=== PATIENT | female | born 1945 | race Caucasian/White ===

== ENCOUNTER → 2017-09-17 07:10 | Outpatient (CLI) | payer MEDICARE, OTHER, SELFPAY ==
[2017-09-17 09:12] LABS: AST(SGOT) 15 U/L (15-37); Alanine Aminotransfer ALT/SGPT 20 U/L (13-56); Albumin, Serum 3.1 g/dL (3.2-5.0); Alkaline Phosphatase 123 U/L (45-117); Anion Gap 6 (5-15); BUN 13 mg/dL (7-18); BUN/Creat Ratio 20.2 RATIO (10-20); Bilirubin, Direct 0.13 mg/dL (0.00-0.30); Calcium,Total 9.6 mg/dL (8.5-10.1); Chloride 105 mmol/L (98-107); Cholesterol 107 mg/dL (200); Creatinine, Serum 0.64 mg/dL (0.55-1.02); EST Glomerular Filtration Rate 96 mL/min (>60); Est Glom Filt Rate - Afr Amer 117 mL/min (>60); Globulin 3.8 g/dL (2.2-4.2); Glucose 91 mg/dL (74-106); High Density Lipoprotein 41 mg/dL; Potassium 3.9 mmol/L (3.5-5.1); Protein, Total 6.9 g/dL (6.4-8.2); Sodium Level 143 mmol/L (136-145); Triglycerides 143 mg/dL; Very Low Density Lipoprotein 29 mg/dL (5-40)
== END ==
PROVIDERS: Family Provider Family Medicine; PCP Family Medicine; Visit Provider Internal Medicine Cardiovascular Disease
DX: I25.10 Atherosclerotic heart disease of native coronary artery without angina pectoris (principal); E78.00 Pure hypercholesterolemia, unspecified
CPT/HCPCS: 36415; 80048; 80061; 80076

== ENCOUNTER → 2018-05-12 07:47 | Outpatient (CLI) | payer MEDICARE, OTHER, SELFPAY ==
[2017-09-03 10:37] VITALS: BMI 36.9
[2018-05-12 09:09] LABS: AST(SGOT) 19 U/L (15-37); Alanine Aminotransfer ALT/SGPT 21 U/L (13-56); Albumin, Serum 3.3 g/dL (3.2-5.0); Alkaline Phosphatase 128 U/L (45-117); Cholesterol 117 mg/dL (200); Globulin 3.6 g/dL (2.2-4.2); High Density Lipoprotein 40 mg/dL; Protein, Total 6.9 g/dL (6.4-8.2); Triglycerides 164 mg/dL; Very Low Density Lipoprotein 33 mg/dL (5-40)
== END ==
PROVIDERS: Family Provider Family Medicine; PCP Family Medicine; Referring Provider Nurse Practitioner Family; Visit Provider Nurse Practitioner Family
DX: E78.5 Hyperlipidemia, unspecified (principal)
CPT/HCPCS: 36415; 80061; 80076

== ENCOUNTER → 2019-08-01 07:49 | Outpatient (CLI) | payer MEDICARE, OTHER, SELFPAY ==
[2018-09-09 10:43] VITALS: BMI 36.9
[2019-08-01 09:11] LABS: AST(SGOT) 17 U/L (15-37); Alanine Aminotransfer ALT/SGPT 18 U/L (13-56); Alkaline Phosphatase 124 U/L (45-117); Bilirubin, Direct 0.21 mg/dL (0.00-0.30); Cholesterol 121 mg/dL (200); Globulin 3.7 g/dL (2.2-4.2); High Density Lipoprotein 40 mg/dL; Protein, Total 6.7 g/dL (6.4-8.2); Triglycerides 122 mg/dL; Very Low Density Lipoprotein 24 mg/dL (5-40)
== END ==
PROVIDERS: PCP Family Medicine; Referring Provider Internal Medicine Cardiovascular Disease; Visit Provider Internal Medicine Cardiovascular Disease
DX: E78.00 Pure hypercholesterolemia, unspecified (principal)
CPT/HCPCS: 36415; 80061; 80076

== ENCOUNTER → 2019-10-06 09:56 | Outpatient (CLI) | payer MEDICARE, OTHER, SELFPAY ==
[2019-09-15 10:29] VITALS: BMI 36.2
--- NOTE | 2019-10-06 09:58 | ECHOD_ITS ---
Reason For Study: HTN Procedure This was a 2D Doppler, Color Flow transthoracic echocardiogram. Exam performed in department. Left Ventricle Normal LV size. Mild concentric left ventricular hypertrophy. Left ventricular systolic function is normal. The estimated ejection fraction is 65 %. Stage 1 diastolic dysfunction. No regional wall motion abnormalities noted. Right Ventricle Normal RV size. Normal systolic function. Atria Normal left atrium. Normal right atrium. Mitral Valve Normal mitral valve. Tricuspid Valve Normal tricuspid valve. Mild tricuspid valve insufficiency. Aortic Valve Normal aortic valve. Trisinus/trileaflet aortic valve. Pulmonic Valve Normal pulmonic valve. Great Vessels Normal aortic root. The pulmonary artery is normal size. Normal inferior vena cava. Pericardium/Pleural No pericardial effusion. MMode/2D Measurements & Calculations LVIDd: 3.3 cm IVSd: 1.3 cm Ao root diam: 3.6 cm LVIDs: 2.3 cm LVPWd: 1.3 cm RVDd: 2.8 cm FS: 30.1 % LAV(MOD-bp): 45.9 ml LVAd ap4: 28.2 cm2 SV(MOD-sp4): 53.1 ml LAV(MOD-bp) Indexed: 24.3 ml/m2 EDV(MOD-sp4): 79.2 ml LAV(MOD-sp2): 40.7 ml EDV(sp4-el): 84.8 ml LAV(MOD-sp4): 43.6 ml LVAs ap4: 14.3 cm2 ESV(MOD-sp4): 26.1 ml ESV(sp4-el): 27.8 ml EF(MOD-sp4): 67.0 % EF(sp4-el): 67.3 % SV(sp4-el): 57.0 ml LA A4 area: 14.9 cm2 LA dimension(2D): 4.0 cm RA A4 area: 10.9 cm2 Time Measurements MV dec time: 0.34 sec Doppler Measurements & Calculations MV E max celestine: 55.1 cm/sec Lat Peak E' Celestine: 2.6 cm/sec Med Peak E' Celestine: 3.0 cm/sec MV A max celestine: 112.8 cm/sec E/E' lat: 20.8 E/E' med: 18.2 MV E/A: 0.49 MV V2 max: 132.2 cm/sec Ao V2 max: 130.2 cm/sec LV V1 max: 124.3 cm/sec MV max P.0 mmHg Ao max P.8 mmHg LV V1 max P.2 mmHg MV V2 mean: 58.0 cm/sec MV mean P.7 mmHg MV V2 VTI: 28.3 cm PA V2 max: 92.3 cm/sec TR max celestine: 213.7 cm/sec TR max P.5 mmHg Interpretation Summary Normal LV size. Mild concentric left ventricular hypertrophy. Left ventricular systolic function is normal. The estimated ejection fraction is 65 %. Mild tricuspid valve insufficiency. Stage 1 diastolic dysfunction. Ordering Physician: Elie Davis Referring Physician: TRACEE HOFFMANN Performed By: Eduin RDCS, SREE, Melanie and Student
== END ==
PROVIDERS: PCP Family Medicine; Referring Provider Internal Medicine Cardiovascular Disease; Visit Provider Internal Medicine Cardiovascular Disease
DX: I25.10 Atherosclerotic heart disease of native coronary artery without angina pectoris (principal); I10 Essential (primary) hypertension
CPT/HCPCS: 93306

== ENCOUNTER → 2020-01-30 16:36 | Outpatient (CLI) | payer MEDICARE, OTHER, SELFPAY ==
[2019-09-15 10:29] VITALS: BMI 36.2
--- NOTE | 2020-01-30 16:39 | RAD_ITS ---
HISTORY: PT GOT SCRATCHED ALL OVER HAND BY A CAT, REDNESS PAIN COMPARISON: None FINDINGS: # of images incl. paperwork: 3 XR Hand Min 3 Views: Right BONE AND JOINTS: No acute fracture or subluxation. Minimal lateral angulation of the DIP joint middle finger appears chronic. There is joint space narrowing and osteophyte formation SOFT TISSUES: Unremarkable. No radiopaque foreign body. RAD/Hand Min 3 Views IMPRESSION: No acute pathology If symptoms persist, repeat study in 10-14 days or sooner if clinically indicate at [id number] Reported and signed by: Fidelina Arias DO Electronically Signed: Fidelina Arias DO at 5:52 EST Tel , Service support ,
== END ==
PROVIDERS: PCP Family Medicine; Referring Provider Family Medicine; Visit Provider Family Medicine
DX: M25.541 Pain in joints of right hand (principal)
CPT/HCPCS: 73130

== ENCOUNTER → 2020-03-16 11:43 | Outpatient (CLI) | payer MEDICARE, OTHER, SELFPAY ==
[2019-09-15 10:29] VITALS: BMI 36.2
--- NOTE | 2020-03-16 11:49 | VDLE_ITS ---
Reason For Study: Pain RLE RIGHT GSV is normal. CFV is compressible, spontaneous, phasic, competent and demonstrates normal augmentation. FV is compressible, spontaneous, phasic, competent and demonstrates normal augmentation. POP V is compressible, spontaneous, phasic, competent and demonstrates normal augmentation. T/P Trunk is compressible. PTV is compressible. RT PerV is compressible. Procedure This is a venous duplex using B-mode, color flow and spectral Doppler. Exam performed in department. A preliminary report was called and/or faxed to Antoine. Interpretation Summary Deep veins of the right lower extremity are patent and compressible segmentally. There is no evidence of right lower extremity deep vein thrombosis. Valvular competence appears intact within the proximal deep venous system on the right . The right great saphenous vein appears patent and compressible segmentally. Ordering Physician: Jess Schultz Referring Physician: Lilly Fletcher M.D. Performed By: Yina Diaz RVT
== END ==
PROVIDERS: PCP Family Medicine; Referring Provider Registered Nurse; Visit Provider Registered Nurse
DX: M79.661 Pain in right lower leg (principal)
CPT/HCPCS: 93971

== ENCOUNTER → 2020-07-11 07:48 | Outpatient (CLI) | payer MEDICARE, SELFPAY ==
[2019-09-15 10:29] VITALS: BMI 36.2
[2020-07-11 09:02] LABS: AST(SGOT) 9 U/L (15-37); Alanine Aminotransfer ALT/SGPT 18 U/L (13-56); Alkaline Phosphatase 117 U/L (45-117); Bilirubin, Direct 0.15 mg/dL (0.00-0.30); Cholesterol 122 mg/dL (200); Globulin 3.7 g/dL (2.2-4.2); High Density Lipoprotein 49 mg/dL; Protein, Total 6.7 g/dL (6.4-8.2); Triglycerides 138 mg/dL; Very Low Density Lipoprotein 28 mg/dL (5-40)
== END ==
PROVIDERS: PCP Family Medicine; Referring Provider Internal Medicine Cardiovascular Disease; Visit Provider Internal Medicine Cardiovascular Disease
DX: E78.00 Pure hypercholesterolemia, unspecified (principal)
CPT/HCPCS: 36415; 80061; 80076

== ENCOUNTER 2020-08-03 13:06 | Emergency (ER) | payer MEDICARE, SELFPAY ==
[2019-09-15 10:29] VITALS: BMI 36.2
[2020-08-03 13:07] VITALS: BP 157/75; PULSE 72; RESP 18; TEMP 36.6; O2SAT 98; BMI 40.6
--- NOTE | 2020-08-03 13:29 | EKG12_ITS ---
Test Reason : CP Blood Pressure : / mmHG Vent. Rate : 064 BPM Atrial Rate : 064 BPM P-R Int : 142 ms QRS Dur : 110 ms QT Int : 396 ms P-R-T Axes : 056 -22 027 degrees QTc Int : 408 ms Normal sinus rhythm Possible Left atrial enlargement Incomplete right bundle branch block Left ventricular hypertrophy Cannot rule out Septal infarct , age undetermined Abnormal ECG Confirmed by CLAUDIA OHARA, FILIPE ([id number]), assignment desk editor MU CERVANTES ([id number]) on 08/07/2020 10:01:27 AM Referred By: ARSEN Confirmed By:FILIPE TAYLOR MD
--- NOTE | 2020-08-03 13:32 | ED.VIS.CHEST ---
HPI History of Present Illness Chief Complaint: Palpitations Informant: patient Onset/Context/Timing Onset: Today Timing: Intermittent Location: Substernal Current Severity: Mild Maximum Severity: Mild Narrative Narrative: 75-year-old female history of CAD, DC with prior angioplasty and history of hypertension. States that around 3:00 this morning she awoke and accelerated heart rate that is since resolved. She has had some intermittent chest tightness. She denies any shortness of breath. She denies any recent illness. She denies any nausea, vomiting, diarrhea or fever. Prior Similar Symptoms: Yes Recent Illness/Hospitalization: No PE Risk Factors: Negative for Recent Travel/Surgery, Recent Immobilization, Prior DVT or PE, Cancer and OCP + Smoking + >/=35 TAD Risk Factors: Negative for Marfan's Syndrome [facility] Medical History (Updated 08/03/20 @ 17:[address] Jay Hair MD) Acute coronary syndrome Atherosclerotic heart disease of [place] coronary artery without angina pectoris Chest pain Essential (primary) hypertension GERD (gastroesophageal reflux disease) Heart murmur, systolic Hyperlipidemia Morbid obesity with BMI of 40.0-44.9, adult Obesity Osteoarthritis Home Medications aspirin 81 mg PO QHS 10/25/15 [History Last Taken 10/24/15] nitroglycerin 0.4 mg SUBLINGUAL Q5M PRN #1 tab 10/26/15 [Rx Last Taken Unknown] potassium gluconate 595 mg (99 mg) tablet 595 mg PO DAILY PRN 09/09/18 [History Last Taken Unknown] atorvastatin 40 mg tablet 40 mg PO QHS #90 tab 09/09/19 [Rx Last Taken Unknown] carvedilol 12.5 mg tablet 12.5 mg PO BID #180 tab 09/09/19 [Rx Last Taken Unknown] hydrochlorothiazide 25 mg tablet 25 mg PO DAILY #90 tab 09/15/19 [Rx Last Taken Unknown] lisinopril 20 mg tablet 20 mg PO BID #180 tab 09/15/19 [Rx Last Taken Unknown] omeprazole 20 mg capsule,delayed release 20 mg PO DAILY #90 cap 09/15/19 [Rx Last Taken Unknown] Allergy/AdvReac Type Severity Reaction Status Date / Time No Known Allergies Allergy Verified 09/15/19 10:30 Family History Father CAD (coronary artery disease) Mother CHF (congestive heart failure) Sister Hypertension Surgical History History of coronary angioplasty (09/20/07) History of laparoscopic cholecystectomy History of left heart catheterization (06/04/08) History of total hysterectomy Social History Smoking Status: Never smoker alcohol intake: never substance use type: does not use ROS ROS ED ROS Narrative Patient denies any recent illness. Review of Systems ROS Unobtainable: Denies due to encephalopathy Constitutional Constitutional ED: Denies chills or fever(s) Eyes Eyes: Reports none ENT ENT ED: Denies ear pain or sore throat Cardiovascular Cardiovascular: Reports as per HPI, chest pain and palpitations Respiratory/Chest Respiratory/Chest: Denies cough or dyspnea Gastrointestinal Gastrointestinal: Denies abdominal pain, diarrhea, nausea or vomiting Genitourinary Genitourinary ED: Denies dysuria Musculoskeletal Musculoskeletal: Reports myalgias Integumentary Denies rash Neurologic Neurologic: Denies headache(s) Psychiatric Psychiatric: Denies depression Endocrine Endocrinology: Denies polyuria Hematologic/Lymphatic Hematologic/Lymphatic: Denies easy bruising Allergic/Immunologic Allergic/Immunologic ED: Denies urticaria EXAM Physical Exam Narrative Exam Narrative: Older female no acute distress vital signs stable afebrile. Exam unremarkable. Const Vital Signs: 08/03/20 13:07 08/03/20 13:39 08/03/20 13:40 Temperature 98 F Temperature Source Temporal Pulse Rate 72 Respiratory Rate 18 Respiratory Effort Normal Non-Labored Respiratory Pattern Normal Blood Pressure 157/75 H Blood Pressure Mean 102 Pulse Ox 98 Oxygen Delivery Method Room Air Room Air 08/03/20 16:22 Temperature Temperature Source Pulse Rate 62 Respiratory Rate 17 Respiratory Effort Respiratory Pattern Blood Pressure 154/75 H Blood Pressure Mean 101 Pulse Ox 97 Oxygen Delivery Method Room Air Positive well nourished and well developed General Appearance ED: well developed HEENT normocephalic and atraumatic; Negative for tenderness Eyes PERRL and EOMs intact bilaterally Neck no lymphadenopathy, supple and no JVD General: Negative for tenderness Chest Wall inspection of chest normal Resp normal respiratory effort and clear to auscultation bilaterally Cardio regular rate, regular rhythm, S1 normal heart sound, S2 normal heart sound and no murmurs Rate: Negative for bradycardia or tachycardic Rhythm: Negative for abnormal rhythm GI normal to inspection, nondistended, normoactive bowel sounds, soft to palpation, non-tender, non-distended and no masses Back/Spine no CVA tenderness Extremity normal to inspection General Extremety ED: Negative for edema or tenderness General Extremity: Negative for edema Neuro oriented x3 and CN's II-XII intact bilaterally Sensorium / Orientation: awake, alert, oriented to person, oriented to place and oriented to time Motor Exam: strength 5/5 throughout Psych mental status grossly normal Skin no rashes or lesions noted Heart Score History: Slightly/Non-Suspicious ECG: Normal Age: >/= 65 years Risk Factors: 1 or 2 Risk Factors Score: 3 MDM MDM MDM Narrative Medical decision making narrative: Older female no acute distress. Exam unremarkable. Undergo cardiac work-up. Her initial EKG is a sinus rhythm rate of 64. Incomplete right bundle branch block. Unchanged from prior EKG from October 2015. Repeat exam patient is doing well at 4:57 PM. Patient states she is feeling fine. Her exam is unchanged. She states that it feels like she may have had a chest cold. She comfortable with her being discharged home. Lab Data Lab results narrative: CBC unremarkable white count of 7 and hemoglobin of 12.9. Electrolytes unremarkable normal creatinine and gap. Troponin normal. Labs: Laboratory Results - last 24 hr 08/03/20 08/03/20 08/03/20 13:36 13:36 13:53 WBC Cancelled 7.0 Corrected WBC Cancelled RBC Cancelled 4.33 Hgb Cancelled 12.9 Hct Cancelled 40.1 MCV Cancelled 92.6 MCH Cancelled 29.8 MCHC Cancelled 32.2 RDW Std Deviation Cancelled 41.2 RDW Coeff of Cory Cancelled 12.2 Plt Count Cancelled 228 MPV Cancelled 9.6 Immature Gran % (Auto) Cancelled 0.400 Neut % (Auto) Cancelled 78.5 H Lymph % (Auto) Cancelled 11.7 L Evangeline % (Auto) Cancelled 8.1 Eos % (Auto) Cancelled 1.0 Baso % (Auto) Cancelled 0.3 Absolute Neuts (auto) Cancelled 5.5 Absolute Lymphs (auto) Cancelled 0.82 L Total Counted Cancelled Neutrophils % (Manual) Cancelled Band Neutrophils % Cancelled Lymphocytes % (Manual) Cancelled Monocytes % (Manual) Cancelled Eosinophils % (Manual) Cancelled Basophils % (Manual) Cancelled Metamyelocytes % Cancelled Myelocytes % Cancelled Promyelocytes % Cancelled Blast Cells % Cancelled Plasma Cell % (Manual) Cancelled Other Cells % Cancelled Nucleated RBC % Cancelled 0 Nucleated RBCs/100 WBC Cancelled Differential Comment Cancelled Diff Path Review Cancelled Hypersegmented Neuts Cancelled Atypical Lymphocytes Cancelled Reactive Lymphocytes Cancelled Smudge Cells Cancelled Toxic Granulation Cancelled Toxic Vacuolation Cancelled Dohle Bodies Cancelled [place] Rods Cancelled Platelet Estimate Cancelled Plt Morphology Comment Cancelled RBC Morphology Cancelled Polychromasia Cancelled Hypochromasia Cancelled Poikilocytosis Cancelled Basophilic Stippling Cancelled Anisocytosis Cancelled Microcytosis Cancelled Macrocytosis Cancelled Spherocytes Cancelled Sickle Cells Cancelled Target Cells Cancelled Tear Drop Cells Cancelled Ovalocytes Cancelled Stomatocytes Cancelled Reich-Derwood Bodies Cancelled Blanka Cells Cancelled Bite Cells Cancelled Crenated Cell Cancelled Acanthocytes (Spur) Cancelled Rouleaux Cancelled Schistocytes Cancelled Sodium 139 Potassium 4.6 Chloride 107 Carbon Dioxide 28.0 Anion Gap 4 L BUN 15 Creatinine 0.56 Estim Creat Clear Calc 34.38 Est GFR (MDRD) Af Amer 134 Est GFR (MDRD) Non-Af 111 BUN/Creatinine Ratio 26.6 H Glucose 107 H Calcium 10.0 Troponin I < 0.015 Radiography Chest X-Ray - ED: 1 View, Read by ED Physician, Read by Radiologist, Heart, Lungs, Mediastinum, Bony Structures, No Acute Disease and Chronic Changes Diagnostic Testing: Radiology Impression Chest X-Ray 08/03/20 14:02 IMPRESSION: Mild cardiomegaly. The lungs are clear. Electronically Signed: Andrew Paz MD at 14:17 EDT , Service support , EKG Initial EKG: Attestation: I personally reviewed and interpreted this EKG as follows: Interpretation: Sinus Rhythm and No Acute Injury Pattern Prior EKG tracings: available for review Prior: Unchanged Treatment and Re-Evaluation Comments:: Normal sinus rhythm rate of 64 with an incomplete right bundle branch block. Unchanged from prior EKGs. Discharge Plan Triage Chief Complaint: Palpitations ED Provider: Jay Hair Dx/Rx/DC Orders Clinical Impression: Chest pain, Heart palpitations Instructions: ED Chest Pain, Uncertain Cause, ED Palpitations Prescriptions: No Action potassium gluconate 595 mg (99 mg) tablet 595 mg PO DAILY PRNRF: 0 omeprazole 20 mg capsule,delayed release(DR/EC) 20 mg PO DAILY Qty: 90 RF: 3 lisinopril 20 mg tablet 20 mg PO BID Qty: 180 RF: 4 hydrochlorothiazide 25 mg tablet 25 mg PO DAILY Qty: 90 RF: 3 aspirin 81 MG tablet,chewable 81 mg PO QHS RF: 0 nitroglycerin 0.4 MG tablet 0.4 mg SUBLINGUAL Q5M PRN (Reason: Chest Pain) Qty: 1 RF: 0 atorvastatin 40 mg tablet 40 mg PO QHS Qty: 90 RF: 3 carvedilol 12.5 mg tablet 12.5 mg PO BID Qty: 180 RF: 3 Primary Care Provider: Lilly Fletcher Referrals: Lilly Fletcher MD [Primary Care Provider] - 3-5 Days if not improving Activity Restrictions/Additional Instructions: Return emergency room if you are feeling worse. Follow-up your primary care physician. All your test today are normal. Disposition Disposition: Home, self care
[2020-08-03] MEDS: Aspirin 81 MG TAB.CHEW 324 MG PO (13:55)
[2020-08-03 14:02] LABS: Anion Gap 4 (5-15); BUN 15 mg/dL (7-18); BUN/Creat Ratio 26.6 RATIO (10-20); Chloride 107 mmol/L (98-107); Creatinine, Serum 0.56 mg/dL (0.55-1.02); EST Glomerular Filtration Rate 111 mL/min (>60); Est Glom Filt Rate - Afr Amer 134 mL/min (>60); Estimated Creatinine Clearance 34.38 ml/min; Glucose 107 mg/dL (74-106); Potassium 4.6 mmol/L (3.5-5.1); Sodium Level 139 mmol/L (136-145)
--- NOTE | 2020-08-03 14:02 | RAD_ITS ---
STUDY: X-RAY CHEST REASON FOR EXAM: Female, 75 years old. Chest pain TECHNIQUE: Single AP portable view of the chest. COMPARISON: Comparison is made with prior study dated 10/25/2015. FINDINGS: EKG electrodes are seen. The lungs are clear and expanded. There is no demonstrated pleural abnormality. There is mild cardiac enlargement. Normal mediastinum and mindy. Normal visualized pulmonary arteries. There is atherosclerotic calcification of the aortic arch with tortuosity. There are diffuse degenerative changes of the visualized thoracic spine. Mild dextroscoliosis. There is degenerative osteoarthritis of the bilateral shoulders. There is no demonstrated abnormality of the visualized soft tissue structures of the upper abdomen. RAD/Chest 1 View (Portable) IMPRESSION: Mild cardiomegaly. The lungs are clear. Electronically Signed: Andrew Paz MD at 14:17 EDT , Service support ,
[2020-08-03 14:04] LABS: Absolute Lymphocyte Count 0.82 X10^3/uL (0.83-4.51); Absolute Neutrophil Count 5.5 X10^3/uL (2.0-7.7); Basophil# 0.02 X10^3/uL; Basophil% 0.3 % (0-1); Eosinophil# 0.07 X10^3/uL; Hematocrit 40.1 % (37-47); Hemoglobin 12.9 g/dL (12.0-15.0); Lymphocyte # 0.82 X10^3/ul (0.83-4.51); Lymphocyte % 11.7 % (19-41); Mean Corp Hgb Conc 32.2 g/dL (32-36); Mean Corpuscular Hgb 29.8 pg (27.0-32.0); Mean Corpuscular Volume 92.6 fL (81-99); Mean Platelet Vol. 9.6 fl (6.2-12.0); Monocyte# 0.57 X10^3/uL; Monocyte% 8.1 % (0-10); NRBC Flagged by Analyzer 0 % (0-5); Neutrophil # 5.49 X10^3/uL (2.7-7.7); Neutrophil % 78.5 % (47-70); Platelet Count 228 K/mm3 (150-450); RBC Distribution Width CV 12.2 % (11.6-14.6); RBC Distribution Width SD 41.2 fl (35.1-43.9); Red Blood Count 4.33 M/mm3 (4.2-5.4)
[2020-08-03 16:22] VITALS: BP 154/75; PULSE 62; RESP 17; O2SAT 97
[2020-08-03 17:04] VITALS: BP 168/76; PULSE 65; RESP 14; O2SAT 97
== END 2020-08-03 17:13 | disposition home or self-care (01) ==
PROVIDERS: Emergency Provider Emergency Medicine; PCP Family Medicine
DX: R07.9 Chest pain, unspecified (principal); R00.2 Palpitations; I25.10 Atherosclerotic heart disease of native coronary artery without angina pectoris; E66.01 Morbid (severe) obesity due to excess calories; Z68.41 Body mass index [BMI] 40.0-44.9, adult
CPT/HCPCS: 71045; 80048; 84484; 85025; 93005; 99285; A4216

== ENCOUNTER 2021-05-08 06:58 | Outpatient (CLI) | payer MEDICARE, SELFPAY ==
--- NOTE | 2021-05-08 17:26 | STRESSREP ---
Stress Test Report Pharmacologic myocardial perfusion stress test. 75-year-old lady with a history of coronary artery disease. Stress protocol: Resting KG demonstrates normal sinus rhythm with a rate of 65 bpm normal intervals are noted resting blood pressure is 128/94 mmHg. 0.4 mg of regadenoson was infused per usual protocol followed by rapid intravenous saline flush injection continuous EKG monitoring was performed. The maximum heart rate attained was 90 bpm which was 62% of max impact at heart rate the maximum workload was 1 metabolic equivalent. At rest there were no ST or T wave changes noted suggest abnormal flow reserve and at peak infusion no ST or T wave changes were noted to suggest abnormal flow reserve. No clinical angina was noted. Myocardial perfusion protocol. 14.3 mCi of technetium 99m sestamibi was injected at rest. 0.4 mg of regadenoson was infused per usual protocol. At peak infusion 44.6 mCi of technetium 99m sestamibi was injected stress images were obtained stress and rest images were reconstructed and compared in the short axis vertical long and horizontal long axis. Gated images were also obtained Perfusion SPECT analysis: Review of the stress images demonstrate normal uptake of tracer noted in all areas of the myocardium. The resting images demonstrate normal uptake of tracer noted in all areas of the myocardium. No areas of reversibility are noted to suggest ischemia and no previous infarct is noted. Gated SPECT analysis: The gated ejection fraction is noted to be 80%. Conclusion: Normal pharmacologic myocardial perfusion stress test. Preserved ejection fraction.
== END 2021-05-08 23:59 | disposition home or self-care (01) ==
LOC: CVS 06:59
PROVIDERS: PCP Family Medicine; Referring Provider Nurse Practitioner Gerontology; Visit Provider Nurse Practitioner Gerontology
DX: I25.10 Atherosclerotic heart disease of native coronary artery without angina pectoris (principal)
CPT/HCPCS: 78452; 93017; A9500; A4216; J2785

== ENCOUNTER 2021-05-30 08:41 | Outpatient (CLI) | payer MEDICARE, SELFPAY ==
[2021-05-30 10:03] LABS: AST(SGOT) 13 U/L (15-37); Alanine Aminotransfer ALT/SGPT 20 U/L (13-56); Albumin, Serum 3.1 g/dL (3.2-5.0); Alkaline Phosphatase 101 U/L (45-117); Bilirubin, Direct 0.19 mg/dL (0.00-0.30); Cholesterol 109 mg/dL (200); Globulin 3.2 g/dL (2.2-4.2); High Density Lipoprotein 41 mg/dL; Protein, Total 6.3 g/dL (6.4-8.2); Triglycerides 139 mg/dL; Very Low Density Lipoprotein 28 mg/dL (5-40)
== END 2021-05-30 23:59 | disposition home or self-care (01) ==
LOC: LAB 08:42
PROVIDERS: PCP Family Medicine; Referring Provider Nurse Practitioner Gerontology; Visit Provider Nurse Practitioner Gerontology
DX: E78.00 Pure hypercholesterolemia, unspecified (principal)
CPT/HCPCS: 36415; 80061; 80076

== ENCOUNTER 2021-10-12 13:21 | Emergency (ER) | payer MEDICARE, SELFPAY ==
[2021-10-12 13:21] VITALS: BP 153/101; PULSE 71; RESP 18; TEMP 36.7; O2SAT 93; BMI 45.7
--- NOTE | 2021-10-12 13:30 | RAD_ITS ---
STUDY: X-RAY CHEST REASON FOR EXAM: Female, 76 years old. Chest pain TECHNIQUE: Single AP portable view of the chest. COMPARISON: 08/03/2020. FINDINGS: The lungs are clear and expanded. There is no demonstrated pleural abnormality. To mild enlargement of the cardiac silhouette. Normal mediastinum and mindy. Normal visualized pulmonary arteries. There is atherosclerotic calcification of the aortic arch with tortuosity. Stable soft tissues and osseous structures. There is no demonstrated abnormality of the visualized soft tissue structures of the upper abdomen. RAD/Chest 1 View (Portable) IMPRESSION: No active pulmonary disease. Electronically Signed: Emir Temple MD at 14:38 EDT ,
--- NOTE | 2021-10-12 13:30 | EKG12_ITS ---
Test Reason : CP Blood Pressure : / mmHG Vent. Rate : 065 BPM Atrial Rate : 065 BPM P-R Int : 124 ms QRS Dur : 104 ms QT Int : 410 ms P-R-T Axes : 051 -24 023 degrees QTc Int : 426 ms Normal sinus rhythm Incomplete right bundle branch block Minimal voltage criteria for LVH, may be normal variant ( R in aVL ) Septal infarct , age undetermined Abnormal ECG Confirmed by CLAUDIA OHARA, FILIPE ([id number]), newspaper or periodical editor MU CERVANTES ([id number]) on 10/14/2021 10:03:49 AM Referred By: Enzo Confirmed By:FILIPE TAYLOR MD
--- NOTE | 2021-10-12 13:47 | ED.VIS.CHEST ---
HPI <PEDRITO Delacruz - Last Filed: 10/12/21 17:54> History of Present Illness Chief Complaint: Chest Pain Narrative Narrative: 76-year-old female with PMH of HTN, HLD, CAD, GERD presents with 4-day history of intermittent chest pain. She feels midsternal chest pressure that is sometimes worse after eating. Its not exertional or pleuritic. She does feel more winded after walking which takes 3 minutes or so to resolve but she does not feel short of breath when she gets the chest pain. No nausea, vomiting, or diaphoresis. Initially she thought it was her reflux and it was improving after taking Tums, but today the pain seemed worse and did not resolve with Tums which prompted her to come in. She is on a PPI. Denies smoking or alcohol use. She had a small heart attack 15 years ago that did not require stents or bypass. She reports a normal stress test and echo with Dr. Davis this year. She has no history of DVT/PE or risk factors. <Dr. Trino Giraldo DO - Last Filed: 10/13/21 09:27> Narrative Narrative: 76-year-old female with PMH of HTN, HLD, CAD, GERD presents with 4-day history of intermittent chest pain. She feels midsternal chest pressure that is sometimes worse after eating. She also describes burning across her chest. Its not exertional or pleuritic. She does feel more winded after walking which takes 3 minutes or so to resolve but she does not feel short of breath when she gets the chest pain. No nausea, vomiting, or diaphoresis. Initially she thought it was her reflux and it was improving after taking Tums, but today the pain seemed worse and did not resolve with Tums which prompted her to come in. She is on a PPI. Denies smoking or alcohol use. She had a small heart attack 15 years ago that did not require stents or bypass. She reports a normal stress test and echo with Dr. Davis this year. She has no history of DVT/PE or risk factors. PFSH <PEDRITO Delacruz - Last Filed: 10/12/21 17:54> [facility] Medical History (Updated 10/12/21 @ 16:43 by PEDRITO Delacruz) Atherosclerotic heart disease of [place] coronary artery without angina pectoris Essential (primary) hypertension GERD (gastroesophageal reflux disease) Hyperlipidemia Morbid obesity with BMI of 40.0-44.9, adult Obesity Osteoarthritis Home Medications aspirin 81 mg chewable tablet 81 mg PO QHS 10/25/15 [History Last Taken 10/24/15] potassium gluconate 595 mg (99 mg) tablet 595 mg PO DAILY PRN for low levels 09/09/18 [History Last Taken Unknown] atorvastatin 40 mg tablet 40 mg PO QHS #90 tabs 04/18/21 [Rx Last Taken Unknown] lisinopril 20 mg tablet 20 mg PO BID #180 tabs 04/18/21 [Rx Last Taken Unknown] nitroglycerin 0.4 mg sublingual tablet 0.4 mg sublingual Q5M PRN Chest Pain #25 tabs 04/18/21 [Rx Last Taken Unknown] omeprazole 20 mg capsule,delayed release 20 mg PO DAILY #90 caps 09/10/21 [Rx Last Taken Unknown] carvedilol 12.5 mg tablet 12.5 mg PO BID #180 tabs 09/27/21 [Rx Last Taken Unknown] sucralfate 1 gram tablet (Carafate) 1 g PO 4X/DAY 14 days #56 tabs 10/12/21 [Rx Last Taken Unknown] Allergy/AdvReac Type Severity Reaction Status Date / Time Hydrochlorothiazide AdvReac Intermediate Urine Uncoded 10/12/21 13:23 incontinence, constipation Family History Father CAD (coronary artery disease) Mother CHF (congestive heart failure) Sister Hypertension Surgical History (Updated 10/12/21 @ 14:46 by Vannessa Fiore) History of cholecystectomy History of coronary angioplasty (09/20/07) History of laparoscopic cholecystectomy History of left heart catheterization (06/04/08) History of total hysterectomy Social History Smoking Status: Never smoker alcohol intake: never substance use type: does not use ROS <PEDRITO Delacruz - Last Filed: 10/12/21 17:54> ROS ED ROS Narrative Constitutional: Negative for fever, chills, malaise. Eyes: Negative for visual change. ENT: Negative for sore throat, ear pain, rhinorrhea. CVS: Positive for chest pain. Negative for palpitations, syncope. Respiratory: Positive for shortness of breath on exertion. Negative for cough, orthopnea. GI: Negative for abdominal pain, nausea, vomiting, diarrhea, constipation, melena, hematochezia. : Negative for dysuria, hematuria or frequency. Neuro: Negative for headache, motor/sensory dysfunction. Skin: Negative for rash, abscess, or wound. Musc: Negative for joint pain, swelling, trauma. Heme: Negative for easy bruising, bleeding, lymphadenopathy. EXAM <PEDRITO Delacruz - Last Filed: 10/12/21 17:54> Physical Exam Narrative Exam Narrative: CONST: Patient sitting in no acute distress. EYES: Normal inspection. NECK: Normal inspection. RESP: No respiratory distress, CTAB. CVS: Regular rate and rhythm, no murmur, no gallop. ABD: Soft and nontender, no guarding or rebound, nondistended, no hepatosplenomegaly. SKIN: Color normal, no rash, warm, dry, intact. EXTREMITIES: Normal appearance, trace pitting edema both ankles?chronic. NEURO: Oriented x4. PSYCH: Normal affect. Const Vital Signs: 10/12/21 13:21 10/12/21 14:43 10/12/21 14:43 Temperature 98.1 F Temperature Source Oral Pulse Rate 71 60 Respiratory Rate 18 20 H Respiratory Effort Normal Non-Labored Blood Pressure 153/101 H 184/91 H Blood Pressure Mean 118 122 Pulse Ox 93 96 Oxygen Delivery Method Room Air Room Air 10/12/21 17:04 10/12/21 18:12 Temperature Temperature Source Pulse Rate 63 66 Respiratory Rate 17 17 Respiratory Effort Blood Pressure 168/95 H 169/98 H Blood Pressure Mean 119 Pulse Ox 98 97 Oxygen Delivery Method Room Air <Dr. Trino Giraldo DO - Last Filed: 10/13/21 09:27> Physical Exam Const Vital Signs: 10/12/21 13:21 10/12/21 14:43 10/12/21 14:43 Temperature 98.1 F Temperature Source Oral Pulse Rate 71 60 Respiratory Rate 18 20 H Respiratory Effort Normal Non-Labored Blood Pressure 153/101 H 184/91 H Blood Pressure Mean 118 122 Pulse Ox 93 96 Oxygen Delivery Method Room Air Room Air 10/12/21 17:04 10/12/21 18:12 Temperature Temperature Source Pulse Rate 63 66 Respiratory Rate 17 17 Respiratory Effort Blood Pressure 168/95 H 169/98 H Blood Pressure Mean 119 Pulse Ox 98 97 Oxygen Delivery Method Room Air <PEDRITO Delacruz - Last Filed: 10/12/21 17:54> Heart Score History: Slightly/Non-Suspicious ECG: Normal Age: >/= 65 years Risk Factors: >/= 3 Risk Factors or History of CAD Troponin: </= Normal Limit Score: 4 <Dr. Trino Giraldo DO - Last Filed: 10/13/21 09:27> Heart Score Score: 4 MDM <PEDRITO Delacruz - Last Filed: 10/12/21 17:54> MDM MDM Narrative Medical decision making narrative: Patient presents with chest pain. She appears well and nontoxic. BP 153/101, otherwise normal vital signs. Medical exam is unremarkable. EKG is sinus rhythm with no ischemia and troponins are normal at 10, delta 13. Basic labs unremarkable. CXR negative. She was treated with aspirin and Pepcid and is feeling improved. I suspect this is GERD. Records also show she had a normal stress test on 05/08/21 and with a heart score of 4 I have very low concern for cardiac etiology. She is already on a PPI so I prescribed Carafate. I recommended primary care follow-up or to return if symptoms worsen and she was discharged in stable condition. Lab Data Attestation: I reviewed the patient's lab results. Labs: Laboratory Results - last 24 hr 10/12/21 10/12/21 10/12/21 14:25 14:25 17:20 WBC 6.7 RBC 4.54 Hgb 13.5 Hct 42.1 MCV 92.7 MCH 29.7 MCHC 32.1 RDW Std Deviation 42.5 RDW Coeff of Cory 12.6 Plt Count 209 MPV 9.5 Immature Gran % (Auto) 0.400 Neut % (Auto) 77.9 H Lymph % (Auto) 12.5 L [place] % (Auto) 7.9 Eos % (Auto) 1.2 Baso % (Auto) 0.1 Absolute Neuts (auto) 5.2 Absolute Lymphs (auto) 0.84 Nucleated RBC % 0 Sodium 140 Potassium 4.5 Chloride 107 Carbon Dioxide 33.0 H Anion Gap 0 L BUN 15 Creatinine 0.56 Estim Creat Clear Calc 73.85 Est GFR (MDRD) Af Amer 134 Est GFR (MDRD) Non-Af 111 BUN/Creatinine Ratio 26.6 H Glucose 110 H Calcium 10.1 Troponin I High Sens 10 13 Radiography Chest X-Ray - ED: 1 View, Read by ED Physician, Read by Radiologist, Normal, Heart, Lungs, Mediastinum, Bony Structures and No Acute Disease Diagnostic Testing: Clinical Impression(s) from Imaging Studies Chest X-Ray 10/12/21 13:30 IMPRESSION: No active pulmonary disease. Electronically Signed: Emir Temple MD at 14:38 EDT , EKG Initial EKG: Attestation: I personally reviewed and interpreted this EKG as follows: Interpretation: Sinus Rhythm and No Acute Injury Pattern Comments: Normal sinus rhythm at 65 bpm, incomplete RBBB, no acute ischemia Prior EKG tracings: available for review Prior: Unchanged <Dr. Trino Giraldo, DO - Last Filed: 10/13/21 09:27> MDM MDM Narrative Medical decision making narrative: This patient was seen with a PA/MARKETING BUSINESS ANALYST Individually assessed they patient including history and physical. I have reviewed everything on the chart that is available and agree with the documentation provided by the PA/MARKETING BUSINESS ANALYST including discussion about the assessment, treatment plan, discussion, and return precautions. 76-year-old female presenting for atypical chest pain. She feels a pressure and burning across her chest and has symptoms consistent with dyspepsia. Heart score of 4. EKG on my interpretation shows normal sinus rhythm without sign of ischemic change or dysrhythmia. Chest x-ray my interpretation is no acute cardiopulmonary process and the radiologist agree cardiac work-up ultimately is normal. She had 2 negative troponins. She was treated with Pepcid and feels improved currently. She will be discharged home with Carafate. Patient presents with chest pain. She appears well and nontoxic. BP 153/101, otherwise normal vital signs. Medical exam is unremarkable. EKG is sinus rhythm with no ischemia and troponins are normal at 10, delta 13. Basic labs unremarkable. CXR negative. She was treated with aspirin and Pepcid and is feeling improved. I suspect this is GERD. Records also show she had a normal stress test on 05/08/21 and with a heart score of 4 I have very low concern for cardiac etiology. She is already on a PPI so I prescribed Carafate. I recommended primary care follow-up or to return if symptoms worsen and she was discharged in stable condition. Lab Data Labs: Laboratory Results - last 24 hr 10/12/21 10/12/21 10/12/21 14:25 14:25 17:20 WBC 6.7 RBC 4.54 Hgb 13.5 Hct 42.1 MCV 92.7 MCH 29.7 MCHC 32.1 RDW Std Deviation 42.5 RDW Coeff of Cory 12.6 Plt Count 209 MPV 9.5 Immature Gran % (Auto) 0.400 Neut % (Auto) 77.9 H Lymph % (Auto) 12.5 L [place] % (Auto) 7.9 Eos % (Auto) 1.2 Baso % (Auto) 0.1 Absolute Neuts (auto) 5.2 Absolute Lymphs (auto) 0.84 Nucleated RBC % 0 Sodium 140 Potassium 4.5 Chloride 107 Carbon Dioxide 33.0 H Anion Gap 0 L BUN 15 Creatinine 0.56 Estim Creat Clear Calc 73.85 Est GFR (MDRD) Af Amer 134 Est GFR (MDRD) Non-Af 111 BUN/Creatinine Ratio 26.6 H Glucose 110 H Calcium 10.1 Troponin I High Sens 10 13 Radiography Diagnostic Testing: Clinical Impression(s) from Imaging Studies Chest X-Ray 10/12/21 13:30 IMPRESSION: No active pulmonary disease. Electronically Signed: Emir Temple MD at 14:38 EDT , Discharge Plan Triage Chief Complaint: Chest Pain ED Midlevel Provider: Jennifer Meléndez ED Provider: Trino Giraldo Dx/Rx/DC Orders Clinical Impression: Atypical chest pain, Gastroesophageal reflux disease Instructions: ED Chest Pain, Noncardiac, ED GERD (Adult) Prescriptions: New sucralfate [Carafate] 1 gram tablet 1 g PO 4X/DAY 14 Days Qty: 56 0RF Rx Instructions: 1 g orally before each meal and at bedtime No Action potassium gluconate 595 mg (99 mg) tablet 595 mg PO DAILY PRN (Reason: for low levels) atorvastatin 40 mg tablet 40 mg PO QHS Qty: 90 3RF lisinopril 20 mg tablet 20 mg PO BID Qty: 180 4RF nitroglycerin 0.4 mg tablet, sublingual 0.4 mg SUBLINGUAL Q5M PRN (Reason: Chest Pain) Qty: 25 2RF Label Comments: chest pain aspirin 81 MG tablet,chewable 81 mg PO QHS Label Comments: [facility] omeprazole 20 mg capsule,delayed release(DR/EC) 20 mg PO DAILY Qty: 90 3RF carvedilol 12.5 mg tablet 12.5 mg PO BID Qty: 180 3RF Rx Instructions: must administer with a meal/food Primary Care Provider: Lilly Fletcher Referrals: Lilly Fletcher MD [Primary Care Provider] - Activity Restrictions/Additional Instructions: Your work up today showed no sign of heart attack. I think your chest pain is from GERD or acid reflux. Continue your home medication and I prescribed Carafate to take before each meal and at bedtime. Please follow-up with your primary care doctor. Disposition Disposition: Home, Self Care Discharge Date/Time: 10/12/21 18:14
[2021-10-12 14:37] LABS: Absolute Lymphocyte Count 0.84 X10^3/uL (0.83-4.51); Absolute Neutrophil Count 5.2 X10^3/uL (2.0-7.7); Basophil# 0.01 X10^3/uL; Basophil% 0.1 % (0-1); Eosinophil# 0.08 X10^3/uL; Eosinophils% 1.2 % (0-5); Hematocrit 42.1 % (37-47); Hemoglobin 13.5 g/dL (12.0-15.0); Lymphocyte # 0.84 X10^3/ul (0.83-4.51); Lymphocyte % 12.5 % (19-41); Mean Corp Hgb Conc 32.1 g/dL (32-36); Mean Corpuscular Hgb 29.7 pg (27.0-32.0); Mean Corpuscular Volume 92.7 fL (81-99); Mean Platelet Vol. 9.5 fl (6.2-12.0); Monocyte# 0.53 X10^3/uL; Monocyte% 7.9 % (0-10); NRBC Flagged by Analyzer 0 % (0-5); Neutrophil # 5.23 X10^3/uL (2.7-7.7); Neutrophil % 77.9 % (47-70); Platelet Count 209 K/mm3 (150-450); RBC Distribution Width CV 12.6 % (11.6-14.6); RBC Distribution Width SD 42.5 fl (35.1-43.9); Red Blood Count 4.54 M/mm3 (4.2-5.4); White Blood Count 6.7 K/mm3 (4.4-11.0)
[2021-10-12] MEDS: Famotidine 20 MG Tablet PO (14:42)
[2021-10-12] MEDS: Aspirin 325 MG Tablet PO (14:42)
[2021-10-12 14:43] VITALS: BP 184/91; PULSE 60; RESP 20; O2SAT 96
[2021-10-12 14:55] LABS: Anion Gap 0 (5-15); BUN 15 mg/dL (7-18); BUN/Creat Ratio 26.6 RATIO (10-20); Calcium,Total 10.1 mg/dL (8.5-10.1); Chloride 107 mmol/L (98-107); Creatinine, Serum 0.56 mg/dL (0.55-1.02); EST Glomerular Filtration Rate 111 mL/min (>60); Est Glom Filt Rate - Afr Amer 134 mL/min (>60); Estimated Creatinine Clearance 73.85 ml/min; Glucose 110 mg/dL (74-106); Potassium 4.5 mmol/L (3.5-5.1); Sodium Level 140 mmol/L (136-145); Troponin-I HS 10 pg/mL (3.0-54.0)
[2021-10-12 17:04] VITALS: BP 168/95; PULSE 63; RESP 17; O2SAT 98
[2021-10-12 17:45] LABS: Troponin-I HS (w/2H Reflex) 13 pg/mL (3.0-54.0)
[2021-10-12 18:12] VITALS: BP 169/98; PULSE 66; RESP 17; O2SAT 97
[2021-10-12 19:25] LABS: Reflex Troponin-HS? (from REC) Y
== END 2021-10-12 18:14 | disposition home or self-care (01) ==
PROVIDERS: Physician Assistant; Emergency Provider Student in an Organized Health Care Education/Training Program; PCP Family Medicine; Visit Provider Student in an Organized Health Care Education/Training Program
DX: R07.89 Other chest pain (principal); E66.01 Morbid (severe) obesity due to excess calories; Z68.42 Body mass index [BMI] 45.0-49.9, adult; K21.9 Gastro-esophageal reflux disease without esophagitis; I25.10 Atherosclerotic heart disease of native coronary artery without angina pectoris; I10 Essential (primary) hypertension; E78.5 Hyperlipidemia, unspecified; Z79.82 Long term (current) use of aspirin; Z79.899 Other long term (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
CPT/HCPCS: 36415; 71045; 80048; 84484; 85025; 93005; 99285; A4216

== ENCOUNTER → 2021-11-07 | Outpatient (CLI) | payer MEDICARE, SELFPAY | END | disposition home or self-care (01) | LOC: PSN 10:28 | PROVIDERS: PCP Family Medicine; Referring Provider Nurse Practitioner Gerontology; Visit Provider Nurse Practitioner Gerontology | DX: R00.2 Palpitations (principal) | CPT/HCPCS: 93225; 93226 ==

== ENCOUNTER → 2021-11-20 | Outpatient (CLI) | payer MEDICARE, SELFPAY ==
--- NOTE | 2021-11-20 12:37 | ECHOD_ITS ---
Reason For Study: ANTHONY Procedure This was a 2D Doppler, Color Flow transthoracic echocardiogram. Exam performed in department. Left Ventricle Normal LV size. Left ventricular systolic function is normal. The estimated ejection fraction is 60 %. Stage 1 diastolic dysfunction. No regional wall motion abnormalities noted. Right Ventricle Normal RV size. Normal systolic function. Atria Normal left atrium. Normal right atrium. Mitral Valve Normal mitral valve. Mild (1+) mitral valve insufficiency. Tricuspid Valve Normal tricuspid valve. Mild tricuspid valve insufficiency. Pulmonary artery systolic pressure is 33 mmHg. Aortic Valve Trisinus/trileaflet aortic valve. Mild focal aortic valve calcification. Pulmonic Valve Normal pulmonic valve. Great Vessels Normal aortic root. The pulmonary artery is normal size. Normal inferior vena cava. Pericardium/Pleural No pericardial effusion. MMode/2D Measurements & Calculations LVIDd: 5.0 cm IVSd: 0.79 cm Ao root diam: 3.2 cm LVIDs: 3.3 cm LVPWd: 0.92 cm RVDd: 3.4 cm FS: 34.4 % LAV(MOD-bp): 50.3 ml LVAd ap4: 29.9 cm2 SV(MOD-sp4): 59.8 ml LAV(MOD-bp) Indexed: 26.6 ml/m2 LVLd ap4: 7.7 cm LAV(MOD-sp2): 51.6 ml EDV(MOD-sp4): 92.9 ml LAV(MOD-sp4): 45.5 ml EDV(sp4-el): 98.9 ml LVAs ap4: 16.5 cm2 LVLs ap4: 7.0 cm ESV(MOD-sp4): 33.1 ml ESV(sp4-el): 33.1 ml EF(MOD-sp4): 64.3 % EF(sp4-el): 66.5 % SV(sp4-el): 65.7 ml LA A4 area: 17.3 cm2 LA dimension(2D): 4.2 cm RA A4 area: 15.5 cm2 Time Measurements MV dec time: 0.26 sec Doppler Measurements & Calculations MV E max [place]: 81.5 cm/sec Lat Peak E' [place]: 8.7 cm/sec Med Peak E' [place]: 6.2 cm/sec MV A max [place]: 113.5 cm/sec E/E' lat: 9.3 E/E' med: 13.2 MV E/A: 0.72 Ao V2 max: 131.0 cm/sec LV V1 max: 135.6 cm/sec MV dec slope: 318.7 cm/sec2 Ao max P.9 mmHg LV V1 max P.4 mmHg PA V2 max: 111.8 cm/sec TR max [place]: 280.1 cm/sec TR max P.4 mmHg ECHO/Echo Complete Interpretation Summary Normal LV size. Left ventricular systolic function is normal. The estimated ejection fraction is 60 %. Stage 1 diastolic dysfunction. Pulmonary artery systolic pressure is 33 mmHg. Structurally normal valves. Ordering Physician: Ginger Grace Referring Physician: TRACEE HOFFMANN Performed By: Melvi Seay RDCS
== END | disposition home or self-care (01) ==
LOC: CVS 12:37
PROVIDERS: PCP Family Medicine; Referring Provider Nurse Practitioner Gerontology; Visit Provider Nurse Practitioner Gerontology
DX: R06.09 Other forms of dyspnea (principal)
CPT/HCPCS: 93306

== ENCOUNTER → 2021-12-25 | Outpatient (CLI) | payer MEDICARE, SELFPAY ==
[2021-12-25 08:53] LABS: BNP,B-Type NATRIURETIC PEPTIDE 243.4 pg/mL (0-100)
[2021-12-25 08:56] LABS: AST(SGOT) 12 U/L (15-37); Alanine Aminotransfer ALT/SGPT 15 U/L (13-56); Alkaline Phosphatase 132 U/L (45-117); Anion Gap 2 (5-15); BUN 12 mg/dL (7-18); BUN/Creat Ratio 22.1 RATIO (10-20); Bilirubin, Direct 0.27 mg/dL (0.00-0.30); Chloride 107 mmol/L (98-107); Cholesterol 113 mg/dL (200); Creatinine, Serum 0.54 mg/dL (0.55-1.02); EST Glomerular Filtration Rate 115 mL/min (>60); Est Glom Filt Rate - Afr Amer 139 mL/min (>60); Globulin 3.6 g/dL (2.2-4.2); Glucose 109 mg/dL (74-106); High Density Lipoprotein 46 mg/dL; Protein, Total 6.6 g/dL (6.4-8.2); Sodium Level 139 mmol/L (136-145); Triglycerides 116 mg/dL; Very Low Density Lipoprotein 23 mg/dL (5-40)
== END | disposition home or self-care (01) ==
LOC: LABSPEC 08:09 → LAB 08:12
PROVIDERS: PCP Family Medicine; Visit Provider Nurse Practitioner Gerontology
DX: R06.09 Other forms of dyspnea (principal); R00.2 Palpitations; I25.10 Atherosclerotic heart disease of native coronary artery without angina pectoris; I10 Essential (primary) hypertension; E78.00 Pure hypercholesterolemia, unspecified; Z98.61 Coronary angioplasty status
CPT/HCPCS: 36415; 80048; 80061; 80076; 83880

== ENCOUNTER → 2022-01-07 | Outpatient (CLI) | payer MEDICARE, SELFPAY ==
[2022-01-07 09:24] LABS: Anion Gap 7 (5-15); BUN 16 mg/dL (7-18); BUN/Creat Ratio 27.5 RATIO (10-20); Calcium,Total 9.4 mg/dL (8.5-10.1); Chloride 106 mmol/L (98-107); Creatinine, Serum 0.58 mg/dL (0.55-1.02); EST Glomerular Filtration Rate 107 mL/min (>60); Est Glom Filt Rate - Afr Amer 129 mL/min (>60); Glucose 102 mg/dL (74-106); Sodium Level 141 mmol/L (136-145)
== END | disposition home or self-care (01) ==
LOC: LAB 08:12
PROVIDERS: PCP Family Medicine; Referring Provider Nurse Practitioner Gerontology; Visit Provider Nurse Practitioner Gerontology
DX: R06.09 Other forms of dyspnea (principal)
CPT/HCPCS: 36415; 80048

== ENCOUNTER → 2023-02-02 | Outpatient (CLI) | payer MEDICARE, SELFPAY ==
[2023-02-02 11:54] LABS: AST(SGOT) 14 U/L (15-37); Alanine Aminotransfer ALT/SGPT 18 U/L (13-56); Albumin, Serum 2.7 g/dL (3.2-5.0); Alkaline Phosphatase 105 U/L (45-117); Bilirubin, Direct 0.19 mg/dL (0.00-0.30); Cholesterol 96 mg/dL (200); Globulin 3.4 g/dL (2.2-4.2); High Density Lipoprotein 39 mg/dL; Protein, Total 6.1 g/dL (6.4-8.2); Triglycerides 127 mg/dL; Very Low Density Lipoprotein 25 mg/dL (5-40)
== END | disposition home or self-care (01) ==
LOC: LAB 10:40
PROVIDERS: PCP Family Medicine; Visit Provider Nurse Practitioner Gerontology
DX: E78.00 Pure hypercholesterolemia, unspecified (principal)
CPT/HCPCS: 36415; 80061; 80076

== ENCOUNTER → 2023-03-25 | Outpatient (CLI) | payer MEDICARE, SELFPAY | END | disposition home or self-care (01) | PROVIDERS: PCP Family Medicine; Visit Provider Physician Assistant Surgical | DX: R31.9 Hematuria, unspecified (principal) | CPT/HCPCS: 87086; 87088 ==

== ENCOUNTER 2023-07-15 21:22 | Emergency (ER) | payer MEDICARE, SELFPAY ==
[2023-07-15 21:24] VITALS: BP 147/86; PULSE 94; RESP 17; TEMP 36.8; O2SAT 95
--- NOTE | 2023-07-15 21:25 | EKG12_ITS ---
Test Reason : CP Blood Pressure : / mmHG Vent. Rate : 061 BPM Atrial Rate : 061 BPM P-R Int : 158 ms QRS Dur : 086 ms QT Int : 388 ms P-R-T Axes : 049 -26 001 degrees QTc Int : 390 ms Normal sinus rhythm Minimal voltage criteria for LVH, may be normal variant ( R in aVL ) Septal infarct , age undetermined Abnormal ECG Confirmed by Eduardo Butler ([id number]), editorial intern [facility] ([id number]) on 07/20/2023 9:59:46 AM Referred By: Confirmed By:Eduardo Butler
[2023-07-15 21:39] LABS: Absolute Lymphocyte Count 1.03 X10^3/uL (0.83-4.51); Absolute Neutrophil Count 3.6 X10^3/uL (2.0-7.7); Basophil# 0.02 X10^3/uL; Basophil% 0.4 % (0-1); Eosinophil# 0.12 X10^3/uL; Eosinophils% 2.2 % (0-5); Hematocrit 41.7 % (37-47); Hemoglobin 13.2 g/dL (12.0-15.0); Lymphocyte # 1.03 X10^3/ul (0.83-4.51); Lymphocyte % 19.2 % (19-41); Mean Corp Hgb Conc 31.7 g/dL (32-36); Mean Corpuscular Hgb 29.1 pg (27.0-32.0); Mean Corpuscular Volume 92.1 fL (81-99); Mean Platelet Vol. 9.7 fl (6.2-12.0); Monocyte# 0.57 X10^3/uL; Monocyte% 10.6 % (0-10); NRBC Flagged by Analyzer 0 % (0-5); Neutrophil % 67.2 % (47-70); Platelet Count 208 K/mm3 (150-450); RBC Distribution Width CV 12.7 % (11.6-14.6); RBC Distribution Width SD 42.5 fl (35.1-43.9); Red Blood Count 4.53 M/mm3 (4.2-5.4); White Blood Count 5.4 K/mm3 (4.4-11.0)
--- NOTE | 2023-07-15 22:10 | RAD_ITS ---
INDICATION: chest pain EXAMINATION/TECHNIQUE: X-RAY - XR Chest 1 View COMPARISON: None. Findings: Single frontal view of the chest. Low lung volumes. LUNG PARENCHYMA: No acute focal airspace disease or mass lesion. PLEURA: No pleural effusion. No pneumothorax. HEART/GREAT VESSELS: Cardiomediastinal silhouette is unremarkable. BONES: Osseous structures are unremarkable for age. RAD/Chest 1 View (Portable) IMPRESSION: Given low lung volumes, chest with no acute disease. Electronically Signed: Yovanny Joaquin MD at 22:40 EDT ,
--- NOTE | 2023-07-15 22:21 | EDS_ITS ---
HPI History of Present Illness Chief Complaint: Chest Pain Informant: patient Onset/Context/Timing Onset: Today Narrative Narrative: Patient presents with complaints of some intermittent chest pressure, dizziness, generalized weakness. She states she felt fatigued all day and lay down tonight to take a nap. When she got up this evening she had some slight chest pressure with dizziness and folic her arms were heavy. She thought she should just be checked out. She does report slight stuffiness that she thought might be related to allergies. She does report some mild shortness of breath with exertion but that does not appear to be new. She does have mild lower extremity edema. [facility] Medical History Obesity Essential (primary) hypertension Atherosclerotic heart disease of [place] coronary artery without angina pectoris Hyperlipidemia GERD (gastroesophageal reflux disease) Osteoarthritis Morbid obesity with BMI of 40.0-44.9, adult Home Medications ?Medication ?Instructions ?Recorded ?Last Taken ?Type aspirin 81 mg chewable tablet 81 mg PO QHS 10/25/15 10/24/15 History potassium gluconate 595 mg (99 mg) 595 mg PO DAILY PRN for low levels 09/09/18 Unknown History tablet nitroglycerin 0.4 mg sublingual 0.4 mg sublingual Q5M PRN Chest 04/18/21 Unknown Rx tablet Pain #25 tabs omeprazole 20 mg capsule,delayed 20 mg PO DAILY #90 caps 08/20/22 Unknown Rx release atorvastatin 40 mg tablet 40 mg PO QHS #90 tabs 11/10/22 Unknown Rx carvedilol 25 mg tablet 25 mg PO BID Dose has been 11/24/22 Unknown Rx increased #180 tabs furosemide 20 mg tablet (Lasix) 20 mg PO DAILY #90 tabs 01/15/23 Unknown Rx lisinopril 20 mg tablet 20 mg PO BID #180 tabs 02/02/23 Unknown Rx Allergy/AdvReac Type Severity Reaction Status Date / Time hydrochlorothiazide AdvReac Intermediate Constipatio Verified 03/25/23 16:33 n Family History Father CAD (coronary artery disease) Mother CHF (congestive heart failure) Sister Hypertension Surgical History History of cholecystectomy History of left heart catheterization (06/04/08) History of coronary angioplasty (09/20/07) History of laparoscopic cholecystectomy History of total hysterectomy Social History Smoking Status: Never smoker alcohol intake: never substance use type: does not use ROS ROS ED Constitutional Constitutional ED: Denies chills or fever(s) Eyes Eyes: Denies discharge from eye(s) ENT ENT ED: Denies discharge from eye(s), rhinorrhea or sore throat Cardiovascular Cardiovascular: Reports chest pain; Denies palpitations Respiratory/Chest Respiratory/Chest: Reports dyspnea; Denies cough Gastrointestinal Gastrointestinal: Denies abdominal pain, nausea or vomiting Genitourinary Genitourinary ED: Denies dysuria Musculoskeletal Musculoskeletal: Denies back pain or extremity pain Integumentary Denies Abrasions or rash Neurologic Neurologic: Reports headache(s) and weakness Psychiatric Psychiatric: Denies anxiety or depression Allergic/Immunologic Allergic/Immunologic ED: Denies lip swelling or urticaria EXAM Physical Exam Const Vital Signs: 07/15/23 21:24 07/15/23 21:25 07/15/23 22:23 Temperature 98.2 F Temperature Source Temporal Pulse Rate 94 80 Respiratory Rate 17 16 Blood Pressure 147/86 H 129/74 H Blood Pressure Mean 106 92 Pulse Ox 95 98 Oxygen Delivery Method Room Air Room Air Room Air 07/15/23 23:00 07/16/23 00:00 Temperature Temperature Source Pulse Rate 57 L 59 L Respiratory Rate 17 19 H Blood Pressure 149/74 H 124/70 H Blood Pressure Mean 99 88 Pulse Ox 94 95 Oxygen Delivery Method Room Air Room Air Positive well nourished and well developed General Appearance ED: well developed HEENT Reports moist mucous membranes Eyes EOMs intact bilaterally Chest Wall inspection of chest normal and palpation of chest normal Resp normal respiratory effort and clear to auscultation bilaterally Cardio regular rate and regular rhythm GI normal to inspection, nondistended, normoactive bowel sounds and soft to palpation Extremity Extremity Narrative: 3+ bilateral lower extremity edema, symmetric. Neuro oriented x3 and no sensory deficits noted Skin no rashes or lesions noted MDM MDM MDM Narrative Medical decision making narrative: Patient present quality assurance monitor final. IV line initiated. Labwork obtained to evaluate for leukocytosis, anemia, and electrolyte derangement. EKG obtained to evaluate for cardiac arrhythmia/ischemia. Chest x-ray obtained to evaluate for acute lung pathology, cardiac size, or mediastinal abnormality. History & Record Review Discussion w/independent historian: Patient Additional record(s) reviewed:: Prior labs Lab Data Attestation: I reviewed the patient's lab results. Labs: Laboratory Results - last 24 hr 07/15/23 07/15/23 21:30 23:48 WBC 5.4 RBC 4.53 Hgb 13.2 Hct 41.7 MCV 92.1 MCH 29.1 MCHC 31.7 L RDW Std Deviation 42.5 RDW Coeff of Cory 12.7 Plt Count 208 MPV 9.7 Immature Gran % (Auto) 0.400 Neut % (Auto) 67.2 Lymph % (Auto) 19.2 [place] % (Auto) 10.6 H Eos % (Auto) 2.2 Baso % (Auto) 0.4 Absolute Neuts (auto) 3.6 Absolute Lymphs (auto) 1.03 Nucleated RBC % 0 Sodium 139 Potassium 4.1 Chloride 110 H Carbon Dioxide 27.0 Anion Gap 2 L BUN 13 Creatinine 0.53 L Est GFR (MDRD) Af Amer 143 Est GFR (MDRD) Non-Af 118 BUN/Creatinine Ratio 24.5 H Glucose 120 H Calcium 9.6 Troponin I High Sens 10 9 B-Natriuretic Peptide 141.6 H Radiography Chest X-Ray - ED: 1 View, Read by ED Physician, Chronic Changes and No Infiltrates Diagnostic Testing: Clinical Impression(s) from Imaging Studies Chest X-Ray 07/15/23 22:10 IMPRESSION: Given low lung volumes, chest with no acute disease. Electronically Signed: Yovanny Joaquin MD at 22:40 EDT , EKG Initial EKG: Attestation: I personally reviewed and interpreted this EKG as follows: Interpretation: Sinus Rhythm (Sinus at 61 with no acute ischemia.) Treatment and Re-Evaluation :: CBC reveals normal white count 5.4 with normal differential. Chemistry studies unremarkable with normal renal function. Glucose is 120. BNP is 141. Initial troponin is 10 with a 2-hour repeat troponin of 9. EKG is sinus rhythm with no evidence of acute ischemia. Portable chest x-ray per my interpretation was chronic changes with no obvious infiltrate. Radiology interpretation reviewed and agrees. On repeat evaluation test results discussed with patient and family at bedside. She is reassured with this workup and is comfortable with discharge to home. Return instructions are given. Discharge Plan Triage Chief Complaint: Chest Pain ED Provider: Gayle Us Dx/Rx/DC Orders Clinical Impression: Fatigue, Chest pain Instructions: ED Chest Pain, Uncertain Cause, ED Weakness (Uncertain Cause) Prescriptions: No Action potassium gluconate 595 mg (99 mg) tablet 595 mg PO DAILY PRN (Reason: for low levels) nitroglycerin 0.4 mg tablet, sublingual 0.4 mg SUBLINGUAL Q5M PRN (Reason: Chest Pain) Qty: 25 2RF Patient Comments: chest pain lisinopril 20 mg tablet 20 mg PO BID Qty: 180 4RF aspirin 81 MG tablet,chewable 81 mg PO QHS Patient Comments: [facility] omeprazole 20 mg capsule,delayed release(DR/EC) 20 mg PO DAILY Qty: 90 3RF atorvastatin 40 mg tablet 40 mg PO QHS Qty: 90 3RF carvedilol 25 mg tablet 25 mg PO BID Qty: 180 3RF Rx Instructions: must administer with a meal/food furosemide [Lasix] 20 mg tablet 20 mg PO DAILY Qty: 90 3RF Primary Care Provider: Lilly Flethcer Referrals: Lilly Fletcher MD [Primary Care Provider] - 1 Week if not improving Print Language: Korean Disposition Disposition: Home, Self Care
[2023-07-15 22:23] VITALS: BP 129/74; PULSE 80; RESP 16; O2SAT 98
[2023-07-15 22:24] LABS: Anion Gap 2 (5-15); BUN 13 mg/dL (7-18); BUN/Creat Ratio 24.5 RATIO (10-20); Calcium,Total 9.6 mg/dL (8.5-10.1); Chloride 110 mmol/L (98-107); Creatinine, Serum 0.53 mg/dL (0.55-1.02); EST Glomerular Filtration Rate 118 mL/min (>60); Est Glom Filt Rate - Afr Amer 143 mL/min (>60); Glucose 120 mg/dL (74-106); Potassium 4.1 mmol/L (3.5-5.1); Sodium Level 139 mmol/L (136-145); Troponin-I HS (w/2H Reflex) 10 pg/mL (3.0-54.0)
[2023-07-15 23:00] VITALS: BP 149/74; PULSE 57; RESP 17; O2SAT 94
[2023-07-15 23:16] LABS: BNP,B-Type NATRIURETIC PEPTIDE 141.6 pg/mL (0-100)
[2023-07-15 23:37] LABS: Reflex Troponin-HS? (from REC) Y
[2023-07-16] VITALS: BP 124/70; PULSE 59; RESP 19; O2SAT 95
[2023-07-16 00:23] LABS: Troponin-I HS 9 pg/mL (3.0-54.0)
[2023-07-16 00:42] VITALS: BP 132/71; PULSE 56; RESP 22; TEMP 36.2; O2SAT 95
== END 2023-07-16 00:47 | disposition home or self-care (01) ==
PROVIDERS: Emergency Provider Emergency Medicine; PCP Family Medicine; Visit Provider Emergency Medicine
DX: R07.89 Other chest pain (principal); R53.83 Other fatigue; R06.02 Shortness of breath; I25.10 Atherosclerotic heart disease of native coronary artery without angina pectoris; I10 Essential (primary) hypertension; Z79.82 Long term (current) use of aspirin; Z79.899 Other long term (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
CPT/HCPCS: 71045; 80048; 83880; 84484; 85025; 93005; 99283

== ENCOUNTER → 2023-08-03 | Outpatient (CLI) | payer MEDICARE, SELFPAY ==
[2023-08-03 12:41] LABS: AST(SGOT) 20 U/L (15-37); Alanine Aminotransfer ALT/SGPT 16 U/L (13-56); Albumin, Serum 2.9 g/dL (3.2-5.0); Alkaline Phosphatase 114 U/L (45-117); Cholesterol 112 mg/dL (200); Globulin 3.5 g/dL (2.2-4.2); High Density Lipoprotein 42 mg/dL; Protein, Total 6.4 g/dL (6.4-8.2); Triglycerides 118 mg/dL; Very Low Density Lipoprotein 24 mg/dL (5-40)
== END | disposition home or self-care (01) ==
LOC: LAB 09:18
PROVIDERS: PCP Family Medicine; Visit Provider Nurse Practitioner Gerontology
DX: E78.00 Pure hypercholesterolemia, unspecified (principal)
CPT/HCPCS: 36415; 80061; 80076

== ENCOUNTER → 2023-08-10 | Outpatient (CLI) | payer MEDICARE, SELFPAY ==
[2023-08-10 12:33] LABS: Anion Gap 2 (5-15); BUN 13 mg/dL (7-18); BUN/Creat Ratio 23.6 RATIO (10-20); Calcium,Total 9.9 mg/dL (8.5-10.1); Chloride 109 mmol/L (98-107); Creatinine, Serum 0.55 mg/dL (0.55-1.02); EST Glomerular Filtration Rate 113 mL/min (>60); Est Glom Filt Rate - Afr Amer 137 mL/min (>60); Glucose 127 mg/dL (74-106); Potassium 4.1 mmol/L (3.5-5.1); Sodium Level 140 mmol/L (136-145)
== END | disposition home or self-care (01) ==
LOC: LAB 10:21
PROVIDERS: PCP Family Medicine; Referring Provider Nurse Practitioner Gerontology; Visit Provider Nurse Practitioner Gerontology
DX: R06.09 Other forms of dyspnea (principal)
CPT/HCPCS: 36415; 80048; 83880

== ENCOUNTER → 2023-09-04 | Outpatient (CLI) | payer MEDICARE, SELFPAY ==
[2023-09-04 10:16] LABS: Anion Gap 6 (5-15); BUN 15 mg/dL (7-18); BUN/Creat Ratio 24.2 RATIO (10-20); Calcium,Total 10.1 mg/dL (8.5-10.1); Chloride 108 mmol/L (98-107); Creatinine, Serum 0.62 mg/dL (0.55-1.02); EST Glomerular Filtration Rate 99 mL/min (>60); Est Glom Filt Rate - Afr Amer 119 mL/min (>60); Glucose 108 mg/dL (74-106); Potassium 3.8 mmol/L (3.5-5.1); Sodium Level 142 mmol/L (136-145)
== END | disposition home or self-care (01) ==
LOC: LAB 08:32
PROVIDERS: PCP Family Medicine; Referring Provider Nurse Practitioner Gerontology; Visit Provider Nurse Practitioner Gerontology
DX: R06.09 Other forms of dyspnea (principal)
CPT/HCPCS: 36415; 80048

== ENCOUNTER → 2023-10-06 | Outpatient (CLI) | payer MEDICARE, SELFPAY ==
--- NOTE | 2023-10-06 13:46 | ECHOCS_ITS ---
Reason For Study: ANTHONY/SOB Procedure This was a 2D Doppler, Color Flow transthoracic echocardiogram. The study was technically difficult. Contrast injection was performed. Exam performed in department. Left Ventricle Normal LV size. Left ventricular systolic function is normal. The left ventricular ejection fraction is 65 %. Stage 1 diastolic dysfunction. No regional wall motion abnormalities noted. Right Ventricle Normal RV size. Normal systolic function. Atria Normal left atrium. Normal right atrium. Hypermobile atrial septum. Bubble contrast study negative for right to left interatrial shunt. Mitral Valve Normal mitral valve. Tricuspid Valve Normal tricuspid valve. Mild tricuspid valve insufficiency. Pulmonary artery systolic pressure is 33 mmHg. Aortic Valve Trisinus/trileaflet aortic valve. Mild focal aortic valve calcification. Pericardium/Pleural No pericardial effusion. Medication 22 gauge I.V. with prn adaptor inserted into right arm. Diluted definity 2.5ml given slow IV push to enhance endocardial definition. Performed a rapid injection of agitated mix of 9 cc saline and 1cc air to assess for atrial septal defect. MMode/2D Measurements & Calculations LVIDd: 4.5 cm IVSd: 0.93 cm Ao root diam: 3.3 cm LVIDs: 3.1 cm LVPWd: 1.2 cm LA dimension: 4.4 cm RVDd: 4.2 cm FS: 31.2 % LAV(MOD-bp): 52.7 ml LVAd ap4: 28.9 cm2 SV(MOD-sp4): 56.3 ml LAV(MOD-bp) Indexed: 27.9 ml/m2 LVLd ap4: 8.1 cm LAV(MOD-sp2): 59.4 ml EDV(MOD-sp4): 83.0 ml LAV(MOD-sp4): 45.4 ml EDV(sp4-el): 87.3 ml LVAs ap4: 14.1 cm2 LVLs ap4: 6.2 cm ESV(MOD-sp4): 26.7 ml ESV(sp4-el): 27.2 ml EF(MOD-sp4): 67.9 % EF(sp4-el): 68.8 % SV(sp4-el): 60.1 ml LA A4 area: 16.7 cm2 RA A4 area: 15.3 cm2 TAPSE: 1.6 cm Time Measurements MV dec time: 0.27 sec Doppler Measurements & Calculations MV E max celestine: 79.9 cm/sec Lat Peak E' Celestine: 7.8 cm/sec Med Peak E' Celestine: 4.0 cm/sec MV A max celestine: 113.7 cm/sec E/E' lat: 10.3 E/E' med: 19.7 MV E/A: 0.70 MV V2 max: 134.3 cm/sec MV P1/2t max celestine: 84.9 cm/sec Ao V2 max: 169.9 cm/sec MV max P.2 mmHg MV P1/2t: 102.9 msec Ao max P.6 mmHg MV V2 mean: 62.0 cm/sec MV dec slope: 241.8 cm/sec2 Ao V2 mean: 112.0 cm/sec MV mean P.9 mmHg Ao mean P.8 mmHg MV V2 VTI: 41.8 cm MVA(P1/2t): 2.1 cm2 Ao V2 VTI: 41.1 cm AV (velocity ratio): 0.64 LV V1 max: 115.0 cm/sec PA V2 max: 117.3 cm/sec TR max celestine: 276.0 cm/sec LV V1 max P.3 mmHg TR max P.5 mmHg LV V1 mean P.8 mmHg LV V1 mean: 78.5 cm/sec LV V1 VTI: 26.1 cm ECHO/Echo Complete W/ Contrast Interpretation Summary Normal LV size. Left ventricular systolic function is normal. The left ventricular ejection fraction is 65 %. Stage 1 diastolic dysfunction. Hypermobile atrial septum. Bubble contrast study negative for right to left interatrial shunt. Ordering Physician: Ginger Grace Referring Physician: Lilly Fletcher M.D. Performed By: Ahmet Fish RCS
== END | disposition home or self-care (01) ==
PROVIDERS: PCP Family Medicine; Referring Provider Nurse Practitioner Gerontology; Visit Provider Nurse Practitioner Gerontology
DX: R06.09 Other forms of dyspnea (principal)
CPT/HCPCS: 93306; Q9957; A4216; C8929

== ENCOUNTER 2024-06-18 20:33 | Emergency (ER) | payer MEDICARE, SELFPAY ==
[2024-06-18 20:34] VITALS: BP 135/98; PULSE 77; RESP 20; TEMP 36.6; O2SAT 95; BMI 43.2
[2024-06-18 20:38] VITALS: O2SAT 95
--- NOTE | 2024-06-18 20:47 | ED.VIS.FALL ---
HPI <PEDRITO Delacruz - Last Filed: 06/18/24 21:58> HPI - Fall History of Present Illness Chief Complaint: Fall Narrative Narrative: 78-year-old female with PMH of HTN, HLD, CAD, GERD went to sit down this evening and missed her chair and fell backwards landing on her back. She hit her head on the ground but denies LOC. Family called EMS who recommended she be seen. Patient denies pain or injury. She is not on blood thinners. She is primarily concerned about 6+ months of ongoing lightheadedness in the morning she attributes to her blood pressure medication. She is prescribed lisinopril 20 mg BID and carvedilol 20 mg BID but instead of taking the pills together in the morning she spaces them out by 4 hours in the morning in the evening to treat her lightheadedness. She states her cardiology appointment has been delayed and is now in the seventh to discuss this issue. She has had no recent chest pain, shortness of breath, palpitations or syncope. PFS <PEDRITO Delacruz - Last Filed: 06/18/24 21:58> [facility] Medical History Obesity Essential (primary) hypertension Atherosclerotic heart disease of [place] coronary artery without angina pectoris Hyperlipidemia GERD (gastroesophageal reflux disease) Osteoarthritis Morbid obesity with BMI of 40.0-44.9, adult Home Medications ?Medication ?Instructions ?Recorded ?Last Taken ?Type aspirin 81 mg chewable tablet 81 mg PO QHS 10/25/15 10/24/15 History potassium gluconate 595 mg (99 mg) 595 mg PO DAILY PRN for low levels 09/09/18 Unknown History tablet atorvastatin 40 mg tablet 40 mg PO QHS #90 tabs 08/10/23 Unknown Rx carvedilol 25 mg tablet 25 mg PO BID Dose has been 08/10/23 Unknown Rx increased #180 tabs nitroglycerin 0.4 mg sublingual 0.4 mg sublingual Q5M PRN Chest 08/10/23 Unknown Rx tablet Pain #25 tabs omeprazole 20 mg capsule,delayed 20 mg PO DAILY #90 caps 08/12/23 Unknown Rx release furosemide 40 mg tablet 40 mg PO DAILY this is a dose 08/31/23 Unknown Rx increase #90 tabs lisinopril 20 mg tablet 20 mg PO BID #180 tabs 02/09/24 Unknown Rx Allergy/AdvReac Type Severity Reaction Status Date / Time hydrochlorothiazide AdvReac Intermediate Constipatio Verified 06/18/24 20:38 n Family History Father CAD (coronary artery disease) Mother CHF (congestive heart failure) Sister Hypertension Surgical History History of cholecystectomy History of left heart catheterization (06/04/08) History of coronary angioplasty (09/20/07) History of laparoscopic cholecystectomy History of total hysterectomy Social History Smoking Status: Never smoker alcohol intake: never substance use type: does not use ROS <PEDRITO Delacruz - Last Filed: 06/18/24 21:58> ROS ED ROS Narrative Constitutional: Negative for fever, chills, malaise. CVS: Negative for palpitations, chest pain, syncope. Respiratory: Negative for shortness of breath, cough. GI: Negative for abdominal pain, nausea, vomiting, diarrhea, melena, hematochezia. Neuro: Negative for headache. EXAM <PEDRITO Delacruz - Last Filed: 06/18/24 21:58> Physical Exam Narrative Exam Narrative: CONST: Patient sitting in no acute distress. EYES: Normal inspection. HEAD: Normocephalic atraumatic. NECK: Normal inspection. No midline spinal tenderness, no step off or crepitus. RESP: No respiratory distress, CTAB. CVS: Regular rate and rhythm, no murmur, no gallop. ABD: Soft and nontender, no guarding or rebound, nondistended. Back: Normal inspection, no midline tenderness. SKIN: Color normal, no rash, warm, dry, intact. EXTREMITIES: Normal appearance, no bony tenderness of upper or lower extremities, chronic bilateral ankle edema. 2+ radial and PT pulses. NEURO: Alert and answering questions appropriately. PSYCH: Normal affect. Const Vital Signs: 06/18/24 20:34 06/18/24 20:38 06/18/24 21:18 Temperature 97.8 F Temperature Source Oral Pulse Rate 77 Pulse Rate [Lying] 99 Pulse Rate [Sitting (for 1 minute prior to obtaining)] 96 Pulse Rate [Standing (for 1 minute prior to obtaining)] 91 Respiratory Rate 20 H Respiratory Effort Normal Respiratory Depth Normal Respiratory Pattern Normal Blood Pressure 135/98 H Blood Pressure [Lying] 119/83 H Blood Pressure [Sitting (for 1 minute prior to obtaining)] 123/70 H Blood Pressure [Standing (for 1 minute prior to obtaining)] 129/97 H Blood Pressure Mean 110 Blood Pressure Mean [Lying] 95 Blood Pressure Mean [Sitting (for 1 minute prior to obtaining)] 87 Blood Pressure Mean [Standing (for 1 minute prior to obtaining)] 107 Pulse Ox 95 95 Oxygen Delivery Method Room Air Room Air <Dr. Jay Hair MD - Last Filed: 06/18/24 21:59> Physical Exam Const Vital Signs: 06/18/24 20:34 06/18/24 20:38 06/18/24 21:18 Temperature 97.8 F Temperature Source Oral Pulse Rate 77 Pulse Rate [Lying] 99 Pulse Rate [Sitting (for 1 minute prior to obtaining)] 96 Pulse Rate [Standing (for 1 minute prior to obtaining)] 91 Respiratory Rate 20 H Respiratory Effort Normal Respiratory Depth Normal Respiratory Pattern Normal Blood Pressure 135/98 H Blood Pressure [Lying] 119/83 H Blood Pressure [Sitting (for 1 minute prior to obtaining)] 123/70 H Blood Pressure [Standing (for 1 minute prior to obtaining)] 129/97 H Blood Pressure Mean 110 Blood Pressure Mean [Lying] 95 Blood Pressure Mean [Sitting (for 1 minute prior to obtaining)] 87 Blood Pressure Mean [Standing (for 1 minute prior to obtaining)] 107 Pulse Ox 95 95 Oxygen Delivery Method Room Air Room Air [facility] <PEDRITO Delacruz - Last Filed: 06/18/24 21:58> [facility] Narrative Medical decision making narrative: 78-year-old female had a mechanical fall when she missed her chair landing on her back and buttocks. Mild head injury. No LOC. No blood thinners. Reports she is feeling off today. No specific symptoms. She appears well and nontoxic. Vital signs stable. She has a benign exam. She has no external injuries tenderness over the head spine or back. Moving all extremities and neurovascularly intact. Basic labs obtained. CBC within normal limits. BMP shows possible mild dehydration with BUN of 27, creatinine 0.70. No other abnormalities. I did give her IV fluids since she is on Lasix and does have chronic lower extremity edema. Orthostatic vital signs are negative. Patient was able to ambulate with her walker but felt a little sore so was treated with Tylenol. Patient and family are comfortable going home. Given return precautions. Discharged in stable condition. I have personally performed a face to face assessment of the patient and have reviewed the GREY Note. I performed a substantive portion of the visit including all aspects of the following. My buchanan findings include: History is [78-year-old female went to sit down the night missed the chair landed on her buttocks. No LOC. No blood thinners. Mild head injury. States she just felt off today. She thinks her blood pressure may be running low. Patient feels she might be on too much blood pressure medication. She denies any nausea, vomiting, diarrhea or fever. No chest pain or shortness of breath. No abdominal pain. No dysuria. States she just feels off.] Exam is [well-appearing 78-year-old female. Family members present in room. Vital signs are stable afebrile. Pulse ox 95% on room air no hypoxia. H EENT exam pupils round reactive light. Moist mucous membranes. Face scalp nontender no hematoma or laceration. C-spine and neck nontender. Lungs clear to auscultation bilaterally. Heart regular rhythm rate about 80 no murmur. Chest wall and ribs nontender. Abdomen soft nontender. Moving all 4 extremities. Nontender no deformity. Dorsi plantarflexion intact. Trace edema both lower extremities. Back nontender. Neurologically she is awake alert. Answer questions following commands. No focal motor deficits.] Medical Decision Making [78-year-old female fell at home when she went to sit down on a chair and missed it. Screening labs. CBC and chemistry are basically unremarkable other than mild dehydration. She is on Lasix and 2 blood pressure medications. Will ambulate her and also do orthostatic vital signs.] Other additions or changes: [None] Lab Data Labs: Laboratory Results - last 24 hr 06/18/24 20:53 WBC 7.3 RBC 4.64 Hgb 14.1 Hct 42.3 MCV 91.2 MCH 30.4 MCHC 33.3 RDW Std Deviation 41.5 RDW Coeff of Cory 12.6 Plt Count 222 MPV 9.3 Immature Gran % (Auto) 0.400 Neut % (Auto) 71.1 H Lymph % (Auto) 18.1 L Tift % (Auto) 9.1 Eos % (Auto) 1.0 Baso % (Auto) 0.3 Absolute Neuts (auto) 5.2 Absolute Lymphs (auto) 1.33 Nucleated RBC % 0 Sodium 139 Potassium 4.5 Chloride 102 Carbon Dioxide 27.6 Anion Gap 9 BUN 27 H Creatinine 0.70 Estim Creat Clear Calc 59.54 Est GFR (MDRD) Non-Af 88 BUN/Creatinine Ratio 38.3 H Glucose 114 H Calcium 10.4 <Dr. Jay Hair MD - Last Filed: 06/18/24 21:59> MDM MDM Narrative Medical decision making narrative: 78-year-old female had a mechanical fall when she missed her chair landing on her back and buttocks. Mild head injury. No LOC. No blood thinners. Reports she is feeling off today. No specific symptoms. She appears well and nontoxic. Vital signs stable. She has a benign exam. She has no external injuries tenderness over the head spine or back. Moving all extremities and neurovascularly intact. Basic labs obtained. CBC within normal limits. BMP shows possible mild dehydration with BUN of 27, creatinine 0.70. No other abnormalities. I did give her IV fluids since she is on Lasix and does have chronic lower extremity edema. Orthostatic vital signs are negative. Patient was able to ambulate with her walker but felt a little sore so was treated with Tylenol. Patient and family are comfortable going home. Given return precautions. Discharged in stable condition. I have personally performed a face to face assessment of the patient and have reviewed the GREY Note. I performed a substantive portion of the visit including all aspects of the following. My buchanan findings include: History is [78-year-old female went to sit down the night missed the chair landed on her buttocks. No LOC. No blood thinners. Mild head injury. States she just felt off today. She thinks her blood pressure may be running low. Patient feels she might be on too much blood pressure medication. She denies any nausea, vomiting, diarrhea or fever. No chest pain or shortness of breath. No abdominal pain. No dysuria. States she just feels off.] Exam is [well-appearing 78-year-old female. Family members present in room. Vital signs are stable afebrile. Pulse ox 95% on room air no hypoxia. H EENT exam pupils round reactive light. Moist mucous membranes. Face scalp nontender no hematoma or laceration. C-spine and neck nontender. Lungs clear to auscultation bilaterally. Heart regular rhythm rate about 80 no murmur. Chest wall and ribs nontender. Abdomen soft nontender. Moving all 4 extremities. Nontender no deformity. Dorsi plantarflexion intact. Trace edema both lower extremities. Back nontender. Neurologically she is awake alert. Answer questions following commands. No focal motor deficits.] Medical Decision Making [78-year-old female fell at home when she went to sit down on a chair and missed it. Screening labs. CBC and chemistry are basically unremarkable other than mild dehydration. She is on Lasix and 2 blood pressure medications. Will ambulate her and also do orthostatic vital signs.] Other additions or changes: [Exam patient doing well. Orthostatic vital signs were negative. She was able to ambulate in the hallway with her walker. She and family are comfortable with her being discharged home. Outpatient follow-up. She has mild dehydration but we did not feel that we should hydrate her with IV fluids. She can orally hydrate at home.] History & Record Review Discussion w/independent historian: Patient and Family Additional record(s) reviewed:: Prior inpatient record, Prior outpatient record, Prior ED visit and Prior labs Lab Data Attestation: I reviewed the patient's lab results. Lab results narrative: CBC shows a white count of 7. H&H 14 and 42. Platelets 222 electrolytes show a gap of 9. BUN is elevated 27 creatinine 0.7. Glucose 114.. Labs: Laboratory Results - last 24 hr 06/18/24 20:53 WBC 7.3 RBC 4.64 Hgb 14.1 Hct 42.3 MCV 91.2 MCH 30.4 MCHC 33.3 RDW Std Deviation 41.5 RDW Coeff of Cory 12.6 Plt Count 222 MPV 9.3 Immature Gran % (Auto) 0.400 Neut % (Auto) 71.1 H Lymph % (Auto) 18.1 L Tift % (Auto) 9.1 Eos % (Auto) 1.0 Baso % (Auto) 0.3 Absolute Neuts (auto) 5.2 Absolute Lymphs (auto) 1.33 Nucleated RBC % 0 Sodium 139 Potassium 4.5 Chloride 102 Carbon Dioxide 27.6 Anion Gap 9 BUN 27 H Creatinine 0.70 Estim Creat Clear Calc 59.54 Est GFR (MDRD) Non-Af 88 BUN/Creatinine Ratio 38.3 H Glucose 114 H Calcium 10.4 Discharge Plan Triage Chief Complaint: Fall ED Midlevel Provider: Jennifer Meléndez ED Provider: Jay Hair Dx/Rx/DC Orders Clinical Impression: Fall, No traumatic injury Instructions: Falls Prevent Use Cane Walker Prescriptions: No Action potassium gluconate 595 mg (99 mg) tablet 595 mg PO DAILY PRN (Reason: for low levels) atorvastatin 40 mg tablet 40 mg PO QHS Qty: 90 3RF carvedilol 25 mg tablet 25 mg PO BID Qty: 180 3RF Rx Instructions: must administer with a meal/food nitroglycerin 0.4 mg tablet, sublingual 0.4 mg SUBLINGUAL Q5M PRN (Reason: Chest Pain) Qty: 25 2RF Patient Comments: chest pain aspirin 81 MG tablet,chewable 81 mg PO QHS Patient Comments: [facility] omeprazole 20 mg capsule,delayed release(DR/EC) 20 mg PO DAILY Qty: 90 3RF furosemide 40 mg tablet 40 mg PO DAILY Qty: 90 3RF lisinopril 20 mg tablet 20 mg PO BID Qty: 180 4RF Primary Care Provider: Lilly Fletcher Referrals: Lilly Fletcher MD [Primary Care Provider] - Activity Restrictions/Additional Instructions: Follow-up with your surgical asst to address your low blood pressure. Keep a daily log. Ice and take Tylenol as needed. If symptoms worsen come back to the ER. Print Language: Tuvaluan Disposition Disposition: Home, Self Care
[2024-06-18 20:58] LABS: Absolute Lymphocyte Count 1.33 X10^3/uL (0.83-4.51); Absolute Neutrophil Count 5.2 X10^3/uL (2.0-7.7); Basophil# 0.02 X10^3/uL; Basophil% 0.3 % (0-1); Eosinophil# 0.07 X10^3/uL; Hematocrit 42.3 % (37-47); Hemoglobin 14.1 g/dL (12.0-15.0); Lymphocyte # 1.33 X10^3/ul (0.83-4.51); Lymphocyte % 18.1 % (19-41); Mean Corp Hgb Conc 33.3 g/dL (32-36); Mean Corpuscular Hgb 30.4 pg (27.0-32.0); Mean Corpuscular Volume 91.2 fL (81-99); Mean Platelet Vol. 9.3 fl (6.2-12.0); Monocyte# 0.67 X10^3/uL; Monocyte% 9.1 % (0-10); NRBC Flagged by Analyzer 0 % (0-5); Neutrophil # 5.22 X10^3/uL (2.7-7.7); Neutrophil % 71.1 % (47-70); Platelet Count 222 K/mm3 (150-450); RBC Distribution Width CV 12.6 % (11.6-14.6); RBC Distribution Width SD 41.5 fl (35.1-43.9); Red Blood Count 4.64 M/mm3 (4.2-5.4); White Blood Count 7.3 K/mm3 (4.4-11.0)
[2024-06-18 21:15] LABS: Anion Gap 9 (5-15); BUN 27 mg/dL (4-19); BUN/Creat Ratio 38.3 RATIO (10-20); Calcium,Total 10.4 mg/dL (7.6-11.0); Carbon Dioxide 27.6 mmol/L (21.0-32.0); Chloride 102 mmol/L (98-108); EST Glomerular Filtration Rate 88 (>60); Estimated Creatinine Clearance 59.54 ml/min (50-250); Glucose 114 mg/dL (70-99); Potassium 4.5 mmol/L (3.3-5.1); Sodium Level 139 mmol/L (133-145)
[2024-06-18 21:18] VITALS: BP 119/83; BP 123/70; BP 129/97; PULSE 91; PULSE 96; PULSE 99
[2024-06-18] MEDS: Acetaminophen 325 MG Tablet 650 MG PO (21:57)
[2024-06-18 21:58] VITALS: BP 116/60; PULSE 91; RESP 16; TEMP 36.7; O2SAT 97
== END 2024-06-18 21:59 | disposition home or self-care (01) ==
PROVIDERS: Physician Assistant; Emergency Provider Emergency Medicine; PCP Family Medicine; Referring Provider Emergency Medicine; Visit Provider Emergency Medicine
DX: Z04.3 Encounter for examination and observation following other accident (principal); R03.1 Nonspecific low blood-pressure reading; R60.0 Localized edema; I25.10 Atherosclerotic heart disease of native coronary artery without angina pectoris; I10 Essential (primary) hypertension; E78.5 Hyperlipidemia, unspecified; Z79.82 Long term (current) use of aspirin; Z79.899 Other long term (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
CPT/HCPCS: 80048; 85025; 99285

== ENCOUNTER 2024-08-02 03:41 | Emergency (ER) | payer MEDICARE, SELFPAY ==
[2024-08-02 03:44] VITALS: BP 131/111; PULSE 71; RESP 20; TEMP 36.6; O2SAT 95; BMI 42.5
[2024-08-02 03:48] VITALS: BP 134/111; PULSE 70; RESP 20; TEMP 36.6; O2SAT 95
--- NOTE | 2024-08-02 04:13 | EDS_ITS ---
HPI History of Present Illness Chief Complaint: Weakness [facility] Medical History (Updated 08/02/24 @ 06:[address] Jaylen Jack, DO) Myocardial infarction Obesity Essential (primary) hypertension Atherosclerotic heart disease of [place] coronary artery without angina pectoris Hyperlipidemia GERD (gastroesophageal reflux disease) Osteoarthritis Morbid obesity with BMI of 40.0-44.9, adult Home Medications ?Medication ?Instructions ?Recorded ?Last Taken ?Type aspirin 81 mg chewable tablet 81 mg PO QHS 10/25/15 History potassium gluconate 595 mg (99 mg) 595 mg PO DAILY PRN for low levels 09/09/18 Unknown History tablet carvedilol 25 mg tablet 25 mg PO BID Dose has been 0 08/10/23 Unknown Rx increased #180 tabs nitroglycerin 0.4 mg sublingual 0.4 mg sublingual Q5M PRN Chest 08/10/23 Unknown Rx tablet Pain #25 tabs furosemide 40 mg tablet 40 mg PO DAILY this is a dos e 08/31/23 Unknown Rx increase #90 tabs lisinopril 20 mg tablet 20 mg PO BID #180 tabs 02/08 Unknown Rx atorvastatin 40 mg tablet 40 mg PO QHS #90 tabs Unknown Rx omeprazole 20 mg capsule,delayed 20 mg PO DAILY #90 ca ps 08/01/24 Unknown Rx release Allergy/AdvReac Type Severity Reaction Status Date / Time hydrochlorothiazide AdvReac Intermediate Constipatio Verified 08/02/24 03:43 n Family History Father CAD (coronary artery disease) Mother CHF (congestive heart failure) Sister Hypertension Surgical History History of cholecystectomy History of left heart catheterization (06/04/08) History of coronary angioplasty (09/20/07) History of laparoscopic cholecystectomy History of total hysterectomy Social History Smoking Status: Never smoker alcohol intake: never substance use type: does not use EXAM Physical Exam Const Vital Signs: 08/02/24 03:44 08/02/24 03:44 08/02/24 03:48 Temperature 97.8 F 97.8 F Temperature Source Oral Oral Pulse Rate 71 70 Respiratory Rate 20 H 20 H Respiratory Effort Normal Respiratory Pattern Normal Blood Pressure 131/111 H 134/111 H Blood Pressure Mean 117 118 Pulse Ox 95 95 Oxygen Delivery Method Room Air Room Air 08/02/24 04:48 08/02/24 05:00 08/02/24 06:00 Temperature 97.8 F 97.8 F 97.8 F Temperature Source Oral Oral Oral Pulse Rate 69 63 72 Respiratory Rate 18 18 18 Respiratory Effort Respiratory Pattern Blood Pressure 131/71 H 141/77 H 137/112 H Blood Pressure Mean 91 98 120 Pulse Ox 94 97 98 Oxygen Delivery Method Room Air Room Air Room Air [facility] [place] [facility] Narrative Medical decision making narrative: HISTORY OF PRESENT ILLNESS: Chief complaint: Weakness, dizziness, lightheadedness Atrial female history of of CAD, NH status post stent, hypertension, hyperlipidemia presents with multiple symptoms with diffuse weakness mostly in the lower extremities. Denies chest pain, shortness of breath. Denies cough fever chills. Denies headache or recent falls. Denies syncope. Has abdominal pain. Denies urinary frequency urgency or dysuria. Denies diarrhea melena hematochezia. Denies focal weakness REVIEW OF SYSTEMS: Pertinent positives: Diffuse weakness, dizziness and lightheadedness Pertinent negatives: as per HPI PHYSICAL EXAM: Nursing triage notes reviewed, Vital signs reviewed Constitutional: please see [facility] HENT: MMM Eyes: Pupils equal round and reactive to light, Extraocular muscles intact Neck: No stridor, no JVD, full neck ROM Lungs: Clear to auscultation, No wheezing or rales. No increased work of breathing, no conversational dyspnea, no accessory muscle use, no nasal flaring. No respiratory distress noted Heart: Regular rate and rhythm, No murmurs, No rubs and No gallops, 2+ distal pulses (radial, femoral, posterior tibial) in all extremities Abdomen: Soft, there is no tenderness, rigidity, rebound or guarding, no obvious peritoneal signs, no palpable pulsatile abdominal masses, no auscultated abdominal bruit : No CVAT Extremities: No edema Neuro: No new focal neurological deficits, cranial nerves II through XII intact, 5/5 strength in all present extremities. Intact sensation to light touch in all present extremities, 2+ reflexes bilateral patella tendons. Skin: No rash or lesions noted MEDICAL DECISION MAKING: Chief Complaint: please see HPI External records reviewed: Reviewed prior echocardiogram from 2023 showed ejection fraction 65%, stage I diastolic dysfunction but no regional wall motion abnormalities Factors affecting care: As per HPI Social determinants of health: none History obtained from others: Family Consults: none MDM Narrative: Patient was initially hemodynamically stable, afebrile nontoxic-appearing saturating 95% room air. Exam without focal neurologic deficits. No cardiopulmonary abnormalities. No abdominal tenderness noted on initial exam I considered the following differential diagnosis: ICH, mass, arrhythmia, anemia, electro disturbance, sepsis, ACS, pneumonia, heart failure I obtained a broad lab and imaging workup to further elucidate etiology of the patient's complaints. Initial resuscitated patient 1 L normal saline ALL IMAGES (IF OBTAINED) HAVE BEEN PERSONALLY REVIEWED AND INTERPRETED BY MYSELF. EKG with normal sinus rhythm rate of 65, left axis deviation, no STEMI Lactate is wnl indicating no end-organ hypoperfusion and/or hypoxia. High-sensitivity troponin is negative, no evidence of myocardial ischemia CBC without leukocytosis to suggest inflammation, no anemia or thrombocytopenia BMP without evidence of significant electrolyte abnormalities, no anion gap, no acute kidney injury. LFTs show no evidence of hepatobiliary pathology. I have personally reviewed the patient's chest x-ray. Chest x-ray is unremarkable for pulmonary edema, pneumothorax, pneumonia or focal cardiopulmonary abnormality. CT scan of the brain shows no evidence of ICH Urinalysis without evidence of infection There is no clear life or limb threatening etiology can be ascertained by the patient's labs, history or physical exam. She was able to ambulate here in the emergency department. She does have help at home. She does not require hospitalization at this time as patient have a specific etiology to treat. She was encouraged to follow-up with primary care physician for further outpatient valuation to return if symptoms change or worsen. The patient and/or family, caregivers express understanding. The patient and/or family, caregivers agrees with the plan. Shared decision making: I will have a discussion with the patient and or visitors regarding risk/benefits of further testing or admission. They will be made aware of of the risk/benefits inherent in this decision they will be given the opportunity to voice understanding. Total critical care time today provided was at least 0 minutes. This excludes separately billable procedures. Critical care time (if documented) is secondary to the patient having high probability of clinically significant/life threatening deterioration in the patient's condition which required my urgent intervention. Impression: 1. Diffuse weakness 2. Dizziness 3. History of CAD Dispo: Discharge home This note was generated with [employer] dictation software. It may contain incorrect words, spelling, and punctuation that were not noted in review of the chart prior to signing. Lab Data Labs: Laboratory Results - last 24 hr 08/02/24 08/02/24 08/02/24 03:50 05:00 06:09 WBC 6.8 RBC 4.50 Hgb 13.8 Hct 42.2 MCV 93.8 MCH 30.7 MCHC 32.7 RDW Std Deviation 43.5 RDW Coeff of Cory 12.6 Plt Count 201 MPV 10.0 Immature Gran % (Auto) 0.600 Neut % (Auto) 72.1 H Lymph % (Auto) 16.3 L Barnes % (Auto) 9.1 Eos % (Auto) 1.5 Baso % (Auto) 0.4 Absolute Neuts (auto) 4.9 Absolute Lymphs (auto) 1.11 Nucleated RBC % 0 Sodium 142 Potassium 3.8 Chloride 105 Carbon Dioxide 26.4 Anion Gap 10 BUN 23 H Creatinine 0.60 L Estim Creat Clear Calc 58.03 Est GFR (MDRD) Non-Af 91 BUN/Creatinine Ratio 38.1 H Glucose 117 H Lactic Acid 1.2 Calcium 10.5 Total Bilirubin 0.61 AST 17 ALT 13 Alkaline Phosphatase 107 H Troponin T High Sens 18 H Total Protein 6.5 Albumin 3.6 Globulin 2.9 Albumin/Globulin Ratio 1.2 Urine Color Yellow Urine Clarity Sl. Cloudy Urine pH 6.0 Ur Specific [place] 1.020 Urine Protein 30 H Urine Glucose (UA) Normal Urine Ketones Negative Urine Occult Blood Negative Urine Nitrite Negative Urine Bilirubin Negative Urine Urobilinogen Normal Ur Leukocyte Esterase Negative Urine RBC 0 SEEN Urine WBC 0-5 SEEN Ur Squamous Epith Cells 0-5 SEEN Urine Bacteria RARE Urine Mucus 0 SEEN Radiography Diagnostic Testing: Clinical Impression(s) from Imaging Studies Brain CT 08/02/24 04:44 IMPRESSION: No CT evidence for acute brain abnormality. Reading Location: [place] [address] Chest X-Ray 08/02/24 04:55 IMPRESSION: Mild bilateral basilar atelectatic pulmonary changes. Reading Location: [place] [address] Discharge Plan Triage Chief Complaint: Weakness ED Provider: Jaylen Jack Dx/Rx/DC Orders Clinical Impression: Weakness Prescriptions: No Action potassium gluconate 595 mg (99 mg) tablet 595 mg PO DAILY PRN (Reason: for low levels) carvedilol 25 mg tablet 25 mg PO BID Qty: 180 3RF Rx Instructions: must administer with a meal/food nitroglycerin 0.4 mg tablet, sublingual 0.4 mg SUBLINGUAL Q5M PRN (Reason: Chest Pain) Qty: 25 2RF Patient Comments: chest pain aspirin 81 MG tablet,chewable 81 mg PO QHS Patient Comments: [facility] furosemide 40 mg tablet 40 mg PO DAILY Qty: 90 3RF lisinopril 20 mg tablet 20 mg PO BID Qty: 180 4RF atorvastatin 40 mg tablet 40 mg PO QHS Qty: 90 3RF omeprazole 20 mg capsule,delayed release(DR/EC) 20 mg PO DAILY Qty: 90 3RF Primary Care Provider: Lilly Fletcher Referrals: Lilly Fletcher MD [Primary Care Provider] - Activity Restrictions/Additional Instructions: Thank you for trusting us with your care today! Your labs and images today were reassuring. Specifically there is no signs of bleeding in your brain, signs of pneumonia or heart failure, signs of sepsis, signs of systemic inflammation or anemia, signs of significant electrolyte abnormalities or kidney dysfunction, signs of liver dysfunction or UTI. Please take Tylenol (2 pills, 650 mg), ibuprofen (2 pills, 400 mg) every 6 hours as needed for pain and fever control. Please try to take in plenty of oral fluids. Please return to the emergency department if your symptoms change or worsen. Please follow with your primary care physician for further outpatient evaluation and management. Please discuss with your primary care physician changing to medication specific medications affect your blood pressure including carvedilol, furosemide, lisinopril. Also inquire about repeating an ultrasound of the heart (echocardiogram). Print Language: Green[place]ic
--- NOTE | 2024-08-02 04:34 | EKG12_ITS ---
Test Reason : WEAKNESS Blood Pressure : */* mmHG Vent. Rate : 65 BPM Atrial Rate : 65 BPM P-R Int : 106 ms QRS Dur : 104 ms QT Int : 420 ms P-R-T Axes : 15 -21 17 degrees QTcB Int : 436 ms Sinus rhythm with short MS Septal infarct , age undetermined Abnormal ECG Confirmed by DARIEL OHARA, ANGÉLICA ([id number]), editorial director [employer] ([id number]) on 08/08/2024 7:03:53 AM Referred By: Confirmed By: ANGÉLICA VIEIRA MD
[2024-08-02] MEDS: 0.9% Normal Saline (500mL Bag) 500 ML 1000 ML IV (04:40)
--- NOTE | 2024-08-02 04:44 | CT_ITS ---
PROCEDURE: BRAIN/HEAD WITHOUT CONTRAST 08/02/2024 REASON FOR EXAM: DIFFUSE WEAKNESS, DIZZINESS TECHNIQUE: Head CT without intravenous contrast. Coronal and Sagittal reconstruction series were provided. One or more dose reduction techniques were used (e.g., Automated exposure control, adjustment of the mA and/or kV according to patient size, use of iterative reconstruction technique. RADIATION DOSE SUMMARY: CTDlvol: 44.9 mGy DLP: 779 mGycm COMPARISON: None. FINDINGS: Mild diffuse cortical atrophy, commensurate with the patient's age. Scattered hypodense foci in the periventricular and subcortical white matter suggestive of chronic ischemic white matter disease. Normal size of the ventricles and extra-axial spaces for the patient's age. Normal basal ganglia and thalami. Normal brainstem. Normal cerebellum. There is no demonstrated extra-axial, intraparenchymal, or intraventricular hemorrhage. There are no findings of an acute ischemic infarction. Normal calvarium. There is no demonstrated fracture. Normal soft tissue structures. Mild chronic mucosal inflammatory changes of the right maxillary sinus. Normal remaining visualized paranasal sinuses. CT/Brain/Head without Contrast IMPRESSION: No CT evidence for acute brain abnormality. Reading Location: [id number]
[2024-08-02 04:47] LABS: Absolute Lymphocyte Count 1.11 X10^3/uL (0.83-4.51); Absolute Neutrophil Count 4.9 X10^3/uL (2.0-7.7); Basophil# 0.03 X10^3/uL; Basophil% 0.4 % (0-1); Eosinophils% 1.5 % (0-5); Hematocrit 42.2 % (37-47); Hemoglobin 13.8 g/dL (12.0-15.0); Lymphocyte # 1.11 X10^3/ul (0.83-4.51); Lymphocyte % 16.3 % (19-41); Mean Corp Hgb Conc 32.7 g/dL (32-36); Mean Corpuscular Hgb 30.7 pg (27.0-32.0); Mean Corpuscular Volume 93.8 fL (81-99); Monocyte# 0.62 X10^3/uL; Monocyte% 9.1 % (0-10); NRBC Flagged by Analyzer 0 % (0-5); Neutrophil # 4.92 X10^3/uL (2.7-7.7); Neutrophil % 72.1 % (47-70); Platelet Count 201 K/mm3 (150-450); RBC Distribution Width CV 12.6 % (11.6-14.6); RBC Distribution Width SD 43.5 fl (35.1-43.9); White Blood Count 6.8 K/mm3 (4.4-11.0)
--- OUTSIDE RECORDS SUMMARY | 2024-08-02 04:47 | XMS RPT_ITS | CCD ---
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 Lilly Fletcher Primary Care Provider Dr. Lilly Fletcher Referring Provider Sanjay TORRES, FRETTED STRING INSTRUMENT REPAIRER-C Ginger Attending Provider Sanjay TORRES, FRETTED STRING INSTRUMENT REPAIRER-C Ginger Referring Provider Sanjay TORRES, FRETTED STRING INSTRUMENT REPAIRER-C Ginger Other Provider Dr. Elie Davis Attending Provider Dr. Lilly Fletcher Primary Care Provider Dr. Lilly Fletcher Referring Provider Sanjay TORRES NP-C Ginger Attending Provider Dr. Elie Davis Attending Provider Dr. Lilly Fletcher Primary Care Provider Dr. Lilly Fletcher Referring Provider Sanjay TORRES, MELISSA-C Ginger Attending Provider Dr. Elie Davis Attending Provider Dr. Lilly Fletcher Primary Care Provider Dr. Lilly Fletcher Referring Provider Sanjay TORRES, MONICA Miles Attending Provider PEDRITO Hay Attending Provider Justine OHARA, Dr. Lilly Barnes Primary Care Provider [phone] Reginaldo OHARA, Dr. Thompson Referring Provider Dr. Jay Hair MD Emergency Provider Jolliff, Lilly S Referring Unavailable Sanjay TORRES, Ginger Attending Unavailable Jolliff, Lilly S Primary Care Unavailable Jolliff, Lilly S Primary Care Unavailable Kale Ansari NP Attending Unavailable Jolliff, Lilly S Primary Care Unavailable Elie Davis Attending Unavailable Jolliff, Lilly S Primary Care Unavailable Sanjay TORRES, Ginger Attending Unavailable Jolliff, Lilly S Primary Care Unavailable Jay Hair Attending Unavailable Jay Hair Referring Unavailable Gayle Us Attending Unavailable Jolliff, Lilly S Primary Care Unavailable Sanjay TORRES, Ginger Referring Unavailable Sanjay TORRES, Ginger Attending Unavailable Jolliff, Lilly S Primary Care Unavailable Grace FRETTED STRING INSTRUMENT REPAIRER, Ginger Attending Unavailable Jolliff, Lilly S Primary Care Unavailable Sanjay TORRES, Ginger Attending Unavailable Sanjay TORRES, Ginger Referring Unavailable Jolliff, Lilly S Primary Care Unavailable Sanjay TORRES, Ginger Attending Unavailable Sanjay FRETTED STRING INSTRUMENT REPAIRER, Ginger Referring Unavailable Jolliff, Lilly S Primary Care Unavailable Allergies Allergy Classification Reported Allergen(s) Allergy Type Date of Onset Reaction(s) Facility (5 sources) hydroCHLOROthiazide Drug Allergy 12-18-19 Drug-induced constipation with proper administration [facility] Comment on above: and urinary incontin ence (1 source) hydroCHLOROthiazide Drug Allergy 06-19-19 [facility] Repository Medications Current Medications Medication Drug Class(es) Dates Sig (Normalized) Sig (Original) aspirin 81 mg chewable tablet (20 sources) Nonsteroidal Anti-inflammatory Drug Start: 10-25-2015 take 1 tablet by mouth at bedtime Aspirin 81 MG tablet,chewable Active 81 mg PO AT BEDTIME October 25, 2015 12:00am Start: 09-16-2010 take 1 tablet by diomedes th once daily ASPIRIN 81 MG TABS One tablet by mouth daily Enteric Coated ASPIRIN [id number] Polly Mustafa Start: 09-16-2010 take 1 tablet by diomedes th once daily ASPIRIN 81 MG TABS One tablet by mouth daily Enteric Coated ASPIRIN [id number] Polly Mustafa Start: 09-16-2010 take 1 tablet by diomedes th once daily ASPIRIN EC 81 MG TBEC One tablet by mouth daily ASPIRIN [id number] Nella Valerio atorvastatin 40 mg oral tablet (20 sources) HMG-CoA Reductase Inhibitor Start: 09-16-2010 End: 08-10-2023 take 1 tablet by mouth at bedtime Atorvastatin 40 mg tablet Active 40 mg PO AT BEDTIME 90 August 10, 2023 10:01am carvedilol 25 mg oral tablet (20 sources) alpha-Adrenergic Sarmad, beta-Adrenergic Sarmad Start: 11-25-2021 End: 08-10-2023 take 1 tablet by mouth twice daily at mealtime Carvedilol 25 mg tablet Active 25 mg PO TWICE A DAY 180 August 10, 2023 10:01am must administer with a meal/food Start: 10-31-2021 End: 11-25-2021 take 2 tablets by mouth twice daily at mealtime Carvedilol 12.5 mg tablet Discontinued 25 mg PO TWICE A DAY 180 October 31, 2021 11:15am November 25, 2021 5:43pm must administer with a meal/food Start: 10-31-2021 End: 11-25-2021 take 25 mg by mouth twice daily at mealtime Carvedilol Discontinued 25 MG PO TWICE A DAY 180 October 31, 2021 10:15am November 25, 2021 4:43pm must administer with a meal/food Start: 09-13-2018 End: 10-31-2021 take 1 tablet by mouth twice daily at mealtime Carvedilol 12.5 mg tablet Discontinued 12.5 mg PO TWICE A DAY 180 September 27, 2021 3:35pm October 31, 2021 11:17am must administer with a meal/food Start: 09-01-2017 End: 09-13-2018 take 1 tablet by mouth twice daily Carvedilol 6.25 mg tablet Discontinued 6.25 mg PO TWICE A DAY 180 December 07, 2017 12:59pm September 09, 2018 10:52am Start: 09-24-2016 take 1 tablet by diomedes th twice daily COREG 3.125 MG TABS One tablet by mouth twice daily CARVEDILOL [id number] Kale Kendall Coty FRETTED STRING INSTRUMENT REPAIRER Start: 09-24-2016 take 1 tablet by idomedes th twice daily COREG 6.25 MG TABS One tablet by mouth twice daily CARVEDILOL [id number] Kale Kendall Coty FRETTED STRING INSTRUMENT REPAIRER furosemide 40 mg oral tablet (14 sources) Loop Diuretic Start: 08-31-2023 take 1 tablet by mouth once daily Furosemide 40 mg tablet Active 40 mg PO DAILY August 31, 2023 12:00am Start: 08-10-2023 End: 08-31-2023 take 2 tablets by mouth once daily Furosemide (Lasix) 20 mg tablet Discontinued 40 mg PO DAILY August 10, 2023 3:30pm August 31, 2023 1:33pm Start: 02-07-2022 End: 08-10-2023 take 1 tablet by mouth once daily Furosemide (Lasix) 20 mg tablet Discontinued 20 mg PO DAILY August 10, 2023 10:01am August 10, 2023 3:30pm Start: 12-25-2021 End: 02-07-2022 take 2 tablets by mouth once daily, then take 1 tablet by mouth once daily Furosemide (Lasix) 20 mg tablet Discontinued 20 mg PO DAILY December 25, 2021 12:00am February 07, 2022 11:29am Please take 2 tablets (40mg) daily x 3 days, and then 1 tablet (20mg) daily. lisinopril 20 mg oral tablet (20 sources) Angiotensin Converting Enzyme Inhibitor Start: 09-15-2019 End: 02-09-2024 take 1 tablet by mouth twice daily Lisinopril 20 mg tablet Active 20 mg PO TWICE A DAY February 09, 2024 12:02pm Start: 09-03-2017 End: 09-15-2019 take 1 tablet by mouth once daily Lisinopril 20 mg tablet Discontinued 20 mg PO DAILY September 09, 2019 12:34pm September 15, 2019 11:30am Start: 09-01-2017 End: 09-03-2017 take 1 tablet by mouth once daily Lisinopril (Zestril) 10 mg tablet Discontinued 10 mg PO daily September 01, 2017 12:00am September 03, 2017 10:50am Start: 10-26-2015 End: 09-01-2017 take 1 tablet by mouth once daily Lisinopril 5 MG tablet Discontinued 5 mg PO DAILY October 26, 2015 12:00am September 01, 2017 11:14am Start: 09-16-2010 End: 06-04-2012 take 1 tablet by mouth once daily ZESTRIL 10 MG TABS One tablet by mouth daily LISINOPRIL [id number] Kale Enoch Coty TORRES nitroglycerin 0.4 mg sublingual tablet (20 sources) Nitrate Vasodilator Start: 10-26-2015 End: 08-10-2023 Nitroglycerin 0.4 mg tablet, sublingual Active 0.4 mg SL Q5M as needed for Chest Pain August 10, 2023 10:01am Start: 10-26-2015 End: 04-18-2021 Nitroglycerin Active 0.4 MG SL Q5M April 18, 2021 8:44am Start: 02-27-2012 NITROSTAT 0.4 MG SUBL 1 tablet under tongue every 5 min up to 3 X NITROGLYCERIN [id number] Elie Davis MD Start: 09-16-2010 NITROGLYCERIN 0.4 MG/HR PT24 1 tablet under tongue every 5 min up to 3 X NITROGLYCERIN [id number] Polly Mustafa omeprazole 20 mg delayed release oral capsule (20 sources) Proton Pump Inhibitor Start: 10-25-2015 End: 08-12-2023 take 1 capsule by mouth once daily Omeprazole 20 mg capsule,delayed release(DR/EC) Active 20 mg PO DAILY August 12, 2023 10:17am Start: 03-04-2011 take 1 capsule by royal short twice daily PRILOSEC 20 MG CPDR One capsule by mouth twice daily OMEPRAZOLE [id number] Elie Davis MD Start: 03-04-2011 take 1 capsule by royal short twice daily PRILOSEC 20 MG CPDR One capsule by mouth twice daily LEONORAPRAZOLE [id number] Elie Davis MD Start: 09-16-2010 take 2 tablets by royal short twice daily PRILOSEC 20 MG CPDR Two tablets by mouth twice daily OMEPRAZOLE [id number] Polly Mustafa Start: 09-16-2010 take 2 tablets by mo [facility] twice daily PRILOSEC 20 MG CPDR Two tablets by mouth twice daily OMEPRAZOLE [id number] Polly Mustafa potassium gluconate 2.5 meq oral tablet (18 sources) Start: 09-09-2018 End: 09-09-2018 take 1 tablet by mouth once daily as needed Potassium Gluconate 595 mg (99 mg) tablet Active 595 mg PO DAILY as needed for for low levels September 09, 2018 10:49am Completed/Discontinued Medications Medication Drug Class(es) Dates Sig (Normalized) Sig (Original) atenolol 50 mg oral tablet (20 sources) beta-Adrenergic Sarmad Start: 09-16-2010 End: 09-01-2017 take 1 tablet by mouth once daily Atenolol 50 MG tablet Discontinued 50 mg PO DAILY October 25, 2015 12:00am September 01, 2017 11:14am cephalexin 500 mg oral capsule (2 sources) Cephalosporin Antibacterial Start: 03-25-2023 End: 04-04-2023 take 1 capsule by mouth every twelve hours Cephalexin 500 mg capsule Discontinued 500 mg PO Q12H 20 March 25, 2023 1:00am April 03, 2023 1:00am April 04, 2023 1:39am CLOBETASOL PROPIONATE (20 sources) Corticosteroid Start: 11-23-2015 End: 09-08-2016 TEMOVATE 0.05 % CREA as directed CLOBETASOL PROPIONATE [id number] Nella Y Iman Start: 11-23-2015 End: 09-08-2016 TEMOVATE 0.05 % CREA as dire cted CLOBETASOL PROPIONATE [id number] Nella Y DeFinis Start: 11-23-2015 TEMOVATE 0.05 % CREA as directed CLOBETASOL PROPIONATE [id number] Mary Prieto RN Start: 10-26-2015 End: 09-01-2017 apply 15 g topically twice daily Clobetasol-Emollient 15 GM cream Discontinued 1 NMA TOPICAL TWICE A DAY October 26, 2015 12:00am September 01, 2017 11:15am hydroCHLOROthiazide 25 mg oral tablet (20 sources) Thiazide Diuretic Start: 09-15-2019 End: 08-15-2021 take 1 tablet by mouth once daily Hydrochlorothiazide 25 mg tablet Discontinued 25 mg PO DAILY April 18, 2021 9:44am August 15, 2021 3:06pm Start: 03-10-2014 End: 09-12-2014 take 1 tablet by mouth once daily HYDROCHLOROTHIAZIDE 12.5 MG TABS One tablet by mouth daily HYDROCHLOROTHIAZIDE [id number] Vivien Haynes PA-C ipratropium (20 sources) Anticholinergic Start: 11-23-2015 End: 11-27-2015 take 1 spray(s) nasal route three times daily as needed ATROVENT 0.06 % SOLN sprays each nostril Three times a day, as needed IPRATROPIUM BROMIDE Elie Davis MD Start: 11-23-2015 take 1 spray(s) nasa l route three times daily as needed ATROVENT 0.06 % SOLN sprays each nostril Three times a day, as needed IPRATROPIUM BROMIDE Mary Prieto RN Start: 10-26-2015 End: 09-01-2017 Ipratropium [place] 1 SPRAY spray,non-aerosol Discontinued 2 NMA NASAL THREE TIMES A DAY 2 October 26, 2015 11:11am September 01, 2017 11:15am Start: 10-26-2015 End: 09-01-2017 Ipratropium [place] Disconti nued 2 SPRAY NASAL THREE TIMES A DAY 2 October 26, 2015 10:11am September 01, 2017 10:15am isosorbide (20 sources) Start: 03-25-2011 End: 08-13-2011 take 1 tablet by mouth once daily IMDUR 30 MG [id number] One tablet by mouth daily ISOSORBIDE MONONITRATE [id number] Sofie Cornejo RN Start: 03-25-2011 take 1 tablet by diomedes th once daily IMDUR 30 MG [id number] One tablet by mouth daily ISOSORBIDE MONONITRATE [id number] Yolanda Larose RN MULTIPLE VITAMIN (14 sources) Start: 11-23-2015 take 1 tablet by mouth once daily MULTIVITAMINS TABS One tablet by mouth daily MULTIPLE VITAMIN Mary Willis Prieto RN Multivitamin With Folic Acid (8 sources) Start: 10-25-2015 End: 09-09-2018 take 1 tablet by mouth once daily Multivitamin With Folic Acid Discontinued 1 TABLET PO DAILY October 25, 2015 4:01pm September 09, 2018 10:48am Start: 10-25-2015 End: 09-09-2018 take 1 tablet by mouth once daily Multivitamin With Folic Acid Discontinued 1 TABLET PO DAILY October 24, 2015 11:00pm September 09, 2018 9:48am Start: 10-25-2015 End: 09-09-2018 take 1 tablet by mouth once daily Multivitamin With Folic Acid Discontinued 1 TABLET PO DAILY October 25, 2015 12:00am September 09, 2018 10:48am Multivitamin With Folic Acid 1 TABLET tablet (1 source) Start: 10-25-2015 End: 09-09-2018 take 1 tablet by mouth once daily Multivitamin With Folic Acid 1 TABLET tablet Discontinued 1 {tbl} PO DAILY October 25, 2015 12:00am September 09, 2018 10:48am niacin 500 mg oral tablet (20 sources) Nicotinic Acid Start: 09-16-2010 End: 09-12-2014 take 1 tablet by mouth once daily NIACIN 500 MG TABS One tablet by mouth daily NIACIN [id number] Ssuanne Jordan RN Start: 09-16-2010 End: 03-04-2012 take 1 tablet by mouth at bedtime NIASPAN 500 MG CR-TABS 1 tablet by mouth at bedtime with low fat snack NIACIN (ANTIHYPERLIPIDEMIC) [id number] Susanne Jordan RN sertraline 25 mg oral tablet (20 sources) Serotonin Reuptake Inhibitor Start: 10-26-2015 End: 09-01-2017 take 1 tablet by mouth once daily Sertraline 25 MG tablet Discontinued 25 mg PO DAILY October 26, 2015 12:00am September 01, 2017 11:15am sucralfate 1000 mg oral tablet (8 sources) Aluminum Complex Start: 10-12-2021 End: 07-02-2022 take 1 tablet by mouth four times daily at bedtime Sucralfate (Carafate) 1 gram tablet Discontinued 1 g PO 4 TIMES DAILY 56 October 12, 2021 12:00am July 02, 2022 11:36am 1 g orally before each meal and at bedtime Problems Active Problems Problem Classification Problem Date Documented Date Episodic/Chronic Cardiac dysrhythmias (20 sources) Palpitations; Translations: [Palpitations] Episodic Coronary atherosclerosis and other heart disease (20 sources) Coronary atherosclerosis; Translations: [Coronary arteriosclerosis] Onset: 09-16-2010 09-16-2010 Chronic Disorders of lipid metabolism (20 sources) Hyperlipidemia; Translations: [Hyperlipidemia, unspecified] Onset: 03-25-2011 03-25-2011 Chronic E Codes: Fall (1 source) Fall; Translations: [Unspecified fall, initial encounter] 06-18-2024 Episodic Esophageal disorders (20 sources) Gastroesophageal reflux disease; Translations: [Gastro-esophageal reflux disease without esophagitis] 10-31-2021 Chronic Essential hypertension (9 sources) Essential hypertension; Translations: [Essential (primary) hypertension] 09-08-2018 Chronic Heart valve disorders (20 sources) Systolic murmur; Translations: [Cardiac murmur, unspecified] Onset: 12-07-2012 12-07-2012 Episodic Hypertension with complications and secondary hypertension (20 sources) Essential (primary) hypertension; Translations: [Unspecified essential hypertension] Onset: 03-28-2015 03-28-2015 Chronic Malaise and fatigue (1 source) Fatigue; Translations: [Other fatigue] 07-24-2023 Episodic Other injuries and conditions due to external causes (1 source) Encounter for examination and observation following other accident; Translations: [Encounter for examination and observation following other accident] Onset: 06-22-2024 Episodic Other lower respiratory disease (7 sources) Dyspnea on exertion; Translations: [Other forms of dyspnea] 10-31-2021 Episodic Other nutritional; endocrine; and metabolic disorders (9 sources) Body mass index 40+ - severely obese; Translations: [Morbid (severe) obesity due to excess calories] 09-08-2018 Chronic Unclassified (4 sources) Long-term drug therapy; Translations: [Other skilled nursing (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] Onset: 09-16-2010 09-16-2010 Unclassified (1 source) No traumatic injury 06-18-2024 Urinary tract infections (3 sources) Cystitis; Translations: [Cystitis, unspecified without hematuria] 03-26-2023 Episodic Past or Other Problems Problem Classification Problem Date Documented Da te Episodic/Chronic Coronary atherosclerosis and other heart disease (20 sources) Coronary angioplasty status; Translations: [Past history of procedure] Onset: 09-20-2007 09-16-2010 Episodic Comment on above: POBA-OM2 Nonspecific chest pain (20 sources) Precordial pain; Translations: [Chest pain] Onset: 09-16-2010 09-16-2010 Episodic Other aftercare (10 sources) Other hydroelectric plant 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; Translations: [Other hydroelectric plant 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] Onset: 09-16-2010 09-16-2010 Episodic Other lower respiratory disease (5 sources) Other forms of dyspnea; Translations: [Other respiratory abnormalities] Onset: 11-09-2023 Episodic Residual codes; unclassified (20 sources) Family history of stroke; Translations: [Other specified health status] Onset: 07-20-2013 03-01-2014 Episodic Residual codes; unclassified (4 sources) Other specified health status; Translations: [Other specified health status] Onset: 07-20-2013 07-20-2013 Episodic Residual codes; unclassified (4 sources) FH: Raised blood lipids; Translations: [Family history of other endocrine, nutritional and metabolic diseases] 03-01-2014 Episodic Residual codes; unclassified (4 sources) FH: Hypertension; Translations: [Family history of ischemic heart disease and other diseases of the circulatory system] 03-01-2014 Episodic Results Test Name Value Interpretation Reference Range Facility Absolute neutrophil countOrd ered By: Jennifer Meléndez on 06-18-2024 Neutrophils (Bld) [#/Vol] 5.2 10*3/uL 2.0-7.7 [facility] Anion gap in Serum or Plasma Ordered By: Jennifer Meléndez on 06-18-2024 Anion gap [Moles/Vol] 9 mmol/L - [facility] BUN/creatinine ratioOrdered By: Jennifer Meléndez on 06-18-2024 Urea nitrogen/Creatinine [Mass ratio] 38.3 mg/mg High 12-19 [facility] Basic Metabolic Profile (BMP )on 06-18-2024 BUN/CRE 38.3 RATIO High 12-19 [facility] Comment on above: Performed By: #### L 500.2500, L100.0100 #### [facility] [address] [place], [address] Calcium [Mass/Vol] 10.4 mg/dL Normal 7.6-11.0 [facility] Comment on above: Performed By: #### L 500.2500, L100.0100 #### [facility] [address] [place], [address] Chloride [Moles/Vol] 102 mmol/L Normal 98-108 [facility] Comment on above: Performed By: #### L 500.2500, L100.0100 #### [facility] [address] [place], [address] CO2 [Moles/Vol] 27.6 mmol/L Normal 21.0-32.0 [facility] Comment on above: Performed By: #### L 500.2500, L100.0100 #### [facility] [address] [place], [address] Creatinine [Mass/Vol] 0.70 mg/dL Normal 0.70-1.20 [facility] Comment on above: Performed By: #### L 500.2500, L100.0100 #### [facility] [address] [place], [address] ECRCL 59.54 ml/min Normal 50-250 [facility] Comment on above: Performed By: #### L 500.2500, L100.0100 #### [facility] [address] [place], [address] GAP 9 Normal 5-15 [facility] Comment on above: Performed By: #### L 500.2500, L100.0100 #### [facility] [address] [place], [address] GFR/1.73 sq M.predicted among non-blacks MDRD (S/P/Bld) [Vol rate/Area] 88 mL/min/{1.73_m2} Normal >60 [facility] Comment on above: Result Comment: mL/m in/1.73m2 CKD-EPI Creatinine Equation (2020) Performed By: #### L 500.2500, L100.0100 #### [facility] [address] [place], [address] Glucose [Mass/Vol] 114 mg/dL High 70-99 [facility] Comment on above: Performed By: #### L 500.2500, L100.0100 #### [facility] [address] [place], [address] Potassium [Moles/Vol] 4.5 mmol/L Normal 3.3-5.1 [facility] Comment on above: Performed By: #### L 500.2500, L100.0100 #### [facility] [address] [place], [address] Sodium [Moles/Vol] 139 mmol/L Normal 133-145 [facility] Comment on above: Performed By: #### L 500.2500, L100.0100 #### [facility] [address] [place], [address] Urea nitrogen [Mass/Vol] 27 mg/dL High 4-19 [facility] Comment on above: Performed By: #### L 500.2500, L100.0100 #### [facility] [address] [place], [address] Basophil percentageOrdered B y: Jennifer Rika on 06-18-2024 Basophils/100 WBC (Bld) 0.3 % 0-1 [facility] CBC W/Diff, Automatedon 05-31 Absolute Lymph 1.33 X10 3/uL Normal 0.83-4.51 [facility] Comment on above: Performed By: #### L 500.2500, L100.0100 #### [facility] [address] [place], [address] Absolute Neut 5.2 X10 3/uL Normal 2.0-7.7 [facility] Comment on above: Performed By: #### L 500.2500, L100.0100 #### [facility] [address] [place], [address] Basophils/100 WBC (Bld) 0.3 % Normal 0-1 [facility] Comment on above: Performed By: #### L 500.2500, L100.0100 #### [facility] [address] [place], [address] Eosinophils/100 WBC (Bld) 1.0 % Normal 0-5 [facility] Comment on above: Performed By: #### L 500.2500, L100.0100 #### [facility] [address] [place], [address] Erythrocyte distribution width (RBC) [Ratio] 12.6 % Normal 11.6-14.6 [facility] Comment on above: Performed By: #### L 500.2500, L100.0100 #### [facility] [address] [place], [address] Hematocrit (Bld) [Volume fraction] 42.3 % Normal 37-47 [facility] Comment on above: Performed By: #### L 500.2500, L100.0100 #### [facility] [address] [place], [address] Hemoglobin (Bld) [Mass/Vol] 14.1 g/dL Normal 12.0-15.0 [facility] Comment on above: Performed By: #### L 500.2500, L100.0100 #### [facility] [address] [place], [address] IG% 0.400 Normal 0.0-0.9 [facility] Comment on above: Result Comment: IG% - Immature Granulocytes (promyelocytes, myelocytes and metamyelocytes) > 1% indicates that a LEFT SHIFT is Present. Performed By: #### L 500.2500, L100.0100 #### [facility] [address] [place], [address] Lymphocytes/100 WBC (Bld) 18.1 % Low 19-41 [facility] Comment on above: Performed By: #### L 500.2500, L100.0100 #### [facility] [address] [place], [address] MCH (RBC) [Entitic mass] 30.4 pg Normal 27.0-32.0 [facility] Comment on above: Performed By: #### L 500.2500, L100.0100 #### [facility] [address] [place], [address] MCHC (RBC) [Mass/Vol] 33.3 g/dL Normal 32-36 [facility] Comment on above: Performed By: #### L 500.2500, L100.0100 #### [facility] [address] [place], [address] MCV (RBC) [Entitic vol] 91.2 fL Normal 81-99 [facility] Comment on above: Performed By: #### L 500.2500, L100.0100 #### [facility] [address] [place], [address] Monocytes/100 WBC (Bld) 9.1 % Normal 0-10 [facility] Comment on above: Performed By: #### L 500.2500, L100.0100 #### [facility] [address] [place], [address] Neutrophils/100 WBC (Bld) 71.1 % High 47-70 [facility] Comment on above: Performed By: #### L 500.2500, L100.0100 #### [facility] [address] [place], [address] Nucleated RBC (Bld) [#/Vol] 0 10*3/uL Normal 0-5 [facility] Comment on above: Performed By: #### L 500.2500, L100.0100 #### [facility] [address] [place], [address] Platelet mean volume (Bld) [Entitic vol] 9.3 fL Normal 6.2-12.0 [facility] Comment on above: Performed By: #### L 500.2500, L100.0100 #### [facility] [address] [place], [address] Platelets (Bld) [#/Vol] 222 10*3/uL Normal 150-450 [facility] Comment on above: Performed By: #### L 500.2500, L100.0100 #### [facility] [address] [place], [address] RBC (Bld) [#/Vol] 4.64 10*6/uL Normal 4.2-5.4 [facility] Comment on above: Performed By: #### L 500.2500, L100.0100 #### [facility] [address] [place], [address] RDW SD 41.5 fl Normal 35.1-43.9 [facility] Comment on above: Performed By: #### L 500.2500, L100.0100 #### [facility] [address] [place], [address] WBC (Bld) [#/Vol] 7.3 10*3/uL Normal 4.4-11.0 [facility] Comment on above: Performed By: #### L 500.2500, L100.0100 #### [facility] [address] [place], [address] Carbon dioxide, total [Moles /volume] in Central venous bloodOrdered By: Jennifer Meléndez on 06-18-2024 CO2 [Moles/Vol] 27.6 mmol/L 21.0-32.0 [facility] Chloride assayOrdered By: Myriam Meléndez on 06-18-2024 Chloride [Moles/Vol] 102 mmol/L 98-108 [facility] Emergency Department Summary on 06-18-[address] [facility] Department [address] [place] [address] Emergency Department Summary 06/18/24 MR#: [id number] Acct: [id number] Name: AYAN CARRILLO Rep #: [id number] : 1945 78 From: Jennifer MAJOR PCP: Dr. Lilly Fletcher MD Status:REG ER Location: ED HPI HPI - Fall History of Present Illness Chief Complaint: Fall Narrative Narrative: 78-year-old female with PMH of HTN, HLD, CAD, GERD went to sit down this evening and missed her chair and fell backwards landing on her back. She hit her head on the ground but denies LOC. Family called EMS who recommended she be seen. Patient denies pain or injury. She is not on blood thinners. She is primarily concerned about 6+ months of ongoing lightheadedness in the morning she attributes to her blood pressure medication. She is prescribed lisinopril 20 mg BID and carvedilol 20 mg BID but instead of taking the pills together in the morning she spaces them out by 4 hours in the morning in the evening to treat her lightheadedness. She states her cardiology appointment has been delayed and is now in the seventh to discuss this issue. She has had no recent chest pain, shortness of breath, palpitations or syncope. [facility] Medical History Obesity Essential (primary) hypertension Atherosclerotic heart disease of [place] coronary artery without angina pectoris Hyperlipidemia GERD (gastroesophageal reflux disease) Osteoarthritis Morbid obesity with BMI of 40.0-44.9, adult Home Medications ???Medication ???Instructions ???Recorded ???Last Taken ???Type aspirin 81 mg chewable tablet 81 mg PO QHS 10/25/15 10/24/15 His tory potassium gluconate 595 mg (99 mg) 595 mg PO DAILY PRN for low leve ls 07/11/19 Unknown History tablet atorvastatin 40 mg tablet 40 mg PO QHS #90 tabs 08/10/23 Unk nown Rx carvedilol 25 mg tablet 25 mg PO BID Dose has been 4 Unknown Rx increased #180 tabs nitroglycerin 0.4 mg sublingual 0.4 mg sublingual Q5M PRN Chest Unknown Rx tablet Pain #25 tabs omeprazole 20 mg capsule,delayed 20 mg PO DAILY #90 caps 08/12/23 U nknown Rx release furosemide 40 mg tablet 40 mg PO DAILY this is a dose 03/25 Unknown Rx increase #90 tabs lisinopril 20 mg tablet 20 mg PO BID #180 tabs 02/09/24 Un known Rx Allergy/AdvReac Type Severity Reaction Status Date / Time hydrochlorothiazide AdvReac Intermediate Constipatio Verified 06/18/24 20:38 n Family History Father CAD (coronary artery disease) Mother CHF (congestive heart failure) Sister Hypertension Surgical History History of cholecystectomy History of left heart catheterization (06/04/08) History of coronary angioplasty (09/20/07) History of laparoscopic cholecystectomy History of total hysterectomy Social History Smoking Status: Never smoker alcohol intake: never substance use type: does not use ROS ROS ED ROS Narrative Constitutional: Negative for fever, chills, malaise. CVS: Negative for palpitations, chest pain, syncope. Respiratory: Negative for shortness of breath, cough. GI: Negative for abdominal pain, nausea, vomiting, diarrhea, melena, hematochezia. Neuro: Negative for headache. EXAM Physical Exam Narrative Exam Narrative: CONST: Patient sitting in no acute distress. EYES: Normal inspection. HEAD: Normocephalic atraumatic. NECK: Normal inspection. No midline spinal tenderness, no step off or crepitus. RESP: No respiratory distress, CTAB. CVS: Regular rate and rhythm, no murmur, no gallop. ABD: Soft and nontender, no guarding or rebound, nondistended. Back: Normal inspection, no midline tenderness. SKIN: Color normal, no rash, warm, dry, intact. EXTREMITIES: Normal appearance, no bony tenderness of upper or lower extremities, chronic bilateral ankle edema. 2+ radial and PT pulses. NEURO: Alert and answering questions appropriately. PSYCH: Normal affect. Const Vital Signs: 06/18/24 20:34 06/18/24 20:38 06/18/24 21:18 Temperature 97.8 F Temperature Source Oral Pulse Rate 77 Pulse Rate [Lying] 99 Pulse Rate [Sitting (for 1 minute prior to obtaining)] 96 Pulse Rate [Standing (for 1 minute prior to obtaining)] 91 Respiratory Rate 20 H Respiratory Effort Normal Respiratory Depth Normal Respiratory Pattern Normal Blood Pressure 135/98 H Blood Pressure [Lying] 119/83 H Blood Pressure [Sitting (for 1 minute prior to obtaining)] 123/70 H Blood Pressure [Standing (for 1 minute prior to obtaining)] 129/97 H Blood Pressure Mean 110 Blood Pressure Mean [Lying] 95 (more content not included)... Normal [facility] Eosinophil percentageOrdered By: Jennifer Meléndez on 06-18-2024 Eosinophils/100 WBC (Bld) 1.0 % 0-5 [facility] Erythrocyte distribution wid th (RBC) [Ratio]Ordered By: Jennifer Meléndez on 06-18-2024 Erythrocyte distribution width (RBC) [Entitic vol] 41.5 fL 35.1-43.9 [facility] Erythrocyte distribution wid th ratioOrdered By: Jennifer Meléndez on 06-18-2024 Erythrocyte distribution width (RBC) [Ratio] 12.6 % 11.6-14.6 [facility] Estimation of creatinine renea aranceOrdered By: Jennifer Meléndez on 06-18-2024 Estimated Creatinine Clearance Calc 59.54 ml/min 50-250 [facility] GFR/1.73 sq M.predicted bronson g non-blacks MDRD (S/P/Bld) [Vol rate/Area]Ordered By: Jennifer Meléndez on 06-18-2024 Estimated GFR (MDRD) Non-Af Amer 88 >60 [facility] Comment on above: mL/min/1.73m2 CKD-EP I Creatinine Equation (2020) Hematocrit Auto (Bld) [Volum e fraction]Ordered By: Jennifer Meléndez on 06-18-2024 Hematocrit (Bld) [Volume fraction] 42.3 % 37-47 [facility] Hemoglobin measurementOrdere d By: Jennifer Meléndez on 06-18-2024 Hemoglobin (Bld) [Mass/Vol] 14.1 g/dL 12.0-15.0 [facility] Immature granulocytes/100 WB C Auto (Bld)Ordered By: Jennifer Meléndez on 06-18-2024 Immature granulocytes/100 WBC (Bld) 0.400 % 0.0-0.9 [facility] Comment on above: IG% - Immature Granu locytes (promyelocytes, myelocytes and metamyelocytes) > 1% indicates that a LEFT SHIFT is Present. Lymphocytes Auto (Unsp spec) [#/Vol]Ordered By: Jennifer Meléndez on 06-18-2024 Lymphocytes (Bld) [#/Vol] 1.33 10*3/uL 0.83-4.51 [facility] Lymphocytes/100 WBC Auto (Un sp spec)Ordered By: Jennifer Meléndez on 06-18-2024 Lymphocytes/100 WBC (Bld) 18.1 % Low 19-41 [facility] MCV (mean corpuscular volume ) determinationOrdered By: Jennifer Meléndez on 06-18-2024 MCV (RBC) [Entitic vol] 91.2 fL 81-99 [facility] Mean corpuscular hemoglobin (MCH) determinationOrdered By: Jennifer Meléndez on 06-18-2024 MCH (RBC) [Entitic mass] 30.4 pg 27.0-32.0 [facility] Mean corpuscular hemoglobin concentration (MCHC) determinationOrdered By: Jennifer Meléndez on 06-18-2024 MCHC (RBC) [Mass/Vol] 33.3 g/dL 32-36 [facility] Mean platelet volume determi nationOrdered By: Jennifer Meléndez on 06-18-2024 Platelet mean volume (Bld) [Entitic vol] 9.3 fL 6.2-12.0 [facility] Monocyte percentageOrdered B y: Jennifer Meléndez on 06-18-2024 Monocytes/100 WBC (Bld) 9.1 % 0-10 [facility] Neutrophil percentageOrdered By: Jennifer Meléndez on 06-18-2024 Neutrophils/100 WBC (Bld) 71.1 % High 47-70 [facility] Nucleated red blood cell per centageOrdered By: Jennifer Meléndez on 06-18-2024 Nucleated RBC/100 WBC (Bld) [Ratio] 0 % 0-5 [facility] Platelet countOrdered By: Myriam Meléndez on 06-18-2024 Platelets (Bld) [#/Vol] 222 10*3/uL 150-450 [facility] Potassium (Unsp spec) [Mass/ Vol]Ordered By: Jennifer Meléndez on 06-18-2024 Potassium [Moles/Vol] 4.5 mmol/L 3.3-5.1 [facility] RBC Auto (Bld) [#/Vol]Ordere d By: Jennifer Meléndez on 06-18-2024 RBC (Bld) [#/Vol] 4.64 10*6/uL 4.2-5.4 [facility] Serum creatinine measurement (mass/volume)Ordered By: Jennifer Meléndez on 06-18-2024 Creatinine [Mass/Vol] 0.70 mg/dL 0.70-1.20 [facility] Serum glucose measurement (m ass/volume)Ordered By: Jennifer Meléndez on 06-18-2024 Glucose [Mass/Vol] 114 mg/dL High 70-99 [facility] Serum or plasma calcium aaron urement (mass/volume)Ordered By: Jennifer Meléndez on 06-18-2024 Calcium [Mass/Vol] 10.4 mg/dL 7.6-11.0 [facility] Serum or plasma urea nitroge n measurement (mass/volume)Ordered By: Jennifer Meléndez on 06-18-2024 Urea nitrogen [Mass/Vol] 27 mg/dL High 4-19 [facility] Sodium levelOrdered By: Jennifer Meléndez on 06-18-2024 Sodium [Moles/Vol] 139 mmol/L 133-145 [facility] White blood cell (WBC) count Ordered By: Jennifer Meléndez on 06-18-2024 WBC (Bld) [#/Vol] 7.3 10*3/uL 4.4-11.0 [facility] Echo Complete W/ Contraston 10-06-2023 Echo Complete W/ Contrast [facility] [address] [place] [address] Echo Complete W/ Contrast 10/06/23 1404 MR#: [id number] Acct: [id number] Name: AYAN CARRILLO Rep #: [id number] : 1945 78 From: Elie Davis MD Attending Dr: Ginger Grace NP-C Status: REG C Ordering Dr: Ginger Grace NP FRETTED STRING INSTRUMENT REPAIRER-C Date: 10/06/23 Location: CVS Sex: F C Admitted: Reason For Study: ANTHONY/SOB Procedure This was a 2D Doppler, Color Flow transthoracic echocardiogram. The study was technically difficult. Contrast injection was performed. Exam performed in department. Left Ventricle Normal LV size. Left ventricular systolic function is normal. The left ventricular ejection fraction is 65 %. Stage 1 diastolic dysfunction. No regional wall motion abnormalities noted. Right Ventricle Normal RV size. Normal systolic function. Atria Normal left atrium. Normal right atrium. Hypermobile atrial septum. Bubble contrast study negative for right to left interatrial shunt. Mitral Valve Normal mitral valve. Tricuspid Valve Normal tricuspid valve. Mild tricuspid valve insufficiency. Pulmonary artery systolic pressure is 33 mmHg. Aortic Valve Trisinus/trileaflet aortic valve. Mild focal aortic valve calcification. Pericardium/Pleural No pericardial effusion. Medication 22 gauge I.V. with prn adaptor inserted into right arm. Diluted definity 2.5ml given slow IV push to enhance endocardial definition. Performed a rapid injection of agitated mix of 9 cc saline and 1cc air to assess for atrial septal defect. MMode/2D Measurements Calculations LVIDd: 4.5 cm IVSd: 0.93 cm Ao root diam: 3.3 cm LVIDs: 3.1 cm LVPWd: 1.2 cm LA dimension: 4.4 cm RVDd: 4.2 cm FS: 31.2 % _ LAV(MOD-bp): 52.7 ml LVAd ap4: 28.9 cm2 SV(MOD-sp4): 56.3 ml LAV(MOD-bp) Indexed: 27.9 ml/m2 LVLd ap4: 8.1 cm LAV(MOD-sp2): 59.4 ml EDV(MOD-sp4): 83.0 ml LAV(MOD-sp4): 45.4 ml EDV(sp4-el): 87.3 ml LVAs ap4: 14.1 cm2 LVLs ap4: 6.2 cm ESV(MOD-sp4): 26.7 ml ESV(sp4-el): 27.2 ml EF(MOD-sp4): 67.9 % EF(sp4-el): 68.8 % _ SV(sp4-el): 60.1 ml LA A4 area: 16.7 cm2 RA A4 area: 15.3 cm2 _ TAPSE: 1.6 cm Time Measurements MV dec time: 0.27 sec Doppler Measurements Calculations MV E max celestine: 79.9 cm/sec Lat Peak E' Celestine: 7.8 cm/sec Med Peak E' Celestine: 4.0 cm/sec MV A max celestine: 113.7 cm/sec E/E' lat: 10.3 E/E' med: 19.7 MV E/A: 0.70 _ MV V2 max: 134.3 cm/sec MV P1/2t max celestine: 84.9 cm/sec Ao V2 max: 169.9 cm/sec MV max P.2 mmHg MV P1/2t: 102.9 msec Ao max P.6 mmHg MV V2 mean: 62.0 cm/sec MV dec slope: 241.8 cm/sec2 Ao V2 mean: 112.0 cm/sec MV mean P.9 mmHg Ao mean P.8 mmHg MV V2 VTI: 41.8 cm MVA(P1/2t): 2.1 cm2 Ao V2 VTI: 41.1 cm AV (velocity ratio): 0.64 _ LV V1 max: 115.0 cm/sec PA V2 max: 117.3 cm/sec TR max celestine: 276.0 cm/sec LV V1 max P.3 mmHg TR max P.5 mmHg LV V1 mean P.8 mmHg LV V1 mean: 78.5 cm/sec LV V1 VTI: 26.1 cm ECHO/Echo Complete W/ Contrast Interpretation Summary Normal LV size. Left ventricular systolic function is normal. The left ventricular ejection fraction is 65 %. Stage 1 diastolic dysfunction. Hypermobile atrial septum. Bubble contrast study negative for right to left interatrial shunt. Ordering Physician: Ginger Grace Referring Physician: Lilly Fletcher M.D. Performed By: Ahmet Fish MARY BETH 10/06/231627 Date Elie Davis MD CC: MONICA Grace; Dr. Lilly Fletcher MD Date Dictated: 10/06/231403 Date Transcribed: 10/06/231627 Managing Partner: Signed Normal [facility] Basic Metabolic Profile (BMP )on 09-04-2023 BUN/CRE 24.2 RATIO High 10-20 [facility] Comment on above: Order Comment: DIDNT WANT TO DO OTHER INTERNALS LABS DUE IN JANUARY Performed By: #### L 500.2500 ####[facility] [address] [place], [address] CA,Total 10.1 mg/dL Normal 8.5-10.1 [facility] Comment on above: Order Comment: DIDNT WANT TO DO OTHER INTERNALS LABS DUE IN JANUARY Performed By: #### L 500.2500 ####[facility] [address] [place], [address] Chloride [Moles/Vol] 108 mmol/L High 98-107 [facility] Comment on above: Order Comment: DIDNT WANT TO DO OTHER INTERNALS LABS DUE IN JANUARY Performed By: #### L 500.2500 ####[facility] [address] [place], [address] CO2 [Moles/Vol] 28.0 mmol/L Normal 21.0-32.0 [facility] Comment on above: Order Comment: DIDNT WANT TO DO OTHER INTERNALS LABS DUE IN JANUARY Performed By: #### L 500.2500 ####[facility] [address] [place], [address] Creatinine [Mass/Vol] 0.62 mg/dL Normal 0.55-1.02 [facility] Comment on above: Order Comment: DIDNT WANT TO DO OTHER INTERNALS LABS DUE IN JANUARY Result Comment: The validity of the calculated GFR GFRAA in patients over 70 years has not been determined. Clinical correlation is essential. Performed By: #### L 500.2500 ####[facility] [address] [place], [address] EST GFR - AA 119 mL/min Normal >60 [facility] Comment on above: Order Comment: DIDNT WANT TO DO OTHER INTERNALS LABS DUE IN JANUARY Result Comment: Afri can Prydeinig GFR Calc Performed By: #### L 500.2500 ####[facility] [address] [place], [address] GAP 6 Normal 5-15 [facility] Comment on above: Order Comment: DIDNT WANT TO DO OTHER INTERNALS LABS DUE IN JANUARY Performed By: #### L 500.2500 ####[facility] [address] [place], [address] GFR/1.73 sq M.predicted among non-blacks MDRD (S/P/Bld) [Vol rate/Area] 99 mL/min/{1.73_m2} Normal >60 [facility] Comment on above: Order Comment: DIDNT WANT TO DO OTHER INTERNALS LABS DUE IN JANUARY Result Comment: Non- GFR Calc Performed By: #### L 500.2500 ####[facility] [address] [place], [address] Glucose [Mass/Vol] 108 mg/dL High 74-106 [facility] Comment on above: Order Comment: DIDNT WANT TO DO OTHER INTERNALS LABS DUE IN JANUARY Result Comment: Fast ing Glucose result from 100 to 125 mg/dL suggests IMPAIRED HOMEOSTASIS per A.D.A. criteria. Performed By: #### L 500.2500 ####[facility] [address] [place], [address] Potassium [Moles/Vol] 3.8 mmol/L Normal 3.5-5.1 [facility] Comment on above: Order Comment: DIDNT WANT TO DO OTHER INTERNALS LABS DUE IN JANUARY Performed By: #### L 500.2500 ####[facility] [address] [place], [address] Sodium [Moles/Vol] 142 mmol/L Normal 136-145 [facility] Comment on above: Order Comment: DIDNT WANT TO DO OTHER INTERNALS LABS DUE IN JANUARY Performed By: #### L 500.2500 ####[facility] [address] [place], [address] Urea nitrogen [Mass/Vol] 15 mg/dL Normal 7-18 [facility] Comment on above: Order Comment: DIDNT WANT TO DO OTHER INTERNALS LABS DUE IN JANUARY Performed By: #### L 500.2500 ####[facility] [address] [place], [address] BNP,B-Type NATRIURETIC PEPTI Jun 08-10-2023 Natriuretic peptide B (Bld) [Mass/Vol] 143.0 pg/mL High 0-100 [facility] Comment on above: Performed By: #### L 500.2500, L503.6620 #### [facility] [address] [place], [address] Basic Metabolic Profile (BMP )on 08-10-2023 BUN/CRE 23.6 RATIO High 10-20 [facility] Comment on above: Performed By: #### L 500.2500, L503.6620 #### [facility] [address] [place], [address] CA,Total 9.9 mg/dL Normal 8.5-10.1 [facility] Comment on above: Performed By: #### L 500.2500, L503.6620 #### [facility] [address] [place], [address] Chloride [Moles/Vol] 109 mmol/L High 98-107 [facility] Comment on above: Performed By: #### L 500.2500, L503.6620 #### [facility] [address] [place], [address] CO2 [Moles/Vol] 29.0 mmol/L Normal 21.0-32.0 [facility] Comment on above: Performed By: #### L 500.2500, L503.6620 #### [facility] [address] [place], [address] Creatinine [Mass/Vol] 0.55 mg/dL Normal 0.55-1.02 [facility] Comment on above: Result Comment: The validity of the calculated GFR GFRAA in patients over 70 years has not been determined. Clinical correlation is essential. Performed By: #### L 500.2500, L503.6620 #### [facility] [address] [place], [address] EST GFR - AA 137 mL/min Normal >60 [facility] Comment on above: Result Comment: Afri can Prydeinig GFR Calc Performed By: #### L 500.2500, L503.6620 #### [facility] [address] [place], [address] GAP 2 Low 5-15 [facility] Comment on above: Performed By: #### L 500.2500, L503.6620 #### [facility] [address] [place], [address] GFR/1.73 sq M.predicted among non-blacks MDRD (S/P/Bld) [Vol rate/Area] 113 mL/min/{1.73_m2} Normal >60 [facility] Comment on above: Result Comment: Non- GFR Calc Performed By: #### L 500.2500, L503.6620 #### [facility] [address] [place], [address] Glucose [Mass/Vol] 127 mg/dL High 74-106 [facility] Comment on above: Result Comment: Fast ing Glucose result greater than or equal to 126 mg/dL suggests DIABETES MELLITUS per A.D.A. criteria. Performed By: #### L 500.2500, L503.6620 #### [facility] [address] [place], [address] Potassium [Moles/Vol] 4.1 mmol/L Normal 3.5-5.1 [facility] Comment on above: Result Comment: Mode rate Hemolysis, Result may be falsely increased. Performed By: #### L 500.2500, L503.6620 #### [facility] [address] [place], [address] Sodium [Moles/Vol] 140 mmol/L Normal 136-145 [facility] Comment on above: Performed By: #### L 500.2500, L503.6620 #### [facility] [address] [place], [address] Urea nitrogen [Mass/Vol] 13 mg/dL Normal 7-18 [facility] Comment on above: Performed By: #### L 500.2500, L503.6620 #### [facility] [address] [place], [address] Cardiology Visit Reporton Cardiology Visit Report [facility] [address] [place] [address] OFFICE VISIT Date of Service: 08/10/23 MR#: [id number] Acct: [id number] Name: AYAN CARRILLO Rep #: [id number] : 1945 Provider: MONICA bowden Age/Sex: 78/F Location: [facility] Status: Signed [facility] History of Present Illness Details: AYAN CARRILLO, is a 78 F who presents to the office today for a cardiovascular follow-up visit. She is a lady with a history of coronary artery disease, status post cardiac catheterization previous angioplasty to the circumflex artery, a history of hypertension and hyperlipidemia. Her last stress test was in April of 2021, was negative for ischemia and her last echocardiogram in 10/2021 demonstrated preserved ejection fraction of 60%, with stage I diastolic dysfunction. From a cardiac standpoint, the patient is doing well. She presents to the office in a wheel chair, she does use a cane to help with ambulation. She denies any palpitations, chest pain, pressure or heaviness. She does acknowledge SOB with exertion-She states this may be slightly worse. She denies Orthopnea, and PND. She does not have bleeding issues; no blood in urine, stool or nosebleeds. She denies any decrease in energy level, myalgias, or claudication. She does not have edema, or sudden weight gain. She denies dizziness, lightheadedness, syncopal or near syncopal episodes, and headaches. Intake Vital Signs 02/02/23 10:11 07/15/23 21:24 08/10/23 09:47 08/10/23 09:49 Height 4 ft 11 in 4 ft 11 in 4 ft 11 in 4 ft 11 in Weight: 212 lb BMI 42.8 BP 135/83 H Blood Pressure Location Lt brachial Position Sitting Respiration 18 Pulse 69 Pulse Source Monitor Pulse Oximetry (%) 94 Intake Visit Reasons: 6 M FU Hog Grader Required: No Is patient in pain?: No Allergies hydrochlorothiazide Adverse Reaction (Intermediate, Verified 08/10/23 09:57) Constipation Medications ???Medication ???Instructions ???Recorded ???Confirmed ???Type aspirin 81 mg chewable tablet 81 mg PO QHS 10/25/15 08/10/23 History potassium gluconate 595 mg (99 mg) 595 mg PO DAILY PRN for low levels 09/09/18 08/10/23 History tablet omeprazole 20 mg capsule,delayed 20 mg PO DAILY #90 caps 08/20/22 08/10/23 Rx release lisinopril 20 mg tablet 20 mg PO BID #180 tabs 02/02/23 08/10/23 Rx atorvastatin 40 mg tablet 40 mg PO QHS #90 tabs 08/10/23 08/10/23 Rx carvedilol 25 mg tablet 25 mg PO BID Dose has been 08/10/23 08/10/23 Rx increased #180 tabs furosemide 20 mg tablet (Lasix) 20 mg PO DAILY #90 tabs 08/10/23 08/10/23 Rx nitroglycerin 0.4 mg sublingual 0.4 mg sublingual Q5M PRN Chest 08/10/23 08/10/23 Rx tablet Pain #25 tabs PFSH Medical History (Reviewed 08/10/23 @ 09:57 by Ginger Grace FRETTED STRING INSTRUMENT REPAIRER, FRETTED STRING INSTRUMENT REPAIRER-C) Obesity Essential (primary) hypertension Atherosclerotic heart disease of [place] coronary artery without angina pectoris Hyperlipidemia GERD (gastroesophageal reflux disease) Osteoarthritis Morbid obesity with BMI of 40.0-44.9, adult Surgical History (Reviewed 08/10/23 @ 09:57 by Ginger Grace FRETTED STRING INSTRUMENT REPAIRER, FRETTED STRING INSTRUMENT REPAIRER-C) History of cholecystectomy History of left heart catheterization (06/04/08) History of coronary angioplasty (09/20/07) History of laparoscopic cholecystectomy History of total hysterectomy Family History (Reviewed 08/10/23 @ 09:57 by Ginger Grace FRETTED STRING INSTRUMENT REPAIRER, FRETTED STRING INSTRUMENT REPAIRER-C) Father CAD (coronary artery disease) Mother CHF (congestive heart failure) Sister Hypertension Social History Smoking Status: Never smoker alcohol intake: never substance use type: does not use ROS Const Const: Negative for fatigue, weakness, fever(s), headache(s), chills, frequent falls, weight gain or weight loss Eyes Eyes: Negative for blind spots, loss of peripheral vision, transient loss of vision, blurry vision, change in vision, double vision, floaters or tunnel vision ENT ENT: Negative for headache(s), dizziness, Nosebleed/epistaxis, balance problems or neck pain Cardio Chest Pain: No Palpitations: No Edema: None Muscle aches with walking: None Resp Respiratory: Positive for SOB with activity; Negative for SOB at rest or SOB orthopnea SOB lying down GI GI: Negative nausea, vomiting, heartburn, bloating, vomiting blood/hematemesis, bright, red blood in stools or black,tarry stools Musc Musc: Negative for muscle aches/ myalgia, muscle weakness, joint pain or balance problems Neuro Neuro: Negative for dizziness, lightheadedness, near syncope, syncope, orthostatic symptoms, frequent falls, headache(s), weakness, blurry vision or double vision Lamine Hematologic/Lymphati c: Negative for easy bleeding or easy bruising Endo Endo: Negative for fatigue Cardiology Exam Const (more content not included)... Normal [facility] Lipid Profileon 08-03-2023 Cholesterol [Mass/Vol] 112 mg/dL Normal 200 [facility] Comment on above: Result Comment: <200 mg/dL Desirable 200-240 mg/dL Borderline >240 mg/dL High Risk Performed By: #### L 500.3400, L500.4100 #### [facility] [address] [place], [address] Cholesterol in HDL [Mass/Vol] 42 mg/dL Normal [facility] Comment on above: Result Comment: The drugs N-Acetylcysteine and Metamizole may falsely depress this assay. Reference Range HDL <40 mg/dL Low HDL Cholesterol HDL >or= 60 mg/dL High HDL Cholesterol Performed By: #### L 500.3400, L500.4100 #### [facility] [address] [place], [address] Cholesterol in LDL [Mass/Vol] 46 mg/dL Normal 0-130 [facility] Comment on above: Performed By: #### L 500.3400, L500.4100 #### [facility] [address] [place], [address] Cholesterol in VLDL [Mass/Vol] 24 mg/dL Normal 5-40 [facility] Comment on above: Performed By: #### L 500.3400, L500.4100 #### [facility] [address] [place], [address] Triglyceride [Mass/Vol] 118 mg/dL Normal [facility] Comment on above: Result Comment: The drugs N-Acetylcysteine and Metamizole may falsely depress this assay. Serum Triglycerides Reference Interval Normal <150 mg/dL Borderline high 150 - 199 mg/dL High 200 - 499 mg/dL Very High > or = 500 mg/dL Performed By: #### L 500.3400, L500.4100 #### [facility] [address] [place], [address] Liver Profileon 08-03-2023 Albumin [Mass/Vol] 2.9 g/dL Low 3.2-5.0 [facility] Comment on above: Performed By: #### L 500.3400, L500.4100 #### [facility] [address] [place], [address] ALK P 114 U/L Normal 45-117 [facility] Comment on above: Performed By: #### L 500.3400, L500.4100 #### [facility] [address] [place], [address] ALT [Catalytic activity/Vol] 16 U/L Normal 13-56 [facility] Comment on above: Performed By: #### L 500.3400, L500.4100 #### [facility] [address] [place], [address] AST [Catalytic activity/Vol] 20 U/L Normal 15-37 [facility] Comment on above: Result Comment: Slig ht Hemolysis, Result may be falsely increased. Performed By: #### L 500.3400, L500.4100 #### [facility] [address] [place], [address] Bilirubin [Mass/Vol] 0.90 mg/dL Normal 0.20-1.00 [facility] Comment on above: Result Comment: For patients on eltrombopag therapy, use of Dimension [place] TBIL is not recommended. Performed By: #### L 500.3400, L500.4100 #### [facility] [address] [place], [address] Bilirubin.direct [Mass/Vol] 0.20 mg/dL Normal 0.00-0.30 [facility] Comment on above: Performed By: #### L 500.3400, L500.4100 #### [facility] [address] [place], [address] Globulin (S) [Mass/Vol] 3.5 g/dL Normal 2.2-4.2 [facility] Comment on above: Performed By: #### L 500.3400, L500.4100 #### [facility] [address] [place], [address] T PROT 6.4 g/dL Normal 6.4-8.2 [facility] Comment on above: Performed By: #### L 500.3400, L500.4100 #### [facility] [address] [place], [address] L501.4020on 07-16-2023 TROPONIN-I HS 9 pg/mL Normal 3.0-54.0 [facility] Comment on above: Result Comment: Plea se Note: New Test Units and Gender Specific Reference Ranges. For more information see Policy Stat Procedure [place] High Sensitivity Troponin (TNIH) and attachments. Performed By: #### L 501.4020 ####[facility] [address] [place], [address] 12 Lead EKGon 07-15-2023 12 Lead EKG [facility] Cardiovascular Services [address] [place] [address] 12 Lead EKG 07/15/23 2133 MR#: [id number] Acct: [id number] Name: AYAN CARRILLO Rep #: [id number] : 1945 78 From: Eduardo Butler MD Attending Dr: Status: DEP ER Ordering Dr: Gayle Us MD Date: 07/15/23 Location: ED Sex: F C Admitted: Test Reason : CP Blood Pressure : / mmHG Vent. Rate : 061 BPM Atrial Rate : 061 BPM P-R Int : 158 ms QRS Dur : 086 ms QT Int : 388 ms P-R-T Axes : 049 -26 001 degrees QTc Int : 390 ms Normal sinus rhythm Minimal voltage criteria for LVH, may be normal variant ( R in aVL ) Septal infarct , age undetermined Abnormal ECG Confirmed by Eduardo Butler ([id number]), newspaper editor managing [employer] ([id number]) on 07/20/2023 9:59:46 AM Referred By: Confirmed By:Eduardo Butler 07/20/23 0959 Date Eduardo Butler MD CC: Dr. Lilly Fletcher MD; Dr. Gayle Us MD Signed Normal [facility] BNP,B-Type NATRIURETIC PEPTI Jun 07-15-2023 Natriuretic peptide B (Bld) [Mass/Vol] 141.6 pg/mL High 0-100 [facility] Comment on above: Performed By: #### L 503.6620 ####[facility] [address] [place], [address] Basic Metabolic Profile (BMP )on 07-15-2023 BUN/CRE 24.5 RATIO High 10-20 [facility] Comment on above: Order Comment: 1 Y Performed By: #### L 500.2500, L100.0100, L501.5425 #### [facility] [address] [place], [address] CA,Total 9.6 mg/dL Normal 8.5-10.1 [facility] Comment on above: Order Comment: 1 Y Performed By: #### L 500.2500, L100.0100, L501.5425 #### [facility] [address] [place], [address] Chloride [Moles/Vol] 110 mmol/L High 98-107 [facility] Comment on above: Order Comment: 1 Y Performed By: #### L 500.2500, L100.0100, L501.5425 #### [facility] [address] [place], [address] CO2 [Moles/Vol] 27.0 mmol/L Normal 21.0-32.0 [facility] Comment on above: Order Comment: 1 Y Performed By: #### L 500.2500, L100.0100, L501.5425 #### [facility] [address] [place], [address] Creatinine [Mass/Vol] 0.53 mg/dL Low 0.55-1.02 [facility] Comment on above: Order Comment: 1 Y Result Comment: The validity of the calculated GFR GFRAA in patients over 70 years has not been determined. Clinical correlation is essential. Performed By: #### L 500.2500, L100.0100, L501.5425 #### [facility] [address] [place], [address] EST GFR - AA 143 mL/min Normal >60 [facility] Comment on above: Order Comment: 1 Y Result Comment: Afri can Prydeinig GFR Calc Performed By: #### L 500.2500, L100.0100, L501.5425 #### [facility] [address] [place], [address] GAP 2 Low 5-15 [facility] Comment on above: Order Comment: 1 Y Performed By: #### L 500.2500, L100.0100, L501.5425 #### [facility] [address] [place], [address] GFR/1.73 sq M.predicted among non-blacks MDRD (S/P/Bld) [Vol rate/Area] 118 mL/min/{1.73_m2} Normal >60 [facility] Comment on above: Order Comment: 1 Y Result Comment: Non- GFR Calc Performed By: #### L 500.2500, L100.0100, L501.5425 #### [facility] [address] [place], [address] Glucose [Mass/Vol] 120 mg/dL High 74-106 [facility] Comment on above: Order Comment: 1 Y Result Comment: Fast ing Glucose result from 100 to 125 mg/dL suggests IMPAIRED HOMEOSTASIS per A.D.A. criteria. Performed By: #### L 500.2500, L100.0100, L501.5425 #### [facility] [address] [place], [address] Potassium [Moles/Vol] 4.1 mmol/L Normal 3.5-5.1 [facility] Comment on above: Order Comment: 1 Y Performed By: #### L 500.2500, L100.0100, L501.5425 #### [facility] [address] [place], [address] Sodium [Moles/Vol] 139 mmol/L Normal 136-145 [facility] Comment on above: Order Comment: 1 Y Performed By: #### L 500.2500, L100.0100, L501.5425 #### [facility] [address] [place], [address] Urea nitrogen [Mass/Vol] 13 mg/dL Normal 7-18 [facility] Comment on above: Order Comment: 1 Y Performed By: #### L 500.2500, L100.0100, L501.5425 #### [facility] [address] [place], [address] CBC W/Diff, Automatedon 05-03 06-2023 Absolute Lymph 1.03 X10 3/uL Normal 0.83-4.51 [facility] Comment on above: Performed By: #### L 500.2500, L100.0100, L501.5425 #### [facility] [address] [place], [address] Absolute Neut 3.6 X10 3/uL Normal 2.0-7.7 [facility] Comment on above: Performed By: #### L 500.2500, L100.0100, L501.5425 #### [facility] [address] [place], [address] Basophils/100 WBC (Bld) 0.4 % Normal 0-1 [facility] Comment on above: Performed By: #### L 500.2500, L100.0100, L501.5425 #### [facility] [address] [place], [address] Eosinophils/100 WBC (Bld) 2.2 % Normal 0-5 [facility] Comment on above: Performed By: #### L 500.2500, L100.0100, L501.5425 #### [facility] [address] [place], [address] Erythrocyte distribution width (RBC) [Ratio] 12.7 % Normal 11.6-14.6 [facility] Comment on above: Performed By: #### L 500.2500, L100.0100, L501.5425 #### [facility] [address] [place], [address] Hematocrit (Bld) [Volume fraction] 41.7 % Normal 37-47 [facility] Comment on above: Performed By: #### L 500.2500, L100.0100, L501.5425 #### [facility] [address] [place], [address] Hemoglobin (Bld) [Mass/Vol] 13.2 g/dL Normal 12.0-15.0 [facility] Comment on above: Performed By: #### L 500.2500, L100.0100, L501.5425 #### [facility] [address] [place], [address] IG% 0.400 Normal 0.0-0.9 [facility] Comment on above: Result Comment: IG% - Immature Granulocytes (promyelocytes, myelocytes and metamyelocytes) > 1% indicates that a LEFT SHIFT is Present. Performed By: #### L 500.2500, L100.0100, L501.5425 #### [facility] [address] [place], [address] Lymphocytes/100 WBC (Bld) 19.2 % Normal 19-41 [facility] Comment on above: Performed By: #### L 500.2500, L100.0100, L501.5425 #### [facility] [address] [place], [address] MCH (RBC) [Entitic mass] 29.1 pg Normal 27.0-32.0 [facility] Comment on above: Performed By: #### L 500.2500, L100.0100, L501.5425 #### [facility] [address] [place], [address] MCHC (RBC) [Mass/Vol] 31.7 g/dL Low 32-36 [facility] Comment on above: Performed By: #### L 500.2500, L100.0100, L501.5425 #### [facility] [address] [place], [address] MCV (RBC) [Entitic vol] 92.1 fL Normal 81-99 [facility] Comment on above: Performed By: #### L 500.2500, L100.0100, L501.5425 #### [facility] [address] [place], [address] Monocytes/100 WBC (Bld) 10.6 % High 0-10 [facility] Comment on above: Performed By: #### L 500.2500, L100.0100, L501.5425 #### [facility] [address] [place], [address] Neutrophils/100 WBC (Bld) 67.2 % Normal 47-70 [facility] Comment on above: Performed By: #### L 500.2500, L100.0100, L501.5425 #### [facility] [address] [place], [address] Nucleated RBC (Bld) [#/Vol] 0 10*3/uL Normal 0-5 [facility] Comment on above: Performed By: #### L 500.2500, L100.0100, L501.5425 #### [facility] [address] [place], [address] Platelet mean volume (Bld) [Entitic vol] 9.7 fL Normal 6.2-12.0 [facility] Comment on above: Performed By: #### L 500.2500, L100.0100, L501.5425 #### [facility] [address] [place], [address] Platelets (Bld) [#/Vol] 208 10*3/uL Normal 150-450 [facility] Comment on above: Performed By: #### L 500.2500, L100.0100, L501.5425 #### [facility] [address] [place], [address] RBC (Bld) [#/Vol] 4.53 10*6/uL Normal 4.2-5.4 [facility] Comment on above: Performed By: #### L 500.2500, L100.0100, L501.5425 #### [facility] [address] [place], [address] RDW SD 42.5 fl Normal 35.1-43.9 [facility] Comment on above: Performed By: #### L 500.2500, L100.0100, L501.5425 #### [facility] [address] [place], [address] WBC (Bld) [#/Vol] 5.4 10*3/uL Normal 4.4-11.0 [facility] Comment on above: Performed By: #### L 500.2500, L100.0100, L501.5425 #### [facility] [address] [place], [address] Chest 1 View (Portable)on Chest 1 View (Portable) [facility] Imaging Services [address] [place] [address] Chest 1 View (Portable) MR#: [id number] Acct: [id number] Name: AYAN CARRILLO Rep #: [id number] : 1945 F 78 From: Yovanny Joaquin MD PCP: Dr. Lilly Fletcher MD Status: REG ER Study: Chest 1 View (Portable) Date of Exam: 07/15/23 Exam# [id number] Ordering Dr: Gayle Us MD [id number] INDICATION: chest pain EXAMINATION/TECHNIQU E: X-RAY - XR Chest 1 View COMPARISON: None. Findings: Single frontal view of the chest. Low lung volumes. LUNG PARENCHYMA: No acute focal airspace disease or mass lesion. PLEURA: No pleural effusion. No pneumothorax. HEART/GREAT VESSELS: Cardiomediastinal silhouette is unremarkable. BONES: Osseous structures are unremarkable for age. RAD/Chest 1 View (Portable) IMPRESSION: Given low lung volumes, chest with no acute disease. Electronically Signed: Yovanny Joaquin MD at 22:40 EDT , CC: Dr. Lilly Fletcher MD; Dr. Gayle Us MD Managing Partner: Signed Normal [facility] Emergency Department Summary on 07-15-[address] [facility] Records Department [address] [place] [id number] Emergency Department Summary 07/15/23 MR#: [id number] Acct: [id number] Name: AYAN CARRILLO Rep #: [id number] : 1945 78 From: Gayle Us MD PCP: Dr. Lilly Fletcher MD Status:[facility] ER Location: ED HPI History of Present Illness Chief Complaint: Chest Pain Informant: patient Onset/Context/Timing Onset: Today Narrative Narrative: Patient presents with complaints of some intermittent chest pressure, dizziness, generalized weakness. She states she felt fatigued all day and lay down tonight to take a nap. When she got up this evening she had some slight chest pressure with dizziness and folic her arms were heavy. She thought she should just be checked out. She does report slight stuffiness that she thought might be related to allergies. She does report some mild shortness of breath with exertion but that does not appear to be new. She does have mild lower extremity edema. [facility] Medical History Obesity Essential (primary) hypertension Atherosclerotic heart disease of [place] coronary artery without angina pectoris Hyperlipidemia GERD (gastroesophageal reflux disease) Osteoarthritis Morbid obesity with BMI of 40.0-44.9, adult Home Medications ???Medication ???Instructions ???Recorded ???Last Taken ???Type aspirin 81 mg chewable tablet 81 mg PO QHS 10/25/15 10/24/15 History potassium gluconate 595 mg (99 mg) 595 mg PO DAILY PRN for low levels 09/09/18 Unknown History tablet nitroglycerin 0.4 mg sublingual 0.4 mg sublingual Q5M PRN Chest 04/18/21 Unknown Rx tablet Pain #25 tabs omeprazole 20 mg capsule,delayed 20 mg PO DAILY #90 caps 08/20/22 Unknown Rx release atorvastatin 40 mg tablet 40 mg PO QHS #90 tabs 11/10/22 Unknown Rx carvedilol 25 mg tablet 25 mg PO BID Dose has been 11/24/22 Unknown Rx increased #180 tabs furosemide 20 mg tablet (Lasix) 20 mg PO DAILY #90 tabs 01/15/23 Unknown Rx lisinopril 20 mg tablet 20 mg PO BID #180 tabs 02/02/23 Unknown Rx Allergy/AdvReac Type Severity Reaction Status Date / Time hydrochlorothiazide AdvReac Intermediate Constipatio Verified 03/25/23 16:33 n Family History Father CAD (coronary artery disease) Mother CHF (congestive heart failure) Sister Hypertension Surgical History History of cholecystectomy History of left heart catheterization (06/04/08) History of coronary angioplasty (09/20/07) History of laparoscopic cholecystectomy History of total hysterectomy Social History Smoking Status: Never smoker alcohol intake: never substance use type: does not use ROS ROS ED Constitutional Constitutional ED: Denies chills or fever(s) Eyes Eyes: Denies discharge from eye(s) ENT ENT ED: Denies discharge from eye(s), rhinorrhea or sore throat Cardiovascular Cardiovascular: Reports chest pain; Denies palpitations Respiratory/Chest Respiratory/Chest: Reports dyspnea; Denies cough Gastrointestinal Gastrointestinal: Denies abdominal pain, nausea or vomiting Genitourinary Genitourinary ED: Denies dysuria Musculoskeletal Musculoskeletal: Denies back pain or extremity pain Integumentary Denies Abrasions or rash Neurologic Neurologic: Reports headache(s) and weakness Psychiatric Psychiatric: Denies anxiety or depression Allergic/Immunologic Allergic/Immunologic ED: Denies lip swelling or urticaria EXAM Physical Exam Const Vital Signs: 07/15/23 21:24 07/15/23 21:25 07/15/23 22:23 Temperature 98.2 F Temperature Source Temporal Pulse Rate 94 80 Respiratory Rate 17 16 Blood Pressure 147/86 H 129/74 H Blood Pressure Mean 106 92 Pulse Ox 95 98 Oxygen Delivery Method Room Air Room Air Room Air 07/15/23 23:00 07/16/23 00:00 Temperature Temperature Source Pulse Rate 57 L 59 L Respiratory Rate 17 19 H Blood Pressure 149/74 H 124/70 H Blood Pressure Mean 99 88 Pulse Ox 94 95 Oxygen Delivery Method Room Air Room Air Positive well nourished and well developed General Appearance ED: well developed HEENT Reports moist mucous membranes Eyes EOMs intact bilaterally Chest Wall inspection of chest normal and palpation of chest normal Resp normal respiratory effort and clear to auscultation bilaterally Cardio regular rate and regular rhythm GI normal to inspection, nondistended, normoactive bowel sounds and soft to palpation Extremity Extremity Narrative: 3+ bilateral lower extremity edema, symmetric. Neuro oriented x3 and no sensory deficits noted Skin (more content not included)... Normal [facility] L501.5425on 07-15-2023 TROPONIN-I HS 10 pg/mL Normal 3.0-54.0 [facility] Comment on above: Order Comment: 1Y Result Comment: Moisés lee Note: New Test Units and Gender Specific Reference Ranges. For more information see Policy Stat Procedure [place] High Sensitivity Troponin (TNIH) and attachments. Performed By: #### L 500.2500, L100.0100, L501.5425 ####[facility] [address] [place], [address] Culture, urineOrdered By: Russell Markham on 03-25-2023 Bacteria identified Cx Nom (U) Mixed Gram Pos & Gram Neg Org [facility] Basophil percentageOrdered B y: Ginger Grace on 02-02-2023 Bilirubin [Mass/Vol] 0.70 mg/dL 0.20-1.00 [facility] Comment on above: For patients on eltr ombopag therapy, use of Dimension [place] TBIL is not recommended. Cholesterol [Mass/Vol] 96 mg/dL <200 [facility] Comment on above: <200 mg/dL Desirable 200-240 mg/dL Borderline >240 mg/dL High Risk Protein [Mass/Vol] 6.1 g/dL 6.4-8.2 [facility] Triglyceride [Mass/Vol] 127 mg/dL <199 [facility] Comment on above: The drugs N-Acetylcy steine and Metamizole may falsely depress this assay.Serum Triglycerides Reference Interval Normal <150 mg/dL Borderline high 150 - 199 mg/dL High 200 - 499 mg/dL Very High > or = 500 mg/dL Direct bilirubinOrdered By: Ginger Grace on 02-02-2023 Bilirubin.direct [Mass/Vol] 0.19 mg/dL 0.00-0.30 [facility] - Chemistry and C hemistry - challengeOrdered By: Ginger Grace on 02-02-2023 ALP [Catalytic activity/Vol] 105 U/L 45-117 [facility] ALT [Catalytic activity/Vol] 18 U/L 13-56 [facility] Globulin (S) [Mass/Vol] 3.4 g/dL 2.2-4.2 [facility] Serum or plasma albumin aaron urement (mass/volume)Ordered By: Ginger Grace on 02-02-2023 Albumin [Mass/Vol] 2.7 g/dL 3.2-5.0 [facility] Serum or plasma cholesterol in HDL measurement (mass/volume)Ordered By: Ginger Grace on 02-02-2023 Cholesterol in HDL [Mass/Vol] 39 mg/dL >40 [facility] Comment on above: The drugs N-Acetylcy steine and Metamizole may falsely depress this assay. Reference Range HDL <40 mg/dL Low HDL Cholesterol HDL >or= 60 mg/dL High HDL Cholesterol Serum or plasma cholesterol in VLDL measurement (mass/volume)Ordered By: Ginger Grace on 02-02-2023 Cholesterol in VLDL [Mass/Vol] 25 mg/dL 5-40 [facility] Serum or plasma low density lipoprotein (LDL) cholesterol measurement (mass/volume)Ordered By: Ginger Grace on 02-02-2023 Cholesterol in LDL [Mass/Vol] 32 mg/dL 0-130 [facility] Thin prep Papanicolaou smear with manual screeningOrdered By: Ginger Grace on 02-02-2023 Thin prep Papanicolaou smear with manual screening 14 U/L 15-37 [facility] Basophil percentageon 2021 Chloride [Moles/Vol] 106 mmol/L 98-107 [facility] Work Phone: Glucose [Mass/Vol] 102 mg/dL 74-106 [facility] Work Phone: Comment on above: Fasting Glucose resu lt from 100 to 125 mg/dL suggests IMPAIRED HOMEOSTASIS per A.D.A. criteria. Potassium [Moles/Vol] 4.0 mmol/L 3.5-5.1 [facility] Work Phone: Sodium [Moles/Vol] 141 mmol/L 136-145 [facility] Work Phone: Laboratory - Chemistry and C hemistry - challengeon 01-07-2022 CO2 [Moles/Vol] 28.0 mmol/L 21.0-32.0 [facility] Work Phone: Urea nitrogen/Creatinine [Mass ratio] 27.5 mg/mg 10-20 [facility] Work Phone: No Panel Informationon 01-07 Estimated GFR (MDRD) Amer 129 mL/min >60 [facility] Work Phone: Comment on above: GFR Calc Estimated GFR (MDRD) Non-Af Amer 107 mL/min >60 [facility] Work Phone: Comment on above: Non- GFR Calc Serum or plasma calcium aaron urement (mass/volume)on 01-07-2022 Calcium [Mass/Vol] 9.4 mg/dL 8.5-10.1 [facility] Work Phone: Serum or plasma creatinine m easurement (mass/volume)on 01-07-2022 Creatinine [Mass/Vol] 0.58 mg/dL 0.55-1.02 [facility] Work Phone: Comment on above: The validity of the calculated GFR & GFRAA in patients over 70 years has not been determined. Clinical correlation is essential. Serum or plasma urea nitroge n measurement (mass/volume)on 01-07-2022 Urea nitrogen [Mass/Vol] 16 mg/dL 7-18 [facility] Work Phone: Thin prep Papanicolaou smear with manual screeningon 01-07-2022 Thin prep Papanicolaou smear with manual screening 7 5-15 [facility] Work Phone: Basophil percentageon 2021 Bilirubin [Mass/Vol] 0.90 mg/dL 0.20-1.00 [facility] Work Phone: Comment on above: For patients on eltr ombopag therapy, use of Dimension [place] TBIL is not recommended. Chloride [Moles/Vol] 107 mmol/L 98-107 [facility] Work Phone: Cholesterol [Mass/Vol] 113 mg/dL <200 [facility] Work Phone: Comment on above: <200 mg/dL Desirable 200-240 mg/dL Borderline >240 mg/dL High Risk Glucose [Mass/Vol] 109 mg/dL 74-106 [facility] Work Phone: Comment on above: Fasting Glucose resu lt from 100 to 125 mg/dL suggests IMPAIRED HOMEOSTASIS per A.D.A. criteria. Potassium [Moles/Vol] 4.0 mmol/L 3.5-5.1 [facility] Work Phone: Protein [Mass/Vol] 6.6 g/dL 6.4-8.2 [facility] Work Phone: [phone] Sodium [Moles/Vol] 139 mmol/L 136-145 [facility] Work Phone: [phone] Triglyceride [Mass/Vol] 116 mg/dL <199 [facility] Work Phone: [phone] Comment on above: The drugs N-Acetylcy steine and Metamizole may falsely depress this assay.Serum Triglycerides Reference Interval Normal <150 mg/dL Borderline high 150 - 199 mg/dL High 200 - 499 mg/dL Very High > or = 500 mg/dL Direct bilirubinon Bilirubin.direct [Mass/Vol] 0.27 mg/dL 0.00-0.30 [facility] Work Phone: [phone] Laboratory - Chemistry and C hemistry - challengeon 12-25-2021 ALP [Catalytic activity/Vol] 132 U/L 45-117 [facility] Work Phone: [phone] ALT [Catalytic activity/Vol] 15 U/L 13-56 [facility] Work Phone: [phone] CO2 [Moles/Vol] 30.0 mmol/L 21.0-32.0 [facility] Work Phone: [phone] Globulin (S) [Mass/Vol] 3.6 g/dL 2.2-4.2 [facility] Work Phone: [phone] Natriuretic peptide B (Bld) [Mass/Vol] 243.4 pg/mL 0-100 [facility] Work Phone: [phone] Urea nitrogen/Creatinine [Mass ratio] 22.1 mg/mg 10-20 [facility] Work Phone: [phone] No Panel Informationon 12-25 Estimated GFR (MDRD) Amer 139 mL/min >60 [facility] Work Phone: [phone] Comment on above: GFR Calc Estimated GFR (MDRD) Non-Af Amer 115 mL/min >60 [facility] Work Phone: [phone] Comment on above: Non- GFR Calc Serum or plasma albumin aaron urement (mass/volume)on 12-25-2021 Albumin [Mass/Vol] 3.0 g/dL 3.2-5.0 [facility] Work Phone: Serum or plasma calcium aaron urement (mass/volume)on 12-25-2021 Calcium [Mass/Vol] 10.0 mg/dL 8.5-10.1 [facility] Work Phone: Serum or plasma cholesterol in HDL measurement (mass/volume)on 12-25-2021 Cholesterol in HDL [Mass/Vol] 46 mg/dL >40 [facility] Work Phone: Comment on above: The drugs N-Acetylcy steine and Metamizole may falsely depress this assay. Reference Range HDL <40 mg/dL Low HDL Cholesterol HDL >or= 60 mg/dL High HDL Cholesterol Serum or plasma cholesterol in VLDL measurement (mass/volume)on 12-25-2021 Cholesterol in VLDL [Mass/Vol] 23 mg/dL 5-40 [facility] Work Phone: [phone] Serum or plasma creatinine m easurement (mass/volume)on 12-25-2021 Creatinine [Mass/Vol] 0.54 mg/dL 0.55-1.02 [facility] Work Phone: Comment on above: The validity of the calculated GFR & GFRAA in patients over 70 years has not been determined. Clinical correlation is essential. Serum or plasma low density lipoprotein (LDL) cholesterol measurement (mass/volume)on 12-25-2021 Cholesterol in LDL [Mass/Vol] 44 mg/dL 0-130 [facility] Work Phone: [phone] Serum or plasma urea nitroge n measurement (mass/volume)on 12-25-2021 Urea nitrogen [Mass/Vol] 12 mg/dL 7-18 [facility] Work Phone: [phone] Thin prep Papanicolaou smear with manual screeningon 12-25-2021 Thin prep Papanicolaou smear with manual screening 12 U/L 15-37 [facility] Work Phone: [phone] Thin prep Papanicolaou smear with manual screening 2 5-15 [facility] Work Phone: [phone] Absolute lymphocyte counton 10-12-2021 Lymphocytes Auto (Unsp spec) [#/Vol] 0.84 10*3/uL 0.83-4.51 [facility] Work Phone: Basophil percentageon 2021 Basophils/100 WBC (Bld) 0.1 % 0-1 [facility] Work Phone: Chloride [Moles/Vol] 107 mmol/L 98-107 [facility]: Eosinophils/100 WBC (Bld) 1.2 % 0-5 [facility] Work Phone: Glucose [Mass/Vol] 110 mg/dL 74-106 [facility] Work Phone: Comment on above: Fasting Glucose resu lt from 100 to 125 mg/dL suggests IMPAIRED HOMEOSTASIS per A.D.A. criteria. Neutrophils (Bld) [#/Vol] 5.2 10*3/uL 2.0-7.7 [facility] Work Phone: Neutrophils/100 WBC (Bld) 77.9 % 47-70 [facility] Work Phone: Potassium [Moles/Vol] 4.5 mmol/L 3.5-5.1 [facility] Work Phone: Comment on above: Slight Hemolysis, Re sult may be falsely increased. Sodium [Moles/Vol] 140 mmol/L 136-145 [facility] Work Phone: WBC (Bld) [#/Vol] 6.7 10*3/uL 4.4-11.0 [facility] Work Phone: Blood erythrocytes count (nu mber/volume)on 10-12-2021 RBC (Bld) [#/Vol] 4.54 10*6/uL 4.2-5.4 [facility] Work Phone: Blood hemoglobin measurement (mass/volume)on 10-12-2021 Hemoglobin (Bld) [Mass/Vol] 13.5 g/dL 12.0-15.0 [facility] Work Phone: Blood lymphocytes/100 leukoc yteson 10-12-2021 Lymphocytes/100 WBC (Bld) 12.5 % 19-41 [facility] Work Phone: [phone] Blood monocytes/100 leukocyt eson 10-12-2021 Monocytes/100 WBC (Bld) 7.9 % 0-10 [facility] Work Phone: [phone] Blood platelet mean volumeon 10-12-2021 Platelet mean volume (Bld) [Entitic vol] 9.5 fL 6.2-12.0 [facility] Work Phone: [phone] Determination of erythrocyte mean corpuscular volume (MCV)on 10-12-2021 MCV (RBC) [Entitic vol] 92.7 fL 81-99 [facility] Work Phone: [phone] Hematocrit Auto (Bld) [Volum e fraction]on 10-12-2021 Hematocrit (Bld) [Volume fraction] 42.1 % 37-47 [facility] Work Phone: [phone] Laboratory - Chemistry and C hemistry - challengeon 10-12-2021 CO2 [Moles/Vol] 33.0 mmol/L 21.0-32.0 [facility] Work Phone: [phone] Urea nitrogen/Creatinine [Mass ratio] 26.6 mg/mg 10-20 [facility] Work Phone: [phone] Laboratory - Hematology and Cell countson 10-12-2021 Erythrocyte distribution width (RBC) [Entitic vol] 42.5 fL 35.1-43.9 [facility] Work Phone: [phone] Erythrocyte distribution width (RBC) [Ratio] 12.6 % 11.6-14.6 [facility] Work Phone: [phone] Immature granulocytes/100 WBC (Bld) 0.400 % 0.0-0.9 [facility] Work Phone: [phone] Comment on above: IG% - Immature Granu locytes (promyelocytes, myelocytes and metamyelocytes) > 1% indicates that a LEFT SHIFT is Present. MCH (RBC) [Entitic mass] 29.7 pg 27.0-32.0 [facility] Work Phone: Nucleated RBC/100 WBC (Bld) [Ratio] 0 % 0-5 [facility] Work Phone: [phone] MCHC Auto (RBC) [Mass/Vol]on 10-12-2021 MCHC (RBC) [Mass/Vol] 32.1 g/dL 32-36 [facility] Work Phone: No Panel Informationon 10-12 Troponin I High Sensitivity 13 pg/mL 3.0-54.0 [facility] Work Phone: [phone] Comment on above: Please Note: New Vanessa t Units and Gender Specific Reference Ranges. For more information see Policy Stat Procedure [place] High Sensitivity Troponin (TNIH) and attachments. Estimated Creatinine Clearance Calc 73.85 ml/min [facility] Work Phone: [phone] Estimated GFR (MDRD) Amer 134 mL/min >60 [facility] Work Phone: [phone] Comment on above: GFR Calc Estimated GFR (MDRD) Non-Af Amer 111 mL/min >60 [facility] Work Phone: Comment on above: Non- GFR Calc Platelets bldon 10-12-2021 Platelets (Bld) [#/Vol] 209 10*3/uL 150-450 [facility] Work Phone: [phone] Serum or plasma calcium aaron urement (mass/volume)on 10-12-2021 Calcium [Mass/Vol] 10.1 mg/dL 8.5-10.1 [facility] Work Phone: [phone] Serum or plasma creatinine m easurement (mass/volume)on 10-12-2021 Creatinine [Mass/Vol] 0.56 mg/dL 0.55-1.02 [facility] Work Phone: [phone] Comment on above: The validity of the calculated GFR & GFRAA in patients over 70 years has not been determined. Clinical correlation is essential. Serum or plasma urea nitroge n measurement (mass/volume)on 10-12-2021 Urea nitrogen [Mass/Vol] 15 mg/dL 7-18 [facility] Work Phone: [phone] Thin prep Papanicolaou smear with manual screeningon 10-12-2021 Thin prep Papanicolaou smear with manual screening 0 5-15 [facility] Work Phone: Basophil percentageon 2021 Bilirubin [Mass/Vol] 0.60 mg/dL 0.20-1.00 [facility] Work Phone: [phone] Comment on above: For patients on eltr ombopag therapy, use of Dimension [place] TBIL is not recommended. Cholesterol [Mass/Vol] 109 mg/dL <200 [facility] Work Phone: [phone] Comment on above: <200 mg/dL Desirable 200-240 mg/dL Borderline >240 mg/dL High Risk Protein [Mass/Vol] 6.3 g/dL 6.4-8.2 [facility] Work Phone: [phone] Triglyceride [Mass/Vol] 139 mg/dL [facility] Work Phone: [phone] Comment on above: The drugs N-Acetylcy steine and Metamizole may falsely depress this assay.Serum Triglycerides Reference Interval Normal <150 mg/dL Borderline high 150 - 199 mg/dL High 200 - 499 mg/dL Very High > or = 500 mg/dL Direct bilirubinon 2 Bilirubin.direct [Mass/Vol] 0.19 mg/dL 0.00-0.30 [facility] Work Phone: [phone] Laboratory - Chemistry and C hemistry - challengeon 05-30-2021 ALP [Catalytic activity/Vol] 101 U/L 45-117 [facility] Work Phone: [phone] ALT [Catalytic activity/Vol] 20 U/L 13-56 [facility] Work Phone: [phone] Globulin (S) [Mass/Vol] 3.2 g/dL 2.2-4.2 [facility] Work Phone: [phone] Serum or plasma albumin aaron urement (mass/volume)on 05-30-2021 Albumin [Mass/Vol] 3.1 g/dL 3.2-5.0 [facility] Work Phone: Serum or plasma cholesterol in HDL measurement (mass/volume)on 05-30-2021 Cholesterol in HDL [Mass/Vol] 41 mg/dL [facility] Work Phone: Comment on above: The drugs N-Acetylcy steine and Metamizole may falsely depress this assay. Reference Range HDL <40 mg/dL Low HDL Cholesterol HDL >or= 60 mg/dL High HDL Cholesterol Serum or plasma cholesterol in VLDL measurement (mass/volume)on 05-30-2021 Cholesterol in VLDL [Mass/Vol] 28 mg/dL 5-40 [facility] Work Phone: Serum or plasma low density lipoprotein (LDL) cholesterol measurement (mass/volume)on 05-30-2021 Cholesterol in LDL [Mass/Vol] 40 mg/dL 0-130 [facility] Work Phone: Thin prep Papanicolaou smear with manual screeningon 05-30-2021 Thin prep Papanicolaou smear with manual screening 13 U/L 15-37 [facility] Work Phone: Lab Report: Basic Metabolic Profile (BMP)on 10-28-2016 Anion gap 4 mmol/L Low 5-15 [facility] Work Phone: [phone] Anion gap molar conc 4 mmol/L Low 5-15 [facility] Work Phone: [phone] BUN/Creatinine Ratio 17.8 RATIO Invalid Interpretation Code 10-20 [facility] Work Phone: [phone] Calcium 9.8 mg/dL Invalid Interpretation Code 8.5-10.1 [facility] Work Phone: [phone] Chloride 107 mmol/L Invalid Interpretation Code 98-107 [facility] Work Phone: [phone] CO2 31.0 mmol/L Invalid Interpretation Code 21.0-32.0 [facility] [email or web address] Work Phone: [phone] CO2 ppres (BldV) 31.0 mmol/L 21.0-32.0 [facility] Work Phone: [phone] Creatinine 0.62 mg/dL Invalid Interpretation Code 0.55-1.02 [facility] [email or web address] Work Phone: [phone] eGFR (non-black) 122 mL/min/{1.73_m2} Invalid Interpretation Code >60 [employer] Work Phone: [phone] eGFR (non-black) 101 mL/min/{1.73_m2} Invalid Interpretation Code >60 [employer] Work Phone: [phone] EST GFR - AA 122 mL/min >60 [employer] Work Phone: [phone] Glucose 98 mg/dL Invalid Interpretation Code 70-110 [employer] Work Phone: [phone] Glucose mass conc 98 mg/dL 70-110 [employer] Work Phone: [phone] Potassium 4.4 mmol/L Invalid Interpretation Code 3.5-5.1 [employer] Work Phone: [phone] Sodium 142 mmol/L Invalid Interpretation Code 136-145 [employer] Work Phone: [phone] Urea nitrogen 11 mg/dL Invalid Interpretation Code 7-18 [employer] Work Phone: [phone] Office Visit: [facility] 08-27-19 17 Fall risk assessment No Invalid Interpretation Code [employer] Work Phone: [phone] Office Visiton 11-27-2015 Documentation of current medications (procedure) Done Invalid Interpretation Code [employer] Work Phone: [phone] Protein mass conc Done [employer] Work Phone: [phone] Clinical Lists Update: Pre custom stock maker 11-23-2015 Left ventricular Ejection fraction 55 % Invalid Interpretation Code [employer] Work Phone: [phone] Clinical Lists Update: Pre custom stock maker 10-26-2015 Alanine aminotransferase (ALT) 17 U/L Invalid Interpretation Code [employer] Work Phone: [phone] Albumin 2.8 g/dL Low [employer] Work Phone: [phone] Alkaline phosphatase (ALP) 121 U/L Invalid Interpretation Code [employer] Work Phone: [phone] ALP enzyme act/vol (Bld) 121 U/L [employer] Work Phone: [phone] Anion gap 6 mmol/L Invalid Interpretation Code [employer] Work Phone: [phone] Anion gap molar conc 6 mmol/L [facility] Work Phone: [phone] Aspartate aminotransferase (AST) 13 U/L Low [facility] Work Phone: [phone] Bilirubin (total) 0.60 mg/dL Invalid Interpretation Code [facility] Work Phone: [phone] BUN/Creatinine Ratio 18.2 mg/mg Invalid Interpretation Code [facility] Work Phone: [phone] Calcium 9.1 mg/dL Invalid Interpretation Code [facility] Work Phone: [phone] Chloride 105 mmol/L Invalid Interpretation Code [facility] Work Phone: [phone] Cholesterol 91 mg/dL Invalid Interpretation Code [facility] Work Phone: [phone] CO2 27.0 mmol/L Invalid Interpretation Code [facility] Work Phone: [phone] CO2 ppres (BldV) 27.0 mmol/L [facility] Work Phone: [phone] Creatinine 0.55 mg/dL Invalid Interpretation Code [facility] Work Phone: [phone] Globulin 3.3 g/dL Invalid Interpretation Code [facility] Work Phone: [phone] Globulin mass conc (S) 3.3 g/dL [facility] Work Phone: [phone] Glucose 102 mg/dL Invalid Interpretation Code [facility] Work Phone: [phone] Glucose mass conc 102 mg/dL [facility] Work Phone: [phone] HDL Cholesterol 36 mg/dL Low [facility] Work Phone: [phone] LDL Cholesterol 32 mg/dL Invalid Interpretation Code [facility] Work Phone: [phone] Potassium 3.8 mmol/L Invalid Interpretation Code [facility] Work Phone: [phone] Protein 6.1 g/dL Low [facility] Work Phone: [phone] Sodium 138 mmol/L Invalid Interpretation Code [facility] Work Phone: [phone] Triglyceride 116 mg/dL Invalid Interpretation Code [facility] Work Phone: [phone] Urea nitrogen 10 mg/dL Invalid Interpretation Code [facility] Work Phone: [phone] very low density lipoproteins 23 mg/dL Invalid Interpretation Code [facility] Work Phone: [phone] Clinical Lists Update: Prelo custom stock maker 10-25-2015 Erythrocyte distribution width Ratio (RBC) 14.3 % [facility] Work Phone: [phone] Erythrocytes (RBC) 4.74 10*6/uL Invalid Interpretation Code [facility] Work Phone: [phone] Hematocrit (HCT) 40.1 % Invalid Interpretation Code [facility] Work Phone: [phone] Hematocrit Volume Fraction (Bld) 40.1 % [facility] Work Phone: [phone] Hemoglobin (HGB) 12.5 g/dL Invalid Interpretation Code [facility] Work Phone: [phone] MCH 26.4 pg Low [facility] Work Phone: [phone] MCH Entitic mass (RBC) 26.4 pg Low [facility] Work Phone: [phone] MCHC 31.2 g/dL Low [facility] Work Phone: [phone] MCHC mass conc (RBC) 31.2 g/dL Low [facility] Work Phone: [phone] MCV 84.6 fL Invalid Interpretation Code [facility] Work Phone: [phone] MCV Entitic volume (RBC) 84.6 fL [facility] Work Phone: [phone] Platelet mean volume Entitic volume (Bld) 9.3 fL [facility] Work Phone: [phone] Platelets 212 10*3/mm3 Invalid Interpretation Code [facility] Work Phone: [phone] Platelets #/vol (Bld) 212 10*3/mm3 [facility] Work Phone: [phone] PMV by Gabe 9.3 fL Invalid Interpretation Code [facility] Work Phone: [phone] RBC #/vol (Bld) 4.74 10*6/uL [facility] Work Phone: [phone] RDW-CA 14.3 % Invalid Interpretation Code [facility] Work Phone: [phone] WBC #/vol (Bld) 6.4 10*3/uL [facility] Work Phone: [phone] WBC (Leukocytes) 6.4 10*3/uL Invalid Interpretation Code [facility] [email or web address] Work Phone: [phone] Lab Report: Liver Profileon 06-25-2015 Bilirubin (direct) 0.12 mg/dL Invalid Interpretation Code 0.00-0.30 [facility] Work Phone: [phone] Globulin 3.9 g/dL High 2.3-3.5 [facility] Work Phone: [phone] Globulin mass conc (S) 3.9 g/dL High 2.3-3.5 [facility] [email or web address] Work Phone: [phone] Office Visit: [facility] 03-28-19 16 Tobacco smoking status CTIS Never smoker [facility] [email or web address] Work Phone: [phone] Tobacco use HS Never smoker Invalid Interpretation Code [facility] [email or web address] Work Phone: [phone] Office Visit: [facility] 03-01-20 14 cardiac risk group C Invalid Interpretation Code [facility] [email or web address] Work Phone: [phone] General cardiovascular disease 10Y risk [#] [place] N/A Invalid Interpretation Code [email or web address] Work Phone: [phone] Tobacco smoking status CTIS Never Invalid Interpretation Code [facility] [email or web address] Work Phone: [phone] Replaced Document: [place] Observationson 03-01-2014 EKG QRS axis -32 deg [facility] [email or web address] Work Phone: [phone] electrocardiogram interpretation Sinus Rhythm -RSR(V1) -nondiagnostic. PROBABLY NORMAL Invalid Interpretation Code [email or web address] Work Phone: [phone] GE use only - for [employer] import when terms are not otherwise specified 406 ms Invalid Interpretation Code [facility] [email or web address] Work Phone: [phone] Interpretation Sinus Rhythm -RSR(V1) -nondiagnostic. PROBABLY NORMAL [facility] [email or web address] Work Phone: [phone] P Bath 60 deg [facility] [email or web address] Work Phone: P wave axis, electrocardiogram 60 deg Invalid Interpretation Code [facility] [email or web address] Work Phone: [phone] SC Interval 132 ms [facility] [email or web address] Work Phone: [phone] SC interval, electrocardiogram 132 ms Invalid Interpretation Code [facility] Work Phone: [phone] Pulse (Heart Rate) 73 /min Invalid Interpretation Code [facility] Work Phone: [phone] QRS axis, electrocardiogram -32 deg Invalid Interpretation Code [facility] Work Phone: [phone] QRS Duration 102 ms [facility] Work Phone: [phone] QRS duration, electrocardiogram 102 ms Invalid Interpretation Code [facility] Work Phone: [phone] QT Interval new path ms [facility] Work Phone: [phone] QT interval, electrocardiogram new path ms Invalid Interpretation Code [facility] Work Phone: [phone] QTc Lee 406 ms [facility] Work Phone: [phone] T Bath 10 deg [facility] Work Phone: [phone] T wave axis, electrocardiogram 10 deg Invalid Interpretation Code [facility] Work Phone: [phone] Lab Report: TROPon 2 Troponin I ng/mL Normal <0.06 [facility] Work Phone: [phone] Vital Signs Date Time Vital Sign Value Performing Clinician Rosei han 06-18-2024 21:58-0400 Body temperature 98.1 [degF] Dr. Lilly Fletcher MD Work Phone: [facility] 06-18-2024 21:58-0400 Diastolic blood pressure 60 mm[Hg] Dr. Lilly Fletcher MD Work Phone: [facility] 06-18-2024 21:58-0400 Heart rate 91 /min Dr. Lilly Fletcher MD Work Phone: [facility] 06-18-2024 21:58-0400 Respiratory rate 16 /min Dr. Lilly Fletcher MD Work Phone: [facility] 06-18-2024 21:58-0400 SaO2% (BldA) [Mass fraction] 97 % Dr. Lilly Fletcher MD Work Phone: [facility] 06-18-2024 21:58-0400 Systolic blood pressure 116 mm[Hg] Dr. Lilly Fletcher MD Work Phone: [facility] 06-18-2024 20:34-0400 Body height 149.[address] Lilly Fletcher MD Work Phone: [phone] [place] [address] 06-18-2024 20:34-0400 Body mass index (BMI) [Ratio] 43.2 kg/m2 Dr. Lilly Fletcher MD Work Phone: [phone] [place] [address] 06-18-2024 20:34-0400 Body weight 97.[address] Lilly Fletcher MD Work Phone: [phone] [address] 03-25-2023 16:24-0500 Body height 149.[address] Lilly Fletcher Work Phone: [phone] [place] [address] 03-25-2023 16:24-0500 Body mass index (BMI) [Ratio] 43 kg/m2 Dr. Lilly Fletcher Work Phone: [phone] [place] [address] 03-25-2023 16:24-0500 Body temperature 97.8 [degF] Dr. Lilly Fletcher Work Phone: [phone] [place] [address] 03-25-2023 16:24-0500 Body weight 96.[address] Lilly Fletcher Work Phone: [phone] [place] [address] 03-25-2023 16:24-0500 Diastolic blood pressure 90 mm[Hg] Dr. Lilly Fletcher Work Phone: [phone] [address] 03-25-2023 16:24-0500 Heart rate 82 /min Dr. Lilly Fletcher Work Phone: [phone] [place] [address] 03-25-2023 16:24-0500 Respiratory rate 20 /min Dr. Lilly Fletcher Work Phone: [phone] [place] [address] 03-25-2023 16:24-0500 SaO2% (BldA) [Mass fraction] 95 % Dr. Lilly Fletcher Work Phone: [facility] 03-25-2023 16:24-0500 Systolic blood pressure 152 mm[Hg] Dr. Lilly Fletcher Work Phone: [facility] 02-02-2023 10:11-0500 Body height 149.[address] Lilly Fletcher Work Phone: [facility] 02-02-2023 10:11-0500 Body mass index (BMI) [Ratio] 43.8 kg/m2 Dr. Lilly Fletcher Work Phone: [facility] 02-02-2023 10:11-0500 Body weight 98.[address] Lilly Fletcher Work Phone: [facility] 02-02-2023 10:11-0500 Diastolic blood pressure 73 mm[Hg] Dr. Lilly Fletcher Work Phone: [facility] 02-02-2023 10:11-0500 Heart rate 87 /min Dr. Lilly Fletcher Work Phone: [facility] 02-02-2023 10:11-0500 Respiratory rate 18 /min Dr. Lilly Fletcher Work Phone: [facility] 02-02-2023 10:11-0500 SaO2% (BldA) [Mass fraction] 94 % Dr. Lilly Fletcher Work Phone: [facility] 02-02-2023 10:11-0500 Systolic blood pressure 137 mm[Hg] Dr. Lilly Fletcher Work Phone: [facility] 10-31-2021 10:51-0400 Body height 147.[address] Lilly Fletcher Work Phone: [facility] Work Phone: 10-31-2021 10:51-0400 Body mass index (BMI) [Ratio] 44.5 kg/m2 Dr. Lilly Fletcher Work Phone: [facility] Work Phone: 10-31-2021 10:51-0400 Body weight 96.[address] Lilly Fletcher Work Phone: [facility] Work Phone: 10-31-2021 10:51-0400 Diastolic blood pressure 90 mm[Hg] Dr. Lilly Fletcher Work Phone: [facility] Work Phone: 10-31-2021 10:51-0400 Heart rate 67 /min Dr. Lilly Fletcher Work Phone: [facility] Work Phone: 10-31-2021 10:51-0400 Respiratory rate 20 /min Dr. Lilly Fletcher Work Phone: [facility] Work Phone: 10-31-2021 10:51-0400 SaO2% (BldA) [Mass fraction] 94 % Dr. Lilly Fletcher Work Phone: [facility] Work Phone: 10-31-2021 10:51-0400 Systolic blood pressure 157 mm[Hg] Dr. Lilly Fletcher Work Phone: [facility] Work Phone: 10-12-2021 18:12-0400 Diastolic blood pressure 98 mm[Hg] [facility] Work Phone: 10-12-2021 18:12-0400 Heart rate 66 /min [facility] Work Phone: 10-12-2021 18:12-0400 Respiratory rate 17 /min [facility] Work Phone: 10-12-2021 18:12-0400 SaO2% (BldA) [Mass fraction] 97 % [facility] Work Phone: 10-12-2021 18:12-0400 Systolic blood pressure 169 mm[Hg] [facility] Work Phone: 10-12-2021 13:21-0400 Body height 147.32 cm [facility] Work Phone: 10-12-2021 13:21-0400 Body mass index (BMI) [Ratio] 45.7 kg/m2 [facility] Work Phone: 10-12-2021 13:21-0400 Body temperature 98.1 [degF] [facility] System Work Phone: 10-12-2021 13:21-0400 Body weight 99.3 kg [facility] Work Phone: 04-18-2021 07:35-0500 Body height 152.[address] Lilly Fletcher Work Phone: [facility] Work Phone: 04-18-2021 07:35-0500 Body mass index (BMI) [Ratio] 40.8 kg/m2 Dr. Lilly Fletcher Work Phone: [facility] Work Phone: 04-18-2021 07:35-0500 Body weight 95.[address] Lilly Fletcher Work Phone: [facility] Work Phone: 04-18-2021 07:35-0500 Diastolic blood pressure 84 mm[Hg] Dr. Lilly Fletcher Work Phone: [facility] Work Phone: 04-18-2021 07:35-0500 Heart rate 82 /min Dr. Lilly Fletcher Work Phone: [facility] Work Phone: 04-18-2021 07:35-0500 Respiratory rate 18 /min Dr. Lilly Fletcher Work Phone: [facility] Work Phone: 04-18-2021 07:35-0500 SaO2% (BldA) [Mass fraction] 95 % Dr. Lilly Fletcher Work Phone: [facility] Work Phone: 04-18-2021 07:35-0500 Systolic blood pressure 132 mm[Hg] Dr. Lilly Fletcher Work Phone: [facility] Work Phone: 10-28-2016 11:34-0400 BP Diastolic 108 mm[Hg] Harumi DeFinis [facility] Work Phone: 10-28-2016 11:34-0400 BP Systolic 150 mm[Hg] Harumi DeFinis [facility] Work Phone: 10-28-2016 11:34-0400 Pulse (Heart Rate) 76 /min Harumi DeFinis [facility] Work Phone: 10-28-2016 11:34-0400 Respiratory Rate 20 /min Harumi DeFinis [facility] Work Phone: 09-24-2016 11:42-0400 BP Diastolic 90 mm[Hg] Harumi DeFinis [facility] Work Phone: 09-24-2016 11:42-0400 BP Systolic 148 mm[Hg] Harumi DeFinis [facility] Work Phone: 09-24-2016 11:42-0400 Pulse (Heart Rate) 64 /min Harumi DeFinis [facility] Work Phone: 09-24-2016 11:42-0400 Respiratory Rate 20 /min Harumi DeFinis [facility] Work Phone: 09-08-2016 11:25-0400 BP Diastolic 90 mm[Hg] Harumi DeFinis [facility] Work Phone: 09-08-2016 11:25-0400 BP Systolic 160 mm[Hg] Harumi DeFinis [facility] Work Phone: 09-08-2016 11:25-0400 Pulse (Heart Rate) 72 /min Harumi DeFinis [facility] Work Phone: 09-08-2016 11:25-0400 Respiratory Rate 20 /min Harumi DeFinis [facility] Work Phone: 08-26-2016 11:40-0400 BMI (Body Mass Index) 42.65 kg/m2 MD [facility] Work Phone: 08-26-2016 11:40-0400 BP Diastolic 74 mm[Hg] MD [facility] Work Phone: 08-26-2016 11:40-0400 BP Systolic 160 mm[Hg] MD [facility] Work Phone: 08-26-2016 11:40-0400 Height 152.4 cm MD [facility] Work Phone: 08-26-2016 11:40-0400 Pulse (Heart Rate) 72 /min MD [facility] Work Phone: 08-26-2016 11:40-0400 Respiratory Rate 20 /min Elie Davis MD [facility] Work Phone: 08-26-2016 11:40-0400 Weight 99.07 kg Elie Davis MD [facility] Work Phone: 11-27-2015 15:03-0400 BSA (Body Surface Area) 1.95 m2 Elie Davis MD [facility] Work Phone: 03-01-2014 09:21-0500 Heart rate 73 /min Kobivinayak Harrykatie [facility] Work Phone: Encounters Encounter Date Encounter Type Care Provider Facility Start: 06-18-2024 End: 06-18-2024 Emergency department patient visit Dr. Lilly Fletcher MD Work Phone: -Emergency Department Work Phone: Start: 10-07-2023 ambulatory Lilly Fletcher Facility: [facility] Start: 10-06-2023 ambulatory Lilly Fletcher Facility: [facility] Start: 10-06-2023 End: 10-06-2023 ambulatory Ginger Grace FRETTED STRING INSTRUMENT REPAIRER Facility:[facility] Start: 09-04-2023 End: 09-04-2023 ambulatory Ginger Grace FRETTED STRING INSTRUMENT REPAIRER Facility:[facility] Start: 08-10-2023 End: 08-10-2023 ambulatory Lilly Fletcher Facility:[facility] Start: 08-10-2023 End: 08-10-2023 ambulatory Ginger Grace FRETTED STRING INSTRUMENT REPAIRER Facility:[facility] Start: 08-03-2023 End: 08-03-2023 ambulatory Ginger Grace FRETTED STRING INSTRUMENT REPAIRER Facility:[facility] Start: 07-15-2023 End: 07-16-2023 Emergency department patient visit Gayleroxana Us Facility:[facility] Start: 03-25-2023 End: 03-25-[address] Lilly Fletcher Work Phone: [facility] Work Phone: Start: 03-25-2023 End: 03-25-[address] Lilly Fletcher Work Phone: [facility] Work Phone: Start: 02-02-2023 End: 02-02-[address] Lilly Fletcher Work Phone: [facility] Work Phone: Start: 02-02-2023 End: 02-02-[address] Lilly Fletcher Work Phone: [facility] Work Phone: Start: 01-07-2022 End: 01-07-[address] Lilly Fletcher Work Phone: [facility] Work Phone: Start: 01-07-2022 End: 01-07-[address] Lilly Fletcher Work Phone: [facility] Start: 12-25-2021 End: 12-25-[address] Lilly Fletcher Work Phone: [facility] Work Phone: Start: 12-25-2021 End: 12-25-[address] Lilly Fletcher Work Phone: [facility] Start: 11-20-2021 Non-patient / Non-visit Dr. Bella Fletcher Work Phone: [facility] Start: 11-20-2021 End: 11-20-[address] Lilly Fletcher Work Phone: [facility] Work Phone: Start: 11-20-2021 End: 11-20-[address] Lilly Fletcher Work Phone: [facility]Cardi[facility] Start: 11-07-2021 End: 11-07-[address] Lilly Fletcher Work Phone: [facility] Work Phone: Start: 11-07-2021 End: 11-07-[address] Lilly Fletcher Work Phone: [facility] Services/Neurology Start: 10-31-2021 End: 10-31-[address] Lilly Fletcher Work Phone: [facility] Start: 10-12-2021 End: 10-12-2021 Emergency department patient visit [facility] Start: 05-30-2021 End: 05-30-[address] Lilly Fletcher Work Phone: [facility] Start: 05-08-2021 Non-patient / Non-visit Dr. Bella Fletcher Work Phone: [facility] Start: 05-08-2021 End: 05-08-[address] [facility] Start: 04-18-2021 End: 04-18-[address] Lilly Fletcher Work Phone: [facility] Procedures Date Procedure Procedure Detail Performing Clinician Start: 03-25-[address] Lilly santana Work Phone: Start: 10-12-2021 Plain chest X-ray Start: 05-08-2021 Cardiovascular stres s test using pharmacologic stress agent Dr. Lilly Fletcher Work Phone: Start: 10-28-2016 End: 10-28-2016 Follow Up BP Check Elie Davis MD Start: 09-24-2016 End: 10-28-2016 *BMP Kale Ansari FRETTED STRING INSTRUMENT REPAIRER Work Phone: Start: 09-24-2016 End: 09-24-2016 Follow Up BP Check Elie Davis MD Start: 08-26-2016 End: 09-08-2016 *BMP Kale H Coty FRETTED STRING INSTRUMENT REPAIRER Work Phone: Start: 08-26-2016 End: 08-27-2016 HAIR AND MAKEUP DESIGNER Kale Ansari FRETTED STRING INSTRUMENT REPAIRER Work Phone: Start: 08-26-2016 End: 08-27-2016 Follow Up Appt 6 months Kale Ansari FRETTED STRING INSTRUMENT REPAIRER Work Phone: Start: 08-26-2016 End: 09-08-2016 Follow Up BP Check Kale H Coty FRETTED STRING INSTRUMENT REPAIRER Work Phone: Start: 11-27-2015 End: 11-27-2015 Follow Up Appt 6 months Willis Lara Start: 11-27-2015 End: 11-27-2015 MMM Elie Davis MD Start: 11-22-2015 End: 11-29-2015 Lipid panel [AGGREGATE] Vivien lopez PA-C Work Phone: Start: 06-15-2015 End: 06-25-2015 *Hepatic Function Panel Vivien lopez PA-C Work Phone: Start: 06-15-2015 End: 06-25-2015 Lipid panel [AGGREGATE] Vivien lopez PA-C Work Phone: Start: 03-28-2015 End: 03-28-2015 HAIR AND MAKEUP DESIGNER Vivien Haynes PA-C Work Phone: Start: 03-28-2015 End: 04-06-2015 Echocardiography Vivien Haynes PA-C Work Phone: Start: 03-28-2015 End: 03-28-2015 Follow Up Appt 6 months Vivien lopez PA-C Work Phone: Start: 11-29-2014 End: 12-14-2014 *Hepatic Function Panel Willis Lara Start: 11-29-2014 End: 12-14-2014 Lipid panel [AGGREGATE] Willis Lara Start: 09-12-2014 End: 09-13-2014 Documentation of current medications Elie Davis MD Start: 09-12-2014 End: 09-12-2014 Echocardiography Elie Davis MD Start: 09-12-2014 End: 09-12-2014 MMM Elie Davis MD Start: 05-24-2014 End: 05-29-2014 *Hepatic Function Panel Willis Lara Start: 05-24-2014 End: 05-29-2014 Lipid panel [AGGREGATE] Willis Lara Start: 03-01-2014 End: 03-01-2014 HAIR AND MAKEUP DESIGNER Vivien Haynes PA-C Work Phone: Start: 03-01-2014 End: 03-01-2014 Electrocardiogram, complete Vivien Talley PA-C Work Phone: Start: 03-01-2014 End: 03-01-2014 Follow Up Appt 6 months Vivien lopez PA-C Work Phone: Start: 10-31-2013 End: 11-24-2013 *Hepatic Function Panel Willis Lara Start: 10-31-2013 End: 11-24-2013 Lipid panel [AGGREGATE] Willis Lara Start: 07-20-2013 End: 02-03-2014 Echocardiography Elie Davis MD Start: 07-20-2013 End: 07-20-2013 Follow Up Appt 6 months Willis Lara Start: 07-20-2013 End: 07-20-2013 MMWillis Davis MD Start: 04-02-2013 End: 05-12-2013 *Hepatic Function Panel Willis Lara Start: 04-02-2013 End: 05-12-2013 Lipid panel [AGGREGATE] Willis Lara Start: 12-07-2012 End: 12-07-2012 HAIR AND MAKEUP DESIGNER Vivien Haynes PA-C Work Phone: Start: 12-07-2012 End: 12-07-2012 Echocardiography Vivien Haynes PA-C Work Phone: Start: 12-07-2012 End: 12-07-2012 Follow Up Appt 6 months Vivien lopez PA-C Work Phone: Start: 08-30-2012 End: 09-27-2012 *Hepatic Function Panel Willis Lara Start: 08-30-2012 End: 09-27-2012 Lipid panel [AGGREGATE] Willis Lara Start: 06-04-2012 End: 06-04-2012 Follow Up Appt 6 months Willis Lara Start: 06-04-2012 End: 06-04-2012 MAE Davis MD Start: 03-03-2012 End: 03-24-2012 *Hepatic Function Panel Willis Lara Start: 03-03-2012 End: 03-24-2012 Lipid panel [AGGREGATE] Willis Lara Start: 09-23-2011 End: 10-03-2011 *Hepatic Function Panel Willis Lara Start: 09-23-2011 End: 10-03-2011 Lipid panel [AGGREGATE] Willis Lara Start: 08-13-2011 End: 08-13-2011 Follow Up Appt 6 months Willis Lara Plan of Treatment Date Care Activity Detail Author Start: 08-15-2024 ambulatory Ambulatory Facility:[facility] Start: 06-18-2024 End: 06-18-2024 [facility] Start: 10-12-2021 [facility] Work Phone: Start: 02-26-2017 End: 02-26-2017 Appointment Appointment [facility] Work Phone: Start: 11-11-2016 End: 11-11-2016 Appointment Appointment [facility] Work Phone: Start: 10-28-2016 End: 10-28-2016 Appointment Appointment [facility] Work Phone: Start: 10-28-2016 End: 10-28-2016 Follow Up BP Check Follow Up BP Check [facility] Work Phone: Start: 10-08-2016 End: 10-08-2016 Appointment Appointment [facility] Work Phone: Start: 09-24-2016 End: 09-24-2016 Appointment Appointment [facility] Work Phone: Start: 09-24-2016 End: 10-28-2016 *BMP *BMP [facility] Work Phone: Start: 09-24-2016 End: 09-24-2016 Follow Up BP Check Follow Up BP Check [facility] Work Phone: Start: 09-22-2016 End: 09-22-2016 Appointment Appointment [facility] Work Phone: Start: 09-08-2016 End: 09-08-2016 Appointment Appointment [facility] Work Phone: Start: 09-05-2016 End: 09-05-2016 Appointment Appointment [facility] Work Phone: Start: 08-27-2016 End: 08-27-2016 Appointment Appointment [facility] Work Phone: Start: 08-26-2016 End: 09-08-2016 *BMP *BMP [facility] Work Phone: Start: 08-26-2016 End: 08-27-2016 *Hepatic Function Panel *Hepatic Function Panel [facility] Work Phone: Start: 08-26-2016 End: 08-27-2016 HAIR AND MAKEUP DESIGNER HAIR AND MAKEUP DESIGNER [facility] Work Phone: Start: 08-26-2016 End: 08-27-2016 Follow Up Appt 6 months Follow Up Appt 6 months [facility] Work Phone: Start: 08-26-2016 End: 09-08-2016 Follow Up BP Check Follow Up BP Check [facility] Work Phone: Start: 08-26-2016 End: 08-27-2016 Lipid panel [AGGREGATE] *Lipid Profile CC PCP [facility] Work Phone: Start: 11-27-2015 End: 11-27-2015 Follow Up Appt 6 months Follow Up Appt 6 months [facility] Work Phone: Start: 11-27-2015 End: 11-27-2015 MMM MMM [facility] Work Phone: Start: 11-22-2015 End: 11-29-2015 Lipid panel [AGGREGATE] *Lipid Profile CC PCP [facility] Work Phone: Start: 06-15-2015 End: 06-25-2015 *Hepatic Function Panel *Hepatic Function Panel [facility] Work Phone: Start: 06-15-2015 End: 06-25-2015 Lipid panel [AGGREGATE] *Lipid Profile CC PCP [facility] Work Phone: Start: 03-28-2015 End: 03-28-2015 HAIR AND MAKEUP DESIGNER HAIR AND MAKEUP DESIGNER [facility] Work Phone: Start: 03-28-2015 End: 03-28-2015 Echocardiography Echocardiogram (complete) [facility] Work Phone: Start: 03-28-2015 End: 03-28-2015 Follow Up Appt 6 months Follow Up Appt 6 months [facility] Work Phone: Start: 11-29-2014 End: 12-14-2014 *Hepatic Function Panel *Hepatic Function Panel [facility] Work Phone: Start: 11-29-2014 End: 12-14-2014 Lipid panel [AGGREGATE] *Lipid Profile CC PCP [facility] Work Phone: Start: 09-12-2014 End: 09-12-2014 Follow Up Appt 6 months Follow Up Appt 6 months [facility] Work Phone: Start: 09-12-2014 End: 09-12-2014 MMM MMM [facility] Work Phone: Start: 05-24-2014 End: 05-29-2014 *Hepatic Function Panel *Hepatic Function Panel [facility] Work Phone: Start: 05-24-2014 End: 05-29-2014 Lipid panel [AGGREGATE] *Lipid Profile CC PCP [facility] Work Phone: Start: 03-01-2014 End: 03-01-2014 HAIR AND MAKEUP DESIGNER HAIR AND MAKEUP DESIGNER [facility] Work Phone: Start: 03-01-2014 End: 03-01-2014 Electrocardiogram, complete EKG (In office) [facility] Work Phone: Start: 03-01-2014 End: 03-01-2014 Follow Up Appt 6 months Follow Up Appt 6 months [facility] Work Phone: Start: 10-31-2013 End: 11-24-2013 *Hepatic Function Panel *Hepatic Function Panel [facility] Work Phone: Start: 10-31-2013 End: 11-24-2013 Lipid panel [AGGREGATE] *Lipid Profile CC PCP [facility] Work Phone: Start: 07-20-2013 End: 07-20-2013 Echocardiography Echocardiogram (complete) [facility] Work Phone: Start: 07-20-2013 End: 07-20-2013 Follow Up Appt 6 months Follow Up Appt 6 months [facility] Work Phone: Start: 07-20-2013 End: 07-20-2013 MMM MMM [facility] Work Phone: Start: 04-02-2013 End: 05-12-2013 *Hepatic Function Panel *Hepatic Function Panel [facility] Work Phone: Start: 04-02-2013 End: 05-12-2013 Lipid panel [AGGREGATE] *Lipid Profile CC PCP [facility] Work Phone: Start: 12-07-2012 End: 12-07-2012 HAIR AND MAKEUP DESIGNER HAIR AND MAKEUP DESIGNER [facility] Work Phone: Start: 12-07-2012 End: 12-07-2012 Follow Up Appt 6 months Follow Up Appt 6 months [facility] Work Phone: Start: 08-30-2012 End: 09-27-2012 *Hepatic Function Panel *Hepatic Function Panel [facility] Work Phone: Start: 08-30-2012 End: 09-27-2012 Lipid panel [AGGREGATE] *Lipid Profile [facility] Work Phone: Start: 06-04-2012 End: 06-04-2012 Follow Up Appt 6 months Follow Up Appt 6 months [facility] Work Phone: Start: 06-04-2012 End: 06-04-2012 MMM MMM [facility] Work Phone: Start: 03-03-2012 End: 03-24-2012 *Hepatic Function Panel *Hepatic Function Panel [facility] Work Phone: Start: 03-03-2012 End: 03-24-2012 Lipid panel [AGGREGATE] *Lipid Profile [facility] Work Phone: Start: 09-23-2011 End: 10-03-2011 *Hepatic Function Panel *Hepatic Function Panel [facility] Work Phone: Start: 09-23-2011 End: 10-03-2011 Lipid panel [AGGREGATE] *Lipid Profile [facility] Work Phone: Start: 08-13-2011 End: 08-13-2011 Follow Up Appt 6 months Follow Up Appt 6 months [facility] Work Phone: Patient Education [facility] Work Phone: Patient referral [facility] Work Phone: [facility] Work Phone: [facility] Payers Date Payer Category Payer Self-pay [id number] 2023 Medicare [id number] Medicare [id number] Private Health Insurance [id number] Unknown [id number] 2.16.8 [id number] Unknown [id number] 2.16.8 [id number] Unknown [id number] 2.16.8 [id number] Unknown [id number] 2.16.8 [id number] Unknown [id number] 2.16.8 [id number] Unknown [id number] 2.16.8 [id number] Unknown [id number] 2.16.8 [id number] Unknown [id number] 2.16.8 [id number] Unknown [id number] 2.16.8 [id number] Unknown [id number] 2.16.8 [id number] Social History Date Type Detail Facility Start: 04-18-2021 End: 03-25-2023 Tobacco smoking status NHIS Unknown if ever smoked [facility] Start: 07-11-2020 None [facility] Start: 10-25-2015 With Family [facility] Start: 07-11-2020 Non-smoker [facility] Start: 1945 Sex Assigned At Female W [facility] Start: 06-18-2024 Tobacco smoking stat us NHIS Never smoked tobacco (finding) [facility] Start: 06-18-2024 Sex Female (finding) [facility] Mental Status Date Assessment Result Facility 10-12-2021 Cognitive function Voice/Name [facility] Work Phone: Discharge summary 06-18-2024 Note Date & Type Note Facility 06-18-2024 Discharge summary [facility] Discharge summary 06-18-2024 Note Date & Type Note Facility 06-18-2024 Discharge summary Note Date/Time June 18, 2024 9:59pm [facility] Medical Records Department [address] [place] [address] Emergency Department Summary 06/18/24 MR#: [id number] Acct: [id number] Name: AYAN CARRILLO Rep #:[id number] : 1945 78 From: Jennifer MAJOR PCP: Dr. Lilly Fletcher MD Status:REG ER Location: ED HPI <PEDRITO Delacruz - Last Filed: 06/18/24 21:58> HPI - Fall History of Present Illness Chief Complaint: Fall Narrative Narrative: 78-year-old female with PMH of HTN, HLD, CAD, GERD went to sit down this eveningand missed her chair and fell backwards landing on her back. She hit her head on the ground but denies LOC. Family called EMS who recommended she be seen. Patient denies pain or injury. She is not on blood thinners. She is primarily concerned about 6+ months of ongoing lightheadedness in the morning she attributes to her blood pressure medication. She is prescribed lisinopril 20 mgBID and carvedilol 20 mg BID but instead of taking the pills together in the morning she spaces them out by 4 hours in the morning in the evening to treat her lightheadedness. She states her cardiology appointment has been delayed andis now in the seventh to discuss this issue. She has had no recent chest pain, shortness of breath, palpitations or syncope. PFSH <PEDRITO Delacruz - Last Filed: 06/18/24 21:58> [facility] Medical History Obesity Essential (primary) hypertension Atherosclerotic heart disease of [place] coronary artery without angina pectoris Hyperlipidemia GERD (gastroesophageal reflux disease) Osteoarthritis Morbid obesity with BMI of 40.0-44.9, adult Home Medications ?Medication ?Instructions ?Recorded ?Last Taken ?Type aspirin 81 mg chewable tablet 81 mg PO QHS 10/25/15 History potassium gluconate 595 mg (99 mg) 595 mg PO DAILY PRN for low levels 09/09/18 Unknown History tablet atorvastatin 40 mg tablet 40 mg PO QHS #90 tabs Unknown Rx carvedilol 25 mg tablet 25 mg PO BID Dose has been 0 08/10/23 Unknown Rx increased #180 tabs nitroglycerin 0.4 mg sublingual 0.4 mg sublingual Q5M PRN Chest 08/10/23 Unknown Rx tablet Pain #25 tabs omeprazole 20 mg capsule,delayed 20 mg PO DAILY #90 ca ps 08/12/23 Unknown Rx release furosemide 40 mg tablet 40 mg PO DAILY this is a dos e 08/31/23 Unknown Rx increase #90 tabs lisinopril 20 mg tablet 20 mg PO BID #180 tabs 02/08 Unknown Rx Allergy/AdvReac Type Severity Reaction Status Date / Time hydrochlorothiazide AdvReac Intermediate Constipatio Verified 06/18/24 20:38 n Family History Father CAD (coronary artery disease) Mother CHF (congestive heart failure) Sister Hypertension Surgical History (Reviewed 08/10/23 @ 09:57 by Ginger Grace FRETTED STRING INSTRUMENT REPAIRER, FRETTED STRING INSTRUMENT REPAIRER-C) History of cholecystectomy History of left heart catheterization (06/04/08) History of coronary angioplasty (09/20/07) History of laparoscopic cholecystectomy History of total hysterectomy Social History Smoking Status: Never smoker alcohol intake: never substance use type: does not use ROS <PEDRITO Delacruz - Last Filed: 06/18/24 21:58> ROS ED ROS Narrative Constitutional: Negative for fever, chills, malaise. CVS: Negative for palpitations, chest pain, syncope. Respiratory: Negative for shortness of breath, cough. GI: Negative for abdominal pain, nausea, vomiting, diarrhea, melena, hematochezia. Neuro: Negative for headache. EXAM <PEDRITO Delacruz - Last Filed: 06/18/24 21:58> Physical Exam Narrative Exam Narrative: CONST: Patient sitting in no acute distress. EYES: Normal inspection. HEAD: Normocephalic atraumatic. NECK: Normal inspection. No midline spinal tenderness, no step off or crepitus. RESP: No respiratory distress, CTAB. CVS: Regular rate and rhythm, no murmur, no gallop. ABD: Soft and nontender, no guarding or rebound, nondistended. Back: Normal inspection, no midline tenderness. SKIN: Color normal, no rash, warm, dry, intact. EXTREMITIES: Normal appearance, no bony tenderness of upper or lower extremities, chronic bilateral ankle edema. 2+ radial and PT pulses. NEURO: Alert and answering questions appropriately. PSYCH: Normal affect. Const Vital Signs: 06/18/24 20:34 06/18/24 20:38 06/18/24 21:18 Temperature 97.8 F Temperature Source Oral Pulse Rate 77 Pulse Rate [Lying] 99 Pulse Rate [Sitting (for 1 minute prior to obtaining)] 96 Pulse Rate [Standing (for 1 minute prior to obtaining)] 91 Respiratory Rate 20 H Respiratory Effort Normal Respiratory Depth Normal Respiratory Pattern Normal Blood Pressure 135/98 H Blood Pressure [Lying] 119/83 H Blood Pressure [Sitting (for 1 minute prior to obtaining)] 123/70 H Blood Pressure [Standing (for 1 minute prior to obtaining)] 129/97 H Blood Pressure Mean 110 Blood Pressure Mean [Lying] 95 Blood Pressure Mean [Sitting (for 1 minute prior to obtaining)] 87 Blood Pressure Mean [Standing (for 1 minute prior to obtaining)] 107 Pulse Ox 95 95 Oxygen Delivery Method Room Air Room Air <Dr. Jay Hair MD - Last Filed: 06/18/24 21:59> Physical Exam Const Vital Signs: 06/18/24 20:34 06/18/24 20:38 06/18/24 21:18 Temperature 97.8 F Temperature Source Oral Pulse Rate 77 Pulse Rate [Lying] 99 Pulse Rate [Sitting (for 1 minute prior to obtaining)] 96 Pulse Rate [Standing (for 1 minute prior to obtaining)] 91 Respiratory Rate 20 H Respiratory Effort Normal Respiratory Depth Normal Respiratory Pattern Normal Blood Pressure 135/98 H Blood Pressure [Lying] 119/83 H Blood Pressure [Sitting (for 1 minute prior to obtaining)] 123/70 H Blood Pressure [Standing (for 1 minute prior to obtaining)] 129/97 H Blood Pressure Mean 110 Blood Pressure Mean [Lying] 95 Blood Pressure Mean [Sitting (for 1 minute prior to obtaining)] 87 Blood Pressure Mean [Standing (for 1 minute prior to obtaining)] 107 Pulse Ox 95 95 Oxygen Delivery Method Room Air Room Air [facility] <PEDRITO Delacruz - Last Filed: 06/18/24 21:58> [facility] Narrative Medical decision making narrative: 78-year-old female had a mechanical fall when she missed her chair landing on her back and buttocks. Mild head injury. No LOC. No blood thinners. Reports she is feeling off today. No specific symptoms. She appears well and nontoxic. Vital signs stable. She has a benign exam. She has no external injuries tenderness over the head spine or back. Moving all extremities and neurovascularly intact. Basic labs obtained. CBC within normal limits. BMP shows possible mild dehydration with BUN of 27, creatinine 0.70. No other abnormalities. I did give her IV fluids since she is on Lasix and does have chronic lower extremity edema. Orthostatic vital signs are negative. Patient was able to ambulate with her walker but felt a little sore so was treated with Tylenol. Patient and family are comfortable going home. Given return precautions. Discharged in stable condition. I have personally performed a face to face assessment of the patient and have reviewed the GREY Note. I performed a substantive portion of the visit including all aspects of the following. My buchanan findings include: History is [78-year-old female went to sit down the night missed the chair landed on her buttocks. No LOC. No blood thinners. Mild head injury. States she just felt off today. She thinks her blood pressure may be running low. Patient feels she might be on too much blood pressure medication. She denies any nausea, vomiting, diarrhea or fever. No chest pain or shortness of breath. No abdominal pain. No dysuria. States she just feels off.] Exam is [well-appearing 78-year-old female. Family members present in room. Vital signs are stable afebrile. Pulse ox 95% on room air no hypoxia. H EENT exam pupils round reactive light. Moist mucous membranes. Face scalp nontender no hematoma or laceration. C-spine and neck nontender. Lungs clear to auscultation bilaterally. Heart regular rhythm rate about 80 no murmur. Chest wall and ribs nontender. Abdomen soft nontender. Moving all 4 extremities. Nontender no deformity. Dorsi plantarflexion intact. Trace edema both lower extremities. Back nontender. Neurologically she is awake alert. Answer questions following commands. No focal motor deficits.] Medical Decision Making [78-year-old female fell at home when she went to sit down on a chair and missed it. Screening labs. CBC and chemistry are basically unremarkable other than mild dehydration. She is on Lasix and 2 blood pressure medications. Will ambulate her and also do orthostatic vital signs.] Other additions or changes: [None] Lab Data Labs: Laboratory Results - last 24 hr 06/18/24 20:53 WBC 7.3 RBC 4.64 Hgb 14.1 Hct 42.3 MCV 91.2 MCH 30.4 MCHC 33.3 RDW Std Deviation 41.5 RDW Coeff of Cory 12.6 Plt Count 222 MPV 9.3 Immature Gran % (Auto) 0.400 Neut % (Auto) 71.1 H Lymph % (Auto) 18.1 L Titus % (Auto) 9.1 Eos % (Auto) 1.0 Baso % (Auto) 0.3 Absolute Neuts (auto) 5.2 Absolute Lymphs (auto) 1.33 Nucleated RBC % 0 Sodium 139 Potassium 4.5 Chloride 102 Carbon Dioxide 27.6 Anion Gap 9 BUN 27 H Creatinine 0.70 Estim Creat Clear Calc 59.54 Est GFR (MDRD) Non-Af 88 BUN/Creatinine Ratio 38.3 H Glucose 114 H Calcium 10.4 <Dr. Jay Hair MD - Last Filed: 06/18/24 21:59> MDM MDM Narrative Medical decision making narrative: 78-year-old female had a mechanical fall when she missed her chair landing on her back and buttocks. Mild head injury. No LOC. No blood thinners. Reports she is feeling off today. No specific symptoms. She appears well and nontoxic. Vital signs stable. She has a benign exam. She has no external injuries tenderness over the head spine or back. Moving all extremities and neurovascularly intact. Basic labs obtained. CBC within normal limits. BMP shows possible mild dehydration with BUN of 27, creatinine 0.70. No other abnormalities. I did give her IV fluids since she is on Lasix and does have chronic lower extremity edema. Orthostatic vital signs are negative. Patient was able to ambulate with her walker but felt a little sore so was treated with Tylenol. Patient and family are comfortable going home. Given return precautions. Discharged in stable condition. I have personally performed a face to face assessment of the patient and have reviewed the GREY Note. I performed a substantive portion of the visit including all aspects of the following. My buchanan findings include: History is [78-year-old female went to sit down the night missed the chair landed on her buttocks. No LOC. No blood thinners. Mild head injury. States she just felt off today. She thinks her blood pressure may be running low. Patient feels she might be on too much blood pressure medication. She denies any nausea, vomiting, diarrhea or fever. No chest pain or shortness of breath. No abdominal pain. No dysuria. States she just feels off.] Exam is [well-appearing 78-year-old female. Family members present in room. Vital signs are stable afebrile. Pulse ox 95% on room air no hypoxia. H EENT exam pupils round reactive light. Moist mucous membranes. Face scalp nontender no hematoma or laceration. C-spine and neck nontender. Lungs clear to auscultation bilaterally. Heart regular rhythm rate about 80 no murmur. Chest wall and ribs nontender. Abdomen soft nontender. Moving all 4 extremities. Nontender no deformity. Dorsi plantarflexion intact. Trace edema both lower extremities. Back nontender. Neurologically she is awake alert. Answer questions following commands. No focal motor deficits.] Medical Decision Making [78-year-old female fell at home when she went to sit down on a chair and missed it. Screening labs. CBC and chemistry are basically unremarkable other than mild dehydration. She is on Lasix and 2 blood pressure medications. Will ambulate her and also do orthostatic vital signs.] Other additions or changes: [Exam patient doing well. Orthostatic vital signs were negative. She was able to ambulate in the hallway with her walker. She and family are comfortable with her being discharged home. Outpatient follow-up. She has mild dehydration but we did not feel that we should hydrate her with IV fluids. She can orally hydrate at home.] History & Record Review Discussion w/independent historian: Patient and Family Additional record(s) reviewed:: Prior inpatient record, Prior outpatient record,Prior ED visit and Prior labs Lab Data Attestation: I reviewed the patient's lab results. Lab results narrative: CBC shows a white count of 7. H&H 14 and 42. Platelets 222 electrolytes show agap of 9. BUN is elevated 27 creatinine 0.7. Glucose 114.. Labs: Laboratory Results - last 24 hr 06/18/24 20:53 WBC 7.3 RBC 4.64 Hgb 14.1 Hct 42.3 MCV 91.2 MCH 30.4 MCHC 33.3 RDW Std Deviation 41.5 RDW Coeff of Cory 12.6 Plt Count 222 MPV 9.3 Immature Gran % (Auto) 0.400 Neut % (Auto) 71.1 H Lymph % (Auto) 18.1 L [place] % (Auto) 9.1 Eos % (Auto) 1.0 Baso % (Auto) 0.3 Absolute Neuts (auto) 5.2 Absolute Lymphs (auto) 1.33 Nucleated RBC % 0 Sodium 139 Potassium 4.5 Chloride 102 Carbon Dioxide 27.6 Anion Gap 9 BUN 27 H Creatinine 0.70 Estim Creat Clear Calc 59.54 Est GFR (MDRD) Non-Af 88 BUN/Creatinine Ratio 38.3 H Glucose 114 H Calcium 10.4 Discharge Plan Triage Chief Complaint: Fall ED Midlevel Provider: Jennifer Meléndez ED Provider: Jay Hair Dx/Rx/DC Orders Clinical Impression: Fall, No traumatic injury Instructions: Falls Prevent Use Cane Walker Prescriptions: No Action potassium gluconate 595 mg (99 mg) tablet 595 mg PO DAILY PRN (Reason: for low levels) atorvastatin 40 mg tablet 40 mg PO QHS Qty: 90 3RF carvedilol 25 mg tablet 25 mg PO BID Qty: 180 3RF Rx Instructions: must administer with a meal/food nitroglycerin 0.4 mg tablet, sublingual 0.4 mg SUBLINGUAL Q5M PRN (Reason: Chest Pain) Qty: 25 2RF Patient Comments: chest pain aspirin 81 MG tablet,chewable 81 mg PO QHS Patient Comments: [facility] omeprazole 20 mg capsule,delayed release(DR/EC) 20 mg PO DAILY Qty: 90 3RF furosemide 40 mg tablet 40 mg PO DAILY Qty: 90 3RF lisinopril 20 mg tablet 20 mg PO BID Qty: 180 4RF Primary Care Provider: Lilly Fletcher Referrals: Lilly Fletcher MD [Primary Care Provider] - Activity Restrictions/Additional Instructions: Follow-up with your comic book designer to address your low blood pressure. Keep a daily log. Ice and take Tylenol as needed. If symptoms worsen come back to theER. Print Language: Somali Disposition Disposition: Home, Self Care What to do if you have Problems For any increased pain, shortness of breath, bleeding, nausea or vomiting, chestpain, or any unexpected problems, contact your Primary Care Provider. Call [facility] ([phone]) or report to the closest Emergency Room. Call 911 if necessary. 06/18/[id number] <Electronically signed by Jennifer MAJOR> Cosigner Signature (if applicable): 06/[id number] <Electronically signed by Jay Hair MD> CC: Dr. Lilly Fletcher MD ~ Signed [facility] Work Phone: Evaluation note Note Date & Type Note Facility Evaluation note Diagnosis Onset Date Atherosclerotic heart diseas e of [place] coronary artery without angina pectoris chronic Essential (primary) hypertension chronic Hyperlipidemia chronic [facility] Work Phone: Evaluation note Note Date & Type Note Facility Evaluation note No assessment information availa ble [facility] Work Phone: Evaluation note Note Date & Type Note Facility Evaluation note Diagnosis Onset Date ANTHONY (dyspnea on exertion) ac wiyot Palpitations acute Atherosclerotic heart diseas e of [place] coronary artery without angina pectoris chronic Essential (primary) hypertension chronic Hyperlipidemia chronic [facility] Work Phone: Evaluation note Note Date & Type Note Facility Evaluation note Diagnosis Onset Date Atherosclerotic heart diseas e of [place] coronary artery without angina pectoris chronic Essential (primary) hypertension chronic Hyperlipidemia chronic Cystitis acute [facility] Work Phone: Hospital Discharge instructions Note Date & Type Note Facility Hospital Discharge instructions Additional Instructions Your work up today showed no sign of heart attack. I think your chest pain is from GERD or acid reflux. Continue your home medication and I prescribed Carafate to take before each meal and at bedtime. Please follow-up with your primary care doctor. [facility] Work Phone: Hospital Discharge instructions Note Date & Type Note Facility Hospital Discharge instructions Additional Instructions Follow-up with your comic book designer to address your low blood pressure. Keep a daily log. Ice and take Tylenol as needed. If symptoms worsen come back to the ER. [facility] Work Phone: Reason for referral (narrative) Note Date & Type Note Facility Reason for referral (narrative) No reason for referral information available [facility] Work Phone: Chief Complaint and Reason for Visit Chief Complaint 6 M FU CAD - ANGIOPLASTY 2016 CAD - ANGIOPLASTY 2016 INT LABS Reason for Visit Atherosclerotic hear t disease of [place] coronary artery without angina pectoris Essential (primary) hypertension Hyperlipidemia Chief Complaint chest pain Chief Complaint chest pain 6 M FU PALPITATIONS Reason for Visit ANTHONY (dyspnea on exer tion) Palpitations Atherosclerotic heart disease of [place] coronary artery without angina pectoris Essential (primary) hypertension Hyperlipidemia Chief Complaint chest pain 6 M FU PALPITATIONS ANTHONY Reason for Visit ANTHONY (dyspnea on exer tion) Palpitations Atherosclerotic heart disease of [place] coronary artery without angina pectoris Essential (primary) hypertension Hyperlipidemia Chief Complaint chest pain 6 M FU PALPITATIONS ANTHONY EORDERS Reason for Visit ANTHONY (dyspnea on exer tion) Palpitations Atherosclerotic heart disease of [place] coronary artery without angina pectoris Essential (primary) hypertension Hyperlipidemia Chief Complaint 6 M FU Reason for Visit Atherosclerotic hear t disease of [place] coronary artery without angina pectoris Essential (primary) hypertension Hyperlipidemia Chief Complaint 6 M FU CONCERN FOR UTI Reason for Visit Atherosclerotic hear t disease of [place] coronary artery without angina pectoris Essential (primary) hypertension Hyperlipidemia Cystitis Chief Complaint Admit Date fall June 18, 2024 8:3 3pm Family History No Family History Records Found Relationship Condition Age at Onset Recorded Date/T oli father Coronary artery disease Unknown mother Congestive heart failure Unknown sister Hypertension Unknown Advance Directives No Advanced Directives Records Found Advance Directive Response Recorded Date/ Time Advance Directives Yes October 25, 2015 5:48pm Living Will No August 03, 2020 1 :39pm Power of Negative Developer No August 03, 2020 1:39pm Advance Directive Response Recorded Date/ Time Advance Directives Yes October 25, 2015 5:48pm Living Will Yes October 12 2 2:43pm Power of Negative Developer Yes October 12 022 2:43pm Name of Medical Power of Negative Developer daughter October 12, 2021 2:43pm Advance Directive Response Recorded Date/ Time Name of Medical Power of Negative Developer daughter October 12, 2021 2:43pm Advance Directives Yes October 25, 2015 5:48pm Living Will Yes October 12 2 2:43pm Power of Negative Developer Yes October 12 022 2:43pm Advance Directive Response Recorded Date/ Time Name of Medical Power of Negative Developer daughter October 12, 2021 1:43pm Advance Directives Yes October 25, 2015 4:48pm Living Will Yes October 12 2 1:43pm Power of Negative Developer Yes October 12 022 1:43pm Advance Directive Response Recorded Date/ Time Advance Directives Yes October 25, 2015 4:48pm Living Will Yes October 12 2 1:43pm Power of Negative Developer Yes October 12, 022 1:43pm Advance Directive Response Recorded Date/ Time Living Will Yes June 18, 2024 8:38pm Do you have a Healthcare Power of Negative Developer? Yes June 18, 2024 8:38pm Name of Medical Power of Negative Developer Cassandra June 18, 2024 8:38pm Advance Directives Yes October 25, 2015 5:48pm Summary Purpose Additional Source Comments Goals (unrecognized section and content) Goals may be documented in a n alternate sectionGoals may be documented in an alternate sectionGoals may be documented in an alternate sectionGoals may be documented in an alternate sectionGoals may be documented in an alternate sectionGoals may be documented in an alternate sectionGoals may be documented in an alternate sectionGoals may be documented in an alternate sectionGoals may be documented in an alternate section Care Teams (unrecognized sec tion and content) Team Status: Active Member Role Status Dates Dr. Lilly Fletcher MD Family Provider Active Dr. Lilly Fletcher MD Primary Care Provider Active Team Status: Inactive Member Role Status Dates Dr. Lilly Fletcher MD Primary Care Provider, Referrin g Provider Active Ginger Grace FRETTED STRING INSTRUMENT REPAIRER, FRETTED STRING INSTRUMENT REPAIRER-C Attending Provider Active Team Status: Inactive Member Role Status Dates Dr. Lilly Fletcher MD Primary Care Provider Active Ginger Grace FRETTED STRING INSTRUMENT REPAIRER, FRETTED STRING INSTRUMENT REPAIRER-C Attending Provider Active Team Status: Inactive Member Role Status Dates Dr. Lilly Fletcher MD Primary Care Provider, Referrin g Provider Active PEDRITO Gonzalez Attending Provider Active Team Status: Inactive Member Role Status Dates Dr. Lilly Fletcher MD Primary Care Provider Active PEDRITO Gonzalez Attending Provider Active Team Status: Active Member Role Status Dates Dr. Lilly Fletcher MD Primary Care Provider Active Team Status: Inactive Member Role Status Dates Dr. Lilly Fletcher MD Primary Care Provider Active Start: June 18, 2024 End: June 18, 2024 Dr. Jay Hair MD Referring Provider Active S tart: June 18, 2024 End: June 18, 2024 Dr. Jay Hair MD Emergency Provider Active S tart: June 18, 2024 End: June 18, 2024 INFORMATION SOURCE (unrecogn ized section and content) DATE CREATED AUTHOR 07/09/2024 [facility] FOR RECORDS PERTAINING TO PATIENTS WHO ARE OR HAVE BEEN ENROLLED IN A CHEMICAL DEPENDENCY/SUBSTANCEABUSE PROGRAM, SOME INFORMATION MAY BE OMITTED. This clinical summary was aggregated from multiple sources. Caution should be exercised in using it in the provision of clinical care. This summary normalizes information from multiple sources, and as a consequence, information in this document may materially change the coding, format and clinical context of patient data. In addition, data may be omitted in some cases. CLINICAL DECISIONS SHOULD BE BASED ON THE PRIMARY CLINICAL RECORDS. [facility]. provides no warranty or guarantee of the accuracy or completeness of information in this document.
[2024-08-02 04:48] VITALS: BP 131/71; PULSE 69; RESP 18; TEMP 36.6; O2SAT 94
--- NOTE | 2024-08-02 04:55 | RAD_ITS ---
PROCEDURE: CHEST 1 VIEW (PORTABLE) 08/02/2024 REASON FOR EXAM: DIFFUSE WEAKNESS TECHNIQUE: Frontal view of the chest. COMPARISON: None. FINDINGS: Mild bilateral basilar atelectatic pulmonary changes. There is no demonstrated pleural abnormality. Enlarged cardiac silhouette. Normal mediastinum and mindy. Normal visualized pulmonary arteries. Atheromatous plaques of the visualized aortic arch and descending thoracic aorta. Diffuse spondylosis of the visualized thoracic spine. Normal visualized ribs, clavicles. Degenerative joint disease. There is no demonstrated abnormality of the visualized soft tissue structures of the upper abdomen. RAD/Chest 1 View (Portable) IMPRESSION: Mild bilateral basilar atelectatic pulmonary changes. [facility]
[2024-08-02 05:00] VITALS: BP 141/77; PULSE 63; RESP 18; TEMP 36.6; O2SAT 97
[2024-08-02 05:18] LABS: ALB/GLOB Ratio 1.2 RATIO (0.9-2.4); AST(SGOT) 17 U/L (<=31); Alanine Aminotransfer ALT/SGPT 13 U/L (<=34); Albumin, Serum 3.6 g/dL (3.4-4.8); Alkaline Phosphatase 107 U/L (35-104); Anion Gap 10 (5-15); BUN 23 mg/dL (4-19); BUN/Creat Ratio 38.1 RATIO (10-20); Calcium,Total 10.5 mg/dL (7.6-11.0); Carbon Dioxide 26.4 mmol/L (21.0-32.0); Chloride 105 mmol/L (98-108); EST Glomerular Filtration Rate 91 (>60); Estimated Creatinine Clearance 58.03 ml/min (50-250); Globulin 2.9 g/dL (2.2-4.2); Glucose 117 mg/dL (70-99); Potassium 3.8 mmol/L (3.3-5.1); Protein, Total 6.5 g/dL (5.9-8.4); Sodium Level 142 mmol/L (133-145); Total Bilirubin 0.61 mg/dL (0.00-1.30); Troponin T High Sensitivity 18 ng/L (<=14)
[2024-08-02 05:32] LABS: Lactic Acid 1.2 mmol/L (0.0-2.0)
[2024-08-02 06:00] VITALS: BP 137/112; PULSE 72; RESP 18; TEMP 36.6; O2SAT 98
[2024-08-02 06:14] LABS: Mucous, Urine 0 SEEN /hpf (<or=2+); Red Blood Cells-Urine 0 SEEN /hpf (0-5)
[2024-08-02 06:16] LABS: Color, Urine Yellow (Yellow); Glucose, Dipstick Normal (Normal); Ketone-Dipstick Negative (Negative); Leukocyte Esterase-Dipstick Negative /ul (Negative); Nitrite-Dipstick Negative (Negative); Occult Blood-Urine Negative /ul (Negative); Protein-Dipstick 30 mg/dl (Negative); Urine Bilirubin Dipstick Negative (Negative); Urine Clarity Sl. Cloudy (Clear); Urine Urobilinogen Normal (Normal)
[2024-08-02 06:23] LABS: Bacteria RARE /hpf (None Seen); Squamous Epithelial Cells - UA 0-5 SEEN /hpf (5-10); White Blood Cells 0-5 SEEN /hpf (0-5)
[2024-08-02 06:53] VITALS: BP 140/62; PULSE 67; RESP 18; TEMP 36.6; O2SAT 95
== END 2024-08-02 07:00 | disposition home or self-care (01) ==
PROVIDERS: Emergency Provider Emergency Medicine; PCP Family Medicine; Visit Provider Emergency Medicine
DX: R53.1 Weakness (principal); E66.01 Morbid (severe) obesity due to excess calories; Z68.41 Body mass index [BMI] 40.0-44.9, adult; R42 Dizziness and giddiness; I25.10 Atherosclerotic heart disease of native coronary artery without angina pectoris; I10 Essential (primary) hypertension; I25.2 Old myocardial infarction; E78.5 Hyperlipidemia, unspecified; Z95.5 Presence of coronary angioplasty implant and graft; Z79.82 Long term (current) use of aspirin; Z79.899 Other long term (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
CPT/HCPCS: 70450; 71045; 80053; 81001; 83605; 84484; 85025; 93005; 96360; 96361; 99285; A4216

== ENCOUNTER 2024-09-09 20:05 | Emergency (ER) | payer MEDICARE, SELFPAY ==
[2024-09-09] VITALS (7 sets, daily range): BP systolic 139–163; BP diastolic 70–82; PULSE 56–64; RESP 18–20; TEMP 36.6–36.8; O2SAT 94–98; BMI 43.7
--- NOTE | 2024-09-09 20:16 | EDS_ITS ---
HPI History of Present Illness Chief Complaint: Chest Pain Informant: patient Onset/Context/Timing Onset: Hours (6) Activity at onset: gradual Timing: Continuous Location: Substernal Worsened By: Exertion Relieved By: NTG Associated Symptoms: Positive for Dyspnea, Lightheadedness and Palpitations; Negative for Nausea, Vomiting, Diaphoresis, Cough, Fever or Acid Reflux Narrative Narrative: Patient presents with chest pain that began tonight. Patient states it began a pproximately 6 hours prior to arrival. Patient states it came on gradually. Patient states it has been constant. Patient states it became worse after she walked across the room and back. Patient states she took a Prilosec at home which did not help. Patient states she took sublingual nitroglycerin at home which helped. Patient called EMS. EMS gave the patient aspirin and nitroglycerin. Patient states her pain is better upon arrival to the emergency department. Patient admits to some slight shortness of breath and lightheadedness. Patient also admits to some palpitations. CVD Risk Factors: Positive for Hypertension; Negative for Diabetes, Hypercholesterolemia, Family History 1' </=55 or Smoking PE Risk Factors: Negative for Recent Travel/Surgery, Recent Immobilization, Prior DVT or PE, Cancer or OCP + Smoking + >/=35 [facility] Medical History Myocardial infarction Obesity Essential (primary) hypertension Atherosclerotic heart disease of [place] coronary artery without angina pectoris Hyperlipidemia GERD (gastroesophageal reflux disease) Osteoarthritis Morbid obesity with BMI of 40.0-44.9, adult Home Medications ?Medication ?Instructions ?Recorded ?Last Taken ?Type aspirin 81 mg chewable tablet 81 mg PO QHS 10/25/15 History nitroglycerin 0.4 mg sublingual 0.4 mg sublingual Q5M PRN Chest 08/10/23 Unknown Rx tablet Pain #25 tabs atorvastatin 40 mg tablet 40 mg PO QHS #90 tabs Unknown Rx omeprazole 20 mg capsule,delayed 20 mg PO DAILY #90 ca ps 08/01/24 Unknown Rx release carvedilol 25 mg tablet 25 mg PO BID Dose has been 0 08/15/24 Unknown Rx increased #180 tabs lisinopril 20 mg tablet 20 mg PO QHS #90 tabs Unknown Rx meloxicam 15 mg tablet 15 mg PO DAILY 09/09/24 Unkn own History Allergy/AdvReac Type Severity Reaction Status Date / Time hydrochlorothiazide AdvReac Intermediate Constipatio Verified 09/09/24 20:05 n Family History Father CAD (coronary artery disease) Mother CHF (congestive heart failure) Sister Hypertension Surgical History History of cholecystectomy History of left heart catheterization (06/04/08) History of coronary angioplasty (09/20/07) History of laparoscopic cholecystectomy History of total hysterectomy Social History Smoking Status: Never smoker alcohol intake: never substance use type: does not use ROS ROS ED Constitutional Constitutional ED: Denies chills or fever(s) Eyes Eyes: Denies blurry vision or change in vision ENT ENT ED: Denies rhinorrhea or sore throat Cardiovascular Cardiovascular: Denies chest pain or palpitations Respiratory/Chest Respiratory/Chest: Denies cough or dyspnea Gastrointestinal Gastrointestinal: Denies nausea or vomiting Genitourinary Genitourinary ED: Denies dysuria or hematuria Musculoskeletal Musculoskeletal: Denies back pain or neck pain Integumentary Denies abscess or rash Neurologic Neurologic: Denies headache(s) or weakness Allergic/Immunologic Allergic/Immunologic ED: Denies mouth swelling or urticaria EXAM Physical Exam Const Vital Signs: 09/09/24 20:06 09/09/24 20:09 09/09/24 20:26 Temperature 97.9 F Temperature Source Axillary Pulse Rate 64 Respiratory Rate 18 Respiratory Effort Normal Non-Labored Respiratory Pattern Normal Blood Pressure Blood Pressure Mean Pulse Ox 94 98 Oxygen Delivery Method Room Air Room Air 09/09/24 20:52 09/09/24 21:05 09/09/24 22:00 Temperature Temperature Source Pulse Rate 57 L 58 L 56 L Respiratory Rate 20 H 18 Respiratory Effort Respiratory Pattern Blood Pressure 139/82 H 159/70 H 162/72 H Blood Pressure Mean 99 102 Pulse Ox 94 95 Oxygen Delivery Method Room Air Room Air Positive well nourished and well developed General Appearance ED: well developed and NAD HEENT Reports moist mucous membranes Neck supple and no JVD Resp normal respiratory effort and clear to auscultation bilaterally Cardio regular rate and regular rhythm GI soft to palpation, non-tender and non-distended Neuro oriented x3, CN's II-XII intact bilaterally and no sensory deficits noted Sensorium / Orientation: awake and alert Motor Exam: strength 5/5 throughout Psych mental status grossly normal Heart Score History: Slightly/Non-Suspicious ECG: Normal Age: >/= 65 years Risk Factors: 1 or 2 Risk Factors Troponin: </= Normal Limit Score: 3 MDM MDM MDM Narrative Medical decision making narrative: Differential diagnosis includes cardiac dysrhythmia, cardiac ischemia, congestive heart failure, pneumonia, bronchitis, gastroesophageal reflux disease, anxiety, and electrolyte abnormality. EKG will be obtained to assess for cardiac dysrhythmia and cardiac ischemia. Chest x-ray will be obtained to assess for pneumonia and bronchitis. CBC will be obtained to assess for leukocytosis and anemia. Basic metabolic profile will be obtained to assess for electrolyte abnormality and renal function. High-sensitivity troponin will be obtained to assess for cardiac ischemia. 2-hour repeat high-sensitivity troponin will be obtained to assess for ongoing cardiac ischemia. BNP will be obtained to assess for congestive heart failure. Lab Data Attestation: I reviewed the patient's lab results. Lab results narrative: CBC was reviewed and was within normal limits. Basic metabolic profile was reviewed. Glucose was slightly elevated at 120. The remainder is within normal limits. Initial high-sensitivity troponin was reviewed and was normal at 14. BNP was reviewed and was normal at 468. Labs: Laboratory Results - last 24 hr 09/09/24 20:11 WBC 6.5 RBC 4.50 Hgb 13.7 Hct 41.4 MCV 92.0 MCH 30.4 MCHC 33.1 RDW Std Deviation 42.3 RDW Coeff of Cory 12.5 Plt Count 228 MPV 9.8 Immature Gran % (Auto) 0.600 Neut % (Auto) 70.3 H Lymph % (Auto) 17.2 L [place] % (Auto) 10.2 H Eos % (Auto) 1.2 Baso % (Auto) 0.5 Absolute Neuts (auto) 4.6 Absolute Lymphs (auto) 1.11 Nucleated RBC % 0 Sodium 139 Potassium 4.6 Chloride 103 Carbon Dioxide 27.5 Anion Gap 8 BUN 19 Creatinine 0.55 L Estim Creat Clear Calc 58.92 Est GFR (MDRD) Non-Af 92 BUN/Creatinine Ratio 34.2 H Glucose 120 H Calcium 10.4 Troponin T High Sens 14 D NT pro BNP II 468 Radiography Chest X-Ray - ED: 1 View, Read by ED Physician, Read by Radiologist and No Acute Disease Diagnostic Testing: Clinical Impression(s) from Imaging Studies Chest X-Ray 09/09/24 20:30 IMPRESSION: No acute cardiopulmonary abnormality. Reading Location: [facility] Portable 1 view chest x-ray was obtained. On my independent interpretation, lung kirk are clear. There is normal cardiac silhouette. Bony thorax is normal. There is no acute process noted. Radiologist also interpreted the x- ray and agrees. EKG Initial EKG: Attestation: I personally reviewed and interpreted this EKG as follows: Interpretation: Sinus Rhythm (64) and No Acute Injury Pattern Comments: EKG was obtained. On my independent interpretation, it showed a normal sinus rhythm with a rate of 64. [place] interval, QRS interval, and QTc intervals were all normal. There is borderline left axis deviation at -18. There are no acute ST or T wave changes. Prior EKG tracings: available for review Prior: Unchanged (08/02/2024) Treatment and Re-Evaluation :: The patient was given aspirin by EMS. Patient was given nitroglycerin paste. Patient was advised of her findings. Patient has a HEART score of 3. Patient was advised that this is low risk for acute cardiac event. Care of the patient will be turned over the oncoming physician pending 2-hour repeat troponin. If this has a delta less than 6, I feel the patient can be discharged home. Patient was instructed to follow-up with her primary care physician in 5 to 7 days. Patient was instructed to return if worse in any way. Patient understood and was agreeable with plan. All questions were answered. Discharge Plan Triage Chief Complaint: Chest Pain ED Provider: Donovan Pierson Dx/Rx/DC Orders Clinical Impression: Chest pain, Essential (primary) hypertension Instructions: ED Chest Pain, Uncertain Cause Prescriptions: No Action nitroglycerin 0.4 mg tablet, sublingual 0.4 mg SUBLINGUAL Q5M PRN (Reason: Chest Pain) Qty: 25 2RF Patient Comments: chest pain carvedilol 25 mg tablet 25 mg PO BID Qty: 180 3RF Rx Instructions: must administer with a meal/food lisinopril 20 mg tablet 20 mg PO QHS Qty: 90 4RF aspirin 81 MG tablet,chewable 81 mg PO QHS Patient Comments: [facility] meloxicam 15 mg tablet 15 mg PO DAILY atorvastatin 40 mg tablet 40 mg PO QHS Qty: 90 3RF omeprazole 20 mg capsule,delayed release(DR/EC) 20 mg PO DAILY Qty: 90 3RF Primary Care Provider: Lilly Fletcher Referrals: Lilly Fletcher MD [Primary Care Provider] - Print Language: [place]i
--- NOTE | 2024-09-09 20:30 | RAD_ITS ---
PROCEDURE: CHEST 1 VIEW (PORTABLE) 09/09/2024 REASON FOR EXAM: CHEST PAIN TECHNIQUE: Frontal view of the chest. COMPARISON: Chest radiograph on 08/02/2024 FINDINGS: Hardware: There is a medical doctor md overlying the mediastinum, new from prior. Heart: Cardiac and mediastinal contours are stable. Aortic atherosclerosis. Lungs: No focal consolidation or significant pleural effusion. Bones: Degenerative changes are identified within the thoracic spine. Surgical clips in the right upper quadrant of the abdomen. RAD/Chest 1 View (Portable) IMPRESSION: No acute cardiopulmonary abnormality. Reading Location: [id number]
[2024-09-09 20:45] LABS: Hematocrit 41.4 % (37-47); Hemoglobin 13.7 g/dL (12.0-15.0); Immature Granulocytes Count 0.040 X10^3/uL (0.0-0.0); Mean Corp Hgb Conc 33.1 g/dL (32-36); Mean Corpuscular Volume 92.0 fL (81-99); Mean Platelet Vol. 9.8 fl (6.2-12.0); NRBC Flagged by Analyzer 0 % (0-5); Platelet Count 228 K/mm3 (150-450); RBC Distribution Width CV 12.5 % (11.6-14.6); RBC Distribution Width SD 42.3 fl (35.1-43.9); Red Blood Count 4.50 M/mm3 (4.2-5.4); White Blood Count 6.5 K/mm3 (4.4-11.0)
--- OUTSIDE RECORDS SUMMARY | 2024-09-09 20:51 | XMS RPT_ITS | CCD ---
Author Organization [facility] Care Team Providers Care Core Extruder Name Role Phone iKmber KELSEY, Vivien Quintana Unavailable Kale Ansari NP Unavailable DeFinis, Harumi Y Unavailable Unavailable DeFinis, Harumi Y Unavailable Unavailable DeFinis, Harumi Y Unavailable Unavailable DeFinis, Harumi Y Unavailable Unavailable DeFinis, Harumi Y Unavailable Unavailable DeFinis, Harumi Y Unavailable Unavailable MD Davis Cyril S Unavailable DeFinis, Harumi Y Unavailable Unavailable DeFinis, Harumi Y Unavailable Unavailable DeFinis, Harumi Y Unavailable Unavailable Coty MISSILE TECHNICIAN, Kale Kendall Unavailable Dr. Lilly Fletcher Primary Care Provider Dr. Lilly Fletcher Referring Provider Sanjay TORRES, MISSILE TECHNICIAN-C Ginger Attending Provider Sanjay TORRES, MISSILE TECHNICIAN-C Ginger Referring Provider Sanjay TORRES, MISSILE TECHNICIAN-C Ginger Other Provider Dr. Elie Davis Attending [...] Provider Dr. Lilly Fletcher Referring Provider Sanjay MISSILE TECHNICIAN, MISSILE TECHNICIAN-C Ginger Attending Provider PEDRITO Hay Attending Provider Dr. Lilly Fletcher MD Primary Care Provider Reginaldo OHARA, Dr. Thompson Referring Provider [phone] Reginaldo OHARA, Dr. Thompson Emergency Provider Reginaldo OHARA, Dr. Thompson Attending Provider [phone] Dr. Jaylen Jack DO Emergency Provider Guero ZHOU, Dr. York Attending Provider Dr. Lilly Fletcher MD Referring Provider Coty MISSILE TECHNICIAN-C, Kale Kendall Attending Provider Jolliff, Lilly S Primary Care Unavailable Sanjay MISSILE TECHNICIAN, Ginger Attending Unavailable Sanjay TORRES, Ginger Referring Unavailable Jay Hair Attending Unavailable Jay Hair Referring Unavailable Jolliff, Lilly S Primary Care Unavailable Jolliff, Lilly S Primary Care Unavailable Jaylen Jack Attending Unavailable Roof MISSILE TECHNICIAN, Kale H Attending Unavailable Jolliff, Lilly S Primary Care Unavailable Roof MISSILE TECHNICIAN, Kale H Referring Unavailable Elie Davis Attending Unavailable Jolliff, Lilly S Primary Care Unavailable Sanjay MISSILE TECHNICIAN, Ginger Attending Unavailable Jolliff, Lilly S Primary Care Unavailable Jolliff, Lilly S Referring Unavailable Roof MISSILE TECHNICIAN, Kale H Attending Unavailable Jolliff, Lilly S Primary Care Unavailable Roof MISSILE TECHNICIAN, Kale H Attending Unavailable Jolliff, Lilly S Referring Unavailable Jolliff, Lilly S Primary Care Unavailable Allergies Allergy Classification Reported Allergen(s) Allergy Type Date of Onset Reaction(s) Facility (8 sources) hydroCHLOROthiazide Drug Allergy 12-18-19 22 Drug-induced constipation with proper administration [facility] Comment on above: and urinary incontin ence (1 source) hydroCHLOROthiazide Drug Allergy 09-06-19 [facility] Repository Medications Current Medications Medication Drug Class(es) [...] tablet by mouth daily Enteric Coated ASPIRIN [id number] Polly Mustafa Start: 09-16-2010 take 1 tablet by diomedes th once daily ASPIRIN 81 MG TABS One tablet by mouth daily Enteric Coated ASPIRIN [id number] Polly Mustafa Start: 09-16-2010 take 1 tablet by diomedes th once daily ASPIRIN EC 81 MG TBEC One tablet by mouth daily ASPIRIN [id number] Nella Valerio potassium gluconate 2.5 meq oral tablet (20 sources) Start: 09-09-2018 End: 09-09-2018 take 1 [...] 25, 2015 12:00am September 01, 2017 11:14am atorvastatin 40 mg oral tablet (20 sources) HMG-CoA Reductase Inhibitor Start: 09-16-2010 End: 08-01-2024 take 1 tablet by mouth at bedtime Atorvastatin 40 mg tablet Discontinued 40 mg PO AT BEDTIME 90 November 10, 2022 10:31am August 10, 2023 10:01am carvedilol 25 mg oral tablet (20 sources) alpha-Adrenergic Sarmad, beta-Adrenergic Sarmad Start: 11-25-2021 End: 08-15-2024 take 1 tablet by mouth twice daily at mealtime Carvedilol 25 mg tablet Discontinued 25 mg PO TWICE A DAY 180 November 24, 2022 2:47pm August 10, 2023 10:01am Dose has been increased must administer with a meal/food Start: 10-31-2021 [...] Start: 09-24-2016 take 1 tablet by diomedes twice daily COREG 3.125 MG TABS One tablet by mouth twice daily CARVEDILOL [id number] Kale Coty TORRES Start: 09-24-2016 take 1 tablet by diomedes twice daily COREG 6.25 MG TABS One tablet by mouth twice daily CARVEDILOL [id number] [facility] Coty MISSILE TECHNICIAN cephalexin 500 mg oral capsule (5 sources) Cephalosporin Antibacterial Start: 03-25-2023 End: 04-04-2023 take 1 capsule by mouth every twelve hours Cephalexin 500 mg capsule Discontinued 500 mg PO Q12H 20 10 0 March 25, 2023 1:00am April 03, 2023 1:00am April 04, 2023 1:39am CLOBETASOL PROPIONATE (20 sources) Corticosteroid Start: 11-23-2015 End: 09-08-2016 TEMOVATE 0.05 % CREA as directed CLOBETASOL PROPIONATE [id number] Nella Valerio Start: 11-23-2015 End: 09-08-2016 TEMOVATE 0.05 % CREA as dire cted CLOBETASOL PROPIONATE [id number] Nella Valerio Start: 11-23-2015 TEMOVATE 0.05 % CREA as directed CLOBETASOL PROPIONATE [id number] Mary Prieto RN Start: 10-26-2015 End: 09-01-2017 apply 15 g topically twice daily Clobetasol-Emollient 15 GM cream Discontinued 1 NMA TOPICAL TWICE A DAY 1 October 26, 2015 12:00am September 01, 2017 11:15am furosemide 40 mg oral tablet (20 sources) Loop Diuretic Start: 08-31-2023 End: 08-15-2024 take 1 tablet by mouth once daily as needed Furosemide 40 mg tablet Discontinued 40 mg PO DAILY as needed for swelling or shortness of breath 90 August 04, 2024 3:45pm August 15, 2024 3:34pm Start: 08-10-2023 End: 08-31-2023 take 2 tablets by mouth once daily Furosemide (Lasix) 20 mg tablet Discontinued 40 mg PO DAILY 90 August 10, 2023 3:30pm August 31, 2023 1:33pm Start: 02-07-2022 End: 08-10-2023 take 1 tablet by mouth once daily Furosemide (Lasix) 20 mg tablet Discontinued 20 mg PO DAILY 90 January 15, 2023 1:39pm August 10, 2023 10:01am Start: 12-25-2021 End: 02-07-2022 take 2 tablets by mouth once daily, then take 1 tablet by mouth once daily Furosemide (Lasix) 20 mg tablet Discontinued 20 mg PO DAILY 33 3 December 25, 2021 12:00am February 07, 2022 11:29am Please take 2 tablets (40mg) daily x 3 days, and then 1 tablet (20mg) daily. hydroCHLOROthiazide 25 mg oral tablet (20 sources) Thiazide Diuretic Start: 09-15-2019 End: 08-15-2021 take 1 tablet by mouth once daily Hydrochlorothiazide 25 mg tablet Discontinued 25 mg PO DAILY 90 April 18, 2021 9:44am August 15, 2021 3:06pm Start: 03-10-2014 End: 09-12-2014 take 1 tablet by mouth once daily HYDROCHLOROTHIAZIDE 12.5 MG TABS One tablet by mouth daily HYDROCHLOROTHIAZIDE [id number] Vivien Haynes PA-C ipratropium (20 sources) Anticholinergic [...] Prieto RN Start: 10-26-2015 End: 09-01-2017 Ipratropium [place] 1 SPRAY spray,non-aerosol Discontinued 2 NMA NASAL THREE TIMES A DAY 2 0 October 26, 2015 11:11am September 01, 2017 11:15am Start: 10-26-2015 End: 09-01-2017 Ipratropium [place] Disconti nued 2 SPRAY NASAL THREE TIMES A DAY 2 October 26, 2015 10:11am September 01, 2017 10:15am isosorbide (20 sources) Start: 03-25-2011 End: 08-13-2011 take 1 tablet by mouth once daily IMDUR 30 MG [id number] One tablet by mouth daily ISOSORBIDE MONONITRATE [id number] Sofie Cornejo RN Start: 03-25-2011 take 1 tablet by diomedes th once daily IMDUR 30 MG [id number] One tablet by mouth daily ISOSORBIDE MONONITRATE [id number] Yolanda Larose RN lisinopril 20 mg oral tablet (20 sources) Angiotensin Converting Enzyme Inhibitor Start: 09-15-2019 End: 08-15-2024 take 1 tablet by mouth twice daily Lisinopril 20 mg tablet Discontinued 20 mg PO TWICE A DAY 180 February 09, 2024 12:02pm August 15, 2024 4:15pm Start: 09-03-2017 End: 09-15-2019 take 1 tablet by mouth once daily Lisinopril 20 mg tablet Discontinued 20 mg PO DAILY 90 September 09, 2019 12:34pm September 15, 2019 11:30am Start: 09-01-2017 End: 09-03-2017 take 1 tablet by mouth once daily Lisinopril (Zestril) 10 mg tablet Discontinued 10 mg PO daily September 01, 2017 12:00am September 03, 2017 10:50am Start: 10-26-2015 End: 09-01-2017 take 1 tablet by mouth once daily Lisinopril 5 MG tablet Discontinued 5 mg PO DAILY 30 0 October 26, 2015 12:00am September 01, 2017 11:14am Start: 09-16-2010 End: 06-04-2012 take 1 tablet by mouth once daily ZESTRIL 10 MG TABS One tablet by mouth daily LISINOPRIL [id number] Kale Ansari NP MULTIPLE VITAMIN (14 sources) Start: 11-23-2015 take 1 tablet by mouth once daily MULTIVITAMINS TABS One tablet by mouth daily MULTIPLE VITAMIN Mary Prieto RN Multivitamin With Folic Acid (8 [...] Multivitamin With Folic Acid 1 TABLET tablet (4 sources) Start: 10-25-2015 End: 09-09-2018 take 1 tablet by mouth once daily Multivitamin With Folic Acid 1 TABLET tablet Discontinued 1 {tbl} PO DAILY October 25, 2015 12:00am September 09, 2018 10:48am niacin 500 mg oral tablet (20 sources) Nicotinic Acid Start: 09-16-2010 End: 09-12-2014 take 1 tablet by mouth once daily NIACIN 500 MG TABS One tablet by mouth daily NIACIN [id number] Susanne Jordan RN Start: 09-16-2010 End: 03-04-2012 take 1 tablet by mouth at bedtime NIASPAN 500 MG CR-TABS 1 tablet by mouth at bedtime with low fat snack NIACIN (ANTIHYPERLIPIDEMIC) [id number] Susanne Jordan RN nitroglycerin 0.4 mg sublingual tablet (20 sources) Nitrate Vasodilator Start: 10-26-2015 End: 08-10-2023 Nitroglycerin 0.4 mg tablet, sublingual Discontinued 0.4 mg SL Q5M as needed for Chest Pain 26 04April 18, 2021 9:44am August 10, 2023 10:01am Start: 10-26-2015 End: 04-18-2021 Nitroglycerin Active 0.4 MG SL Q5M April 18, 2021 8:44am Start: 02-27-2012 NITROSTAT 0.4 MG SUBL 1 tablet under tongue every 5 min up to 3 X NITROGLYCERIN [id number] Elie Davis MD Start: 09-16-2010 NITROGLYCERIN 0.4 MG/HR PT24 1 tablet under tongue every 5 min up to 3 X NITROGLYCERIN [id number] Polly Musatfa omeprazole 20 mg delayed release oral capsule (20 sources) Proton Pump Inhibitor Start: 10-25-2015 End: 08-01-2024 take 1 capsule by mouth once daily Omeprazole 20 mg capsule,delayed release(DR/EC) Discontinued 20 mg PO DAILY 90 August 12, 2023 10:17am August 01, 2024 5:29pm Start: 03-04-2011 take 1 capsule by [facility] twice daily PRILOSEC 20 MG CPDR One capsule by mouth twice daily OMEPRAZOLE [id number] Elie Davis MD Start: 03-04-2011 take 1 capsule by mo ut twice daily PRILOSEC 20 MG CPDR One capsule by mouth twice daily OMEPRAZOLE [id number] Elie Davis MD Start: 09-16-2010 take 2 tablets by [facility] twice daily PRILOSEC 20 MG CPDR Two tablets by mouth twice daily OMEPRAZOLE [id number] Polly Mustafa Start: 09-16-2010 take 2 tablets by [facility] twice daily PRILOSEC 20 MG CPDR Two tablets by mouth twice daily OMEPRAZOLE [id number] Polly Mustafa sertraline 25 mg oral tablet (20 sources) Serotonin Reuptake Inhibitor Start: 10-26-2015 End: 09-01-2017 take 1 tablet by mouth once daily Sertraline 25 MG tablet Discontinued 25 mg PO DAILY 30 0 October 26, 2015 12:00am September 01, 2017 11:15am sucralfate 1000 mg oral tablet (11 sources) Aluminum Complex Start: 10-12-2021 End: 07-02-2022 take 1 tablet by mouth four times daily at bedtime Sucralfate (Carafate) 1 gram tablet Discontinued 1 g PO 4 TIMES DAILY 56 14 0 October 12, 2021 12:00am July 02, 2022 11:36am 1 g orally before each meal and at bedtime Problems Active Problems Problem Classification Problem Date Documented Date Episodic/Chronic Cardiac dysrhythmias (20 sources) Palpitations; Translations: [Palpitations] Episodic Conditions associated with dizziness or vertigo (7 sources) Dizziness; Translations: [Dizziness and giddiness] Onset: 08-15-2024 08-15-2024 Episodic Coronary atherosclerosis and other heart disease (20 sources) Coronary atherosclerosis; Translations: [Coronary arteriosclerosis] Onset: 09-16-2010 09-16-2010 Chronic Disorders of lipid metabolism (20 sources) Hyperlipidemia; Translations: [Hyperlipidemia, unspecified] Onset: 03-25-2011 03-25-2011 Chronic E Codes: Fall (4 sources) Fall; Translations: [Unspecified fall, initial encounter] 06-18-2024 Episodic Esophageal disorders (20 sources) Gastroesophageal reflux disease; Translations: [Gastro-esophageal reflux disease without esophagitis] 10-31-2021 Chronic Essential hypertension (15 sources) Essential hypertension; Translations: [Essential (primary) hypertension] 09-08-2018 Chronic Heart valve disorders (20 sources) Systolic murmur; Translations: [Cardiac murmur, unspecified] Onset: 12-07-2012 12-07-2012 Episodic Hypertension with complications and secondary hypertension (20 sources) Essential (primary) hypertension; Translations: [Unspecified essential hypertension] Onset: 03-28-2015 03-28-2015 Chronic Malaise and fatigue (8 sources) Fatigue; Translations: [Other fatigue] Onset: 08-08-2024 07-24-2023 Episodic Nonspecific chest pain (20 sources) Precordial pain; Translations: [Chest pain] Onset: 09-16-2010 09-16-2010 Episodic Occlusion or stenosis of precerebral arteries (2 sources) Occlusion and stenosis of left carotid artery; Translations: [Occlusion and stenosis of left carotid artery] Onset: 08-15-2024 Chronic Other injuries and conditions due to external causes (1 source) Encounter for examination and observation following other accident; Translations: [Encounter for examination and observation following other accident] Onset: 06-22-2024 Episodic Other lower respiratory disease (13 sources) Dyspnea on exertion; Translations: [Other forms of dyspnea] 10-31-2021 Episodic Other nutritional; endocrine; and metabolic disorders (12 sources) Body mass index 40+ - severely obese; Translations: [Morbid (severe) obesity due to excess calories] 09-08-2018 Chronic Unclassified (4 sources) Long-term drug therapy; Translations: [Other terminal supervisor (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] Onset: 09-16-2010 09-16-2010 Urinary tract infections (6 sources) Cystitis; Translations: [Cystitis, unspecified without hematuria] 03-26-2023 Episodic Past or Other Problems Problem Classification Problem Date Documented Da te Episodic/Chronic Coronary atherosclerosis and other heart disease (20 sources) Coronary angioplasty status; Translations: [Past history of procedure] Onset: 09-20-2007 09-16-2010 Episodic Comment on above: POBA-OM2 Other aftercare (10 sources) Other terminal supervisor (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; Translations: [Other terminal supervisor (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] Onset: 09-16-2010 09-16-2010 Episodic [...] diseases of the circulatory system] 03-01-2014 Episodic Unclassified (4 sources) No traumatic injury 06-18-2024 Results Test Name Value Interpretation Reference Range Facility Cardiology Visit Reporton Cardiology Visit Report [facility] [address] [place] [address] OFFICE VISIT Date of Service: 09/05/24 MR#: [id number] Acct: [id number] Name: AYAN CARRILLO Rep #: [id number] : 1945 Provider: MONICA valerio Age/Sex: 79/F Location: [facility] Status: Signed HPI HPI History of Present Illness Details: AYAN CARRILLO, is a 79 F who presents to the office today [...] of 60%, with stage I diastolic dysfunction. She presents to the office in a wheel chair, she does use a cane to help with ambulation. She acknowledges chest discomfort that she attributes to acid reflux and wearing bra. She acknowledges occasional palpitations she describes as fast sensation. She acknowledges bilateral lower extreme edema. She acknowledges shortness of breath with activity. She denies shortness of breath at rest, cough, orthopnea, or PND. She acknowledges lightheadedness in the morning. She denies dizziness, near-syncope, or syncope. She acknowledges fatigue and weakness. Intake Vital Signs 08/15/24 15:31 09/05/24 16:01 Height 4 ft 11 in 4 ft 11 in Weight: 205 lb 208 lb BMI 41.3 42.0 BP 142/66 H 142/82 H Blood Pressure Location Lt brachial Rt brachial Position Sitting Sitting Respiration 20 H 18 Pulse 74 66 Pulse Source Monitor NIBP Intake Visit Reasons: 4-6 WK FU Alliance Director Required: No Accompanied by: Anughter Is patient in pain?: No Allergies hydrochlorothiazide Adverse Reaction (Intermediate, Verified 09/05/24 16:07) Constipation Medications ???Medication ???Instructions ???Recorded ???Confirmed ???Type aspirin 81 mg chewable tablet 81 mg PO QHS 10/25/15 09/05/24 His tory potassium gluconate 595 mg (99 mg) 595 mg PO DAILY PRN for low leve ls 09/09/18 09/05/24 History tablet nitroglycerin 0.4 mg sublingual 0.4 mg sublingual Q5M PRN Chest 09/05/24 Rx tablet Pain #25 tabs atorvastatin 40 mg tablet 40 mg PO QHS #90 tabs 08/01/2409/23 Rx omeprazole 20 mg capsule,delayed 20 mg PO DAILY #90 caps 08/01/24 0 09/05/24 Rx release carvedilol 25 mg tablet 25 mg PO BID Dose has been 5 09/05/24 Rx increased #180 tabs lisinopril 20 mg tablet 20 mg PO QHS #90 tabs 08/15/2409/23 Rx Ejection fraction %: 65 Have you fallen in the past year?: Yes PFSH Medical History Myocardial infarction Obesity Essential (primary) hypertension Atherosclerotic heart disease of [place] coronary artery without angina pectoris Hyperlipidemia GERD (gastroesophageal reflux disease) Osteoarthritis Morbid obesity with BMI of 40.0-44.9, adult Surgical History History of cholecystectomy History of left heart catheterization (06/04/08) History of coronary angioplasty (09/20/07) History of laparoscopic cholecystectomy History of total hysterectomy Family History Father CAD (coronary artery disease) Mother CHF (congestive heart failure) Sister Hypertension Social History Smoking Status: Never smoker alcohol intake: never substance use type: does not use ROS Const Const: Positive for fatigue and weakness Eyes Eyes: Negative for change in vision ENT ENT: Positive for balance problems; Negative for dizziness Cardio Chest Pain: Yes (Relates to heartburn and wearing a bra) Palpitations: Yes (Occasionally) feels like its: fast Edema: Bilateral Resp Respiratory: Positive for SOB with activity; Negative for SOB at rest or SOB orthopnea SOB lying down GI GI: Negative nausea or heartburn Musc Musc: Positive for balance problems Neuro Neuro: Positive for lightheadedness (1st thing in the morning) and weakness; Negative for dizziness, near syncope or syncope Endo Endo: Positive for fatigue Cardiology Exam Const Appearance: cooperative and no acute distress Nutritional Appearance: obese Orientation: alert and oriented x3 Head Head: normal to inspection Ears: hearing grossly normal bilaterally Nose: external nose normal Face and Sinus: face symmetric Mouth: moist mucous membranes Eyes General: appearance normal, both eyes and all related structures Eyelids: eyelids normal Conjunctivae: conjunctivae normal Pupils: PERRL EOM: EOM intact bilaterally Neck Neck: normal visual inspection (more content not included)... Normal [facility] Cardiology Visit Reporton Cardiology Visit Report [facility] [address] [place] [address] OFFICE VISIT Date of Service: 08/15/24 MR#: [id number] Acct: [id number] Name: AYAN CARRILLO Rep #: [id number] : 1945 Provider: MONICA valerio Age/Sex: 79/F Location: [facility] Status: Signed HPI HPI History of Present Illness Details: AYNA CARRILLO, is a 79 F who presents to the office today [...] of 60%, with stage I diastolic dysfunction. She presents to the office in a wheel chair, she does use a cane to help with ambulation. She denies chest, arm, jaw, or neck discomfort. She denies palpitations. She denies bilateral lower extremity edema. She denies claudication. She continues shortness of breath with activity. She denies shortness of breath at rest, orthopnea, or PND. She denies chronic cough. She denies significant, sudden weight gain. She denies lightheadedness, dizziness, and near-syncope. She denies or syncope. She denies blood in urine, blood in stool, or epistaxis. He denies fever with chills. She denies myalgia. She denies fatigue. Her exercise level has remained stable. Intake Vital Signs 08/10/23 09:49 06/18/24 20:34 08/02/24 03:44 08/15/24 15:31 Height 4 ft 11 in 4 ft 11 in 4 ft 11 in 4 ft 11 in Weight: 205 lb BMI 41.3 BP 142/66 H Blood Pressure Location Lt brachial Position Sitting Respiration 20 H Pulse 74 Pulse Source Monitor Intake Visit Reasons: 6 M FU Alliance Director Required: No Accompanied by: Granddaughter Is patient in pain?: No Allergies hydrochlorothiazide Adverse Reaction (Intermediate, Verified 08/15/24 15:31) Constipation Medications ???Medication ???Instructions ???Recorded ???Confirmed ???Type aspirin 81 mg chewable tablet 81 mg PO QHS 10/25/15 08/15/24 His tory potassium gluconate 595 mg (99 mg) 595 mg PO DAILY PRN for low leve ls 09/09/18 08/15/24 History tablet nitroglycerin 0.4 mg sublingual 0.4 mg sublingual Q5M PRN Chest 08/15/24 Rx tablet Pain #25 tabs atorvastatin 40 mg tablet 40 mg PO QHS #90 tabs 08/01/24 Rx omeprazole 20 mg capsule,delayed 20 mg PO DAILY #90 caps 08/01/24 0 08/15/24 Rx release carvedilol 25 mg tablet 25 mg PO BID Dose has been 5 08/15/24 Rx increased #180 tabs lisinopril 20 mg tablet 20 mg PO QHS #90 tabs 08/15/24 Rx Have you fallen in the past year?: Yes (x4. when meds was doubled, got dizzy, legs go out) PFSH Medical History Myocardial infarction Obesity Essential (primary) hypertension Atherosclerotic heart disease of [place] coronary artery without angina pectoris Hyperlipidemia GERD (gastroesophageal reflux disease) Osteoarthritis Morbid obesity with BMI of 40.0-44.9, adult Surgical History History of cholecystectomy History of left heart catheterization (06/04/08) History of coronary angioplasty (09/20/07) History of laparoscopic cholecystectomy History of total hysterectomy Family History Father CAD (coronary artery disease) Mother CHF (congestive heart failure) Sister Hypertension Social History Smoking Status: Never smoker alcohol intake: never substance use type: does not use ROS Const Const: Positive for weakness and daytime sleepiness; Negative for fatigue Eyes Eyes: Negative for change in vision ENT ENT: Positive for dizziness and balance problems Cardio Chest Pain: No Palpitations: No Edema: None Muscle aches with walking: None Resp Respiratory: Positive for SOB with activity; Negative for SOB at rest or SOB orthopnea SOB lying down GI GI: Negative nausea or heartburn : Negative for hematuria or frequent nighttime urination/ nocturia Musc Musc: Positive for balance problems Skin Skin: Negative non-healing lesions or rash Neuro Neuro: Positive for dizziness, lightheadedness, near syncope and weakness; Negative for syncope Endo Endo: Negative for fatigue Allergy Allergy/Immunology: Negative for rash Cardiology Exam Const Appearance: cooperative and no acute distress Nutritional Appearance: obese Orientation: alert and oriented x3 Head Head: normal to inspection Ears: hearing grossly normal bilaterally Nose: external (more content not included)... Normal [facility] 12 Lead EKGon 08-02-2024 12 Lead EKG [facility] [address] [place] [address] 12 Lead EKG 08/02/24 0504 MR#: [id number] Acct: [id number] Name: AYAN CARRILLO Rep #: [id number] : 1945 79 From: Lupe Rodriguez MD Attending Dr: Status: DEP ER Ordering Dr: Jaylen Jack DO Date: 08/02/24 Location: ED Sex: F C Admitted: Test Reason : WEAKNESS Blood Pressure : */* mmHG Vent. Rate : 65 BPM Atrial Rate : 65 BPM P-R Int : 106 ms QRS Dur : 104 ms QT Int : 420 ms P-R-T Axes : 15 -21 17 degrees QTcB Int : 436 ms Sinus rhythm with short NV Septal infarct , age undetermined Abnormal ECG Confirmed by DARIEL OHARA, ANGÉLICA ([id number]), copy editor MU CERVANTES ([id number]) on 08/08/2024 7:03:53 AM Referred By: Confirmed By: ANGÉLICA RODRIGUEZ MD 08/08/24 0703 Date Lupe Rodriguez MD CC: Dr. Lilly Fletcher MD; Dr. Jaylen Jack, DO Signed Normal [facility] Absolute lymphocyte countOrd ered By: Jaylen Jack on 08-02-2024 Lymphocytes Auto (Unsp spec) [#/Vol] 1.11 10*3/uL 0.83-4.51 [facility] Absolute neutrophil countOrd ered By: Jaylen Jack on 08-02-2024 Neutrophils (Bld) [#/Vol] 4.9 10*3/uL 2.0-7.7 [facility] Anion gap in Serum or Plasma Ordered By: Jaylen Jack on 08-02-2024 Anion gap [Moles/Vol] 10 mmol/L 5-15 [facility] Automated lymphocyte count a s percentage of total leukocytesOrdered By: Jaylen Jack on 08-02-2024 Lymphocytes/100 WBC Auto (Unsp spec) 16.3 % Low 19-41 [facility] BUN/creatinine ratioOrdered By: Jaylen Jack on 08-02-2024 Urea nitrogen/Creatinine [Mass ratio] 38.1 mg/mg High 10-20 [facility] Basophil percentageOrdered B y: aJylen Jack on 08-02-2024 Basophils/100 WBC (Bld) 0.4 % 0-1 [facility] Bilirubin Test strip Ql (U)O rdered By: Jaylen Jack on 08-02-2024 Bilirubin Ql (U) Negative Negative [facility] Bilirubin, totalOrdered By: Jaylen Jack on 08-02-2024 Bilirubin [Mass/Vol] 0.61 mg/dL 0.00-1.30 [facility] Brain/Head without Contrasto n 08-02-2024 Brain/Head without Contrast [facility] Imaging Services [address] [place] [address] Brain/Head without Contrast MR#: [id number] Acct: [id number] Name: AYAN CARRILLO Rep #: [id number] : 1945 F 79 From: Kervin correia MD PCP: Dr. Lilly Fletcher MD Status: REG ER Study: Brain/Head without Contrast Date of Exam: 05/24 Exam# [id number] Ordering Dr: Jaylen Jack DO PROCEDURE: BRAIN/HEAD WITHOUT CONTRAST 08/02/2024 REASON FOR EXAM: DIFFUSE WEAKNESS, DIZZINESS TECHNIQUE: Head CT without intravenous contrast. Coronal and Sagittal reconstruction series were provided. One or more dose reduction techniques were used (e.g., Automated exposure control, adjustment of the mA and/or kV according to patient size, use of iterative reconstruction technique. RADIATION DOSE SUMMARY: CTDlvol: 44.9 mGy DLP: 779 mGycm COMPARISON: None. FINDINGS: Mild diffuse cortical atrophy, commensurate with the patient's age. Scattered hypodense foci in the periventricular and subcortical white matter suggestive of chronic ischemic white matter disease. Normal size of the ventricles and extra-axial spaces for the patient's age. Normal basal ganglia and thalami. Normal brainstem. Normal cerebellum. There is no demonstrated extra-axial, intraparenchymal, or intraventricular hemorrhage. There are no findings of an acute ischemic infarction. Normal calvarium. There is no demonstrated fracture. Normal soft tissue structures. Mild chronic mucosal inflammatory changes of the right maxillary sinus. Normal remaining visualized paranasal sinuses. CT/Brain/Head without Contrast IMPRESSION: No CT evidence for acute brain abnormality. Reading Location: [place] [address] CC: Dr. Lilly Fletcher MD; Dr. Jaylen Jack DO Buffer Operator: Signed Normal [facility] CBC W/Diff, Automatedon 06-0 3-2024 Absolute Lymph 1.11 X10 3/uL Normal 0.83-4.51 [facility] Comment on above: Performed By: #### L 100.0100, L503.6005, L501.4021, L500.4050 #### [facility] [address] [place], [address] Absolute Neut 4.9 X10 3/uL Normal 2.0-7.7 [facility] Comment on above: Performed By: #### L 100.0100, L503.6005, L501.4021, L500.4050 #### [facility] [address] [place], [address] Basophils/100 WBC (Bld) 0.4 % Normal 0-1 [facility] Comment on above: Performed By: #### L 100.0100, L503.6005, L501.4021, L500.4050 #### [facility] [address] [place], [address] Eosinophils/100 WBC (Bld) 1.5 % Normal 0-5 [facility] Comment on above: Performed By: #### L 100.0100, L503.6005, L501.4021, L500.4050 #### [facility] [address] [place], [address] Erythrocyte distribution width (RBC) [Ratio] 12.6 % Normal 11.6-14.6 [facility] Comment on above: Performed By: #### L 100.0100, L503.6005, L501.4021, L500.4050 #### [facility] [address] [place], [address] Hematocrit (Bld) [Volume fraction] 42.2 % Normal 37-47 [facility] Comment on above: Performed By: #### L 100.0100, L503.6005, L501.4021, L500.4050 #### [facility] [address] [place], [address] Hemoglobin (Bld) [Mass/Vol] 13.8 g/dL Normal 12.0-15.0 [facility] Comment on above: Performed By: #### L 100.0100, L503.6005, L501.4021, L500.4050 #### [facility] [address] [place], [address] IG% 0.600 Normal 0.0-0.9 [facility] Comment on above: Result Comment: IG% - Immature Granulocytes (promyelocytes, myelocytes and metamyelocytes) > 1% indicates that a LEFT SHIFT is Present. Performed By: #### L 100.0100, L503.6005, L501.4021, L500.4050 #### [facility] [address] [place], [address] Lymphocytes/100 WBC (Bld) 16.3 % Low 19-41 [facility] Comment on above: Performed By: #### L 100.0100, L503.6005, L501.4021, L500.4050 #### [facility] [address] [place], [address] MCH (RBC) [Entitic mass] 30.7 pg Normal 27.0-32.0 [facility] Comment on above: Performed By: #### L 100.0100, L503.6005, L501.4021, L500.4050 #### [facility] [address] [place], [address] MCHC (RBC) [Mass/Vol] 32.7 g/dL Normal 32-36 [facility] Comment on above: Performed By: #### L 100.0100, L503.6005, L501.4021, L500.4050 #### [facility] [address] [place], [address] MCV (RBC) [Entitic vol] 93.8 fL Normal 81-99 [facility] Comment on above: Performed By: #### L 100.0100, L503.6005, L501.4021, L500.4050 #### [facility] [address] [place], [address] Monocytes/100 WBC (Bld) 9.1 % Normal 0-10 [facility] Comment on above: Performed By: #### L 100.0100, L503.6005, L501.4021, L500.4050 #### [facility] [address] [place], [address] Neutrophils/100 WBC (Bld) 72.1 % High 47-70 [facility] Comment on above: Performed By: #### L 100.0100, L503.6005, L501.4021, L500.4050 #### [facility] [address] [place], [address] Nucleated RBC (Bld) [#/Vol] 0 10*3/uL Normal 0-5 [facility] Comment on above: Performed By: #### L 100.0100, L503.6005, L501.4021, L500.4050 #### [facility] [address] [place], [address] Platelet mean volume (Bld) [Entitic vol] 10.0 fL Normal 6.2-12.0 [facility] Comment on above: Performed By: #### L 100.0100, L503.6005, L501.4021, L500.4050 #### [facility] [address] [place], [address] Platelets (Bld) [#/Vol] 201 10*3/uL Normal 150-450 [facility] Comment on above: Performed By: #### L 100.0100, L503.6005, L501.4021, L500.4050 #### [facility] [address] [place], [address] RBC (Bld) [#/Vol] 4.50 10*6/uL Normal 4.2-5.4 [facility] Comment on above: Performed By: #### L 100.0100, L503.6005, L501.4021, L500.4050 #### [facility] [address] [place], [address] RDW SD 43.5 fl Normal 35.1-43.9 [facility] Comment on above: Performed By: #### L 100.0100, L503.6005, L501.4021, L500.4050 #### [facility] [address] [place], [address] WBC (Bld) [#/Vol] 6.8 10*3/uL Normal 4.4-11.0 [facility] Comment on above: Performed By: #### L 100.0100, L503.6005, L501.4021, L500.4050 #### [facility] [address] [place], [address] Carbon dioxide, total [Moles /volume] in Central venous bloodOrdered By: Jaylen Jack on 08-02-2024 CO2 [Moles/Vol] 26.4 mmol/L 21.0-32.0 [facility] Chest 1 View (Portable)on Chest 1 View (Portable) [facility] Imaging Services [address] [place] [address] Chest 1 View (Portable) MR#: [id number] Acct: [id number] Name: AYAN CARRILLO Rep #: [id number] : 1945 F 79 From: Kervin correia MD PCP: Dr. Lilly Fletcher MD Status: [facility] ER Study: Chest 1 View (Portable) Date of Exam: 08/02/24 Exam# [id number] Ordering Dr: Jaylen Jack DO PROCEDURE: CHEST 1 VIEW (PORTABLE) 08/02/2024 REASON FOR EXAM: DIFFUSE WEAKNESS TECHNIQUE: Frontal view of the chest. COMPARISON: None. FINDINGS: Mild bilateral basilar atelectatic pulmonary changes. There is no demonstrated pleural abnormality. Enlarged cardiac silhouette. Normal mediastinum and mindy. Normal visualized pulmonary arteries. Atheromatous plaques of the visualized aortic arch and descending thoracic aorta. Diffuse spondylosis of the visualized thoracic spine. Normal visualized ribs, clavicles. Degenerative joint disease. There is no demonstrated abnormality of the visualized soft tissue structures of the upper abdomen. RAD/Chest 1 View (Portable) IMPRESSION: Mild bilateral basilar atelectatic pulmonary changes. Reading Location: [place] [address] CC: Dr. Lilly Fletcher MD; Dr. Jaylen Jack DO Buffer Operator: Signed Normal [facility] Chloride assayOrdered By: Lincoln Jack on 08-02-2024 Chloride [Moles/Vol] 105 mmol/L 98-108 [facility] Comprehensive Metabolic Prof ilon 08-02-2024 Albumin [Mass/Vol] 3.6 g/dL Normal 3.4-4.8 [facility] Comment on above: Performed By: #### L 100.0100, L503.6005, L501.4021, L500.4050 #### [facility] [address] [place], [address] Albumin/Globulin [Mass ratio] 1.2 {ratio} Normal 0.9-2.4 [facility] Comment on above: Performed By: #### L 100.0100, L503.6005, L501.4021, L500.4050 #### [facility] [address] [place], [address] ALK PHOS 107 U/L High 35-104 [facility] Comment on above: Performed By: #### L 100.0100, L503.6005, L501.4021, L500.4050 #### [facility] [address] [place], [address] ALT [Catalytic activity/Vol] 13 U/L Normal <=34 [facility] Comment on above: Performed By: #### L 100.0100, L503.6005, L501.4021, L500.4050 #### [facility] [address] [place], [address] AST [Catalytic activity/Vol] 17 U/L Normal <=31 [facility] Comment on above: Performed By: #### L 100.0100, L503.6005, L501.4021, L500.4050 #### [facility] [address] [place], [address] Bilirubin [Mass/Vol] 0.61 mg/dL Normal 0.00-1.30 [facility] Comment on above: Performed By: #### L 100.0100, L503.6005, L501.4021, L500.4050 #### [facility] [address] [place], [address] BUN/CRE 38.1 RATIO High 10-20 [facility] Comment on above: Performed By: #### L 100.0100, L503.6005, L501.4021, L500.4050 #### [facility] [address] [place], [address] Calcium [Mass/Vol] 10.5 mg/dL Normal 7.6-11.0 [facility] Comment on above: Performed By: #### L 100.0100, L503.6005, L501.4021, L500.4050 #### [facility] [address] [place], [address] Chloride [Moles/Vol] 105 mmol/L Normal 98-108 [facility] Comment on above: Performed By: #### L 100.0100, L503.6005, L501.4021, L500.4050 #### [facility] [address] [place], [address] CO2 [Moles/Vol] 26.4 mmol/L Normal 21.0-32.0 [facility] Comment on above: Performed By: #### L 100.0100, L503.6005, L501.4021, L500.4050 #### [facility] [address] [place], [address] Creatinine [Mass/Vol] 0.60 mg/dL Low 0.70-1.20 [facility] Comment on above: Performed By: #### L 100.0100, L503.6005, L501.4021, L500.4050 #### [facility] [address] [place], [address] ECRCL 58.03 ml/min Normal 50-250 [facility] Comment on above: Performed By: #### L 100.0100, L503.6005, L501.4021, L500.4050 #### [facility] [address] [place], [address] GAP 10 Normal 5-15 [facility] Comment on above: Performed By: #### L 100.0100, L503.6005, L501.4021, L500.4050 #### [facility] [address] [place], [address] GFR/1.73 sq M.predicted among non-blacks MDRD (S/P/Bld) [Vol rate/Area] 91 mL/min/{1.73_m2} Normal >60 [facility] Comment on above: Result Comment: mL/m in/1.73m2 CKD-EPI Creatinine Equation (2020) Performed By: #### L 100.0100, L503.6005, L501.4021, L500.4050 #### [facility] [address] [place], [address] Globulin (S) [Mass/Vol] 2.9 g/dL Normal 2.2-4.2 [facility] Comment on above: Performed By: #### L 100.0100, L503.6005, L501.4021, L500.4050 #### [facility] [address] [place], [address] Glucose [Mass/Vol] 117 mg/dL High 70-99 [facility] Comment on above: Performed By: #### L 100.0100, L503.6005, L501.4021, L500.4050 #### [facility] [address] [place], [address] Potassium [Moles/Vol] 3.8 mmol/L Normal 3.3-5.1 [facility] Comment on above: Performed By: #### L 100.0100, L503.6005, L501.4021, L500.4050 #### [facility] [address] [place], [address] Sodium [Moles/Vol] 142 mmol/L Normal 133-145 [facility] Comment on above: Performed By: #### L 100.0100, L503.6005, L501.4021, L500.4050 #### [facility] [address] [place], [address] T PROT 6.5 g/dL Normal 5.9-8.4 [facility] Comment on above: Performed By: #### L 100.0100, L503.6005, L501.4021, L500.4050 #### [facility] [address] [place], [address] Urea nitrogen [Mass/Vol] 23 mg/dL High 4-19 [facility] Comment on above: Performed By: #### L 100.0100, L503.6005, L501.4021, L500.4050 #### [facility] [address] [place], [address] Emergency Department Summary on 08-02-2024 Emergency Department Summary [facility] Medical Records Department [address] [place] [address] Emergency Department Summary 08/02/24 MR#: [id number] Acct: [id number] Name: AYAN CARRILLO Rep #: [id number] : 1945 79 From: Jaylen Jack DO PCP: Dr. Lilly Fletcher MD Status:REG ER Location: ED HPI History of Present Illness Chief Complaint: Weakness [facility] Medical History (Updated 08/02/24 @ 06:[address] Jaylen Jack DO) Myocardial infarction Obesity Essential (primary) hypertension Atherosclerotic heart disease of [place] coronary artery without angina pectoris Hyperlipidemia GERD (gastroesophageal reflux disease) Osteoarthritis Morbid obesity with BMI of 40.0-44.9, adult Home Medications ???Medication ???Instructions ???Recorded ???Last Taken ???Type aspirin 81 mg chewable tablet 81 mg PO QHS 10/25/15 10/24/15 His tory potassium gluconate 595 mg (99 mg) 595 mg PO DAILY PRN for low leve ls 09/09/18 Unknown History tablet carvedilol 25 mg tablet 25 mg PO BID Dose has been 4 Unknown Rx increased #180 tabs nitroglycerin 0.4 mg sublingual 0.4 mg sublingual Q5M PRN Chest Unknown Rx tablet Pain #25 tabs furosemide 40 mg tablet 40 mg PO DAILY this is a dose 03/25 Unknown Rx increase #90 tabs lisinopril 20 mg tablet 20 mg PO BID #180 tabs 02/09/24 Un known Rx atorvastatin 40 mg tablet 40 mg PO QHS #90 tabs 08/01/24 Unk nown Rx omeprazole 20 mg capsule,delayed 20 mg PO DAILY #90 caps 08/01/24 U nknown Rx release Allergy/AdvReac Type Severity Reaction Status Date / Time hydrochlorothiazide AdvReac Intermediate Constipatio Verified 08/02/24 03:43 n Family History Father CAD (coronary artery disease) Mother CHF (congestive heart failure) Sister Hypertension Surgical History History of cholecystectomy History of left heart catheterization (06/04/08) History of coronary angioplasty (09/20/07) History of laparoscopic cholecystectomy History of total hysterectomy Social History Smoking Status: Never smoker alcohol intake: never substance use type: does not use EXAM Physical Exam Const Vital Signs: 08/02/24 03:44 08/02/24 03:44 08/02/24 03:48 Temperature 97.8 F 97.8 F Temperature Source Oral Oral Pulse Rate 71 70 Respiratory Rate 20 H 20 H Respiratory Effort Normal Respiratory Pattern Normal Blood Pressure 131/111 H 134/111 H Blood Pressure Mean 117 118 Pulse Ox 95 95 Oxygen Delivery Method Room Air Room Air 08/02/24 04:48 08/02/24 05:00 08/02/24 06:00 Temperature 97.8 F 97.8 F 97.8 F Temperature Source Oral Oral Oral Pulse Rate 69 63 72 Respiratory Rate 18 18 18 Respiratory Effort Respiratory Pattern Blood Pressure 131/71 H 141/77 H 137/112 H Blood Pressure Mean 91 98 120 Pulse Ox 94 97 98 Oxygen Delivery Method Room Air Room Air Room Air MDM MDM MDM Narrative Medical decision making narrative: HISTORY OF PRESENT ILLNESS: Chief complaint: Weakness, dizziness, lightheadedness Atrial female history of of CAD, NC status post stent, hypertension, hyperlipidemia presents with multiple symptoms with diffuse weakness mostly in the lower extremities. Denies chest pain, shortness of breath. Denies cough fever chills. Denies headache or recent falls. Denies syncope. Has abdominal pain. Denies urinary frequency urgency or dysuria. Denies diarrhea melena hematochezia. Denies focal weakness REVIEW OF SYSTEMS: Pertinent positives: Diffuse weakness, dizziness and lightheadedness Pertinent negatives: as per HPI PHYSICAL EXAM: Nursing triage notes reviewed, Vital signs reviewed Constitutional: please see mdm HENT: MMM Eyes: Pupils equal round and reactive to light, Extraocular muscles intact Neck: No stridor, no JVD, full neck ROM Lungs: Clear to auscultation, No wheezing or rales. No increased work of breathing, no conversational dyspnea, no accessory muscle use, no nasal flaring. No respiratory distress noted Heart: Regular rate and rhythm, No murmurs, No rubs and No gallops, 2+ distal pulses (radial, femoral, posterior tibial) in all extremities Abdomen: Soft, there is no tenderness, rigidity, rebound or guarding, no obvious peritoneal signs, no palpable pulsatile abdominal masses, no auscultated abdominal bruit : No CVAT Extremities: No edema Neuro: No new focal neurological deficits, cranial nerves II through XII intact, 5/5 strength in all present extremities. Intact sensation to light touch in all present extremities, 2+ reflexes bilateral patella tendons. Skin: No rash or lesions noted MEDICAL DECISION MAKING: (more content not included)... Normal [facility] Eosinophil percentageOrdered By: Jaylen Jack on 08-02-2024 Eosinophils/100 WBC (Bld) 1.5 % 0-5 [facility] Erythrocyte distribution wid th ratioOrdered By: Jaylen Jack on 08-02-2024 Erythrocyte distribution width (RBC) [Ratio] 12.6 % 11.6-14.6 [facility] Erythrocyte distribution wid th standard deviationOrdered By: Jaylen Jack on 08-02-2024 Erythrocyte distribution width (RBC) [Ratio] 43.5 fl 35.1-43.9 [facility] Glomerular filtration rate ( GFR) estimation/1.73 sq m using serum, plasma, or whole bOrdered By: Jaylen Jack on 08-02-2024 GFR/1.73 sq M.predicted among non-blacks MDRD (S/P/Bld) [Vol rate/Area] 91 mL/min/{1.73_m2} >60 [facility] Comment on above: mL/min/1.73m2 CKD-EP I Creatinine Equation (2020) Hematocrit Auto (Bld) [Volum e fraction]Ordered By: Jaylen Jack on 08-02-2024 Hematocrit (Bld) [Volume fraction] 42.2 % 37-47 [facility] Hemoglobin measurementOrdere d By: Jaylen Jack on 08-02-2024 Hemoglobin (Bld) [Mass/Vol] 13.8 g/dL 12.0-15.0 [facility] Immature granulocytes/100 WB C Auto (Bld)Ordered By: Jaylen Jack on 08-02-2024 Immature granulocytes/100 WBC (Bld) 0.600 % 0.0-0.9 [facility] Comment on above: IG% - Immature Granu locytes (promyelocytes, myelocytes and metamyelocytes) > 1% indicates that a LEFT SHIFT is Present. Ketones Test strip Ql (U)Ord ered By: Jaylen Jack on 08-02-2024 Ketones Ql (U) Negative Negative [facility] L501.4021on 08-02-2024 Trop T High Sen 18 ng/L High <=14 [facility] Comment on above: Performed By: #### L 100.0100, L503.6005, L501.4021, L500.4050 ####[facility] [id number] [place], [place], [address] Laboratory - Chemistry and C hemistry - challengeOrdered By: Jaylen Jack on 08-02-2024 AST [Catalytic activity/Vol] 17 U/L <32 [facility] Lactic acid measurementOrder ed By: Jaylen Jack on 08-02-2024 Lactate [Moles/Vol] 1.2 mmol/L Normal 0.0-2.0 [facility] Comment on above: Order Comment: Y Performed By: #### L 100.0100, L503.6005, L501.4021, L500.4050 ####[facility] [id number] [place], [place], [id number] MCV (mean corpuscular volume ) determinationOrdered By: Jaylen Jack on 08-02-2024 MCV (RBC) [Entitic vol] 93.8 fL 81-99 [facility] Mean corpuscular hemoglobin (MCH) determinationOrdered By: Jaylen Jack on 08-02-2024 MCH (RBC) [Entitic mass] 30.7 pg 27.0-32.0 [facility] Mean corpuscular hemoglobin concentration (MCHC) determinationOrdered By: Jaylen Jack on 08-02-2024 MCHC (RBC) [Mass/Vol] 32.7 g/dL 32-36 [facility] Mean platelet volume determi nationOrdered By: Jaylen Jack on 08-02-2024 Platelet mean volume (Bld) [Entitic vol] 10.0 fL 6.2-12.0 [facility] Microscopic analysis of urin e for red blood cells (RBC)Ordered By: Jaylen Jack on 08-02-2024 Microscopic analysis of urine for red blood cells (RBC) 0 SEEN /hpf 0-5 [facility] Monocyte percentageOrdered B y: Jaylen Jack on 08-02-2024 Monocytes/100 WBC (Bld) 9.1 % 0-10 [facility] Mucus LM Ql (Urine sed)Order ed By: Jaylen Jack on 08-02-2024 Mucus Ql (Urine sed) 0 SEEN /hpf [facility] Neutrophil percentageOrdered By: Jaylen Jack on 08-02-2024 Neutrophils/100 WBC (Bld) 72.1 % High 47-70 [facility] Nitrite Test strip Ql (U)Ord ered By: Jaylen Jack on 08-02-2024 Nitrite Ql (U) Negative Negative [facility] Nucleated red blood cell per centageOrdered By: Jaylen Jack on 08-02-2024 Nucleated RBC/100 WBC (Bld) [Ratio] 0 % 0-5 [facility] Platelet countOrdered By: Lincoln Jack on 08-02-2024 Platelets (Bld) [#/Vol] 201 10*3/uL 150-450 [facility] Potassium measurement (mass/ volume)Ordered By: Jaylen Jack on 08-02-2024 Potassium (Unsp spec) [Mass/Vol] 3.8 mmol/L 3.3-5.1 [facility] Protein Test strip Ql (U)Ord ered By: Jaylen Jack on 08-02-2024 Protein Ql (U) 30 mg/dl High Negative [facility] RBC Auto (Bld) [#/Vol]Ordere d By: Jaylen Jack on 08-02-2024 RBC (Bld) [#/Vol] 4.50 10*6/uL 4.2-5.4 [facility] Serum creatinine measurement (mass/volume)Ordered By: Jaylen Jack on 08-02-2024 Creatinine [Mass/Vol] 0.60 mg/dL Low 0.70-1.20 [facility] Serum globulin measurementOr dered By: Jaylen Jack on 08-02-2024 Globulin (S) [Mass/Vol] 2.9 g/dL 2.2-4.2 [facility] Serum glucose measurement (m ass/volume)Ordered By: Jaylen Jack on 08-02-2024 Glucose [Mass/Vol] 117 mg/dL High 70-99 [facility] Serum or plasma alanine rajput otransferase (ALT) measurementOrdered By: Jaylen Jack on 08-02-2024 ALT [Catalytic activity/Vol] 13 U/L <35 [facility] Serum or plasma albumin aaron urement (mass/volume)Ordered By: Jaylen Jack on 08-02-2024 Albumin [Mass/Vol] 3.6 g/dL 3.4-4.8 [facility] Serum or plasma albumin/glob ulin mass ratioOrdered By: Jaylen Jack on 08-02-2024 Albumin/Globulin [Mass ratio] 1.2 {ratio} 0.9-2.4 [facility] Serum or plasma alkaline bernardo sphatase measurementOrdered By: Jaylen Jack on 08-02-2024 ALP [Catalytic activity/Vol] 107 U/L High 35-104 [facility] Serum or plasma calcium aaron urement (mass/volume)Ordered By: Jaylen Jack on 08-02-2024 Calcium [Mass/Vol] 10.5 mg/dL 7.6-11.0 [facility] Serum or plasma urea nitroge n measurement (mass/volume)Ordered By: Jaylen Jack on 08-02-2024 Urea nitrogen [Mass/Vol] 23 mg/dL High 4-19 [facility] Sodium levelOrdered By: Ramos Jack on 08-02-2024 Sodium [Moles/Vol] 142 mmol/L 133-145 [facility] Squamous epithelial cells de tection in urine sediment by light microscopyOrdered By: Jaylen Jack on 08-02-2024 Epithelial cells.squamous LM Ql (Urine sed) 0-5 SEEN /hpf 5-10 [facility] Total proteinOrdered By: Olesya Jack on 08-02-2024 Protein [Mass/Vol] 6.5 g/dL 5.9-8.4 [facility] Troponin T.cardiac [Mass/vol ume] in Serum or Plasma by High sensitivity methodOrdered By: Jaylen Jack on 08-02-2024 Troponin T.cardiac High sensitivity method [Mass/Vol] 18 ng/L High <14 [facility] Urinalysis, Completeon 08-02 BACTERIA RARE Normal None Seen [facility] Comment on above: Order Comment: MAYA CTOR TO SPECIFY Performed By: #### L 400.0001 ####[facility] [address] [place], [place], [phone] EPI,SQUAMOUS 0-5 SEEN Normal 5-10 [facility] Comment on above: Order Comment: MAYA CTOR TO SPECIFY Performed By: #### L 400.0001 ####[facility] [address] [place], [address] WBC 0-5 SEEN Normal 0-5 [facility] Comment on above: Order Comment: MAYA CTOR TO SPECIFY Performed By: #### L 400.0001 ####[facility] [address] [place], [address] Mucus Ql (Urine sed) 0 SEEN Normal [facility] Comment on above: Order Comment: MAYA CTOR TO SPECIFY Performed By: #### L 400.0001 ####[facility] [address] [place], [address] RBC 0 SEEN Normal 0-5 [facility] Comment on above: Order Comment: MAYA CTOR TO SPECIFY Performed By: #### L 400.0001 ####[facility] [address] [place], [address] Urine clarityOrdered By: Olesya Jack on 08-02-2024 Clarity (U) Sl. Cloudy Clear [facility] Urine color determinationOrd ered By: Jaylen Jack on 08-02-2024 Color (U) Yellow Yellow [facility] Urine glucose detectionOrder ed By: Jaylen Jack on 08-02-2024 Glucose Ql (U) Normal mg/dl Normal [facility] Urine leukocyte esterase det ection by dipstickOrdered By: Jaylen Jack on 08-02-2024 Leukocyte esterase Test strip Ql (U) Negative Negative [facility] Urine pHOrdered By: Jaylen carroll on 08-02-2024 pH (U) 6.0 [pH] 5.0 - 8.0 [facility] Urine sediment bacteria coun t by microscopy (number/high power field)Ordered By: Jaylen Jack on 08-02-2024 Bacteria LM.HPF (Urine sed) [#/Area] RARE /hpf None Seen [facility] Urine specific gravity measu rementOrdered By: Jaylen Jack on 08-02-2024 Specific gravity (U) [Rel density] 1.020 1.002-1.030 [facility] Urine urobilinogen measureme ntOrdered By: Jaylen Jack on 08-02-2024 Urobilinogen Ql (U) Normal mg/dl Normal [facility] White blood cell (WBC) count Ordered By: Jaylen Jack on 08-02-2024 WBC (Bld) [#/Vol] 6.8 10*3/uL 4.4-11.0 [facility] White blood cell countOrdere d By: Jaylen Jack on 08-02-2024 White blood cell count 0-5 SEEN /hpf 0-5 [facility] Absolute lymphocyte countOrd ered By: Jennifer Meléndez on 06-18-2024 Lymphocytes Auto (Unsp spec) [#/Vol] 1.33 10*3/uL 0.83-4.51 [facility] Absolute neutrophil countOrd ered By: Jennifer Meléndez on 06-18-2024 Neutrophils (Bld) [#/Vol] 5.2 10*3/uL 2.0-7.7 [facility] Anion gap in Serum or Plasma Ordered By: Jennifer Meléndez on 06-18-2024 Anion gap [Moles/Vol] 9 mmol/L 5-15 [facility] Automated lymphocyte count a s percentage of total leukocytesOrdered By: Jennifer Meléndez on 06-18-2024 Lymphocytes/100 WBC Auto (Unsp spec) 18.1 % Low 19-41 [facility] BUN/creatinine ratioOrdered By: Jennifer Meléndez on 06-18-2024 Urea nitrogen/Creatinine [Mass ratio] 38.3 mg/mg High 10-20 [facility] Basic Metabolic Profile (BMP )on 06-18-2024 BUN/CRE 38.3 RATIO High 10- [facility] Comment on above: Performed By: #### L 500.2500, L100.0100 #### [facility] [address] [place], [address] Calcium [Mass/Vol] 10.4 mg/dL Normal 7.6-11.0 [facility] Comment on above: Performed By: #### L 500.2500, L100.0100 #### [facility] [address] [place], [address] Chloride [Moles/Vol] 102 mmol/L Normal 98-108 [facility] Comment on above: Performed By: #### L 500.2500, L100.0100 #### [facility] [address] [place], [address] CO2 [Moles/Vol] 27.6 mmol/L Normal 21.0-32.0 [facility] Comment on above: Performed By: #### L 500.2500, L100.0100 #### [facility] [address] [place], [address] Creatinine [Mass/Vol] 0.70 mg/dL Normal 0.70-1.20 [facility] Comment on above: Performed By: #### L 500.2500, L100.0100 #### [facility] [address] [place], [address] ECRCL 59.54 ml/min Normal 50-250 [facility] Comment on above: Performed By: #### L 500.2500, L100.0100 #### [facility] [address] [place], [address] GAP 9 Normal 5-15 [facility] Comment on above: Performed By: #### L 500.2500, L100.0100 #### [facility] [address] [place], [address] GFR/1.73 sq M.predicted among non-blacks MDRD (S/P/Bld) [Vol rate/Area] 88 mL/min/{1.73_m2} Normal >60 [facility] Comment on above: Result Comment: mL/m in/1.73m2 CKD-EPI Creatinine Equation (2020) Performed By: #### L 500.2500, L100.0100 #### [facility] [address] [place], [address] Glucose [Mass/Vol] 114 mg/dL High 70-99 [facility] Comment on above: Performed By: #### L 500.2500, L100.0100 #### [facility] [address] [place], [address] Potassium [Moles/Vol] 4.5 mmol/L Normal 3.3-5.1 [facility] Comment on above: Performed By: #### L 500.2500, L100.0100 #### [facility] [address] [place], [address] Sodium [Moles/Vol] 139 mmol/L Normal 133-145 [facility] Comment on above: Performed By: #### L 500.2500, L100.0100 #### [facility] [address] [place], [address] Urea nitrogen [Mass/Vol] 27 mg/dL High 4-19 [facility] Comment on above: Performed By: #### L 500.2500, L100.0100 #### [facility] [address] [place], [address] Basophil percentageOrdered B y: Jennifer Meléndez on 06-18-2024 Basophils/100 WBC (Bld) 0.3 % 0-1 [facility] CBC W/Diff, Automatedon 05-31 Absolute Lymph 1.33 X10 3/uL Normal 0.83-4.51 [facility] Comment on above: Performed By: #### L 500.2500, L100.0100 #### [facility] [address] [place], [address] Absolute Neut 5.2 X10 3/uL Normal 2.0-7.7 [facility] Comment on above: Performed By: #### L 500.2500, L100.0100 #### [facility] [address] [place], [address] Basophils/100 WBC (Bld) 0.3 % Normal 0-1 [facility] Comment on above: Performed By: #### L 500.2500, L100.0100 #### [facility] [address] [place], [address] Eosinophils/100 WBC (Bld) 1.0 % Normal 0-5 [facility] Comment on above: Performed By: #### L 500.2500, L100.0100 #### [facility] [address] [place], [address] Erythrocyte distribution width (RBC) [Ratio] 12.6 % Normal 11.6-14.6 [facility] Comment on above: Performed By: #### L 500.2500, L100.0100 #### [facility] [address] [place], [address] Hematocrit (Bld) [Volume fraction] 42.3 % Normal 37-47 [facility] Comment on above: Performed By: #### L 500.2500, L100.0100 #### [facility] [address] [place], [address] Hemoglobin (Bld) [Mass/Vol] 14.1 g/dL Normal 12.0-15.0 [facility] Comment on above: Performed By: #### L 500.2500, L100.0100 #### [facility] [address] [place], [address] IG% 0.400 Normal 0.0-0.9 [facility] Comment on above: Result Comment: IG% - Immature Granulocytes (promyelocytes, myelocytes and metamyelocytes) > 1% indicates that a LEFT SHIFT is Present. Performed By: #### L 500.2500, L100.0100 #### [facility] [address] [place], [address] Lymphocytes/100 WBC (Bld) 18.1 % Low 19-41 [facility] Comment on above: Performed By: #### L 500.2500, L100.0100 #### [facility] [address] [place], [address] MCH (RBC) [Entitic mass] 30.4 pg Normal 27.0-32.0 [facility] Comment on above: Performed By: #### L 500.2500, L100.0100 #### [facility] [address] [place], [address] MCHC (RBC) [Mass/Vol] 33.3 g/dL Normal 32-36 [facility] Comment on above: Performed By: #### L 500.2500, L100.0100 #### [facility] [address] [place], [address] MCV (RBC) [Entitic vol] 91.2 fL Normal 81-99 [facility] Comment on above: Performed By: #### L 500.2500, L100.0100 #### [facility] [address] [place], [address] Monocytes/100 WBC (Bld) 9.1 % Normal 0-10 [facility] Comment on above: Performed By: #### L 500.2500, L100.0100 #### [facility] [address] [place], [address] Neutrophils/100 WBC (Bld) 71.1 % High 47-70 [facility] Comment on above: Performed By: #### L 500.2500, L100.0100 #### [facility] [address] [place], [address] Nucleated RBC (Bld) [#/Vol] 0 10*3/uL Normal 0-5 [facility] Comment on above: Performed By: #### L 500.2500, L100.0100 #### [facility] [address] [place], [address] Platelet mean volume (Bld) [Entitic vol] 9.3 fL Normal 6.2-12.0 [facility] Comment on above: Performed By: #### L 500.2500, L100.0100 #### [facility] [address] [place], [address] Platelets (Bld) [#/Vol] 222 10*3/uL Normal 150-450 [facility] Comment on above: Performed By: #### L 500.2500, L100.0100 #### [facility] [address] [place], [address] RBC (Bld) [#/Vol] 4.64 10*6/uL Normal 4.2-5.4 [facility] Comment on above: Performed By: #### L 500.2500, L100.0100 #### [facility] [address] [place], [address] RDW SD 41.5 fl Normal 35.1-43.9 [facility] Comment on above: Performed By: #### L 500.2500, L100.0100 #### [facility] [address] [place], [address] WBC (Bld) [#/Vol] 7.3 10*3/uL Normal 4.4-11.0 [facility] Comment on above: Performed By: #### L 500.2500, L100.0100 #### [facility] [address] [place], [address] Carbon dioxide, total [Moles /volume] in Central venous bloodOrdered By: Jennifer Meléndez on 06-18-2024 CO2 [Moles/Vol] 27.6 mmol/L 21.0-32.0 [facility] Chloride assayOrdered By: Myriam Meléndez on 06-18-2024 Chloride [Moles/Vol] 102 mmol/L 98-108 [facility] Emergency Department Summary on 06-18-2024 Emergency Department Summary [facility] Medical Records Department [address] [place] [address] Emergency Department Summary 06/18/24 MR#: [id number] Acct: [id number] Name: AYAN CARRILLO Rep #: [id number] : 1945 78 From: Jennifer MAJOR PCP: [...] pain, shortness of breath, palpitations or syncope. [facility] Medical History Obesity Essential (primary) hypertension Atherosclerotic heart disease of [place] coronary artery without angina pectoris Hyperlipidemia GERD (gastroesophageal reflux disease) Osteoarthritis Morbid obesity with BMI of 40.0-44.9, adult Home Medications ???Medication ???Instructions ???Recorded ???Last Taken ???Type aspirin 81 mg chewable tablet 81 mg PO QHS 10/25/15 10/24/15 His tory potassium gluconate 595 mg (99 mg) 595 mg PO DAILY PRN for low leve ls 09/09/18 Unknown History tablet atorvastatin 40 mg [...] (more content not included)... Normal [facility] Eosinophil percentageOrdered By: Jennifer Meléndez on 06-18-2024 Eosinophils/100 WBC (Bld) 1.0 % 0-5 [facility] Erythrocyte distribution wid th (RBC) [Ratio]Ordered By: Jennifer Meléndez on 06-18-2024 Erythrocyte distribution width (RBC) [Entitic vol] 41.5 fL 35.1-43.9 [facility] Erythrocyte distribution wid th ratioOrdered By: Jennifer Meléndez on 06-18-2024 Erythrocyte distribution width (RBC) [Ratio] 12.6 % 11.6-14.6 [facility] Erythrocyte distribution wid th standard deviationOrdered By: Jennifer Meléndez on 06-18-2024 Erythrocyte distribution width (RBC) [Ratio] 41.5 fl 35.1-43.9 [facility] Estimation of creatinine renea aranceOrdered By: Jennifer Meléndez on 06-18-2024 Estimated Creatinine Clearance Calc 59.54 ml/min 50-250 [facility] GFR/1.73 sq M.predicted bronson g non-blacks MDRD (S/P/Bld) [Vol rate/Area]Ordered By: Jennifer Meléndez on 06-18-2024 Estimated GFR (MDRD) Non-Af Amer 88 >60 [facility] Comment on above: mL/min/1.73m2 CKD-EP I Creatinine Equation (2020) Glomerular filtration rate ( GFR) estimation/1.73 sq m using serum, plasma, or whole bOrdered By: Jennifer Meléndez on 06-18-2024 GFR/1.73 sq M.predicted among non-blacks MDRD (S/P/Bld) [Vol rate/Area] 88 mL/min/{1.73_m2} >60 [facility] Comment on above: mL/min/1.73m2 CKD-EP I Creatinine Equation (2020) Hematocrit Auto (Bld) [Volum e fraction]Ordered By: Jennifer Meléndez on 06-18-2024 Hematocrit (Bld) [Volume fraction] 42.3 % 37-47 [facility] Hemoglobin measurementOrdere d By: Jennifer Meléndez on 06-18-2024 Hemoglobin (Bld) [Mass/Vol] 14.1 g/dL 12.0-15.0 [facility] Immature granulocytes/100 WB C Auto (Bld)Ordered By: Jennifer Meléndez on 06-18-2024 Immature granulocytes/100 WBC (Bld) 0.400 % 0.0-0.9 [facility] Comment on above: IG% - Immature Granu locytes (promyelocytes, myelocytes and metamyelocytes) > 1% indicates that a LEFT SHIFT is Present. Lymphocytes Auto (Unsp spec) [#/Vol]Ordered By: Jennifer Meléndez on 06-18-2024 Lymphocytes (Bld) [#/Vol] 1.33 10*3/uL 0.83-4.51 [facility] Lymphocytes/100 WBC Auto (Un sp spec)Ordered By: Jennifer Meléndez on 06-18-2024 Lymphocytes/100 WBC (Bld) 18.1 % Low 19-41 [facility] MCV (mean corpuscular volume ) determinationOrdered By: Jennifer Meléndez on 06-18-2024 MCV (RBC) [Entitic vol] 91.2 fL 81-99 [facility] Mean corpuscular hemoglobin (MCH) determinationOrdered By: Jennifer Meléndez on 06-18-2024 MCH (RBC) [Entitic mass] 30.4 pg 27.0-32.0 [facility] Mean corpuscular hemoglobin concentration (MCHC) determinationOrdered By: Jennifer Meléndez on 06-18-2024 MCHC (RBC) [Mass/Vol] 33.3 g/dL 32-36 [facility] Mean platelet volume determi nationOrdered By: Jennifer Meléndez on 06-18-2024 Platelet mean volume (Bld) [Entitic vol] 9.3 fL 6.2-12.0 [facility] Monocyte percentageOrdered B y: Jennifer Meléndez on 06-18-2024 Monocytes/100 WBC (Bld) 9.1 % 0-10 [facility] Neutrophil percentageOrdered By: Jennifer Meléndez on 06-18-2024 Neutrophils/100 WBC (Bld) 71.1 % High 47-70 [facility] Nucleated red blood cell per centageOrdered By: Jennifer Meléndez on 06-18-2024 Nucleated RBC/100 WBC (Bld) [Ratio] 0 % 0-5 [facility] Platelet countOrdered By: Myriam Meléndez on 06-18-2024 Platelets (Bld) [#/Vol] 222 10*3/uL 150-450 [facility] Potassium (Unsp spec) [Mass/ Vol]Ordered By: Jennifer Meléndez on 06-18-2024 Potassium [Moles/Vol] 4.5 mmol/L 3.3-5.1 [facility] Potassium measurement (mass/ volume)Ordered By: Jennifer Meléndez on 06-18-2024 Potassium (Unsp spec) [Mass/Vol] 4.5 mmol/L 3.3-5.1 [facility] RBC Auto (Bld) [#/Vol]Ordere d By: Jennifer Archibaldier on 06-18-2024 RBC (Bld) [#/Vol] 4.64 10*6/uL 4.2-5.4 [facility] Serum creatinine measurement (mass/volume)Ordered By: Jennifer Meléndez on 06-18-2024 Creatinine [Mass/Vol] 0.70 mg/dL 0.70-1.20 [facility] Serum glucose measurement (m ass/volume)Ordered By: Jennifer Meléndez on 06-18-2024 Glucose [Mass/Vol] 114 mg/dL High 70-99 [facility] Serum or plasma calcium aaron urement (mass/volume)Ordered By: Jennifer Meléndez on 06-18-2024 Calcium [Mass/Vol] 10.4 mg/dL 7.6-11.0 [facility] Serum or plasma urea nitroge n measurement (mass/volume)Ordered By: Jennifer Meléndez on 06-18-2024 Urea nitrogen [Mass/Vol] 27 mg/dL High 4-19 [facility] Sodium levelOrdered By: Jennifer Meléndez on 06-18-2024 Sodium [Moles/Vol] 139 mmol/L 133-145 [facility] White blood cell (WBC) count Ordered By: Jennifer Meléndez on 06-18-2024 WBC (Bld) [#/Vol] 7.3 10*3/uL 4.4-11.0 [facility] Echo Complete W/ Contraston 10-06-2023 Echo Complete W/ Contrast [facility] [address] [place] [address] Echo Complete W/ Contrast 10/06/23 1404 MR#: [id number] Acct: [id number] Name: AYAN CARRILLO Rep #: [id number] : 1945 78 From: Elie Davis MD Attending Dr: Ginger Grace MISSILE TECHNICIAN-C Status: BERNARD ALVAREZ Ordering Dr: Ginger Grace NP MISSILE TECHNICIAN-C Date: 10/06/23 Location: [facility] Sex: F C Admitted: Reason For Study: [...] Lilly Fletcher M.D. Performed By: Ahmet Fish RCS 10/06/238 Date Elie Davis MD CC: MONICA Grace; Dr. Lilly Fletcher MD Date Dictated: 10/06/23 1404 Date Transcribed: 10/06/231627 Buffer Operator: Signed Normal [facility] Culture, urineOrdered By: Russell Markham on 03-25-2023 Bacteria identified Cx Nom (U) Mixed Gram Pos & Gram Neg Org [facility] Basophil percentageOrdered B y: Ginger Grace on 02-02-2023 Bilirubin [Mass/Vol] 0.70 mg/dL 0.20-1.00 [facility] Comment on above: For patients on eltr ombopag therapy, use of Dimension [place] TBIL is not recommended. Cholesterol [Mass/Vol] 96 mg/dL <200 [facility] Comment on above: <200 mg/dL Desirable 200-240 mg/dL Borderline >240 mg/dL High Risk Protein [Mass/Vol] 6.1 g/dL 6.4-8.2 [facility] Triglyceride [Mass/Vol] 127 mg/dL <199 [facility] Comment on above: The drugs N-Acetylcy steine and Metamizole may falsely depress this assay.Serum Triglycerides Reference Interval Normal <150 mg/dL Borderline high 150 - 199 mg/dL High 200 - 499 mg/dL Very High > or = 500 mg/dL Direct bilirubinOrdered By: Ginger Grace on 02-02-2023 Bilirubin.direct [Mass/Vol] 0.19 mg/dL 0.00-0.30 [facility] - Chemistry and C hemistry - challengeOrdered By: Ginger Grace on 02-02-2023 ALP [Catalytic activity/Vol] 105 U/L 45-117 [facility] ALT [Catalytic activity/Vol] 18 U/L 13-56 [facility] Globulin (S) [Mass/Vol] 3.4 g/dL 2.2-4.2 [facility] Serum or plasma albumin aaron urement (mass/volume)Ordered By: Ginger Grace on 02-02-2023 Albumin [Mass/Vol] 2.7 g/dL 3.2-5.0 [facility] Serum or plasma cholesterol in HDL measurement (mass/volume)Ordered By: Ginger Grace on 02-02-2023 Cholesterol in HDL [Mass/Vol] 39 mg/dL >40 [facility] Comment on above: The drugs N-Acetylcy steine and Metamizole may falsely depress this assay. Reference Range HDL <40 mg/dL Low HDL Cholesterol HDL >or= 60 mg/dL High HDL Cholesterol Serum or plasma cholesterol in VLDL measurement (mass/volume)Ordered By: Ginger Grace on 02-02-2023 Cholesterol in VLDL [Mass/Vol] 25 mg/dL 5-40 [facility] Serum or plasma low density lipoprotein (LDL) cholesterol measurement (mass/volume)Ordered By: Ginger Grace on 02-02-2023 Cholesterol in LDL [Mass/Vol] 32 mg/dL 0-130 [facility] Thin prep Papanicolaou smear with manual screeningOrdered By: Ginger Grace on 02-02-2023 Thin prep Papanicolaou smear with manual screening 14 U/L 15-37 [facility] Basophil percentageon 2021 Chloride [Moles/Vol] 106 mmol/L 98-107 [facility] Work Phone: Glucose [Mass/Vol] 102 mg/dL 74-106 [facility] Work Phone: Comment on above: Fasting Glucose resu lt from 100 to 125 mg/dL suggests IMPAIRED HOMEOSTASIS per A.D.A. criteria. Potassium [Moles/Vol] 4.0 mmol/L 3.5-5.1 [facility] Work Phone: Sodium [Moles/Vol] 141 mmol/L 136-145 [facility] Work Phone: Laboratory - Chemistry and C hemistry - challengeon 01-07-2022 CO2 [Moles/Vol] 28.0 mmol/L 21.0-32.0 [facility] Work Phone: Urea nitrogen/Creatinine [Mass ratio] 27.5 mg/mg 10-20 [facility] Work Phone: No Panel Informationon 01-07 Estimated GFR (MDRD) Amer 129 mL/min >60 [facility] Work Phone: Comment on above: GFR Calc Estimated GFR (MDRD) Non-Af Amer 107 mL/min >60 [facility] Work Phone: Comment on above: Non- GFR Calc Serum or plasma calcium aaron urement (mass/volume)on 01-07-2022 Calcium [Mass/Vol] 9.4 mg/dL 8.5-10.1 [facility] Work Phone: [phone] Serum or plasma creatinine m easurement (mass/volume)on 01-07-2022 Creatinine [Mass/Vol] 0.58 mg/dL 0.55-1.02 [facility] Work Phone: [phone] Comment on above: The validity of the calculated GFR & GFRAA in patients over 70 years has not been determined. Clinical correlation is essential. Serum or plasma urea nitroge n measurement (mass/volume)on 01-07-2022 Urea nitrogen [Mass/Vol] 16 mg/dL 7-18 [facility] Work Phone: [phone] Thin prep Papanicolaou smear with manual screeningon 01-07-2022 Thin prep Papanicolaou smear with manual screening 7 5-15 [facility] Work Phone: [phone] Basophil percentageon 2021 Bilirubin [Mass/Vol] 0.90 mg/dL 0.20-1.00 [facility] Work Phone: [phone] Comment on above: For patients on eltr ombopag therapy, use of [place] TBIL is not recommended. Chloride [Moles/Vol] 107 mmol/L 98-107 [facility] Work Phone: [phone] Cholesterol [Mass/Vol] 113 mg/dL <200 [facility] Work Phone: [phone] Comment on above: <200 mg/dL Desirable 200-240 mg/dL Borderline >240 mg/dL High Risk Glucose [Mass/Vol] 109 mg/dL 74-106 [facility] Work Phone: Comment on above: Fasting Glucose resu lt from 100 to 125 mg/dL suggests IMPAIRED HOMEOSTASIS per A.D.A. criteria. Potassium [Moles/Vol] 4.0 mmol/L 3.5-5.1 [facility] Work Phone: [phone] Protein [Mass/Vol] 6.6 g/dL 6.4-8.2 [facility] Work Phone: [phone] Sodium [Moles/Vol] 139 mmol/L 136-145 [facility] Work Phone: [phone] Triglyceride [Mass/Vol] 116 mg/dL <199 [facility] Work Phone: [phone] Comment on above: The drugs N-Acetylcy steine and Metamizole may falsely depress this assay.Serum Triglycerides Reference Interval Normal <150 mg/dL Borderline high 150 - 199 mg/dL High 200 - 499 mg/dL Very High > or = 500 mg/dL Direct bilirubinon 2 Bilirubin.direct [Mass/Vol] 0.27 mg/dL 0.00-0.30 [facility] Work Phone: Laboratory - Chemistry and C hemistry - challengeon 12-25-2021 ALP [Catalytic activity/Vol] 132 U/L 45-117 [facility] Work Phone: [phone] ALT [Catalytic activity/Vol] 15 U/L 13-56 [facility] Work Phone: [phone] CO2 [Moles/Vol] 30.0 mmol/L 21.0-32.0 [facility] Work Phone: Globulin (S) [Mass/Vol] 3.6 g/dL 2.2-4.2 [facility] Work Phone: [phone] Natriuretic peptide B (Bld) [Mass/Vol] 243.4 pg/mL 0-100 [facility] Work Phone: Urea nitrogen/Creatinine [Mass ratio] 22.1 mg/mg 10-20 [facility] Work Phone: No Panel Informationon 12-25 Estimated GFR (MDRD) Amer 139 mL/min >60 [facility] Work Phone: Comment on above: GFR Calc Estimated GFR (MDRD) Non-Af Amer 115 mL/min >60 [facility] Work Phone: [phone] Comment on above: Non- GFR Calc Serum or plasma albumin aaron urement (mass/volume)on 12-25-2021 Albumin [Mass/Vol] 3.0 g/dL 3.2-5.0 [facility] Work Phone: [phone] Serum or plasma calcium aaron urement (mass/volume)on 12-25-2021 Calcium [Mass/Vol] 10.0 mg/dL 8.5-10.1 [facility] Work Phone: Serum or plasma cholesterol in HDL measurement (mass/volume)on 12-25-2021 Cholesterol in HDL [Mass/Vol] 46 mg/dL >40 [facility] Work Phone: [phone] Comment on above: The drugs N-Acetylcy steine and Metamizole may falsely depress this assay. Reference Range HDL <40 mg/dL Low HDL Cholesterol HDL >or= 60 mg/dL High HDL Cholesterol Serum or plasma cholesterol in VLDL measurement (mass/volume)on 12-25-2021 Cholesterol in VLDL [Mass/Vol] 23 mg/dL 5-40 [facility] Work Phone: Serum or plasma creatinine m easurement (mass/volume)on 12-25-2021 Creatinine [Mass/Vol] 0.54 mg/dL 0.55-1.02 [facility] Work Phone: Comment on above: The validity of the calculated GFR & GFRAA in patients over 70 years has not been determined. Clinical correlation is essential. Serum or plasma low density lipoprotein (LDL) cholesterol measurement (mass/volume)on 12-25-2021 Cholesterol in LDL [Mass/Vol] 44 mg/dL 0-130 [facility] Work Phone: [phone] Serum or plasma urea nitroge n measurement (mass/volume)on 12-25-2021 Urea nitrogen [Mass/Vol] 12 mg/dL 7-18 [facility] Work Phone: [phone] Thin prep Papanicolaou smear with manual screeningon 12-25-2021 Thin prep Papanicolaou smear with manual screening 12 U/L 15-37 [facility] Work Phone: [phone] Thin prep Papanicolaou smear with manual screening 2 5-15 [facility] Work Phone: [phone] Absolute lymphocyte counton 10-12-2021 Lymphocytes Auto (Unsp spec) [#/Vol] 0.84 10*3/uL 0.83-4.51 [facility] Work Phone: Basophil percentageon 2021 Basophils/100 WBC (Bld) 0.1 % 0-1 [facility] Work Phone: Chloride [Moles/Vol] 107 mmol/L 98-107 [facility] Work Phone: Eosinophils/100 WBC (Bld) 1.2 % 0-5 [facility] Work Phone: Glucose [Mass/Vol] 110 mg/dL 74-106 [facility] Work Phone: Comment on above: Fasting Glucose resu lt from 100 to 125 mg/dL suggests IMPAIRED HOMEOSTASIS per A.D.A. criteria. Neutrophils (Bld) [#/Vol] 5.2 10*3/uL 2.0-7.7 [facility] Work Phone: Neutrophils/100 WBC (Bld) 77.9 % 47-70 [facility] Work Phone: Potassium [Moles/Vol] 4.5 mmol/L 3.5-5.1 [facility] Work Phone: Comment on above: Slight Hemolysis, Re sult may be falsely increased. Sodium [Moles/Vol] 140 mmol/L 136-145 [facility] Work Phone: WBC (Bld) [#/Vol] 6.7 10*3/uL 4.4-11.0 [facility] Work Phone: Blood erythrocytes count (nu mber/volume)on 10-12-2021 RBC (Bld) [#/Vol] 4.54 10*6/uL 4.2-5.4 [facility] Work Phone: Blood hemoglobin measurement (mass/volume)on 10-12-2021 Hemoglobin (Bld) [Mass/Vol] 13.5 g/dL 12.0-15.0 [facility] Work Phone: Blood lymphocytes/100 leukoc yteson 10-12-2021 Lymphocytes/100 WBC (Bld) 12.5 % 19-41 [facility] Work Phone: Blood monocytes/100 leukocyt eson 10-12-2021 Monocytes/100 WBC (Bld) 7.9 % 0-10 [facility] Work Phone: [phone] Blood platelet mean volumeon 10-12-2021 Platelet mean volume (Bld) [Entitic vol] 9.5 fL 6.2-12.0 [facility] Work Phone: [phone] Determination of erythrocyte mean corpuscular volume (MCV)on 10-12-2021 MCV (RBC) [Entitic vol] 92.7 fL 81-99 [facility] Work Phone: [phone] Hematocrit Auto (Bld) [Volum e fraction]on 10-12-2021 Hematocrit (Bld) [Volume fraction] 42.1 % 37-47 [facility] Work Phone: [phone] Laboratory - Chemistry and C hemistry - challengeon 10-12-2021 CO2 [Moles/Vol] 33.0 mmol/L 21.0-32.0 [facility] Work Phone: [phone] Urea nitrogen/Creatinine [Mass ratio] 26.6 mg/mg 10-20 [facility] Work Phone: [phone] Laboratory - Hematology and Cell countson 10-12-2021 Erythrocyte distribution width (RBC) [Entitic vol] 42.5 fL 35.1-43.9 [facility] Work Phone: [phone] Erythrocyte distribution width (RBC) [Ratio] 12.6 % 11.6-14.6 [facility] Work Phone: [phone] Immature granulocytes/100 WBC (Bld) 0.400 % 0.0-0.9 [facility] Work Phone: [phone] Comment on above: IG% - Immature Granu locytes (promyelocytes, myelocytes and metamyelocytes) > 1% indicates that a LEFT SHIFT is Present. MCH (RBC) [Entitic mass] 29.7 pg 27.0-32.0 [facility] Work Phone: [phone] Nucleated RBC/100 WBC (Bld) [Ratio] 0 % 0-5 [facility] Work Phone: [phone] MCHC Auto (RBC) [Mass/Vol]on 10-12-2021 MCHC (RBC) [Mass/Vol] 32.1 g/dL 32-36 [facility] Work Phone: No Panel Informationon 10-12 Troponin I High Sensitivity 13 pg/mL 3.0-54.0 [facility] Work Phone: Comment on above: Please Note: New Vanessa t Units and Gender Specific Reference Ranges. For more information see Policy Stat Procedure [place] High Sensitivity Troponin (TNIH) and attachments. Estimated Creatinine Clearance Calc 73.85 ml/min [facility] Work Phone: Estimated GFR (MDRD) Amer 134 mL/min >60 [facility] Work Phone: Comment on above: GFR Calc Estimated GFR (MDRD) Non-Af Amer 111 mL/min >60 [facility] Work Phone: Comment on above: Non- GFR Calc Platelets bldon 10-12-2021 Platelets (Bld) [#/Vol] 209 10*3/uL 150-450 [facility] Work Phone: Serum or plasma calcium aaron urement (mass/volume)on 10-12-2021 Calcium [Mass/Vol] 10.1 mg/dL 8.5-10.1 [facility] Work Phone: Serum or plasma creatinine m easurement (mass/volume)on 10-12-2021 Creatinine [Mass/Vol] 0.56 mg/dL 0.55-1.02 [facility] Work Phone: Comment on above: The validity of the calculated GFR & GFRAA in patients over 70 years has not been determined. Clinical correlation is essential. Serum or plasma urea nitroge n measurement (mass/volume)on 10-12-2021 Urea nitrogen [Mass/Vol] 15 mg/dL 7-18 [facility] Work Phone: Thin prep Papanicolaou smear with manual screeningon 10-12-2021 Thin prep Papanicolaou smear with manual screening 0 5-15 [facility] Work Phone: Basophil percentageon 2021 Bilirubin [Mass/Vol] 0.60 mg/dL 0.20-1.00 [facility] Work Phone: [phone] Comment on above: For patients on eltr ombopag therapy, use of Dimension [place] TBIL is not recommended. Cholesterol [Mass/Vol] 109 mg/dL <200 [facility] Work Phone: [phone] Comment on above: <200 mg/dL Desirable 200-240 mg/dL Borderline >240 mg/dL High Risk Protein [Mass/Vol] 6.3 g/dL 6.4-8.2 [facility] Work Phone: [phone] Triglyceride [Mass/Vol] 139 mg/dL [facility] Work Phone: [phone] Comment on above: The drugs N-Acetylcy steine and Metamizole may falsely depress this assay.Serum Triglycerides Reference Interval Normal <150 mg/dL Borderline high 150 - 199 mg/dL High 200 - 499 mg/dL Very High > or = 500 mg/dL Direct bilirubinon 2 Bilirubin.direct [Mass/Vol] 0.19 mg/dL 0.00-0.30 [facility] Work Phone: [phone] Laboratory - Chemistry and C hemistry - challengeon 05-30-2021 ALP [Catalytic activity/Vol] 101 U/L 45-117 [facility] Work Phone: [phone] ALT [Catalytic activity/Vol] 20 U/L 13-56 [facility] Work Phone: [phone] Globulin (S) [Mass/Vol] 3.2 g/dL 2.2-4.2 [facility] Work Phone: [phone] Serum or plasma albumin aaron urement (mass/volume)on 05-30-2021 Albumin [Mass/Vol] 3.1 g/dL 3.2-5.0 [facility] Work Phone: [phone] Serum or plasma cholesterol in HDL measurement (mass/volume)on 05-30-2021 Cholesterol in HDL [Mass/Vol] 41 mg/dL [facility] Work Phone: [phone] Comment on above: The drugs N-Acetylcy steine and Metamizole may falsely depress this assay. Reference Range HDL <40 mg/dL Low HDL Cholesterol HDL >or= 60 mg/dL High HDL Cholesterol Serum or plasma cholesterol in VLDL measurement (mass/volume)on 05-30-2021 Cholesterol in VLDL [Mass/Vol] 28 mg/dL 5-40 [facility] Work Phone: Serum or plasma low density lipoprotein (LDL) cholesterol measurement (mass/volume)on 05-30-2021 Cholesterol in LDL [Mass/Vol] 40 mg/dL 0-130 [facility] Work Phone: Thin prep Papanicolaou smear with manual screeningon 05-30-2021 Thin prep Papanicolaou smear with manual screening 13 U/L 15-37 [facility] Work Phone: Lab Report: Basic Metabolic Profile (BMP)on 10-28-2016 Anion gap 4 mmol/L Low 5-15 [facility] [employer] Work Phone: [phone] Anion gap molar conc 4 mmol/L Low 5-15 [facility] Work Phone: [phone] BUN/Creatinine Ratio 17.8 RATIO Invalid Interpretation Code 10-20 [facility] Work Phone: [phone] Calcium 9.8 mg/dL Invalid Interpretation Code 8.5-10.1 [facility] [employer] Work Phone: [phone] Chloride 107 mmol/L Invalid Interpretation Code 98-107 [facility] Work Phone: [phone] CO2 31.0 mmol/L Invalid Interpretation Code 21.0-32.0 [facility] Work Phone: [phone] CO2 ppres (BldV) 31.0 mmol/L 21.0-32.0 [facility] Work Phone: [phone] Creatinine 0.62 mg/dL Invalid Interpretation Code 0.55-1.02 [facility] [employer] Work Phone: [phone] eGFR (non-black) 122 mL/min/{1.73_m2} Invalid Interpretation Code >60 [facility] Work Phone: [phone] eGFR (non-black) 101 mL/min/{1.73_m2} Invalid Interpretation Code >60 [facility] [employer] Work Phone: [phone] EST GFR - AA 122 mL/min >60 [facility] Work Phone: [phone] Glucose 98 mg/dL Invalid Interpretation Code 70-110 [facility] Work Phone: [phone] Glucose mass conc 98 mg/dL 70-110 [facility] Work Phone: [phone] Potassium 4.4 mmol/L Invalid Interpretation Code 3.5-5.1 [facility] Work Phone: [phone] Sodium 142 mmol/L Invalid Interpretation Code 136-145 [facility] Work Phone: [phone] Urea nitrogen 11 mg/dL Invalid Interpretation Code 7-18 [facility] Work Phone: [phone] Office Visit: [facility] 08-27-19 Fall risk assessment No Invalid Interpretation Code [facility] Work Phone: [phone] Office Visiton 11-27-2015 Documentation of current medications (procedure) Done Invalid Interpretation Code [facility] Work Phone: [phone] Protein mass conc Done [facility] Work Phone: [phone] Clinical Lists Update: Prelo rouge mixer 11-23-2015 Left ventricular Ejection fraction 55 % Invalid Interpretation Code [facility] Work Phone: [phone] Clinical Lists Update: Prelo rouge mixer 10-26-2015 Alanine aminotransferase (ALT) 17 U/L Invalid Interpretation Code [facility] [employer] Work Phone: [phone] Albumin 2.8 g/dL Low [facility] Work Phone: [phone] Alkaline phosphatase (ALP) 121 U/L Invalid Interpretation Code [facility] Work Phone: [phone] ALP enzyme act/vol (Bld) 121 U/L [facility] Work Phone: [phone] Anion gap 6 mmol/L Invalid Interpretation Code [facility] Work Phone: [phone] Anion gap molar conc 6 mmol/L [facility] Work Phone: [phone] Aspartate aminotransferase (AST) 13 U/L Low [facility] Work Phone: [phone] Bilirubin (total) 0.60 mg/dL Invalid Interpretation Code [facility] Work Phone: [phone] BUN/Creatinine Ratio 18.2 mg/mg Invalid Interpretation Code [facility] Work Phone: [phone] Calcium 9.1 mg/dL Invalid Interpretation Code [facility] Work Phone: [phone] Chloride 105 mmol/L Invalid Interpretation Code [facility] Work Phone: [phone] Cholesterol 91 mg/dL Invalid Interpretation Code [facility] Work Phone: [phone] CO2 27.0 mmol/L Invalid Interpretation Code [facility] Work Phone: [phone] CO2 ppres (BldV) 27.0 mmol/L [facility] Work Phone: [phone] Creatinine 0.55 mg/dL Invalid Interpretation Code [facility] Work Phone: [phone] Globulin 3.3 g/dL Invalid Interpretation Code [facility] Work Phone: [phone] Globulin mass conc (S) 3.3 g/dL [facility] Work Phone: [phone] Glucose 102 mg/dL Invalid Interpretation Code [facility] Work Phone: [phone] Glucose mass conc 102 mg/dL [facility] Work Phone: [phone] HDL Cholesterol 36 mg/dL Low [facility] Work Phone: [phone] LDL Cholesterol 32 mg/dL Invalid Interpretation Code [facility] Work Phone: [phone] Potassium 3.8 mmol/L Invalid Interpretation Code [facility] Work Phone: [phone] Protein 6.1 g/dL Low [facility] Work Phone: [phone] Sodium 138 mmol/L Invalid Interpretation Code [facility] Work Phone: [phone] Triglyceride 116 mg/dL Invalid Interpretation Code [facility] Work Phone: [phone] Urea nitrogen 10 mg/dL Invalid Interpretation Code [facility] Work Phone: [phone] very low density lipoproteins 23 mg/dL Invalid Interpretation Code [facility] Work Phone: [phone] Clinical Lists Update: Prelo rouge mixer 10-25-2015 Erythrocyte distribution width Ratio (RBC) 14.3 % [facility] Work Phone: [phone] Erythrocytes (RBC) 4.74 10*6/uL Invalid Interpretation Code [facility] Work Phone: [phone] Hematocrit (HCT) 40.1 % Invalid Interpretation Code [facility] Work Phone: [phone]) Hematocrit Volume Fraction (Bld) 40.1 % [facility] Work Phone: [phone]) Hemoglobin (HGB) 12.5 g/dL Invalid Interpretation Code [facility] Work Phone: [phone]) MCH 26.4 pg Low [facility] Work Phone: [phone]) MCH Entitic mass (RBC) 26.4 pg Low [facility] Work Phone: [phone]) MCHC 31.2 g/dL Low [facility] Work Phone: [phone]) MCHC mass conc (RBC) 31.2 g/dL Low [facility] Work Phone: [phone]) MCV 84.6 fL Invalid Interpretation Code [facility] Work Phone: [phone]) MCV Entitic volume (RBC) 84.6 fL [facility] Work Phone: [phone]) Platelet mean volume Entitic volume (Bld) 9.3 fL [facility] Work Phone: [phone]) Platelets 212 10*3/mm3 Invalid Interpretation Code [facility] Work Phone: 1) Platelets #/vol (Bld) 212 10*3/mm3 [facility] Work Phone: [phone]) PMV by Gabe 9.3 fL Invalid Interpretation Code [facility] Work Phone: 1) RBC #/vol (Bld) 4.74 10*6/uL [facility] Work Phone: 1) RDW-CA 14.3 % Invalid Interpretation Code [facility] Work Phone: 1) WBC #/vol (Bld) 6.4 10*3/uL [facility] Work Phone: 1) WBC (Leukocytes) 6.4 10*3/uL Invalid Interpretation Code [facility] Work Phone: [phone] Lab Report: Liver Profileon 06-25-2015 Bilirubin (direct) 0.12 mg/dL Invalid Interpretation Code 0.00-0.30 [facility] Work Phone: [phone] Globulin 3.9 g/dL High 2.3-3.5 [facility] Work Phone: [phone] Globulin mass conc (S) 3.9 g/dL High 2.3-3.5 [facility] Work Phone: [phone] Office Visit: [facility] 03-28-19 16 Tobacco smoking status MIIS Never smoker [facility] Work Phone: [phone] Tobacco use [facility] Never smoker Invalid Interpretation Code [facility] Work Phone: [phone] Office Visit: [facility] 03-01-20 14 cardiac risk group C Invalid Interpretation Code [facility] [employer] Work Phone: [phone] General cardiovascular disease 10Y risk [#] [place]ost[place] N/A Invalid Interpretation Code [facility] [employer] Work Phone: [phone] Tobacco smoking status [facility] Never Invalid Interpretation Code [facility] Work Phone: [phone] Replaced Document: [place] 03-01-2014 EKG QRS axis -32 deg [facility] [employer] Work Phone: [phone] electrocardiogram interpretation Sinus Rhythm -RSR(V1) -nondiagnostic. PROBABLY NORMAL Invalid Interpretation Code [facility] [employer] Work Phone: [phone] GE use only - for [employer] import when terms are not otherwise specified 406 ms Invalid Interpretation Code [facility] Work Phone: [phone] Interpretation Sinus Rhythm -RSR(V1) -nondiagnostic. PROBABLY NORMAL [facility] [employer] Work Phone: [phone] P [place] 60 deg [facility] Work Phone: [phone] P wave axis, electrocardiogram 60 deg Invalid Interpretation Code [facility] Work Phone: [phone] NV Interval 132 ms [facility] [employer] Work Phone: [phone] NV interval, electrocardiogram 132 ms Invalid Interpretation Code [facility] Work Phone: [phone] Pulse (Heart Rate) 73 /min Invalid Interpretation Code [facility] Work Phone: [phone] QRS axis, electrocardiogram -32 deg Invalid Interpretation Code [facility] Work Phone: [phone] QRS Duration 102 ms [facility] Work Phone: [phone] QRS duration, electrocardiogram 102 ms Invalid Interpretation Code [facility] Work Phone: [phone] QT Interval new path ms [facility] Work Phone: [phone] QT interval, electrocardiogram new path ms Invalid Interpretation Code [facility] Work Phone: [phone] QTc [place] 406 ms [facility] Work Phone: [phone] T [place] 10 deg [facility] Work Phone: [phone] T wave axis, electrocardiogram 10 deg Invalid Interpretation Code [facility] Work Phone: [phone] Lab Report: TROPon 2 Troponin I ng/mL Normal <0.06 [facility] Work Phone: [phone] Vital Signs Date Time Vital Sign Value Performing Clinician Faci lity 09-05-2024 16:01-0400 Body height 149.[address] Lilly Fletcher MD Work Phone: [facility] 09-05-2024 16:01-0400 Body mass index (BMI) [Ratio] 42 kg/m2 Dr. Lilly Fletcher MD Work Phone: [facility] 09-05-2024 16:01-0400 Body weight 94.[address] Lilly Fletcher MD Work Phone: [facility] 09-05-2024 16:01-0400 Diastolic blood pressure 82 mm[Hg] Dr. Lilly Fletcher MD Work Phone: [facility] 09-05-2024 16:01-0400 Heart rate 66 /min Dr. Lilly Fletcher MD Work Phone: [facility] 09-05-2024 16:01-0400 Respiratory rate 18 /min Dr. Lilly Fletcher MD Work Phone: [facility] 09-05-2024 16:01-0400 Systolic blood pressure 142 mm[Hg] Dr. Lilly Fletcher MD Work Phone: 6(526)160-009061 [place] [address] 08-15-2024 15:31-0400 Body height 149.[address] Lilly Fletcher MD Work Phone: [phone])359-418261 [place] [address] 08-15-2024 15:31-0400 Body mass index (BMI) [Ratio] 41.3 kg/m2 Dr. Lilly Fletcher MD Work Phone: 0(433)501-392657 [place] [address] 08-15-2024 15:31-0400 Body weight 92.[address] Lilly Fletcher MD Work Phone: [phone])411-245357 [place] [address] 08-15-2024 15:31-0400 Diastolic blood pressure 66 mm[Hg] Dr. Lilly Fletcher MD Work Phone: [phone])541-771357 [place] [address] 08-15-2024 15:31-0400 Heart rate 74 /min Dr. Lilly Fletcher MD Work Phone: 5(535)216-041461 [place] [address] 08-15-2024 15:31-0400 Respiratory rate 20 /min Dr. Lilly Fletcher MD Work Phone: 4([phone])071-734057 [place] [address] 08-15-2024 15:31-0400 Systolic blood pressure 142 mm[Hg] Dr. Lilly Fletcher MD Work Phone: [phone])935-264361 [place] [address] 08-02-2024 06:53-0400 Body temperature 97.8 [degF] Dr. Lilly Fletcher MD Work Phone: [phone])961-937061 [place] [address] 08-02-2024 06:53-0400 Diastolic blood pressure 62 mm[Hg] Dr. Lilly Fletcher MD Work Phone: 1(975)339-096161 [place] [address] 08-02-2024 06:53-0400 Heart rate 67 /min Dr. Lilly Fletcher MD Work Phone: 7(869)406-864561 [place] [address] 08-02-2024 06:53-0400 Respiratory rate 18 /min Dr. Lilly Fletcher MD Work Phone: [phone])710-931961 [place] [address] 08-02-2024 06:53-0400 SaO2% (BldA) [Mass fraction] 95 % Dr. Lilly Fletcher MD Work Phone: [facility] 08-02-2024 06:53-0400 Systolic blood pressure 140 mm[Hg] Dr. Lilly Fletcher MD Work Phone: 5(768)519-268661 [place] [address] 08-02-2024 03:44-0400 Body height 149.[address] Lilly Fletcher MD Work Phone: [phone])759-643261 [place] [address] 08-02-2024 03:44-0400 Body mass index (BMI) [Ratio] 42.5 kg/m2 Dr. Lilly Fletcher MD Work Phone: 4(902)080-540157 [place] [address] 08-02-2024 03:44-0400 Body weight 95.[address] Lilly Fletcher MD Work Phone: 5(242)903-171557 [place] [address] 06-18-2024 21:58-0400 Body temperature 98.1 [degF] Dr. Lilly Fletcher MD Work Phone: [phone])751-045457 [place] [address] 06-18-2024 21:58-0400 Diastolic blood pressure 60 mm[Hg] Dr. Lilly Fletcher MD Work Phone: 9(946)492-658957 [place] [address] 06-18-2024 21:58-0400 Heart rate 91 /min Dr. Lilly Fletcher MD Work Phone: 4(534)411-023257 [place] [address] 06-18-2024 21:58-0400 Respiratory rate 16 /min Dr. Lilly Fletcher MD Work Phone: [phone])062-971461 [place] [address] 06-18-2024 21:58-0400 SaO2% (BldA) [Mass fraction] 97 % Dr. Lilly Fletcher MD Work Phone: 9(498)074-329261 [place] [address] 06-18-2024 21:58-0400 Systolic blood pressure 116 mm[Hg] Dr. Lilly Fletcher MD Work Phone: 7(493)953-970914 [address] 06-18-2024 20:34-0400 Body height 149.[address] Lilly Fletcher MD Work Phone: 3(379)477-725361 [place] [address] 06-18-2024 20:34-0400 Body mass index (BMI) [Ratio] 43.2 kg/m2 Dr. Lilly Fletcher MD Work Phone: [facility] 06-18-2024 20:34-0400 Body weight 97.[address] Lilly Fletcher MD Work Phone: [facility] 03-25-2023 16:24-0500 Body height 149.[address] Lilly Fletcher Work Phone: 0(714)105-753961 [place] [address] 03-25-2023 16:24-0500 Body mass index (BMI) [Ratio] 43 kg/m2 Dr. Lilly Fletcher Work Phone: 4(992)490-415261 [place] [address] 03-25-2023 16:24-0500 Body temperature 97.8 [degF] Dr. Lilly Fletcher Work Phone: 8(206)759-846561 [place] [address] 03-25-2023 16:24-0500 Body weight 96.[address] Lilly Fletcher Work Phone: [facility] 03-25-2023 16:24-0500 Diastolic blood pressure 90 mm[Hg] Dr. Lilly Fletcher Work Phone: 9(606)110-705461 [place] [address] 03-25-2023 16:24-0500 Heart rate 82 /min Dr. Lilly Fletcher Work Phone: 9(858)784-648561 [place] [address] 03-25-2023 16:24-0500 Respiratory rate 20 /min Dr. Lilly Fletcher Work Phone: [facility] 03-25-2023 16:24-0500 SaO2% (BldA) [Mass fraction] 95 % Dr. Lilly Fletcher Work Phone: [facility] 03-25-2023 16:24-0500 Systolic blood pressure 152 mm[Hg] Dr. Lilly Fletcher Work Phone: [facility] 02-02-2023 10:11-0500 Body height 149.[address] Lilly Fletcher Work Phone: 7(017)890-272961 [place] [address] 02-02-2023 10:11-0500 Body mass index (BMI) [Ratio] 43.8 kg/m2 Dr. Lilly Fletcher Work Phone: [facility] 02-02-2023 10:11-0500 Body weight 98.[address] Lilly Fletcher Work Phone: [facility] 02-02-2023 10:11-0500 Diastolic blood pressure 73 mm[Hg] Dr. Lilly Fletcher Work Phone: [facility] 02-02-2023 10:11-0500 Heart rate 87 /min Dr. Lilly Fletcher Work Phone: [facility] 02-02-2023 10:11-0500 Respiratory rate 18 /min Dr. Lilly Fletcher Work Phone: [facility] 02-02-2023 10:11-0500 SaO2% (BldA) [Mass fraction] 94 % Dr. Lilly Fletcher Work Phone: [facility] 02-02-2023 10:11-0500 Systolic blood pressure 137 mm[Hg] Dr. Lilly Fletcher Work Phone: [facility] 10-31-2021 10:51-0400 Body height 147.[address] Lilly Fletcher Work Phone: [facility] Work Phone: 10-31-2021 10:51-0400 Body mass index (BMI) [Ratio] 44.5 kg/m2 Dr. Lilly Fletcher Work Phone: [facility] Work Phone: 10-31-2021 10:51-0400 Body weight 96.[address] Lilly Fletcher Work Phone: [facility] Work Phone: 10-31-2021 10:51-0400 Diastolic blood pressure 90 mm[Hg] Dr. Lilly Fletcher Work Phone: [facility] Work Phone: 10-31-2021 10:51-0400 Heart rate 67 /min Dr. Lilly Fletcher Work Phone: [facility] Work Phone: 10-31-2021 10:51-0400 Respiratory rate 20 /min Dr. Lilly Fletcher Work Phone: [facility] Work Phone: 10-31-2021 10:51-0400 SaO2% (BldA) [Mass fraction] 94 % Dr. Lilly Fletcher Work Phone: [facility] Work Phone: 10-31-2021 10:51-0400 Systolic blood pressure 157 mm[Hg] Dr. Lilly Fletcher Work Phone: [facility] Work Phone: 10-12-2021 18:12-0400 Diastolic blood pressure 98 mm[Hg] [facility] Work Phone: 10-12-2021 18:12-0400 Heart rate 66 /min [facility] Work Phone: 10-12-2021 18:12-0400 Respiratory rate 17 /min [facility] Work Phone: 10-12-2021 18:12-0400 SaO2% (BldA) [Mass fraction] 97 % [facility] Work Phone: 10-12-2021 18:12-0400 Systolic blood pressure 169 mm[Hg] [facility] Work Phone: 10-12-2021 13:21-0400 Body height 147.32 cm [facility] Work Phone: 10-12-2021 13:21-0400 Body mass index (BMI) [Ratio] 45.7 kg/m2 [facility] Work Phone: 10-12-2021 13:21-0400 Body temperature 98.1 [degF] [facility] Work Phone: 10-12-2021 13:21-0400 Body weight 99.3 kg [facility] Work Phone: 04-18-2021 07:35-0500 Body height 152.[address] Lilly Fletcher Work Phone: [facility] Work Phone: 04-18-2021 07:35-0500 Body mass index (BMI) [Ratio] 40.8 kg/m2 Dr. Lilly Fletcher Work Phone: [facility] Work Phone: 04-18-2021 07:35-0500 Body weight 95.[address] Lilly Fletcher Work Phone: [facility] Work Phone: 04-18-2021 07:35-0500 Diastolic blood pressure 84 mm[Hg] Dr. Lilly Fletcher Work Phone: [facility] Work Phone: 04-18-2021 07:35-0500 Heart rate 82 /min Dr. Lilly Fletcher Work Phone: [facility] Work Phone: 04-18-2021 07:35-0500 Respiratory rate 18 /min Dr. Lilly Fletcher Work Phone: [facility] Work Phone: 04-18-2021 07:35-0500 SaO2% (BldA) [Mass fraction] 95 % Dr. Lilly Fletcher Work Phone: [facility] Work Phone: 04-18-2021 07:35-0500 Systolic blood pressure 132 mm[Hg] Dr. Lilly Fletcher Work Phone: [facility] Work Phone: 10-28-2016 11:34-0400 BP Diastolic 108 mm[Hg] Nella Valerio [facility] Work Phone: 10-28-2016 11:34-0400 BP Systolic 150 mm[Hg] Harumi DeFinis [facility] Work Phone: 10-28-2016 11:34-0400 Pulse (Heart Rate) 76 /min Harumi DeFinis [facility] Work Phone: 10-28-2016 11:34-0400 Respiratory Rate 20 /min Harumi DeFinis [facility] Work Phone: 09-24-2016 11:42-0400 BP Diastolic 90 mm[Hg] Harumi DeFinis [facility] Work Phone: 09-24-2016 11:42-0400 BP Systolic 148 mm[Hg] Harumi DeFinis [facility] Work Phone: 09-24-2016 11:42-0400 Pulse (Heart Rate) 64 /min Harumi DeFinis [facility] Work Phone: 09-24-2016 11:42-0400 Respiratory Rate 20 /min Harumi DeFinis [facility] Work Phone: 09-08-2016 11:25-0400 BP Diastolic 90 mm[Hg] Harumi DeFinis [facility] Work Phone: 09-08-2016 11:25-0400 BP Systolic 160 mm[Hg] Harumi DeFinis [facility] Work Phone: 09-08-2016 11:25-0400 Pulse (Heart Rate) 72 /min Harumi DeFinis [facility] Work Phone: 09-08-2016 11:25-0400 Respiratory Rate 20 /min Harumi DeFinis [facility] Work Phone: 08-26-2016 11:40-0400 BMI (Body Mass Index) 42.65 kg/m2 Elie Davis MD [facility] Work Phone: 08-26-2016 11:40-0400 BP Diastolic 74 mm[Hg] Elie Davis MD [facility] Work Phone: 08-26-2016 11:40-0400 BP Systolic 160 mm[Hg] [facility] Work Phone: 08-26-2016 11:40-0400 Height 152.4 cm Elie Davis MD [facility] Work Phone: 08-26-2016 11:40-0400 Pulse (Heart Rate) 72 /min Elie Davis MD [facility] Work Phone: 08-26-2016 11:40-0400 Respiratory Rate 20 /min Elie Davis MD [facility] Work Phone: 08-26-2016 11:40-0400 Weight 99.07 kg Elie Davis MD [facility] Work Phone: 11-27-2015 15:03-0400 BSA (Body Surface Area) 1.95 m2 Elie Davis MD [facility] Work Phone: 03-01-2014 09:21-0500 Heart rate 73 /min Harumi Harrykatie [facility] Work Phone: Encounters Encounter Date Encounter Type Care Provider Facility Start: 09-05-2024 End: 09-05-2024 Patient encounter procedure Kale Ansari MISSILE TECHNICIAN-C -[facility] Work Phone: Start: 09-05-2024 End: 09-05-[address] Lilly Fletcher MD Work Phone: [facility] Start: 08-15-2024 End: 08-15-2024 Patient encounter procedure Kale Ansari MISSILE TECHNICIAN-C -[facility] Work Phone: Start: 08-15-2024 End: 08-15-[address] Lilly Fletcher MD Work Phone: [facility] Work Phone: Start: 08-02-2024 End: 08-02-2024 Emergency department patient visit Dr. Lilly Fletcher MD Work Phone: -Emergency Department Work Phone: Start: 06-18-2024 End: 06-18-2024 Emergency department patient visit Dr. Lilly Fletcher MD Work Phone: -Emergency Department Work Phone: Start: 10-07-2023 ambulatory Ginger Grace NP Facili ty:[facility] Start: 10-06-2023 ambulatory [place] Facility:[facility] Start: 10-06-2023 End: 10-06-2023 ambulatory Lilly Fletcher Facility:[facility] Start: 03-25-2023 End: 03-25-[address] Lilly Fletcher Work Phone: [facility] Work Phone: Start: 03-25-2023 End: 03-25-[address] Lilly Fletcher Work Phone: [facility] Work Phone: Start: 02-02-2023 End: 02-02-[address] Lilly Fletcher Work Phone: [facility] Work Phone: Start: 02-02-2023 End: 02-02-[address] Lilly Fletcher Work Phone: [facility] Work Phone: Start: 01-07-2022 End: 01-07-[address] Lilly Fletcher Work Phone: [facility] Work Phone: Start: 01-07-2022 End: 01-07-[address] Lilly Fletcher Work Phone: [facility] Start: 12-25-2021 End: 12-25-[address] Lilly Fletcher Work Phone: [facility] Work Phone: Start: 12-25-2021 End: 12-25-[address] Lilly Fletcher Work Phone: [facility] Start: 11-20-2021 Non-patient / Non-visit Dr. Bella Fletcher Work Phone: [facility] Start: 11-20-2021 End: 11-20-[address] Lilly Fletcher Work Phone: [facility] Work Phone: Start: 11-20-2021 End: 11-20-[address] [facility] Start: 11-07-2021 End: 11-07-[address] Lilly Fletcher Work Phone: [facility] Work Phone: Start: 11-07-2021 End: 11-07-[address] Lilly Fletcher Work Phone: [facility]Pulmonary Services/Neurology Start: 10-31-2021 End: 10-31-[address] Lilly Fletcher Work Phone: [facility] Start: 10-12-2021 End: 10-12-2021 Emergency department patient visit [facility]Emergency [facility] Start: 05-30-2021 End: 05-30-[address] Lilly Fletcher Work Phone: [facility] Start: 05-08-2021 Non-patient / Non-visit Dr. Bella Fletcher Work Phone: [facility] Start: 05-08-2021 End: 05-08-[address] [facility] Start: 04-18-2021 End: 04-18-[address] Lilly Fletcher Work Phone: [facility] Procedures Date Procedure Procedure Detail Performing Clinician Start: 08-02-2024 Urnls dip stick/tabl et reagent auto microscopy Dr. Lilly Fletcher MD Work Phone: Start: 08-02-2024 Plain chest X-ray Dr. Preston Fletcher MD Work Phone: Start: 08-02-2024 CT of head without contrast Dr. Lilly Fletcher MD Work Phone: Start: 08-02-[address] Lilly Fletcher MD Work Phone: Start: 06-18-[address] Lilly Fletcher MD Work Phone: Start: 03-25-[address] Lilly santana Work Phone: Start: 10-12-2021 Plain chest X-ray Start: 05-08-2021 Cardiovascular stres s test using pharmacologic stress agent Dr. Lilly Fletcher Work Phone: Start: 10-28-2016 End: 10-28-2016 Follow Up BP Check Elie Davis MD Start: 09-24-2016 End: 10-28-2016 *BMP Kale Ansari MISSILE TECHNICIAN Work Phone: Start: 09-24-2016 End: 09-24-2016 Follow Up BP Check Elie Davis MD Start: 08-26-2016 End: 09-08-2016 *BMP Kale Ansari MISSILE TECHNICIAN Work Phone: Start: 08-26-2016 End: 08-27-2016 ENGRAVER BLOCK Kale Ansari MISSILE TECHNICIAN Work Phone: Start: 08-26-2016 End: 08-27-2016 Follow Up Appt 6 months Kale Ansari MISSILE TECHNICIAN Work Phone: Start: 08-26-2016 End: 09-08-2016 Follow Up BP Check Kale Ansari MISSILE TECHNICIAN Work Phone: Start: 11-27-2015 End: 11-27-2015 Follow Up Appt 6 months Willis Lara Start: 11-27-2015 End: 11-27-2015 MMWillis Davis MD Start: 11-22-2015 End: 11-29-2015 Lipid panel [AGGREGATE] Vivien lopez PA-C Work Phone: Start: 06-15-2015 End: 06-25-2015 *Hepatic Function Panel Vivien lopez PA-C Work Phone: Start: 06-15-2015 End: 06-25-2015 Lipid panel [AGGREGATE] Vivien Willis Leobardo lopez PA-C Work Phone: Start: 03-28-2015 End: 03-28-2015 ENGRAVER BLOCK Vivien Haynes PA-C Work Phone: Start: 03-28-2015 [...] [AGGREGATE] Willis Lara Start: 03-01-2014 End: 03-01-2014 ENGRAVER BLOCK Vivien Haynes PA-C Work Phone: Start: 03-01-2014 End: 03-01-2014 Electrocardiogram, complete Vivien Talley PA-C Work Phone: Start: 03-01-2014 End: 03-01-2014 Follow Up Appt 6 months Vivien lopez PA-C Work Phone: Start: 10-31-2013 End: 11-24-2013 *Hepatic Function Panel Willis Laar Start: 10-31-2013 End: 11-24-2013 Lipid panel [AGGREGATE] Willis Lara Start: 07-20-2013 End: 02-03-2014 Echocardiography Elie Davis MD Start: 07-20-2013 End: 07-20-2013 Follow Up Appt 6 months Willis Lara Start: 07-20-2013 End: 07-20-2013 MM Elie Davis MD Start: 04-02-2013 End: 05-12-2013 *Hepatic Function Panel Willis Lara Start: 04-02-2013 End: 05-12-2013 Lipid panel [AGGREGATE] Willis Lara Start: 12-07-2012 End: 12-07-2012 ENGRAVER BLOCK Vivien Haynes PA-C Work Phone: Start: 12-07-2012 End: 12-07-2012 Echocardiography Vivien Haynes PA-C Work Phone: Start: 12-07-2012 End: 12-07-2012 Follow Up Appt 6 months Vivien lopez PA-C Work Phone: Start: 08-30-2012 End: 09-27-2012 *Hepatic Function Panel Willis Lara Start: 08-30-2012 End: 09-27-2012 Lipid panel [AGGREGATE] Willis Lara Start: 06-04-2012 End: 06-04-2012 Follow Up Appt 6 months Willis Lara Start: 06-04-2012 End: 06-04-2012 MMM Elie Davis MD Start: 03-03-2012 End: 03-24-2012 *Hepatic Function Panel Willis Lara Start: 03-03-2012 End: 03-24-2012 Lipid panel [AGGREGATE] Willis Lara Start: 09-23-2011 End: 10-03-2011 *Hepatic Function Panel Willis Lara Start: 09-23-2011 End: 10-03-2011 Lipid panel [AGGREGATE] Willis Lara Start: 08-13-2011 End: 08-13-2011 Follow Up Appt 6 months Willis Lara Plan of Treatment Date Care Activity Detail Author Start: 09-14-2024 ambulatory Ambulatory Facility:[facility] Start: 08-02-2024 [facility] Start: 08-02-2024 [facility] Start: 06-18-2024 End: 06-18-2024 [facility] Start: 10-12-2021 [facility] Work Phone: Start: 02-26-2017 End: 02-26-2017 Appointment Appointment [facility] Work Phone: Start: 11-11-2016 End: 11-11-2016 Appointment Appointment [facility] Work Phone: Start: 10-28-2016 End: 10-28-2016 Appointment Appointment [facility] Work Phone: Start: 10-28-2016 End: 10-28-2016 Follow Up BP Check Follow Up BP Check [facility] Work Phone: Start: 10-08-2016 End: 10-08-2016 Appointment Appointment [facility] Work Phone: Start: 09-24-2016 End: 09-24-2016 Appointment Appointment [facility] Work Phone: Start: 09-24-2016 End: 10-28-2016 *BMP *BMP [facility] Work Phone: Start: 09-24-2016 End: 09-24-2016 Follow Up BP Check Follow Up BP Check [facility] Work Phone: Start: 09-22-2016 End: 09-22-2016 Appointment Appointment [facility] Work Phone: Start: 09-08-2016 End: 09-08-2016 Appointment Appointment [facility] Work Phone: Start: 09-05-2016 End: 09-05-2016 Appointment Appointment [facility] Work Phone: Start: 08-27-2016 End: 08-27-2016 Appointment Appointment [facility] Work Phone: Start: 08-26-2016 End: 09-08-2016 *BMP *BMP [facility] Work Phone: Start: 08-26-2016 End: 08-27-2016 *Hepatic Function Panel *Hepatic Function Panel [facility] Work Phone: Start: 08-26-2016 End: 08-27-2016 ENGRAVER BLOCK ENGRAVER BLOCK [facility] Work Phone: Start: 08-26-2016 End: 08-27-2016 Follow Up Appt 6 months Follow Up Appt 6 months [facility] Work Phone: Start: 08-26-2016 End: 09-08-2016 Follow Up BP Check Follow Up BP Check [facility] Work Phone: Start: 08-26-2016 End: 08-27-2016 Lipid panel [AGGREGATE] *Lipid Profile CC PCP [facility] Work Phone: Start: 11-27-2015 End: 11-27-2015 Follow Up Appt 6 months Follow Up Appt 6 months [facility] Work Phone: Start: 11-27-2015 End: 11-27-2015 MMM MMM [facility] Work Phone: Start: 11-22-2015 End: 11-29-2015 Lipid panel [AGGREGATE] *Lipid Profile CC PCP [facility] Work Phone: Start: 06-15-2015 End: 06-25-2015 *Hepatic Function Panel *Hepatic Function Panel [facility] Work Phone: Start: 06-15-2015 End: 06-25-2015 Lipid panel [AGGREGATE] *Lipid Profile CC PCP [facility] Work Phone: Start: 03-28-2015 End: 03-28-2015 ENGRAVER BLOCK ENGRAVER BLOCK [facility] Work Phone: Start: 03-28-2015 End: 03-28-2015 Echocardiography Echocardiogram (complete) [facility] Work Phone: Start: 03-28-2015 End: 03-28-2015 Follow Up Appt 6 months Follow Up Appt 6 months [facility] Work Phone: Start: 11-29-2014 End: 12-14-2014 *Hepatic Function Panel *Hepatic Function Panel [facility] Work Phone: Start: 11-29-2014 End: 12-14-2014 Lipid panel [AGGREGATE] *Lipid Profile CC PCP [facility] Work Phone: Start: 09-12-2014 End: 09-12-2014 Follow Up Appt 6 months Follow Up Appt 6 months [facility] Work Phone: Start: 09-12-2014 End: 09-12-2014 MMM MMM [facility] Work Phone: Start: 05-24-2014 End: 05-29-2014 *Hepatic Function Panel *Hepatic Function Panel [facility] Work Phone: Start: 05-24-2014 End: 05-29-2014 Lipid panel [AGGREGATE] *Lipid Profile CC PCP [facility] Work Phone: Start: 03-01-2014 End: 03-01-2014 ENGRAVER BLOCK ENGRAVER BLOCK [facility] Work Phone: Start: 03-01-2014 End: 03-01-2014 Electrocardiogram, complete EKG (In office) [facility] Work Phone: Start: 03-01-2014 End: 03-01-2014 Follow Up Appt 6 months Follow Up Appt 6 months [facility] Work Phone: Start: 10-31-2013 End: 11-24-2013 *Hepatic Function Panel *Hepatic Function Panel [facility] Work Phone: Start: 10-31-2013 End: 11-24-2013 Lipid panel [AGGREGATE] *Lipid Profile CC PCP [facility] Work Phone: Start: 07-20-2013 End: 07-20-2013 Echocardiography Echocardiogram (complete) [facility] Work Phone: Start: 07-20-2013 End: 07-20-2013 Follow Up Appt 6 months Follow Up Appt 6 months [facility] Work Phone: Start: 07-20-2013 End: 07-20-2013 MMM MMM [facility] Work Phone: Start: 04-02-2013 End: 05-12-2013 *Hepatic Function Panel *Hepatic Function Panel [facility] Work Phone: Start: 04-02-2013 End: 05-12-2013 Lipid panel [AGGREGATE] *Lipid Profile CC PCP [facility] Work Phone: Start: 12-07-2012 End: 12-07-2012 ENGRAVER BLOCK ENGRAVER BLOCK [facility] Work Phone: Start: 12-07-2012 End: 12-07-2012 Follow Up Appt 6 months Follow Up Appt 6 months [facility] Work Phone: Start: 08-30-2012 End: 09-27-2012 *Hepatic Function Panel *Hepatic Function Panel [facility] Work Phone: Start: 08-30-2012 End: 09-27-2012 Lipid panel [AGGREGATE] *Lipid Profile [facility] Work Phone: Start: 06-04-2012 End: 06-04-2012 Follow Up Appt 6 months Follow Up Appt 6 months [facility] Work Phone: Start: 06-04-2012 End: 06-04-2012 MMM MMM [facility] Work Phone: Start: 03-03-2012 End: 03-24-2012 *Hepatic Function Panel *Hepatic Function Panel [facility] Work Phone: Start: 03-03-2012 End: 03-24-2012 Lipid panel [AGGREGATE] *Lipid Profile [facility] Work Phone: Start: 09-23-2011 End: 10-03-2011 *Hepatic Function Panel *Hepatic Function Panel [facility] Work Phone: Start: 09-23-2011 End: 10-03-2011 Lipid panel [AGGREGATE] *Lipid Profile [facility] Work Phone: Start: 08-13-2011 End: 08-13-2011 Follow Up Appt 6 months Follow Up Appt 6 months [facility] Work Phone: Cardiac event recording [facility] Patient Education [facility] Work Phone: Patient referral [facility] Work Phone: US Carotid arteries [facility] US Heart [facility] Work Phone: [facility] Payers Date Payer Category Payer Self-pay [id number] 2023 Medicare [id number] Medicare [id number] Private Health Insurance [id number] Unknown [id number] [id number] Unknown [id number] [id number] [id number] Unknown [id number] [id number] [id number] Unknown [id number] [id number] [id number] Unknown [id number] 2.16.8 [id number] Unknown [id number] 2.16.8 [id number] Unknown [id number] [id number] [id number] Unknown [id number] [id number] [id number] Social History Date Type Detail Facility Start: 04-18-2021 End: 03-25-2023 Tobacco smoking status NHIS Unknown if ever smoked [facility] Start: 07-11-2020 None [facility] Start: 10-25-2015 With Family [facility] Start: 07-11-2020 Non-smoker [facility] Start: 1945 Sex Assigned At Female [facility] Start: 06-18-2024 End: 08-02-2024 Tobacco smoking status NHIS Never smoked tobacco (finding) [facility] Start: 06-18-2024 Sex Female (finding) [facility] Mental Status Date Assessment Result Facility 08-02-2024 Cognitive function Level Of Cons ciousness Awake;Alert;Appropriate;Follow s Commands [facility] Work Phone: 10-12-2021 Cognitive function Voice/Name [facility] Work Phone: Clinical Notes 06-18-2024 to 08-15-2024 Note Date & Type Note Facility 08-15-2024 Evaluation note Diagnosis Onset Date Resolution Dizziness acute August 15 3:23pm ANTHONY (dyspnea on exertion) acute August 15, 2024 3:23pm Atherosclerotic heart disease of [place] coronary artery without angina pectoris chronic August 15, 2024 3:23pm Essential (primary) hypertension chronic August 15, 2024 3:23pm Hyperlipidemia chronic August 15, 2024 3:23pm Dizziness acute September 05, 2024 3:54pm ANTHONY (dyspnea on exertion) acute September 05, 2024 3:54pm Atherosclerotic heart disease of [place] coronary artery without angina pectoris chronic September 05, 2024 3:54pm Essential (primary) hypertension chronic September 05, 2024 3:54pm Hyperlipidemia chronic September 05, 2024 3:54pm [facility] Work Phone: 1(427) 776-809406-03-2025 Discharge summary [facility] Medical Records Department [address] [place] [address] Emergency Department Summary 08/02/24 MR#: [id number] Acct: [id number] Name: AYAN CARRILLO Rep #:[id number] : [id number] 79 From: Jaylen Solomon PCP: Dr. Lilly Fletcher MD Status:REG ER Location: ED HPI History of Present Illness Chief Complaint: Weakness [facility] Medical History (Updated 08/02/24 @ 06:[address] Jaylen Jack, DO) Myocardial infarction Obesity Essential (primary) hypertension Atherosclerotic heart disease of [place] coronary artery without angina pectoris Hyperlipidemia GERD (gastroesophageal reflux disease) Osteoarthritis Morbid obesity with BMI of 40.0-44.9, adult Home Medications ?Medication ?Instructions ?Recorded ?Last Taken ?Type aspirin 81 mg chewable tablet 81 mg PO QHS 10/25/15 History potassium gluconate 595 mg (99 mg) 595 mg PO DAILY PRN for low levels 09/09/18 Unknown History tablet carvedilol 25 mg tablet 25 mg PO BID Dose has been 0 08/10/23 Unknown Rx increased #180 tabs nitroglycerin 0.4 mg sublingual 0.4 mg sublingual Q5M PRN Chest 08/10/23 Unknown Rx tablet Pain #25 tabs furosemide 40 mg tablet 40 mg PO DAILY this is a dos e 08/31/23 Unknown Rx increase #90 tabs lisinopril 20 mg tablet 20 mg PO BID #180 tabs 02/08 Unknown Rx atorvastatin 40 mg tablet 40 mg PO QHS #90 tabs Unknown Rx omeprazole 20 mg capsule,delayed 20 mg PO DAILY #90 ca ps 08/01/24 Unknown Rx release Allergy/AdvReac Type Severity Reaction Status Date / Time hydrochlorothiazide AdvReac Intermediate Constipatio Verified 08/02/24 03:43 n Family History Father CAD (coronary artery disease) Mother CHF (congestive heart failure) Sister Hypertension Surgical History History of cholecystectomy History of left heart catheterization (06/04/08) History of coronary angioplasty (09/20/07) History of laparoscopic cholecystectomy History of total hysterectomy Social History Smoking Status: Never smoker alcohol intake: never substance use type: does not use EXAM Physical Exam Const Vital Signs: 08/02/24 03:44 08/02/24 03:44 08/02/24 03:48 Temperature 97.8 F 97.8 F Temperature Source Oral Oral Pulse Rate 71 70 Respiratory Rate 20 H 20 H Respiratory Effort Normal Respiratory Pattern Normal Blood Pressure 131/111 H 134/111 H Blood Pressure Mean 117 118 Pulse Ox 95 95 Oxygen Delivery Method Room Air Room Air 08/02/24 04:48 08/02/24 05:00 08/02/24 06:00 Temperature 97.8 F 97.8 F 97.8 F Temperature Source Oral Oral Oral Pulse Rate 69 63 72 Respiratory Rate 18 18 18 Respiratory Effort Respiratory Pattern Blood Pressure 131/71 H 141/77 H 137/112 H Blood Pressure Mean 91 98 120 Pulse Ox 94 97 98 Oxygen Delivery Method Room Air Room Air Room Air MDM MDM MDM Narrative Medical decision making narrative: HISTORY OF PRESENT ILLNESS: Chief complaint: Weakness, dizziness, lightheadedness Atrial female history of of CAD, NC status post stent, hypertension, hyperlipidemia presents with multiple symptoms with diffuse weakness mostly in the lower extremities. Denies chest pain, shortnessof breath. Denies cough fever chills. Denies headache or recent falls. Denies syncope. Has abdominal pain. Denies urinary frequency urgency or dysuria. Denies diarrhea melena hematochezia. Denies focal weakness REVIEW OF SYSTEMS: Pertinent positives: Diffuse weakness, dizziness and lightheadedness Pertinent negatives: as per HPI PHYSICAL EXAM: Nursing triage notes reviewed, Vital signs reviewed Constitutional: please see [facility] HENT: MMM Eyes: Pupils equal round and reactive to light, Extraocular muscles intact Neck: No stridor, no JVD, full neck ROM Lungs: Clear to auscultation, No wheezing or rales. No increased work of breathing, no conversational dyspnea, no accessory muscle use, no nasal flaring. No respiratory distress noted Heart: Regular rate and rhythm, No murmurs, No rubs and No gallops, 2+ distal pulses (radial, femoral, posterior tibial) in all extremities Abdomen: Soft, there is no tenderness, rigidity, rebound or guarding, no obviousperitoneal signs, no palpable pulsatile abdominal masses, no auscultated abdominal bruit : No CVAT Extremities: No edema Neuro: No new focal neurological deficits, cranial nerves II through XII intact,5/5 strength in allpresent extremities. Intact sensation to light touch in all present extremities, 2+ reflexes bilateral patella tendons. Skin: No rash or lesions noted MEDICAL DECISION MAKING: Chief Complaint: please see HPI External records reviewed: Reviewed prior echocardiogram from 2023 showed ejection fraction 65%, stage I diastolic dysfunction but no regional wall motionabnormalities Factors affecting care: As per HPI Social determinants of health: none History obtained from others: Family Consults: none [facility] Narrative: Patient was initially hemodynamically stable, afebrile nontoxic-appearing saturating 95% room air. Exam without focal neurologic deficits. No cardiopulmonary abnormalities. No abdominal tenderness noted on initial exam I considered the following differential diagnosis: ICH, mass, arrhythmia, anemia, electro disturbance, sepsis, ACS, pneumonia, heart failure I obtained a broad lab and imaging workup to further elucidate etiology of the patient's complaints. Initial resuscitated patient 1 L normal saline ALL IMAGES (IF OBTAINED) HAVE BEEN PERSONALLY REVIEWED AND INTERPRETED BY MYSELF. EKG with normal sinus rhythm rate of 65, left axis deviation, no STEMI Lactate is wnl indicating no end-organ hypoperfusion and/or hypoxia. High-sensitivity troponin is negative, no evidence of myocardial ischemia CBC without leukocytosis to suggest inflammation, no anemia or thrombocytopenia BMP without evidence of significant electrolyte abnormalities, no anion gap, no acute kidney injury. LFTs show no evidence of hepatobiliary pathology. I have personally reviewed the patient's chest x-ray. Chest x-ray is unremarkable for pulmonary edema, pneumothorax, pneumonia or focal cardiopulmonary abnormality. CT scan of the brain shows no evidence of ICH Urinalysis without evidence of infection There is no clear life or limb threatening etiology can be ascertained by the patient's labs, history or physical exam. She was able to ambulate here in the emergency department. She does have help at home. She does not require hospitalization at this time as patient have a specific etiology to treat. She was encouraged to follow-up with primary care physician for further outpatient valuation to return if symptoms change or worsen. The patient and/or family, caregivers express understanding. The patient and/orfamily, caregivers agrees with the plan. Shared decision making: I will have a discussion with the patient and or visitors regarding risk/benefits of further testing or admission. They will be made aware of of the risk/benefits inherent in this decision they will be given the opportunity to voice understanding. Total critical care time today provided was at least 0 minutes. This excludes separately billable procedures. Critical care time (if documented) is secondary to the patient having high probability ofclinically significant/life threatening deterioration in the patient's condition which required my urgent intervention. Impression: 1. Diffuse weakness 2. Dizziness 3. History of CAD Dispo: Discharge home This note was generated with TwentyFeet dictation software. It may contain incorrectwords, spelling, and punctuation that were not noted in review of the chart prior to signing. Lab Data Labs: Laboratory Results - last 24 hr 08/02/24 08/02/24 08/02/24 03:50 05:00 06:09 WBC 6.8 RBC 4.50 Hgb 13.8 Hct 42.2 MCV 93.8 MCH 30.7 MCHC 32.7 RDW Std Deviation 43.5 RDW Coeff of Cory 12.6 Plt Count 201 MPV 10.0 Immature Gran % (Auto) 0.600 Neut % (Auto) 72.1 H Lymph % (Auto) 16.3 L Elliott % (Auto) 9.1 Eos % (Auto) 1.5 Baso % (Auto) 0.4 Absolute Neuts (auto) 4.9 Absolute Lymphs (auto) 1.11 Nucleated RBC % 0 Sodium 142 Potassium 3.8 Chloride 105 Carbon Dioxide 26.4 Anion Gap 10 BUN 23 H Creatinine 0.60 L Estim Creat Clear Calc 58.03 Est GFR (MDRD) Non-Af 91 BUN/Creatinine Ratio 38.1 H Glucose 117 H Lactic Acid 1.2 Calcium 10.5 Total Bilirubin 0.61 AST 17 ALT 13 Alkaline Phosphatase 107 H Troponin T High Sens 18 H Total Protein 6.5 Albumin 3.6 Globulin 2.9 Albumin/Globulin Ratio 1.2 Urine Color Yellow Urine Clarity Sl. Cloudy Urine pH 6.0 Ur Specific [place] 1.020 Urine Protein 30 H Urine Glucose (UA) Normal Urine Ketones Negative Urine Occult Blood Negative Urine Nitrite Negative Urine Bilirubin Negative Urine Urobilinogen Normal Ur Leukocyte Esterase Negative Urine RBC 0 SEEN Urine WBC 0-5 SEEN Ur Squamous Epith Cells 0-5 SEEN Urine Bacteria RARE Urine Mucus 0 SEEN Radiography Diagnostic Testing: Clinical Impression(s) from Imaging Studies Brain CT 08/02/24 04:44 IMPRESSION: No CT evidence for acute brain abnormality. Reading Location: [place] [address] Chest X-Ray 08/02/24 04:55 IMPRESSION: Mild bilateral basilar atelectatic pulmonary changes. Reading Location: [place] [address] Discharge Plan Triage Chief Complaint: Weakness ED Provider: Jaylen Jack Dx/Rx/DC Orders Clinical Impression: Weakness Prescriptions: No Action potassium gluconate 595 mg (99 mg) tablet 595 mg PO DAILY PRN (Reason: for low levels) carvedilol 25 mg tablet 25 mg PO BID Qty: 180 3RF Rx Instructions: must administer with a meal/food nitroglycerin 0.4 mg tablet, sublingual 0.4 mg SUBLINGUAL Q5M PRN (Reason: Chest Pain) Qty: 25 2RF Patient Comments: chest pain aspirin 81 MG tablet,chewable 81 mg PO QHS Patient Comments: [facility] furosemide 40 mg tablet 40 mg PO DAILY Qty: 90 3RF lisinopril 20 mg tablet 20 mg PO BID Qty: 180 4RF atorvastatin 40 mg tablet 40 mg PO QHS Qty: 90 3RF omeprazole 20 mg capsule,delayed release(DR/EC) 20 mg PO DAILY Qty: 90 3RF Primary Care Provider: Lilly Fletcher Referrals: Lilyl Fletcher MD [Primary Care Provider] - Activity Restrictions/Additional Instructions: Thank you for trusting us with your care today! Your labs and images today were reassuring. Specifically there is no signs of bleeding in your brain, signs of pneumonia or heart failure, signs of sepsis, signs of systemic inflammation or anemia, signs of significant electrolyte abnormalities or kidney dysfunction, signs of liver dysfunction or UTI. Please take Tylenol (2 pills, 650 mg), ibuprofen (2 pills, 400 mg) every 6 hoursas needed for pain and fever control. Please try to take in plenty of oral fluids. Please return to the emergency department if your symptoms change or worsen. Please follow with your primary care physician for further outpatient evaluationand management. Please discuss with your primary care physician changing to medication specific medications affect yourblood pressure including carvedilol,furosemide, lisinopril. Also inquire about repeating an ultrasound of the heart(echocardiogram). Print Language: Angolan What to do if you have Problems For any increased pain, shortness of breath, bleeding, nausea or vomiting, chestpain, or any unexpected problems, contact your Primary Care Provider. Call [facility] ([phone]) or report tothe closest Emergency Room. Call 911 if necessary. 08/02/24 0645 Cosigner Signature (if applicable): CC: Dr. Lilly Fletcher MD ~ Signed [facility]06-03-2025 Radiology Diagnostic study note [facility] Imaging Services [address] [place] [address] Chest 1 View (Portable) MR#: [id number] Acct: [id number] Name: AYAN CARRILLO Rep #: [id number] : 1945 F 79 From: Barbara Miranda MD PCP: Dr. Lilly Fltecher MD Status: REG ER Study:Chest 1 View (Portable) Date of Exam: 08/02/24 Exam# [id number] Ordering Dr: Rod Jack DO PROCEDURE: CHEST 1 VIEW (PORTABLE) 08/02/2024 REASON FOR EXAM: DIFFUSE WEAKNESS TECHNIQUE: Frontal view of the chest. COMPARISON: None. FINDINGS: Mild bilateral basilar atelectatic pulmonary changes. There is no demonstrated pleural abnormality. Enlarged cardiac silhouette. Normal mediastinum and mindy. Normal visualized pulmonary arteries. Atheromatous plaques of the visualized aortic arch and descending thoracic aorta. Diffuse spondylosis of the visualized thoracic spine. Normal visualized ribs, clavicles. Degenerative joint disease. There is no demonstrated abnormality of the visualized soft tissue structures ofthe upper abdomen. RAD/Chest 1 View (Portable) IMPRESSION: Mild bilateral basilar atelectatic pulmonary changes. Reading Location: [place] [address] CC: Dr. Lilly Fletcher MD; Dr. Jaylen Jack DO ~ Buffer Operator: Signed [facility]06-03-2025 Radiology Diagnostic study note [facility] Imaging Services [address] [place] [id number] Brain/Head without Contrast MR#: [id number] Acct: [id number] Name: AYAN CARRILLO Rep #: [id number] : 1945 F 79 From: Barbara Miranda MD PCP: Dr. Lilly Fletcher MD Status: REG Study:Brain/Head without Contrast Date of Exa m: 08/02/24 Exam# [id number] Ordering Dr: Rod Jack DO PROCEDURE: BRAIN/HEAD WITHOUT CONTRAST 08/02/2024 REASON FOR EXAM: DIFFUSE WEAKNESS, DIZZINESS TECHNIQUE: Head CT without intravenous contrast. Coronal and Sagittal reconstruction serieswere provided. One or more dose reduction techniques were used (e.g., Automated exposure control, adjustment of the mA and/or kV according to patient size, use of iterative reconstruction technique. RADIATION DOSE SUMMARY: CTDlvol: 44.9 mGy DLP: 779 mGycm COMPARISON: None. FINDINGS: Mild diffuse cortical atrophy, commensurate with the patient's age. Scattered hypodense foci in the periventricular and subcortical white matter suggestive of chronic ischemic white matter disease. Normal size of the ventricles and extra-axial spaces for the patient's age. Normal basal ganglia and thalami. Normal brainstem. Normal cerebellum. There is no demonstrated extra-axial, intraparenchymal, or intraventricular hemorrhage. There are no findings of an acute ischemic infarction. Normal calvarium. There is no demonstrated fracture. Normal soft tissue structures. Mild chronic mucosal inflammatory changes of the right maxillary sinus. Normal remaining visualized paranasal sinuses. CT/Brain/Head without Contrast IMPRESSION: No CT evidence for acute brain abnormality. [facility] CC: Dr. Lilly Fletcher MD; Dr. Jaylen Jack, DO ~ Buffer Operator: Signed [facility]04-19-2025 Discharge summary [facility] Medical Records Department [address] [place] [address] Emergency Department Summary 06/18/24 MR#: [id number] Acct: [id number] Name: AYAN CARRILLO Rep #:[id number] : 1945 78 From: Jennifer MAJOR PCP: [...] injury. She is not on blood thinners. Sheis primarily concerned about 6+ months of ongoing [...] pain, shortness of breath, palpitations or syncope. [facility] Medical History Obesity Essential (primary) hypertension Atherosclerotic heart disease of [place] coronary artery without angina pectoris Hyperlipidemia GERD [...] tenderness of upper or lower extremities, chronic bilateralankle edema. 2+ radial and PT pulses. NEURO: [...] Oxygen Delivery Method Room Air Room Air Physical Exam Const Vital Signs: 06/18/24 20:34 [...] Oxygen Delivery Method Room Air Room Air MDM MDM MDM Narrative Medical decision making narrative: [...] are negative. Patient was able to ambulate withher walker but felt a little sore so [...] EENT exam pupils round reactive light. Moist mucousmembranes. Face scalp nontender no hematoma or laceration. C-spine and neck nontender. Lungs clear to auscultation bilaterally. Heart regular rhythm rate about 80 no murmur. Chest wall and ribs nontender. Abdomen soft nontender. Moving all 4 extremities. Nontender no deformity. Dorsi plantarflexionintact. Trace edema both lower extremities. Back nontender. [...] 71.1 H Lymph % (Auto) 18.1 L Elliott % (Auto) 9.1 Eos % (Auto) 1.0 Baso % (Auto) 0.3 Absolute Neuts (auto) 5.2 Absolute Lymphs (auto) 1.33 Nucleated RBC % 0 Sodium 139 Potassium 4.5 Chloride 102 Carbon Dioxide 27.6 Anion Gap 9 BUN 27 H Creatinine 0.70 Estim Creat Clear Calc 59.54 Est GFR (MDRD) Non-Af 88 BUN/Creatinine Ratio 38.3 H Glucose 114 H Calcium 10.4 MDM MDM Narrative Medical decision making narrative: [...] are negative. Patient was able to ambulate withher walker but felt a little sore so [...] EENT exam pupils round reactive light. Moist mucousmembranes. Face scalp nontender no hematoma or laceration. C-spine and neck nontender. Lungs clear to auscultation bilaterally. Heart regular rhythm rate about 80 no murmur. Chest wall and ribs nontender. Abdomen soft nontender. Moving all 4 extremities. Nontender no deformity. Dorsi plantarflexionintact. Trace edema both lower extremities. Back nontender. [...] 71.1 H Lymph % (Auto) 18.1 L Elliott % (Auto) 9.1 Eos % (Auto) 1.0 [...] - Activity Restrictions/Additional Instructions: Follow-up with your compensation specialist to address your low blood pressure. Keep a daily log. Ice and takeTylenol as needed. If symptoms worsen come back to theER. Print Language: Angolan Disposition Disposition: Home, Self Care What to do if you have Problems For any increased pain, shortness of breath, bleeding, nausea or vomiting, chestpain, or any unexpected problems, contact your Primary Care Provider. Call [facility] ([phone]) or report tothe closest Emergency Room. Call 911 if necessary. 06/18/242157 Cosigner Signature (if applicable): 06/18/242158 CC: Dr. Lilly Fletcher MD ~ Signed [facility]04-19-2025 Discharge summary Author Jennifer Meléndez [facility] Note Date/Time June 18, 2024 9:5 9pm [facility] Medical Records Department [address] [place] [address] Emergency Department Summary 06/18/24 MR#: [id number] Acct: [id number] Name: AYAN CARRILLO Rep #:[id number] : 1945 78 From: Jennifer MAJOR PCP: [...] <PEDRITO Delacruz - Last Filed: 06/18/24 21:58> [facility] Medical History Obesity Essential (primary) hypertension Atherosclerotic heart disease of [place] coronary artery without angina pectoris Hyperlipidemia GERD [...] Oxygen Delivery Method Room Air Room Air [facility] <PEDRITO Delacruz - Last Filed: 06/18/24 21:58> [facility] Narrative Medical decision making narrative: 78-year-old female [...] 71.1 H Lymph % (Auto) 18.1 L Elliott % (Auto) 9.1 Eos % (Auto) 1.0 [...] Hair MD - Last Filed: 06/18/24 21:59> [facility] Narrative Medical decision making narrative: 78-year-old female [...] 71.1 H Lymph % (Auto) 18.1 L Elliott % (Auto) 9.1 Eos % (Auto) 1.0 [...] - Activity Restrictions/Additional Instructions: Follow-up with your compensation specialist to address your low blood pressure. Keep a daily log. Ice and take Tylenol as needed. If symptoms worsen come back to theER. Print Language: Angolan Disposition Disposition: Home, Self Care What to do if you have Problems For any increased pain, shortness of breath, bleeding, nausea or vomiting, chestpain, or any unexpected problems, contact your Primary Care Provider. Call [facility] ([phone]) or report to the closest Emergency Room. Call 911 if necessary. 06/18/242157 <Electronically signed by Jennifer MAJOR> Cosigner Signature (if applicable): 06/18/242158 <Electronically signed by Jay Hair MD> CC: Dr. Lilly Fletcher MD ~ Signed [facility] Work Phone: Discharge summary Author Jaylen Jack [facility] Note Date/Time August 02, 2024 6:45a m [facility] Medical Records Department [address] [place] [address] Emergency Department Summary 08/02/24 MR#: [id number] Acct: [id number] Name: AYAN CARRILLO Rep #:[id number] : 1945 79 From: Jaylen Solomon PCP: Dr. Lilly Fletcher MD Status:REG ER Location: ED HPI History of Present Illness Chief Complaint: [facility]ness [facility] Medical History (Updated 08/02/24 @ 06:[address] Jaylen Jack DO) Myocardial infarction Obesity Essential (primary) hypertension Atherosclerotic heart disease of [place] coronary artery without angina pectoris Hyperlipidemia GERD (gastroesophageal reflux disease) Osteoarthritis Morbid obesity with BMI of 40.0-44.9, adult Home Medications ?Medication ?Instructions ?Recorded ?Last Taken ?Type aspirin 81 mg chewable tablet 81 mg PO QHS 10/25/15 History potassium gluconate 595 mg (99 mg) 595 mg PO DAILY PRN for low levels 09/09/18 Unknown History tablet carvedilol 25 mg tablet 25 mg PO BID Dose has been 0 08/10/23 Unknown Rx increased #180 tabs nitroglycerin 0.4 mg sublingual 0.4 mg sublingual Q5M PRN Chest 08/10/23 Unknown Rx tablet Pain #25 tabs furosemide 40 mg tablet 40 mg PO DAILY this is a dos e 08/31/23 Unknown Rx increase #90 tabs lisinopril 20 mg tablet 20 mg PO BID #180 tabs 02/08 Unknown Rx atorvastatin 40 mg tablet 40 mg PO QHS #90 tabs Unknown Rx omeprazole 20 mg capsule,delayed 20 mg PO DAILY #90 ca ps 08/01/24 Unknown Rx release Allergy/AdvReac Type Severity Reaction Status Date / Time hydrochlorothiazide AdvReac Intermediate Constipatio Verified 08/02/24 03:43 n Family History Father CAD (coronary artery disease) Mother CHF (congestive heart failure) Sister Hypertension Surgical History History of cholecystectomy History of left heart catheterization (06/04/08) History of coronary angioplasty (09/20/07) History of laparoscopic cholecystectomy History of total hysterectomy Social History Smoking Status: Never smoker alcohol intake: never substance use type: does not use EXAM Physical Exam Const Vital Signs: 08/02/24 03:44 08/02/24 03:44 08/02/24 03:48 Temperature 97.8 F 97.8 F Temperature Source Oral Oral Pulse Rate 71 70 Respiratory Rate 20 H 20 H Respiratory Effort Normal Respiratory Pattern Normal Blood Pressure 131/111 H 134/111 H Blood Pressure Mean 117 118 Pulse Ox 95 95 Oxygen Delivery Method Room Air Room Air 08/02/24 04:48 08/02/24 05:00 08/02/24 06:00 Temperature 97.8 F 97.8 F 97.8 F Temperature Source Oral Oral Oral Pulse Rate 69 63 72 Respiratory Rate 18 18 18 Respiratory Effort Respiratory Pattern Blood Pressure 131/71 H 141/77 H 137/112 H Blood Pressure Mean 91 98 120 Pulse Ox 94 97 98 Oxygen Delivery Method Room Air Room Air Room Air MDM MDM MDM Narrative Medical decision making narrative: HISTORY OF PRESENT ILLNESS: Chief complaint: Weakness, dizziness, lightheadedness Atrial female history of of CAD, NC status post stent, hypertension, hyperlipidemia presents with multiple symptoms with diffuse weakness mostly in the lower extremities. Denies chest pain, shortness of breath. Denies cough fever chills. Denies headache or recent falls. Denies syncope. Has abdominal pain. Denies urinary frequency urgency or dysuria. Denies diarrhea melena hematochezia. Denies focal weakness REVIEW OF SYSTEMS: Pertinent positives: Diffuse weakness, dizziness and lightheadedness Pertinent negatives: as per HPI PHYSICAL EXAM: Nursing triage notes reviewed, Vital signs reviewed Constitutional: please see [facility] HENT: MMM Eyes: Pupils equal round and reactive to light, Extraocular muscles intact Neck: No stridor, no JVD, full neck ROM Lungs: Clear to auscultation, No wheezing or rales. No increased work of breathing, no conversational dyspnea, no accessory muscle use, no nasal flaring. No respiratory distress noted Heart: Regular rate and rhythm, No murmurs, No rubs and No gallops, 2+ distal pulses (radial, femoral, posterior tibial) in all extremities Abdomen: Soft, there is no tenderness, rigidity, rebound or guarding, no obviousperitoneal signs, no palpable pulsatile abdominal masses, no auscultated abdominal bruit : No CVAT Extremities: No edema Neuro: No new focal neurological deficits, cranial nerves II through XII intact,5/5 strength in all present extremities. Intact sensation to light touch in all present extremities, 2+ reflexes bilateral patella tendons. Skin: No rash or lesions noted MEDICAL DECISION MAKING: Chief Complaint: please see HPI External records reviewed: Reviewed prior echocardiogram from 2023 showed ejection fraction 65%, stage I diastolic dysfunction but no regional wall motionabnormalities Factors affecting care: As per HPI Social determinants of health: none History obtained from others: Family Consults: none [facility] Narrative: Patient was initially hemodynamically stable, afebrile nontoxic-appearing saturating 95% room air. Exam without focal neurologic deficits. No cardiopulmonary abnormalities. No abdominal tenderness noted on initial exam I considered the following differential diagnosis: ICH, mass, arrhythmia, anemia, electro disturbance, sepsis, ACS, pneumonia, heart failure I obtained a broad lab and imaging workup to further elucidate etiology of the patient's complaints. Initial resuscitated patient 1 L normal saline ALL IMAGES (IF OBTAINED) HAVE BEEN PERSONALLY REVIEWED AND INTERPRETED BY MYSELF. EKG with normal sinus rhythm rate of 65, left axis deviation, no STEMI Lactate is wnl indicating no end-organ hypoperfusion and/or hypoxia. High-sensitivity troponin is negative, no evidence of myocardial ischemia CBC without leukocytosis to suggest inflammation, no anemia or thrombocytopenia BMP without evidence of significant electrolyte abnormalities, no anion gap, no acute kidney injury. LFTs show no evidence of hepatobiliary pathology. I have personally reviewed the patient's chest x-ray. Chest x-ray is unremarkable for pulmonary edema, pneumothorax, pneumonia or focal cardiopulmonary abnormality. CT scan of the brain shows no evidence of ICH Urinalysis without evidence of infection There is no clear life or limb threatening etiology can be ascertained by the patient's labs, history or physical exam. She was able to ambulate here in the emergency department. She does have help at home. She does not require hospitalization at this time as patient have a specific etiology to treat. She was encouraged to follow-up with primary care physician for further outpatient valuation to return if symptoms change or worsen. The patient and/or family, caregivers express understanding. The patient and/orfamily, caregivers agrees with the plan. Shared decision making: I will have a discussion with the patient and or visitors regarding risk/benefits of further testing or admission. They will be made aware of of the risk/benefits inherent in this decision they will be given the opportunity to voice understanding. Total critical care time today provided was at least 0 minutes. This excludes separately billable procedures. Critical care time (if documented) is secondary to the patient having high probability of clinically significant/life threatening deterioration in the patient's condition which required my urgent intervention. Impression: 1. Diffuse weakness 2. Dizziness 3. History of CAD Dispo: Discharge home This note was generated with TwentyFeet dictation software. It may contain incorrectwords, spelling, and punctuation that were not noted in review of the chart prior to signing. Lab Data Labs: Laboratory Results - last 24 hr 08/02/24 08/02/24 08/02/24 03:50 05:00 06:09 WBC 6.8 RBC 4.50 Hgb 13.8 Hct 42.2 MCV 93.8 MCH 30.7 MCHC 32.7 RDW Std Deviation 43.5 RDW Coeff of Cory 12.6 Plt Count 201 MPV 10.0 Immature Gran % (Auto) 0.600 Neut % (Auto) 72.1 H Lymph % (Auto) 16.3 L Elliott % (Auto) 9.1 Eos % (Auto) 1.5 Baso % (Auto) 0.4 Absolute Neuts (auto) 4.9 Absolute Lymphs (auto) 1.11 Nucleated RBC % 0 Sodium 142 Potassium 3.8 Chloride 105 Carbon Dioxide 26.4 Anion Gap 10 BUN 23 H Creatinine 0.60 L Estim Creat Clear Calc 58.03 Est GFR (MDRD) Non-Af 91 BUN/Creatinine Ratio 38.1 H Glucose 117 H Lactic Acid 1.2 Calcium 10.5 Total Bilirubin 0.61 AST 17 ALT 13 Alkaline Phosphatase 107 H Troponin T High Sens 18 H Total Protein 6.5 Albumin 3.6 Globulin 2.9 Albumin/Globulin Ratio 1.2 Urine Color Yellow Urine Clarity Sl. Cloudy Urine pH 6.0 Ur Specific [place] 1.020 Urine Protein 30 H Urine Glucose (UA) Normal Urine Ketones Negative Urine Occult Blood Negative Urine Nitrite Negative Urine Bilirubin Negative Urine Urobilinogen Normal Ur Leukocyte Esterase Negative Urine RBC 0 SEEN Urine WBC 0-5 SEEN Ur Squamous Epith Cells 0-5 SEEN Urine Bacteria RARE Urine Mucus 0 SEEN Radiography Diagnostic Testing: Clinical Impression(s) from Imaging Studies Brain CT 08/02/24 04:44 IMPRESSION: No CT evidence for acute brain abnormality. Reading Location: [place] [address] Chest X-Ray 08/02/24 04:55 IMPRESSION: Mild bilateral basilar atelectatic pulmonary changes. Reading Location: [place] [address] Discharge Plan Triage Chief Complaint: Weakness ED Provider: Jaylen Jack Dx/Rx/DC Orders Clinical Impression: Weakness Prescriptions: No Action potassium gluconate 595 mg (99 mg) tablet 595 mg PO DAILY PRN (Reason: for low levels) carvedilol 25 mg tablet 25 mg PO BID Qty: 180 3RF Rx Instructions: must administer with a meal/food nitroglycerin 0.4 mg tablet, sublingual 0.4 mg SUBLINGUAL Q5M PRN (Reason: Chest Pain) Qty: 25 2RF Patient Comments: chest pain aspirin 81 MG tablet,chewable 81 mg PO QHS Patient Comments: [facility] furosemide 40 mg tablet 40 mg PO DAILY Qty: 90 3RF lisinopril 20 mg tablet 20 mg PO BID Qty: 180 4RF atorvastatin 40 mg tablet 40 mg PO QHS Qty: 90 3RF omeprazole 20 mg capsule,delayed release(DR/EC) 20 mg PO DAILY Qty: 90 3RF Primary Care Provider: Lilly Fletcher Referrals: Lilly Fletcher MD [Primary Care Provider] - Activity Restrictions/Additional Instructions: Thank you for trusting us with your care today! Your labs and images today were reassuring. Specifically there is no signs of bleeding in your brain, signs of pneumonia or heart failure, signs of sepsis, signs of systemic inflammation or anemia, signs of significant electrolyte abnormalities or kidney dysfunction, signs of liver dysfunction or UTI. Please take Tylenol (2 pills, 650 mg), ibuprofen (2 pills, 400 mg) every 6 hoursas needed for pain and fever control. Please try to take in plenty of oral fluids. Please return to the emergency department if your symptoms change or worsen. Please follow with your primary care physician for further outpatient evaluationand management. Please discuss with your primary care physician changing to medication specific medications affect your blood pressure including carvedilol,furosemide, lisinopril. Also inquire about repeating an ultrasound of the heart(echocardiogram). Print Language: Angolan What to do if you have Problems For any increased pain, shortness of breath, bleeding, nausea or vomiting, chestpain, or any unexpected problems, contact your Primary Care Provider. Call [facility] ([phone]) or report to the closest Emergency Room. Call 911 if necessary. 08/02/24 0645 <Electronically signed by Jaylen Jack DO> Cosigner Signature (if applicable): CC: Dr. Lilly Fletcher MD ~ Signed [facility] Work Phone: Evaluation note* Diagnosis Onset Date Resolution Status Atherosclerotic heart diseas e of [place] coronary artery without angina pectoris chronic Essential (primary) hypertension chronic Hyperlipidemia chronic [facility] Work Phone: Evaluation noteNo assessment information available [facility] Work Phone: Evaluation note* Diagnosis Onset Date Resolution Status ANTHONY (dyspnea on exertion) ac [place] Palpitations acute Atherosclerotic heart diseas e of [place] coronary artery without angina pectoris chronic Essential (primary) hypertension chronic Hyperlipidemia chronic [facility] Work Phone: Evaluation note* Diagnosis Onset Date Resolution Status Atherosclerotic heart diseas e of [place] coronary artery without angina pectoris chronic Essential (primary) hypertension chronic Hyperlipidemia chronic Cystitis acute [facility] Work Phone: Evaluation note* Diagnosis Onset Date Resolution Status Admit Date Dizziness acute August 15 3:23pm ANTHONY (dyspnea on exertion) acute August 15, 2024 3:23pm Atherosclerotic heart diseas e of [place] coronary artery without angina pectoris chronic August 15, 2024 3:23pm Essential (primary) hypertension chr onic August 15, 2024 3:23pm Hyperlipidemia chronic August 15, 2024 3:23pm [facility] Work Phone: Hospital Discharge instructions Additional Instructions Your work up today showed no sign of heart attack. I think your chest pain is from GERD or acid reflux. Continue your home medication and I prescribed Carafate to take before each meal and at bedtime. Please follow-up with your primary care doctor.[facility] Work Phone: Hospital Discharge instructions Additional Instructions Follow-up with your compensation specialist to address your low blood pressure. Keep a daily log. Ice and take Tylenol as needed. If symptoms worsen come back to the ER.[facility] Work Phone: Hospital Discharge instructions Additional Instructions Thank you for trusting us with your care today! Your labs and images today were reassuring. Specifically there is no signs of bleeding in your brain, signs of pneumonia or heart failure, signs of sepsis, signs of systemic inflammation or anemia, signs of significant electrolyte abnormalities or kidney dysfunction, signs of liver dysfunction or UTI. Please take Tylenol (2 pills, 650 mg), ibuprofen (2 pills, 400 mg) every 6 hours as needed for pain and fever control. Please try to take in plenty of oral fluids. Please return to the emergency department if your symptoms change or worsen. Please follow with your primary care physician for further outpatient evaluation and management. Please discuss with your primary care physician changing to medication specific medications affect your blood pressure including carvedilol, furosemide, lisinopril. Also inquire about repeating an ultrasound of the heart (echocardiogram).[facility] Work Phone: Reason for referral (narrative)No reason for [facility] Work [facility]: Chief Complaint and Reason for Visit Chief Complaint 6 M FU CAD - ANGIOPLASTY 2016 CAD - ANGIOPLASTY 2016 INT LABS Reason for Visit Atherosclerotic hear t disease of [place] coronary artery without angina pectoris Essential (primary) hypertension Hyperlipidemia Chief Complaint chest pain Chief Complaint chest pain 6 M FU PALPITATIONS Reason for Visit ANTHONY (dyspnea on exer tion) Palpitations Atherosclerotic heart disease of [place] coronary artery without angina pectoris Essential (primary) hypertension Hyperlipidemia Chief Complaint chest pain 6 M FU PALPITATIONS ANTHONY Reason for Visit ANTHONY (dyspnea on exer tion) Palpitations Atherosclerotic heart disease of [place] coronary artery without angina pectoris Essential (primary) hypertension Hyperlipidemia Chief Complaint chest pain 6 M FU PALPITATIONS ANTHONY EORDERS Reason for Visit ANTHONY (dyspnea on exer tion) Palpitations Atherosclerotic heart disease of [place] coronary artery without angina pectoris Essential (primary) hypertension Hyperlipidemia Chief Complaint 6 M FU Reason for Visit Atherosclerotic hear t disease of [place] coronary artery without angina pectoris Essential (primary) hypertension Hyperlipidemia Chief Complaint 6 M FU CONCERN FOR UTI Reason for Visit Atherosclerotic hear t disease of [place] coronary artery without angina pectoris Essential (primary) hypertension Hyperlipidemia Cystitis Chief Complaint Admit Date fallJune 18, 2024 8:3 3pm Chief Complaint Admit Date fall June 18, 2024 8:3 3pm weakness August 02, 2024 3:41a m Chief Complaint Admit Date fall June 18, 2024 8:3 3pm weakness August 02, 2024 3:41a m 6 M FU August 15, 2024 3:23 pm Reason for Visit Admit Date Dizziness August 15, 2024 3:23 pm ANTHONY (dyspnea on exertion) August 15 3:23pm Atherosclerotic heart diseas e of [place] coronary artery without angina pectoris August 15, 2024 3:23pm Essential (primary) hypertension August 152024 3:23pm Hyperlipidemia August 15, 2024 3:23 pm Chief Complaint Admit Date fall June 18, 2024 8:3 3pm weakness August 02, 2024 3:41a m 6 M FU August 15, 2024 3:23 pm 4-6 WK FU September 05, 2024 3:54p m Reason for Visit Admit Date Dizziness August 15, 2024 3:23 pm ANTHONY (dyspnea on exertion) August 15 3:23pm Atherosclerotic heart diseas e of [place] coronary artery without angina pectoris August 15, 2024 3:23pm Essential (primary) hypertension August 152024 3:23pm Hyperlipidemia August 15, 2024 3:23 pm Dizziness September 05, 2024 3:54p m ANTHONY (dyspnea on exertion) September 05, 2024 3:54pm Atherosclerotic heart diseas e of [place] coronary artery without angina pectoris September 05, 2024 3:54pm Essential (primary) hypertension August 3:54pm Hyperlipidemia September 05, 2024 3:54p m Family History No Family History Records Found Relationship Condition Age at Onset Recorded Date/T oli father Coronary artery disease Unknown mother Congestive heart failure Unknown sister Hypertension Unknown Advance Directives No Advanced Directives Records Found Advance Directive Response Recorded Date/ Time Advance Directives Yes October 25, 2015 5:48pm Living Will No August 03, 2020 1 :39pm Power of Courtesy Car Driver No August 03, 2020 1:39pm Advance Directive Response Recorded Date/ Time Advance Directives Yes October 25, 2015 5:48pm Living Will Yes October 12 2:43pm Power of Courtesy Car Driver Yes October 12 022 2:43pm Name of Medical Power of Courtesy Car Driver daughter October 12, 2021 2:43pm Advance Directive Response Recorded Date/ Time Name of Medical Power of Courtesy Car Driver daughter October 12, 2021 2:43pm Advance Directives Yes October 25, 2015 5:48pm Living Will Yes October 12 2 2:43pm Power of Courtesy Car Driver Yes October 12 2 022 2:43pm Advance Directive Response Recorded Date/ Time Name of Medical Power of Courtesy Car Driver daughter October 12, 2021 1:43pm Advance Directives Yes October 25, 2015 4:48pm Living Will Yes October 12 2 1:43pm Power of Courtesy Car Driver Yes October 12, 2 022 1:43pm Advance Directive Response Recorded Date/ Time Advance Directives Yes October 25, 2015 4:48pm Living Will Yes October 12 2 1:43pm Power of Courtesy Car Driver Yes October 12, 2 022 1:43pm Advance Directive Response Recorded Date/ Time Living Will Yes June 18, 2024 8:38pm Do you have a Healthcare Power of Courtesy Car Driver? Yes June 18, 2024 8:38pm Name of Medical Power of Courtesy Car Driver Cassandra June 18, 2024 8:38pm Advance Directives Yes October 25, 2015 5:48pm Advance Directive Response Recorded Date/ Time Living Will Yes June 18, 2024 8:38pm Do you have a Healthcare Power of Courtesy Car Driver? Yes June 18, 2024 8:38pm Name of Medical Power of Courtesy Car Driver Cassandra June 18, 2024 8:38pm Do you have a Healthcare Power of Courtesy Car Driver? Yes August 02, 2024 3:44am Advance Directives Yes October 25, 2015 5:48pm Advance Directive Response Recorded Date/ Time Living Will No July 15, 2023 9 :56pm Do you have a Healthcare Power of Courtesy Car Driver? No July 15, 2023 9:56pm Living Will Yes June 18, 2024 8:38pm Do you have a Healthcare Power of Courtesy Car Driver? Yes June 18, 2024 8:38pm Name of Medical Power of Courtesy Car Driver Cassandra June 18, 2024 8:38pm Do you have a Healthcare Power of Courtesy Car Driver? Yes August 02, 2024 3:44am Advance Directives Yes October 25, 2015 5:48pm [...] Dr. Lilly Fletcher MD Primary Care Provider, [facility] Provider Active Ginger Grace MISSILE TECHNICIAN, MISSILE TECHNICIAN-C Attending Provider Active Team Status: Inactive Member Role Status Dates Dr. Lilly Fletcher MD Primary Care Provider Active Ginger Grace MISSILE TECHNICIAN, MISSILE TECHNICIAN-C Attending Provider Active Team Status: Inactive Member [...] June 18, 2024 End: June 18, 2024 Team Status: Inactive Member Role Status Dates Dr. Lilly Fletcher MD Primary Care Provider Active Start: June 18, 2024 End: June 18, 2024 Dr. Jay Hair MD Attending Provider Active S tart: June 18, 2024 End: June 18, 2024 Dr. Jay Hair MD Referring Provider Active S tart: June 18, 2024 End: June 18, 2024 Dr. Jay Hair MD Emergency Provider Active S tart: June 18, 2024 End: June 18, 2024 Team Status: Inactive Member Role Status Dates Dr. Lilly Fletcher MD Primary Care Provider Active Start: August 02, 2024 End: August 02, 2024 Dr. Jaylen Jack DO Emergency Provider Active Start: August 02, 2024 End: August 02, 2024 Team Status: Inactive Member Role Status Dates Dr. Lilly Fletcher MD Primary Care Provider Active Start: August 02, 2024 End: August 02, 2024 Dr. Jaylen Jack DO Attending Provider Active Start: August 02, 2024 End: August 02, 2024 Dr. Jaylen Jack DO Emergency Provider Active Start: August 02, 2024 End: August 02, 2024 Team Status: Inactive Member Role Status Dates Dr. Lilly Fletcher MD Primary Care Provider Active Start: August 15, 2024 End: August 15, 2024 Dr. Lilly Fletcher MD Referring Provider Active Start: August 15, 2024 End: August 15, 2024 Kale Ansari MISSILE TECHNICIAN, MISSILE TECHNICIAN-C Attending Provider Active S tart: August 15, 2024 End: August 15, 2024 Team Status: Active Member Role/Relationship Status Dates Dr. Lilly Fletcher MD Primary Care Provider Active Team Status: Inactive Member Role/Relationship Status Dates Dr. Lilly Fletcher MD Primary Care Provider Active Start: June 18, 2024 End: June 18, 2024 Dr. Jay Hair MD Attending Provider Active S tart: June 18, 2024 End: June 18, 2024 Dr. Jay Hair MD Referring Provider Active S tart: June 18, 2024 End: June 18, 2024 Dr. Jay Hair MD Emergency Provider Active S tart: June 18, 2024 End: June 18, 2024 Team Status: Inactive Member Role/Relationship Status Dates Dr. Lilly Fletcher MD Primary Care Provider Active Start: August 02, 2024 End: August 02, 2024 Dr. Jaylen Jack DO Attending Provider Active Start: August 02, 2024 End: August 02, 2024 Dr. Jaylen Jack DO Emergency Provider Active Start: August 02, 2024 End: August 02, 2024 Team Status: Inactive Member Role/Relationship Status Dates Dr. Lilly Fletcher MD Primary Care Provider Active Start: August 15, 2024 End: August 15, 2024 Dr. Lilly Fletcher MD Referring Provider Active Start: August 15, 2024 End: August 15, 2024 Kale Ansari MISSILE TECHNICIAN, MISSILE TECHNICIAN-C Attending Provider Active S tart: August 15, 2024 End: August 15, 2024 Team Status: Inactive Member Role/Relationship Status Dates Dr. Lilly Fletcher MD Primary Care Provider Active Start: September 05, 2024 End: September 05, 2024 Dr. Lilly Fletcher MD Referring Provider Active Start: September 05, 2024 End: September 05, 2024 Kale Ansari MISSILE TECHNICIAN, MISSILE TECHNICIAN-C Attending Provider Active S tart: September 05, 2024 End: September 05, 2024 INFORMATION SOURCE (unrecogn ized section and content) DATE CREATED AUTHOR 09/09/2024 [facility] FOR RECORDS PERTAINING TO PATIENTS WHO ARE [...] BE BASED ON THE PRIMARY CLINICAL RECORDS. [facility]. provides no warranty or guarantee of the accuracy or completeness of information in this document.
[2024-09-09] MEDS: Nitroglycerin Oint 1 INCH PACKET TD (20:52)
[2024-09-09 21:28] LABS: Anion Gap 8 (5-15); BUN 19 mg/dL (4-19); BUN/Creat Ratio 34.2 RATIO (10-20); Calcium,Total 10.4 mg/dL (7.6-11.0); Carbon Dioxide 27.5 mmol/L (21.0-32.0); Chloride 103 mmol/L (98-108); Estimated Creatinine Clearance 58.92 ml/min (50-250); Glucose 120 mg/dL (70-99); Potassium 4.6 mmol/L (3.3-5.1); Pro- Brain NATRIURETIC PEPTIDE 468 pg/mL (<=1800)
[2024-09-09 21:40] LABS: Troponin T High Sensitivity 14 ng/L (<=14)
[2024-09-09 22:56] LABS: Troponin T High Sens 2 HR 14 ng/L (<=14)
== END 2024-09-09 23:17 | disposition home or self-care (01) ==
PROVIDERS: Emergency Provider Emergency Medicine; PCP Family Medicine; Visit Provider Emergency Medicine
DX: R07.9 Chest pain, unspecified (principal); E66.01 Morbid (severe) obesity due to excess calories; Z68.41 Body mass index [BMI] 40.0-44.9, adult; R06.02 Shortness of breath; I25.10 Atherosclerotic heart disease of native coronary artery without angina pectoris; I25.2 Old myocardial infarction; I10 Essential (primary) hypertension; E78.5 Hyperlipidemia, unspecified; Z79.82 Long term (current) use of aspirin; Z79.899 Other long term (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
CPT/HCPCS: 71045; 80048; 83880; 84484; 85025; 93005; 99285; A4216

== ENCOUNTER → 2024-10-01 | Outpatient (CLI) | payer MEDICARE, SELFPAY ==
--- OUTSIDE RECORDS SUMMARY | 2024-10-01 10:02 | XMS RPT_ITS | CCD ---
Author Organization [facility] CliniSypr Care Team Providers Care Commutator Repairer Name Role Phone Kimber KELSEY, Vivien Quintana Unavailable Roof SMT OPERATOR, Kale Kendall Unavailable DeFinis, Harumi Y Unavailable Unavailable DeFinis, Harumi Y Unavailable Unavailable DeFinis, Harumi Y Unavailable Unavailable DeFinis, Harumi Y Unavailable Unavailable DeFinis, Harumi Y Unavailable Unavailable DeFinis, Harumi Y Unavailable Unavailable MD Susan, Elie Barnes Unavailable DeFinis, Harumi Y Unavailable Unavailable DeFinis, Harumi Y Unavailable Unavailable DeFinis, Harumi Y Unavailable Unavailable Roof SMT OPERATOR, Kale H Unavailable Dr. Lilly Fletcher Primary Care Provider Dr. Lilly Fletcher Referring Provider [phone] Sanjay TORRES, SMT OPERATOR-C Ginger Attending Provider Sanjay TORRES, SMT OPERATOR-C Ginger Referring Provider Sanjay TORRES, SMT OPERATOR-C Ginger Other Provider Dr. Elie Davis Attending Provider Dr. Lilly Fletcher Primary Care Provider Dr. Lilly Fletcher Referring Provider Sanjay TORRES, MELISSA-C Ginger Attending Provider Dr. Elie Davis Attending Provider Dr. Lilly Fletcher Primary Care Provider Dr. Lilly Fletcher Referring Provider Sanjay TORRES, MELISSA-C Ginger Attending Provider Dr. Elie Davis Attending Provider Dr. Lilly Fletcher Primary Care Provider [phone] Lilly Fletcher Referring Provider [phone] Sanjay SMT OPERATOR, SMT OPERATOR-C Ginger Attending Provider PEDRITO Hay Attending Provider Justine OHARA, Dr. Lilly Barnes Primary Care Provider [phone] Reginaldo OHARA, Dr. Thompson Referring Provider [phone] Reginaldo OHARA, Dr. Thompson Emergency Provider Reginaldo OHARA, Dr. Thompson Attending Provider Dr. Jaylen Jack DO Emergency Provider Dr. Jaylen Jack DO Attending Provider Dr. Lilly Fletcher MD Referring Provider Coty SMT OPERATOR-C, Kale Enoch Attending Provider Dr. Donovan Pierson DO Emergency Provider Jolliff, Lilly S Primary Care Unavailable Jolliff, Lilly S Referring Unavailable Roof SMT OPERATOR, Kale H Attending Unavailable Jolliff, Lilly S Primary Care Unavailable Jolliff, Lilly S Referring Unavailable Roof SMT OPERATOR, Kale H Attending Unavailable Jolliff, Lilly S Primary Care Unavailable Roof SMT OPERATOR, Kale H Attending Unavailable Roof SMT OPERATOR, Kale H Referring Unavailable Roof SMT OPERATOR, Kale H Attending Unavailable Jolliff, Lilly S Primary Care Unavailable Roof SMT OPERATOR, Kale H Referring Unavailable Jolliff, Lilly S Primary Care Unavailable Roof SMT OPERATOR, Kale H Attending Unavailable Roof SMT OPERATOR, Kale H Referring Unavailable Sanjay TORRES, Ginger Attending Unavailable Sanjay TORRES, Ginger Referring Unavailable Jolliff, Lilly S Primary Care Unavailable Jay Hair Attending Unavailable Jay Hair Referring Unavailable Jolliff, Lilly S Primary Care Unavailable Jaylen Jack Attending Unavailable Jolliff, Lilly S Primary Care Unavailable Donovan Pierson Attending Unavailable Jolliff, Lilly S Primary Care Unavailable Avi Davisril Attending Unavailable Jolliff, Lilly S Primary Care Unavailable Grace SMT OPERATOR, Ginger Attending Unavailable Jolliff, Lilly S Primary Care Unavailable Allergies Allergy Classification Reported Allergen(s) Allergy Type Date of Onset Reaction(s) Facility (9 sources) hydroCHLOROthiazide Drug Allergy 18-20 22 Drug-induced constipation with proper administration [facility] Comment on above: and urinary incontin ence (1 source) hydroCHLOROthiazide Drug Allergy 09-10-19 [facility] Repository Medications Current Medications Medication Drug Class(es) [...] tablet by mouth daily Enteric Coated ASPIRIN [id number] [facility] [place] Start: 09-16-2010 take 1 tablet by diomedes th once daily ASPIRIN 81 MG TABS One tablet by mouth daily Enteric Coated ASPIRIN [id number] [facility] [place] Start: 09-16-2010 take 1 tablet by diomedes th once daily ASPIRIN EC 81 MG TBEC One tablet by mouth daily ASPIRIN [id number] Nella Valerio meloxicam 15 mg oral tablet (1 source) Nonsteroidal Anti-inflammatory Drug Start: 09-09-2024 take 1 tablet by mouth once daily Meloxicam 15 mg tablet Active 15 mg PO DAILY September 09, 2024 12:00am Completed/Discontinued Medications Medication Drug Class(es) Dates Sig [...] 25 mg PO TWICE A DAY 180 3 November 24, 2022 2:47pm August 10, 2023 10:01am Dose has been increased must administer with a meal/food Start: 10-31-2021 End: 11-25-2021 take 2 tablets by mouth twice daily at mealtime Carvedilol 12.5 mg tablet Discontinued 25 mg PO TWICE A DAY 180 3 October 31, 2021 11:15am November 25, 2021 [...] 10:52am Start: 09-24-2016 take 1 tablet by [facility] twice daily COREG 3.125 MG TABS One tablet by mouth twice daily CARVEDILOL [id number] Kale Ansari NP Start: 09-24-2016 take 1 tablet by [facility] twice daily COREG 6.25 MG TABS One tablet by mouth twice daily CARVEDILOL [id number] Kale Ansari SMT OPERATOR cephalexin 500 mg oral capsule (6 sources) Cephalosporin Antibacterial Start: 03-25-2023 End: 04-04-2023 take 1 capsule by mouth every twelve hours Cephalexin 500 mg capsule Discontinued 500 mg PO Q12H 20 10 0 March 25, 2023 1:00am April 03, 2023 1:00am April 04, 2023 1:39am CLOBETASOL PROPIONATE (20 sources) Corticosteroid Start: 11-23-2015 End: 09-08-2016 TEMOVATE 0.05 % CREA as directed CLOBETASOL PROPIONATE [id number] Nella Mary Iman Start: 11-23-2015 End: 09-08-2016 TEMOVATE 0.05 % CREA as dire cted CLOBETASOL PROPIONATE [id number] Kobivinayak Mary Iman Start: 11-23-2015 TEMOVATE 0.05 % CREA as directed CLOBETASOL PROPIONATE [id number] Mary Prieto RN Start: 10-26-2015 End: 09-01-2017 [...] tablet Discontinued 20 mg PO DAILY 33 December 25, 2021 12:00am February 07, 2022 11:29am Please take 2 tablets (40mg) daily x 3 days, and then 1 tablet (20mg) daily. hydroCHLOROthiazide 25 mg oral tablet (20 sources) Thiazide Diuretic Start: 09-15-2019 End: 08-15-2021 take 1 tablet by mouth once daily Hydrochlorothiazide 25 mg tablet Discontinued 25 mg PO DAILY 90 3 April 18, 2021 9:44am August 15, 2021 3:06pm Start: 03-10-2014 End: 09-12-2014 take 1 tablet by mouth once daily HYDROCHLOROTHIAZIDE 12.5 MG TABS One tablet by mouth daily HYDROCHLOROTHIAZIDE [id number] Vivien Haynes PA-C ipratropium (20 sources) Anticholinergic [...] Prieto RN Start: 10-26-2015 End: 09-01-2017 Ipratropium Bayard 1 SPRAY spray,non-aerosol Discontinued 2 NMA NASAL THREE TIMES A DAY 2 0 October 26, 2015 11:11am September 01, 2017 11:15am Start: 10-26-2015 End: 09-01-2017 Ipratropium Bayard Disconti nued 2 SPRAY NASAL THREE TIMES A DAY 2 October 26, 2015 10:11am September 01, 2017 10:15am isosorbide (20 sources) Start: 03-25-2011 End: 08-13-2011 take 1 tablet by mouth once daily IMDUR 30 MG [id number] One tablet by mouth daily ISOSORBIDE MONONITRATE [id number] Sofie Cornejo RN Start: 03-25-2011 take 1 tablet by diomedes th once daily IMDUR 30 MG [id number] One tablet by mouth daily ISOSORBIDE MONONITRATE [id number] Yolanda Larose RN lisinopril 20 mg oral [...] tablet Discontinued 20 mg PO DAILY 90 4 September 09, 2019 12:34pm September 15, 2019 [...] TABS One tablet by mouth daily LISINOPRIL [id number] Kale Ansari NP MULTIPLE VITAMIN (14 sources) [...] Multivitamin With Folic Acid 1 TABLET tablet (5 sources) Start: 10-25-2015 End: 09-09-2018 take 1 tablet by mouth once daily Multivitamin With Folic Acid 1 TABLET tablet Discontinued 1 {tbl} PO DAILY October 25, 2015 12:00am September 09, 2018 10:48am niacin 500 mg oral tablet (20 sources) Nicotinic Acid Start: 09-16-2010 End: 09-12-2014 take 1 tablet by mouth once daily NIACIN 500 MG TABS One tablet by mouth daily NIACIN [id number] Susanne Jordan RN Start: 09-16-2010 End: 03-04-2012 take 1 tablet by mouth at bedtime NIASPAN 500 MG CR-TABS 1 tablet by mouth at bedtime with low fat snack NIACIN (ANTIHYPERLIPIDEMIC) [id number] Susanne Jordan RN nitroglycerin 0.4 mg sublingual [...] 5 min up to 3 X NITROGLYCERIN [id number] Elie Davis MD Start: 09-16-2010 NITROGLYCERIN 0.4 MG/HR PT24 1 tablet under tongue every 5 min up to 3 X NITROGLYCERIN [id number] Polly Mustafa omeprazole 20 mg delayed release oral capsule (20 sources) Proton Pump Inhibitor Start: 10-25-2015 End: 08-01-2024 take 1 capsule by mouth once daily Omeprazole 20 mg capsule,delayed release(DR/EC) Discontinued 20 mg PO DAILY 90 August 12, 2023 10:17am August 01, 2024 5:29pm Start: 03-04-2011 take 1 capsule by [facility] twice daily PRILOSEC 20 MG CPDR One capsule by mouth twice daily OMEPRAZOLE [id number] Elie Davis MD Start: 03-04-2011 take 1 capsule by [facility] twice daily PRILOSEC 20 MG CPDR One capsule by mouth twice daily OMEPRAZOLE [id number] Elie Davis MD Start: 09-16-2010 take 2 tablets by mo [facility] twice daily PRILOSEC 20 MG CPDR Two tablets by mouth twice daily OMEPRAZOLE [id number] Polly Mustafa Start: 09-16-2010 take 2 tablets by mo ut twice daily PRILOSEC 20 MG CPDR Two tablets by mouth twice daily OMEPRAZOLE [id number] Polly Mustafa potassium gluconate 2.5 meq oral tablet (20 sources) Start: 09-09-2018 End: 09-09-2024 take 1 tablet by mouth once daily as needed Potassium Gluconate 595 mg (99 mg) tablet Discontinued 595 mg PO DAILY as needed for for low levels September 09, 2018 10:49am September 09, 2024 8:55pm sertraline 25 mg oral tablet (20 sources) Serotonin Reuptake Inhibitor Start: 10-26-2015 End: 09-01-2017 take 1 tablet by mouth once daily Sertraline 25 MG tablet Discontinued 25 mg PO DAILY 30 0 October 26, 2015 12:00am September 01, 2017 11:15am sucralfate 1000 mg oral tablet (12 sources) Aluminum Complex Start: 10-12-2021 End: 07-02-2022 [...] Episodic Conditions associated with dizziness or vertigo (10 sources) Dizziness; Translations: [Dizziness and giddiness] Onset: 08-15-2024 08-15-2024 Episodic Coronary atherosclerosis and other heart disease (20 sources) Coronary atherosclerosis; Translations: [Coronary arteriosclerosis] Onset: 09-16-2010 09-16-2010 Chronic Coronary atherosclerosis and other heart disease (20 sources) Coronary angioplasty status; Translations: [Past history of procedure] Onset: 09-20-2007 09-16-2010 Episodic Comment on above: DEZ2 Disorders of lipid metabolism (20 sources) Hyperlipidemia; Translations: [Hyperlipidemia, unspecified] Onset: 03-25-2011 03-25-2011 Chronic E Codes: Fall (5 sources) Fall; Translations: [Unspecified fall, initial encounter] 06-18-2024 Episodic Esophageal disorders (20 sources) Gastroesophageal reflux disease; Translations: [Gastro-esophageal reflux disease without esophagitis] 10-31-2021 Chronic Essential hypertension (18 sources) Essential hypertension; Translations: [Essential (primary) hypertension] 09-08-2018 Chronic Heart valve disorders (20 sources) Systolic murmur; Translations: [Cardiac murmur, unspecified] Onset: 12-07-2012 12-07-2012 Episodic Hypertension with complications and secondary hypertension (20 sources) Essential (primary) hypertension; Translations: [Unspecified essential hypertension] Onset: 03-28-2015 03-28-2015 Chronic Malaise and fatigue (10 sources) Fatigue; Translations: [Other fatigue] Onset: 08-08-2024 07-24-2023 Episodic Nonspecific chest pain (20 sources) Precordial pain; Translations: [Chest pain] Onset: 09-16-2010 09-16-2010 Episodic Occlusion or stenosis of precerebral arteries (2 sources) Occlusion and stenosis of left carotid artery; Translations: [Occlusion and stenosis of left carotid artery] Onset: 08-15-2024 Chronic Other lower respiratory disease (16 sources) Dyspnea on exertion; Translations: [Other forms of dyspnea] 10-31-2021 Episodic Other lower respiratory disease (6 sources) Other forms of dyspnea; Translations: [Other respiratory abnormalities] Onset: 11-09-2023 Episodic Other nutritional; endocrine; and metabolic disorders (13 sources) Body mass index 40+ - severely obese; Translations: [Morbid (severe) obesity due to excess calories] 09-08-2018 Chronic Unclassified (4 sources) Long-term drug therapy; Translations: [Other shelter (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] Onset: 09-16-2010 09-16-2010 Urinary tract infections (7 sources) Cystitis; Translations: [Cystitis, unspecified without hematuria] 03-26-2023 Episodic Past or Other Problems Problem Classification Problem Date Documented Da te Episodic/Chronic Other aftercare (10 sources) Other oil heaterman (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; Translations: [Other oil heaterman (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] Onset: 09-16-2010 09-16-2010 Episodic Other injuries and conditions due to external causes (1 source) Encounter for examination and observation following other accident; Translations: [Encounter for examination and observation following other accident] Onset: 06-22-2024 Episodic Residual codes; unclassified (20 sources) Family [...] of the circulatory system] 03-01-2014 Episodic Unclassified (5 sources) No traumatic injury 06-18-2024 Results Test Name Value Interpretation Reference Range Facility L499.0043on 09-10-2024 Trop T High Sen Normal <=14 [facility] Comment on above: Result Comment: Canc elled via OM: Order cancelled - Patient discharged Performed By: #### L 499.0043 #### [facility] [place], [address] Absolute lymphocyte countOrd ered By: Donovan Pierson on 09-09-2024 Lymphocytes Auto (Unsp spec) [#/Vol] 1.11 10*3/uL 0.83-4.51 [facility] Absolute neutrophil countOrd ered By: Donovan Pierson on 09-09-2024 Neutrophils (Bld) [#/Vol] 4.6 10*3/uL 2.0-7.7 [facility] Anion gap in Serum or Plasma Ordered By: Donovan Pierson on 09-09-2024 Anion gap [Moles/Vol] 8 mmol/L 5-15 [facility] Automated lymphocyte count a s percentage of total leukocytesOrdered By: Donovan Pierson on 09-09-2024 Lymphocytes/100 WBC Auto (Unsp spec) 17.2 % Low 19-41 [facility] BUN/creatinine ratioOrdered By: Donovan Pierson on 09-09-2024 Urea nitrogen/Creatinine [Mass ratio] 34.2 mg/mg High 10-20 [facility] Basic Metabolic Profile (BMP )on 09-09-2024 BUN/CRE 34.2 RATIO High 10-20 [facility] Comment on above: Performed By: #### L 503.7505, L500.2500 #### [facility] [address] [place], [address] Calcium [Mass/Vol] 10.4 mg/dL Normal 7.6-11.0 [facility] Comment on above: Performed By: #### L 503.7505, L500.2500 #### [facility] [address] [place], [address] Chloride [Moles/Vol] 103 mmol/L Normal 98-108 [facility] Comment on above: Performed By: #### L 503.7505, L500.2500 #### [facility] [address] [place], [address] CO2 [Moles/Vol] 27.5 mmol/L Normal 21.0-32.0 [facility] Comment on above: Performed By: #### L 503.7505, L500.2500 #### [facility] [address] [place], [address] Creatinine [Mass/Vol] 0.55 mg/dL Low 0.70-1.20 [facility] Comment on above: Performed By: #### L 503.7505, L500.2500 #### [facility] [address] [place], [address] ECRCL 58.92 ml/min Normal 50-250 [facility] Comment on above: Performed By: #### L 503.7505, L500.2500 #### [facility] [address] [place], [address] GAP 8 Normal 5-15 [facility] Comment on above: Performed By: #### L 503.7505, L500.2500 #### [facility] [address] [place], [address] GFR/1.73 sq M.predicted among non-blacks MDRD (S/P/Bld) [Vol rate/Area] 92 mL/min/{1.73_m2} Normal >60 [facility] Comment on above: Result Comment: mL/m in/1.73m2 CKD-EPI Creatinine Equation (2020) Performed By: #### L 503.7505, L500.2500 #### [facility] [address] [place], [address] Glucose [Mass/Vol] 120 mg/dL High 70-99 [facility] Comment on above: Performed By: #### L 503.7505, L500.2500 #### [facility] [address] [place], [address] Potassium [Moles/Vol] 4.6 mmol/L Normal 3.3-5.1 [facility] Comment on above: Performed By: #### L 503.7505, L500.2500 #### [facility] [address] [place], [address] Sodium [Moles/Vol] 139 mmol/L Normal 133-145 [facility] Comment on above: Performed By: #### L 503.7505, L500.2500 #### [facility] [address] [place], [address] Urea nitrogen [Mass/Vol] 19 mg/dL Normal 4-19 [facility] Comment on above: Performed By: #### L 503.7505, L500.2500 #### [facility] [address] [place], [address] Basophil percentageOrdered B y: Donovan Pierson on 09-09-2024 Basophils/100 WBC (Bld) 0.5 % 0-1 [facility] CBC W/Diff, Automatedon 07-03 02-2024 Absolute Lymph 1.11 X10 3/uL Normal 0.83-4.51 [facility] Comment on above: Performed By: #### L 100.0100, L501.4021 #### [facility] [address] [place], [address] Absolute Neut 4.6 X10 3/uL Normal 2.0-7.7 [facility] Comment on above: Performed By: #### L 100.0100, L501.4021 #### [facility] [address] [place], [address] Basophils/100 WBC (Bld) 0.5 % Normal 0-1 [facility] Comment on above: Performed By: #### L 100.0100, L501.4021 #### [facility] [address] [place], [address] Eosinophils/100 WBC (Bld) 1.2 % Normal 0-5 [facility] Comment on above: Performed By: #### L 100.0100, L501.4021 #### [facility] [address] [place], [address] Erythrocyte distribution width (RBC) [Ratio] 12.5 % Normal 11.6-14.6 [facility] Comment on above: Performed By: #### L 100.0100, L501.4021 #### [facility] [address] [place], [address] Hematocrit (Bld) [Volume fraction] 41.4 % Normal 37-47 [facility] Comment on above: Performed By: #### L 100.0100, L501.4021 #### [facility] [address] [place], [address] Hemoglobin (Bld) [Mass/Vol] 13.7 g/dL Normal 12.0-15.0 [facility] Comment on above: Performed By: #### L 100.0100, L501.4021 #### [facility] [address] [place], [address] IG% 0.600 Normal 0.0-0.9 [facility] Comment on above: Result Comment: IG% - Immature Granulocytes (promyelocytes, myelocytes and metamyelocytes) > 1% indicates that a LEFT SHIFT is Present. Performed By: #### L 100.0100, L501.4021 #### [facility] [address] [place], [address] Lymphocytes/100 WBC (Bld) 17.2 % Low 19-41 [facility] Comment on above: Performed By: #### L 100.0100, L501.4021 #### [facility] [address] [place], [address] MCH (RBC) [Entitic mass] 30.4 pg Normal 27.0-32.0 [facility] Comment on above: Performed By: #### L 100.0100, L501.4021 #### [facility] [address] [place], [address] MCHC (RBC) [Mass/Vol] 33.1 g/dL Normal 32-36 [facility] Comment on above: Performed By: #### L 100.0100, L501.4021 #### [facility] [address] [place], [address] MCV (RBC) [Entitic vol] 92.0 fL Normal 81-99 [facility] Comment on above: Performed By: #### L 100.0100, L501.4021 #### [facility] [address] [place], [address] Monocytes/100 WBC (Bld) 10.2 % High 0-10 [facility] Comment on above: Performed By: #### L 100.0100, L501.4021 #### [facility] [address] [place], [address] Neutrophils/100 WBC (Bld) 70.3 % High 47-70 [facility] Comment on above: Performed By: #### L 100.0100, L501.4021 #### [facility] [address] [place], [address] Nucleated RBC (Bld) [#/Vol] 0 10*3/uL Normal 0-5 [facility] Comment on above: Performed By: #### L 100.0100, L501.4021 #### [facility] [address] [place], [address] Platelet mean volume (Bld) [Entitic vol] 9.8 fL Normal 6.2-12.0 [facility] Comment on above: Performed By: #### L 100.0100, L501.4021 #### [facility] [address] [place], [address] Platelets (Bld) [#/Vol] 228 10*3/uL Normal 150-450 [facility] Comment on above: Performed By: #### L 100.0100, L501.4021 #### [facility] [address] [place], [address] RBC (Bld) [#/Vol] 4.50 10*6/uL Normal 4.2-5.4 [facility] Comment on above: Performed By: #### L 100.0100, L501.4021 #### [facility] [address] [place], [address] RDW SD 42.3 fl Normal 35.1-43.9 [facility] Comment on above: Performed By: #### L 100.0100, L501.4021 #### [facility] [address] [place], [address] WBC (Bld) [#/Vol] 6.5 10*3/uL Normal 4.4-11.0 [facility] Comment on above: Performed By: #### L 100.0100, L501.4021 #### [facility] [address] [place], [place], [address] Carbon dioxide, total [Moles /volume] in Central venous bloodOrdered By: Donovan Pierson on 09-09-2024 CO2 [Moles/Vol] 27.5 mmol/L 21.0-32.0 [facility] Chest 1 View (Portable)on Chest 1 View (Portable) [facility] Imaging Services [address] [place], [place] [address] Chest 1 View (Portable) MR#: [id number] Acct: [id number] Name: AYAN CARRILLO Rep #: [id number] : 1945 F 79 From: Theron Grider MD PCP: Dr. Lilly Fletcher MD Status: [facility] ER Study: Chest 1 View (Portable) Date of Exam: 09/09/24 Exam# [id number] Ordering Dr: Donovan Pierson DO PROCEDURE: CHEST 1 VIEW (PORTABLE) 09/09/2024 REASON FOR EXAM: CHEST PAIN TECHNIQUE: Frontal view of the chest. COMPARISON: Chest radiograph on 08/02/2024 FINDINGS: Hardware: There is a medical writer overlying the mediastinum, new from prior. Heart: Cardiac and mediastinal contours are stable. Aortic atherosclerosis. Lungs: No focal consolidation or significant pleural effusion. Bones: Degenerative changes are identified within the thoracic spine. Surgical clips in the right upper quadrant of the abdomen. RAD/Chest 1 View (Portable) IMPRESSION: No acute cardiopulmonary abnormality. Reading Location: [id number] CC: Dr. Lilly Fletcher MD; Dr. Donovan Pierson DO Pet Care Technician: Signed Normal [facility] Chloride assayOrdered By: Joe Pierson on 09-09-2024 Chloride [Moles/Vol] 103 mmol/L 98-108 [facility] Emergency Department Summary on 09-09-2024 Emergency Department Summary [facility] Medical Records Department [address] [place] [address] Emergency Department Summary 09/09/24 MR#: [id number] Acct: [id number] Name: AYAN CARRILLO Rep #: [id number] : 1945 79 From: Donovan Pierson DO PCP: Dr. Lilly Fletcher MD Status:REG ER Location: ED HPI History of Present Illness Chief Complaint: Chest Pain Informant: patient Onset/Context/Timing Onset: Hours (6) Activity at onset: gradual Timing: Continuous Location: Substernal Worsened By: Exertion Relieved By: NTG Associated Symptoms: Positive for Dyspnea, Lightheadedness and Palpitations; Negative for Nausea, Vomiting, Diaphoresis, Cough, Fever or Acid Reflux Narrative Narrative: Patient presents with chest pain that began tonight. Patient states it began approximately 6 hours prior to arrival. Patient states it came on gradually. Patient states it has been constant. Patient states it became worse after she walked across the room and back. Patient states she took a Prilosec at home which did not help. Patient states she took sublingual nitroglycerin at home which helped. Patient called EMS. EMS gave the patient aspirin and nitroglycerin. Patient states her pain is better upon arrival to the emergency department. Patient admits to some slight shortness of breath and lightheadedness. Patient also admits to some palpitations. CVD Risk Factors: Positive for Hypertension; Negative for Diabetes, Hypercholesterolemia , Family History 1' PE Risk Factors: Negative for Recent Travel/Surgery, Recent Immobilization, Prior DVT or PE, Cancer or OCP + Smoking + >/=35 PFSH PFSH Medical History Myocardial infarction Obesity Essential (primary) hypertension Atherosclerotic heart disease of [place] coronary artery without angina pectoris Hyperlipidemia GERD (gastroesophageal reflux disease) Osteoarthritis Morbid obesity with BMI of 40.0-44.9, adult Home Medications ???Medication ???Instructions ???Recorded ???Last Taken ???Type aspirin 81 mg chewable tablet 81 mg PO QHS 10/24/10/24/15 His tory nitroglycerin 0.4 mg sublingual 0.4 mg sublingual Q5M PRN Chest Unknown Rx tablet Pain #25 tabs atorvastatin 40 mg tablet 40 mg PO QHS #90 tabs 08/01/24 Unk nown Rx omeprazole 20 mg capsule,delayed 20 mg PO DAILY #90 caps 08/01/24 U nknown Rx release carvedilol 25 mg tablet 25 mg PO BID Dose has been 5 Unknown Rx increased #180 tabs lisinopril 20 mg tablet 20 mg PO QHS #90 tabs 08/15/24 Unk nown Rx meloxicam 15 mg tablet 15 mg PO DAILY 09/09/24 Unknown Hi story Allergy/AdvReac Type Severity Reaction Status Date / Time hydrochlorothiazide AdvReac Intermediate Constipatio Verified 09/09/24 20:05 n Family History Father CAD (coronary artery [...] Denies chills or fever(s) Eyes Eyes: Denies blurry vision or change in vision ENT ENT ED: Denies rhinorrhea or sore throat Cardiovascular Cardiovascular: Denies chest pain or palpitations Respiratory/Chest Respiratory/Chest: Denies cough or dyspnea Gastrointestinal Gastrointestinal: Denies nausea or vomiting Genitourinary Genitourinary ED: Denies dysuria or hematuria Musculoskeletal Musculoskeletal: Denies back pain or neck pain Integumentary Denies abscess or rash Neurologic Neurologic: Denies headache(s) or weakness Allergic/Immunologic Allergic/Immunologic ED: Denies mouth swelling or urticaria EXAM Physical Exam Const Vital Signs: 09/09/24 20:06 09/09/24 20:09 09/09/24 20:26 Temperature 97.9 F Temperature Source Axillary Pulse Rate 64 Respiratory Rate 18 Respiratory Effort Normal Non-Labored Respiratory Pattern Normal Blood Pressure Blood Pressure Mean Pulse Ox 94 98 Oxygen Delivery Method Room Air Room Air 09/09/24 20:52 09/09/24 21:05 09/09/24 22:00 Temperature Temperature Source Pulse Rate 57 L 58 L 56 L Respiratory Rate 20 H 18 Respiratory Effort Respiratory Pattern Blood Pressure 139/82 H 159/70 H 162/72 H Blood Pressure Mean 99 102 Pulse Ox 94 95 Oxygen Delivery Method Room Air Room Air Positive well nourished and (more content not included)... Normal [facility] Eosinophil percentageOrdered By: Donovan Pierson on 09-09-2024 Eosinophils/100 WBC (Bld) 1.2 % 0-5 [facility] Erythrocyte distribution wid th ratioOrdered By: Donovanmaria del carmen Pierson on 09-09-2024 Erythrocyte distribution width (RBC) [Ratio] 12.5 % 11.6-14.6 [facility] Erythrocyte distribution wid th standard deviationOrdered By: Donovan Pierson on 09-09-2024 Erythrocyte distribution width (RBC) [Ratio] 42.3 fl 35.1-43.9 [facility] Glomerular filtration rate ( GFR) estimation/1.73 sq m using serum, plasma, or whole bOrdered By: Donovan Pierson on 09-09-2024 GFR/1.73 sq M.predicted among non-blacks MDRD (S/P/Bld) [Vol rate/Area] 92 mL/min/{1.73_m2} >60 [facility] Comment on above: mL/min/1.73m2 CKD-EP I Creatinine Equation (2020) Hematocrit Auto (Bld) [Volum e fraction]Ordered By: Donovan Pierson on 09-09-2024 Hematocrit (Bld) [Volume fraction] 41.4 % 37-47 [facility] Hemoglobin measurementOrdere d By: Donovan Pierson on 09-09-2024 Hemoglobin (Bld) [Mass/Vol] 13.7 g/dL 12.0-15.0 [facility] Immature granulocytes/100 WB C Auto (Bld)Ordered By: Donovan Pierson on 09-09-2024 Immature granulocytes/100 WBC (Bld) 0.600 % 0.0-0.9 [facility] Comment on above: IG% - Immature Granu locytes (promyelocytes, myelocytes and metamyelocytes) > 1% indicates that a LEFT SHIFT is Present. L499.0042on 09-09-2024 Trop T High Sen 14 ng/L Normal <=14 [facility] Comment on above: Performed By: #### L 499.0042 #### [facility] [address] [place], [address] L501.4021on 09-09-2024 Trop T High Sen 14 ng/L Normal <=14 [facility] Comment on above: Performed By: #### L 100.0100, L501.4021 #### [facility] [address] [place], [address] L503.7505on 09-09-2024 Natriuretic peptide B (Bld) [Mass/Vol] 468 pg/mL Normal <=1800 [facility] Comment on above: Result Comment: Hear t Failure Unlikely: < 300 pg/mL Heart Failure Likely < 50 Years: > 450 pg/mL 50-75 Years: > 900 pg/mL >75 Years: > 1800 pg/mL Performed By: #### L 503.7505, L500.2500 #### [facility] [address] [place], [address] MCV (mean corpuscular volume ) determinationOrdered By: Donovan Pierson on 09-09-2024 MCV (RBC) [Entitic vol] 92.0 fL 81-99 [facility] Mean corpuscular hemoglobin (MCH) determinationOrdered By: Donovan Pierson on 09-09-2024 MCH (RBC) [Entitic mass] 30.4 pg 27.0-32.0 [facility] Mean corpuscular hemoglobin concentration (MCHC) determinationOrdered By: Donovan Pierson on 09-09-2024 MCHC (RBC) [Mass/Vol] 33.1 g/dL 32-36 [facility] Mean platelet volume determi nationOrdered By: Donovan Pierson on 09-09-2024 Platelet mean volume (Bld) [Entitic vol] 9.8 fL 6.2-12.0 [facility] Monocyte percentageOrdered B y: Donovan Pierson on 09-09-2024 Monocytes/100 WBC (Bld) 10.2 % High 0-10 [facility] Natriuretic peptide.B prohor len N-Terminal [Mass/volume] in Serum or PlasmaOrdered By: Donovan Pierson on 09-09-2024 Natriuretic peptide.B prohormone N-Terminal [Mass/Vol] 468 pg/mL <1800 [facility] Comment on above: Heart Failure Unlike ly: < 300 pg/mLHeart Failure Likely< 50 Years: > 450 pg/mL50-75 Years: > 900 pg/mL>75 Years: > 1800 pg/mL Neutrophil percentageOrdered By: Donovan Pierson on 09-09-2024 Neutrophils/100 WBC (Bld) 70.3 % High 47-70 [facility] Nucleated red blood cell per centageOrdered By: Donovan Pierson on 09-09-2024 Nucleated RBC/100 WBC (Bld) [Ratio] 0 % 0-5 [facility] Platelet countOrdered By: Joe Pierson on 09-09-2024 Platelets (Bld) [#/Vol] 228 10*3/uL 150-450 [facility] Potassium measurement (mass/ volume)Ordered By: Donovan Pierson on 09-09-2024 Potassium (Unsp spec) [Mass/Vol] 4.6 mmol/L 3.3-5.1 [facility] RBC Auto (Bld) [#/Vol]Ordere d By: Donovan Pierson on 09-09-2024 RBC (Bld) [#/Vol] 4.50 10*6/uL 4.2-5.4 [facility] Serum creatinine measurement (mass/volume)Ordered By: Donovan Pierson on 09-09-2024 Creatinine [Mass/Vol] 0.55 mg/dL Low 0.70-1.20 [facility] Serum glucose measurement (m ass/volume)Ordered By: Donovan Pierson on 09-09-2024 Glucose [Mass/Vol] 120 mg/dL High 70-99 [facility] Serum or plasma calcium aaron urement (mass/volume)Ordered By: Donovan Pierson on 09-09-2024 Calcium [Mass/Vol] 10.4 mg/dL 7.6-11.0 [facility] Serum or plasma urea nitroge n measurement (mass/volume)Ordered By: Donovan Pierson on 09-09-2024 Urea nitrogen [Mass/Vol] 19 mg/dL 4-19 [facility] Sodium levelOrdered By: Donovan Pierson on 09-09-2024 Sodium [Moles/Vol] 139 mmol/L 133-145 [facility] Troponin T.cardiac [Mass/vol ume] in Serum or Plasma by High sensitivity methodOrdered By: Donovan Pierson on 09-09-2024 Troponin T.cardiac High sensitivity method [Mass/Vol] 14 ng/L <14 [facility] Troponin T.cardiac High sensitivity method [Mass/Vol] 14 ng/L <14 [facility] Comment on above: Delta: 18 on 5-0350 White blood cell (WBC) count Ordered By: Donovan Pierson on 09-09-2024 WBC (Bld) [#/Vol] 6.5 10*3/uL 4.4-11.0 [facility] Cardiology Visit Reporton Cardiology Visit Report [facility] [address] [place] [address] OFFICE VISIT Date of Service: 09/05/24 MR#: [id number] Acct: [id number] Name: AYAN CARRILLO Rep #: [id number] : 1945 Provider: MONICA valerio Age/Sex: 79/F Location: [facility] [place] Status: Signed HPI HPI History of Present [...] NIBP Intake Visit Reasons: 4-6 WK FU Vat House Supervisor Required: No Accompanied by: Granddaughter Is patient [...] Essential (primary) hypertension Atherosclerotic heart disease of [place] coronary artery without angina pectoris Hyperlipidemia GERD [...] visual inspection (more content not included)... Normal [facility] Cardiology Visit Reporton Cardiology Visit Report [facility] [facility] [facility] [address] [place] [address] OFFICE VISIT Date of Service: 08/15/24 MR#: [id number] Acct: [id number] Name: AYAN CARRILLO Rep #: [id number] : 1945 Provider: MONICA valerio Age/Sex: 79/F [place] [facility] [place]: Signed HPI HPI History of Present [...] Source Monitor Intake Visit Reasons: 6 M Vat House Supervisor Required: No Accompanied by: Granddaughter Is patient [...] Essential (primary) hypertension Atherosclerotic heart disease of [place] coronary artery without angina pectoris Hyperlipidemia GERD [...] Nose: external (more content not included)... Normal [facility] 12 Lead EKGon 08-02-2024 12 Lead EKG [facility] Cardiovascular Services [address] [place] [address] 12 Lead EKG 08/02/24 0504 MR#: [id number] Acct: [id number] Name: AYAN CARRILLO Rep #: [id number] : 1945 79 From: Lupe Rodriguez MD [...] : 436 ms Sinus rhythm with short W[place] Septal infarct , age undetermined Abnormal ECG Confirmed by DARIEL OHARA, ANGÉLICA ([id number]), field map editor MU CERVANTES ([id number]) on 08/08/2024 7:03:53 AM Referred By: Confirmed By: ANGÉLICA RODRIGUEZ MD 08/08/24 0703 Date Lupe Rodriguez MD CC: Dr. Lilly Fletcher MD; Dr. Jaylen Jack DO Signed Normal [facility] Absolute lymphocyte countOrd ered By: Jaylen Jack on 08-02-2024 Lymphocytes Auto (Unsp spec) [#/Vol] 1.11 10*3/uL 0.83-4.51 [facility] Absolute neutrophil countOrd ered By: Jaylen Jack on 08-02-2024 Neutrophils (Bld) [#/Vol] 4.9 10*3/uL 2.0-7.7 [facility] Anion gap in Serum or Plasma Ordered By: Jaylen Jack on 08-02-2024 Anion gap [Moles/Vol] 10 mmol/L 5-15 [facility] Automated lymphocyte count a s percentage of total leukocytesOrdered By: Jaylen Jack on 08-02-2024 Lymphocytes/100 WBC Auto (Unsp spec) 16.3 % Low 19-41 [facility] BUN/creatinine ratioOrdered By: Jaylen Jack on 08-02-2024 Urea nitrogen/Creatinine [Mass ratio] 38.1 mg/mg High 10-20 [facility] Basophil percentageOrdered B y: Jaylen Jack on 08-02-2024 Basophils/100 WBC (Bld) 0.4 % 0-1 [facility] Bilirubin Test strip Ql (U)O rdered By: Jaylen Jack on 08-02-2024 Bilirubin Ql (U) Negative Negative [facility] Bilirubin, totalOrdered By: Jaylen Jack on 08-02-2024 Bilirubin [Mass/Vol] 0.61 mg/dL 0.00-1.30 [facility] Brain/Head without Contrasto n 08-02-2024 Brain/Head without Contrast [facility] Imaging Services [address] [place], [place] [address] Brain/Head without Contrast MR#: [id number] Acct: [id number] Name: AYAN CARRILLO Rep #: [id number] : 1945 F 79 From: Kervin correia MD PCP: Dr. Lilly Fletcher MD Status: REG ER Study: Brain/Head without Contrast Date of Exam: 05/24 Exam# [id number] Ordering Dr: Jaylen Jack DO PROCEDURE: BRAIN/HEAD [...] evidence for acute brain abnormality. Reading Location: [place] [address] CC: Dr. Lilly Fletcher MD; Dr. Jaylen Jack DO Pet Care Technician: Signed Normal [facility] CBC W/Diff, Automatedon 06-0 -2024 Absolute Lymph 1.11 X10 3/uL Normal 0.83-4.51 [facility] Comment on above: Performed By: #### L 100.0100, L503.6005, L501.4021, L500.4050 #### [facility] [address] [place], [address] Absolute Neut 4.9 X10 3/uL Normal 2.0-7.7 [facility] Comment on above: Performed By: #### L 100.0100, L503.6005, L501.4021, L500.4050 #### [facility] [address] [place], [address] Basophils/100 WBC (Bld) 0.4 % Normal 0-1 [facility] Comment on above: Performed By: #### L 100.0100, L503.6005, L501.4021, L500.4050 #### [facility] [address] [place], [address] Eosinophils/100 WBC (Bld) 1.5 % Normal 0-5 [facility] Comment on above: Performed By: #### L 100.0100, L503.6005, L501.4021, L500.4050 #### [facility] [address] [place], [address] Erythrocyte distribution width (RBC) [Ratio] 12.6 % Normal 11.6-14.6 [facility] Comment on above: Performed By: #### L 100.0100, L503.6005, L501.4021, L500.4050 #### [facility] [address] [place], [address] Hematocrit (Bld) [Volume fraction] 42.2 % Normal 37-47 [facility] Comment on above: Performed By: #### L 100.0100, L503.6005, L501.4021, L500.4050 #### [facility] [address] [place], [address] Hemoglobin (Bld) [Mass/Vol] 13.8 g/dL Normal 12.0-15.0 [facility] Comment on above: Performed By: #### L 100.0100, L503.6005, L501.4021, L500.4050 #### [facility] [address] [place], [address] IG% 0.600 Normal 0.0-0.9 [facility] Comment on above: Result Comment: IG% - Immature Granulocytes (promyelocytes, myelocytes and metamyelocytes) > 1% indicates that a LEFT SHIFT is Present. Performed By: #### L 100.0100, L503.6005, L501.4021, L500.4050 #### [facility] [address] [place], [address] Lymphocytes/100 WBC (Bld) 16.3 % Low 19-41 [facility] Comment on above: Performed By: #### L 100.0100, L503.6005, L501.4021, L500.4050 #### [facility] [address] [place], [address] MCH (RBC) [Entitic mass] 30.7 pg Normal 27.0-32.0 [facility] Comment on above: Performed By: #### L 100.0100, L503.6005, L501.4021, L500.4050 #### [facility] [address] [place], [address] MCHC (RBC) [Mass/Vol] 32.7 g/dL Normal 32-36 [facility] Comment on above: Performed By: #### L 100.0100, L503.6005, L501.4021, L500.4050 #### [facility] [address] [place], [address] MCV (RBC) [Entitic vol] 93.8 fL Normal 81-99 [facility] Comment on above: Performed By: #### L 100.0100, L503.6005, L501.4021, L500.4050 #### [facility] [address] [place], [address] Monocytes/100 WBC (Bld) 9.1 % Normal 0-10 [facility] Comment on above: Performed By: #### L 100.0100, L503.6005, L501.4021, L500.4050 #### [facility] [address] [place], [address] Neutrophils/100 WBC (Bld) 72.1 % High 47-70 [facility] Comment on above: Performed By: #### L 100.0100, L503.6005, L501.4021, L500.4050 #### [facility] [address] [place], [address] Nucleated RBC (Bld) [#/Vol] 0 10*3/uL Normal 0-5 [facility] Comment on above: Performed By: #### L 100.0100, L503.6005, L501.4021, L500.4050 #### [facility] [address] [place], [address] Platelet mean volume (Bld) [Entitic vol] 10.0 fL Normal 6.2-12.0 [facility] Comment on above: Performed By: #### L 100.0100, L503.6005, L501.4021, L500.4050 #### [facility] [address] [place], [address] Platelets (Bld) [#/Vol] 201 10*3/uL Normal 150-450 [facility] Comment on above: Performed By: #### L 100.0100, L503.6005, L501.4021, L500.4050 #### [facility] [address] [place], [address] RBC (Bld) [#/Vol] 4.50 10*6/uL Normal 4.2-5.4 [facility] Comment on above: Performed By: #### L 100.0100, L503.6005, L501.4021, L500.4050 #### [facility] [address] [place], [address] RDW SD 43.5 fl Normal 35.1-43.9 [facility] Comment on above: Performed By: #### L 100.0100, L503.6005, L501.4021, L500.4050 #### [facility] [address] [place], [address] WBC (Bld) [#/Vol] 6.8 10*3/uL Normal 4.4-11.0 [facility] Comment on above: Performed By: #### L 100.0100, L503.6005, L501.4021, L500.4050 #### [facility] [address] [place], [address] Carbon dioxide, total [Moles /volume] in Central venous bloodOrdered By: Jaylen Jack on 08-02-2024 CO2 [Moles/Vol] 26.4 mmol/L 21.0-32.0 [facility] Chest 1 View (Portable)on Chest 1 View (Portable) [facility] Imaging Services [address] [place], [place] [address] Chest 1 View (Portable) MR#: [id number] Acct: [id number] Name: AYAN CARRILLO Rep #: [id number] : 1945 F 79 From: Kervin correia MD PCP: Dr. Lilly Fletcher MD Status: REG ER Study: Chest 1 View (Portable) Date of Exam: 08/02/24 Exam# [id number] Ordering Dr: Jaylen Jack DO PROCEDURE: CHEST [...] bilateral basilar atelectatic pulmonary changes. Reading Location: [place] [address] CC: Dr. Lilly Fletcher MD; Dr. Jaylen Jack DO Pet Care Technician: Signed Normal [facility] Chloride assayOrdered By: Lincoln Jack on 08-02-2024 Chloride [Moles/Vol] 105 mmol/L 98-108 [facility] Comprehensive Metabolic Prof ilon 08-02-2024 Albumin [Mass/Vol] 3.6 g/dL Normal 3.4-4.8 [facility] Comment on above: Performed By: #### L 100.0100, L503.6005, L501.4021, L500.4050 #### [facility] [address] [place], [address] Albumin/Globulin [Mass ratio] 1.2 {ratio} Normal 0.9-2.4 [facility] Comment on above: Performed By: #### L 100.0100, L503.6005, L501.4021, L500.4050 #### [facility] [address] [place], [address] ALK PHOS 107 U/L High 35-104 [facility] Comment on above: Performed By: #### L 100.0100, L503.6005, L501.4021, L500.4050 #### [facility] [address] [place], [address] ALT [Catalytic activity/Vol] 13 U/L Normal <=34 [facility] Comment on above: Performed By: #### L 100.0100, L503.6005, L501.4021, L500.4050 #### [facility] [address] [place], [address] AST [Catalytic activity/Vol] 17 U/L Normal <=31 [facility] Comment on above: Performed By: #### L 100.0100, L503.6005, L501.4021, L500.4050 #### [facility] [address] [place], [address] Bilirubin [Mass/Vol] 0.61 mg/dL Normal 0.00-1.30 [facility] Comment on above: Performed By: #### L 100.0100, L503.6005, L501.4021, L500.4050 #### [facility] [address] [place], [address] BUN/CRE 38.1 RATIO High 10-20 [facility] Comment on above: Performed By: #### L 100.0100, L503.6005, L501.4021, L500.4050 #### [facility] [address] [place], [address] Calcium [Mass/Vol] 10.5 mg/dL Normal 7.6-11.0 [facility] Comment on above: Performed By: #### L 100.0100, L503.6005, L501.4021, L500.4050 #### [facility] [address] [place], [address] Chloride [Moles/Vol] 105 mmol/L Normal 98-108 [facility] Comment on above: Performed By: #### L 100.0100, L503.6005, L501.4021, L500.4050 #### [facility] [address] [place], [address] CO2 [Moles/Vol] 26.4 mmol/L Normal 21.0-32.0 [facility] Comment on above: Performed By: #### L 100.0100, L503.6005, L501.4021, L500.4050 #### [facility] [address] [place], [address] Creatinine [Mass/Vol] 0.60 mg/dL Low 0.70-1.20 [facility] Comment on above: Performed By: #### L 100.0100, L503.6005, L501.4021, L500.4050 #### [facility] [address] [place], [address] ECRCL 58.03 ml/min Normal 50-250 [facility] Comment on above: Performed By: #### L 100.0100, L503.6005, L501.4021, L500.4050 #### [facility] [address] [place], [address] GAP 10 Normal 5-15 [facility] Comment on above: Performed By: #### L 100.0100, L503.6005, L501.4021, L500.4050 #### [facility] [address] [place], [address] GFR/1.73 sq M.predicted among non-blacks MDRD (S/P/Bld) [Vol rate/Area] 91 mL/min/{1.73_m2} Normal >60 [facility] Comment on above: Result Comment: mL/m in/1.73m2 CKD-EPI Creatinine Equation (2020) Performed By: #### L 100.0100, L503.6005, L501.4021, L500.4050 #### [facility] [address] [place], [address] Globulin (S) [Mass/Vol] 2.9 g/dL Normal 2.2-4.2 [facility] Comment on above: Performed By: #### L 100.0100, L503.6005, L501.4021, L500.4050 #### [facility] [address] [place], [address] Glucose [Mass/Vol] 117 mg/dL High 70-99 [facility] Comment on above: Performed By: #### L 100.0100, L503.6005, L501.4021, L500.4050 #### [facility] [address] [place], [address] Potassium [Moles/Vol] 3.8 mmol/L Normal 3.3-5.1 [facility] Comment on above: Performed By: #### L 100.0100, L503.6005, L501.4021, L500.4050 #### [facility] [address] [place], [address] Sodium [Moles/Vol] 142 mmol/L Normal 133-145 [facility] Comment on above: Performed By: #### L 100.0100, L503.6005, L501.4021, L500.4050 #### [facility] [address] [place], [address] T PROT 6.5 g/dL Normal 5.9-8.4 [facility] Comment on above: Performed By: #### L 100.0100, L503.6005, L501.4021, L500.4050 #### [facility] [address] [place], [address] Urea nitrogen [Mass/Vol] 23 mg/dL High - [facility] Comment on above: Performed By: #### L 100.0100, L503.6005, L501.4021, L500.4050 #### [facility] [address] [place], [address] Emergency Department Summary on 08-02-2024 Emergency Department Summary [facility] Medical Records Department [address] [place] [address] Emergency Department Summary 08/02/24 MR#: [id number] Acct: [id number] Name: AYAN CARRILLO Rep #: [id number] : 1945 79 From: Jaylen Jack DO PCP: Dr. Lilly Fletcher MD Status:REG ER Location: ED HPI History of Present Illness Chief Complaint: Weakness [facility] Medical History (Updated 08/02/24 @ 06:[address] Jaylen Jack DO) Myocardial infarction Obesity Essential (primary) hypertension Atherosclerotic heart disease of [place] coronary artery without angina pectoris Hyperlipidemia GERD [...] lightheadedness Atrial female history of of CAD, [place] status post stent, hypertension, hyperlipidemia presents with [...] DECISION MAKING: (more content not included)... Normal [facility] Eosinophil percentageOrdered By: Jaylen Jack on 08-02-2024 Eosinophils/100 WBC (Bld) 1.5 % 0-5 [facility] Erythrocyte distribution wid th ratioOrdered By: Jaylen Jack on 08-02-2024 Erythrocyte distribution width (RBC) [Ratio] 12.6 % 11.6-14.6 [facility] Erythrocyte distribution wid th standard deviationOrdered By: Jaylen Jack on 08-02-2024 Erythrocyte distribution width (RBC) [Ratio] 43.5 fl 35.1-43.9 [facility] Glomerular filtration rate ( GFR) estimation/1.73 sq m using serum, plasma, or whole bOrdered By: Jaylen Jack on 08-02-2024 GFR/1.73 sq M.predicted among non-blacks MDRD (S/P/Bld) [Vol rate/Area] 91 mL/min/{1.73_m2} >60 [facility] Comment on above: mL/min/1.73m2 CKD-EP I Creatinine Equation (2020) Hematocrit Auto (Bld) [Volum e fraction]Ordered By: Jaylen Jack on 08-02-2024 Hematocrit (Bld) [Volume fraction] 42.2 % 37-47 [facility] Hemoglobin measurementOrdere d By: Jaylen Jack on 08-02-2024 Hemoglobin (Bld) [Mass/Vol] 13.8 g/dL 12.0-15.0 [facility] Immature granulocytes/100 WB C Auto (Bld)Ordered By: Jaylen Jack on 08-02-2024 Immature granulocytes/100 WBC (Bld) 0.600 % 0.0-0.9 [facility] Comment on above: IG% - Immature Granu locytes (promyelocytes, myelocytes and metamyelocytes) > 1% indicates that a LEFT SHIFT is Present. Ketones Test strip Ql (U)Ord ered By: Jaylen Jack on 08-02-2024 Ketones Ql (U) Negative Negative [facility] L501.4021on 08-02-2024 Trop T High Sen 18 ng/L High <=14 [facility] Comment on above: Performed By: #### L 503.7505, L500.2500 #### [facility] [address] [place], [place], [address] Laboratory - Chemistry and C hemistry - challengeOrdered By: Jaylen Jack on 08-02-2024 AST [Catalytic activity/Vol] 17 U/L <32 [facility] Lactic acid measurementOrder ed By: Jaylen Jack on 08-02-2024 Lactate [Moles/Vol] 1.2 mmol/L Normal 0.0-2.0 [facility] Comment on above: Order Comment: Y Performed By: #### L 503.7505, L500.2500 #### [facility] [address] [place], [place], [id number] MCV (mean corpuscular volume ) determinationOrdered By: Jaylen Jack on 08-02-2024 MCV (RBC) [Entitic vol] 93.8 fL 81-99 [facility] Mean corpuscular hemoglobin (MCH) determinationOrdered By: Jaylen Jack on 08-02-2024 MCH (RBC) [Entitic mass] 30.7 pg 27.0-32.0 [facility] Mean corpuscular hemoglobin concentration (MCHC) determinationOrdered By: Jaylen Jack on 08-02-2024 MCHC (RBC) [Mass/Vol] 32.7 g/dL 32-36 [facility] Mean platelet volume determi nationOrdered By: Jaylen Jack on 08-02-2024 Platelet mean volume (Bld) [Entitic vol] 10.0 fL 6.2-12.0 [facility] Microscopic analysis of urin e for red blood cells (RBC)Ordered By: Jaylen Jack on 08-02-2024 Microscopic analysis of urine for red blood cells (RBC) 0 SEEN /hpf 0-5 [facility] Monocyte percentageOrdered B y: Jaylen Jack on 08-02-2024 Monocytes/100 WBC (Bld) 9.1 % 0-10 [facility] Mucus LM Ql (Urine sed)Order ed By: Jaylen Jack on 08-02-2024 Mucus Ql (Urine sed) 0 SEEN /hpf [facility] Neutrophil percentageOrdered By: Jaylen Jack on 08-02-2024 Neutrophils/100 WBC (Bld) 72.1 % High 47-70 [facility] Nitrite Test strip Ql (U)Ord ered By: Jaylen Jack on 08-02-2024 Nitrite Ql (U) Negative Negative [facility] Nucleated red blood cell per centageOrdered By: Jaylen Jack on 08-02-2024 Nucleated RBC/100 WBC (Bld) [Ratio] 0 % 0-5 [facility] Platelet countOrdered By: Lincoln Jack on 08-02-2024 Platelets (Bld) [#/Vol] 201 10*3/uL 150-450 [facility] Potassium measurement (mass/ volume)Ordered By: Jaylen Jack on 08-02-2024 Potassium (Unsp spec) [Mass/Vol] 3.8 mmol/L 3.3-5.1 [facility] Protein Test strip Ql (U)Ord ered By: Jaylen Jack on 08-02-2024 Protein Ql (U) 30 mg/dl High Negative [facility] RBC Auto (Bld) [#/Vol]Ordere d By: Jaylen Jack on 08-02-2024 RBC (Bld) [#/Vol] 4.50 10*6/uL 4.2-5.4 [facility] Serum creatinine measurement (mass/volume)Ordered By: Jaylen Jack on 08-02-2024 Creatinine [Mass/Vol] 0.60 mg/dL Low 0.70-1.20 [facility] Serum globulin measurementOr dered By: Jaylen Jack on 08-02-2024 Globulin (S) [Mass/Vol] 2.9 g/dL 2.2-4.2 [facility] Serum glucose measurement (m ass/volume)Ordered By: Jaylen Jack on 08-02-2024 Glucose [Mass/Vol] 117 mg/dL High 70-99 [facility] Serum or plasma alanine rajput otransferase (ALT) measurementOrdered By: Jaylen Jack on 08-02-2024 ALT [Catalytic activity/Vol] 13 U/L <35 [facility] Serum or plasma albumin aaron urement (mass/volume)Ordered By: Jaylen Jack on 08-02-2024 Albumin [Mass/Vol] 3.6 g/dL 3.4-4.8 [facility] Serum or plasma albumin/glob ulin mass ratioOrdered By: Jaylen Jack on 08-02-2024 Albumin/Globulin [Mass ratio] 1.2 {ratio} 0.9-2.4 [facility] Serum or plasma alkaline bernardo sphatase measurementOrdered By: Jaylen Jack on 08-02-2024 ALP [Catalytic activity/Vol] 107 U/L High 35-104 [facility] Serum or plasma calcium aaron urement (mass/volume)Ordered By: Jaylen Jack on 08-02-2024 Calcium [Mass/Vol] 10.5 mg/dL 7.6-11.0 [facility] Serum or plasma urea nitroge n measurement (mass/volume)Ordered By: Jaylen Jack on 08-02-2024 Urea nitrogen [Mass/Vol] 23 mg/dL High 4-19 [facility] Sodium levelOrdered By: Ramos Jack on 08-02-2024 Sodium [Moles/Vol] 142 mmol/L 133-145 [facility] Squamous epithelial cells de tection in urine sediment by light microscopyOrdered By: Jaylen Jack on 08-02-2024 Epithelial cells.squamous LM Ql (Urine sed) 0-5 SEEN /hpf - [facility] Total proteinOrdered By: Olesya Jack on 08-02-2024 Protein [Mass/Vol] 6.5 g/dL 5.9-8.4 [facility] Troponin T.cardiac [Mass/vol ume] in Serum or Plasma by High sensitivity methodOrdered By: Jaylen Jack on 08-02-2024 Troponin T.cardiac High sensitivity method [Mass/Vol] 18 ng/L High <14 [facility] Urinalysis, Completeon 08-02 BACTERIA RARE Normal None Seen [facility] Comment on above: Order Comment: MAYA CTOR TO SPECIFY Performed By: #### L 503.7505, L500.2500 #### [facility] [address] [place], [address] EPI,SQUAMOUS 0-5 SEEN Normal 5-10 [facility] Comment on above: Order Comment: MAYA CTOR TO SPECIFY Performed By: #### L 503.7505, L500.2500 #### [facility] [address] [place], [address] WBC 0-5 SEEN Normal 0-5 [facility] Comment on above: Order Comment: COLLE CTOR TO SPECIFY Performed By: #### L 503.7505, L500.2500 #### [facility] [address] [place], [address] Mucus Ql (Urine sed) 0 SEEN Normal [facility] Comment on above: Order Comment: COLLE CTOR TO SPECIFY Performed By: #### L 503.7505, L500.2500 #### [facility] [address] [place], [place], [address] RBC 0 SEEN Normal 0-5 [facility] Comment on above: Order Comment: COLLE CTOR TO SPECIFY Performed By: #### L 503.7505, L500.2500 #### [facility] [address] [place], [place], [id number] Urine clarityOrdered By: Olesya Jack on 08-02-2024 Clarity (U) Sl. Cloudy Clear [facility] Urine color determinationOrd ered By: Jaylen Jack on 08-02-2024 Color (U) Yellow Yellow [facility] Urine glucose detectionOrder ed By: Jaylen Jack on 08-02-2024 Glucose Ql (U) Normal mg/dl Normal [facility] Urine leukocyte esterase det ection by dipstickOrdered By: Jaylen Jack on 08-02-2024 Leukocyte esterase Test strip Ql (U) Negative Negative [facility] Urine pHOrdered By: Jaylen carroll on 08-02-2024 pH (U) 6.0 [pH] 5.0 - 8.0 [facility] Urine sediment bacteria coun t by microscopy (number/high power field)Ordered By: Jaylen Jack on 08-02-2024 Bacteria LM.HPF (Urine sed) [#/Area] RARE /hpf None Seen [facility] Urine specific gravity measu rementOrdered By: Jaylen Jack on 08-02-2024 Specific gravity (U) [Rel density] 1.020 1.002-1.030 [facility] Urine urobilinogen measureme ntOrdered By: Jaylen Jack on 08-02-2024 Urobilinogen Ql (U) Normal mg/dl Normal [facility] White blood cell (WBC) count Ordered By: Jaylen Jack on 08-02-2024 WBC (Bld) [#/Vol] 6.8 10*3/uL 4.4-11.0 [facility] White blood cell countOrdere d By: Jaylen Jack on 08-02-2024 White blood cell count 0-5 SEEN /hpf 0-5 [facility] Absolute lymphocyte countOrd ered By: Jennifer Meléndez on 06-18-2024 Lymphocytes Auto (Unsp spec) [#/Vol] 1.33 10*3/uL 0.83-4.51 [facility] Absolute neutrophil countOrd ered By: Jennifer Santosgloria on 06-18-2024 Neutrophils (Bld) [#/Vol] 5.2 10*3/uL 2.0-7.7 [facility] Anion gap in Serum or Plasma Ordered By: Jenniferpreston Meléndez on 06-18-2024 Anion gap [Moles/Vol] 9 mmol/L 5- [facility] Automated lymphocyte count a s percentage of total leukocytesOrdered By: Jennifer Rika on 06-18-2024 Lymphocytes/100 WBC Auto (Unsp spec) 18.1 % Low [facility] BUN/creatinine ratioOrdered By: Jennifer Meléndez on 06-18-2024 Urea nitrogen/Creatinine [Mass ratio] 38.3 mg/mg High - [facility] Basic Metabolic Profile (BMP )on 06-18-2024 BUN/CRE 38.3 RATIO High - [facility] Comment on above: Performed By: #### L 500.2500, L100.0100 #### [facility] [address] [place], [address] Calcium [Mass/Vol] 10.4 mg/dL Normal 7.6-11.0 [facility] Comment on above: Performed By: #### L 500.2500, L100.0100 #### [facility] [address] [place], [address] Chloride [Moles/Vol] 102 mmol/L Normal 98-108 [facility] Comment on above: Performed By: #### L 500.2500, L100.0100 #### [facility] [address] [place], [address] CO2 [Moles/Vol] 27.6 mmol/L Normal 21.0-32.0 [facility] Comment on above: Performed By: #### L 500.2500, L100.0100 #### [facility] [address] [place], [address] Creatinine [Mass/Vol] 0.70 mg/dL Normal 0.70-1.20 [facility] Comment on above: Performed By: #### L 500.2500, L100.0100 #### [facility] [address] [place], [address] ECRCL 59.54 ml/min Normal 50-250 [facility] Comment on above: Performed By: #### L 500.2500, L100.0100 #### [facility] [address] [place], [address] GAP 9 Normal 5-15 [facility] Comment on above: Performed By: #### L 500.2500, L100.0100 #### [facility] [address] [place], [address] GFR/1.73 sq M.predicted among non-blacks MDRD (S/P/Bld) [Vol rate/Area] 88 mL/min/{1.73_m2} Normal >60 [facility] Comment on above: Result Comment: mL/m in/1.73m2 CKD-EPI Creatinine Equation (2020) Performed By: #### L 500.2500, L100.0100 #### [facility] [address] [place], [address] Glucose [Mass/Vol] 114 mg/dL High 70-99 [facility] Comment on above: Performed By: #### L 500.2500, L100.0100 #### [facility] [address] [place], [address] Potassium [Moles/Vol] 4.5 mmol/L Normal 3.3-5.1 [facility] Comment on above: Performed By: #### L 500.2500, L100.0100 #### [facility] [address] [place], [address] Sodium [Moles/Vol] 139 mmol/L Normal 133-145 [facility] Comment on above: Performed By: #### L 500.2500, L100.0100 #### [facility] [address] [place], [address] Urea nitrogen [Mass/Vol] 27 mg/dL High - [facility] Comment on above: Performed By: #### L 500.2500, L100.0100 #### [facility] [address] [place], [address] Basophil percentageOrdered B y: Jennifer Rika on 06-18-2024 Basophils/100 WBC (Bld) 0.3 % 0-1 [facility] CBC W/Diff, Automatedon 05-31 Absolute Lymph 1.33 X10 3/uL Normal 0.83-4.51 [facility] Comment on above: Performed By: #### L 500.2500, L100.0100 #### [facility] [address] [place], [address] Absolute Neut 5.2 X10 3/uL Normal 2.0-7.7 [facility] Comment on above: Performed By: #### L 500.2500, L100.0100 #### [facility] [address] [place], [address] Basophils/100 WBC (Bld) 0.3 % Normal 0-1 [facility] Comment on above: Performed By: #### L 500.2500, L100.0100 #### [facility] [address] [place], [address] Eosinophils/100 WBC (Bld) 1.0 % Normal 0-5 [facility] Comment on above: Performed By: #### L 500.2500, L100.0100 #### [facility] [address] [place], [address] Erythrocyte distribution width (RBC) [Ratio] 12.6 % Normal 11.6-14.6 [facility] Comment on above: Performed By: #### L 500.2500, L100.0100 #### [facility] [address] [place], [address] Hematocrit (Bld) [Volume fraction] 42.3 % Normal 37-47 [facility] Comment on above: Performed By: #### L 500.2500, L100.0100 #### [facility] [address] [place], [address] Hemoglobin (Bld) [Mass/Vol] 14.1 g/dL Normal 12.0-15.0 [facility] Comment on above: Performed By: #### L 500.2500, L100.0100 #### [facility] [address] [place], [address] IG% 0.400 Normal 0.0-0.9 [facility] Comment on above: Result Comment: IG% - Immature Granulocytes (promyelocytes, myelocytes and metamyelocytes) > 1% indicates that a LEFT SHIFT is Present. Performed By: #### L 500.2500, L100.0100 #### [facility] [address] [place], [address] Lymphocytes/100 WBC (Bld) 18.1 % Low 19-41 [facility] Comment on above: Performed By: #### L 500.2500, L100.0100 #### [facility] [address] [place], [address] MCH (RBC) [Entitic mass] 30.4 pg Normal 27.0-32.0 [facility] Comment on above: Performed By: #### L 500.2500, L100.0100 #### [facility] [address] [place], [address] MCHC (RBC) [Mass/Vol] 33.3 g/dL Normal 32-36 [facility] Comment on above: Performed By: #### L 500.2500, L100.0100 #### [facility] [address] [place], [address] MCV (RBC) [Entitic vol] 91.2 fL Normal 81-99 [facility] Comment on above: Performed By: #### L 500.2500, L100.0100 #### [facility] [address] [place], [address] Monocytes/100 WBC (Bld) 9.1 % Normal 0-10 [facility] Comment on above: Performed By: #### L 500.2500, L100.0100 #### [facility] [address] [place], [address] Neutrophils/100 WBC (Bld) 71.1 % High 47-70 [facility] Comment on above: Performed By: #### L 500.2500, L100.0100 #### [facility] [address] [place], [address] Nucleated RBC (Bld) [#/Vol] 0 10*3/uL Normal 0-5 [facility] Comment on above: Performed By: #### L 500.2500, L100.0100 #### [facility] [address] [place], [address] Platelet mean volume (Bld) [Entitic vol] 9.3 fL Normal 6.2-12.0 [facility] Comment on above: Performed By: #### L 500.2500, L100.0100 #### [facility] [address] [place], [address] Platelets (Bld) [#/Vol] 222 10*3/uL Normal 150-450 [facility] Comment on above: Performed By: #### L 500.2500, L100.0100 #### [facility] [address] [place], [address] RBC (Bld) [#/Vol] 4.64 10*6/uL Normal 4.2-5.4 [facility] Comment on above: Performed By: #### L 500.2500, L100.0100 #### [facility] [address] [place], [address] RDW SD 41.5 fl Normal 35.1-43.9 [facility] Comment on above: Performed By: #### L 500.2500, L100.0100 #### [facility] [address] [place], [address] WBC (Bld) [#/Vol] 7.3 10*3/uL Normal 4.4-11.0 [facility] Comment on above: Performed By: #### L 500.2500, L100.0100 #### [facility] [address] [place], [address] Carbon dioxide, total [Moles /volume] in Central venous bloodOrdered By: Jennifer Meléndez on 06-18-2024 CO2 [Moles/Vol] 27.6 mmol/L 21.0-32.0 [facility] Chloride assayOrdered By: Myriam Meléndez on 06-18-2024 Chloride [Moles/Vol] 102 mmol/L 98-108 [facility] Emergency Department Summary on 06-18-2024 Emergency Department Summary [facility] Medical Records Department [address] [place] [address] Emergency Department Summary 06/18/24 MR#: [id number] Acct: [id number] Name: AYAN CARRILLO Rep #: [id number] : 1945 78 From: Jennifer MAJOR PCP: [...] pain, shortness of breath, palpitations or syncope. [facility] Medical History Obesity Essential (primary) hypertension Atherosclerotic heart disease of [place] coronary artery without angina pectoris Hyperlipidemia GERD [...] [Lying] 95 (more content not included)... Normal [facility] Eosinophil percentageOrdered By: Jennifer Meléndez on 06-18-2024 Eosinophils/100 WBC (Bld) 1.0 % 0-5 [facility] Erythrocyte distribution wid th (RBC) [Ratio]Ordered By: Jennifer Meléndez on 06-18-2024 Erythrocyte distribution width (RBC) [Entitic vol] 41.5 fL 35.1-43.9 [facility] Erythrocyte distribution wid th ratioOrdered By: Jennifer Meléndez on 06-18-2024 Erythrocyte distribution width (RBC) [Ratio] 12.6 % 11.6-14.6 [facility] Erythrocyte distribution wid th standard deviationOrdered By: Jennifer Meléndez on 06-18-2024 Erythrocyte distribution width (RBC) [Ratio] 41.5 fl 35.1-43.9 [facility] Estimation of creatinine renea aranceOrdered By: Jennifer Meléndez on 06-18-2024 Estimated Creatinine Clearance Calc 59.54 ml/min 50-250 [facility] GFR/1.73 sq M.predicted bronson g non-blacks MDRD (S/P/Bld) [Vol rate/Area]Ordered By: Jennifer Meléndez on 06-18-2024 Estimated GFR (MDRD) Non-Af Amer 88 >60 [facility] Comment on above: mL/min/1.73m2 CKD-EP I Creatinine Equation (2020) Glomerular filtration rate ( GFR) estimation/1.73 sq m using serum, plasma, or whole bOrdered By: Jennifer Meléndez on 06-18-2024 GFR/1.73 sq M.predicted among non-blacks MDRD (S/P/Bld) [Vol rate/Area] 88 mL/min/{1.73_m2} >60 [facility] Comment on above: mL/min/1.73m2 CKD-EP I Creatinine Equation (2020) Hematocrit Auto (Bld) [Volum e fraction]Ordered By: Jennifer Meléndez on 06-18-2024 Hematocrit (Bld) [Volume fraction] 42.3 % 37-47 [facility] Hemoglobin measurementOrdere d By: Jennifer Meléndez on 06-18-2024 Hemoglobin (Bld) [Mass/Vol] 14.1 g/dL 12.0-15.0 [facility] Immature granulocytes/100 WB C Auto (Bld)Ordered By: Jennifer Meléndez on 06-18-2024 Immature granulocytes/100 WBC (Bld) 0.400 % 0.0-0.9 [facility] Comment on above: IG% - Immature Granu locytes (promyelocytes, myelocytes and metamyelocytes) > 1% indicates that a LEFT SHIFT is Present. Lymphocytes Auto (Unsp spec) [#/Vol]Ordered By: Jennifer Meléndez on 06-18-2024 Lymphocytes (Bld) [#/Vol] 1.33 10*3/uL 0.83-4.51 [facility] Lymphocytes/100 WBC Auto (Un sp spec)Ordered By: Jennifer Meléndez on 06-18-2024 Lymphocytes/100 WBC (Bld) 18.1 % Low 19-41 [facility] MCV (mean corpuscular volume ) determinationOrdered By: Jennifer Meléndez on 06-18-2024 MCV (RBC) [Entitic vol] 91.2 fL 81-99 [facility] Mean corpuscular hemoglobin (MCH) determinationOrdered By: Jennifer Meléndez on 06-18-2024 MCH (RBC) [Entitic mass] 30.4 pg 27.0-32.0 [facility] Mean corpuscular hemoglobin concentration (MCHC) determinationOrdered By: Jennifer Meléndez on 06-18-2024 MCHC (RBC) [Mass/Vol] 33.3 g/dL 32-36 [facility] Mean platelet volume determi nationOrdered By: Jennifer Meléndez on 06-18-2024 Platelet mean volume (Bld) [Entitic vol] 9.3 fL 6.2-12.0 [facility] Monocyte percentageOrdered B y: Jennifer Meléndez on 06-18-2024 Monocytes/100 WBC (Bld) 9.1 % 0-10 [facility] Neutrophil percentageOrdered By: Jennifer Meléndez on 06-18-2024 Neutrophils/100 WBC (Bld) 71.1 % High 47-70 [facility] Nucleated red blood cell per centageOrdered By: Jennifer Meléndez on 06-18-2024 Nucleated RBC/100 WBC (Bld) [Ratio] 0 % 0-5 [facility] Platelet countOrdered By: Myriam Meléndez on 06-18-2024 Platelets (Bld) [#/Vol] 222 10*3/uL 150-450 [facility] Potassium (Unsp spec) [Mass/ Vol]Ordered By: Jennifer Meléndez on 06-18-2024 Potassium [Moles/Vol] 4.5 mmol/L 3.3-5.1 [facility] Potassium measurement (mass/ volume)Ordered By: Jennifer Meléndez on 06-18-2024 Potassium (Unsp spec) [Mass/Vol] 4.5 mmol/L 3.3-5.1 [facility] RBC Auto (Bld) [#/Vol]Ordere d By: Jennifer Meléndez on 06-18-2024 RBC (Bld) [#/Vol] 4.64 10*6/uL 4.2-5.4 [facility] Serum creatinine measurement (mass/volume)Ordered By: Jennifer Meléndez on 06-18-2024 Creatinine [Mass/Vol] 0.70 mg/dL 0.70-1.20 [facility] Serum glucose measurement (m ass/volume)Ordered By: Jennifer Meléndez on 06-18-2024 Glucose [Mass/Vol] 114 mg/dL High 70-99 [facility] Serum or plasma calcium aaron urement (mass/volume)Ordered By: Jennifer Meléndez on 06-18-2024 Calcium [Mass/Vol] 10.4 mg/dL 7.6-11.0 [facility] Serum or plasma urea nitroge n measurement (mass/volume)Ordered By: Jennifer Meléndez on 06-18-2024 Urea nitrogen [Mass/Vol] 27 mg/dL High 4-19 [facility] Sodium levelOrdered By: Jennifer Meléndez on 06-18-2024 Sodium [Moles/Vol] 139 mmol/L 133-145 [facility] White blood cell (WBC) count Ordered By: Jennifer Meléndez on 06-18-2024 WBC (Bld) [#/Vol] 7.3 10*3/uL 4.4-11.0 [facility] Echo Complete W/ Contraston 10-06-2023 Echo Complete W/ Contrast [facility] [address] [place] [address] Echo Complete W/ Contrast 10/06/23 1404 MR#: [id number] Acct: [id number] Name: AYAN CARRILLO Rep #: [id number] : 1945 78 From: Elie Davis MD Attending Dr: Ginger Grace SMT OPERATOR-C Status: REG David Ordering Dr: Ginger Grace SMT OPERATOR SMT OPERATOR-C Date: 10/06/23 Location: [facility] Sex: F C [...] sec Doppler Measurements Calculations MV E max lazara: 79.9 cm/sec Lat Peak E' Lazara: 7.8 cm/sec Med Peak E' Lazara: 4.0 cm/sec MV A max lazara: 113.7 cm/sec E/E' lat: 10.3 E/E' med: 19.7 MV E/A: 0.70 _ MV V2 max: 134.3 cm/sec MV P1/2t max lazara: 84.9 cm/sec Ao V2 max: 169.9 cm/sec [...] PA V2 max: 117.3 cm/sec TR max lazara: 276.0 cm/sec LV V1 max P.3 mmHg [...] Fletcher M.D. Performed By: Ahmet Fish RCS 10/06/23 8297 Date Elie Davis MD CC: MONICA Grace; Dr. Lilly Fletcher MD Date Dictated: 10/06/23 1404 Date Transcribed: 10/06/231627 Pet Care Technician: Signed Normal [facility] Culture, urineOrdered By: Russell Markham on 03-25-2023 Bacteria identified Cx Nom (U) Mixed Gram Pos & Gram Neg Org [facility] Basophil percentageOrdered B y: Ginger Grace on 02-02-2023 Bilirubin [Mass/Vol] 0.70 mg/dL 0.20-1.00 [facility] Comment on above: For patients on eltr ombopag therapy, use of Dimension [place] TBIL is not recommended. Cholesterol [Mass/Vol] 96 mg/dL <200 [facility] Comment on above: <200 mg/dL Desirable 200-240 mg/dL Borderline >240 mg/dL High Risk Protein [Mass/Vol] 6.1 g/dL 6.4-8.2 [facility] Triglyceride [Mass/Vol] 127 mg/dL <199 [facility] Comment on above: The drugs N-Acetylcy steine and Metamizole may falsely depress this assay.Serum Triglycerides Reference Interval Normal <150 mg/dL Borderline high 150 - 199 mg/dL High 200 - 499 mg/dL Very High > or = 500 mg/dL Direct bilirubinOrdered By: Ginger Grace on 02-02-2023 Bilirubin.direct [Mass/Vol] 0.19 mg/dL 0.00-0.30 [facility] Laboratory - Chemistry and C hemistry - challengeOrdered By: Ginger Grace on 02-02-2023 ALP [Catalytic activity/Vol] 105 U/L 45-117 [facility] ALT [Catalytic activity/Vol] 18 U/L 13-56 [facility] Globulin (S) [Mass/Vol] 3.4 g/dL 2.2-4.2 [facility] Serum or plasma albumin aaron urement (mass/volume)Ordered By: Ginger Grace on 02-02-2023 Albumin [Mass/Vol] 2.7 g/dL 3.2-5.0 [facility] Serum or plasma cholesterol in HDL measurement (mass/volume)Ordered By: Ginger Grace on 02-02-2023 Cholesterol in HDL [Mass/Vol] 39 mg/dL >40 [facility] Comment on above: The drugs N-Acetylcy steine and Metamizole may falsely depress this assay. Reference Range HDL <40 mg/dL Low HDL Cholesterol HDL >or= 60 mg/dL High HDL Cholesterol Serum or plasma cholesterol in VLDL measurement (mass/volume)Ordered By: Ginger Grace on 02-02-2023 Cholesterol in VLDL [Mass/Vol] 25 mg/dL 5-40 [facility] Serum or plasma low density lipoprotein (LDL) cholesterol measurement (mass/volume)Ordered By: Ginger Grace on 02-02-2023 Cholesterol in LDL [Mass/Vol] 32 mg/dL 0-130 [facility] Thin prep Papanicolaou smear with manual screeningOrdered By: Ginger Grace on 02-02-2023 Thin prep Papanicolaou smear with manual screening 14 U/L 15-37 [facility] Basophil percentageon 2021 Chloride [Moles/Vol] 106 mmol/L 98-107 [facility] Work Phone: Glucose [Mass/Vol] 102 mg/dL 74-106 [facility] Work Phone: Comment on above: Fasting Glucose resu lt from 100 to 125 mg/dL suggests IMPAIRED HOMEOSTASIS per A.D.A. criteria. Potassium [Moles/Vol] 4.0 mmol/L 3.5-5.1 [facility] Work Phone: Sodium [Moles/Vol] 141 mmol/L 136-145 [facility] Work Phone: Laboratory - Chemistry and C hemistry - challengeon 01-07-2022 CO2 [Moles/Vol] 28.0 mmol/L 21.0-32.0 [facility] Work Phone: Urea nitrogen/Creatinine [Mass ratio] 27.5 mg/mg 10-20 [facility] Work Phone: No Panel Informationon 01-07 Estimated GFR (MDRD) Amer 129 mL/min >60 [facility] Work Phone: Comment on above: GFR Calc Estimated GFR (MDRD) Non-Af Amer 107 mL/min >60 [facility] Work Phone: Comment on above: Non- GFR Calc Serum or plasma calcium aaron urement (mass/volume)on 01-07-2022 Calcium [Mass/Vol] 9.4 mg/dL 8.5-10.1 [facility] Work Phone: [phone] Serum or plasma creatinine m easurement (mass/volume)on 01-07-2022 Creatinine [Mass/Vol] 0.58 mg/dL 0.55-1.02 [facility] Work Phone: Comment on above: The validity of the calculated GFR & GFRAA in patients over 70 years has not been determined. Clinical correlation is essential. Serum or plasma urea nitroge n measurement (mass/volume)on 01-07-2022 Urea nitrogen [Mass/Vol] 16 mg/dL 7-18 [facility] Work Phone: Thin prep Papanicolaou smear with manual screeningon 01-07-2022 Thin prep Papanicolaou smear with manual screening 7 5-15 [facility] Work Phone: Basophil percentageon 2021 Bilirubin [Mass/Vol] 0.90 mg/dL 0.20-1.00 [facility] Work Phone: Comment on above: For patients on eltr ombopag therapy, use of Dimension [place] TBIL is not recommended. Chloride [Moles/Vol] 107 mmol/L 98-107 [facility] Work Phone: Cholesterol [Mass/Vol] 113 mg/dL <200 [facility] Work Phone: Comment on above: <200 mg/dL Desirable 200-240 mg/dL Borderline >240 mg/dL High Risk Glucose [Mass/Vol] 109 mg/dL 74-106 [facility] Work Phone: Comment on above: Fasting Glucose resu lt from 100 to 125 mg/dL suggests IMPAIRED HOMEOSTASIS per A.D.A. criteria. Potassium [Moles/Vol] 4.0 mmol/L 3.5-5.1 [facility] Work Phone: [phone] Protein [Mass/Vol] 6.6 g/dL 6.4-8.2 [facility] Work Phone: [phone] Sodium [Moles/Vol] 139 mmol/L 136-145 [facility] Work Phone: [phone] Triglyceride [Mass/Vol] 116 mg/dL <199 [facility] Work Phone: [phone] Comment on above: The drugs N-Acetylcy steine and Metamizole may falsely depress this assay.Serum Triglycerides Reference Interval Normal <150 mg/dL Borderline high 150 - 199 mg/dL High 200 - 499 mg/dL Very High > or = 500 mg/dL Direct bilirubinon 2 Bilirubin.direct [Mass/Vol] 0.27 mg/dL 0.00-0.30 [facility] Work Phone: [phone] Laboratory - Chemistry and C hemistry - challengeon 12-25-2021 ALP [Catalytic activity/Vol] 132 U/L 45-117 [facility] Work Phone: [phone] ALT [Catalytic activity/Vol] 15 U/L 13-56 [facility] Work Phone: [phone] CO2 [Moles/Vol] 30.0 mmol/L 21.0-32.0 [facility] Work Phone: [phone] Globulin (S) [Mass/Vol] 3.6 g/dL 2.2-4.2 [facility] Work Phone: [phone] Natriuretic peptide B (Bld) [Mass/Vol] 243.4 pg/mL 0-100 [facility] Work Phone: [phone] Urea nitrogen/Creatinine [Mass ratio] 22.1 mg/mg 10-20 [facility] Work Phone: [phone] No Panel Informationon 12-25 Estimated GFR (MDRD) Amer 139 mL/min >60 [facility] Work Phone: Comment on above: GFR Calc Estimated GFR (MDRD) Non-Af Amer 115 mL/min >60 [facility] Work Phone: Comment on above: Non- GFR Calc Serum or plasma albumin aaron urement (mass/volume)on 12-25-2021 Albumin [Mass/Vol] 3.0 g/dL 3.2-5.0 [facility] Work Phone: Serum or plasma calcium aaron urement (mass/volume)on 12-25-2021 Calcium [Mass/Vol] 10.0 mg/dL 8.5-10.1 [facility] Work Phone: Serum or plasma cholesterol in HDL measurement (mass/volume)on 12-25-2021 Cholesterol in HDL [Mass/Vol] 46 mg/dL >40 [facility] Work Phone: Comment on above: The drugs N-Acetylcy steine and Metamizole may falsely depress this assay. Reference Range HDL <40 mg/dL Low HDL Cholesterol HDL >or= 60 mg/dL High HDL Cholesterol Serum or plasma cholesterol in VLDL measurement (mass/volume)on 12-25-2021 Cholesterol in VLDL [Mass/Vol] 23 mg/dL 5-40 [facility] Work Phone: [phone] Serum or plasma creatinine m easurement (mass/volume)on 12-25-2021 Creatinine [Mass/Vol] 0.54 mg/dL 0.55-1.02 [facility] Work Phone: Comment on above: The validity of the calculated GFR & GFRAA in patients over 70 years has not been determined. Clinical correlation is essential. Serum or plasma low density lipoprotein (LDL) cholesterol measurement (mass/volume)on 12-25-2021 Cholesterol in LDL [Mass/Vol] 44 mg/dL 0-130 [facility] Work Phone: Serum or plasma urea nitroge n measurement (mass/volume)on 12-25-2021 Urea nitrogen [Mass/Vol] 12 mg/dL 7-18 [facility] Work Phone: [phone] Thin prep Papanicolaou smear with manual screeningon 12-25-2021 Thin prep Papanicolaou smear with manual screening 12 U/L 15-37 [facility] Work Phone: Thin prep Papanicolaou smear with manual screening 2 5-15 [facility] Work Phone: Absolute lymphocyte counton 10-12-2021 Lymphocytes Auto (Unsp spec) [#/Vol] 0.84 10*3/uL 0.83-4.51 [facility] Work Phone: Basophil percentageon 2021 Basophils/100 WBC (Bld) 0.1 % 0-1 [facility] Work Phone: Chloride [Moles/Vol] 107 mmol/L 98-107 [facility] Work Phone: Eosinophils/100 WBC (Bld) 1.2 % 0-5 [facility] Work Phone: Glucose [Mass/Vol] 110 mg/dL 74-106 [facility] Work Phone: Comment on above: Fasting Glucose resu lt from 100 to 125 mg/dL suggests IMPAIRED HOMEOSTASIS per A.D.A. criteria. Neutrophils (Bld) [#/Vol] 5.2 10*3/uL 2.0-7.7 [facility] Work Phone: Neutrophils/100 WBC (Bld) 77.9 % 47-70 [facility] Work Phone: Potassium [Moles/Vol] 4.5 mmol/L 3.5-5.1 [facility] Work Phone: Comment on above: Slight Hemolysis, Re sult may be falsely increased. Sodium [Moles/Vol] 140 mmol/L 136-145 [facility] Work Phone: WBC (Bld) [#/Vol] 6.7 10*3/uL 4.4-11.0 [facility] Work Phone: Blood erythrocytes count (nu mber/volume)on 10-12-2021 RBC (Bld) [#/Vol] 4.54 10*6/uL 4.2-5.4 [facility] Work Phone: Blood hemoglobin measurement (mass/volume)on 10-12-2021 Hemoglobin (Bld) [Mass/Vol] 13.5 g/dL 12.0-15.0 [facility] Work Phone: Blood lymphocytes/100 leukoc yteson 10-12-2021 Lymphocytes/100 WBC (Bld) 12.5 % 19-41 [facility] Work Phone: [phone] Blood monocytes/100 leukocyt eson 10-12-2021 Monocytes/100 WBC (Bld) 7.9 % 0-10 [facility] Work Phone: Blood platelet mean volumeon 10-12-2021 Platelet mean volume (Bld) [Entitic vol] 9.5 fL 6.2-12.0 [facility] Work Phone: Determination of erythrocyte mean corpuscular volume (MCV)on 10-12-2021 MCV (RBC) [Entitic vol] 92.7 fL 81-99 [facility] Work Phone: Hematocrit Auto (Bld) [Volum e fraction]on 10-12-2021 Hematocrit (Bld) [Volume fraction] 42.1 % 37-47 [facility] Work Phone: Laboratory - Chemistry and C hemistry - challengeon 10-12-2021 CO2 [Moles/Vol] 33.0 mmol/L 21.0-32.0 [facility] Work Phone: Urea nitrogen/Creatinine [Mass ratio] 26.6 mg/mg 10-20 [facility] Work Phone: Laboratory - Hematology and Cell countson 10-12-2021 Erythrocyte distribution width (RBC) [Entitic vol] 42.5 fL 35.1-43.9 [facility] Work Phone: Erythrocyte distribution width (RBC) [Ratio] 12.6 % 11.6-14.6 [facility] Work Phone: Immature granulocytes/100 WBC (Bld) 0.400 % 0.0-0.9 [facility] Work Phone: Comment on above: IG% - Immature Granu locytes (promyelocytes, myelocytes and metamyelocytes) > 1% indicates that a LEFT SHIFT is Present. MCH (RBC) [Entitic mass] 29.7 pg 27.0-32.0 [facility] Work Phone: Nucleated RBC/100 WBC (Bld) [Ratio] 0 % 0-5 [facility] Work Phone: [phone] MCHC Auto (RBC) [Mass/Vol]on 10-12-2021 MCHC (RBC) [Mass/Vol] 32.1 g/dL 32-36 [facility] Work Phone: No Panel Informationon 10-12 Troponin I High Sensitivity 13 pg/mL 3.0-54.0 [facility] Work Phone: Comment on above: Please Note: New Vanessa t Units and Gender Specific Reference Ranges. For more information see Policy Stat Procedure [place] High Sensitivity Troponin (TNIH) and attachments. Estimated Creatinine Clearance Calc 73.85 ml/min [facility] Work Phone: [phone] Estimated GFR (MDRD) Amer 134 mL/min >60 [facility] Work Phone: [phone] Comment on above: GFR Calc Estimated GFR (MDRD) Non-Af Amer 111 mL/min >60 [facility] Work Phone: Comment on above: Non- GFR Calc Platelets bldon 10-12-2021 Platelets (Bld) [#/Vol] 209 10*3/uL 150-450 [facility] Work Phone: [phone] Serum or plasma calcium aaron urement (mass/volume)on 10-12-2021 Calcium [Mass/Vol] 10.1 mg/dL 8.5-10.1 [facility] Work Phone: [phone] Serum or plasma creatinine m easurement (mass/volume)on 10-12-2021 Creatinine [Mass/Vol] 0.56 mg/dL 0.55-1.02 [facility] Work Phone: [phone] Comment on above: The validity of the calculated GFR & GFRAA in patients over 70 years has not been determined. Clinical correlation is essential. Serum or plasma urea nitroge n measurement (mass/volume)on 10-12-2021 Urea nitrogen [Mass/Vol] 15 mg/dL 7-18 [facility] Work Phone: [phone] Thin prep Papanicolaou smear with manual screeningon 10-12-2021 Thin prep Papanicolaou smear with manual screening 0 5-15 [facility] Work Phone: [phone] Basophil percentageon 2021 Bilirubin [Mass/Vol] 0.60 mg/dL 0.20-1.00 [facility] Work Phone: [phone] Comment on above: For patients on eltr ombopag therapy, use of Dimension [place] TBIL is not recommended. Cholesterol [Mass/Vol] 109 mg/dL <200 [facility] Work Phone: [phone] Comment on above: <200 mg/dL Desirable 200-240 mg/dL Borderline >240 mg/dL High Risk Protein [Mass/Vol] 6.3 g/dL 6.4-8.2 [facility] Work Phone: [phone] Triglyceride [Mass/Vol] 139 mg/dL [facility] Work Phone: [phone] Comment on above: The drugs N-Acetylcy steine and Metamizole may falsely depress this assay.Serum Triglycerides Reference Interval Normal <150 mg/dL Borderline high 150 - 199 mg/dL High 200 - 499 mg/dL Very High > or = 500 mg/dL Direct bilirubinon Bilirubin.direct [Mass/Vol] 0.19 mg/dL 0.00-0.30 [facility] Work Phone: [phone] Laboratory - Chemistry and C hemistry - challengeon 05-30-2021 ALP [Catalytic activity/Vol] 101 U/L 45-117 [facility] Work Phone: [phone] ALT [Catalytic activity/Vol] 20 U/L 13-56 [facility] Work Phone: [phone] Globulin (S) [Mass/Vol] 3.2 g/dL 2.2-4.2 [facility] Work Phone: Serum or plasma albumin aaron urement (mass/volume)on 05-30-2021 Albumin [Mass/Vol] 3.1 g/dL 3.2-5.0 [facility] Work Phone: Serum or plasma cholesterol in HDL measurement (mass/volume)on 05-30-2021 Cholesterol in HDL [Mass/Vol] 41 mg/dL [facility] Work Phone: Comment on above: The drugs N-Acetylcy steine and Metamizole may falsely depress this assay. Reference Range HDL <40 mg/dL Low HDL Cholesterol HDL >or= 60 mg/dL High HDL Cholesterol Serum or plasma cholesterol in VLDL measurement (mass/volume)on 05-30-2021 Cholesterol in VLDL [Mass/Vol] 28 mg/dL 5-40 [facility] Work Phone: Serum or plasma low density lipoprotein (LDL) cholesterol measurement (mass/volume)on 05-30-2021 Cholesterol in LDL [Mass/Vol] 40 mg/dL 0-130 [facility] Work Phone: Thin prep Papanicolaou smear with manual screeningon 05-30-2021 Thin prep Papanicolaou smear with manual screening 13 U/L 15-37 [facility] Work Phone: Lab Report: Basic Metabolic Profile (BMP)on 10-28-2016 Anion gap 4 mmol/L Low 5-15 [facility] Work Phone: [phone] Anion gap molar conc 4 mmol/L Low 5-15 [facility] Work Phone: [phone] BUN/Creatinine Ratio 17.8 RATIO Invalid Interpretation Code 10-20 [facility] Work Phone: [phone] Calcium 9.8 mg/dL Invalid Interpretation Code 8.5-10.1 [facility] Work Phone: [phone] Chloride 107 mmol/L Invalid Interpretation Code 98-107 [facility] Work Phone: [phone] CO2 31.0 mmol/L Invalid Interpretation Code 21.0-32.0 [facility] Work Phone: [phone] CO2 ppres (BldV) 31.0 mmol/L 21.0-32.0 [facility] [employer] Work Phone: [phone] Creatinine 0.62 mg/dL Invalid Interpretation Code 0.55-1.02 [facility] Work Phone: [phone] eGFR (non-black) 122 mL/min/{1.73_m2} Invalid Interpretation Code >60 [facility] Work Phone: [phone] eGFR (non-black) 101 mL/min/{1.73_m2} Invalid Interpretation Code >60 [facility] Work Phone: [phone] EST GFR - AA 122 mL/min >60 [facility] Work Phone: [phone] Glucose 98 mg/dL Invalid Interpretation Code 70-110 [facility] Work Phone: [phone] Glucose mass conc 98 mg/dL 70-110 [facility] Work Phone: [phone] Potassium 4.4 mmol/L Invalid Interpretation Code 3.5-5.1 [facility] Work Phone: [phone] Sodium 142 mmol/L Invalid Interpretation Code 136-145 [facility] Work Phone: [phone] Urea nitrogen 11 mg/dL Invalid Interpretation Code 7-18 [facility] Work Phone: [phone] Office Visit: [facility] 08-27-19 17 Fall risk assessment No Invalid Interpretation Code [facility] Phone: [phone] Office Visiton 11-27-2015 Documentation of current medications (procedure) Done Invalid Interpretation Code [facility] Work Phone: [phone] Protein mass conc Done [facility] Work Phone: [phone] Clinical Lists Update: 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 11-23-2015 Left ventricular Ejection fraction 55 % Invalid Interpretation Code [facility] Work Phone: [phone] Clinical Lists Update: [facility] 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 10-26-2015 Alanine aminotransferase (ALT) 17 U/L Invalid Interpretation Code [facility] Work Phone: [phone] Albumin 2.8 g/dL Low [facility] Work Phone: [phone] Alkaline phosphatase (ALP) 121 U/L Invalid Interpretation Code [facility] Work Phone: [phone] ALP enzyme act/vol (Bld) 121 U/L [facility] Work Phone: [phone] Anion gap 6 mmol/L Invalid Interpretation Code [facility] Work Phone: [phone] Anion gap molar conc 6 mmol/L [facility] Work Phone: [phone] Aspartate aminotransferase (AST) 13 U/L Low [facility] Work Phone: [phone] Bilirubin (total) 0.60 mg/dL Invalid Interpretation Code [facility] Work Phone: [phone] BUN/Creatinine Ratio 18.2 mg/mg Invalid Interpretation Code [facility] Work Phone: [phone] Calcium 9.1 mg/dL Invalid Interpretation Code [facility] Work Phone: [phone] Chloride 105 mmol/L Invalid Interpretation Code [facility] Work Phone: [phone] Cholesterol 91 mg/dL Invalid Interpretation Code [facility] Work Phone: [phone] CO2 27.0 mmol/L Invalid Interpretation Code [facility] Work Phone: [phone] CO2 ppres (BldV) 27.0 mmol/L [facility] Work Phone: [phone] Creatinine 0.55 mg/dL Invalid Interpretation Code [facility] Work Phone: [phone] Globulin 3.3 g/dL Invalid Interpretation Code [facility] Work Phone: [phone] Globulin mass conc (S) 3.3 g/dL [facility] Work Phone: [phone] Glucose 102 mg/dL Invalid Interpretation Code [facility] Work Phone: [phone] Glucose mass conc 102 mg/dL [facility] Work Phone: [phone] HDL Cholesterol 36 mg/dL Low [facility] Work Phone: [phone] LDL Cholesterol 32 mg/dL Invalid Interpretation Code [facility] Work Phone: [phone] Potassium 3.8 mmol/L Invalid Interpretation Code [facility] Work Phone: [phone] Protein 6.1 g/dL Low [facility] Work Phone: [phone] Sodium 138 mmol/L Invalid Interpretation Code [facility] Work Phone: [phone] Triglyceride 116 mg/dL Invalid Interpretation Code [facility] Work Phone: [phone] Urea nitrogen 10 mg/dL Invalid Interpretation Code [facility] Work Phone: [phone] very low density lipoproteins 23 mg/dL Invalid Interpretation Code [facility] Work Phone: [phone] Clinical Lists Update: [facility] 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 10-25-2015 Erythrocyte distribution width Ratio (RBC) 14.3 % [facility] Work Phone: [phone] Erythrocytes (RBC) 4.74 10*6/uL Invalid Interpretation Code [facility] Work Phone: [phone] Hematocrit (HCT) 40.1 % Invalid Interpretation Code [facility] Work Phone: [phone] Hematocrit Volume Fraction (Bld) 40.1 % [facility] Work Phone: [phone] Hemoglobin (HGB) 12.5 g/dL Invalid Interpretation Code [facility] Work Phone: [phone] MCH 26.4 pg Low [facility] Work Phone: [phone] Entitic mass (RBC) 26.4 pg Low [facility] Work Phone: [phone] MCHC 31.2 g/dL Low [facility] Work Phone: [phone] MCHC mass conc (RBC) 31.2 g/dL Low [facility] Work Phone: [phone] MCV 84.6 fL Invalid Interpretation Code [facility] Work Phone: [phone] MCV Entitic volume (RBC) 84.6 fL [facility] Work Phone: [phone] Platelet mean volume Entitic volume (Bld) 9.3 fL [facility] Work Phone: [phone] Platelets 212 10*3/mm3 Invalid Interpretation Code [facility] Work Phone: [phone] Platelets #/vol (Bld) 212 10*3/mm3 [facility] Work Phone: [phone] PMV by Gabe 9.3 fL Invalid Interpretation Code [facility] Work Phone: [phone] RBC #/vol (Bld) 4.74 10*6/uL [facility] Work Phone: [phone] RDW-CA 14.3 % Invalid Interpretation Code [facility] Work Phone: [phone] WBC #/vol (Bld) 6.4 10*3/uL [facility] Work Phone: [phone] WBC (Leukocytes) 6.4 10*3/uL Invalid Interpretation Code [facility] Work Phone: [phone] Lab Report: Liver Profileon 06-25-2015 Bilirubin (direct) 0.12 mg/dL Invalid Interpretation Code 0.00-0.30 [facility] Work Phone: [phone] Globulin 3.9 g/dL High 2.3-3.5 [facility] Work Phone: [phone] Globulin mass conc (S) 3.9 g/dL High 2.3-3.5 [facility] Work Phone: [phone] Office Visit: [facility] 03-28-19 16 Tobacco smoking status NHIS Never smoker [facility] Work Phone: [phone] Tobacco use CPHS Never smoker Invalid Interpretation Code [facility] Work Phone: [phone] Office Visit: [facility] 03-01-20 14 cardiac risk group C Invalid Interpretation Code [facility] Work Phone: [phone] General cardiovascular disease 10Y risk [#] [place]D'Agostino N/A Invalid Interpretation Code [facility] Work Phone: [phone] Tobacco smoking status NHIS Never Invalid Interpretation Code [facility] Work Phone: [phone] Replaced Document: [place] Observationson 03-01-2014 EKG QRS axis -32 deg [facility] Work Phone: [phone] electrocardiogram interpretation Sinus Rhythm -RSR(V1) -nondiagnostic. PROBABLY NORMAL Invalid Interpretation Code [facility] Work Phone: [phone] GE use only - for [employer] import when terms are not otherwise specified 406 ms Invalid Interpretation Code [facility] Work Phone: Interpretation Sinus Rhythm -RSR(V1) -nondiagnostic. PROBABLY NORMAL [facility] Work Phone: P [place] 60 deg [facility] Work Phone: P wave axis, electrocardiogram 60 deg Invalid Interpretation Code [facility] Work Phone: [place] Interval 132 ms [facility] Work Phone: [phone] [place] interval, electrocardiogram 132 ms Invalid Interpretation Code [facility] Work Phone: [phone] Pulse (Heart Rate) 73 /min Invalid Interpretation Code [facility] Work Phone: [phone] QRS axis, electrocardiogram -32 deg Invalid Interpretation Code [facility] Work Phone: [phone] QRS Duration 102 ms [facility] Work Phone: [phone] QRS duration, electrocardiogram 102 ms Invalid Interpretation Code [facility] Work Phone: [phone] QT Interval new path ms [facility] Work Phone: [phone] QT interval, electrocardiogram new path ms Invalid Interpretation Code [facility] Work Phone: QTc Lee 406 ms [facility] Work Phone: [phone] T [place] 10 deg [facility] Work Phone: [phone] T wave axis, electrocardiogram 10 deg Invalid Interpretation Code [facility] Work Phone: [phone] Lab Report: TROPon 2 Troponin I ng/mL Normal <0.06 [facility] Work Phone: [phone] Vital Signs Date Time Vital Sign Value Performing Clinician Rosei han 09-09-2024 23:08-0400 Body temperature 98.2 [degF] Dr. Lilly Fletcher MD Work Phone: [facility] 09-09-2024 23:08-0400 Diastolic blood pressure 80 mm[Hg] Dr. Lilly Fletcher MD Work Phone: [facility] 09-09-2024 23:08-0400 Heart rate 59 /min Dr. Lilly Fletcher MD Work Phone: [facility] 09-09-2024 23:08-0400 Respiratory rate 18 /min Dr. Lilly Fletcher MD Work Phone: [facility] 09-09-2024 23:08-0400 SaO2% (BldA) [Mass fraction] 94 % Dr. Lilly Fletcher MD Work Phone: [phone])843-791792 [place] [address] 09-09-2024 23:08-0400 Systolic blood pressure 163 mm[Hg] Dr. Lilly Fletcher MD Work Phone: [facility] 09-09-2024 20:06-0400 Body height 149.[address] Lilly Fletcher MD Work Phone: 6([phone])374-049192 [place] [address] 09-09-2024 20:06-0400 Body mass index (BMI) [Ratio] 43.7 kg/m2 Dr. Lilly Fletcher MD Work Phone: [phone])283-710492 [place] [address] 09-09-2024 20:06-0400 Body weight 98.[address] Lilly Fletcher MD Work Phone: [phone])004-348592 [place] [address] 09-05-2024 16:01-0400 Body height 149.[address] Lilly Fletcher MD Work Phone: 7(540)954-035792 [place] [address] 09-05-2024 16:01-0400 Body mass index (BMI) [Ratio] 42 kg/m2 Dr. Lilly Fletcher MD Work Phone: 1(528)309-006392 [place] [address] 09-05-2024 16:01-0400 Body weight 94.[address] Lilly Fletcher MD Work Phone: [facility] 09-05-2024 16:01-0400 Diastolic blood pressure 82 mm[Hg] Dr. Lilly Fletcher MD Work Phone: 8(645)100-524792 [place] [address] 09-05-2024 16:01-0400 Heart rate 66 /min Dr. Lilly Fletcher MD Work Phone: 7(722)031-393492 [place] [address] 09-05-2024 16:01-0400 Respiratory rate 18 /min Dr. Lilly Fletcher MD Work Phone: [facility] 09-05-2024 16:01-0400 Systolic blood pressure 142 mm[Hg] Dr. Lilly Fletcher MD Work Phone: 5(165)728-771301 [place] [address] 08-15-2024 15:31-0400 Body height 149.[address] Lilly Fletcher MD Work Phone: [phone])176-430401 [place] [address] 08-15-2024 15:31-0400 Body mass index (BMI) [Ratio] 41.3 kg/m2 Dr. Lilly Fletcher MD Work Phone: [phone])177-403801 [place] [address] 08-15-2024 15:31-0400 Body weight 92.[address] Lilly Fletcher MD Work Phone: [phone])366-844401 [place] [address] 08-15-2024 15:31-0400 Diastolic blood pressure 66 mm[Hg] Dr. Lilly Fletcher MD Work Phone: 3(752)697-217701 [place] [address] 08-15-2024 15:31-0400 Heart rate 74 /min Dr. Lilly Fletcher MD Work Phone: 7(831)294-312201 [place] [address] 08-15-2024 15:31-0400 Respiratory rate 20 /min Dr. Lilly Fletcher MD Work Phone: 0(376)[phone] [place] [address] 08-15-2024 15:31-0400 Systolic blood pressure 142 mm[Hg] Dr. Lilly Fletcher MD Work Phone: 2(203)921-920401 [place] [address] 08-02-2024 06:53-0400 Body temperature 97.8 [degF] Dr. Lilly Fletcher MD Work Phone: [phone])207-150306 [address] 08-02-2024 06:53-0400 Diastolic blood pressure 62 mm[Hg] Dr. Lilly Fletcher MD Work Phone: 0(864)388-011601 [place] [address] 08-02-2024 06:53-0400 Heart rate 67 /min Dr. Lilly Fletcher MD Work Phone: 2(411)117-869901 [place] [address] 08-02-2024 06:53-0400 Respiratory rate 18 /min Dr. Lilly Fletcher MD Work Phone: [facility] 08-02-2024 06:53-0400 SaO2% (BldA) [Mass fraction] 95 % Dr. Lilly Fletcher MD Work Phone: [facility] 08-02-2024 06:53-0400 Systolic blood pressure 140 mm[Hg] Dr. Lilly Fletcher MD Work Phone: [facility] 08-02-2024 03:44-0400 Body height 149.[address] Lilly Fletcher MD Work Phone: [facility] 08-02-2024 03:44-0400 Body mass index (BMI) [Ratio] 42.5 kg/m2 Dr. Lilly Fletcher MD Work Phone: [facility] 08-02-2024 03:44-0400 Body weight 95.[address] Lilly Fletcher MD Work Phone: [facility] 06-18-2024 21:58-0400 Body temperature 98.1 [degF] Dr. Lilly Fletcher MD Work Phone: [facility] 06-18-2024 21:58-0400 Diastolic blood pressure 60 mm[Hg] Dr. Lilly Fletcher MD Work Phone: [facility] 06-18-2024 21:58-0400 Heart rate 91 /min Dr. Lilly Fletcher MD Work Phone: [facility] 06-18-2024 21:58-0400 Respiratory rate 16 /min Dr. Lilly Fletcher MD Work Phone: [facility] 06-18-2024 21:58-0400 SaO2% (BldA) [Mass fraction] 97 % Dr. Lilly Fletcher MD Work Phone: [facility] 06-18-2024 21:58-0400 Systolic blood pressure 116 mm[Hg] Dr. Lilly Fletcher MD Work Phone: [facility] 06-18-2024 20:34-0400 Body height 149.[address] Lilly Fletcher MD Work Phone: [facility] 06-18-2024 20:34-0400 Body mass index (BMI) [Ratio] 43.2 kg/m2 Dr. Lilly Fletcher MD Work Phone: [facility] 06-18-2024 20:34-0400 Body weight 97.[address] Lilly Fletcher MD Work Phone: [facility] 03-25-2023 16:24-0500 Body height 149.[address] Lilly Fletcher Work Phone: [phone] [place] [address] 03-25-2023 16:24-0500 Body mass index (BMI) [Ratio] 43 kg/m2 Dr. Lilly Fletcher Work Phone: 2([phone] [place] [address] 03-25-2023 16:24-0500 Body temperature 97.8 [degF] Dr. Lilly Fletcher Work Phone: 5(782)[phone] [place] [address] 03-25-2023 16:24-0500 Body weight 96.[address] Lilly Fletcher Work Phone: 8([phone] [place] [address] 03-25-2023 16:24-0500 Diastolic blood pressure 90 mm[Hg] Dr. Lilly Fletcher Work Phone: [facility] 03-25-2023 16:24-0500 Heart rate 82 /min Dr. Lilly Fletcher Work Phone: [facility] 03-25-2023 16:24-0500 Respiratory rate 20 /min Dr. Lilly Fletcher Work Phone: [facility] 03-25-2023 16:24-0500 SaO2% (BldA) [Mass fraction] 95 % Dr. Lilly Fletcher Work Phone: [facility] 03-25-2023 16:24-0500 Systolic blood pressure 152 mm[Hg] Dr. Lilly Fletcher Work Phone: 5([phone] [place] [address] 02-02-2023 10:11-0500 Body height 149.[address] Lilly Fletcher Work Phone: [facility] 02-02-2023 10:11-0500 Body mass index (BMI) [Ratio] 43.8 kg/m2 Dr. Lilly Fletcher Work Phone: [facility] 02-02-2023 10:11-0500 Body weight 98.[address] Lilly Fletcher Work Phone: [facility] 02-02-2023 10:11-0500 Diastolic blood pressure 73 mm[Hg] Dr. Lilly Fletcher Work Phone: [facility] 02-02-2023 10:11-0500 Heart rate 87 /min Dr. Lilly Fletcher Work Phone: [facility] 02-02-2023 10:11-0500 Respiratory rate 18 /min Dr. Lilly Fletcher Work Phone: [facility] 02-02-2023 10:11-0500 SaO2% (BldA) [Mass fraction] 94 % Dr. Lilly Fletcher Work Phone: [facility] 02-02-2023 10:11-0500 Systolic blood pressure 137 mm[Hg] Dr. Lilly Fletcher Work Phone: [facility] 10-31-2021 10:51-0400 Body height 147.[address] Lilly Fletcher Work Phone: [facility] Work Phone: 10-31-2021 10:51-0400 Body mass index (BMI) [Ratio] 44.5 kg/m2 Dr. Lilly Fletcher Work Phone: [facility] Work Phone: 10-31-2021 10:51-0400 Body weight 96.[address] Lilly Fletcher Work Phone: [facility] Work Phone: 10-31-2021 10:51-0400 Diastolic blood pressure 90 mm[Hg] Dr. Lilly Fletcher Work Phone: [facility] Work Phone: 10-31-2021 10:51-0400 Heart rate 67 /min Dr. Lilly Fletcher Work Phone: [facility] Work Phone: 10-31-2021 10:51-0400 Respiratory rate 20 /min Dr. Lilly Fletcher Work Phone: [facility] Work Phone: 10-31-2021 10:51-0400 SaO2% (BldA) [Mass fraction] 94 % Dr. Lilly Fletcher Work Phone: [facility] Work Phone: 10-31-2021 10:51-0400 Systolic blood pressure 157 mm[Hg] Dr. Lilly Fletcher Work Phone: [facility] Work Phone: 10-12-2021 18:12-0400 Diastolic blood pressure 98 mm[Hg] [facility] Work Phone: 10-12-2021 18:12-0400 Heart rate 66 /min [facility] Work Phone: 10-12-2021 18:12-0400 Respiratory rate 17 /min [facility] Work Phone: 10-12-2021 18:12-0400 SaO2% (BldA) [Mass fraction] 97 % [facility] Work Phone: 10-12-2021 18:12-0400 Systolic blood pressure 169 mm[Hg] [facility] Work Phone: 10-12-2021 13:21-0400 Body height 147.32 cm [facility] Work Phone: 10-12-2021 13:21-0400 Body mass index (BMI) [Ratio] 45.7 kg/m2 [facility] Work Phone: 10-12-2021 13:21-0400 Body temperature 98.1 [degF] [facility] Work Phone: 10-12-2021 13:21-0400 Body weight 99.3 kg [facility] Work Phone: 04-18-2021 07:35-0500 Body height 152.[address] Lilly Fletcher Work Phone: [facility] Work Phone: 04-18-2021 07:35-0500 Body mass index (BMI) [Ratio] 40.8 kg/m2 Dr. Lilly Fletcher Work Phone: [facility] Work Phone: 04-18-2021 07:35-0500 Body weight 95.[address] Lilly Fletcher Work Phone: [facility] Work Phone: 04-18-2021 07:35-0500 Diastolic blood pressure 84 mm[Hg] Dr. Lilly Fletcher Work Phone: [facility] Work Phone: 04-18-2021 07:35-0500 Heart rate 82 /min Dr. Lilly Fletcher Work Phone: [facility] Work Phone: 04-18-2021 07:35-0500 Respiratory rate 18 /min Dr. Lilly Fletcher Work Phone: [facility] Work Phone: 04-18-2021 07:35-0500 SaO2% (BldA) [Mass fraction] 95 % Dr. Lilly Fletcher Work Phone: [facility] Work Phone: 04-18-2021 07:35-0500 Systolic blood pressure 132 mm[Hg] Dr. Lilly Fletcher Work Phone: [facility] Work Phone: 10-28-2016 11:34-0400 BP Diastolic 108 mm[Hg] Harumi DeFinis [facility] Work Phone: 10-28-2016 11:34-0400 BP Systolic 150 mm[Hg] Harumi DeFinis [facility] Work Phone: 10-28-2016 11:34-0400 Pulse (Heart Rate) 76 /min Harumi DeFinis [facility] Work Phone: 10-28-2016 11:34-0400 Respiratory Rate 20 /min Harumi DeFinis [facility] Work Phone: 09-24-2016 11:42-0400 BP Diastolic 90 mm[Hg] Harumi DeFinis [facility] Work Phone: 09-24-2016 11:42-0400 BP Systolic 148 mm[Hg] Harumi DeFinis [facility] Work Phone: 09-24-2016 11:42-0400 Pulse (Heart Rate) 64 /min Harumi DeFinis [facility] Work Phone: 09-24-2016 11:42-0400 Respiratory Rate 20 /min Harumi DeFinis [facility] Work Phone: 09-08-2016 11:25-0400 BP Diastolic 90 mm[Hg] Harumi DeFinis [facility] Work Phone: 09-08-2016 11:25-0400 BP Systolic 160 mm[Hg] Harumi DeFinis [facility] Work Phone: 09-08-2016 11:25-0400 Pulse (Heart Rate) 72 /min Harumi DeFinis [facility] Work Phone: 09-08-2016 11:25-0400 Respiratory Rate 20 /min Harumi DeFinis [facility] Work Phone: 08-26-2016 11:40-0400 BMI (Body Mass Index) 42.65 kg/m2 Elie Davis MD [facility] Work Phone: 08-26-2016 11:40-0400 BP Diastolic 74 mm[Hg] Elie Davis MD [facility] Work Phone: 08-26-2016 11:40-0400 BP Systolic 160 mm[Hg] Elie Davis MD [facility] Work Phone: 08-26-2016 11:40-0400 Height 152.4 cm Elie Davis MD [facility] Work Phone: 08-26-2016 11:40-0400 Pulse (Heart Rate) 72 /min Elie Davis MD [facility] Work Phone: 08-26-2016 11:40-0400 Respiratory Rate 20 /min Elie Davis MD [facility] Work Phone: 08-26-2016 11:40-0400 Weight 99.07 kg Elie Davis MD [facility] Work Phone: 11-27-2015 15:03-0400 BSA (Body Surface Area) 1.95 m2 Elie Davis MD [facility] Work Phone: 03-01-2014 09:21-0500 Heart rate 73 /min Nella Valerio [facility] Work Phone: Encounters Encounter Date Encounter Type Care Provider Facility Start: 10-26-2024 ambulatory Kale Ansari NP Facility :[facility] Start: 09-14-2024 ambulatory Lilly Fletcher Facility: [facility] Start: 09-09-2024 End: 09-09-2024 Emergency department patient visit Dr. Lilly Fletcher MD Work Phone: -Emergency Department Work Phone: Start: 09-05-2024 End: 09-05-2024 Patient encounter procedure Kale Ansari SMT OPERATOR-C [facility] Work Phone: Start: 09-05-2024 End: 09-05-[address] Lilly Fletcher MD Work Phone: [facility] Start: 08-29-2024 ambulatory Lilly Fletcher Facility: [facility] Start: 08-15-2024 End: 08-15-2024 Patient encounter procedure Kale Ansari SMT OPERATOR-C -[facility] Work Phone: Start: 08-15-2024 End: 08-15-[address] Lilly Fletcher MD Work Phone: [facility] Work Phone: Start: 08-02-2024 End: 08-02-2024 Emergency department patient visit Dr. Lilly Fletcher MD Work Phone: -Emergency Department Work Phone: Start: 06-18-2024 End: 06-18-2024 Emergency department patient visit Dr. Lilly Fletcher MD Work Phone: -Emergency Department Work Phone: Start: 10-07-2023 ambulatory Ginger Grace NP Facili ty:[facility] Start: 10-06-2023 ambulatory Elie Lazarori Facility:[facility] Start: 10-06-2023 End: 10-06-2023 ambulatory Ginger Grace NP Facility:[facility] Start: 03-25-2023 End: 03-25-[address] Lilly Fletcher Work Phone: [facility] Work Phone: Start: 03-25-2023 End: 03-25-[address] Lilly Fletcher Work Phone: [facility] Work Phone: Start: 02-02-2023 End: 02-02-[address] Lilly Fletcher Work Phone: [facility] Work Phone: Start: 02-02-2023 End: 02-02-[address] Lilly Fletcher Work Phone: [facility] Work Phone: Start: 01-07-2022 End: 01-07-[address] Lilly Fletcher Work Phone: [facility] Work Phone: Start: 01-07-2022 End: 01-07-[address] Lilly Fletcher Work Phone: [facility] Start: 12-25-2021 End: 12-25-[address] Lilly Fletcher Work Phone: [facility] Work Phone: Start: 12-25-2021 End: 12-25-[address] Lilly Fletcher Work Phone: [facility] Start: 11-20-2021 Non-patient / Non-visit Dr. Bella Fletcher Work Phone: [facility] Start: 11-20-2021 End: 11-20-[address] Lilly Fletcher Work Phone: [facility] Work Phone: Start: 11-20-2021 End: 11-20-[address] Lilly Fletcher Work Phone: [facility]Cardi[facility] Start: 11-07-2021 End: 11-07-[address] Lilly Fletcher Work Phone: [facility] Work Phone: Start: 11-07-2021 End: 11-07-[address] Lilly Fletcher Work Phone: [facility] Services/Neurology Start: 10-31-2021 End: 10-31-[address] Lilly Fletcher Work Phone: [facility] Start: 10-12-2021 End: 10-12-2021 Emergency department patient visit [facility] Start: 05-30-2021 End: 05-30-[address] Lilly Fletcher Work Phone: [facility] Start: 05-08-2021 Non-patient / Non-visit Dr. Bella Fletcher Work Phone: [facility] Start: 05-08-2021 End: 05-08-[address] Lilly Fletcher Work Phone: [facility] Start: 04-18-2021 End: 04-18-[address] Lilly Fletcher Work Phone: [facility] Procedures Date Procedure Procedure Detail Performing Clinician Start: 09-09-2024 Plain chest X-ray Dr. Preston Fletcher MD Work Phone: Start: 09-09-[address] Lilly Fletcher MD Work Phone: Start: 08-02-2024 Urnls dip stick/tabl et reagent [...] Start: 09-24-2016 End: 10-28-2016 *BMP Kale Ansari NP Work Phone: Start: 09-24-2016 End: 09-24-2016 Follow Up BP Check Elie Davis MD Start: 08-26-2016 End: 09-08-2016 *BMP Kale Kendall Coty SMT OPERATOR Work Phone: Start: 08-26-2016 End: 08-27-2016 CONSUMER LOAN MANAGER Kale Kendall oCty SMT OPERATOR Work Phone: Start: 08-26-2016 End: 08-27-2016 Follow Up Appt 6 months Kale Kendall Coty SMT OPERATOR Work Phone: Start: 08-26-2016 End: 09-08-2016 Follow Up BP Check Kale Kendall Coty SMT OPERATOR Work Phone: Start: 11-27-2015 End: 11-27-2015 Follow Up Appt 6 months Willis Lara Start: 11-27-2015 End: 11-27-2015 MMM Elie Davis MD Start: 11-22-2015 End: 11-29-2015 Lipid panel [AGGREGATE] Vivien lopez PA-C Work Phone: Start: 06-15-2015 End: 06-25-2015 *Hepatic Function Panel Vivien lopez PA-C Work Phone: Start: 06-15-2015 End: 06-25-2015 Lipid panel [AGGREGATE] Vivien lopez PA-C Work Phone: Start: 03-28-2015 End: 03-28-2015 CONSUMER LOAN MANAGER Vivien Haynes PA-C Work Phone: Start: 03-28-2015 [...] Elie Davis MD Start: 09-12-2014 End: 09-12-2014 MMWillis Davis MD Start: 05-24-2014 End: 05-29-2014 *Hepatic Function Panel Willis Lara Start: 05-24-2014 End: 05-29-2014 Lipid panel [AGGREGATE] Willis Lara Start: 03-01-2014 End: 03-01-2014 CONSUMER LOAN MANAGER Vivien Haynes PA-C Work Phone: Start: 03-01-2014 End: 03-01-2014 Electrocardiogram, complete Viiven Talley PA-C Work Phone: Start: 03-01-2014 End: [...] [AGGREGATE] Willis Lara Start: 12-07-2012 End: 12-07-2012 CONSUMER LOAN MANAGER Vivien Haynes PA-C Work Phone: Start: 12-07-2012 [...] Treatment Date Care Activity Detail Author Start: 09-09-2024 [facility] Start: 09-09-2024 [facility] Start: 08-02-2024 [facility] Start: 08-02-2024 [facility] Start: 06-18-2024 End: 06-18-2024 [facility] Start: 10-12-2021 [facility] Work Phone: Start: 02-26-2017 End: 02-26-2017 Appointment [facility]oint[facility] Work Phone: Start: 11-11-2016 End: 11-11-2016 Appointment [facility]ointment [facility] Work Phone: Start: 10-28-2016 End: 10-28-2016 Appointment Appointment [facility] Work Phone: Start: 10-28-2016 End: 10-28-2016 Follow Up BP Check Follow Up BP Check [facility] Work Phone: Start: 10-08-2016 End: 10-08-2016 Appointment [facility]oint[facility] Work Phone: Start: 09-24-2016 End: 09-24-2016 Appointment [facility]ointment [facility] Work Phone: Start: 09-24-2016 End: 10-28-2016 *BMP *BMP [facility] Work Phone: Start: 09-24-2016 End: 09-24-2016 Follow Up BP Check Follow Up BP Check [facility] Work Phone: Start: 09-22-2016 End: 09-22-2016 Appointment Appointment [facility] Work Phone: Start: 09-08-2016 End: 09-08-2016 Appointment Appointment [facility] Work Phone: Start: 09-05-2016 End: 09-05-2016 Appointment Appointment [facility] Work Phone: Start: 08-27-2016 End: 08-27-2016 Appointment [facility]ointment [facility] Work Phone: Start: 08-26-2016 End: 09-08-2016 *BMP *BMP [facility] Work Phone: Start: 08-26-2016 End: 08-27-2016 *Hepatic Function Panel *Hepatic Function Panel [facility] Work Phone: Start: 08-26-2016 End: 08-27-2016 CONSUMER LOAN MANAGER CONSUMER LOAN MANAGER [facility] Work Phone: Start: 08-26-2016 End: 08-27-2016 Follow Up Appt 6 months Follow Up Appt 6 months [facility] Work Phone: Start: 08-26-2016 End: 09-08-2016 Follow Up BP Check Follow Up BP Check [facility] Work Phone: Start: 08-26-2016 End: 08-27-2016 Lipid panel [AGGREGATE] *Lipid Profile CC PCP [facility] Work Phone: Start: 11-27-2015 End: 11-27-2015 Follow Up Appt 6 months Follow Up Appt 6 months [facility] Work Phone: Start: 11-27-2015 End: 11-27-2015 MMM MMM [facility] Work Phone: Start: 11-22-2015 End: 11-29-2015 Lipid panel [AGGREGATE] *Lipid Profile CC PCP [facility] Work Phone: Start: 06-15-2015 End: 06-25-2015 *Hepatic Function Panel *Hepatic Function Panel [facility] Work Phone: Start: 06-15-2015 End: 06-25-2015 Lipid panel [AGGREGATE] *Lipid Profile CC PCP [facility] Work Phone: Start: 03-28-2015 End: 03-28-2015 CONSUMER LOAN MANAGER CONSUMER LOAN MANAGER [facility] Work Phone: Start: 03-28-2015 End: 03-28-2015 Echocardiography Echocardiogram (complete) [facility] Work Phone: Start: 03-28-2015 End: 03-28-2015 Follow Up Appt 6 months Follow Up Appt 6 months [facility] Work Phone: Start: 11-29-2014 End: 12-14-2014 *Hepatic Function Panel *Hepatic Function Panel [facility] Work Phone: Start: 11-29-2014 End: 12-14-2014 Lipid panel [AGGREGATE] *Lipid Profile CC PCP [facility] Work Phone: Start: 09-12-2014 End: 09-12-2014 Follow Up Appt 6 months Follow Up Appt 6 months [facility] Work Phone: Start: 09-12-2014 End: 09-12-2014 MMM MMM [facility] Work Phone: Start: 05-24-2014 End: 05-29-2014 *Hepatic Function Panel *Hepatic Function Panel [facility] Work Phone: Start: 05-24-2014 End: 05-29-2014 Lipid panel [AGGREGATE] *Lipid Profile CC PCP [facility] Work Phone: Start: 03-01-2014 End: 03-01-2014 CONSUMER LOAN MANAGER CONSUMER LOAN MANAGER [facility] Work Phone: Start: 03-01-2014 End: 03-01-2014 Electrocardiogram, complete EKG (In office) [facility] Work Phone: Start: 03-01-2014 End: 03-01-2014 Follow Up Appt 6 months Follow Up Appt 6 months [facility] Work Phone: Start: 10-31-2013 End: 11-24-2013 *Hepatic Function Panel *Hepatic Function Panel [facility] Work Phone: Start: 10-31-2013 End: 11-24-2013 Lipid panel [AGGREGATE] *Lipid Profile CC PCP [facility] Work Phone: Start: 07-20-2013 End: 07-20-2013 Echocardiography Echocardiogram (complete) [facility] Work Phone: Start: 07-20-2013 End: 07-20-2013 Follow Up Appt 6 months Follow Up Appt 6 months [facility] Work Phone: Start: 07-20-2013 End: 07-20-2013 MMM MMM [facility] Work Phone: Start: 04-02-2013 End: 05-12-2013 *Hepatic Function Panel *Hepatic Function Panel [facility] Work Phone: Start: 04-02-2013 End: 05-12-2013 Lipid panel [AGGREGATE] *Lipid Profile CC PCP [facility] Work Phone: Start: 12-07-2012 End: 12-07-2012 CONSUMER LOAN MANAGER CONSUMER LOAN MANAGER [facility] Work Phone: Start: 12-07-2012 End: 12-07-2012 Follow Up Appt 6 months Follow Up Appt 6 months [facility] Work Phone: Start: 08-30-2012 End: 09-27-2012 *Hepatic Function Panel *Hepatic Function Panel [facility] Work Phone: Start: 08-30-2012 End: 09-27-2012 Lipid panel [AGGREGATE] *Lipid Profile [facility] Work Phone: Start: 06-04-2012 End: 06-04-2012 Follow Up Appt 6 months Follow Up Appt 6 months [facility] Work Phone: Start: 06-04-2012 End: 06-04-2012 MMM MMM [facility] Work Phone: Start: 03-03-2012 End: 03-24-2012 *Hepatic Function Panel *Hepatic Function Panel [facility] Work Phone: Start: 03-03-2012 End: 03-24-2012 Lipid panel [AGGREGATE] *Lipid Profile [facility] Work Phone: Start: 09-23-2011 End: 10-03-2011 *Hepatic Function Panel *Hepatic Function Panel [facility] Work Phone: Start: 09-23-2011 End: 08-03-2012 Lipid panel [AGGREGATE] *Lipid Profile [facility] Work Phone: Start: 08-13-2011 End: 08-13-2011 Follow Up Appt 6 months Follow Up Appt 6 months [facility] Work Phone: Cardiac event recording [facility] Patient Education [facility] Work Phone: Patient referral [facility] Work Phone: US Carotid arteries [facility] US Heart [facility] Work Phone: [facility] Payers Date Payer Category Payer Self-pay [id number] 2023 Medicare [id number] Medicare [id number] Private Health Insurance [id number] Unknown [id number] 2.16.8 [id number] Unknown [id number] 2.16.8 [id number] Unknown [id number] 2.16.8 [id number] Unknown [id number] 2.16.8 [id number] Unknown [id number] 2.16.8 [id number] Unknown [id number] 2.16.8 [id number] Unknown [id number] 2.16.8 [id number] Unknown [id number] 2.16.8 [id number] Unknown [id number] 2.16.8 [id number] Unknown [id number] 2.16.8 [id number] Unknown [id number] 2.16.8 [id number] Social History Date Type Detail Facility Start: 04-18-2021 End: 03-25-2023 Tobacco smoking status NHIS Unknown if ever smoked [facility] Start: 07-11-2020 None [facility] Start: 10-25-2015 With Family [facility] Start: 07-11-2020 Non-smoker [facility] Start: 1945 Sex Assigned At Female [facility] Start: 06-18-2024 End: 09-09-2024 Tobacco smoking status NHIS Never smoked tobacco (finding) [facility] Start: 06-18-2024 Sex Female (finding) [facility] Mental Status Date Assessment Result Facility 09-09-2024 Cognitive function Voice/Name [facility] Work Phone: 08-02-2024 Cognitive function Level Of Cons ciousness Awake;Alert;Appropriate;Follow s Commands [facility] Work Phone: 10-12-2021 Cognitive function Voice/Name [facility] Work Phone: Clinical Notes 06-18-2024 to 09-09-2024 Note Date & Type Note Facility 09-09-2024 Discharge summary [facility] 09-09-2024 Radiology Diagnostic study note [facility] Imaging Services [address] [place] [address] Chest 1 View (Portable) MR#: [id number] Acct: [id number] Name: AYAN CARRILLO Rep #: [id number] : 1945 F 79 From: Josey Grider MD PCP: Dr. Lilly Fletcher MD Status: REG ER Study:Chest 1 View (Portable) Date of Exam: 09/09/24 Exam# [id number] Ordering Dr: Donovan Pierson DO PROCEDURE: CHEST 1 VIEW (PORTABLE) 09/09/2024 REASON FOR EXAM: CHEST PAIN TECHNIQUE: Frontal view of the chest. COMPARISON: Chest radiograph on 08/02/2024 FINDINGS: Hardware: There is a medical writer overlying the mediastinum, new from prior. Heart: Cardiac and mediastinal contours are stable. Aortic atherosclerosis. Lungs: No focal consolidation or significant pleural effusion. Bones: Degenerative changes are identified within the thoracic spine. Surgical clips in the right upper quadrant of the abdomen. RAD/Chest 1 View (Portable) IMPRESSION: No acute cardiopulmonary abnormality. Reading Location: [id number] CC: Dr. Lilly Fletcher MD; Dr. Donovan Pierson DO ~ Pet Care Technician: Signed [facility] 09-09-2024 Discharge summary Note Date/Time September 09, 2024 11:06pm [facility] Medical Records Department [address] [place] [address] Emergency Department Summary 09/09/24 MR#: [id number] Acct: [id number] Name: AYAN CARRILLO Rep #:[id number] : [id number] 79 From: Donovan Solomon PCP: Dr. Lilly Fletcher MD Status:REG ER Location: ED HPI History of Present Illness Chief Complaint: Chest Pain Informant: patient Onset/Context/Timing Onset: Hours (6) Activity at onset: gradual Timing: Continuous Location: Substernal Worsened By: Exertion Relieved By: NTG Associated Symptoms: Positive for Dyspnea, Lightheadedness and Palpitations; Negative for Nausea, Vomiting, Diaphoresis, Cough, Fever or Acid Reflux Narrative Narrative: Patient presents with chest pain that began tonight. Patient states it began approximately 6 hours prior to arrival. Patient states it came on gradually. Patient states it has been constant. Patient states it became worse after she walked across the room and back. Patient states she took a Prilosec at home which did not help. Patient states she took sublingual nitroglycerin at home which helped. Patient called EMS. EMS gave the patient aspirin and nitroglycerin. Patient states her pain is better upon arrival to the emergency department. Patient admits to some slight shortness of breath and lightheadedness. Patient also admits to some palpitations. CVD Risk Factors: Positive for Hypertension; Negative for Diabetes, Hypercholesterolemia, Family History 1' </=55 or Smoking PE Risk Factors: Negative for Recent Travel/Surgery, Recent Immobilization, Prior DVT or PE, Cancer or OCP + Smoking + >/=35 PFSH PFSH Medical History Myocardial infarction Obesity Essential (primary) hypertension Atherosclerotic heart disease of [place] coronary artery without angina pectoris Hyperlipidemia GERD (gastroesophageal reflux disease) Osteoarthritis Morbid obesity with BMI of 40.0-44.9, adult Home Medications ?Medication ?Instructions ?Recorded ?Last Taken ?Type aspirin 81 mg chewable tablet 81 mg PO QHS 10/25/15 History nitroglycerin 0.4 mg sublingual 0.4 mg sublingual Q5M PRN Chest 08/10/23 Unknown Rx tablet Pain #25 tabs atorvastatin 40 mg tablet 40 mg PO QHS #90 tabs Unknown Rx omeprazole 20 mg capsule,delayed 20 mg PO DAILY #90 ca ps 08/01/24 Unknown Rx release carvedilol 25 mg tablet 25 mg PO BID Dose has been 0 08/15/24 Unknown Rx increased #180 tabs lisinopril 20 mg tablet 20 mg PO QHS #90 tabs Unknown Rx meloxicam 15 mg tablet 15 mg PO DAILY 09/09/24 Unkn own History Allergy/AdvReac Type Severity Reaction Status Date / Time hydrochlorothiazide AdvReac Intermediate Constipatio Verified 09/09/24 20:05 n Family History Father CAD (coronary artery [...] Denies chills or fever(s) Eyes Eyes: Denies blurry vision or change in vision ENT ENT ED: Denies rhinorrhea or sore throat Cardiovascular Cardiovascular: Denies chest pain or palpitations Respiratory/Chest Respiratory/Chest: Denies cough or dyspnea Gastrointestinal Gastrointestinal: Denies nausea or vomiting Genitourinary Genitourinary ED: Denies dysuria or hematuria Musculoskeletal Musculoskeletal: Denies back pain or neck pain Integumentary Denies abscess or rash Neurologic Neurologic: Denies headache(s) or weakness Allergic/Immunologic Allergic/Immunologic ED: Denies mouth swelling or urticaria EXAM Physical Exam Const Vital Signs: 09/09/24 20:06 09/09/24 20:09 09/09/24 20:26 Temperature 97.9 F Temperature Source Axillary Pulse Rate 64 Respiratory Rate 18 Respiratory Effort Normal Non-Labored Respiratory Pattern Normal Blood Pressure Blood Pressure Mean Pulse Ox 94 98 Oxygen Delivery Method Room Air Room Air 09/09/24 20:52 09/09/24 21:05 09/09/24 22:00 Temperature Temperature Source Pulse Rate 57 L 58 L 56 L Respiratory Rate 20 H 18 Respiratory Effort Respiratory Pattern Blood Pressure 139/82 H 159/70 H 162/72 H Blood Pressure Mean 99 102 Pulse Ox 94 95 Oxygen Delivery Method Room Air Room Air Positive well nourished and well developed General Appearance ED: well developed and NAD HEENT Reports moist mucous membranes Neck supple and no JVD Resp normal respiratory effort and clear to auscultation bilaterally Cardio regular rate and regular rhythm GI soft to palpation, non-tender and non-distended Neuro oriented x3, CN's II-XII intact bilaterally and no sensory deficits noted Sensorium / Orientation: awake and alert Motor Exam: strength 5/5 throughout Psych mental status grossly normal Heart Score History: Slightly/Non-Suspicious ECG: Normal Age: >/= 65 years Risk Factors: 1 or 2 Risk Factors Troponin: </= Normal Limit Score: 3 MDM MDM MDM Narrative Medical decision making narrative: Differential diagnosis includes cardiac dysrhythmia, cardiac ischemia, congestive heart failure, pneumonia, bronchitis, gastroesophageal reflux disease, anxiety, and electrolyte abnormality. EKG will be obtained to assess for cardiac dysrhythmia and cardiac ischemia. Chest x-ray will be obtained to assess for pneumonia and bronchitis. CBC will be obtained to assess for leukocytosis and anemia. Basic metabolic profile will be obtained to assess forelectrolyte abnormality and renal function. High-sensitivity troponin will be obtained to assess for cardiac ischemia. 2-hour repeat high-sensitivity troponin will be obtained to assess for ongoing cardiac ischemia. BNP will be obtained to assess for congestive heart failure. Lab Data Attestation: I reviewed the patient's lab results. Lab results narrative: CBC was reviewed and was within normal limits. Basic metabolic profile was reviewed. Glucose was slightly elevated at 120. The remainder is within normallimits. Initial high-sensitivity troponin was reviewed and was normal at 14. BNP was reviewed and was normal at 468. Labs: Laboratory Results - last 24 hr 09/09/24 20:11 WBC 6.5 RBC 4.50 Hgb 13.7 Hct 41.4 MCV 92.0 MCH 30.4 MCHC 33.1 RDW Std Deviation 42.3 RDW Coeff of Cory 12.5 Plt Count 228 MPV 9.8 Immature Gran % (Auto) 0.600 Neut % (Auto) 70.3 H Lymph % (Auto) 17.2 L Tate % (Auto) 10.2 H Eos % (Auto) 1.2 Baso % (Auto) 0.5 Absolute Neuts (auto) 4.6 Absolute Lymphs (auto) 1.11 Nucleated RBC % 0 Sodium 139 Potassium 4.6 Chloride 103 Carbon Dioxide 27.5 Anion Gap 8 BUN 19 Creatinine 0.55 L Estim Creat Clear Calc 58.92 Est GFR (MDRD) Non-Af 92 BUN/Creatinine Ratio 34.2 H Glucose 120 H Calcium 10.4 Troponin T High Sens 14 D NT pro BNP II 468 Radiography Chest X-Ray - ED: 1 View, Read by ED Physician, Read by Radiologist and No AcuteDisease Diagnostic Testing: Clinical Impression(s) from Imaging Studies Chest X-Ray 09/09/24 20:30 IMPRESSION: No acute cardiopulmonary abnormality. Reading Location: [facility] Portable 1 view chest x-ray was obtained. On my independent interpretation, lung kirk are clear. There is normal cardiac silhouette. Bony thorax is normal. There is no acute process noted. Radiologist also interpreted the x-ray and agrees. EKG Initial EKG: Attestation: I personally reviewed and interpreted this EKG as follows: Interpretation: Sinus Rhythm (64) and No Acute Injury Pattern Comments: EKG was obtained. On my independent interpretation, it showed anormal sinus rhythm with a rate of 64. WV interval, QRS interval, and QTc intervals were all normal. There is borderline left axis deviation at -18. There are no acute ST or T wave changes. Prior EKG tracings: available for review Prior: Unchanged (08/02/2024) Treatment and Re-Evaluation :: The patient was given aspirin by EMS. Patient was given nitroglycerin paste. Patient was advised of her findings. Patient has a HEART score of 3. Patient was advised that this is low risk for acute cardiac event. Care of the patient will be turned over the oncoming physician pending 2-hour repeat troponin. If this has a delta less than 6, I feel the patient can be discharged home. Patient was instructed to follow-up with her primary care physician in 5 to 7 days. Patient was instructed to return if worse in any way. Patient understood and was agreeable with plan. All questions were answered. Discharge Plan Triage Chief Complaint: Chest Pain ED Provider: Donovan Pierson Dx/Rx/DC Orders Clinical Impression: Chest pain, Essential (primary) hypertension Instructions: ED Chest Pain, Uncertain Cause Prescriptions: No Action nitroglycerin 0.4 mg tablet, sublingual 0.4 mg SUBLINGUAL Q5M PRN (Reason: Chest Pain) Qty: 25 2RF Patient Comments: chest pain carvedilol 25 mg tablet 25 mg PO BID Qty: 180 3RF Rx Instructions: must administer with a meal/food lisinopril 20 mg tablet 20 mg PO QHS Qty: 90 4RF aspirin 81 MG tablet,chewable 81 mg PO QHS Patient Comments: [facility] meloxicam 15 mg tablet 15 mg PO DAILY atorvastatin 40 mg tablet 40 mg PO QHS Qty: 90 3RF omeprazole 20 mg capsule,delayed release(DR/EC) 20 mg PO DAILY Qty: 90 3RF Primary Care Provider: Lilly Fletcher Referrals: Lilly Fletcher MD [Primary Care Provider] - Print Language: Telugu What to do if you have Problems For any increased pain, shortness of breath, bleeding, nausea or vomiting, chestpain, or any unexpected problems, contact your Primary Care Provider. Call [facility] ([phone]) or report to the closest Emergency Room. Call 911 if necessary. 09/09/24 4113 <Electronically signed by Donovan Pierson DO> Cosigner Signature (if applicable): CC: Dr. Lilly Fletcher MD ~ Signed ADDENDUM by Dr. Manny Clark DO on 09/09/24 at 2306 Patient's delta troponin was signed out to me to follow-up on. This returned asnormal. Per plan that was signed out to me the patient will be discharged home in stable condition. This was discussed with her she is agreeable this plan allquestion concerns answered she was vies follow-up with In outpatient setting. 09/09/24 2306<Electronically signed by Manny Clark DO> Cosigner Signature (if applicable): cc: Dr. Lilly Fletcher MD ~* Signed [facility] Work Phone: [phone]) 410-557606-16-2025 Evaluation note* Diagnosis Onset Date Resolution Status Admit Date Dizziness acute August 15 3:23pm ANTHONY (dyspnea on exertion) acute August 15, 2024 3:23pm Atherosclerotic heart diseas e of [place] coronary artery without angina pectoris chronic August 15, 2024 3:23pm Essential (primary) hypertension chr onic August 15, 2024 3:23pm Hyperlipidemia chronic August 15, 2024 3:23pm Dizziness acute September 05, 2024 3:54pm ANTHONY (dyspnea on exertion) acute September 05, 2024 3:54pm Atherosclerotic heart diseas e of [place] coronary artery without angina pectoris chronic September 05, 2024 3 :54pm Essential (primary) hypertension chr onic September 05, 2024 3:54pm Hyperlipidemia chronic September 05, 2024 3:54pm [facility] Work Phone: 1(911) 768-230606-03-2025 Discharge summary [facility] Medical Records Department [address] [place] [address] Emergency Department Summary 08/02/24 MR#: [id number] Acct: [id number] Name: AYAN CARRILLO Rep #:[id number] : 1945 79 From: Jaylen Solomon PCP: Dr. Lilly Fletcher MD Status:REG ER Location: ED HPI History of Present Illness Chief Complaint: [facility] Medical History (Updated 08/02/24 @ 06:[address] Jaylen Jack DO) Myocardial infarction Obesity Essential (primary) hypertension Atherosclerotic heart disease of [place] coronary artery without angina pectoris Hyperlipidemia GERD [...] Method Room Air Room Air Room Air [facility] Narrative Medical decision making narrative: HISTORY OF PRESENT ILLNESS: Chief complaint: Weakness, dizziness, lightheadedness Atrial female history of of CAD, [place] status post stent, hypertension, hyperlipidemia presents with [...] reviewed, Vital signs reviewed Constitutional: please see [facility] HENT: MMM Eyes: Pupils equal round and [...] Discharge home This note was generated with KnoCoation software. It may contain incorrectwords, spelling, and [...] 72.1 H Lymph % (Auto) 16.3 L Tate % (Auto) 9.1 Eos % (Auto) 1.5 [...] Sl. Cloudy Urine pH 6.0 Ur Specific [place] 1.020 Urine Protein 30 H Urine Glucose [...] evidence for acute brain abnormality. Reading Location: [place] [address] Chest X-Ray 08/02/24 04:55 IMPRESSION: Mild bilateral basilar atelectatic pulmonary changes. Reading Location: [place] [address] Discharge Plan Triage Chief Complaint: Weakness ED Provider: aJylen Jack Dx/Rx/DC Orders Clinical Impression: Weakness Prescriptions: [...] an ultrasound of the heart(echocardiogram). Print Language: Telugu What to do if you have Problems For any increased pain, shortness of breath, bleeding, nausea or vomiting, chestpain, or any unexpected problems, contact your Primary Care Provider. Call [facility] ([phone]) or report tothe closest Emergency Room. Call 911 if necessary. 08/02/24 0794 Cosigner Signature (if applicable): CC: Dr. Lilly Fletcher MD ~ Signed [facility]06-03-2025 Radiology Diagnostic study note [facility] Imaging Services [address] [place] [address] Chest 1 View (Portable) MR#: [id number] Acct: [id number] Name: AYAN CARRILLO Rep #: [id number] : 1945 F 79 From: Barbara Miranda MD PCP: Dr. Lilly Fletcher MD Status: REG ER Study:Chest 1 View (Portable) Date of Exam: 08/02/24 Exam# [id number] Ordering Dr: Rod Jack DO PROCEDURE: CHEST [...] bilateral basilar atelectatic pulmonary changes. Reading Location: [place] [address] CC: Dr. Lilly Fletcher MD; Dr. Jaylen Jack DO ~ Pet Care Technician: Signed [facility]06-03-2025 Radiology Diagnostic study note [facility] Imaging Services [address] [place] [address] Brain/Head without Contrast MR#: [id number] Acct: [id number] Name: AYAN CARRILLO Rep #: [id number] : 1945 F 79 From: Barbara Miranda MD PCP: Dr. Lilly Fletcher MD Status: REG ER Study:Brain/Head without Contrast Date of Exa m: 08/02/24 Exam# [id number] Ordering Dr: Rod Jack DO PROCEDURE: BRAIN/HEAD [...] evidence for acute brain abnormality. Reading Location: [place] [address] CC: Dr. Lilly Fletcher MD; DO Sommer Mercer Pet Care Technician: Signed [facility]04-19-2025 Discharge summary [facility] Medical Records Department [address] [place] [address] Emergency Department Summary 06/18/24 MR#: [id number] Acct: [id number] Name: AYAN CARRILLO Rep #:[id number] : 1945 78 From: Jennifer MAJOR PCP: [...] pain, shortness of breath, palpitations or syncope. [facility] Medical History Obesity Essential (primary) hypertension Atherosclerotic heart disease of [place] coronary artery without angina pectoris Hyperlipidemia GERD [...] 71.1 H Lymph % (Auto) 18.1 L Tate % (Auto) 9.1 Eos % (Auto) 1.0 [...] 71.1 H Lymph % (Auto) 18.1 L Tate % (Auto) 9.1 Eos % (Auto) 1.0 [...] - Activity Restrictions/Additional Instructions: Follow-up with your animation camera operator to address your low blood pressure. Keep a daily log. Ice and takeTylenol as needed. If symptoms worsen come back to theER. Print Language: Telugu Disposition Disposition: Home, Self Care What to do if you have Problems For any increased pain, shortness of breath, bleeding, nausea or vomiting, chestpain, or any unexpected problems, contact your Primary Care Provider. Call [facility] ([phone]) or report tothe closest Emergency Room. Call 911 if necessary. 06/18/242157 Cosigner Signature (if applicable): 06/18/242158 CC: Dr. Lilly Fletcher MD ~ Signed [facility]04-19-2025 Discharge summary Author Jennifer Meléndez [facility] Note Date/Time June 18, 2024 9:5 9pm [facility] Medical Records Department [address] [place] [address] Emergency Department Summary 06/18/24 MR#: [id number] Acct: [id number] Name: AYAN CARRILLO Rep #:[id number] : 1945 78 From: Jennifer MAJOR PCP: [...] pain, shortness of breath, palpitations or syncope. [facility] <PEDRITO Delacruz - Last Filed: 06/18/24 21:58> [facility] Medical History Obesity Essential (primary) hypertension Atherosclerotic heart disease of [place] coronary artery without angina pectoris Hyperlipidemia GERD [...] <PEDRITO Delacruz - Last Filed: 06/18/24 21:58> [facility] Narrative Medical decision making narrative: 78-year-old female [...] 71.1 H Lymph % (Auto) 18.1 L Tate % (Auto) 9.1 Eos % (Auto) 1.0 [...] 71.1 H Lymph % (Auto) 18.1 L Tate % (Auto) 9.1 Eos % (Auto) 1.0 [...] - Activity Restrictions/Additional Instructions: Follow-up with your animation camera operator to address your low blood pressure. Keep a daily log. Ice and take Tylenol as needed. If symptoms worsen come back to theER. Print Language: Telugu Disposition Disposition: Home, Self Care What to do if you have Problems For any increased pain, shortness of breath, bleeding, nausea or vomiting, chestpain, or any unexpected problems, contact your Primary Care Provider. Call [facility] ([phone]) or report to the closest Emergency Room. Call 911 if necessary. 06/18/242157 <Electronically signed by Jennifer MAJOR> Cosigner Signature (if applicable): 06/18/242158 <Electronically signed by Jay Hair MD> CC: Dr. Lilly Fletcher MD ~ Signed [facility] Work Phone: Discharge summary Author Jaylen Jack [facility] Note Date/Time August 02, 2024 6:45a m [facility] Medical Records Department [address] [place] [address] Emergency Department Summary 08/02/24 MR#: [id number] Acct: [id number] Name: AYAN CARRILLO Rep #:[id number] : 1945 79 From: Jaylen Solomon PCP: Dr. Lilly Fletcher MD Status:REG ER Location: ED HPI History of Present Illness Chief Complaint: Weakness [facility] Medical History (Updated 08/02/24 @ 06:[address] Jaylen Jack, DO) Myocardial infarction Obesity Essential (primary) hypertension Atherosclerotic heart disease of [place] coronary artery without angina pectoris Hyperlipidemia GERD [...] Method Room Air Room Air Room Air [facility] Narrative Medical decision making narrative: HISTORY OF PRESENT ILLNESS: Chief complaint: Weakness, dizziness, lightheadedness Atrial female history of of CAD, [place] status post stent, hypertension, hyperlipidemia presents with [...] Discharge home This note was generated with KnoCoation software. It may contain incorrectwords, spelling, and [...] 72.1 H Lymph % (Auto) 16.3 L Tate % (Auto) 9.1 Eos % (Auto) 1.5 [...] Sl. Cloudy Urine pH 6.0 Ur Specific [place] 1.020 Urine Protein 30 H Urine Glucose [...] evidence for acute brain abnormality. [facility] Chest X-Ray 08/02/24 04:55 IMPRESSION: Mild bilateral basilar atelectatic pulmonary changes. Reading Location: [facility] Discharge Plan Triage Chief Complaint: Weakness ED [...] an ultrasound of the heart(echocardiogram). Print Language: Telugu What to do if you have Problems For any increased pain, shortness of breath, bleeding, nausea or vomiting, chestpain, or any unexpected problems, contact your Primary Care Provider. Call [facility] ([phone]) or report to the closest Emergency Room. Call 911 if necessary. 08/02/24 4313 <Electronically signed by Jaylen Jack DO> Cosigner Signature (if applicable): CC: Dr. Lilly Fletcher MD ~ Signed [facility] Work Phone: Evaluation note* Diagnosis Onset Date Resolution Status Atherosclerotic heart diseas e of [place] coronary artery without angina pectoris chronic Essential (primary) hypertension chronic Hyperlipidemia chronic [facility] Work Phone: Evaluation noteNo assessment information available [facility] Work Phone: Evaluation note* Diagnosis Onset Date Resolution Status ANTHONY (dyspnea on exertion) ac erica Palpitations acute Atherosclerotic heart diseas e of [place] coronary artery without angina pectoris chronic Essential (primary) hypertension chronic Hyperlipidemia chronic [facility] Work Phone: Evaluation note* Diagnosis Onset Date Resolution Status Atherosclerotic heart diseas e of [place] coronary artery without angina pectoris chronic Essential (primary) hypertension chronic Hyperlipidemia chronic Cystitis acute [facility] Work Phone: Evaluation note* Diagnosis Onset Date Resolution Status Admit Date Dizziness acute August 15 3:23pm ANTHONY (dyspnea on exertion) acute August 15, 2024 3:23pm Atherosclerotic heart diseas e of [place] coronary artery without angina pectoris chronic August 15, 2024 3:23pm Essential (primary) hypertension chr onic August 15, 2024 3:23pm Hyperlipidemia chronic August 15, 2024 3:23pm [facility] Work Phone: Hospital Discharge instructions Additional Instructions Your work up today showed no sign of heart attack. I think your chest pain is from GERD or acid reflux. Continue your home medication and I prescribed Carafate to take before each meal and at bedtime. Please follow-up with your primary care doctor.[facility] Work Phone: Hospital Discharge instructions Additional Instructions Follow-up with your animation camera operator to address your low blood pressure. Keep a daily log. Ice and take Tylenol as needed. If symptoms worsen come back to the ER.[facility] Work Phone: Hospital Discharge instructions Additional Instructions [...] about repeating an ultrasound of the heart (echocardiogram).[facility] Work Phone: Reason for referral (narrative)No reason for referral information [facility] Work Phone: Chief Complaint and Reason for Visit Chief Complaint 6 M FU CAD - ANGIOPLASTY 2016 CAD - ANGIOPLASTY 2016 INT LABS Reason for Visit Atherosclerotic hear t disease of [place] coronary artery without angina pectoris Essential (primary) hypertension Hyperlipidemia Chief Complaint chest pain Chief Complaint chest pain 6 M FU PALPITATIONS Reason for Visit ANTHONY (dyspnea on exer tion) Palpitations Atherosclerotic heart disease of [place] coronary artery without angina pectoris Essential (primary) hypertension Hyperlipidemia Chief Complaint chest pain 6 M FU PALPITATIONS ANTHONY Reason for Visit ANTHONY (dyspnea on exer tion) Palpitations Atherosclerotic heart disease of [place] coronary artery without angina pectoris Essential (primary) hypertension Hyperlipidemia Chief Complaint chest pain 6 M FU PALPITATIONS ANTHONY EORDERS Reason for Visit ANTHONY (dyspnea on exer tion) Palpitations Atherosclerotic heart disease of [place] coronary artery without angina pectoris Essential (primary) hypertension Hyperlipidemia Chief Complaint 6 M FU Reason for Visit Atherosclerotic hear t disease of [place] coronary artery without angina pectoris Essential (primary) hypertension Hyperlipidemia Chief Complaint 6 M FU CONCERN FOR UTI Reason for Visit Atherosclerotic hear t disease of [place] coronary artery without angina pectoris Essential (primary) hypertension Hyperlipidemia Cystitis Chief Complaint Admit Date fallJune 18, 2024 8:3 3pm Chief Complaint Admit Date fallJune 18, 2024 8:3 3pm weakness August 02, 2024 3:41a m Chief Complaint Admit Date fall June 18, 2024 8:3 3pm weakness August 02, 2024 3:41a m 6 M FU August 15, 2024 3:23 pm Reason for Visit Admit Date Dizziness August 15, 2024 3:23 pm ANTHONY (dyspnea on exertion) August 15 3:23pm Atherosclerotic heart diseas e of [place] coronary artery without angina pectoris August 15, [...] 15 3:23pm Atherosclerotic heart diseas e of [place] coronary artery without angina pectoris August 15, 2024 3:23pm Essential (primary) hypertension August 152024 3:23pm Hyperlipidemia August 15, 2024 3:23 pm Dizziness September 05, 2024 3:54p m ANTHONY (dyspnea on exertion) September 05, 2024 3:54pm Atherosclerotic heart diseas e of [place] coronary artery without angina pectoris September 05, 2024 3:54pm Essential (primary) hypertension August 3:54pm Hyperlipidemia September 05, 2024 3:54p m Chief Complaint Admit Date fall June 18, 2024 8:3 3pm weakness August 02, 2024 3:41a m 6 M FU August 15, 2024 3:23 pm 4-6 WK FU September 05, 2024 3:54p m chest pain September 09, 2024 8:05 pm Family History No Family History Records Found Relationship Condition Age at Onset Recorded Date/T oli father Coronary artery disease Unknown mother Congestive heart failure Unknown sister Hypertension Unknown Advance Directives No Advanced Directives Records Found Advance Directive Response Recorded Date/ Time Advance Directives Yes October 25, 2015 5:48pm Living Will No August 03, 2020 1 :39pm Power of Multiple Spindle Router Operator No August 03, 2020 1:39pm Advance Directive Response Recorded Date/ Time Advance Directives Yes October 25, 2015 5:48pm Living Will Yes October 12 2:43pm Power of Multiple Spindle Router Operator Yes October 12, 022 2:43pm Name of Medical Power of Multiple Spindle Router Operator daughter October 12, 2021 2:43pm Advance Directive Response Recorded Date/ Time Name of Medical Power of Multiple Spindle Router Operator daughter October 12, 2021 2:43pm Advance Directives Yes October 25, 2015 5:48pm Living Will Yes October 12 2:43pm Power of Multiple Spindle Router Operator Yes October 12 022 2:43pm Advance Directive Response Recorded Date/ Time Name of Medical Power of Multiple Spindle Router Operator daughter October 12, 2021 1:43pm Advance Directives Yes October 25, 2015 4:48pm Living Will Yes October 12 2 1:43pm Power of Multiple Spindle Router Operator Yes October 12 022 1:43pm Advance Directive Response Recorded Date/ Time Advance Directives Yes October 25, 2015 4:48pm Living Will Yes October 12 1:43pm Power of Multiple Spindle Router Operator Yes October 12 1:43pm Advance Directive Response Recorded Date/ Time Living Will Yes June 18, 2024 8:38pm Do you have a Healthcare Power of Multiple Spindle Router Operator? Yes June 18, 2024 8:38pm Name of Medical Power of Multiple Spindle Router Operator Cassandra June 18, 2024 8:38pm Advance Directives Yes October 25, 2015 5:48pm Advance Directive Response Recorded Date/ Time Living Will Yes June 18, 2024 8:38pm Do you have a Healthcare Power of Multiple Spindle Router Operator? Yes June 18, 2024 8:38pm Name of Medical Power of Multiple Spindle Router Operator Cassandra June 18, 2024 8:38pm Do you have a Healthcare Power of Multiple Spindle Router Operator? Yes August 02, 2024 3:44am Advance Directives Yes October 25, 2015 5:48pm Advance Directive Response Recorded Date/ Time Living Will No July 15, 2023 9 :56pm Do you have a Healthcare Power of Multiple Spindle Router Operator? No July 15, 2023 9:56pm Living Will Yes June 18, 2024 8:38pm Do you have a Healthcare Power of Multiple Spindle Router Operator? Yes June 18, 2024 8:38pm Name of Medical Power of Multiple Spindle Router Operator Cassandra June 18, 2024 8:38pm Do you have a Healthcare Power of Multiple Spindle Router Operator? Yes August 02, 2024 3:44am Advance Directives Yes October 25, 2015 5:48pm Advance Directive Response Recorded Date/ Time Living Will No July 15, 2023 9 :56pm Do you have a Healthcare Power of Multiple Spindle Router Operator? No July 15, 2023 9:56pm Living Will Yes June 18, 2024 8:38pm Do you have a Healthcare Power of Multiple Spindle Router Operator? Yes June 18, 2024 8:38pm Name of Medical Power of Multiple Spindle Router Operator Cassandra June 18, 2024 8:38pm Do you have a Healthcare Power of Multiple Spindle Router Operator? Yes August 02, 2024 3:44am Do you have a Healthcare Power of Multiple Spindle Router Operator? No September 09, 2024 8:09pm Advance Directives Yes October 25, 2015 5:48pm [...] Provider, Referrin g Provider Active Ginger Grace SMT OPERATOR, SMT OPERATOR-C Attending Provider Active Team Status: Inactive Member Role Status Dates Dr. Lilly Fletcher MD Primary Care Provider Active Ginger Grace SMT OPERATOR, SMT OPERATOR-C Attending Provider Active Team Status: Inactive Member [...] 2024 End: August 15, 2024 Kale Ansari SMT OPERATOR, SMT OPERATOR-C Attending Provider Active S tart: August 15, [...] 2024 End: August 15, 2024 Kale Ansari SMT OPERATOR, SMT OPERATOR-C Attending Provider Active S tart: August 15, 2024 End: August 15, 2024 Team Status: Inactive Member Role/Relationship Status Dates Dr. Lilly Fletcher MD Primary Care Provider Active Start: September 05, 2024 End: September 05, 2024 Dr. Lilly Fletcher MD Referring Provider Active Start: September 05, 2024 End: September 05, 2024 Kale Ansari SMT OPERATOR, SMT OPERATOR-C Attending Provider Active S tart: September 05, 2024 End: September 05, 2024 Team Status: Inactive Member Role/Relationship Status Dates Dr. Lilly Fletcher MD Primary Care Provider Active Start: September 09, 2024 End: September 09, 2024 Dr. Donovan Pierson DO Emergency Provider Active Start: September 09, 2024 End: September 09, 2024 INFORMATION SOURCE (unrecogn ized section and content) DATE CREATED AUTHOR 09/30/2024 [facility] FOR RECORDS PERTAINING TO PATIENTS WHO ARE [...] BE BASED ON THE PRIMARY CLINICAL RECORDS. [employer] [facility]. provides no warranty or guarantee of the accuracy or completeness of information in this document.
[2024-10-01 10:36] LABS: Cholesterol 106 mg/dL (<=200); Low Density Lipoprotein Calc. 41 mg/dL; Triglycerides 108 mg/dL; Very Low Density Lipoprotein 22 mg/dL (5-40); cholesterol:hdl ratio screen 2.46
[2024-10-01 10:41] LABS: AST(SGOT) 21 U/L (<=31); Alanine Aminotransfer ALT/SGPT 18 U/L (<=34); Albumin, Serum 3.4 g/dL (3.4-4.8); Alkaline Phosphatase 101 U/L (35-104); Bilirubin, Direct 0.31 mg/dL (0.00-0.30); Globulin 2.8 g/dL (2.2-4.2)
== END | disposition home or self-care (01) ==
LOC: LAB 09:45
PROVIDERS: Nurse Practitioner Gerontology; Referring Provider Nurse Practitioner Family; Visit Provider Nurse Practitioner Family
DX: I48.0 Paroxysmal atrial fibrillation (principal); I47.29 Other ventricular tachycardia; I25.10 Atherosclerotic heart disease of native coronary artery without angina pectoris; I10 Essential (primary) hypertension; R06.09 Other forms of dyspnea; E78.00 Pure hypercholesterolemia, unspecified; Z98.61 Coronary angioplasty status
CPT/HCPCS: 36415; 80061; 80076; 84443

== ENCOUNTER 2024-10-21 09:39 | Emergency (ER) | payer MEDICARE, SELFPAY ==
[2024-10-21] VITALS (9 sets, daily range): BP systolic 149–170; BP diastolic 70–133; PULSE 63–85; RESP 16–27; TEMP 36.6–36.9; O2SAT 94–96; BMI 43.7
--- NOTE | 2024-10-21 10:19 | EKG12_ITS ---
Test Reason : CP Blood Pressure : */* mmHG Vent. Rate : 66 BPM Atrial Rate : 66 BPM P-R Int : 144 ms QRS Dur : 106 ms QT Int : 404 ms P-R-T Axes : 19 -22 14 degrees QTcB Int : 423 ms Normal sinus rhythm Minimal voltage criteria for LVH, may be normal variant ( R in aVL ) Borderline ECG Confirmed by DARIEL OHARA, ANGÉLICA ([id number]), commissioning editor KIRSTIN ARAIZA ([id number]) on 10/24/2024 7:31:38 AM Referred By: PAT Confirmed By: ANGÉLICA VIEIRA MD
--- NOTE | 2024-10-21 10:19 | ED.VIS.CHEST ---
HPI History of Present Illness Chief Complaint: Chest Pain Informant: patient Onset/Context/Timing Onset: Today Activity at onset: sudden Timing: Continuous Quality: Positive for Pressure and - (Racing) Location: Substernal Worsened By: Nothing Relieved By: Nothing Associated Symptoms: Positive for Dyspnea, Lightheadedness and Palpitations; Negative for Nausea, Vomiting, Diaphoresis, Cough, Fever or Acid Reflux Narrative Narrative: Patient presents with chest pain that began today. Patient states began suddenly. Patient states has been constant. Patient states she felt like her heart was racing this morning. Patient admits to some pressure in her chest. Patient states the pain is mainly over the substernal area. Patient states nothing makes it worse and nothing makes it better. Patient admits to some shortness of breath and lightheadedness. Patient denies any nausea or vomiting. Patient denies any fevers or chills. CVD Risk Factors: Positive for Hypertension and Hypercholesterolemia; Negative for Diabetes, Family History 1' </=55 or Smoking PE Risk Factors: Negative for Recent Travel/Surgery, Recent Immobilization, Prior DVT or PE, Cancer or OCP + Smoking + >/=35 PFSH PFSH Medical History Myocardial infarction Obesity Essential (primary) hypertension Atherosclerotic heart disease of [place] coronary artery without angina pectoris Hyperlipidemia GERD (gastroesophageal reflux disease) Osteoarthritis Morbid obesity with BMI of 40.0-44.9, adult Home Medications ?Medication ?Instructions ?Recorded ?Last Taken ?Type aspirin 81 mg chewable tablet 81 mg PO QHS 10/25/15 10/24/15 History nitroglycerin 0.4 mg sublingual 0.4 mg sublingual Q5M PRN Chest 08/10/23 Unknown Rx tablet Pain #25 tabs atorvastatin 40 mg tablet 40 mg PO QHS #90 tabs 08/01/24 Unknown Rx omeprazole 20 mg capsule,delayed 20 mg PO DAILY #90 caps 08/01/24 Unknown Rx release carvedilol 25 mg tablet 25 mg PO BID Dose has been 08/15/24 Unknown Rx increased #180 tabs lisinopril 20 mg tablet 20 mg PO QHS #90 tabs 08/15/24 Unknown Rx meloxicam 15 mg tablet 15 mg PO DAILY 09/09/24 Unknown History apixaban 5 mg tablet (Eliquis) 5 mg PO BID #60 tabs 09/29/24 Unknown Rx levothyroxine 75 mcg capsule 75 mcg PO QDAY #30 caps 10/03/24 Unknown Rx diltiazem HCl 120 mg capsule,24 120 mg PO QAM #30 caps 10/14/24 Unknown Rx hr,extended release (Tiadylt ER) Allergy/AdvReac Type Severity Reaction Status Date / Time hydrochlorothiazide AdvReac Intermediate Constipatio Verified 10/21/24 09:44 n Family History Father CAD (coronary artery disease) Mother CHF (congestive heart failure) Sister Hypertension Surgical History History of cholecystectomy History of left heart catheterization (06/04/08) History of coronary angioplasty (09/20/07) History of laparoscopic cholecystectomy History of total hysterectomy Social History Smoking Status: Never smoker alcohol intake: never substance use type: does not use ROS ROS ED Constitutional Constitutional ED: Denies chills or fever(s) Eyes Eyes: Denies blurry vision or change in vision ENT ENT ED: Reports rhinorrhea; Denies sore throat Cardiovascular Cardiovascular: Reports chest pain, palpitations and racing heartbeat Respiratory/Chest Respiratory/Chest: Reports dyspnea; Denies cough Gastrointestinal Gastrointestinal: Denies nausea or vomiting Genitourinary Genitourinary ED: Denies dysuria or hematuria Musculoskeletal Musculoskeletal: Reports back pain; Denies neck pain Integumentary Denies abscess or rash Neurologic Neurologic: Denies headache(s) or weakness Allergic/Immunologic Allergic/Immunologic ED: Denies mouth swelling or urticaria EXAM Physical Exam Const Vital Signs: 10/21/24 09:40 10/21/24 09:41 10/21/24 10:19 Temperature 98.5 F Temperature Source Oral Pulse Rate 77 Respiratory Rate 16 Respiratory Effort Normal Blood Pressure 156/70 H Blood Pressure Mean 98 Pulse Ox 96 95 Oxygen Delivery Method Room Air Room Air 10/21/24 10:46 10/21/24 11:00 10/21/24 12:15 Temperature Temperature Source Pulse Rate 70 66 65 Respiratory Rate 16 16 20 H Respiratory Effort Blood Pressure 152/95 H 153/94 H 164/82 H Blood Pressure Mean 114 113 109 Pulse Ox 94 94 95 Oxygen Delivery Method Room Air Room Air Room Air 10/21/24 13:00 10/21/24 14:00 10/21/24 15:00 Temperature Temperature Source Pulse Rate 63 69 72 Respiratory Rate 27 H 22 H 24 H Respiratory Effort Blood Pressure 149/133 H 162/92 H 157/73 H Blood Pressure Mean 139 112 101 Pulse Ox 95 96 94 Oxygen Delivery Method Positive well nourished and well developed Constitutional Narrative: BMI is 43.7. General Appearance ED: well developed and NAD HEENT Reports moist mucous membranes Neck supple and no JVD Resp normal respiratory effort and clear to auscultation bilaterally Cardio regular rate and regular rhythm GI soft to palpation, non-tender and non-distended Extremity normal to inspection Neuro oriented x3, CN's II-XII intact bilaterally and no sensory deficits noted Sensorium / Orientation: awake and alert Motor Exam: strength 5/5 throughout Psych mental status grossly normal Heart Score History: Slightly/Non-Suspicious ECG: Normal Age: >/= 65 years Risk Factors: >/= 3 Risk Factors or History of CAD Troponin: </= Normal Limit Score: 4 MDM MDM MDM Narrative Medical decision making narrative: Differential diagnosis includes cardiac dysrhythmia, cardiac ischemia, pneumonia, bronchitis, electrolyte abnormality, dehydration, and anxiety. EKG will be obtained to assess for cardiac dysrhythmia and cardiac ischemia. Chest x-ray will be obtained to assess for pneumonia or bronchitis. CBC will be obtained to assess for leukocytosis and anemia. Basic metabolic profile will be obtained to assess for electrolyte abnormality and renal function. High-sensitivity troponin will be obtained to assess for cardiac ischemia. 2-hour repeat high-sensitivity troponin will be obtained to assess for ongoing cardiac ischemia. Lab Data Attestation: I reviewed the patient's lab results. Lab results narrative: CBC was reviewed and was within normal limits. Basic metabolic profile was reviewed and was essentially within normal limits. Initial high-sensitivity troponin was reviewed and was slightly elevated at 20. 2-hour repeat high-sensitivity troponin was reviewed and was improving at 19. Labs: Laboratory Results - last 24 hr 10/21/24 10/21/24 10:03 12:55 WBC 6.7 RBC 4.93 Hgb 14.6 Hct 44.8 MCV 90.9 MCH 29.6 MCHC 32.6 RDW Std Deviation 42.5 RDW Coeff of Cory 12.7 Plt Count 208 MPV 9.6 Immature Gran % (Auto) 0.300 Neut % (Auto) 75.0 H Lymph % (Auto) 14.0 L [place] % (Auto) 9.1 Eos % (Auto) 1.2 Baso % (Auto) 0.4 Absolute Neuts (auto) 5.0 Absolute Lymphs (auto) 0.94 Nucleated RBC % 0 Sodium 139 Potassium 4.2 Chloride 103 Carbon Dioxide 27.1 Anion Gap 9 BUN 15 Creatinine 0.44 L Estim Creat Clear Calc 58.95 Est GFR (MDRD) Non-Af 98 BUN/Creatinine Ratio 34.9 H Glucose 114 H Calcium 10.1 Troponin T High Sens 20 H D Troponin T Hi Sens 2 Hr 19 H Radiography Chest X-Ray - ED: 1 View, Read by ED Physician, Read by Radiologist and No Acute Disease Diagnostic Testing: Clinical Impression(s) from Imaging Studies Chest X-Ray 10/21/24 10:40 IMPRESSION: Right upper quadrant abdominal surgical clips are again seen. Mild left hemidiaphragm elevation is again noted. Lungs appear clear of acute disease. No pleural effusion or pneumothorax is noted. The cardiomediastinal silhouette is stable, without significant cardiomegaly identified. Generalized osteopenia is again present. No acute osseous change is seen, although sensitivity is reduced by the degree of osteopenia. Reading Location: [place] [id number] Portable 1 view chest x-ray was obtained. On my independent interpretation, lung kirk are clear. There is normal cardiac silhouette. Bony thorax is normal. There is no acute process noted. Radiologist also interpreted the x-ray and agrees. EKG Initial EKG: Attestation: I personally reviewed and interpreted this EKG as follows: Interpretation: Sinus Rhythm (66) and No Acute Injury Pattern Comments: EKG was obtained. On my independent interpretation, it showed a normal sinus rhythm with a rate of 66. MN interval, QRS interval, and QTc intervals were all normal. There is borderline left axis deviation at -22. There are no acute ST or T wave changes. Prior EKG tracings: available for review Prior: Changed (Compared to EKG dated 10/14/2024, patient is no longer in atrial fibrillation but is in a sinus rhythm. Otherwise, there are no acute changes.) Treatment and Re-Evaluation :: Patient was given aspirin. Patient was feeling better on reevaluation. Patient was advised of her findings. Patient has a HEART score of 4. Patient was instructed to follow-up with her primary care physician as scheduled. Patient states she is scheduled for an outpatient stress test next week. Patient was instructed to follow-up with this test. Patient was instructed to return if worse in any way. Patient understood and was agreeable with the plan. All questions were answered. Discharge Plan Triage Chief Complaint: Chest Pain ED Provider: Donovan Pierson Dx/Rx/DC Orders Clinical Impression: Chest pain, Essential (primary) hypertension Instructions: ED Chest Pain, Uncertain Cause Prescriptions: No Action nitroglycerin 0.4 mg tablet, sublingual 0.4 mg SUBLINGUAL Q5M PRN (Reason: Chest Pain) Qty: 25 2RF Patient Comments: chest pain carvedilol 25 mg tablet 25 mg PO BID Qty: 180 3RF Rx Instructions: must administer with a meal/food lisinopril 20 mg tablet 20 mg PO QHS Qty: 90 4RF aspirin 81 MG tablet,chewable 81 mg PO QHS Patient Comments: [facility] meloxicam 15 mg tablet 15 mg PO DAILY atorvastatin 40 mg tablet 40 mg PO QHS Qty: 90 3RF omeprazole 20 mg capsule,delayed release(DR/EC) 20 mg PO DAILY Qty: 90 3RF Eliquis 5 mg tablet 5 mg PO BID Qty: 60 11RF levothyroxine 75 mcg capsule 75 mcg PO QDAY Qty: 30 11RF diltiazem HCl [Tiadylt ER] 120 mg capsule,extended release 24 hr 120 mg PO QAM Qty: 30 3RF Primary Care Provider: Care Physician,No Primary Referrals: Care Physician,No Primary [Primary Care Provider] - Doctor,Your [Non-Staff] - Keep Shiela appointment Print Language: Nigerian Disposition Disposition: Home, Self Care
[2024-10-21 10:27] LABS: Hematocrit 44.8 % (37-47); Hemoglobin 14.6 g/dL (12.0-15.0); Immature Granulocytes Count 0.020 X10^3/uL (0.0-0.0); Mean Corp Hgb Conc 32.6 g/dL (32-36); Mean Corpuscular Volume 90.9 fL (81-99); Mean Platelet Vol. 9.6 fl (6.2-12.0); NRBC Flagged by Analyzer 0 % (0-5); Platelet Count 208 K/mm3 (150-450); RBC Distribution Width CV 12.7 % (11.6-14.6); RBC Distribution Width SD 42.5 fl (35.1-43.9); Red Blood Count 4.93 M/mm3 (4.2-5.4); White Blood Count 6.7 K/mm3 (4.4-11.0)
--- NOTE | 2024-10-21 10:40 | RAD_ITS ---
PROCEDURE: CHEST 1 VIEW (PORTABLE) 10/21/2024 REASON FOR EXAM: CHEST PAIN TECHNIQUE: Frontal view of the chest. COMPARISON: AP chest of 09/09/2024 RAD/Chest 1 View (Portable) IMPRESSION: Right upper quadrant abdominal surgical clips are again seen. Mild left hemidiaphragm elevation is again noted. Lungs appear clear of acute disease. No pleural effusion or pneumothorax is no william. The cardiomediastinal silhouette is stable, without significant cardiomegaly id entified. Generalized osteopenia is again present. No acute osseous change is seen, although sensitivity is reduced by the degree of osteopenia. Reading Location: [place] [id number]
[2024-10-21 11:01] LABS: Anion Gap 9 (5-15); BUN 15 mg/dL (4-19); BUN/Creat Ratio 34.9 RATIO (10-20); Calcium,Total 10.1 mg/dL (7.6-11.0); Carbon Dioxide 27.1 mmol/L (21.0-32.0); Chloride 103 mmol/L (98-108); Estimated Creatinine Clearance 58.95 ml/min (50-250); Glucose 114 mg/dL (70-99); Potassium 4.2 mmol/L (3.3-5.1); Troponin T High Sensitivity 20 ng/L (<=14)
[2024-10-21 14:32] LABS: Troponin T High Sens 2 HR 19 ng/L (<=14)
--- NOTE | 2024-10-21 16:17 | CM.ED ---
Social Work Reason for visit: No PCP Patient verified that she does not currently have a PCP. [facility] provider list given. Patient thankful for same. No further needs at this time. Deepti Gustafson, CYLINDER MACHINE OPERATOR [employer], TREASURY CONSULTANT
== END 2024-10-21 15:18 | disposition home or self-care (01) ==
PROVIDERS: Emergency Provider Emergency Medicine; Visit Provider Emergency Medicine
DX: R07.9 Chest pain, unspecified (principal); E78.00 Pure hypercholesterolemia, unspecified; I25.10 Atherosclerotic heart disease of native coronary artery without angina pectoris; I10 Essential (primary) hypertension; R06.02 Shortness of breath; R00.2 Palpitations; E66.9 Obesity, unspecified; K21.9 Gastro-esophageal reflux disease without esophagitis; Z79.82 Long term (current) use of aspirin; Z79.01 Long term (current) use of anticoagulants; Z79.890 Hormone replacement therapy; Z79.899 Other long term (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; I25.2 Old myocardial infarction
CPT/HCPCS: 71045; 80048; 84484; 85025; 93005; 99285; A4216

== ENCOUNTER 2024-10-25 12:04 | Observation (INO) | payer MEDICARE, SELFPAY ==
[2024-10-25] VITALS (9 sets, daily range): BP systolic 119–147; BP diastolic 68–84; PULSE 65–83; RESP 16–18; TEMP 36.6–36.7; O2SAT 92–100; BMI 42.3; BMI 41.3
--- NOTE | 2024-10-25 13:10 | ED.VIS.CHEST ---
HPI History of Present Illness Chief Complaint: Chest Pain [facility] Medical History Myocardial infarction Obesity Essential (primary) hypertension Atherosclerotic heart disease of [place] coronary artery without angina pectoris Hyperlipidemia GERD (gastroesophageal reflux disease) Osteoarthritis Morbid obesity with BMI of 40.0-44.9, adult Home Medications ?Medication ?Instructions ?Recorded ?Last Taken ?Type aspirin 81 mg chewable tablet 81 mg PO QHS 10/25/15 10/24/24 History nitroglycerin 0.4 mg sublingual 0.4 mg sublingual Q5M PRN Chest 08/10/23 10/25/24 Rx tablet Pain #25 tabs atorvastatin 40 mg tablet 40 mg PO QHS #90 tabs 08/01/24 10/24/24 Rx omeprazole 20 mg capsule,delayed 20 mg PO DAILY #90 caps 08/01/24 10/25/24 Rx release carvedilol 25 mg tablet 25 mg PO BID Dose has been 08/15/24 10/25/24 Rx increased #180 tabs lisinopril 20 mg tablet 20 mg PO QHS #90 tabs 08/15/24 10/24/24 Rx apixaban 5 mg tablet (Eliquis) 5 mg PO BID #60 tabs 09/29/24 10/25/24 Rx diltiazem HCl 120 mg capsule,24 120 mg PO QAM #30 caps 10/14/24 10/25/24 Rx hr,extended release (Tiadylt ER) levothyroxine 75 mcg tablet 75 mcg PO DAILY 10/25/24 10/25/24 History potassium gluconate 595 mg (99 mg) 595 mg PO DAILY 10/25/24 10/25/24 History tablet Allergy/AdvReac Type Severity Reaction Status Date / Time hydrochlorothiazide AdvReac Intermediate Constipatio Verified 10/25/24 12:08 n Family History Father CAD (coronary artery disease) Mother CHF (congestive heart failure) Sister Hypertension Surgical History History of cholecystectomy History of left heart catheterization (06/04/08) History of coronary angioplasty (09/20/07) History of laparoscopic cholecystectomy History of total hysterectomy Social History (Updated 10/25/24 @ 12:06 by Annette Chacon) housing: house Smoking Status: Never smoker alcohol intake: never substance use type: does not use EXAM Physical Exam Const Vital Signs: 10/25/24 12:05 10/25/24 12:05 10/25/24 13:05 Temperature 97.8 F Temperature Source Oral Pulse Rate 83 80 Respiratory Rate 16 18 Respiratory Effort Normal Non-Labored Blood Pressure 119/84 H 127/80 H Blood Pressure Mean 95 95 Pulse Ox 94 99 Oxygen Delivery Method Room Air 10/25/24 14:03 10/25/24 15:00 Temperature Temperature Source Pulse Rate 80 66 Respiratory Rate 18 Respiratory Effort Blood Pressure 125/80 H 131/70 H Blood Pressure Mean 95 90 Pulse Ox 100 99 Oxygen Delivery Method MDM MDM MDM Narrative Medical decision making narrative: HISTORY OF PRESENT ILLNESS: Chief complaint: Chest pain 79-year-old female history of hypertension, CAD, GERD, CAD status post stent, A-fib on Eliquis presents with with chest pain. Notes started this morning. She notes it began after food. Denies abdominal pain. No she took 2 nitro at home with minimal relief. No she got aspirin per EMS. She states she woke this morning with chest pressure and tightness. Is not exertional. It is not sharp. Is not ripping or tearing. Is not associate with syncope. Denies diaphoresis or nausea associated. Denies associated shortness of breath. Denies new leg swelling, orthopnea or proximal nocturnal dyspnea. Denies any bleeding diathesis. Denies cough fever or chills. The patient denies recent surgery in the last 4 weeks or immobilization in the last 3 days, denies previous diagnosis of DVT or PE, hemoptysis, unilateral leg swelling or malignancy with treatment the last 6 months or palliative. No estrogen use noted. Patient denies sudden onset of pain, no tearing sensation, no migratory symptoms, no new numbness, weakness or loss of sensation. Patient denies family history or personal history of Connective tissue disorders (Marfan's Syndrome, Srinivas Danlos etc) REVIEW OF SYSTEMS: Pertinent positives: Chest pain Pertinent negatives: As per HPI PHYSICAL EXAM: Nursing triage notes reviewed, Vital signs reviewed Constitutional: please see mdm HENT: MMM Eyes: Pupils equal round and reactive to light, Extraocular muscles intact Neck: No stridor, no JVD, full neck ROM Lungs: Clear to auscultation, No wheezing or rales. No increased work of breathing, no conversational dyspnea, no accessory muscle use, no nasal flaring. No respiratory distress noted Heart: Regular rate and rhythm, No murmurs, No rubs and No gallops, 2+ distal pulses (radial, femoral, posterior tibial) in all extremities Abdomen: Soft, there is no tenderness, rigidity, rebound or guarding, no obvious peritoneal signs, no palpable pulsatile abdominal masses, no auscultated abdominal bruit : No CVAT Extremities: No edema Neuro: No new focal neurological deficits, cranial nerves II through XII intact, 5/5 strength in all present extremities. Intact sensation to light touch in all present extremities, 2+ reflexes bilateral patella tendons. Skin: No rash or lesions noted MEDICAL DECISION MAKING: Chief Complaint: please see HPI External records reviewed: Reviewed prior cardiovascular testing: Reviewed echocardiogram from October 2023: Showed ejection fraction of 65. Factors affecting care: as per HPI Social determinants of health: Denies illicit drug use A-fib on Eliquis History obtained from others: EMS Consults: Cardiology (Dr. Franco), Internal Medicine (Dr. Little) MDM Narrative: The patient was initially hemodynamically stable, afebrile and nontoxic-appearing. Exam without focal cardiopulmonary abnormalities. Patient is in no acute distress. Not having chest pain. I considered the following differential diagnosis: ACS, arrhythmia, anemia, electrolyte disturbance, PE, aortic dissection I obtained a broad lab and imaging to further determine if the patient was suffering from a life-threatening etiology. Patient did receive nitroglycerin and aspirin so I gave Toradol for additional pain relief. ALL IMAGES (IF OBTAINED) HAVE BEEN PERSONALLY REVIEWED AND INTERPRETED BY MYSELF. CBC with no leukocytosis, no anemia or thrombocytopenia CMP without evidence of acute kidney injury, significant electrolyte abnormality, anion gap to suggest end organ hypo-perfusion, no evidence of metabolic acidosis with a normal bicarbonate, no evidence of hepatobiliary obstructive pathology. High-sensitivity troponin is negative, no evidence of myocardial ischemia I have personally reviewed the patient's chest x-ray. Chest x-ray is unremarkable for pulmonary edema, pneumothorax, pneumonia or focal cardiopulmonary abnormality. EKG with normal sinus rhythm rate of 77, left axis deviation, normal intervals, no STEMI. Similar compared to EKG from October 21, 2024 Awaiting 2nd troponin. Given second visit, advanced age and multiple cardiovascular comorbidities patient will be admitted to PCU observation under Dr. Little for stress test and cardiology consultation The patient and/or family, caregivers express understanding. The patient and/or family, caregivers agrees with the plan. Shared decision making: I will have a discussion with the patient and or visitors regarding risk/benefits of further testing or admission. They will be made aware of of the risk/benefits inherent in this decision they will be given the opportunity to voice understanding. Total critical care time today provided was at least 0 minutes. This excludes separately billable procedures. Critical care time (if documented) is secondary to the patient having high probability of clinically significant/life threatening deterioration in the patient's condition which required my urgent intervention. Impression: 1. Chest pain 2. History of CAD 3. History of atrial fibrillation 4. Chronic anticoagulation Dispo: admit to PCU This note was generated with 3Scan dictation software. It may contain incorrect words, spelling, and punctuation that were not noted in review of the chart prior to signing. Lab Data Labs: Laboratory Results - last 24 hr 10/25/24 12:12 WBC 6.6 RBC 4.79 Hgb 14.2 Hct 43.7 MCV 91.2 MCH 29.6 MCHC 32.5 RDW Std Deviation 43.1 RDW Coeff of Cory 13.0 Plt Count 232 MPV 10.1 Immature Gran % (Auto) 0.500 Neut % (Auto) 77.1 H Lymph % (Auto) 13.1 L [place] % (Auto) 7.9 Eos % (Auto) 1.1 Baso % (Auto) 0.3 Absolute Neuts (auto) 5.1 Absolute Lymphs (auto) 0.86 Nucleated RBC % 0 Sodium 139 Potassium 4.2 Chloride 104 Carbon Dioxide 25.4 Anion Gap 10 BUN 16 Creatinine 0.52 L Estim Creat Clear Calc 57.78 Est GFR (MDRD) Non-Af 94 BUN/Creatinine Ratio 31.8 H Glucose 141 H Calcium 10.2 Total Bilirubin 0.78 AST 17 ALT 14 Alkaline Phosphatase 103 Troponin T High Sens 21 H Total Protein 6.0 Albumin 3.4 Globulin 2.7 Albumin/Globulin Ratio 1.2 Radiography Diagnostic Testing: Clinical Impression(s) from Imaging Studies Chest X-Ray 10/25/24 14:06 IMPRESSION: No significant change since last exam. Reading Location: [facility] Discharge Plan Triage Chief Complaint: Chest Pain ED Provider: Jaylen Jack Dx/Rx/DC Orders Prescriptions: No Action nitroglycerin 0.4 mg tablet, sublingual 0.4 mg SUBLINGUAL Q5M PRN (Reason: Chest Pain) Qty: 25 2RF Patient Comments: chest pain carvedilol 25 mg tablet 25 mg PO BID Qty: 180 3RF Rx Instructions: must administer with a meal/food lisinopril 20 mg tablet 20 mg PO QHS Qty: 90 4RF aspirin 81 MG tablet,chewable 81 mg PO QHS Patient Comments: [facility] levothyroxine 75 mcg tablet 75 mcg PO DAILY potassium gluconate 595 mg (99 mg) tablet 595 mg PO DAILY atorvastatin 40 mg tablet 40 mg PO QHS Qty: 90 3RF omeprazole 20 mg capsule,delayed release(DR/EC) 20 mg PO DAILY Qty: 90 3RF Eliquis 5 mg tablet 5 mg PO BID Qty: 60 11RF diltiazem HCl [Tiadylt ER] 120 mg capsule,extended release 24 hr 120 mg PO QAM Qty: 30 3RF Primary Care Provider: Brayan Thompson Referrals: Care Physician,No Primary [Non-Staff] - Print Language: Lithuanian
--- NOTE | 2024-10-25 14:06 | RAD_ITS ---
PROCEDURE: CHEST 1 VIEW (PORTABLE) 10/25/2024 REASON FOR EXAM: CP TECHNIQUE: Frontal view of the chest. COMPARISON: Prior study dated October 21, 2024. FINDINGS: Hardware: EKG electrodes are seen. Heart: The heart is nonenlarged. Tortuosity of the descending thoracic aorta. Lungs: The lungs are clear. Bones: Degenerative changes are identified within the thoracic spine. Other: Stable elevation of the left hemidiaphragm. RAD/Chest 1 View (Portable) IMPRESSION: No significant change since last exam. Reading Location: [id number]
[2024-10-25 14:11] LABS: Hematocrit 43.7 % (37-47); Hemoglobin 14.2 g/dL (12.0-15.0); Immature Granulocytes Count 0.030 X10^3/uL (0.0-0.0); Mean Corp Hgb Conc 32.5 g/dL (32-36); Mean Corpuscular Volume 91.2 fL (81-99); Mean Platelet Vol. 10.1 fl (6.2-12.0); NRBC Flagged by Analyzer 0 % (0-5); Platelet Count 232 K/mm3 (150-450); RBC Distribution Width CV 13.0 % (11.6-14.6); RBC Distribution Width SD 43.1 fl (35.1-43.9); Red Blood Count 4.79 M/mm3 (4.2-5.4); White Blood Count 6.6 K/mm3 (4.4-11.0)
[2024-10-25 14:47] LABS: AST(SGOT) 17 U/L (<=31); Alanine Aminotransfer ALT/SGPT 14 U/L (<=34); Albumin, Serum 3.4 g/dL (3.4-4.8); Alkaline Phosphatase 103 U/L (35-104); Anion Gap 10 (5-15); BUN 16 mg/dL (4-19); BUN/Creat Ratio 31.8 RATIO (10-20); Calcium,Total 10.2 mg/dL (7.6-11.0); Carbon Dioxide 25.4 mmol/L (21.0-32.0); Chloride 104 mmol/L (98-108); Estimated Creatinine Clearance 57.78 ml/min (50-250); Globulin 2.7 g/dL (2.2-4.2); Glucose 141 mg/dL (70-99); Potassium 4.2 mmol/L (3.3-5.1); Troponin T High Sensitivity 21 ng/L (<=14)
[2024-10-25 16:27] LABS: Troponin T High Sens 2 HR 15 ng/L (<=14)
--- NOTE | 2024-10-25 17:17 | PCM.HP.STD ---
HPI - General General Date of Admission: 10/25/24 Date of Service: 10/25/24 Chief Complaint: Chest pain HPI Narrative AYAN CARRILLO, is a 79-year-old female history of hypothyroidism, hypertension, A-fib, GERD presented [facility] ED 10/25/2024 due to chest pressure and tightness. She was here several days ago for similar symptoms but ultimately was discharged home in stable condition. This morning she ate and then developed chest pressure and tightness, it is not exertional and did not improve with nitro. No shortness of breath or other acute complaints. In the ED patient afebrile, heart rate of 83 and blood pressure 119/84, respiratory rate 16 and pulse ox 94% on room air. CBC with normal white count and hemoglobin, troponin of 21 with repeat of 15. CMP with a BUN of 16 creatinine 0.52, glucose 141. Chest x-ray no significant change from prior. Given patient's recurrent episode of chest pain cardiology contacted and recommended admission for stress test and to hold Eliquis in the event she needs a heart cath. Hospitalist contacted for admission. Patient evaluated bedside with daughter present. Patient fairly poor historian but sounds as though on Thursday she had an episode for about an hour where she had chest and back pain and also felt like her heart was racing which resolved on its own, today had the chest pressure and tightness after eating and noted some dizziness but daughter reports she frequently gets dizzy when she takes her medications though they have been trying to increase her protein intake as this seems to help. Patient additionally said on Thursday she had what seemed to be some blood in her urine and has also been complaining of black tarry stools over the past 2 to 3 weeks though over the weekend they seemed to be improving, denies any shortness of breath or cough, no fevers or chills, denies burning on urination, no nausea, no abdominal pain. Does have some swelling in her legs but notes that happens when she has not moved around much [facility] Medical History (Updated 10/25/24 @ 16:16 by Mindy Guadalupe) Atherosclerotic heart disease of [place] coronary artery without angina pectoris Atrial fibrillation Essential (primary) hypertension GERD (gastroesophageal reflux disease) GERD (gastroesophageal reflux disease) GI bleed Hyperlipidemia Hypertension Hypothyroidism Morbid obesity with BMI of 40.0-44.9, adult Myocardial infarction Obesity Osteoarthritis Home Medications ?Medication ?Instructions ?Recorded ?Last Taken ?Type aspirin 81 mg chewable tablet 81 mg PO QHS 10/25/15 10/24/24 History nitroglycerin 0.4 mg sublingual 0.4 mg sublingual Q5M PRN Chest 08/10/23 10/25/24 Rx tablet Pain #25 tabs atorvastatin 40 mg tablet 40 mg PO QHS #90 tabs 08/01/24 10/24/24 Rx omeprazole 20 mg capsule,delayed 20 mg PO DAILY #90 caps 08/01/24 10/25/24 Rx release carvedilol 25 mg tablet 25 mg PO BID Dose has been 08/15/24 10/25/24 Rx increased #180 tabs lisinopril 20 mg tablet 20 mg PO QHS #90 tabs 08/15/24 10/24/24 Rx apixaban 5 mg tablet (Eliquis) 5 mg PO BID #60 tabs 09/29/24 10/25/24 Rx diltiazem HCl 120 mg capsule,24 120 mg PO QAM #30 caps 10/14/24 10/25/24 Rx hr,extended release (Tiadylt ER) levothyroxine 75 mcg tablet 75 mcg PO DAILY 10/25/24 10/25/24 History potassium gluconate 595 mg (99 mg) 595 mg PO DAILY 10/25/24 10/25/24 History tablet Allergy/AdvReac Type Severity Reaction Status Date / Time hydrochlorothiazide AdvReac Intermediate Constipatio Verified 10/25/24 12:08 n Family History Father CAD (coronary artery disease) Mother CHF (congestive heart failure) Sister Hypertension Surgical History (Updated 10/25/24 @ 16:16 by Mindy Guadalupe) History of appendectomy History of cholecystectomy History of coronary angioplasty (09/20/07) History of laparoscopic cholecystectomy History of left heart catheterization (06/04/08) History of total hysterectomy Social History (Updated 10/25/24 @ 12:06 by Annette Chacon) housing: house Smoking Status: Never smoker alcohol intake: never substance use type: does not use ROS ROS Narrative General: Denies fever/chills HENT: Denies headache, denies stuffy nose, denies sore throat EYES: Denies changes in vision Resp: Denies cough, denies shortness of breath Cardiac: Chest pressure and tightness resolved at present GI: Denies abdominal pain, had some dark tarry stools that are improving, denies nausea/vomiting : Had some blood in urine over the weekend per patient and daughter that is now clear Extremity: Reports some swelling in legs MSK: Some generalized weakness from not being able to get up and move around Neuro: Denies any numbness/tingling Heme: Does have some bruising from blood draws Skin: Denies rashes Psychiatric: No complaints voiced Vital Signs Vital Signs Vital Signs: 10/25/24 12:05 10/25/24 12:05 10/25/24 13:05 Temperature 97.8 F Temperature Source Oral Pulse Rate 83 80 Respiratory Rate 16 18 Respiratory Effort Normal Non-Labored Blood Pressure 119/84 H 127/80 H Blood Pressure Mean 95 95 Pulse Ox 94 99 Oxygen Delivery Method Room Air 10/25/24 14:03 10/25/24 15:00 10/25/24 16:00 Temperature Temperature Source Pulse Rate 80 66 66 Respiratory Rate 18 Respiratory Effort Blood Pressure 125/80 H 131/70 H 132/80 H Blood Pressure Mean 95 90 97 Pulse Ox 100 99 100 Oxygen Delivery Method 10/25/24 16:17 10/25/24 17:00 Temperature 98 F Temperature Source Pulse Rate 66 65 Respiratory Rate 18 Respiratory Effort Blood Pressure 132/80 H 128/70 H Blood Pressure Mean 97 89 Pulse Ox 100 100 Oxygen Delivery Method Weight Weight: 94.9 kg Body Mass Index (BMI) 42.3 Physical Exam Narrative General: Alert, somewhat poor historian, no apparent distress HEENT: Atraumatic, normocephalic Eyes: Anicteric, normal conjunctiva, extraocular movements grossly intact Neck: Supple Respiratory: Clear to auscultation bilaterally, normal respiratory effort Cardiovascular: Regular rate and rhythm GI: Soft, nontender, nondistended Extremities: Has some trace lower extremity pitting edema on top of nonpitting edema Musculoskeletal: Moving all extremities Neuro: No overt focal neurological deficits Skin: No rashes appreciated Psych: Cooperative Results Lab / Micro Data 10/25/24 12:12 10/25/24 12:12 Labs: Laboratory Results - last 24 hr 10/25/24 12:12: WBC 6.6, RBC 4.79, Hgb 14.2, Hct 43.7, MCV 91.2, MCH 29.6, MCHC 32.5, RDW Std Deviation 43.1, RDW Coeff of Cory 13.0, Plt Count 232, MPV 10.1, Immature Gran % (Auto) 0.500, Neut % (Auto) 77.1 H, Lymph % (Auto) 13.1 L, Camp % (Auto) 7.9, Eos % (Auto) 1.1, Baso % (Auto) 0.3, Absolute Neuts (auto) 5.1, Absolute Lymphs (auto) 0.86, Nucleated RBC % 0, Sodium 139, Potassium 4.2, Chloride 104, Carbon Dioxide 25.4, Anion Gap 10, BUN 16, Creatinine 0.52 L, Estim Creat Clear Calc 57.78, Est GFR (MDRD) Non-Af 94, BUN/Creatinine Ratio 31.8 H, Glucose 141 H, Calcium 10.2, Total Bilirubin 0.78, AST 17, ALT 14, Alkaline Phosphatase 103, Troponin T High Sens 21 H, Total Protein 6.0, Albumin 3.4, Globulin 2.7, Albumin/Globulin Ratio 1.2 10/25/24 15:08: Troponin T Hi Sens 2 Hr 15 H Imaging Radiology Impression Chest X-Ray 10/25/24 14:06 IMPRESSION: No significant change since last exam. Reading Location: [id number] Assessment & Plan Assessment/Plan (1) Chest pain: PLAN: Plan #Chest pain -Patient had 2 episodes 1 on Thursday and 1 today of a chest pressure and tightness -Does have history of coronary artery disease as well as hypertension hyperlipidemia -Trop 21 with repeat 15 -Admit to telemetry -Echo ordered -Aspirin -Statin -Lipid panel in AM -Stress test ordered for AM #Paroxysmal Atrial Fibrillation -Rate control: Diltiazem and Coreg -Anticoagulation: Holding Eliquis in the event patient needs cath #Dark stools and possible blood in urine - Patient denied any burning on urination or urinary frequency but noted some blood in her urine on Thursday that is since completely resolved -Also notes some dark tarry stools for 2 to 3 weeks and reports she is supposed to give a stool sample outpatient to assess for blood but has not been able to yet -Will order fecal occult especially she is going to need to be on any antiplatelets or anticoagulation -Continue PPI -Also order urine #Hx of CAD -w/ previous stenting, workup as above -Continue home medications, holding Eliquis #Hypertension - Continue home medications #Hypothyroidism -Continue Synthroid #GERD -Continue PPI #DVT ppx: SCDs Aranza Little MD Charges/Coding Visit Charges Inpatient E&M: 62591 Init Hosp L2
--- NOTE | 2024-10-25 17:54 | ECHOD_ITS ---
Reason For Study Reason For Study: Chest Pain Procedure This was a 2D Doppler, Color Flow transthoracic echocardiogram. Exam performed in department. Left Ventricle Normal left ventricle. The estimated ejection fraction is 55???60 %. Right Ventricle Normal right ventricle. Normal systolic function. Atria The left atrium is moderately enlarged. Mitral Valve The mitral valve is structurally normal. No prolapse or stenosis seen. Mild (1+) mitral valve insufficiency. Tricuspid Valve Normal tricuspid valve. Mild to moderate (1-2+) tricuspid valve insufficiency. Aortic Valve Trisinus/trileaflet aortic valve. Pulmonic Valve The pulmonic valve is not well visualized. Great Vessels The aortic root is not well visualized. Pericardium/Pleural No pericardial effusion. MMode/2D Measurements & Calculations LVIDd: 4.6 cm IVSd: 1.1 cm CO(Teich): 5.3 l/min LVIDs: 2.6 cm LVPWd: 1.1 cm RVDd: 4.4 cm FS: 44.0 % Ao root diam: 3.4 cm LAV(MOD-bp): 78.1 ml LVAd ap4: 30.6 cm2 LAV(MOD-bp) Indexed: 44.1 ml/m2 LVLd ap4: 7.8 cm LAV(MOD-sp2): 78.8 ml EDV(MOD-sp4): 96.4 ml LAV(MOD-sp4): 68.7 ml EDV(sp4-el): 101.5 ml LVAs ap4: 16.3 cm2 LVLs ap4: 6.6 cm ESV(MOD-sp4): 34.2 ml ESV(sp4-el): 33.9 ml EF(MOD-sp4): 64.5 % EF(sp4-el): 66.6 % CO(MOD-sp4): 4.4 l/min SV(sp4-el): 67.6 ml LA A4 area: 21.1 cm2 SV(MOD-sp4): 62.2 ml SI(MOD-sp4): 35.1 ml/m2 LA dimension(2D): 4.5 cm RA A4 area: 19.1 cm2 TAPSE: 2.4 cm Time Measurements MV dec time: 0.20 sec Doppler Measurements & Calculations MV E max celestine: 118.3 cm/sec Lat Peak E' Celestine: 7.9 cm/sec Med Peak E' Celestine: 6.6 cm/sec MV A max celestine: 119.6 cm/sec E/E' lat: 14.9 E/E' med: 18.0 MV E/A: 0.99 MV V2 max: 163.1 cm/sec MV P1/2t max celestine: 165.0 cm/sec Ao V2 max: 169.9 cm/sec MV max P.6 mmHg MV P1/2t: 76.4 msec Ao max P.6 mmHg MV V2 mean: 85.4 cm/sec Ao V2 mean: 108.9 cm/sec MV mean P.6 mmHg MV dec slope: 632.2 cm/sec2 Ao mean P.5 mmHg MV V2 VTI: 45.5 cm MVA(P1/2t): 2.9 cm2 Ao V2 VTI: 35.9 cm AV (velocity ratio): 0.68 LV V1 max: 124.3 cm/sec MR max celestine: 620.1 cm/sec TR max celestine: 288.4 cm/sec LV V1 max P.2 mmHg MR max P.0 mmHg TR max P.2 mmHg LV V1 mean P.0 mmHg LV V1 mean: 81.2 cm/sec LV V1 VTI: 24.6 cm ECHO/Echo Complete Interpretation Summary The estimated ejection fraction is 55???60 %. Stage I diastolic dysfunction Mild MR Mild to moderate TR No pericardial effusion. No significant change from previous echocardiogram. Ordering Physician: Aranza Little Performed By: Ahmet Fish RCS
--- NOTE | 2024-10-25 20:28 | EKG12_ITS ---
Test Reason : CP Blood Pressure : */* mmHG Vent. Rate : 77 BPM Atrial Rate : 77 BPM P-R Int : 126 ms QRS Dur : 98 ms QT Int : 382 ms P-R-T Axes : 38 -25 12 degrees QTcB Int : 432 ms Normal sinus rhythm Minimal voltage criteria for LVH, may be normal variant ( R in aVL ) Anteroseptal infarct , age undetermined Abnormal ECG Confirmed by FRANKO CHIU ([id number]), acquisitions editor KIRSTIN ARAIZA ([id number]) on 10/26/2024 1:54:17 PM Referred By: KEYONA/JORGE Confirmed By: FRANKO CHIU
[2024-10-25 20:38] LABS: Troponin T High Sens 4 HR 18 ng/L (<=14)
--- OUTSIDE RECORDS SUMMARY | 2024-10-25 21:17 | XMS RPT_ITS | CCD ---
Author Organization [facility] CliniSyid Care Team Providers Care Bridge Game Director Name Role Phone Kimber KELSEY, Vivien Quintana Unavailable Kale Ansari NP Unavailable DeFinis, Harumi Y Unavailable Unavailable DeFinis, Harumi Y Unavailable Unavailable DeFinis, Harumi Y Unavailable Unavailable DeFinis, Harumi Y Unavailable Unavailable DeFinis, Harumi Y Unavailable Unavailable DeFinis, Harumi Y Unavailable Unavailable MD Davis Cyril S Unavailable DeFinis, Harumi Y Unavailable Unavailable DeFinis, Harumi Y Unavailable Unavailable DeFinis, Harumi Y Unavailable Unavailable Coty CROCHET BEADER, Kale Kendall Unavailable Dr. Lilly Fletcher Primary Care Provider Dr. Lilly Fletcher Referring Provider Sanjay TORRES, CROCHET BEADER-C Ginger Attending Provider Sanjay TORRES, CROCHET BEADER-C Ginger Referring Provider Sanjay TORRES, CROCHET BEADER-C Ginger Other Provider Dr. Elie Davis Attending [...] Dr. Lilly Fletcher Referring Provider Sanjay TORRES, CROCHET BEADER-C Ginger Attending Provider PEDRITO Hay Attending Provider [phone] Justine OHARA, Dr. Lilly Barnes Primary Care Provider Reginaldo OHARA, Dr. Thompson Referring Provider Reginaldo OHARA, Dr. Thompson Emergency Provider Reginaldo OHARA, Dr. Thompson Attending Provider Dr. Jaylen Jack DO Emergency Provider Guero ZHOU, Dr. York Attending Provider Justine OHARA, Dr. Lilly Barnes Referring Provider Coty CROCHET BEADER-C, Kale Kendall Attending Provider Dr. Donovan Pierson DO Emergency Provider Roof CROCHET BEADER-C, Kale H Referring Provider Dr. Donovan Pierson DO Attending Provider Care Physician, No Primary Primary Care Provider Unavailable Care Physician, No Primary Referring Provider Un available Ginger Carter Attending Provider [phone] Justine OHARA, Dr. Lilly Barnes Primary Care Provider Roof CROCHET BEADER, Kale H Referring Unavailable Roof CROCHET BEADER, Kale H Attending Unavailable Care Physician, No Primary Primary Care Unava ilable Jalyen Jack Attending Unavailable Jolliff, Lilly S Primary Care Unavailable Jolliff, Lilly S Primary Care Unavailable SchwigerDonovan Attending Unavailable Donovan Pierson Attending Unavailable Care Physician, No Primary Primary Care Unava ilable Jay Hair Attending Unavailable Jay Hair Referring Unavailable Jolliff, Lilly S Primary Care Unavailable Roof CROCHET BEADER, Kale H Referring Unavailable Jolliff, Lilly S Primary Care Unavailable Roof CROCHET BEADER, Kale H Attending Unavailable Roof CROCHET BEADER, Kale H Referring Unavailable Roof CROCHET BEADER, Kale H Attending Unavailable Care Physician, No Primary Primary Care Unava ilable Jolliff, Lilly S Referring Unavailable Jolliff, Lilly S Primary Care Unavailable Roof CROCHET BEADER, Kale H Attending Unavailable Sanjay TORRES, Ginger Attending Unavailable Care Physician, No Primary Primary Care Unava ilable Care Physician, No Primary Referring Unava ilable Justine Lilly S Primary Care Unavailable Justine Lilly S Referring Unavailable Coty CROCHET BEADER, Kale Kendall Attending Unavailable Coty CROCHET BEADER, Kale Kendall Referring Unavailable Lilly Fletcher S Primary Care Unavailable Roof CROCHET BEADER, Kale Kendall Attending Unavailable Donna OHARA, Dr. Schmidt Primary Care Provider Sidney OHARA, Dr. Cobian Admit Provider Sidney OHARA, Dr. Cobian Attending Provider [phone] Allergies Allergy Classification Reported Allergen(s) Allergy Type Date of Onset Reaction(s) Facility (13 sources) hydroCHLOROthiazide Drug Allergy 12-18-19 Drug-induced constipation with proper administration [facility] Comment on above: and urinary incontin ence (1 source) hydroCHLOROthiazide Drug Allergy 10-22-19 [facility] Repository Medications Current Medications Medication Drug Class(es) Dates Sig (Normalized) Sig (Original) apixaban 5 mg oral tablet (4 sources) Factor Xa Inhibitor Start: 09-29-2024 take 1 tablet by mouth twice daily Apixaban (Eliquis) 5 mg tablet Active 5 mg PO TWICE A DAY 60 September 29, 2024 12:00am aspirin 81 mg chewable tablet (20 sources) Nonsteroidal Anti-inflammatory Drug Start: 10-25-2015 take 1 tablet by mouth at bedtime Aspirin 81 MG tablet,chewable Active 81 mg PO AT BEDTIME October 25, 2015 12:00am Start: 09-16-2010 take 1 tablet by diomedes th once daily ASPIRIN 81 MG TABS One tablet by mouth daily Enteric Coated ASPIRIN [id number] Polly Mustafa Start: 09-16-2010 take 1 tablet by diomedes th once daily ASPIRIN 81 MG TABS One tablet by mouth daily Enteric Coated ASPIRIN [id number] Polly M Moon Start: 09-16-2010 take 1 tablet by diomedes th once daily ASPIRIN EC 81 MG TBEC One tablet by mouth daily ASPIRIN [id number] Nella Valerio 24 hr dilTIAZem hydrochloride 120 mg extended release oral capsule (3 sources) Calcium Channel Sarmad Start: 10-14-2024 take 1 capsule by mouth once daily in the morning, then take 1 capsule by mouth every twenty-four hours Diltiazem Hcl (Tiadylt Er) 120 mg capsule,extended release 24 hr Active 120 mg PO EVERY MORNING 30 October 14, 2024 12:00am levothyroxine sodium 0.075 mg oral tablet (5 sources) l-Thyroxine Start: 10-25-2024 take 1 tablet by mouth once daily Levothyroxine 75 mcg tablet Active 75 ug PO DAILY October 25, 2024 12:00am Start: 10-03-2024 End: 10-25-2024 take 1 capsule by mouth once daily Levothyroxine 75 mcg capsule Discontinued 75 ug PO daily 30 October 03, 2024 12:00am October 25, 2024 12:34pm potassium gluconate 2.5 meq oral tablet (20 sources) Start: 10-25-2024 take 1 tablet by mouth once daily Potassium Gluconate 595 mg (99 mg) tablet Active 595 mg PO DAILY October 25, 2024 12:00am Start: 09-09-2018 End: 09-09-2024 take 1 tablet by mouth once daily as needed Potassium Gluconate 595 mg (99 mg) tablet Discontinued 595 mg PO DAILY as needed for for low levels September 09, 2018 10:49am September 09, 2024 8:55pm Completed/Discontinued Medications Medication Drug Class(es) Dates Sig [...] A DAY 180 November 24, 2022 2:47pm Elizabeth 10th, 2024 10:01am Dose has been increased must administer [...] 12.5 mg PO TWICE A DAY 180 3 September 27, 2021 3:35pm October 31, 2021 11:17am must administer with a meal/food Start: 09-01-2017 End: 09-13-2018 take 1 tablet by mouth twice daily Carvedilol 6.25 mg tablet Discontinued 6.25 mg PO TWICE A DAY 180 3 December 07, 2017 12:59pm September 09, 2018 10:52am Start: 09-24-2016 take 1 tablet by diomedes twice daily COREG 3.125 MG TABS One tablet by mouth twice daily CARVEDILOL [id number] Kale Ansari NP Start: 09-24-2016 take 1 tablet by diomedes twice daily COREG 6.25 MG TABS One tablet by mouth twice daily CARVEDILOL [id number] Kale Ansari CROCHET BEADER cephalexin 500 mg oral capsule (10 sources) Cephalosporin Antibacterial Start: 03-25-2023 End: 04-04-2023 take 1 capsule by mouth every twelve hours Cephalexin 500 mg capsule Discontinued 500 mg PO Q12H 20 10 0 March 25, 2023 1:00am April 03, 2023 1:00am April 04, 2023 1:39am CLOBETASOL PROPIONATE (20 sources) Corticosteroid Start: 11-23-2015 End: 09-08-2016 TEMOVATE 0.05 % CREA as directed CLOBETASOL PROPIONATE [id number] Nella Valerio Start: 11-23-2015 End: 09-08-2016 TEMOVATE 0.05 % CREA as dire cted CLOBETASOL PROPIONATE [id number] Nella Valerio Start: 11-23-2015 TEMOVATE 0.05 % CREA as directed CLOBETASOL PROPIONATE [id number] Mary Prieto RN Start: 10-26-2015 End: 09-01-2017 [...] tablet Discontinued 40 mg PO DAILY 90 3 August 10, 2023 3:30pm August 31, 2023 1:33pm Start: 02-07-2022 End: 08-10-2023 take 1 tablet by mouth once daily Furosemide (Lasix) 20 mg tablet Discontinued 20 mg PO DAILY 90 3 January 15, 2023 1:39pm August 10, 2023 [...] TABS One tablet by mouth daily HYDROCHLOROTHIAZIDE [id number] Vivien Haynes PA-C ipratropium (20 sources) Anticholinergic [...] Prieto RN Start: 10-26-2015 End: 09-01-2017 Ipratropium [place] 1 SPRAY spray,non-aerosol Discontinued 2 NMA NASAL THREE TIMES A DAY 2 0 October 26, 2015 11:11am September 01, 2017 11:15am Start: 10-26-2015 End: 09-01-2017 Ipratropium [place] Disconti nued 2 SPRAY NASAL THREE TIMES A DAY 2 October 26, 2015 10:11am September 01, 2017 10:15am isosorbide (20 sources) Start: 03-25-2011 End: 08-13-2011 take 1 tablet by mouth once daily IMDUR 30 MG [id number] One tablet by mouth daily ISOSORBIDE MONONITRATE [id number] Sofie Cornejo RN Start: 03-25-2011 take 1 tablet by diomedes th once daily IMDUR 30 MG [id number] One tablet by mouth daily ISOSORBIDE MONONITRATE [id number] Yolanda Larose RN lisinopril 20 mg oral tablet (20 sources) Angiotensin Converting Enzyme Inhibitor Start: 09-15-2019 End: 08-15-2024 take 1 tablet by mouth twice daily Lisinopril 20 mg tablet Discontinued 20 mg PO TWICE A DAY 180 4 February 09, 2024 12:02pm August 15, 2024 [...] TABS One tablet by mouth daily LISINOPRIL [id number] Kale Ansari NP meloxicam 15 mg oral tablet (5 sources) Nonsteroidal Anti-inflammatory Drug Start: 09-09-2024 End: 10-25-2024 take 1 tablet by mouth once daily Meloxicam 15 mg tablet Discontinued 15 mg PO DAILY September 09, 2024 12:00am October 25, 2024 1:33pm MULTIPLE VITAMIN (14 sources) Start: 11-23-2015 take [...] Multivitamin With Folic Acid 1 TABLET tablet (9 sources) Start: 10-25-2015 End: 09-09-2018 take 1 tablet by mouth once daily Multivitamin With Folic Acid 1 TABLET tablet Discontinued 1 {tbl} PO DAILY October 25, 2015 12:00am September 09, 2018 10:48am niacin 500 mg oral tablet (20 sources) Nicotinic Acid Start: 09-16-2010 End: 09-12-2014 take 1 tablet by mouth once daily NIACIN 500 MG TABS One tablet by mouth daily NIACIN [id number] Susanne Jordan RN Start: 09-16-2010 End: 03-04-2012 take 1 tablet by mouth at bedtime NIASPAN 500 MG CR-TABS 1 tablet by mouth at bedtime with low fat snack NIACIN (ANTIHYPERLIPIDEMIC) [id number] Susanne Jordan RN nitroglycerin 0.4 mg sublingual [...] 5 min up to 3 X NITROGLYCERIN [id number] Elie Davis MD Start: 09-16-2010 NITROGLYCERIN 0.4 MG/HR PT24 1 tablet under tongue every 5 min up to 3 X NITROGLYCERIN [id number] Polly Mustafa omeprazole 20 mg delayed release oral capsule (20 sources) Proton Pump Inhibitor Start: 10-25-2015 End: 08-01-2024 take 1 capsule by mouth once daily Omeprazole 20 mg capsule,delayed release(DR/EC) Discontinued 20 mg PO DAILY 90 3 August 12, 2023 10:17am August 01, 2024 5:29pm Start: 03-04-2011 take 1 capsule by [facility] twice daily PRILOSEC 20 MG CPDR One capsule by mouth twice daily OMEPRAZOLE [id number] Elie Davis MD Start: 03-04-2011 take 1 capsule by mo uth twice daily PRILOSEC 20 MG CPDR One capsule by mouth twice daily OMEPRAZOLE [id number] Elie Davis MD Start: 09-16-2010 take 2 tablets by mo uth twice daily PRILOSEC 20 MG CPDR Two tablets by mouth twice daily OMEPRAZOLE [id number] Polly Pedro Moon Start: 09-16-2010 take 2 tablets by mo uth twice daily PRILOSEC 20 MG CPDR Two tablets by mouth twice daily OMEPRAZOLE [id number] Polly Pedro Moon sertraline 25 mg oral tablet (20 sources) Serotonin Reuptake Inhibitor Start: 10-26-2015 End: 09-01-2017 take 1 tablet by mouth once daily Sertraline 25 MG tablet Discontinued 25 mg PO DAILY 30 0 October 26, 2015 12:00am September 01, 2017 11:15am sucralfate 1000 mg oral tablet (16 sources) Aluminum Complex Start: 10-12-2021 End: 07-02-2022 take 1 tablet by mouth four times daily at bedtime Sucralfate (Carafate) 1 gram tablet Discontinued 1 g PO 4 TIMES DAILY 56 14 0 October 12, 2021 12:00am July 02, 2022 11:36am 1 g orally before each meal and at bedtime Problems Active Problems Problem Classification Problem Date Documented Da te Episodic/Chronic Cardiac dysrhythmias (9 sources) Paroxysmal atrial fibrillation; Translations: [Paroxysmal atrial fibrillation] Onset: 5 09-28-2024 Chronic Comment on above: Event monitor July/2024; Noted on event monit or in August 2024; Cardiac dysrhythmias (20 sources) Palpitations; Translations: [Palpitations] Onset: Episodic Conditions associated with dizziness or vertigo (20 sources) Dizziness; Translations: [Dizziness and giddiness] Onset: 5 08-15-2024 Episodic Coronary atherosclerosis and other heart disease (20 sources) Coronary atherosclerosis; Translations: [Coronary arteriosclerosis] Onset: 1 09-16-2010 Chronic Disorders of lipid metabolism (20 sources) Hyperlipidemia; Translations: [Hyperlipidemia, unspecified] Onset: 2 03-25-2011 Chronic E Codes: Fall (9 sources) Fall; Translations: [Unspecified fall, initial encounter] 06-18-2024 Episodic Esophageal disorders (20 sources) Gastroesophageal reflux disease; Translations: [Gastro-esophageal reflux disease without esophagitis] 10-31-2021 Chronic Essential hypertension (20 sources) Essential hypertension; Translations: [Essential (primary) hypertension] 09-08-2018 Chronic Gastrointestinal hemorrhage (1 source) Finding of appearance of stool; Translations: [Melena] 10-24-2024 Episodic Heart valve disorders (20 sources) Systolic murmur; Translations: [Cardiac murmur, unspecified] Onset: 3 12-07-2012 Episodic Hypertension with complications and secondary hypertension (20 sources) Essential (primary) hypertension; Translations: [Unspecified essential hypertension] Onset: 6 03-28-2015 Chronic Malaise and fatigue (18 sources) Fatigue; Translations: [Other fatigue] Onset: 5 07-24-2023 Episodic Nonspecific chest pain (20 sources) Precordial pain; Translations: [Chest pain] Onset: 1 09-16-2010 Episodic Occlusion or stenosis of precerebral arteries (2 sources) Occlusion and stenosis of left carotid artery; Translations: [Occlusion and stenosis of left carotid artery] Onset: 5 Chronic Other lower respiratory disease (20 sources) Dyspnea on exertion; Translations: [Other forms of dyspnea] 10-31-2021 Episodic Other lower respiratory disease (5 sources) Other forms of dyspnea; Translations: [Other respiratory abnormalities] Onset: 5 Episodic Other nutritional; endocrine; and metabolic disorders (17 sources) Body mass index 40+ - severely obese; Translations: [Morbid (severe) obesity due to excess calories] 09-08-2018 Chronic Unclassified (4 sources) Long-term drug therapy; Translations: [Other prison (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] Onset: 1 09-16-2010 Urinary tract infections (11 sources) Cystitis; Translations: [Cystitis, unspecified without hematuria] 03-26-2023 Episodic Past or Other Problems Problem Classification Problem Date Documented Da te Episodic/Chronic Coronary atherosclerosis and other heart disease (20 sources) Coronary angioplasty status; Translations: [Past history of procedure] Onset: 09-20-2007 09-16-2010 Episodic Comment on above: POBA-OM2 Other aftercare (10 sources) Other emt intermediate (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; Translations: [Other emt intermediate (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] Onset: 09-16-2010 09-16-2010 Episodic [...] of the circulatory system] 03-01-2014 Episodic Unclassified (9 sources) No traumatic injury 06-18-2024 Results Test Name Value Interpretation Reference Range Facility Absolute lymphocyte countOrd ered By: Jaylen Jack on 10-25-2024 Lymphocytes Auto (Unsp spec) [#/Vol] 0.86 10*3/uL 0.83-4.51 [facility] Absolute neutrophil countOrd ered By: Jaylen Jack on 10-25-2024 Neutrophils (Bld) [#/Vol] 5.1 10*3/uL 2.0-7.7 [facility] Anion gap in Serum or Plasma Ordered By: Jaylen Jack on 10-25-2024 Anion gap [Moles/Vol] 10 mmol/L 5-15 [facility] Automated lymphocyte count a s percentage of total leukocytesOrdered By: Jaylen Jack on 10-25-2024 Lymphocytes/100 WBC Auto (Unsp spec) 13.1 % Low 19-41 [facility] BUN/creatinine ratioOrdered By: Jaylen Jack on 10-25-2024 Urea nitrogen/Creatinine [Mass ratio] 31.8 mg/mg High 10-20 [facility] Basophil percentageOrdered B y: Jaylen Jack on 10-25-2024 Basophils/100 WBC (Bld) 0.3 % 0-1 [facility] Bilirubin, totalOrdered By: Jaylen Jack on 10-25-2024 Bilirubin [Mass/Vol] 0.78 mg/dL 0.00-1.30 [facility] Carbon dioxide, total [Moles /volume] in Central venous bloodOrdered By: Jaylen Jack on 10-25-2024 CO2 [Moles/Vol] 25.4 mmol/L 21.0-32.0 [facility] Chloride assayOrdered By: maryuri Jack on 10-25-2024 Chloride [Moles/Vol] 104 mmol/L 98-108 [facility] Eosinophil percentageOrdered By: Jaylen Jack on 10-25-2024 Eosinophils/100 WBC (Bld) 1.1 % 0-5 [facility] Erythrocyte distribution wid th ratioOrdered By: Jaylen Jack on 10-25-2024 Erythrocyte distribution width (RBC) [Ratio] 13.0 % 11.6-14.6 [facility] Erythrocyte distribution wid th standard deviationOrdered By: Jaylen Jack on 10-25-2024 Erythrocyte distribution width (RBC) [Ratio] 43.1 fl 35.1-43.9 [facility] Glomerular filtration rate ( GFR) estimation/1.73 sq m using serum, plasma, or whole bOrdered By: Jaylen Jack on 10-25-2024 GFR/1.73 sq M.predicted among non-blacks MDRD (S/P/Bld) [Vol rate/Area] 94 mL/min/{1.73_m2} >60 [facility] Comment on above: mL/min/1.73m2 CKD-EP I Creatinine Equation (2020) Hematocrit Auto (Bld) [Volum e fraction]Ordered By: Jaylen Jack on 10-25-2024 Hematocrit (Bld) [Volume fraction] 43.7 % 37-47 [facility] Hemoglobin measurementOrdere d By: Jaylen Jack on 10-25-2024 Hemoglobin (Bld) [Mass/Vol] 14.2 g/dL 12.0-15.0 [facility] Immature granulocytes/100 WB C Auto (Bld)Ordered By: Jaylen Jack on 10-25-2024 Immature granulocytes/100 WBC (Bld) 0.500 % 0.0-0.9 [facility] Comment on above: IG% - Immature Granu locytes (promyelocytes, myelocytes and metamyelocytes) > 1% indicates that a LEFT SHIFT is Present. Laboratory - Chemistry and C hemistry - challengeOrdered By: Jaylen Jack on 10-25-2024 AST [Catalytic activity/Vol] 17 U/L <32 [facility] MCV (mean corpuscular volume ) determinationOrdered By: Jaylen Jack on 10-25-2024 MCV (RBC) [Entitic vol] 91.2 fL 81-99 [facility] Mean corpuscular hemoglobin (MCH) determinationOrdered By: Jaylen Jack on 10-25-2024 MCH (RBC) [Entitic mass] 29.6 pg 27.0-32.0 [facility] Mean corpuscular hemoglobin concentration (MCHC) determinationOrdered By: Jaylen Jack on 10-25-2024 MCHC (RBC) [Mass/Vol] 32.5 g/dL 32-36 [facility] Mean platelet volume determi nationOrdered By: Jaylen Jack on 10-25-2024 Platelet mean volume (Bld) [Entitic vol] 10.1 fL 6.2-12.0 [facility] Monocyte percentageOrdered B y: Jaylen Jack on 10-25-2024 Monocytes/100 WBC (Bld) 7.9 % 0-10 [facility] Neutrophil percentageOrdered By: Jaylen Jack on 10-25-2024 Neutrophils/100 WBC (Bld) 77.1 % High 47-70 [facility] Nucleated red blood cell per centageOrdered By: Jaylen Jack on 10-25-2024 Nucleated RBC/100 WBC (Bld) [Ratio] 0 % 0-5 [facility] Platelet countOrdered By: Lincoln Jakc on 10-25-2024 Platelets (Bld) [#/Vol] 232 10*3/uL 150-450 [facility] Potassium measurement (mass/ volume)Ordered By: Jaylen Jack on 10-25-2024 Potassium (Unsp spec) [Mass/Vol] 4.2 mmol/L 3.3-5.1 [facility] RBC Auto (Bld) [#/Vol]Ordere d By: Jaylen Jack on 10-25-2024 RBC (Bld) [#/Vol] 4.79 10*6/uL 4.2-5.4 [facility] Serum creatinine measurement (mass/volume)Ordered By: Jaylen Jack on 10-25-2024 Creatinine [Mass/Vol] 0.52 mg/dL Low 0.70-1.20 [facility] Serum globulin measurementOr dered By: Jaylen Jack on 10-25-2024 Globulin (S) [Mass/Vol] 2.7 g/dL 2.2-4.2 [facility] Serum glucose measurement (m ass/volume)Ordered By: Jaylen Jack on 10-25-2024 Glucose [Mass/Vol] 141 mg/dL High 70-99 [facility] Serum or plasma alanine rajput otransferase (ALT) measurementOrdered By: Jaylen Jack on 10-25-2024 ALT [Catalytic activity/Vol] 14 U/L <35 [facility] Serum or plasma albumin aaron urement (mass/volume)Ordered By: Jaylen Jack on 10-25-2024 Albumin [Mass/Vol] 3.4 g/dL 3.4-4.8 [facility] Serum or plasma albumin/glob ulin mass ratioOrdered By: Jaylen Jack on 10-25-2024 Albumin/Globulin [Mass ratio] 1.2 {ratio} 0.9-2.4 [facility] Serum or plasma alkaline bernardo sphatase measurementOrdered By: Jaylen Jack on 10-25-2024 ALP [Catalytic activity/Vol] 103 U/L 35-104 [facility] Serum or plasma calcium aaron urement (mass/volume)Ordered By: Jaylen Jack on 10-25-2024 Calcium [Mass/Vol] 10.2 mg/dL 7.6-11.0 [facility] Serum or plasma urea nitroge n measurement (mass/volume)Ordered By: Jaylen Jack on 10-25-2024 Urea nitrogen [Mass/Vol] 16 mg/dL 4-19 [facility] Sodium levelOrdered By: Ramos Jack on 10-25-2024 Sodium [Moles/Vol] 139 mmol/L 133-145 [facility] Total proteinOrdered By: Olesya Jack on 10-25-2024 Protein [Mass/Vol] 6.0 g/dL 5.9-8.4 [facility] Troponin T.cardiac [Mass/vol ume] in Serum or Plasma by High sensitivity methodOrdered By: Jaylen Jack on 10-25-2024 Troponin T.cardiac High sensitivity method [Mass/Vol] 15 ng/L High <14 [facility] Comment on above: Hemolysis present, R esults could be affected. Troponin T.cardiac High sensitivity method [Mass/Vol] 21 ng/L High <14 [facility] White blood cell (WBC) count Ordered By: Jaylen Jack on 10-25-2024 WBC (Bld) [#/Vol] 6.6 10*3/uL 4.4-11.0 [facility] 12 Lead EKGon 10-21-2024 12 Lead EKG [facility] [address] [place] [address] 12 Lead EKG 10/21/24 0949 MR#: [id number] Acct: [id number] Name: AYAN CARRILLO Rep #: [id number] : 1945 79 From: Lupe Rodriguez MD Attending Dr: Status: DEP ER Ordering Dr: Donovan Pierson DO Date: 10/21/24 Location: ED Sex: F C Admitted: Test Reason : CP Blood Pressure : */* mmHG Vent. Rate : 66 BPM Atrial Rate : 66 BPM P-R Int : 144 ms QRS Dur : 106 ms QT Int : 404 ms P-R-T Axes : 19 -22 14 degrees QTcB Int : 423 ms Normal sinus rhythm Minimal voltage criteria for LVH, may be normal variant ( R in aVL ) Borderline ECG Confirmed by DARIEL OHARA, ANGÉLICA ([id number]), make up editor KIRSTIN ARAIZA ([id number]) on 10/24/2024 7:31:38 AM Referred By: PAT Confirmed By: ANGÉLICA RODRIGUEZ MD 10/24/24 0731 Date Lupe Rodriguez MD CC: Dr. Donovan Pierson, DO; No Primary Care Physician Signed Normal [facility] Absolute lymphocyte countOrd ered By: Donovan Pierson on 10-21-2024 Lymphocytes Auto (Unsp spec) [#/Vol] 0.94 10*3/uL 0.83-4.51 [facility] Absolute neutrophil countOrd ered By: Donovan Pierson on 10-21-2024 Neutrophils (Bld) [#/Vol] 5.0 10*3/uL 2.0-7.7 [facility] Anion gap in Serum or Plasma Ordered By: Donovan Pierson on 10-21-2024 Anion gap [Moles/Vol] 9 mmol/L 5-15 [facility] Automated lymphocyte count a s percentage of total leukocytesOrdered By: Donovan Pierson on 10-21-2024 Lymphocytes/100 WBC Auto (Unsp spec) 14.0 % Low 19-41 [facility] BUN/creatinine ratioOrdered By: Donovan Pierson on 10-21-2024 Urea nitrogen/Creatinine [Mass ratio] 34.9 mg/mg High 10-20 [facility] Basic Metabolic Profile (BMP )on 10-21-2024 BUN/CRE 34.9 RATIO High 10-20 [facility] Comment on above: Performed By: #### L 501.4021, L100.0100, L500.2500 #### [facility] [address] [place], [place], [id number] Calcium [Mass/Vol] 10.1 mg/dL Normal 7.6-11.0 [facility] Comment on above: Performed By: #### L 501.4021, L100.0100, L500.2500 #### [facility] [address] [place], [address] Chloride [Moles/Vol] 103 mmol/L Normal 98-108 [facility] Comment on above: Performed By: #### L 501.4021, L100.0100, L500.2500 #### [facility] [address] [place], [address] CO2 [Moles/Vol] 27.1 mmol/L Normal 21.0-32.0 [facility] Comment on above: Performed By: #### L 501.4021, L100.0100, L500.2500 #### [facility] [address] [place], [address] Creatinine [Mass/Vol] 0.44 mg/dL Low 0.70-1.20 [facility] Comment on above: Performed By: #### L 501.4021, L100.0100, L500.2500 #### [facility] [address] [place], [address] ECRCL 58.95 ml/min Normal 50-250 [facility] Comment on above: Performed By: #### L 501.4021, L100.0100, L500.2500 #### [facility] [address] [place], [address] GAP 9 Normal 5-15 [facility] Comment on above: Performed By: #### L 501.4021, L100.0100, L500.2500 #### [facility] [address] [place], [address] GFR/1.73 sq M.predicted among non-blacks MDRD (S/P/Bld) [Vol rate/Area] 98 mL/min/{1.73_m2} Normal >60 [facility] Comment on above: Result Comment: mL/m in/1.73m2 CKD-EPI Creatinine Equation (2020) Performed By: #### L 501.4021, L100.0100, L500.2500 #### [facility] [address] [place], [address] Glucose [Mass/Vol] 114 mg/dL High 70-99 [facility] Comment on above: Performed By: #### L 501.4021, L100.0100, L500.2500 #### [facility] [address] [place], [address] Potassium [Moles/Vol] 4.2 mmol/L Normal 3.3-5.1 [facility] Comment on above: Performed By: #### L 501.4021, L100.0100, L500.2500 #### [facility] [address] [place], [address] Sodium [Moles/Vol] 139 mmol/L Normal 133-145 [facility] Comment on above: Performed By: #### L 501.4021, L100.0100, L500.2500 #### [facility] [address] [place], [address] Urea nitrogen [Mass/Vol] 15 mg/dL Normal 4-19 [facility] Comment on above: Performed By: #### L 501.4021, L100.0100, L500.2500 #### [facility] [address] [place], [address] Basophil percentageOrdered B y: Donovan Pierson on 10-21-2024 Basophils/100 WBC (Bld) 0.4 % 0-1 [facility] CBC W/Diff, Automatedon 10-01 Absolute Lymph 0.94 X10 3/uL Normal 0.83-4.51 [facility] Comment on above: Performed By: #### L 501.4021, L100.0100, L500.2500 #### [facility] [address] [place], [address] Absolute Neut 5.0 X10 3/uL Normal 2.0-7.7 [facility] Comment on above: Performed By: #### L 501.4021, L100.0100, L500.2500 #### [facility] [address] [place], [address] Basophils/100 WBC (Bld) 0.4 % Normal 0-1 [facility] Comment on above: Performed By: #### L 501.4021, L100.0100, L500.2500 #### [facility] [address] [place], [address] Eosinophils/100 WBC (Bld) 1.2 % Normal 0-5 [facility] Comment on above: Performed By: #### L 501.4021, L100.0100, L500.2500 #### [facility] [address] [place], [address] Erythrocyte distribution width (RBC) [Ratio] 12.7 % Normal 11.6-14.6 [facility] Comment on above: Performed By: #### L 501.4021, L100.0100, L500.2500 #### [facility] [address] [place], [address] Hematocrit (Bld) [Volume fraction] 44.8 % Normal 37-47 [facility] Comment on above: Performed By: #### L 501.4021, L100.0100, L500.2500 #### [facility] [address] [place], [address] Hemoglobin (Bld) [Mass/Vol] 14.6 g/dL Normal 12.0-15.0 [facility] Comment on above: Performed By: #### L 501.4021, L100.0100, L500.2500 #### [facility] [address] [place], [address] IG% 0.300 Normal 0.0-0.9 [facility] Comment on above: Result Comment: IG% - Immature Granulocytes (promyelocytes, myelocytes and metamyelocytes) > 1% indicates that a LEFT SHIFT is Present. Performed By: #### L 501.4021, L100.0100, L500.2500 #### [facility] [address] [place], [address] Lymphocytes/100 WBC (Bld) 14.0 % Low 19-41 [facility] Comment on above: Performed By: #### L 501.4021, L100.0100, L500.2500 #### [facility] [address] [place], [address] MCH (RBC) [Entitic mass] 29.6 pg Normal 27.0-32.0 [facility] Comment on above: Performed By: #### L 501.4021, L100.0100, L500.2500 #### [facility] [address] [place], [address] MCHC (RBC) [Mass/Vol] 32.6 g/dL Normal 32-36 [facility] Comment on above: Performed By: #### L 501.4021, L100.0100, L500.2500 #### [facility] [address] [place], [address] MCV (RBC) [Entitic vol] 90.9 fL Normal 81-99 [facility] Comment on above: Performed By: #### L 501.4021, L100.0100, L500.2500 #### [facility] [address] [place], [address] Monocytes/100 WBC (Bld) 9.1 % Normal 0-10 [facility] Comment on above: Performed By: #### L 501.4021, L100.0100, L500.2500 #### [facility] [address] [place], [address] Neutrophils/100 WBC (Bld) 75.0 % High 47-70 [facility] Comment on above: Performed By: #### L 501.4021, L100.0100, L500.2500 #### [facility] [address] [place], [address] Nucleated RBC (Bld) [#/Vol] 0 10*3/uL Normal 0-5 [facility] Comment on above: Performed By: #### L 501.4021, L100.0100, L500.2500 #### [facility] [address] [place], [address] Platelet mean volume (Bld) [Entitic vol] 9.6 fL Normal 6.2-12.0 [facility] Comment on above: Performed By: #### L 501.4021, L100.0100, L500.2500 #### [facility] [address] [place], [address] Platelets (Bld) [#/Vol] 208 10*3/uL Normal 150-450 [facility] Comment on above: Performed By: #### L 501.4021, L100.0100, L500.2500 #### [facility] [address] [place], [address] RBC (Bld) [#/Vol] 4.93 10*6/uL Normal 4.2-5.4 [facility] Comment on above: Performed By: #### L 501.4021, L100.0100, L500.2500 #### [facility] [address] [place], [address] RDW SD 42.5 fl Normal 35.1-43.9 [facility] Comment on above: Performed By: #### L 501.4021, L100.0100, L500.2500 #### [facility] [address] [place], [address] WBC (Bld) [#/Vol] 6.7 10*3/uL Normal 4.4-11.0 [facility] Comment on above: Performed By: #### L 501.4021, L100.0100, L500.2500 #### [facility] [address] [place], [place], [address] Carbon dioxide, total [Moles /volume] in Central venous bloodOrdered By: Donovan Pierson on 10-21-2024 CO2 [Moles/Vol] 27.1 mmol/L 21.0-32.0 [facility] Chest 1 View (Portable)on Chest 1 View (Portable) [facility] Imaging Services [address] [place] [address] Chest 1 View (Portable) MR#: [id number] Acct: [id number] Name: AYAN CARRILLO Rep #: [id number] : 1945 F 79 From: Reynaldo Ngo PCP: Care Physician,No Primary Status: REG ER Study: Chest 1 View (Portable) Date of Exam: 10/21/24 Exam# [id number] Ordering Dr: Donovan Pierson DO PROCEDURE: CHEST 1 VIEW (PORTABLE) 10/21/2024 REASON FOR EXAM: CHEST PAIN TECHNIQUE: Frontal view of the chest. COMPARISON: AP chest of 09/09/2024 RAD/Chest 1 View (Portable) IMPRESSION: Right upper quadrant abdominal surgical clips are again seen. Mild left hemidiaphragm elevation is again noted. Lungs appear clear of acute disease. No pleural effusion or pneumothorax is noted. The cardiomediastinal silhouette is stable, without significant cardiomegaly identified. Generalized osteopenia is again present. No acute osseous change is seen, although sensitivity is reduced by the degree of osteopenia. Reading Location: [place] [address] CC: Dr. Donovan Pierson DO; No Primary Care Physician Rip Saw Operator: Signed Normal [facility] Chloride assayOrdered By: Joe Pierson on 10-21-2024 Chloride [Moles/Vol] 103 mmol/L 98-108 [facility] Emergency Department Summary on 10-21-2024 Emergency Department Summary [facility] Medical Records Department [address] [place] [address] Emergency Department Summary 10/21/24 MR#: [id number] Acct: [id number] Name: AYAN CARRILLO Rep #: [id number] : 1945 79 From: Donovan Pierson DO PCP: Care Physician,No Primary Status:DEP ER Location: ED HPI History of Present Illness Chief Complaint: Chest Pain Informant: patient Onset/Context/Timing Onset: Today Activity at onset: sudden Timing: Continuous Quality: Positive for Pressure and - (Racing) Location: Substernal Worsened By: Nothing Relieved By: Nothing Associated Symptoms: Positive for Dyspnea, Lightheadedness and Palpitations; Negative for Nausea, Vomiting, Diaphoresis, Cough, Fever or Acid Reflux Narrative Narrative: Patient presents with chest pain that began today. Patient states began suddenly. Patient states has been constant. Patient states she felt like her heart was racing this morning. Patient admits to some pressure in her chest. Patient states the pain is mainly over the substernal area. Patient states nothing makes it worse and nothing makes it better. Patient admits to some shortness of breath and lightheadedness. Patient denies any nausea or vomiting. Patient denies any fevers or chills. CVD Risk Factors: Positive for Hypertension and Hypercholesterolemia ; Negative for Diabetes, Family History 1' PE Risk Factors: Negative for Recent Travel/Surgery, Recent Immobilization, Prior DVT or PE, Cancer or OCP + Smoking + >/=35 PFSH PFSH Medical History Myocardial infarction Obesity Essential (primary) hypertension Atherosclerotic heart disease of [place] coronary artery without angina pectoris Hyperlipidemia GERD (gastroesophageal reflux disease) Osteoarthritis Morbid obesity with BMI of 40.0-44.9, adult Home Medications ???Medication ???Instructions ???Recorded ???Last Taken ???Type aspirin 81 mg chewable tablet 81 mg PO QHS 10/25/15 10/24/15 His tory nitroglycerin 0.4 mg sublingual 0.4 [...] mg PO DAILY 09/09/24 Unknown Hi story apixaban 5 mg tablet (Eliquis) 5 mg PO BID #60 tabs 09/29/24 Unkn own Rx levothyroxine 75 mcg capsule 75 mcg PO QDAY #30 caps 10/03/24 U nknown Rx diltiazem HCl 120 mg capsule,24 120 mg PO QAM #30 caps 10/14/24 Un known Rx hr,extended release (Tiadylt ER) Allergy/AdvReac Type Severity Reaction Status Date / Time hydrochlorothiazide AdvReac Intermediate Constipatio Verified 10/21/24 09:44 n Family History Father CAD (coronary artery [...] or change in vision ENT ENT ED: Reports rhinorrhea; Denies sore throat Cardiovascular Cardiovascular: Reports chest pain, palpitations and racing heartbeat Respiratory/Chest Respiratory/Chest: Reports dyspnea; Denies cough Gastrointestinal Gastrointestinal: Denies nausea or vomiting Genitourinary Genitourinary ED: Denies dysuria or hematuria Musculoskeletal Musculoskeletal: Reports back pain; Denies neck pain Integumentary Denies abscess or rash Neurologic Neurologic: Denies headache(s) or weakness Allergic/Immunologic Allergic/Immunologic ED: Denies mouth swelling or urticaria EXAM Physical Exam Const Vital Signs: 10/21/24 09:40 10/21/24 09:41 10/21/24 10:19 Temperature 98.5 F Temperature Source Oral Pulse Rate 77 Respiratory Rate 16 Respiratory Effort Normal Blood Pressure 156/70 H Blood Pressure Mean 98 Pulse Ox 96 95 Oxygen Delivery Method Room Air Room Air 10/21/24 10:46 10/21/24 11:00 10/21/24 12:15 Temperature Temperature Source Pulse Rate 70 66 65 Respiratory Rate 16 16 20 H Respiratory Effort Blood Pressure 152/95 H 153/94 H (more content not included)... Normal [facility] Eosinophil percentageOrdered By: Donovan Pierson on 10-21-2024 Eosinophils/100 WBC (Bld) 1.2 % 0-5 [facility] Erythrocyte distribution wid th ratioOrdered By: Donovan Pierson on 10-21-2024 Erythrocyte distribution width (RBC) [Ratio] 12.7 % 11.6-14.6 [facility] Erythrocyte distribution wid th standard deviationOrdered By: Donovan Pierson on 10-21-2024 Erythrocyte distribution width (RBC) [Ratio] 42.5 fl 35.1-43.9 [facility] Glomerular filtration rate ( GFR) estimation/1.73 sq m using serum, plasma, or whole bOrdered By: Donovan Pierson on 10-21-2024 GFR/1.73 sq M.predicted among non-blacks MDRD (S/P/Bld) [Vol rate/Area] 98 mL/min/{1.73_m2} >60 [facility] Comment on above: mL/min/1.73m2 CKD-EP I Creatinine Equation (2020) Hematocrit Auto (Bld) [Volum e fraction]Ordered By: Donovan Pierson on 10-21-2024 Hematocrit (Bld) [Volume fraction] 44.8 % 37-47 [facility] Hemoglobin measurementOrdere d By: Donovan Pierson on 10-21-2024 Hemoglobin (Bld) [Mass/Vol] 14.6 g/dL 12.0-15.0 [facility] Immature granulocytes/100 WB C Auto (Bld)Ordered By: Donovan Pierson on 10-21-2024 Immature granulocytes/100 WBC (Bld) 0.300 % 0.0-0.9 [facility] Comment on above: IG% - Immature Granu locytes (promyelocytes, myelocytes and metamyelocytes) > 1% indicates that a LEFT SHIFT is Present. L501.4021on 10-21-2024 Trop T High Sen 20 ng/L High <=14 [facility] Comment on above: Performed By: #### L 100.0100, L500.2500 #### [facility] [address] [place], [address] MCV (mean corpuscular volume ) determinationOrdered By: Donovan Pierson on 10-21-2024 MCV (RBC) [Entitic vol] 90.9 fL 81-99 [facility] Mean corpuscular hemoglobin (MCH) determinationOrdered By: Donovan Pierson on 10-21-2024 MCH (RBC) [Entitic mass] 29.6 pg 27.0-32.0 [facility] Mean corpuscular hemoglobin concentration (MCHC) determinationOrdered By: Donovan Pierson on 10-21-2024 MCHC (RBC) [Mass/Vol] 32.6 g/dL 32-36 [facility] Mean platelet volume determi nationOrdered By: Donovan Pierson on 10-21-2024 Platelet mean volume (Bld) [Entitic vol] 9.6 fL 6.2-12.0 [facility] Monocyte percentageOrdered B y: Donovan Pierson on 10-21-2024 Monocytes/100 WBC (Bld) 9.1 % 0-10 [facility] Neutrophil percentageOrdered By: Donovan Pierson on 10-21-2024 Neutrophils/100 WBC (Bld) 75.0 % High 47-70 [facility] Nucleated red blood cell per centageOrdered By: Donovan Pierson on 10-21-2024 Nucleated RBC/100 WBC (Bld) [Ratio] 0 % 0-5 [facility] Platelet countOrdered By: Joe Pierson on 10-21-2024 Platelets (Bld) [#/Vol] 208 10*3/uL 150-450 [facility] Potassium measurement (mass/ volume)Ordered By: Donovan Pierson on 10-21-2024 Potassium (Unsp spec) [Mass/Vol] 4.2 mmol/L 3.3-5.1 [facility] RBC Auto (Bld) [#/Vol]Ordere d By: Donovan Pierson on 10-21-2024 RBC (Bld) [#/Vol] 4.93 10*6/uL 4.2-5.4 [facility] Serum creatinine measurement (mass/volume)Ordered By: Donovan Pierson on 10-21-2024 Creatinine [Mass/Vol] 0.44 mg/dL Low 0.70-1.20 [facility] Serum glucose measurement (m ass/volume)Ordered By: Donovan Pierson on 10-21-2024 Glucose [Mass/Vol] 114 mg/dL High 70-99 [facility] Serum or plasma calcium aaron urement (mass/volume)Ordered By: Donovan Pierson on 10-21-2024 Calcium [Mass/Vol] 10.1 mg/dL 7.6-11.0 [facility] Serum or plasma urea nitroge n measurement (mass/volume)Ordered By: Donovan Pierson on 10-21-2024 Urea nitrogen [Mass/Vol] 15 mg/dL 4-19 [facility] Sodium levelOrdered By: Donovan Pierson on 10-21-2024 Sodium [Moles/Vol] 139 mmol/L 133-145 [facility] Troponin T HS 2 HRon 025 Trop T High Sen 19 ng/L High <=14 [facility] Comment on above: Performed By: #### L 100.0100, L500.2500 #### [facility] [address] [place], [place], [address] Troponin T HS 4 HRon 025 Trop T High Sen Normal <=14 [facility] Comment on above: Result Comment: JORGE ENT DISCHARGED Performed By: #### L 499.0043 #### [facility] [address] [place], [address] Troponin T.cardiac [Mass/vol ume] in Serum or Plasma by High sensitivity methodOrdered By: Donovan Pierson on 10-21-2024 Troponin T.cardiac High sensitivity method [Mass/Vol] 19 ng/L High <14 [facility] Troponin T.cardiac High sensitivity method [Mass/Vol] 20 ng/L High <14 [facility] Comment on above: Delta: 14 on White blood cell (WBC) count Ordered By: Donovan Pierson on 10-21-2024 WBC (Bld) [#/Vol] 6.7 10*3/uL 4.4-11.0 [facility] Bilirubin directOrdered By: Ginger Grace on 10-01-2024 Bilirubin.direct [Mass/Vol] 0.31 mg/dL High 0.00-0.30 [facility] Comment on above: Hemolysis present, R esults could be affected. Bilirubin, totalOrdered By: Ginger Grace on 10-01-2024 Bilirubin [Mass/Vol] 0.76 mg/dL 0.00-1.30 [facility] Calculated very low density lipoprotein (VLDL) cholesterol measurementOrdered By: Ginger Grace on 10-01-2024 Calculated very low density lipoprotein (VLDL) cholesterol measurement 22 mg/dL - [facility] LDL calc ser/plasOrdered By: Ginger Grace on 10-01-2024 Cholesterol in LDL [Mass/Vol] 41 mg/dL [facility] Comment on above: Bsxpyqxifu=090-068 m g/dL & Higher Irpj=716 mg/dL or greaterFriedwald Equation for LDL-C Laboratory - Chemistry and C hemistry - challengeOrdered By: Ginger Grace on 10-01-2024 AST [Catalytic activity/Vol] 21 U/L <32 [facility] Comment on above: Hemolysis present, R esults could be affected. Lipid Profileon 10-01-2024 CHOL:HDL 2.46 Normal [facility] Comment on above: Performed By: #### L 500.8879, L500.3400 #### [facility] [address] [place], [place], [id number] Cholesterol [Mass/Vol] 106 mg/dL Normal <=200 [facility] Comment on above: Result Comment: Chol esterol level, Desirable <200 mg/dL Borderline high cholesterol 200-239 mg/dL High cholesterol >=240 mg/dL Recommendations of the NCEP Adult Treatment Panel for the following risk-cutoff thresholds for the [place] population. Performed By: #### L 500.4100, L500.3400 #### [facility] [address] [place], [address] Cholesterol in HDL [Mass/Vol] 43 mg/dL Normal [facility] Comment on above: Result Comment: Taty onal Cholesterol Education Program (NCEP) guidelines: <40 mg/dL: Low HDL-cholesterol (major risk factor for CHD) >= 60 mg/dL: High HDL-cholesterol (negative risk factor for CHD) HDL-cholesterol is affected by a number of factors, e.g. smoking, exercise, hormones, sex and age. Performed By: #### L 500.4100, L500.3400 #### [facility] [address] [place], [address] Cholesterol in LDL [Mass/Vol] 41 mg/dL Normal [facility] Comment on above: Result Comment: Bord nuzpov=728-332 mg/dL Higher Tjbp=223 mg/dL or greater Friedwald Equation for LDL-C Performed By: #### L 500.4100, L500.3400 #### [facility] [address] [place], [address] Cholesterol in VLDL [Mass/Vol] 22 mg/dL Normal 5-40 [facility] Comment on above: Performed By: #### L 500.4100, L500.3400 #### [facility] [address] [place], [address] Triglyceride [Mass/Vol] 108 mg/dL Normal [facility] Comment on above: Result Comment: The drugs N-Acetylcysteine and Metamizole may falsely depress this assay. Normal range: <150 mg/dL Borderline High: 150-199 mg/dL High: 200-499 mg/dL Very High: >500 mg/dL Performed By: #### L 500.4100, L500.3400 #### [facility] [address] [place], [address] Liver Profileon 10-01-2024 Albumin [Mass/Vol] 3.4 g/dL Normal 3.4-4.8 [facility] Comment on above: Performed By: #### L 500.4100, L500.3400 #### [facility] [address] [place], [address] ALK PHOS 101 U/L Normal 35-104 [facility] Comment on above: Performed By: #### L 500.4100, L500.3400 #### [facility] [address] [place], [address] ALT [Catalytic activity/Vol] 18 U/L Normal <=34 [facility] Comment on above: Performed By: #### L 500.4100, L500.3400 #### [facility] [address] [place], [address] AST [Catalytic activity/Vol] 21 U/L Normal <=31 [facility] Comment on above: Result Comment: Hemo lysis present, Results??could be affected. ?? Performed By: #### L 500.4100, L500.3400 #### [facility] [address] [place], [address] Bilirubin [Mass/Vol] 0.76 mg/dL Normal 0.00-1.30 [facility] Comment on above: Performed By: #### L 500.4100, L500.3400 #### [facility] [address] [place], [address] Bilirubin.direct [Mass/Vol] 0.31 mg/dL High 0.00-0.30 [facility] Comment on above: Result Comment: Hemo lysis present, Results??could be affected. ?? Performed By: #### L 500.4100, L500.3400 #### [facility] [address] [place], [address] Globulin (S) [Mass/Vol] 2.8 g/dL Normal 2.2-4.2 [facility] Comment on above: Performed By: #### L 500.4100, L500.3400 #### [facility] [address] [place], [place], [id number] T PROT 6.2 g/dL Normal 5.9-8.4 [facility] Comment on above: Performed By: #### L 500.4100, L500.3400 #### [facility] [address] [place], [place], [address] Screening total cholesterol/ high density lipoprotein (HDL) cholesterol ratioOrdered By: Ginger Grace on 10-01-2024 Cholesterol.total/Choles terol in HDL [Mass ratio] 2.46 {ratio} [facility] Serum globulin measurementOr dered By: Ginger Grace on 10-01-2024 Globulin (S) [Mass/Vol] 2.8 g/dL 2.2-4.2 [facility] Serum or plasma alanine rajput otransferase (ALT) measurementOrdered By: Ginger Grace on 10-01-2024 ALT [Catalytic activity/Vol] 18 U/L <35 [facility] Serum or plasma albumin aaron urement (mass/volume)Ordered By: Ginger Grace on 10-01-2024 Albumin [Mass/Vol] 3.4 g/dL 3.4-4.8 [facility] Serum or plasma alkaline bernardo sphatase measurementOrdered By: Ginger Grace on 10-01-2024 ALP [Catalytic activity/Vol] 101 U/L 35-104 [facility] Serum or plasma cholesterol in HDL measurement (mass/volume)Ordered By: Ginger Grace on 10-01-2024 Cholesterol in HDL [Mass/Vol] 43 mg/dL >40 [facility] Comment on above: National Cholesterol Education Program (NCEP) guidelines:<40 mg/dL: Low HDL-cholesterol (major risk factor for CHD)>= 60 mg/dL: High HDL-cholesterol (negative risk factor for CHD)HDL-cholesterol is affected by a number of factors, e.g. smoking, exercise, hormones, sex and age. Serum or plasma cholesterol measurement (mass/volume)Ordered By: Ginger Grace on 10-01-2024 Cholesterol [Mass/Vol] 106 mg/dL <201 [facility] Comment on above: Cholesterol level, D esirable <200 mg/dLBorderline high cholesterol 200-239 mg/dLHigh cholesterol >=240 mg/dLRecommendations of the NCEP Adult Treatment Panel for the following risk-cutoff thresholds for the [place] population. TSH DL <= 0.005 mIU/L QnOrde red By: Kale Ansari on 10-01-2024 TSH Qn 0.011 uIU/mL Low 0.300-4.200 [facility] Thyroid Stim Hormone (TSH)on 10-01-2024 TSH 0.011 uIU/mL Low 0.300-4.200 [facility] Comment on above: Performed By: #### L 100.0100, L500.2500 #### [facility] [address] [place], [place], [id number] Total proteinOrdered By: Laron Grace on 10-01-2024 Protein [Mass/Vol] 6.2 g/dL 5.9-8.4 [facility] Triglycerides measurementOrd ered By: Ginger Grace on 10-01-2024 Triglyceride [Mass/Vol] 108 mg/dL <199 [facility] Comment on above: The drugs N-Acetylcy steine and Metamizole may falsely depress this assay. Normal range: <150 mg/dLBorderline High: 150-199 mg/dLHigh: 200-499 mg/dLVery High: >500 mg/dL L499.0043on 09-10-2024 Trop T High Sen Normal <=14 [facility] Comment on above: Result Comment: Canc elled via OM: Order cancelled - Patient discharged Performed By: #### L 100.0100, L500.2500 #### [facility] [address] [place], [place], [id number] Absolute lymphocyte countOrd ered By: Donovan Pierson on 09-09-2024 Lymphocytes Auto (Unsp spec) [#/Vol] 1.11 10*3/uL 0.83-4.51 [facility] Absolute neutrophil countOrd ered By: Donovan Pierson on 09-09-2024 Neutrophils (Bld) [#/Vol] 4.6 10*3/uL 2.0-7.7 [facility] Anion gap in Serum or Plasma Ordered By: Donovan Pierson on 09-09-2024 Anion gap [Moles/Vol] 8 mmol/L 5-15 [facility] Automated lymphocyte count a s percentage of total leukocytesOrdered By: Donovan Pierson on 09-09-2024 Lymphocytes/100 WBC Auto (Unsp spec) 17.2 % Low 19-41 [facility] BUN/creatinine ratioOrdered By: Donovan Pierson on 09-09-2024 Urea nitrogen/Creatinine [Mass ratio] 34.2 mg/mg High 10 [facility] Basic Metabolic Profile (BMP )on 09-09-2024 BUN/CRE 34.2 RATIO High 12-19 [facility] Comment on above: Performed By: #### L 503.7505, L500.2500 #### [facility] [address] [place], [address] Calcium [Mass/Vol] 10.4 mg/dL Normal 7.6-11.0 [facility] Comment on above: Performed By: #### L 503.7505, L500.2500 #### [facility] [address] [place], [address] Chloride [Moles/Vol] 103 mmol/L Normal 98-108 [facility] Comment on above: Performed By: #### L 503.7505, L500.2500 #### [facility] [address] [place], [address] CO2 [Moles/Vol] 27.5 mmol/L Normal 21.0-32.0 [facility] Comment on above: Performed By: #### L 503.7505, L500.2500 #### [facility] [address] [place], [address] Creatinine [Mass/Vol] 0.55 mg/dL Low 0.70-1.20 [facility] Comment on above: Performed By: #### L 503.7505, L500.2500 #### [facility] [address] [place], [address] ECRCL 58.92 ml/min Normal 50-250 [facility] Comment on above: Performed By: #### L 503.7505, L500.2500 #### [facility] [address] [place], [address] GAP 8 Normal 5-15 [facility] Comment on above: Performed By: #### L 503.7505, L500.2500 #### [facility] [address] [place], [address] GFR/1.73 sq M.predicted among non-blacks MDRD (S/P/Bld) [Vol rate/Area] 92 mL/min/{1.73_m2} Normal >60 [facility] Comment on above: Result Comment: mL/m in/1.73m2 CKD-EPI Creatinine Equation (2020) Performed By: #### L 503.7505, L500.2500 #### [facility] [address] [place], [address] Glucose [Mass/Vol] 120 mg/dL High 70-99 [facility] Comment on above: Performed By: #### L 503.7505, L500.2500 #### [facility] [address] [place], [address] Potassium [Moles/Vol] 4.6 mmol/L Normal 3.3-5.1 [facility] Comment on above: Performed By: #### L 503.7505, L500.2500 #### [facility] [address] [place], [address] Sodium [Moles/Vol] 139 mmol/L Normal 133-145 [facility] Comment on above: Performed By: #### L 503.7505, L500.2500 #### [facility] [address] [place], [address] Urea nitrogen [Mass/Vol] 19 mg/dL Normal 4-19 [facility] Comment on above: Performed By: #### L 503.7505, L500.2500 #### [facility] [address] [place], [address] Basophil percentageOrdered B y: Donovan Pierson on 09-09-2024 Basophils/100 WBC (Bld) 0.5 % 0-1 [facility] CBC W/Diff, Automatedon 08-30-2024 Absolute Lymph 1.11 X10 3/uL Normal 0.83-4.51 [facility] Comment on above: Performed By: #### L 100.0100, L500.2500 #### [facility] [address] [place], [address] Absolute Neut 4.6 X10 3/uL Normal 2.0-7.7 [facility] Comment on above: Performed By: #### L 100.0100, L500.2500 #### [facility] [address] [place], [address] Basophils/100 WBC (Bld) 0.5 % Normal 0-1 [facility] Comment on above: Performed By: #### L 100.0100, L500.2500 #### [facility] [address] [place], [address] Eosinophils/100 WBC (Bld) 1.2 % Normal 0-5 [facility] Comment on above: Performed By: #### L 100.0100, L500.2500 #### [facility] [address] [place], [address] Erythrocyte distribution width (RBC) [Ratio] 12.5 % Normal 11.6-14.6 [facility] Comment on above: Performed By: #### L 100.0100, L500.2500 #### [facility] [address] [place], [address] Hematocrit (Bld) [Volume fraction] 41.4 % Normal 37-47 [facility] Comment on above: Performed By: #### L 100.0100, L500.2500 #### [facility] [address] [place], [address] Hemoglobin (Bld) [Mass/Vol] 13.7 g/dL Normal 12.0-15.0 [facility] Comment on above: Performed By: #### L 100.0100, L500.2500 #### [facility] [address] [place], [address] IG% 0.600 Normal 0.0-0.9 [facility] Comment on above: Result Comment: IG% - Immature Granulocytes (promyelocytes, myelocytes and metamyelocytes) > 1% indicates that a LEFT SHIFT is Present. Performed By: #### L 100.0100, L500.2500 #### [facility] [address] [place], [address] Lymphocytes/100 WBC (Bld) 17.2 % Low 19-41 [facility] Comment on above: Performed By: #### L 100.0100, L500.2500 #### [facility] [address] [place], [address] MCH (RBC) [Entitic mass] 30.4 pg Normal 27.0-32.0 [facility] Comment on above: Performed By: #### L 100.0100, L500.2500 #### [facility] [address] [place], [address] MCHC (RBC) [Mass/Vol] 33.1 g/dL Normal 32-36 [facility] Comment on above: Performed By: #### L 100.0100, L500.2500 #### [facility] [address] [place], [address] MCV (RBC) [Entitic vol] 92.0 fL Normal 81-99 [facility] Comment on above: Performed By: #### L 100.0100, L500.2500 #### [facility] [address] [place], [address] Monocytes/100 WBC (Bld) 10.2 % High 0-10 [facility] Comment on above: Performed By: #### L 100.0100, L500.2500 #### [facility] [address] [place], [address] Neutrophils/100 WBC (Bld) 70.3 % High 47-70 [facility] Comment on above: Performed By: #### L 100.0100, L500.2500 #### [facility] [address] [place], [address] Nucleated RBC (Bld) [#/Vol] 0 10*3/uL Normal 0-5 [facility] Comment on above: Performed By: #### L 100.0100, L500.2500 #### [facility] [address] [place], [address] Platelet mean volume (Bld) [Entitic vol] 9.8 fL Normal 6.2-12.0 [facility] Comment on above: Performed By: #### L 100.0100, L500.2500 #### [facility] [address] [place], [address] Platelets (Bld) [#/Vol] 228 10*3/uL Normal 150-450 [facility] Comment on above: Performed By: #### L 100.0100, L500.2500 #### [facility] [address] [place], [address] RBC (Bld) [#/Vol] 4.50 10*6/uL Normal 4.2-5.4 [facility] Comment on above: Performed By: #### L 100.0100, L500.2500 #### [facility] [address] [place], [address] RDW SD 42.3 fl Normal 35.1-43.9 [facility] Comment on above: Performed By: #### L 100.0100, L500.2500 #### [facility] [address] [place], [address] WBC (Bld) [#/Vol] 6.5 10*3/uL Normal 4.4-11.0 [facility] Comment on above: Performed By: #### L 100.0100, L500.2500 #### [facility] [address] [facility] [place], [address] Carbon dioxide, total [Moles /volume] in Central venous bloodOrdered By: Donovan Pierson on 09-09-2024 CO2 [Moles/Vol] 27.5 mmol/L 21.0-32.0 [facility] Chest 1 View (Portable)on Chest 1 View (Portable) [facility] Imaging Services [address] [place] [address] Chest 1 View (Portable) MR#: [id number] Acct: [id number] Name: AYAN CARRILLO Rep #: [id number] : 1945 F 79 From: Theron Grider MD PCP: Dr. Lilly Fletcher MD Status: [facility] ER Study: Chest 1 View (Portable) Date of Exam: 09/09/24 Exam# [id number] Ordering Dr: Donovan Pierson DO PROCEDURE: CHEST 1 VIEW (PORTABLE) 09/09/2024 REASON FOR EXAM: CHEST PAIN TECHNIQUE: Frontal view of the chest. COMPARISON: Chest radiograph on 08/02/2024 FINDINGS: Hardware: There is a medical technologist chief overlying the mediastinum, new from prior. Heart: Cardiac and mediastinal contours are stable. Aortic atherosclerosis. Lungs: No focal consolidation or significant pleural effusion. Bones: Degenerative changes are identified within the thoracic spine. Surgical clips in the right upper quadrant of the abdomen. RAD/Chest 1 View (Portable) IMPRESSION: No acute cardiopulmonary abnormality. Reading Location: [id number] CC: Dr. Lilly Fletcher MD; Dr. Donovan Pierson DO Rip Saw Operator: Signed Normal [facility] Chloride assayOrdered By: Joe Pierson on 09-09-2024 Chloride [Moles/Vol] 103 mmol/L 98-108 [facility] Emergency Department Summary on 09-09-2024 Emergency Department Summary [facility] Medical Records Department [address] [place] [address] Emergency Department Summary 09/09/24 MR#: [id number] Acct: [id number] Name: AYAN CARRILLO Rep #: [id number] : 1945 79 From: Donovan Pierson DO [...] Essential (primary) hypertension Atherosclerotic heart disease of [place] coronary artery without angina pectoris Hyperlipidemia GERD (gastroesophageal reflux disease) Osteoarthritis Morbid obesity with BMI of 40.0-44.9, adult Home Medications ???Medication ???Instructions ???Recorded ???Last Taken ???Type aspirin 81 mg chewable tablet 81 mg PO QHS 10/25/15 10/24/15 His tory nitroglycerin 0.4 mg sublingual 0.4 [...] nourished and (more content not included)... Normal [facility] Eosinophil percentageOrdered By: Donovan Pierson on 09-09-2024 Eosinophils/100 WBC (Bld) 1.2 % 0-5 [facility] Erythrocyte distribution wid th ratioOrdered By: Donovan Pierson on 09-09-2024 Erythrocyte distribution width (RBC) [Ratio] 12.5 % 11.6-14.6 [facility] Erythrocyte distribution wid th standard deviationOrdered By: Donovan Pierson on 09-09-2024 Erythrocyte distribution width (RBC) [Ratio] 42.3 fl 35.1-43.9 [facility] Glomerular filtration rate ( GFR) estimation/1.73 sq m using serum, plasma, or whole bOrdered By: Donovan Pierson on 09-09-2024 GFR/1.73 sq M.predicted among non-blacks MDRD (S/P/Bld) [Vol rate/Area] 92 mL/min/{1.73_m2} >60 [facility] Comment on above: mL/min/1.73m2 CKD-EP I Creatinine Equation (2020) Hematocrit Auto (Bld) [Volum e fraction]Ordered By: Donovan Pierson on 09-09-2024 Hematocrit (Bld) [Volume fraction] 41.4 % 37-47 [facility] Hemoglobin measurementOrdere d By: Donovan Pierson on 09-09-2024 Hemoglobin (Bld) [Mass/Vol] 13.7 g/dL 12.0-15.0 [facility] Immature granulocytes/100 WB C Auto (Bld)Ordered By: Donovan Pierson on 09-09-2024 Immature granulocytes/100 WBC (Bld) 0.600 % 0.0-0.9 [facility] Comment on above: IG% - Immature Granu locytes (promyelocytes, myelocytes and metamyelocytes) > 1% indicates that a LEFT SHIFT is Present. L499.0042on 09-09-2024 Trop T High Sen 14 ng/L Normal <=14 [facility] Comment on above: Performed By: #### L 100.0100, L500.2500 #### [facility] [address] [place], [address] L501.4021on 09-09-2024 Trop T High Sen 14 ng/L Normal <=14 [facility] Comment on above: Performed By: #### L 100.0100, L500.2500 #### [facility] [address] [place], [address] L503.7505on 09-09-2024 Natriuretic peptide B (Bld) [Mass/Vol] 468 pg/mL Normal <=1800 [facility] Comment on above: Result Comment: Hear t Failure Unlikely: < 300 pg/mL Heart Failure Likely < 50 Years: > 450 pg/mL 50-75 Years: > 900 pg/mL >75 Years: > 1800 pg/mL Performed By: #### L 503.7505, L500.2500 #### [facility] [address] [place], [address] MCV (mean corpuscular volume ) determinationOrdered By: Donovan Pierson on 09-09-2024 MCV (RBC) [Entitic vol] 92.0 fL 81-99 [facility] Mean corpuscular hemoglobin (MCH) determinationOrdered By: Donovan Pierson on 09-09-2024 MCH (RBC) [Entitic mass] 30.4 pg 27.0-32.0 [facility] Mean corpuscular hemoglobin concentration (MCHC) determinationOrdered By: Donovan Pierson on 09-09-2024 MCHC (RBC) [Mass/Vol] 33.1 g/dL 32-36 [facility] Mean platelet volume determi nationOrdered By: Donovan Pierson on 09-09-2024 Platelet mean volume (Bld) [Entitic vol] 9.8 fL 6.2-12.0 [facility] Monocyte percentageOrdered B y: Donovan Pierson on 09-09-2024 Monocytes/100 WBC (Bld) 10.2 % High 0-10 [facility] Natriuretic peptide.B prohor len N-Terminal [Mass/volume] in Serum or PlasmaOrdered By: Donovan Pierson on 09-09-2024 Natriuretic peptide.B prohormone N-Terminal [Mass/Vol] 468 pg/mL <1800 [facility] Comment on above: Heart Failure Unlike ly: < 300 pg/mLHeart Failure Likely< 50 Years: > 450 pg/mL50-75 Years: > 900 pg/mL>75 Years: > 1800 pg/mL Neutrophil percentageOrdered By: Donovan Pierson on 09-09-2024 Neutrophils/100 WBC (Bld) 70.3 % High 47-70 [facility] Nucleated red blood cell per centageOrdered By: Donovan Pierson on 09-09-2024 Nucleated RBC/100 WBC (Bld) [Ratio] 0 % 0-5 [facility] Platelet countOrdered By: Joe Pierson on 09-09-2024 Platelets (Bld) [#/Vol] 228 10*3/uL 150-450 [facility] Potassium measurement (mass/ volume)Ordered By: Donovan Pierson on 09-09-2024 Potassium (Unsp spec) [Mass/Vol] 4.6 mmol/L 3.3-5.1 [facility] RBC Auto (Bld) [#/Vol]Ordere d By: Donovan Pierson on 09-09-2024 RBC (Bld) [#/Vol] 4.50 10*6/uL 4.2-5.4 [facility] Serum creatinine measurement (mass/volume)Ordered By: Donovan Pierson on 09-09-2024 Creatinine [Mass/Vol] 0.55 mg/dL Low 0.70-1.20 [facility] Serum glucose measurement (m ass/volume)Ordered By: Donovan Pierson on 09-09-2024 Glucose [Mass/Vol] 120 mg/dL High 70-99 [facility] Serum or plasma calcium aaron urement (mass/volume)Ordered By: Donovan Pierson on 09-09-2024 Calcium [Mass/Vol] 10.4 mg/dL 7.6-11.0 [facility] Serum or plasma urea nitroge n measurement (mass/volume)Ordered By: Donovan Pierson on 09-09-2024 Urea nitrogen [Mass/Vol] 19 mg/dL 4-19 [facility] Sodium levelOrdered By: Donovan Pierson on 09-09-2024 Sodium [Moles/Vol] 139 mmol/L 133-145 [facility] Troponin T.cardiac [Mass/vol ume] in Serum or Plasma by High sensitivity methodOrdered By: Donovan Pierson on 09-09-2024 Troponin T.cardiac High sensitivity method [Mass/Vol] 14 ng/L <14 [facility] Troponin T.cardiac High sensitivity method [Mass/Vol] 14 ng/L <14 [facility] Comment on above: Delta: 18 on 5-0350 White blood cell (WBC) count Ordered By: Donovan Pierson on 09-09-2024 WBC (Bld) [#/Vol] 6.5 10*3/uL 4.4-11.0 [facility] Cardiology Visit Reporton Cardiology Visit Report [facility] [address] [place] [address]. [address] [place] [address] OFFICE VISIT Date of Service: 09/05/24 MR#: [id number] Acct: [id number] Name: AYAN CARRILLO Rep #: [id number] : 1945 Provider: MONICA valerio Age/Sex: 79/F Location: [facility] Status: Signed HPI HPI History of [...] NIBP Intake Visit Reasons: 4-6 WK FU Swinging Cut Off Saw Operator Required: No Accompanied by: Granddaughter Is patient [...] you fallen in the past year?: Yes [employer] Medical History Myocardial infarction Obesity Essential (primary) hypertension Atherosclerotic heart disease of [place] coronary artery without angina pectoris Hyperlipidemia GERD [...] visual inspection (more content not included)... Normal [facility] Cardiology Visit Reporton Cardiology Visit Report [facility] [address] [place] [address] OFFICE VISIT Date of Service: 08/15/24 MR#: [id number] Acct: [id number] Name: AYAN CARRILLO Rep #: [id number] : 1945 Provider: MONICA valerio Age/Sex: 79/F Location: [facility] Status: Signed HPI HPI History of [...] Monitor Intake Visit Reasons: 6 M FU Swinging Cut Off Saw Operator Required: No Accompanied by: Granddaughter Is patient [...] Essential (primary) hypertension Atherosclerotic heart disease of [place] coronary artery without angina pectoris Hyperlipidemia GERD [...] Nose: external (more content not included)... Normal [facility] 12 Lead EKGon 08-02-2024 12 Lead EKG [facility] Cardiovascular Services [address] [place] [address] 12 Lead EKG 08/02/24 0504 MR#: [id number] Acct: [id number] Name: AYAN CARRILLO Rep #: [id number] : 1945 79 From: Lupe Rodriguez MD [...] : 436 ms Sinus rhythm with short DE Septal infarct , age undetermined Abnormal ECG Confirmed by DARIEL OHARA, ANGÉLICA ([id number]), make up editor MU CERVANTES ([id number]) on 08/08/2024 7:03:53 AM Referred By: Confirmed By: ANGÉLICA RODRIGUEZ MD 08/08/24 0703 Date Lupe Rodriguez MD CC: Dr. Lilly Fletcher MD; Dr. Jaylen Jack DO Signed Normal [facility] Absolute lymphocyte countOrd ered By: Jaylen Jack on 08-02-2024 Lymphocytes Auto (Unsp spec) [#/Vol] 1.11 10*3/uL 0.83-4.51 [facility] Absolute neutrophil countOrd ered By: Jaylen Jack on 08-02-2024 Neutrophils (Bld) [#/Vol] 4.9 10*3/uL 2.0-7.7 [facility] Anion gap in Serum or Plasma Ordered By: Jaylen Jack on 08-02-2024 Anion gap [Moles/Vol] 10 mmol/L 5-15 [facility] Automated lymphocyte count a s percentage of total leukocytesOrdered By: Jaylen Jack on 08-02-2024 Lymphocytes/100 WBC Auto (Unsp spec) 16.3 % Low 19-41 [facility] BUN/creatinine ratioOrdered By: Jaylen Jack on 08-02-2024 Urea nitrogen/Creatinine [Mass ratio] 38.1 mg/mg High 10-20 [facility] Basophil percentageOrdered B y: Jaylen Jack on 08-02-2024 Basophils/100 WBC (Bld) 0.4 % 0-1 [facility] Bilirubin Test strip Ql (U)O rdered By: Jaylen Jack on 08-02-2024 Bilirubin Ql (U) Negative Negative [facility] Bilirubin, totalOrdered By: Jaylen Jack on 08-02-2024 Bilirubin [Mass/Vol] 0.61 mg/dL 0.00-1.30 [facility] Brain/Head without Contrasto n 08-02-2024 Brain/Head without Contrast [facility] Imaging Services [address] [place], [place] [address] Brain/Head without Contrast MR#: [id number] Acct: [id number] Name: AYAN CARRILLO Rep #: [id number] : 1945 F 79 From: Kerivn correia MD PCP: Dr. Lilly Fletcher MD Status: REG ER Study: Brain/Head without Contrast Date of Exam: 05/24 Exam# [id number] Ordering Dr: Jaylen Jack DO PROCEDURE: BRAIN/HEAD [...] evidence for acute brain abnormality. Reading Location: [place] [address] CC: Dr. Lilly Fletcher MD; Dr. Jaylen Jack DO Rip Saw Operator: Signed Normal [facility] CBC W/Diff, Automatedon 06-0 -2024 Absolute Lymph 1.11 X10 3/uL Normal 0.83-4.51 [facility] Comment on above: Performed By: #### L 100.0100, L500.2500 #### [facility] [address] [facility] [place], [address] Absolute Neut 4.9 X10 3/uL Normal 2.0-7.7 [facility] Comment on above: Performed By: #### L 100.0100, L500.2500 #### [facility] [address] [place], [address] Basophils/100 WBC (Bld) 0.4 % Normal 0-1 [facility] Comment on above: Performed By: #### L 100.0100, L500.2500 #### [facility] [address] [place], [address] Eosinophils/100 WBC (Bld) 1.5 % Normal 0-5 [facility] Comment on above: Performed By: #### L 100.0100, L500.2500 #### [facility] [address] [place], [address] Erythrocyte distribution width (RBC) [Ratio] 12.6 % Normal 11.6-14.6 [facility] Comment on above: Performed By: #### L 100.0100, L500.2500 #### [facility] [address] [place], [address] Hematocrit (Bld) [Volume fraction] 42.2 % Normal 37-47 [facility] Comment on above: Performed By: #### L 100.0100, L500.2500 #### [facility] [address] [place], [address] Hemoglobin (Bld) [Mass/Vol] 13.8 g/dL Normal 12.0-15.0 [facility] Comment on above: Performed By: #### L 100.0100, L500.2500 #### [facility] [address] [place], [address] IG% 0.600 Normal 0.0-0.9 [facility] Comment on above: Result Comment: IG% - Immature Granulocytes (promyelocytes, myelocytes and metamyelocytes) > 1% indicates that a LEFT SHIFT is Present. Performed By: #### L 100.0100, L500.2500 #### [facility] [address] [place], [address] Lymphocytes/100 WBC (Bld) 16.3 % Low 19-41 [facility] Comment on above: Performed By: #### L 100.0100, L500.2500 #### [facility] [address] [place], [address] MCH (RBC) [Entitic mass] 30.7 pg Normal 27.0-32.0 [facility] Comment on above: Performed By: #### L 100.0100, L500.2500 #### [facility] [address] [facility] [place], [address] MCHC (RBC) [Mass/Vol] 32.7 g/dL Normal 32-36 [facility] Comment on above: Performed By: #### L 100.0100, L500.2500 #### [facility] [address] [place], [address] MCV (RBC) [Entitic vol] 93.8 fL Normal 81-99 [facility] Comment on above: Performed By: #### L 100.0100, L500.2500 #### [facility] [address] [place], [address] Monocytes/100 WBC (Bld) 9.1 % Normal 0-10 [facility] Comment on above: Performed By: #### L 100.0100, L500.2500 #### [facility] [address] [place], [address] Neutrophils/100 WBC (Bld) 72.1 % High 47-70 [facility] Comment on above: Performed By: #### L 100.0100, L500.2500 #### [facility] [address] [place], [address] Nucleated RBC (Bld) [#/Vol] 0 10*3/uL Normal 0-5 [facility] Comment on above: Performed By: #### L 100.0100, L500.2500 #### [facility] [address] [place], [address] Platelet mean volume (Bld) [Entitic vol] 10.0 fL Normal 6.2-12.0 [facility] Comment on above: Performed By: #### L 100.0100, L500.2500 #### [facility] [address] [place], [address] Platelets (Bld) [#/Vol] 201 10*3/uL Normal 150-450 [facility] Comment on above: Performed By: #### L 100.0100, L500.2500 #### [facility] [address] [place], [address] RBC (Bld) [#/Vol] 4.50 10*6/uL Normal 4.2-5.4 [facility] Comment on above: Performed By: #### L 100.0100, L500.2500 #### [facility] [address] [place], [address] RDW SD 43.5 fl Normal 35.1-43.9 [facility] Comment on above: Performed By: #### L 100.0100, L500.2500 #### [facility] [address] [place], [address] WBC (Bld) [#/Vol] 6.8 10*3/uL Normal 4.4-11.0 [facility] Comment on above: Performed By: #### L 100.0100, L500.2500 #### [facility] [address] [place], [address] Carbon dioxide, total [Moles /volume] in Central venous bloodOrdered By: Jaylen Jack on 08-02-2024 CO2 [Moles/Vol] 26.4 mmol/L 21.0-32.0 [facility] Chest 1 View (Portable)on Chest 1 View (Portable) [facility] Imaging Services [address] [place] [address] Chest 1 View (Portable) MR#: [id number] Acct: [id number] Name: AYAN CARRILLO Rep #: [id number] : 1945 F 79 From: Kervin correia MD PCP: Dr. Lilly Fletcher MD Status: [facility] ER Study: Chest 1 View (Portable) Date of Exam: 08/02/24 Exam# [id number] Ordering Dr: Jaylen Jack DO PROCEDURE: CHEST [...] bilateral basilar atelectatic pulmonary changes. Reading [facility] CC: Dr. Lilly Fletcher MD; Dr. Jaylen Jack DO Rip Saw Operator: Signed Normal [facility] Chloride assayOrdered By: Lincoln Jack on 08-02-2024 Chloride [Moles/Vol] 105 mmol/L 98-108 [facility] Comprehensive Metabolic Prof ilon 08-02-2024 Albumin [Mass/Vol] 3.6 g/dL Normal 3.4-4.8 [facility] Comment on above: Performed By: #### L 100.0100, L500.2500 #### [facility] [address] [place], [address] Albumin/Globulin [Mass ratio] 1.2 {ratio} Normal 0.9-2.4 [facility] Comment on above: Performed By: #### L 100.0100, L500.2500 #### [facility] [address] [place], [address] ALK PHOS 107 U/L High 35-104 [facility] Comment on above: Performed By: #### L 100.0100, L500.2500 #### [facility] [address] [place], [address] ALT [Catalytic activity/Vol] 13 U/L Normal <=34 [facility] Comment on above: Performed By: #### L 100.0100, L500.2500 #### [facility] [address] [place], [address] AST [Catalytic activity/Vol] 17 U/L Normal <=31 [facility] Comment on above: Performed By: #### L 100.0100, L500.2500 #### [facility] [address] [place], [address] Bilirubin [Mass/Vol] 0.61 mg/dL Normal 0.00-1.30 [facility] Comment on above: Performed By: #### L 100.0100, L500.2500 #### [facility] [address] [place], [address] BUN/CRE 38.1 RATIO High 10-20 [facility] Comment on above: Performed By: #### L 100.0100, L500.2500 #### [facility] [address] [place], [address] Calcium [Mass/Vol] 10.5 mg/dL Normal 7.6-11.0 [facility] Comment on above: Performed By: #### L 100.0100, L500.2500 #### [facility] [address] [place], [address] Chloride [Moles/Vol] 105 mmol/L Normal 98-108 [facility] Comment on above: Performed By: #### L 100.0100, L500.2500 #### [facility] [address] [place], [address] CO2 [Moles/Vol] 26.4 mmol/L Normal 21.0-32.0 [facility] Comment on above: Performed By: #### L 100.0100, L500.2500 #### [facility] [address] [place], [address] Creatinine [Mass/Vol] 0.60 mg/dL Low 0.70-1.20 [facility] Comment on above: Performed By: #### L 100.0100, L500.2500 #### [facility] [address] [place], [address] ECRCL 58.03 ml/min Normal 50-250 [facility] Comment on above: Performed By: #### L 100.0100, L500.2500 #### [facility] [address] [place], [address] GAP 10 Normal 5-15 [facility] Comment on above: Performed By: #### L 100.0100, L500.2500 #### [facility] [address] [place], [address] GFR/1.73 sq M.predicted among non-blacks MDRD (S/P/Bld) [Vol rate/Area] 91 mL/min/{1.73_m2} Normal >60 [facility] Comment on above: Result Comment: mL/m in/1.73m2 CKD-EPI Creatinine Equation (2020) Performed By: #### L 100.0100, L500.2500 #### [facility] [address] [place], [address] Globulin (S) [Mass/Vol] 2.9 g/dL Normal 2.2-4.2 [facility] Comment on above: Performed By: #### L 100.0100, L500.2500 #### [facility] [address] [place], [address] Glucose [Mass/Vol] 117 mg/dL High 70-99 [facility] Comment on above: Performed By: #### L 100.0100, L500.2500 #### [facility] [address] [place], [address] Potassium [Moles/Vol] 3.8 mmol/L Normal 3.3-5.1 [facility] Comment on above: Performed By: #### L 100.0100, L500.2500 #### [facility] [address] [place], [address] Sodium [Moles/Vol] 142 mmol/L Normal 133-145 [facility] Comment on above: Performed By: #### L 100.0100, L500.2500 #### [facility] [address] [place], [address] T PROT 6.5 g/dL Normal 5.9-8.4 [facility] Comment on above: Performed By: #### L 100.0100, L500.2500 #### [facility] [address] [place], [address] Urea nitrogen [Mass/Vol] 23 mg/dL High 4-19 [facility] Comment on above: Performed By: #### L 100.0100, L500.2500 #### [facility] [address] [place], [address] Emergency Department Summary on 08-02-2024 Emergency Department Summary [facility] Medical Records Department [address] [place] [address] Emergency Department Summary 08/02/24 MR#: [id number] Acct: [id number] Name: AYAN CARRILLO Rep #: [id number] : 1945 79 From: Jaylen Jack DO PCP: Dr. Lilly Fletcher MD Status:REG ER Location: ED HPI History of Present Illness Chief Complaint: Weakness [facility] Medical History (Updated 08/02/24 @ 06:[address] Jaylen Jack DO) Myocardial infarction Obesity Essential (primary) hypertension Atherosclerotic heart disease of [place] coronary artery without angina pectoris Hyperlipidemia GERD [...] Method Room Air Room Air Room Air [facility] Narrative Medical decision making narrative: HISTORY OF PRESENT ILLNESS: Chief complaint: Weakness, dizziness, lightheadedness Atrial female history of of CAD, MS status post stent, hypertension, hyperlipidemia presents with [...] DECISION MAKING: (more content not included)... Normal [facility] Eosinophil percentageOrdered By: Jaylen Jack on 08-02-2024 Eosinophils/100 WBC (Bld) 1.5 % 0-5 [facility] Erythrocyte distribution wid th ratioOrdered By: Jaylen Jack on 08-02-2024 Erythrocyte distribution width (RBC) [Ratio] 12.6 % 11.6-14.6 [facility] Erythrocyte distribution wid th standard deviationOrdered By: Jaylen Jack on 08-02-2024 Erythrocyte distribution width (RBC) [Ratio] 43.5 fl 35.1-43.9 [facility] Glomerular filtration rate ( GFR) estimation/1.73 sq m using serum, plasma, or whole bOrdered By: Jaylen Jack on 08-02-2024 GFR/1.73 sq M.predicted among non-blacks MDRD (S/P/Bld) [Vol rate/Area] 91 mL/min/{1.73_m2} >60 [facility] Comment on above: mL/min/1.73m2 CKD-EP I Creatinine Equation (2020) Hematocrit Auto (Bld) [Volum e fraction]Ordered By: Jaylen Jack on 08-02-2024 Hematocrit (Bld) [Volume fraction] 42.2 % 37-47 [facility] Hemoglobin measurementOrdere d By: Jaylen Jack on 08-02-2024 Hemoglobin (Bld) [Mass/Vol] 13.8 g/dL 12.0-15.0 [facility] Immature granulocytes/100 WB C Auto (Bld)Ordered By: Jaylen Jack on 08-02-2024 Immature granulocytes/100 WBC (Bld) 0.600 % 0.0-0.9 [facility] Comment on above: IG% - Immature Granu locytes (promyelocytes, myelocytes and metamyelocytes) > 1% indicates that a LEFT SHIFT is Present. Ketones Test strip Ql (U)Ord ered By: Jaylen Jack on 08-02-2024 Ketones Ql (U) Negative Negative [facility] L501.4021on 08-02-2024 Trop T High Sen 18 ng/L High <=14 [facility] Comment on above: Performed By: #### L 100.0100, L500.2500 #### [facility] [address] [place], [place], [id number] Laboratory - Chemistry and C hemistry - challengeOrdered By: Jaylen Jack on 08-02-2024 AST [Catalytic activity/Vol] 17 U/L <32 [facility] Lactic acid measurementOrder ed By: Jaylen Jack on 08-02-2024 Lactate [Moles/Vol] 1.2 mmol/L 0.0-2.0 [facility] Comment on above: Order Comment: Y Performed By: #### L 100.0100, L500.2500 #### [facility] [address] [place], [address] MCV (mean corpuscular volume ) determinationOrdered By: Jaylen Jack on 08-02-2024 MCV (RBC) [Entitic vol] 93.8 fL 81-99 [facility] Mean corpuscular hemoglobin (MCH) determinationOrdered By: Jaylen Jack on 08-02-2024 MCH (RBC) [Entitic mass] 30.7 pg 27.0-32.0 [facility] Mean corpuscular hemoglobin concentration (MCHC) determinationOrdered By: Jaylen Jack on 08-02-2024 MCHC (RBC) [Mass/Vol] 32.7 g/dL 32-36 [facility] Mean platelet volume determi nationOrdered By: Jaylen Jack on 08-02-2024 Platelet mean volume (Bld) [Entitic vol] 10.0 fL 6.2-12.0 [facility] Microscopic analysis of urin e for red blood cells (RBC)Ordered By: Jaylen Jack on 08-02-2024 Microscopic analysis of urine for red blood cells (RBC) 0 SEEN /hpf 0-5 [facility] Monocyte percentageOrdered B y: Jaylen Jack on 08-02-2024 Monocytes/100 WBC (Bld) 9.1 % 0-10 [facility] Mucus LM Ql (Urine sed)Order ed By: Jaylen Jack on 08-02-2024 Mucus Ql (Urine sed) 0 SEEN /hpf [facility] Neutrophil percentageOrdered By: Jaylen Jack on 08-02-2024 Neutrophils/100 WBC (Bld) 72.1 % High 47-70 [facility] Nitrite Test strip Ql (U)Ord ered By: Jaylen Jack on 08-02-2024 Nitrite Ql (U) Negative Negative [facility] Nucleated red blood cell per centageOrdered By: Jaylen Jack on 08-02-2024 Nucleated RBC/100 WBC (Bld) [Ratio] 0 % 0-5 [facility] Platelet countOrdered By: Lincoln Jack on 08-02-2024 Platelets (Bld) [#/Vol] 201 10*3/uL 150-450 [facility] Potassium measurement (mass/ volume)Ordered By: Jaylen Jack on 08-02-2024 Potassium (Unsp spec) [Mass/Vol] 3.8 mmol/L 3.3-5.1 [facility] Protein Test strip Ql (U)Ord ered By: Jaylen Jack on 08-02-2024 Protein Ql (U) 30 mg/dl High Negative [facility] RBC Auto (Bld) [#/Vol]Ordere d By: Jaylen Jack on 08-02-2024 RBC (Bld) [#/Vol] 4.50 10*6/uL 4.2-5.4 [facility] Serum creatinine measurement (mass/volume)Ordered By: Jaylen Jack on 08-02-2024 Creatinine [Mass/Vol] 0.60 mg/dL Low 0.70-1.20 [facility] Serum globulin measurementOr dered By: Jaylen Jack on 08-02-2024 Globulin (S) [Mass/Vol] 2.9 g/dL 2.2-4.2 [facility] Serum glucose measurement (m ass/volume)Ordered By: Jaylen Jack on 08-02-2024 Glucose [Mass/Vol] 117 mg/dL High 70-99 [facility] Serum or plasma alanine rajput otransferase (ALT) measurementOrdered By: Jaylen Jack on 08-02-2024 ALT [Catalytic activity/Vol] 13 U/L <35 [facility] Serum or plasma albumin aaron urement (mass/volume)Ordered By: Jaylen Jack on 08-02-2024 Albumin [Mass/Vol] 3.6 g/dL 3.4-4.8 [facility] Serum or plasma albumin/glob ulin mass ratioOrdered By: Jaylen Jack on 08-02-2024 Albumin/Globulin [Mass ratio] 1.2 {ratio} 0.9-2.4 [facility] Serum or plasma alkaline bernardo sphatase measurementOrdered By: Jaylen Jack on 08-02-2024 ALP [Catalytic activity/Vol] 107 U/L High 35-104 [facility] Serum or plasma calcium aaron urement (mass/volume)Ordered By: Jaylen Jack on 08-02-2024 Calcium [Mass/Vol] 10.5 mg/dL 7.6-11.0 [facility] Serum or plasma urea nitroge n measurement (mass/volume)Ordered By: Jaylen Jack on 08-02-2024 Urea nitrogen [Mass/Vol] 23 mg/dL High 4-19 [facility] Sodium levelOrdered By: Ramos Jack on 08-02-2024 Sodium [Moles/Vol] 142 mmol/L 133-145 [facility] Squamous epithelial cells de tection in urine sediment by light microscopyOrdered By: Jaylen Jack on 08-02-2024 Epithelial cells.squamous LM Ql (Urine sed) 0-5 SEEN /hpf - [facility] Total proteinOrdered By: Olesya Jack on 08-02-2024 Protein [Mass/Vol] 6.5 g/dL 5.9-8.4 [facility] Troponin T.cardiac [Mass/vol ume] in Serum or Plasma by High sensitivity methodOrdered By: Jaylen Jack on 08-02-2024 Troponin T.cardiac High sensitivity method [Mass/Vol] 18 ng/L High <14 [facility] Urinalysis, Completeon 08-02 BACTERIA RARE Normal None Seen [facility] Comment on above: Order Comment: MAYA CTOR TO SPECIFY Performed By: #### L 400.0001 #### [facility] [address] [place], [place], [id number] EPI,SQUAMOUS 0-5 SEEN Normal 5-10 [facility] Comment on above: Order Comment: MAYA CTOR TO SPECIFY Performed By: #### L 400.0001 #### [facility] [address] [place], [address] WBC 0-5 SEEN Normal 0-5 [facility] Comment on above: Order Comment: MAYA CTOR TO SPECIFY Performed By: #### L 400.0001 #### [facility] [address] [place], [address] Mucus Ql (Urine sed) 0 SEEN Normal [facility] Comment on above: Order Comment: MAYA CTOR TO SPECIFY Performed By: #### L 400.0001 #### [facility] [address] [place], [address] RBC 0 SEEN Normal 0-5 [facility] Comment on above: Order Comment: MAYA CTOR TO SPECIFY Performed By: #### L 400.0001 #### [facility] [address] [place], [place], [id number] Urine clarityOrdered By: Olesya Jack on 08-02-2024 Clarity (U) Sl. Cloudy Clear [facility] Urine color determinationOrd ered By: Jaylen Jack on 08-02-2024 Color (U) Yellow Yellow [facility] Urine glucose detectionOrder ed By: Jaylen Jack on 08-02-2024 Glucose Ql (U) Normal mg/dl Normal [facility] Urine leukocyte esterase det ection by dipstickOrdered By: Jaylen Jack on 08-02-2024 Leukocyte esterase Test strip Ql (U) Negative Negative [facility] Urine pHOrdered By: Jaylen carroll on 08-02-2024 pH (U) 6.0 [pH] 5.0 - 8.0 [facility] Urine sediment bacteria coun t by microscopy (number/high power field)Ordered By: Jaylen Jack on 08-02-2024 Bacteria LM.HPF (Urine sed) [#/Area] RARE /hpf None Seen [facility] Urine specific gravity measu rementOrdered By: Jaylen Jack on 08-02-2024 Specific gravity (U) [Rel density] 1.020 1.002-1.030 [facility] Urine urobilinogen measureme ntOrdered By: Jaylen Jack on 08-02-2024 Urobilinogen Ql (U) Normal mg/dl Normal [facility] White blood cell (WBC) count Ordered By: Jaylen Jack on 08-02-2024 WBC (Bld) [#/Vol] 6.8 10*3/uL 4.4-11.0 [facility] White blood cell countOrdere d By: Jaylen Jack on 08-02-2024 White blood cell count 0-5 SEEN /hpf 0-5 [facility] Absolute lymphocyte countOrd ered By: Jennifer Meléndez on 06-18-2024 Lymphocytes Auto (Unsp spec) [#/Vol] 1.33 10*3/uL 0.83-4.51 [facility] Absolute neutrophil countOrd ered By: Jennifer Meléndez on 06-18-2024 Neutrophils (Bld) [#/Vol] 5.2 10*3/uL 2.0-7.7 [facility] Anion gap in Serum or Plasma Ordered By: Jennifer Meléndez on 06-18-2024 Anion gap [Moles/Vol] 9 mmol/L 5-15 [facility] Automated lymphocyte count a s percentage of total leukocytesOrdered By: Jennifer Meléndez on 06-18-2024 Lymphocytes/100 WBC Auto (Unsp spec) 18.1 % Low 19-41 [facility] BUN/creatinine ratioOrdered By: Jennifer Meléndez on 06-18-2024 Urea nitrogen/Creatinine [Mass ratio] 38.3 mg/mg High 10-20 [facility] Basic Metabolic Profile (BMP )on 06-18-2024 BUN/CRE 38.3 RATIO High 10- [facility] Comment on above: Performed By: #### L 100.0100, L500.2500 #### [facility] [address] [place], [address] Calcium [Mass/Vol] 10.4 mg/dL Normal 7.6-11.0 [facility] Comment on above: Performed By: #### L 100.0100, L500.2500 #### [facility] [address] [place], [address] Chloride [Moles/Vol] 102 mmol/L Normal 98-108 [facility] Comment on above: Performed By: #### L 100.0100, L500.2500 #### [facility] [address] [place], [address] CO2 [Moles/Vol] 27.6 mmol/L Normal 21.0-32.0 [facility] Comment on above: Performed By: #### L 100.0100, L500.2500 #### [facility] [address] [place], [address] Creatinine [Mass/Vol] 0.70 mg/dL Normal 0.70-1.20 [facility] Comment on above: Performed By: #### L 100.0100, L500.2500 #### [facility] [address] [place], [address] ECRCL 59.54 ml/min Normal 50-250 [facility] Comment on above: Performed By: #### L 100.0100, L500.2500 #### [facility] [address] [place], [address] GAP 9 Normal 5-15 [facility] Comment on above: Performed By: #### L 100.0100, L500.2500 #### [facility] [address] [place], [address] GFR/1.73 sq M.predicted among non-blacks MDRD (S/P/Bld) [Vol rate/Area] 88 mL/min/{1.73_m2} Normal >60 [facility] Comment on above: Result Comment: mL/m in/1.73m2 CKD-EPI Creatinine Equation (2020) Performed By: #### L 100.0100, L500.2500 #### [facility] [address] [place], [address] Glucose [Mass/Vol] 114 mg/dL High 70-99 [facility] Comment on above: Performed By: #### L 100.0100, L500.2500 #### [facility] [address] [place], [address] Potassium [Moles/Vol] 4.5 mmol/L Normal 3.3-5.1 [facility] Comment on above: Performed By: #### L 100.0100, L500.2500 #### [facility] [address] [place], [address] Sodium [Moles/Vol] 139 mmol/L Normal 133-145 [facility] Comment on above: Performed By: #### L 100.0100, L500.2500 #### [facility] [address] [place], [address] Urea nitrogen [Mass/Vol] 27 mg/dL High - [facility] Comment on above: Performed By: #### L 100.0100, L500.2500 #### [facility] [address] [place], [address] Basophil percentageOrdered B y: Jennifer Meléndez on 06-18-2024 Basophils/100 WBC (Bld) 0.3 % 0-1 [facility] CBC W/Diff, Automatedon 05-31 Absolute Lymph 1.33 X10 3/uL Normal 0.83-4.51 [facility] Comment on above: Performed By: #### L 100.0100, L500.2500 #### [facility] [address] [place], [address] Absolute Neut 5.2 X10 3/uL Normal 2.0-7.7 [facility] Comment on above: Performed By: #### L 100.0100, L500.2500 #### [facility] [address] [place], [address] Basophils/100 WBC (Bld) 0.3 % Normal 0-1 [facility] Comment on above: Performed By: #### L 100.0100, L500.2500 #### [facility] [address] [place], [address] Eosinophils/100 WBC (Bld) 1.0 % Normal 0-5 [facility] Comment on above: Performed By: #### L 100.0100, L500.2500 #### [facility] [address] [place], [address] Erythrocyte distribution width (RBC) [Ratio] 12.6 % Normal 11.6-14.6 [facility] Comment on above: Performed By: #### L 100.0100, L500.2500 #### [facility] [address] [place], [address] Hematocrit (Bld) [Volume fraction] 42.3 % Normal 37-47 [facility] Comment on above: Performed By: #### L 100.0100, L500.2500 #### [facility] [address] [place], [address] Hemoglobin (Bld) [Mass/Vol] 14.1 g/dL Normal 12.0-15.0 [facility] Comment on above: Performed By: #### L 100.0100, L500.2500 #### [facility] [address] [place], [address] IG% 0.400 Normal 0.0-0.9 [facility] Comment on above: Result Comment: IG% - Immature Granulocytes (promyelocytes, myelocytes and metamyelocytes) > 1% indicates that a LEFT SHIFT is Present. Performed By: #### L 100.0100, L500.2500 #### [facility] [address] [place], [address] Lymphocytes/100 WBC (Bld) 18.1 % Low 19-41 [facility] Comment on above: Performed By: #### L 100.0100, L500.2500 #### [facility] [address] [place], [address] MCH (RBC) [Entitic mass] 30.4 pg Normal 27.0-32.0 [facility] Comment on above: Performed By: #### L 100.0100, L500.2500 #### [facility] [address] [place], [address] MCHC (RBC) [Mass/Vol] 33.3 g/dL Normal 32-36 [facility] Comment on above: Performed By: #### L 100.0100, L500.2500 #### [facility] [address] [place], [address] MCV (RBC) [Entitic vol] 91.2 fL Normal 81-99 [facility] Comment on above: Performed By: #### L 100.0100, L500.2500 #### [facility] [address] [place], [address] Monocytes/100 WBC (Bld) 9.1 % Normal 0-10 [facility] Comment on above: Performed By: #### L 100.0100, L500.2500 #### [facility] [address] [place], [address] Neutrophils/100 WBC (Bld) 71.1 % High 47-70 [facility] Comment on above: Performed By: #### L 100.0100, L500.2500 #### [facility] [address] [place], [address] Nucleated RBC (Bld) [#/Vol] 0 10*3/uL Normal 0-5 [facility] Comment on above: Performed By: #### L 100.0100, L500.2500 #### [facility] [address] [place], [address] Platelet mean volume (Bld) [Entitic vol] 9.3 fL Normal 6.2-12.0 [facility] Comment on above: Performed By: #### L 100.0100, L500.2500 #### [facility] [address] [place], [address] Platelets (Bld) [#/Vol] 222 10*3/uL Normal 150-450 [facility] Comment on above: Performed By: #### L 100.0100, L500.2500 #### [facility] [address] [place], [address] RBC (Bld) [#/Vol] 4.64 10*6/uL Normal 4.2-5.4 [facility] Comment on above: Performed By: #### L 100.0100, L500.2500 #### [facility] [address] [place], [address] RDW SD 41.5 fl Normal 35.1-43.9 [facility] Comment on above: Performed By: #### L 100.0100, L500.2500 #### [facility] [address] [place], [address] WBC (Bld) [#/Vol] 7.3 10*3/uL Normal 4.4-11.0 [facility] Comment on above: Performed By: #### L 100.0100, L500.2500 #### [facility] [facility] [address] [place], [address] Carbon dioxide, total [Moles /volume] in Central venous bloodOrdered By: Jennifer Meléndez on 06-18-2024 CO2 [Moles/Vol] 27.6 mmol/L 21.0-32.0 [facility] Chloride assayOrdered By: Myriam Meléndez on 06-18-2024 Chloride [Moles/Vol] 102 mmol/L 98-108 [facility] Emergency Department Summary on 06-18-2024 Emergency Department Summary [facility] Medical Records Department [address] [place] [address] Emergency Department Summary 06/18/24 MR#: [id number] Acct: [id number] Name: AYAN CARRILLO Rep #: [id number] : [id number] From: Jennifer MAJOR PCP: [...] pain, shortness of breath, palpitations or syncope. [facility] Medical History Obesity Essential (primary) hypertension Atherosclerotic heart disease of [place] coronary artery without angina pectoris Hyperlipidemia GERD [...] [Lying] 95 (more content not included)... Normal [facility] Eosinophil percentageOrdered By: Jennifer Meléndez on 06-18-2024 Eosinophils/100 WBC (Bld) 1.0 % 0-5 [facility] Erythrocyte distribution wid th (RBC) [Ratio]Ordered By: Jennifer Meléndez on 06-18-2024 Erythrocyte distribution width (RBC) [Entitic vol] 41.5 fL 35.1-43.9 [facility] Erythrocyte distribution wid th ratioOrdered By: Jennifer Meléndez on 06-18-2024 Erythrocyte distribution width (RBC) [Ratio] 12.6 % 11.6-14.6 [facility] Erythrocyte distribution wid th standard deviationOrdered By: Jennifer Meléndez on 06-18-2024 Erythrocyte distribution width (RBC) [Ratio] 41.5 fl 35.1-43.9 [facility] Estimation of creatinine renea aranceOrdered By: Jennifer Meléndez on 06-18-2024 Estimated Creatinine Clearance Calc 59.54 ml/min 50-250 [facility] GFR/1.73 sq M.predicted bronson g non-blacks MDRD (S/P/Bld) [Vol rate/Area]Ordered By: Jennifer Meléndez on 06-18-2024 Estimated GFR (MDRD) Non-Af Amer 88 >60 [facility] Comment on above: mL/min/1.73m2 CKD-EP I Creatinine Equation (2020) Glomerular filtration rate ( GFR) estimation/1.73 sq m using serum, plasma, or whole bOrdered By: Jennifer Meléndez on 06-18-2024 GFR/1.73 sq M.predicted among non-blacks MDRD (S/P/Bld) [Vol rate/Area] 88 mL/min/{1.73_m2} >60 [facility] Comment on above: mL/min/1.73m2 CKD-EP I Creatinine Equation (2020) Hematocrit Auto (Bld) [Volum e fraction]Ordered By: Jennifer Meléndez on 06-18-2024 Hematocrit (Bld) [Volume fraction] 42.3 % 37-47 [facility] Hemoglobin measurementOrdere d By: Jennifer Meléndez on 06-18-2024 Hemoglobin (Bld) [Mass/Vol] 14.1 g/dL 12.0-15.0 [facility] Immature granulocytes/100 WB C Auto (Bld)Ordered By: Jennifer Meléndez on 06-18-2024 Immature granulocytes/100 WBC (Bld) 0.400 % 0.0-0.9 [facility] Comment on above: IG% - Immature Granu locytes (promyelocytes, myelocytes and metamyelocytes) > 1% indicates that a LEFT SHIFT is Present. Lymphocytes Auto (Unsp spec) [#/Vol]Ordered By: Jennifer Meléndez on 06-18-2024 Lymphocytes (Bld) [#/Vol] 1.33 10*3/uL 0.83-4.51 [facility] Lymphocytes/100 WBC Auto (Un sp spec)Ordered By: Jennifer Meléndez on 06-18-2024 Lymphocytes/100 WBC (Bld) 18.1 % Low 19-41 [facility] MCV (mean corpuscular volume ) determinationOrdered By: Jennifer Meléndez on 06-18-2024 MCV (RBC) [Entitic vol] 91.2 fL 81-99 [facility] Mean corpuscular hemoglobin (MCH) determinationOrdered By: Jennifer Meléndez on 06-18-2024 MCH (RBC) [Entitic mass] 30.4 pg 27.0-32.0 [facility] Mean corpuscular hemoglobin concentration (MCHC) determinationOrdered By: Jennifer Meléndez on 06-18-2024 MCHC (RBC) [Mass/Vol] 33.3 g/dL 32-36 [facility] Mean platelet volume determi nationOrdered By: Jennifer Meléndez on 06-18-2024 Platelet mean volume (Bld) [Entitic vol] 9.3 fL 6.2-12.0 [facility] Monocyte percentageOrdered B y: Jennifer Meléndez on 06-18-2024 Monocytes/100 WBC (Bld) 9.1 % 0-10 [facility] Neutrophil percentageOrdered By: Jennifer Meléndez on 06-18-2024 Neutrophils/100 WBC (Bld) 71.1 % High 47-70 [facility] Nucleated red blood cell per centageOrdered By: Jennifer Meléndez on 06-18-2024 Nucleated RBC/100 WBC (Bld) [Ratio] 0 % 0-5 [facility] Platelet countOrdered By: Myriam Meléndez on 06-18-2024 Platelets (Bld) [#/Vol] 222 10*3/uL 150-450 [facility] Potassium (Unsp spec) [Mass/ Vol]Ordered By: Jennifer Meléndez on 06-18-2024 Potassium [Moles/Vol] 4.5 mmol/L 3.3-5.1 [facility] Potassium measurement (mass/ volume)Ordered By: Jennifer Meléndez on 06-18-2024 Potassium (Unsp spec) [Mass/Vol] 4.5 mmol/L 3.3-5.1 [facility] RBC Auto (Bld) [#/Vol]Ordere d By: Jennifer Meléndez on 06-18-2024 RBC (Bld) [#/Vol] 4.64 10*6/uL 4.2-5.4 [facility] Serum creatinine measurement (mass/volume)Ordered By: Jennifer Meléndez on 06-18-2024 Creatinine [Mass/Vol] 0.70 mg/dL 0.70-1.20 [facility] Serum glucose measurement (m ass/volume)Ordered By: Jennifer Meléndez on 06-18-2024 Glucose [Mass/Vol] 114 mg/dL High 70-99 [facility] Serum or plasma calcium aaron urement (mass/volume)Ordered By: Jennifer Meléndez on 06-18-2024 Calcium [Mass/Vol] 10.4 mg/dL 7.6-11.0 [facility] Serum or plasma urea nitroge n measurement (mass/volume)Ordered By: Jennifer Meléndez on 06-18-2024 Urea nitrogen [Mass/Vol] 27 mg/dL High 4-19 [facility] Sodium levelOrdered By: Jennifer Meléndez on 06-18-2024 Sodium [Moles/Vol] 139 mmol/L 133-145 [facility] White blood cell (WBC) count Ordered By: Jennifer Meléndez on 06-18-2024 WBC (Bld) [#/Vol] 7.3 10*3/uL 4.4-11.0 [facility] Culture, urineOrdered By: Russell Markham on 03-25-2023 Bacteria identified Cx Nom (U) Mixed Gram Pos & Gram Neg Org [facility] Basophil percentageOrdered B y: Ginger Grace on 02-02-2023 Bilirubin [Mass/Vol] 0.70 mg/dL 0.20-1.00 [facility] Comment on above: For patients on eltr ombopag therapy, use of Dimension [place] TBIL is not recommended. Cholesterol [Mass/Vol] 96 mg/dL <200 [facility] Comment on above: <200 mg/dL Desirable 200-240 mg/dL Borderline >240 mg/dL High Risk Protein [Mass/Vol] 6.1 g/dL 6.4-8.2 [facility] Triglyceride [Mass/Vol] 127 mg/dL <199 [facility] Comment on above: The drugs N-Acetylcy steine and Metamizole may falsely depress this assay.Serum Triglycerides Reference Interval Normal <150 mg/dL Borderline high 150 - 199 mg/dL High 200 - 499 mg/dL Very High > or = 500 mg/dL Direct bilirubinOrdered By: Ginger Grace on 02-02-2023 Bilirubin.direct [Mass/Vol] 0.19 mg/dL 0.00-0.30 [facility] Laboratory - Chemistry and C hemistry - challengeOrdered By: Ginger Grace on 02-02-2023 ALP [Catalytic activity/Vol] 105 U/L 45-117 [facility] ALT [Catalytic activity/Vol] 18 U/L 13-56 [facility] Globulin (S) [Mass/Vol] 3.4 g/dL 2.2-4.2 [facility] Serum or plasma albumin aaron urement (mass/volume)Ordered By: Ginger Grace on 02-02-2023 Albumin [Mass/Vol] 2.7 g/dL 3.2-5.0 [facility] Serum or plasma cholesterol in HDL measurement (mass/volume)Ordered By: Ginger Grace on 02-02-2023 Cholesterol in HDL [Mass/Vol] 39 mg/dL >40 [facility] Comment on above: The drugs N-Acetylcy steine and Metamizole may falsely depress this assay. Reference Range HDL <40 mg/dL Low HDL Cholesterol HDL >or= 60 mg/dL High HDL Cholesterol Serum or plasma cholesterol in VLDL measurement (mass/volume)Ordered By: Ginger Grace on 02-02-2023 Cholesterol in VLDL [Mass/Vol] 25 mg/dL 5-40 [facility] Serum or plasma low density lipoprotein (LDL) cholesterol measurement (mass/volume)Ordered By: Ginger Grace on 02-02-2023 Cholesterol in LDL [Mass/Vol] 32 mg/dL 0-130 [facility] Thin prep Papanicolaou smear with manual screeningOrdered By: Ginger Grace on 02-02-2023 Thin prep Papanicolaou smear with manual screening 14 U/L 15-37 [facility] Basophil percentageon 2021 Chloride [Moles/Vol] 106 mmol/L 98-107 [facility] Work Phone: Glucose [Mass/Vol] 102 mg/dL 74-106 [facility] Work Phone: Comment on above: Fasting Glucose resu lt from 100 to 125 mg/dL suggests IMPAIRED HOMEOSTASIS per A.D.A. criteria. Potassium [Moles/Vol] 4.0 mmol/L 3.5-5.1 [facility] Work Phone: Sodium [Moles/Vol] 141 mmol/L 136-145 [facility] Work Phone: Laboratory - Chemistry and C hemistry - challengeon 01-07-2022 CO2 [Moles/Vol] 28.0 mmol/L 21.0-32.0 [facility] Work Phone: Urea nitrogen/Creatinine [Mass ratio] 27.5 mg/mg 10-20 [facility] Work Phone: No Panel Informationon 01-07 Estimated GFR (MDRD) Amer 129 mL/min >60 [facility] Work Phone: Comment on above: GFR Calc Estimated GFR (MDRD) Non-Af Amer 107 mL/min >60 [facility] Work Phone: Comment on above: Non- GFR Calc Serum or plasma calcium aaron urement (mass/volume)on 11-08-2022 Calcium [Mass/Vol] 9.4 mg/dL 8.5-10.1 [facility] Work Phone: [phone] Serum or plasma creatinine m easurement (mass/volume)on 01-07-2022 Creatinine [Mass/Vol] 0.58 mg/dL 0.55-1.02 [facility] Work Phone: Comment on above: The validity of the calculated GFR & GFRAA in patients over 70 years has not been determined. Clinical correlation is essential. Serum or plasma urea nitroge n measurement (mass/volume)on 01-07-2022 Urea nitrogen [Mass/Vol] 16 mg/dL 7-18 [facility] Work Phone: [phone] Thin prep Papanicolaou smear with manual screeningon 01-07-2022 Thin prep Papanicolaou smear with manual screening 7 5-15 [facility] Work Phone: Basophil percentageon 2021 Bilirubin [Mass/Vol] 0.90 mg/dL 0.20-1.00 [facility] Work Phone: Comment on above: For patients on eltr ombopag therapy, use of Dimension [place] TBIL is not recommended. Chloride [Moles/Vol] 107 mmol/L 98-107 [facility] Work Phone: Cholesterol [Mass/Vol] 113 mg/dL <200 [facility] Work Phone: Comment on above: <200 mg/dL Desirable 200-240 mg/dL Borderline >240 mg/dL High Risk Glucose [Mass/Vol] 109 mg/dL 74-106 [facility] Work Phone: [phone] Comment on above: Fasting Glucose resu lt from 100 to 125 mg/dL suggests IMPAIRED HOMEOSTASIS per A.D.A. criteria. Potassium [Moles/Vol] 4.0 mmol/L 3.5-5.1 [facility] Work Phone: [phone] Protein [Mass/Vol] 6.6 g/dL 6.4-8.2 [facility] Work Phone: [phone] Sodium [Moles/Vol] 139 mmol/L 136-145 [facility] Work Phone: [phone] Triglyceride [Mass/Vol] 116 mg/dL <199 [facility] Work Phone: [phone] Comment on above: The drugs N-Acetylcy steine and Metamizole may falsely depress this assay.Serum Triglycerides Reference Interval Normal <150 mg/dL Borderline high 150 - 199 mg/dL High 200 - 499 mg/dL Very High > or = 500 mg/dL Direct bilirubinon Bilirubin.direct [Mass/Vol] 0.27 mg/dL 0.00-0.30 [facility] Work Phone: [phone] Laboratory - Chemistry and C hemistry - challengeon 12-25-2021 ALP [Catalytic activity/Vol] 132 U/L 45-117 [facility] Work Phone: [phone] ALT [Catalytic activity/Vol] 15 U/L 13-56 [facility] Work Phone: [phone] CO2 [Moles/Vol] 30.0 mmol/L 21.0-32.0 [facility] Work Phone: [phone] Globulin (S) [Mass/Vol] 3.6 g/dL 2.2-4.2 [facility] Work Phone: [phone] Natriuretic peptide B (Bld) [Mass/Vol] 243.4 pg/mL 0-100 [facility] Work Phone: [phone] Urea nitrogen/Creatinine [Mass ratio] 22.1 mg/mg 10-20 [facility] Work Phone: No Panel Informationon 12-25 Estimated GFR (MDRD) Amer 139 mL/min >60 [facility] Work Phone: [phone] Comment on above: GFR Calc Estimated GFR (MDRD) Non-Af Amer 115 mL/min >60 [facility] Work Phone: [phone] Comment on above: Non- GFR Calc Serum or plasma albumin aaron urement (mass/volume)on 12-25-2021 Albumin [Mass/Vol] 3.0 g/dL 3.2-5.0 [facility] Work Phone: Serum or plasma calcium aaron urement (mass/volume)on 12-25-2021 Calcium [Mass/Vol] 10.0 mg/dL 8.5-10.1 [facility] Work Phone: Serum or plasma cholesterol in HDL measurement (mass/volume)on 12-25-2021 Cholesterol in HDL [Mass/Vol] 46 mg/dL >40 [facility] Work Phone: Comment on above: The drugs N-Acetylcy steine and Metamizole may falsely depress this assay. Reference Range HDL <40 mg/dL Low HDL Cholesterol HDL >or= 60 mg/dL High HDL Cholesterol Serum or plasma cholesterol in VLDL measurement (mass/volume)on 12-25-2021 Cholesterol in VLDL [Mass/Vol] 23 mg/dL 5-40 [facility] Work Phone: [phone] Serum or plasma creatinine m easurement (mass/volume)on 12-25-2021 Creatinine [Mass/Vol] 0.54 mg/dL 0.55-1.02 [facility] Work Phone: Comment on above: The validity of the calculated GFR & GFRAA in patients over 70 years has not been determined. Clinical correlation is essential. Serum or plasma low density lipoprotein (LDL) cholesterol measurement (mass/volume)on 12-25-2021 Cholesterol in LDL [Mass/Vol] 44 mg/dL 0-130 [facility] Work Phone: Serum or plasma urea nitroge n measurement (mass/volume)on 12-25-2021 Urea nitrogen [Mass/Vol] 12 mg/dL 7-18 [facility] Work Phone: [phone] Thin prep Papanicolaou smear with manual screeningon 12-25-2021 Thin prep Papanicolaou smear with manual screening 12 U/L 15-37 [facility] Work Phone: [phone] Thin prep Papanicolaou smear with manual screening 2 5-15 [facility] Work Phone: [phone] Absolute lymphocyte counton 10-12-2021 Lymphocytes Auto (Unsp spec) [#/Vol] 0.84 10*3/uL 0.83-4.51 [facility] Work Phone: Basophil percentageon 2021 Basophils/100 WBC (Bld) 0.1 % 0-1 [facility] Work Phone: Chloride [Moles/Vol] 107 mmol/L 98-107 [facility] Work Phone: Eosinophils/100 WBC (Bld) 1.2 % 0-5 [facility] Work Phone: Glucose [Mass/Vol] 110 mg/dL 74-106 [facility] Work Phone: Comment on above: Fasting Glucose resu lt from 100 to 125 mg/dL suggests IMPAIRED HOMEOSTASIS per A.D.A. criteria. Neutrophils (Bld) [#/Vol] 5.2 10*3/uL 2.0-7.7 [facility] Work Phone: Neutrophils/100 WBC (Bld) 77.9 % 47-70 [facility] Work Phone: Potassium [Moles/Vol] 4.5 mmol/L 3.5-5.1 [facility] Work Phone: Comment on above: Slight Hemolysis, Re sult may be falsely increased. Sodium [Moles/Vol] 140 mmol/L 136-145 [facility] Work Phone: WBC (Bld) [#/Vol] 6.7 10*3/uL 4.4-11.0 [facility] Work Phone: Blood erythrocytes count (nu mber/volume)on 10-12-2021 RBC (Bld) [#/Vol] 4.54 10*6/uL 4.2-5.4 [facility] Work Phone: Blood hemoglobin measurement (mass/volume)on 10-12-2021 Hemoglobin (Bld) [Mass/Vol] 13.5 g/dL 12.0-15.0 [facility] Work Phone: Blood lymphocytes/100 leukoc yteson 10-12-2021 Lymphocytes/100 WBC (Bld) 12.5 % 19-41 [facility] Work Phone: Blood monocytes/100 leukocyt eson 10-12-2021 Monocytes/100 WBC (Bld) 7.9 % 0-10 [facility] Work Phone: [phone] Blood platelet mean volumeon 10-12-2021 Platelet mean volume (Bld) [Entitic vol] 9.5 fL 6.2-12.0 [facility] Work Phone: [phone] Determination of erythrocyte mean corpuscular volume (MCV)on 10-12-2021 MCV (RBC) [Entitic vol] 92.7 fL 81-99 [facility] Work Phone: [phone] Hematocrit Auto (Bld) [Volum e fraction]on 10-12-2021 Hematocrit (Bld) [Volume fraction] 42.1 % 37-47 [facility] Work Phone: [phone] Laboratory - Chemistry and C hemistry - challengeon 10-12-2021 CO2 [Moles/Vol] 33.0 mmol/L 21.0-32.0 [facility] Work Phone: [phone] Urea nitrogen/Creatinine [Mass ratio] 26.6 mg/mg 10-20 [facility] Work Phone: [phone] Laboratory - Hematology and Cell countson 10-12-2021 Erythrocyte distribution width (RBC) [Entitic vol] 42.5 fL 35.1-43.9 [facility] Work Phone: [phone] Erythrocyte distribution width (RBC) [Ratio] 12.6 % 11.6-14.6 [facility] Work Phone: [phone] Immature granulocytes/100 WBC (Bld) 0.400 % 0.0-0.9 [facility] Work Phone: [phone] Comment on above: IG% - Immature Granu locytes (promyelocytes, myelocytes and metamyelocytes) > 1% indicates that a LEFT SHIFT is Present. MCH (RBC) [Entitic mass] 29.7 pg 27.0-32.0 [facility] Work Phone: Nucleated RBC/100 WBC (Bld) [Ratio] 0 % 0-5 [facility] Work Phone: MCHC Auto (RBC) [Mass/Vol]on 10-12-2021 MCHC (RBC) [Mass/Vol] 32.1 g/dL 32-36 [facility] Work Phone: No Panel Informationon 10-12 Troponin I High Sensitivity 13 pg/mL 3.0-54.0 [facility] Work Phone: Comment on above: Please Note: New Vanessa t Units and Gender Specific Reference Ranges. For more information see Policy Stat Procedure [place] High Sensitivity Troponin (TNIH) and attachments. Estimated Creatinine Clearance Calc 73.85 ml/min [facility] Work Phone: Estimated GFR (MDRD) Amer 134 mL/min >60 [facility] Work Phone: Comment on above: GFR Calc Estimated GFR (MDRD) Non-Af Amer 111 mL/min >60 [facility] Work Phone: Comment on above: Non- GFR Calc Platelets bldon 10-12-2021 Platelets (Bld) [#/Vol] 209 10*3/uL 150-450 [facility] Work Phone: [phone] Serum or plasma calcium aaron urement (mass/volume)on 10-12-2021 Calcium [Mass/Vol] 10.1 mg/dL 8.5-10.1 [facility] Work Phone: [phone] Serum or plasma creatinine m easurement (mass/volume)on 10-12-2021 Creatinine [Mass/Vol] 0.56 mg/dL 0.55-1.02 [facility] Work Phone: Comment on above: The validity of the calculated GFR & GFRAA in patients over 70 years has not been determined. Clinical correlation is essential. Serum or plasma urea nitroge n measurement (mass/volume)on 10-12-2021 Urea nitrogen [Mass/Vol] 15 mg/dL 7-18 [facility] Work Phone: [phone] Thin prep Papanicolaou smear with manual screeningon 10-12-2021 Thin prep Papanicolaou smear with manual screening 0 5-15 [facility] Work Phone: [phone] Basophil percentageon 2021 Bilirubin [Mass/Vol] 0.60 mg/dL 0.20-1.00 [facility] Work Phone: [phone] Comment on above: For patients on eltr ombopag therapy, use of Dimension [place] TBIL is not recommended. Cholesterol [Mass/Vol] 109 mg/dL <200 [facility] Work Phone: [phone] Comment on above: <200 mg/dL Desirable 200-240 mg/dL Borderline >240 mg/dL High Risk Protein [Mass/Vol] 6.3 g/dL 6.4-8.2 [facility] Work Phone: [phone] Triglyceride [Mass/Vol] 139 mg/dL [facility] Work Phone: [phone] Comment on above: The drugs N-Acetylcy steine and Metamizole may falsely depress this assay.Serum Triglycerides Reference Interval Normal <150 mg/dL Borderline high 150 - 199 mg/dL High 200 - 499 mg/dL Very High > or = 500 mg/dL Direct bilirubinon Bilirubin.direct [Mass/Vol] 0.19 mg/dL 0.00-0.30 [facility] Work Phone: [phone] Laboratory - Chemistry and C hemistry - challengeon 05-30-2021 ALP [Catalytic activity/Vol] 101 U/L 45-117 [facility] Work Phone: [phone] ALT [Catalytic activity/Vol] 20 U/L 13-56 [facility] Work Phone: [phone] Globulin (S) [Mass/Vol] 3.2 g/dL 2.2-4.2 [facility] Work Phone: [phone] Serum or plasma albumin aaron urement (mass/volume)on 05-30-2021 Albumin [Mass/Vol] 3.1 g/dL 3.2-5.0 [facility] Work Phone: [phone] Serum or plasma cholesterol in HDL measurement (mass/volume)on 05-30-2021 Cholesterol in HDL [Mass/Vol] 41 mg/dL [facility] Work Phone: Comment on above: The drugs N-Acetylcy steine and Metamizole may falsely depress this assay. Reference Range HDL <40 mg/dL Low HDL Cholesterol HDL >or= 60 mg/dL High HDL Cholesterol Serum or plasma cholesterol in VLDL measurement (mass/volume)on 05-30-2021 Cholesterol in VLDL [Mass/Vol] 28 mg/dL 5-40 [facility] Work Phone: [phone] Serum or plasma low density lipoprotein (LDL) cholesterol measurement (mass/volume)on 05-30-2021 Cholesterol in LDL [Mass/Vol] 40 mg/dL 0-130 [facility] Work Phone: Thin prep Papanicolaou smear with manual screeningon 05-30-2021 Thin prep Papanicolaou smear with manual screening 13 U/L 15-37 [facility] Work Phone: Lab Report: Basic Metabolic Profile (BMP)on 10-28-2016 Anion gap 4 mmol/L Low 5-15 [facility] Work Phone: [phone] Anion gap molar conc 4 mmol/L Low 5-15 [facility] Work Phone: [phone] BUN/Creatinine Ratio 17.8 RATIO Invalid Interpretation Code 10-20 [facility] Work Phone: [phone] Calcium 9.8 mg/dL Invalid Interpretation Code 8.5-10.1 [facility] Work Phone: [phone] Chloride 107 mmol/L Invalid Interpretation Code 98-107 [facility] Work Phone: [phone] CO2 31.0 mmol/L Invalid Interpretation Code 21.0-32.0 [facility] Work Phone: [phone] CO2 ppres (BldV) 31.0 mmol/L 21.0-32.0 [facility] Work Phone: [phone] Creatinine 0.62 mg/dL Invalid Interpretation Code 0.55-1.02 [facility] Work Phone: [phone] eGFR (non-black) 122 mL/min/{1.73_m2} Invalid Interpretation Code >60 [facility] Work Phone: [phone] eGFR (non-black) 101 mL/min/{1.73_m2} Invalid Interpretation Code >60 [facility] Work Phone: [phone] EST GFR - AA 122 mL/min >60 [facility] Work Phone: [phone] Glucose 98 mg/dL Invalid Interpretation Code 70-110 [facility] Work Phone: [phone] Glucose mass conc 98 mg/dL 70-110 [facility] Work Phone: [phone] Potassium 4.4 mmol/L Invalid Interpretation Code 3.5-5.1 [facility] Work Phone: [phone] Sodium 142 mmol/L Invalid Interpretation Code 136-145 [facility] Work Phone: [phone] Urea nitrogen 11 mg/dL Invalid Interpretation Code 7-18 [facility] Work Phone: [phone] Office Visit: [facility] 08-27-19 17 Fall risk assessment No Invalid Interpretation Code [facility] Work Phone: [phone] Office Visiton 11-27-2015 Documentation of current medications (procedure) Done Invalid Interpretation Code [facility] Work Phone: [phone] Protein mass conc Done [facility] Work Phone: [phone] Clinical Lists Update: Pre 11-23-2015 Left ventricular Ejection fraction 55 % Invalid Interpretation Code [facility] Work Phone: [phone] Clinical Lists Update: [facility] publications writer 10-26-2015 Alanine aminotransferase (ALT) 17 U/L Invalid Interpretation Code [facility] Work Phone: [phone] Albumin 2.8 g/dL Low [facility] Work Phone: [phone] Alkaline phosphatase (ALP) 121 U/L Invalid Interpretation Code [facility] Work Phone: [phone] ALP enzyme act/vol (Bld) 121 U/L [facility] Work Phone: [phone] Anion gap 6 mmol/L Invalid Interpretation Code [facility] Work Phone: [phone] Anion gap molar conc 6 mmol/L [facility] Work Phone: [phone] Aspartate aminotransferase (AST) 13 U/L Low [facility] Work Phone: [phone] Bilirubin (total) 0.60 mg/dL Invalid Interpretation Code [facility] Work Phone: [phone] BUN/Creatinine Ratio 18.2 mg/mg Invalid Interpretation Code [facility] Work Phone: [phone] Calcium 9.1 mg/dL Invalid Interpretation Code [facility] Work Phone: [phone] Chloride 105 mmol/L Invalid Interpretation Code [facility] Work Phone: [phone] Cholesterol 91 mg/dL Invalid Interpretation Code [facility] Work Phone: [phone] CO2 27.0 mmol/L Invalid Interpretation Code [facility] Work Phone: [phone] CO2 ppres (BldV) 27.0 mmol/L [facility] Work Phone: [phone] Creatinine 0.55 mg/dL Invalid Interpretation Code [facility] Work Phone: [phone] Globulin 3.3 g/dL Invalid Interpretation Code [facility] Work Phone: [phone] Globulin mass conc (S) 3.3 g/dL [facility] Work Phone: [phone] Glucose 102 mg/dL Invalid Interpretation Code [facility] Work Phone: [phone] Glucose mass conc 102 mg/dL [facility] Work Phone: [phone] HDL Cholesterol 36 mg/dL Low [facility] Work Phone: [phone] LDL Cholesterol 32 mg/dL Invalid Interpretation Code [facility] Work Phone: [phone] Potassium 3.8 mmol/L Invalid Interpretation Code [facility] Work Phone: [phone] Protein 6.1 g/dL Low [facility] Work Phone: [phone] Sodium 138 mmol/L Invalid Interpretation Code [facility] Work Phone: [phone] Triglyceride 116 mg/dL Invalid Interpretation Code [facility] Work Phone: [phone] Urea nitrogen 10 mg/dL Invalid Interpretation Code [facility] Work Phone: [phone] very low density lipoproteins 23 mg/dL Invalid Interpretation Code [facility] Work Phone: [phone] Clinical Lists Update: Prelo publications writer 10-25-2015 Erythrocyte distribution width Ratio (RBC) 14.3 % [facility] Work Phone: [phone] Erythrocytes (RBC) 4.74 10*6/uL Invalid Interpretation Code [facility] Work Phone: [phone] Hematocrit (HCT) 40.1 % Invalid Interpretation Code [facility] Work Phone: [phone] Hematocrit Volume Fraction (Bld) 40.1 % [facility] Work Phone: [phone] Hemoglobin (HGB) 12.5 g/dL Invalid Interpretation Code [facility] Work Phone: [phone] MCH 26.4 pg Low [facility] Work Phone: [phone] MCH Entitic mass (RBC) 26.4 pg Low [facility] Work Phone: [phone] MCHC 31.2 g/dL Low [facility] Work Phone: [phone] MCHC mass conc (RBC) 31.2 g/dL Low [facility] Work Phone: [phone] MCV 84.6 fL Invalid Interpretation Code [facility] Work Phone: [phone] MCV Entitic volume (RBC) 84.6 fL [facility] Work Phone: [phone] Platelet mean volume Entitic volume (Bld) 9.3 fL [facility] Work Phone: [phone] Platelets 212 10*3/mm3 Invalid Interpretation Code [facility] Work Phone: [phone] Platelets #/vol (Bld) 212 10*3/mm3 [facility] Work Phone: [phone] PMV by Gabe 9.3 fL Invalid Interpretation Code [facility] Work Phone: [phone] RBC #/vol (Bld) 4.74 10*6/uL [facility] Work Phone: [phone] RDW-CA 14.3 % Invalid Interpretation Code [facility] Work Phone: [phone] WBC #/vol (Bld) 6.4 10*3/uL [facility] [employer] Work Phone: [phone] WBC (Leukocytes) 6.4 10*3/uL Invalid Interpretation Code [facility] [employer] Work Phone: [phone] Lab Report: Liver Profileon 06-25-2015 Bilirubin (direct) 0.12 mg/dL Invalid Interpretation Code 0.00-0.30 [facility] [employer] Work Phone: [phone] Globulin 3.9 g/dL High 2.3-3.5 [facility] Work Phone: [phone] Globulin mass conc (S) 3.9 g/dL High 2.3-3.5 [facility] [employer] Work Phone: [phone] Office Visit: [facility] 03-28-19 16 Tobacco smoking status DCIS Never smoker [facility] Work Phone: [phone] Tobacco use [facility] Never smoker Invalid Interpretation Code [facility] [employer] Work Phone: [phone] Office Visit: [facility] 03-01-20 14 cardiac risk group C Invalid Interpretation Code [facility] [employer] Work Phone: [phone] General cardiovascular disease 10Y risk [#] [place].D'Agostino N/A Invalid Interpretation Code [facility] [employer] Work Phone: [phone] Tobacco smoking status DCIS Never Invalid Interpretation Code [facility] [employer] Work Phone: [phone] Replaced Document: [place] 03-01-2014 EKG QRS axis -32 deg [facility] [employer] Work Phone: [phone] electrocardiogram interpretation Sinus Rhythm -RSR(V1) -nondiagnostic. PROBABLY NORMAL Invalid Interpretation Code [facility] [employer] Work Phone: [phone] GE use only - for [employer] import when terms are not otherwise specified 406 ms Invalid Interpretation Code [facility] [employer] Work Phone: [phone] Interpretation Sinus Rhythm -RSR(V1) -nondiagnostic. PROBABLY NORMAL [facility] [employer] Work Phone: [phone] P [place] 60 deg [facility] [employer] Work Phone: [phone] P wave axis, electrocardiogram 60 deg Invalid Interpretation Code [facility] [employer] Work Phone: DE Interval 132 ms [facility] Work Phone: [phone] DE interval, electrocardiogram 132 ms Invalid Interpretation Code [facility] [employer] Work Phone: [phone] Pulse (Heart Rate) 73 /min Invalid Interpretation Code [facility] [employer] Work Phone: [phone] QRS axis, electrocardiogram -32 deg Invalid Interpretation Code [facility] Work Phone: [phone] QRS Duration 102 ms [facility] [employer] Work Phone: [phone] QRS duration, electrocardiogram 102 ms Invalid Interpretation Code [facility] [employer] Work Phone: [phone] QT Interval new path ms [facility] [employer] Work Phone: [phone] QT interval, electrocardiogram new path ms Invalid Interpretation Code [facility] Work Phone: [phone] QTc Lee 406 ms [facility] Work Phone: [phone] T [place] 10 deg [facility] Work Phone: [phone] T wave axis, electrocardiogram 10 deg Invalid Interpretation Code [facility] Work Phone: [phone] Lab Report: TROPon 2 Troponin I ng/mL Normal <0.06 [facility] Work Phone: [phone] Vital Signs Date Time Vital Sign Value Performing Clinician Buzz short 10-25-2024 17:00-0400 Diastolic blood pressure 70 mm[Hg] Dr. Lilly Fletcher MD Work Phone: [facility] 10-25-2024 17:00-0400 Heart rate 65 /min Dr. Lilly Fletcher MD Work Phone: [facility] 10-25-2024 17:00-0400 SaO2% (BldA) [Mass fraction] 100 % Dr. Lilly Fletcher MD Work Phone: [facility] 10-25-2024 17:00-0400 Systolic blood pressure 128 mm[Hg] Dr. Lilly Fletcher MD Work Phone: [facility] 10-25-2024 16:17-0400 Body temperature 98 [degF] Dr. Lilly Fletcher MD Work Phone: [facility] 10-25-2024 16:17-0400 Respiratory rate 18 /min Dr. Lilly Fletcher MD Work Phone: [facility] 10-25-2024 12:05-0400 Body height 149.[address] Lilly Fletcher MD Work Phone: 1(663)373-285692 [place] [address] 10-25-2024 12:05-0400 Body mass index (BMI) [Ratio] 42.3 kg/m2 Dr. Lilly Fletcher MD Work Phone: 9(718)758-969892 [place] [address] 10-25-2024 12:05-0400 Body weight 94.[address] Lilly Fletcher MD Work Phone: 3(079)931-698136 [place] [address] 10-21-2024 15:18-0400 Body temperature 97.9 [degF] Dr. Lilly Fletcher MD Work Phone: 3(348)553-151992 [place] [address] 10-21-2024 15:18-0400 Diastolic blood pressure 81 mm[Hg] Dr. Lilly Fletcher MD Work Phone: 2(227)075-722192 [place] [address] 10-21-2024 15:18-0400 Heart rate 85 /min Dr. Lilly Fletcher MD Work Phone: 5(590)028-746636 [place] [address] 10-21-2024 15:18-0400 Respiratory rate 20 /min Dr. Lilly Fletcher MD Work Phone: 1(014)931-440397 [address] 10-21-2024 15:18-0400 SaO2% (BldA) [Mass fraction] 94 % Dr. Lilly Fletcher MD Work Phone: [facility] 10-21-2024 15:18-0400 Systolic blood pressure 170 mm[Hg] Dr. Lilly Fletcher MD Work Phone: 9(311)730-141597 [address] 10-21-2024 09:41-0400 Body height 149.[address] Lilly Fletcher MD Work Phone: [facility] 10-21-2024 09:41-0400 Body mass index (BMI) [Ratio] 43.7 kg/m2 Dr. Lilly Fletcher MD Work Phone: [facility] 10-21-2024 09:41-0400 Body weight 98.[address] Lilly Fletcher MD Work Phone: [facility] 09-09-2024 23:08-0400 Body temperature 98.2 [degF] Dr. Lilly Fletcher MD Work Phone: [facility] 09-09-2024 23:08-0400 Diastolic blood pressure 80 mm[Hg] Dr. Lilly Fletcher MD Work Phone: [facility] 09-09-2024 23:08-0400 Heart rate 59 /min Dr. Lilly Fletcher MD Work Phone: 0(507)932-179392 [place] [address] 09-09-2024 23:08-0400 Respiratory rate 18 /min Dr. Lilly Fletcher MD Work Phone: 9(608)105-528592 [place] [address] 09-09-2024 23:08-0400 SaO2% (BldA) [Mass fraction] 94 % Dr. Lilly Fletcher MD Work Phone: [facility] 09-09-2024 23:08-0400 Systolic blood pressure 163 mm[Hg] Dr. Lilly Fletcher MD Work Phone: [facility] 09-09-2024 20:06-0400 Body height 149.[address] Lilly Fletcher MD Work Phone: [facility] 09-09-2024 20:06-0400 Body mass index (BMI) [Ratio] 43.7 kg/m2 Dr. Lilly Fletcher MD Work Phone: [facility] 09-09-2024 20:06-0400 Body weight 98.[address] Lilly Fletcher MD Work Phone: [facility] 09-05-2024 16:01-0400 Body height 149.[address] Lilly Fletcher MD Work Phone: [facility] 09-05-2024 16:01-0400 Body mass index (BMI) [Ratio] 42 kg/m2 Dr. Lilly Fletcher MD Work Phone: 7(473)638-597792 [place] [address] 09-05-2024 16:01-0400 Body weight 94.[address] Lilly Fletcher MD Work Phone: 8(573)814-918392 [place] [address] 09-05-2024 16:01-0400 Diastolic blood pressure 82 mm[Hg] Dr. Lilly Fletcher MD Work Phone: 2(652)588-953636 [place] [address] 09-05-2024 16:01-0400 Heart rate 66 /min Dr. Lilly Fletcher MD Work Phone: 9(223)461-815536 [place] [address] 09-05-2024 16:01-0400 Respiratory rate 18 /min Dr. Lilly Fletcher MD Work Phone: 1(740)923-857436 [place] [address] 09-05-2024 16:01-0400 Systolic blood pressure 142 mm[Hg] Dr. Lilly Fletcher MD Work Phone: 8(076)496-053936 [place] [address] 08-15-2024 15:31-0400 Body height 149.[address] Lilly Fletcher MD Work Phone: 0(551)465-290936 [place] [address] 08-15-2024 15:31-0400 Body mass index (BMI) [Ratio] 41.3 kg/m2 Dr. Lilly Fletcher MD Work Phone: 7(369)996-800636 [place] [address] 08-15-2024 15:31-0400 Body weight 92.[address] Lilly Fletcher MD Work Phone: 2(748)420-513936 [place] [address] 08-15-2024 15:31-0400 Diastolic blood pressure 66 mm[Hg] Dr. Lilly Fletcher MD Work Phone: 8(157)593-947836 [place] [address] 08-15-2024 15:31-0400 Heart rate 74 /min Dr. Lilly Fletcher MD Work Phone: 4(126)663-044436 [place] [address] 08-15-2024 15:31-0400 Respiratory rate 20 /min Dr. Lilly Fletcher MD Work Phone: 6(281)459-461936 [place] [address] 08-15-2024 15:31-0400 Systolic blood pressure 142 mm[Hg] Dr. Lilly Fletcher MD Work Phone: [facility] 08-02-2024 06:53-0400 Body temperature 97.8 [degF] Dr. Lilly Fletcher MD Work Phone: [facility] 08-02-2024 06:53-0400 Diastolic blood pressure 62 mm[Hg] Dr. Lilly Fletcher MD Work Phone: 7(296)198-511192 [place] [address] 08-02-2024 06:53-0400 Heart rate 67 /min Dr. Lilly Fletcher MD Work Phone: 6(672)422-753192 [place] [address] 08-02-2024 06:53-0400 Respiratory rate 18 /min Dr. Lilly Fletcher MD Work Phone: 1(417)710-994697 [address] 08-02-2024 06:53-0400 SaO2% (BldA) [Mass fraction] 95 % Dr. Lilly Fletcher MD Work Phone: 7(147)464-381892 [place] [address] 08-02-2024 06:53-0400 Systolic blood pressure 140 mm[Hg] Dr. Lilly Fletcher MD Work Phone: 7(882)881-644092 [place] [address] 08-02-2024 03:44-0400 Body height 149.[address] Lilly Fletcher MD Work Phone: 5(041)252-564992 [place] [address] 08-02-2024 03:44-0400 Body mass index (BMI) [Ratio] 42.5 kg/m2 Dr. Lilly Fletcher MD Work Phone: 3(296)969-569492 [place] [address] 08-02-2024 03:44-0400 Body weight 95.[address] Lilly Fletcher MD Work Phone: 1(263)866-920792 [place] [address] 06-18-2024 21:58-0400 Body temperature 98.1 [degF] Dr. Lilly Fletcher MD Work Phone: 9(691)343-864036 [place] [address] 06-18-2024 21:58-0400 Diastolic blood pressure 60 mm[Hg] Dr. Lilly Fletcher MD Work Phone: 1(109)739-772592 [place] [address] 06-18-2024 21:58-0400 Heart rate 91 /min Dr. Lilly Fletcher MD Work Phone: [facility] 06-18-2024 21:58-0400 Respiratory rate 16 /min Dr. Lilly Fletcher MD Work Phone: 8(121)288-434392 [place] [address] 06-18-2024 21:58-0400 SaO2% (BldA) [Mass fraction] 97 % Dr. Lilly Fletcher MD Work Phone: 2(043)571-709592 [place] [address] 06-18-2024 21:58-0400 Systolic blood pressure 116 mm[Hg] Dr. Lilly Fletcher MD Work Phone: 9(413)618-911036 [place] [address] 06-18-2024 20:34-0400 Body height 149.[address] Lilly Fletcher MD Work Phone: 7(362)744-933036 [place] [address] 06-18-2024 20:34-0400 Body mass index (BMI) [Ratio] 43.2 kg/m2 Dr. Lilly Fletcher MD Work Phone: 9(456)177-493136 [place] [address] 06-18-2024 20:34-0400 Body weight 97.[address] Lilly Fletcher MD Work Phone: 5(547)415-556236 [place] [address] 03-25-2023 16:24-0500 Body height 149.[address] Lilly Fletcher Work Phone: 6(561)799-925136 [place] [address] 03-25-2023 16:24-0500 Body mass index (BMI) [Ratio] 43 kg/m2 Dr. Lilly Fletcher Work Phone: 9(441)353-429397 [address] 03-25-2023 16:24-0500 Body temperature 97.8 [degF] Dr. Lilly Fletcher Work Phone: 3(031)833-539536 [place] [address] 03-25-2023 16:24-0500 Body weight 96.[address] Lilly Fletcher Work Phone: 3(125)696-034092 [place] [address] 03-25-2023 16:24-0500 Diastolic blood pressure 90 mm[Hg] Dr. Lilly Fletcher Work Phone: 1(368)545-300492 [place] [address] 03-25-2023 16:24-0500 Heart rate 82 /min Dr. Lilly Fletcher Work Phone: [facility] 03-25-2023 16:24-0500 Respiratory rate 20 /min Dr. Lilly Fletcher Work Phone: [facility] 03-25-2023 16:24-0500 SaO2% (BldA) [Mass fraction] 95 % Dr. Lilly Fletcher Work Phone: [facility] 03-25-2023 16:24-0500 Systolic blood pressure 152 mm[Hg] Dr. Lilly Fletcher Work Phone: [facility] 02-02-2023 10:11-0500 Body height 149.[address] Lilly Fletcher Work Phone: [facility] 02-02-2023 10:11-0500 Body mass index (BMI) [Ratio] 43.8 kg/m2 Dr. Lilly Fletcher Work Phone: [facility] 02-02-2023 10:11-0500 Body weight 98.[address] Lilly Fletcher Work Phone: [facility] 02-02-2023 10:11-0500 Diastolic blood pressure 73 mm[Hg] Dr. Lilly Fletcher Work Phone: [facility] 02-02-2023 10:11-0500 Heart rate 87 /min Dr. Lilly Fletcher Work Phone: [facility] 02-02-2023 10:11-0500 Respiratory rate 18 /min Dr. Lilly Fletcher Work Phone: [facility] 02-02-2023 10:11-0500 SaO2% (BldA) [Mass fraction] 94 % Dr. Lilly Fletcher Work Phone: [facility] 02-02-2023 10:11-0500 Systolic blood pressure 137 mm[Hg] Dr. Lilly Fletcher Work Phone: [facility] 10-31-2021 10:51-0400 Body height 147.[address] Lilly Fletcher Work Phone: [facility] Work Phone: 10-31-2021 10:51-0400 Body mass index (BMI) [Ratio] 44.5 kg/m2 Dr. Lilyl Fletcher Work Phone: [facility] Work Phone: 10-31-2021 10:51-0400 Body weight 96.[address] Lilly Fletcher Work Phone: [facility] Work Phone: 10-31-2021 10:51-0400 Diastolic blood pressure 90 mm[Hg] Dr. Lilly Fletcher Work Phone: [facility] Work Phone: 10-31-2021 10:51-0400 Heart rate 67 /min Dr. Lilly Fletcher Work Phone: [facility] Work Phone: 10-31-2021 10:51-0400 Respiratory rate 20 /min Dr. Lilly Fletcher Work Phone: [facility] Work Phone: 10-31-2021 10:51-0400 SaO2% (BldA) [Mass fraction] 94 % Dr. Lilly Fletcher Work Phone: [facility] Work Phone: 10-31-2021 10:51-0400 Systolic blood pressure 157 mm[Hg] Dr. Lilly Fletcher Work Phone: [facility] Work Phone: 10-12-2021 18:12-0400 Diastolic blood pressure 98 mm[Hg] [facility] Work Phone: 10-12-2021 18:12-0400 Heart rate 66 /min [facility] Work Phone: 10-12-2021 18:12-0400 Respiratory rate 17 /min [facility] Work Phone: 10-12-2021 18:12-0400 SaO2% (BldA) [Mass fraction] 97 % [facility] Work Phone: 10-12-2021 18:12-0400 Systolic blood pressure 169 mm[Hg] [facility] Work Phone: 10-12-2021 13:21-0400 Body height 147.32 cm [facility] Work Phone: 10-12-2021 13:21-0400 Body mass index (BMI) [Ratio] 45.7 kg/m2 [facility] Work Phone: 10-12-2021 13:21-0400 Body temperature 98.1 [degF] [facility] Work Phone: 10-12-2021 13:21-0400 Body weight 99.3 kg [facility] Work Phone: 04-18-2021 07:35-0500 Body height 152.[address] Lilly Fletcher Work Phone: [facility] Work Phone: 04-18-2021 07:35-0500 Body mass index (BMI) [Ratio] 40.8 kg/m2 Dr. Lilly Fletcher Work Phone: [facility] Work Phone: 04-18-2021 07:35-0500 Body weight 95.[address] Lilly Fletcher Work Phone: [facility] Work Phone: 04-18-2021 07:35-0500 Diastolic blood pressure 84 mm[Hg] Dr. Lilly Fletcher Work Phone: [facility] Work Phone: 04-18-2021 07:35-0500 Heart rate 82 /min Dr. Lilly Fletcher Work Phone: [facility] Work Phone: 04-18-2021 07:35-0500 Respiratory rate 18 /min Dr. Lilly Fletcher Work Phone: [facility] Work Phone: 04-18-2021 07:35-0500 SaO2% (BldA) [Mass fraction] 95 % Dr. Lilly Fletcher Work Phone: [facility] Work Phone: 04-18-2021 07:35-0500 Systolic blood pressure 132 mm[Hg] Dr. Lilly Fletcher Work Phone: [facility] Work Phone: 10-28-2016 11:34-0400 BP Diastolic 108 mm[Hg] [facility] De[facility] Work Phone: 10-28-2016 11:34-0400 BP Systolic 150 mm[Hg] Harumi DeFinis [facility] Work Phone: 10-28-2016 11:34-0400 Pulse (Heart Rate) 76 /min Harumi DeFinis [facility] Work Phone: 10-28-2016 11:34-0400 Respiratory Rate 20 /min Harumi DeFinis [facility] Work Phone: 09-24-2016 11:42-0400 BP Diastolic 90 mm[Hg] Harumi DeFinis [facility] Work Phone: 09-24-2016 11:42-0400 BP Systolic 148 mm[Hg] Harumi DeFinis [facility] Work Phone: 09-24-2016 11:42-0400 Pulse (Heart Rate) 64 /min [facility] De[facility] Work Phone: 09-24-2016 11:42-0400 Respiratory Rate 20 /min Harumi DeFinis [facility] Work Phone: 09-08-2016 11:25-0400 BP Diastolic 90 mm[Hg] Harumi DeFinis [facility] Work Phone: 09-08-2016 11:25-0400 BP Systolic 160 mm[Hg] Harumi DeFinis [facility] Work Phone: 09-08-2016 11:25-0400 Pulse (Heart Rate) 72 /min Harumi Iman [facility] Work Phone: 09-08-2016 11:25-0400 Respiratory Rate 20 /min Harumi Iman [facility] Work Phone: 08-26-2016 11:40-0400 BMI (Body Mass Index) 42.65 kg/m2 MD [facility] Work Phone: 08-26-2016 11:40-0400 BP Diastolic 74 mm[Hg] MD [facility] Work Phone: 08-26-2016 11:40-0400 BP Systolic 160 mm[Hg] MD [facility] Work Phone: 08-26-2016 11:40-0400 Height 152.4 cm MD [facility] Work Phone: 08-26-2016 11:40-0400 Pulse (Heart Rate) 72 /min MD [facility] Work Phone: 08-26-2016 11:40-0400 Respiratory Rate 20 /min MD [facility] Work Phone: 08-26-2016 11:40-0400 Weight 99.07 kg Elie Davis MD [facility] Work Phone: 11-27-2015 15:03-0400 BSA (Body Surface Area) 1.95 m2 Elie Davis MD [facility] Work Phone: 03-01-2014 09:21-0500 Heart rate 73 /min Harumi Iman [facility] Work Phone: Encounters Encounter Date Encounter Type Care Provider Facility Start: 10-26-2024 ambulatory Kale Ansari NP Facility :[facility] Start: 10-25-2024 Evaluation and management of inpatient Dr. Aranza Little MD -Progressive Care Unit Work Phone: Start: 10-25-[address] Lilly Fletcher MD Work Phone: -Progressive Care Unit Start: 10-21-2024 End: 10-21-2024 Emergency department patient visit Dr. Lilly Fletcher MD Work Phone: -Emergency Department Work Phone: Start: 10-14-2024 End: 10-14-2024 Patient encounter procedure Ginger Grace [facility]-C [facility] Work Phone: Start: 10-14-2024 End: 10-14-[address] Lilly Fletcher MD Work Phone: [facility] Start: 10-01-2024 End: 10-01-[address] Lilly Fletcher MD Work Phone: -Laboratory Start: 10-01-2024 End: 10-01-2024 Patient encounter procedure Kale Ansari [facility]-C -Laboratory Work Phone: Start: 10-01-2024 End: 10-01-2024 ambulatory Kale Ansari [employer] Facility:[facility] Start: 09-14-2024 ambulatory Kale Ansari [employer] Facility :[facility] Start: 09-09-2024 End: 09-09-2024 Emergency department patient visit Dr. Lilly Fletcher MD Work Phone: -Emergency Department Work Phone: Start: 09-05-2024 End: 09-05-2024 Patient encounter procedure Kale Ansari [employer] [employer]-C -[facility] Work Phone: Start: 09-05-2024 End: 09-05-[address] Lilly Fletcher MD Work Phone: -[facility] Start: 08-29-2024 ambulatory Kale Ansari [employer]ER Facility :[facility] Start: 08-29-2024 Registered Referred Kale Ansari [employer]-C -Cardiovascular Services Work Phone: Start: 08-15-2024 End: 08-15-2024 Patient encounter procedure Kale ANDERSON -[facility] Work Phone: Start: 08-15-2024 End: 08-15-[address] Lilly Fletcher MD Work Phone: [facility] Work Phone: Start: 08-02-2024 End: 08-02-2024 Emergency department patient visit Dr. Lilly Fletcher MD Work Phone: -Emergency Department Work Phone: Start: 06-18-2024 End: 06-18-2024 Emergency department patient visit Dr. Lilly Fletcher MD Work Phone: -Emergency Department Work Phone: Start: 03-25-2023 End: 03-25-[address] Lilly Fletcher Work Phone: [facility] Work Phone: Start: 03-25-2023 End: 03-25-[address] Lilly Fletcher Work Phone: [facility] Work Phone: Start: 02-02-2023 End: 02-02-[address] Lilly Fletcher Work Phone: [facility] Work Phone: Start: 02-02-2023 End: 02-02-[address] Lilly Fletcher Work Phone: [facility] Work Phone: Start: 01-07-2022 End: 01-07-[address] Lilly Fletcher Work Phone: [facility] Work Phone: Start: 01-07-2022 End: 01-07-[address] Lilly Fletcher Work Phone: [facility] Start: 12-25-2021 End: 12-25-[address] Lilly Fletcher Work Phone: [facility] Work Phone: Start: 12-25-2021 End: 12-25-[address] Lilly Fletcher Work Phone: [facility] Start: 11-20-2021 Non-patient / Non-visit Dr. Bella Fletcher Work Phone: [facility] Start: 11-20-2021 End: 11-20-[address] Lilly Fletcher Work Phone: [facility] Work Phone: Start: 11-20-2021 End: 11-20-[address] [facility] Start: 11-07-2021 End: 11-07-[address] Lilly Fletcher Work Phone: [facility] Work Phone: Start: 11-07-2021 End: 11-07-[address] Lilly Fletcher Work Phone: [facility]-Pulmonary Services/Neurology Start: 10-31-2021 End: 10-31-[address] Lilly Fletcher Work Phone: [facility] Start: 10-12-2021 End: 10-12-2021 Emergency department patient visit [facility]-Emergency Department Start: 05-30-2021 End: 05-30-[address] Lilly Fletcher Work Phone: [facility]-Laboratory Start: 05-08-2021 Non-patient / Non-visit Dr. Bella Fletcher Work Phone: [facility] Start: 05-08-2021 End: 05-08-[address] [facility] Start: 04-18-2021 End: 04-18-[address] Lilly Fletcher Work Phone: [facility] Procedures Date Procedure Procedure Detail Performing Clinician Start: 10-25-2024 Plain chest X-ray Dr. Preston Fletcher MD Work Phone: Start: 10-25-[address] Lilly Fletcher MD Work Phone: Start: 10-21-2024 Plain chest X-ray Dr. Preston Fletcher MD Work Phone: Start: 10-21-[address] Lilly Fletcher MD Work Phone: Start: 09-09-2024 Plain chest X-ray Dr. 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 Kale Kendall Roof [employer] Work Phone: Start: 08-26-2016 End: 08-27-2016 Follow Up Appt 6 months Kale H Roof [employer] Work Phone: Start: 08-26-2016 End: 09-08-2016 Follow Up BP Check Kale Kendall Roof [employer] Work Phone: Start: 11-27-2015 End: 11-27-2015 Follow Up Appt 6 months Willis Lara Start: 11-27-2015 End: 11-27-2015 MMM Elie Davis MD Start: 11-22-2015 End: 11-29-2015 Lipid panel [AGGREGATE] Vivien lopez PA-C Work Phone: Start: 06-15-2015 End: 06-25-2015 *Hepatic Function Panel Vivien lopez PA-C Work Phone: Start: 06-15-2015 End: 06-25-2015 Lipid panel [AGGREGATE] Vivien lopez PA-C Work Phone: Start: 03-28-2015 End: 03-28-2015 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 Vivien Haynes PA-C Work Phone: Start: 03-28-2015 [...] [AGGREGATE] Willis Lara Start: 03-01-2014 End: 03-01-2014 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 Vivien Haynes PA-C Work Phone: Start: 03-01-2014 [...] months Willis Lara Start: 07-20-2013 End: 07-20-2013 MAE Davis MD Start: 04-02-2013 End: 05-12-2013 *Hepatic Function Panel Willis Lara Start: 04-02-2013 End: 05-12-2013 Lipid panel [AGGREGATE] Willis Lara Start: 12-07-2012 End: 12-07-2012 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 Vivien Haynes PA-C Work Phone: Start: 12-07-2012 [...] Treatment Date Care Activity Detail Author Start: 10-25-2024 Verification routine [facility] Start: 10-25-2024 Admission procedure [facility] Start: 10-25-2024 Hospital admission, emergency, from emergency room, medical nature [facility] Start: 10-25-2024 [facility] Start: 10-21-2024 [facility] Start: 10-21-2024 [facility] Start: 10-14-2024 Evaluation of diagnostic study results [facility] Start: 09-09-2024 [facility] Start: 09-09-2024 [facility] Start: 08-02-2024 [facility] Start: 08-02-2024 [facility] Start: 06-18-2024 End: 06-18-2024 [facility] Start: 10-12-2021 [facility] Work Phone: Start: 02-26-2017 End: 02-26-2017 Appointment Appointment [facility] Work Phone: Start: 11-11-2016 End: 11-11-2016 Appointment Appointment [facility] Work Phone: Start: 10-28-2016 End: 10-28-2016 Appointment Appointment [facility] Work Phone: Start: 10-28-2016 End: 10-28-2016 Follow Up BP Check Follow Up BP Check [facility] Work Phone: Start: 10-08-2016 End: 10-08-2016 Appointment Appointment [facility] Work Phone: Start: 09-24-2016 End: 09-24-2016 Appointment Appointment [facility] Work Phone: Start: 09-24-2016 End: 10-28-2016 *BMP *BMP [facility] Work Phone: Start: 09-24-2016 End: 09-24-2016 Follow Up BP Check Follow Up BP Check [facility] Work Phone: Start: 09-22-2016 End: 09-22-2016 Appointment Appointment [facility] Work Phone: Start: 09-08-2016 End: 09-08-2016 Appointment Appointment [facility] Work Phone: Start: 09-05-2016 End: 09-05-2016 Appointment [facility]ointment [facility] Work Phone: Start: 08-27-2016 End: 08-27-2016 Appointment Appointment [facility] Work Phone: Start: 08-26-2016 End: 09-08-2016 *BMP *BMP [facility] Work Phone: Start: 08-26-2016 End: 08-27-2016 *Hepatic Function Panel *Hepatic Function Panel [facility] Work Phone: Start: 08-26-2016 End: 08-27-2016 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 [facility] Work Phone: Start: 08-26-2016 End: 08-27-2016 Follow Up Appt 6 months Follow Up Appt 6 months [facility] Work Phone: Start: 08-26-2016 [...] Phone: Start: 11-27-2015 End: 11-27-2015 MMM MMM [facility] Work Phone: Start: 11-22-2015 End: 11-29-2015 Lipid panel [AGGREGATE] *Lipid Profile CC PCP [facility] Work Phone: Start: 06-15-2015 End: 06-25-2015 *Hepatic Function Panel *Hepatic Function Panel [facility] Work Phone: Start: 06-15-2015 End: 06-25-2015 Lipid panel [AGGREGATE] *Lipid Profile CC PCP [facility] Work Phone: Start: 03-28-2015 End: 03-28-2015 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 [facility] Work Phone: Start: 03-28-2015 End: 03-28-2015 Echocardiography Echocardiogram (complete) [facility] Work Phone: Start: 03-28-2015 End: 03-28-2015 Follow Up Appt 6 months Follow Up Appt 6 months [facility] Work Phone: Start: 11-29-2014 End: 12-14-2014 *Hepatic Function Panel *Hepatic Function Panel [facility] Work Phone: Start: 11-29-2014 End: 12-14-2014 Lipid panel [AGGREGATE] *Lipid Profile CC PCP [facility] Work Phone: Start: 09-12-2014 End: 09-12-2014 Follow Up Appt 6 months Follow Up Appt 6 months [facility] Work Phone: Start: 09-12-2014 End: 09-12-2014 MMM MMM [facility] Work Phone: Start: 05-24-2014 End: 05-29-2014 *Hepatic Function Panel *Hepatic Function Panel [facility] Work Phone: Start: 05-24-2014 End: 05-29-2014 Lipid panel [AGGREGATE] *Lipid Profile CC PCP [facility] Work Phone: Start: 03-01-2014 End: 03-01-2014 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 [facility] Work Phone: Start: 03-01-2014 End: 03-01-2014 Electrocardiogram, complete EKG (In office) [facility] Work Phone: Start: 03-01-2014 End: 03-01-2014 Follow Up Appt 6 months Follow Up Appt 6 months [facility] Work Phone: Start: 10-31-2013 End: 11-24-2013 *Hepatic Function Panel *Hepatic Function Panel [facility] Work Phone: Start: 10-31-2013 End: 11-24-2013 Lipid panel [AGGREGATE] *Lipid Profile CC PCP [facility] Work Phone: Start: 07-20-2013 End: 07-20-2013 Echocardiography Echocardiogram (complete) [facility] Work Phone: Start: 07-20-2013 End: 07-20-2013 Follow Up Appt 6 months Follow Up Appt 6 months [facility] Work Phone: Start: 07-20-2013 End: 07-20-2013 MMM MMM [facility] Work Phone: Start: 04-02-2013 End: 05-12-2013 *Hepatic Function Panel *Hepatic Function Panel [facility] Work Phone: Start: 04-02-2013 End: 05-12-2013 Lipid panel [AGGREGATE] *Lipid Profile CC PCP [facility] Work Phone: Start: 12-07-2012 End: 12-07-2012 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 [facility] Work Phone: Start: 12-07-2012 End: 12-07-2012 Follow Up Appt 6 months Follow Up Appt 6 months [facility] Work Phone: Start: 08-30-2012 End: 09-27-2012 *Hepatic Function Panel *Hepatic Function Panel [facility] Work Phone: Start: 08-30-2012 End: 09-27-2012 Lipid panel [AGGREGATE] *Lipid Profile [facility] Work Phone: Start: 06-04-2012 End: 06-04-2012 Follow Up Appt 6 months Follow Up Appt 6 months [facility] Work Phone: Start: 06-04-2012 End: 06-04-2012 MMM MMM [facility] Work Phone: Start: 03-03-2012 End: 03-24-2012 *Hepatic Function Panel *Hepatic Function Panel [facility] Work Phone: Start: 03-03-2012 End: 03-24-2012 Lipid panel [AGGREGATE] *Lipid Profile [facility] Work Phone: Start: 09-23-2011 End: 10-03-2011 *Hepatic Function Panel *Hepatic Function Panel [facility] Work Phone: Start: 09-23-2011 End: 10-03-2011 Lipid panel [AGGREGATE] *Lipid Profile [facility] Work Phone: Start: 08-13-2011 End: 08-13-2011 Follow Up Appt 6 months Follow Up Appt 6 months [facility] Work Phone: Cardiac event recording [facility] Patient Education [facility] Work Phone: Patient referral [facility] Work Phone: Troponin T.cardiac [Mass/volume] in Serum or Plasma by High sensitivity method [facility] Troponin T.cardiac [Mass/volume] in Serum or Plasma by High sensitivity method [facility] US Carotid arteries [facility] US Heart [facility] Work Phone: [facility] Payers Date Payer Category Payer Self-pay [id number] 2023 Medicare [id number] Medicare [id number] Private Health Insurance [id number] [facility] [id number] 2.16.8 [id number] Unknown [id number] 2.16.8 [id number] Unknown [id number] 2.16.8 [id number] Unknown [id number] 2.16.8 [id number] Unknown [id number] 2.16.8 [id number] Unknown [id number] 2.16.8 [id number] Unknown [id number] 2.16.8 [id number] Unknown [id number] 2.16.8 [id number] Unknown [id number] 2.16.8 [id number] Unknown [id number] 2.16.8 [id number] Unknown [id number] 2.16.8 [id number] Social History Date Type Detail Facility Start: 04-18-2021 End: 03-25-2023 Tobacco smoking status NHIS Unknown if ever smoked [facility] Start: 07-11-2020 None [facility] Start: 10-25-2015 With Family [facility] Start: 07-11-2020 Non-smoker [facility] Start: 1945 Sex Assigned At Female W [facility] Start: 06-18-2024 End: 10-25-2024 Tobacco smoking status NHIS Never smoked tobacco (finding) [facility] Start: 06-18-2024 Sex Female (finding) [facility] Mental Status Date Assessment Result Facility 10-25-2024 Cognitive function Awake;Alert;A ppropriate;Follow s Commands [facility] Work Phone: 10-21-2024 Cognitive function Voice/Name [facility] Work Phone: 09-09-2024 Cognitive function Voice/Name [facility] Work Phone: 08-02-2024 Cognitive function Level Of Cons ciousness Awake;Alert;Appropriate;Follow s Commands [facility] Work Phone: 10-12-2021 Cognitive function Voice/Name [facility] Work Phone: Clinical Notes 06-18-2024 to 10-25-2024 Note Date & Type Note Facility 10-25-2024 Discharge summary [facility] 10-25-2024 Radiology Diagnostic study note [facility] Imaging Services [address] [place], [place] [address] Chest 1 View (Portable) MR#: [id number] Acct: [id number] Name: AYAN CARRILLO Rep #: [id number] : 1945 F 79 From: Philipp Paz MD PCP: Dr. Brayan Thompson MD Status: REG ER Study:Chest 1 View (Portable) Date of Exam: 10/25/24 Exam# [id number] Ordering Dr: Rod Jack DO PROCEDURE: CHEST 1 VIEW (PORTABLE) 10/25/2024 REASON FOR EXAM: CP TECHNIQUE: Frontal view of the chest. COMPARISON: Prior study dated October 21, 2024. FINDINGS: Hardware: EKG electrodes are seen. Heart: The heart is nonenlarged. Tortuosity of the descending thoracic aorta. Lungs: The lungs are clear. Bones: Degenerative changes are identified within the thoracic spine. Other: Stable elevation of the left hemidiaphragm. RAD/Chest 1 View (Portable) IMPRESSION: No significant change since last exam. Reading Location: [facility] CC: Dr. Brayan Thompson MD; Dr. Jaylen Jack DO ~ Rip Saw Operator: Signed [facility] 10-25-2024 Discharge summary Note Date/Time October 25, 2024 4:21pm [facility] Medical Records Department [address] [place] [address] Emergency Department Summary 10/25/24 MR#: [id number] Acct: [id number] Name: AYAN CARRILLO Rep #:[id number] : 1945 79 From: Jaylen Solomon PCP: Dr. Brayan Thompson MD Status :REG ER Location: ED HPI History of Present Illness Chief Complaint: Chest Pain PFSH PFS Medical History Myocardial infarction Obesity Essential (primary) hypertension Atherosclerotic heart disease of [place] coronary artery without angina pectoris Hyperlipidemia GERD (gastroesophageal reflux disease) Osteoarthritis Morbid obesity with BMI of 40.0-44.9, adult Home Medications ?Medication ?Instructions ?Recorded ?Last Taken ?Type aspirin 81 mg chewable tablet 81 mg PO QHS 10/25/15 History nitroglycerin 0.4 mg sublingual 0.4 mg sublingual Q5M PRN Chest 08/10/23 10/25/24 Rx tablet Pain #25 tabs atorvastatin 40 mg tablet 40 mg PO QHS #90 tabs 10/24/24 Rx omeprazole 20 mg capsule,delayed 20 mg PO DAILY #90 ca ps 08/01/24 10/25/24 Rx release carvedilol 25 mg tablet 25 mg PO BID Dose has been 0 08/15/24 10/25/24 Rx increased #180 tabs lisinopril 20 mg tablet 20 mg PO QHS #90 tabs 10/24/24 Rx apixaban 5 mg tablet (Eliquis) 5 mg PO BID #60 tabs 10/25/24 Rx diltiazem HCl 120 mg capsule,24 120 mg PO QAM #30 caps 10/14/24 10/25/24 Rx hr,extended release (Tiadylt ER) levothyroxine 75 mcg tablet 75 mcg PO DAILY 10/25/24 0 10/25/24 History potassium gluconate 595 mg (99 mg) 595 mg PO DAILY 10/25/24 History tablet Allergy/AdvReac Type Severity Reaction Status Date / Time hydrochlorothiazide AdvReac Intermediate Constipatio Verified 10/25/24 12:08 n Family History Father CAD (coronary artery disease) Mother CHF (congestive heart failure) Sister Hypertension Surgical History History of cholecystectomy History of left heart catheterization (06/04/08) History of coronary angioplasty (09/20/07) History of laparoscopic cholecystectomy History of total hysterectomy Social History (Updated 10/25/24 @ 12:06 by Annette Chacon) housing: house Smoking Status: Never smoker alcohol intake: never substance use type: does not use EXAM Physical Exam Const Vital Signs: 10/25/24 12:05 10/25/24 12:05 10/25/24 13:05 Temperature 97.8 F Temperature Source Oral Pulse Rate 83 80 Respiratory Rate 16 18 Respiratory Effort Normal Non-Labored Blood Pressure 119/84 H 127/80 H Blood Pressure Mean 95 95 Pulse Ox 94 99 Oxygen Delivery Method Room Air 10/25/24 14:03 10/25/24 15:00 Temperature Temperature Source Pulse Rate 80 66 Respiratory Rate 18 Respiratory Effort Blood Pressure 125/80 H 131/70 H Blood Pressure Mean 95 90 Pulse Ox 100 99 Oxygen Delivery Method MDM MDM MDM Narrative Medical decision making narrative: HISTORY OF PRESENT ILLNESS: Chief complaint: Chest pain 79-year-old female history of hypertension, CAD, GERD, CAD status post stent, A-fib on Eliquis presents with with chest pain. Notes started this morning. She notes it began after food. Denies abdominal pain. No she took 2 nitro at home with minimal relief. No she got aspirin per EMS. She states she woke this morning with chest pressure and tightness. Is not exertional. It is not sharp. Is not ripping or tearing. Is not associate with syncope. Denies diaphoresis or nausea associated. Denies associated shortness of breath. Denies new leg swelling, orthopnea or proximal nocturnal dyspnea. Denies any bleeding diathesis. Denies cough fever or chills. The patient denies recent surgery in the last 4 weeks or immobilization in the last 3 days, denies previous diagnosis of DVT or PE, hemoptysis, unilateral leg swelling or malignancy with treatment the last 6 months or palliative. No estrogen use noted. Patient denies sudden onset of pain, no tearing sensation, no migratory symptoms, no new numbness, weakness or loss of sensation. Patient denies familyhistory or personal history of Connective tissue disorders (Marfan's Syndrome, Srinivas Danlos etc) REVIEW OF SYSTEMS: Pertinent positives: Chest pain Pertinent negatives: As per HPI PHYSICAL EXAM: Nursing triage notes reviewed, Vital signs reviewed Constitutional: please see [facility] HENT: MMM Eyes: Pupils equal round [...] see HPI External records reviewed: Reviewed prior cardiovascular testing: Reviewed echocardiogram from October 2023: Showed ejection fraction of 65. Factors affecting care: as per HPI Social determinants of health: Denies illicit drug use A-fib on Eliquis History obtained from others: EMS Consults: Cardiology (Dr. Franco), Internal Medicine (Dr. Little) [facility] Narrative: The patient was initially hemodynamically stable, afebrile and nontoxic-appearing. Exam without focal cardiopulmonary abnormalities. Patient is in no acute distress. Not having chest pain. I considered the following differential diagnosis: ACS, arrhythmia, anemia, electrolyte disturbance, PE, aortic dissection I obtained a broad lab and imaging to further determine if the patient was suffering from a life-threatening etiology. Patient did receive nitroglycerin and aspirin so I gave Toradol for additional pain relief. ALL IMAGES (IF OBTAINED) HAVE BEEN PERSONALLY REVIEWED AND INTERPRETED BY MYSELF. CBC with no leukocytosis, no anemia or thrombocytopenia CMP without evidence of acute kidney injury, significant electrolyte abnormality, anion gap to suggest end organ hypo-perfusion, no evidence of metabolic acidosis with a normal bicarbonate, no evidence of hepatobiliary obstructive pathology. High-sensitivity troponin is negative, no evidence of myocardial ischemia I have personally reviewed the patient's chest x-ray. Chest x-ray is unremarkable for pulmonary edema, pneumothorax, pneumonia or focal cardiopulmonary abnormality. EKG with normal sinus rhythm rate of 77, left axis deviation, normal intervals, no STEMI. Similar compared to EKG from October 21, 2024 Awaiting 2nd troponin. Given second visit, advanced age and multiple cardiovascular comorbidities patient will be admitted to PCU observation under Dr. Little for stress test andcardiology consultation The patient and/or family, caregivers express understanding. [...] which required my urgent intervention. Impression: 1. Chest pain 2. History of CAD 3. History of atrial fibrillation 4. Chronic anticoagulation Dispo: admit to PCU This note was generated with Q-Layer dictation software. It may contain incorrectwords, spelling, and punctuation that were not noted in review of the chart prior to signing. Lab Data Labs: Laboratory Results - last 24 hr 10/25/24 12:12 WBC 6.6 RBC 4.79 Hgb 14.2 Hct 43.7 MCV 91.2 MCH 29.6 MCHC 32.5 RDW Std Deviation 43.1 RDW Coeff of Cory 13.0 Plt Count 232 MPV 10.1 Immature Gran % (Auto) 0.500 Neut % (Auto) 77.1 H Lymph % (Auto) 13.1 L Montague % (Auto) 7.9 Eos % (Auto) 1.1 Baso % (Auto) 0.3 Absolute Neuts (auto) 5.1 Absolute Lymphs (auto) 0.86 Nucleated RBC % 0 Sodium 139 Potassium 4.2 Chloride 104 Carbon Dioxide 25.4 Anion Gap 10 BUN 16 Creatinine 0.52 L Estim Creat Clear Calc 57.78 Est GFR (MDRD) Non-Af 94 BUN/Creatinine Ratio 31.8 H Glucose 141 H Calcium 10.2 Total Bilirubin 0.78 AST 17 ALT 14 Alkaline Phosphatase 103 Troponin T High Sens 21 H Total Protein 6.0 Albumin 3.4 Globulin 2.7 Albumin/Globulin Ratio 1.2 Radiography Diagnostic Testing: Clinical Impression(s) from Imaging Studies Chest X-Ray 10/25/24 14:06 IMPRESSION: No significant change since last exam. Reading Location: [facility] Discharge Plan Triage Chief Complaint: Chest Pain ED Provider: Jaylen Jack Dx/Rx/DC Orders Prescriptions: No Action nitroglycerin 0.4 mg tablet, [...] mg PO QHS Patient Comments: [facility] levothyroxine 75 mcg tablet 75 mcg PO DAILY potassium gluconate 595 mg (99 mg) tablet 595 mg PO DAILY atorvastatin 40 mg tablet 40 mg PO QHS Qty: 90 3RF omeprazole 20 mg capsule,delayed release(DR/EC) 20 mg PO DAILY Qty: 90 3RF Eliquis 5 mg tablet 5 mg PO BID Qty: 60 11RF diltiazem HCl [Tiadylt ER] 120 mg capsule,extended release 24 hr 120 mg PO QAM Qty: 30 3RF Primary Care Provider: Brayan Thompson Referrals: Care Physician,No Primary [Non-Staff] - Print Language: Burkinan What to do if you have Problems For any increased pain, shortness of breath, bleeding, nausea or vomiting, chestpain, or any unexpected problems, contact your Primary Care Provider. Call [facility] ([phone]) or report to the closest Emergency Room. Call 911 if necessary. 10/25/24 1621 <Electronically signed by Jaylen Jack DO> Cosigner Signature (if applicable): CC: Dr. Brayan Thompson MD ~ Signed [facility] Work Phone: 1(553) 560-118808-22-2025 Radiology Diagnostic study note [facility] Imaging Services [address] [place] [address] Chest 1 View (Portable) MR#: [id number] Acct: [id number] Name: AYAN CARRILLO Rep #: [id number] : 1945 F 79 From: Remi Chu MD PCP: Care Physician,No Primary Status: REG ER Study:Chest 1 View (Portable) Date of Exam: 10/21/24 Exam# [id number] Ordering Dr: Donovan Pierson DO PROCEDURE: CHEST 1 VIEW (PORTABLE) 10/21/2024 REASON FOR EXAM: CHEST PAIN TECHNIQUE: Frontal view of the chest. COMPARISON: AP chest of 09/09/2024 RAD/Chest 1 View (Portable) IMPRESSION: Right upper quadrant abdominal surgical clips are again seen. Mild left hemidiaphragm elevation is again noted. Lungs appear clear of acute disease. No pleural effusion or pneumothorax is noted. The cardiomediastinal silhouette is stable, without significant cardiomegaly identified. Generalized osteopenia is again present. No acute osseous change is seen, although sensitivity is reduced by the degree of osteopenia. Reading Location: [place] [address] CC: Dr. Donovan Pierson DO; No Primary Care Physician ~ Rip Saw Operator: Signed [facility]07-11-2025 Discharge summary [facility] Medical Records Department [address] [place] [address] Emergency Department Summary 09/09/24 MR#: [id number] Acct: [id number] Name: AYAN CARRILLO Rep #:[id number] : 1945 79 From: Donovan Solomon PCP: [...] and back. Patient states she took a Prilosecat home which did not help. Patient states [...] Negative for Diabetes, Hypercholesterolemia, Family History 1' PE Risk Factors: Negative for Recent Travel/Surgery, Recent Immobilization, Prior DVT or PE, Cancer or OCP + Smoking + >/=35 PFSH PFSH Medical History Myocardial infarction Obesity Essential (primary) hypertension Atherosclerotic heart disease of [place] coronary artery without angina pectoris Hyperlipidemia GERD [...] Factors: 1 or 2 Risk Factors Troponin: Score: 3 MDM MDM MDM Narrative Medical decision making narrative: Differential diagnosis includes cardiac dysrhythmia, cardiac ischemia, congestive heart failure, pneumonia, bronchitis, gastroesophageal reflux disease, anxiety, and electrolyte abnormality. EKG willbe obtained to assess for cardiac dysrhythmia and cardiac ischemia. Chest x-ray will be obtained toassess for pneumonia and bronchitis. CBC will be [...] 70.3 H Lymph % (Auto) 17.2 L [place] % (Auto) 10.2 H Eos % (Auto) [...] IMPRESSION: No acute cardiopulmonary abnormality. Reading Location: [facility] Portable 1 view chest x-ray was obtained. [...] interpretation, it showed anormal sinus rhythm with arate of 64. DE interval, QRS interval, and QTc intervals were all normal. There is borderline left axis deviation at -18. There are no acute ST or T wave changes. Prior EKG tracings: available for review Prior: Unchanged (08/02/2024) Treatment and Re-Evaluation :: The patient was given aspirin by EMS. Patient was given nitroglycerin paste. Patient was advised ofher findings. Patient has a HEART score of [...] Patient was instructed to return if worse inany way. Patient understood and was agreeable with [...] 81 mg PO QHS Patient Comments: HEART [facility] meloxicam 15 mg tablet 15 mg PO DAILY atorvastatin 40 mg tablet 40 mg PO QHS Qty: 90 3RF omeprazole 20 mg capsule,delayed release(DR/EC) 20 mg PO DAILY Qty: 90 3RF Primary Care Provider: Lilly Fletcher Referrals: Lilly Fletcher MD [Primary Care Provider] - Print Language: Burkinan What to do if you have Problems For any increased pain, shortness of breath, bleeding, nausea or vomiting, chestpain, or any unexpected problems, contact your Primary Care Provider. Call [facility] ([phone]) or report tothe closest Emergency Room. Call 911 if necessary. 09/09/242228 Cosigner Signature (if applicable): CC: Dr. Lilly [...] vies follow-up with In outpatient setting. 09/09/24 230 Cosigner Signature (if applicable): cc: Dr. Lilly Fletcher MD ~* Signed [facility]07-11-2025 Radiology Diagnostic study note [facility] Imaging Services [address] [place] [address] [id number] Chest 1 View (Portable) MR#: [id number] Acct: [id number] Name: AYAN CARRILLO Rep #: [id number] : 1945 F 79 From: Josey Grider MD PCP: Dr. Lilly Fletcher MD Status: REG ER Study:Chest 1 View (Portable) Date of Exam: 09/09/24 Exam# [id number] Ordering Dr: Donovan Pierson DO PROCEDURE: CHEST 1 VIEW (PORTABLE) 09/09/2024 REASON FOR EXAM: CHEST PAIN TECHNIQUE: Frontal view of the chest. COMPARISON: Chest radiograph on 08/02/2024 FINDINGS: Hardware: There is a medical technologist chief overlying the mediastinum, new from prior. Heart: Cardiac and mediastinal contours are stable. Aortic atherosclerosis. Lungs: No focal consolidation or significant pleural effusion. Bones: Degenerative changes are identified within the thoracic spine. Surgical clips in the right upper quadrant of the abdomen. RAD/Chest 1 View (Portable) IMPRESSION: No acute cardiopulmonary abnormality. Reading Location: [id number] CC: Dr. Lilly Fletcher MD; Dr. Donovan Pierson DO ~ Rip Saw Operator: Signed [facility]07-11-2025 Discharge summary Author Donovan Pierson [facility] Note Date/Time September 09, 2024 11:0 6pm [facility] Medical Records Department [address] [place] [address] Emergency Department Summary 09/09/24 MR#: [id number] Acct: [id number] Name: AYAN CARRILLO Rep #:[id number] : 1945 79 From: Donovan Solomon PCP: [...] Essential (primary) hypertension Atherosclerotic heart disease of kar[place] coronary artery without angina pectoris Hyperlipidemia GERD [...] 70.3 H Lymph % (Auto) 17.2 L [place] % (Auto) 10.2 H Eos % (Auto) [...] IMPRESSION: No acute cardiopulmonary abnormality. Reading Location: [facility] Portable 1 view chest x-ray was obtained. [...] sinus rhythm with a rate of 64. DE interval, QRS interval, and QTc intervals were [...] mg PO QHS Patient Comments: [facility]ART [facility] meloxicam 15 mg tablet 15 mg PO DAILY atorvastatin 40 mg tablet 40 mg PO QHS Qty: 90 3RF omeprazole 20 mg capsule,delayed release(DR/EC) 20 mg PO DAILY Qty: 90 3RF Primary Care Provider: Lilly Fletcher Referrals: Lilly Fletcher MD [Primary Care Provider] - Print Language: Burkinan What to do if you have Problems For any increased pain, shortness of breath, bleeding, nausea or vomiting, chestpain, or any unexpected problems, contact your Primary Care Provider. Call [employer] [facility] ([phone]) or report to the closest Emergency Room. Call 911 if necessary. 09/09/242228 <Electronically signed by Donovan Pierson DO> Cosigner [...] cc: Dr. Lilly Fletcher MD ~* Signed [facility] Work Phone: 1(427) 987-775306-16-2025 Evaluation note* Diagnosis Onset Date Resolution Status Admit Date Dizziness acute August 15 3:23pm ANTHONY (dyspnea on exertion) acute August 15, 2024 3:23pm Atherosclerotic heart diseas e of kar[place] coronary artery without angina pectoris chronic August 15, 2024 3:23pm Essential (primary) hypertension chr onic August 15, 2024 3:23pm Hyperlipidemia chronic August 15, 2024 3:23pm Dizziness acute September 05, 2024 3:54pm ANTHONY (dyspnea on exertion) acute September 05, 2024 3:54pm Atherosclerotic heart diseas e of kar[place] coronary artery without angina pectoris chronic September 05, 2024 3 :54pm Essential (primary) hypertension chr onic September 05, 2024 3:54pm Hyperlipidemia chronic September 05, 2024 3:54pm [facility] Work Phone: 1(701) 423-882306-03-2025 Discharge summary [facility] Medical Records Department [address] [place] [address] Emergency Department Summary 08/02/24 MR#: [id number] Acct: [id number] Name: AYAN CARRILLO Rep #:[id number] : 1945 79 From: Jaylen Solomon PCP: Dr. Lilly Fletcher MD Status:REG ER Location: ED HPI History of Present Illness Chief Complaint: Weakness [facility] Medical History (Updated 08/02/24 @ 06:[address] Jaylen Jack DO) Myocardial infarction Obesity Essential (primary) hypertension Atherosclerotic heart disease of kar[place] coronary artery without angina pectoris Hyperlipidemia GERD [...] lightheadedness Atrial female history of of CAD, MS status post stent, hypertension, hyperlipidemia presents with [...] reviewed, Vital signs reviewed Constitutional: please see [facility] HENT: MMM Eyes: Pupils equal round [...] History obtained from others: Family Consults: none [facility] Narrative: Patient was initially hemodynamically stable, afebrile [...] Discharge home This note was generated with Q-Layer dictation software. It may contain incorrectwords, spelling, [...] 72.1 H Lymph % (Auto) 16.3 L [place] % (Auto) 9.1 Eos % (Auto) 1.5 [...] Sl. Cloudy Urine pH 6.0 Ur Specific [place] 1.020 Urine Protein 30 H Urine Glucose [...] evidence for acute brain abnormality. Reading Location: [place] [address] Chest X-Ray 08/02/24 04:55 IMPRESSION: Mild bilateral basilar atelectatic pulmonary changes. Reading Location: [place] [address] Discharge Plan Triage Chief Complaint: Weakness ED [...] an ultrasound of the heart(echocardiogram). Print Language: Burkinan What to do if you have Problems For any increased pain, shortness of breath, bleeding, nausea or vomiting, chestpain, or any unexpected problems, contact your Primary Care Provider. Call [facility] ([phone]) or report tothe closest Emergency Room. Call 911 if necessary. 08/02/24 0645 Cosigner Signature (if applicable): CC: Dr. Lilly Fletcher MD ~ Signed [facility]06-03-2025 Radiology Diagnostic study note [facility] Imaging Services [address] [place], [place] [address] Chest 1 View (Portable) MR#: [id number] Acct: [id number] Name: AYAN CARRILLO Rep #: [id number] : 1945 F 79 From: Barbara Miranda MD PCP: Dr. Lilly Fletcher MD Status: REG ER Study:Chest 1 View (Portable) Date of Exam: 08/02/24 Exam# [id number] Ordering Dr: Rod Jack DO PROCEDURE: CHEST [...] bilateral basilar atelectatic pulmonary changes. Reading Location: [place] [address] CC: Dr. Lilly Fletcher MD; Dr. Jaylen Jack DO ~ Rip Saw Operator: Signed [facility]06-03-2025 Radiology Diagnostic study note [facility] Imaging Services [address] [place] [address] [id number] Brain/Head without Contrast MR#: [id number] Acct: [id number] Name: AYAN CARRILLO Rep #: [id number] : 1945 F 79 From: Barbara Miranda MD PCP: Dr. Lilly Fletcher MD Status: REG ER Study:Brain/Head without Contrast Date of Exa m: 08/02/24 Exam# [id number] Ordering Dr: Rod Jack DO PROCEDURE: BRAIN/HEAD [...] evidence for acute brain abnormality. Reading Location: [place] [address] CC: Dr. Lilly Fletcher MD; Dr. Jaylen Jack DO ~ Rip Saw Operator: Signed [facility]04-19-2025 Discharge summary [facility] Medical Records Department [address] [place] [address] Emergency Department Summary 06/18/24 MR#: [id number] Acct: [id number] Name: AYAN CARRILLO Rep #:[id number] : 1945 78 From: Jennifer MAJOR PCP: [...] pain, shortness of breath, palpitations or syncope. [facility] Medical History Obesity Essential (primary) hypertension Atherosclerotic heart disease of [place] coronary artery without angina pectoris Hyperlipidemia GERD [...] 71.1 H Lymph % (Auto) 18.1 L [place] % (Auto) 9.1 Eos % (Auto) 1.0 [...] 71.1 H Lymph % (Auto) 18.1 L [place] % (Auto) 9.1 Eos % (Auto) 1.0 [...] - Activity Restrictions/Additional Instructions: Follow-up with your proofsheet corrector to address your low blood pressure. Keep a daily log. Ice and takeTylenol as needed. If symptoms worsen come back to theER. Print Language: Burkinan Disposition Disposition: Home, Self Care What to do if you have Problems For any increased pain, shortness of breath, bleeding, nausea or vomiting, chestpain, or any unexpected problems, contact your Primary Care Provider. Call [facility] ([phone]) or report tothe closest Emergency Room. Call 911 if necessary. 06/18/242157 Cosigner Signature (if applicable): 06/18/242158 CC: Dr. Lilly Fletcher MD ~ Signed [facility]04-19-2025 Discharge summary Author Jennifer Meléndez [facility] Note Date/Time June 18, 2024 9:5 9pm [facility] Medical Records Department [address] [facility] [facility] [place] [address] Emergency Department Summary 06/18/24 MR#: [id number] Acct: [id number] Name: AYAN CARRILLO Rep #:[id number] : 1945 78 From: Jennifer MAJOR PCP: [...] <PEDRITO Delacruz - Last Filed: 06/18/24 21:58> [facility] Medical History Obesity Essential (primary) hypertension Atherosclerotic heart disease of [place] coronary artery without angina pectoris Hyperlipidemia GERD [...] Oxygen Delivery Method Room Air Room Air [facility] <PEDRITO Delacruz - Last Filed: 06/18/24 21:58> [facility] Narrative Medical decision making narrative: 78-year-old [...] 71.1 H Lymph % (Auto) 18.1 L [place] % (Auto) 9.1 Eos % (Auto) 1.0 [...] Hair MD - Last Filed: 06/18/24 21:59> [facility] Narrative Medical decision making narrative: 78-year-old [...] 71.1 H Lymph % (Auto) 18.1 L [place] % (Auto) 9.1 Eos % (Auto) 1.0 [...] - Activity Restrictions/Additional Instructions: Follow-up with your proofsheet corrector to address your low blood pressure. Keep a daily log. Ice and take Tylenol as needed. If symptoms worsen come back to theER. Print Language: Burkinan Disposition Disposition: Home, Self Care What to do if you have Problems For any increased pain, shortness of breath, bleeding, nausea or vomiting, chestpain, or any unexpected problems, contact your Primary Care Provider. Call [facility] ([phone]) or report to the closest Emergency Room. Call 911 if necessary. 06/18/242157 <Electronically signed by Jennifer MAJOR> Cosigner Signature (if applicable): 06/18/242158 <Electronically signed by Jay Hair MD> CC: Dr. Lilly Fletcher MD ~ Signed [facility] Work Phone: Discharge summary Author Jaylen [facility] Note Date/Time August 02, 2024 6:45a m [facility] Medical Records Department [address] [place] [address] Emergency Department Summary 08/02/24 MR#: [id number] Acct: [id number] Name: AYAN CARRILLO Rep #:[id number] : 1945 79 From: Jaylen Solomon PCP: Dr. Lilly Fletcher MD Status:REG ER Location: ED HPI History of Present Illness Chief Complaint: Weakness [facility] Medical History (Updated 08/02/24 @ 06:[address] Jaylen Jack DO) Myocardial infarction Obesity Essential (primary) hypertension Atherosclerotic heart disease of [place] coronary artery without angina pectoris Hyperlipidemia GERD [...] lightheadedness Atrial female history of of CAD, MS status post stent, hypertension, hyperlipidemia presents with [...] reviewed, Vital signs reviewed Constitutional: please see [facility] HENT: MMM Eyes: Pupils equal round [...] MEDICAL DECISION MAKING: Chief Complaint: please see [facility] External records reviewed: Reviewed prior echocardiogram from 2023 showed ejection fraction 65%, stage I diastolic dysfunction but no regional wall motionabnormalities Factors affecting care: As per [facility] Social determinants of health: none History obtained from others: Family Consults: none [facility] Narrative: Patient was initially hemodynamically stable, afebrile [...] Discharge home This note was generated with Q-Layer dictation software. It may contain incorrectwords, spelling, [...] 72.1 H Lymph % (Auto) 16.3 L [place] % (Auto) 9.1 Eos % (Auto) 1.5 [...] Sl. Cloudy Urine pH 6.0 Ur Specific [place] 1.020 Urine Protein 30 H Urine Glucose [...] evidence for acute brain abnormality. Reading Location: [place] [address] Chest X-Ray 08/02/24 04:55 IMPRESSION: Mild bilateral basilar atelectatic pulmonary changes. Reading Location: [place] [address] Discharge Plan Triage Chief Complaint: Weakness ED [...] an ultrasound of the heart(echocardiogram). Print Language: Burkinan What to do if you have Problems For any increased pain, shortness of breath, bleeding, nausea or vomiting, chestpain, or any unexpected problems, contact your Primary Care Provider. Call [facility] ([phone]) or report to the closest Emergency Room. Call 911 if necessary. 08/02/24 0645 <Electronically signed by Jaylen Jack DO> Cosigner Signature (if applicable): CC: Dr. Lilly Fletcher MD ~ Signed [facility] Work Phone: Evaluation note* Diagnosis Onset Date Resolution Status Atherosclerotic heart diseas e of kar[place] coronary artery without angina pectoris chronic Essential (primary) hypertension chronic Hyperlipidemia chronic [facility] Work Phone: Evaluation noteNo assessment information available [facility] Work Phone: Evaluation note* Diagnosis Onset Date Resolution Status ANTHONY (dyspnea on exertion) ac erica Palpitations acute Atherosclerotic heart diseas e of kar[place] coronary artery without angina pectoris chronic Essential (primary) hypertension chronic Hyperlipidemia chronic [facility] Work Phone: Evaluation note* Diagnosis Onset Date Resolution Status Atherosclerotic heart diseas e of kar[place] coronary artery without angina pectoris chronic Essential (primary) hypertension chronic Hyperlipidemia chronic Cystitis acute [facility] Work Phone: Evaluation note* Diagnosis Onset Date Resolution Status Admit Date Dizziness acute August 15 3:23pm ANTHONY (dyspnea on exertion) acute August 15, 2024 3:23pm Atherosclerotic heart diseas e of [place] coronary artery without angina pectoris chronic August 15, 2024 3:23pm Essential (primary) hypertension chr onic August 15, 2024 3:23pm Hyperlipidemia chronic August 15, 2024 3:23pm [facility] Work Phone: Hospital Discharge instructions Additional Instructions Your work up today showed no sign of heart attack. I think your chest pain is from GERD or acid reflux. Continue your home medication and I prescribed Carafate to take before each meal and at bedtime. Please follow-up with your primary care doctor.[facility] Work Phone: Hospital Discharge instructions Additional Instructions Follow-up with your proofsheet corrector to address your low blood pressure. Keep a daily log. Ice and take Tylenol as needed. If symptoms worsen come back to the ER.[facility] Work Phone: Hospital Discharge instructions [...] about repeating an ultrasound of the heart (echocardiogram).[facility] Work Phone: Reason for referral (narrative)No reason for referral information availableW[facility] Work Phone: Chief Complaint and Reason for Visit Chief Complaint 6 M FU CAD - ANGIOPLASTY 2016 CAD - ANGIOPLASTY 2016 INT LABS Reason for Visit Atherosclerotic hear t disease of kar[place] coronary artery without angina pectoris Essential (primary) hypertension Hyperlipidemia Chief Complaint chest pain Chief Complaint chest pain 6 M FU PALPITATIONS Reason for Visit ANTHONY (dyspnea on exer tion) Palpitations Atherosclerotic heart disease of [place] coronary artery without angina pectoris Essential (primary) hypertension Hyperlipidemia Chief Complaint chest pain 6 M FU PALPITATIONS ANTHONY Reason for Visit ANTHONY (dyspnea on exer tion) Palpitations Atherosclerotic heart disease of [place] coronary artery without angina pectoris Essential (primary) hypertension Hyperlipidemia Chief Complaint chest pain 6 M FU PALPITATIONS ANTHONY EORDERS Reason for Visit ANTHONY (dyspnea on exer tion) Palpitations Atherosclerotic heart disease of [place] coronary artery without angina pectoris Essential (primary) hypertension Hyperlipidemia Chief Complaint 6 M FU Reason for Visit Atherosclerotic hear t disease of kar[place] coronary artery without angina pectoris Essential (primary) hypertension Hyperlipidemia Chief Complaint 6 M FU CONCERN FOR UTI Reason for Visit Atherosclerotic hear t disease of kar[place] coronary artery without angina pectoris Essential (primary) hypertension Hyperlipidemia Cystitis Chief Complaint Admit Date fall June 18, 2024 8:3 3pm Chief Complaint Admit [...] 15 3:23pm Atherosclerotic heart diseas e of kar[place] coronary artery without angina pectoris August 15, [...] 15 3:23pm Atherosclerotic heart diseas e of kar[place] coronary artery without angina pectoris August 15, 2024 3:23pm Essential (primary) hypertension August 152024 3:23pm Hyperlipidemia August 15, 2024 3:23 pm Dizziness September 05, 2024 3:54p m ANTHONY (dyspnea on exertion) September 05, 2024 3:54pm Atherosclerotic heart diseas e of kar[place] coronary artery without angina pectoris September 05, 2024 3:54pm Essential (primary) hypertension August 3:54pm Hyperlipidemia September 05, 2024 3:54p m Chief Complaint Admit Date fallJune 18, 2024 8:3 3pm weakness August 02, 2024 3:41a m 6 M FU August 15, 2024 3:23 pm 4-6 WK FU September 05, 2024 3:54p m chest pain September 09, 2024 8:05 pm Chief Complaint Admit Date fallJune 18, 2024 8:3 3pm weakness August 02, 2024 3:41a m 6 M FU August 15, 2024 3:23 pm palpitations, dizziness August 29, 2024 7:15am 4-6 WK FU September 05, 2024 3:54p m chest pain September 09, 2024 8:05 pm EORDERS October 01, 2024 9:4 4am Chief Complaint Admit Date fall June 18, 2024 8:3 3pm weakness August 02, 2024 3:41a m 6 M FU August 15, 2024 3:23 pm palpitations, dizziness August 29, 2024 7:15am 4-6 WK FU September 05, 2024 3:54p m chest pain September 09, 2024 8:05 pm EORDERS October 01, 2024 9:4 4am Heart racing October 14, 2024 12 :57pm Chief Complaint Admit Date weakness August 02, 2024 3:41a m 6 M FU August 15, 2024 3:23 pm palpitations, dizziness August 29, 2024 7:15am 4-6 WK FU September 05, 2024 3:54p m chest pain September 09, 2024 8:05 pm EORDERS October 01, 2024 9:4 4am Heart racing October 14, 2024 12 :57pm chest pain October 21, 2024 9: 39am Chief Complaint Admit Date weakness August 02, 2024 3:41a m 6 M FU August 15, 2024 3:23 pm palpitations, dizziness August 29, 2024 7:15am 4-6 WK FU September 05, 2024 3:54p m chest pain September 09, 2024 8:05 pm EORDERS October 01, 2024 9:4 4am Heart racing October 14, 2024 12 :57pm chest pain October 21, 2024 9: 39am CHEST PAIN W/U October 25, 2024 5: 18pm Family History Relationship Condition Age at Onset Recorded Date/T oli father Coronary artery disease Unknown mother Congestive heart failure Unknown sister Hypertension Unknown Advance Directives Advance Directive Response Recorded Date/ Time Advance Directives Yes October 25, 2015 5:48pm Living Will No August 03, 2020 1 :39pm Power of Rigging Supervisor No August 03, 2020 1:39pm Advance Directive Response Recorded Date/ Time Advance Directives Yes October 25, 2015 5:48pm Living Will Yes October 12 2:43pm Power of Rigging Supervisor Yes October 12 022 2:43pm Name of Medical Power of Rigging Supervisor daughter October 12, 2021 2:43pm Advance Directive Response Recorded Date/ Time Name of Medical Power of Rigging Supervisor daughter October 12, 2021 2:43pm Advance Directives Yes October 25, 2015 5:48pm Living Will Yes October 12 2 2:43pm Power of Rigging Supervisor Yes October 12, 2 022 2:43pm Advance Directive Response Recorded Date/ Time Name of Medical Power of Rigging Supervisor daughter October 12, 2021 1:43pm Advance Directives Yes October 25, 2015 4:48pm Living Will Yes October 12 1:43pm Power of Rigging Supervisor Yes October 12, 2 022 1:43pm Advance Directive Response Recorded Date/ Time Advance Directives Yes October 25, 2015 4:48pm Living Will Yes October 12 1:43pm Power of Rigging Supervisor Yes October 12 1:43pm Advance Directive Response Recorded Date/ Time Living Will Yes June 18, 2024 8:38pm Do you have a Healthcare Power of Rigging Supervisor? Yes June 18, 2024 8:38pm Name of Medical Power of Rigging Supervisor Cassandra June 18, 2024 8:38pm Advance Directives Yes October 25, 2015 5:48pm Advance Directive Response Recorded Date/ Time Living Will Yes June 18, 2024 8:38pm Do you have a Healthcare Power of Rigging Supervisor? Yes June 18, 2024 8:38pm Name of Medical Power of Rigging Supervisor Cassandra June 18, 2024 8:38pm Do you have a Healthcare Power of Rigging Supervisor? Yes August 02, 2024 3:44am Advance Directives Yes October 25, 2015 5:48pm Advance Directive Response Recorded Date/ Time Living Will No July 15, 2023 9 :56pm Do you have a Healthcare Power of Rigging Supervisor? No July 15, 2023 9:56pm Living Will Yes June 18, 2024 8:38pm Do you have a Healthcare Power of Rigging Supervisor? Yes June 18, 2024 8:38pm Name of Medical Power of Rigging Supervisor Cassandra June 18, 2024 8:38pm Do you have a Healthcare Power of Rigging Supervisor? Yes August 02, 2024 3:44am Advance Directives Yes October 25, 2015 5:48pm Advance Directive Response Recorded Date/ Time Living Will No July 15, 2023 9 :56pm Do you have a Healthcare Power of Rigging Supervisor? No July 15, 2023 9:56pm Living Will Yes June 18, 2024 8:38pm Do you have a Healthcare Power of Rigging Supervisor? Yes June 18, 2024 8:38pm Name of Medical Power of Rigging Supervisor Cassandra June 18, 2024 8:38pm Do you have a Healthcare Power of Rigging Supervisor? Yes August 02, 2024 3:44am Do you have a Healthcare Power of Rigging Supervisor? No September 09, 2024 8:09pm Advance Directives Yes October 25, 2015 5:48pm Advance Directive Response Recorded Date/ Time Living Will No July 15, 2023 9 :56pm Do you have a Healthcare Power of Rigging Supervisor? No July 15, 2023 9:56pm Do you have a Healthcare Power of Rigging Supervisor? No October 21, 2024 9:40am Do you have a Healthcare Power of Rigging Supervisor? Yes August 02, 2024 3:44am Do you have a Healthcare Power of Rigging Supervisor? No September 09, 2024 8:09pm Advance Directives Yes October 25, 2015 5:48pm Advance Directive Response Recorded Date/ Time Living Will No July 15, 2023 9 :56pm Do you have a Healthcare Power of Rigging Supervisor? No July 15, 2023 9:56pm Do you have a Healthcare Power of Rigging Supervisor? No October 21, 2024 9:40am Do you have a Healthcare Power of Rigging Supervisor? No October 25, 2024 12:05pm Do you have a Healthcare Power of Rigging Supervisor? Yes August 02, 2024 3:44am Do you have a Healthcare Power of Rigging Supervisor? No September 09, 2024 8:09pm Advance Directives [...] Dr. Lilly Fletcher MD Primary Care Provider, [facility] Provider Active Ginger Grace CROCHET BEADER, CROCHET BEADER-C Attending Provider Active Team Status: Inactive Member Role Status Dates Dr. Lilly Fletcher MD Primary Care Provider Active Ginger Grace CROCHET BEADER, CROCHET BEADER-C Attending Provider Active Team Status: Inactive Member Role Status Dates Dr. Lilly Fletcher MD Primary Care Provider, Referrin g Provider Active PEDRITO Gonzalez Attending Provider Active Team Status: Inactive Member Role Status Dates Dr. Lilly Fletcher MD Primary Care Provider Active PEDRTIO Gonzalez Attending Provider Active Team Status: Active [...] 2024 End: August 15, 2024 Kale Ansari CROCHET BEADER, CROCHET BEADER-C Attending Provider Active S tart: August 15, [...] 2024 End: August 15, 2024 Kale Ansari CROCHET BEADER, CROCHET BEADER-C Attending Provider Active S tart: August 15, 2024 End: August 15, 2024 Team Status: Inactive Member Role/Relationship Status Dates Dr. Lilly Fletcher MD Primary Care Provider Active Start: September 05, 2024 End: September 05, 2024 Dr. Lilly Fletcher MD Referring Provider Active Start: September 05, 2024 End: September 05, 2024 Kale Ansari CROCHET BEADER, CROCHET BEADER-C Attending Provider Active S tart: September 05, 2024 End: September 05, 2024 Team Status: Inactive Member Role/Relationship Status Dates Dr. Lilly Fletcher MD Primary Care Provider Active Start: September 09, 2024 End: September 09, 2024 Dr. Donovan Pierson DO Emergency Provider Active Start: September 09, 2024 End: September 09, 2024 Team Status: Active Member Role/Relationship Status Dates No Primary Care Physician Primary Care Provider Active Team Status: Active Member Role/Relationship Status Dates Dr. Lilly Fletcher MD Primary Care Provider Active Start: August 29, 2024 Kale Ansari CROCHET BEADER, CROCHET BEADER-C Attending Provider Active S tart: August 29, 2024 Kale Ansari CROCHET BEADER, CROCHET BEADER-C Referring Provider Active S tart: August 29, 2024 Team Status: Inactive Member Role/Relationship Status Dates Dr. Lilly Fletcher MD Primary Care Provider Active Start: September 05, 2024 End: September 05, 2024 Dr. Lilly Fletcher MD Referring Provider Active Start: September 05, 2024 End: September 05, 2024 Kale Ansari CROCHET BEADER, CROCHET BEADER-C Attending Provider Active S tart: September 05, 2024 End: September 05, 2024 Team Status: Inactive Member Role/Relationship Status Dates Dr. Lilly Fletcher MD Primary Care Provider Active Start: September 09, 2024 End: September 09, 2024 Dr. Donovan Pierson DO Attending Provider Active Start: September 09, 2024 End: September 09, 2024 Dr. Donovan Pierson DO Emergency Provider Active Start: September 09, 2024 End: September 09, 2024 Team Status: Inactive Member Role/Relationship Status Dates No Primary Care Physician Primary Care Provider Active Start: October 01, 2024 End: October 01, 2024 Kale Ansari CROCHET BEADER, CROCHET BEADER-C Attending Provider Active S tart: October 01, 2024 End: October 01, 2024 Kale Ansari CROCHET BEADER, CROCHET BEADER-C Referring Provider Active S tart: October 01, 2024 End: October 01, 2024 Team Status: Inactive Member Role/Relationship Status Dates No Primary Care Physician Primary Care Provider Active Start: October 14, 2024 End: October 14, 2024 No Primary Care Physician Referring Provider Active Start: October 14, 2024 End: October 14, 2024 Ginger Grace CROCHET BEADER, CROCHET BEADER-C Attending Provider Active Start: October 14, 2024 End: October 14, 2024 Team Status: Inactive Member Role/Relationship Status [...] 2024 End: August 15, 2024 Kale Ansari CROCHET BEADER, CROCHET BEADER-C Attending Provider Active S tart: August 15, 2024 End: August 15, 2024 Team Status: Active Member Role/Relationship Status Dates Dr. Lilly Fletcher MD Primary Care Provider Active Start: August 29, 2024 Kale Ansari CROCHET BEADER, CROCHET BEADER-C Attending Provider Active S tart: August 29, 2024 Kale Ansari CROCHET BEADER, CROCHET BEADER-C Referring Provider Active S tart: August 29, 2024 Team Status: Inactive Member Role/Relationship Status Dates Dr. Lilly Fletcher MD Primary Care Provider Active Start: September 09, 2024 End: September 09, 2024 Dr. Donovan Pierson DO Attending Provider Active Start: September 09, 2024 End: September 09, 2024 Dr. Donovan Pierson DO Emergency Provider Active Start: September 09, 2024 End: September 09, 2024 Team Status: Inactive Member Role/Relationship Status Dates No Primary Care Physician Primary Care Provider Active Start: October 01, 2024 End: October 01, 2024 Kale Ansari CROCHET BEADER, CROCHET BEADER-C Attending Provider Active S tart: October 01, 2024 End: October 01, 2024 Kale Ansari CROCHET BEADER, CROCHET BEADER-C Referring Provider Active S tart: October 01, 2024 End: October 01, 2024 Team Status: Inactive Member Role/Relationship Status Dates No Primary Care Physician Primary Care Provider Active Start: October 14, 2024 End: October 14, 2024 No Primary Care Physician Referring Provider Active Start: October 14, 2024 End: October 14, 2024 Ginger Grace CROCHET BEADER, CROCHET BEADER-C Attending Provider Active Start: October 14, 2024 End: October 14, 2024 Team Status: Inactive Member Role/Relationship Status Dates No Primary Care Physician Primary Care Provider Active Start: October 21, 2024 End: October 21, 2024 Dr. Donovan Pierson DO Emergency Provider Active Start: October 21, 2024 End: October 21, 2024 Team Status: Active Member Role/Relationship Status Dates Dr. Brayan Thompson MD Primary Care Provider Acti ve Team Status: Active Member Role/Relationship Status Dates Dr. Jaylen Jack DO Emergency Provider Active Start: October 25, 2024 Dr. Brayan Thompson MD Primary Care Provider Acti ve Start: October 25, 2024 Dr. Aranza Little MD Admit Provider Active Star t: October 25, 2024 Dr. Aranza Little MD Attending Provider Active Start: October 25, 2024 INFORMATION SOURCE (unrecogn ized section and content) DATE CREATED AUTHOR 10/25/2024 [facility] FOR RECORDS PERTAINING TO PATIENTS [...] BE BASED ON THE PRIMARY CLINICAL RECORDS. [employer] provides no warranty or guarantee of the accuracy or completeness of information in this document.
[2024-10-26 00:16] LABS: Mucous, Urine 0 SEEN /hpf (<or=2+)
[2024-10-26 00:20] LABS: Color, Urine Yellow (Yellow); Glucose, Dipstick Normal (Normal); Ketone-Dipstick Negative (Negative); Leukocyte Esterase-Dipstick Negative /ul (Negative); Nitrite-Dipstick Negative (Negative); Occult Blood-Urine Negative /ul (Negative); Protein-Dipstick 30 mg/dl (Negative); Specific Gravity, Urine 1.025 (1.002-1.030); Urine Bilirubin Dipstick Negative (Negative)
[2024-10-26 00:36] LABS: Squamous Epithelial Cells - UA 25-50 SEEN /hpf (5-10)
[2024-10-26 00:38] LABS: Calcium Oxalate Crystals Ur 3+ /hpf (<or=2+)
[2024-10-26 00:47] LABS: Red Blood Cells-Urine 0-5 SEEN /hpf (0-5); Transitional Epithelial - Ur 0-5 SEEN /hpf (0-5)
[2024-10-26 03:00] VITALS: BP 113/77; PULSE 72; RESP 18; TEMP 36.7; O2SAT 96
[2024-10-26 04:21] VITALS: BMI 36.9
[2024-10-26 05:02] LABS: Hematocrit 39.5 % (37-47); Hemoglobin 13.1 g/dL (12.0-15.0); Immature Granulocytes Count 0.010 X10^3/uL (0.0-0.0); Mean Corp Hgb Conc 33.2 g/dL (32-36); Mean Corpuscular Volume 91.6 fL (81-99); Mean Platelet Vol. 9.4 fl (6.2-12.0); NRBC Flagged by Analyzer 0 % (0-5); Platelet Count 170 K/mm3 (150-450); RBC Distribution Width CV 12.9 % (11.6-14.6); RBC Distribution Width SD 43.0 fl (35.1-43.9); Red Blood Count 4.31 M/mm3 (4.2-5.4); White Blood Count 6.4 K/mm3 (4.4-11.0)
[2024-10-26 05:31] LABS: Anion Gap 7 (5-15); BUN 16 mg/dL (4-19); BUN/Creat Ratio 31.8 RATIO (10-20); Calcium,Total 9.6 mg/dL (7.6-11.0); Carbon Dioxide 27.0 mmol/L (21.0-32.0); Chloride 105 mmol/L (98-108); Cholesterol 89 mg/dL (<=200); Estimated Creatinine Clearance 53.57 ml/min (50-250); Glucose 111 mg/dL (70-99); Low Density Lipoprotein Calc. 38 mg/dL; Potassium 4.3 mmol/L (3.3-5.1); Triglycerides 76 mg/dL; Very Low Density Lipoprotein 15 mg/dL (5-40); cholesterol:hdl ratio screen 2.49
[2024-10-26] MEDS: Aspirin E.C. 81 MG Tablet PO (05:40)
--- NOTE | 2024-10-26 13:09 | STRESSREP ---
Stress Test Report Pharmacologic/Lexiscan myocardial perfusion stress test. Indication; 79-year-old patient with history of CAD with previous PCI to the left circumflex artery History of atrial fibrillation. Presented with symptoms of chest pain and evaluated by Lexiscan sestamibi. Stress protocol: Resting EKG demonstrates. Normal sinus rhythm. 0.4 mg of regadenoson was infused per usual protocol followed by rapid intravenous saline flush injection continuous EKG monitoring was performed. The maximum heart rate attained was 114 bpm which was 81% of maximum predicted heart . Stress EKG showed[, no significant change from the resting EKG, with maximum heart rate of 114 bpm. Arrhythmia: Infrequent PACs Symptoms: Patient had no symptoms of chest pain Blood pressure at rest: 130/86 mmHg, blood pressure at the end of stress: 130/86 mmHg Myocardial perfusion protocol. [15 mCi ]of Technetium 99m Sestamibi was injected at rest. [ 0.4 mg ]of Regadenoson was infused per usual protocol peak infusion[43.7 mCi ]of Technetium 99m sestamibi was injected. Stress images were obtained stress and rest images were reconstructed and compared in the short axis vertical and horizontal long axis. Gated images were also obtained Perfusion SPECT analysis: Review of the images demonstrate normal uptake of sestamibi at rest, post stress images demonstrate similar uptake of sestamibi to the resting images, homogeneous tracer uptake With no evidence of reversible myocardial ischemia. Gated SPECT analysis: The gated ejection fraction is [75%]. Normal LV wall motion. With normal LV systolic function Conclusion: Negative Lexiscan sestamibi myocardial perfusion study for reversible myocardial ischemia Normal LV wall motion and normal LV systolic function. Naveen Franco MD,FACC,[facility] engineer second assistant
--- NOTE | 2024-10-26 14:16 | DCINST_ITS ---
Discharge Instructions DC O2, CPAP, BIPAP needs Home O2 Discharge instructions: No Dressing / Incision Discharge Activity: Return to Normal Activity Dressing / Incision Call your doctor if you observe: Fever of 101 or Higher, Shortness of breath, Dizziness, Fainting spells, Swelling in the ankles, Chest pain and Increased palpitations (irregular heartbeat) Follow Up Care Test Results: Test results from this visit will be discussed in further detail at your follow- up appointment, if applicable. Discharge Plan Admission Admit Date/Time: 10/25/24 17:18 Attending Provider: Seth Flores Primary Care Provider: Brayan Thompson Consulting Providers: Aranza Little Discharge Orders/Prescriptions Prescriptions: Continued nitroglycerin 0.4 mg tablet, sublingual 0.4 mg SUBLINGUAL Q5M PRN (Reason: Chest Pain) Qty: 25 2RF Patient Comments: chest pain carvedilol 25 mg tablet 25 mg PO BID Qty: 180 3RF Rx Instructions: must administer with a meal/food lisinopril 20 mg tablet 20 mg PO QHS Qty: 90 4RF aspirin 81 MG tablet,chewable 81 mg PO QHS Patient Comments: [facility] levothyroxine 75 mcg tablet 75 mcg PO DAILY potassium gluconate 595 mg (99 mg) tablet 595 mg PO DAILY atorvastatin 40 mg tablet 40 mg PO QHS Qty: 90 3RF omeprazole 20 mg capsule,delayed release(DR/EC) 20 mg PO DAILY Qty: 90 3RF Eliquis 5 mg tablet 5 mg PO BID Qty: 60 11RF diltiazem HCl [Tiadylt ER] 120 mg capsule,extended release 24 hr 120 mg PO QAM Qty: 30 3RF Referrals / Follow Up: Brayan Thompson MD [Primary Care Provider] - Within 1 Week Care Physician,No Primary [Non-Staff] - Disposition Disposition (needs filled in before D/C Order can be placed): Home, Self Care
--- NOTE | 2024-10-26 14:18 | CASEMGMT ---
Social Work- SW met with pt and dtr to discuss resources needed. Pt reports that she and dtr live in a home built in 1950. Pt reports there have been no updates done to the home and the home is now in disrepair with bad windows, porches falling off, and steps into the home that are difficult to navigate. Pt reports she needs a ramp for entry into home; dtr reports that she has called [employer] for help; however, they are unable to assist. Pt dtr reports that she and pt both are low income and unable to afford private pay. Pt reports that she would like therapy, but is unable to get in/out of the home for OP therapy. SW explained that pt would need to have a PCP for HHC. Pt reports that she does not have a PCP at this time. Pt interested in transportation, ramp, and home improvement resources. SW provided printables for [employer], [employer], [employer] card, ramps, transportation, [employer], [place], [employer]. SW remains available to follow. DARINEL Almodovar
[2024-10-26 14:55] VITALS: BP 122/78; PULSE 88; RESP 18; TEMP 36.4; O2SAT 94; O2SAT 95
[2024-10-26] MEDS: Ensure Plus High Protein 120 ML LIQUID PO (14:58)
--- NOTE | 2024-10-26 15:05 | PHA.DC.MR.R ---
Pharmacy [place] Med Reconciliation Pharmacy Service has performed discharge medication reconciliation for this patient. The patient's discharge medication list was reviewed for discrepancies and discrepancies were resolved. Medications at Discharge Home Medications aspirin 81 mg chewable tablet 81 mg PO QHS 10/25/15 nitroglycerin 0.4 mg sublingual tablet 0.4 mg sublingual Q5M PRN Chest Pain #25 tabs 08/10/23 atorvastatin 40 mg tablet 40 mg PO QHS #90 tabs 08/01/24 omeprazole 20 mg capsule,delayed release 20 mg PO DAILY #90 caps 08/01/24 carvedilol 25 mg tablet 25 mg PO BID Dose has been increased #180 tabs 08/15/24 lisinopril 20 mg tablet 20 mg PO QHS #90 tabs 08/15/24 apixaban 5 mg tablet (Eliquis) 5 mg PO BID #60 tabs 09/29/24 diltiazem HCl 120 mg capsule,24 hr,extended release (Tiadylt ER) 120 mg PO QAM #30 caps 10/14/24 levothyroxine 75 mcg tablet 75 mcg PO DAILY 10/25/24 potassium gluconate 595 mg (99 mg) tablet 595 mg PO DAILY 10/25/24
--- NOTE | 2024-10-26 16:10 | PCM.DC.SUM ---
Providers Date of Admission: 10/25/24 Primary Care Physician: Dr. Brayan Thompson MD Reason For Visit: CHEST PAIN W/U Diagnosis Discharge Diagnosis (1) Chest pain: Status: Acute Code(s): R07.9 - Chest pain, unspecified Medications at Discharge Home Medications aspirin 81 mg chewable tablet 81 mg PO QHS 10/25/15 nitroglycerin 0.4 mg sublingual tablet 0.4 mg sublingual Q5M PRN Chest Pain #25 tabs 08/10/23 atorvastatin 40 mg tablet 40 mg PO QHS #90 tabs 08/01/24 omeprazole 20 mg capsule,delayed release 20 mg PO DAILY #90 caps 08/01/24 carvedilol 25 mg tablet 25 mg PO BID Dose has been increased #180 tabs 08/15/24 lisinopril 20 mg tablet 20 mg PO QHS #90 tabs 08/15/24 apixaban 5 mg tablet (Eliquis) 5 mg PO BID #60 tabs 09/29/24 diltiazem HCl 120 mg capsule,24 hr,extended release (Tiadylt ER) 120 mg PO QAM #30 caps 10/14/24 levothyroxine 75 mcg tablet 75 mcg PO DAILY 10/25/24 potassium gluconate 595 mg (99 mg) tablet 595 mg PO DAILY 10/25/24 Hospital Course Operations None Procedures Nuclear stress test Summary of Care Provided Minutes Spent on Discharge: 32 Hospital Course: Per HPI: AYAN CARRILLO, is a 79-year-old female history of hypothyroidism, hypertension, A-fib, GERD presented [facility] ED 10/25/2024 due to chest pressure and tightness. She was here several days ago for similar symptoms but ultimately was discharged home in stable condition. This morning she ate and then developed chest pressure and tightness, it is not exertional and did not improve with nitro. No shortness of breath or other acute complaints. In the ED patient afebrile, heart rate of 83 and blood pressure 119/84, respiratory rate 16 and pulse ox 94% on room air. CBC with normal white count and hemoglobin, troponin of 21 with repeat of 15. CMP with a BUN of 16 creatinine 0.52, glucose 141. Chest x-ray no significant change from prior. Given patient's recurrent episode of chest pain cardiology contacted and recommended admission for stress test and to hold Eliquis in the event she needs a heart cath. Hospitalist contacted for admission. Patient evaluated bedside with daughter present. Patient fairly poor historian but sounds as though on Thursday she had an episode for about an hour where she had chest and back pain and also felt like her heart was racing which resolved on its own, today had the chest pressure and tightness after eating and noted some dizziness but daughter reports she frequently gets dizzy when she takes her medications though they have been trying to increase her protein intake as this seems to help. Patient additionally said on Thursday she had what seemed to be some blood in her urine and has also been complaining of black tarry stools over the past 2 to 3 weeks though over the weekend they seemed to be improving, denies any shortness of breath or cough, no fevers or chills, denies burning on urination, no nausea, no abdominal pain. Does have some swelling in her legs but notes that happens when she has not moved around much. Hospital Course: 1. Chest pain rule out?79-year-old female presented to the hospital with chest pressure and tightness. She had minimally elevated troponin with a nonischemic EKG and given her history she was sent for stress test today. The stress test was nonischemic and her chest pain had resolved, and echocardiogram demonstrated an EF of 55 to 60% with stage I diastolic dysfunction. I discussed with her and her daughter the possibility for discharge today they expressed understanding of the risks and benefits of going home and would like to go home today. No changes were made to her medications, there is some concern for possible blood in her stool at home however hemoglobin here was normal therefore any blood is likely minimal and therefore she can follow-up as an outpatient. She will continue with her Eliquis and her aspirin on discharge with outpatient follow-up. 2. Paroxysmal A-fib, history of coronary artery disease status post stenting, essential hypertension, hypothyroidism, GERD are all chronic medical conditions which complicate her care. Her home medications were continued where appropriate Physical Exam Narrative General: Alert, Oriented x3, Cooperative, No apparent distress HEENT: Atraumatic, PERRLA, EOMI, Normocephalic Oral: Moist Mucosa Neck: Supple, No JVD Lungs: Diminished, Normal air movement, No rhonchi, No wheeze, No rales Cardiovascular: Regular rate, Regular Rhythm, Normal S1, Normal S2, No murmurs Abdomen: Soft, Non Tender, Non-Distended, No Hepato-splenomegaly Extremities: Trace edema, Capillary Refill Less than 3 Seconds Skin: No rashes, No breakdown Musculoskeletal: No Tenderness to Palpation of Joints or Extremities Neurological: No focal neurological deficits, moves all extremities, sensation intact Psych/Mental Status: Normal Affect, Appropriate Weight / BMI Weight Weight: 182 lb 15.739 oz Body Mass Index (BMI) 36.9 ABG / Lab / Microbiology Data 10/26/24 04:48 10/26/24 04:48 Laboratory: Laboratory Results - last 24 hr 10/25/24 15:08: Troponin T Hi Sens 2 Hr 15 H 10/25/24 19:14: Troponin T Hi Sens 4Hr 18 H 10/25/24 22:20: Urine Color Yellow, Urine Clarity Sl. Cloudy, Urine pH 5.0, Ur Specific Egan 1.025, Urine Protein 30 H, Urine Glucose (UA) Normal, Urine Ketones Negative, Urine Occult Blood Negative, Urine Nitrite Negative, Urine Bilirubin Negative, Urine Urobilinogen Normal, Ur Leukocyte Esterase Negative, Urine RBC 0-5 SEEN, Urine WBC 0-5 SEEN, Ur Squamous Epith Cells 25-50 SEEN, Ur Transition Epith Cell 0-5 SEEN, Calcium Oxalate Crystal 3+, Urine Bacteria 2+, Hyaline Casts 0-5 SEEN, Urine Mucus 0 SEEN 10/26/24 04:48: WBC 6.4, RBC 4.31, Hgb 13.1, Hct 39.5, MCV 91.6, MCH 30.4, MCHC 33.2, RDW Std Deviation 43.0, RDW Coeff of Cory 12.9, Plt Count 170, MPV 9.4, Immature Gran % (Auto) 0.200, Neut % (Auto) 73.9 H, Lymph % (Auto) 13.8 L, Sharp % (Auto) 10.3 H, Eos % (Auto) 1.6, Baso % (Auto) 0.2, Absolute Neuts (auto) 4.7, Absolute Lymphs (auto) 0.88, Nucleated RBC % 0, Sodium 139, Potassium 4.3, Chloride 105, Carbon Dioxide 27.0, Anion Gap 7, BUN 16, Creatinine 0.49 L, Estim Creat Clear Calc 53.57, Est GFR (MDRD) Non-Af 95, BUN/Creatinine Ratio 31.8 H, Glucose 111 H, Calcium 9.6, Triglycerides 76, Cholesterol 89, LDL Cholesterol, Calc 38, VLDL Cholesterol 15, HDL Cholesterol 36 L, Cholesterol/HDL Ratio 2.49 Radiography Diagnostic Testing: Radiology Impression Echocardiogram 10/25/24 17:54 Interpretation Summary The estimated ejection fraction is 55???60 %. Stage I diastolic dysfunction Mild MR Mild to moderate TR No pericardial effusion. No significant change from previous echocardiogram. Ordering Physician: Aranza Little Performed By: Ahmet Fish RCS D/C Instructions Call your doctor if you observe: Fever of 101 or Higher, Shortness of breath, Dizziness, Fainting spells, Swelling in the ankles, Chest pain and Increased palpitations (irregular heartbeat) DC O2, CPAP, BIPAP Needs Home O2 Discharge instructions: No Meaningful Use Info Meaningful Use Meaningful Use Diagnoses (Choose all that apply): None applicable Discharge Plan Admission Admit Date/Time: 10/25/24 17:18 Attending Provider: Seth Flores Primary Care Provider: Brayan Thompson Consulting Providers: Aranza Little Discharge Orders/Prescriptions Prescriptions: Continued nitroglycerin 0.4 mg tablet, sublingual 0.4 mg SUBLINGUAL Q5M PRN (Reason: Chest Pain) Qty: 25 2RF Patient Comments: chest pain carvedilol 25 mg tablet 25 mg PO BID Qty: 180 3RF Rx Instructions: must administer with a meal/food lisinopril 20 mg tablet 20 mg PO QHS Qty: 90 4RF aspirin 81 MG tablet,chewable 81 mg PO QHS Patient Comments: [facility] levothyroxine 75 mcg tablet 75 mcg PO DAILY potassium gluconate 595 mg (99 mg) tablet 595 mg PO DAILY atorvastatin 40 mg tablet 40 mg PO QHS Qty: 90 3RF omeprazole 20 mg capsule,delayed release(DR/EC) 20 mg PO DAILY Qty: 90 3RF Eliquis 5 mg tablet 5 mg PO BID Qty: 60 11RF diltiazem HCl [Tiadylt ER] 120 mg capsule,extended release 24 hr 120 mg PO QAM Qty: 30 3RF Referrals / Follow Up: Brayan Thompson MD [Primary Care Provider] - Within 1 Week Care Physician,No Primary [Non-Staff] - Disposition Disposition (needs filled in before D/C Order can be placed): Home, Self Care Charges/Coding Visit Charges Inpatient E&M: 11167 Disch Hosp >30min
== END 2024-10-26 15:56 | disposition home or self-care (01) ==
LOC: ED 16:18 → PCU 17:21
PROVIDERS: Admitting Provider Internal Medicine; Emergency Provider Emergency Medicine; PCP Family Medicine; Visit Provider Family Medicine
DX: R07.89 Other chest pain (principal); I48.0 Paroxysmal atrial fibrillation; K21.9 Gastro-esophageal reflux disease without esophagitis; I10 Essential (primary) hypertension; R42 Dizziness and giddiness; Z79.82 Long term (current) use of aspirin; E78.5 Hyperlipidemia, unspecified; M79.89 Other specified soft tissue disorders; Z79.01 Long term (current) use of anticoagulants; I25.10 Atherosclerotic heart disease of native coronary artery without angina pectoris; Z79.899 Other long term (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; Z79.890 Hormone replacement therapy; E03.9 Hypothyroidism, unspecified
CPT/HCPCS: 36415; 71045; 78452; 80048; 80053; 80061; 81001; 84484; 85025; 87086; 87088; 93005; 93017; 93306; 96374; 96375; 99221; 99285; A9500; A4216; G0378; J2405

== ENCOUNTER → 2024-10-26 | Outpatient (CLI) | payer MEDICARE, SELFPAY | END | disposition home or self-care (01) | LOC: CVS 01-05 09:56 | PROVIDERS: PCP Family Medicine; Referring Provider Nurse Practitioner Family; Visit Provider Nurse Practitioner Family | DX: Z00.00 Encounter for general adult medical examination without abnormal findings (principal) | CPT/HCPCS: J2785 ==

== ENCOUNTER 2024-11-26 15:55 | Observation (INO) | payer MEDICARE, SELFPAY ==
[2024-11-26] VITALS (9 sets, daily range): BP systolic 120–148; BP diastolic 46–103; PULSE 66–83; RESP 16–22; TEMP 36.4; O2SAT 92–96; BMI 41.3; BMI 40.4
--- NOTE | 2024-11-26 16:26 | EKG12_ITS ---
Test Reason : Blood Pressure : */* mmHG Vent. Rate : 70 BPM Atrial Rate : 70 BPM P-R Int : 122 ms QRS Dur : 104 ms QT Int : 402 ms P-R-T Axes : 43 -20 20 degrees QTcB Int : 434 ms Normal sinus rhythm with sinus arrhythmia Cannot rule out Anterior infarct (cited on or before 25-Oct-2024) Abnormal ECG Confirmed by FRANKO CHIU ([id number]), newspaper or periodical editor KIRSTIN ARAIZA ([id number]) on 11/28/2024 8:42:40 AM Referred By: Confirmed By: FRANKO CHIU
--- NOTE | 2024-11-26 16:28 | CT_ITS ---
EXAM: CT BRAIN/HEAD WITHOUT CONTRAST; SPINE CERVICAL WITHOUT CONTRAST CLINICAL HISTORY: INJURY/PAIN; TRAUMA COMPARISON: None. TECHNIQUE: Noncontrast CT images of the head and cervical spine with multiplanar reconstructions. Dose reduction techniques were used including intermediate exposure control (AEC),iterative reconstruction technique, and/or mA and/or KV dose adjustments based on patient's size. FINDINGS: HEAD: No acute intracranial hemorrhage, extra-axial collection, mass effect or evidence of acute infarct. Moderate generalized brain parenchymal volume loss, and chronic microangiopathic changes in the supratentorial white matter. Unremarkable orbital contents. No acute skull base or calvarial fracture. No mastoid effusions. 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 CERVICAL SPINE: No acute fracture or subluxation. Straightening of the cervical lordosis is likely positional and/or degenerative in nature. Mild multilevel spondylotic changes with varying degrees of disc space narrowing, anterior osteophytosis, uncovertebral spurring and hypertrophic facet arthropathy. No prevertebral soft tissue swelling. The visualized lung apices are clear. CT/Brain/Head without Contrast IMPRESSION: No acute traumatic findings. Chronic/degenerative changes as described above. Reading Location: [id number]
--- NOTE | 2024-11-26 16:52 | EX.ED.DYSGE1 ---
HPI History of Present Illness Chief Complaint: Head Injury Informant: patient Narrative Narrative: Patient is a 79-year-old female with history of atrial fibrillation (on Eliquis), hypertension, coronary artery disease, hyperlipidemia, GERD and hypothyroidism presenting with generalized weakness with fall and head injury. Patient states she was going to the bathroom today when her legs felt weak and she fell to the ground. She did not lose conscious. She denies feeling she was about to pass out. She did hit her head as well as her right posterior shoulder area. She was unable to get herself up. She pushed her life alert and was brought in by EMS. Patient states she lives at home with her daughter but her daughter was at work so she was home alone. She states this was her second fall this week. She has has been having intermittent lightheadedness. She has had dyspnea on exertion which has been worsening this week. She states she can even walk to different room without having to take a break and rest. She feels short of breath talking. States she has chronic swelling of her legs but does not feel it is any worse than normal. Does not check her weights recently. States has been trying to drink a lot of fluids as her medications make her get dehydrated.. Patient also notes that she talked to cardiology this week because she felt that her carvedilol was too strong and they cut her dose in 2:30 or 3 days ago. Patient states she does not take diuretic but was under the impression that her Eliquis was diuretic. She denies any GI or symptoms. No other complaints or concerns reported at this time. Does report some nasal congestion this week. Denies any fevers or acute cough [facility] Medical History (Updated 11/27/24 @ 00:[address] Stephanie Kincaid, ) Morbid obesity with BMI of 40.0-44.9, adult Hypothyroidism GERD (gastroesophageal reflux disease) GI bleed Atrial fibrillation Hypertension Myocardial infarction Obesity Essential (primary) hypertension Atherosclerotic heart disease of [place] coronary artery without angina pectoris Hyperlipidemia GERD (gastroesophageal reflux disease) Osteoarthritis Home Medications ?Medication ?Instructions ?Recorded ?Last Taken ?Type aspirin 81 mg chewable tablet 81 mg PO QHS 10/25/15 10/24/24 History nitroglycerin 0.4 mg sublingual 0.4 mg sublingual Q5M PRN Chest 08/10/23 10/25/24 Rx tablet Pain #25 tabs atorvastatin 40 mg tablet 40 mg PO QHS #90 tabs 08/01/24 10/24/24 Rx omeprazole 20 mg capsule,delayed 20 mg PO DAILY #90 caps 08/01/24 10/25/24 Rx release lisinopril 20 mg tablet 20 mg PO QHS #90 tabs 08/15/24 10/24/24 Rx apixaban 5 mg tablet (Eliquis) 5 mg PO BID #60 tabs 09/29/24 10/25/24 Rx diltiazem HCl 120 mg capsule,24 120 mg PO QAM #30 caps 10/14/24 10/25/24 Rx hr,extended release (Tiadylt ER) levothyroxine 75 mcg tablet 75 mcg PO DAILY 10/25/24 10/25/24 History potassium gluconate 595 mg (99 mg) 595 mg PO DAILY 10/25/24 10/25/24 History tablet carvedilol 25 mg tablet 25 mg PO BID 11/26/24 Unknown History Allergy/AdvReac Type Severity Reaction Status Date / Time hydrochlorothiazide AdvReac Intermediate Constipatio Verified 11/26/24 15:58 n Family History Father CAD (coronary artery disease) Mother CHF (congestive heart failure) Sister Hypertension Surgical History History of appendectomy History of cholecystectomy History of left heart catheterization (06/04/08) History of coronary angioplasty (09/20/07) History of laparoscopic cholecystectomy History of total hysterectomy Social History housing: house Smoking Status: Never smoker alcohol intake: never substance use type: does not use ROS ROS ED Constitutional Constitutional ED: Denies chills or fever(s) ENT ENT ED: Reports other Details: dry mouth Cardiovascular Cardiovascular: Denies chest pain Respiratory/Chest Respiratory/Chest: Reports cough, dyspnea and dyspnea on exertion; Denies sputum Gastrointestinal Gastrointestinal: Denies abdominal pain, nausea or vomiting Genitourinary Genitourinary ED: Denies dysuria Musculoskeletal Musculoskeletal: Reports other Details: right shoulder pain Integumentary Denies Abrasions or rash Neurologic Neurologic: Reports weakness; Denies headache(s) or paresthesias Psychiatric Psychiatric: Reports anxiety Hematologic/Lymphatic Hematologic/Lymphatic: Reports easy bleeding, easy bruising and other Details: On Eliquis EXAM Physical Exam Const Vital Signs: 11/26/24 15:56 11/26/24 16:00 11/26/24 16:00 Temperature 97.6 F L Temperature Source Oral Pulse Rate 72 Pulse Rate [Lying] Pulse Rate [Sitting (for 1 minute prior to obtaining)] Pulse Rate [Standing (for 1 minute prior to obtaining)] Respiratory Rate 18 Respiratory Effort Normal Non-Labored Normal Non-Labored Respiratory Depth Normal Respiratory Pattern Normal Blood Pressure 148/103 H Blood Pressure [Lying] Blood Pressure [Sitting (for 1 minute prior to obtaining)] Blood Pressure [Standing (for 1 minute prior to obtaining)] Blood Pressure Mean 118 Blood Pressure Mean [Lying] Blood Pressure Mean [Sitting (for 1 minute prior to obtaining)] Blood Pressure Mean [Standing (for 1 minute prior to obtaining)] Pulse Ox 94 Oxygen Delivery Method Room Air Room Air 11/26/24 17:56 11/26/24 19:00 11/26/24 20:11 Temperature Temperature Source Pulse Rate 66 83 Pulse Rate [Lying] 69 Pulse Rate [Sitting (for 1 minute prior to obtaining)] 82 Pulse Rate [Standing (for 1 minute prior to obtaining)] 78 Respiratory Rate 18 Respiratory Effort Respiratory Depth Respiratory Pattern Blood Pressure 146/84 H 148/83 H Blood Pressure [Lying] 144/82 H Blood Pressure [Sitting (for 1 minute prior to obtaining)] 120/82 H Blood Pressure [Standing (for 1 minute prior to obtaining)] 122/46 H Blood Pressure Mean 104 104 Blood Pressure Mean [Lying] 102 Blood Pressure Mean [Sitting (for 1 minute prior to obtaining)] 94 Blood Pressure Mean [Standing (for 1 minute prior to obtaining)] 71 Pulse Ox 94 94 Oxygen Delivery Method Room Air Room Air 11/26/24 20:13 Temperature 97.6 F L Temperature Source Pulse Rate 82 Pulse Rate [Lying] Pulse Rate [Sitting (for 1 minute prior to obtaining)] Pulse Rate [Standing (for 1 minute prior to obtaining)] Respiratory Rate 20 H Respiratory Effort Respiratory Depth Respiratory Pattern Blood Pressure 120/82 H Blood Pressure [Lying] Blood Pressure [Sitting (for 1 minute prior to obtaining)] Blood Pressure [Standing (for 1 minute prior to obtaining)] Blood Pressure Mean 94 Blood Pressure Mean [Lying] Blood Pressure Mean [Sitting (for 1 minute prior to obtaining)] Blood Pressure Mean [Standing (for 1 minute prior to obtaining)] Pulse Ox 94 Oxygen Delivery Method Positive well nourished and well developed General Appearance ED: well developed and NAD HEENT Reports dry mucous membranes HEENT Narrative: No hemotympanum. No septal hematoma present. No signs of trauma to the scalp. Mouth ED: Yes dry mucous membranes Mouth: dry mucous membranes Eyes PERRL Neck supple and no JVD Chest Wall inspection of chest normal and palpation of chest normal Resp Resp Narrative: Tachypneic with conversational dyspnea. Auscultation: Negative for rhonchi, wheezes or diminished lung sounds Cardio regular rate, regular rhythm and no murmurs GI normal to inspection, nondistended, normoactive bowel sounds and non-tender Extremity normal to inspection Extremity Narrative: Pitting edema up to the knees present. Patient points to her right posterior shoulder as where she hit when she landed. There is no associated abrasion. No pinpoint bony tenderness over the clavicle or shoulder. Normal range of motion of the shoulder. Neuro oriented x3, CN's II-XII intact bilaterally and no sensory deficits noted Sensorium / Orientation: alert Motor Exam: strength 5/5 throughout and general weakness Psych mental status grossly normal Mood & Affect: anxious Skin no rashes or lesions noted and no wounds MDM MDM MDM Narrative Medical decision making narrative: Patient evaluated for generalized weakness and fall. She is coming from home. There is her second fall this week. She did hit her head is on anticoagulation with Coumadin. She does complain of worsening shortness of breath/dyspnea on exertion. Differential includes but not limited to intracranial hemorrhage, cervical spine fracture, pneumonia, pneumothorax, pleural effusion, debility, CHF exacerbation, YEIMY, urinary tract infection, pneumonia, symptomatic anemia. CBC, coags, BMP largely unremarkable. High-sensitivity troponin minimally elevated at 28 but on repeat is 27. BNP is normal at 517. Urinalysis shows contamination is not consistent with infection. Chest x-ray reviewed by myself as well as radiology does not show any acute process. EKG does not show any acute ischemic changes. Patient did not have any hypoxia in the emergency room. She is ambulated and in the ER and while she does not desaturate she is incredibly weak and was falls to the ground after taking a couple steps. She is quite tachypneic with this. It is unclear if she is having anxiety associated with this as well. Due to her debility, and inability to ambulate even with assistance of a rollator I do think she would benefit from admission for further workup and PT/OT evaluation. Patient and her daughter are quite agreeable with this plan of care. Case discussed with hospitalist for admission. Pulmonary emboli considered however patient is anticoagulant Eliquis so low suspicion for PE as a cause of her symptoms Lab Data Attestation: I reviewed the patient's lab results. Labs: Laboratory Results - last 24 hr 11/26/24 11/26/24 11/26/24 16:45 16:50 18:40 WBC 7.7 RBC 4.63 Hgb 13.7 Hct 41.7 MCV 90.1 MCH 29.6 MCHC 32.9 RDW Std Deviation 43.5 RDW Coeff of Cory 13.2 Plt Count 227 MPV 9.3 Immature Gran % (Auto) 0.300 Neut % (Auto) 79.7 H Lymph % (Auto) 9.7 L [place] % (Auto) 9.2 Eos % (Auto) 0.8 Baso % (Auto) 0.3 Absolute Neuts (auto) 6.2 Absolute Lymphs (auto) 0.75 L Nucleated RBC % 0 PT 15.8 H INR 1.2 APTT 29.2 Sodium 138 Potassium 4.8 Chloride 103 Carbon Dioxide 25.9 Anion Gap 9 BUN 16 Creatinine 0.53 L Estim Creat Clear Calc 57.00 Est GFR (MDRD) Non-Af 93 BUN/Creatinine Ratio 30.3 H Glucose 122 H Hemoglobin A1c 5.6 Calcium 10.1 Magnesium Troponin T High Sens 28 H D Troponin T Hi Sens 2 Hr 27 H Troponin T Hi Sens 4Hr NT pro BNP II 517 Vitamin B12 TSH Urine Color Yellow Urine Clarity Sl. Cloudy Urine pH 6.5 Ur Specific [place] 1.015 Urine Protein 15 H Urine Glucose (UA) Normal Urine Ketones Negative Urine Occult Blood 10 H Urine Nitrite Negative Urine Bilirubin Negative Urine Urobilinogen Normal Ur Leukocyte Esterase Negative Urine RBC 0-5 SEEN Urine WBC 0-5 SEEN Ur Squamous Epith Cells 10-25 SEEN Amorphous Sediment 1+ Urine Bacteria 2+ Urine Mucus 0 SEEN Urine Opiates Screen NEGATIVE U Buprenorphine Qual NEGATIVE Ur Oxycodone Screen NEGATIVE Urine Methadone Screen NEGATIVE Urine Fentanyl Screen NEGATIVE Ur Barbiturates Screen NEGATIVE Ur Phencyclidine Scrn NEGATIVE Ur Amphetamines Screen NEGATIVE U Benzodiazepines Scrn NEGATIVE Urine Cocaine Screen NEGATIVE U Cannabinoids Screen NEGATIVE 11/26/24 20:25 WBC RBC Hgb Hct MCV MCH MCHC RDW Std Deviation RDW Coeff of Cory Plt Count MPV Immature Gran % (Auto) Neut % (Auto) Lymph % (Auto) [place] % (Auto) Eos % (Auto) Baso % (Auto) Absolute Neuts (auto) Absolute Lymphs (auto) Nucleated RBC % PT INR APTT Sodium Potassium Chloride Carbon Dioxide Anion Gap BUN Creatinine Estim Creat Clear Calc Est GFR (MDRD) Non-Af BUN/Creatinine Ratio Glucose Hemoglobin A1c Calcium Magnesium 2.1 Troponin T High Sens Troponin T Hi Sens 2 Hr Troponin T Hi Sens 4Hr 29 H NT pro BNP II Vitamin B12 439 TSH < 0.005 L Urine Color Urine Clarity Urine pH Ur Specific [place] Urine Protein Urine Glucose (UA) Urine Ketones Urine Occult Blood Urine Nitrite Urine Bilirubin Urine Urobilinogen Ur Leukocyte Esterase Urine RBC Urine WBC Ur Squamous Epith Cells Amorphous Sediment Urine Bacteria Urine Mucus Urine Opiates Screen U Buprenorphine Qual Ur Oxycodone Screen Urine Methadone Screen Urine Fentanyl Screen Ur Barbiturates Screen Ur Phencyclidine Scrn Ur Amphetamines Screen U Benzodiazepines Scrn Urine Cocaine Screen U Cannabinoids Screen Radiography Chest X-Ray - ED: 2 View, Read by ED Physician, Read by Radiologist and No Acute Disease Diagnostic Testing: Clinical Impression(s) from Imaging Studies Brain CT 11/26/24 16:28 IMPRESSION: No acute traumatic findings. Chronic/degenerative changes as described above. Reading Location: [facility] Cervical Spine CT 11/26/24 17:01 IMPRESSION: No acute traumatic findings. Chronic/degenerative changes as described above. Reading Location: [facility] Chest X-Ray 11/26/24 17:10 IMPRESSION: No radiographic evidence of an acute cardiopulmonary process Reading Location: [id number] Rhythm Strip Rhythm Strip: Sinus Rhythm Rate: 70 Ectopy: None EKG Initial EKG: Attestation: I personally reviewed and interpreted this EKG as follows: Interpretation: Sinus Rhythm Comments: Normal sinus rhythm at a rate of 70 bpm with sinus arrhythmia Normal axis Normal intervals Normal ST segments No significant change compared to prior EKG on 10/26/2024 Management Discussion w/another healthcare provider: Hospitalist Discharge Plan Dx/Rx/DC Orders Clinical Impression: Frequent falls, Ambulatory dysfunction, Closed head injury without concussion, Generalized weakness, Current use of halfway anticoagulation Disposition Disposition: Acute Care Hospital [facility] Discharge Date/Time: 11/26/24 21:24
[2024-11-26 16:57] LABS: Hematocrit 41.7 % (37-47); Hemoglobin 13.7 g/dL (12.0-15.0); Immature Granulocytes Count 0.020 X10^3/uL (0.0-0.0); Mean Corp Hgb Conc 32.9 g/dL (32-36); Mean Corpuscular Volume 90.1 fL (81-99); Mean Platelet Vol. 9.3 fl (6.2-12.0); NRBC Flagged by Analyzer 0 % (0-5); Platelet Count 227 K/mm3 (150-450); RBC Distribution Width CV 13.2 % (11.6-14.6); RBC Distribution Width SD 43.5 fl (35.1-43.9); Red Blood Count 4.63 M/mm3 (4.2-5.4); White Blood Count 7.7 K/mm3 (4.4-11.0)
[2024-11-26 17:00] LABS: Mucous, Urine 0 SEEN /hpf (<or=2+)
--- NOTE | 2024-11-26 17:00 | CM.ED ---
Social Work Date of referral: 11/26/24 Reason for referral: Advanced Care Directives (ACD's) not on file Referred by: Social Work identification Patient provided consent for social work visit. Patient's daughter had a copy with her so social worker clinical made a copy for medical records. Patient also confirmed she already has an emergency response device with fall detection. Patient stated she is becoming weaker and feels that she may need rehab for physical therapy. Patient normally ambulates with a rollator however patient had a recent fall with her rollator due to generalized weakness. Patient advised to share concerns with doctor. Patient also short of breath. Gayle Huitron, SUBSTANCE ABUSE TECHNICIAN, PROJECT HIRE
--- NOTE | 2024-11-26 17:01 | CT_ITS ---
EXAM: CT BRAIN/HEAD WITHOUT CONTRAST; SPINE CERVICAL WITHOUT CONTRAST CLINICAL HISTORY: INJURY/PAIN; TRAUMA COMPARISON: None. TECHNIQUE: Noncontrast CT images of the head and cervical spine with multiplanar reconstructions. Dose reduction techniques were used including intermediate exposure control (AEC),iterative reconstruction technique, and/or mA and/or KV dose adjustments based on patient's size. FINDINGS: HEAD: No acute intracranial hemorrhage, extra-axial collection, mass effect or evidence of acute infarct. Moderate generalized brain parenchymal volume loss, and chronic microangiopathic changes in the supratentorial white matter. Unremarkable orbital contents. No acute skull base or calvarial fracture. No mastoid effusions. 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 CERVICAL SPINE: No acute fracture or subluxation. Straightening of the cervical lordosis is likely positional and/or degenerative in nature. Mild multilevel spondylotic changes with varying degrees of disc space narrowing, anterior osteophytosis, uncovertebral spurring and hypertrophic facet arthropathy. No prevertebral soft tissue swelling. The visualized lung apices are clear. CT/Spine Cervical without Contras IMPRESSION: No acute traumatic findings. Chronic/degenerative changes as described above. Reading Location: [id number]
[2024-11-26 17:07] LABS: Partial Thromboplast Time 29.2 Seconds (24.1-36.2); Prothrombin Time (Protime)PT. 15.8 SECONDS (11.7-14.9)
--- NOTE | 2024-11-26 17:10 | RAD_ITS ---
PROCEDURE: CHEST PA AND LATERAL 11/26/2024 REASON FOR EXAM: Chest pain TECHNIQUE: Procedure Code: RADCXR Modality: DX Procedure: CHEST PA AND LATERAL COMPARISON: Chest radiograph October 25, 2024 FINDINGS: Hardware: None Heart: Normal size Mediastinum: Normal appearance Lungs: Clear and expanded Bones: No destructive osseous process RAD/Chest PA and Lateral IMPRESSION: No radiographic evidence of an acute cardiopulmonary process Reading Location: [id number]
[2024-11-26 17:18] LABS: Anion Gap 9 (5-15); BUN 16 mg/dL (4-19); BUN/Creat Ratio 30.3 RATIO (10-20); Calcium,Total 10.1 mg/dL (7.6-11.0); Carbon Dioxide 25.9 mmol/L (21.0-32.0); Chloride 103 mmol/L (98-108); Estimated Creatinine Clearance 57.00 ml/min (50-250); Glucose 122 mg/dL (70-99); Potassium 4.8 mmol/L (3.3-5.1); Pro- Brain NATRIURETIC PEPTIDE 517 pg/mL (<=1800)
[2024-11-26 17:24] LABS: Color, Urine Yellow (Yellow); Glucose, Dipstick Normal (Normal); Ketone-Dipstick Negative (Negative); Leukocyte Esterase-Dipstick Negative /ul (Negative); Nitrite-Dipstick Negative (Negative); Occult Blood-Urine 10 /ul (Negative); Protein-Dipstick 15 mg/dl (Negative); Specific Gravity, Urine 1.015 (1.002-1.030); Urine Bilirubin Dipstick Negative (Negative)
[2024-11-26 17:38] LABS: Troponin T High Sensitivity 28 ng/L (<=14)
[2024-11-26 17:42] LABS: Red Blood Cells-Urine 0-5 SEEN /hpf (0-5); Squamous Epithelial Cells - UA 10-25 SEEN /hpf (5-10)
[2024-11-26 19:21] LABS: Troponin T High Sens 2 HR 27 ng/L (<=14)
--- NOTE | 2024-11-26 20:14 | PCM.HP.STD ---
[facility] - General General Date of Admission: 11/26/24 Date of Service: 11/26/24 Chief Complaint: Generalized Weakness, Fall and Head Injury. HPI Narrative AYAN CARRILLO, is a 79 F with a past medical history of essential hypertension; on carvedilol twice daily, hyperlipidemia; on atorvastatin, hypothyroidism; on levothyroxine, morbid (class III) obesity; with BMI 41.3 this admission, CAD; s/p MT, PAF; on diltiazem and apixaban twice daily, GERD; on omeprazole and OA who presents to [facility] ER complaining of generalized weakness with fall and closed head injury. Ms. Carrillo reports her symptoms began earlier this afternoon when she was walking to the bathroom and her legs suddenly became weak causing her to subsequently fall to the ground. She denies loss of consciousness with her fall but she does admit to hitting her head, thankfully without significant injury. She also admits to hitting her Right posterior shoulder area and was unable to get herself up so she pushed her Life-Alert button and activated EMS. Patient informed the ER physician that she lives with her daughter who works during the day causing her to be left at home alone frequently. She also went on to state that this is her second fall this week with intermittent lightheadedness and dyspnea on exertion that has been worsening throughout the week. She now cannot walk more than a few feet without becoming severely short of breath which triggers heightened anxiety about falling with patient having to stop and rest even with minimal distances. She states she was recently seen by her head of quality who felt her carvedilol dose was too strong and they cut her dose ~3 days ago but her symptoms have persisted. She denies associated fever, chills, nausea, vomiting, diarrhea, constipation, abdominal pain, chest pain, palpitations, heart racing, dysuria, hematuria or rash - but she does admit to chronic lower extremity edema which is unchanged from previous. In the ER she was diagnosed with Generalized Weakness and Ambulatory Dysfunction causing increasingly Frequent Falls complicated by PAF; on apixaban with patient becoming increasingly poor candidate for DOAC therapy and also likely in need of subacute rehabilitation versus ECF placement. She was noted to have otherwise unremarkable traumatic findings on imaging in addition to unremarkable vital signs and laboratory studies. She was then admitted to the general medical floor with telemetric monitoring under observation status for ongoing care for a stay that is expected to be less than 2 midnights. [facility] Medical History (Updated 11/27/24 @ 00:[address] Stephanie Kincaid, ) Morbid obesity with BMI of 40.0-44.9, adult Hypothyroidism GERD (gastroesophageal reflux disease) GI bleed Atrial fibrillation Hypertension Myocardial infarction Obesity Essential (primary) hypertension Atherosclerotic heart disease of nikolai coronary artery without angina pectoris Hyperlipidemia GERD (gastroesophageal reflux disease) Osteoarthritis Home Medications ?Medication ?Instructions ?Recorded ?Last Taken ?Type aspirin 81 mg chewable tablet 81 mg PO QHS 10/25/15 10/24/24 History nitroglycerin 0.4 mg sublingual 0.4 mg sublingual Q5M PRN Chest 08/10/23 10/25/24 Rx tablet Pain #25 tabs atorvastatin 40 mg tablet 40 mg PO QHS #90 tabs 08/01/24 10/24/24 Rx omeprazole 20 mg capsule,delayed 20 mg PO DAILY #90 caps 08/01/24 10/25/24 Rx release lisinopril 20 mg tablet 20 mg PO QHS #90 tabs 08/15/24 10/24/24 Rx apixaban 5 mg tablet (Eliquis) 5 mg PO BID #60 tabs 09/29/24 10/25/24 Rx diltiazem HCl 120 mg capsule,24 120 mg PO QAM #30 caps 10/14/24 10/25/24 Rx hr,extended release (Tiadylt ER) levothyroxine 75 mcg tablet 75 mcg PO DAILY 10/25/24 10/25/24 History potassium gluconate 595 mg (99 mg) 595 mg PO DAILY 10/25/24 10/25/24 History tablet carvedilol 25 mg tablet 25 mg PO BID 11/26/24 Unknown History Allergy/AdvReac Type Severity Reaction Status Date / Time hydrochlorothiazide AdvReac Intermediate Constipatio Verified 11/26/24 15:58 n Family History Father CAD (coronary artery disease) Mother CHF (congestive heart failure) Sister Hypertension Surgical History History of appendectomy History of cholecystectomy History of left heart catheterization (06/04/08) History of coronary angioplasty (09/20/07) History of laparoscopic cholecystectomy History of total hysterectomy Social History housing: house Smoking Status: Never smoker alcohol intake: never substance use type: does not use ROS ROS Narrative Review of Systems: Constitutional: Patient denies fever or chills. Eyes: Patient denies changes in vision or discharge from eyes. ENT: Patient denies runny nose, sore throat or ear pain. Resp: Patient admits to ANTHONY but she denies cough or wheezing. CV: Patient denies chest pain, palpitations, heart racing, syncope or LE edema. GI: Patient denies abdominal pain, nausea, vomiting, diarrhea or constipation. : Patient denies dysuria or hematuria. MSK: Patient admits to generalized weakness with ambulatory dysfunction as per HPI. Skin: Patient denies rash, abscess, wounds or jaundice. Psych: Patient admits to heightened anxiety but she denies SI or HI. Neuro: Patient denies headache, paresthesias or focal neurologic deficits. Allergy: Patient denies lip swelling, tongue swelling or urticaria. Hematology: Patient admits to easy bleeding and bruising on apixaban. Endocrinology: Patient denies polyuria, polydipsia, polyphagia or het/cold intolerance. 14 point ROS otherwise negative except for positives noted above in HPI. Vital Signs Vital Signs Vital Signs: 11/26/24 15:56 11/26/24 16:00 11/26/24 16:00 Temperature 97.6 F L Temperature Source Oral Pulse Rate 72 Pulse Rate [Lying] Pulse Rate [Sitting (for 1 minute prior to obtaining)] Pulse Rate [Standing (for 1 minute prior to obtaining)] Respiratory Rate 18 Respiratory Effort Normal Non-Labored Normal Non-Labored Respiratory Depth Normal Respiratory Pattern Normal Blood Pressure 148/103 H Blood Pressure [Lying] Blood Pressure [Sitting (for 1 minute prior to obtaining)] Blood Pressure [Standing (for 1 minute prior to obtaining)] Blood Pressure Mean 118 Blood Pressure Mean [Lying] Blood Pressure Mean [Sitting (for 1 minute prior to obtaining)] Blood Pressure Mean [Standing (for 1 minute prior to obtaining)] Pulse Ox 94 Oxygen Delivery Method Room Air Room Air 11/26/24 17:56 11/26/24 19:00 11/26/24 20:11 Temperature Temperature Source Pulse Rate 66 83 Pulse Rate [Lying] 78 Pulse Rate [Sitting (for 1 minute prior to obtaining)] 82 Pulse Rate [Standing (for 1 minute prior to obtaining)] 78 Respiratory Rate 18 Respiratory Effort Respiratory Depth Respiratory Pattern Blood Pressure 146/84 H 148/83 H Blood Pressure [Lying] 165/81 H Blood Pressure [Sitting (for 1 minute prior to obtaining)] 120/82 H Blood Pressure [Standing (for 1 minute prior to obtaining)] 122/46 H Blood Pressure Mean 104 104 Blood Pressure Mean [Lying] 109 Blood Pressure Mean [Sitting (for 1 minute prior to obtaining)] 94 Blood Pressure Mean [Standing (for 1 minute prior to obtaining)] 71 Pulse Ox 94 94 Oxygen Delivery Method Room Air Room Air 11/26/24 20:13 Temperature 97.6 F L Temperature Source Pulse Rate 82 Pulse Rate [Lying] Pulse Rate [Sitting (for 1 minute prior to obtaining)] Pulse Rate [Standing (for 1 minute prior to obtaining)] Respiratory Rate 20 H Respiratory Effort Respiratory Depth Respiratory Pattern Blood Pressure 120/82 H Blood Pressure [Lying] Blood Pressure [Sitting (for 1 minute prior to obtaining)] Blood Pressure [Standing (for 1 minute prior to obtaining)] Blood Pressure Mean 94 Blood Pressure Mean [Lying] Blood Pressure Mean [Sitting (for 1 minute prior to obtaining)] Blood Pressure Mean [Standing (for 1 minute prior to obtaining)] Pulse Ox 94 Oxygen Delivery Method Weight Weight: 204 lb 5.896 oz Body Mass Index (BMI) 41.3 Physical Exam Const alert, oriented x3 and no apparent distress Constitutional Narrative: Morbidly obese with chronically ill but nontoxic appearance. General Appearance: cooperative HEENT normocephalic, head/scalp atraumatic, hearing grossly normal bilaterally and moist oral mucous membranes Eyes PERRL, EOMs intact bilaterally and conjunctivae normal Neck no lymphadenopathy, supple and no JVD Resp normal respiratory effort, no retractions, no use of accessory muscles and clear to auscultation bilaterally Cardio regular rate and regular rhythm GI normal to inspection, nondistended, normoactive bowel sounds, soft to palpation, non-tender and non-distended GI Narrative: Obese. Extremity normal to inspection and full ROM Skin Skin Narrative: Patient has no evidence of rash, abscess, wounds or jaundice. Neuro oriented x3, CN's II-XII intact bilaterally, moves all extremities and no focal motor deficits Neuro Narrative: Patient is weak with knees buckling while attempting to ambulate just a few feet with severe associated anxiety about falling. Sensorium / Orientation: awake, alert, oriented to person, oriented to place and oriented to time Speech: speech normal Psych Mood & Affect: anxious Results Medical Records Data Attestation: I reviewed the patient's medical records Lab / Micro Data Attestation: I reviewed the patient's lab results. 11/27/24 03:48 11/27/24 03:48 Labs: Laboratory Results - last 24 hr 11/26/24 16:45: WBC 7.7, RBC 4.63, Hgb 13.7, Hct 41.7, MCV 90.1, MCH 29.6, MCHC 32.9, RDW Std Deviation 43.5, RDW Coeff of Cory 13.2, Plt Count 227, MPV 9.3, Immature Gran % (Auto) 0.300, Neut % (Auto) 79.7 H, Lymph % (Auto) 9.7 L, [place] % (Auto) 9.2, Eos % (Auto) 0.8, Baso % (Auto) 0.3, Absolute Neuts (auto) 6.2, Absolute Lymphs (auto) 0.75 L, Nucleated RBC % 0, PT 15.8 H, INR 1.2, APTT 29.2, Sodium 138, Potassium 4.8, Chloride 103, Carbon Dioxide 25.9, Anion Gap 9, BUN 16, Creatinine 0.53 L, Estim Creat Clear Calc 57.00, Est GFR (MDRD) Non-Af 93, BUN/Creatinine Ratio 30.3 H, Glucose 122 H, Calcium 10.1, Troponin T High Sens 28 H D, NT pro BNP II 517 11/26/24 16:50: Urine Color Yellow, Urine Clarity Sl. Cloudy, Urine pH 6.5, Ur Specific [place] 1.015, Urine Protein 15 H, Urine Glucose (UA) Normal, Urine Ketones Negative, Urine Occult Blood 10 H, Urine Nitrite Negative, Urine Bilirubin Negative, Urine Urobilinogen Normal, Ur Leukocyte Esterase Negative, Urine RBC 0-5 SEEN, Urine WBC 0-5 SEEN, Ur Squamous Epith Cells 10-25 SEEN, Amorphous Sediment 1+, Urine Bacteria 2+, Urine Mucus 0 SEEN 11/26/24 18:40: Troponin T Hi Sens 2 Hr 27 H Micro: Microbiology 11/26/24 16:45 Mucosa - Nose SARS-CoV-2, Influenza & RSV (PCR) - Final Imaging Radiology Impression Brain CT 11/26/24 16:28 IMPRESSION: No acute traumatic findings. Chronic/degenerative changes as described above. Reading Location: [facility] Cervical Spine CT 11/26/24 17:01 IMPRESSION: No acute traumatic findings. Chronic/degenerative changes as described above. Reading Location: [facility] Chest X-Ray 11/26/24 17:10 IMPRESSION: No radiographic evidence of an acute cardiopulmonary process Reading Location: [id number] Assessment & Plan Assessment/Plan (1) Frequent falls: (2) Generalized weakness: (3) Ambulatory dysfunction: (4) Closed head injury without concussion: QUALIFIERS: Encounter type: initial encounter Qualified Code(s): S09.90XA - Unspecified injury of head, initial encounter (5) Paroxysmal atrial fibrillation: (6) Morbid obesity with BMI of 40.0-44.9, adult: PLAN: Plan 1. Frequent Falls with Generalized Weakness, Ambulatory Dysfunction and Closed Head Injury - Admit to general medical floor with telemetric monitoring under observation status. Give acetaminophen prn for [id number] (level 1-5/10) pain or fever. Give oxycodone prn for severe (level 6-10/10) pain. PT/OT and Case Management to consult and treat on rounds in the AM for further recommendations with help appreciated in advance. 2. PAF; on diltiazem and apixaban BID complicating #1 - Patient is a becoming a poor candidate for anticoagulation due to increasingly frequent falls. Apixaban will need to be stopped if this trend of frequent falls continues as the risks outweigh any potential benefits. 3. Morbid (class III) obesity; with BMI 41.3 this admission adding to the burden of disease outlined in #1 & #2 - Weight loss will be recommended. Check TSH. This complicates her case and may hamper recovery. 4. Essential hypertension; on carvedilol twice daily - Maintain carvedilol as previous. 5. Hyperlipidemia; on atorvastatin - Hold statin in case of myotoxicity contributing to #1. Replace with alternative agent if her symptoms improve off statin. 6. Hypothyroidism; on levothyroxine - Continue levothyroxine and check TSH. 7. CAD; s/p MT - Noted. 8. GERD; on omeprazole - Maintain PPI. 9. OA - We will follow pain regimen and scales outlined in #1. 10. DVT prophylaxis - Patient already on apixaban for #2 which will be reluctantly continued for now. Total time: Approximately (but not less than) 70 minutes. Charges/Coding Visit Charges OBSV E&M: 22535 Observ/hosp same date L2
[2024-11-26 20:51] LABS: Troponin T High Sens 4 HR 29 ng/L (<=14)
[2024-11-26 21:10] LABS: Barbiturate Urine NEGATIVE (< 200 ng/mL); Benzodiazepine Urine NEGATIVE (< 200 ng/mL); PCP Urine NEGATIVE (< 25 ng/mL); THC Urine NEGATIVE (< 50 ng/mL)
[2024-11-26 21:14] LABS: Magnesium 2.1 mg/dL (1.5-2.2)
[2024-11-26 21:49] LABS: Alcohol, Blood (Medical)-Serum < 10.1 mg/dL (<=10.0)
[2024-11-26 22:20] LABS: FOLATES,SERUM (FOLIC ACID) 25.60 ng/mL (4.60-34.80)
[2024-11-26 22:50] LABS: Vitamin B12 439 pg/mL (180-914)
[2024-11-26] MEDS: APIXABAN 5 MG TABLET PO (23:11)
[2024-11-26] MEDS: 0.9% Normal Saline (1000mL) 1,000 ML 70 ML IV (23:33)
[2024-11-26] MEDS: MELATONIN 3 MG TABLET PO (23:36)
[2024-11-27] VITALS (10 sets, daily range): BP systolic 107–131; BP diastolic 56–78; PULSE 65–94; RESP 16–18; TEMP 36.4–36.8; O2SAT 95–99; BMI 40.3
[2024-11-27 04:51] LABS: Hematocrit 40.1 % (37-47); Hemoglobin 12.6 g/dL (12.0-15.0); Immature Granulocytes Count 0.030 X10^3/uL (0.0-0.0); Mean Corp Hgb Conc 31.4 g/dL (32-36); Mean Corpuscular Volume 92.4 fL (81-99); Mean Platelet Vol. 9.7 fl (6.2-12.0); NRBC Flagged by Analyzer 0 % (0-5); Platelet Count 221 K/mm3 (150-450); RBC Distribution Width CV 13.2 % (11.6-14.6); RBC Distribution Width SD 44.5 fl (35.1-43.9); Red Blood Count 4.34 M/mm3 (4.2-5.4); White Blood Count 7.2 K/mm3 (4.4-11.0)
[2024-11-27 04:57] LABS: AST(SGOT) 16 U/L (<=31); Alanine Aminotransfer ALT/SGPT 13 U/L (<=34); Albumin, Serum 3.1 g/dL (3.4-4.8); Alkaline Phosphatase 90 U/L (35-104); Anion Gap 9 (5-15); BUN 15 mg/dL (4-19); BUN/Creat Ratio 30.0 RATIO (10-20); Calcium,Total 9.9 mg/dL (7.6-11.0); Carbon Dioxide 25.3 mmol/L (21.0-32.0); Chloride 105 mmol/L (98-108); Cholesterol 90 mg/dL (<=200); Estimated Creatinine Clearance 56.35 ml/min (50-250); Globulin 2.4 g/dL (2.2-4.2); Glucose 111 mg/dL (70-99); Low Density Lipoprotein Calc. 35 mg/dL; Potassium 4.0 mmol/L (3.3-5.1); Triglycerides 84 mg/dL; Very Low Density Lipoprotein 17 mg/dL (5-40); cholesterol:hdl ratio screen 2.37
--- NOTE | 2024-11-27 08:47 | PCM.PN.HOSP ---
Reason for Visit Chief Complaint: Generalized Weakness, Fall and Head Injury. Objective Data Objective Data Vital Signs: Vital Signs Temp Pulse Resp BP Pulse Ox O2 Del Method O2 Flow Rate 98.0 F 76 18 131/78 H 98 Nasal Cannula 2 11/27/24 08:04 11/27/24 08:04 11/27/24 08:04 11/27/24 08:04 11/27/24 08:04 11/27/24 08:10 11/27/24 08:10 Oxygen Flow Rate (L/min) 2 Oxygen Delivery Method Nasal Cannula Weight: 200 lb 2.876 oz Body Mass Index (BMI) 40.3 Intake & Output: Intake and Output for Last 24 Hours 11/25/24 11/26/24 11/27/24 23:59 23:59 23:59 Intake Total 100 / 100 Balance 100 / 100 Lab / Micro Data 11/27/24 03:48 11/27/24 03:48 Labs: Laboratory Results - last 24 hr 11/26/24 16:45: WBC 7.7, RBC 4.63, Hgb 13.7, Hct 41.7, MCV 90.1, MCH 29.6, MCHC 32.9, RDW Std Deviation 43.5, RDW Coeff of Cory 13.2, Plt Count 227, MPV 9.3, Immature Gran % (Auto) 0.300, Neut % (Auto) 79.7 H, Lymph % (Auto) 9.7 L, [place] % (Auto) 9.2, Eos % (Auto) 0.8, Baso % (Auto) 0.3, Absolute Neuts (auto) 6.2, Absolute Lymphs (auto) 0.75 L, Nucleated RBC % 0, PT 15.8 H, INR 1.2, APTT 29.2, Sodium 138, Potassium 4.8, Chloride 103, Carbon Dioxide 25.9, Anion Gap 9, BUN 16, Creatinine 0.53 L, Estim Creat Clear Calc 57.00, Est GFR (MDRD) Non-Af 93, BUN/Creatinine Ratio 30.3 H, Glucose 122 H, Hemoglobin A1c 5.6, Calcium 10.1, Troponin T High Sens 28 H D, NT pro BNP II 517 11/26/24 16:50: Urine Color Yellow, Urine Clarity Sl. Cloudy, Urine pH 6.5, Ur Specific [place] 1.015, Urine Protein 15 H, Urine Glucose (UA) Normal, Urine Ketones Negative, Urine Occult Blood 10 H, Urine Nitrite Negative, Urine Bilirubin Negative, Urine Urobilinogen Normal, Ur Leukocyte Esterase Negative, Urine RBC 0-5 SEEN, Urine WBC 0-5 SEEN, Ur Squamous Epith Cells 10-25 SEEN, Amorphous Sediment 1+, Urine Bacteria 2+, Urine Mucus 0 SEEN, Urine Opiates Screen NEGATIVE, U Buprenorphine Qual NEGATIVE, Ur Oxycodone Screen NEGATIVE, Urine Methadone Screen NEGATIVE, Urine Fentanyl Screen NEGATIVE, Ur Barbiturates Screen NEGATIVE, Ur Phencyclidine Scrn NEGATIVE, Ur Amphetamines Screen NEGATIVE, U Benzodiazepines Scrn NEGATIVE, Urine Cocaine Screen NEGATIVE, U Cannabinoids Screen NEGATIVE 11/26/24 18:40: Troponin T Hi Sens 2 Hr 27 H 11/26/24 20:25: Magnesium 2.1, Troponin T Hi Sens 4Hr 29 H, Vitamin B12 439, TSH < 0.005 L 11/26/24 20:50: Serum Folate 25.60, Ethyl Alcohol < 10.1 11/27/24 03:48: WBC 7.2, RBC 4.34, Hgb 12.6, Hct 40.1, MCV 92.4, MCH 29.0, MCHC 31.4 L, RDW Std Deviation 44.5 H, RDW Coeff of Cory 13.2, Plt Count 221, MPV 9.7, Immature Gran % (Auto) 0.400, Neut % (Auto) 70.8 H, Lymph % (Auto) 14.1 L, [place] % (Auto) 13.4 H, Eos % (Auto) 1.0, Baso % (Auto) 0.3, Absolute Neuts (auto) 5.1, Absolute Lymphs (auto) 1.02, Nucleated RBC % 0, Sodium 139, Potassium 4.0, Chloride 105, Carbon Dioxide 25.3, Anion Gap 9, BUN 15, Creatinine 0.49 L, Estim Creat Clear Calc 56.35, Est GFR (MDRD) Non-Af 95, BUN/Creatinine Ratio 30.0 H, Glucose 111 H, Calcium 9.9, Phosphorus 3.9, Total Bilirubin 0.61, AST 16, ALT 13, Alkaline Phosphatase 90, Total Protein 5.5 L, Albumin 3.1 L, Globulin 2.4, Albumin/Globulin Ratio 1.3, Triglycerides 84, Cholesterol 90, LDL Cholesterol, Calc 35, VLDL Cholesterol 17, HDL Cholesterol 38 L, Cholesterol/HDL Ratio 2.37 Micro: Microbiology 11/26/24 16:45 Mucosa - Nose SARS-CoV-2, Influenza & RSV (PCR) - Final Radiography Diagnostic Testing: Radiology Impression Brain CT 11/26/24 16:28 IMPRESSION: No acute traumatic findings. Chronic/degenerative changes as described above. Reading Location: [facility] Cervical Spine CT 11/26/24 17:01 IMPRESSION: No acute traumatic findings. Chronic/degenerative changes as described above. Reading Location: [facility] Chest X-Ray 11/26/24 17:10 IMPRESSION: No radiographic evidence of an acute cardiopulmonary process Reading Location: [id number] Rhythm Strip Rhythm Strip: Sinus Rhythm Rate: 70 Ectopy: None Physical Exam Narrative Seen and examined. The patient was evaluated by PT and OT in the morning today. As per PT she felt little dizzy although patient denies it. She was also little off balance and required assist and got short of breath. Mild hypoxia, oxygen increased to 3 L after moving from bed to chair and then back to 2 L. Denies chronic lung disease including asthma COPD/interstitial lung disease. Does not use oxygen at home. No CPAP. No history of smoking. Denies chronic heart disease. No chest pain Bilateral leg swelling Physical exam General: Alert, Oriented x3, Cooperative. Morbid obesity BMI 40.4 kg/m? HEENT: Atraumatic, PERRLA, EOMI, Normocephalic. Oral: No Gingival or Mucosal Lesions/ Ulcerations Neck: Supple, No JVD, Negative Carotid Bruits Chest wall/Lungs: Air entry diminished in bilateral lung bases. No crepitation/rhonchi Cardiovascular: Regular rate and rhythm, Normal S1,S2, No M/G/R Abdomen: Bowel Sounds Present, Soft, Non Tender, Non-Distended : No dysuria. No renal angle tenderness. No suprapubic tenderness. Extremities: 2+ pedal edema below knee, Capillary Refill Less than 3 Seconds Skin: No rashes, No breakdown Musculoskeletal: Mild tenderness on palpation over pitting edema. Degenerative arthritic deformities of her knees and ankles. ROM restricted over knees. Neurological: Cranial nerves II-XII grossly intact, DTR 2+/4. No acute focal neurological deficit. Psych/Mental Status: Normal Affect, Appropriate. Assessment & Plan Assessment/Plan (1) Frequent falls: (2) Generalized weakness: (3) Ambulatory dysfunction: (4) Closed head injury without concussion: QUALIFIERS: Encounter type: initial encounter Qualified Code(s): S09.90XA - Unspecified injury of head, initial encounter (5) Paroxysmal atrial fibrillation: (6) Morbid obesity with BMI of 40.0-44.9, adult: PLAN: Plan 79-year-old female was admitted with increased weakness and multiple falls last week including on the day of admission. She felt her legs were weak, fell to the ground and hit her head on the cabinet. Denies LOC. On Eliquis. Chronic swelling of the legs at baseline with no recent worsening. 1. Frequent Falls with Generalized Weakness, Ambulatory Dysfunction and Closed Head Injury - Admit to general medical floor. Pain control with acetaminophen and low-dose oxycodone. Was evaluated by PT and felt mildly dizzy and short of breath and mild hypoxia. Chest x-ray daily reviewed and no acute cardiopulmonary process. Patient does not have acute respiratory symptoms of cough or sputum or symptoms of pneumonia. Incentive spirometry New mild hypoxia: Etiology unclear possible related to atelectasis/sleep apnea. Patient denies chronic lung disease or smoking or sleep apnea. CPAP ordered 2. PAF; on diltiazem and apixaban BID: On carvedilol and Eliquis 5 mg twice daily. 3. Morbid (class III) obesity; with BMI 41.3 KG per square meter on admission- Weight loss will be recommended. 4. Essential hypertension; on carvedilol twice daily - Maintain carvedilol as previous. 5. Hyperlipidemia; on atorvastatin - continue atorvastatin. Check CPK 6. Mild hyperthyroidism with history of acquired hypothyroidism; on levothyroxine - TSH very low, less than 0.005. Free T4: 2.10. Hold levothyroxine 3 days and decrease dose to 50 mcg daily. Recommend TSH and free T4 after 6 weeks. 7. CAD; s/p CT -on baby aspirin. If anemia will be issue, baby aspirin can be discontinued as patient already on Eliquis. 8. GERD; on omeprazole - Maintain PPI. 9. OA -PT and OT. 10. DVT prophylaxis - Patient already on apixaban for #2 which will be reluctantly continued for now. Microbiology Past 72 Hours 11/26/24 16:45 Mucosa - Nose SARS-CoV-2, Influenza & RSV (PCR) - Final Laboratory Results 11/26/24 16:45: WBC 7.7, RBC 4.63, Hgb 13.7, Hct 41.7, MCV 90.1, MCH 29.6, MCHC 32.9, RDW Std Deviation 43.5, RDW Coeff of Cory 13.2, Plt Count 227, MPV 9.3, Immature Gran % (Auto) 0.300, Neut % (Auto) 79.7 H, Lymph % (Auto) 9.7 L, [place] % (Auto) 9.2, Eos % (Auto) 0.8, Baso % (Auto) 0.3, Absolute Neuts (auto) 6.2, Absolute Lymphs (auto) 0.75 L, Nucleated RBC % 0, PT 15.8 H, INR 1.2, APTT 29.2, Sodium 138, Potassium 4.8, Chloride 103, Carbon Dioxide 25.9, Anion Gap 9, BUN 16, Creatinine 0.53 L, Estim Creat Clear Calc 57.00, Est GFR (MDRD) Non-Af 93, BUN/Creatinine Ratio 30.3 H, Glucose 122 H, Hemoglobin A1c 5.6, Calcium 10.1, Troponin T High Sens 28 H D, NT pro BNP II 517 11/26/24 16:50: Urine Color Yellow, Urine Clarity Sl. Cloudy, Urine pH 6.5, Ur Specific [place] 1.015, Urine Protein 15 H, Urine Glucose (UA) Normal, Urine Ketones Negative, Urine Occult Blood 10 H, Urine Nitrite Negative, Urine Bilirubin Negative, Urine Urobilinogen Normal, Ur Leukocyte Esterase Negative, Urine RBC 0-5 SEEN, Urine WBC 0-5 SEEN, Ur Squamous Epith Cells 10-25 SEEN, Amorphous Sediment 1+, Urine Bacteria 2+, Urine Mucus 0 SEEN, Urine Opiates Screen NEGATIVE, U Buprenorphine Qual NEGATIVE, Ur Oxycodone Screen NEGATIVE, Urine Methadone Screen NEGATIVE, Urine Fentanyl Screen NEGATIVE, Ur Barbiturates Screen NEGATIVE, Ur Phencyclidine Scrn NEGATIVE, Ur Amphetamines Screen NEGATIVE, U Benzodiazepines Scrn NEGATIVE, Urine Cocaine Screen NEGATIVE, U Cannabinoids Screen NEGATIVE 11/26/24 18:40: Troponin T Hi Sens 2 Hr 27 H 11/26/24 20:25: Magnesium 2.1, Troponin T Hi Sens 4Hr 29 H, Vitamin B12 439, TSH < 0.005 L 11/26/24 20:50: Serum Folate 25.60, Ethyl Alcohol < 10.1 11/27/24 03:48: WBC 7.2, RBC 4.34, Hgb 12.6, Hct 40.1, MCV 92.4, MCH 29.0, MCHC 31.4 L, RDW Std Deviation 44.5 H, RDW Coeff of Cory 13.2, Plt Count 221, MPV 9.7, Immature Gran % (Auto) 0.400, Neut % (Auto) 70.8 H, Lymph % (Auto) 14.1 L, [place] % (Auto) 13.4 H, Eos % (Auto) 1.0, Baso % (Auto) 0.3, Absolute Neuts (auto) 5.1, Absolute Lymphs (auto) 1.02, Nucleated RBC % 0, Sodium 139, Potassium 4.0, Chloride 105, Carbon Dioxide 25.3, Anion Gap 9, BUN 15, Creatinine 0.49 L, Estim Creat Clear Calc 56.35, Est GFR (MDRD) Non-Af 95, BUN/Creatinine Ratio 30.0 H, Glucose 111 H, Calcium 9.9, Phosphorus 3.9, Total Bilirubin 0.61, AST 16, ALT 13, Alkaline Phosphatase 90, Total Protein 5.5 L, Albumin 3.1 L, Globulin 2.4, Albumin/Globulin Ratio 1.3, Triglycerides 84, Cholesterol 90, LDL Cholesterol, Calc 35, VLDL Cholesterol 17, HDL Cholesterol 38 L, Cholesterol/HDL Ratio 2.37, Free T4 2.10 H Clinical Impression(s) from Imaging Studies Brain CT 11/26/24 16:28 IMPRESSION: No acute traumatic findings. Chronic/degenerative changes as described above. Reading Location: [id number] Cervical Spine CT 11/26/24 17:01 IMPRESSION: No acute traumatic findings. Chronic/degenerative changes as described above. Reading Location: [id number] Chest X-Ray 11/26/24 17:10 IMPRESSION: No radiographic evidence of an acute cardiopulmonary process Reading Location: [id number] Charges/Coding Visit Charges Inpatient E&M: 08447 Subs Hosp L2
[2024-11-27] MEDS: APIXABAN 5 MG TABLET PO ×2 (09:57→21:39)
[2024-11-27] MEDS: FLU VACCINE HIGH DOSE 25-26(65YR UP) 180 MCG/0.5 ML SYRINGE IM (10:02)
[2024-11-27 11:56] LABS: CPK Total, Creatine Kinase 27 U/L (24-195)
[2024-11-27] MEDS: 0.9% Saline Lock 10 ML Syringe IV ×2 (13:13→18:41)
[2024-11-27] MEDS: MELATONIN 3 MG TABLET PO (21:45)
[2024-11-28] VITALS (8 sets, daily range): BP systolic 89–127; BP diastolic 53–83; PULSE 59–82; RESP 16–18; TEMP 36.5–36.8; O2SAT 94–98; BMI 41.0
[2024-11-28] MEDS: 0.9% Saline Lock 10 ML Syringe IV (05:51)
[2024-11-28 07:56] LABS: Pro- Brain NATRIURETIC PEPTIDE 176 pg/mL (<=1800)
[2024-11-28 08:07] LABS: Hematocrit 41.3 % (37-47); Hemoglobin 12.8 g/dL (12.0-15.0); Immature Granulocytes Count 0.020 X10^3/uL (0.0-0.0); Mean Corp Hgb Conc 31.0 g/dL (32-36); Mean Corpuscular Volume 95.4 fL (81-99); Mean Platelet Vol. 9.9 fl (6.2-12.0); NRBC Flagged by Analyzer 0 % (0-5); POSITIVE DIFFERENTIAL YES; Platelet Count 242 K/mm3 (150-450); RBC Distribution Width CV 13.6 % (11.6-14.6); RBC Distribution Width SD 47.8 fl (35.1-43.9); Red Blood Count 4.33 M/mm3 (4.2-5.4); White Blood Count 7.4 K/mm3 (4.4-11.0)
[2024-11-28 08:16] LABS: Anion Gap 13 (5-15); BUN 21 mg/dL (4-19); BUN/Creat Ratio 35.0 RATIO (10-20); Calcium,Total 9.9 mg/dL (7.6-11.0); Carbon Dioxide 21.2 mmol/L (21.0-32.0); Chloride 102 mmol/L (98-108); Estimated Creatinine Clearance 56.86 ml/min (50-250); Glucose 125 mg/dL (70-99); Potassium 4.8 mmol/L (3.3-5.1)
[2024-11-28] MEDS: APIXABAN 5 MG TABLET PO ×2 (08:30→21:34)
[2024-11-28] MEDS: Albumin Human 25% (50 mL) 12.5 GM/50 ML IV.SOLN IV (08:31)
--- NOTE | 2024-11-28 08:55 | RAD_ITS ---
PROCEDURE: CHEST 1 VIEW (PORTABLE) 11/28/2024 REASON FOR EXAM: SOB TECHNIQUE: Frontal view of the chest. COMPARISON: November 26, 2024 FINDINGS: Hardware: None Heart: Normal-size. Aorta is atherosclerotic. Lungs: Lungs are hypoventilated. Platelike atelectasis left lower lobe. No pneumothorax or pleural effusion seen. Bones: Curvature thoracolumbar spine to the right. RAD/Chest 1 View (Portable) IMPRESSION: Hypoventilation. Atelectasis left lung base. Reading Location: [id number]
--- NOTE | 2024-11-28 09:52 | CASEMGMT ---
Discharge Planning A list of SNF providers including quality and resource use data and consistent with the patient's preferred geographic region, medical needs, and insurance network was created in [employer] Guide.? This list was provided to the SW. Sofie Panda Discharge Planning Asst.
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
--- NOTE | 2024-11-28 12:50 | CASEMGMT ---
Discharge Planning Referral sent to [facility]. Referral declined d/t no female beds. Sofie Panda DC Planning Asst.
--- NOTE | 2024-11-28 13:12 | CASEMGMT ---
Social Work [facility] will not have a bed until the end of the week. SW spoke w/pt and daughter Minnie, let them know that [facility] will not have a bed until the end of the week, asked for additional choices. Vee Hartman continued to emphasize that they were really wanting [facility]. SW again reiterated that pt cannot stay here until there is a bed, as pt is ready for discharge. SW asked them to review the list, and SW will return shortly for their additional choices. ALINE Wallace
--- NOTE | 2024-11-28 14:28 | CASEMGMT ---
Addendum entered by Sofie Panda 11/28/24 14:42: [facility] has accepted and will submit for precert. Sofie Panda DC Planning Asst. Original Note: Discharge Planning Referral sent to [facility]. Sofie Panda DC Planning Asst.
--- NOTE | 2024-11-28 14:40 | CASEMGMT ---
Addendum entered by Diana Garibay 11/28/24 15:01: Social Work SW let pt and daughter Minnie know that pt is accepted into [facility] and precert was started. ALINE Wallace Original Note: Social Work SW spoke w/pt, daughter Minnie and granddaughter Valery. They are all agreeable to a referral to [facility], and they hope once a bed opens at [facility] they will get pt transferred. SW explained they would need to illicit the help of [facility] and [facility] to make this happen. They all state understanding. SW let d/c strategy planning consultant know, she made referral and pt was accepted at [facility], will start precert. SW will continue to follow. ALINE Wallace
--- NOTE | 2024-11-28 16:52 | PN.HOSP_ITS ---
Reason for Visit Chief Complaint: Generalized Weakness, Fall and Head Injury. Objective Data Objective Data Vital Signs: Vital Signs Temp Pulse Resp BP Pulse Ox O2 Del Method O2 Flow Rate 97.8 F 70 16 106/60 97 Nasal Cannula 2 11/28/24 16:12 11/28/24 16:12 11/28/24 16:12 11/28/24 16:12 11/28/24 16:12 11/28/24 16:12 11/28/24 16:12 Oxygen Flow Rate (L/min) 2 Oxygen Delivery Method Nasal Cannula Weight: 203 lb 7.787 oz Body Mass Index (BMI) 41.0 Intake & Output: Intake and Output for Last 24 Hours 11/26/24 11/27/24 11/28/24 23:59 23:59 23:59 Intake Total 1653.17 / 1653.17 450 / 450 Output Total 475 / 475 450 / 450 Balance 1178.17 / 1178.17 0 / 0 Lab / Micro Data 11/28/24 05:34 11/28/24 05:34 Labs: Laboratory Results - last 24 hr 11/28/24 05:34: WBC 7.4, RBC 4.33, Hgb 12.8, Hct 41.3, MCV 95.4, MCH 29.6, MCHC 31.0 L, RDW Std Deviation 47.8 H, RDW Coeff of Cory 13.6, Plt Count 242, MPV 9.9, Immature Gran % (Auto) 0.300, Neut % (Auto) 79.4 H, Lymph % (Auto) 7.3 L, Limestone % (Auto) 11.3 H, Eos % (Auto) 1.3, Baso % (Auto) 0.4, Absolute Neuts (auto) 5.9, A bsolute Lymphs (auto) 0.54 L, Nucleated RBC % 0, Sodium 136, Potassium 4.8, Chloride 102, Carbon Dioxide 21.2, Anion Gap 13, BUN 21 H, Creatinine 0.59 L, Estim Creat Clear Calc 56.86, Est GFR (MDRD) Non-Af 91, BUN/Creatinine Ratio 35.0 H, Glucose 125 H, Calcium 9.9, Phosphorus 3.7, NT pro BNP II 176 Micro: Microbiology 11/26/24 16:45 Mucosa - Nose SARS-CoV-2, Influenza & RSV (PCR) - Final Radiography Diagnostic Testing: Radiology Impression Chest X-Ray 11/28/24 08:55 IMPRESSION: Hypoventilation. Atelectasis left lung base. Reading Location: [id number] Rhythm Strip Rhythm Strip: Sinus Rhythm Rate: 70 Ectopy: None Physical Exam Narrative Seen and examined. Patient was dizzy and lightheaded with low BP, and not voided yesterday since 1700, dropped BP to 89/53. Nighttime hospitalist ordered furosemide and albumin. Very weak. Denies chronic lung disease including asthma COPD/interstitial lung disease. Does not use oxygen at home. No CPAP. No history of smoking. Denies chronic heart disease. No chest pain Bilateral leg swelling Physical exam General: Alert, Oriented x3, Cooperative. Morbid obesity BMI 40.4 kg/m?. Fatigue HEENT: Atraumatic, PERRLA, EOMI, Normocephalic. Oral: No Gingival or Mucosal Lesions/ Ulcerations Neck: Supple, No JVD, Negative Carotid Bruits Chest wall/Lungs: Air entry diminished in bilateral lung bases. No crepitation/rhonchi Cardiovascular: Regular rate and rhythm, Normal S1,S2, No M/G/R Abdomen: Bowel Sounds Present, Soft, Non Tender, Non-Distended : No dysuria. No renal angle tenderness. No suprapubic tenderness. Extremities: 2+ pedal edema below knee, Capillary Refill Less than 3 Seconds Skin: No rashes, No breakdown Musculoskeletal: Mild tenderness on palpation over pitting edema. Degenerative arthritic deformities of her knees and ankles. ROM restricted over knees. Neurological: Cranial nerves II-XII grossly intact, DTR 2+/4. No acute focal neurological deficit. Psych/Mental Status: Flat affect Assessment & Plan Assessment/Plan (1) Frequent falls: (2) Generalized weakness: (3) Ambulatory dysfunction: (4) Closed head injury without concussion: QUALIFIERS: Encounter type: initial encounter Qualified Code(s): S09.90XA - Unspecified injury of head, initial encounter (5) Paroxysmal atrial fibrillation: (6) Morbid obesity with BMI of 40.0-44.9, adult: PLAN: Plan 79-year-old female was admitted with increased weakness and multiple falls last week including on the day of admission. She felt her legs were weak, fell to the ground and hit her head on the cabinet. Denies LOC. On Eliquis. Chronic swelling of the legs at baseline with no recent worsening. 1. Frequent Falls with Generalized Weakness, Ambulatory Dysfunction and Closed Head Injury and low BP- Admit to general medical floor. Pain control with acetaminophen and low-dose oxycodone. Was evaluated by PT and felt mildly dizzy and short of breath and mild hypoxia. Chest x-ray daily reviewed and no acute cardiopulmonary process. Patient does not have acute respiratory symptoms of cough or sputum or symptoms of pneumonia. Incentive spirometry 11/28: Low BP/intermittent hypotension: Patient was given IV albumin with Lasix last night. BP 110/79. Started on midodrine. Orthostatic BP ordered for tomorrow AM. Continue PT and OT with caution. New mild hypoxia: Etiology unclear possible related to atelectasis/sleep apnea. Patient denies chronic lung disease or smoking or sleep apnea. CPAP ordered 11/28: Chest x-ray shows left lung base atelectasis. Hypoventilation. 2. PAF; on diltiazem and apixaban BID: On carvedilol and Eliquis 5 mg twice daily. 3. Morbid (class III) obesity; with BMI 41.3 KG per square meter on admission- Weight loss recommended. 4. Essential hypertension; on carvedilol twice daily - Maintain carvedilol as previous. 5. Hyperlipidemia; on atorvastatin - continue atorvastatin. Check CPK 6. Mild hyperthyroidism with history of acquired hypothyroidism; on levothyroxine - TSH very low, less than 0.005. Free T4: 2.10. Hold levothyroxine 3 days and decrease dose to 50 mcg daily. Recommend TSH and free T4 after 6 weeks. 7. CAD; s/p [place] -on baby aspirin. If anemia will be issue, baby aspirin can be discontinued as patient already on Eliquis. 8. GERD; on omeprazole - Maintain PPI. 9. OA -PT and OT. 10. DVT prophylaxis - Patient already on apixaban for #2 which will be reluctantly continued for now. Microbiology Past 72 Hours 11/26/24 16:45 Mucosa - Nose SARS-CoV-2, Influenza & RSV (PCR) - Final Laboratory Results 11/28/24 05:34: WBC 7.4, RBC 4.33, Hgb 12.8, Hct 41.3, MCV 95.4, MCH 29.6, MCHC 31.0 L, RDW Std Deviation 47.8 H, RDW Coeff of Cory 13.6, Plt Count 242, MPV 9.9, Immature Gran % (Auto) 0.300, Neut % (Auto) 79.4 H, Lymph % (Auto) 7.3 L, Limestone % (Auto) 11.3 H, Eos % (Auto) 1.3, Baso % (Auto) 0.4, Absolute Neuts (auto) 5.9, A bsolute Lymphs (auto) 0.54 L, Nucleated RBC % 0, Sodium 136, Potassium 4.8, Chloride 102, Carbon Dioxide 21.2, Anion Gap 13, BUN 21 H, Creatinine 0.59 L, Estim Creat Clear Calc 56.86, Est GFR (MDRD) Non-Af 91, BUN/Creatinine Ratio 35.0 H, Glucose 125 H, Calcium 9.9, Phosphorus 3.7, NT pro BNP II 176 Laboratory Results 11/26/24 16:45: WBC 7.7, RBC 4.63, Hgb 13.7, Hct 41.7, MCV 90.1, MCH 29.6, MCHC 32.9, RDW Std Deviation 43.5, RDW Coeff of Cory 13.2, Plt Count 227, MPV 9.3, Immature Gran % (Auto) 0.300, Neut % (Auto) 79.7 H, Lymph % (Auto) 9.7 L, Limestone % (Auto) 9.2, Eos % (Auto) 0.8, Baso % (Auto) 0.3, Absolute Neuts (auto) 6.2, A bsolute Lymphs (auto) 0.75 L, Nucleated RBC % 0, PT 15.8 H, INR 1.2, APTT 29.2, Sodium 138, Potassium 4.8, Chloride 103, Carbon Dioxide 25.9, Anion Gap 9, BUN 16, Creatinine 0.53 L, Estim Creat Clear Calc 57.00, Est GFR (MDRD) Non-Af 93, B UN/Creatinine Ratio 30.3 H, Glucose 122 H, Hemoglobin A1c 5.6, Calcium 10.1, T roponin T High Sens 28 H D, NT pro BNP II 517 11/26/24 16:50: Urine Color Yellow, Urine Clarity Sl. Cloudy, Urine pH 6.5, Ur Specific Frontier 1.015, Urine Protein 15 H, Urine Glucose (UA) Normal, Urine Ketones Negative, Urine Occult Blood 10 H, Urine Nitrite Negative, Urine Bilirubin Negative, Urine Urobilinogen Normal, Ur Leukocyte Esterase Negative, Urine RBC 0-5 SEEN, Urine WBC 0-5 SEEN, Ur Squamous Epith Cells 10-25 SEEN, Amorphous Sediment 1+, Urine Bacteria 2+, Urine Mucus 0 SEEN, Urine Opiates Screen NEGATIVE, U Buprenorphine Qual NEGATIVE, Ur Oxycodone Screen NEGATIVE, Urine Methadone Screen NEGATIVE, Urine Fentanyl Screen NEGATIVE, Ur Barbiturates Screen NEGATIVE, Ur Phencyclidine Scrn NEGATIVE, Ur Amphetamines Screen NEGATIVE, U Benzodiazepines Scrn NEGATIVE, Urine Cocaine Screen NEGATIVE, U Cannabinoids Screen NEGATIVE 11/26/24 18:40: Troponin T Hi Sens 2 Hr 27 H 11/26/24 20:25: Magnesium 2.1, Troponin T Hi Sens 4Hr 29 H, Vitamin B12 439, TSH < 0.005 L 11/26/24 20:50: Serum Folate 25.60, Ethyl Alcohol < 10.1 11/27/24 03:48: WBC 7.2, RBC 4.34, Hgb 12.6, Hct 40.1, MCV 92.4, MCH 29.0, MCHC 31.4 L, RDW Std Deviation 44.5 H, RDW Coeff of Cory 13.2, Plt Count 221, MPV 9.7, Immature Gran % (Auto) 0.400, Neut % (Auto) 70.8 H, Lymph % (Auto) 14.1 L, Limestone % (Auto) 13.4 H, Eos % (Auto) 1.0, Baso % (Auto) 0.3, Absolute Neuts (auto) 5.1, Absolute Lymphs (auto) 1.02, Nucleated RBC % 0, Sodium 139, Potassium 4.0, Chloride 105, Carbon Dioxide 25.3, Anion Gap 9, BUN 15, Creatinine 0.49 L, Estim Creat Clear Calc 56.35, Est GFR (MDRD) Non-Af 95, BUN/Creatinine Ratio 30.0 H, G lucose 111 H, Calcium 9.9, Phosphorus 3.9, Total Bilirubin 0.61, AST 16, ALT 13, Alkaline Phosphatase 90, Total Protein 5.5 L, Albumin 3.1 L, Globulin 2.4, Albumin/Globulin Ratio 1.3, Triglycerides 84, Cholesterol 90, LDL Cholesterol, Calc 35, VLDL Cholesterol 17, HDL Cholesterol 38 L, Cholesterol/HDL Ratio 2.37, Free T4 2.10 H Clinical Impression(s) from Imaging Studies Brain CT 11/26/24 16:28 IMPRESSION: No acute traumatic findings. Chronic/degenerative changes as described above. Reading Location: [facility] Cervical Spine CT 11/26/24 17:01 IMPRESSION: No acute traumatic findings. Chronic/degenerative changes as described above. Reading Location: [facility] Chest X-Ray 11/26/24 17:10 IMPRESSION: No radiographic evidence of an acute cardiopulmonary process Reading Location: [id number] Charges/Coding Visit Charges Inpatient E&M: 21053 Subs Hosp L2
--- NOTE | 2024-11-28 17:10 | NURSING ---
mark up designer documentation reviewed.
[2024-11-28] MEDS: Arthritis Pain Compound 60 CLICK TUBE TOPICAL (21:34)
[2024-11-28] MEDS: MELATONIN 3 MG TABLET PO (21:36)
[2024-11-29] VITALS (8 sets, daily range): BP systolic 95–128; BP diastolic 48–67; PULSE 74–87; RESP 17–18; TEMP 36.2–36.9; O2SAT 95–100; BMI 41.4
[2024-11-29] MEDS: 0.9% Saline Lock 10 ML Syringe IV ×3 (02:41→21:09)
[2024-11-29] MEDS: APIXABAN 5 MG TABLET PO ×2 (08:58→22:04)
[2024-11-29] MEDS: Arthritis Pain Compound 60 CLICK TUBE TOPICAL ×2 (08:58→22:05)
--- NOTE | 2024-11-29 11:36 | CASEMGMT ---
ALFARO Met with patient to complete ALFARO form. ALFARO form and its content were verbally explained and patient's questions were answered to the best of my ability.? Patient voiced understanding and signed ALFARO form.? Patient provided a copy of signed ALFARO form and original placed in patient's chart.? Patient had no further questions. Sofie Panda, Discharge Planning Asst
--- NOTE | 2024-11-29 11:50 | CASEMGMT ---
Social Work - Discharge Planning Spoke with daughter Minnie Montilla who requested update on d/c plan. Minnie has to work today so has limited availability on answering the phone, but family wants to be involved when patient is d/c. Educated that precert started yesterday but no guarantee will have authorization back today. Minnie identified family to call if d/c is today and if tomorrow then Minnie. If discharge today call: granddaughter Shanti ) who will wake Valery ([phone]). Valery will be the family involved today. If discharge tomorrow call Minnie at [phone]. Plan: [facility], pending insurance precert. -FRAN Machado
--- NOTE | 2024-11-29 16:41 | PN.HOSP_ITS ---
Reason for Visit Chief Complaint: Generalized Weakness, Fall and Head Injury. Objective Data Objective Data Vital Signs: Vital Signs Temp Pulse Resp BP Pulse Ox O2 Del Method O2 Flow Rate 97.5 F L 75 18 109/55 L 96 Nasal Cannula 2 11/29/24 11:18 11/29/24 11:18 11/29/24 11:18 11/29/24 11:18 11/29/24 14:00 11/29/24 14:54 11/29/24 14:54 Oxygen Flow Rate (L/min) 2 Oxygen Delivery Method Nasal Cannula Weight: 205 lb 7.533 oz Body Mass Index (BMI) 41.4 Intake & Output: Intake and Output for Last 24 Hours 11/27/24 11/28/24 11/29/24 23:59 23:59 23:59 Intake Total 1653.17 / 1653.17 1190 / 1190 800 / 800 Output Total 475 / 475 750 / 750 Balance 1178.17 / 1178.17 440 / 440 800 / 800 Lab / Micro Data 11/28/24 05:34 11/28/24 05:34 Micro: Microbiology 11/26/24 16:45 Mucosa - Nose SARS-CoV-2, Influenza & RSV (PCR) - Final Rhythm Strip Rhythm Strip: Sinus Rhythm Rate: 70 Ectopy: None Physical Exam Narrative Seen and examined. Patient was dizzy and lightheaded even sometimes in the bed, but more on changing the position. Denies chronic lung disease including asthma COPD/interstitial lung disease. Does not use oxygen at home. No CPAP. No history of smoking. Denies chronic heart disease. No chest pain Bilateral leg swelling Physical exam General: Alert, Oriented x3, Cooperative. Morbid obesity BMI 40.4 kg/m?. Fatigue HEENT: Atraumatic, PERRLA, EOMI, Normocephalic. Oral: No Gingival or Mucosal Lesions/ Ulcerations Neck: Supple, No JVD, Negative Carotid Bruits Chest wall/Lungs: Air entry diminished in bilateral lung bases. No crepitation/rhonchi Cardiovascular: Regular rate and rhythm, Normal S1,S2, No M/G/R Abdomen: Bowel Sounds Present, Soft, Non Tender, Non-Distended : No dysuria. No renal angle tenderness. No suprapubic tenderness. Extremities: 1+ pedal edema below knee, Capillary Refill Less than 3 Seconds Skin: No rashes, No breakdown Musculoskeletal: Mild tenderness on palpation over pitting edema. Degenerative arthritic deformities of her knees and ankles. ROM restricted over knees. Neurological: Cranial nerves II-XII grossly intact, DTR 2+/4. No acute focal neurological deficit. Psych/Mental Status: Flat affect Assessment & Plan Assessment/Plan (1) Frequent falls: (2) Generalized weakness: (3) Ambulatory dysfunction: (4) Closed head injury without concussion: QUALIFIERS: Encounter type: initial encounter Qualified Code(s): S09.90XA - Unspecified injury of head, initial encounter (5) Paroxysmal atrial fibrillation: (6) Morbid obesity with BMI of 40.0-44.9, adult: PLAN: Plan 79-year-old female was admitted with increased weakness and multiple falls last week including on the day of admission. She felt her legs were weak, fell to the ground and hit her head on the cabinet. Denies LOC. On Eliquis. Chronic swelling of the legs at baseline with no recent worsening. 1. Frequent Falls with Generalized Weakness, Ambulatory Dysfunction and Closed Head Injury and low BP- Admit to general medical floor. Pain control with acetaminophen and low-dose oxycodone. Was evaluated by PT and felt mildly dizzy and short of breath and mild hypoxia. Chest x-ray daily reviewed and no acute cardiopulmonary process. Patient does not have acute respiratory symptoms of cough or sputum or symptoms of pneumonia. Incentive spirometry 11/28: Low BP/intermittent hypotension: Patient was given IV albumin with Lasix last night. BP 110/79. Started on midodrine. Orthostatic BP ordered for tomorrow AM. Continue PT and OT with caution. 11/29: Orthostatic blood pressure ordered. On 11/26 heart rate does not show significant change from lying to standing but blood pressure dropped from 144/80 to 122/46 about 20 m dropping systolic. New mild hypoxia: Etiology unclear possible related to atelectasis/sleep apnea. Patient denies chronic lung disease or smoking or sleep apnea. CPAP ordered 11/28: Chest x-ray shows left lung base atelectasis. Hypoventilation. 2. PAF; on Cardizem CD and apixaban BID: On carvedilol and Eliquis 5 mg twice daily. 11/29: Patient also on carvedilol 12.5 mg twice daily decreased to 6.25 mg twice daily with holding parameters. 3. Morbid (class III) obesity; with BMI 41.3 KG per square meter on admission- Weight loss recommended. 4. Essential hypertension; on carvedilol twice daily - Maintain carvedilol as previous. 5. Hyperlipidemia; on atorvastatin - continue atorvastatin. Check CPK 6. Mild hyperthyroidism with history of acquired hypothyroidism; on levothyroxine - TSH very low, less than 0.005. Free T4: 2.10. Hold levothyroxine 3 days and decrease dose to 50 mcg daily. Recommend TSH and free T4 after 6 weeks. 7. CAD; s/p [place] -on baby aspirin. If anemia will be issue, baby aspirin can be discontinued as patient already on Eliquis. 8. GERD; on omeprazole - Maintain PPI. 9. OA -PT and OT. 10. DVT prophylaxis - Patient already on apixaban for #2 which will be reluctantly continued for now. Microbiology Past 72 Hours 11/26/24 16:45 Mucosa - Nose SARS-CoV-2, Influenza & RSV (PCR) - Final 11/26/24 18:40: Troponin T Hi Sens 2 Hr 27 H 11/26/24 20:25: Magnesium 2.1, Troponin T Hi Sens 4Hr 29 H, Vitamin B12 439, TSH < 0.005 L 11/26/24 20:50: Serum Folate 25.60, Ethyl Alcohol < 10.1 11/27/24 03:48: WBC 7.2, RBC 4.34, Hgb 12.6, Hct 40.1, MCV 92.4, MCH 29.0, MCHC 31.4 L, RDW Std Deviation 44.5 H, RDW Coeff of Cory 13.2, Plt Count 221, MPV 9.7, Immature Gran % (Auto) 0.400, Neut % (Auto) 70.8 H, Lymph % (Auto) 14.1 L, [place]iss % (Auto) 13.4 H, Eos % (Auto) 1.0, Baso % (Auto) 0.3, Absolute Neuts (auto) 5.1, Absolute Lymphs (auto) 1.02, Nucleated RBC % 0, Sodium 139, Potassium 4.0, Chloride 105, Carbon Dioxide 25.3, Anion Gap 9, BUN 15, Creatinine 0.49 L, Estim Creat Clear Calc 56.35, Est GFR (MDRD) Non-Af 95, BUN/Creatinine Ratio 30.0 H, G lucose 111 H, Calcium 9.9, Phosphorus 3.9, Total Bilirubin 0.61, AST 16, ALT 13, Alkaline Phosphatase 90, Total Protein 5.5 L, Albumin 3.1 L, Globulin 2.4, Albumin/Globulin Ratio 1.3, Triglycerides 84, Cholesterol 90, LDL Cholesterol, Calc 35, VLDL Cholesterol 17, HDL Cholesterol 38 L, Cholesterol/HDL Ratio 2.37, Free T4 2.10 H Clinical Impression(s) from Imaging Studies Brain CT 11/26/24 16:28 IMPRESSION: No acute traumatic findings. Chronic/degenerative changes as described above. Reading Location: [id number] Cervical Spine CT 11/26/24 17:01 IMPRESSION: No acute traumatic findings. Chronic/degenerative changes as described above. Reading Location: [facility] Chest X-Ray 11/26/24 17:10 IMPRESSION: No radiographic evidence of an acute cardiopulmonary process Reading Location: [id number] Charges/Coding Visit Charges Inpatient E&M: 57618 Subs Hosp L2
[2024-11-29] MEDS: MELATONIN 3 MG TABLET PO (22:04)
[2024-11-30 02:41] VITALS: BP 124/56; PULSE 80; RESP 16; TEMP 36.8; O2SAT 100
[2024-11-30 05:16] VITALS: BMI 41.8
[2024-11-30 08:19] VITALS: BP 132/58; PULSE 70; RESP 15; TEMP 36.4; O2SAT 100
[2024-11-30] MEDS: APIXABAN 5 MG TABLET PO (08:23)
[2024-11-30] MEDS: Arthritis Pain Compound 60 CLICK TUBE TOPICAL (08:24)
--- NOTE | 2024-11-30 08:58 | CASEMGMT ---
Discharge Planning Updates sent to [place]. Precert remains pending. Sofie Panda DC Planning Asst.
[2024-11-30 09:53] VITALS: O2SAT 95
--- NOTE | 2024-11-30 10:13 | CASEMGMT ---
[facility] has obtained auth to admit. SW updated. Sofie Panda DC Planning Asst.
[2024-11-30 11:50] VITALS: BP 100/69; PULSE 96; RESP 18; TEMP 36.4; O2SAT 96
--- NOTE | 2024-11-30 14:34 | PCM.TXEXTCAR ---
Diet Diet Order/Speech Therapy: INPATIENT Hospital Diet / Speech Therapy Order(s) 11/26/24 22:01 Diet: Cardiac - Heart Healthy Food consistency:: Regular Liquid Consistency:: Regular/Thin Routine Orders/Code Status Suppository Type: Dulcolax 10mg Suppository Frequency: Daily PRN DC O2, CPAP, BIPAP needs Home O2 Discharge instructions: Yes Type of respiratory needs?: Oxygen Oxygen frequency: Continuous Continuous oxygen liters per minute: 2 Therapies Extremity Affected:: Bilateral Lower Physical Therapy: Eval and Treat Occupational Therapy: Eval and Treat Speech Therapy: Eval and Treat Problem/Diagnosis (1) Frequent falls: Status: Acute Code(s): R29.6 - Repeated falls (2) Generalized weakness: Status: Acute Code(s): R53.1 - Weakness (3) Ambulatory dysfunction: Status: Acute Code(s): R26.2 - Difficulty in walking, not elsewhere classified (4) Closed head injury without concussion: Status: Acute Code(s): S09.90XA - Unspecified injury of head, initial encounter (5) Paroxysmal atrial fibrillation: Status: Acute Code(s): I48.0 - Paroxysmal atrial fibrillation Comment: Event monitor August 2024; (6) Morbid obesity with BMI of 40.0-44.9, adult: Status: Acute Code(s): E66.01 - Morbid (severe) obesity due to excess calories; Z68.41 - Body mass index [BMI] 40.0-44.9, adult Plan 79-year-old female was admitted with increased weakness and multiple falls last week including on the day of admission. She felt her legs were weak, fell to the ground and hit her head on the cabinet. Denies LOC. On Eliquis. Chronic swelling of the legs at baseline with no recent worsening. 1. Frequent Falls with Generalized Weakness, Ambulatory Dysfunction and Closed Head Injury and low BP- Admit to general medical floor. Pain control with acetaminophen and low-dose oxycodone. Was evaluated by PT and felt mildly dizzy and short of breath and mild hypoxia. Chest x-ray daily reviewed and no acute cardiopulmonary process. Patient does not have acute respiratory symptoms of cough or sputum or symptoms of pneumonia. Incentive spirometry 11/28: Low BP/intermittent hypotension: Patient was given IV albumin with Lasix last night. BP 110/79. Started on midodrine. Orthostatic BP ordered for tomorrow AM. Continue PT and OT with caution. 11/29: Orthostatic blood pressure ordered. On 11/26 heart rate does not show significant change from lying to standing but blood pressure dropped from 144/80 to 122/46 about 20 m dropping systolic. New mild hypoxia: Etiology unclear possible related to atelectasis/sleep apnea. Patient denies chronic lung disease or smoking or sleep apnea. CPAP ordered 11/28: Chest x-ray shows left lung base atelectasis. Hypoventilation. 2. PAF; on Cardizem CD and apixaban BID: On carvedilol and Eliquis 5 mg twice daily. 11/29: Patient also on carvedilol 12.5 mg twice daily decreased to 6.25 mg twice daily with holding parameters. 3. Morbid (class III) obesity; with BMI 41.3 KG per square meter on admission- Weight loss recommended. 4. Essential hypertension; on carvedilol twice daily - Maintain carvedilol as previous. 5. Hyperlipidemia; on atorvastatin - continue atorvastatin. Check CPK 6. Mild hyperthyroidism with history of acquired hypothyroidism; on levothyroxine - TSH very low, less than 0.005. Free T4: 2.10. Hold levothyroxine 3 days and decrease dose to 50 mcg daily. Recommend TSH and free T4 after 6 weeks. 7. CAD; s/p [place] -on baby aspirin. If anemia will be issue, baby aspirin can be discontinued as patient already on Eliquis. 8. GERD; on omeprazole - Maintain PPI. 9. OA -PT and OT. 10. DVT prophylaxis - Patient already on apixaban for #2 which will be reluctantly continued for now. Microbiology Past 72 Hours 11/26/24 16:45 Mucosa - Nose SARS-CoV-2, Influenza & RSV (PCR) - Final 11/26/24 18:40: Troponin T Hi Sens 2 Hr 27 H 11/26/24 20:25: Magnesium 2.1, Troponin T Hi Sens 4Hr 29 H, Vitamin B12 439, TSH < 0.005 L 11/26/24 20:50: Serum Folate 25.60, Ethyl Alcohol < 10.1 11/27/24 03:48: WBC 7.2, RBC 4.34, Hgb 12.6, Hct 40.1, MCV 92.4, MCH 29.0, MCHC 31.4 L, RDW Std Deviation 44.5 H, RDW Coeff of Cory 13.2, Plt Count 221, MPV 9.7, Immature Gran % (Auto) 0.400, Neut % (Auto) 70.8 H, Lymph % (Auto) 14.1 L, Crook % (Auto) 13.4 H, Eos % (Auto) 1.0, Baso % (Auto) 0.3, Absolute Neuts (auto) 5.1, Absolute Lymphs (auto) 1.02, Nucleated RBC % 0, Sodium 139, Potassium 4.0, Chloride 105, Carbon Dioxide 25.3, Anion Gap 9, BUN 15, Creatinine 0.49 L, Estim Creat Clear Calc 56.35, Est GFR (MDRD) Non-Af 95, BUN/Creatinine Ratio 30.0 H, Glucose 111 H, Calcium 9.9, Phosphorus 3.9, Total Bilirubin 0.61, AST 16, ALT 13, Alkaline Phosphatase 90, Total Protein 5.5 L, Albumin 3.1 L, Globulin 2.4, Albumin/Globulin Ratio 1.3, Triglycerides 84, Cholesterol 90, LDL Cholesterol, Calc 35, VLDL Cholesterol 17, HDL Cholesterol 38 L, Cholesterol/HDL Ratio 2.37, Free T4 2.10 H Clinical Impression(s) from Imaging Studies Brain CT 11/26/24 16:28 IMPRESSION: No acute traumatic findings. Chronic/degenerative changes as described above. Reading Location: [facility] Cervical Spine CT 11/26/24 17:01 IMPRESSION: No acute traumatic findings. Chronic/degenerative changes as described above. Reading Location: [facility] Chest X-Ray 11/26/24 17:10 IMPRESSION: No radiographic evidence of an acute cardiopulmonary process Reading Location: [id number] Allergies/Procedures Done in Hospital Allergies hydrochlorothiazide Adverse Reaction (Intermediate, Verified 11/26/24 15:58) Constipation and urinary incontinence Type of Care/Length of Stay Estimated LOS: Convalescent Care Less Than 30 days Type of Care Needed: Skilled Rehab Potential: Good Prognosis: Good Additional Orders/Day of Discharge Day of Discharge: 11/30/24 Dietary and Speech Recommendations Dietitian Recommendations/Changes: Will continue liberalized regular diet with consistency/texture as per [employer]. Will continue 120mL ensure plus HP 4 times per day w/ medpass. Monitor blood glucose level and restrict dietary carbohydrate as needed. Trend weights closely and adjust ONS as needed to optimize nutrition and prevent energy/pro depletion. Discharge Plan Admission Admit Date/Time: 11/26/24 20:27 Attending Provider: Paul Lauren Primary Care Provider: Brayan Thompson Consulting Providers: Reynaldo Oliva Instructions Additional Instructions / Restrictions: Bilateral Usama wrap bandage in lower extremities. Patient could not tolerate Lasix because of hypotension and dizziness. Discharge Orders/Prescriptions Prescriptions: New acetaminophen 325 mg Tablet 650 mg PO Q6H PRN PRN (Reason: Pain 1-5/10 or Fever) Qty: 0 0RF midodrine 5 mg Tablet 10 mg PO TIDCM Qty: 0 0RF Rx Instructions: Hold if SBP more than 100 mmHg meclizine [Travel-Ease (meclizine)] 25 mg Tablet 25 mg PO 4X/DAY PRN PRN (Reason: DIZZINESS/VERTIGO) Qty: 0 0RF Continued nitroglycerin 0.4 mg tablet, sublingual 0.4 mg SUBLINGUAL Q5M PRN (Reason: Chest Pain) Qty: 25 2RF Patient Comments: chest pain levothyroxine 75 mcg tablet 75 mcg PO DAILY potassium gluconate 595 mg (99 mg) tablet 595 mg PO DAILY aspirin 81 MG tablet,chewable 81 mg PO QHS 30 Days Qty: 30 0RF Patient Comments: [facility] Rx Instructions: Discontinue if hemoglobin drops less than 10 g as patient already on Eliquis. atorvastatin 40 mg tablet 40 mg PO QHS Qty: 90 3RF omeprazole 20 mg capsule,delayed release(DR/EC) 20 mg PO DAILY Qty: 90 3RF Eliquis 5 mg tablet 5 mg PO BID Qty: 60 11RF diltiazem HCl [Tiadylt ER] 120 mg capsule,extended release 24 hr 120 mg PO QAM Qty: 30 3RF Held lisinopril 20 mg tablet 20 mg PO QHS Qty: 90 4RF Hold Instructions: Hold because of dizziness and hypotension carvedilol 25 mg tablet 12.5 mg PO BID Hold Instructions: Hold because of dizziness and hypotension. Patient Comments: PER PT CHANGED ON THURSDAY PER DR ANSARI TO 12.5 MG BID Referrals / Follow Up: Brayan Thompson MD [Primary Care Provider, [facility]] Kale Ansari NP, [employer]ER-C [Med Staff - [facility] Prof, Cardiology] - Within 2 Weeks Referral Note: Hypotension, orthostatic hypotension. Dizziness Disposition Disposition (needs filled in before D/C Order can be placed): [facility] (4) Closed head injury without concussion Qualifiers: Encounter type: initial encounter Qualified Code(s): S09.90XA - Unspecified injury of head, initial encounter
--- NOTE | 2024-11-30 14:40 | DS.PCM_ITS ---
Providers Date of Admission: 11/26/24 Date of Discharge: 11/30/24 Primary Care Physician: Dr. Brayan Thompson MD Reason For Visit: FALL WITH GENERALIZED WEAKNESS AND HEAD INJURY Diagnosis Discharge Diagnosis (1) Frequent falls: Status: Acute Code(s): R29.6 - Repeated falls (2) Generalized weakness: Status: Acute Code(s): R53.1 - Weakness (3) Ambulatory dysfunction: Status: Acute Code(s): R26.2 - Difficulty in walking, not elsewhere classified (4) Closed head injury without concussion: Status: Acute Code(s): S09.90XA - Unspecified injury of head, initial encounter Qualifiers: Encounter type: initial encounter Qualified Code(s): S09.90XA - Unspecified injury of head, initial encounter (5) Paroxysmal atrial fibrillation: Status: Acute Code(s): I48.0 - Paroxysmal atrial fibrillation (6) Morbid obesity with BMI of 40.0-44.9, adult: Status: Acute Code(s): E66.01 - Morbid (severe) obesity due to excess calories; Z68.41 - Body mass index [BMI] 40.0-44.9, adult Plan 79-year-old female was admitted with increased weakness and multiple falls last week including on the day of admission. She felt her legs were weak, fell to the ground and hit her head on the cabinet. Denies LOC. On Eliquis. Chronic swelling of the legs at baseline with no recent worsening. 1. Frequent Falls with Generalized Weakness, Ambulatory Dysfunction and Closed Head Injury and low BP- Admit to general medical floor. Pain control with acetaminophen and low-dose oxycodone. Was evaluated by PT and felt mildly dizzy and short of breath and mild hypoxia. Chest x-ray daily reviewed and no acute cardiopulmonary process. Patient does not have acute respiratory symptoms of cough or sputum or symptoms of pneumonia. Incentive spirometry 11/28: Low BP/intermittent hypotension: Patient was given IV albumin with Lasix last night. BP 110/79. Started on midodrine. Orthostatic BP ordered for tomorrow AM. Continue PT and OT with caution. 11/29:On 11/26 heart rate does not show significant change from lying to standing but blood pressure dropped from 144/80 to 122/46 about 20 m dropping systolic. 11/30: Discharged on midodrine 10 mg p.o. 3 times daily. Carvedilol on hold. Patient could not tolerate Lasix therefore advised Usama wrap bandage. Advised follow-up in cardiology office, Kale Ansari for dizziness and orthostatic hypotension. Might be benefited by tilt table test New mild hypoxia: Etiology unclear possible related to atelectasis/sleep apnea. Patient denies chronic lung disease or smoking or sleep apnea. CPAP ordered 11/28: Chest x-ray shows left lung base atelectasis. Hypoventilation. 11/30: Discharged on oxygen.: As an outpatient will need PFT/sleep study. Continue incentive spirometry and PEP for 1 week 2. PAF; on Cardizem CD and apixaban BID: On carvedilol and Eliquis 5 mg twice daily. 11/29: Patient also on carvedilol 12.5 mg twice daily decreased to 6.25 mg twice daily with holding parameters. 11/30: Hold carvedilol because of dizziness and low BP. On midodrine. 3. Morbid (class III) obesity; with BMI 41.3 KG per square meter on admission- Weight loss recommended. 4. Essential hypertension; on carvedilol twice daily - Maintain carvedilol as previous. 5. Hyperlipidemia; on atorvastatin - continue atorvastatin. Check CPK 6. Mild hyperthyroidism with history of acquired hypothyroidism; on levothyroxine - TSH very low, less than 0.005. Free T4: 2.10. Hold levothyroxine 3 days and decrease dose to 50 mcg daily. Recommend TSH and free T4 after 6 weeks. 7. CAD; s/p [place] -on baby aspirin. If anemia will be issue, baby aspirin can be discontinued as patient already on Eliquis. 8. GERD; on omeprazole - Maintain PPI. 9. OA -PT and OT. 10. DVT prophylaxis - Patient already on apixaban for #2 which will be reluctantly continued for now. Discharge medication reconciliation done. Discharge follow-up instructions completed. Discharge process discussed with the patient and all questions were answered to patient's satisfaction. Follow with PCP in 1 to 2 weeks Total time spent, exact 35 minutes on discharge meds reconciliation, examination, coordination of care with nurses and ancillary staff, review of imaging and blood test and discussion with the patient on follow-up instructions. Microbiology Past 72 Hours 11/26/24 16:45 Mucosa - Nose SARS-CoV-2, Influenza & RSV (PCR) - Final 11/26/24 18:40: Troponin T Hi Sens 2 Hr 27 H 11/26/24 20:25: Magnesium 2.1, Troponin T Hi Sens 4Hr 29 H, Vitamin B12 439, TSH < 0.005 L 11/26/24 20:50: Serum Folate 25.60, Ethyl Alcohol < 10.1 11/27/24 03:48: WBC 7.2, RBC 4.34, Hgb 12.6, Hct 40.1, MCV 92.4, MCH 29.0, MCHC 31.4 L, RDW Std Deviation 44.5 H, RDW Coeff of Croy 13.2, Plt Count 221, MPV 9.7, Immature Gran % (Auto) 0.400, Neut % (Auto) 70.8 H, Lymph % (Auto) 14.1 L, Ocean % (Auto) 13.4 H, Eos % (Auto) 1.0, Baso % (Auto) 0.3, Absolute Neuts (auto) 5.1, Absolute Lymphs (auto) 1.02, Nucleated RBC % 0, Sodium 139, Potassium 4.0, Chloride 105, Carbon Dioxide 25.3, Anion Gap 9, BUN 15, Creatinine 0.49 L, Estim Creat Clear Calc 56.35, Est GFR (MDRD) Non-Af 95, BUN/Creatinine Ratio 30.0 H, Glucose 111 H, Calcium 9.9, Phosphorus 3.9, Total Bilirubin 0.61, AST 16, ALT 13, Alkaline Phosphatase 90, Total Protein 5.5 L, Albumin 3.1 L, Globulin 2.4, Albumin/Globulin Ratio 1.3, Triglycerides 84, Cholesterol 90, LDL Cholesterol, Calc 35, VLDL Cholesterol 17, HDL Cholesterol 38 L, Cholesterol/HDL Ratio 2.37, Free T4 2.10 H Clinical Impression(s) from Imaging Studies Brain CT 11/26/24 16:28 IMPRESSION: No acute traumatic findings. Chronic/degenerative changes as described above. Reading Location: [facility] Cervical Spine CT 11/26/24 17:01 IMPRESSION: No acute traumatic findings. Chronic/degenerative changes as described above. Reading Location: [id number] Chest X-Ray 11/26/24 17:10 IMPRESSION: No radiographic evidence of an acute cardiopulmonary process Reading Location: [id number] Medications at Discharge Home Medications nitroglycerin 0.4 mg sublingual tablet 0.4 mg sublingual Q5M PRN Chest Pain #25 tabs 08/10/23 atorvastatin 40 mg tablet 40 mg PO QHS #90 tabs 08/01/24 omeprazole 20 mg capsule,delayed release 20 mg PO DAILY #90 caps 08/01/24 lisinopril 20 mg tablet 20 mg PO QHS #90 tabs 08/15/24 Held on 11/30/24. Instructions: Hold because of dizziness and hypotension apixaban 5 mg tablet (Eliquis) 5 mg PO BID #60 tabs 09/29/24 diltiazem HCl 120 mg capsule,24 hr,extended release (Tiadylt ER) 120 mg PO QAM #30 caps 10/14/24 levothyroxine 75 mcg tablet 75 mcg PO DAILY 10/25/24 potassium gluconate 595 mg (99 mg) tablet 595 mg PO DAILY 10/25/24 carvedilol 25 mg tablet 12.5 mg PO BID 11/26/24 Held on 11/30/24. Instructions: Hold because of dizziness and hypotension. acetaminophen 325 mg tablet 650 mg (2 x 325 mg) PO Q6H PRN PRN Pain 1-5/10 or Fever #0 tabs 11/30/24 aspirin 81 mg chewable tablet 81 mg PO QHS 30 days #30 tabs 11/30/24 meclizine 25 mg tablet (Travel-Ease (meclizine)) 25 mg PO 4X/DAY PRN PRN DIZZINESS/VERTIGO #0 tabs 11/30/24 midodrine 5 mg tablet 10 mg (2 x 5 mg) PO TIDCM #0 tabs 11/30/24 Physical Exam Narrative Seen and examined. Patient is still complain of mild dizziness but no vertigo. On Antivert. Continue midodrine Denies chronic lung disease including asthma COPD/interstitial lung disease. Does not use oxygen at home. No CPAP. No history of smoking. Denies chronic heart disease. No chest pain Bilateral leg swelling Physical exam General: Alert, Oriented x3, Cooperative. Morbid obesity BMI 40.4 kg/m?. Fatigue HEENT: Atraumatic, PERRLA, EOMI, Normocephalic. Oral: No Gingival or Mucosal Lesions/ Ulcerations Neck: Supple, No JVD, Negative Carotid Bruits Chest wall/Lungs: Air entry diminished in bilateral lung bases. No crepitation/rhonchi Cardiovascular: Regular rate and rhythm, Normal S1,S2, No M/G/R Abdomen: Bowel Sounds Present, Soft, Non Tender, Non-Distended : No dysuria. No renal angle tenderness. No suprapubic tenderness. Extremities: 1+ pedal edema below knee, Capillary Refill Less than 3 Seconds. Skin: No rashes, No breakdown Musculoskeletal: Mild tenderness on palpation over pitting edema. Degenerative arthritic deformities of her knees and ankles. ROM restricted over knees. Neurological: Cranial nerves II-XII grossly intact, DTR 2+/4. No acute focal neurological deficit. Psych/Mental Status: Flat affect Weight / BMI Weight Weight: 207 lb 7.28 oz Body Mass Index (BMI) 41.8 ABG / Lab / Microbiology Data 11/28/24 05:34 11/28/24 05:34 Microbiology: Microbiology 11/26/24 16:45 Mucosa - Nose SARS-CoV-2, Influenza & RSV (PCR) - Final D/C Instructions DC O2, CPAP, BIPAP Needs Home O2 Discharge instructions: Yes Type of respiratory needs?: Oxygen Oxygen frequency: Continuous Continuous oxygen liters per minute: 2 DC home with Oxygen: Yes Home O2 MD Review: I have reviewed the oxygen testing, and the patient qualifies for home oxygen equipment and portability. The patient is mobile in the home and the community. Meaningful Use Info Meaningful Use Meaningful Use Diagnoses (Choose all that apply): None applicable Discharge Plan Admission Admit Date/Time: 11/26/24 20:27 Attending Provider: Paul Lauren Primary Care Provider: Brayan Thompson Consulting Providers: Reynaldo Oliva Instructions Additional Instructions / Restrictions: Bilateral Usama wrap bandage in lower extremities. Patient could not tolerate Lasix because of hypotension and dizziness. Discharge Orders/Prescriptions Prescriptions: New acetaminophen 325 mg Tablet 650 mg PO Q6H PRN PRN (Reason: Pain 1-5/10 or Fever) Qty: 0 0RF midodrine 5 mg Tablet 10 mg PO TIDCM Qty: 0 0RF Rx Instructions: Hold if SBP more than 100 mmHg meclizine [Travel-Ease (meclizine)] 25 mg Tablet 25 mg PO 4X/DAY PRN PRN (Reason: DIZZINESS/VERTIGO) Qty: 0 0RF Continued nitroglycerin 0.4 mg tablet, sublingual 0.4 mg SUBLINGUAL Q5M PRN (Reason: Chest Pain) Qty: 25 2RF Patient Comments: chest pain levothyroxine 75 mcg tablet 75 mcg PO DAILY potassium gluconate 595 mg (99 mg) tablet 595 mg PO DAILY aspirin 81 MG tablet,chewable 81 mg PO QHS 30 Days Qty: 30 0RF Patient Comments: [facility] Rx Instructions: Discontinue if hemoglobin drops less than 10 g as patient already on Eliquis. atorvastatin 40 mg tablet 40 mg PO QHS Qty: 90 3RF omeprazole 20 mg capsule,delayed release(DR/EC) 20 mg PO DAILY Qty: 90 3RF Eliquis 5 mg tablet 5 mg PO BID Qty: 60 11RF diltiazem HCl [Tiadylt ER] 120 mg capsule,extended release 24 hr 120 mg PO QAM Qty: 30 3RF Held lisinopril 20 mg tablet 20 mg PO QHS Qty: 90 4RF Hold Instructions: Hold because of dizziness and hypotension carvedilol 25 mg tablet 12.5 mg PO BID Hold Instructions: Hold because of dizziness and hypotension. Patient Comments: PER PT CHANGED ON THURSDAY PER DR ANSARI TO 12.5 MG BID Referrals / Follow Up: Brayan Thompson MD [Primary Care Provider, Family Practice] Kale Ansari NP, S[employer]IOR [employer] ADMINISTRATOR-C [Med Staff - [facility] Practice Prof, Cardiology] - Within 2 Weeks Referral Note: Hypotension, orthostatic hypotension. Dizziness Disposition Disposition (needs filled in before D/C Order can be placed[facility] Charges/Coding Addendum Addendum: I have reviewed the oxygen testing, and this patient qualifies for the home equipment and portability. The patient is mobile in the home and the community. Visit Charges Inpatient E&M: 37387 Disch Hosp >30min
--- NOTE | 2024-11-30 14:58 | CASEMGMT ---
Social Work Precert has been obtained.? Physician updated and pt is ready for discharge today.? PASRR form completed in HENS. SW met with pt and they are agreeable to discharge plan as stated above.?DCA and bedside nurse notified of discharge. Disposition: [place], skilled level of care DARINEL Almodovar
--- NOTE | 2024-11-30 15:10 | PHA.DC.MR.R ---
Pharmacy [place] Med Reconciliation Pharmacy Service has performed discharge medication reconciliation for this patient. The patient's discharge medication list was reviewed for discrepancies and discrepancies were resolved. Medications at Discharge Home Medications nitroglycerin 0.4 mg sublingual tablet 0.4 mg sublingual Q5M PRN Chest Pain #25 tabs 08/10/23 atorvastatin 40 mg tablet 40 mg PO QHS #90 tabs 08/01/24 omeprazole 20 mg capsule,delayed release 20 mg PO DAILY #90 caps 08/01/24 lisinopril 20 mg tablet 20 mg PO QHS #90 tabs 08/15/24 Held on 11/30/24. Instructions: Hold because of dizziness and hypotension apixaban 5 mg tablet (Eliquis) 5 mg PO BID #60 tabs 09/29/24 diltiazem HCl 120 mg capsule,24 hr,extended release (Tiadylt ER) 120 mg PO QAM #30 caps 10/14/24 levothyroxine 75 mcg tablet 75 mcg PO DAILY 10/25/24 potassium gluconate 595 mg (99 mg) tablet 595 mg PO DAILY 10/25/24 carvedilol 25 mg tablet 12.5 mg PO BID 11/26/24 Held on 11/30/24. Instructions: Hold because of dizziness and hypotension. acetaminophen 325 mg tablet 650 mg (2 x 325 mg) PO Q6H PRN PRN Pain 1-5/10 or Fever #0 tabs 11/30/24 aspirin 81 mg chewable tablet 81 mg PO QHS 30 days #30 tabs 11/30/24 meclizine 25 mg tablet (Travel-Ease (meclizine)) 25 mg PO 4X/DAY PRN PRN DIZZINESS/VERTIGO #0 tabs 11/30/24 midodrine 5 mg tablet 10 mg (2 x 5 mg) PO TIDCM #0 tabs 11/30/24
--- NOTE | 2024-11-30 15:21 | CASEMGMT ---
Discharge Planning Discharge orders, signed med list, and transport time sent to [facility]. Physicians will transport pt by wheelchair at 7p. Nursing, SW, pt, and her daughter (Minnie) updated. Sofie Panda DC Planning Asst.
[2024-11-30 16:11] VITALS: BP 113/84; PULSE 86; RESP 18; TEMP 36.2; O2SAT 98
== END 2024-11-30 18:30 | disposition skilled nursing facility (03) ==
LOC: ED 20:13 → MS3 11-27 07:02
PROVIDERS: Admitting Provider Internal Medicine; Emergency Provider Emergency Medicine; PCP Family Medicine; Visit Provider Internal Medicine
DX: R29.6 Repeated falls (principal); I48.0 Paroxysmal atrial fibrillation; Z68.41 Body mass index [BMI] 40.0-44.9, adult; E66.813 Obesity, class 3; S09.90XA Unspecified injury of head, initial encounter; R53.1 Weakness; R53.81 Other malaise; Z79.890 Hormone replacement therapy; R26.89 Other abnormalities of gait and mobility; R60.0 Localized edema; K21.9 Gastro-esophageal reflux disease without esophagitis; Z79.01 Long term (current) use of anticoagulants; I25.10 Atherosclerotic heart disease of native coronary artery without angina pectoris; W19.XXXA Unspecified fall, initial encounter; R09.81 Nasal congestion; Z79.82 Long term (current) use of aspirin; I10 Essential (primary) hypertension; E78.5 Hyperlipidemia, unspecified; Z79.899 Other long term (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; E03.9 Hypothyroidism, unspecified; R09.02 Hypoxemia; E05.90 Thyrotoxicosis, unspecified without thyrotoxic crisis or storm; M19.90 Unspecified osteoarthritis, unspecified site; R06.02 Shortness of breath
CPT/HCPCS: 36415; 70450; 71045; 71046; 72125; 80048; 80053; 80061; 80307; 81001; 82077; 82550; 82607; 82746; 83036; 83735; 83880; 84100; 84439; 84443; 84484; 85025; 85610; 85730; 87631; 93005; 94668; 96365; 96375; 96376; 97162; 97166; 97530; 97535; 99221; 99285; P9047; A4216; G0378; J1938; J2405

== ENCOUNTER 2025-01-09 21:21 | Inpatient (IN) | payer MEDICARE, SELFPAY ==
[2025-01-09 21:23] VITALS: BP 129/72; PULSE 87; RESP 18; TEMP 36.6; O2SAT 97
[2025-01-09 21:25] VITALS: BP 129/72; PULSE 87; RESP 18; TEMP 36.6; O2SAT 100
[2025-01-09 22:10] LABS: Mucous, Urine 0 SEEN /hpf (<or=2+); Squamous Epithelial Cells - UA 0 SEEN /hpf (5-10)
[2025-01-09 22:11] LABS: Color, Urine Yellow (Yellow); Glucose, Dipstick Normal (Normal); Ketone-Dipstick Negative (Negative); Leukocyte Esterase-Dipstick 500 /ul (Negative); Nitrite-Dipstick Negative (Negative); Occult Blood-Urine 250 /ul (Negative); Protein-Dipstick 100 mg/dl (Negative); Specific Gravity, Urine 1.015 (1.002-1.030); Urine Bilirubin Dipstick Negative (Negative)
--- OUTSIDE RECORDS SUMMARY | 2025-01-09 22:21 | XMS RPT_ITS | CCD ---
Author Organization [facility] Care Team Providers Care Sewer Inspector Name Role Phone Kimber KELSEY, Vivien Quintana Unavailable Coty CROWD CONTROLLER, Kale Kendall Unavailable DeFinis, Harumi Y Unavailable Unavailable DeFinis, Harumi Y Unavailable Unavailable DeFinis, Harumi Y Unavailable Unavailable DeFinis, Harumi Y Unavailable Unavailable DeFinis, Harumi Y Unavailable Unavailable DeFinis, Harumi Y Unavailable Unavailable MD Davis Cyril S Unavailable DeFinis, Harumi Y Unavailable Unavailable DeFinis, Harumi Y Unavailable Unavailable DeFinis, Harumi Y Unavailable Unavailable Roof CROWD CONTROLLER, Kale H Unavailable Dr. Lilly Fletcher Primary Care Provider Dr. Lilly Fletcher Referring Provider [phone] Sanjay TORRES, CROWD CONTROLLER-C Ginger Attending Provider Sanjay TORRES, CROWD CONTROLLER-C Ginger Referring Provider Sanjay TORRES, CROWD CONTROLLER-C Ginger Other Provider Dr. Elie aDvis Attending Provider Dr. Lilly Fletcher Primary Care Provider Dr. Lilly Fletcher Referring Provider [phone] Sanjay TORRES NP-C Ginger Attending Provider Dr. Elie Davis Attending Provider Dr. Lilly Fletcher Primary Care Provider Dr. Lilly Fletcher Referring Provider [phone] Sanjay TORRES NP-C Ginger Attending Provider Dr. Elie Davis Attending Provider Dr. Lilly Fletcher Primary Care Provider Dr. Lilly Fletcher Referring Provider Sanjay TORRES, CROWD CONTROLLER-C Ginger Attending Provider PEDRITO Hay Attending Provider Justine OHARA, Dr. Lilly Barnes Primary Care Provider Reginaldo OHARA, Dr. Thompson Referring Provider Reginaldo OHARA, Dr. Thompson Emergency Provider Reginaldo OHARA, Dr. Thompson Attending Provider Dr. Jaylen Jack DO Emergency Provider Dr. Jaylen Jack DO Attending Provider Justine OHARA, Dr. Lilly Barnes Referring Provider Coty CROWD CONTROLLER-C, Kale Kendall Attending Provider Dr. Donovan Pierson DO Emergency Provider Roof CROWD CONTROLLER-C, Kale Kendall Referring Provider Dr. Donovan Pierson DO Attending Provider Care Physician, No Primary Primary Care Provider Unavailable Care Physician, No Primary Referring Provider Un available Sanjay TORRES-CGinger Attending Provider Justine OHARA, Dr. Lilly Barnes Primary Care Provider Dr. Brayan Thompson MD Primary Care Provider Dr. Aranza Little MD Admit Provider Dr. Aranza Little MD Attending Provider Dr. Aranza Little MD Other Provider Dr. Seth Flores MD Attending Provider Dr. Seth Flores MD Other Provider Dr. Franko Franco MD Attending Provider Dr. Lilly Fletcher MD Primary Care Physician Dr. Jaylen Jack DO Attending Physician Dr. Jaylen Jack DO Emergency Department Physi valerie Justine OHARA, Dr. Lilly Barnes Referring Provider Coty TORRES-CKale Attending Physician Coty CROWD CONTROLLER-C, Kale Kendall Referring Provider Susan OHARA, Dr. Delgadillo Attending Physician Dangelo ZHOU, Dr. Man Attending Physician Dr. Donovan Pierson DO Emergency Department Physi valerie Care Physician, No Primary Primary Care Physicia n Unavailable Care Physician, No Primary Referring Provider Un available Sanjay STEWARTCGinger Attending Physician Donna OHARA, Dr. Schmidt Primary Care Physicia n Sidney OHARA, Dr. Cobian Admitting Physician Sidney OHARA, Dr. Cobian Nurse Practitioner Sandra OHARA, Dr. Seth Banerjee Attending Physician Sandra OHARA, Dr. Seth Banerjee Nurse Practitioner Joan OHARA, Dr. Hodge Attending Physician Dr. Stephanie Kincaid DO Emergency Department Physi valerie Dr. Reynaldo Oliva DO Admitting Physician Arin vailable Oliva DO, Dr. Jacobs Nurse Practitioner Unav ailable Leonidas OHARA, Dr. Miller Attending Physician Leonidas OHARA, Dr. Miller Nurse Practitioner Dr. Lilly Fletcher MD Primary Care Physician Dr. Jaylen Jack DO Emergency Department Physi valerie Brayan Thompson Primary Care Unavailable Paul Lauren Attending Unavailable Reynaldo Oliva Consulting Unavailable Reynaldo Oliva Admitting Unavailable Paul Lauren Consulting Unavailable Aranza Little Attending Unavailable Brayan Thompson Primary Care Unavailable Aranza Little Admitting Unavailable Aranza Little Consulting Unavailable Roof CROWD CONTROLLER, Kale H Referring Unavailable Jolliff, Lilly S Primary Care Unavailable Elie Davis Attending Unavailable Ginger Grace Attending Unavailable Care Physician, No Primary Primary Care Unava ilable Care Physician, No Primary Referring Unava ilable Roof CROWD CONTROLLER, Kale H Referring Unavailable Roof CROWD CONTROLLER, Kale H Attending Unavailable Jolliff, Lilly S Primary Care Unavailable Jaylen Jack Attending Unavailable Jolliff, Lilly S Primary Care Unavailable Donovan Pierson Attending Unavailable Jolliff, Lilly S Primary Care Unavailable Donovan Pierson Attending Unavailable Care Physician, No Primary Primary Care Unava ilable Franko Franco Attending Unavailable Seth Flores Consulting Unavailable Roof CROWD CONTROLLER, Kale H Attending Unavailable Jolliff, Lilly S Referring Unavailable Jolliff, Lilly S Primary Care Unavailable Roof CROWD CONTROLLER, Kale H Attending Unavailable Jolliff, Lilly S Referring Unavailable Jolliff, Lilly S Primary Care Unavailable Reynaldo Oliva Attending Unavailable [facility] Primary Care Unavailable Mateusz Bennett Attending Unavailable Care Physician, No Primary Primary Care Unava ilable Roof CROWD CONTROLLER, Kale H Referring Unavailable Roof CROWD CONTROLLER, Kale Kendall Attending Unavailable Jay Hair Attending Unavailable Jay Hair Referring Unavailable Jolliff, Lilly S Primary Care Unavailable Aranza Little Consulting Unavailable [facility] Primary Care Unavailable Seth Flores Attending Unavailable Aranza Little Admitting Unavailable [facility] Primary Care Unavailable Paul Lauren Attending Unavailable Reynaldo Oliva Consulting Unavailable Reynaldo Oliva Admitting Unavailable [facility] Primary Care Unavailable Mateusz Bennett Attending Unavailable Roof CROWD CONTROLLER, Kale Kendall Attending Unavailable Roof CROWD CONTROLLER, Kale H Referring Unavailable Jolliff, Lilly S Primary Care Unavailable [facility] Primary Care Unavailable Roof CROWD CONTROLLER, Kale H Referring Unavailable Roof CROWD CONTROLLER, Kale Kendall Attending Unavailable [facility] Primary Care Unavailable Mateusz Bennett Attending Unavailable Seth Flores Attending Unavailable Allergies Allergy Classification Reported Allergen(s) Allergy Type Date of Onset Reaction(s) Facility (16 sources) hydroCHLOROthiazide Drug Allergy 12-18-19 22 Drug-induced constipation with proper administration [facility] Comment on above: and urinary incontin ence (1 source) hydroCHLOROthiazide Drug Allergy 11-27-19 [facility] Repository Medications Current Medications Medication Drug Class(es) Dates Sig (Normalized) Sig (Original) acetaminophen 325 mg oral tablet (1 source) Start: 11-30-2024 apixaban 5 mg oral tablet (7 sources) Factor Xa Inhibitor Start: 09-29-2024 aspirin 81 mg chewable tablet (20 sources) Nonsteroidal Anti-inflammatory Drug Start: 10-25-2015 End: 11-30-2024 Start: 10-25-2015 take 1 tablet by diomedes th at bedtime Aspirin 81 MG tablet,chewable Active 81 mg PO AT BEDTIME October 25, 2015 12:00am Start: 09-16-2010 take 1 tablet by diomedes th once daily ASPIRIN 81 MG TABS One tablet by mouth daily Enteric Coated ASPIRIN [id number] Polly Mustafa Start: 09-16-2010 take 1 tablet by diomedes th once daily ASPIRIN 81 MG TABS One tablet by mouth daily Enteric Coated ASPIRIN [id number] Polly Mustafa Start: 09-16-2010 take 1 tablet by diomedes th once daily ASPIRIN EC 81 MG TBEC One tablet by mouth daily ASPIRIN [id number] Nella Valerio carvedilol 25 mg oral tablet (20 sources) alpha-Adrenergic Sarmad, beta-Adrenergic Sarmad Start: 11-26-2024 Start: 11-24-2024 End: 11-26-2024 Start: 11-25-2021 End: 11-24-2024 Start: 09-13-2018 End: 11-25-2021 Start: 09-13-2018 End: 11-25-2021 Start: 09-13-2018 End: 10-31-2021 take 1 tablet by mouth twice daily at mealtime Carvedilol 12.5 mg tablet Discontinued 12.5 mg PO TWICE A DAY 180 3 September 27, 2021 3:35pm October 31, 2021 11:17am must administer with a meal/food Start: 09-01-2017 End: 09-13-2018 Start: 09-24-2016 take 1 tablet by diomedes th twice daily COREG 3.125 MG TABS One tablet by mouth twice daily CARVEDILOL [id number] Kale Ansari NP Start: 09-24-2016 take 1 tablet by diomedes th twice daily COREG 6.25 MG TABS One tablet by mouth twice daily CARVEDILOL [id number] Kale Kendall Coty CROWD CONTROLLER 24 hr dilTIAZem hydrochlorid e 120 mg extended release oral capsule (6 sources) Calcium Channel Sarmad Start: 10-14-2024 levothyroxine sodium 0.075 m g oral tablet (11 sources) l-Thyroxine Start: 10-25-2024 Start: 10-03-2024 End: 10-25-2024 meclizine hydrochloride 25 m g oral tablet (1 source) Antiemetic Start: 11-30-2024 midodrine hydrochloride 5 mg oral tablet (1 source) alpha-Adrenergic Agonist Start: 11-30-2024 potassium gluconate 2.5 meq oral tablet (20 sources) Start: 10-25-2024 Start: 09-09-2018 End: 09-09-2024 Completed/Discontinued Medications Medication Drug Class(es) Dates Sig (Normalized) Sig (Original) atenolol 50 mg oral tablet (20 sources) beta-Adrenergic Sarmad Start: 09-16-2010 End: 09-01-2017 atorvastatin 40 mg oral tablet (20 sources) HMG-CoA Reductase Inhibitor Start: 09-16-2010 End: 08-01-2024 cephalexin 500 mg oral capsule (13 sources) Cephalosporin Antibacterial Start: 03-25-2023 End: 04-04-2023 CLOBETASOL PROPIONATE (20 sources) Corticosteroid Start: 11-23-2015 End: 09-08-2016 TEMOVATE 0.05 % CREA as directed CLOBETASOL PROPIONATE [id number] Nella Valerio Start: 11-23-2015 End: 09-08-2016 TEMOVATE 0.05 % CREA as dire cted CLOBETASOL PROPIONATE [id number] Nella Y DeFinis Start: 11-23-2015 TEMOVATE 0.05 % CREA as directed CLOBETASOL PROPIONATE [id number] Mary Prieto RN Start: 10-26-2015 End: 09-01-2017 furosemide 40 mg oral tablet (20 sources) Loop Diuretic Start: 08-31-2023 End: 08-15-2024 Start: 12-25-2021 End: 08-31-2023 Start: 12-25-2021 End: 08-31-2023 take 2 tablets by mouth once daily Furosemide (Lasix) 20 mg tablet Discontinued 40 mg PO DAILY August 10, 2023 3:30pm August 31, 2023 1:33pm hydroCHLOROthiazide 25 mg or al tablet (20 sources) Thiazide Diuretic Start: 09-15-2019 End: 08-15-2021 Start: 03-10-2014 End: 09-12-2014 take 1 tablet by mouth once daily HYDROCHLOROTHIAZIDE 12.5 MG TABS One tablet by mouth daily HYDROCHLOROTHIAZIDE [id number] Vivien Haynes PA-C ipratropium (20 sources) Anticholinergic [...] Mary Prieto RN Start: 10-26-2015 End: 09-01-2017 Start: 10-26-2015 End: 09-01-2017 Ipratropium [place] 1 SPRAY spray,non-aerosol Discontinued 2 NMA NASAL THREE TIMES A DAY 2 0 October 26, 2015 11:11am September 01, 2017 11:15am Start: 10-26-2015 End: 09-01-2017 Ipratropium [place] Disconti nued 2 SPRAY NASAL THREE TIMES A DAY 2 October 26, 2015 10:11am September 01, 2017 10:15am isosorbide (20 sources) Start: 03-25-2011 End: 08-13-2011 take 1 tablet by mouth once daily IMDUR 30 MG [id number] One tablet by mouth daily ISOSORBIDE MONONITRATE [id number] Sofie Cornejo RN Start: 03-25-2011 take 1 tablet by diomedes th once daily IMDUR 30 MG [id number] One tablet by mouth daily ISOSORBIDE MONONITRATE [id number] Yolanda Larose RN lisinopril 20 mg oral tablet (20 sources) Angiotensin Converting Enzyme Inhibitor Start: 09-03-2017 End: 08-15-2024 Start: 09-03-2017 End: 09-15-2019 take 1 tablet by mouth once daily Lisinopril 20 mg tablet Discontinued 20 mg PO DAILY 90 4 September 09, 2019 12:34pm September 15, 2019 11:30am Start: 09-01-2017 End: 09-03-2017 Start: 10-26-2015 End: 09-01-2017 Start: 09-16-2010 End: 06-04-2012 take 1 tablet by mouth once daily ZESTRIL 10 MG TABS One tablet by mouth daily LISINOPRIL [id number] Kale Ansari NP meloxicam 15 mg oral tablet (8 sources) Nonsteroidal Anti-inflammatory Drug Start: 09-09-2024 End: 10-25-2024 MULTIPLE VITAMIN (14 sources) Start: 11-23-2015 take [...] Multivitamin With Folic Acid 1 TABLET tablet (10 sources) Start: 10-25-2015 End: 09-09-2018 take 1 tablet by mouth once daily Multivitamin With Folic Acid 1 TABLET tablet Discontinued 1 {tbl} PO DAILY October 25, 2015 12:00am September 09, 2018 10:48am niacin 500 mg oral tablet (20 sources) Nicotinic Acid Start: 09-16-2010 End: 09-12-2014 take 1 tablet by mouth once daily NIACIN 500 MG TABS One tablet by mouth daily NIACIN [id number] Susanne Jordan RN Start: 09-16-2010 End: 03-04-2012 take 1 tablet by mouth at bedtime NIASPAN 500 MG CR-TABS 1 tablet by mouth at bedtime with low fat snack NIACIN (ANTIHYPERLIPIDEMIC) [id number] Susanne Jordan RN nitroglycerin 0.4 mg subling ual tablet (20 sources) Nitrate Vasodilator Start: 10-26-2015 End: 08-10-2023 Start: 10-26-2015 End: 08-10-2023 Nitroglycerin 0.4 mg tablet, sublingual Discontinued 0.4 mg SL Q5M as needed for Chest Pain 26 04April 18, 2021 9:44am August 10, 2023 10:01am Start: 10-26-2015 End: 04-18-2021 Nitroglycerin Active 0.4 MG SL Q5M April 18, 2021 8:44am Start: 02-27-2012 NITROSTAT 0.4 MG SUBL 1 tablet under tongue every 5 min up to 3 X NITROGLYCERIN [id number] Elie Davis MD Start: 09-16-2010 NITROGLYCERIN 0.4 MG/HR PT24 1 tablet under tongue every 5 min up to 3 X NITROGLYCERIN [id number] Polly Mustafa omeprazole 20 mg delayed rel ease oral capsule (20 sources) Proton Pump Inhibitor Start: 10-25-2015 End: 08-01-2024 Start: 03-04-2011 take 1 capsule by mo ut twice daily PRILOSEC 20 MG CPDR One capsule by mouth twice daily OMEPRAZOLE [id number] Elie Davis MD Start: 03-04-2011 take 1 capsule by mo ut twice daily PRILOSEC 20 MG CPDR One capsule by mouth twice daily OMEPRAZOLE [id number] Elie Davis MD Start: 09-16-2010 take 2 tablets by mo han twice daily PRILOSEC 20 MG CPDR Two tablets by mouth twice daily OMEPRAZOLE [id number] Polly Mustafa Start: 09-16-2010 take 2 tablets by mo uth twice daily PRILOSEC 20 MG CPDR Two tablets by mouth twice daily OMEPRAZOLE [id number] Polly Mustafa sertraline 25 mg oral tablet (20 sources) Serotonin Reuptake Inhibitor Start: 10-26-2015 End: 09-01-2017 sucralfate 1000 mg oral tabl et (19 sources) Aluminum Complex Start: 10-12-2021 End: 07-02-2022 (2 sources) Start: 10-25-2015 End: 09-09-2018 Problems Active Problems Problem Classification Problem Date Documented Da te Episodic/Chronic Cardiac dysrhythmias (18 sources) Paroxysmal atrial fibrillation; Translations: [Paroxysmal atrial fibrillation] Onset: 5 09-28-2024 Chronic Comment on above: Event monitor 2024; Noted on event monit or in August 2024; Cardiac dysrhythmias (20 sources) Palpitations; Translations: [Palpitations] Onset: 5 Episodic Conditions associated with dizziness or vertigo (20 sources) Dizziness; Translations: [Dizziness and giddiness] Onset: 5 08-15-2024 Episodic Coronary atherosclerosis and other heart disease (20 sources) Coronary atherosclerosis; Translations: [Coronary arteriosclerosis] Onset: 1 09-16-2010 Chronic Coronary atherosclerosis and other heart disease (20 sources) Coronary angioplasty status; Translations: [Past history of procedure] Onset: 8 09-16-2010 Episodic Comment on above: POBA-OM2 Disorders of lipid metabolism (20 sources) Hyperlipidemia; Translations: [Hyperlipidemia, unspecified] Onset: 2 03-25-2011 Chronic E Codes: Fall (14 sources) Fall; Translations: [Unspecified fall, initial encounter] 06-18-2024 Episodic Esophageal disorders (20 sources) Gastroesophageal reflux disease; Translations: [Gastro-esophageal reflux disease without esophagitis] 10-31-2021 Chronic Essential hypertension (20 sources) Essential hypertension; Translations: [Essential (primary) hypertension] 09-08-2018 Chronic Gastrointestinal hemorrhage (4 sources) Finding of appearance of stool; Translations: [Melena] 10-24-2024 Episodic Heart valve disorders (20 sources) Systolic murmur; Translations: [Cardiac murmur, unspecified] Onset: 3 12-07-2012 Episodic Hypertension with complications and secondary hypertension (20 sources) Essential (primary) hypertension; Translations: [Unspecified essential hypertension] Onset: 6 03-28-2015 Chronic Malaise and fatigue (20 sources) Fatigue; Translations: [Other fatigue] Onset: 5 07-24-2023 Episodic Nonspecific chest pain (20 sources) Precordial pain; Translations: [Chest pain] Onset: 1 09-16-2010 Episodic Occlusion or stenosis of precerebral arteries (2 sources) Occlusion and stenosis of left carotid artery; Translations: [Occlusion and stenosis of left carotid artery] Onset: Chronic Other aftercare (2 sources) Long-term current use of anticoagulant; Translations: [residential (current) use of anticoagulants] 11-27-2024 Episodic Other connective tissue disease (4 sources) Recurrent falls ; Translations: [Repeated falls] 11-26-2024 Episodic Other connective tissue disease (1 source) Repeated falls; Translations: [Repeated falls] Onset: 5 Episodic Other injuries and conditions due to external causes (4 sources) Closed injury of head; Translations: [Unspecified injury of head, initial encounter] 11-26-2024 Episodic Other injuries and conditions due to external causes (2 sources) Unspecified injury of head, initial encounter; Translations: [Unspecified injury of head, initial encounter] Onset: 5 Episodic Other lower respiratory disease (20 sources) Dyspnea on exertion; Translations: [Other forms of dyspnea] 10-31-2021 Episodic Other lower respiratory disease (6 sources) Other forms of dyspnea; Translations: [Other respiratory abnormalities] Onset: 5 Episodic Other nervous system disorders (4 sources) Walking disability; Translations: [Difficulty in walking, not elsewhere classified] 11-26-2024 Chronic Other nervous system disorders (1 source) Difficulty in walking, not elsewhere classified; Translations: [Difficulty in walking, not elsewhere classified] Onset: 5 Chronic Other nutritional; endocrine; and metabolic disorders (20 sources) Body mass index 40+ - severely obese; Translations: [Morbid (severe) obesity due to excess calories] 09-08-2018 Chronic Other nutritional; endocrine; and metabolic disorders (1 source) Morbid (severe) obesity due to excess calories; Translations: [Morbid (severe) obesity due to excess calories] Onset: 5 Chronic Other nutritional; endocrine; and metabolic disorders (1 source) Body mass index (BMI) 40.0-44.9, adult; Translations: [Body mass index [BMI] 40.0-44.9, adult] Onset: 5 Chronic Unclassified (4 sources) Long-term drug therapy; Translations: [Other rn long term care (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] Onset: 09-16-2010 Urinary tract infections (14 sources) Cystitis; Translations: [Cystitis, unspecified without hematuria] 03-26-2023 Episodic Past or Other Problems Problem Classification Problem Date Documented Da te Episodic/Chronic Other aftercare (10 sources) Other senior care (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; Translations: [Other rn long term care (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] Onset: 09-16-2010 09-16-2010 Episodic [...] of the circulatory system] 03-01-2014 Episodic Unclassified (12 sources) No traumatic injury 06-18-2024 Results Test Name Value Interpretation Reference Range Facility CBC-Complete Blood Cnt No Di ffon 01-03-2025 Erythrocyte distribution width (RBC) [Ratio] 14.6 % Normal 11.6-14.6 [facility] Comment on above: Order Comment: 310.1 Performed By: #### L 100.0500, L500.4050 ####[facility] [address] [place], [address] Hematocrit (Bld) [Volume fraction] 36.6 % Low 37-47 [facility] Comment on above: Order Comment: 310.1 Performed By: #### L 100.0500, L500.4050 ####[facility] [address] [place], [address] Hemoglobin (Bld) [Mass/Vol] 11.8 g/dL Low 12.0-15.0 [facility] Comment on above: Order Comment: 310.1 Performed By: #### L 100.0500, L500.4050 ####[facility] [address] [place], [address] MCH (RBC) [Entitic mass] 29.5 pg Normal 27.0-32.0 [facility] Comment on above: Order Comment: 310.1 Performed By: #### L 100.0500, L500.4050 ####[facility] [address] [place], [address] MCHC (RBC) [Mass/Vol] 32.2 g/dL Normal 32-36 [facility] Comment on above: Order Comment: 310.1 Performed By: #### L 100.0500, L500.4050 ####[facility] [address] [place], [address] MCV (RBC) [Entitic vol] 91.5 fL Normal 81-99 [facility] Comment on above: Order Comment: 310.1 Performed By: #### L 100.0500, L500.4050 ####[facility] [address] [place], [address] Platelet mean volume (Bld) [Entitic vol] 9.7 fL Normal 6.2-12.0 [facility] Comment on above: Order Comment: 310.1 Performed By: #### L 100.0500, L500.4050 ####[facility] [address] [place], [address] Platelets (Bld) [#/Vol] 274 10*3/uL Normal 150-450 [facility] Comment on above: Order Comment: 310.1 Performed By: #### L 100.0500, L500.4050 ####[facility] [address] [place], [address] RBC (Bld) [#/Vol] 4.00 10*6/uL Low 4.2-5.4 [facility] Comment on above: Order Comment: 310.1 Performed By: #### L 100.0500, L500.4050 ####[facility] [address] [place], [address] RDW SD 48.9 fl High 35.1-43.9 [facility] Comment on above: Order Comment: 310.1 Performed By: #### L 100.0500, L500.4050 ####[facility] [address] [place], [address] WBC (Bld) [#/Vol] 7.0 10*3/uL Normal 4.4-11.0 [facility] Comment on above: Order Comment: 310.1 Performed By: #### L 100.0500, L500.4050 ####[facility] [address] [place], [address] Comprehensive Metabolic Prof ilon 01-03-2025 Albumin [Mass/Vol] 3.2 g/dL Low 3.4-4.8 [facility] Comment on above: Order Comment: 310.1 Performed By: #### L 100.0500, [id number] ####[facility] [address] [place], [address] Albumin/Globulin [Mass ratio] 1.1 {ratio} Normal 0.9-2.4 [facility] Comment on above: Order Comment: 310.1 Performed By: #### L 100.0500, L500.4050 ####[facility] [address] [place], [address] ALK PHOS 112 U/L High 35-104 [facility] Comment on above: Order Comment: 310.1 Performed By: #### L 100.0500, [id number] ####[facility] [address] [place], [address] ALT [Catalytic activity/Vol] 26 U/L Normal <=34 [facility] Comment on above: Order Comment: 310.1 Performed By: #### L 100.0500, L500.4050 ####[facility] [address] [place], [address] AST [Catalytic activity/Vol] 20 U/L Normal <=31 [facility] Comment on above: Order Comment: 310.1 Performed By: #### L 100.0500, [id number] ####[facility] [address] [place], [address] Bilirubin [Mass/Vol] 0.61 mg/dL Normal 0.00-1.30 [facility] Comment on above: Order Comment: 310.1 Performed By: #### L 100.0500, L500.4050 ####[facility] [address] [place], [address] BUN/CRE 20.3 RATIO High 10-20 [facility] Comment on above: Order Comment: 310.1 Performed By: #### L 100.0500, L500.4050 ####[facility] [address] [place], [address] Calcium [Mass/Vol] 10.5 mg/dL Normal 7.6-11.0 [facility] Comment on above: Order Comment: 310.1 Performed By: #### L 100.0500, [id number] ####[facility] [address] [place], [address] Chloride [Moles/Vol] 100 mmol/L Normal 98-108 [facility] Comment on above: Order Comment: 310.1 Performed By: #### L 100.0500, [id number] ####[facility] [address] [place], [address] CO2 [Moles/Vol] 30.6 mmol/L Normal 21.0-32.0 [facility] Comment on above: Order Comment: 310.1 Performed By: #### L 100.0500, L500.4050 ####[facility] [address] [place], [address] Creatinine [Mass/Vol] 0.50 mg/dL Low 0.70-1.20 [facility] Comment on above: Order Comment: 310.1 Performed By: #### L 100.0500, [id number] ####[facility] [address] [place], [address] GAP 7 Normal 5-15 [facility] Comment on above: Order Comment: 310.1 Performed By: #### L 100.0500, [id number] ####[facility] [address] [place], [address] GFR/1.73 sq M.predicted among non-blacks MDRD (S/P/Bld) [Vol rate/Area] 95 mL/min/{1.73_m2} Normal >60 [facility] [facility] Comment on above: Order Comment: 310.1 Result Comment: mL/m in/1.73m2 CKD-EPI Creatinine Equation (2020) Performed By: #### L 100.0500, L500.4050 ####[facility] [address] [place], [address] Globulin (S) [Mass/Vol] 2.9 g/dL Normal 2.2-4.2 [facility] Comment on above: Order Comment: 310.1 Performed By: #### L 100.0500, L500.4050 ####[facility] [address] [place], [address] Glucose [Mass/Vol] 111 mg/dL High 70-99 [facility] Comment on above: Order Comment: 310.1 Performed By: #### L 100.0500, L500.4050 ####[facility] [address] [place], [address] Potassium [Moles/Vol] 4.1 mmol/L Normal 3.3-5.1 [facility] Comment on above: Order Comment: 310.1 Performed By: #### L 100.0500, L500.4050 ####[facility] [address] [place], [address] Sodium [Moles/Vol] 137 mmol/L Normal 133-145 [facility] Comment on above: Order Comment: 310.1 Performed By: #### L 100.0500, L500.4050 ####[facility] [address] [place], [address] T PROT 6.2 g/dL Normal 5.9-8.4 [facility] Comment on above: Order Comment: 310.1 Performed By: #### L 100.0500, L500.4050 ####[facility] [address] [place], [address] Urea nitrogen [Mass/Vol] 10 mg/dL Normal 4-19 [facility] Comment on above: Order Comment: 310.1 Performed By: #### L 100.0500, L500.4050 ####[facility] [address] [place], [address] Urine Cultureon 12-27-2024 URC Normal [facility] Comment on above: Performed By: #### M 100.2200, L400.0001 ####[facility] [address] [place], [address] Urinalysis, Completeon 12-23 RBC 0-5 SEEN Normal 0-5 [facility] Comment on above: Order Comment: GRACE TER SPECIMEN Performed By: #### M 100.2200, L400.0001 ####[facility] [address] [place], [address] TRIPLE PHOS RARE Normal [facility] Comment on above: Order Comment: GRACE TER SPECIMEN Performed By: #### M 100.2200, L400.0001 ####[facility] [address] [place], [address] BACTERIA 3+ /hpf Normal None Seen [facility] Comment on above: Order Comment: GRACE TER SPECIMEN Performed By: #### M 100.2200, L400.0001 ####[facility] [address] [place], [address] WBC 10-25 SEEN Normal 0-5 [facility] Comment on above: Order Comment: GRACE TER SPECIMEN Performed By: #### M 100.2200, L400.0001 ####[facility] [address] [place], [address] EPI,SQUAMOUS 0 SEEN Normal 5-10 [facility] Comment on above: Order Comment: GRACE TER SPECIMEN Performed By: #### M 100.2200, L400.0001 ####[facility] [address] [place], [address] Mucus Ql (Urine sed) 0 SEEN Normal [facility] Comment on above: Order Comment: GRACE TER SPECIMEN Performed By: #### M 100.2200, L400.0001 ####[facility] [address] [place], [address] Basic Metabolic Profile (BMP )on 12-19-2024 BUN/CRE 21.8 RATIO High - [facility] Comment on above: Order Comment: 310.1 Performed By: #### L 100.0500, L500.2500 ####[facility] [address] [place], [address] Calcium [Mass/Vol] 10.0 mg/dL Normal 7.6-11.0 [facility] Comment on above: Order Comment: 310.1 Performed By: #### L 100.0500, L500.2500 ####[facility] [address] [place], [address] Chloride [Moles/Vol] 101 mmol/L Normal 98-108 [facility] Comment on above: Order Comment: 310.1 Performed By: #### L 100.0500, L500.2500 ####[facility] [address] [place], [address] CO2 [Moles/Vol] 31.0 mmol/L Normal 21.0-32.0 [facility] Comment on above: Order Comment: 310.1 Performed By: #### L 100.0500, L500.2500 ####[facility] [address] [place], [address] Creatinine [Mass/Vol] 0.50 mg/dL Low 0.70-1.20 [facility] Comment on above: Order Comment: 310.1 Performed By: #### L 100.0500, L500.2500 ####[facility] [address] [place], [address] GAP 7 Normal 5-15 [facility] Comment on above: Order Comment: 310.1 Performed By: #### L 100.0500, L500.2500 ####[facility] [address] [place], [address] GFR/1.73 sq M.predicted among non-blacks MDRD (S/P/Bld) [Vol rate/Area] 95 mL/min/{1.73_m2} Normal >60 [facility] Comment on above: Order Comment: 310.1 Result Comment: mL/m in/1.73m2 CKD-EPI Creatinine Equation (2020) Performed By: #### L 100.0500, L500.2500 ####[facility] [address] [place], [address] Glucose [Mass/Vol] 104 mg/dL High 70-99 [facility] Comment on above: Order Comment: 310.1 Performed By: #### L 100.0500, L500.2500 ####[facility] [address] [place], [address] Potassium [Moles/Vol] 3.6 mmol/L Normal 3.3-5.1 [facility] Comment on above: Order Comment: 310.1 Performed By: #### L 100.0500, L500.2500 ####[facility] [address] [place], [address] Sodium [Moles/Vol] 139 mmol/L Normal 133-145 [facility] Comment on above: Order Comment: 310.1 Performed By: #### L 100.0500, L500.2500 ####[facility] [address] [place], [address] Urea nitrogen [Mass/Vol] 11 mg/dL Normal 4-19 [facility] Comment on above: Order Comment: 310.1 Performed By: #### L 100.0500, L500.2500 ####[facility] [address] [place], [address] CBC-Complete Blood Cnt No Di ffon 12-19-2024 Erythrocyte distribution width (RBC) [Ratio] 14.5 % Normal 11.6-14.6 [facility] Comment on above: Order Comment: 310.1 Performed By: #### L 100.0500, L500.2500 ####[facility] [address] [place], [address] Hematocrit (Bld) [Volume fraction] 34.6 % Low 37-47 [facility] Comment on above: Order Comment: 310.1 Performed By: #### L 100.0500, L500.2500 ####[facility] [address] [place], [address] Hemoglobin (Bld) [Mass/Vol] 11.4 g/dL Low 12.0-15.0 [facility] Comment on above: Order Comment: 310.1 Performed By: #### L 100.0500, L500.2500 ####[facility] [address] [place], [address] MCH (RBC) [Entitic mass] 30.1 pg Normal 27.0-32.0 [facility] Comment on above: Order Comment: 310.1 Performed By: #### L 100.0500, L500.2500 ####[facility] [address] [place], [address] MCHC (RBC) [Mass/Vol] 32.9 g/dL Normal 32-36 [facility] Comment on above: Order Comment: 310.1 Performed By: #### L 100.0500, L500.2500 ####[facility] [address] [place], [address] MCV (RBC) [Entitic vol] 91.3 fL Normal 81-99 [facility] Comment on above: Order Comment: 310.1 Performed By: #### L 100.0500, L500.2500 ####[facility] [address] [place], [address] Platelet mean volume (Bld) [Entitic vol] 9.7 fL Normal 6.2-12.0 [facility] Comment on above: Order Comment: 310.1 Performed By: #### L 100.0500, L500.2500 ####[facility] [address] [place], [address] Platelets (Bld) [#/Vol] 246 10*3/uL Normal 150-450 [facility] Comment on above: Order Comment: 310.1 Performed By: #### L 100.0500, L500.2500 ####[facility] [address] [place], [address] RBC (Bld) [#/Vol] 3.79 10*6/uL Low 4.2-5.4 [facility] Comment on above: Order Comment: 310.1 Performed By: #### L 100.0500, L500.2500 ####[facility] [address] [place], [address] RDW SD 47.9 fl High 35.1-43.9 [facility] Comment on above: Order Comment: 310.1 Performed By: #### L 100.0500, L500.2500 ####[facility] [address] [place], [address] WBC (Bld) [#/Vol] 5.9 10*3/uL Normal 4.4-11.0 [facility] Comment on above: Order Comment: 310.1 Performed By: #### L 100.0500, L500.2500 ####[facility] [address] [place], [address] Absolute lymphocyte countOrd ered By: Paul Lauren on 11-28-2024 Lymphocytes Auto (Unsp spec) [#/Vol] 0.54 10*3/uL Low 0.83-4.51 [facility] Anion gap in Serum or Plasma Ordered By: Paul Lauren on 11-28-2024 Anion gap [Moles/Vol] 13 mmol/L 5-15 [facility] Automated lymphocyte count a s percentage of total leukocytesOrdered By: Paul Lauren on 11-28-2024 Lymphocytes/100 WBC Auto (Unsp spec) 7.3 % Low 19-41 [facility] BUN/creatinine ratioOrdered By: Paul Lauren on 11-28-2024 Urea nitrogen/Creatinine [Mass ratio] 35.0 mg/mg High 10-20 [facility] Basic Metabolic Profile (BMP )on 11-28-2024 BUN/CRE 35.0 RATIO High 10- [facility] Comment on above: Order Comment: MG1 3 N Performed By: #### L 100.0100, L500.2500 ####[facility] [address] [place], [address] Calcium [Mass/Vol] 9.9 mg/dL Normal 7.6-11.0 [facility] Comment on above: Order Comment: MG1 3 N Performed By: #### L 100.0100, L500.2500 ####[facility] [address] [place], [address] Chloride [Moles/Vol] 102 mmol/L Normal 98-108 [facility] Comment on above: Order Comment: MG1 3 N Performed By: #### L 100.0100, L500.2500 ####[facility] [address] [place], [address] CO2 [Moles/Vol] 21.2 mmol/L Normal 21.0-32.0 [facility] Comment on above: Order Comment: MG1 3 N Performed By: #### L 100.0100, L500.2500 ####[facility] [address] [place], [address] Creatinine [Mass/Vol] 0.59 mg/dL Low 0.70-1.20 [facility] Comment on above: Order Comment: MG1 3 N Performed By: #### L 100.0100, L500.2500 ####[facility] [address] [place], [address] ECRCL 56.86 ml/min Normal 50-250 [facility] Comment on above: Order Comment: MG1 3 N Performed By: #### L 100.0100, L500.2500 ####[facility] [address] [place], [address] GAP 13 Normal 5-15 [facility] Comment on above: Order Comment: MG1 3 N Performed By: #### L 100.0100, L500.2500 ####[facility] [address] [place], [address] GFR/1.73 sq M.predicted among non-blacks MDRD (S/P/Bld) [Vol rate/Area] 91 mL/min/{1.73_m2} Normal >60 [facility] Comment on above: Order Comment: MG1 3 N Result Comment: mL/m in/1.73m2 CKD-EPI Creatinine Equation (2020) Performed By: #### L 100.0100, L500.2500 ####[facility] [address] [place], [address] Glucose [Mass/Vol] 125 mg/dL High 70-99 [facility] Comment on above: Order Comment: MG1 3 N Performed By: #### L 100.0100, L500.2500 ####[facility] [address] [place], [address] Potassium [Moles/Vol] 4.8 mmol/L Normal 3.3-5.1 [facility] Comment on above: Order Comment: MG1 3 N Performed By: #### L 100.0100, L500.2500 ####[facility] [address] [place], [address] Sodium [Moles/Vol] 136 mmol/L Normal 133-145 [facility] Comment on above: Order Comment: MG1 3 N Performed By: #### L 100.0100, L500.2500 ####[facility] [address] [place], [address] Urea nitrogen [Mass/Vol] 21 mg/dL High 4-19 [facility] Comment on above: Order Comment: MG1 3 N Performed By: #### L 100.0100, L500.2500 ####[facility] [address] [place], [address] Basophil percentageOrdered B y: Paul Lauren on 11-28-2024 Basophils/100 WBC (Bld) 0.4 % 0-1 [facility] CBC W/Diff, Automatedon 11-01 Absolute Lymph 0.54 X10 3/uL Low 0.83-4.51 [facility] Comment on above: Performed By: #### L 100.0100, L500.2500 ####[facility] [address] [place], [address] Absolute Neut 5.9 X10 3/uL Normal 2.0-7.7 [facility] Comment on above: Performed By: #### L 100.0100, L500.2500 ####[facility] [address] [place], [address] Basophils/100 WBC (Bld) 0.4 % Normal 0-1 [facility] Comment on above: Performed By: #### L 100.0100, L500.2500 ####[facility] [address] [place], [address] Eosinophils/100 WBC (Bld) 1.3 % Normal 0-5 [facility] Comment on above: Performed By: #### L 100.0100, L500.2500 ####[facility] [address] [place], [address] Erythrocyte distribution width (RBC) [Ratio] 13.6 % Normal 11.6-14.6 [facility] Comment on above: Performed By: #### L 100.0100, L500.2500 ####[facility] [address] [place], [address] Hematocrit (Bld) [Volume fraction] 41.3 % Normal 37-47 [facility] Comment on above: Performed By: #### L 100.0100, L500.2500 ####[facility] [address] [place], [address] Hemoglobin (Bld) [Mass/Vol] 12.8 g/dL Normal 12.0-15.0 [facility] Comment on above: Performed By: #### L 100.0100, L500.2500 ####[facility] [address] [place], [address] IG% 0.300 Normal 0.0-0.9 [facility] Comment on above: Result Comment: IG% - Immature Granulocytes (promyelocytes, myelocytes andmetamyelocytes) > 1% indicates that a LEFT SHIFT is Present. Performed By: #### L 100.0100, L500.2500 ####[facility] [address] [place], [address] Lymphocytes/100 WBC (Bld) 7.3 % Low 19-41 [facility] Comment on above: Performed By: #### L 100.0100, L500.2500 ####[facility] [address] [place], [address] MCH (RBC) [Entitic mass] 29.6 pg Normal 27.0-32.0 [facility] Comment on above: Performed By: #### L 100.0100, L500.2500 ####[facility] [address] [place], [address] MCHC (RBC) [Mass/Vol] 31.0 g/dL Low 32-36 [facility] Comment on above: Performed By: #### L 100.0100, L500.2500 ####[facility] [address] [place], [address] MCV (RBC) [Entitic vol] 95.4 fL Normal 81-99 [facility] Comment on above: Performed By: #### L 100.0100, L500.2500 ####[facility] [address] [place], [address] Monocytes/100 WBC (Bld) 11.3 % High 0-10 [facility] Comment on above: Performed By: #### L 100.0100, L500.2500 ####[facility] [address] [place], [address] Neutrophils/100 WBC (Bld) 79.4 % High 47-70 [facility] Comment on above: Performed By: #### L 100.0100, L500.2500 ####[facility] [address] [place], [address] Nucleated RBC (Bld) [#/Vol] 0 10*3/uL Normal 0-5 [facility] Comment on above: Performed By: #### L 100.0100, L500.2500 ####[facility] [address] [place], [address] Platelet mean volume (Bld) [Entitic vol] 9.9 fL Normal 6.2-12.0 [facility] Comment on above: Performed By: #### L 100.0100, L500.2500 ####[facility] [address] [place], [address] Platelets (Bld) [#/Vol] 242 10*3/uL Normal 150-450 [facility] Comment on above: Performed By: #### L 100.0100, L500.2500 ####[facility] [address] [place], [address] RBC (Bld) [#/Vol] 4.33 10*6/uL Normal 4.2-5.4 [facility] Comment on above: Performed By: #### L 100.0100, L500.2500 ####[facility] [address] [place], [address] RDW SD 47.8 fl High 35.1-43.9 [facility] Comment on above: Performed By: #### L 100.0100, L500.2500 ####[facility] [address] [place], [address] WBC (Bld) [#/Vol] 7.4 10*3/uL Normal 4.4-11.0 [facility] Comment on above: Performed By: #### L 100.0100, L500.2500 ####[facility] [address] [place], [address] Carbon dioxide, total [Moles /volume] in Central venous bloodOrdered By: Paul Lauren on 11-28-2024 CO2 [Moles/Vol] 21.2 mmol/L 21.0-32.0 [facility] Chest 1 View (Portable)on Chest 1 View (Portable) Normal [facility] Chloride assayOrdered By: Pino Lauren on 11-28-2024 Chloride [Moles/Vol] 102 mmol/L 98-108 [facility] Electrocardiogram reportOrde red By: Franko Franco on 11-28-2024 EKG study [facility] Work Phone: Eosinophil percentageOrdered By: Paul Lauren on 11-28-2024 Eosinophils/100 WBC (Bld) 1.3 % 0-5 [facility] Erythrocyte distribution wid th ratioOrdered By: Paul Lauren on 11-28-2024 Erythrocyte distribution width (RBC) [Ratio] 13.6 % 11.6-14.6 [facility] Erythrocyte distribution wid th standard deviationOrdered By: Paul Lauren on 11-28-2024 Erythrocyte distribution width (RBC) [Ratio] 47.8 fl High 35.1-43.9 [facility] Glomerular filtration rate ( GFR) estimation/1.73 sq m using serum, plasma, or whole bOrdered By: Paul Lauren on 11-28-2024 GFR/1.73 sq M.predicted among non-blacks MDRD (S/P/Bld) [Vol rate/Area] 91 mL/min/{1.73_m2} >60 [facility] Hematocrit Auto (Bld) [Volum e fraction]Ordered By: Paul Lauren on 11-28-2024 Hematocrit (Bld) [Volume fraction] 41.3 % 37-47 [facility] Hemoglobin measurementOrdere d By: Paul Lauren on 11-28-2024 Hemoglobin (Bld) [Mass/Vol] 12.8 g/dL 12.0-15.0 [facility] Immature granulocytes/100 WB C Auto (Bld)Ordered By: Paul Lauren on 11-28-2024 Immature granulocytes/100 WBC (Bld) 0.300 % 0.0-0.9 [facility] MCV (mean corpuscular volume ) determinationOrdered By: Paul Lauren on 11-28-2024 MCV (RBC) [Entitic vol] 95.4 fL 81-99 [facility] Mean corpuscular hemoglobin (MCH) determinationOrdered By: Paul Lauren on 11-28-2024 MCH (RBC) [Entitic mass] 29.6 pg 27.0-32.0 [facility] Monocyte percentageOrdered B y: Paul Lauren on 11-28-2024 Monocytes/100 WBC (Bld) 11.3 % High 0-10 [facility] Natriuretic peptide.B prohor lne N-Terminal [Mass/volume] in Serum or PlasmaOrdered By: Reynaldo Nguyen on 11-28-2024 Natriuretic peptide.B prohormone N-Terminal [Mass/Vol] 176 pg/mL <1800 [facility] Neutrophil percentageOrdered By: Paul Lauren on 11-28-2024 Neutrophils/100 WBC (Bld) 79.4 % High 47-70 [facility] Phosphoruson 11-28-2024 Phosphate [Mass/Vol] 3.7 mg/dL Normal 2.7-4.5 [facility] Comment on above: Performed By: #### L 501.2300 ####[facility] [address] [place], [address] Platelet countOrdered By: Pino Lauren on 11-28-2024 Platelets (Bld) [#/Vol] 242 10*3/uL 150-450 [facility] Potassium measurement (mass/ volume)Ordered By: Paul Lauren on 11-28-2024 Potassium (Unsp spec) [Mass/Vol] 4.8 mmol/L 3.3-5.1 [facility] Pro- Brain NATRIURETIC PEPTI Jun 11-28-2024 Natriuretic peptide B (Bld) [Mass/Vol] 176 pg/mL Normal <=1800 [facility] Comment on above: Result Comment: Hear t Failure Unlikely: < 300 pg/mLHeart Failure Likely< 50 Years: > 450 pg/mL50-75 Years: > 900 pg/mL>75 Years: > 1800 pg/mL Performed By: #### L 503.7505 ####[facility] [address] [place], [address] RBC Auto (Bld) [#/Vol]Ordere d By: Paul Lauren on 11-28-2024 RBC (Bld) [#/Vol] 4.33 10*6/uL 4.2-5.4 [facility] Serum creatinine measurement (mass/volume)Ordered By: Paul Lauren on 11-28-2024 Creatinine [Mass/Vol] 0.59 mg/dL Low 0.70-1.20 [facility] Serum glucose measurement (m ass/volume)Ordered By: Paul Lauren on 11-28-2024 Glucose [Mass/Vol] 125 mg/dL High 70-99 [facility] Serum or plasma calcium aaron urement (mass/volume)Ordered By: Paul Lauren on 11-28-2024 Calcium [Mass/Vol] 9.9 mg/dL 7.6-11.0 [facility] Serum or plasma urea nitroge n measurement (mass/volume)Ordered By: Paul Lauren on 11-28-2024 Urea nitrogen [Mass/Vol] 21 mg/dL High 4-19 [facility] Sodium levelOrdered By: Sruthi Lauren on 11-28-2024 Sodium [Moles/Vol] 136 mmol/L 133-145 [facility] White blood cell (WBC) count Ordered By: Paul Lauren on 11-28-2024 WBC (Bld) [#/Vol] 7.4 10*3/uL 4.4-11.0 [facility] Bilirubin, totalOrdered By: Reynaldo Nguyen on 11-27-2024 Bilirubin [Mass/Vol] 0.61 mg/dL 0.00-1.30 [facility] CBC W/Diff, Automatedon 11-01 Absolute Lymph 1.02 X10 3/uL Normal 0.83-4.51 [facility] Comment on above: Performed By: #### L 500.4100, L501.2300, L500.4050, L100.0100 ####[facility] [address] [place], [address] Absolute Neut 5.1 X10 3/uL Normal 2.0-7.7 [facility] Comment on above: Performed By: #### L 500.4100, L501.2300, L500.4050, L100.0100 ####[facility] [address] [place], [address] Basophils/100 WBC (Bld) 0.3 % Normal 0-1 [facility] Comment on above: Performed By: #### L 500.4100, L501.2300, L500.4050, L100.0100 ####[facility] [address] [place], [address] Eosinophils/100 WBC (Bld) 1.0 % Normal 0-5 [facility] Comment on above: Performed By: #### L 500.4100, L501.2300, L500.4050, L100.0100 ####[facility] [address] [place], [address] Erythrocyte distribution width (RBC) [Ratio] 13.2 % Normal 11.6-14.6 [facility] Comment on above: Performed By: #### L 500.4100, L501.2300, L500.4050, L100.0100 ####[facility] [address] [place], [address] Hematocrit (Bld) [Volume fraction] 40.1 % Normal 37-47 [facility] Comment on above: Performed By: #### L 500.4100, L501.2300, L500.4050, L100.0100 ####[facility] [address] [place], [address] Hemoglobin (Bld) [Mass/Vol] 12.6 g/dL Normal 12.0-15.0 [facility] Comment on above: Performed By: #### L 500.4100, L501.2300, L500.4050, L100.0100 ####[facility] [address] [place], [address] IG% 0.400 Normal 0.0-0.9 [facility] Comment on above: Result Comment: IG% - Immature Granulocytes (promyelocytes, myelocytes andmetamyelocytes) > 1% indicates that a LEFT SHIFT is Present. Performed By: #### L 500.4100, L501.2300, L500.4050, L100.0100 ####[facility] [address] [place], [address] Lymphocytes/100 WBC (Bld) 14.1 % Low 19-41 [facility] Comment on above: Performed By: #### L 500.4100, L501.2300, L500.4050, L100.0100 ####[facility] [address] [place], [address] MCH (RBC) [Entitic mass] 29.0 pg Normal 27.0-32.0 [facility] Comment on above: Performed By: #### L 500.4100, L501.2300, L500.4050, L100.0100 ####[facility] [address] [place], [address] MCHC (RBC) [Mass/Vol] 31.4 g/dL Low 32-36 [facility] Comment on above: Performed By: #### L 500.4100, L501.2300, L500.4050, L100.0100 ####[facility] [address] [place], [address] MCV (RBC) [Entitic vol] 92.4 fL Normal 81-99 [facility] Comment on above: Performed By: #### L 500.4100, L501.2300, L500.4050, L100.0100 ####[facility] [address] [place], [address] Monocytes/100 WBC (Bld) 13.4 % High 0-10 [facility] Comment on above: Performed By: #### L 500.4100, L501.2300, L500.4050, L100.0100 ####[facility] [address] [place], [address] Neutrophils/100 WBC (Bld) 70.8 % High 47-70 [facility] Comment on above: Performed By: #### L 500.4100, L501.2300, L500.4050, L100.0100 ####[facility] [address] [place], [address] Nucleated RBC (Bld) [#/Vol] 0 10*3/uL Normal 0-5 [facility] Comment on above: Performed By: #### L 500.4100, L501.2300, L500.4050, L100.0100 ####[facility] [address] [place], [address] Platelet mean volume (Bld) [Entitic vol] 9.7 fL Normal 6.2-12.0 [facility] Comment on above: Performed By: #### L 500.4100, L501.2300, L500.4050, L100.0100 ####[facility] [address] [place], [address] Platelets (Bld) [#/Vol] 221 10*3/uL Normal 150-450 [facility] Comment on above: Performed By: #### L 500.4100, L501.2300, L500.4050, L100.0100 ####[facility] [address] [place], [address] RBC (Bld) [#/Vol] 4.34 10*6/uL Normal 4.2-5.4 [facility] Comment on above: Performed By: #### L 500.4100, L501.2300, L500.4050, L100.0100 ####[facility] [address] [place], [address] RDW SD 44.5 fl High 35.1-43.9 [facility] Comment on above: Performed By: #### L 500.4100, L501.2300, L500.4050, L100.0100 ####[facility] [address] [place], [address] WBC (Bld) [#/Vol] 7.2 10*3/uL Normal 4.4-11.0 [facility] Comment on above: Performed By: #### L 500.4100, L501.2300, L500.4050, L100.0100 ####[facility] [address] [place], [address] CPK Total, Creatine Kinaseon 11-27-2024 CPK TOTAL 27 U/L Normal 24-195 [facility] Comment on above: Performed By: #### L 501.3620 ####[facility] [address] [place] [place], [address] Calculated very low density lipoprotein (VLDL) cholesterol measurementOrdered By: Reynaldo Nguyen on 11-27-2024 Calculated very low density lipoprotein (VLDL) cholesterol measurement 17 mg/dL 5-40 [facility] Comprehensive Metabolic Prof ilon 11-27-2024 Albumin [Mass/Vol] 3.1 g/dL Low 3.4-4.8 [facility] Comment on above: Performed By: #### L 500.4100, L501.2300, L500.4050, L100.0100 ####[facility] [address] [place], [address] Albumin/Globulin [Mass ratio] 1.3 {ratio} Normal 0.9-2.4 [facility] Comment on above: Performed By: #### L 500.4100, L501.2300, L500.4050, L100.0100 ####[facility] [address] [place], [address] ALK PHOS 90 U/L Normal 35-104 [facility] Comment on above: Performed By: #### L 500.4100, L501.2300, L500.4050, L100.0100 ####[facility] [address] [place], [address] ALT [Catalytic activity/Vol] 13 U/L Normal <=34 [facility] Comment on above: Performed By: #### L 500.4100, L501.2300, L500.4050, L100.0100 ####[facility] [address] [place], [address] AST [Catalytic activity/Vol] 16 U/L Normal <=31 [facility] Comment on above: Performed By: #### L 500.4100, L501.2300, L500.4050, L100.0100 ####[facility] [address] [place], [address] Bilirubin [Mass/Vol] 0.61 mg/dL Normal 0.00-1.30 [facility] Comment on above: Performed By: #### L 500.4100, L501.2300, L500.4050, L100.0100 ####[facility] [address] [place], [address] BUN/CRE 30.0 RATIO High 10-20 [facility] Comment on above: Performed By: #### L 500.4100, L501.2300, L500.4050, L100.0100 ####[facility] [address] [place], [address] Calcium [Mass/Vol] 9.9 mg/dL Normal 7.6-11.0 [facility] Comment on above: Performed By: #### L 500.4100, L501.2300, L500.4050, L100.0100 ####[facility] [address] [place], [address] Chloride [Moles/Vol] 105 mmol/L Normal 98-108 [facility] Comment on above: Performed By: #### L 500.4100, L501.2300, L500.4050, L100.0100 ####[facility] [address] [place], [address] CO2 [Moles/Vol] 25.3 mmol/L Normal 21.0-32.0 [facility] Comment on above: Performed By: #### L 500.4100, L501.2300, L500.4050, L100.0100 ####[facility] [address] [place], [address] Creatinine [Mass/Vol] 0.49 mg/dL Low 0.70-1.20 [facility] Comment on above: Performed By: #### L 500.4100, L501.2300, L500.4050, L100.0100 ####[facility] [address] [place], [address] ECRCL 56.35 ml/min Normal 50-250 [facility] Comment on above: Performed By: #### L 500.4100, L501.2300, L500.4050, L100.0100 ####[facility] [address] [place], [address] GAP 9 Normal 5-15 [facility] Comment on above: Performed By: #### L 500.4100, L501.2300, L500.4050, L100.0100 ####[facility] [address] [place], [address] GFR/1.73 sq M.predicted among non-blacks MDRD (S/P/Bld) [Vol rate/Area] 95 mL/min/{1.73_m2} Normal >60 [facility] Comment on above: Result Comment: mL/m in/1.73m2 CKD-EPI Creatinine Equation (2020) Performed By: #### L 500.4100, L501.2300, L500.4050, L100.0100 ####[facility] [address] [place], [address] Globulin (S) [Mass/Vol] 2.4 g/dL Normal 2.2-4.2 [facility] Comment on above: Performed By: #### L 500.4100, L501.2300, L500.4050, L100.0100 ####[facility] [address] [place], [address] Glucose [Mass/Vol] 111 mg/dL High 70-99 [facility] Comment on above: Performed By: #### L 500.4100, L501.2300, L500.4050, L100.0100 ####[facility] [address] [place], [address] Potassium [Moles/Vol] 4.0 mmol/L Normal 3.3-5.1 [facility] Comment on above: Performed By: #### L 500.4100, L501.2300, L500.4050, L100.0100 ####[facility] [address] [place], [address] Sodium [Moles/Vol] 139 mmol/L Normal 133-145 [facility] Comment on above: Performed By: #### L 500.4100, L501.2300, L500.4050, L100.0100 ####[facility] [address] [place], [address] T PROT 5.5 g/dL Low 5.9-8.4 [facility] Comment on above: Performed By: #### L 500.4100, L501.2300, L500.4050, L100.0100 ####[facility] [address] [place], [address] Urea nitrogen [Mass/Vol] 15 mg/dL Normal 4-19 [facility] Comment on above: Performed By: #### L 500.4100, L501.2300, L500.4050, L100.0100 ####[facility] [address] [place], [address] LDL calc ser/plasOrdered By: Reynaldo Nguyen on 11-27-2024 Cholesterol in LDL [Mass/Vol] 35 mg/dL [facility] Lipid Profileon 11-27-2024 CHOL:HDL 2.37 Normal [facility] Comment on above: Performed By: #### L 500.4100, L501.2300, L500.4050, L100.0100 ####[facility] [address] [place], [address] Cholesterol [Mass/Vol] 90 mg/dL Normal <=200 [facility] Comment on above: Result Comment: Chol esterol level, Desirable <200 mg/dLBorderline high cholesterol 200-239 mg/dLHigh cholesterol >=240 mg/dLRecommendations of the NCEP Adult Treatment Panel for thefollowing risk-cutoff thresholds for the [place] Americanpopulation. Performed By: #### L 500.4100, L501.2300, L500.4050, L100.0100 ####[facility] [address] [place], [address] Cholesterol in HDL [Mass/Vol] 38 mg/dL Low [facility] Comment on above: Result Comment: Taty onal Cholesterol Education Program (NCEP) guidelines:<40 mg/dL: Low HDL-cholesterol (major risk factor for CHD)>= 60 mg/dL: High HDL-cholesterol (negative risk factor forCHD)HDL-cholesterol is affected by a number of factors, e.g.smoking, exercise, hormones, sex and age. Performed By: #### L 500.4100, L501.2300, L500.4050, L100.0100 ####[facility] [address] [place], [address] Cholesterol in LDL [Mass/Vol] 35 mg/dL Normal [facility] Comment on above: Result Comment: Bord jqdzej=410-146 mg/dL Higher Tbiv=850 mg/dL or greaterFriedwald Equation for LDL-C Performed By: #### L 500.4100, L501.2300, L500.4050, L100.0100 ####[facility] [address] [place], [address] Cholesterol in VLDL [Mass/Vol] 17 mg/dL Normal 5-40 [facility] Comment on above: Performed By: #### L 500.4100, L501.2300, L500.4050, L100.0100 ####[facility] [address] [place], [address] Triglyceride [Mass/Vol] 84 mg/dL Normal [facility] Comment on above: Result Comment: The drugs N-Acetylcysteine and Metamizole may falselydepress this assay.Normal range: <150 mg/dLBorderline High: 150-199 mg/dLHigh: 200-499 mg/dLVery High: >500 mg/dL Performed By: #### L 500.4100, L501.2300, L500.4050, L100.0100 ####[facility] [address] [place], [address] No Panel InformationOrdered By: Reynaldo Nguyen on 11-27-2024 16 U/L <32 [facility] Phosphoruson 11-27-2024 Phosphate [Mass/Vol] 3.9 mg/dL Normal 2.7-4.5 [facility] Comment on above: Performed By: #### L 500.4100, L501.2300, L500.4050, L100.0100 ####[facility] [address] [place], [address] Serum globulin measurementOr dered By: Reynaldo Nguyen on 11-27-2024 Globulin (S) [Mass/Vol] 2.4 g/dL 2.2-4.2 [facility] Serum or plasma alanine rajput otransferase (ALT) measurementOrdered By: Reynaldo Nguyen on 11-27-2024 ALT [Catalytic activity/Vol] 13 U/L <35 [facility] Serum or plasma albumin aaron urement (mass/volume)Ordered By: Reynaldo Nguyen on 11-27-2024 Albumin [Mass/Vol] 3.1 g/dL Low 3.4-4.8 [facility] Serum or plasma albumin/glob ulin mass ratioOrdered By: Reynaldo Nguyen on 11-27-2024 Albumin/Globulin [Mass ratio] 1.3 {ratio} 0.9-2.4 [facility] Serum or plasma alkaline bernardo sphatase measurementOrdered By: Reynaldo Nguyen on 11-27-2024 ALP [Catalytic activity/Vol] 90 U/L 35-104 [facility] Serum or plasma cholesterol in HDL measurement (mass/volume)Ordered By: Reynaldo Nguyen on 11-27-2024 Cholesterol in HDL [Mass/Vol] 38 mg/dL Low >40 [facility] Serum or plasma cholesterol measurement (mass/volume)Ordered By: Reynaldo Nguyen on 11-27-2024 Cholesterol [Mass/Vol] 90 mg/dL <201 [facility] Serum or plasma creatine kin ase activityOrdered By: Paul Lauren on 11-27-2024 CK [Catalytic activity/Vol] 27 U/L 24-195 [facility] T4 Free Directon 11-27-2024 T4 FREE DIRECT 2.10 ng/dL High 0.76-1.46 [facility] Comment on above: Performed By: #### L 506.0400 ####[facility] [address] [place], [place], [id number] T4 freeOrdered By: Paul chavira on 11-27-2024 Free T4 [Mass/Vol] 2.10 ng/dL High 0.76-1.46 [facility] Total proteinOrdered By: Remi Nguyen on 11-27-2024 Protein [Mass/Vol] 5.5 g/dL Low 5.9-8.4 [facility] 12 Lead EKGon 11-26-2024 12 Lead EKG Normal [facility] Activated partial thrombopla stin time (aPTT) in platelet poor plasma by coagulation aOrdered By: Stephanie Kincaid on 11-26-2024 aPTT Coag (PPP) [Time] 29.2 s 24.1-36.2 [facility] Alcohol, Blood (Medical)-Ser umon 11-26-2024 SERUM ETOH < 10.1 Normal <=10.0 [facility] Comment on above: Result Comment: This test is for medical purposes only. The legaldefinition of intoxication varies according to local law. Performed By: #### L 501.9985, L506.0200, L501.9100, L501.9520, L501.5200, L505.5000 ####[facility] [address] [place], [place], [id number] Amorphous sediment detection in urine sediment by light microscopyOrdered By: Stephanie Kincaid on 11-26-2024 Amorphous sediment LM Ql (Urine sed) 1+ [facility] Amphetamine detection with 1 000 ng/mL as cutoffOrdered By: Reynaldo Nguyen on 11-26-2024 Amphetamines Screen method >1000 ng/mL Ql (U) Negative < 200 ng/mL [facility] Basic Metabolic Profile (BMP )on 11-26-2024 BUN/CRE 30.3 RATIO High 10-20 [facility] Comment on above: Performed By: #### L 300.4310, L300.3900, L100.0100, L503.7505, L500.2500 ####[facility] [address] [place], [address] Calcium [Mass/Vol] 10.1 mg/dL Normal 7.6-11.0 [facility] Comment on above: Performed By: #### L 300.4310, L300.3900, L100.0100, L503.7505, L500.2500 ####[facility] [address] [place], [address] Chloride [Moles/Vol] 103 mmol/L Normal 98-108 [facility] Comment on above: Performed By: #### L 300.4310, L300.3900, L100.0100, L503.7505, L500.2500 ####[facility] [address] [place], [address] CO2 [Moles/Vol] 25.9 mmol/L Normal 21.0-32.0 [facility] Comment on above: Performed By: #### L 300.4310, L300.3900, L100.0100, L503.7505, L500.2500 ####[facility] [address] [place], [address] Creatinine [Mass/Vol] 0.53 mg/dL Low 0.70-1.20 [facility] Comment on above: Performed By: #### L 300.4310, L300.3900, L100.0100, L503.7505, L500.2500 ####[facility] [address] [place], [address] ECRCL 57.00 ml/min Normal 50-250 [facility] Comment on above: Performed By: #### L 300.4310, L300.3900, L100.0100, L503.7505, L500.2500 ####[facility] [address] [place], [address] GAP 9 Normal 5-15 [facility] Comment on above: Performed By: #### L 300.4310, L300.3900, L100.0100, L503.7505, L500.2500 ####[facility] [address] [place], [address] GFR/1.73 sq M.predicted among non-blacks MDRD (S/P/Bld) [Vol rate/Area] 93 mL/min/{1.73_m2} Normal >60 [facility] Comment on above: Result Comment: mL/m in/1.73m2 CKD-EPI Creatinine Equation (2020) Performed By: #### L 300.4310, L300.3900, L100.0100, L503.7505, L500.2500 ####[facility] [address] [place], [address] Glucose [Mass/Vol] 122 mg/dL High 70-99 [facility] Comment on above: Performed By: #### L 300.4310, L300.3900, L100.0100, L503.7505, L500.2500 ####[facility] [address] [place], [address] Potassium [Moles/Vol] 4.8 mmol/L Normal 3.3-5.1 [facility] Comment on above: Performed By: #### L 300.4310, L300.3900, L100.0100, L503.7505, L500.2500 ####[facility] [address] [place], [address] Sodium [Moles/Vol] 138 mmol/L Normal 133-145 [facility] Comment on above: Performed By: #### L 300.4310, L300.3900, L100.0100, L503.7505, L500.2500 ####[facility] [address] [place], [address] Urea nitrogen [Mass/Vol] 16 mg/dL Normal 4-19 [facility] Comment on above: Performed By: #### L 300.4310, L300.3900, L100.0100, L503.7505, L500.2500 ####[facility] [address] [place], [address] Bilirubin Test strip Ql (U)O rdered By: Stephanie Kincaid on 11-26-2024 Bilirubin Ql (U) Negative Negative [facility] Brain/Head without Contrasto n 11-26-2024 Brain/Head without Contrast Normal [facility] CBC W/Diff, Automatedon 11-01 Absolute Lymph 0.75 X10 3/uL Low 0.83-4.51 [facility] Comment on above: Performed By: #### L 300.4310, L300.3900, L100.0100, L503.7505, L500.2500 ####[facility] [address] [place], [address] Absolute Neut 6.2 X10 3/uL Normal 2.0-7.7 [facility] Comment on above: Performed By: #### L 300.4310, L300.3900, L100.0100, L503.7505, L500.2500 ####[facility] [address] [place], [address] Basophils/100 WBC (Bld) 0.3 % Normal 0-1 [facility] Comment on above: Performed By: #### L 300.4310, L300.3900, L100.0100, L503.7505, L500.2500 ####[facility] [address] [place], [address] Eosinophils/100 WBC (Bld) 0.8 % Normal 0-5 [facility] Comment on above: Performed By: #### L 300.4310, L300.3900, L100.0100, L503.7505, L500.2500 ####[facility] [address] [place], [address] Erythrocyte distribution width (RBC) [Ratio] 13.2 % Normal 11.6-14.6 [facility] Comment on above: Performed By: #### L 300.4310, L300.3900, L100.0100, L503.7505, L500.2500 ####[facility] [address] [place], [address] Hematocrit (Bld) [Volume fraction] 41.7 % Normal 37-47 [facility] Comment on above: Performed By: #### L 300.4310, L300.3900, L100.0100, L503.7505, L500.2500 ####[facility] [address] [place], [address] Hemoglobin (Bld) [Mass/Vol] 13.7 g/dL Normal 12.0-15.0 [facility] Comment on above: Performed By: #### L 300.4310, L300.3900, L100.0100, L503.7505, L500.2500 ####[facility] [address] [place], [address] IG% 0.300 Normal 0.0-0.9 [facility] Comment on above: Result Comment: IG% - Immature Granulocytes (promyelocytes, myelocytes andmetamyelocytes) > 1% indicates that a LEFT SHIFT is Present. Performed By: #### L 300.4310, L300.3900, L100.0100, L503.7505, L500.2500 ####[facility] [address] [place], [address] Lymphocytes/100 WBC (Bld) 9.7 % Low 19-41 [facility] Comment on above: Performed By: #### L 300.4310, L300.3900, L100.0100, L503.7505, L500.2500 ####[facility] [address] [place], [address] MCH (RBC) [Entitic mass] 29.6 pg Normal 27.0-32.0 [facility] Comment on above: Performed By: #### L 300.4310, L300.3900, L100.0100, L503.7505, L500.2500 ####[facility] [address] [place], [address] MCHC (RBC) [Mass/Vol] 32.9 g/dL Normal 32-36 [facility] Comment on above: Performed By: #### L 300.4310, L300.3900, L100.0100, L503.7505, L500.2500 ####[facility] [address] [place], [address] MCV (RBC) [Entitic vol] 90.1 fL Normal 81-99 [facility] Comment on above: Performed By: #### L 300.4310, L300.3900, L100.0100, L503.7505, L500.2500 ####[facility] [address] [place], [address] Monocytes/100 WBC (Bld) 9.2 % Normal 0-10 [facility] Comment on above: Performed By: #### L 300.4310, L300.3900, L100.0100, L503.7505, L500.2500 ####[facility] [address] [place], [address] Neutrophils/100 WBC (Bld) 79.7 % High 47-70 [facility] Comment on above: Performed By: #### L 300.4310, L300.3900, L100.0100, L503.7505, L500.2500 ####[facility] [address] [place], [address] Nucleated RBC (Bld) [#/Vol] 0 10*3/uL Normal 0-5 [facility] Comment on above: Performed By: #### L 300.4310, L300.3900, L100.0100, L503.7505, L500.2500 ####[facility] [address] [place], [address] Platelet mean volume (Bld) [Entitic vol] 9.3 fL Normal 6.2-12.0 [facility] Comment on above: Performed By: #### L 300.4310, L300.3900, L100.0100, L503.7505, L500.2500 ####[facility] [address] [place], [address] Platelets (Bld) [#/Vol] 227 10*3/uL Normal 150-450 [facility] Comment on above: Performed By: #### L 300.4310, L300.3900, L100.0100, L503.7505, L500.2500 ####[facility] [address] [place], [address] RBC (Bld) [#/Vol] 4.63 10*6/uL Normal 4.2-5.4 [facility] Comment on above: Performed By: #### L 300.4310, L300.3900, L100.0100, L503.7505, L500.2500 ####[facility] [address] [place], [address] RDW SD 43.5 fl Normal 35.1-43.9 [facility] Comment on above: Performed By: #### L 300.4310, L300.3900, L100.0100, L503.7505, L500.2500 ####[facility] [address] [place], [address] WBC (Bld) [#/Vol] 7.7 10*3/uL Normal 4.4-11.0 [facility] Comment on above: Performed By: #### L 300.4310, L300.3900, L100.0100, L503.7505, L500.2500 ####[facility] [address] [place], [address] Chest PA and Lateralon 11-26 Chest PA and Lateral Normal [facility] Emergency Department Summary on 11-26-2024 Emergency Department Summary Normal [facility] Folate [Mass/volume] in Seru m or PlasmaOrdered By: Reynaldo Nguyen on 11-26-2024 Folate [Mass/Vol] 25.60 ng/mL 4.60-34.80 [facility] Folates,Serum (Folic Acid)on 11-26-2024 FOLATES,SERUM 25.60 ng/mL Normal 4.60-34.80 [facility] Comment on above: Result Comment: Hemo lysis, Results will be affected, Requires Recollection. Performed By: #### L 501.9985, L506.0200, L501.9100, L501.9520, L501.5200, L505.5000 ####[facility] [address] [place], [address] H AND P Exam - Hospitaliston 11-26-2024 H&P Exam - Hospitalist Normal [facility] Hemoglobin A1con 11-26-2024 HbA1c (Bld) [Mass fraction] 5.6 % Normal <=5.6 [facility] Comment on above: Result Comment: Norm al < 5.7 % Prediabetic 5.7 - 6.4 % Diabetic >or= 6.5 % Please note range changes. Performed By: #### L 501.9985, L506.0200, L501.9100, L501.9520, L501.5200, L505.5000 ####[facility] [address] [place], [address] Hemoglobin A1c percentageOrd ered By: Reynaldo Nguyen on 11-26-2024 HbA1c (Bld) [Mass fraction] 5.6 % <5.7 [facility] Influenza virus A and B and SARS-CoV-2 (COVID-19) and Respiratory syncytial virus RNAOrdered By: Stephanie Kincaid on 11-26-2024 SARS-CoV-2 (COVID-19) RNA LIBRADO+probe Ql (Unsp spec) [facility] Ketones Test strip Ql (U)Ord ered By: Stephanie Kincaid on 11-26-2024 Ketones Ql (U) Negative Negative [facility] L501.4021on 11-26-2024 Trop T High Sen 28 ng/L High <=14 [facility] Comment on above: Performed By: #### L 501.4021 ####[facility] [address] [place], [address] M100.678on 11-26-2024 M100.678 Pending SARS-CoV-2 (COVID 19) Negative INFLUENZA A Negative INFLUENZA B Negative RSV PCR Negative Normal [facility] Comment on above: Performed By: #### M 100.678 ####[facility] [address] [place], [address] Magnesiumon 11-26-2024 Magnesium [Mass/Vol] 2.1 mg/dL Normal 1.5-2.2 [facility] Comment on above: Performed By: #### L 501.9985, L506.0200, L501.9100, L501.9520, L501.5200, L505.5000 ####[facility] [address] [place], [address] Magnesium measurement (mass/ volume)Ordered By: Reynaldo Nguyen on 11-26-2024 Magnesium (Unsp spec) [Mass/Vol] 2.1 mg/dL 1.5-2.2 [facility] Mucus LM Ql (Urine sed)Order ed By: Stephanie Kincaid on 11-26-2024 Mucus Ql (Urine sed) 0 SEEN /hpf [facility] Nitrite Test strip Ql (U)Ord ered By: Stephanie Kincaid on 11-26-2024 Nitrite Ql (U) Negative Negative [facility] No Panel InformationOrdered By: Reynaldo Nguyen on 11-26-2024 Negative < 200 ng/mL [facility] Partial Thromboplast Timeon 11-26-2024 aPTT Coag (Bld) [Time] 29.2 s Normal 24.1-36.2 [facility] Comment on above: Performed By: #### L 300.4310, L300.3900, L100.0100, L503.7505, L500.2500 ####[facility] [address] [place], [address] Pro- Brain NATRIURETIC PEPTI Jun 11-26-2024 Natriuretic peptide B (Bld) [Mass/Vol] 517 pg/mL Normal <=1800 [facility] Comment on above: Result Comment: Hear t Failure Unlikely: < 300 pg/mLHeart Failure Likely< 50 Years: > 450 pg/mL50-75 Years: > 900 pg/mL>75 Years: > 1800 pg/mL Performed By: #### L 300.4310, L300.3900, L100.0100, L503.7505, L500.2500 ####[facility] [address] [place], [place], [id number] Protein Test strip Ql (U)Ord ered By: Stephanie Kincaid on 11-26-2024 Protein Ql (U) 15 mg/dl High Negative [facility] Prothrombin Time w/INRon INR Coag (PPP) [Relative time] 1.2 {INR} Normal [facility] Comment on above: Performed By: #### L 300.4310, L300.3900, L100.0100, L503.7505, L500.2500 ####[facility] [address] [place], [address] PT Coag (PPP) [Time] 15.8 s High 11.7-14.9 [facility] Comment on above: Performed By: #### L 300.4310, L300.3900, L100.0100, L503.7505, L500.2500 ####[facility] [address] [place], [address] Prothrombin timeOrdered By: Stephanie Kincaid on 11-26-2024 PT Coag (PPP) [Time] 15.8 s High 11.7-14.9 [facility] Screening urine fentanyl timothy surementOrdered By: Reynaldo Nguyen on 11-26-2024 fentaNYL Screen Ql (U) Negative <5 ng/mL [facility] Serum or plasma ethanol aaron urement (mass/volume)Ordered By: Reynaldo Nguyen on 11-26-2024 Ethanol [Mass/Vol] mg/dL <10.1 [facility] Spine Cervical without Contr ason 11-26-2024 Spine Cervical without Contras Normal [facility] Squamous epithelial cells de tection in urine sediment by light microscopyOrdered By: Stephanie Kincaid on 11-26-2024 Epithelial cells.squamous LM Ql (Urine sed) 10-25 SEEN /hpf 5-10 [facility] TSH DL <= 0.005 mIU/L QnOrde red By: Reynaldo Nguyen on 11-26-2024 TSH Qn < 0.005 uIU/mL Low 0.300-4.200 [facility] Thyroid Stim Hormone (TSH)on 11-26-2024 TSH Qn m[IU]/L Low 0.300-4.200 [facility] Comment on above: Performed By: #### L 501.9985, L506.0200, L501.9100, L501.9520, L501.5200, L505.5000 ####[facility] [address] [place], [address] Troponin T HS 2 HRon 025 Trop T High Sen 27 ng/L High <=14 [facility] Comment on above: Performed By: #### L 499.0042 ####[facility] [address] [place], [address] Troponin T HS 4 HRon 025 Trop T High Sen 29 ng/L High <=14 [facility] Comment on above: Performed By: #### L 499.0043 ####[facility] [address] [place], [address] Troponin T.cardiac [Mass/vol ume] in Serum or Plasma by High sensitivity methodOrdered By: Stephanie Kincaid on 11-26-2024 Troponin T.cardiac High sensitivity method [Mass/Vol] 29 ng/L High <14 [facility] Troponin T.cardiac High sensitivity method [Mass/Vol] 27 ng/L High <14 [facility] Troponin T.cardiac High sensitivity method [Mass/Vol] 28 ng/L High <14 [facility] Urinalysis, Completeon 11-26 AMORPHOUS 1+ Normal [facility] Comment on above: Order Comment: CLEAN CATCH Performed By: #### L 400.0001 ####[facility] [address] [place], [address] BACTERIA 2+ /hpf Normal None Seen [facility] Comment on above: Order Comment: CLEAN CATCH Performed By: #### L 400.0001 ####[facility] [address] [place], [address] EPI,SQUAMOUS 10-25 SEEN Normal 5-10 [facility] Comment on above: Order Comment: CLEAN CATCH Performed By: #### L 400.0001 ####[facility] [address] [place], [address] RBC 0-5 SEEN Normal 0-5 [facility] Comment on above: Order Comment: CLEAN CATCH Performed By: #### L 400.0001 ####[facility] [address] [place], [address] WBC 0-5 SEEN Normal 0-5 [facility] Comment on above: Order Comment: CLEAN CATCH Performed By: #### L 400.0001 ####[facility] [address] [place], [address] Mucus Ql (Urine sed) 0 SEEN Normal [facility] Comment on above: Order Comment: CLEAN CATCH Performed By: #### L 400.0001 ####[facility] [address] [place], [address] Urine Drug Screen (VISTA)on 11-26-2024 AMPHETAMINES Negative Normal <1000 ng/mL [facility] Comment on above: Performed By: #### L 501.9985, L506.0200, L501.9100, L501.9520, L501.5200, L505.5000 ####[facility] [address] [place], [address] BARBITIURATES Negative Normal < 200 ng/mL [facility] Comment on above: Performed By: #### L 501.9985, L506.0200, L501.9100, L501.9520, L501.5200, L505.5000 ####[facility] [address] [place], [place], [phone] BENZODIAZIPINE Negative Normal < 200 ng/mL [facility] Comment on above: Performed By: #### L 501.9985, L506.0200, L501.9100, L501.9520, L501.5200, L505.5000 ####[facility] [address] [place] [address] BUP Ur Drug Scr Negative Normal < 200 ng/mL [facility] Comment on above: Performed By: #### L 501.9985, L506.0200, L501.9100, L501.9520, L501.5200, L505.5000 ####[facility] [address] [place], [place], [phone] COCAINE Negative Normal < 300 ng/mL [facility] Comment on above: Performed By: #### L 501.9985, L506.0200, L501.9100, L501.9520, L501.5200, L505.5000 ####[facility] [address] [place] [address] Fentanyl Negative Normal <5 ng/mL [facility] Comment on above: Result Comment: CONF IRMATORY TESTING FOR ALL POSITIVE URINE DRUG SCREENRESULTS WILL ONLY BE SENT OUT UPON PHYSICIAN ORDER.Ben Pro Urine Drug Screen methods provide only preliminaryanalytical test results. A more specific alternate chemicalmethod must be used in order to obtain a confirmedanalytical result. Gas chromatography/mass spectrometery(GC/MS) is the preferred confirmatory method. Clinicalconsideration and professional judgement should be appliedto any drug of abuse test result, particularly whenpreliminary positive results are used.Urine TCA testing must be ordered separately. Use testmnemonic: [facility] Performed By: #### L 501.9985, L506.0200, L501.9100, L501.9520, L501.5200, L505.5000 ####[facility] [address] [place], [place], [phone] METHADONE Negative Normal < 300 ng/mL [facility] Comment on above: Performed By: #### L 501.9985, L506.0200, L501.9100, L501.9520, L501.5200, L505.5000 ####[facility] [address] [place], [address] OPIATES Negative Normal < 300 ng/mL [facility] Comment on above: Performed By: #### L 501.9985, L506.0200, L501.9100, L501.9520, L501.5200, L505.5000 ####[facility] [address] [place], [address] OXYCODONE Negative Normal < 100 ng/mL [facility] Comment on above: Performed By: #### L 501.9985, L506.0200, L501.9100, L501.9520, L501.5200, L505.5000 ####[facility] [address] [place], [place], [phone] PCP Negative Normal < 25 ng/mL [facility] Comment on above: Performed By: #### L 501.9985, L506.0200, L501.9100, L501.9520, L501.5200, L505.5000 ####[facility] [address] [place], [address] THC Negative Normal < 50 ng/mL [facility] Comment on above: Performed By: #### L 501.9985, L506.0200, L501.9100, L501.9520, L501.5200, L505.5000 ####[facility] [address] [place], [address] Urine clarityOrdered By: Sally Kincaid on 11-26-2024 Clarity (U) Sl. Cloudy Clear [facility] Urine color determinationOrd ered By: Stephanie Kincaid on 11-26-2024 Color (U) Yellow Yellow [facility] Urine glucose detectionOrder ed By: Stephanie Kincaid on 11-26-2024 Glucose Ql (U) Normal mg/dl Normal [facility] Urine leukocyte esterase det ection by dipstickOrdered By: Stephanie Kincaid on 11-26-2024 Leukocyte esterase Test strip Ql (U) Negative Negative [facility] Urine pHOrdered By: Stephanie white on 11-26-2024 pH (U) 6.5 [pH] 5.0 - 8.0 [facility] Urine phencyclidine (PCP) de tectionOrdered By: Reynaldo Nguyen on 11-26-2024 Phencyclidine Ql (U) Negative < 25 ng/mL [facility] Urine sediment bacteria coun t by microscopy (number/high power field)Ordered By: Stephanie Kincaid on 11-26-2024 Bacteria LM.HPF (Urine sed) [#/Area] 2 /[HPF] None Seen [facility] Urine specific gravity measu rementOrdered By: Stephanie Kincaid on 11-26-2024 Specific gravity (U) [Rel density] 1.015 1.002-1.030 [facility] Urine urobilinogen measureme ntOrdered By: Stephanie Kincaid on 11-26-2024 Urobilinogen Ql (U) Normal mg/dl Normal [facility] Vitamin B12on 11-26-2024 Cobalamin (Vitamin B12) [Mass/Vol] 439 pg/mL Normal 180-914 [facility] Comment on above: Performed By: #### L 503.0106 ####[facility] [address] [place], [place], [address] Vitamin B12 ser/plasOrdered By: Reynaldo Nguyen on 11-26-2024 Cobalamin (Vitamin B12) [Mass/Vol] 439 pg/mL 180-914 [facility] White blood cell countOrdere d By: Stephanie Kincaid on 11-26-2024 White blood cell count 0-5 SEEN /hpf 0-5 [facility] Urine Cultureon 10-28-2024 URC Normal [facility] Comment on above: Performed By: #### M 100.2200, L400.0001 ####[facility] [address] [place], [place], [phone] Absolute lymphocyte countOrd ered By: Aranza Little on 10-26-2024 Lymphocytes Auto (Unsp spec) [#/Vol] 0.88 10*3/uL 0.83-4.51 [facility] Absolute neutrophil countOrd ered By: Aranza Little on 10-26-2024 Neutrophils (Bld) [#/Vol] 4.7 10*3/uL 2.0-7.7 [facility] Anion gap in Serum or Plasma Ordered By: Aranza Little on 10-26-2024 Anion gap [Moles/Vol] 7 mmol/L 5-15 [facility] Automated lymphocyte count a s percentage of total leukocytesOrdered By: Aranza Little on 10-26-2024 Lymphocytes/100 WBC Auto (Unsp spec) 13.8 % Low 19-41 [facility] BUN/creatinine ratioOrdered By: Aranza Little on 10-26-2024 Urea nitrogen/Creatinine [Mass ratio] 31.8 mg/mg High 10- [facility] Basic Metabolic Profile (BMP )on 10-26-2024 BUN/CRE 31.8 RATIO High 10 [facility] Comment on above: Performed By: #### L 500.2500, L500.4100, L100.0100 ####[facility] [address] [place], [address] Calcium [Mass/Vol] 9.6 mg/dL Normal 7.6-11.0 [facility] Comment on above: Performed By: #### L 500.2500, L500.4100, L100.0100 ####[facility] [address] [place], [address] Chloride [Moles/Vol] 105 mmol/L Normal 98-108 [facility] Comment on above: Performed By: #### L 500.2500, L500.4100, L100.0100 ####[facility] [address] [place], [address] CO2 [Moles/Vol] 27.0 mmol/L Normal 21.0-32.0 [facility] Comment on above: Performed By: #### L 500.2500, L500.4100, L100.0100 ####[facility] [address] [place], [address] Creatinine [Mass/Vol] 0.49 mg/dL Low 0.70-1.20 [facility] Comment on above: Performed By: #### L 500.2500, L500.4100, L100.0100 ####[facility] [address] [place], [address] ECRCL 53.57 ml/min Normal 50-250 [facility] Comment on above: Performed By: #### L 500.2500, L500.4100, L100.0100 ####[facility] [address] [place], [address] GAP 7 Normal 5-15 [facility] Comment on above: Performed By: #### L 500.2500, L500.4100, L100.0100 ####[facility] [address] [place], [address] GFR/1.73 sq M.predicted among non-blacks MDRD (S/P/Bld) [Vol rate/Area] 95 mL/min/{1.73_m2} Normal >60 [facility] Comment on above: Result Comment: mL/m in/1.73m2 CKD-EPI Creatinine Equation (2020) Performed By: #### L 500.2500, L500.4100, L100.0100 ####[facility] [address] [place], [address] Glucose [Mass/Vol] 111 mg/dL High 70-99 [facility] Comment on above: Performed By: #### L 500.2500, L500.4100, L100.0100 ####[facility] [address] [place], [address] Potassium [Moles/Vol] 4.3 mmol/L Normal 3.3-5.1 [facility] Comment on above: Performed By: #### L 500.2500, L500.4100, L100.0100 ####[facility] [address] [place], [address] Sodium [Moles/Vol] 139 mmol/L Normal 133-145 [facility] Comment on above: Performed By: #### L 500.2500, L500.4100, L100.0100 ####[facility] [address] [place], [address] Urea nitrogen [Mass/Vol] 16 mg/dL Normal 4-19 [facility] Comment on above: Performed By: #### L 500.2500, L500.4100, L100.0100 ####[facility] [address] [place], [address] Basophil percentageOrdered B y: Aranza Little on 10-26-2024 Basophils/100 WBC (Bld) 0.2 % 0-1 [facility] CBC W/Diff, Automatedon 08-2 Absolute Lymph 0.88 X10 3/uL Normal 0.83-4.51 [facility] Comment on above: Performed By: #### L 500.2500, L500.4100, L100.0100 ####[facility] [address] [place], [address] Absolute Neut 4.7 X10 3/uL Normal 2.0-7.7 [facility] Comment on above: Performed By: #### L 500.2500, L500.4100, L100.0100 ####[facility] [address] [place], [address] Basophils/100 WBC (Bld) 0.2 % Normal 0-1 [facility] Comment on above: Performed By: #### L 500.2500, L500.4100, L100.0100 ####[facility] [address] [place], [address] Eosinophils/100 WBC (Bld) 1.6 % Normal 0-5 [facility] Comment on above: Performed By: #### L 500.2500, L500.4100, L100.0100 ####[facility] [address] [place], [address] Erythrocyte distribution width (RBC) [Ratio] 12.9 % Normal 11.6-14.6 [facility] Comment on above: Performed By: #### L 500.2500, L500.4100, L100.0100 ####[facility] [address] [place], [address] Hematocrit (Bld) [Volume fraction] 39.5 % Normal 37-47 [facility] Comment on above: Performed By: #### L 500.2500, L500.4100, L100.0100 ####[facility] [address] [place], [address] Hemoglobin (Bld) [Mass/Vol] 13.1 g/dL Normal 12.0-15.0 [facility] Comment on above: Performed By: #### L 500.2500, L500.4100, L100.0100 ####[facility] [address] [place], [address] IG% 0.200 Normal 0.0-0.9 [facility] Comment on above: Result Comment: IG% - Immature Granulocytes (promyelocytes, myelocytes andmetamyelocytes) > 1% indicates that a LEFT SHIFT is Present. Performed By: #### L 500.2500, L500.4100, L100.0100 ####[facility] [address] [place], [address] Lymphocytes/100 WBC (Bld) 13.8 % Low 19-41 [facility] Comment on above: Performed By: #### L 500.2500, L500.4100, L100.0100 ####[facility] [address] [place], [address] MCH (RBC) [Entitic mass] 30.4 pg Normal 27.0-32.0 [facility] Comment on above: Performed By: #### L 500.2500, L500.4100, L100.0100 ####[facility] [address] [place], [address] MCHC (RBC) [Mass/Vol] 33.2 g/dL Normal 32-36 [facility] Comment on above: Performed By: #### L 500.2500, L500.4100, L100.0100 ####[facility] [address] [place], [address] MCV (RBC) [Entitic vol] 91.6 fL Normal 81-99 [facility] Comment on above: Performed By: #### L 500.2500, L500.4100, L100.0100 ####[facility] [address] [place], [address] Monocytes/100 WBC (Bld) 10.3 % High 0-10 [facility] Comment on above: Performed By: #### L 500.2500, L500.4100, L100.0100 ####[facility] [address] [place], [address] Neutrophils/100 WBC (Bld) 73.9 % High 47-70 [facility] Comment on above: Performed By: #### L 500.2500, L500.4100, L100.0100 ####[facility] [address] [place], [address] Nucleated RBC (Bld) [#/Vol] 0 10*3/uL Normal 0-5 [facility] Comment on above: Performed By: #### L 500.2500, L500.4100, L100.0100 ####[facility] [address] [place], [address] Platelet mean volume (Bld) [Entitic vol] 9.4 fL Normal 6.2-12.0 [facility] Comment on above: Performed By: #### L 500.2500, L500.4100, L100.0100 ####[facility] [address] [place], [address] Platelets (Bld) [#/Vol] 170 10*3/uL Normal 150-450 [facility] Comment on above: Performed By: #### L 500.2500, L500.4100, L100.0100 ####[facility] [address] [place], [address] RBC (Bld) [#/Vol] 4.31 10*6/uL Normal 4.2-5.4 [facility] Comment on above: Performed By: #### L 500.2500, L500.4100, L100.0100 ####[facility] [address] [place], [address] RDW SD 43.0 fl Normal 35.1-43.9 [facility] Comment on above: Performed By: #### L 500.2500, L500.4100, L100.0100 ####[facility] [address] [place], [address] WBC (Bld) [#/Vol] 6.4 10*3/uL Normal 4.4-11.0 [facility] Comment on above: Performed By: #### L 500.2500, L500.4100, L100.0100 ####[facility] [address] [place], [address] Calculated very low density lipoprotein (VLDL) cholesterol measurementOrdered By: Aranza Little on 10-26-2024 Calculated very low density lipoprotein (VLDL) cholesterol measurement 15 mg/dL 5-40 [facility] Carbon dioxide, total [Moles /volume] in Central venous bloodOrdered By: Aranza Little on 10-26-2024 CO2 [Moles/Vol] 27.0 mmol/L 21.0-32.0 [facility] Cardiovascular stress test r eportOrdered By: Franko Franco on 10-26-2024 Study report [facility] [address] [place] [address] MR#: [id number] Acct: [id number] Name: AYAN CARRILLO Rep #: [id number] : 1945 79 From: Franko Franco MD Primary Care: Dr. Brayan Thompson MD Status: ADM HERSON Referring Dr: Sex: F C Stress Test Report Pharmacologic/Lexiscan myocardial perfusion stress test. Indication; 79-year-old patient with history of CAD with previous PCI to the left circumflexartery History of atrial fibrillation. Presented with symptoms of chest pain and evaluated by Lexiscan sestamibi. Stress protocol: Resting EKG demonstrates. Normal sinus rhythm. 0.4 mg of regadenoson was infused per usual protocol followed by rapid intravenous saline flush injection continuous EKG monitoring was performed. Themaximum heart rate attained was 114 bpm which was 81% of maximum predicted heart. Stress EKG showed[, no significant change from the resting EKG, with maximum heart rate of 114 bpm. Arrhythmia: Infrequent PACs Symptoms: Patient had no symptoms of chest pain Blood pressure at rest: 130/86 mmHg, blood pressure at the end of stress: 130/86 mmHg Myocardial perfusion protocol. [15 mCi ]of Technetium 99m Sestamibi was injected at rest. [ 0.4 mg ]of Regadenoson was infused per usual protocol peak infusion[43.7 mCi ]of Zbkyugsutf19u sestamibi was injected. Stress images were obtained stress and rest images were reconstructed and compared in the short axis vertical and horizontal long axis. Gated images were also obtained Perfusion SPECT analysis: Review of the images demonstrate normal uptake of sestamibi at rest, post stress images demonstrate similar uptake of sestamibi to the resting images, homogeneous tracer uptake With no evidence of reversible myocardial ischemia. Gated SPECT analysis: The gated ejection fraction is [75%]. Normal LV wall motion. With normal LV systolic function Conclusion: Negative Lexiscan sestamibi myocardial perfusion study for reversible myocardial ischemia Normal LV wall motion and normal LV systolic function. Franko Franco MD,[facility] volunteer fire fighter 10/26/24 1317 Date _ Franko Franco MD CC: Dr. Brayan Thompson MD; Dr. Seth Flores MD; Dr. Aranza Little MD; Dr. Jaylen Jack DO ~ Date Dictated: 10/26/24 1309 Date Transcribed: 10/26/[address] Car Mechanic: FB Signed [facility] Work Phone: Chloride assayOrdered By: Pedrito Little on 10-26-2024 Chloride [Moles/Vol] 105 mmol/L 98-108 [facility] Discharge Instructionon 10-01 Discharge Instruction Normal [facility] Echocardiogram study reportO rdered By: Franko Fracno on 10-26-2024 Study report [facility] [address] [place] [address] Echo Complete 10/26/24823 MR#: [id number] Acct: [id number] Name: AYAN CARRILLO Rep #:[id number] : 1945 79 From: Franko Franco MD Attending Dr: Dr. Seth Flores MD Status: ADM HERSON Ordering Dr: Aranza Little MD Date: Location: [facility] Sex: F C Admitted: 10/25/24 Reason For Study Reason For Study: Chest Pain Procedure This was a 2D Doppler, Color Flow transthoracic echocardiogram. Exam performed in department. Left Ventricle Normal left ventricle. The estimated ejection fraction is 55???60 %. Right Ventricle Normal right ventricle. Normal systolic function. Atria The left atrium is moderately enlarged. Mitral Valve The mitral valve is structurally normal. No prolapse or stenosis seen. Mild (1+)mitral valve insufficiency. Tricuspid Valve Normal tricuspid valve. Mild to moderate (1-2+) tricuspid valve insufficiency. Aortic Valve Trisinus/trileaflet aortic valve. Pulmonic Valve The pulmonic valve is not well visualized. Great Vessels The aortic root is not well visualized. Pericardium/Pleural No pericardial effusion. MMode/2D Measurements & Calculations LVIDd: 4.6 cm IVSd: 1.1 cm CO(Teich): 5.3 l/min LVIDs: 2.6 cm LVPWd: 1.1 cm RVDd: 4.4 cm FS: 44.0 % _ Ao root diam: 3.4 cm LAV(MOD-bp): 78.1 ml LVAd ap4: 30.6 cm2 LAV(MOD-bp) Indexed: 44.1 ml/m2 LVLd ap4: 7.8 cm LAV(MOD-sp2): 78.8 ml EDV(MOD-sp4): 96.4 ml LAV(MOD-sp4): 68.7 ml EDV(sp4-el): 101.5 ml LVAs ap4: 16.3 cm2 LVLs ap4: 6.6 cm ESV(MOD-sp4): 34.2 ml ESV(sp4-el): 33.9 ml EF(MOD-sp4): 64.5 % EF(sp4-el): 66.6 % _ CO(MOD-sp4): 4.4 l/min SV(sp4-el): 67.6 ml LA A4 area: 21.1 cm2 SV(MOD-sp4): 62.2 ml SI(MOD-sp4): 35.1 ml/m2 LA dimension(2D): 4.5 cm RA A4 area: 19.1 cm2 TAPSE: 2.4 cm Time Measurements MV dec time: 0.20 sec Doppler Measurements & Calculations MV E max lazara: 118.3 cm/sec Lat Peak E' Lazara: 7.9 cm/sec Med Peak E' Lazara: 6.6 cm/sec MV A max lazara: 119.6 cm/sec E/E' lat: 14.9 E/E' med: 18.0 MV E/A: 0.99 MV V2 max: 163.1 cm/sec MV P1/2t max lazara: 165.0 cm/sec Ao V2 max: 169.9 cm/sec MV max P.6 mmHg MV P1/2t: 76.4 msec Ao max P.6 mmHg MV V2 mean: 85.4 cm/sec Ao V2 mean: 108.9 cm/sec MV mean P.6 mmHg MV dec slope: 632.2 cm/sec2 Ao mean P.5 mmHg MV V2 VTI: 45.5 cm MVA(P1/2t): 2.9 cm2 Ao V2 VTI: 35.9 cm AV (velocity ratio): 0.68 LV V1 max: 124.3 cm/sec MR max lazara: 620.1 cm/sec TR max lazara: 288.4 cm/sec LV V1 max P.2 mmHg MR max P.0 mmHg TR max P.2 mmHg LV V1 mean P.0 mmHg LV V1 mean: 81.2 cm/sec LV V1 VTI: 24.6 cm ECHO/Echo Complete Interpretation Summary The estimated ejection fraction is 55???60 %. Stage I diastolic dysfunction Mild MR Mild to moderate TR No pericardial effusion. No significant change from previous echocardiogram. Ordering Physician: Aranza Little Performed By: Ahmet Fish RCS 10/26/24 1446 Date _ Franko Franco MD CC: Dr. Brayan Thompson MD; Dr. Seth Flores MD; Dr. Aranza Little MD ~ Date Dictated: 10/26/24823 Date Transcribed: 10/26/241445 Street Car Mechanic: Signed [facility] Work Phone: Electrocardiogram reportOrde red By: Franko Franco on 10-26-[address] [facility] Cardiovascular Services [address] [place] [id number] 12 Lead EKG 10/25/24 1214 MR#: [id number] Acct: [id number] Name: AYAN CARRILLO Rep #:[id number] : 1945 79 From: Franko Franco MD Attending Dr: Dr. Seth Flores MD Status: ADM HERSON Ordering Dr: Aranza Little MD Date: Location: [facility] Sex: F C Admitted: 10/25/24 Test Reason : CP Blood Pressure : */* mmHG Vent. Rate : 77 BPM Atrial Rate : 77 BPM P-R Int : 126 ms QRS Dur : 98 ms QT Int : 382 ms P-R-T Axes : 38 -25 12 degrees QTcB Int : 432 ms Normal sinus rhythm Minimal voltage criteria for LVH, may be normal variant ( R in aVL ) Anteroseptal infarct , age undetermined Abnormal ECG Confirmed by FRANKO FRANCO ([id number]), order editor KIRSTIN ARAIZA ([id number]) on 10/26/2024 1:54:17 PM Referred By: KEYONA/JORGE Confirmed By: FRANKO FRANCO 10/26/24 6439 Date _ Franko Franco MD CC: Dr. Brayan Thompson MD; Dr. Seth Flores MD; Dr. Aranza Little MD ~ Signed [facility] Work Phone: [phone] Eosinophil percentageOrdered By: Aranza Little on 10-26-2024 Eosinophils/100 WBC (Bld) 1.6 % 0-5 [facility] Erythrocyte distribution wid th ratioOrdered By: Aranza Little on 10-26-2024 Erythrocyte distribution width (RBC) [Ratio] 12.9 % 11.6-14.6 [facility] Erythrocyte distribution wid th standard deviationOrdered By: Aranza Little on 10-26-2024 Erythrocyte distribution width (RBC) [Ratio] 43.0 fl 35.1-43.9 [facility] Glomerular filtration rate ( GFR) estimation/1.73 sq m using serum, plasma, or whole bOrdered By: Aranza Little on 10-26-2024 GFR/1.73 sq M.predicted among non-blacks MDRD (S/P/Bld) [Vol rate/Area] 95 mL/min/{1.73_m2} >60 [facility] Comment on above: mL/min/1.73m2 CKD-EP I Creatinine Equation (2020) Hematocrit Auto (Bld) [Volum e fraction]Ordered By: Aranza Little on 10-26-2024 Hematocrit (Bld) [Volume fraction] 39.5 % 37-47 [facility] Hemoglobin measurementOrdere d By: Aranza Little on 10-26-2024 Hemoglobin (Bld) [Mass/Vol] 13.1 g/dL 12.0-15.0 [facility] Immature granulocytes/100 WB C Auto (Bld)Ordered By: Aranza Little on 10-26-2024 Immature granulocytes/100 WBC (Bld) 0.200 % 0.0-0.9 [facility] Comment on above: IG% - Immature Granu locytes (promyelocytes, myelocytes and metamyelocytes) > 1% indicates that a LEFT SHIFT is Present. LDL calc ser/plasOrdered By: Aranza Little on 10-26-2024 Cholesterol in LDL [Mass/Vol] 38 mg/dL [facility] Comment on above: Kqwkgpedyu=679-398 m g/dL & Higher Lzhj=502 mg/dL or greaterFriedwald Equation for LDL-C Lipid Profileon 10-26-2024 CHOL:HDL 2.49 Normal [facility] Comment on above: Performed By: #### L 500.2500, L500.4100, L100.0100 ####[facility] [address] [place], [address] Cholesterol [Mass/Vol] 89 mg/dL Normal <=200 [facility] Comment on above: Result Comment: Chol esterol level, Desirable <200 mg/dLBorderline high cholesterol 200-239 mg/dLHigh cholesterol >=240 mg/dLRecommendations of the NCEP Adult Treatment Panel for thefollowing risk-cutoff thresholds for the [place] Americanpulation. Performed By: #### L 500.2500, L500.4100, L100.0100 ####[facility] [address] [place], [address] Cholesterol in HDL [Mass/Vol] 36 mg/dL Low [facility] Comment on above: Result Comment: Taty onal Cholesterol Education Program (NCEP) guidelines:<40 mg/dL: Low HDL-cholesterol (major risk factor for CHD)>= 60 mg/dL: High HDL-cholesterol (negative risk factor forCHD)HDL-cholesterol is affected by a number of factors, e.g.smoking, exercise, hormones, sex and age. Performed By: #### L 500.2500, L500.4100, L100.0100 ####[facility] [address] [place], [address] Cholesterol in LDL [Mass/Vol] 38 mg/dL Normal [facility] Comment on above: Result Comment: Bord egqxua=695-333 mg/dL Higher Tzvi=110 mg/dL or greaterFriedwald Equation for LDL-C Performed By: #### L 500.2500, L500.4100, L100.0100 ####[facility] [address] [place], [address] Cholesterol in VLDL [Mass/Vol] 15 mg/dL Normal 5-40 [facility] Comment on above: Performed By: #### L 500.2500, L500.4100, L100.0100 ####[facility] [address] [place], [address] Triglyceride [Mass/Vol] 76 mg/dL Normal [facility] Comment on above: Result Comment: The drugs N-Acetylcysteine and Metamizole may falselydepress this assay.Normal range: <150 mg/dLBorderline High: 150-199 mg/dLHigh: 200-499 mg/dLVery High: >500 mg/dL Performed By: #### L 500.2500, L500.4100, L100.0100 ####[facility] [address] [place], [address] MCV (mean corpuscular volume ) determinationOrdered By: Aranza Little on 10-26-2024 MCV (RBC) [Entitic vol] 91.6 fL 81-99 [facility] Mean corpuscular hemoglobin (MCH) determinationOrdered By: Aranza Little on 10-26-2024 MCH (RBC) [Entitic mass] 30.4 pg 27.0-32.0 [facility] Mean corpuscular hemoglobin concentration (MCHC) determinationOrdered By: Aranza Little on 10-26-2024 MCHC (RBC) [Mass/Vol] 33.2 g/dL 32-36 [facility] Mean platelet volume determi nationOrdered By: Aranza Little on 10-26-2024 Platelet mean volume (Bld) [Entitic vol] 9.4 fL 6.2-12.0 [facility] Monocyte percentageOrdered B y: Aranza Little on 10-26-2024 Monocytes/100 WBC (Bld) 10.3 % High 0-10 [facility] Neutrophil percentageOrdered By: Aranza Little on 10-26-2024 Neutrophils/100 WBC (Bld) 73.9 % High 47-70 [facility] Nucleated red blood cell per centageOrdered By: Aranza Little on 10-26-2024 Nucleated RBC/100 WBC (Bld) [Ratio] 0 % 0-5 [facility] Platelet countOrdered By: Pedrito Little on 10-26-2024 Platelets (Bld) [#/Vol] 170 10*3/uL 150-450 [facility] Potassium measurement (mass/ volume)Ordered By: Aranza Little on 10-26-2024 Potassium (Unsp spec) [Mass/Vol] 4.3 mmol/L 3.3-5.1 [facility] RBC Auto (Bld) [#/Vol]Ordere d By: Aranza Little on 10-26-2024 RBC (Bld) [#/Vol] 4.31 10*6/uL 4.2-5.4 [facility] Screening total cholesterol/ high density lipoprotein (HDL) cholesterol ratioOrdered By: Aranza Little on 10-26-2024 Cholesterol.total/[place] sterol in HDL [Mass ratio] 2.49 {ratio} [facility] Serum creatinine measurement (mass/volume)Ordered By: Aranza Little on 10-26-2024 Creatinine [Mass/Vol] 0.49 mg/dL Low 0.70-1.20 [facility] Serum glucose measurement (m ass/volume)Ordered By: Aranza Little on 10-26-2024 Glucose [Mass/Vol] 111 mg/dL High 70-99 [facility] Serum or plasma calcium aaron urement (mass/volume)Ordered By: Aranza Little on 10-26-2024 Calcium [Mass/Vol] 9.6 mg/dL 7.6-11.0 [facility] Serum or plasma cholesterol in HDL measurement (mass/volume)Ordered By: Aranza Little on 10-26-2024 Cholesterol in HDL [Mass/Vol] 36 mg/dL Low >40 [facility] Comment on above: National Cholesterol Education Program (NCEP) guidelines:<40 mg/dL: Low HDL-cholesterol (major risk factor for CHD)>= 60 mg/dL: High HDL-cholesterol (negative risk factor for CHD)HDL-cholesterol is affected by a number of factors, e.g. smoking, exercise, hormones, sex and age. Serum or plasma cholesterol measurement (mass/volume)Ordered By: Aranza Little on 10-26-2024 Cholesterol [Mass/Vol] 89 mg/dL <[address] [facility] Comment on above: Cholesterol level, D esirable <200 mg/dLBorderline high cholesterol 200-239 mg/dLHigh cholesterol >=240 mg/dLRecommendations of the NCEP Adult Treatment Panel for the following risk-cutoff thresholds for the [place] population. Serum or plasma urea nitroge n measurement (mass/volume)Ordered By: Aranza Little on 10-26-2024 Urea nitrogen [Mass/Vol] 16 mg/dL 4-19 [facility] Sodium levelOrdered By: Funmilayo Little on 10-26-2024 Sodium [Moles/Vol] 139 mmol/L 133-145 [facility] Stress Reporton 10-26-2024 Stress Report Normal [facility] Triglycerides measurementOrd ered By: Aranza Little on 10-26-2024 Triglyceride [Mass/Vol] 76 mg/dL <199 [facility] Comment on above: The drugs N-Acetylcy steine and Metamizole may falsely depress this assay. Normal range: <150 mg/dLBorderline High: 150-199 mg/dLHigh: 200-499 mg/dLVery High: >500 mg/dL Urinalysis, Completeon 10-26 CAST,HYALINE 0-5 SEEN Normal 0-5 [facility] Comment on above: Order Comment: CLEAN CATCH Performed By: #### M 100.2200, L400.0001 ####[facility] [address] [place], [address] BACTERIA 2+ /hpf Normal None Seen [facility] Comment on above: Order Comment: CLEAN CATCH Performed By: #### M 100.2200, L400.0001 ####[facility] [address] [place], [address] EPI,TRANSITION 0-5 SEEN Normal 0-5 [facility] Comment on above: Order Comment: CLEAN CATCH Performed By: #### M 100.2200, L400.0001 ####[facility] [address] [place], [address] RBC 0-5 SEEN Normal 0-5 [facility] Comment on above: Order Comment: CLEAN CATCH Performed By: #### M 100.2200, L400.0001 ####[facility] [address] [place], [address] WBC 0-5 SEEN Normal 0-5 [facility] Comment on above: Order Comment: CLEAN CATCH Performed By: #### M 100.2200, L400.0001 ####[facility] [address] [place], [address] CA OX CRYSTAL 3+ /hpf Normal [facility] Comment on above: Order Comment: CLEAN CATCH Performed By: #### M 100.2200, L400.0001 ####[facility] [address] [place], [address] EPI,SQUAMOUS 25-50 SEEN Normal 5-10 [facility] Comment on above: Order Comment: CLEAN CATCH Performed By: #### M 100.2200, L400.0001 ####[facility] [address] [place], [address] Mucus Ql (Urine sed) 0 SEEN Normal [facility] Comment on above: Order Comment: CLEAN CATCH Performed By: #### M 100.2200, L400.0001 ####[facility] [address] [place], [address] White blood cell (WBC) count Ordered By: Aranza Little on 10-26-2024 WBC (Bld) [#/Vol] 6.4 10*3/uL 4.4-11.0 [facility] 12 Lead EKGon 10-25-2024 12 Lead EKG Normal [facility] Absolute lymphocyte countOrd ered By: Jaylen Jack on 10-25-2024 Lymphocytes Auto (Unsp spec) [#/Vol] 0.86 10*3/uL 0.83-4.51 [facility] Absolute neutrophil countOrd ered By: Jaylen Jack on 10-25-2024 Neutrophils (Bld) [#/Vol] 5.1 10*3/uL 2.0-7.7 [facility] Anion gap in Serum or Plasma Ordered By: Jaylen Jack on 10-25-2024 Anion gap [Moles/Vol] 10 mmol/L 5-15 [facility] Automated lymphocyte count a s percentage of total leukocytesOrdered By: Jaylen Jack on 10-25-2024 Lymphocytes/100 WBC Auto (Unsp spec) 13.1 % Low 19-41 [facility] BUN/creatinine ratioOrdered By: Jaylen Jack on 10-25-2024 Urea nitrogen/Creatinine [Mass ratio] 31.8 mg/mg High 10-20 [facility] Basophil percentageOrdered B y: Jaylen Jack on 10-25-2024 Basophils/100 WBC (Bld) 0.3 % 0-1 [facility] Bilirubin Test strip Ql (U)O rdered By: Aranza Little on 10-25-2024 Bilirubin Ql (U) Negative Negative [facility] Bilirubin, totalOrdered By: Jaylen Jack on 10-25-2024 Bilirubin [Mass/Vol] 0.78 mg/dL 0.00-1.30 [facility] CBC W/Diff, Automatedon 10-01 Absolute Lymph 0.86 X10 3/uL Normal 0.83-4.51 [facility] Comment on above: Performed By: #### L 100.0100, L500.4050, L501.4021 ####[facility] [address] [place], [address] Absolute Neut 5.1 X10 3/uL Normal 2.0-7.7 [facility] Comment on above: Performed By: #### L 100.0100, L500.4050, L501.4021 ####[facility] [address] [place], [address] Basophils/100 WBC (Bld) 0.3 % Normal 0-1 [facility] Comment on above: Performed By: #### L 100.0100, L500.4050, L501.4021 ####[facility] [address] [place], [address] Eosinophils/100 WBC (Bld) 1.1 % Normal 0-5 [facility] Comment on above: Performed By: #### L 100.0100, L500.4050, L501.4021 ####[facility] [address] [place], [address] Erythrocyte distribution width (RBC) [Ratio] 13.0 % Normal 11.6-14.6 [facility] Comment on above: Performed By: #### L 100.0100, L500.4050, L501.4021 ####[facility] [address] [place], [address] Hematocrit (Bld) [Volume fraction] 43.7 % Normal 37-47 [facility] Comment on above: Performed By: #### L 100.0100, L500.4050, L501.4021 ####[facility] [address] [place], [address] Hemoglobin (Bld) [Mass/Vol] 14.2 g/dL Normal 12.0-15.0 [facility] Comment on above: Performed By: #### L 100.0100, L500.4050, L501.4021 ####[facility] [address] [place], [address] IG% 0.500 Normal 0.0-0.9 [facility] Comment on above: Result Comment: IG% - Immature Granulocytes (promyelocytes, myelocytes andmetamyelocytes) > 1% indicates that a LEFT SHIFT is Present. Performed By: #### L 100.0100, L500.4050, L501.4021 ####[facility] [address] [place], [address] Lymphocytes/100 WBC (Bld) 13.1 % Low 19-41 [facility] Comment on above: Performed By: #### L 100.0100, L500.4050, L501.4021 ####[facility] [address] [place], [address] MCH (RBC) [Entitic mass] 29.6 pg Normal 27.0-32.0 [facility] Comment on above: Performed By: #### L 100.0100, L500.4050, L501.4021 ####[facility] [address] [place], [address] MCHC (RBC) [Mass/Vol] 32.5 g/dL Normal 32-36 [facility] Comment on above: Performed By: #### L 100.0100, L500.4050, L501.4021 ####[facility] [address] [place], [address] MCV (RBC) [Entitic vol] 91.2 fL Normal 81-99 [facility] Comment on above: Performed By: #### L 100.0100, L500.4050, L501.4021 ####[facility] [address] [place], [address] Monocytes/100 WBC (Bld) 7.9 % Normal 0-10 [facility] Comment on above: Performed By: #### L 100.0100, L500.4050, L501.4021 ####[facility] [address] [place], [address] Neutrophils/100 WBC (Bld) 77.1 % High 47-70 [facility] Comment on above: Performed By: #### L 100.0100, L500.4050, L501.4021 ####[facility] [address] [place], [address] Nucleated RBC (Bld) [#/Vol] 0 10*3/uL Normal 0-5 [facility] Comment on above: Performed By: #### L 100.0100, L500.4050, L501.4021 ####[facility] [address] [place], [address] Platelet mean volume (Bld) [Entitic vol] 10.1 fL Normal 6.2-12.0 [facility] Comment on above: Performed By: #### L 100.0100, L500.4050, L501.4021 ####[facility] [address] [place], [address] Platelets (Bld) [#/Vol] 232 10*3/uL Normal 150-450 [facility] Comment on above: Performed By: #### L 100.0100, L500.4050, L501.4021 ####[facility] [address] [place], [address] RBC (Bld) [#/Vol] 4.79 10*6/uL Normal 4.2-5.4 [facility] Comment on above: Performed By: #### L 100.0100, L500.4050, L501.4021 ####[facility] [address] [place], [address] RDW SD 43.1 fl Normal 35.1-43.9 [facility] Comment on above: Performed By: #### L 100.0100, L500.4050, L501.4021 ####[facility] [address] [place], [address] WBC (Bld) [#/Vol] 6.6 10*3/uL Normal 4.4-11.0 [facility] Comment on above: Performed By: #### L 100.0100, L500.4050, L501.4021 ####[facility] [address] [place], [address] Calcium oxalate crystals det ection in urine sediment by light microscopyOrdered By: Aranza Little on 10-25-2024 Calcium oxalate crystals LM Ql (Urine sed) 3+ /hpf [facility] Carbon dioxide, total [Moles /volume] in Central venous bloodOrdered By: Jaylen Jack on 10-25-2024 CO2 [Moles/Vol] 25.4 mmol/L 21.0-32.0 [facility] Chest 1 View (Portable)on Chest 1 View (Portable) Normal [facility] Chloride assayOrdered By: Th maryuri Jack on 10-25-2024 Chloride [Moles/Vol] 104 mmol/L 98-108 [facility] Comprehensive Metabolic Prof ilon 10-25-2024 Albumin [Mass/Vol] 3.4 g/dL Normal 3.4-4.8 [facility] Comment on above: Performed By: #### L 100.0100, L500.4050, L501.4021 ####[facility] [address] [place], [address] Albumin/Globulin [Mass ratio] 1.2 {ratio} Normal 0.9-2.4 [facility] Comment on above: Performed By: #### L 100.0100, L500.4050, L501.4021 ####[facility] [address] [place], [address] ALK PHOS 103 U/L Normal 35-104 [facility] Comment on above: Performed By: #### L 100.0100, L500.4050, L501.4021 ####[facility] [address] [place], [address] ALT [Catalytic activity/Vol] 14 U/L Normal <=34 [facility] Comment on above: Performed By: #### L 100.0100, L500.4050, L501.4021 ####[facility] [address] [place], [address] AST [Catalytic activity/Vol] 17 U/L Normal <=31 [facility] Comment on above: Performed By: #### L 100.0100, L500.4050, L501.4021 ####[facility] [address] [place], [address] Bilirubin [Mass/Vol] 0.78 mg/dL Normal 0.00-1.30 [facility] Comment on above: Performed By: #### L 100.0100, L500.4050, L501.4021 ####[facility] [address] [place], [address] BUN/CRE 31.8 RATIO High 10-20 [facility] Comment on above: Performed By: #### L 100.0100, L500.4050, L501.4021 ####[facility] [address] [place], [address] Calcium [Mass/Vol] 10.2 mg/dL Normal 7.6-11.0 [facility] Comment on above: Performed By: #### L 100.0100, L500.4050, L501.4021 ####[facility] [address] [place], [address] Chloride [Moles/Vol] 104 mmol/L Normal 98-108 [facility] Comment on above: Performed By: #### L 100.0100, L500.4050, L501.4021 ####[facility] [address] [place], [address] CO2 [Moles/Vol] 25.4 mmol/L Normal 21.0-32.0 [facility] Comment on above: Performed By: #### L 100.0100, L500.4050, L501.4021 ####[facility] [address] [place], [address] Creatinine [Mass/Vol] 0.52 mg/dL Low 0.70-1.20 [facility] Comment on above: Performed By: #### L 100.0100, L500.4050, L501.4021 ####[facility] [address] [place], [address] ECRCL 57.78 ml/min Normal 50-250 [facility] Comment on above: Performed By: #### L 100.0100, L500.4050, L501.4021 ####[facility] [address] [place], [address] GAP 10 Normal 5-15 [facility] Comment on above: Performed By: #### L 100.0100, L500.4050, L501.4021 ####[facility] [address] [place], [address] GFR/1.73 sq M.predicted among non-blacks MDRD (S/P/Bld) [Vol rate/Area] 94 mL/min/{1.73_m2} Normal >60 [facility] Comment on above: Result Comment: mL/m in/1.73m2 CKD-EPI Creatinine Equation (2020) Performed By: #### L 100.0100, L500.4050, L501.4021 ####[facility] [address] [place], [address] Globulin (S) [Mass/Vol] 2.7 g/dL Normal 2.2-4.2 [facility] Comment on above: Performed By: #### L 100.0100, L500.4050, L501.4021 ####[facility] [address] [place], [address] Glucose [Mass/Vol] 141 mg/dL High 70-99 [facility] Comment on above: Performed By: #### L 100.0100, L500.4050, L501.4021 ####[facility] [address] [place], [address] Potassium [Moles/Vol] 4.2 mmol/L Normal 3.3-5.1 [facility] Comment on above: Performed By: #### L 100.0100, L500.4050, L501.4021 ####[facility] [address] [place], [address] Sodium [Moles/Vol] 139 mmol/L Normal 133-145 [facility] Comment on above: Performed By: #### L 100.0100, L500.4050, L501.4021 ####[facility] [address] [place], [address] T PROT 6.0 g/dL Normal 5.9-8.4 [facility] Comment on above: Performed By: #### L 100.0100, L500.4050, L501.4021 ####[facility] [address] [place], [address] Urea nitrogen [Mass/Vol] 16 mg/dL Normal 4-19 [facility] Comment on above: Performed By: #### L 100.0100, L500.4050, L501.4021 ####[facility] [address] [place], [address] Echo Completeon 10-25-2024 Echo Complete Normal [facility] Emergency Department Summary on 10-25-2024 Emergency Department Summary Normal [facility] Eosinophil percentageOrdered By: Jaylen Jack on 10-25-2024 Eosinophils/100 WBC (Bld) 1.1 % 0-5 [facility] Erythrocyte distribution wid th ratioOrdered By: Jaylen Jack on 10-25-2024 Erythrocyte distribution width (RBC) [Ratio] 13.0 % 11.6-14.6 [facility] Erythrocyte distribution wid th standard deviationOrdered By: Jaylen Jack on 10-25-2024 Erythrocyte distribution width (RBC) [Ratio] 43.1 fl 35.1-43.9 [facility] Glomerular filtration rate ( GFR) estimation/1.73 sq m using serum, plasma, or whole bOrdered By: Jaylen Jack on 10-25-2024 GFR/1.73 sq M.predicted among non-blacks MDRD (S/P/Bld) [Vol rate/Area] 94 mL/min/{1.73_m2} >60 [facility] Comment on above: mL/min/1.73m2 CKD-EP I Creatinine Equation (2020) H AND P Exam - Hospitaliston 10-25-2024 H&P Exam - Hospitalist Normal [facility] Hematocrit Auto (Bld) [Volum e fraction]Ordered By: Jaylen Jack on 10-25-2024 Hematocrit (Bld) [Volume fraction] 43.7 % 37-47 [facility] Hemoglobin measurementOrdere d By: Jaylen Jack on 10-25-2024 Hemoglobin (Bld) [Mass/Vol] 14.2 g/dL 12.0-15.0 [facility] Hyaline casts LM.LPF (Urine sed) [#/Area]Ordered By: Aranza Little on 10-25-2024 Hyaline casts (Urine sed) [#/Area] 0 /[LPF] 0-5 [facility] Immature granulocytes/100 WB C Auto (Bld)Ordered By: Jaylen Jack on 10-25-2024 Immature granulocytes/100 WBC (Bld) 0.500 % 0.0-0.9 [facility] Comment on above: IG% - Immature Granu locytes (promyelocytes, myelocytes and metamyelocytes) > 1% indicates that a LEFT SHIFT is Present. Ketones Test strip Ql (U)Ord ered By: Aranza Little on 10-25-2024 Ketones Ql (U) Negative Negative [facility] L501.4021on 10-25-2024 Trop T High Sen 21 ng/L High <=14 [facility] Comment on above: Performed By: #### L 100.0100, L500.4050, L501.4021 ####[facility] [address] [place], [address] Laboratory - Chemistry and C hemistry - challengeOrdered By: Jaylen Jack on 10-25-2024 AST [Catalytic activity/Vol] 17 U/L <32 [facility] MCV (mean corpuscular volume ) determinationOrdered By: Jaylen Jack on 10-25-2024 MCV (RBC) [Entitic vol] 91.2 fL 81-99 [facility] Mean corpuscular hemoglobin (MCH) determinationOrdered By: Jaylen Jack on 10-25-2024 MCH (RBC) [Entitic mass] 29.6 pg 27.0-32.0 [facility] Mean corpuscular hemoglobin concentration (MCHC) determinationOrdered By: Jaylen Jack on 10-25-2024 MCHC (RBC) [Mass/Vol] 32.5 g/dL 32-36 [facility] Mean platelet volume determi nationOrdered By: Jaylen Jack on 10-25-2024 Platelet mean volume (Bld) [Entitic vol] 10.1 fL 6.2-12.0 [facility] Microscopic analysis of urin e for red blood cells (RBC)Ordered By: Aranza Little on 10-25-2024 Microscopic analysis of urine for red blood cells (RBC) 0-5 SEEN /hpf 0-5 [facility] Monocyte percentageOrdered B y: Jaylen Jack on 10-25-2024 Monocytes/100 WBC (Bld) 7.9 % 0-10 [facility] Mucus LM Ql (Urine sed)Order ed By: Aranza Little on 10-25-2024 Mucus Ql (Urine sed) 0 SEEN /hpf [facility] Neutrophil percentageOrdered By: Jaylen Jack on 10-25-2024 Neutrophils/100 WBC (Bld) 77.1 % High 47-70 [facility] Nitrite Test strip Ql (U)Ord ered By: Aranza Little on 10-25-2024 Nitrite Ql (U) Negative Negative [facility] No Panel InformationOrdered By: Jaylen Jack on 10-25-2024 17 U/L <32 [facility] Nucleated red blood cell per centageOrdered By: Jaylen Jack on 10-25-2024 Nucleated RBC/100 WBC (Bld) [Ratio] 0 % 0-5 [facility] Platelet countOrdered By: maryuri Jack on 10-25-2024 Platelets (Bld) [#/Vol] 232 10*3/uL 150-450 [facility] Potassium measurement (mass/ volume)Ordered By: Jaylen Jack on 10-25-2024 Potassium (Unsp spec) [Mass/Vol] 4.2 mmol/L 3.3-5.1 [facility] Protein Test strip Ql (U)Ord ered By: Aranza Little on 10-25-2024 Protein Ql (U) 30 mg/dl High Negative [facility] RBC Auto (Bld) [#/Vol]Ordere d By: Jaylen Jack on 10-25-2024 RBC (Bld) [#/Vol] 4.79 10*6/uL 4.2-5.4 [facility] Serum creatinine measurement (mass/volume)Ordered By: Jaylen Jack on 10-25-2024 Creatinine [Mass/Vol] 0.52 mg/dL Low 0.70-1.20 [facility] Serum globulin measurementOr dered By: Jaylen Jack on 10-25-2024 Globulin (S) [Mass/Vol] 2.7 g/dL 2.2-4.2 [facility] Serum glucose measurement (m ass/volume)Ordered By: Jaylen Jack on 10-25-2024 Glucose [Mass/Vol] 141 mg/dL High 70-99 [facility] Serum or plasma alanine rajput otransferase (ALT) measurementOrdered By: Jaylen Jack on 10-25-2024 ALT [Catalytic activity/Vol] 14 U/L <35 [facility] Serum or plasma albumin aaron urement (mass/volume)Ordered By: Jaylen Jack on 10-25-2024 Albumin [Mass/Vol] 3.4 g/dL 3.4-4.8 [facility] Serum or plasma albumin/glob ulin mass ratioOrdered By: Jaylen Jack on 10-25-2024 Albumin/Globulin [Mass ratio] 1.2 {ratio} 0.9-2.4 [facility] Serum or plasma alkaline bernardo sphatase measurementOrdered By: Jaylen Jack on 10-25-2024 ALP [Catalytic activity/Vol] 103 U/L 35-104 [facility] Serum or plasma calcium aaron urement (mass/volume)Ordered By: Jaylen Jack on 10-25-2024 Calcium [Mass/Vol] 10.2 mg/dL 7.6-11.0 [facility] Serum or plasma urea nitroge n measurement (mass/volume)Ordered By: Jaylen Jack on 10-25-2024 Urea nitrogen [Mass/Vol] 16 mg/dL 4-19 [facility] Sodium levelOrdered By: Ramos Jack on 10-25-2024 Sodium [Moles/Vol] 139 mmol/L 133-145 [facility] Squamous epithelial cells de tection in urine sediment by light microscopyOrdered By: Aranza Little on 10-25-2024 Epithelial cells.squamous LM Ql (Urine sed) 25-50 SEEN /hpf 5-10 [facility] Total proteinOrdered By: Olesya Jack on 10-25-2024 Protein [Mass/Vol] 6.0 g/dL 5.9-8.4 [facility] Transitional cells detection in urine sediment by light microscopyOrdered By: Aranza Little on 10-25-2024 Transitional cells LM Ql (Urine sed) 0-5 SEEN /hpf 0-5 [facility] Troponin T HS 2 HRon 025 Trop T High Sen 15 ng/L High <=14 [facility] Comment on above: Result Comment: Hemo lysis present, Results??could be affected.?? Performed By: #### L 499.0042 ####[facility] [address] [place], [place], [id number] Troponin T HS 4 HRon 025 Trop T High Sen 18 ng/L High <=14 [facility] Comment on above: Performed By: #### L 499.0043 ####[facility] [address] [place], [place], [id number] Troponin T.cardiac [Mass/vol ume] in Serum or Plasma by High sensitivity methodOrdered By: Jaylen Jack on 10-25-2024 Troponin T.cardiac High sensitivity method [Mass/Vol] 18 ng/L High <14 [facility] Troponin T.cardiac High sensitivity method [Mass/Vol] 15 ng/L High <14 [facility] Comment on above: Hemolysis present, R esults could be affected. Troponin T.cardiac High sensitivity method [Mass/Vol] 21 ng/L High <14 [facility] Urine clarityOrdered By: Enedelia Little on 10-25-2024 Clarity (U) Sl. 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 [facility] Bacteria identified Cx Nom (U) Positive Abnormal [facility] Urine glucose detectionOrder ed By: Aranza Little on 10-25-2024 Glucose Ql (U) Normal mg/dl Normal [facility] Urine leukocyte esterase det ection by dipstickOrdered By: Aranza Little on 10-25-2024 Leukocyte esterase Test strip Ql (U) Negative Negative [facility] Urine pHOrdered By: Aranza houston on 10-25-2024 pH (U) 5.0 [pH] 5.0 - 8.0 [facility] Urine sediment bacteria coun t by microscopy (number/high power field)Ordered By: Aranza Little on 10-25-2024 Bacteria LM.HPF (Urine sed) [#/Area] 2 /[HPF] None Seen [facility] Urine specific gravity measu rementOrdered By: Aranza Little on 10-25-2024 Specific gravity (U) [Rel density] 1.025 1.002-1.030 [facility] Urine urobilinogen measureme ntOrdered By: Aranza Little on 10-25-2024 Urobilinogen Ql (U) Normal mg/dl Normal [facility] White blood cell (WBC) count Ordered By: Jaylen Jack on 10-25-2024 WBC (Bld) [#/Vol] 6.6 10*3/uL 4.4-11.0 [facility] White blood cell countOrdere d By: Aranza Little on 10-25-2024 White blood cell count 0-5 SEEN /hpf 0-5 [facility] 12 Lead EKGon 10-21-2024 12 Lead EKG Normal [facility] Absolute lymphocyte countOrd ered By: Donovan Pierson on 10-21-2024 Lymphocytes Auto (Unsp spec) [#/Vol] 0.94 10*3/uL 0.83-4.51 [facility] Absolute neutrophil countOrd ered By: Donovan Pierson on 10-21-2024 Neutrophils (Bld) [#/Vol] 5.0 10*3/uL 2.0-7.7 [facility] Anion gap in Serum or Plasma Ordered By: Donovan Pierson on 10-21-2024 Anion gap [Moles/Vol] 9 mmol/L 5-15 [facility] Automated lymphocyte count a s percentage of total leukocytesOrdered By: Donovan Pierson on 10-21-2024 Lymphocytes/100 WBC Auto (Unsp spec) 14.0 % Low 19-41 [facility] BUN/creatinine ratioOrdered By: Donvoan Pierson on 10-21-2024 Urea nitrogen/Creatinine [Mass ratio] 34.9 mg/mg High 10- [facility] Basic Metabolic Profile (BMP )on 10-21-2024 BUN/CRE 34.9 RATIO High - [facility] Comment on above: Performed By: #### L 501.4021, L100.0100, L500.2500 ####[facility] [address] [place], [address] Calcium [Mass/Vol] 10.1 mg/dL Normal 7.6-11.0 [facility] Comment on above: Performed By: #### L 501.4021, L100.0100, L500.2500 ####[facility] [address] [place], [address] Chloride [Moles/Vol] 103 mmol/L Normal 98-108 [facility] Comment on above: Performed By: #### L 501.4021, L100.0100, L500.2500 ####[facility] [address] [place], [address] CO2 [Moles/Vol] 27.1 mmol/L Normal 21.0-32.0 [facility] Comment on above: Performed By: #### L 501.4021, L100.0100, L500.2500 ####[facility] [address] [place], [address] Creatinine [Mass/Vol] 0.44 mg/dL Low 0.70-1.20 [facility] Comment on above: Performed By: #### L 501.4021, L100.0100, L500.2500 ####[facility] [address] [place], [address] ECRCL 58.95 ml/min Normal 50-250 [facility] Comment on above: Performed By: #### L 501.4021, L100.0100, L500.2500 ####[facility] [address] [place], [address] GAP 9 Normal 5-15 [facility] Comment on above: Performed By: #### L 501.4021, L100.0100, L500.2500 ####[facility] [address] [place], [address] GFR/1.73 sq M.predicted among non-blacks MDRD (S/P/Bld) [Vol rate/Area] 98 mL/min/{1.73_m2} Normal >60 [facility] Comment on above: Result Comment: mL/m in/1.73m2 CKD-EPI Creatinine Equation (2020) Performed By: #### L 501.4021, L100.0100, L500.2500 ####[facility] [address] [place], [address] Glucose [Mass/Vol] 114 mg/dL High 70-99 [facility] Comment on above: Performed By: #### L 501.4021, L100.0100, L500.2500 ####[facility] [address] [place], [address] Potassium [Moles/Vol] 4.2 mmol/L Normal 3.3-5.1 [facility] Comment on above: Performed By: #### L 501.4021, L100.0100, L500.2500 ####[facility] [address] [place], [address] Sodium [Moles/Vol] 139 mmol/L Normal 133-145 [facility] Comment on above: Performed By: #### L 501.4021, L100.0100, L500.2500 ####[facility] [address] [place], [address] Urea nitrogen [Mass/Vol] 15 mg/dL Normal 4-19 [facility] Comment on above: Performed By: #### L 501.4021, L100.0100, L500.2500 ####[facility] [address] [place], [address] Basophil percentageOrdered B y: Donovan Pierson on 10-21-2024 Basophils/100 WBC (Bld) 0.4 % 0-1 [facility] CBC W/Diff, Automatedon 10-01 Absolute Lymph 0.94 X10 3/uL Normal 0.83-4.51 [facility] Comment on above: Performed By: #### L 501.4021, L100.0100, L500.2500 ####[facility] [address] [place], [address] Absolute Neut 5.0 X10 3/uL Normal 2.0-7.7 [facility] Comment on above: Performed By: #### L 501.4021, L100.0100, L500.2500 ####[facility] [address] [place], [address] Basophils/100 WBC (Bld) 0.4 % Normal 0-1 [facility] Comment on above: Performed By: #### L 501.4021, L100.0100, L500.2500 ####[facility] [address] [place], [address] Eosinophils/100 WBC (Bld) 1.2 % Normal 0-5 [facility] Comment on above: Performed By: #### L 501.4021, L100.0100, L500.2500 ####[facility] [address] [place], [address] Erythrocyte distribution width (RBC) [Ratio] 12.7 % Normal 11.6-14.6 [facility] Comment on above: Performed By: #### L 501.4021, L100.0100, L500.2500 ####[facility] [address] [place], [address] Hematocrit (Bld) [Volume fraction] 44.8 % Normal 37-47 [facility] Comment on above: Performed By: #### L 501.4021, L100.0100, L500.2500 ####[facility] [address] [place], [address] Hemoglobin (Bld) [Mass/Vol] 14.6 g/dL Normal 12.0-15.0 [facility] Comment on above: Performed By: #### L 501.4021, L100.0100, L500.2500 ####[facility] [address] [place], [address] IG% 0.300 Normal 0.0-0.9 [facility] Comment on above: Result Comment: IG% - Immature Granulocytes (promyelocytes, myelocytes andmetamyelocytes) > 1% indicates that a LEFT SHIFT is Present. Performed By: #### L 501.4021, L100.0100, L500.2500 ####[facility] [address] [place], [address] Lymphocytes/100 WBC (Bld) 14.0 % Low 19-41 [facility] Comment on above: Performed By: #### L 501.4021, L100.0100, L500.2500 ####[facility] [address] [place], [address] MCH (RBC) [Entitic mass] 29.6 pg Normal 27.0-32.0 [facility] Comment on above: Performed By: #### L 501.4021, L100.0100, L500.2500 ####[facility] [address] [place], [address] MCHC (RBC) [Mass/Vol] 32.6 g/dL Normal 32-36 [facility] Comment on above: Performed By: #### L 501.4021, L100.0100, L500.2500 ####[facility] [address] [place], [address] MCV (RBC) [Entitic vol] 90.9 fL Normal 81-99 [facility] Comment on above: Performed By: #### L 501.4021, L100.0100, L500.2500 ####[facility] [address] [place], [address] Monocytes/100 WBC (Bld) 9.1 % Normal 0-10 [facility] Comment on above: Performed By: #### L 501.4021, L100.0100, L500.2500 ####[facility] [address] [place], [address] Neutrophils/100 WBC (Bld) 75.0 % High 47-70 [facility] Comment on above: Performed By: #### L 501.4021, L100.0100, L500.2500 ####[facility] [address] [place], [address] Nucleated RBC (Bld) [#/Vol] 0 10*3/uL Normal 0-5 [facility] Comment on above: Performed By: #### L 501.4021, L100.0100, L500.2500 ####[facility] [address] [place], [address] Platelet mean volume (Bld) [Entitic vol] 9.6 fL Normal 6.2-12.0 [facility] Comment on above: Performed By: #### L 501.4021, L100.0100, L500.2500 ####[facility] [address] [place], [address] Platelets (Bld) [#/Vol] 208 10*3/uL Normal 150-450 [facility] Comment on above: Performed By: #### L 501.4021, L100.0100, L500.2500 ####[facility] [address] [place], [address] RBC (Bld) [#/Vol] 4.93 10*6/uL Normal 4.2-5.4 [facility] Comment on above: Performed By: #### L 501.4021, L100.0100, L500.2500 ####[facility] [address] [place], [address] RDW SD 42.5 fl Normal 35.1-43.9 [facility] Comment on above: Performed By: #### L 501.4021, L100.0100, L500.2500 ####[facility] [address] [place], [address] WBC (Bld) [#/Vol] 6.7 10*3/uL Normal 4.4-11.0 [facility] Comment on above: Performed By: #### L 501.4021, L100.0100, L500.2500 ####[facility] [address] [place], [address] Carbon dioxide, total [Moles /volume] in Central venous bloodOrdered By: Donovan Pierson on 10-21-2024 CO2 [Moles/Vol] 27.1 mmol/L 21.0-32.0 [facility] Chest 1 View (Portable)on Chest 1 View (Portable) Normal [facility] Chloride assayOrdered By: Joe Pierson on 10-21-2024 Chloride [Moles/Vol] 103 mmol/L 98-108 [facility] Emergency Department Summary on 10-21-2024 Emergency Department Summary Normal [facility] Eosinophil percentageOrdered By: Donovan Pierson on 10-21-2024 Eosinophils/100 WBC (Bld) 1.2 % 0-5 [facility] Erythrocyte distribution wid th ratioOrdered By: Donovan Pierson on 10-21-2024 Erythrocyte distribution width (RBC) [Ratio] 12.7 % 11.6-14.6 [facility] Erythrocyte distribution wid th standard deviationOrdered By: Donovan Pierson on 10-21-2024 Erythrocyte distribution width (RBC) [Ratio] 42.5 fl 35.1-43.9 [facility] Glomerular filtration rate ( GFR) estimation/1.73 sq m using serum, plasma, or whole bOrdered By: Donovan Pierson on 10-21-2024 GFR/1.73 sq M.predicted among non-blacks MDRD (S/P/Bld) [Vol rate/Area] 98 mL/min/{1.73_m2} >60 [facility] Comment on above: mL/min/1.73m2 CKD-EP I Creatinine Equation (2020) Hematocrit Auto (Bld) [Volum e fraction]Ordered By: Donovan Pierson on 10-21-2024 Hematocrit (Bld) [Volume fraction] 44.8 % 37-47 [facility] Hemoglobin measurementOrdere d By: Donovan Pierson on 10-21-2024 Hemoglobin (Bld) [Mass/Vol] 14.6 g/dL 12.0-15.0 [facility] Immature granulocytes/100 WB C Auto (Bld)Ordered By: Donovan Pierson on 10-21-2024 Immature granulocytes/100 WBC (Bld) 0.300 % 0.0-0.9 [facility] Comment on above: IG% - Immature Granu locytes (promyelocytes, myelocytes and metamyelocytes) > 1% indicates that a LEFT SHIFT is Present. L501.4021on 10-21-2024 Trop T High Sen 20 ng/L High <=14 [facility] Comment on above: Performed By: #### L 501.4021, L100.0100, L500.2500 ####[facility] [address] [place], [address] MCV (mean corpuscular volume ) determinationOrdered By: Donovan Pierson on 10-21-2024 MCV (RBC) [Entitic vol] 90.9 fL 81-99 [facility] Mean corpuscular hemoglobin (MCH) determinationOrdered By: Donovan Pierson on 10-21-2024 MCH (RBC) [Entitic mass] 29.6 pg 27.0-32.0 [facility] Mean corpuscular hemoglobin concentration (MCHC) determinationOrdered By: Donovan Pierson on 10-21-2024 MCHC (RBC) [Mass/Vol] 32.6 g/dL 32-36 [facility] Mean platelet volume determi nationOrdered By: Donovan Pierson on 10-21-2024 Platelet mean volume (Bld) [Entitic vol] 9.6 fL 6.2-12.0 [facility] Monocyte percentageOrdered B y: Donovan Pierson on 10-21-2024 Monocytes/100 WBC (Bld) 9.1 % 0-10 [facility] Neutrophil percentageOrdered By: Donovan Pierson on 10-21-2024 Neutrophils/100 WBC (Bld) 75.0 % High 47-70 [facility] Nucleated red blood cell per centageOrdered By: Donovan Pierson on 10-21-2024 Nucleated RBC/100 WBC (Bld) [Ratio] 0 % 0-5 [facility] Platelet countOrdered By: Joe Pierson on 10-21-2024 Platelets (Bld) [#/Vol] 208 10*3/uL 150-450 [facility] Potassium measurement (mass/ volume)Ordered By: Donovan Pierson on 10-21-2024 Potassium (Unsp spec) [Mass/Vol] 4.2 mmol/L 3.3-5.1 [facility] RBC Auto (Bld) [#/Vol]Ordere d By: Donovan Pierson on 10-21-2024 RBC (Bld) [#/Vol] 4.93 10*6/uL 4.2-5.4 [facility] Serum creatinine measurement (mass/volume)Ordered By: Donovan Pierson on 10-21-2024 Creatinine [Mass/Vol] 0.44 mg/dL Low 0.70-1.20 [facility] Serum glucose measurement (m ass/volume)Ordered By: Donovan Pierson on 10-21-2024 Glucose [Mass/Vol] 114 mg/dL High 70-99 [facility] Serum or plasma calcium aaron urement (mass/volume)Ordered By: Donovan Pierson on 10-21-2024 Calcium [Mass/Vol] 10.1 mg/dL 7.6-11.0 [facility] Serum or plasma urea nitroge n measurement (mass/volume)Ordered By: Donovan Pierson on 10-21-2024 Urea nitrogen [Mass/Vol] 15 mg/dL 4-19 [facility] Sodium levelOrdered By: Donovan Pierson on 10-21-2024 Sodium [Moles/Vol] 139 mmol/L 133-145 [facility] Troponin T HS 2 HRon 025 Trop T High Sen 19 ng/L High <=14 [facility] Comment on above: Performed By: #### L 499.0042 ####[facility] [address] [place], [place], [id number] Troponin T HS 4 HRon 025 Trop T High Sen Normal <=14 [facility] Comment on above: Result Comment: JORGE ENT DISCHARGED Performed By: #### L 499.0043 ####[facility] [address] [place], [place], [phone](081) Troponin T.cardiac [Mass/vol ume] in Serum or Plasma by High sensitivity methodOrdered By: Donovan Pierson on 10-21-2024 Troponin T.cardiac High sensitivity method [Mass/Vol] 19 ng/L High <14 [facility] Troponin T.cardiac High sensitivity method [Mass/Vol] 20 ng/L High <14 [facility] Comment on above: Delta: 14 on White blood cell (WBC) count Ordered By: Donovan Pierson on 10-21-2024 WBC (Bld) [#/Vol] 6.7 10*3/uL 4.4-11.0 [facility] Bilirubin directOrdered By: Ginger Grace on 10-01-2024 Bilirubin.direct [Mass/Vol] 0.31 mg/dL High 0.00-0.30 [facility] Comment on above: Hemolysis present, R esults could be affected. Bilirubin, totalOrdered By: Ginger Grace on 10-01-2024 Bilirubin [Mass/Vol] 0.76 mg/dL 0.00-1.30 [facility] Calculated very low density lipoprotein (VLDL) cholesterol measurementOrdered By: Ginger Grace on 10-01-2024 Calculated very low density lipoprotein (VLDL) cholesterol measurement 22 mg/dL 5-40 [facility] LDL calc ser/plasOrdered By: Ginger Grace on 10-01-2024 Cholesterol in LDL [Mass/Vol] 41 mg/dL [facility] Comment on above: Skufxwisrc=475-803 m g/dL & Higher Mgei=761 mg/dL or greaterFriedwald Equation for LDL-C Laboratory - Chemistry and C hemistry - challengeOrdered By: Ginger Grace on 10-01-2024 AST [Catalytic activity/Vol] 21 U/L <32 [facility] Comment on above: Hemolysis present, R esults could be affected. Lipid Profileon 10-01-2024 CHOL:HDL 2.46 Normal [facility] Comment on above: Performed By: #### L 500.4100, L500.3400 ####[facility] [address] [place], [place], [id number] Cholesterol [Mass/Vol] 106 mg/dL Normal <=200 [facility] Comment on above: Result Comment: Chol esterol level, Desirable <200 mg/dLBorderline high cholesterol 200-239 mg/dLHigh cholesterol >=240 mg/dLRecommendations of the NCEP Adult Treatment Panel for thefollowing risk-cutoff thresholds for the [place] Americanpulation. Performed By: #### L 500.4100, L500.3400 ####[facility] [address] [facility] [address] [place], [place], [id number] Cholesterol in HDL [Mass/Vol] 43 mg/dL Normal [facility] Comment on above: Result Comment: Taty onal Cholesterol Education Program (NCEP) guidelines:<40 mg/dL: Low HDL-cholesterol (major risk factor for CHD)>= 60 mg/dL: High HDL-cholesterol (negative risk factor forCHD)HDL-cholesterol is affected by a number of factors, e.g.smoking, exercise, hormones, sex and age. Performed By: #### L 500.4100, L500.3400 ####[facility] [address] [place], [address] Cholesterol in LDL [Mass/Vol] 41 mg/dL Normal [facility] Comment on above: Result Comment: Bord rconsa=882-510 mg/dL Higher Nram=471 mg/dL or greaterFriedwald Equation for LDL-C Performed By: #### L 500.4100, L500.3400 ####[facility] [address] [place], [address] Cholesterol in VLDL [Mass/Vol] 22 mg/dL Normal 5-40 [facility] Comment on above: Performed By: #### L 500.4100, L500.3400 ####[facility] [address] [place], [address] Triglyceride [Mass/Vol] 108 mg/dL Normal [facility] Comment on above: Result Comment: The drugs N-Acetylcysteine and Metamizole may falselydepress this assay.Normal range: <150 mg/dLBorderline High: 150-199 mg/dLHigh: 200-499 mg/dLVery High: >500 mg/dL Performed By: #### L 500.4100, L500.3400 ####[facility] [address] [place], [address] Liver Profileon 10-01-2024 Albumin [Mass/Vol] 3.4 g/dL Normal 3.4-4.8 [facility] Comment on above: Performed By: #### L 500.4100, L500.3400 ####[facility] [address] [place], [address] ALK PHOS 101 U/L Normal 35-104 [facility] Comment on above: Performed By: #### L 500.4100, L500.3400 ####[facility] [address] [place], [address] ALT [Catalytic activity/Vol] 18 U/L Normal <=34 [facility] Comment on above: Performed By: #### L 500.4100, L500.3400 ####[facility] [address] [place], [address] AST [Catalytic activity/Vol] 21 U/L Normal <=31 [facility] Comment on above: Result Comment: Hemo lysis present, Results??could be affected.?? Performed By: #### L 500.4100, L500.3400 ####[facility] [address] [place], [address] Bilirubin [Mass/Vol] 0.76 mg/dL Normal 0.00-1.30 [facility] Comment on above: Performed By: #### L 500.4100, L500.3400 ####[facility] [address] [place], [address] Bilirubin.direct [Mass/Vol] 0.31 mg/dL High 0.00-0.30 [facility] Comment on above: Result Comment: Hemo lysis present, Results??could be affected.?? Performed By: #### L 500.4100, L500.3400 ####[facility] [address] [place], [address] Globulin (S) [Mass/Vol] 2.8 g/dL Normal 2.2-4.2 [facility] Comment on above: Performed By: #### L 500.4100, L500.3400 ####[facility] [address] [place], [address] T PROT 6.2 g/dL Normal 5.9-8.4 [facility] Comment on above: Performed By: #### L 500.4100, L500.3400 ####[facility] [address] [place], [address] No Panel InformationOrdered By: Ginger Grace on 10-01-2024 21 U/L <32 [facility] Screening total cholesterol/ high density lipoprotein (HDL) cholesterol ratioOrdered By: Ginger Grace on 10-01-2024 Cholesterol.total/[place] sterol in HDL [Mass ratio] 2.46 {ratio} [facility] Serum globulin measurementOr dered By: Ginger Grace on 10-01-2024 Globulin (S) [Mass/Vol] 2.8 g/dL 2.2-4.2 [facility] Serum or plasma alanine rajput otransferase (ALT) measurementOrdered By: Ginger Grace on 10-01-2024 ALT [Catalytic activity/Vol] 18 U/L <35 [facility] Serum or plasma albumin aaron urement (mass/volume)Ordered By: Ginger Grace on 10-01-2024 Albumin [Mass/Vol] 3.4 g/dL 3.4-4.8 [facility] Serum or plasma alkaline bernardo sphatase measurementOrdered By: Ginger Grace on 10-01-2024 ALP [Catalytic activity/Vol] 101 U/L 35-104 [facility] Serum or plasma cholesterol in HDL measurement (mass/volume)Ordered By: Ginger Grace on 10-01-2024 Cholesterol in HDL [Mass/Vol] 43 mg/dL >40 [facility] Comment on above: National Cholesterol Education Program (NCEP) guidelines:<40 mg/dL: Low HDL-cholesterol (major risk factor for CHD)>= 60 mg/dL: High HDL-cholesterol (negative risk factor for CHD)HDL-cholesterol is affected by a number of factors, e.g. smoking, exercise, hormones, sex and age. Serum or plasma cholesterol measurement (mass/volume)Ordered By: Ginger Grace on 10-01-2024 Cholesterol [Mass/Vol] 106 mg/dL <201 [facility] Comment on above: Cholesterol level, D esirable <200 mg/dLBorderline high cholesterol 200-239 mg/dLHigh cholesterol >=240 mg/dLRecommendations of the NCEP Adult Treatment Panel for the following risk-cutoff thresholds for the [place] population. TSH DL <= 0.005 mIU/L QnOrde red By: Kale Coty on 10-01-2024 TSH Qn 0.011 uIU/mL Low 0.300-4.200 [facility] Thyroid Stim Hormone (TSH)on 10-01-2024 TSH 0.011 uIU/mL Low 0.300-4.200 [facility] Comment on above: Performed By: #### L 501.9520 ####[facility] [address] [place], [place], [address] Total proteinOrdered By: Laron Grace on 10-01-2024 Protein [Mass/Vol] 6.2 g/dL 5.9-8.4 [facility] Triglycerides measurementOrd ered By: Ginger Grace on 10-01-2024 Triglyceride [Mass/Vol] 108 mg/dL <199 [facility] Comment on above: The drugs N-Acetylcy steine and Metamizole may falsely depress this assay. Normal range: <150 mg/dLBorderline High: 150-199 mg/dLHigh: 200-499 mg/dLVery High: >500 mg/dL L499.0043on 09-10-2024 Trop T High Sen Normal <=14 [facility] Comment on above: Result Comment: Canmaksim elled via OM: Order cancelled - Patient discharged Performed By: #### L 499.0043 ####[facility] [address] [place], [address] Absolute lymphocyte countOrd ered By: Donovan Pierson on 09-09-2024 Lymphocytes Auto (Unsp spec) [#/Vol] 1.11 10*3/uL 0.83-4.51 [facility] Absolute neutrophil countOrd ered By: Donovan Pierson on 09-09-2024 Neutrophils (Bld) [#/Vol] 4.6 10*3/uL 2.0-7.7 [facility] Anion gap in Serum or Plasma Ordered By: Donovan Pierson on 09-09-2024 Anion gap [Moles/Vol] 8 mmol/L 5-15 [facility] Automated lymphocyte count a s percentage of total leukocytesOrdered By: Donovan Pierson on 09-09-2024 Lymphocytes/100 WBC Auto (Unsp spec) 17.2 % Low 19-41 [facility] BUN/creatinine ratioOrdered By: Donovan Pierson on 09-09-2024 Urea nitrogen/Creatinine [Mass ratio] 34.2 mg/mg High 10-20 [facility] Basic Metabolic Profile (BMP )on 09-09-2024 BUN/CRE 34.2 RATIO High - [facility] Comment on above: Performed By: #### L 503.7505, L500.2500 ####[facility] [address] [place], [address] Calcium [Mass/Vol] 10.4 mg/dL Normal 7.6-11.0 [facility] Comment on above: Performed By: #### L 503.7505, L500.2500 ####[facility] [address] [place], [address] Chloride [Moles/Vol] 103 mmol/L Normal 98-108 [facility] Comment on above: Performed By: #### L 503.7505, L500.2500 ####[facility] [address] [place], [address] CO2 [Moles/Vol] 27.5 mmol/L Normal 21.0-32.0 [facility] Comment on above: Performed By: #### L 503.7505, L500.2500 ####[facility] [address] [place], [address] Creatinine [Mass/Vol] 0.55 mg/dL Low 0.70-1.20 [facility] Comment on above: Performed By: #### L 503.7505, L500.2500 ####[facility] [address] [place], [address] ECRCL 58.92 ml/min Normal 50-250 [facility] Comment on above: Performed By: #### L 503.7505, L500.2500 ####[facility] [address] [place], [address] GAP 8 Normal 5-15 [facility] Comment on above: Performed By: #### L 503.7505, L500.2500 ####[facility] [address] [place], [address] GFR/1.73 sq M.predicted among non-blacks MDRD (S/P/Bld) [Vol rate/Area] 92 mL/min/{1.73_m2} Normal >60 [facility] Comment on above: Result Comment: mL/m in/1.73m2 CKD-EPI Creatinine Equation (2020) Performed By: #### L 503.7505, L500.2500 ####[facility] [address] [place], [address] Glucose [Mass/Vol] 120 mg/dL High 70-99 [facility] Comment on above: Performed By: #### L 503.7505, L500.2500 ####[facility] [address] [place], [address] Potassium [Moles/Vol] 4.6 mmol/L Normal 3.3-5.1 [facility] Comment on above: Performed By: #### L 503.7505, L500.2500 ####[facility] [address] [place], [address] Sodium [Moles/Vol] 139 mmol/L Normal 133-145 [facility] Comment on above: Performed By: #### L 503.7505, L500.2500 ####[facility] [address] [place], [address] Urea nitrogen [Mass/Vol] 19 mg/dL Normal 4-19 [facility] Comment on above: Performed By: #### L 503.7505, L500.2500 ####[facility] [address] [place], [address] Basophil percentageOrdered B y: Donovan Pierson on 09-09-2024 Basophils/100 WBC (Bld) 0.5 % 0-1 [facility] CBC W/Diff, Automatedon 08-30 Absolute Lymph 1.11 X10 3/uL Normal 0.83-4.51 [facility] Comment on above: Performed By: #### L 100.0100, L501.4021 ####[facility] [address] [place], [address] Absolute Neut 4.6 X10 3/uL Normal 2.0-7.7 [facility] Comment on above: Performed By: #### L 100.0100, L501.4021 ####[facility] [address] [place], [address] Basophils/100 WBC (Bld) 0.5 % Normal 0-1 [facility] Comment on above: Performed By: #### L 100.0100, L501.4021 ####[facility] [address] [place], [address] Eosinophils/100 WBC (Bld) 1.2 % Normal 0-5 [facility] Comment on above: Performed By: #### L 100.0100, L501.4021 ####[facility] [address] [place], [address] Erythrocyte distribution width (RBC) [Ratio] 12.5 % Normal 11.6-14.6 [facility] Comment on above: Performed By: #### L 100.0100, L501.4021 ####[facility] [address] [place], [address] Hematocrit (Bld) [Volume fraction] 41.4 % Normal 37-47 [facility] Comment on above: Performed By: #### L 100.0100, L501.4021 ####[facility] [address] [place], [address] Hemoglobin (Bld) [Mass/Vol] 13.7 g/dL Normal 12.0-15.0 [facility] Comment on above: Performed By: #### L 100.0100, L501.4021 ####[facility] [address] [place], [address] IG% 0.600 Normal 0.0-0.9 [facility] Comment on above: Result Comment: IG% - Immature Granulocytes (promyelocytes, myelocytes andmetamyelocytes) > 1% indicates that a LEFT SHIFT is Present. Performed By: #### L 100.0100, L501.4021 ####[facility] [address] [place], [address] Lymphocytes/100 WBC (Bld) 17.2 % Low 19-41 [facility] Comment on above: Performed By: #### L 100.0100, L501.4021 ####[facility] [address] [place], [address] MCH (RBC) [Entitic mass] 30.4 pg Normal 27.0-32.0 [facility] Comment on above: Performed By: #### L 100.0100, L501.4021 ####[facility] [address] [place], [address] MCHC (RBC) [Mass/Vol] 33.1 g/dL Normal 32-36 [facility] Comment on above: Performed By: #### L 100.0100, L501.4021 ####[facility] [address] [place], [address] MCV (RBC) [Entitic vol] 92.0 fL Normal 81-99 [facility] Comment on above: Performed By: #### L 100.0100, L501.4021 ####[facility] [address] [place], [address] Monocytes/100 WBC (Bld) 10.2 % High 0-10 [facility] Comment on above: Performed By: #### L 100.0100, L501.4021 ####[facility] [address] [place], [address] Neutrophils/100 WBC (Bld) 70.3 % High 47-70 [facility] Comment on above: Performed By: #### L 100.0100, L501.4021 ####[facility] [address] [place], [address] Nucleated RBC (Bld) [#/Vol] 0 10*3/uL Normal 0-5 [facility] Comment on above: Performed By: #### L 100.0100, L501.4021 ####[facility] [address] [place], [address] Platelet mean volume (Bld) [Entitic vol] 9.8 fL Normal 6.2-12.0 [facility] Comment on above: Performed By: #### L 100.0100, L501.4021 ####[facility] [address] [place], [address] Platelets (Bld) [#/Vol] 228 10*3/uL Normal 150-450 [facility] Comment on above: Performed By: #### L 100.0100, L501.4021 ####[facility] [address] [place], [address] RBC (Bld) [#/Vol] 4.50 10*6/uL Normal 4.2-5.4 [facility] Comment on above: Performed By: #### L 100.0100, L501.4021 ####[facility] [address] [place], [address] RDW SD 42.3 fl Normal 35.1-43.9 [facility] Comment on above: Performed By: #### L 100.0100, L501.4021 ####[facility] [address] [place], [place], [address] WBC (Bld) [#/Vol] 6.5 10*3/uL Normal 4.4-11.0 [facility] Comment on above: Performed By: #### L 100.0100, L501.4021 ####[facility] [address] [facility] [address] [place], [place], [id number] Carbon dioxide, total [Moles /volume] in Central venous bloodOrdered By: Donovan Pierson on 09-09-2024 CO2 [Moles/Vol] 27.5 mmol/L 21.0-32.0 [facility] Chest 1 View (Portable)on Chest 1 View (Portable) Normal [facility] Chloride assayOrdered By: Joe Pierson on 09-09-2024 Chloride [Moles/Vol] 103 mmol/L 98-108 [facility] Emergency Department Summary on 09-09-2024 Emergency Department Summary Normal [facility] Eosinophil percentageOrdered By: Donovan Pierson on 09-09-2024 Eosinophils/100 WBC (Bld) 1.2 % 0-5 [facility] Erythrocyte distribution wid th ratioOrdered By: Donovan Pierson on 09-09-2024 Erythrocyte distribution width (RBC) [Ratio] 12.5 % 11.6-14.6 [facility] Erythrocyte distribution wid th standard deviationOrdered By: Donovan Pierson on 09-09-2024 Erythrocyte distribution width (RBC) [Ratio] 42.3 fl 35.1-43.9 [facility] Glomerular filtration rate ( GFR) estimation/1.73 sq m using serum, plasma, or whole bOrdered By: Donovan Pierson on 09-09-2024 GFR/1.73 sq M.predicted among non-blacks MDRD (S/P/Bld) [Vol rate/Area] 92 mL/min/{1.73_m2} >60 [facility] Comment on above: mL/min/1.73m2 CKD-EP I Creatinine Equation (2020) Hematocrit Auto (Bld) [Volum e fraction]Ordered By: Donovan Pierson on 09-09-2024 Hematocrit (Bld) [Volume fraction] 41.4 % 37-47 [facility] Hemoglobin measurementOrdere d By: Donovan Pierson on 09-09-2024 Hemoglobin (Bld) [Mass/Vol] 13.7 g/dL 12.0-15.0 [facility] Immature granulocytes/100 WB C Auto (Bld)Ordered By: Donovan Pierson on 09-09-2024 Immature granulocytes/100 WBC (Bld) 0.600 % 0.0-0.9 [facility] Comment on above: IG% - Immature Granu locytes (promyelocytes, myelocytes and metamyelocytes) > 1% indicates that a LEFT SHIFT is Present. L499.0042on 09-09-2024 Trop T High Sen 14 ng/L Normal <=14 [facility] Comment on above: Performed By: #### L 499.0042 ####[facility] [address] [place], [address] L501.4021on 09-09-2024 Trop T High Sen 14 ng/L Normal <=14 [facility] Comment on above: Performed By: #### L 100.0100, L501.4021 ####[facility] [address] [place], [place], [id number] L503.7505on 09-09-2024 Natriuretic peptide B (Bld) [Mass/Vol] 468 pg/mL Normal <=1800 [facility] Comment on above: Result Comment: Hear t Failure Unlikely: < 300 pg/mLHeart Failure Likely< 50 Years: > 450 pg/mL50-75 Years: > 900 pg/mL>75 Years: > 1800 pg/mL Performed By: #### L 503.7505, L500.2500 ####[facility] [address] [place], [place], [id number] MCV (mean corpuscular volume ) determinationOrdered By: Donovan Pierson on 09-09-2024 MCV (RBC) [Entitic vol] 92.0 fL 81-99 [facility] Mean corpuscular hemoglobin (MCH) determinationOrdered By: Donovan Pierson on 09-09-2024 MCH (RBC) [Entitic mass] 30.4 pg 27.0-32.0 [facility] Mean corpuscular hemoglobin concentration (MCHC) determinationOrdered By: Donovan Pierson on 09-09-2024 MCHC (RBC) [Mass/Vol] 33.1 g/dL 32-36 [facility] Mean platelet volume determi nationOrdered By: Donovan Pierson on 09-09-2024 Platelet mean volume (Bld) [Entitic vol] 9.8 fL 6.2-12.0 [facility] Monocyte percentageOrdered B y: Donovan Pierson on 09-09-2024 Monocytes/100 WBC (Bld) 10.2 % High 0-10 [facility] Natriuretic peptide.B prohor len N-Terminal [Mass/volume] in Serum or PlasmaOrdered By: Donovan Pierson on 09-09-2024 Natriuretic peptide.B prohormone N-Terminal [Mass/Vol] 468 pg/mL <1800 [facility] Comment on above: Heart Failure Unlike ly: < 300 pg/mLHeart Failure Likely< 50 Years: > 450 pg/mL50-75 Years: > 900 pg/mL>75 Years: > 1800 pg/mL Neutrophil percentageOrdered By: Donovan Pierson on 09-09-2024 Neutrophils/100 WBC (Bld) 70.3 % High 47-70 [facility] Nucleated red blood cell per centageOrdered By: Donovan Pierson on 09-09-2024 Nucleated RBC/100 WBC (Bld) [Ratio] 0 % 0-5 [facility] Platelet countOrdered By: Joe Pierson on 09-09-2024 Platelets (Bld) [#/Vol] 228 10*3/uL 150-450 [facility] Potassium measurement (mass/ volume)Ordered By: Donovan Pierson on 09-09-2024 Potassium (Unsp spec) [Mass/Vol] 4.6 mmol/L 3.3-5.1 [facility] RBC Auto (Bld) [#/Vol]Ordere d By: Donovan Pierson on 09-09-2024 RBC (Bld) [#/Vol] 4.50 10*6/uL 4.2-5.4 [facility] Serum creatinine measurement (mass/volume)Ordered By: Donovan Pierson on 09-09-2024 Creatinine [Mass/Vol] 0.55 mg/dL Low 0.70-1.20 [facility] Serum glucose measurement (m ass/volume)Ordered By: Donovan Pierson on 09-09-2024 Glucose [Mass/Vol] 120 mg/dL High 70-99 [facility] Serum or plasma calcium aaron urement (mass/volume)Ordered By: Donovan Pierson on 09-09-2024 Calcium [Mass/Vol] 10.4 mg/dL 7.6-11.0 [facility] Serum or plasma urea nitroge n measurement (mass/volume)Ordered By: Donovan Pierson on 09-09-2024 Urea nitrogen [Mass/Vol] 19 mg/dL 4-19 [facility] Sodium levelOrdered By: Donovan Pierson on 09-09-2024 Sodium [Moles/Vol] 139 mmol/L 133-145 [facility] Troponin T.cardiac [Mass/vol ume] in Serum or Plasma by High sensitivity methodOrdered By: Donovan Pierson on 09-09-2024 Troponin T.cardiac High sensitivity method [Mass/Vol] 14 ng/L <14 [facility] Troponin T.cardiac High sensitivity method [Mass/Vol] 14 ng/L Invalid Interpretation Code <14 [facility] Comment on above: Delta: 18 on 5-0350 White blood cell (WBC) count Ordered By: Donovan Pierson on 09-09-2024 WBC (Bld) [#/Vol] 6.5 10*3/uL 4.4-11.0 [facility] Cardiology Visit Reporton Cardiology Visit Report Normal [facility] Cardiology Visit Reporton Cardiology Visit Report Normal [facility] 12 Lead EKGon 08-02-2024 12 Lead EKG Normal [facility] Absolute lymphocyte countOrd ered By: Jaylen Jack on 08-02-2024 Lymphocytes Auto (Unsp spec) [#/Vol] 1.11 10*3/uL 0.83-4.51 [facility] Absolute neutrophil countOrd ered By: Jaylen Jack on 08-02-2024 Neutrophils (Bld) [#/Vol] 4.9 10*3/uL 2.0-7.7 [facility] Anion gap in Serum or Plasma Ordered By: Jaylen Jack on 08-02-2024 Anion gap [Moles/Vol] 10 mmol/L 5-15 [facility] Automated lymphocyte count a s percentage of total leukocytesOrdered By: Jaylen Jack on 08-02-2024 Lymphocytes/100 WBC Auto (Unsp spec) 16.3 % Low 19-41 [facility] BUN/creatinine ratioOrdered By: Jaylen Jack on 08-02-2024 Urea nitrogen/Creatinine [Mass ratio] 38.1 mg/mg High 10-20 [facility] Basophil percentageOrdered B y: Jaylen Jack on 08-02-2024 Basophils/100 WBC (Bld) 0.4 % 0-1 [facility] Bilirubin Test strip Ql (U)O rdered By: Jaylen Jack on 08-02-2024 Bilirubin Ql (U) Negative Negative [facility] Bilirubin, totalOrdered By: Jaylen Jack on 08-02-2024 Bilirubin [Mass/Vol] 0.61 mg/dL 0.00-1.30 [facility] Brain/Head without Contrasto n 08-02-2024 Brain/Head without Contrast Normal [facility] CBC W/Diff, Automatedon Absolute Lymph 1.11 X10 3/uL Normal 0.83-4.51 [facility] Comment on above: Performed By: #### L 100.0100, L503.6005, L501.4021, L500.4050 ####[facility] [address] [place], [address] Absolute Neut 4.9 X10 3/uL Normal 2.0-7.7 [facility] Comment on above: Performed By: #### L 100.0100, L503.6005, L501.4021, L500.4050 ####[facility] [address] [place], [address] Basophils/100 WBC (Bld) 0.4 % Normal 0-1 [facility] Comment on above: Performed By: #### L 100.0100, L503.6005, L501.4021, L500.4050 ####[facility] [address] [place], [address] Eosinophils/100 WBC (Bld) 1.5 % Normal 0-5 [facility] Comment on above: Performed By: #### L 100.0100, L503.6005, L501.4021, L500.4050 ####[facility] [address] [place], [address] Erythrocyte distribution width (RBC) [Ratio] 12.6 % Normal 11.6-14.6 [facility] Comment on above: Performed By: #### L 100.0100, L503.6005, L501.4021, L500.4050 ####[facility] [address] [place], [address] Hematocrit (Bld) [Volume fraction] 42.2 % Normal 37-47 [facility] Comment on above: Performed By: #### L 100.0100, L503.6005, L501.4021, L500.4050 ####[facility] [address] [place], [address] Hemoglobin (Bld) [Mass/Vol] 13.8 g/dL Normal 12.0-15.0 [facility] Comment on above: Performed By: #### L 100.0100, L503.6005, L501.4021, L500.4050 ####[facility] [address] [place], [address] IG% 0.600 Normal 0.0-0.9 [facility] Comment on above: Result Comment: IG% - Immature Granulocytes (promyelocytes, myelocytes andmetamyelocytes) > 1% indicates that a LEFT SHIFT is Present. Performed By: #### L 100.0100, L503.6005, L501.4021, L500.4050 ####[facility] [address] [place], [address] Lymphocytes/100 WBC (Bld) 16.3 % Low 19-41 [facility] Comment on above: Performed By: #### L 100.0100, L503.6005, L501.4021, L500.4050 ####[facility] [address] [place], [address] MCH (RBC) [Entitic mass] 30.7 pg Normal 27.0-32.0 [facility] Comment on above: Performed By: #### L 100.0100, L503.6005, L501.4021, L500.4050 ####[facility] [address] [place], [address] MCHC (RBC) [Mass/Vol] 32.7 g/dL Normal 32-36 [facility] Comment on above: Performed By: #### L 100.0100, L503.6005, L501.4021, L500.4050 ####[facility] [address] [place], [address] MCV (RBC) [Entitic vol] 93.8 fL Normal 81-99 [facility] Comment on above: Performed By: #### L 100.0100, L503.6005, L501.4021, L500.4050 ####[facility] [address] [place], [address] Monocytes/100 WBC (Bld) 9.1 % Normal 0-10 [facility] Comment on above: Performed By: #### L 100.0100, L503.6005, L501.4021, L500.4050 ####[facility] [address] [place], [address] Neutrophils/100 WBC (Bld) 72.1 % High 47-70 [facility] Comment on above: Performed By: #### L 100.0100, L503.6005, L501.4021, L500.4050 ####[facility] [address] [place], [address] Nucleated RBC (Bld) [#/Vol] 0 10*3/uL Normal 0-5 [facility] Comment on above: Performed By: #### L 100.0100, L503.6005, L501.4021, L500.4050 ####[facility] [address] [place], [address] Platelet mean volume (Bld) [Entitic vol] 10.0 fL Normal 6.2-12.0 [facility] Comment on above: Performed By: #### L 100.0100, L503.6005, L501.4021, L500.4050 ####[facility] [address] [place], [address] Platelets (Bld) [#/Vol] 201 10*3/uL Normal 150-450 [facility] Comment on above: Performed By: #### L 100.0100, L503.6005, L501.4021, L500.4050 ####[facility] [address] [place], [address] RBC (Bld) [#/Vol] 4.50 10*6/uL Normal 4.2-5.4 [facility] Comment on above: Performed By: #### L 100.0100, L503.6005, L501.4021, L500.4050 ####[facility] [address] [place], [address] RDW SD 43.5 fl Normal 35.1-43.9 [facility] Comment on above: Performed By: #### L 100.0100, L503.6005, L501.4021, L500.4050 ####[facility] [address] [place], [address] WBC (Bld) [#/Vol] 6.8 10*3/uL Normal 4.4-11.0 [facility] Comment on above: Performed By: #### L 100.0100, L503.6005, L501.4021, L500.4050 ####[facility] [address] [place], [address] Carbon dioxide, total [Moles /volume] in Central venous bloodOrdered By: Jaylen Jack on 08-02-2024 CO2 [Moles/Vol] 26.4 mmol/L 21.0-32.0 [facility] Chest 1 View (Portable)on Chest 1 View (Portable) Normal [facility] Chloride assayOrdered By: Lincoln Jack on 08-02-2024 Chloride [Moles/Vol] 105 mmol/L 98-108 [facility] Comprehensive Metabolic Prof ilon 08-02-2024 Albumin [Mass/Vol] 3.6 g/dL Normal 3.4-4.8 [facility] Comment on above: Performed By: #### L 100.0100, L503.6005, L501.4021, L500.4050 ####[facility] [address] [place], [address] Albumin/Globulin [Mass ratio] 1.2 {ratio} Normal 0.9-2.4 [facility] Comment on above: Performed By: #### L 100.0100, L503.6005, L501.4021, L500.4050 ####[facility] [address] [place], [address] ALK PHOS 107 U/L High 35-104 [facility] Comment on above: Performed By: #### L 100.0100, L503.6005, L501.4021, L500.4050 ####[facility] [address] [place], [address] ALT [Catalytic activity/Vol] 13 U/L Normal <=34 [facility] Comment on above: Performed By: #### L 100.0100, L503.6005, L501.4021, L500.4050 ####[facility] [address] [place], [address] AST [Catalytic activity/Vol] 17 U/L Normal <=31 [facility] Comment on above: Performed By: #### L 100.0100, L503.6005, L501.4021, L500.4050 ####[facility] [address] [place], [address] Bilirubin [Mass/Vol] 0.61 mg/dL Normal 0.00-1.30 [facility] Comment on above: Performed By: #### L 100.0100, L503.6005, L501.4021, L500.4050 ####[facility] [address] [place], [address] BUN/CRE 38.1 RATIO High 10-20 [facility] Comment on above: Performed By: #### L 100.0100, L503.6005, L501.4021, L500.4050 ####[facility] [address] [place], [address] Calcium [Mass/Vol] 10.5 mg/dL Normal 7.6-11.0 [facility] Comment on above: Performed By: #### L 100.0100, L503.6005, L501.4021, L500.4050 ####[facility] [address] [place], [address] Chloride [Moles/Vol] 105 mmol/L Normal 98-108 [facility] Comment on above: Performed By: #### L 100.0100, L503.6005, L501.4021, L500.4050 ####[facility] [address] [place], [address] CO2 [Moles/Vol] 26.4 mmol/L Normal 21.0-32.0 [facility] Comment on above: Performed By: #### L 100.0100, L503.6005, L501.4021, L500.4050 ####[facility] [address] [place], [address] Creatinine [Mass/Vol] 0.60 mg/dL Low 0.70-1.20 [facility] Comment on above: Performed By: #### L 100.0100, L503.6005, L501.4021, L500.4050 ####[facility] [address] [place], [address] ECRCL 58.03 ml/min Normal 50-250 [facility] Comment on above: Performed By: #### L 100.0100, L503.6005, L501.4021, L500.4050 ####[facility] [address] [place], [address] GAP 10 Normal 5-15 [facility] Comment on above: Performed By: #### L 100.0100, L503.6005, L501.4021, L500.4050 ####[facility] [address] [place], [address] GFR/1.73 sq M.predicted among non-blacks MDRD (S/P/Bld) [Vol rate/Area] 91 mL/min/{1.73_m2} Normal >60 [facility] Comment on above: Result Comment: mL/m in/1.73m2 CKD-EPI Creatinine Equation (2020) Performed By: #### L 100.0100, L503.6005, L501.4021, L500.4050 ####[facility] [address] [place], [address] Globulin (S) [Mass/Vol] 2.9 g/dL Normal 2.2-4.2 [facility] Comment on above: Performed By: #### L 100.0100, L503.6005, L501.4021, L500.4050 ####[facility] [address] [place], [address] Glucose [Mass/Vol] 117 mg/dL High 70-99 [facility] Comment on above: Performed By: #### L 100.0100, L503.6005, L501.4021, L500.4050 ####[facility] [address] [place], [address] Potassium [Moles/Vol] 3.8 mmol/L Normal 3.3-5.1 [facility] Comment on above: Performed By: #### L 100.0100, L503.6005, L501.4021, L500.4050 ####[facility] [address] [place], [address] Sodium [Moles/Vol] 142 mmol/L Normal 133-145 [facility] Comment on above: Performed By: #### L 100.0100, L503.6005, L501.4021, L500.4050 ####[facility] [address] [place], [address] T PROT 6.5 g/dL Normal 5.9-8.4 [facility] Comment on above: Performed By: #### L 100.0100, L503.6005, L501.4021, L500.4050 ####[facility] [address] [place], [address] Urea nitrogen [Mass/Vol] 23 mg/dL High 4-19 [facility] Comment on above: Performed By: #### L 100.0100, L503.6005, L501.4021, L500.4050 ####[facility] [address] [place], [address] Emergency Department Summary on 08-02-2024 Emergency Department Summary Normal [facility] Eosinophil percentageOrdered By: Jaylen Jack on 08-02-2024 Eosinophils/100 WBC (Bld) 1.5 % 0-5 [facility] Erythrocyte distribution wid th ratioOrdered By: Jaylen Jack on 08-02-2024 Erythrocyte distribution width (RBC) [Ratio] 12.6 % 11.6-14.6 [facility] Erythrocyte distribution wid th standard deviationOrdered By: Jaylen Jack on 08-02-2024 Erythrocyte distribution width (RBC) [Ratio] 43.5 fl 35.1-43.9 [facility] Glomerular filtration rate ( GFR) estimation/1.73 sq m using serum, plasma, or whole bOrdered By: Jaylen Jack on 08-02-2024 GFR/1.73 sq M.predicted among non-blacks MDRD (S/P/Bld) [Vol rate/Area] 91 mL/min/{1.73_m2} >60 [facility] Comment on above: mL/min/1.73m2 CKD-EP I Creatinine Equation (2020) Hematocrit Auto (Bld) [Volum e fraction]Ordered By: Jaylen Jack on 08-02-2024 Hematocrit (Bld) [Volume fraction] 42.2 % 37-47 [facility] Hemoglobin measurementOrdere d By: Jaylen Jack on 08-02-2024 Hemoglobin (Bld) [Mass/Vol] 13.8 g/dL 12.0-15.0 [facility] Immature granulocytes/100 WB C Auto (Bld)Ordered By: Jaylen Jack on 08-02-2024 Immature granulocytes/100 WBC (Bld) 0.600 % 0.0-0.9 [facility] Comment on above: IG% - Immature Granu locytes (promyelocytes, myelocytes and metamyelocytes) > 1% indicates that a LEFT SHIFT is Present. Ketones Test strip Ql (U)Ord ered By: Jaylen Jack on 08-02-2024 Ketones Ql (U) Negative Negative [facility] L501.4021on 08-02-2024 Trop T High Sen 18 ng/L High <=14 [facility] Comment on above: Performed By: #### L 100.0100, L503.6005, L501.4021, L500.4050 ####[facility] [address] [place], [address] Laboratory - Chemistry and C hemistry - challengeOrdered By: Jaylen Jack on 08-02-2024 AST [Catalytic activity/Vol] 17 U/L <32 [facility] Lactic acid measurementOrder ed By: Jaylen Jack on 08-02-2024 Lactate [Moles/Vol] 1.2 mmol/L Normal 0.0-2.0 [facility] Comment on above: Order Comment: Y Performed By: #### L 100.0100, L503.6005, L501.4021, L500.4050 ####[facility] [address] [place], [place], [id number] MCV (mean corpuscular volume ) determinationOrdered By: Jaylen Jack on 08-02-2024 MCV (RBC) [Entitic vol] 93.8 fL 81-99 [facility] Mean corpuscular hemoglobin (MCH) determinationOrdered By: Jaylen Jack on 08-02-2024 MCH (RBC) [Entitic mass] 30.7 pg 27.0-32.0 [facility] Mean corpuscular hemoglobin concentration (MCHC) determinationOrdered By: Jaylen Jack on 08-02-2024 MCHC (RBC) [Mass/Vol] 32.7 g/dL 32-36 [facility] Mean platelet volume determi nationOrdered By: Jaylen Jack on 08-02-2024 Platelet mean volume (Bld) [Entitic vol] 10.0 fL 6.2-12.0 [facility] Microscopic analysis of urin e for red blood cells (RBC)Ordered By: Jaylen Jack on 08-02-2024 Microscopic analysis of urine for red blood cells (RBC) 0 SEEN /hpf 0-5 [facility] Monocyte percentageOrdered B y: Jaylen Jack on 08-02-2024 Monocytes/100 WBC (Bld) 9.1 % 0-10 [facility] Mucus LM Ql (Urine sed)Order ed By: Jaylen Jack on 08-02-2024 Mucus Ql (Urine sed) 0 SEEN /hpf [facility] Neutrophil percentageOrdered By: Jaylen Jack on 08-02-2024 Neutrophils/100 WBC (Bld) 72.1 % High 47-70 [facility] Nitrite Test strip Ql (U)Ord ered By: Jaylen Jack on 08-02-2024 Nitrite Ql (U) Negative Negative [facility] No Panel InformationOrdered By: Jaylen Jack on 08-02-2024 17 U/L <32 [facility] Nucleated red blood cell per centageOrdered By: Jaylen Jack on 08-02-2024 Nucleated RBC/100 WBC (Bld) [Ratio] 0 % 0-5 [facility] Platelet countOrdered By: Lincoln Jack on 08-02-2024 Platelets (Bld) [#/Vol] 201 10*3/uL 150-450 [facility] Potassium measurement (mass/ volume)Ordered By: Jaylen Jack on 08-02-2024 Potassium (Unsp spec) [Mass/Vol] 3.8 mmol/L 3.3-5.1 [facility] Protein Test strip Ql (U)Ord ered By: Jaylen Jack on 08-02-2024 Protein Ql (U) 30 mg/dl High Negative [facility] RBC Auto (Bld) [#/Vol]Ordere d By: Jaylen Jack on 08-02-2024 RBC (Bld) [#/Vol] 4.50 10*6/uL 4.2-5.4 [facility] Serum creatinine measurement (mass/volume)Ordered By: Jaylen Jack on 08-02-2024 Creatinine [Mass/Vol] 0.60 mg/dL Low 0.70-1.20 [facility] Serum globulin measurementOr dered By: Jaylen Jack on 08-02-2024 Globulin (S) [Mass/Vol] 2.9 g/dL 2.2-4.2 [facility] Serum glucose measurement (m ass/volume)Ordered By: Jaylen Jack on 08-02-2024 Glucose [Mass/Vol] 117 mg/dL High 70-99 [facility] Serum or plasma alanine rajput otransferase (ALT) measurementOrdered By: Jaylen Jack on 08-02-2024 ALT [Catalytic activity/Vol] 13 U/L <35 [facility] Serum or plasma albumin aaron urement (mass/volume)Ordered By: Jaylen Jack on 08-02-2024 Albumin [Mass/Vol] 3.6 g/dL 3.4-4.8 [facility] Serum or plasma albumin/glob ulin mass ratioOrdered By: Jaylen Jack on 08-02-2024 Albumin/Globulin [Mass ratio] 1.2 {ratio} 0.9-2.4 [facility] Serum or plasma alkaline bernardo sphatase measurementOrdered By: Jaylen Jack on 08-02-2024 ALP [Catalytic activity/Vol] 107 U/L High 35-104 [facility] Serum or plasma calcium aaron urement (mass/volume)Ordered By: Jaylen Jack on 08-02-2024 Calcium [Mass/Vol] 10.5 mg/dL 7.6-11.0 [facility] Serum or plasma urea nitroge n measurement (mass/volume)Ordered By: Jaylen Jack on 08-02-2024 Urea nitrogen [Mass/Vol] 23 mg/dL High 4-19 [facility] Sodium levelOrdered By: Ramos Jack on 08-02-2024 Sodium [Moles/Vol] 142 mmol/L 133-145 [facility] Squamous epithelial cells de tection in urine sediment by light microscopyOrdered By: Jaylen Jack on 08-02-2024 Epithelial cells.squamous LM Ql (Urine sed) 0-5 SEEN /hpf 5-10 [facility] Total proteinOrdered By: Olesya Jack on 08-02-2024 Protein [Mass/Vol] 6.5 g/dL 5.9-8.4 [facility] Troponin T.cardiac [Mass/vol ume] in Serum or Plasma by High sensitivity methodOrdered By: Jaylen Jack on 08-02-2024 Troponin T.cardiac High sensitivity method [Mass/Vol] 18 ng/L High <14 [facility] Urinalysis, Completeon 08-02 BACTERIA RARE Normal None Seen [facility] Comment on above: Order Comment: MAYA CTOR TO SPECIFY Performed By: #### L 400.0001 ####[facility] [address] [place], [address] EPI,SQUAMOUS 0-5 SEEN Normal 5-10 [facility] Comment on above: Order Comment: MAYA CTOR TO SPECIFY Performed By: #### L 400.0001 ####[facility] [address] [place], [address] WBC 0-5 SEEN Normal 0-5 [facility] Comment on above: Order Comment: MAYA CTOR TO SPECIFY Performed By: #### L 400.0001 ####[facility] [address] [place], [address] Mucus Ql (Urine sed) 0 SEEN Normal [facility] Comment on above: Order Comment: MAYA CTOR TO SPECIFY Performed By: #### L 400.0001 ####[facility] [address] [place], [address] RBC 0 SEEN Normal 0-5 [facility] Comment on above: Order Comment: MAYA CTOR TO SPECIFY Performed By: #### L 400.0001 ####[facility] [address] [place], [address] Urine clarityOrdered By: Olesya Jack on 08-02-2024 Clarity (U) Sl. Cloudy Clear [facility] Urine color determinationOrd ered By: Jaylen Jack on 08-02-2024 Color (U) Yellow Yellow [facility] Urine glucose detectionOrder ed By: Jaylen Jack on 08-02-2024 Glucose Ql (U) Normal mg/dl Normal [facility] Urine leukocyte esterase det ection by dipstickOrdered By: Jaylen Jack on 08-02-2024 Leukocyte esterase Test strip Ql (U) Negative Negative [facility] Urine pHOrdered By: Jaylen carroll on 08-02-2024 pH (U) 6.0 [pH] 5.0 - 8.0 [facility] Urine sediment bacteria coun t by microscopy (number/high power field)Ordered By: Jaylen Jack on 08-02-2024 Bacteria LM.HPF (Urine sed) [#/Area] RARE /hpf None Seen [facility] Urine specific gravity measu rementOrdered By: Jaylen Jack on 08-02-2024 Specific gravity (U) [Rel density] 1.020 1.002-1.030 [facility] Urine urobilinogen measureme ntOrdered By: Jaylen Jack on 08-02-2024 Urobilinogen Ql (U) Normal mg/dl Normal [facility] White blood cell (WBC) count Ordered By: Jaylen Jack on 08-02-2024 WBC (Bld) [#/Vol] 6.8 10*3/uL 4.4-11.0 [facility] White blood cell countOrdere d By: Jaylen Jack on 08-02-2024 White blood cell count 0-5 SEEN /hpf 0-5 [facility] Absolute lymphocyte countOrd ered By: Jennifer Meléndez on 06-18-2024 Lymphocytes Auto (Unsp spec) [#/Vol] 1.33 10*3/uL 0.83-4.51 [facility] Absolute neutrophil countOrd ered By: Jennifer Meléndez on 06-18-2024 Neutrophils (Bld) [#/Vol] 5.2 10*3/uL 2.0-7.7 [facility] Anion gap in Serum or Plasma Ordered By: Jeninfer Meléndez on 06-18-2024 Anion gap [Moles/Vol] 9 mmol/L 5-15 [facility] Automated lymphocyte count a s percentage of total leukocytesOrdered By: Jennifer Meléndez on 06-18-2024 Lymphocytes/100 WBC Auto (Unsp spec) 18.1 % Low 19- [facility] BUN/creatinine ratioOrdered By: Jennifer Meléndez on 06-18-2024 Urea nitrogen/Creatinine [Mass ratio] 38.3 mg/mg High 10-20 [facility] Basic Metabolic Profile (BMP )on 06-18-2024 BUN/CRE 38.3 RATIO High - [facility] Comment on above: Performed By: #### L 100.0100, L500.2500 ####[facility] [address] [place], [address] Calcium [Mass/Vol] 10.4 mg/dL Normal 7.6-11.0 [facility] Comment on above: Performed By: #### L 100.0100, L500.2500 ####[facility] [address] [place], [address] Chloride [Moles/Vol] 102 mmol/L Normal 98-108 [facility] Comment on above: Performed By: #### L 100.0100, L500.2500 ####[facility] [address] [place], [address] CO2 [Moles/Vol] 27.6 mmol/L Normal 21.0-32.0 [facility] Comment on above: Performed By: #### L 100.0100, L500.2500 ####[facility] [address] [place], [address] Creatinine [Mass/Vol] 0.70 mg/dL Normal 0.70-1.20 [facility] Comment on above: Performed By: #### L 100.0100, L500.2500 ####[facility] [address] [place], [address] ECRCL 59.54 ml/min Normal 50-250 [facility] Comment on above: Performed By: #### L 100.0100, L500.2500 ####[facility] [address] [place], [address] GAP 9 Normal 5-15 [facility] Comment on above: Performed By: #### L 100.0100, L500.2500 ####[facility] [address] [place], [address] GFR/1.73 sq M.predicted among non-blacks MDRD (S/P/Bld) [Vol rate/Area] 88 mL/min/{1.73_m2} Normal >60 [facility] Comment on above: Result Comment: mL/m in/1.73m2 CKD-EPI Creatinine Equation (2020) Performed By: #### L 100.0100, L500.2500 ####[facility] [address] [place], [address] Glucose [Mass/Vol] 114 mg/dL High 70-99 [facility] Comment on above: Performed By: #### L 100.0100, L500.2500 ####[facility] [address] [place], [address] Potassium [Moles/Vol] 4.5 mmol/L Normal 3.3-5.1 [facility] Comment on above: Performed By: #### L 100.0100, L500.2500 ####[facility] [address] [place], [address] Sodium [Moles/Vol] 139 mmol/L Normal 133-145 [facility] Comment on above: Performed By: #### L 100.0100, L500.2500 ####[facility] [address] [place], [address] Urea nitrogen [Mass/Vol] 27 mg/dL High -19 [facility] Comment on above: Performed By: #### L 100.0100, L500.2500 ####[facility] [address] [place], [address] Basophil percentageOrdered B y: Jennifer Meléndez on 06-18-2024 Basophils/100 WBC (Bld) 0.3 % 0-1 [facility] CBC W/Diff, Automatedon 05-31 Absolute Lymph 1.33 X10 3/uL Normal 0.83-4.51 [facility] Comment on above: Performed By: #### L 100.0100, L500.2500 ####[facility] [address] [place], [address] Absolute Neut 5.2 X10 3/uL Normal 2.0-7.7 [facility] Comment on above: Performed By: #### L 100.0100, L500.2500 ####[facility] [address] [place], [address] Basophils/100 WBC (Bld) 0.3 % Normal 0-1 [facility] Comment on above: Performed By: #### L 100.0100, L500.2500 ####[facility] [address] [place], [address] Eosinophils/100 WBC (Bld) 1.0 % Normal 0-5 [facility] Comment on above: Performed By: #### L 100.0100, L500.2500 ####[facility] [address] [place], [address] Erythrocyte distribution width (RBC) [Ratio] 12.6 % Normal 11.6-14.6 [facility] Comment on above: Performed By: #### L 100.0100, L500.2500 ####[facility] [address] [place], [address] Hematocrit (Bld) [Volume fraction] 42.3 % Normal 37-47 [facility] Comment on above: Performed By: #### L 100.0100, L500.2500 ####[facility] [address] [place], [address] Hemoglobin (Bld) [Mass/Vol] 14.1 g/dL Normal 12.0-15.0 [facility] Comment on above: Performed By: #### L 100.0100, L500.2500 ####[facility] [address] [place], [address] IG% 0.400 Normal 0.0-0.9 [facility] Comment on above: Result Comment: IG% - Immature Granulocytes (promyelocytes, myelocytes andmetamyelocytes) > 1% indicates that a LEFT SHIFT is Present. Performed By: #### L 100.0100, L500.2500 ####[facility] [address] [place], [address] Lymphocytes/100 WBC (Bld) 18.1 % Low 19-41 [facility] Comment on above: Performed By: #### L 100.0100, L500.2500 ####[facility] [address] [place], [address] MCH (RBC) [Entitic mass] 30.4 pg Normal 27.0-32.0 [facility] Comment on above: Performed By: #### L 100.0100, L500.2500 ####[facility] [address] [place], [address] MCHC (RBC) [Mass/Vol] 33.3 g/dL Normal 32-36 [facility] Comment on above: Performed By: #### L 100.0100, L500.2500 ####[facility] [address] [place], [address] MCV (RBC) [Entitic vol] 91.2 fL Normal 81-99 [facility] Comment on above: Performed By: #### L 100.0100, L500.2500 ####[facility] [address] [place], [address] Monocytes/100 WBC (Bld) 9.1 % Normal 0-10 [facility] Comment on above: Performed By: #### L 100.0100, L500.2500 ####[facility] [address] [place], [address] Neutrophils/100 WBC (Bld) 71.1 % High 47-70 [facility] Comment on above: Performed By: #### L 100.0100, L500.2500 ####[facility] [address] [place], [address] Nucleated RBC (Bld) [#/Vol] 0 10*3/uL Normal 0-5 [facility] Comment on above: Performed By: #### L 100.0100, L500.2500 ####[facility] [address] [place], [address] Platelet mean volume (Bld) [Entitic vol] 9.3 fL Normal 6.2-12.0 [facility] Comment on above: Performed By: #### L 100.0100, L500.2500 ####[facility] [address] [place], [address] Platelets (Bld) [#/Vol] 222 10*3/uL Normal 150-450 [facility] Comment on above: Performed By: #### L 100.0100, L500.2500 ####[facility] [address] [place], [address] RBC (Bld) [#/Vol] 4.64 10*6/uL Normal 4.2-5.4 [facility] Comment on above: Performed By: #### L 100.0100, L500.2500 ####[facility] [address] [place], [address] RDW SD 41.5 fl Normal 35.1-43.9 [facility] Comment on above: Performed By: #### L 100.0100, L500.2500 ####[facility] [address] [place], [address] WBC (Bld) [#/Vol] 7.3 10*3/uL Normal 4.4-11.0 [facility] Comment on above: Performed By: #### L 100.0100, L500.2500 ####[facility] [address] [place], [address] Carbon dioxide, total [Moles /volume] in Central venous bloodOrdered By: Jennifer Meléndez on 06-18-2024 CO2 [Moles/Vol] 27.6 mmol/L 21.0-32.0 [facility] Chloride assayOrdered By: Myriam Meléndez on 06-18-2024 Chloride [Moles/Vol] 102 mmol/L 98-108 [facility] Emergency Department Summary on 06-18-2024 Emergency Department Summary Normal [facility] Eosinophil percentageOrdered By: Jennifer Meléndez on 06-18-2024 Eosinophils/100 WBC (Bld) 1.0 % 0-5 [facility] Erythrocyte distribution wid th (RBC) [Ratio]Ordered By: Jennifer Meléndez on 06-18-2024 Erythrocyte distribution width (RBC) [Entitic vol] 41.5 fL 35.1-43.9 [facility] Erythrocyte distribution wid th ratioOrdered By: Jennifer Meléndez on 06-18-2024 Erythrocyte distribution width (RBC) [Ratio] 12.6 % 11.6-14.6 [facility] Erythrocyte distribution wid th standard deviationOrdered By: Jennifer Meléndez on 06-18-2024 Erythrocyte distribution width (RBC) [Ratio] 41.5 fl 35.1-43.9 [facility] Estimation of creatinine renea aranceOrdered By: Jennifer Meléndez on 06-18-2024 Estimated Creatinine Clearance Calc 59.54 ml/min 50-250 [facility] GFR/1.73 sq M.predicted bronson g non-blacks MDRD (S/P/Bld) [Vol rate/Area]Ordered By: Jennifer Meléndez on 06-18-2024 Estimated GFR (MDRD) Non-Af Amer 88 >60 [facility] Comment on above: mL/min/1.73m2 CKD-EP I Creatinine Equation (2020) Glomerular filtration rate ( GFR) estimation/1.73 sq m using serum, plasma, or whole bOrdered By: Jennifer Meléndez on 06-18-2024 GFR/1.73 sq M.predicted among non-blacks MDRD (S/P/Bld) [Vol rate/Area] 88 mL/min/{1.73_m2} >60 [facility] Comment on above: mL/min/1.73m2 CKD-EP I Creatinine Equation (2020) Hematocrit Auto (Bld) [Volum e fraction]Ordered By: Jennifer Meléndez on 06-18-2024 Hematocrit (Bld) [Volume fraction] 42.3 % 37-47 [facility] Hemoglobin measurementOrdere d By: Jennifer Meléndez on 06-18-2024 Hemoglobin (Bld) [Mass/Vol] 14.1 g/dL 12.0-15.0 [facility] Immature granulocytes/100 WB C Auto (Bld)Ordered By: Jennifer Meléndez on 06-18-2024 Immature granulocytes/100 WBC (Bld) 0.400 % 0.0-0.9 [facility] Comment on above: IG% - Immature Granu locytes (promyelocytes, myelocytes and metamyelocytes) > 1% indicates that a LEFT SHIFT is Present. Lymphocytes Auto (Unsp spec) [#/Vol]Ordered By: Jennifer Meléndez on 06-18-2024 Lymphocytes (Bld) [#/Vol] 1.33 10*3/uL 0.83-4.51 [facility] Lymphocytes/100 WBC Auto (Un sp spec)Ordered By: Jennifer Meléndez on 06-18-2024 Lymphocytes/100 WBC (Bld) 18.1 % Low 19-41 [facility] MCV (mean corpuscular volume ) determinationOrdered By: Jennifer Meléndez on 06-18-2024 MCV (RBC) [Entitic vol] 91.2 fL 81-99 [facility] Mean corpuscular hemoglobin (MCH) determinationOrdered By: Jennifer Meléndez on 06-18-2024 MCH (RBC) [Entitic mass] 30.4 pg 27.0-32.0 [facility] Mean corpuscular hemoglobin concentration (MCHC) determinationOrdered By: Jennifer Meléndez on 06-18-2024 MCHC (RBC) [Mass/Vol] 33.3 g/dL 32-36 [facility] Mean platelet volume determi nationOrdered By: Jennifer Meléndez on 06-18-2024 Platelet mean volume (Bld) [Entitic vol] 9.3 fL 6.2-12.0 [facility] Monocyte percentageOrdered B y: Jennifer Meléndez on 06-18-2024 Monocytes/100 WBC (Bld) 9.1 % 0-10 [facility] Neutrophil percentageOrdered By: Jennifer Meléndez on 06-18-2024 Neutrophils/100 WBC (Bld) 71.1 % High 47-70 [facility] Nucleated red blood cell per centageOrdered By: Jennifer Meléndez on 06-18-2024 Nucleated RBC/100 WBC (Bld) [Ratio] 0 % 0-5 [facility] Platelet countOrdered By: Myriam Meléndez on 06-18-2024 Platelets (Bld) [#/Vol] 222 10*3/uL 150-450 [facility] Potassium (Unsp spec) [Mass/ Vol]Ordered By: Jennifer Meléndez on 06-18-2024 Potassium [Moles/Vol] 4.5 mmol/L 3.3-5.1 [facility] Potassium measurement (mass/ volume)Ordered By: Jennifer Meléndez on 06-18-2024 Potassium (Unsp spec) [Mass/Vol] 4.5 mmol/L 3.3-5.1 [facility] RBC Auto (Bld) [#/Vol]Ordere d By: Jennifer Meléndez on 06-18-2024 RBC (Bld) [#/Vol] 4.64 10*6/uL 4.2-5.4 [facility] Serum creatinine measurement (mass/volume)Ordered By: Jennifer Meléndez on 06-18-2024 Creatinine [Mass/Vol] 0.70 mg/dL 0.70-1.20 [facility] Serum glucose measurement (m ass/volume)Ordered By: Jennifer Meléndez on 06-18-2024 Glucose [Mass/Vol] 114 mg/dL High 70-99 [facility] Serum or plasma calcium aaron urement (mass/volume)Ordered By: Jennifer Meléndez on 06-18-2024 Calcium [Mass/Vol] 10.4 mg/dL 7.6-11.0 [facility] Serum or plasma urea nitroge n measurement (mass/volume)Ordered By: Jennifer Meléndez on 06-18-2024 Urea nitrogen [Mass/Vol] 27 mg/dL High 4-19 [facility] Sodium levelOrdered By: Jennfier Meléndez on 06-18-2024 Sodium [Moles/Vol] 139 mmol/L 133-145 [facility] White blood cell (WBC) count Ordered By: Jennifer Meléndez on 06-18-2024 WBC (Bld) [#/Vol] 7.3 10*3/uL 4.4-11.0 [facility] Culture, urineOrdered By: Russell Markham on 03-25-2023 Bacteria identified Cx Nom (U) Mixed Gram Pos & Gram Neg Org [facility] Basophil percentageOrdered B y: Ginger Grace on 02-02-2023 Bilirubin [Mass/Vol] 0.70 mg/dL 0.20-1.00 [facility] Comment on above: For patients on eltr ombopag therapy, use of Dimension [place] TBIL is not recommended. Cholesterol [Mass/Vol] 96 mg/dL <200 [facility] Comment on above: <200 mg/dL Desirable 200-240 mg/dL Borderline >240 mg/dL High Risk Protein [Mass/Vol] 6.1 g/dL 6.4-8.2 [facility] Triglyceride [Mass/Vol] 127 mg/dL <199 [facility] Comment on above: The drugs N-Acetylcy steine and Metamizole may falsely depress this assay.Serum Triglycerides Reference Interval Normal <150 mg/dL Borderline high 150 - 199 mg/dL High 200 - 499 mg/dL Very High > or = 500 mg/dL Direct bilirubinOrdered By: Ginger Grace on 02-02-2023 Bilirubin.direct [Mass/Vol] 0.19 mg/dL 0.00-0.30 [facility] Laboratory - Chemistry and C hemistry - challengeOrdered By: Ginger Grace on 02-02-2023 ALP [Catalytic activity/Vol] 105 U/L 45-117 [facility] ALT [Catalytic activity/Vol] 18 U/L 13-56 [facility] Globulin (S) [Mass/Vol] 3.4 g/dL 2.2-4.2 [facility] Serum or plasma albumin aaron urement (mass/volume)Ordered By: Ginger Grace on 02-02-2023 Albumin [Mass/Vol] 2.7 g/dL 3.2-5.0 [facility] Serum or plasma cholesterol in HDL measurement (mass/volume)Ordered By: Ginger Grace on 02-02-2023 Cholesterol in HDL [Mass/Vol] 39 mg/dL >40 [facility] Comment on above: The drugs N-Acetylcy steine and Metamizole may falsely depress this assay. Reference Range HDL <40 mg/dL Low HDL Cholesterol HDL >or= 60 mg/dL High HDL Cholesterol Serum or plasma cholesterol in VLDL measurement (mass/volume)Ordered By: Ginger Grace on 02-02-2023 Cholesterol in VLDL [Mass/Vol] 25 mg/dL 5-40 [facility] Serum or plasma low density lipoprotein (LDL) cholesterol measurement (mass/volume)Ordered By: Ginger Grace on 02-02-2023 Cholesterol in LDL [Mass/Vol] 32 mg/dL 0-130 [facility] Thin prep Papanicolaou smear with manual screeningOrdered By: Ginger Grace on 02-02-2023 Thin prep Papanicolaou smear with manual screening 14 U/L 15-37 [facility] Basophil percentageon 2021 Chloride [Moles/Vol] 106 mmol/L 98-107 [facility] Work Phone: Glucose [Mass/Vol] 102 mg/dL 74-106 [facility] Work Phone: Comment on above: Fasting Glucose resu lt from 100 to 125 mg/dL suggests IMPAIRED HOMEOSTASIS per A.D.A. criteria. Potassium [Moles/Vol] 4.0 mmol/L 3.5-5.1 [facility] Work Phone: Sodium [Moles/Vol] 141 mmol/L 136-145 [facility] Work Phone: Laboratory - Chemistry and C hemistry - challengeon 01-07-2022 CO2 [Moles/Vol] 28.0 mmol/L 21.0-32.0 [facility] Work Phone: Urea nitrogen/Creatinine [Mass ratio] 27.5 mg/mg 10-20 [facility] Work Phone: No Panel Informationon 01-07 Estimated GFR (MDRD) Amer 129 mL/min >60 [facility] Work Phone: Comment on above: GFR Calc Estimated GFR (MDRD) Non-Af Amer 107 mL/min >60 [facility] Work Phone: Comment on above: Non- GFR Calc Serum or plasma calcium aaron urement (mass/volume)on 01-07-2022 Calcium [Mass/Vol] 9.4 mg/dL 8.5-10.1 [facility] Work Phone: Serum or plasma creatinine m easurement (mass/volume)on 01-07-2022 Creatinine [Mass/Vol] 0.58 mg/dL 0.55-1.02 [facility] Work Phone: Comment on above: The validity of the calculated GFR & GFRAA in patients over 70 years has not been determined. Clinical correlation is essential. Serum or plasma urea nitroge n measurement (mass/volume)on 01-07-2022 Urea nitrogen [Mass/Vol] 16 mg/dL 7-18 [facility] Work Phone: Thin prep Papanicolaou smear with manual screeningon 01-07-2022 Thin prep Papanicolaou smear with manual screening 7 5-15 [facility] Work Phone: Basophil percentageon 2021 Bilirubin [Mass/Vol] 0.90 mg/dL 0.20-1.00 [facility] Work Phone: Comment on above: For patients on eltr ombopag therapy, use of Dimension [place] TBIL is not recommended. Chloride [Moles/Vol] 107 mmol/L 98-107 [facility] Work Phone: Cholesterol [Mass/Vol] 113 mg/dL <200 [facility] Work Phone: Comment on above: <200 mg/dL Desirable 200-240 mg/dL Borderline >240 mg/dL High Risk Glucose [Mass/Vol] 109 mg/dL 74-106 [facility] Work Phone: Comment on above: Fasting Glucose resu lt from 100 to 125 mg/dL suggests IMPAIRED HOMEOSTASIS per A.D.A. criteria. Potassium [Moles/Vol] 4.0 mmol/L 3.5-5.1 [facility] Work Phone: Protein [Mass/Vol] 6.6 g/dL 6.4-8.2 [facility] Work Phone: Sodium [Moles/Vol] 139 mmol/L 136-145 [facility] Work Phone: Triglyceride [Mass/Vol] 116 mg/dL <199 [facility] Work Phone: Comment on above: The drugs N-Acetylcy steine and Metamizole may falsely depress this assay.Serum Triglycerides Reference Interval Normal <150 mg/dL Borderline high 150 - 199 mg/dL High 200 - 499 mg/dL Very High > or = 500 mg/dL Direct bilirubinon 2 Bilirubin.direct [Mass/Vol] 0.27 mg/dL 0.00-0.30 [facility] Work Phone: Laboratory - Chemistry and C hemistry - challengeon 12-25-2021 ALP [Catalytic activity/Vol] 132 U/L 45-117 [facility] Work Phone: ALT [Catalytic activity/Vol] 15 U/L 13-56 [facility] Work Phone: CO2 [Moles/Vol] 30.0 mmol/L 21.0-32.0 [facility] Work Phone: Globulin (S) [Mass/Vol] 3.6 g/dL 2.2-4.2 [facility] Work Phone: Natriuretic peptide B (Bld) [Mass/Vol] 243.4 pg/mL 0-100 [facility] Work Phone: Urea nitrogen/Creatinine [Mass ratio] 22.1 mg/mg 10-20 [facility] Work Phone: No Panel Informationon 12-25 Estimated GFR (MDRD) Amer 139 mL/min >60 [facility] Work Phone: Comment on above: GFR Calc Estimated GFR (MDRD) Non-Af Amer 115 mL/min >60 [facility] Work Phone: Comment on above: Non- GFR Calc Serum or plasma albumin aaron urement (mass/volume)on 12-25-2021 Albumin [Mass/Vol] 3.0 g/dL 3.2-5.0 [facility] Work Phone: Serum or plasma calcium aaron urement (mass/volume)on 12-25-2021 Calcium [Mass/Vol] 10.0 mg/dL 8.5-10.1 [facility] Work Phone: Serum or plasma cholesterol in HDL measurement (mass/volume)on 12-25-2021 Cholesterol in HDL [Mass/Vol] 46 mg/dL >40 [facility] Work Phone: Comment on above: The drugs N-Acetylcy steine and Metamizole may falsely depress this assay. Reference Range HDL <40 mg/dL Low HDL Cholesterol HDL >or= 60 mg/dL High HDL Cholesterol Serum or plasma cholesterol in VLDL measurement (mass/volume)on 12-25-2021 Cholesterol in VLDL [Mass/Vol] 23 mg/dL 5-40 [facility] Work Phone: Serum or plasma creatinine m easurement (mass/volume)on 12-25-2021 Creatinine [Mass/Vol] 0.54 mg/dL 0.55-1.02 [facility] Work Phone: Comment on above: The validity of the calculated GFR & GFRAA in patients over 70 years has not been determined. Clinical correlation is essential. Serum or plasma low density lipoprotein (LDL) cholesterol measurement (mass/volume)on 12-25-2021 Cholesterol in LDL [Mass/Vol] 44 mg/dL 0-130 [facility] Work Phone: Serum or plasma urea nitroge n measurement (mass/volume)on 12-25-2021 Urea nitrogen [Mass/Vol] 12 mg/dL 7-18 [facility] Work Phone: Thin prep Papanicolaou smear with manual screeningon 12-25-2021 Thin prep Papanicolaou smear with manual screening 12 U/L 15-37 [facility] Work Phone: Thin prep Papanicolaou smear with manual screening 2 5-15 [facility] Work Phone: Absolute lymphocyte counton 10-12-2021 Lymphocytes Auto (Unsp spec) [#/Vol] 0.84 10*3/uL 0.83-4.51 [facility] Work Phone: Basophil percentageon 2021 Basophils/100 WBC (Bld) 0.1 % 0-1 [facility] Work Phone: Chloride [Moles/Vol] 107 mmol/L 98-107 [facility] Work Phone: Eosinophils/100 WBC (Bld) 1.2 % 0-5 [facility] Work Phone: Glucose [Mass/Vol] 110 mg/dL 74-106 [facility] Work Phone: Comment on above: Fasting Glucose resu lt from 100 to 125 mg/dL suggests IMPAIRED HOMEOSTASIS per A.D.A. criteria. Neutrophils (Bld) [#/Vol] 5.2 10*3/uL 2.0-7.7 [facility] Work Phone: Neutrophils/100 WBC (Bld) 77.9 % 47-70 [facility] Work Phone: [phone] Potassium [Moles/Vol] 4.5 mmol/L 3.5-5.1 [facility] Work Phone: Comment on above: Slight Hemolysis, Re sult may be falsely increased. Sodium [Moles/Vol] 140 mmol/L 136-145 [facility] Work Phone: WBC (Bld) [#/Vol] 6.7 10*3/uL 4.4-11.0 [facility] Work Phone: [phone] Blood erythrocytes count (nu mber/volume)on 10-12-2021 RBC (Bld) [#/Vol] 4.54 10*6/uL 4.2-5.4 [facility] Work Phone: Blood hemoglobin measurement (mass/volume)on 10-12-2021 Hemoglobin (Bld) [Mass/Vol] 13.5 g/dL 12.0-15.0 [facility] Work Phone: Blood lymphocytes/100 leukoc yteson 10-12-2021 Lymphocytes/100 WBC (Bld) 12.5 % 19-41 [facility] Work Phone: Blood monocytes/100 leukocyt eson 10-12-2021 Monocytes/100 WBC (Bld) 7.9 % 0-10 [facility] Work Phone: Blood platelet mean volumeon 10-12-2021 Platelet mean volume (Bld) [Entitic vol] 9.5 fL 6.2-12.0 [facility] Work Phone: Determination of erythrocyte mean corpuscular volume (MCV)on 10-12-2021 MCV (RBC) [Entitic vol] 92.7 fL 81-99 [facility] Work Phone: Hematocrit Auto (Bld) [Volum e fraction]on 10-12-2021 Hematocrit (Bld) [Volume fraction] 42.1 % 37-47 [facility] Work Phone: Laboratory - Chemistry and C hemistry - challengeon 10-12-2021 CO2 [Moles/Vol] 33.0 mmol/L 21.0-32.0 [facility] Work Phone: Urea nitrogen/Creatinine [Mass ratio] 26.6 mg/mg 10-20 [facility] Work Phone: Laboratory - Hematology and Cell countson 10-12-2021 Erythrocyte distribution width (RBC) [Entitic vol] 42.5 fL 35.1-43.9 [facility] Work Phone: [phone] Erythrocyte distribution width (RBC) [Ratio] 12.6 % 11.6-14.6 [facility] Work Phone: Immature granulocytes/100 WBC (Bld) 0.400 % 0.0-0.9 [facility] Work Phone: Comment on above: IG% - Immature Granu locytes (promyelocytes, myelocytes and metamyelocytes) > 1% indicates that a LEFT SHIFT is Present. MCH (RBC) [Entitic mass] 29.7 pg 27.0-32.0 [facility] Work Phone: Nucleated RBC/100 WBC (Bld) [Ratio] 0 % 0-5 [facility] Work Phone: MCHC Auto (RBC) [Mass/Vol]on 10-12-2021 MCHC (RBC) [Mass/Vol] 32.1 g/dL 32-36 [facility] Work Phone: No Panel Informationon 10-12 Troponin I High Sensitivity 13 pg/mL 3.0-54.0 [facility] Work Phone: Comment on above: Please Note: New Vanessa t Units and Gender Specific Reference Ranges. For more information see Policy Stat Procedure [place] High Sensitivity Troponin (TNIH) and attachments. Estimated Creatinine Clearance Calc 73.85 ml/min [facility] Work Phone: Estimated GFR (MDRD) Amer 134 mL/min >60 [facility] Work Phone: Comment on above: GFR Calc Estimated GFR (MDRD) Non-Af Amer 111 mL/min >60 [facility] Work Phone: Comment on above: Non- GFR Calc Platelets bldon 10-12-2021 Platelets (Bld) [#/Vol] 209 10*3/uL 150-450 [facility] Work Phone: Serum or plasma calcium aaron urement (mass/volume)on 10-12-2021 Calcium [Mass/Vol] 10.1 mg/dL 8.5-10.1 [facility] Work Phone: Serum or plasma creatinine m easurement (mass/volume)on 10-12-2021 Creatinine [Mass/Vol] 0.56 mg/dL 0.55-1.02 [facility] Work Phone: Comment on above: The validity of the calculated GFR & GFRAA in patients over 70 years has not been determined. Clinical correlation is essential. Serum or plasma urea nitroge n measurement (mass/volume)on 10-12-2021 Urea nitrogen [Mass/Vol] 15 mg/dL 7-18 [facility] Work Phone: Thin prep Papanicolaou smear with manual screeningon 10-12-2021 Thin prep Papanicolaou smear with manual screening 0 5-15 [facility] Work Phone: Basophil percentageon 2021 Bilirubin [Mass/Vol] 0.60 mg/dL 0.20-1.00 [facility] Work Phone: Comment on above: For patients on eltr ombopag therapy, use of Dimension [place] TBIL is not recommended. Cholesterol [Mass/Vol] 109 mg/dL <200 [facility] Work Phone: Comment on above: <200 mg/dL Desirable 200-240 mg/dL Borderline >240 mg/dL High Risk Protein [Mass/Vol] 6.3 g/dL 6.4-8.2 [facility] Work Phone: Triglyceride [Mass/Vol] 139 mg/dL [facility] Work Phone: Comment on above: The drugs N-Acetylcy steine and Metamizole may falsely depress this assay.Serum Triglycerides Reference Interval Normal <150 mg/dL Borderline high 150 - 199 mg/dL High 200 - 499 mg/dL Very High > or = 500 mg/dL Direct bilirubinon 2 Bilirubin.direct [Mass/Vol] 0.19 mg/dL 0.00-0.30 [facility] Work Phone: Laboratory - Chemistry and C hemistry - challengeon 05-30-2021 ALP [Catalytic activity/Vol] 101 U/L 45-117 [facility] Work Phone: ALT [Catalytic activity/Vol] 20 U/L 13-56 [facility] Work Phone: Globulin (S) [Mass/Vol] 3.2 g/dL 2.2-4.2 [facility] Work Phone: Serum or plasma albumin aaron urement (mass/volume)on 05-30-2021 Albumin [Mass/Vol] 3.1 g/dL 3.2-5.0 [facility] Work Phone: Serum or plasma cholesterol in HDL measurement (mass/volume)on 05-30-2021 Cholesterol in HDL [Mass/Vol] 41 mg/dL [facility] Work Phone: Comment on above: The drugs N-Acetylcy steine and Metamizole may falsely depress this assay. Reference Range HDL <40 mg/dL Low HDL Cholesterol HDL >or= 60 mg/dL High HDL Cholesterol Serum or plasma cholesterol in VLDL measurement (mass/volume)on 05-30-2021 Cholesterol in VLDL [Mass/Vol] 28 mg/dL 5-40 [facility] Work Phone: Serum or plasma low density lipoprotein (LDL) cholesterol measurement (mass/volume)on 05-30-2021 Cholesterol in LDL [Mass/Vol] 40 mg/dL 0-130 [facility] Work Phone: Thin prep Papanicolaou smear with manual screeningon 05-30-2021 Thin prep Papanicolaou smear with manual screening 13 U/L 15-37 [facility] Work Phone: Lab Report: Basic Metabolic Profile (BMP)on 10-28-2016 Anion gap 4 mmol/L Low 5-15 [facility] Work Phone: [phone] Anion gap molar conc 4 mmol/L Low 5-15 [facility] Work Phone: [phone] BUN/Creatinine Ratio 17.8 RATIO Invalid Interpretation Code 10-20 [facility] Work Phone: [phone] Calcium 9.8 mg/dL Invalid Interpretation Code 8.5-10.1 [facility] Work Phone: [phone] Chloride 107 mmol/L Invalid Interpretation Code 98-107 [facility] Work Phone: [phone] CO2 31.0 mmol/L Invalid Interpretation Code 21.0-32.0 [facility] Work Phone: [phone] CO2 ppres (BldV) 31.0 mmol/L 21.0-32.0 [facility] Work Phone: [phone] Creatinine 0.62 mg/dL Invalid Interpretation Code 0.55-1.02 [facility] Work Phone: [phone] eGFR (non-black) 122 mL/min/{1.73_m2} Invalid Interpretation Code >60 [facility] Work Phone: [phone] eGFR (non-black) 101 mL/min/{1.73_m2} Invalid Interpretation Code >60 [facility] Work Phone: [phone] GFR - AA 122 mL/min >60 [facility] Work Phone: [phone] Glucose 98 mg/dL Invalid Interpretation Code 70-110 [facility] Work Phone: [phone] Glucose mass conc 98 mg/dL 70-110 [facility] Work Phone: [phone] Potassium 4.4 mmol/L Invalid Interpretation Code 3.5-5.1 [facility] Work Phone: [phone] Sodium 142 mmol/L Invalid Interpretation Code 136-145 [facility] Work Phone: [phone] Urea nitrogen 11 mg/dL Invalid Interpretation Code 7-18 [facility] Work Phone: [phone] Office Visit: [facility] 08-27-19 17 Fall risk assessment No Invalid Interpretation Code [facility] Phone: [phone] Office Visiton 11-27-2015 Documentation of current medications (procedure) Done Invalid Interpretation Code [facility] Phone: [phone] Protein mass conc Done [facility] Work Phone: [phone] Clinical Lists Update: Prelo histology tech 11-23-2015 Left ventricular Ejection fraction 55 % Invalid Interpretation Code [facility] Work Phone: [phone] Clinical Lists Update: Pre histology tech 10-26-2015 Alanine aminotransferase (ALT) 17 U/L Invalid Interpretation Code [facility] Work Phone: [phone] Albumin 2.8 g/dL Low [facility] Work Phone: [phone] Alkaline phosphatase (ALP) 121 U/L Invalid Interpretation Code [facility] Work Phone: [phone] ALP enzyme act/vol (Bld) 121 U/L [facility] Work Phone: [phone] Anion gap 6 mmol/L Invalid Interpretation Code [facility] Work Phone: [phone] Anion gap molar conc 6 mmol/L [facility] Work Phone: [phone] Aspartate aminotransferase (AST) 13 U/L Low [facility] Work Phone: [phone] Bilirubin (total) 0.60 mg/dL Invalid Interpretation Code [facility] Work Phone: [phone] BUN/Creatinine Ratio 18.2 mg/mg Invalid Interpretation Code [facility] Work Phone: [phone] Calcium 9.1 mg/dL Invalid Interpretation Code [facility] Work Phone: [phone] Chloride 105 mmol/L Invalid Interpretation Code [facility] Work Phone: [phone] Cholesterol 91 mg/dL Invalid Interpretation Code [facility] Work Phone: [phone] CO2 27.0 mmol/L Invalid Interpretation Code [facility] Work Phone: [phone] CO2 ppres (BldV) 27.0 mmol/L [facility] Work Phone: [phone] Creatinine 0.55 mg/dL Invalid Interpretation Code [facility] Work Phone: [phone] Globulin 3.3 g/dL Invalid Interpretation Code [facility] Work Phone: [phone] Globulin mass conc (S) 3.3 g/dL [facility] Work Phone: [phone] Glucose 102 mg/dL Invalid Interpretation Code [facility] Work Phone: [phone] Glucose mass conc 102 mg/dL [facility] Work Phone: [phone] HDL Cholesterol 36 mg/dL Low [facility] Work Phone: [phone] LDL Cholesterol 32 mg/dL Invalid Interpretation Code [facility] Work Phone: [phone] Potassium 3.8 mmol/L Invalid Interpretation Code [facility] Work Phone: [phone] Protein 6.1 g/dL Low [facility] Work Phone: [phone] Sodium 138 mmol/L Invalid Interpretation Code [facility] Work Phone: [phone] Triglyceride 116 mg/dL Invalid Interpretation Code [facility] Work Phone: [phone] Urea nitrogen 10 mg/dL Invalid Interpretation Code [facility] Work Phone: [phone] very low density lipoproteins 23 mg/dL Invalid Interpretation Code [facility] Work Phone: [phone] Clinical Lists Update: Prelo histology tech 10-25-2015 Erythrocyte distribution width Ratio (RBC) 14.3 % [facility] Work Phone: [phone] Erythrocytes (RBC) 4.74 10*6/uL Invalid Interpretation Code [facility] Work Phone: [phone] Hematocrit (HCT) 40.1 % Invalid Interpretation Code [facility] Work Phone: [phone] Hematocrit Volume Fraction (Bld) 40.1 % [facility] Work Phone: [phone] Hemoglobin (HGB) 12.5 g/dL Invalid Interpretation Code [facility] Work Phone: [phone] MCH 26.4 pg Low [facility] Work Phone: [phone] MCH Entitic mass (RBC) 26.4 pg Low [facility] Work Phone: [phone] MCHC 31.2 g/dL Low [facility] Work Phone: [phone] MCHC mass conc (RBC) 31.2 g/dL Low [facility] Work Phone: [phone] MCV 84.6 fL Invalid Interpretation Code [facility] Work Phone: [phone] MCV Entitic volume (RBC) 84.6 fL [facility] Work Phone: [phone] Platelet mean volume Entitic volume (Bld) 9.3 fL [facility] Work Phone: [phone] Platelets 212 10*3/mm3 Invalid Interpretation Code [facility] Work Phone: [phone] Platelets #/vol (Bld) 212 10*3/mm3 [facility] Work Phone: [phone] PMV by Gabe 9.3 fL Invalid Interpretation Code [facility] Work Phone: [phone] RBC #/vol (Bld) 4.74 10*6/uL [facility] Work Phone: [phone] RDW-CA 14.3 % Invalid Interpretation Code [facility] Work Phone: [phone] WBC #/vol (Bld) 6.4 10*3/uL [facility] Work Phone: [phone] WBC (Leukocytes) 6.4 10*3/uL Invalid Interpretation Code [facility] Work Phone: [phone] Lab Report: Liver Profileon 06-25-2015 Bilirubin (direct) 0.12 mg/dL Invalid Interpretation Code 0.00-0.30 [facility] Work Phone: [phone] Globulin 3.9 g/dL High 2.3-3.5 [facility] Work Phone: [phone] Globulin mass conc (S) 3.9 g/dL High 2.3-3.5 [facility] Work Phone: [phone] Office Visit: [facility] 03-28-19 16 Tobacco smoking status KYIS Never smoker [facility] Work Phone: [phone] Tobacco use [facility] Never smoker Invalid Interpretation Code [facility] Work Phone: [phone] Office Visit: [facility] 03-01-20 14 cardiac risk group C Invalid Interpretation Code [facility] Work Phone: [phone] General cardiovascular disease 10Y risk [#] [place]D'Agostherson N/A Invalid Interpretation Code [facility] Work Phone: [phone] Tobacco smoking status KYIS Never Invalid Interpretation Code [facility] Work Phone: [phone] Replaced Document: [place] [facility] Observationson 03-01-2014 EKG QRS axis -32 deg [facility] Work Phone: [phone] electrocardiogram interpretation Sinus Rhythm -RSR(V1) -nondiagnostic. PROBABLY NORMAL Invalid Interpretation Code [facility] Work Phone: [phone] GE use only - for [employer] import when terms are not otherwise specified 406 ms Invalid Interpretation Code [employer] [facility] Work Phone: [phone] Interpretation Sinus Rhythm -RSR(V1 ) -nondiagnostic. PROBABLY NORMAL [employer] [facility] Work Phone: [phone] P [place] 60 deg [employer] Work Phone: [phone] P wave axis, electrocardiogram 60 deg Invalid Interpretation Code [facility] Work Phone: [phone] OK Interval 132 ms [facility] Work Phone: [phone] OK interval, electrocardiogram 132 ms Invalid Interpretation Code [facility] Work Phone: [phone] Pulse (Heart Rate) 73 /min Invalid Interpretation Code [facility] Work Phone: [phone] QRS axis, electrocardiogram -32 deg Invalid Interpretation Code [facility] Work Phone: [phone] QRS Duration 102 ms [facility] Work Phone: [phone] QRS duration, electrocardiogram 102 ms Invalid Interpretation Code [facility] Work Phone: [phone] QT Interval new path ms [facility] Work Phone: [phone] QT interval, electrocardiogram new path ms Invalid Interpretation Code [facility] Work Phone: [phone] QTc Lee 406 ms [facility] Work Phone: [phone] T [place] 10 deg [facility] Work Phone: [phone] T wave axis, electrocardiogram 10 deg Invalid Interpretation Code [facility] Work Phone: [phone] Lab Report: TROPon 2 Troponin I ng/mL Normal <0.06 [facility] Work Phone: [phone] Vital Signs Date Time Vital Sign Value Performing Clinician Faci lity 11-30-2024 16:11-0400 Body temperature 97.2 [degF] Dr. Lilly Fletcher MD Work Phone: [facility] 11-30-2024 16:11-0400 Diastolic blood pressure 84 mm[Hg] Dr. Lilly Fletcher MD Work Phone: [facility] 11-30-2024 16:11-0400 Heart rate 86 /min Dr. Lilly Fletcher MD Work Phone: [facility] 11-30-2024 16:11-0400 Inhaled oxygen flow rate 2 L/min Dr. Lilly Fletcher MD Work Phone: [facility] 11-30-2024 16:11-0400 Respiratory rate 18 /min Dr. Lilly Fletcher MD Work Phone: 6(423)549-747705 [place] [address] 11-30-2024 16:11-0400 SaO2% (BldA) [Mass fraction] 98 % Dr. Lilly Fletcher MD Work Phone: 3(558)585-766705 [place] [address] 11-30-2024 16:11-0400 Systolic blood pressure 113 mm[Hg] Dr. Lilly Fletcher MD Work Phone: 2(305)692-600805 [place] [address] 11-30-2024 08:19-0400 Body temperature 97.6 [degF] Dr. Lilly Fletcher MD Work Phone: 9(862)872-053305 [place] [address] 11-30-2024 08:19-0400 Diastolic blood pressure 58 mm[Hg] Dr. Lilly Fletcher MD Work Phone: 4(123)938-376805 [place] [address] 11-30-2024 08:19-0400 Heart rate 70 /min Dr. Lilly Fletcher MD Work Phone: 2(002)037-353105 [place] [address] 11-30-2024 08:19-0400 Inhaled oxygen flow rate 2 L/min Dr. Lilly Fletcher MD Work Phone: 9(685)202-903905 [place] [address] 11-30-2024 08:19-0400 Respiratory rate 15 /min Dr. Lilly Fletcher MD Work Phone: 3(865)748-811805 [place] [address] 11-30-2024 08:19-0400 SaO2% (BldA) [Mass fraction] 100 % Dr. Lilly Fletcher MD Work Phone: 0(537)655-864805 [place] [address] 11-30-2024 08:19-0400 Systolic blood pressure 132 mm[Hg] Dr. Lilly Fletcher MD Work Phone: 3(708)498-041305 [place] [address] 11-30-2024 05:16-0400 Body mass index (BMI) [Ratio] 41.8 kg/m2 Dr. Lilly Fletcher MD Work Phone: 5(399)440-899605 [place] [address] 11-30-2024 05:16-0400 Body weight 94.[address] Lilly Fletcher MD Work Phone: 3(482)295-966869 [place] [address] 11-26-2024 21:47-0400 Body height 149.[address] Lilly Fletcher MD Work Phone: 5(476)637-252005 [place] [address] 10-26-2024 14:55-0400 Body temperature 97.6 [degF] Dr. Lilly Fletcher MD Work Phone: 2(088)489-882105 [place] [address] 10-26-2024 14:55-0400 Diastolic blood pressure 78 mm[Hg] Dr. Lilly Fletcher MD Work Phone: 0(722)898-970805 [place] [address] 10-26-2024 14:55-0400 Heart rate 88 /min Dr. Lilly Fletcher MD Work Phone: 1(036)942-160105 [place] [address] 10-26-2024 14:55-0400 Respiratory rate 18 /min Dr. Lilly Fletcher MD Work Phone: 1(442)020-199905 [place] [address] 10-26-2024 14:55-0400 SaO2% (BldA) [Mass fraction] 95 % Dr. Lilly Fletcher MD Work Phone: 1(819)232-963105 [place] [address] 10-26-2024 14:55-0400 Systolic blood pressure 122 mm[Hg] Dr. Lilly Fletcher MD Work Phone: 4(627)422-996505 [place] [address] 10-26-2024 08:09-0400 Inhaled oxygen flow rate 2 L/min Dr. Lilly Fletcher MD Work Phone: 9(857)930-241469 [place] [address] 10-26-2024 04:21-0400 Body mass index (BMI) [Ratio] 36.9 kg/m2 Dr. Lilly Fletcher MD Work Phone: 4(959)268-824269 [place] [address] 10-26-2024 04:21-0400 Body weight [address] Lilly Fletcher MD Work Phone: 5(755)836-712305 [place] [address] 10-25-2024 17:43-0400 Body height 149.[address] Lilly Fletcher MD Work Phone: 1(931)329-866469 [place] [address] 10-25-2024 17:00-0400 Diastolic blood pressure 70 mm[Hg] Dr. Lilly Fletcher MD Work Phone: 6(446)527-838969 [place] [address] 10-25-2024 17:00-0400 Heart rate 65 /min Dr. Lilly Fletcher MD Work Phone: 8(875)745-617631 [address] 10-25-2024 17:00-0400 SaO2% (BldA) [Mass fraction] 100 % Dr. Lilly Fletcher MD Work Phone: 5(993)501-269769 [place] [address] 10-25-2024 17:00-0400 Systolic blood pressure 128 mm[Hg] Dr. Lilly Fletcher MD Work Phone: 6(607)283-090505 [place] [address] 10-25-2024 16:17-0400 Body temperature 98 [degF] Dr. Lilly Fletcher MD Work Phone: 0(099)169-303005 [place] [address] 10-25-2024 16:17-0400 Respiratory rate 18 /min Dr. Lilly Fletcher MD Work Phone: 0(913)768-376231 [address] 10-25-2024 12:05-0400 Body height 149.[address] Lilly Fletcher MD Work Phone: 3(547)344-243905 [place] [address] 10-25-2024 12:05-0400 Body mass index (BMI) [Ratio] 42.3 kg/m2 Dr. Lilly Fletcher MD Work Phone: 2(059)762-855105 [place] [address] 10-25-2024 12:05-0400 Body weight 94.[address] Lilly Fletcher MD Work Phone: 9(163)796-173269 [place] [address] 10-21-2024 15:18-0400 Body temperature 97.9 [degF] Dr. Lilly Fletcher MD Work Phone: 3(150)827-320405 [place] [address] 10-21-2024 15:18-0400 Diastolic blood pressure 81 mm[Hg] Dr. Lilly Fletcher MD Work Phone: 4(141)292-279069 [place] [address] 10-21-2024 15:18-0400 Heart rate 85 /min Dr. Lilly Fletcher MD Work Phone: 2(457)796-552569 [place] [address] 10-21-2024 15:18-0400 Respiratory rate 20 /min Dr. Lilly Fletcher MD Work Phone: [facility] 10-21-2024 15:18-0400 SaO2% (BldA) [Mass fraction] 94 % Dr. Lilly Fletcher MD Work Phone: [facility] 10-21-2024 15:18-0400 Systolic blood pressure 170 mm[Hg] Dr. Lilly Fletcher MD Work Phone: [facility] 10-21-2024 09:41-0400 Body height 149.[address] Lilly Fletcher MD Work Phone: [facility] 10-21-2024 09:41-0400 Body mass index (BMI) [Ratio] 43.7 kg/m2 Dr. Lilly Fletcher MD Work Phone: 8(975)918-336269 [place] [address] 10-21-2024 09:41-0400 Body weight 98.[address] Lilly Fletcher MD Work Phone: [facility] 09-09-2024 23:08-0400 Body temperature 98.2 [degF] Dr. Lilly Fletcher MD Work Phone: [facility] 09-09-2024 23:08-0400 Diastolic blood pressure 80 mm[Hg] Dr. Lilly Fletcher MD Work Phone: [facility] 09-09-2024 23:08-0400 Heart rate 59 /min Dr. Lilly Fletcher MD Work Phone: [facility] 09-09-2024 23:08-0400 Respiratory rate 18 /min Dr. Lilly Fletcher MD Work Phone: [facility] 09-09-2024 23:08-0400 SaO2% (BldA) [Mass fraction] 94 % Dr. Lilly Fletcher MD Work Phone: [facility] 09-09-2024 23:08-0400 Systolic blood pressure 163 mm[Hg] Dr. Lilly Fletcher MD Work Phone: [facility] 09-09-2024 20:06-0400 Body height 149.[address] Lilly Fletcher MD Work Phone: 9(244)986-846969 [place] [address] 09-09-2024 20:06-0400 Body mass index (BMI) [Ratio] 43.7 kg/m2 Dr. Lilly Fletcher MD Work Phone: 5(182)421-871905 [place] [address] 09-09-2024 20:06-0400 Body weight 98.[address] Lilly Fletcher MD Work Phone: 7(051)004-786531 [address] 09-05-2024 16:01-0400 Body height 149.[address] Lilly Fletcher MD Work Phone: 6(441)921-080405 [place] [address] 09-05-2024 16:01-0400 Body mass index (BMI) [Ratio] 42 kg/m2 Dr. Lilly Fletcher MD Work Phone: 3(280)239-444869 [place] [address] 09-05-2024 16:01-0400 Body weight 94.[address] Lilly Fletcher MD Work Phone: 2(950)808-593569 [place] [address] 09-05-2024 16:01-0400 Diastolic blood pressure 82 mm[Hg] Dr. Lilly Fletcher MD Work Phone: 4(704)387-435905 [place] [address] 09-05-2024 16:01-0400 Heart rate 66 /min Dr. Lilly Fletcher MD Work Phone: 7(431)125-455905 [place] [address] 09-05-2024 16:01-0400 Respiratory rate 18 /min Dr. Lilly Fletcher MD Work Phone: 4(603)862-171869 [place] [address] 09-05-2024 16:01-0400 Systolic blood pressure 142 mm[Hg] Dr. Lilly Fletcher MD Work Phone: 8(745)457-047505 [place] [address] 08-15-2024 15:31-0400 Body height 149.[address] Lilly Fletcher MD Work Phone: 5(776)561-808605 [place] [address] 08-15-2024 15:31-0400 Body mass index (BMI) [Ratio] 41.3 kg/m2 Dr. Lilly Fletcher MD Work Phone: [facility] 08-15-2024 15:31-0400 Body weight 92.[address] Lilly Fletcher MD Work Phone: [facility] 08-15-2024 15:31-0400 Diastolic blood pressure 66 mm[Hg] Dr. Lilly Fletcher MD Work Phone: [facility] 08-15-2024 15:31-0400 Heart rate 74 /min Dr. Lilly Fletcher MD Work Phone: [facility] 08-15-2024 15:31-0400 Respiratory rate 20 /min Dr. Lilly Fletcher MD Work Phone: [facility] 08-15-2024 15:31-0400 Systolic blood pressure 142 mm[Hg] Dr. Lilly Fletcher MD Work Phone: 6(893)683-942669 [place] [address] 08-02-2024 06:53-0400 Body temperature 97.8 [degF] Dr. Lilly Fletcher MD Work Phone: [facility] 08-02-2024 06:53-0400 Diastolic blood pressure 62 mm[Hg] Dr. Lilly Fletcher MD Work Phone: [facility] 08-02-2024 06:53-0400 Heart rate 67 /min Dr. Lilly Fletcher MD Work Phone: [facility] 08-02-2024 06:53-0400 Respiratory rate 18 /min Dr. Lilly Fletcher MD Work Phone: [facility] 08-02-2024 06:53-0400 SaO2% (BldA) [Mass fraction] 95 % Dr. Lilly Fletcher MD Work Phone: [facility] 08-02-2024 06:53-0400 Systolic blood pressure 140 mm[Hg] Dr. Lilly Fletcher MD Work Phone: [facility] 08-02-2024 03:44-0400 Body height 149.[address] Lilly Fletcher MD Work Phone: [facility] 08-02-2024 03:44-0400 Body mass index (BMI) [Ratio] 42.5 kg/m2 Dr. Lilly Fletcher MD Work Phone: 8(360)244-833769 [place] [address] 08-02-2024 03:44-0400 Body weight 95.[address] Lilly Fletcher MD Work Phone: 0(371)380-011305 [place] [address] 06-18-2024 21:58-0400 Body temperature 98.1 [degF] Dr. Lilly Fletcher MD Work Phone: 0(979)082-174305 [facility] [place] [address] 06-18-2024 21:58-0400 Diastolic blood pressure 60 mm[Hg] Dr. Lilly Fletcher MD Work Phone: 4(423)978-400205 [place] [address] 06-18-2024 21:58-0400 Heart rate 91 /min Dr. Lilly Fletcher MD Work Phone: 3(128)535-634705 [place] [address] 06-18-2024 21:58-0400 Respiratory rate 16 /min Dr. Lilly Fletcher MD Work Phone: 6(123)947-211705 [place] [address] 06-18-2024 21:58-0400 SaO2% (BldA) [Mass fraction] 97 % Dr. Lilly Fletcher MD Work Phone: 2(441)738-928405 [place] [address] 06-18-2024 21:58-0400 Systolic blood pressure 116 mm[Hg] Dr. Lilly Fletcher MD Work Phone: 6(287)901-318669 [place] [address] 06-18-2024 20:34-0400 Body height 149.[address] Lilly Fletcher MD Work Phone: 3(728)984-871705 [place] [address] 06-18-2024 20:34-0400 Body mass index (BMI) [Ratio] 43.2 kg/m2 Dr. Lilly Fletcher MD Work Phone: 4(093)021-010505 [place] [address] 06-18-2024 20:34-0400 Body weight 97.[address] Lilly Fletcher MD Work Phone: 5(760)415-801305 [place] [address] 03-25-2023 16:24-0500 Body height 149.[address] Lilly Fletcher Work Phone: [facility] 03-25-2023 16:24-0500 Body mass index (BMI) [Ratio] 43 kg/m2 Dr. Lilly Fletcher Work Phone: [facility] 03-25-2023 16:24-0500 Body temperature 97.8 [degF] Dr. Lilly Fletcher Work Phone: 2(617)433-335269 [place] [address] 03-25-2023 16:24-0500 Body weight 96.[address] Lilly Fletcher Work Phone: 3(218)272-234705 [place] [address] 03-25-2023 16:24-0500 Diastolic blood pressure 90 mm[Hg] Dr. Lilly Fletcher Work Phone: 8(574)718-637705 [place] [address] 03-25-2023 16:24-0500 Heart rate 82 /min Dr. Lilly Fletcher Work Phone: 5(418)731-669369 [place] [address] 03-25-2023 16:24-0500 Respiratory rate 20 /min Dr. Lilly Fletcher Work Phone: 0(786)523-307031 [address] 03-25-2023 16:24-0500 SaO2% (BldA) [Mass fraction] 95 % Dr. Lilly Fletcher Work Phone: 2(509)635-311769 [place] [address] 03-25-2023 16:24-0500 Systolic blood pressure 152 mm[Hg] Dr. Lilly Fletcher Work Phone: 6(000)484-637469 [place] [address] 02-02-2023 10:11-0500 Body height 149.[address] Lilly Fletcher Work Phone: 2(996)147-502369 [place] [address] 02-02-2023 10:11-0500 Body mass index (BMI) [Ratio] 43.8 kg/m2 Dr. Lilly Fletcher Work Phone: 3(252)360-700869 [place] [address] 02-02-2023 10:11-0500 Body weight 98.[address] Lilly Fletcher Work Phone: 9(077)981-839369 [place] [address] 02-02-2023 10:11-0500 Diastolic blood pressure 73 mm[Hg] Dr. Lilly Fletcher Work Phone: [facility] 02-02-2023 10:11-0500 Heart rate 87 /min Dr. Lilly Fletcher Work Phone: [facility] 02-02-2023 10:11-0500 Respiratory rate 18 /min Dr. Lilly Fletcher Work Phone: [facility] 02-02-2023 10:11-0500 SaO2% (BldA) [Mass fraction] 94 % Dr. Lilly Fletcher Work Phone: [facility] 02-02-2023 10:11-0500 Systolic blood pressure 137 mm[Hg] Dr. Lilly Fletcher Work Phone: [facility] 10-31-2021 10:51-0400 Body height 147.[address] Lilly Fletcher Work Phone: [facility] Work Phone: 10-31-2021 10:51-0400 Body mass index (BMI) [Ratio] 44.5 kg/m2 Dr. Lilly Fletcher Work Phone: [facility] Work Phone: 10-31-2021 10:51-0400 Body weight 96.[address] Lilly Fletcher Work Phone: [facility] Work Phone: 10-31-2021 10:51-0400 Diastolic blood pressure 90 mm[Hg] Dr. Lilly Fletcher Work Phone: [facility] Work Phone: 10-31-2021 10:51-0400 Heart rate 67 /min Dr. Lilly Fletcher Work Phone: [facility] Work Phone: 10-31-2021 10:51-0400 Respiratory rate 20 /min Dr. Lilly Fletcher Work Phone: [facility] Work Phone: 10-31-2021 10:51-0400 SaO2% (BldA) [Mass fraction] 94 % Dr. Lilly Fletcher Work Phone: [facility] Work Phone: 10-31-2021 10:51-0400 Systolic blood pressure 157 mm[Hg] Dr. Lilly Fletcher Work Phone: [facility] Work Phone: 10-12-2021 18:12-0400 Diastolic blood pressure 98 mm[Hg] [facility] Work Phone: 10-12-2021 18:12-0400 Heart rate 66 /min [facility] Work Phone: 10-12-2021 18:12-0400 Respiratory rate 17 /min [facility] Work Phone: 10-12-2021 18:12-0400 SaO2% (BldA) [Mass fraction] 97 % [facility] Work Phone: 10-12-2021 18:12-0400 Systolic blood pressure 169 mm[Hg] [facility] Work Phone: 10-12-2021 13:21-0400 Body height 147.32 cm [facility] Work Phone: 10-12-2021 13:21-0400 Body mass index (BMI) [Ratio] 45.7 kg/m2 [facility] Work Phone: 10-12-2021 13:21-0400 Body temperature 98.1 [degF] [facility] Work Phone: 10-12-2021 13:21-0400 Body weight 99.3 kg [facility] Work Phone: 04-18-2021 07:35-0500 Body height 152.[address] Lilly Fletcher Work Phone: [facility] Work Phone: 04-18-2021 07:35-0500 Body mass index (BMI) [Ratio] 40.8 kg/m2 Dr. Lilly Fletcher Work Phone: [facility] Work Phone: 04-18-2021 07:35-0500 Body weight 95.[address] Lilly Fletcher Work Phone: [facility] Work Phone: 04-18-2021 07:35-0500 Diastolic blood pressure 84 mm[Hg] Dr. iLlly Fletcher Work Phone: [facility] Work Phone: 04-18-2021 07:35-0500 Heart rate 82 /min Dr. Lilly Fletcher Work Phone: [facility] Work Phone: 04-18-2021 07:35-0500 Respiratory rate 18 /min Dr. Lilly Fletcher Work Phone: [facility] Work Phone: 04-18-2021 07:35-0500 SaO2% (BldA) [Mass fraction] 95 % Dr. Lilly Fletcher Work Phone: [facility] Work Phone: 04-18-2021 07:35-0500 Systolic blood pressure 132 mm[Hg] Dr. Lilly Fletcher Work Phone: [facility] Work Phone: 10-28-2016 11:34-0400 BP Diastolic 108 mm[Hg] [facility] Work Phone: 10-28-2016 11:34-0400 BP Systolic 150 mm[Hg] [facility] Work Phone: 10-28-2016 11:34-0400 Pulse (Heart Rate) 76 /min [facility] Work Phone: 10-28-2016 11:34-0400 Respiratory Rate 20 /min [facility] Work Phone: 09-24-2016 11:42-0400 BP Diastolic 90 mm[Hg] Harumi DeFinis [facility] Work Phone: 09-24-2016 11:42-0400 BP Systolic 148 mm[Hg] Harumi DeFinis [facility] Work Phone: 09-24-2016 11:42-0400 Pulse (Heart Rate) 64 /min Harumi DeFinis [facility] Work Phone: 09-24-2016 11:42-0400 Respiratory Rate 20 /min Harumi DeFinis [facility] Work Phone: 09-08-2016 11:25-0400 BP Diastolic 90 mm[Hg] Harumi DeFinis [facility] Work Phone: 09-08-2016 11:25-0400 BP Systolic 160 mm[Hg] Harumi DeFin[facility] Work Phone: 09-08-2016 11:25-0400 Pulse (Heart Rate) 72 /min Harumi DeFinis [facility] Work Phone: 09-08-2016 11:25-0400 Respiratory Rate 20 /min Harumi DeFin[facility] Work Phone: 08-26-2016 11:40-0400 BMI (Body Mass Index) 42.65 kg/m2 Elie Davis MD [facility] Work Phone: 08-26-2016 11:40-0400 BP Diastolic 74 mm[Hg] [facility] Work Phone: 08-26-2016 11:40-0400 BP Systolic 160 mm[Hg] Elie Davis MD [facility] Work Phone: 08-26-2016 11:40-0400 Height 152.4 cm Elie Davis MD [facility] Work Phone: 08-26-2016 11:40-0400 Pulse (Heart Rate) 72 /min Elie Davis MD [facility] Work Phone: 08-26-2016 11:40-0400 Respiratory Rate 20 /min Elie Davis MD [facility] Work Phone: 08-26-2016 11:40-0400 Weight 99.07 kg Elie Davis MD [facility] Work Phone: 11-27-2015 15:03-0400 BSA (Body Surface Area) 1.95 m2 Elie Davis MD [facility] Work Phone: 03-01-2014 09:21-0500 Heart rate 73 /min Nella Valerio [facility] Work Phone: Encounters Encounter Date Encounter Type Care Provider Facility Start: 01-03-2025 ambulatory [facility] Start: 12-22-2024 ambulatory [facility] Start: 12-19-2024 ambulatory [facility] Start: 11-30-2024 Dr. Paul Lauren MD [facility] Work Phone: Start: 11-29-2024 Dr. Paul Lauren MD -[facility] Work Phone: Start: 11-28-2024 Dr. Paul Lauren MD [facility] Work Phone: Start: 11-27-2024 Dr. Paul Lauren MD [facility] Work Phone: Start: 11-26-2024 End: 11-30-2024 ambulatory [facility] Facility:[facility] Start: 11-26-2024 End: 11-30-[address] Lilly Fletcher MD Work Phone: -[facility] 3 Start: 11-26-2024 End: 11-30-2024 Dr. Paul Lauren MD -[facility] 3 Work Phone: Start: 10-26-2024 Dr. Seth Flores MD [facility] Work Phone: Start: 10-26-2024 Non-patient / Non-visit Dr. Franko cadena MD -[facility] Start: 10-26-2024 Dr. Franko Franco MD -[facility] Start: 10-26-2024 ambulatory Brayan Gerber lity:[facility] Start: 10-25-2024 End: 10-26-2024 ambulatory Aranza Little Facility:[facility] Start: 10-25-2024 End: 10-26-2024 Evaluation and management of inpatient Dr. Aranza Little MD -Progressive Care Unit Work Phone: Start: 10-25-2024 End: 10-26-[address] Lilly Fletcher MD Work Phone: -[facility] Start: 10-25-2024 End: 10-26-2024 Dr. Seth Flores MD -[facility] Work Phone: Start: 10-21-2024 End: 10-21-2024 Dr. Donovan Pierson DO -Emergency Departsd nt Work Phone: Start: 10-21-2024 End: 10-21-2024 Emergency department patient visit Dr. Lilly Fletcher MD Work Phone: -Emergency Department Work Phone: Start: 10-14-2024 End: 10-14-2024 Patient encounter procedure Ginger Grace [employer]-C -[facility] Work Phone: Start: 10-14-2024 End: 10-14-2024 Ginger Grace NP-C -[facility] Work Phone: Start: 10-14-2024 End: 10-14-[address] Lilly Fletcher MD Work Phone: -[facility] Start: 10-01-2024 End: 10-01-[address] Lilly Fletcher MD Work Phone: -Laboratory Start: 10-01-2024 End: 10-01-2024 Patient encounter procedure Kale Ansari [employer]-C -Laboratory Work Phone: Start: 10-01-2024 End: 10-01-2024 Kale Ansari [employer]-C -Laboratory Work Phone: Start: 10-01-2024 End: 10-01-2024 ambulatory No Primary Care Physician Facility:[facility] Start: 09-14-2024 ambulatory Kale Ansari [employer] Facility :[facility] Start: 09-09-2024 End: 09-09-2024 Emergency department patient visit Dr. Lilly Fletcher MD Work Phone: -Emergency Department Work Phone: Start: 09-09-2024 End: 09-09-2024 Dr. Donovan Pierson DO -Emergency Departsd nt Work Phone: Start: 09-05-2024 End: 09-05-2024 Patient encounter procedure Kale Ansari [employer]-C -[facility] Work Phone: Start: 09-05-2024 End: 09-05-2024 Kale Ansari [employer]-C -[facility] Work Phone: Start: 09-05-2024 End: 09-05-[address] Lilly Fletcher MD Work Phone: [facility] Start: 08-29-2024 ambulatory Kale Ansari [employer] Facility :[facility] Start: 08-29-2024 Dr. Elie Davis MD -[facility] Work Phone: Start: 08-29-2024 ambulatory Kale Ansari [employer] Facility :[facility] Start: 08-29-2024 Registered Referred Kale Ansari [employer]-C -Cardiovascular Services Work Phone: Start: 08-29-2024 Kale Ansari [employer]-C -Cardi ovascular Services Work Phone: Start: 08-15-2024 End: 08-15-2024 Patient encounter procedure Kale Ansari [employer]C -[facility] Work Phone: Start: 08-15-2024 End: 08-15-2024 Kale Ansari [employer]C -[facility] Work Phone: Start: 08-15-2024 End: 08-15-[address] Lilly [place] MD [place] [facility] [place]: Start: 08-02-2024 End: 08-02-2024 Dr. Jaylen Jack DO -Emergency Departsd nt Work Phone: Start: 08-02-2024 End: 08-02-2024 Emergency department patient visit Dr. Lilly Fletcher MD Work Phone: -Emergency Department Work Phone: Start: 06-18-2024 End: 06-18-2024 Emergency department patient visit Dr. Lilly Fletcher MD Work Phone: -Emergency Department Work Phone: Start: 03-25-2023 End: 03-25-[address] Lilly Fletcher Work Phone: [facility] Work Phone: Start: 03-25-2023 End: 03-25-[address] Lilly Fletcher Work Phone: [facility] Work Phone: Start: 02-02-2023 End: 02-02-[address] Lilly Fletcher Work Phone: [facility] Work Phone: Start: 02-02-2023 End: 02-02-[address] Lilly Fletcher Work Phone: [facility] Work Phone: Start: 01-07-2022 End: 01-07-[address] Lilly Fletcher Work Phone: [facility] Work Phone: Start: 01-07-2022 End: 01-07-[address] Lilly Fletcher Work Phone: [facility]-Laboratory Start: 12-25-2021 End: 12-25-[address] Lilly Fletcher Work Phone: [facility] Work Phone: Start: 12-25-2021 End: 12-25-[address] [facility] Start: 11-20-2021 Non-patient / Non-visit Dr. Bella Fletcher Work Phone: [facility] Start: 11-20-2021 End: 11-20-[address] Lilly Fletcher Work Phone: [facility] Work Phone: Start: 11-20-2021 End: 11-20-[address] Lilly Fletcher Work Phone: [facility]-Cardiovascula r Services Start: 11-07-2021 End: 11-07-[address] Lilly Fletcher Work Phone: [facility] Work Phone: Start: 11-07-2021 End: 11-07-[address] Lilly Fletcher Work Phone: [facility]-Pulmonary Services/Neurology Start: 10-31-2021 End: 10-31-[address] Lilly Fletcher Work Phone: [facility] Start: 10-12-2021 End: 10-12-2021 Emergency department patient visit [facility]-Emergency Department Start: 05-30-2021 End: 05-30-[address] Lilly Fletcher Work Phone: [facility]-Laboratory Start: 05-08-2021 Non-patient / Non-visit Dr. Bella Fletcher Work Phone: [facility] Start: 05-08-2021 End: 05-08-[address] Lilly Fletcher Work Phone: [facility]Cardiovascula [facility] Services Start: 04-18-2021 End: 04-18-[address] Lilly Fletcher Work Phone: [facility] Procedures Date Procedure Procedure Detail Performing Clinician Start: 11-28-2024 Plain chest X-ray Dr. Preston Fletcher MD Work Phone: Start: 11-28-2024 Blood count smear mc rscp w/mnl difrntl wbc count Dr. Lilly lFetcher MD Work Phone: Start: 11-28-[address] Lilly Fletcher MD Work Phone: Start: 11-28-2024 Mean corpuscular hem oglobin concentration determination Dr. Lilly Fletcher MD Work Phone: Start: 11-28-[address] Bella Fletcher MD Work Phone: Start: 11-28-2024 Nucleated red blood cell count procedure Dr. Lilly Fletcher MD Work Phone: Start: 11-28-2024 Platelet mean volume determination Dr. Lilly Fletcher MD Work Phone: Start: 11-28-2024 Serum inorganic phos phate measurement Dr. Lilly Fletcher MD Work Phone: Start: 11-27-[address] Lilly Fletcher MD Work Phone: Start: 11-27-2024 Total cholesterol:HD L ratio measurement Dr. Lilly Fletcher MD Work Phone: Start: 11-27-[address] iLlly Fletcher MD Work Phone: Start: 11-26-2024 Radiologic exam chest [address] Lilly Fletcher MD Work Phone: Start: 11-26-2024 CT cervical spine wi thout contrast Dr. Lilly Fletcher MD Work Phone: Start: 11-26-2024 Benzodiazepine measu rement, urine Dr. Lilly Fletcher MD Work Phone: Start: 11-26-2024 Cocaine measurement, urine Dr. Lilly Fletcher MD Work Phone: Start: 11-26-2024 Methadone measurement, urine Dr. Lilly Fletcher MD Work Phone: Start: 11-26-[address] Lilly Fletcher MD Work Phone: Start: 11-26-2024 Urine microscopy: red cells Dr. Lilly Fletcher MD Work Phone: Start: 11-26-[address] Lilly Fletcher MD Work Phone: Start: 11-26-2024 Urnls dip stick/tabl et reagent auto microscopy Dr. Lilly Fletcher MD Work Phone: Start: 11-26-2024 Calculation of inter national normalized ratio Dr. Lilly Fletcher MD Work Phone: Start: 11-26-2024 CT of head without contrast Dr. Lilly Fletcher MD Work Phone: Start: 11-26-2024 Dr. Lilly mora MD Work Phone: Start: 10-26-2024 Cardiovascular stres s test using pharmacologic stress agent Dr. Lilly Fletcher MD Work Phone: Start: 10-26-2024 Blood count smear mc rscp w/mnl difrntl wbc count Dr. Lilly Fletcher MD Work Phone: Start: 10-26-[address] Lilly Fletcher MD Work Phone: Start: 10-26-2024 Mean corpuscular hem oglobin concentration determination Dr. Lilly Fletcher MD Work Phone: Start: 10-26-[address] Bella Fletcher MD Work Phone: Start: 10-26-2024 Nucleated red blood cell count procedure Dr. Lilly Fletcher MD Work Phone: Start: 10-26-2024 Platelet mean volume determination Dr. Lilly Fletcher MD Work Phone: Start: 10-26-2024 Total cholesterol:HD L ratio measurement Dr. Lilly Fletcher MD Work Phone: Start: 10-26-[address] Lilly Fletcher MD Work Phone: Start: 10-25-2024 Urine microscopy: red cells Dr. Lilly Fletcher MD Work Phone: Start: 10-25-2024 Urnls dip stick/tabl et reagent auto microscopy Dr. Lilly Fletcher MD Work Phone: Start: 10-25-2024 Plain chest X-ray Dr. Preston Fletcher MD Work Phone: Start: 10-25-[address] Lilly santana MD Work Phone: Start: 10-25-[address] Lilly Fletcher MD Work Phone: Start: 10-21-2024 Plain chest X-ray Dr. Preston Fletcher MD Work Phone: Start: 10-21-2024 Blood count smear mc rscp w/mnl difrntl wbc count Dr. Lilly Fletcher MD Work Phone: Start: 10-21-[address] Lilly Fletcher MD Work Phone: Start: 10-21-2024 Mean corpuscular hem oglobin concentration determination Dr. Lilly Fletcher MD Work Phone: Start: 10-21-[address] Bella Fletcher MD Work Phone: Start: 10-21-2024 Nucleated red blood cell count procedure Dr. Lilly Fletcher MD Work Phone: Start: 10-21-2024 Platelet mean volume determination Dr. Lilly Fletcher MD Work Phone: Start: 10-01-[address] Lilly Fletcher MD Work Phone: Start: 10-01-2024 Total cholesterol:HD L ratio measurement Dr. Lilly Fletcher MD Work Phone: Start: 10-01-[address] Lilly Fletcher MD Work Phone: Start: 09-09-2024 Plain chest X-ray Dr. Preston Fletcher MD Work Phone: Start: 09-09-2024 Blood count smear mc rscp w/mnl difrntl wbc count Dr. Lilly Fletcher MD Work Phone: Start: 09-09-[address] Lilly Fletcher MD Work Phone: Start: 09-09-2024 Mean corpuscular hem oglobin concentration determination Dr. Lilly Fletcher MD Work Phone: Start: 09-09-[address] Bella Fletcher MD Work Phone: Start: 09-09-2024 Nucleated red blood cell count procedure Dr. Lilly Fletcher MD Work Phone: Start: 09-09-2024 Platelet mean volume determination Dr. Lilly Fletcher MD Work Phone: Start: 08-02-2024 Urine microscopy: red cells Dr. Lilly Fletcher MD Work Phone: Start: 08-02-2024 Urnls dip stick/tabl et reagent auto microscopy Dr. Lilly Fletcher MD Work Phone: Start: 08-02-2024 End: 08-02-[address] Lilly Fletcher MD Work Phone: Start: 08-02-2024 Plain chest X-ray Dr. Preston Fletcher MD Work Phone: Start: 08-02-2024 CT of head without contrast Dr. Lilly Fletcher MD Work Phone: Start: 08-02-[address] Lilly Fletcher MD Work Phone: Start: 08-02-2024 Mean corpuscular hem oglobin concentration determination Dr. Lilly Fletcher MD Work Phone: Start: 08-02-2024 Nucleated red blood cell count procedure Dr. Lilly Fletcher MD Work Phone: Start: 08-02-2024 Platelet mean volume determination Dr. Lilly Fletcher MD Work Phone: Start: [...] Start: 09-24-2016 End: 10-28-2016 *BMP Kale Ansari [employer] Work Phone: Start: 09-24-2016 End: 09-24-2016 Follow Up BP Check Elie Davis MD Start: 08-26-2016 End: 09-08-2016 *BMP Kale Ansari [employer] Work Phone: Start: 08-26-2016 End: 08-27-2016 DOG DAYCARE PROVIDER Kale Ansari [employer] Work Phone: Start: 08-26-2016 End: 08-27-2016 Follow Up Appt 6 months Kale Ansari [employer] Work Phone: Start: 08-26-2016 End: 09-08-2016 Follow Up BP Check Kale Ansari [employer] Work Phone: Start: 11-27-2015 End: 11-27-2015 Follow Up Appt 6 months Willis Lara Start: 11-27-2015 End: 11-27-2015 MAE Davis MD Start: 11-22-2015 End: 11-29-2015 Lipid panel [AGGREGATE] Vivien lopez PA-C Work Phone: Start: 06-15-2015 End: 06-25-2015 *Hepatic Function Panel Vivien lopez PA-C Work Phone: Start: 06-15-2015 End: 06-25-2015 Lipid panel [AGGREGATE] Vivien lopez PA-C Work Phone: Start: 03-28-2015 End: 03-28-2015 DOG DAYCARE PROVIDER Vivien Haynes PA-C Work Phone: Start: 03-28-2015 [...] Elie Davis MD Start: 09-12-2014 End: 09-12-2014 MAE Davis MD Start: 05-24-2014 End: 05-29-2014 *Hepatic Function Panel Willis Lara Start: 05-24-2014 End: 05-29-2014 Lipid panel [AGGREGATE] Willis Lara Start: 03-01-2014 End: 03-01-2014 DOG DAYCARE PROVIDER Vivien Haynes PA-C Work Phone: Start: 03-01-2014 [...] [AGGREGATE] Willis Lara Start: 12-07-2012 End: 12-07-2012 DOG DAYCARE PROVIDER Vivien Haynes PA-C Work Phone: Start: 12-07-2012 [...] Treatment Date Care Activity Detail Author Start: 11-30-2024 Patient discharge [facility] Start: 11-26-2024 Assessment of risk of venous thromboembolism [facility] Start: 11-26-2024 Insertion of catheter into peripheral vein [facility] Start: 11-26-2024 Measuring intake and output [facility] Start: 11-26-2024 Oxygen therapy [facility] Start: 11-26-2024 Providing care according to standard [facility] Start: 11-26-2024 Provision of activity privileges [facility] Start: 11-26-2024 Referral for physical therapy [facility] Start: 11-26-2024 Referral to occupational therapist [facility] Start: 11-26-2024 Referral to service [facility] Start: 11-26-2024 [facility] Start: 11-26-2024 End: 11-26-2024 Following clinical pathway protocol [facility] Start: 11-26-2024 Admission procedure [facility] Start: 11-26-2024 Verification routine [facility] Start: 11-26-2024 [facility] Start: 10-26-2024 Patient discharge [facility] Start: 10-25-2024 [facility] Start: 10-25-2024 Assessment of risk of venous thromboembolism [facility] Start: 10-25-2024 Insertion of catheter into peripheral vein [facility] Start: 10-25-2024 Measuring intake and output [facility] Start: 10-25-2024 Notification of physician [facility] Start: 10-25-2024 Providing care according to standard [facility] Start: 10-25-2024 Provision of activity privileges [facility] Start: 10-25-2024 [facility] Start: 10-25-2024 Following clinical pathway protocol [facility] Start: 10-25-2024 Verification routine [facility] Start: 10-25-2024 Admission procedure [facility] Start: 10-25-2024 Hospital admission, emergency, from emergency room, medical nature [facility] Start: 10-25-2024 Bacteria identified in Urine by Culture Urine Culture [facility] Start: 10-25-2024 [facility] Start: 10-21-2024 [facility] Start: 10-21-2024 [facility] Start: 10-14-2024 End: 10-14-2024 Evaluation of diagnostic study results [facility] Start: 09-09-2024 [facility] Start: 09-09-2024 [facility] Start: 08-02-2024 [facility] Start: 08-02-2024 [facility] Start: 06-18-2024 End: 06-18-2024 [facility] Start: 10-12-2021 [facility] Work Phone: Start: 02-26-2017 End: 02-26-2017 Appointment Appointment [facility] Work Phone: Start: 11-11-2016 End: 11-11-2016 Appointment [facility] Work Phone: Start: 10-28-2016 End: 10-28-2016 Appointment Appointment [facility] Work Phone: Start: 10-28-2016 End: 10-28-2016 Follow Up BP Check Follow Up BP Check [facility] Work Phone: Start: 10-08-2016 End: 10-08-2016 Appointment [facility]ointment [facility] Work Phone: Start: 09-24-2016 End: 09-24-2016 Appointment Appointment [facility] Work Phone: Start: 09-24-2016 End: 10-28-2016 *BMP *BMP [facility] Work Phone: Start: 09-24-2016 End: 09-24-2016 Follow Up BP Check Follow Up BP Check [facility] Work Phone: Start: 09-22-2016 End: 09-22-2016 Appointment Appointment [facility] Work Phone: Start: 09-08-2016 End: 09-08-2016 Appointment Appointment [facility] Work Phone: Start: 09-05-2016 End: 09-05-2016 Appointment [facility]ointment [facility] Work Phone: Start: 08-27-2016 End: 08-27-2016 Appointment Appointment [facility] Work Phone: Start: 08-26-2016 End: 09-08-2016 *BMP *BMP [facility] Work Phone: Start: 08-26-2016 End: 08-27-2016 *Hepatic Function Panel *Hepatic Function Panel [facility] Work Phone: Start: 08-26-2016 End: 08-27-2016 DOG DAYCARE PROVIDER DOG DAYCARE PROVIDER [facility] Work Phone: Start: 08-26-2016 End: 08-27-2016 Follow Up Appt 6 months Follow Up Appt 6 months [facility] Work Phone: Start: 08-26-2016 End: 09-08-2016 Follow Up BP Check Follow Up BP Check [facility] Work Phone: Start: 08-26-2016 End: 08-27-2016 Lipid panel [AGGREGATE] *Lipid Profile CC PCP [facility] Work Phone: Start: 11-27-2015 End: 11-27-2015 Follow Up Appt 6 months Follow Up Appt 6 months [facility] Work Phone: Start: 11-27-2015 End: 11-27-2015 MMM MMM [facility] Work Phone: Start: 11-22-2015 End: 11-29-2015 Lipid panel [AGGREGATE] *Lipid Profile CC PCP [facility] Work Phone: Start: 06-15-2015 End: 06-25-2015 *Hepatic Function Panel *Hepatic Function Panel [facility] Work Phone: Start: 06-15-2015 End: 06-25-2015 Lipid panel [AGGREGATE] *Lipid Profile CC PCP [facility] Work Phone: Start: 03-28-2015 End: 03-28-2015 DOG DAYCARE PROVIDER DOG DAYCARE PROVIDER [facility] Work Phone: Start: 03-28-2015 End: 03-28-2015 Echocardiography Echocardiogram (complete) [facility] Work Phone: Start: 03-28-2015 End: 03-28-2015 Follow Up Appt 6 months Follow Up Appt 6 months [facility] Work Phone: Start: 11-29-2014 End: 12-14-2014 *Hepatic Function Panel *Hepatic Function Panel [facility] Work Phone: Start: 11-29-2014 End: 12-14-2014 Lipid panel [AGGREGATE] *Lipid Profile CC PCP [facility] Work Phone: Start: 09-12-2014 End: 09-12-2014 Follow Up Appt 6 months Follow Up Appt 6 months [facility] Work Phone: Start: 09-12-2014 End: 09-12-2014 MMM MMM [facility] Work Phone: Start: 05-24-2014 End: 05-29-2014 *Hepatic Function Panel *Hepatic Function Panel [facility] Work Phone: Start: 05-24-2014 End: 05-29-2014 Lipid panel [AGGREGATE] *Lipid Profile CC PCP [facility] Work Phone: Start: 03-01-2014 End: 03-01-2014 DOG DAYCARE PROVIDER DOG DAYCARE PROVIDER [facility] Work Phone: Start: 03-01-2014 End: 03-01-2014 Electrocardiogram, complete EKG (In office) [facility] Work Phone: Start: 03-01-2014 End: 03-01-2014 Follow Up Appt 6 months Follow Up Appt 6 months [facility] Work Phone: Start: 10-31-2013 End: 11-24-2013 *Hepatic Function Panel *Hepatic Function Panel [facility] Work Phone: Start: 10-31-2013 End: 11-24-2013 Lipid panel [AGGREGATE] *Lipid Profile CC PCP [facility] Work Phone: Start: 07-20-2013 End: 07-20-2013 Echocardiography Echocardiogram (complete) [facility] Work Phone: Start: 07-20-2013 End: 07-20-2013 Follow Up Appt 6 months Follow Up Appt 6 months [facility] Work Phone: Start: 07-20-2013 End: 07-20-2013 MMM MMM [facility] Work Phone: Start: 04-02-2013 End: 05-12-2013 *Hepatic Function Panel *Hepatic Function Panel [facility] Work Phone: Start: 04-02-2013 End: 05-12-2013 Lipid panel [AGGREGATE] *Lipid Profile CC PCP [facility] Work Phone: Start: 12-07-2012 End: 12-07-2012 DOG DAYCARE PROVIDER DOG DAYCARE PROVIDER [facility] Work Phone: Start: 12-07-2012 End: 12-07-2012 Follow Up Appt 6 months Follow Up Appt 6 months [facility] Work Phone: Start: 08-30-2012 End: 09-27-2012 *Hepatic Function Panel *Hepatic Function Panel [facility] Work Phone: Start: 08-30-2012 End: 09-27-2012 Lipid panel [AGGREGATE] *Lipid Profile [facility] Work Phone: Start: 06-04-2012 End: 06-04-2012 Follow Up Appt 6 months Follow Up Appt 6 months [facility] Work Phone: Start: 06-04-2012 End: 06-04-2012 MMM MMM [facility] Work Phone: Start: 03-03-2012 End: 03-24-2012 *Hepatic Function Panel *Hepatic Function Panel [facility] Work Phone: Start: 03-03-2012 End: 03-24-2012 Lipid panel [AGGREGATE] *Lipid Profile [facility] Work Phone: Start: 09-23-2011 End: 10-03-2011 *Hepatic Function Panel *Hepatic Function Panel [facility] Work Phone: Start: 09-23-2011 End: 10-03-2011 Lipid panel [AGGREGATE] *Lipid Profile [facility] Work Phone: Start: 08-13-2011 End: 08-13-2011 Follow Up Appt 6 months Follow Up Appt 6 months [facility] Work Phone: Cardiac event recording [facility] Patient Education [facility] Work Phone: Patient referral [facility] Work Phone: Troponin T.cardiac [Mass/volume] in Serum or Plasma by High sensitivity method [facility] Troponin T.cardiac [Mass/volume] in Serum or Plasma by High sensitivity method [facility] Urine culture [facility] US Carotid arteries [facility] US Heart [facility] Work Phone: [facility] Immunizations Immunization Date Immunization Notes Care Provider Sangeeta cat 11-27-2024 influenza, high dose seasonal, preservative-free Dr. Lilly Fletcher MD Work Phone: [facility] Payers Date Payer Category Payer Self-pay [id number] 2023 Medicare [id number] Medicare [id number] Private Health Insurance [id number] Unknown [id number] 2.16.8 [id number] Unknown [id number] 2.16.8 40.1.889370.3.579.2.462 Unknown [id number] 2.16.8 40.1.156951.3.579.2.462 Unknown [id number] 2.16.8 40.1.995710.3.579.2.462 Unknown [id number] 2.16.8 40.1.403862.3.579.2.462 Unknown [id number] 2.16.8 40.1.791575.3.579.2.462 Unknown [id number] 2.16.8 40.1.200752.3.579.2.462 Unknown [id number] 2.16.8 40.1.151814.3.579.2.462 Unknown [id number] 2.16.8 40.1.856149.3.579.2.462 Unknown [id number] 2.16.8 40.1.475685.3.579.2.462 Unknown [id number] 2.16.8 40.1.935812.3.579.2.462 Unknown [id number] 2.16.8 40.1.579531.3.579.2.462 Unknown [id number] 2.16.8 40.1.697697.3.579.2.462 Unknown [id number] 2.16.8 40.1.566846.3.579.2.462 Unknown [id number] 2.16.8 40.1.266281.3.579.2.462 Unknown [id number] 2.16.8 40.1.266545.3.579.2.462 Unknown [id number] 2.16.8 40.1.699714.3.579.2.462 Unknown [id number] 2.16.8 40.1.067129.3.579.2.462 Unknown [id number] 2.16.8 40.1.958924.3.579.2.462 Unknown [id number] 2.16.8 40.1.834297.3.579.2.462 Unknown [id number] 2.16.8 40.1.070336.3.579.2.462 Unknown [id number] 2.16.8 40.1.342073.3.579.2.462 Unknown [id number] 2.16.8 40.1.891033.3.579.2.462 Unknown [id number] 2.16.8 40.1.051811.3.579.2.462 Unknown [id number] 2.16.8 40.1.847633.3.579.2.462 Social History Date Type Detail Facility Start: 04-18-2021 End: 03-25-2023 Tobacco smoking status KYIS Unknown if ever smoked [facility] Start: 07-11-2020 None [facility] Start: 10-25-2015 With Family [facility] Start: 07-11-2020 Non-smoker [facility] Start: 1945 Sex Assigned At Female W [facility] Start: 06-18-2024 End: 11-26-2024 Tobacco smoking status NHIS Never smoked tobacco (finding) [facility] Start: 06-18-2024 Sex Female (finding) [facility] Sex [facility] Goals Date Patient Goal Desired Activity /State Functional Status Date Assessment Result Facility 11-30-2024 Functional status Bedside [facility] Work Phone: 10-26-2024 Functional status Ambulates [facility] Work Phone: 10-26-2024 Functional status Well [facility] Work Phone: Mental Status Date Assessment Result Facility 11-30-2024 Cognitive function Voice/Name [facility] Work Phone: 11-30-2024 Cognitive function Voice/Name [facility] Work Phone: 10-26-2024 Cognitive function Voice/Name [facility] Work Phone: 10-25-2024 Cognitive function Awake;Alert;A ppropriate;Fol lows Commands [facility] Work Phone: 10-21-2024 Cognitive function Voice/Name [facility] Work Phone: 09-09-2024 Cognitive function Voice/Name [facility] Work Phone: 08-02-2024 Cognitive function Awake;Alert;A ppropriate;Fol lows Commands [facility] Work Phone: 10-12-2021 Cognitive function Voice/Name [facility] Work Phone: Clinical Notes 06-18-2024 to 11-30-2024 Note Date & Type Note Facility 11-30-2024 Consult note Note Date/Time November 30, 2024 3:10pm [facility] Medical Records Department [address] [place] [address] Counseling Note - Pharmacy 11/30/24 1510 MR#: [id number] Acct: [id number] Name: AYAN CARRILLO Rep #:[id number] : 1945 79 From: Ladonna Duval PCP: Dr. Brayan Thompson MD Status :ADM HERSON Y Location: NM3 [id number] Pharmacy [place] Med Reconciliation Pharmacy Service has performed discharge medication reconciliation for this patient. The patient's discharge medication list was reviewed for discrepancies and discrepancies were resolved. Medications at Discharge Home Medications nitroglycerin 0.4 mg sublingual tablet 0.4 mg sublingual Q5M PRN Chest Pain #25 tabs 08/10/23 atorvastatin 40 mg tablet 40 mg PO QHS #90 tabs 08/01/24 omeprazole 20 mg capsule,delayed release 20 mg PO DAILY #90 caps 08/01/24 lisinopril 20 mg tablet 20 mg PO QHS #90 tabs 08/15/24 Held on 11/30/24. Instructions: Hold because of dizziness and hypotension apixaban 5 mg tablet (Eliquis) 5 mg PO BID #60 tabs 09/29/24 diltiazem HCl 120 mg capsule,24 hr,extended release (Tiadylt ER) 120 mg PO QAM #30 caps 10/14/24 levothyroxine 75 mcg tablet 75 mcg PO DAILY 10/25/24 potassium gluconate 595 mg (99 mg) tablet 595 mg PO DAILY 10/25/24 carvedilol 25 mg tablet 12.5 mg PO BID 11/26/24 Held on 11/30/24. Instructions: Hold because of dizziness and hypotension. acetaminophen 325 mg tablet 650 mg (2 x 325 mg) PO Q6H PRN PRN Pain 1-5/10 or Fever #0 tabs 11/30/24 aspirin 81 mg chewable tablet 81 mg PO QHS 30 days #30 tabs 11/30/24 meclizine 25 mg tablet (Travel-Ease (meclizine)) 25 mg PO 4X/DAY PRN PRN DIZZINESS/VERTIGO #0 tabs 11/30/24 midodrine 5 mg tablet 10 mg (2 x 5 mg) PO TIDCM #0 tabs 11/30/24 11/30/24 1510 <Electronically signed by Ladonna Duval> Date _ Ladonna Burnett Signature (if applicable): Date CC: ~ Signed [facility] Work Phone: 1(417) 319-363210-01-2025 Discharge summary Author Paul Lauren [facility] Note Date/Time November 30, 2024 2: 44pm [facility] Medical Records Department [address] [place] [address] Discharge Summary 11/30/24 1440 MR#: [id number] Acct: [id number] Name: AYAN CARRILLO Rep #:[id number] : 1945 79 From: Paul Ngo PCP: Dr. Brayan Thompson MD Status :ADM HERSON Location: [place] [address] Providers Date of Admission: 11/26/24 Date of Discharge: 11/30/24 Primary Care Physician: Dr. Brayan Thompson MD Reason For Visit: FALL WITH GENERALIZED WEAKNESS AND HEAD INJURY Diagnosis Discharge Diagnosis (1) Frequent falls: Status: Acute Code(s): R29.6 - Repeated falls (2) Generalized weakness: Status: Acute Code(s): R53.1 - Weakness (3) Ambulatory dysfunction: Status: Acute Code(s): R26.2 - Difficulty in walking, not elsewhere classified (4) Closed head injury without concussion: Status: Acute Code(s): S09.90XA - Unspecified injury of head, initial encounter Qualifiers: Encounter type: initial encounter Qualified Code(s): S09.90XA - Unspecified injury of head, initial encounter (5) Paroxysmal atrial fibrillation: Status: Acute Code(s): I48.0 - Paroxysmal atrial fibrillation (6) Morbid obesity with BMI of 40.0-44.9, adult: Status: Acute Code(s): E66.01 - Morbid (severe) obesity due to excess calories; Z68.41 - Body mass index [BMI] 40.0-44.9, adult Plan 79-year-old female was admitted with increased weakness and multiple falls last week including on the day of admission. She felt her legs were weak, fell to the ground and hit her head on the cabinet. Denies LOC. On Eliquis. Chronic swelling of the legs at baseline with no recent worsening. 1. Frequent Falls with Generalized Weakness, Ambulatory Dysfunction and Closed Head Injury and low BP- Admit to general medical floor. Pain control with acetaminophen and low-dose oxycodone. Was evaluated by PT and felt mildly dizzy and short of breath and mild hypoxia. Chest x-ray daily reviewed and no acute cardiopulmonary process. Patient does not have acute respiratory symptoms of cough or sputum or symptoms of pneumonia. Incentive spirometry 11/28: Low BP/intermittent hypotension: Patient was given IV albumin with Lasix last night. BP 110/79. Started on midodrine. Orthostatic BP ordered for tomorrow AM. Continue PT and OT with caution. 11/29:On 11/26 heart rate does not show significant change from lying to standing but blood pressure dropped from 144/80 to 122/46 about 20 m dropping systolic. 11/30: Discharged on midodrine 10 mg p.o. 3 times daily. Carvedilol on hold. Patient could not tolerate Lasix therefore advised Usama wrap bandage. Advised follow-up in cardiology office, Kale Ansari for dizziness and orthostatic hypotension. Might be benefited by tilt table test New mild hypoxia: Etiology unclear possible related to atelectasis/sleep apnea. Patient denies chronic lung disease or smoking or sleep apnea. CPAP ordered 11/28: Chest x-ray shows left lung base atelectasis. Hypoventilation. 11/30: Discharged on oxygen.: As an outpatient will need PFT/sleep study. Continue incentive spirometry and PEP for 1 week 2. PAF; on Cardizem CD and apixaban BID: On carvedilol and Eliquis 5 mg twice daily. 11/29: Patient also on carvedilol 12.5 mg twice daily decreased to 6.25 mg twice daily with holding parameters. 11/30: Hold carvedilol because of dizziness and low BP. On midodrine. 3. Morbid (class III) obesity; with BMI 41.3 KG per square meter on admission- Weight loss recommended. 4. Essential hypertension; on carvedilol twice daily - Maintain carvedilol as previous. 5. Hyperlipidemia; on atorvastatin - continue atorvastatin. Check CPK 6. Mild hyperthyroidism with history of acquired hypothyroidism; on levothyroxine - TSH very low, less than 0.005. Free T4: 2.10. Hold levothyroxine 3 days and decrease dose to 50 mcg daily. Recommend TSH and free T4 after 6 weeks. 7. CAD; s/p LA -on baby aspirin. If anemia will be issue, baby aspirin can be discontinued as patient already on Eliquis. 8. GERD; on omeprazole - Maintain PPI. 9. OA -PT and OT. 10. DVT prophylaxis - Patient already on apixaban for #2 which will be reluctantly continued for now. Discharge medication reconciliation done. Discharge follow-up instructions completed. Discharge process discussed with the patient and all questions were answered to patient's satisfaction. Follow with PCP in 1 to 2 weeks Total time spent, exact 35 minutes on discharge meds reconciliation, examination, coordination of care with nurses and ancillary staff, review of imaging and blood test and discussion with the patient on follow-up instructions. Microbiology Past 72 Hours 11/26/24 16:45 Mucosa - Nose SARS-CoV-2, Influenza & RSV (PCR) - Final 11/26/24 18:40: Troponin T Hi Sens 2 Hr 27 H 11/26/24 20:25: Magnesium 2.1, Troponin T Hi Sens 4Hr 29 H, Vitamin B12 439, TSH < 0.005 L 11/26/24 20:50: Serum Folate 25.60, Ethyl Alcohol < 10.1 11/27/24 03:48: WBC 7.2, RBC 4.34, Hgb 12.6, Hct 40.1, MCV 92.4, MCH 29.0, MCHC 31.4 L, RDW Std Deviation 44.5 H, RDW Coeff of Cory 13.2, Plt Count 221, MPV 9.7, Immature Gran % (Auto) 0.400, Neut % (Auto) 70.8 H, Lymph % (Auto) 14.1 L, Starke % (Auto) 13.4 H, Eos % (Auto) 1.0, Baso % (Auto) 0.3, Absolute Neuts (auto) 5.1, Absolute Lymphs (auto) 1.02, Nucleated RBC % 0, Sodium 139, Potassium 4.0, Chloride 105, Carbon Dioxide 25.3, Anion Gap 9, BUN 15, Creatinine 0.49 L, Estim Creat Clear Calc 56.35, Est GFR (MDRD) Non-Af 95, BUN/Creatinine Ratio 30.0 H, Glucose 111 H, Calcium 9.9, Phosphorus 3.9, Total Bilirubin 0.61, AST 16, ALT 13, Alkaline Phosphatase 90, Total Protein 5.5 L, Albumin 3.1 L, Globulin 2.4, Albumin/Globulin Ratio 1.3, Triglycerides 84, Cholesterol 90, LDL Cholesterol, Calc 35, VLDL Cholesterol 17, HDL Cholesterol 38 L, Cholesterol/HDL Ratio 2.37, Free T4 2.10 H Clinical Impression(s) from Imaging Studies Brain CT 11/26/24 16:28 IMPRESSION: No acute traumatic findings. Chronic/degenerative changes as described above. Reading Location: [facility] Cervical Spine CT 11/26/24 17:01 IMPRESSION: No acute traumatic findings. Chronic/degenerative changes as described above. Reading Location: [facility] Chest X-Ray 11/26/24 17:10 IMPRESSION: No radiographic evidence of an acute cardiopulmonary process Reading Location: [id number] Medications at Discharge Home Medications nitroglycerin 0.4 mg sublingual tablet 0.4 mg sublingual Q5M PRN Chest Pain #25 tabs 08/10/23 atorvastatin 40 mg tablet 40 mg PO QHS #90 tabs 08/01/24 omeprazole 20 mg capsule,delayed release 20 mg PO DAILY #90 caps 08/01/24 lisinopril 20 mg tablet 20 mg PO QHS #90 tabs 08/15/24 Held on 11/30/24. Instructions: Hold because of dizziness and hypotension apixaban 5 mg tablet (Eliquis) 5 mg PO BID #60 tabs 09/29/24 diltiazem HCl 120 mg capsule,24 hr,extended release (Tiadylt ER) 120 mg PO QAM #30 caps 10/14/24 levothyroxine 75 mcg tablet 75 mcg PO DAILY 10/25/24 potassium gluconate 595 mg (99 mg) tablet 595 mg PO DAILY 10/25/24 carvedilol 25 mg tablet 12.5 mg PO BID 11/26/24 Held on 11/30/24. Instructions: Hold because of dizziness and hypotension. acetaminophen 325 mg tablet 650 mg (2 x 325 mg) PO Q6H PRN PRN Pain 1-5/10 or Fever #0 tabs 11/30/24 aspirin 81 mg chewable tablet 81 mg PO QHS 30 days #30 tabs 11/30/24 meclizine 25 mg tablet (Travel-Ease (meclizine)) 25 mg PO 4X/DAY PRN PRN DIZZINESS/VERTIGO #0 tabs 11/30/24 midodrine 5 mg tablet 10 mg (2 x 5 mg) PO TIDCM #0 tabs 11/30/24 Physical Exam Narrative Seen and examined. Patient is still complain of mild dizziness but no vertigo. On Antivert. Continue midodrine Denies chronic lung disease including asthma COPD/interstitial lung disease. Does not use oxygen at home. No CPAP. No history of smoking. Denies chronic heart disease. No chest pain Bilateral leg swelling Physical exam General: Alert, Oriented x3, Cooperative. Morbid obesity BMI 40.4 kg/m?. Fatigue HEENT: Atraumatic, PERRLA, EOMI, Normocephalic. Oral: No Gingival or Mucosal Lesions/ Ulcerations Neck: Supple, No JVD, Negative Carotid Bruits Chest wall/Lungs: Air entry diminished in bilateral lung bases. No crepitation/rhonchi Cardiovascular: Regular rate and rhythm, Normal S1,S2, No M/G/R Abdomen: Bowel Sounds Present, Soft, Non Tender, Non-Distended : No dysuria. No renal angle tenderness. No suprapubic tenderness. Extremities: 1+ pedal edema below knee, Capillary Refill Less than 3 Seconds. Skin: No rashes, No breakdown Musculoskeletal: Mild tenderness on palpation over pitting edema. Degenerative arthritic deformities of her knees and ankles. ROM restricted over knees. Neurological: Cranial nerves II-XII grossly intact, DTR 2+/4. No acute focal neurological deficit. Psych/Mental Status: Flat affect Weight / BMI Weight Weight: 207 lb 7.28 oz Body Mass Index (BMI) 41.8 ABG / Lab / Microbiology Data 11/28/24 05:34 11/28/24 05:34 Microbiology: Microbiology 11/26/24 16:45 Mucosa - Nose SARS-CoV-2, Influenza & RSV (PCR) - Final D/C Instructions DC O2, CPAP, BIPAP Needs Home O2 Discharge instructions: Yes Type of respiratory needs?: Oxygen Oxygen frequency: Continuous Continuous oxygen liters per minute: 2 DC home with Oxygen: Yes Home O2 MD Review: I have reviewed the oxygen testing, and the patient qualifies for home oxygen equipment and portability. The patient is mobile in the home and the community. Meaningful Use Info Meaningful Use Meaningful Use Diagnoses (Choose all that apply): None applicable Discharge Plan Admission Admit Date/Time: 11/26/24 20:27 Attending Provider: Paul Lauren Primary Care Provider: Brayan Thompson Consulting Providers: Reynaldo Oliva Instructions Additional Instructions / Restrictions: Bilateral Usama wrap bandage in lower extremities. Patient could not tolerate Lasix because of hypotension and dizziness. Discharge Orders/Prescriptions Prescriptions: New acetaminophen 325 mg Tablet 650 mg PO Q6H PRN PRN (Reason: Pain 1-5/10 or Fever) Qty: 0 0RF midodrine 5 mg Tablet 10 mg PO TIDCM Qty: 0 0RF Rx Instructions: Hold if SBP more than 100 mmHg meclizine [Travel-Ease (meclizine)] 25 mg Tablet 25 mg PO 4X/DAY PRN PRN (Reason: DIZZINESS/VERTIGO) Qty: 0 0RF Continued nitroglycerin 0.4 mg tablet, sublingual 0.4 mg SUBLINGUAL Q5M PRN (Reason: Chest Pain) Qty: 25 2RF Patient Comments: chest pain levothyroxine 75 mcg tablet 75 mcg PO DAILY potassium gluconate 595 mg (99 mg) tablet 595 mg PO DAILY aspirin 81 MG tablet,chewable 81 mg PO QHS 30 Days Qty: 30 0RF Patient Comments: [facility] Rx Instructions: Discontinue if hemoglobin drops less than 10 g as patient already on Eliquis. atorvastatin 40 mg tablet 40 mg PO QHS Qty: 90 3RF omeprazole 20 mg capsule,delayed release(DR/EC) 20 mg PO DAILY Qty: 90 3RF Eliquis 5 mg tablet 5 mg PO BID Qty: 60 11RF diltiazem HCl [Tiadylt ER] 120 mg capsule,extended release 24 hr 120 mg PO QAM Qty: 30 3RF Held lisinopril 20 mg tablet 20 mg PO QHS Qty: 90 4RF Hold Instructions: Hold because of dizziness and hypotension carvedilol 25 mg tablet 12.5 mg PO BID Hold Instructions: Hold because of dizziness and hypotension. Patient Comments: PER PT CHANGED ON THURSDAY PER DR ANSAIR TO 12.5 MG BID Referrals / Follow Up: Brayan Thompson MD [Primary Care Provider, [facility]] Kale Ansari CROWD CONTROLLER, CROWD CONTROLLER-C [Med Staff - [facility] Prof, Cardiology] - Within 2 Weeks Referral Note: Hypotension, orthostatic hypotension. Dizziness Disposition Disposition (needs filled in before D/C Order can be placed): [facility] Facility Charges/Coding Addendum Addendum: I have reviewed the oxygen testing, and this patient qualifies for the home equipment and portability. The patient is mobile in the home and the community. Visit Charges Inpatient E&M: 23487 Disch Hosp >30min 11/30/24 1444 <Electronically signed by Paul Lauren MD> Cosigner Signature (if applicable): CC: CROWD CONTROLLER-C Kale Ansari; Dr. Brayan Thompson MD; Dr. Paul Lauren MD~ Signed [facility] Work Phone: 1(448) 425-203710-01-2025 Discharge summary Author Paul Lauren [facility] Note Date/Time November 30, 2024 2: 40pm [facility] Medical Records Department [address] [place] [address] Transfer to [facility] MR#: [id number] Acct: [id number] Name: AYAN CARRILLO Rep #:[id number] : 1945 79 From: Paul Ngo PCP: Dr. Brayan Thompson MD Status :ADM HERSON Certification of patient admission REQUIRED AT TIME OF ADMISSION. I CERTIFY THAT POST-HOSPITAL ECF SERVICES ARE REQUIRED TO BE GIVEN ON AN IN-PATIENT BASIS BECAUSE OF THE ABOVE NAMED PATIENT'S NEED FOR HALF-WAY CARE ON A CONTINUING BASIS FOR THE CONDITION(S) FOR WHICH HE/SHE WAS RECEIVING IN-PATIENT HOSPITAL SERVICES PRIOR TO HIS/HER TRANSFER TO THE F. 11/30/24 1440<Electronically signed by Paul Lauren MD> Diet Diet Order/Speech Therapy: INPATIENT Hospital Diet / Speech Therapy Order(s) 11/26/24 22:01 Diet: Cardiac - Heart Healthy Food consistency:: Regular Liquid Consistency:: Regular/Thin Routine Orders/Code Status Suppository Type: Dulcolax 10mg Suppository Frequency: Daily PRN DC O2, CPAP, BIPAP needs Home O2 Discharge instructions: Yes Type of respiratory needs?: Oxygen Oxygen frequency: Continuous Continuous oxygen liters per minute: 2 Therapies Extremity Affected:: Bilateral Lower Physical Therapy: Eval and Treat Occupational Therapy: Eval and Treat Speech Therapy: Eval and Treat Problem/Diagnosis (1) Frequent falls: Status: Acute Code(s): R29.6 - Repeated falls (2) Generalized weakness: Status: Acute Code(s): R53.1 - Weakness (3) Ambulatory dysfunction: Status: Acute Code(s): R26.2 - Difficulty in walking, not elsewhere classified (4) Closed head injury without concussion: Status: Acute Code(s): S09.90XA - Unspecified injury of head, initial encounter (5) Paroxysmal atrial fibrillation: Status: Acute Code(s): I48.0 - Paroxysmal atrial fibrillation Comment: Event monitor August 2024; (6) Morbid obesity with BMI of 40.0-44.9, adult: Status: Acute Code(s): E66.01 - Morbid (severe) obesity due to excess calories; Z68.41 - Body mass index [BMI] 40.0-44.9, adult Plan 79-year-old female was admitted with increased weakness and multiple falls last week including on the day of admission. She felt her legs were weak, fell to the ground and hit her head on the cabinet. Denies LOC. On Eliquis. Chronic swelling of the legs at baseline with no recent worsening. 1. Frequent Falls with Generalized Weakness, Ambulatory Dysfunction and Closed Head Injury and low BP- Admit to general medical floor. Pain control with acetaminophen and low-dose oxycodone. Was evaluated by PT and felt mildly dizzy and short of breath and mild hypoxia. Chest x-ray daily reviewed and no acute cardiopulmonary process. Patient does not have acute respiratory symptoms of cough or sputum or symptoms of pneumonia. Incentive spirometry 11/28: Low BP/intermittent hypotension: Patient was given IV albumin with Lasix last night. BP 110/79. Started on midodrine. Orthostatic BP ordered for tomorrow AM. Continue PT and OT with caution. 11/29: Orthostatic blood pressure ordered. On 11/26 heart rate does not show significant change from lying to standing but blood pressure dropped from 144/80 to 122/46 about 20 m dropping systolic. New mild hypoxia: Etiology unclear possible related to atelectasis/sleep apnea. Patient denies chronic lung disease or smoking or sleep apnea. CPAP ordered 11/28: Chest x-ray shows left lung base atelectasis. Hypoventilation. 2. PAF; on Cardizem CD and apixaban BID: On carvedilol and Eliquis 5 mg twice daily. 11/29: Patient also on carvedilol 12.5 mg twice daily decreased to 6.25 mg twice daily with holding parameters. 3. Morbid (class III) obesity; with BMI 41.3 KG per square meter on admission- Weight loss recommended. 4. Essential hypertension; on carvedilol twice daily - Maintain carvedilol as previous. 5. Hyperlipidemia; on atorvastatin - continue atorvastatin. Check CPK 6. Mild hyperthyroidism with history of acquired hypothyroidism; on levothyroxine - TSH very low, less than 0.005. Free T4: 2.10. Hold levothyroxine 3 days and decrease dose to 50 mcg daily. Recommend TSH and free T4 after 6 weeks. 7. CAD; s/p LA -on baby aspirin. If anemia will be issue, baby aspirin can be discontinued as patient already on Eliquis. 8. GERD; on omeprazole - Maintain PPI. 9. OA -PT and OT. 10. DVT prophylaxis - Patient already on apixaban for #2 which will be reluctantly continued for now. Microbiology Past 72 Hours 11/26/24 16:45 Mucosa - Nose SARS-CoV-2, Influenza & RSV (PCR) - Final 11/26/24 18:40: Troponin T Hi Sens 2 Hr 27 H 11/26/24 20:25: Magnesium 2.1, Troponin T Hi Sens 4Hr 29 H, Vitamin B12 439, TSH < 0.005 L 11/26/24 20:50: Serum Folate 25.60, Ethyl Alcohol < 10.1 11/27/24 03:48: WBC 7.2, RBC 4.34, Hgb 12.6, Hct 40.1, MCV 92.4, MCH 29.0, MCHC 31.4 L, RDW Std Deviation 44.5 H, RDW Coeff of Cory 13.2, Plt Count 221, MPV 9.7, Immature Gran % (Auto) 0.400, Neut % (Auto) 70.8 H, Lymph % (Auto) 14.1 L, Starke % (Auto) 13.4 H, Eos % (Auto) 1.0, Baso % (Auto) 0.3, Absolute Neuts (auto) 5.1, Absolute Lymphs (auto) 1.02, Nucleated RBC % 0, Sodium 139, Potassium 4.0, Chloride 105, Carbon Dioxide 25.3, Anion Gap 9, BUN 15, Creatinine 0.49 L, Estim Creat Clear Calc 56.35, Est GFR (MDRD) Non-Af 95, BUN/Creatinine Ratio 30.0 H, Glucose 111 H, Calcium 9.9, Phosphorus 3.9, Total Bilirubin 0.61, AST 16, ALT 13, Alkaline Phosphatase 90, Total Protein 5.5 L, Albumin 3.1 L, Globulin 2.4, Albumin/Globulin Ratio 1.3, Triglycerides 84, Cholesterol 90, LDL Cholesterol, Calc 35, VLDL Cholesterol 17, HDL Cholesterol 38 L, Cholesterol/HDL Ratio 2.37, Free T4 2.10 H Clinical Impression(s) from Imaging Studies Brain CT 11/26/24 16:28 IMPRESSION: No acute traumatic findings. Chronic/degenerative changes as described above. Reading Location: [facility] Cervical Spine CT 11/26/24 17:01 IMPRESSION: No acute traumatic findings. Chronic/degenerative changes as described above. Reading Location: [facility] Chest X-Ray 11/26/24 17:10 IMPRESSION: No radiographic evidence of an acute cardiopulmonary process Reading Location: [id number] Allergies/Procedures Done in Hospital Allergies hydrochlorothiazide Adverse Reaction (Intermediate, Verified 11/26/24 15:58) Constipation and urinary incontinence Type of Care/Length of Stay Estimated LOS: Convalescent Care Less Than 30 days Type of Care Needed: Skilled Rehab Potential: Good Prognosis: Good Additional Orders/Day of Discharge Day of Discharge: 11/30/24 Dietary and Speech Recommendations Dietitian Recommendations/Changes: Will continue liberalized regular diet with consistency/texture as per INVOICE CHECKER. Will continue 120mL ensure plus HP 4 times per day w/ medpass. Monitor blood glucose level and restrict dietary carbohydrate as needed. Trend weights closely and adjust ONS as needed to optimize nutrition and prevent energy/pro depletion. Discharge Plan Admission Admit Date/Time: 11/26/24 20:27 Attending Provider: Paul Lauren Primary Care Provider: Brayan Thompson Consulting Providers: Reynaldo Oliva Instructions Additional Instructions / Restrictions: Bilateral Usama wrap bandage in lower extremities. Patient could not tolerate Lasix because of hypotension and dizziness. Discharge Orders/Prescriptions Prescriptions: New acetaminophen 325 mg Tablet 650 mg PO Q6H PRN PRN (Reason: Pain 1-07/09 or Fever) Qty: 0 0RF midodrine 5 mg Tablet 10 mg PO TIDCM Qty: 0 0RF Rx Instructions: Hold if SBP more than 100 mmHg meclizine [Travel-Ease (meclizine)] 25 mg Tablet 25 mg PO 4X/DAY PRN PRN (Reason: DIZZINESS/VERTIGO) Qty: 0 0RF Continued nitroglycerin 0.4 mg tablet, sublingual 0.4 mg SUBLINGUAL Q5M PRN (Reason: Chest Pain) Qty: 25 2RF Patient Comments: chest pain levothyroxine 75 mcg tablet 75 mcg PO DAILY potassium gluconate 595 mg (99 mg) tablet 595 mg PO DAILY aspirin 81 MG tablet,chewable 81 mg PO QHS 30 Days Qty: 30 0RF Patient Comments: [facility] Rx Instructions: Discontinue if hemoglobin drops less than 10 g as patient already on Eliquis. atorvastatin 40 mg tablet 40 mg PO QHS Qty: 90 3RF omeprazole 20 mg capsule,delayed release(DR/EC) 20 mg PO DAILY Qty: 90 3RF Eliquis 5 mg tablet 5 mg PO BID Qty: 60 11RF diltiazem HCl [Tiadylt ER] 120 mg capsule,extended release 24 hr 120 mg PO QAM Qty: 30 3RF Held lisinopril 20 mg tablet 20 mg PO QHS Qty: 90 4RF Hold Instructions: Hold because of dizziness and hypotension carvedilol 25 mg tablet 12.5 mg PO BID Hold Instructions: Hold because of dizziness and hypotension. Patient Comments: PER PT CHANGED ON THURSDAY PER DR ANSARI TO 12.5 MG BID Referrals / Follow Up: Brayan hTompson MD [Primary Care Provider, [facility]] Kale Ansari CROWD CONTROLLER, CROWD CONTROLLER-C [Med Staff - [facility] Prof, Cardiology] - Within 2 Weeks Referral Note: Hypotension, orthostatic hypotension. Dizziness Disposition Disposition (needs filled in before D/C Order can be placed): [facility] (4) Closed head injury without concussion Qualifiers: Encounter type: initial encounter Qualified Code(s): S09.90XA - Unspecified injury of head, initial encounter 11/30/24 1440 <Electronically signed by Paul Lauren MD> Cosigner Signature (if applicable): CC: Dr. Brayan Thompson MD; Dr. Reynaldo Oliva, DO ~ [facility] Work Phone: 1(561) 670-758610-01-2025 [facility]10-01-2025 Hospital Discharge instructionsAdditional Instructions Bilateral Usama wrap bandage in lower extremities. Patient could not tolerate Lasix because of hypotension and dizziness. Date of Discharge: 11/30/24[facility] Work Phone: 1(679) 306-149809-30-2025 Progress note Author [facility] Note Date/Time November 29, 2024 4:53pm [facility] Medical Records Department [address] [place] [address] Progress Note - Hospitalist 11/29/24 1641 MR#: [id number] Acct: [id number] Name: AYAN CARRILLO Rep #:[id number] : 1945 79 From: Paul Ngo PCP: Dr. Brayan Thompson MD Status :ADM HERSON Location: [place] [address] Reason for Visit Chief Complaint: Generalized Weakness, Fall and Head Injury. Objective Data Objective Data Vital Signs: Vital Signs Temp Pulse Resp BP Pulse Ox O2 Del Method O2 Flow Rate 97.5 F L 75 18 109/55 L 96 Nasal Cannula 2 11/29/24 11:18 11/29/24 11:18 11/29/24 11:18 11/29/24 11:18 11/29/24 14:00 11/29/24 14:54 11/29/24 14:54 Oxygen Flow Rate (L/min) 2 Oxygen Delivery Method Nasal Cannula Weight: 205 lb 7.533 oz Body Mass Index (BMI) 41.4 Intake & Output: Intake and Output for Last 24 Hours 11/27/24 11/28/24 11/29/24 23:59 23:59 23:59 Intake Total 1653.17 / 1653.17 1190 / 1190 800 / 800 Output Total 475 / 475 750 / 750 Balance 1178.17 / 1178.17 440 / 440 800 / 800 Lab / Micro Data 11/28/24 05:34 11/28/24 05:34 Micro: Microbiology 11/26/24 16:45 Mucosa - Nose SARS-CoV-2, Influenza & RSV (PCR) - Final Rhythm Strip Rhythm Strip: Sinus Rhythm Rate: 70 Ectopy: None Physical Exam Narrative Seen and examined. Patient was dizzy and lightheaded even sometimes in the bed, but more on changing the position. Denies chronic lung disease including asthma COPD/interstitial lung disease. Does not use oxygen at home. No CPAP. No history of smoking. Denies chronic heart disease. No chest pain Bilateral leg swelling Physical exam General: Alert, Oriented x3, Cooperative. Morbid obesity BMI 40.4 kg/m?. Fatigue HEENT: Atraumatic, PERRLA, EOMI, Normocephalic. Oral: No Gingival or Mucosal Lesions/ Ulcerations Neck: Supple, No JVD, Negative Carotid Bruits Chest wall/Lungs: Air entry diminished in bilateral lung bases. No crepitation/rhonchi Cardiovascular: Regular rate and rhythm, Normal S1,S2, No M/G/R Abdomen: Bowel Sounds Present, Soft, Non Tender, Non-Distended : No dysuria. No renal angle tenderness. No suprapubic tenderness. Extremities: 1+ pedal edema below knee, Capillary Refill Less than 3 Seconds Skin: No rashes, No breakdown Musculoskeletal: Mild tenderness on palpation over pitting edema. Degenerative arthritic deformities of her knees and ankles. ROM restricted over knees. Neurological: Cranial nerves II-XII grossly intact, DTR 2+/4. No acute focal neurological deficit. Psych/Mental Status: Flat affect Assessment & Plan Assessment/Plan (1) Frequent falls: (2) Generalized weakness: (3) Ambulatory dysfunction: (4) Closed head injury without concussion: QUALIFIERS: Encounter type: initial encounter Qualified Code(s): S09.90XA - Unspecified injury of head, initial encounter (5) Paroxysmal atrial fibrillation: (6) Morbid obesity with BMI of 40.0-44.9, adult: PLAN: Plan 79-year-old female was admitted with increased weakness and multiple falls last week including on the day of admission. She felt her legs were weak, fell to the ground and hit her head on the cabinet. Denies LOC. On Eliquis. Chronic swelling of the legs at baseline with no recent worsening. 1. Frequent Falls with Generalized Weakness, Ambulatory Dysfunction and Closed Head Injury and low BP- Admit to general medical floor. Pain control with acetaminophen and low-dose oxycodone. Was evaluated by PT and felt mildly dizzyand short of breath and mild hypoxia. Chest x-ray daily reviewed and no acute cardiopulmonary process. Patient does not have acute respiratory symptoms of cough or sputum or symptoms of pneumonia. Incentive spirometry 11/28: Low BP/intermittent hypotension: Patient was given IV albumin with Lasix last night. BP 110/79. Started on midodrine. Orthostatic BP ordered for tomorrow AM. Continue PT and OT with caution. 11/29: Orthostatic blood pressure ordered. On 11/26 heart rate does not show significant change from lying to standing but blood pressure dropped from 144/80to 122/46 about 20 m dropping systolic. New mild hypoxia: Etiology unclear possible related to atelectasis/sleep apnea. Patient denies chronic lung disease or smoking or sleep apnea. CPAP ordered 11/28: Chest x-ray shows left lung base atelectasis. Hypoventilation. 2. PAF; on Cardizem CD and apixaban BID: On carvedilol and Eliquis 5 mg twice daily. 11/29: Patient also on carvedilol 12.5 mg twice daily decreased to 6.25 mg twice daily with holding parameters. 3. Morbid (class III) obesity; with BMI 41.3 KG per square meter on admission- Weight loss recommended. 4. Essential hypertension; on carvedilol twice daily - Maintain carvedilol as previous. 5. Hyperlipidemia; on atorvastatin - continue atorvastatin. Check CPK 6. Mild hyperthyroidism with history of acquired hypothyroidism; on levothyroxine - TSH very low, less than 0.005. Free T4: 2.10. Hold levothyroxine 3 days and decrease dose to 50 mcg daily. Recommend TSH and free T4 after 6 weeks. 7. CAD; s/p LA -on baby aspirin. If anemia will be issue, baby aspirin can be discontinued as patient already on Eliquis. 8. GERD; on omeprazole - Maintain PPI. 9. OA -PT and OT. 10. DVT prophylaxis - Patient already on apixaban for #2 which will be reluctantly continued for now. Microbiology Past 72 Hours 11/26/24 16:45 Mucosa - Nose SARS-CoV-2, Influenza & RSV (PCR) - Final 11/26/24 18:40: Troponin T Hi Sens 2 Hr 27 H 11/26/24 20:25: Magnesium 2.1, Troponin T Hi Sens 4Hr 29 H, Vitamin B12 439, TSH< 0.005 L 11/26/24 20:50: Serum Folate 25.60, Ethyl Alcohol < 10.1 11/27/24 03:48: WBC 7.2, RBC 4.34, Hgb 12.6, Hct 40.1, MCV 92.4, MCH 29.0, MCHC 31.4 L, RDW Std Deviation 44.5 H, RDW Coeff of Cory 13.2, Plt Count 221, MPV 9.7,Immature Gran % (Auto) 0.400, Neut % (Auto) 70.8 H, Lymph % (Auto) 14.1 L, Starke % (Auto) 13.4 H, Eos % (Auto) 1.0, Baso % (Auto) 0.3, Absolute Neuts (auto) 5.1,Absolute Lymphs (auto) 1.02, Nucleated RBC % 0, Sodium 139, Potassium 4.0, Chloride 105, Carbon Dioxide 25.3, Anion Gap 9, BUN 15, Creatinine 0.49 L, EstimCreat Clear Calc 56.35, Est GFR (MDRD) Non-Af 95, BUN/Creatinine Ratio 30.0 H, Glucose 111 H, Calcium 9.9, Phosphorus 3.9, Total Bilirubin 0.61, AST 16, ALT 13,Alkaline Phosphatase 90, Total Protein 5.5 L, Albumin 3.1 L, Globulin 2.4, Albumin/Globulin Ratio 1.3, Triglycerides 84, Cholesterol 90, LDL Cholesterol, Calc 35, VLDL Cholesterol 17, HDL Cholesterol 38 L, Cholesterol/HDL Ratio 2.37, Free T4 2.10 H Clinical Impression(s) from Imaging Studies Brain CT 11/26/24 16:28 IMPRESSION: No acute traumatic findings. Chronic/degenerative changes as described above. Reading Location: [facility] Cervical Spine CT 11/26/24 17:01 IMPRESSION: No acute traumatic findings. Chronic/degenerative changes as described above. Reading Location: [facility] Chest X-Ray 11/26/24 17:10 IMPRESSION: No radiographic evidence of an acute cardiopulmonary process Reading Location: [id number] Charges/Coding Visit Charges Inpatient E&M: 48963 Subs Hosp L2 11/29/24 1648 <Electronically signed by Paul Lauren MD> Cosigner Signature (if applicable): CC: ~ Signed ADDENDUM by Dr. Paul Lauren MD on 11/29/24 at 1653 Addendum Carvedilol is held. 11/29/241652<Electronically signed by Paul Lauren MD> Cosigner Signature (if applicable): cc: ~* Signed [facility] Work Phone: 1(270) 735-524009-29-2025 Progress note Author Paul Lauren [facility] Note Date/Time November 28, 2024 4:57pm [facility] Medical Records Department [address] [place] [id number] Progress Note - Hospitalist 11/28/24 1652 MR#: [id number] Acct: [id number] Name: AYAN CARRILLO Rep #:[id number] : 1945 79 From: Paul Ngo PCP: Dr. Brayan Thompson MD Status :ADM HERSON Location: [place] [id number] Reason for Visit Chief Complaint: Generalized Weakness, Fall and Head Injury. Objective Data Objective Data Vital Signs: Vital Signs Temp Pulse Resp BP Pulse Ox O2 Del Method O2 Flow Rate 97.8 F 70 16 106/60 97 Nasal Cannula 2 11/28/24 16:12 11/28/24 16:12 11/28/24 16:12 11/28/24 16:12 11/28/24 16:12 11/28/24 16:12 11/28/24 16:12 Oxygen Flow Rate (L/min) 2 Oxygen Delivery Method Nasal Cannula Weight: 203 lb 7.787 oz Body Mass Index (BMI) 41.0 Intake & Output: Intake and Output for Last 24 Hours 11/26/24 11/27/24 11/28/24 23:59 23:59 23:59 Intake Total 1653.17 / 1653.17 450 / 450 Output Total 475 / 475 450 / 450 Balance 1178.17 / 1178.17 0 / 0 Lab / Micro Data 11/28/24 05:34 11/28/24 05:34 Labs: Laboratory Results - last 24 hr 11/28/24 05:34: WBC 7.4, RBC 4.33, Hgb 12.8, Hct 41.3, MCV 95.4, MCH 29.6, MCHC 31.0 L, RDW Std Deviation 47.8 H, RDW Coeff of Cory 13.6, Plt Count 242, MPV 9.9,Immature Gran % (Auto) 0.300, Neut % (Auto) 79.4 H, Lymph % (Auto) 7.3 L, Starke %(Auto) 11.3 H, Eos % (Auto) 1.3, Baso % (Auto) 0.4, Absolute Neuts (auto) 5.9, Absolute Lymphs (auto) 0.54 L, Nucleated RBC % 0, Sodium 136, Potassium 4.8, Chloride 102, Carbon Dioxide 21.2, Anion Gap 13, BUN 21 H, Creatinine 0.59 L, Estim Creat Clear Calc 56.86, Est GFR (MDRD) Non-Af 91, BUN/Creatinine Ratio 35.0 H, Glucose 125 H, Calcium 9.9, Phosphorus 3.7, NT pro BNP II 176 Micro: Microbiology 11/26/24 16:45 Mucosa - Nose SARS-CoV-2, Influenza & RSV (PCR) - Final Radiography Diagnostic Testing: Radiology Impression Chest X-Ray 11/28/24 08:55 IMPRESSION: Hypoventilation. Atelectasis left lung base. Reading Location: [facility] Rhythm Strip Rhythm Strip: Sinus Rhythm Rate: 70 Ectopy: None Physical Exam Narrative Seen and examined. Patient was dizzy and lightheaded with low BP, and not voided yesterday since 1700, dropped BP to 89/53. Nighttime hospitalist ordered furosemide and albumin. Very weak. Denies chronic lung disease including asthma COPD/interstitial lung disease. Does not use oxygen at home. No CPAP. No history of smoking. Denies chronic heart disease. No chest pain Bilateral leg swelling Physical exam General: Alert, Oriented x3, Cooperative. Morbid obesity BMI 40.4 kg/m?. Fatigue HEENT: Atraumatic, PERRLA, EOMI, Normocephalic. Oral: No Gingival or Mucosal Lesions/ Ulcerations Neck: Supple, No JVD, Negative Carotid Bruits Chest wall/Lungs: Air entry diminished in bilateral lung bases. No crepitation/rhonchi Cardiovascular: Regular rate and rhythm, Normal S1,S2, No M/G/R Abdomen: Bowel Sounds Present, Soft, Non Tender, Non-Distended : No dysuria. No renal angle tenderness. No suprapubic tenderness. Extremities: 2+ pedal edema below knee, Capillary Refill Less than 3 Seconds Skin: No rashes, No breakdown Musculoskeletal: Mild tenderness on palpation over pitting edema. Degenerative arthritic deformities of her knees and ankles. ROM restricted over knees. Neurological: Cranial nerves II-XII grossly intact, DTR 2+/4. No acute focal neurological deficit. Psych/Mental Status: Flat affect Assessment & Plan Assessment/Plan (1) Frequent falls: (2) Generalized weakness: (3) Ambulatory dysfunction: (4) Closed head injury without concussion: QUALIFIERS: Encounter type: initial encounter Qualified Code(s): S09.90XA - Unspecified injury of head, initial encounter (5) Paroxysmal atrial fibrillation: (6) Morbid obesity with BMI of 40.0-44.9, adult: PLAN: Plan 79-year-old female was admitted with increased weakness and multiple falls last week including on the day of admission. She felt her legs were weak, fell to the ground and hit her head on the cabinet. Denies LOC. On Eliquis. Chronic swelling of the legs at baseline with no recent worsening. 1. Frequent Falls with Generalized Weakness, Ambulatory Dysfunction and Closed Head Injury and low BP- Admit to general medical floor. Pain control with acetaminophen and low-dose oxycodone. Was evaluated by PT and felt mildly dizzyand short of breath and mild hypoxia. Chest x-ray daily reviewed and no acute cardiopulmonary process. Patient does not have acute respiratory symptoms of cough or sputum or symptoms of pneumonia. Incentive spirometry 11/28: Low BP/intermittent hypotension: Patient was given IV albumin with Lasix last night. BP 110/79. Started on midodrine. Orthostatic BP ordered for tomorrow AM. Continue PT and OT with caution. New mild hypoxia: Etiology unclear possible related to atelectasis/sleep apnea. Patient denies chronic lung disease or smoking or sleep apnea. CPAP ordered 11/28: Chest x-ray shows left lung base atelectasis. Hypoventilation. 2. PAF; on diltiazem and apixaban BID: On carvedilol and Eliquis 5 mg twice daily. 3. Morbid (class III) obesity; with BMI 41.3 KG per square meter on admission- Weight loss recommended. 4. Essential hypertension; on carvedilol twice daily - Maintain carvedilol as previous. 5. Hyperlipidemia; on atorvastatin - continue atorvastatin. Check CPK 6. Mild hyperthyroidism with history of acquired hypothyroidism; on levothyroxine - TSH very low, less than 0.005. Free T4: 2.10. Hold levothyroxine 3 days and decrease dose to 50 mcg daily. Recommend TSH and free T4 after 6 weeks. 7. CAD; s/p LA -on baby aspirin. If anemia will be issue, baby aspirin can be discontinued as patient already on Eliquis. 8. GERD; on omeprazole - Maintain PPI. 9. OA -PT and OT. 10. DVT prophylaxis - Patient already on apixaban for #2 which will be reluctantly continued for now. Microbiology Past 72 Hours 11/26/24 16:45 Mucosa - Nose SARS-CoV-2, Influenza & RSV (PCR) - Final Laboratory Results 11/28/24 05:34: WBC 7.4, RBC 4.33, Hgb 12.8, Hct 41.3, MCV 95.4, MCH 29.6, MCHC 31.0 L, RDW Std Deviation 47.8 H, RDW Coeff of Cory 13.6, Plt Count 242, MPV 9.9,Immature Gran % (Auto) 0.300, Neut % (Auto) 79.4 H, Lymph % (Auto) 7.3 L, Starke %(Auto) 11.3 H, Eos % (Auto) 1.3, Baso % (Auto) 0.4, Absolute Neuts (auto) 5.9, Absolute Lymphs (auto) 0.54 L, Nucleated RBC % 0, Sodium 136, Potassium 4.8, Chloride 102, Carbon Dioxide 21.2, Anion Gap 13, BUN 21 H, Creatinine 0.59 L, Estim Creat Clear Calc 56.86, Est GFR (MDRD) Non-Af 91, BUN/Creatinine Ratio 35.0 H, Glucose 125 H, Calcium 9.9, Phosphorus 3.7, NT pro BNP II 176 Laboratory Results 11/26/24 16:45: WBC 7.7, RBC 4.63, Hgb 13.7, Hct 41.7, MCV 90.1, MCH 29.6, MCHC 32.9, RDW Std Deviation 43.5, RDW Coeff of Cory 13.2, Plt Count 227, MPV 9.3, Immature Gran % (Auto) 0.300, Neut % (Auto) 79.7 H, Lymph % (Auto) 9.7 L, Starke %(Auto) 9.2, Eos % (Auto) 0.8, Baso % (Auto) 0.3, Absolute Neuts (auto) 6.2, Absolute Lymphs (auto) 0.75 L, Nucleated RBC % 0, PT 15.8 H, INR 1.2, APTT 29.2, Sodium 138, Potassium 4.8, Chloride 103, Carbon Dioxide 25.9, Anion Gap 9, BUN 16, Creatinine 0.53 L, Estim Creat Clear Calc 57.00, Est GFR (MDRD) Non-Af 93, BUN/Creatinine Ratio 30.3 H, Glucose 122 H, Hemoglobin A1c 5.6, Calcium 10.1, Troponin T High Sens 28 H D, NT pro BNP II 517 11/26/24 16:50: Urine Color Yellow, Urine Clarity Sl. Cloudy, Urine pH 6.5, Ur Specific Lee 1.015, Urine Protein 15 H, Urine Glucose (UA) Normal, Urine Ketones Negative, Urine Occult Blood 10 H, Urine Nitrite Negative, Urine Bilirubin Negative, Urine Urobilinogen Normal, Ur Leukocyte Esterase Negative, Urine RBC 0-5 SEEN, Urine WBC 0-5 SEEN, Ur Squamous Epith Cells 10-25 SEEN, Amorphous Sediment 1+, Urine Bacteria 2+, Urine Mucus 0 SEEN, Urine Opiates Screen NEGATIVE, U Buprenorphine Qual NEGATIVE, Ur Oxycodone Screen NEGATIVE, Urine Methadone Screen NEGATIVE, Urine Fentanyl Screen NEGATIVE, Ur BarbituratesScreen NEGATIVE, Ur Phencyclidine Scrn NEGATIVE, Ur Amphetamines Screen NEGATIVE, U Benzodiazepines Scrn NEGATIVE, Urine Cocaine Screen NEGATIVE, U Cannabinoids Screen NEGATIVE 11/26/24 18:40: Troponin T Hi Sens 2 Hr 27 H 11/26/24 20:25: Magnesium 2.1, Troponin T Hi Sens 4Hr 29 H, Vitamin B12 439, TSH< 0.005 L 11/26/24 20:50: Serum Folate 25.60, Ethyl Alcohol < 10.1 11/27/24 03:48: WBC 7.2, RBC 4.34, Hgb 12.6, Hct 40.1, MCV 92.4, MCH 29.0, MCHC 31.4 L, RDW Std Deviation 44.5 H, RDW Coeff of Cory 13.2, Plt Count 221, MPV 9.7,Immature Gran % (Auto) 0.400, Neut % (Auto) 70.8 H, Lymph % (Auto) 14.1 L, Starke % (Auto) 13.4 H, Eos % (Auto) 1.0, Baso % (Auto) 0.3, Absolute Neuts (auto) 5.1,Absolute Lymphs (auto) 1.02, Nucleated RBC % 0, Sodium 139, Potassium 4.0, Chloride 105, Carbon Dioxide 25.3, Anion Gap 9, BUN 15, Creatinine 0.49 L, EstimCreat Clear Calc 56.35, Est GFR (MDRD) Non-Af 95, BUN/Creatinine Ratio 30.0 H, Glucose 111 H, Calcium 9.9, Phosphorus 3.9, Total Bilirubin 0.61, AST 16, ALT 13,Alkaline Phosphatase 90, Total Protein 5.5 L, Albumin 3.1 L, Globulin 2.4, Albumin/Globulin Ratio 1.3, Triglycerides 84, Cholesterol 90, LDL Cholesterol, Calc 35, VLDL Cholesterol 17, HDL Cholesterol 38 L, Cholesterol/HDL Ratio 2.37, Free T4 2.10 H Clinical Impression(s) from Imaging Studies Brain CT 11/26/24 16:28 IMPRESSION: No acute traumatic findings. Chronic/degenerative changes as described above. Reading Location: [id number] Cervical Spine CT 11/26/24 17:01 IMPRESSION: No acute traumatic findings. Chronic/degenerative changes as described above. Reading Location: [id number] Chest X-Ray 11/26/24 17:10 IMPRESSION: No radiographic evidence of an acute cardiopulmonary process Reading Location: [id number] Charges/Coding Visit Charges Inpatient E&M: 40963 Subs Hosp L2 11/28/24 1657 <Electronically signed by Paul Lauren MD> Cosigner Signature (if applicable): CC: ~ Signed [facility] Work Phone: [phone] Radiology Diagnostic study [facility]09-28-2025 Progress note Author Paul Lauren [facility] Note Date/Time November 27, 2024 11:52am [facility] Medical Records Department [address] [place] [address] Progress Note - Hospitalist 11/27/24 0847 MR#: [id number] Acct: [id number] Name: AYAN CARRILLO Rep #:[id number] : 1945 79 From: Paul Ngo PCP: Dr. Brayan Thompson MD Status :ADM HERSON Location: [place] [id number] Reason for Visit Chief Complaint: Generalized Weakness, Fall and Head Injury. Objective Data Objective Data Vital Signs: Vital Signs Temp Pulse Resp BP Pulse Ox O2 Del Method O2 Flow Rate 98.0 F 76 18 131/78 H 98 Nasal Cannula 2 11/27/24 08:04 11/27/24 08:04 11/27/24 08:04 11/27/24 08:04 11/27/24 08:04 11/27/24 08:10 11/27/24 08:10 Oxygen Flow Rate (L/min) 2 Oxygen Delivery Method Nasal Cannula Weight: 200 lb 2.876 oz Body Mass Index (BMI) 40.3 Intake & Output: Intake and Output for Last 24 Hours 11/25/24 11/26/24 11/27/24 23:59 23:59 23:59 Intake Total 100 / 100 Balance 100 / 100 Lab / Micro Data 11/27/24 03:48 11/27/24 03:48 Labs: Laboratory Results - last 24 hr 11/26/24 16:45: WBC 7.7, RBC 4.63, Hgb 13.7, Hct 41.7, MCV 90.1, MCH 29.6, MCHC 32.9, RDW Std Deviation 43.5, RDW Coeff of Cory 13.2, Plt Count 227, MPV 9.3, Immature Gran % (Auto) 0.300, Neut % (Auto) 79.7 H, Lymph % (Auto) 9.7 L, Starke %(Auto) 9.2, Eos % (Auto) 0.8, Baso % (Auto) 0.3, Absolute Neuts (auto) 6.2, Absolute Lymphs (auto) 0.75 L, Nucleated RBC % 0, PT 15.8 H, INR 1.2, APTT 29.2, Sodium 138, Potassium 4.8, Chloride 103, Carbon Dioxide 25.9, Anion Gap 9, BUN 16, Creatinine 0.53 L, Estim Creat Clear Calc 57.00, Est GFR (MDRD) Non-Af 93, BUN/Creatinine Ratio 30.3 H, Glucose 122 H, Hemoglobin A1c 5.6, Calcium 10.1, Troponin T High Sens 28 H D, NT pro BNP II 517 11/26/24 16:50: Urine Color Yellow, Urine Clarity Sl. Cloudy, Urine pH 6.5, Ur Specific Lee 1.015, Urine Protein 15 H, Urine Glucose (UA) Normal, Urine Ketones Negative, Urine Occult Blood 10 H, Urine Nitrite Negative, Urine Bilirubin Negative, Urine Urobilinogen Normal, Ur Leukocyte Esterase Negative, Urine RBC 0-5 SEEN, Urine WBC 0-5 SEEN, Ur Squamous Epith Cells 10-25 SEEN, Amorphous Sediment 1+, Urine Bacteria 2+, Urine Mucus 0 SEEN, Urine Opiates Screen NEGATIVE, U Buprenorphine Qual NEGATIVE, Ur Oxycodone Screen NEGATIVE, Urine Methadone Screen NEGATIVE, Urine Fentanyl Screen NEGATIVE, Ur BarbituratesScreen NEGATIVE, Ur Phencyclidine Scrn NEGATIVE, Ur Amphetamines Screen NEGATIVE, U Benzodiazepines Scrn NEGATIVE, Urine Cocaine Screen NEGATIVE, U Cannabinoids Screen NEGATIVE 11/26/24 18:40: Troponin T Hi Sens 2 Hr 27 H 11/26/24 20:25: Magnesium 2.1, Troponin T Hi Sens 4Hr 29 H, Vitamin B12 439, TSH< 0.005 L 11/26/24 20:50: Serum Folate 25.60, Ethyl Alcohol < 10.1 11/27/24 03:48: WBC 7.2, RBC 4.34, Hgb 12.6, Hct 40.1, MCV 92.4, MCH 29.0, MCHC 31.4 L, RDW Std Deviation 44.5 H, RDW Coeff of Cory 13.2, Plt Count 221, MPV 9.7,Immature Gran % (Auto) 0.400, Neut % (Auto) 70.8 H, Lymph % (Auto) 14.1 L, Starke % (Auto) 13.4 H, Eos % (Auto) 1.0, Baso % (Auto) 0.3, Absolute Neuts (auto) 5.1,Absolute Lymphs (auto) 1.02, Nucleated RBC % 0, Sodium 139, Potassium 4.0, Chloride 105, Carbon Dioxide 25.3, Anion Gap 9, BUN 15, Creatinine 0.49 L, EstimCreat Clear Calc 56.35, Est GFR (MDRD) Non-Af 95, BUN/Creatinine Ratio 30.0 H, Glucose 111 H, Calcium 9.9, Phosphorus 3.9, Total Bilirubin 0.61, AST 16, ALT 13,Alkaline Phosphatase 90, Total Protein 5.5 L, Albumin 3.1 L, Globulin 2.4, Albumin/Globulin Ratio 1.3, Triglycerides 84, Cholesterol 90, LDL Cholesterol, Calc 35, VLDL Cholesterol 17, HDL Cholesterol 38 L, Cholesterol/HDL Ratio 2.37 Micro: Microbiology 11/26/24 16:45 Mucosa - Nose SARS-CoV-2, Influenza & RSV (PCR) - Final Radiography Diagnostic Testing: Radiology Impression Brain CT 11/26/24 16:28 IMPRESSION: No acute traumatic findings. Chronic/degenerative changes as described above. Reading Location: [id number] Cervical Spine CT 11/26/24 17:01 IMPRESSION: No acute traumatic findings. Chronic/degenerative changes as described above. Reading Location: [id number] Chest X-Ray 11/26/24 17:10 IMPRESSION: No radiographic evidence of an acute cardiopulmonary process Reading Location: [id number] Rhythm Strip Rhythm Strip: Sinus Rhythm Rate: 70 Ectopy: None Physical Exam Narrative Seen and examined. The patient was evaluated by PT and OT in the morning today. As per PT she feltlittle dizzy although patient denies it. She was also little off balance and required assist and got short of breath. Mild hypoxia, oxygen increased to 3 L after moving from bed to chair and then back to 2 L. Denies chronic lung disease including asthma COPD/interstitial lung disease. Does not use oxygen athome. No CPAP. No history of smoking. Denies chronic heart disease. No chestpain Bilateral leg swelling Physical exam General: Alert, Oriented x3, Cooperative. Morbid obesity BMI 40.4 kg/m? HEENT: Atraumatic, PERRLA, EOMI, Normocephalic. Oral: No Gingival or Mucosal Lesions/ Ulcerations Neck: Supple, No JVD, Negative Carotid Bruits Chest wall/Lungs: Air entry diminished in bilateral lung bases. No crepitation/rhonchi Cardiovascular: Regular rate and rhythm, Normal S1,S2, No M/G/R Abdomen: Bowel Sounds Present, Soft, Non Tender, Non-Distended : No dysuria. No renal angle tenderness. No suprapubic tenderness. Extremities: 2+ pedal edema below knee, Capillary Refill Less than 3 Seconds Skin: No rashes, No breakdown Musculoskeletal: Mild tenderness on palpation over pitting edema. Degenerative arthritic deformities of her knees and ankles. ROM restricted over knees. Neurological: Cranial nerves II-XII grossly intact, DTR 2+/4. No acute focal neurological deficit. Psych/Mental Status: Normal Affect, Appropriate. Assessment & Plan Assessment/Plan (1) Frequent falls: (2) Generalized weakness: (3) Ambulatory dysfunction: (4) Closed head injury without concussion: QUALIFIERS: Encounter type: initial encounter Qualified Code(s): S09.90XA - Unspecified injury of head, initial encounter (5) Paroxysmal atrial fibrillation: (6) Morbid obesity with BMI of 40.0-44.9, adult: PLAN: Plan 79-year-old female was admitted with increased weakness and multiple falls last week including on the day of admission. She felt her legs were weak, fell to the ground and hit her head on the cabinet. Denies LOC. On Eliquis. Chronic swelling of the legs at baseline with no recent worsening. 1. Frequent Falls with Generalized Weakness, Ambulatory Dysfunction and Closed Head Injury - Admit to general medical floor. Pain control with acetaminophen and low-dose oxycodone. Was evaluated by PT and felt mildly dizzy and short of breath and mild hypoxia. Chest x-ray daily reviewed and no acute cardiopulmonary process. Patient does not have acute respiratory symptoms of cough or sputum or symptoms of pneumonia. Incentive spirometry New mild hypoxia: Etiology unclear possible related to atelectasis/sleep apnea. Patient denies chronic lung disease or smoking or sleep apnea. CPAP ordered 2. PAF; on diltiazem and apixaban BID: On carvedilol and Eliquis 5 mg twice daily. 3. Morbid (class III) obesity; with BMI 41.3 KG per square meter on admission- Weight loss will be recommended. 4. Essential hypertension; on carvedilol twice daily - Maintain carvedilol as previous. 5. Hyperlipidemia; on atorvastatin - continue atorvastatin. Check CPK 6. Mild hyperthyroidism with history of acquired hypothyroidism; on levothyroxine - TSH very low, less than 0.005. Free T4: 2.10. Hold levothyroxine 3 days and decrease dose to 50 mcg daily. Recommend TSH and free T4 after 6 weeks. 7. CAD; s/p LA -on baby aspirin. If anemia will be issue, baby aspirin can be discontinued as patient already on Eliquis. 8. GERD; on omeprazole - Maintain PPI. 9. OA -PT and OT. 10. DVT prophylaxis - Patient already on apixaban for #2 which will be reluctantly continued for now. Microbiology Past 72 Hours 11/26/24 16:45 Mucosa - Nose SARS-CoV-2, Influenza & RSV (PCR) - Final Laboratory Results 11/26/24 16:45: WBC 7.7, RBC 4.63, Hgb 13.7, Hct 41.7, MCV 90.1, MCH 29.6, MCHC 32.9, RDW Std Deviation 43.5, RDW Coeff of Cory 13.2, Plt Count 227, MPV 9.3, Immature Gran % (Auto) 0.300, Neut % (Auto) 79.7 H, Lymph % (Auto) 9.7 L, Starke %(Auto) 9.2, Eos % (Auto) 0.8, Baso % (Auto) 0.3, Absolute Neuts (auto) 6.2, Absolute Lymphs (auto) 0.75 L, Nucleated RBC % 0, PT 15.8 H, INR 1.2, APTT 29.2, Sodium 138, Potassium 4.8, Chloride 103, Carbon Dioxide 25.9, Anion Gap 9, BUN 16, Creatinine 0.53 L, Estim Creat Clear Calc 57.00, Est GFR (MDRD) Non-Af 93, BUN/Creatinine Ratio 30.3 H, Glucose 122 H, Hemoglobin A1c 5.6, Calcium 10.1, Troponin T High Sens 28 H D, NT pro BNP II 517 11/26/24 16:50: Urine Color Yellow, Urine Clarity Sl. Cloudy, Urine pH 6.5, Ur Specific Lee 1.015, Urine Protein 15 H, Urine Glucose (UA) Normal, Urine Ketones Negative, Urine Occult Blood 10 H, Urine Nitrite Negative, Urine Bilirubin Negative, Urine Urobilinogen Normal, Ur Leukocyte Esterase Negative, Urine RBC 0-5 SEEN, Urine WBC 0-5 SEEN, Ur Squamous Epith Cells 10-25 SEEN, Amorphous Sediment 1+, Urine Bacteria 2+, Urine Mucus 0 SEEN, Urine Opiates Screen NEGATIVE, U Buprenorphine Qual NEGATIVE, Ur Oxycodone Screen NEGATIVE, Urine Methadone Screen NEGATIVE, Urine Fentanyl Screen NEGATIVE, Ur BarbituratesScreen NEGATIVE, Ur Phencyclidine Scrn NEGATIVE, Ur Amphetamines Screen NEGATIVE, U Benzodiazepines Scrn NEGATIVE, Urine Cocaine Screen NEGATIVE, U Cannabinoids Screen NEGATIVE 11/26/24 18:40: Troponin T Hi Sens 2 Hr 27 H 11/26/24 20:25: Magnesium 2.1, Troponin T Hi Sens 4Hr 29 H, Vitamin B12 439, TSH< 0.005 L 11/26/24 20:50: Serum Folate 25.60, Ethyl Alcohol < 10.1 11/27/24 03:48: WBC 7.2, RBC 4.34, Hgb 12.6, Hct 40.1, MCV 92.4, MCH 29.0, MCHC 31.4 L, RDW Std Deviation 44.5 H, RDW Coeff of Cory 13.2, Plt Count 221, MPV 9.7,Immature Gran % (Auto) 0.400, Neut % (Auto) 70.8 H, Lymph % (Auto) 14.1 L, Starke % (Auto) 13.4 H, Eos % (Auto) 1.0, Baso % (Auto) 0.3, Absolute Neuts (auto) 5.1,Absolute Lymphs (auto) 1.02, Nucleated RBC % 0, Sodium 139, Potassium 4.0, Chloride 105, Carbon Dioxide 25.3, Anion Gap 9, BUN 15, Creatinine 0.49 L, EstimCreat Clear Calc 56.35, Est GFR (MDRD) Non-Af 95, BUN/Creatinine Ratio 30.0 H, Glucose 111 H, Calcium 9.9, Phosphorus 3.9, Total Bilirubin 0.61, AST 16, ALT 13,Alkaline Phosphatase 90, Total Protein 5.5 L, Albumin 3.1 L, Globulin 2.4, Albumin/Globulin Ratio 1.3, Triglycerides 84, Cholesterol 90, LDL Cholesterol, Calc 35, VLDL Cholesterol 17, HDL Cholesterol 38 L, Cholesterol/HDL Ratio 2.37, Free T4 2.10 H Clinical Impression(s) from Imaging Studies Brain CT 11/26/24 16:28 IMPRESSION: No acute traumatic findings. Chronic/degenerative changes as described above. Reading Location: [facility] Cervical Spine CT 11/26/24 17:01 IMPRESSION: No acute traumatic findings. Chronic/degenerative changes as described above. Reading Location: [facility] Chest X-Ray 11/26/24 17:10 IMPRESSION: No radiographic evidence of an acute cardiopulmonary process Reading Location: [id number] Charges/Coding Visit Charges Inpatient E&M: 58480 Subs Hosp L2 11/27/24 1140 <Electronically signed by Paul Lauren MD> Cosigner Signature (if applicable): CC: ~ Signed ADDENDUM by Dr. Paul Lauren MD on 11/27/24 at 1152 Addendum Patient had leg swelling and mild shortness of breath on movement along with hypoxia. proBNP normal. 2D echo reviewed EF 55 to 60%. Normal RV size and systolic function. LA moderately enlarged. Mild MR. 1-2+ TR. No pericardial effusion. Clinical Impression(s) from Imaging Studies Brain CT 11/26/24 16:28 IMPRESSION: No acute traumatic findings. Chronic/degenerative changes as described above. Reading Location: [facility] Cervical Spine CT 11/26/24 17:01 IMPRESSION: No acute traumatic findings. Chronic/degenerative changes as described above. Reading Location: [facility] Chest X-Ray 11/26/24 17:10 IMPRESSION: No radiographic evidence of an acute cardiopulmonary process Reading Location: [id number] 11/27/24 1152<Electronically signed by Paul Lauren MD> Cosigner Signature (if applicable): cc: ~* Signed [facility] Work Phone: [phone] 476-540009-28-2025 History and physical note Author Reynaldo Nguyen [facility] Note Date/Time November 27, 2024 6:39am [facility] Medical Records Department [address] [place] [id number] H&P Exam - Hospitalist 11/26/242013 MR#: [id number] Acct: [id number] Name: AYAN CARRILLO Rep #:[id number] : 1945 79 From: Reynaldo Dickey DO PCP: Dr. Brayan Thompson MD Status :ADM HERSON Location: [facility] [place] [id number] HPI - General General Date of Admission: 11/26/24 Date of Service: 11/26/24 Chief Complaint: Generalized Weakness, Fall and Head Injury. HPI Narrative AYAN CARRILLO, is a 79 F with a past medical history of essential hypertension; on carvedilol twice daily, hyperlipidemia; on atorvastatin, hypothyroidism; on levothyroxine, morbid (class III) obesity; with BMI 41.3 this admission, CAD; s/p LA, PAF; on diltiazem and apixaban twice daily, GERD; on omeprazole and OA who presents to [facility] ER complaining of generalized weakness with fall and closed head injury. Ms. Carrillo reports her symptoms began earlier this afternoon when she was walking to the bathroom and her legs suddenly became weak causing her to subsequently fall to the ground. She deniesloss of consciousness with her fall but she does admit to hitting her head, thankfully without significant injury. She also admits to hitting her Right posterior shoulder area and was unable to get herself up so she pushed her Life-Alert button and activated EMS. Patient informed the ER physician that she lives with her daughter who works during the day causing her to be left at home alone frequently. She also went on to state that this is her second fall this week with intermittent lightheadedness and dyspnea on exertion that has been worsening throughout the week. She now cannot walk more than a few feet withoutbecoming severely short of breath which triggers heightened anxiety about falling with patient having to stop and rest even with minimal distances. She states she was recently seen by her skate maker who felt her carvedilol dose was too strong and they cut her dose ~3 days ago but her symptoms have persisted. She denies associated fever, chills, nausea, vomiting, diarrhea, constipation, abdominal pain, chest pain, palpitations, heart racing, dysuria, hematuria or rash - but she does admit to chronic lower extremity edema which isunchanged from previous. In the ER she was diagnosed with Generalized Weakness and Ambulatory Dysfunction causing increasingly Frequent Falls complicated by PAF; on apixaban with patient becoming increasingly poor candidate for DOAC therapy and also likely in need of subacute rehabilitation versus ECF placement. She was noted to have otherwise unremarkable traumatic findings on imaging in addition to unremarkable vital signs and laboratory studies. She was then admitted to the general medical floor with telemetric monitoring under observation status for ongoing care for a stay that is expected to be less than 2 midnights. [facility] Medical History (Updated 11/27/24 @ 00:[address] Stephanie Kincaid, ) Morbid obesity with BMI of 40.0-44.9, adult Hypothyroidism GERD (gastroesophageal reflux disease) GI bleed Atrial fibrillation Hypertension Myocardial infarction Obesity Essential (primary) hypertension Atherosclerotic heart disease of [place] coronary artery without angina pectoris Hyperlipidemia GERD (gastroesophageal reflux disease) Osteoarthritis Home Medications ?Medication ?Instructions ?Recorded ?Last Taken ?Type aspirin 81 mg chewable tablet 81 mg PO QHS 10/25/15 History nitroglycerin 0.4 mg sublingual 0.4 mg sublingual Q5M PRN Chest 08/10/23 10/25/24 Rx tablet Pain #25 tabs atorvastatin 40 mg tablet 40 mg PO QHS #90 tabs 10/24/24 Rx omeprazole 20 mg capsule,delayed 20 mg PO DAILY #90 ca ps 08/01/24 10/25/24 Rx release lisinopril 20 mg tablet 20 [...] 595 mg PO DAILY 10/25/24 History tablet carvedilol 25 mg tablet 25 mg PO BID 11/26/24 Unknow n History Allergy/AdvReac Type Severity Reaction Status Date / Time hydrochlorothiazide AdvReac Intermediate Constipatio Verified 11/26/24 15:58 n Family History Father CAD (coronary artery disease) Mother CHF (congestive heart failure) Sister Hypertension Surgical History History of appendectomy History of cholecystectomy History of left heart catheterization (06/04/08) History of coronary angioplasty (09/20/07) History of laparoscopic cholecystectomy History of total hysterectomy Social History housing: house Smoking Status: Never smoker alcohol intake: never substance use type: does not use ROS ROS Narrative Review of Systems: Constitutional: Patient denies fever or chills. Eyes: Patient denies changes in vision or discharge from eyes. ENT: Patient denies runny nose, sore throat or ear pain. Resp: Patient admits to ANTHONY but she denies cough or wheezing. CV: Patient denies chest pain, palpitations, heart racing, syncope or LE edema. GI: Patient denies abdominal pain, nausea, vomiting, diarrhea or constipation. : Patient denies dysuria or hematuria. MSK: Patient admits to generalized weakness with ambulatory dysfunction as per HPI. Skin: Patient denies rash, abscess, wounds or jaundice. Psych: Patient admits to heightened anxiety but she denies SI or HI. Neuro: Patient denies headache, paresthesias or focal neurologic deficits. Allergy: Patient denies lip swelling, tongue swelling or urticaria. Hematology: Patient admits to easy bleeding and bruising on apixaban. Endocrinology: Patient denies polyuria, polydipsia, polyphagia or het/cold intolerance. 14 point ROS otherwise negative except for positives noted above in HPI. Vital Signs Vital Signs Vital Signs: 11/26/24 15:56 11/26/24 16:00 11/26/24 16:00 Temperature 97.6 F L Temperature Source Oral Pulse Rate 72 Pulse Rate [Lying] Pulse Rate [Sitting (for 1 minute prior to obtaining)] Pulse Rate [Standing (for 1 minute prior to obtaining)] Respiratory Rate 18 Respiratory Effort Normal Non-Labored Normal Non-Labored Respiratory Depth Normal Respiratory Pattern Normal Blood Pressure 148/103 H Blood Pressure [Lying] Blood Pressure [Sitting (for 1 minute prior to obtaining)] Blood Pressure [Standing (for 1 minute prior to obtaining)] Blood Pressure Mean 118 Blood Pressure Mean [Lying] Blood Pressure Mean [Sitting (for 1 minute prior to obtaining)] Blood Pressure Mean [Standing (for 1 minute prior to obtaining)] Pulse Ox 94 Oxygen Delivery Method Room Air Room Air 11/26/24 17:56 11/26/24 19:00 11/26/24 20:11 Temperature Temperature Source Pulse Rate 66 83 Pulse Rate [Lying] 78 Pulse Rate [Sitting (for 1 minute prior to obtaining)] 82 Pulse Rate [Standing (for 1 minute prior to obtaining)] 78 Respiratory Rate 18 Respiratory Effort Respiratory Depth Respiratory Pattern Blood Pressure 146/84 H 148/83 H Blood Pressure [Lying] 165/81 H Blood Pressure [Sitting (for 1 minute prior to obtaining)] 120/82 H Blood Pressure [Standing (for 1 minute prior to obtaining)] 122/46 H Blood Pressure Mean 104 104 Blood Pressure Mean [Lying] 109 Blood Pressure Mean [Sitting (for 1 minute prior to obtaining)] 94 Blood Pressure Mean [Standing (for 1 minute prior to obtaining)] 71 Pulse Ox 94 94 Oxygen Delivery Method Room Air Room Air 11/26/24 20:13 Temperature 97.6 F L Temperature Source Pulse Rate 82 Pulse Rate [Lying] Pulse Rate [Sitting (for 1 minute prior to obtaining)] Pulse Rate [Standing (for 1 minute prior to obtaining)] Respiratory Rate 20 H Respiratory Effort Respiratory Depth Respiratory Pattern Blood Pressure 120/82 H Blood Pressure [Lying] Blood Pressure [Sitting (for 1 minute prior to obtaining)] Blood Pressure [Standing (for 1 minute prior to obtaining)] Blood Pressure Mean 94 Blood Pressure Mean [Lying] Blood Pressure Mean [Sitting (for 1 minute prior to obtaining)] Blood Pressure Mean [Standing (for 1 minute prior to obtaining)] Pulse Ox 94 Oxygen Delivery Method Weight Weight: 204 lb 5.896 oz Body Mass Index (BMI) 41.3 Physical Exam Const alert, oriented x3 and no apparent distress Constitutional Narrative: Morbidly obese with chronically ill but nontoxic appearance. General Appearance: cooperative HEENT normocephalic, head/scalp atraumatic, hearing grossly normal bilaterally and moist oral mucous membranes Eyes PERRL, EOMs intact bilaterally and conjunctivae normal Neck no lymphadenopathy, supple and no JVD Resp normal respiratory effort, no retractions, no use of accessory muscles and clearto auscultation bilaterally Cardio regular rate and regular rhythm GI normal to inspection, nondistended, normoactive bowel sounds, soft to palpation,non-tender and non-distended GI Narrative: Obese. Extremity normal to inspection and full ROM Skin Skin Narrative: Patient has no evidence of rash, abscess, wounds or jaundice. Neuro oriented x3, CN's II-XII intact bilaterally, moves all extremities and no focal motor deficits Neuro Narrative: Patient is weak with knees buckling while attempting to ambulate just a few feetwith severe associated anxiety about falling. Sensorium / Orientation: awake, alert, oriented to person, oriented to place andoriented to time Speech: speech normal Psych Mood & Affect: anxious Results Medical Records Data Attestation: I reviewed the patient's medical records Lab / Micro Data Attestation: I reviewed the patient's lab results. 11/27/24 03:48 11/27/24 03:48 Labs: Laboratory Results - last 24 hr 11/26/24 16:45: WBC 7.7, RBC 4.63, Hgb 13.7, Hct 41.7, MCV 90.1, MCH 29.6, MCHC 32.9, RDW Std Deviation 43.5, RDW Coeff of Cory 13.2, Plt Count 227, MPV 9.3, Immature Gran % (Auto) 0.300, Neut % (Auto) 79.7 H, Lymph % (Auto) 9.7 L, Starke %(Auto) 9.2, Eos % (Auto) 0.8, Baso % (Auto) 0.3, Absolute Neuts (auto) 6.2, Absolute Lymphs (auto) 0.75 L, Nucleated RBC % 0, PT 15.8 H, INR 1.2, APTT 29.2, Sodium 138, Potassium 4.8, Chloride 103, Carbon Dioxide 25.9, Anion Gap 9, BUN 16, Creatinine 0.53 L, Estim Creat Clear Calc 57.00, Est GFR (MDRD) Non-Af 93, BUN/Creatinine Ratio 30.3 H, Glucose 122 H, Calcium 10.1, Troponin T High Sens 28H D, NT pro BNP II 517 11/26/24 16:50: Urine Color Yellow, Urine Clarity Sl. Cloudy, Urine pH 6.5, Ur Specific Lee 1.015, Urine Protein 15 H, Urine Glucose (UA) Normal, Urine Ketones Negative, Urine Occult Blood 10 H, Urine Nitrite Negative, Urine Bilirubin Negative, Urine Urobilinogen Normal, Ur Leukocyte Esterase Negative, Urine RBC 0-5 SEEN, Urine WBC 0-5 SEEN, Ur Squamous Epith Cells 10-25 SEEN, Amorphous Sediment 1+, Urine Bacteria 2+, Urine Mucus 0 SEEN 11/26/24 18:40: Troponin T Hi Sens 2 Hr 27 H Micro: Microbiology 11/26/24 16:45 Mucosa - Nose SARS-CoV-2, Influenza & RSV (PCR) - Final Imaging Radiology Impression Brain CT 11/26/24 16:28 IMPRESSION: No acute traumatic findings. Chronic/degenerative changes as described above. Reading Location: [facility] Cervical Spine CT 11/26/24 17:01 IMPRESSION: No acute traumatic findings. Chronic/degenerative changes as described above. Reading Location: [facility] Chest X-Ray 11/26/24 17:10 IMPRESSION: No radiographic evidence of an acute cardiopulmonary process Reading Location: [id number] Assessment & Plan Assessment/Plan (1) Frequent falls: (2) Generalized weakness: (3) Ambulatory dysfunction: (4) Closed head injury without concussion: QUALIFIERS: Encounter type: initial encounter Qualified Code(s): S09.90XA - Unspecified injury of head, initial encounter (5) Paroxysmal atrial fibrillation: (6) Morbid obesity with BMI of 40.0-44.9, adult: PLAN: Plan 1. Frequent Falls with Generalized Weakness, Ambulatory Dysfunction and Closed Head Injury - Admit to general medical floor with telemetric monitoring under observation status. Give acetaminophen prn for [id number] (level 1-5/10) pain or fever. Give oxycodone prn for severe (level 6-10/10) pain. PT/OT and Case Management to consult and treat on rounds in the AM for further recommendations with help appreciated in advance. 2. PAF; on diltiazem and apixaban BID complicating #1 - Patient is a becoming apoor candidate for anticoagulation due to increasingly frequent falls. Apixabanwill need to be stopped if this trend of frequent falls continues as the risks outweigh any potential benefits. 3. Morbid (class III) obesity; with BMI 41.3 this admission adding to the burden of disease outlined in #1 & #2 - Weight loss will be recommended. Check TSH. This complicates her case and may hamper recovery. 4. Essential hypertension; on carvedilol twice daily - Maintain carvedilol as previous. 5. Hyperlipidemia; on atorvastatin - Hold statin in case of myotoxicity contributing to #1. Replace with alternative agent if her symptoms improve off statin. 6. Hypothyroidism; on levothyroxine - Continue levothyroxine and check TSH. 7. CAD; s/p LA - Noted. 8. GERD; on omeprazole - Maintain PPI. 9. OA - We will follow pain regimen and scales outlined in #1. 10. DVT prophylaxis - Patient already on apixaban for #2 which will be reluctantly continued for now. Total time: Approximately (but not less than) 70 minutes. Charges/Coding Visit Charges OBSV E&M: 64898 Observ/hosp same date L2 11/27/24 0639 <Electronically signed by Reynaldo Oliva DO> Cosigner Signature (if applicable): CC: Dr. Brayan Thompson MD; Dr. Reynaldo Oliva DO~ Signed [facility] Work Phone: [phone]) 658-828809-28-2025 Discharge summary Author [facility] Note Date/Time November 27, 2024 12:49am [facility] Medical Records Department [address] [place] [address] Emergency Department Summary 11/26/24 MR#: [id number] Acct: [id number] Name: AYAN CARRILLO Rep #:[id number] : 1945 79 From: Stephanie Solomon PCP: Dr. Brayan Thompson MD Status :ADM HERSON Location: [address] History of Present Illness Chief Complaint: Head Injury Informant: patient Narrative Narrative: Patient is a 79-year-old female with history of atrial fibrillation (on Eliquis), hypertension, coronary artery disease, hyperlipidemia, GERD and hypothyroidism presenting with generalized weakness with fall and head injury. Patient states she was going to the bathroom today when her legs felt weak and she fell to the ground. She did not lose conscious. She denies feeling she wasabout to pass out. She did hit her head as well as her right posterior shoulderarea. She was unable to get herself up. She pushed her life alert and was brought in by EMS. Patient states she lives at home with her daughter but her daughter was at work so she was home alone. She states this was her second fallthis week. She has has been having intermittent lightheadedness. She has had dyspnea on exertion which has been worsening this week. She states she can evenwalk to different room without having to take a break and rest. She feels shortof breath talking. States she has chronic swelling of her legs but does not feel it is any worse than normal. Does not check her weights recently. States has been trying to drink a lot of fluids as her medications make her get dehydrated.. Patient also notes that she talked to cardiology this week becauseshe felt that her carvedilol was too strong and they cut her dose in 2:30 or 3 days ago. Patient states she does not take diuretic but was under the impression that her Eliquis was diuretic. She denies any GI or symptoms. Noother complaints or concerns reported at this time. Does report some nasal congestion this week. Denies any fevers or acute cough [facility] Medical History (Updated 11/27/24 @ 00:[address] Stephanie Kincaid, DO) Morbid obesity with BMI of 40.0-44.9, adult Hypothyroidism GERD (gastroesophageal reflux disease) GI bleed Atrial fibrillation Hypertension Myocardial infarction Obesity Essential (primary) hypertension Atherosclerotic heart disease of kenaitze coronary artery without angina pectoris Hyperlipidemia GERD (gastroesophageal reflux disease) Osteoarthritis Home Medications ?Medication ?Instructions ?Recorded ?Last Taken ?Type aspirin 81 mg chewable tablet 81 mg PO QHS 10/25/15 History nitroglycerin 0.4 mg sublingual 0.4 mg sublingual Q5M PRN Chest 08/10/23 10/25/24 Rx tablet Pain #25 tabs atorvastatin 40 mg tablet 40 mg PO QHS #90 tabs 10/24/24 Rx omeprazole 20 mg capsule,delayed 20 mg PO DAILY #90 ca ps 08/01/24 10/25/24 Rx release lisinopril 20 mg tablet 20 [...] 595 mg PO DAILY 10/25/24 History tablet carvedilol 25 mg tablet 25 mg PO BID 11/26/24 Unknow n History Allergy/AdvReac Type Severity Reaction Status Date / Time hydrochlorothiazide AdvReac Intermediate Constipatio Verified 11/26/24 15:58 n Family History Father CAD (coronary artery disease) Mother CHF (congestive heart failure) Sister Hypertension Surgical History History of appendectomy History of cholecystectomy History of left heart catheterization (06/04/08) History of coronary angioplasty (09/20/07) History of laparoscopic cholecystectomy History of total hysterectomy Social History housing: house Smoking Status: Never smoker alcohol intake: never substance use type: does not use ROS ROS ED Constitutional Constitutional ED: Denies chills or fever(s) ENT ENT ED: Reports other Details: dry mouth Cardiovascular Cardiovascular: Denies chest pain Respiratory/Chest Respiratory/Chest: Reports cough, dyspnea and dyspnea on exertion; Denies sputum Gastrointestinal Gastrointestinal: Denies abdominal pain, nausea or vomiting Genitourinary Genitourinary ED: Denies dysuria Musculoskeletal Musculoskeletal: Reports other Details: right shoulder pain Integumentary Denies Abrasions or rash Neurologic Neurologic: Reports weakness; Denies headache(s) or paresthesias Psychiatric Psychiatric: Reports anxiety Hematologic/Lymphatic Hematologic/Lymphatic: Reports easy bleeding, easy bruising and other Details: On Eliquis EXAM Physical Exam Const Vital Signs: 11/26/24 15:56 11/26/24 16:00 11/26/24 16:00 Temperature 97.6 F L Temperature Source Oral Pulse Rate 72 Pulse Rate [Lying] Pulse Rate [Sitting (for 1 minute prior to obtaining)] Pulse Rate [Standing (for 1 minute prior to obtaining)] Respiratory Rate 18 Respiratory Effort Normal Non-Labored Normal Non-Labored Respiratory Depth Normal Respiratory Pattern Normal Blood Pressure 148/103 H Blood Pressure [Lying] Blood Pressure [Sitting (for 1 minute prior to obtaining)] Blood Pressure [Standing (for 1 minute prior to obtaining)] Blood Pressure Mean 118 Blood Pressure Mean [Lying] Blood Pressure Mean [Sitting (for 1 minute prior to obtaining)] Blood Pressure Mean [Standing (for 1 minute prior to obtaining)] Pulse Ox 94 Oxygen Delivery Method Room Air Room Air 11/26/24 17:56 11/26/24 19:00 11/26/24 20:11 Temperature Temperature Source Pulse Rate 66 83 Pulse Rate [Lying] 69 Pulse Rate [Sitting (for 1 minute prior to obtaining)] 82 Pulse Rate [Standing (for 1 minute prior to obtaining)] 78 Respiratory Rate 18 Respiratory Effort Respiratory Depth Respiratory Pattern Blood Pressure 146/84 H 148/83 H Blood Pressure [Lying] 144/82 H Blood Pressure [Sitting (for 1 minute prior to obtaining)] 120/82 H Blood Pressure [Standing (for 1 minute prior to obtaining)] 122/46 H Blood Pressure Mean 104 104 Blood Pressure Mean [Lying] 102 Blood Pressure Mean [Sitting (for 1 minute prior to obtaining)] 94 Blood Pressure Mean [Standing (for 1 minute prior to obtaining)] 71 Pulse Ox 94 94 Oxygen Delivery Method Room Air Room Air 11/26/24 20:13 Temperature 97.6 F L Temperature Source Pulse Rate 82 Pulse Rate [Lying] Pulse Rate [Sitting (for 1 minute prior to obtaining)] Pulse Rate [Standing (for 1 minute prior to obtaining)] Respiratory Rate 20 H Respiratory Effort Respiratory Depth Respiratory Pattern Blood Pressure 120/82 H Blood Pressure [Lying] Blood Pressure [Sitting (for 1 minute prior to obtaining)] Blood Pressure [Standing (for 1 minute prior to obtaining)] Blood Pressure Mean 94 Blood Pressure Mean [Lying] Blood Pressure Mean [Sitting (for 1 minute prior to obtaining)] Blood Pressure Mean [Standing (for 1 minute prior to obtaining)] Pulse Ox 94 Oxygen Delivery Method Positive well nourished and well developed General Appearance ED: well developed and NAD HEENT Reports dry mucous membranes HEENT Narrative: No hemotympanum. No septal hematoma present. No signs of trauma to the scalp. Mouth ED: Yes dry mucous membranes Mouth: dry mucous membranes Eyes PERRL Neck supple and no JVD Chest Wall inspection of chest normal and palpation of chest normal Resp Resp Narrative: Tachypneic with conversational dyspnea. Auscultation: Negative for rhonchi, wheezes or diminished lung sounds Cardio regular rate, regular rhythm and no murmurs GI normal to inspection, nondistended, normoactive bowel sounds and non-tender Extremity normal to inspection Extremity Narrative: Pitting edema up to the knees present. Patient points to her right posterior shoulder as where she hit when she landed. There is no associated abrasion. Nopinpoint bony tenderness over the clavicle or shoulder. Normal range of motion of the shoulder. Neuro oriented x3, CN's II-XII intact bilaterally and no sensory deficits noted Sensorium / Orientation: alert Motor Exam: strength 5/5 throughout and general weakness Psych mental status grossly normal Mood & Affect: anxious Skin no rashes or lesions noted and no wounds MDM MDM MDM Narrative Medical decision making narrative: Patient evaluated for generalized weakness and fall. She is coming from home. There is her second fall this week. She did hit her head is on anticoagulation with Coumadin. She does complain of worsening shortness of breath/dyspnea on exertion. Differential includes but not limited to intracranial hemorrhage, cervical spinefracture, pneumonia, pneumothorax, pleural effusion, debility, CHF exacerbation,YEIMY, urinary tract infection, pneumonia, symptomatic anemia. CBC, coags, BMP largely unremarkable. High-sensitivity troponin minimally elevated at 28 but on repeat is 27. BNP is normal at 517. Urinalysis shows contamination is not consistent with infection. Chest x-ray reviewed by myself as well as radiology does not show any acute process. EKG does not show any acute ischemic changes. Patient did not have any hypoxia in the emergency room. She is ambulated and inthe ER and while she does not desaturate she is incredibly weak and was falls tothe ground after taking a couple steps. She is quite tachypneic with this. It is unclear if she is having anxiety associated with this as well. Due to her debility, and inability to ambulate even with assistance of a rollator I do think she would benefit from admission for further workup and PT/OT evaluation. Patient and her daughter are quite agreeable with this plan of care. Case discussed with hospitalist for admission. Pulmonary emboli considered however patient is anticoagulant Eliquis so low suspicion for PE as a cause of her symptoms Lab Data Attestation: I reviewed the patient's lab results. Labs: Laboratory Results - last 24 hr 11/26/24 11/26/24 11/26/24 16:45 16:50 18:40 WBC 7.7 RBC 4.63 Hgb 13.7 Hct 41.7 MCV 90.1 MCH 29.6 MCHC 32.9 RDW Std Deviation 43.5 RDW Coeff of Cory 13.2 Plt Count 227 MPV 9.3 Immature Gran % (Auto) 0.300 Neut % (Auto) 79.7 H Lymph % (Auto) 9.7 L Starke % (Auto) 9.2 Eos % (Auto) 0.8 Baso % (Auto) 0.3 Absolute Neuts (auto) 6.2 Absolute Lymphs (auto) 0.75 L Nucleated RBC % 0 PT 15.8 H INR 1.2 APTT 29.2 Sodium 138 Potassium 4.8 Chloride 103 Carbon Dioxide 25.9 Anion Gap 9 BUN 16 Creatinine 0.53 L Estim Creat Clear Calc 57.00 Est GFR (MDRD) Non-Af 93 BUN/Creatinine Ratio 30.3 H Glucose 122 H Hemoglobin A1c 5.6 Calcium 10.1 Magnesium Troponin T High Sens 28 H D Troponin T Hi Sens 2 Hr 27 H Troponin T Hi Sens 4Hr NT pro BNP II 517 Vitamin B12 TSH Urine Color Yellow Urine Clarity Sl. Cloudy Urine pH 6.5 Ur Specific Lee 1.015 Urine Protein 15 H Urine Glucose (UA) Normal Urine Ketones Negative Urine Occult Blood 10 H Urine Nitrite Negative Urine Bilirubin Negative Urine Urobilinogen Normal Ur Leukocyte Esterase Negative Urine RBC 0-5 SEEN Urine WBC 0-5 SEEN Ur Squamous Epith Cells 10-25 SEEN Amorphous Sediment 1+ Urine Bacteria 2+ Urine Mucus 0 SEEN Urine Opiates Screen NEGATIVE U Buprenorphine Qual NEGATIVE Ur Oxycodone Screen NEGATIVE Urine Methadone Screen NEGATIVE Urine Fentanyl Screen NEGATIVE Ur Barbiturates Screen NEGATIVE Ur Phencyclidine Scrn NEGATIVE Ur Amphetamines Screen NEGATIVE U Benzodiazepines Scrn NEGATIVE Urine Cocaine Screen NEGATIVE U Cannabinoids Screen NEGATIVE 11/26/24 20:25 WBC RBC Hgb Hct MCV MCH MCHC RDW Std Deviation RDW Coeff of Cory Plt Count MPV Immature Gran % (Auto) Neut % (Auto) Lymph % (Auto) Starke % (Auto) Eos % (Auto) Baso % (Auto) Absolute Neuts (auto) Absolute Lymphs (auto) Nucleated RBC % PT INR APTT Sodium Potassium Chloride Carbon Dioxide Anion Gap BUN Creatinine Estim Creat Clear Calc Est GFR (MDRD) Non-Af BUN/Creatinine Ratio Glucose Hemoglobin A1c Calcium Magnesium 2.1 Troponin T High Sens Troponin T Hi Sens 2 Hr Troponin T Hi Sens 4Hr 29 H NT pro BNP II Vitamin B12 439 TSH < 0.005 L Urine Color Urine Clarity Urine pH Ur Specific Lee Urine Protein Urine Glucose (UA) Urine Ketones Urine Occult Blood Urine Nitrite Urine Bilirubin Urine Urobilinogen Ur Leukocyte Esterase Urine RBC Urine WBC Ur Squamous Epith Cells Amorphous Sediment Urine Bacteria Urine Mucus Urine Opiates Screen U Buprenorphine Qual Ur Oxycodone Screen Urine Methadone Screen Urine Fentanyl Screen Ur Barbiturates Screen Ur Phencyclidine Scrn Ur Amphetamines Screen U Benzodiazepines Scrn Urine Cocaine Screen U Cannabinoids Screen Radiography Chest X-Ray - ED: 2 View, Read by ED Physician, Read by Radiologist and No AcuteDisease Diagnostic Testing: Clinical Impression(s) from Imaging Studies Brain CT 11/26/24 16:28 IMPRESSION: No acute traumatic findings. Chronic/degenerative changes as described above. Reading Location: [facility] Cervical Spine CT 11/26/24 17:01 IMPRESSION: No acute traumatic findings. Chronic/degenerative changes as described above. Reading Location: [facility] Chest X-Ray 11/26/24 17:10 IMPRESSION: No radiographic evidence of an acute cardiopulmonary process Reading Location: [id number] Rhythm Strip Rhythm Strip: Sinus Rhythm Rate: 70 Ectopy: None EKG Initial EKG: Attestation: I personally reviewed and interpreted this EKG as follows: Interpretation: Sinus Rhythm Comments: Normal sinus rhythm at a rate of 70 bpm with sinus arrhythmia Normal axis Normal intervals Normal ST segments No significant change compared to prior EKG on 10/26/2024 Management Discussion w/another healthcare provider: Hospitalist Discharge Plan Dx/Rx/DC Orders Clinical Impression: Frequent falls, Ambulatory dysfunction, Closed head injury without concussion, Generalized weakness, Current use of rn long term care anticoagulation Disposition Disposition: Acute Care [facility] Discharge Date/Time: 11/26/24 21:24 What to do if you have Problems For any increased pain, shortness of breath, bleeding, nausea or vomiting, chestpain, or any unexpected problems, contact your Primary Care Provider. Call [facility] ([phone]) or report to the closest Emergency Room. Call 911 if necessary. 11/27/24 0049 <Electronically signed by Stephanie Kincaid DO> Cosigner Signature (if applicable): CC: Dr. Brayan Thompson MD ~ Signed [facility] Work Phone: 1([phone] 815-133909-27-2025 Radiology Diagnostic study [facility]09-27-2025 Radiology Diagnostic study [facility]09-27-2025 Radiology Diagnostic study [facility] 11-26-2024 Discharge summary Author [facility] Note Date/Time November 27, 2024 12:49am [facility] Medical Records Department [address] [place] [address] Emergency Department Summary 11/26/24 MR#: [id number] Acct: [id number] Name: AYAN CARRILLO Rep #:[id number] : 1945 79 From: Stephanie Solomon PCP: Dr. Brayan Thompson MD Status :ADM HERSON Location: [place] [address] HPI History of Present Illness Chief Complaint: Head Injury Informant: patient Narrative Narrative: Patient is a 79-year-old female with history of atrial fibrillation (on Eliquis), hypertension, coronary artery disease, hyperlipidemia, GERD and hypothyroidism presenting with generalized weakness with fall and head injury. Patient states she was going to the bathroom today when her legs felt weak and she fell to the ground. She did not lose conscious. She denies feeling she wasabout to pass out. She did hit her head as well as her right posterior shoulderarea. She was unable to get herself up. She pushed her life alert and was brought in by EMS. Patient states she lives at home with her daughter but her daughter was at work so she was home alone. She states this was her second fallthis week. She has has been having intermittent lightheadedness. She has had dyspnea on exertion which has been worsening this week. She states she can evenwalk to different room without having to take a break and rest. She feels shortof breath talking. States she has chronic swelling of her legs but does not feel it is any worse than normal. Does not check her weights recently. States has been trying to drink a lot of fluids as her medications make her get dehydrated.. Patient also notes that she talked to cardiology this week becauseshe felt that her carvedilol was too strong and they cut her dose in 2:30 or 3 days ago. Patient states she does not take diuretic but was under the impression that her Eliquis was diuretic. She denies any GI or symptoms. Noother complaints or concerns reported at this time. Does report some nasal congestion this week. Denies any fevers or acute cough [facility] Medical History (Updated 11/27/24 @ 00:[address] Stephanie Kincaid, DO) Morbid obesity with BMI of 40.0-44.9, adult Hypothyroidism GERD (gastroesophageal reflux disease) GI bleed Atrial fibrillation Hypertension Myocardial infarction Obesity Essential (primary) hypertension Atherosclerotic heart disease of kenaitze coronary artery without angina pectoris Hyperlipidemia GERD (gastroesophageal reflux disease) Osteoarthritis Home Medications ?Medication ?Instructions ?Recorded ?Last Taken ?Type aspirin 81 mg chewable tablet 81 mg PO QHS 10/25/15 History nitroglycerin 0.4 mg sublingual 0.4 mg sublingual Q5M PRN Chest 08/10/23 10/25/24 Rx tablet Pain #25 tabs atorvastatin 40 mg tablet 40 mg PO QHS #90 tabs 10/24/24 Rx omeprazole 20 mg capsule,delayed 20 mg PO DAILY #90 ca ps 08/01/24 10/25/24 Rx release lisinopril 20 mg tablet 20 [...] 595 mg PO DAILY 10/25/24 History tablet carvedilol 25 mg tablet 25 mg PO BID 11/26/24 Unknow n History Allergy/AdvReac Type Severity Reaction Status Date / Time hydrochlorothiazide AdvReac Intermediate Constipatio Verified 11/26/24 15:58 n Family History Father CAD (coronary artery disease) Mother CHF (congestive heart failure) Sister Hypertension Surgical History History of appendectomy History of cholecystectomy History of left heart catheterization (06/04/08) History of coronary angioplasty (09/20/07) History of laparoscopic cholecystectomy History of total hysterectomy Social History housing: house Smoking Status: Never smoker alcohol intake: never substance use type: does not use ROS ROS ED Constitutional Constitutional ED: Denies chills or fever(s) ENT ENT ED: Reports other Details: dry mouth Cardiovascular Cardiovascular: Denies chest pain Respiratory/Chest Respiratory/Chest: Reports cough, dyspnea and dyspnea on exertion; Denies sputum Gastrointestinal Gastrointestinal: Denies abdominal pain, nausea or vomiting Genitourinary Genitourinary ED: Denies dysuria Musculoskeletal Musculoskeletal: Reports other Details: right shoulder pain Integumentary Denies Abrasions or rash Neurologic Neurologic: Reports weakness; Denies headache(s) or paresthesias Psychiatric Psychiatric: Reports anxiety Hematologic/Lymphatic Hematologic/Lymphatic: Reports easy bleeding, easy bruising and other Details: On Eliquis EXAM Physical Exam Const Vital Signs: 11/26/24 15:56 11/26/24 16:00 11/26/24 16:00 Temperature 97.6 F L Temperature Source Oral Pulse Rate 72 Pulse Rate [Lying] Pulse Rate [Sitting (for 1 minute prior to obtaining)] Pulse Rate [Standing (for 1 minute prior to obtaining)] Respiratory Rate 18 Respiratory Effort Normal Non-Labored Normal Non-Labored Respiratory Depth Normal Respiratory Pattern Normal Blood Pressure 148/103 H Blood Pressure [Lying] Blood Pressure [Sitting (for 1 minute prior to obtaining)] Blood Pressure [Standing (for 1 minute prior to obtaining)] Blood Pressure Mean 118 Blood Pressure Mean [Lying] Blood Pressure Mean [Sitting (for 1 minute prior to obtaining)] Blood Pressure Mean [Standing (for 1 minute prior to obtaining)] Pulse Ox 94 Oxygen Delivery Method Room Air Room Air 11/26/24 17:56 11/26/24 19:00 11/26/24 20:11 Temperature Temperature Source Pulse Rate 66 83 Pulse Rate [Lying] 69 Pulse Rate [Sitting (for 1 minute prior to obtaining)] 82 Pulse Rate [Standing (for 1 minute prior to obtaining)] 78 Respiratory Rate 18 Respiratory Effort Respiratory Depth Respiratory Pattern Blood Pressure 146/84 H 148/83 H Blood Pressure [Lying] 144/82 H Blood Pressure [Sitting (for 1 minute prior to obtaining)] 120/82 H Blood Pressure [Standing (for 1 minute prior to obtaining)] 122/46 H Blood Pressure Mean 104 104 Blood Pressure Mean [Lying] 102 Blood Pressure Mean [Sitting (for 1 minute prior to obtaining)] 94 Blood Pressure Mean [Standing (for 1 minute prior to obtaining)] 71 Pulse Ox 94 94 Oxygen Delivery Method Room Air Room Air 11/26/24 20:13 Temperature 97.6 F L Temperature Source Pulse Rate 82 Pulse Rate [Lying] Pulse Rate [Sitting (for 1 minute prior to obtaining)] Pulse Rate [Standing (for 1 minute prior to obtaining)] Respiratory Rate 20 H Respiratory Effort Respiratory Depth Respiratory Pattern Blood Pressure 120/82 H Blood Pressure [Lying] Blood Pressure [Sitting (for 1 minute prior to obtaining)] Blood Pressure [Standing (for 1 minute prior to obtaining)] Blood Pressure Mean 94 Blood Pressure Mean [Lying] Blood Pressure Mean [Sitting (for 1 minute prior to obtaining)] Blood Pressure Mean [Standing (for 1 minute prior to obtaining)] Pulse Ox 94 Oxygen Delivery Method Positive well nourished and well developed General Appearance ED: well developed and NAD HEENT Reports dry mucous membranes HEENT Narrative: No hemotympanum. No septal hematoma present. No signs of trauma to the scalp. Mouth ED: Yes dry mucous membranes Mouth: dry mucous membranes Eyes PERRL Neck supple and no JVD Chest Wall inspection of chest normal and palpation of chest normal Resp Resp Narrative: Tachypneic with conversational dyspnea. Auscultation: Negative for rhonchi, wheezes or diminished lung sounds Cardio regular rate, regular rhythm and no murmurs GI normal to inspection, nondistended, normoactive bowel sounds and non-tender Extremity normal to inspection Extremity Narrative: Pitting edema up to the knees present. Patient points to her right posterior shoulder as where she hit when she landed. There is no associated abrasion. Nopinpoint bony tenderness over the clavicle or shoulder. Normal range of motion of the shoulder. Neuro oriented x3, CN's II-XII intact bilaterally and no sensory deficits noted Sensorium / Orientation: alert Motor Exam: strength 5/5 throughout and general weakness Psych mental status grossly normal Mood & Affect: anxious Skin no rashes or lesions noted and no wounds MDM MDM MDM Narrative Medical decision making narrative: Patient evaluated for generalized weakness and fall. She is coming from home. There is her second fall this week. She did hit her head is on anticoagulation with Coumadin. She does complain of worsening shortness of breath/dyspnea on exertion. Differential includes but not limited to intracranial hemorrhage, cervical spinefracture, pneumonia, pneumothorax, pleural effusion, debility, CHF exacerbation,YEIMY, urinary tract infection, pneumonia, symptomatic anemia. CBC, coags, BMP largely unremarkable. High-sensitivity troponin minimally elevated at 28 but on repeat is 27. BNP is normal at 517. Urinalysis shows contamination is not consistent with infection. Chest x-ray reviewed by myself as well as radiology does not show any acute process. EKG does not show any acute ischemic changes. Patient did not have any hypoxia in the emergency room. She is ambulated and inthe ER and while she does not desaturate she is incredibly weak and was falls tothe ground after taking a couple steps. She is quite tachypneic with this. It is unclear if she is having anxiety associated with this as well. Due to her debility, and inability to ambulate even with assistance of a rollator I do think she would benefit from admission for further workup and PT/OT evaluation. Patient and her daughter are quite agreeable with this plan of care. Case discussed with hospitalist for admission. Pulmonary emboli considered however patient is anticoagulant Eliquis so low suspicion for PE as a cause of her symptoms Lab Data Attestation: I reviewed the patient's lab results. Labs: Laboratory Results - last 24 hr 11/26/24 11/26/24 11/26/24 16:45 16:50 18:40 WBC 7.7 RBC 4.63 Hgb 13.7 Hct 41.7 MCV 90.1 MCH 29.6 MCHC 32.9 RDW Std Deviation 43.5 RDW Coeff of Cory 13.2 Plt Count 227 MPV 9.3 Immature Gran % (Auto) 0.300 Neut % (Auto) 79.7 H Lymph % (Auto) 9.7 L Starke % (Auto) 9.2 Eos % (Auto) 0.8 Baso % (Auto) 0.3 Absolute Neuts (auto) 6.2 Absolute Lymphs (auto) 0.75 L Nucleated RBC % 0 PT 15.8 H INR 1.2 APTT 29.2 Sodium 138 Potassium 4.8 Chloride 103 Carbon Dioxide 25.9 Anion Gap 9 BUN 16 Creatinine 0.53 L Estim Creat Clear Calc 57.00 Est GFR (MDRD) Non-Af 93 BUN/Creatinine Ratio 30.3 H Glucose 122 H Hemoglobin A1c 5.6 Calcium 10.1 Magnesium Troponin T High Sens 28 H D Troponin T Hi Sens 2 Hr 27 H Troponin T Hi Sens 4Hr NT pro BNP II 517 Vitamin B12 TSH Urine Color Yellow Urine Clarity Sl. Cloudy Urine pH 6.5 Ur Specific Lee 1.015 Urine Protein 15 H Urine Glucose (UA) Normal Urine Ketones Negative Urine Occult Blood 10 H Urine Nitrite Negative Urine Bilirubin Negative Urine Urobilinogen Normal Ur Leukocyte Esterase Negative Urine RBC 0-5 SEEN Urine WBC 0-5 SEEN Ur Squamous Epith Cells 10-25 SEEN Amorphous Sediment 1+ Urine Bacteria 2+ Urine Mucus 0 SEEN Urine Opiates Screen NEGATIVE U Buprenorphine Qual NEGATIVE Ur Oxycodone Screen NEGATIVE Urine Methadone Screen NEGATIVE Urine Fentanyl Screen NEGATIVE Ur Barbiturates Screen NEGATIVE Ur Phencyclidine Scrn NEGATIVE Ur Amphetamines Screen NEGATIVE U Benzodiazepines Scrn NEGATIVE Urine Cocaine Screen NEGATIVE U Cannabinoids Screen NEGATIVE 11/26/24 20:25 WBC RBC Hgb Hct MCV MCH MCHC RDW Std Deviation RDW Coeff of Cory Plt Count MPV Immature Gran % (Auto) Neut % (Auto) Lymph % (Auto) Starke % (Auto) Eos % (Auto) Baso % (Auto) Absolute Neuts (auto) Absolute Lymphs (auto) Nucleated RBC % PT INR APTT Sodium Potassium Chloride Carbon Dioxide Anion Gap BUN Creatinine Estim Creat Clear Calc Est GFR (MDRD) Non-Af BUN/Creatinine Ratio Glucose Hemoglobin A1c Calcium Magnesium 2.1 Troponin T High Sens Troponin T Hi Sens 2 Hr Troponin T Hi Sens 4Hr 29 H NT pro BNP II Vitamin B12 439 TSH < 0.005 L Urine Color Urine Clarity Urine pH Ur Specific Lee Urine Protein Urine Glucose (UA) Urine Ketones Urine Occult Blood Urine Nitrite Urine Bilirubin Urine Urobilinogen Ur Leukocyte Esterase Urine RBC Urine WBC Ur Squamous Epith Cells Amorphous Sediment Urine Bacteria Urine Mucus Urine Opiates Screen U Buprenorphine Qual Ur Oxycodone Screen Urine Methadone Screen Urine Fentanyl Screen Ur Barbiturates Screen Ur Phencyclidine Scrn Ur Amphetamines Screen U Benzodiazepines Scrn Urine Cocaine Screen U Cannabinoids Screen Radiography Chest X-Ray - ED: 2 View, Read by ED Physician, Read by Radiologist and No AcuteDisease Diagnostic Testing: Clinical Impression(s) from Imaging Studies Brain CT 11/26/24 16:28 IMPRESSION: No acute traumatic findings. Chronic/degenerative changes as described above. Reading Location: [facility] Cervical Spine CT 11/26/24 17:01 IMPRESSION: No acute traumatic findings. Chronic/degenerative changes as described above. Reading Location: [facility] Chest X-Ray 11/26/24 17:10 IMPRESSION: No radiographic evidence of an acute cardiopulmonary process Reading Location: [id number] Rhythm Strip Rhythm Strip: Sinus Rhythm Rate: 70 Ectopy: None EKG Initial EKG: Attestation: I personally reviewed and interpreted this EKG as follows: Interpretation: Sinus Rhythm Comments: Normal sinus rhythm at a rate of 70 bpm with sinus arrhythmia Normal axis Normal intervals Normal ST segments No significant change compared to prior EKG on 10/26/2024 Management Discussion w/another healthcare provider: Hospitalist Discharge Plan Dx/Rx/DC Orders Clinical Impression: Frequent falls, Ambulatory dysfunction, Closed head injury without concussion, Generalized weakness, Current use of rn long term care anticoagulation Disposition Disposition: Acute Care Hospital [facility] Discharge Date/Time: 11/26/24 21:24 What to do if you have Problems For any increased pain, shortness of breath, bleeding, nausea or vomiting, chestpain, or any unexpected problems, contact your Primary Care Provider. Call [facility] ([phone]) or report to the closest Emergency Room. Call 911 if necessary. 11/27/24 0049 <Electronically signed by Stephanie Kincaid DO> Cosign Signature (if applicable): CC: Dr. Brayan Thompson MD ~ Signed [facility] Work Phone: 1(450) 303-615708-27-2025 [facility]08-27-[address] [facility] Medical Records Department [address] [place] [address] Counseling Note - Pharmacy 10/26/24 1505 MR#: [id number] Acct: [id number] Name: AYAN CARRILLO Rep #:[id number] : 1945 79 From: Ladonna Duval PCP: Dr. Brayan Thompson MD Status :ADM HERSON Y Location: [address] Med Reconciliation Pharmacy Service has performed discharge medication reconciliation for this patient. The patient's discharge medication list was reviewed for discrepancies and discrepancies were resolved. Medications at Discharge Home Medications aspirin 81 mg chewable tablet 81 mg PO QHS 10/25/15 nitroglycerin 0.4 mg sublingual tablet 0.4 mg sublingual Q5M PRN Chest Pain #25 tabs 08/10/23 atorvastatin 40 mg tablet 40 mg PO QHS #90 tabs 08/01/24 omeprazole 20 mg capsule,delayed release 20 mg PO DAILY #90 caps 08/01/24 carvedilol 25 mg tablet 25 mg PO BID Dose has been increased #180 tabs 08/15/24 lisinopril 20 mg tablet 20 mg PO QHS #90 tabs 08/15/24 apixaban 5 mg tablet (Eliquis) 5 mg PO BID #60 tabs 09/29/24 diltiazem HCl 120 mg capsule,24 hr,extended release (Tiadylt ER) 120 mg PO QAM #30 caps 10/14/24 levothyroxine 75 mcg tablet 75 mcg PO DAILY 10/25/24 potassium gluconate 595 mg (99 mg) tablet 595 mg PO DAILY 10/25/24 10/26/24 1505 Date _ Ladonna Burnett Signature (if applicable): Date CC: ~ Signed [facility]08-27-2025 Discharge summary [facility] Medical Records Department [address] [place] [address] Instructions for Home/Discharge Instructions 10/26/24 1416 MR#: [id number] Acct: [id number] Name: AYAN CARRILLO Rep #:[id number] : 1945 79 From: Seth draper MD PCP: Dr. Brayan Thompson MD Status :ADM HERSON Discharge Instructions DC O2, CPAP, BIPAP needs Home O2 Discharge instructions: No Dressing / Incision Discharge Activity: Return to Normal Activity Dressing / Incision Call your doctor if you observe: Fever of 101 or Higher, Shortness of breath, Dizziness, Fainting spells, Swelling in the ankles, Chest pain and Increased palpitations (irregular heartbeat) Follow Up Care Test Results: Test results from this visit will be discussed in further detail at your follow- up appointment, if applicable. Discharge Plan Admission Admit Date/Time: 10/25/24 17:18 Attending Provider: Seth Flores Primary Care Provider: Brayan Thompson Consulting Providers: Aranza Little Discharge Orders/Prescriptions Prescriptions: Continued nitroglycerin 0.4 mg tablet, sublingual 0.4 mg [...] 120 mg PO QAM Qty: 30 3RF Referrals / Follow Up: Brayan Thompson MD [Primary Care Provider] - Within 1 Week Care Physician,No Primary [Non-Staff] - Disposition Disposition (needs filled in before D/C Order can be placed): Home, Self Care 10/26/24 1420Seth Flores MD CC: Dr. Brayan Thompson MD; Dr. Aranza Little MD ~ Signed [facility]08-26-2025 History and physical note Author Aranza Little [facility] Note Date/Time October 25, 2024 5: 30pm [facility] Medical Records Department [address] [place] [address] H&P Exam - Hospitalist 10/25/24 1717 MR#: [id number] Acct: [id number] Name: AYAN CARRILLO Rep #:[id number] : 1945 79 From: Aranza Little MD PCP: Dr. Brayan Thompson MD Status :ADM HERSON Location: [place] [id number] HPI - General General Date of Admission: 10/25/24 Date of Service: 10/25/24 Chief Complaint: Chest pain HPI Narrative AYAN CARRILLO, is a 79-year-old female history of hypothyroidism, hypertension, A-fib, GERD presented [facility] ED 10/25/2024 due to chest pressure and tightness. She was here several days ago for similar symptoms but ultimately was discharged home in stable condition. This morning she ate and then developed chest pressure and tightness, it is not exertional and did not improve with nitro. No shortness of breath or other acute complaints. In the ED patient afebrile, heart rate of 83 and blood pressure 119/84, respiratory rate 16 and pulse ox 94% on room air. CBC with normal white count and hemoglobin, troponin of 21 with repeat of 15. CMP with a BUN of 16 creatinine 0.52, glucose 141. Chest x-ray no significant change from prior. Given patient's recurrent episode of chest pain cardiology contacted and recommended admission for stress test and to hold Eliquis in the event she needs a heart cath. Hospitalist contacted for admission. Patient evaluated bedside with daughter present. Patient fairly poor historian but sounds as though on Thursday she had an episode for about an hour where she had chest and back pain and also felt like her heart was racing which resolved on its own, today had the chest pressure and tightness after eating and noted some dizziness but daughter reports she frequently gets dizzy when she takes her medications though they have been trying to increase her protein intake as this seems to help. Patient additionally said on Thursday she had what seemed to be some blood in her urine and has also been complaining of black tarry stools over the past 2 to 3 weeks though over the weekend they seemed to be improving, denies any shortness of breath or cough, no fevers or chills, denies burning on urination, no nausea, noabdominal pain. Does have some swelling in her legs but notes that happens whenshe has not moved around much [facility] Medical History (Updated 10/25/24 @ 16:16 by Mindy Guadalupe) Atherosclerotic heart disease of kenaitze coronary artery without angina pectoris Atrial fibrillation Essential (primary) hypertension GERD (gastroesophageal reflux disease) GERD (gastroesophageal reflux disease) GI bleed Hyperlipidemia Hypertension Hypothyroidism Morbid obesity with BMI of 40.0-44.9, adult Myocardial infarction Obesity Osteoarthritis Home Medications ?Medication ?Instructions ?Recorded ?Last Taken [...] (congestive heart failure) Sister Hypertension Surgical History (Updated 10/25/24 @ 16:16 by Mindy Guadalupe) History of appendectomy History of cholecystectomy History of coronary angioplasty (09/20/07) History of laparoscopic cholecystectomy History of left heart catheterization (06/04/08) History of total hysterectomy Social History (Updated 10/25/24 @ 12:06 by Annette Chacon) housing: house Smoking Status: Never smoker alcohol intake: never substance use type: does not use ROS ROS Narrative General: Denies fever/chills HENT: Denies headache, denies stuffy nose, denies sore throat EYES: Denies changes in vision Resp: Denies cough, denies shortness of breath Cardiac: Chest pressure and tightness resolved at present GI: Denies abdominal pain, had some dark tarry stools that are improving, deniesnausea/vomiting : Had some blood in urine over the weekend per patient and daughter that is now clear Extremity: Reports some swelling in legs MSK: Some generalized weakness from not being able to get up and move around Neuro: Denies any numbness/tingling Heme: Does have some bruising from blood draws Skin: Denies rashes Psychiatric: No complaints voiced Vital Signs Vital Signs Vital Signs: 10/25/24 12:05 10/25/24 12:05 10/25/24 13:05 Temperature 97.8 F Temperature Source Oral Pulse Rate 83 80 Respiratory Rate 16 18 Respiratory Effort Normal Non-Labored Blood Pressure 119/84 H 127/80 H Blood Pressure Mean 95 95 Pulse Ox 94 99 Oxygen Delivery Method Room Air 10/25/24 14:03 10/25/24 15:00 10/25/24 16:00 Temperature Temperature Source Pulse Rate 80 66 66 Respiratory Rate 18 Respiratory Effort Blood Pressure 125/80 H 131/70 H 132/80 H Blood Pressure Mean 95 90 97 Pulse Ox 100 99 100 Oxygen Delivery Method 10/25/24 16:17 10/25/24 17:00 Temperature 98 F Temperature Source Pulse Rate 66 65 Respiratory Rate 18 Respiratory Effort Blood Pressure 132/80 H 128/70 H Blood Pressure Mean 97 89 Pulse Ox 100 100 Oxygen Delivery Method Weight Weight: 94.9 kg Body Mass Index (BMI) 42.3 Physical Exam Narrative General: Alert, somewhat poor historian, no apparent distress HEENT: Atraumatic, normocephalic Eyes: Anicteric, normal conjunctiva, extraocular movements grossly intact Neck: Supple Respiratory: Clear to auscultation bilaterally, normal respiratory effort Cardiovascular: Regular rate and rhythm GI: Soft, nontender, nondistended Extremities: Has some trace lower extremity pitting edema on top of nonpitting edema Musculoskeletal: Moving all extremities Neuro: No overt focal neurological deficits Skin: No rashes appreciated Psych: Cooperative Results Lab / Micro Data 10/25/24 12:12 10/25/24 12:12 Labs: Laboratory Results - last 24 hr 10/25/24 12:12: WBC 6.6, RBC 4.79, Hgb 14.2, Hct 43.7, MCV 91.2, MCH 29.6, MCHC 32.5, RDW Std Deviation 43.1, RDW Coeff of Cory 13.0, Plt Count 232, MPV 10.1, Immature Gran % (Auto) 0.500, Neut % (Auto) 77.1 H, Lymph % (Auto) 13.1 L, Starke % (Auto) 7.9, Eos % (Auto) 1.1, Baso % (Auto) 0.3, Absolute Neuts (auto) 5.1, Absolute Lymphs (auto) 0.86, Nucleated RBC % 0, Sodium 139, Potassium 4.2, Chloride 104, Carbon Dioxide 25.4, Anion Gap 10, BUN 16, Creatinine 0.52 L, Estim Creat Clear Calc 57.78, Est GFR (MDRD) Non-Af 94, BUN/Creatinine Ratio 31.8 H, Glucose 141 H, Calcium 10.2, Total Bilirubin 0.78, AST 17, ALT 14, Alkaline Phosphatase 103, Troponin T High Sens 21 H, Total Protein 6.0, Albumin 3.4, Globulin 2.7, Albumin/Globulin Ratio 1.2 10/25/24 15:08: Troponin T Hi Sens 2 Hr 15 H Imaging Radiology Impression Chest X-Ray 10/25/24 14:06 IMPRESSION: No significant change since last exam. Reading Location: [facility] Assessment & Plan Assessment/Plan (1) Chest pain: PLAN: Plan #Chest pain -Patient had 2 episodes 1 on Thursday and 1 today of a chest pressure and tightness -Does have history of coronary artery disease as well as hypertension hyperlipidemia -Trop 21 with repeat 15 -Admit to telemetry -Echo ordered -Aspirin -Statin -Lipid panel in AM -Stress test ordered for AM #Paroxysmal Atrial Fibrillation -Rate control: Diltiazem and Coreg -Anticoagulation: Holding Eliquis in the event patient needs cath #Dark stools and possible blood in urine - Patient denied any burning on urination or urinary frequency but noted some blood in her urine on Thursday that is since completely resolved -Also notes some dark tarry stools for 2 to 3 weeks and reports she is supposed to give a stool sample outpatient to assess for blood but has not been able to yet -Will order fecal occult especially she is going to need to be on any antiplatelets or anticoagulation -Continue PPI -Also order urine #Hx of CAD -w/ previous stenting, workup as above -Continue home medications, holding Eliquis #Hypertension - Continue home medications #Hypothyroidism -Continue Synthroid #GERD -Continue PPI #DVT ppx: SCDs Aranza Little MD Charges/Coding Visit Charges Inpatient E&M: 46029 Init Hosp L2 10/25/24 1730 <Electronically signed by Aranza Ltitle MD> Cosigner Signature (if applicable): CC: Dr. Brayan Thompson MD; Dr. Aranza Little MD~ Signed [facility] Work Phone: 1(904) 680-538608-26-2025 Discharge summary Author Jaylen Jack [facility] Note Date/Time October 25, 2024 4: 21pm [facility] Medical Records Department [address] [place] [address] Emergency Department Summary 10/25/24 MR#: [id number] Acct: [id number] Name: AYAN CARRILLO Rep #:[id number] : 1945 79 From: Jaylen Solomon PCP: Dr. Brayan Thompson MD Status :REG ER Location: ED HPI History of Present Illness Chief Complaint: Chest Pain PFSH [facility] Medical History Myocardial infarction Obesity Essential (primary) hypertension Atherosclerotic heart disease of kenaitze coronary artery without angina pectoris Hyperlipidemia GERD [...] hypertension, CAD, GERD, CAD status post stent, A- fib on Eliquis presents with with chest pain. [...] Cardiology (Dr. Franco), Internal Medicine (Dr. Little) MDM Narrative: The patient was initially hemodynamically stable, afebrile and nontoxic- appearing. Exam without focal cardiopulmonary abnormalities. Patient is [...] to PCU This note was generated with Andel dictation software. It may contain incorrectwords, spelling, [...] 77.1 H Lymph % (Auto) 13.1 L Starke % (Auto) 7.9 Eos % (Auto) 1.1 [...] significant change since last exam. Reading Location: [facility] Discharge Plan Triage Chief Complaint: Chest Pain [...] Care Physician,No Primary [Non-Staff] - Print Language: New Zealander What to do if you have Problems For any increased pain, shortness of breath, bleeding, nausea or vomiting, chestpain, or any unexpected problems, contact your Primary Care Provider. Call [facility] ([phone]) or report to the closest Emergency Room. Call 911 if necessary. 10/25/24 1621 <Electronically signed by Jaylen Jack DO> Cosigner Signature (if applicable): CC: Dr. Brayan Thompson MD ~ Signed [facility] Work Phone: 1(720) 157-982908-26-2025 History and physical note [facility] Medical Records Department [address] [place] [address] H&P Exam - Hospitalist 10/25/24 1717 MR#: [id number] Acct: [id number] Name: AYAN CARRILLO Rep #:[id number] : 1945 79 From: Aranza Little MD PCP: Dr. Brayan Thompson MD Status :ADM HERSON Location: [facility] [id number] HPI - General General Date of Admission: 10/25/24 Date of Service: 10/25/24 Chief Complaint: Chest pain HPI Narrative AYAN CARRILLO, is a 79-year-old female history of hypothyroidism, hypertension, A-fib, GERD presented [facility] ED 10/25/2024 due to chest pressure and tightness. She was here several days ago for similar symptoms but ultimately was discharged home in stable condition. This morning she ate and then developed chest pressure and tightness, it is not exertional and did not improve with nitro. No shortness of breath or other acute complaints. In the ED patient afebrile, heart rate of83 and blood pressure 119/84, respiratory rate 16 and pulse ox 94% on room air. CBC with normal white count and hemoglobin, troponin of 21 with repeat of 15. CMP with a BUN of 16 creatinine 0.52, glucose 141. Chest x-ray no significant change from prior. Given patient's recurrent episode of chest pain cardiology contacted and recommended admission for stress test and to hold Eliquis in the event she needs a heart cath. Hospitalist contacted for admission. Patient evaluated bedside with daughterpresent. Patient fairly poor historian but sounds as though on Thursday she had an episode for about an hour where she had chest and back pain and also felt like her heart was racing which resolved on its own, today had the chest pressure and tightness after eating and noted some dizziness but daughter reports she frequently gets dizzy when she takes her medications though they have been trying to increase her protein intake as this seems to help. Patient additionally said on Thursday she had what seemed to be some blood in her urine and has also been complaining of black tarry stools over the past 2 to 3 weeks though over the weekend they seemed to be improving, denies any shortness of breath or cough, no fevers or chills, denies burning on urination, no nausea, noabdominal pain. Does havesome swelling in her legs but notes that happens whenshe has not moved around much [facility] Medical History (Updated 10/25/24 @ 16:16 by Mindy Guadalupe) Atherosclerotic heart disease of kenaitze coronary artery without angina pectoris Atrial fibrillation Essential (primary) hypertension GERD (gastroesophageal reflux disease) GERD (gastroesophageal reflux disease) GI bleed Hyperlipidemia Hypertension Hypothyroidism Morbid obesity with BMI of 40.0-44.9, adult Myocardial infarction Obesity Osteoarthritis Home Medications ?Medication ?Instructions ?Recorded ?Last Taken [...] (congestive heart failure) Sister Hypertension Surgical History (Updated 10/25/24 @ 16:16 by Mindy Guadalupe) History of appendectomy History of cholecystectomy History of coronary angioplasty (09/20/07) History of laparoscopic cholecystectomy History of left heart catheterization (06/04/08) History of total hysterectomy Social History (Updated 10/25/24 @ 12:06 by Annette Chacon) housing: house Smoking Status: Never smoker alcohol intake: never substance use type: does not use ROS ROS Narrative General: Denies fever/chills HENT: Denies headache, denies stuffy nose, denies sore throat EYES: Denies changes in vision Resp: Denies cough, denies shortness of breath Cardiac: Chest pressure and tightness resolved at present GI: Denies abdominal pain, had some dark tarry stools that are improving, deniesnausea/vomiting : Had some blood in urine over the weekend per patient and daughter that is now clear Extremity: Reports some swelling in legs MSK: Some generalized weakness from not being able to get up and move around Neuro: Denies any numbness/tingling Heme: Does have some bruising from blood draws Skin: Denies rashes Psychiatric: No complaints voiced Vital Signs Vital Signs Vital Signs: 10/25/24 12:05 10/25/24 12:05 10/25/24 13:05 Temperature 97.8 F Temperature Source Oral Pulse Rate 83 80 Respiratory Rate 16 18 Respiratory Effort Normal Non-Labored Blood Pressure 119/84 H 127/80 H Blood Pressure Mean 95 95 Pulse Ox 94 99 Oxygen Delivery Method Room Air 10/25/24 14:03 10/25/24 15:00 10/25/24 16:00 Temperature Temperature Source Pulse Rate 80 66 66 Respiratory Rate 18 Respiratory Effort Blood Pressure 125/80 H 131/70 H 132/80 H Blood Pressure Mean 95 90 97 Pulse Ox 100 99 100 Oxygen Delivery Method 10/25/24 16:17 10/25/24 17:00 Temperature 98 F Temperature Source Pulse Rate 66 65 Respiratory Rate 18 Respiratory Effort Blood Pressure 132/80 H 128/70 H Blood Pressure Mean 97 89 Pulse Ox 100 100 Oxygen Delivery Method Weight Weight: 94.9 kg Body Mass Index (BMI) 42.3 Physical Exam Narrative General: Alert, somewhat poor historian, no apparent distress HEENT: Atraumatic, normocephalic Eyes: Anicteric, normal conjunctiva, extraocular movements grossly intact Neck: Supple Respiratory: Clear to auscultation bilaterally, normal respiratory effort Cardiovascular: Regular rate and rhythm GI: Soft, nontender, nondistended Extremities: Has some trace lower extremity pitting edema on top of nonpitting edema Musculoskeletal: Moving all extremities Neuro: No overt focal neurological deficits Skin: No rashes appreciated Psych: Cooperative Results Lab / Micro Data 10/25/24 12:12 10/25/24 12:12 Labs: Laboratory Results - last 24 hr 10/25/24 12:12: WBC 6.6, RBC 4.79, Hgb 14.2, Hct 43.7, MCV 91.2, MCH 29.6, MCHC 32.5, RDW Std Deviation 43.1, RDW Coeff of Cory 13.0, Plt Count 232, MPV 10.1, Immature Gran % (Auto) 0.500, Neut % (Auto) 77.1 H, Lymph % (Auto) 13.1 L, Starke % (Auto) 7.9, Eos % (Auto) 1.1, Baso % (Auto) 0.3, Absolute Neuts (auto) 5.1, Absolute Lymphs (auto) 0.86, Nucleated RBC % 0, Sodium 139, Potassium 4.2, [id number], Carbon Dioxide 25.4, Anion Gap 10, BUN 16, Creatinine 0.52 L, Estim Creat Clear Calc 57.78, Est GFR (MDRD) Non-Af 94, BUN/Creatinine Ratio 31.8 H, Glucose 141 H, Calcium 10.2, Total Bilirubin 0.78, AST 17, ALT 14, Alkaline Phosphatase 103, Troponin T High Sens 21 H, Total Protein 6.0, Albumin 3.4, Globulin 2.7, Albumin/Globulin Ratio 1.2 10/25/24 15:08: Troponin T Hi Sens 2 Hr 15 H Imaging Radiology Impression Chest X-Ray 10/25/24 14:06 IMPRESSION: No significant change since last exam. Reading Location: [id number] Assessment & Plan Assessment/Plan (1) Chest pain: PLAN: Plan #Chest pain -Patient had 2 episodes 1 on Thursday and 1 today of a chest pressure and tightness -Does have history of coronary artery disease as well as hypertension hyperlipidemia -Trop 21 with repeat 15 -Admit to telemetry -Echo ordered -Aspirin -Statin -Lipid panel in AM -Stress test ordered for AM #Paroxysmal Atrial Fibrillation -Rate control: Diltiazem and Coreg -Anticoagulation: Holding Eliquis in the event patient needs cath #Dark stools and possible blood in urine - Patient denied any burning on urination or urinary frequency but noted some blood in her urine onSaturday that is since completely resolved -Also notes some dark tarry stools for 2 to 3 weeks and reports she is supposed to give a stool sample outpatient to assess for blood but has not been able to yet -Will order fecal occult especially she is going to need to be on any antiplatelets or anticoagulation -Continue PPI -Also order urine #Hx of CAD -w/ previous stenting, workup as above -Continue home medications, holding Eliquis #Hypertension - Continue home medications #Hypothyroidism -Continue Synthroid #GERD -Continue PPI #DVT ppx: SCDs Aranza Little MD Charges/Coding Visit Charges Inpatient E&M: 99500 Init Hosp L2 10/25/24 1730 Cosigner Signature (if applicable): CC: Dr. Brayan Thompson MD; Dr. Aranza Little MD~ Signed [facility]08-26-2025 Discharge summary [facility] Medical Records Department [address] [place] [address] Emergency Department Summary 10/25/24 MR#: [id number] Acct: [id number] Name: AYAN CARRILLO Rep #:[id number] : 1945 79 From: Jaylen Solomon PCP: Dr. Brayan Thompson MD Status :REG ER Location: ED HPI History of Present Illness Chief Complaint: Chest [facility] Medical History Myocardial infarction Obesity Essential (primary) hypertension Atherosclerotic heart disease of kenaitze coronary artery without angina pectoris Hyperlipidemia GERD [...] hypertension, CAD, GERD, CAD status post stent, A- fib on Eliquis presents with with chest pain. Notes started this morning. She notes it began after food. Denies abdominal pain. No she took 2 nitro at home with minimal relief. No she got aspirin per EMS. She states shewoke this morning with chest pressure and tightness. Is not exertional. It is not sharp. Is not ripping or tearing. Is not associate with syncope. Denies diaphoresis or nausea associated. Denies associated shortness of breath. Denies new leg swelling, orthopnea or proximal nocturnal dyspnea. Deniesany bleeding diathesis. Denies cough fever or chills. [...] denies familyhistory or personal history of Connective tissuedisorders (Marfan's Syndrome, Srinivas Danlos etc) REVIEW OF [...] Cardiology (Dr. Franco), Internal Medicine (Dr. Little) [facility] Narrative: The patient was initially hemodynamically stable, afebrile and nontoxic- appearing. Exam without focal cardiopulmonary abnormalities. Patient is [...] and multiple cardiovascular comorbidities patient will be admittedto PCU observation under Dr. Little for stress [...] to PCU This note was generated with Andel dictation software. It may contain incorrectwords, spelling, [...] 77.1 H Lymph % (Auto) 13.1 L Starke % (Auto) 7.9 Eos % (Auto) 1.1 [...] significant change since last exam. Reading Location: [id number] Discharge Plan Triage Chief Complaint: Chest Pain [...] Care Physician,No Primary [Non-Staff] - Print Language: New Zealander What to do if you have Problems For any increased pain, shortness of breath, bleeding, nausea or vomiting, chestpain, or any unexpected problems, contact your Primary Care Provider. Call [facility] ([phone]) or report tothe closest Emergency Room. Call 911 if necessary. 10/25/24 1621 Cosigner Signature (if applicable): CC: Dr. Brayan Thompson MD ~ Signed [facility]08-26-2025 Radiology Diagnostic study note [facility] Imaging Services [address] [place], [place] [address] Chest 1 View (Portable) MR#: [id number] Acct: [id number] Name: AYAN CARRILLO Rep #: [id number] : 1945 F 79 From: Philipp Paz MD PCP: Dr. Brayan Thompson MD Status: REG ER Study:Chest 1 View (Portable) Date of Exam: 10/25/24 Exam# [id number] Ordering Dr: Rod Jack DO PROCEDURE: CHEST [...] significant change since last exam. Reading Location: [id number] CC: Dr. Brayan Thompson MD; Dr. Jaylen Jack DO ~ Street Car Mechanic: Signed [facility]08-26-2025 Discharge summary Author Jaylen Jack [facility] Note Date/Time October 25, 2024 4: 21pm [facility] Medical Records Department [address] [place] [address] Emergency Department Summary 10/25/24 MR#: [id number] Acct: [id number] Name: AYAN CARRILLO Rep #:[id number] : 1945 79 From: Jaylen Solomon PCP: Dr. Brayan Thompson MD Status :REG ER Location: ED HPI History of Present Illness Chief Complaint: Chest Pain [facility] Medical History Myocardial infarction Obesity Essential (primary) hypertension Atherosclerotic heart disease of kenaitze coronary artery without angina pectoris Hyperlipidemia GERD [...] hypertension, CAD, GERD, CAD status post stent, A- fib on Eliquis presents with with chest pain. [...] reviewed, Vital signs reviewed Constitutional: please see [facility] HENT: MMM Eyes: Pupils equal round [...] MEDICAL DECISION MAKING: Chief Complaint: please see [facility] External records reviewed: Reviewed prior cardiovascular testing: Reviewed echocardiogram from October 2023: Showed ejection fraction of 65. Factors affecting care: as per HPI Social determinants of health: Denies illicit drug use A-fib on Eliquis History obtained from others: EMS Consults: Cardiology (Dr. Franco), Internal Medicine (Dr. Little) [facility] Narrative: The patient was initially hemodynamically stable, afebrile and nontoxic- appearing. Exam without focal cardiopulmonary abnormalities. Patient is [...] to PCU This note was generated with Andel dictation software. It may contain incorrectwords, spelling, [...] 77.1 H Lymph % (Auto) 13.1 L Starke % (Auto) 7.9 Eos % (Auto) 1.1 [...] significant change since last exam. Reading Location: [facility] Discharge Plan Triage Chief Complaint: Chest Pain [...] Care Physician,No Primary [Non-Staff] - Print Language: New Zealander What to do if you have Problems For any increased pain, shortness of breath, bleeding, nausea or vomiting, chestpain, or any unexpected problems, contact your Primary Care Provider. Call [facility] ([phone]) or report to the closest Emergency Room. Call 911 if necessary. 10/25/24 1621 <Electronically signed by Jaylen Jack DO> Cosigner Signature (if applicable): CC: Dr. Brayan Thompson MD ~ Signed [facility] Work Phone: 1(934) 982-515208-22-2025 Radiology Diagnostic study note [facility] Imaging Services [address] [place] [address] Chest 1 View (Portable) MR#: [id number] Acct: [id number] Name: AYAN CARRILLO Rep #: [id number] : 1945 F 79 From: Remi Chu MD PCP: Care Physician,No Primary Status: REG ER Study:Chest 1 View (Portable) Date of Exam: 10/21/24 Exam# [id number] Ordering Dr: Donovan Pierson DO PROCEDURE: CHEST [...] by the degree of osteopenia. Reading Location: [place] [address] CC: Dr. Donovan Pierson DO; No Primary Care Physician ~ Street Car Mechanic: Signed [facility]07-11-2025 Discharge summary [facility] Medical Records Department [address] [place] [address] Emergency Department Summary 09/09/24 MR#: [id number] Acct: [id number] Name: AYAN CARRILLO Rep #:[id number] : 1945 79 From: Donovan Solomon PCP: [...] Essential (primary) hypertension Atherosclerotic heart disease of kenaitze coronary artery without angina pectoris Hyperlipidemia GERD [...] 70.3 H Lymph % (Auto) 17.2 L Starke % (Auto) 10.2 H Eos % (Auto) [...] IMPRESSION: No acute cardiopulmonary abnormality. Reading Location: [facility] Portable 1 view chest x-ray was obtained. [...] anormal sinus rhythm with arate of 64. OK interval, QRS interval, and QTc intervals were [...] 81 mg PO QHS Patient Comments: [facility] meloxicam 15 mg tablet 15 mg PO DAILY atorvastatin 40 mg tablet 40 mg PO QHS Qty: 90 3RF omeprazole 20 mg capsule,delayed release(DR/EC) 20 mg PO DAILY Qty: 90 3RF Primary Care Provider: Lilly Fletcher Referrals: Lilly Fletcher MD [Primary Care Provider] - Print Language: [place] Zealander What to do if you have Problems For any increased pain, shortness of breath, bleeding, nausea or vomiting, chestpain, or any unexpected problems, contact your Primary Care Provider. Call [facility] ([phone]) or report tothe closest Emergency Room. Call [...] cc: Dr. Lilly Fletcher MD ~* Signed [facility]07-11-2025 Radiology Diagnostic study note [facility] Imaging Services [address] [place] [id number] Chest 1 View (Portable) MR#: [id number] Acct: [id number] Name: AYAN CARRILLO Rep #: [id number] : 1945 F 79 From: Josey Grider MD PCP: Dr. Lilly Fletcher MD Status: REG ER Study:Chest 1 View (Portable) Date of Exam: 09/09/24 Exam# [id number] Ordering Dr: Donovan Pierson DO PROCEDURE: CHEST 1 VIEW (PORTABLE) 09/09/2024 REASON FOR EXAM: CHEST PAIN TECHNIQUE: Frontal view of the chest. COMPARISON: Chest radiograph on 08/02/2024 FINDINGS: Hardware: There is a medical claims examiner overlying the mediastinum, new from prior. Heart: Cardiac and mediastinal contours are stable. Aortic atherosclerosis. Lungs: No focal consolidation or significant pleural effusion. Bones: Degenerative changes are identified within the thoracic spine. Surgical clips in the right upper quadrant of the abdomen. RAD/Chest 1 View (Portable) IMPRESSION: No acute cardiopulmonary abnormality. Reading Location: [facility] CC: Dr. Lilly Fletcher MD; Dr. Donovan Pierson DO ~ Street Car Mechanic: Signed [facility]07-11-2025 Discharge summary Author Donovan Pierson [facility] Note Date/Time September 09, 2024 11:0 6pm [facility] Medical Records Department [address] [place] [address] Emergency Department Summary 09/09/24 MR#: [id number] Acct: [id number] Name: AYAN CARRILLO Rep #:[id number] : 1945 79 From: Donovan Solomon PCP: [...] Essential (primary) hypertension Atherosclerotic heart disease of kenaitze coronary artery without angina pectoris Hyperlipidemia GERD [...] 70.3 H Lymph % (Auto) 17.2 L Starke % (Auto) 10.2 H Eos % (Auto) [...] IMPRESSION: No acute cardiopulmonary abnormality. Reading Location: [facility] Portable 1 view chest x-ray was obtained. [...] sinus rhythm with a rate of 64. OK interval, QRS interval, and QTc intervals were [...] 81 mg PO QHS Patient Comments: [facility] meloxicam 15 mg tablet 15 mg PO DAILY atorvastatin 40 mg tablet 40 mg PO QHS Qty: 90 3RF omeprazole 20 mg capsule,delayed release(DR/EC) 20 mg PO DAILY Qty: 90 3RF Primary Care Provider: iLlly Fletcher Referrals: Lilly Fletcher MD [Primary Care Provider] - Print Language: New Zealander What to do if you have Problems For any increased pain, shortness of breath, bleeding, nausea or vomiting, chestpain, or any unexpected problems, contact your Primary Care Provider. Call [facility] ([phone]) or report to the closest Emergency Room. [...] vies follow-up with In outpatient setting. 09/09/24 4786<Electronically signed by Manny Clark DO> Cosigner Signature (if applicable): cc: Dr. Lilly Fletcher MD ~* Signed [facility] Work Phone: 1(319) 219-818606-16-2025 Evaluation note* Diagnosis Onset Date Resolution Status Admit Date Dizziness acute August 15 3:23pm ANTHONY (dyspnea on exertion) acute August 15, 2024 3:23pm 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 chronic August 15, 2024 3:23pm Essential (primary) hypertension chr onic August 15, 2024 3:23pm Hyperlipidemia chronic August 15, 2024 3:23pm Dizziness acute September 05, 2024 3:54pm ANTHONY (dyspnea on exertion) acute September 05, 2024 3:54pm 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 chronic September 05, 2024 3 :54pm Essential (primary) hypertension chr onic September 05, 2024 3:54pm Hyperlipidemia chronic September 05, 2024 3:54pm [facility] Work Phone: 1(642) 350-620806-16-2025 Evaluation note* Diagnosis Onset Date Resolution Status Admit Date Dizziness acute August 15 3:23pm ANTHONY (dyspnea on exertion) acute August 15, 2024 3:23pm 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 chronic August 15, 2024 3:23pm Essential (primary) hypertension chr onic August 15, 2024 3:23pm Hyperlipidemia chronic August 15, 2024 3:23pm Dizziness acute September 05, 2024 3:54pm ANTHONY (dyspnea on exertion) acute September 05, 2024 3:54pm 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 chronic September 05, 2024 3 :54pm Essential (primary) hypertension chr onic September 05, 2024 3:54pm Hyperlipidemia chronic September 05, 2024 3:54pm Chest pain acute October 25, 2 025 5:18pm [facility] Work Phone: 1(414) 326-679006-16-2025 Evaluation note* Diagnosis Onset Date Resolution Status Admit Date Dizziness acute August 15 3:23pm ANTHONY (dyspnea on exertion) acute August 15, 2024 3:23pm 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 chronic July 3:23pm Essential (primary) hypertension chronic August 15, 2024 3:23pm Hyperlipidemia chronic August 15, 2024 3:23pm Dizziness acute September 05, 2024 3:54pm ANTHONY (dyspnea on exertion) acute September 05, 2024 3:54pm 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 chronic August 3:54pm Essential (primary) hypertension chronic September 05, 2024 3 :54pm Hyperlipidemia chronic September 05, 2024 3:54pm Chest pain inactive October 25, 2 025 5:18pm Ambulatory dysfunction acute Se pt2024 8:27pm Closed head injury without concussion acute November 26, 2024 8:27pm Frequent falls acute November 26, 2024 8:27pm Generalized weakness acute Oct 8:27pm Morbid obesity with BMI of 40.0-44.9, adult acute November 26, 2024 8:27pm Paroxysmal atrial fibrillation acute November 26, 2024 8:27pm [facility] Work Phone: 1(417) 897-775806-03-2025 Discharge summary [facility] Medical Records Department [address] [place] [address] Emergency Department Summary 08/02/24 MR#: [id number] Acct: [id number] Name: AYAN CARRILLO Rep #:[id number] : 1945 79 From: Jaylen Solomon PCP: Dr. Lilly Fletcher MD Status:REG ER Location: ED HPI History of Present Illness Chief Complaint: Weakness [facility] Medical History (Updated 08/02/24 @ 06:[address] Jaylen Jack DO) Myocardial infarction Obesity Essential (primary) hypertension Atherosclerotic heart disease of kenaitze coronary artery without angina pectoris Hyperlipidemia GERD [...] Method Room Air Room Air Room Air [facility] Narrative Medical decision making narrative: HISTORY OF PRESENT ILLNESS: Chief complaint: Weakness, dizziness, lightheadedness Atrial female history of of CAD, LA status post stent, hypertension, hyperlipidemia presents with multiple symptoms with diffuse weakness mostly in the lower extremities. Denies chest pain, shortnessof breath. Denies cough fever chills. Denies headache or recent falls. Denies syncope. Has abdominal pain. Denies urinary frequency urgency or dysuria. Denies diarrhea melena hematochezia. Denies focal weakness REVIEW OF SYSTEMS: Pertinent positives: Diffuse weakness, dizziness and lightheadedness Pertinent negatives: as per [facility] PHYSICAL EXAM: Nursing triage notes reviewed, Vital signs reviewed Constitutional: please see [facility] HENT: MMM Eyes: Pupils equal round [...] wall motionabnormalities Factors affecting care: As per [facility] Social determinants of health: none History obtained from others: Family Consults: none [facility] Narrative: Patient was initially hemodynamically stable, afebrile [...] Discharge home This note was generated with Andel dictation software. It may contain incorrectwords, spelling, [...] 72.1 H Lymph % (Auto) 16.3 L Starke % (Auto) 9.1 Eos % (Auto) 1.5 [...] Sl. Cloudy Urine pH 6.0 Ur Specific Lee 1.020 Urine Protein 30 H Urine Glucose [...] evidence for acute brain abnormality. Reading Location: [place] [address] Chest X-Ray 08/02/24 04:55 IMPRESSION: Mild bilateral basilar atelectatic pulmonary changes. Reading Location: [place] [address] Discharge Plan Triage Chief Complaint: Weakness ED [...] an ultrasound of the heart(echocardiogram). Print Language: New Zealander What to do if you have Problems For any increased pain, shortness of breath, bleeding, nausea or vomiting, chestpain, or any unexpected problems, contact your Primary Care Provider. Call [facility] ([phone]) or report tothe closest Emergency Room. Call 911 if necessary. 08/02/24 0645 Cosigner Signature (if applicable): CC: Dr. Lilly Fletcher MD ~ Signed [facility]06-03-2025 Radiology Diagnostic study note [facility] Imaging Services [address] [place] [address] Chest 1 View (Portable) MR#: [id number] Acct: [id number] Name: GERARDOAYAN Kush Rep #: [id number] : 1945 F 79 From: Barbara Miranda MD PCP: Dr. Lilly Fletcher MD Status: REG ER Study:Chest 1 View (Portable) Date of Exam: 08/02/24 Exam# [id number] Ordering Dr: Rod Jack DO PROCEDURE: CHEST [...] bilateral basilar atelectatic pulmonary changes. Reading Location: [place] [address] CC: Dr. Lilly Fletcher MD; Dr. Jaylen Jack DO ~ Street Car Mechanic: Signed [facility]06-03-2025 Radiology Diagnostic study note [facility] Imaging Services [address] [place] [address] Brain/Head without Contrast MR#: [id number] Acct: [id number] Name: AYAN CARRILLO Rep #: [id number] : 1945 F 79 From: Barbara Miranda MD PCP: Dr. Lilly Fletcher MD Status: REG ER Study:Brain/Head without Contrast Date of Exa m: 08/02/24 Exam# [id number] Ordering Dr: Rod Jack DO PROCEDURE: BRAIN/HEAD [...] evidence for acute brain abnormality. Reading Location: [place] [address] CC: Dr. Lilly Fletcher MD; Dr. Jaylen Jack DO ~ Street Car Mechanic: Signed [facility]04-19-2025 Discharge summary [facility] Medical Records Department [address] [place] [address] Emergency Department Summary 06/18/24 MR#: [id number] Acct: [id number] Name: AYAN CARRILLO Rep #:[id number] : 1945 78 From: Jennifer MAJOR PCP: [...] pain, shortness of breath, palpitations or syncope. [facility] Medical History Obesity Essential (primary) hypertension Atherosclerotic heart disease of kenaitze coronary artery without angina pectoris Hyperlipidemia GERD [...] pain. No dysuria. States she just feels "off".] Exam is [well-appearing 78-year-old female. Family members [...] 71.1 H Lymph % (Auto) 18.1 L Starke % (Auto) 9.1 Eos % (Auto) 1.0 [...] pain. No dysuria. States she just feels "off".] Exam is [well-appearing 78-year-old female. Family members [...] 71.1 H Lymph % (Auto) 18.1 L Starke % (Auto) 9.1 Eos % (Auto) 1.0 [...] - Activity Restrictions/Additional Instructions: Follow-up with your skate maker to address your low blood pressure. Keep a daily log. Ice and takeTylenol as needed. If symptoms worsen come back to theER. Print Language: New Zealander Disposition Disposition: Home, Self Care What to do if you have Problems For any increased pain, shortness of breath, bleeding, nausea or vomiting, chestpain, or any unexpected problems, contact your Primary Care Provider. Call [facility] ([phone]) or report tothe closest Emergency Room. Call 911 if necessary. 06/18/242157 Cosigner Signature (if applicable): 06/18/242158 CC: Dr. Lilly Fletcher MD ~ Signed [facility]04-19-2025 Discharge summary Author Jennifer Meléndez [facility] Note Date/Time June 18, 2024 9:5 9pm [facility] Medical Records Department [address] [place] [address] Emergency Department Summary 06/18/24 MR#: [id number] Acct: [id number] Name: AYAN CARRILLO Rep #:[id number] : 1945 78 From: Jennifer MAJOR PCP: [...] <PEDRITO Delacruz - Last Filed: 06/18/24 21:58> PFSH Medical History Obesity Essential (primary) hypertension Atherosclerotic heart disease of kenaitze coronary artery without angina pectoris Hyperlipidemia GERD [...] Oxygen Delivery Method Room Air Room Air [facility] <PEDRITO Delacruz - Last Filed: 06/18/24 21:58> [facility] Narrative Medical decision making narrative: 78-year-old [...] pain. No dysuria. States she just feels "off".] Exam is [well-appearing 78-year-old female. Family members [...] 71.1 H Lymph % (Auto) 18.1 L Starke % (Auto) 9.1 Eos % (Auto) 1.0 [...] Hair MD - Last Filed: 06/18/24 21:59> [facility] MDM Narrative Medical decision making narrative: 78-year-old [...] pain. No dysuria. States she just feels "off".] Exam is [well-appearing 78-year-old female. Family members [...] 71.1 H Lymph % (Auto) 18.1 L Starke % (Auto) 9.1 Eos % (Auto) 1.0 [...] 81 mg PO QHS Patient Comments: [facility] omeprazole 20 mg capsule,delayed release(DR/EC) 20 mg PO DAILY Qty: 90 3RF furosemide 40 mg tablet 40 mg PO DAILY Qty: 90 3RF lisinopril 20 mg tablet 20 mg PO BID Qty: 180 4RF Primary Care Provider: Lilly Fletcher Referrals: iLlly Fletcher MD [Primary Care Provider] - Activity Restrictions/Additional Instructions: Follow-up with your skate maker to address your low blood pressure. Keep a daily log. Ice and take Tylenol as needed. If symptoms worsen come back to theER. Print Language: New Zealander Disposition Disposition: Home, Self Care What to do if you have Problems For any increased pain, shortness of breath, bleeding, nausea or vomiting, chestpain, or any unexpected problems, contact your Primary Care Provider. Call [facility] ([phone]) or report to the closest Emergency Room. Call 911 if necessary. 06/18/[id number] <Electronically signed by Jennifer MAJOR> Cosigner Signature (if applicable): 06/18/242158 <Electronically signed by Jay Hair MD> CC: Dr. Lilly Fletcher MD ~ Signed [facility] Work Phone: Consult note Author Ladonna Duval [facility] Note Date/Time October 26, 2024 3: 56pm [facility] Medical Records Department [address] [place] [address] Counseling Note - Pharmacy 10/26/24 1505 MR#: [id number] Acct: [id number] Name: AYAN CARRILLO Rep #:[id number] : 1945 79 From: Ladonna Duval PCP: Dr. Brayan Thompson MD Status :ADM HERSON Y Location: [place] [address] Pharmacy [place] Med Reconciliation Pharmacy Service has performed discharge medication reconciliation for this patient. The patient's discharge medication list was reviewed for discrepancies and discrepancies were resolved. Medications at Discharge Home Medications aspirin 81 mg chewable tablet 81 mg PO QHS 10/25/15 nitroglycerin 0.4 mg sublingual tablet 0.4 mg sublingual Q5M PRN Chest Pain #25 tabs 08/10/23 atorvastatin 40 mg tablet 40 mg PO QHS #90 tabs 08/01/24 omeprazole 20 mg capsule,delayed release 20 mg PO DAILY #90 caps 08/01/24 carvedilol 25 mg tablet 25 mg PO BID Dose has been increased #180 tabs 08/15/24 lisinopril 20 mg tablet 20 mg PO QHS #90 tabs 08/15/24 apixaban 5 mg tablet (Eliquis) 5 mg PO BID #60 tabs 09/29/24 diltiazem HCl 120 mg capsule,24 hr,extended release (Tiadylt ER) 120 mg PO QAM #30 caps 10/14/24 levothyroxine 75 mcg tablet 75 mcg PO DAILY 10/25/24 potassium gluconate 595 mg (99 mg) tablet 595 mg PO DAILY 10/25/24 10/26/24 1505 <Electronically signed by Ladonna Duval> Date _ Ladonna Duval Cosigner Signature (if applicable): Date CC: ~ Signed [facility] Work Phone: Discharge summary Author Jaylen Jack [facility] Note Date/Time August 02, 2024 6:45a m [facility] Medical Records Department [address] [place] [address] Emergency Department Summary 08/02/24 MR#: [id number] Acct: [id number] Name: AYAN CARRILLO Rep #:[id number] : 1945 79 From: Jaylen Solomon PCP: Dr. Lilly Fletcher MD Status:REG ER Location: ED HPI History of Present Illness Chief Complaint: Weakness [facility] Medical History (Updated 08/02/24 @ 06:[address] 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 Hyperlipidemia GERD [...] Method Room Air Room Air Room Air [facility] Narrative Medical decision making narrative: HISTORY OF PRESENT ILLNESS: Chief complaint: Weakness, dizziness, lightheadedness Atrial female history of of CAD, LA status post stent, hypertension, hyperlipidemia presents with [...] reviewed, Vital signs reviewed Constitutional: please see [facility] HENT: MMM Eyes: Pupils equal round [...] History obtained from others: Family Consults: none [facility] Narrative: Patient was initially hemodynamically stable, afebrile [...] Discharge home This note was generated with [employer] software. It may contain incorrectwords, spelling, and [...] 72.1 H Lymph % (Auto) 16.3 L Starke % (Auto) 9.1 Eos % (Auto) 1.5 [...] Sl. Cloudy Urine pH 6.0 Ur Specific Lee 1.020 Urine Protein 30 H Urine Glucose [...] evidence for acute brain abnormality. Reading Location: [place] [address] Chest X-Ray 08/02/24 04:55 IMPRESSION: Mild bilateral basilar atelectatic pulmonary changes. Reading Location: [place] [address] Discharge Plan Triage Chief Complaint: Weakness ED [...] an ultrasound of the heart(echocardiogram). Print Language: New Zealander What to do if you have Problems For any increased pain, shortness of breath, bleeding, nausea or vomiting, chestpain, or any unexpected problems, contact your Primary Care Provider. Call [facility] ([phone]) or report to the closest Emergency Room. Call 911 if necessary. 08/02/24 0645 <Electronically signed by Jaylen Jack DO> Cosigner Signature (if applicable): CC: Dr. Lilly Fletcher MD ~ Signed [facility] Work Phone: Discharge summary Author Seth Kotsonis [facility] Note Date/Time October 26, 2024 2: 20pm [facility] Medical Records Department [address] [place] [address] Instructions for Home/Discharge Instructions 10/26/24 1416 MR#: [id number] Acct: [id number] Name: AYAN CARRILLO Rep #:[id number] : 1945 79 From: Seth draper MD PCP: Dr. Brayan Thompson MD Status :ADM HERSON Discharge Instructions DC O2, CPAP, BIPAP needs Home O2 Discharge instructions: No Dressing / Incision Discharge Activity: Return to Normal Activity Dressing / Incision Call your doctor if you observe: Fever of 101 or Higher, Shortness of breath, Dizziness, Fainting spells, Swelling in the ankles, Chest pain and Increased palpitations (irregular heartbeat) Follow Up Care Test Results: Test results from this visit will be discussed in further detail at your follow- up appointment, if applicable. Discharge Plan Admission Admit Date/Time: 10/25/24 17:18 Attending Provider: Seth Flores Primary Care Provider: Brayan Thompson Consulting Providers: Aranza Little Discharge Orders/Prescriptions Prescriptions: Continued nitroglycerin 0.4 mg tablet, sublingual 0.4 mg [...] 120 mg PO QAM Qty: 30 3RF Referrals / Follow Up: Brayan Thompson MD [Primary Care Provider] - Within 1 Week Care Physician,No Primary [Non-Staff] - Disposition Disposition (needs filled in before D/C Order can be placed): Home, Self Care 10/26/24 1420<Electronically signed by Seth Flores MD>Seth Flores MD CC: Dr. Brayan Thompson MD; Dr. 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 chronic Essential (primary) hypertension chronic Hyperlipidemia chronic [facility] Work Phone: evaluation note* Diagnosis Onset Date Resolution Status 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 chronic Essential (primary) hypertension chronic Hyperlipidemia chronic Cystitis acute [facility] Work Phone: evaluation note* Diagnosis Onset Date Resolution Status Admit Date Dizziness acute August 15 3:23pm ANTHONY (dyspnea on exertion) acute August 15, 2024 3:23pm 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 Brayan Thompson MD Status :ADM HERSON Location: [id number] [facility] - General General Date of Admission: 11/26/24 Date of Service: 11/26/24 Chief Complaint: Generalized Weakness, Fall and Head Injury. HPI Narrative AYAN CARRILLO, is a 79 F with a past medical history of essential hypertension; on carvedilol twice daily, hyperlipidemia; on atorvastatin, hypothyroidism; on levothyroxine, morbid (class III) obesity; with BMI 41.3 this admission, CAD; s/p LA, PAF; on diltiazem and apixaban twice daily, GERD; on omeprazole and OA who presents to [facility] ER complaining of generalized weakness with fall and closed head injury. Ms. Carrillo reports her symptoms began earlier this afternoon when she was walking to the bathroom and her legs suddenly became weak causing her to subsequently fall to the ground. She deniesloss of consciousness with her fall but she does admit to hitting her head, thankfully without significant injury. She also admits to hitting her Right posterior shoulder area and was unable to get herself up so she pushed her Life-Alert button and activated EMS. Patient informed the ER physician that she lives with her daughter who works during the day causing her to be left at home alone frequently. She also went on to state that this is her second fall this week with intermittent lightheadedness and dyspnea on exertion that has been worsening throughout the week. She now cannot walk more than a few feet withoutbecoming severely short of breath which triggers heightened anxiety about falling with patient having to stop and rest even with minimal distances. She states she was recently seen by her skate maker who felt her carvedilol dose was too strong and they cut her dose ~3 days ago but her symptoms have persisted. She denies associated fever, chills, nausea, vomiting, diarrhea, constipation, abdominal pain, chest pain, palpitations, heart racing, dysuria, hematuria or rash - but she does admit to chronic lower extremity edema which isunchanged from previous. In the ER she was diagnosed with Generalized Weakness and Ambulatory Dysfunction causing increasingly Frequent Falls complicated by PAF; on apixaban with patient becoming increasingly poor candidate for DOAC therapy and also likely in need of subacute rehabilitation versus ECF placement. She was noted to have otherwise unremarkable traumatic findings on imaging in addition to unremarkable vital signs and laboratory studies. She was then admitted to the general medical floor with telemetric monitoring under observation status for ongoing care for a stay that is expected to be less than 2 midnights. [facility] Medical History (Updated 11/27/24 @ 00:[address] Stephanie Kincaid, ) Morbid obesity with BMI of 40.0-44.9, adult Hypothyroidism GERD (gastroesophageal reflux disease) GI bleed Atrial fibrillation Hypertension Myocardial infarction Obesity Essential (primary) hypertension Atherosclerotic heart disease of kenaitze coronary artery without angina pectoris Hyperlipidemia GERD (gastroesophageal reflux disease) Osteoarthritis Home Medications ?Medication ?Instructions ?Recorded ?Last Taken ?Type aspirin 81 mg chewable tablet 81 mg PO QHS 10/25/15 History nitroglycerin 0.4 mg sublingual 0.4 mg sublingual Q5M PRN Chest 08/10/23 10/25/24 Rx tablet Pain #25 tabs atorvastatin 40 mg tablet 40 mg PO QHS #90 tabs 10/24/24 Rx omeprazole 20 mg capsule,delayed 20 mg PO DAILY #90 ca ps 08/01/24 10/25/24 Rx release lisinopril 20 mg tablet 20 [...] 595 mg PO DAILY 10/25/24 History tablet carvedilol 25 mg tablet 25 mg PO BID 11/26/24 Unknow n History Allergy/AdvReac Type Severity Reaction Status Date / Time hydrochlorothiazide AdvReac Intermediate Constipatio Verified 11/26/24 15:58 n Family History Father CAD (coronary artery disease) Mother CHF (congestive heart failure) Sister Hypertension Surgical History History of appendectomy History of cholecystectomy History of left heart catheterization (06/04/08) History of coronary angioplasty (09/20/07) History of laparoscopic cholecystectomy History of total hysterectomy Social History housing: house Smoking Status: Never smoker alcohol intake: never substance use type: does not use ROS ROS Narrative Review of Systems: Constitutional: Patient denies fever or chills. Eyes: Patient denies changes in vision or discharge from eyes. ENT: Patient denies runny nose, sore throat or ear pain. Resp: Patient admits to ANTHONY but she denies cough or wheezing. CV: Patient denies chest pain, palpitations, heart racing, syncope or LE edema. GI: Patient denies abdominal pain, nausea, vomiting, diarrhea or constipation. : Patient denies dysuria or hematuria. MSK: Patient admits to generalized weakness with ambulatory dysfunction as per HPI. Skin: Patient denies rash, abscess, wounds or jaundice. Psych: Patient admits to heightened anxiety but she denies SI or HI. Neuro: Patient denies headache, paresthesias or focal neurologic deficits. Allergy: Patient denies lip swelling, tongue swelling or urticaria. Hematology: Patient admits to easy bleeding and bruising on apixaban. Endocrinology: Patient denies polyuria, polydipsia, polyphagia or het/cold intolerance. 14 point ROS otherwise negative except for positives noted above in HPI. Vital Signs Vital Signs Vital Signs: 11/26/24 15:56 11/26/24 16:00 11/26/24 16:00 Temperature 97.6 F L Temperature Source Oral Pulse Rate 72 Pulse Rate [Lying] Pulse Rate [Sitting (for 1 minute prior to obtaining)] Pulse Rate [Standing (for 1 minute prior to obtaining)] Respiratory Rate 18 Respiratory Effort Normal Non-Labored Normal Non-Labored Respiratory Depth Normal Respiratory Pattern Normal Blood Pressure 148/103 H Blood Pressure [Lying] Blood Pressure [Sitting (for 1 minute prior to obtaining)] Blood Pressure [Standing (for 1 minute prior to obtaining)] Blood Pressure Mean 118 Blood Pressure Mean [Lying] Blood Pressure Mean [Sitting (for 1 minute prior to obtaining)] Blood Pressure Mean [Standing (for 1 minute prior to obtaining)] Pulse Ox 94 Oxygen Delivery Method Room Air Room Air 11/26/24 17:56 11/26/24 19:00 11/26/24 20:11 Temperature Temperature Source Pulse Rate 66 83 Pulse Rate [Lying] 78 Pulse Rate [Sitting (for 1 minute prior to obtaining)] 82 Pulse Rate [Standing (for 1 minute prior to obtaining)] 78 Respiratory Rate 18 Respiratory Effort Respiratory Depth Respiratory Pattern Blood Pressure 146/84 H 148/83 H Blood Pressure [Lying] 165/81 H Blood Pressure [Sitting (for 1 minute prior to obtaining)] 120/82 H Blood Pressure [Standing (for 1 minute prior to obtaining)] 122/46 H Blood Pressure Mean 104 104 Blood Pressure Mean [Lying] 109 Blood Pressure Mean [Sitting (for 1 minute prior to obtaining)] 94 Blood Pressure Mean [Standing (for 1 minute prior to obtaining)] 71 Pulse Ox 94 94 Oxygen Delivery Method Room Air Room Air 11/26/24 20:13 Temperature 97.6 F L Temperature Source Pulse Rate 82 Pulse Rate [Lying] Pulse Rate [Sitting (for 1 minute prior to obtaining)] Pulse Rate [Standing (for 1 minute prior to obtaining)] Respiratory Rate 20 H Respiratory Effort Respiratory Depth Respiratory Pattern Blood Pressure 120/82 H Blood Pressure [Lying] Blood Pressure [Sitting (for 1 minute prior to obtaining)] Blood Pressure [Standing (for 1 minute prior to obtaining)] Blood Pressure Mean 94 Blood Pressure Mean [Lying] Blood Pressure Mean [Sitting (for 1 minute prior to obtaining)] Blood Pressure Mean [Standing (for 1 minute prior to obtaining)] Pulse Ox 94 Oxygen Delivery Method Weight Weight: 204 lb 5.896 oz Body Mass Index (BMI) 41.3 Physical Exam Const alert, oriented x3 and no apparent distress Constitutional Narrative: Morbidly obese with chronically ill but nontoxic appearance. General Appearance: cooperative HEENT normocephalic, head/scalp atraumatic, hearing grossly normal bilaterally and moist oral mucous membranes Eyes PERRL, EOMs intact bilaterally and conjunctivae normal Neck no lymphadenopathy, supple and no JVD Resp normal respiratory effort, no retractions, no use of accessory muscles and clearto auscultation bilaterally Cardio regular rate and regular rhythm GI normal to inspection, nondistended, normoactive bowel sounds, soft to palpation,non-tender and non-distended GI Narrative: Obese. Extremity normal to inspection and full ROM Skin Skin Narrative: Patient has no evidence of rash, abscess, wounds or jaundice. Neuro oriented x3, CN's II-XII intact bilaterally, moves all extremities and no focal motor deficits Neuro Narrative: Patient is weak with knees buckling while attempting to ambulate just a few feetwith severe associated anxiety about falling. Sensorium / Orientation: awake, alert, oriented to person, oriented to place andoriented to time Speech: speech normal Psych Mood & Affect: anxious Results Medical Records Data Attestation: I reviewed the patient's medical records Lab / Micro Data Attestation: I reviewed the patient's lab results. 11/27/24 03:48 11/27/24 03:48 Labs: Laboratory Results - last 24 hr 11/26/24 16:45: WBC 7.7, RBC 4.63, Hgb 13.7, Hct 41.7, MCV 90.1, MCH 29.6, MCHC 32.9, RDW Std Deviation 43.5, RDW Coeff of Cory 13.2, Plt Count 227, MPV 9.3, Immature Gran % (Auto) 0.300, Neut % (Auto) 79.7 H, Lymph % (Auto) 9.7 L, Starke %(Auto) 9.2, Eos % (Auto) 0.8, Baso % (Auto) 0.3, Absolute Neuts (auto) 6.2, Absolute Lymphs (auto) 0.75 L, Nucleated RBC % 0, PT 15.8 H, INR 1.2, APTT 29.2, Sodium 138, Potassium 4.8, Chloride 103, Carbon Dioxide 25.9, Anion Gap 9, BUN 16, Creatinine 0.53 L, Estim Creat Clear Calc 57.00, Est GFR (MDRD) Non-Af 93, BUN/Creatinine Ratio 30.3 H, Glucose 122 H, Calcium 10.1, Troponin T High Sens 28H D, NT pro BNP II 517 11/26/24 16:50: Urine Color Yellow, Urine Clarity Sl. Cloudy, Urine pH 6.5, Ur Specific Lee 1.015, Urine Protein 15 H, Urine Glucose (UA) Normal, Urine Ketones Negative, Urine Occult Blood 10 H, Urine Nitrite Negative, Urine Bilirubin Negative, Urine Urobilinogen Normal, Ur Leukocyte Esterase Negative, Urine RBC 0-5 SEEN, Urine WBC 0-5 SEEN, Ur Squamous Epith Cells 10-25 SEEN, Amorphous Sediment 1+, Urine Bacteria 2+, Urine Mucus 0 SEEN 11/26/24 18:40: Troponin T Hi Sens 2 Hr 27 H Micro: Microbiology 11/26/24 16:45 Mucosa - Nose SARS-CoV-2, Influenza & RSV (PCR) - Final Imaging Radiology Impression Brain CT 11/26/24 16:28 IMPRESSION: No acute traumatic findings. Chronic/degenerative changes as described above. Reading Location: [facility] Cervical Spine CT 11/26/24 17:01 IMPRESSION: No acute traumatic findings. Chronic/degenerative changes as described above. Reading Location: [facility] Chest X-Ray 11/26/24 17:10 IMPRESSION: No radiographic evidence of an acute cardiopulmonary process Reading Location: [id number] Assessment & Plan Assessment/Plan (1) Frequent falls: (2) Generalized weakness: (3) Ambulatory dysfunction: (4) Closed head injury without concussion: QUALIFIERS: Encounter type: initial encounter Qualified Code(s): S09.90XA - Unspecified injury of head, initial encounter (5) Paroxysmal atrial fibrillation: (6) Morbid obesity with BMI of 40.0-44.9, adult: PLAN: Plan 1. Frequent Falls with Generalized Weakness, Ambulatory Dysfunction and Closed Head Injury - Admit to general medical floor with telemetric monitoring under observation status. Give acetaminophen prn for [id number] (level 1-5/10) pain or fever. Give oxycodone prn for severe (level 6-10/10) pain. PT/OT and Case Management to consult and treat on rounds in the AM for further recommendations with help appreciated in advance. 2. PAF; on diltiazem and apixaban BID complicating #1 - Patient is a becoming apoor candidate for anticoagulation due to increasingly frequent falls. Apixabanwill need to be stopped if this trend of frequent falls continues as the risks outweigh any potential benefits. 3. Morbid (class III) obesity; with BMI 41.3 this admission adding to the burden of disease outlined in #1 & #2 - Weight loss will be recommended. Check TSH. This complicates her case and may hamper recovery. 4. Essential hypertension; on carvedilol twice daily - Maintain carvedilol as previous. 5. Hyperlipidemia; on atorvastatin - Hold statin in case of myotoxicity contributing to #1. Replace with alternative agent if her symptoms improve off statin. 6. Hypothyroidism; on levothyroxine - Continue levothyroxine and check TSH. 7. CAD; s/p LA - Noted. 8. GERD; on omeprazole - Maintain PPI. 9. OA - We will follow pain regimen and scales outlined in #1. 10. DVT prophylaxis - Patient already on apixaban for #2 which will be reluctantly continued for now. Total time: Approximately (but not less than) 70 minutes. Charges/Coding Visit Charges OBSV E&M: 45738 Observ/hosp same date L2 11/27/24 0639 <Electronically signed by Reynaldo Oliva DO> Cosigner Signature (if applicable): CC: Dr. Brayan Thompson MD; Dr. Reynaldo Oliva DO~ Signed [facility] Work Phone: Hospital Discharge instructions Additional Instructions Your work up today showed no sign of heart attack. I think your chest pain is from GERD or acid reflux. Continue your home medication and I prescribed Carafate to take before each meal and at bedtime. Please follow-up with your primary care doctor.[facility] Work Phone: Hospital Discharge instructions Additional Instructions Follow-up with your skate maker to address your low blood pressure. Keep a daily log. Ice and take Tylenol as needed. If symptoms worsen come back to the ER.[facility] Work Phone: Hospital Discharge instructions Additional [...] about repeating an ultrasound of the heart (echocardiogram).[facility] Work Phone: Progress note Author Paul Lauren [facility] Note Date/Time November 27, 2024 11:52am [facility] Medical Records Department [address] [place] [address] Progress Note - Hospitalist 11/27/24 0847 MR#: [id number] Acct: [id number] Name: AYAN CARRILLO Rep #:[id number] : 1945 79 From: Paul Ngo PCP: Dr. Brayan Thompson MD Status :ADM HERSON Location: [place] [address] Reason for Visit Chief Complaint: Generalized Weakness, Fall and Head Injury. Objective Data Objective Data Vital Signs: Vital Signs Temp Pulse Resp BP Pulse Ox O2 Del Method O2 Flow Rate 98.0 F 76 18 131/78 H 98 Nasal Cannula 2 11/27/24 08:04 11/27/24 08:04 11/27/24 08:04 11/27/24 08:04 11/27/24 08:04 11/27/24 08:10 11/27/24 08:10 Oxygen Flow Rate (L/min) 2 Oxygen Delivery Method Nasal Cannula Weight: 200 lb 2.876 oz Body Mass Index (BMI) 40.3 Intake & Output: Intake and Output for Last 24 Hours 11/25/24 11/26/24 11/27/24 23:59 23:59 23:59 Intake Total 100 / 100 Balance 100 / 100 Lab / Micro Data 11/27/24 03:48 11/27/24 03:48 Labs: Laboratory Results - last 24 hr 11/26/24 16:45: WBC 7.7, RBC 4.63, Hgb 13.7, Hct 41.7, MCV 90.1, MCH 29.6, MCHC 32.9, RDW Std Deviation 43.5, RDW Coeff of Cory 13.2, Plt Count 227, MPV 9.3, Immature Gran % (Auto) 0.300, Neut % (Auto) 79.7 H, Lymph % (Auto) 9.7 L, Starke %(Auto) 9.2, Eos % (Auto) 0.8, Baso % (Auto) 0.3, Absolute Neuts (auto) 6.2, Absolute Lymphs (auto) 0.75 L, Nucleated RBC % 0, PT 15.8 H, INR 1.2, APTT 29.2, Sodium 138, Potassium 4.8, Chloride 103, Carbon Dioxide 25.9, Anion Gap 9, BUN 16, Creatinine 0.53 L, Estim Creat Clear Calc 57.00, Est GFR (MDRD) Non-Af 93, BUN/Creatinine Ratio 30.3 H, Glucose 122 H, Hemoglobin A1c 5.6, Calcium 10.1, Troponin T High Sens 28 H D, NT pro BNP II 517 11/26/24 16:50: Urine Color Yellow, Urine Clarity Sl. Cloudy, Urine pH 6.5, Ur Specific Lee 1.015, Urine Protein 15 H, Urine Glucose (UA) Normal, Urine Ketones Negative, Urine Occult Blood 10 H, Urine Nitrite Negative, Urine Bilirubin Negative, Urine Urobilinogen Normal, Ur Leukocyte Esterase Negative, Urine RBC 0-5 SEEN, Urine WBC 0-5 SEEN, Ur Squamous Epith Cells 10-25 SEEN, Amorphous Sediment 1+, Urine Bacteria 2+, Urine Mucus 0 SEEN, Urine Opiates Screen NEGATIVE, U Buprenorphine Qual NEGATIVE, Ur Oxycodone Screen NEGATIVE, Urine Methadone Screen NEGATIVE, Urine Fentanyl Screen NEGATIVE, Ur BarbituratesScreen NEGATIVE, Ur Phencyclidine Scrn NEGATIVE, Ur Amphetamines Screen NEGATIVE, U Benzodiazepines Scrn NEGATIVE, Urine Cocaine Screen NEGATIVE, U Cannabinoids Screen NEGATIVE 11/26/24 18:40: Troponin T Hi Sens 2 Hr 27 H 11/26/24 20:25: Magnesium 2.1, Troponin T Hi Sens 4Hr 29 H, Vitamin B12 439, TSH< 0.005 L 11/26/24 20:50: Serum Folate 25.60, Ethyl Alcohol < 10.1 11/27/24 03:48: WBC 7.2, RBC 4.34, Hgb 12.6, Hct 40.1, MCV 92.4, MCH 29.0, MCHC 31.4 L, RDW Std Deviation 44.5 H, RDW Coeff of Cory 13.2, Plt Count 221, MPV 9.7,Immature Gran % (Auto) 0.400, Neut % (Auto) 70.8 H, Lymph % (Auto) 14.1 L, Starke % (Auto) 13.4 H, Eos % (Auto) 1.0, Baso % (Auto) 0.3, Absolute Neuts (auto) 5.1,Absolute Lymphs (auto) 1.02, Nucleated RBC % 0, Sodium 139, Potassium 4.0, Chloride 105, Carbon Dioxide 25.3, Anion Gap 9, BUN 15, Creatinine 0.49 L, EstimCreat Clear Calc 56.35, Est GFR (MDRD) Non-Af 95, BUN/Creatinine Ratio 30.0 H, Glucose 111 H, Calcium 9.9, Phosphorus 3.9, Total Bilirubin 0.61, AST 16, ALT 13,Alkaline Phosphatase 90, Total Protein 5.5 L, Albumin 3.1 L, Globulin 2.4, Albumin/Globulin Ratio 1.3, Triglycerides 84, Cholesterol 90, LDL Cholesterol, Calc 35, VLDL Cholesterol 17, HDL Cholesterol 38 L, Cholesterol/HDL Ratio 2.37 Micro: Microbiology 11/26/24 16:45 Mucosa - Nose SARS-CoV-2, Influenza & RSV (PCR) - Final Radiography Diagnostic Testing: Radiology Impression Brain CT 11/26/24 16:28 IMPRESSION: No acute traumatic findings. Chronic/degenerative changes as described above. Reading Location: [facility] Cervical Spine CT 11/26/24 17:01 IMPRESSION: No acute traumatic findings. Chronic/degenerative changes as described above. Reading Location: [facility] Chest X-Ray 11/26/24 17:10 IMPRESSION: No radiographic evidence of an acute cardiopulmonary process Reading Location: [id number] Rhythm Strip Rhythm Strip: Sinus Rhythm Rate: 70 Ectopy: None Physical Exam Narrative Seen and examined. The patient was evaluated by PT and OT in the morning today. As per PT she feltlittle dizzy although patient denies it. She was also little off balance and required assist and got short of breath. Mild hypoxia, oxygen increased to 3 L after moving from bed to chair and then back to 2 L. Denies chronic lung disease including asthma COPD/interstitial lung disease. Does not use oxygen athome. No CPAP. No history of smoking. Denies chronic heart disease. No chestpain Bilateral leg swelling Physical exam General: Alert, Oriented x3, Cooperative. Morbid obesity BMI 40.4 kg/m? HEENT: Atraumatic, PERRLA, EOMI, Normocephalic. Oral: No Gingival or Mucosal Lesions/ Ulcerations Neck: Supple, No JVD, Negative Carotid Bruits Chest wall/Lungs: Air entry diminished in bilateral lung bases. No crepitation/rhonchi Cardiovascular: Regular rate and rhythm, Normal S1,S2, No M/G/R Abdomen: Bowel Sounds Present, Soft, Non Tender, Non-Distended : No dysuria. No renal angle tenderness. No suprapubic tenderness. Extremities: 2+ pedal edema below knee, Capillary Refill Less than 3 Seconds Skin: No rashes, No breakdown Musculoskeletal: Mild tenderness on palpation over pitting edema. Degenerative arthritic deformities of her knees and ankles. ROM restricted over knees. Neurological: Cranial nerves II-XII grossly intact, DTR 2+/4. No acute focal neurological deficit. Psych/Mental Status: Normal Affect, Appropriate. Assessment & Plan Assessment/Plan (1) Frequent falls: (2) Generalized weakness: (3) Ambulatory dysfunction: (4) Closed head injury without concussion: QUALIFIERS: Encounter type: initial encounter Qualified Code(s): S09.90XA - Unspecified injury of head, initial encounter (5) Paroxysmal atrial fibrillation: (6) Morbid obesity with BMI of 40.0-44.9, adult: PLAN: Plan 79-year-old female was admitted with increased weakness and multiple falls last week including on the day of admission. She felt her legs were weak, fell to the ground and hit her head on the cabinet. Denies LOC. On Eliquis. Chronic swelling of the legs at baseline with no recent worsening. 1. Frequent Falls with Generalized Weakness, Ambulatory Dysfunction and Closed Head Injury - Admit to general medical floor. Pain control with acetaminophen and low-dose oxycodone. Was evaluated by PT and felt mildly dizzy and short of breath and mild hypoxia. Chest x-ray daily reviewed and no acute cardiopulmonary process. Patient does not have acute respiratory symptoms of cough or sputum or symptoms of pneumonia. Incentive spirometry New mild hypoxia: Etiology unclear possible related to atelectasis/sleep apnea. Patient denies chronic lung disease or smoking or sleep apnea. CPAP ordered 2. PAF; on diltiazem and apixaban BID: On carvedilol and Eliquis 5 mg twice daily. 3. Morbid (class III) obesity; with BMI 41.3 KG per square meter on admission- Weight loss will be recommended. 4. Essential hypertension; on carvedilol twice daily - Maintain carvedilol as previous. 5. Hyperlipidemia; on atorvastatin - continue atorvastatin. Check CPK 6. Mild hyperthyroidism with history of acquired hypothyroidism; on levothyroxine - TSH very low, less than 0.005. Free T4: 2.10. Hold levothyroxine 3 days and decrease dose to 50 mcg daily. Recommend TSH and free T4 after 6 weeks. 7. CAD; s/p LA -on baby aspirin. If anemia will be issue, baby aspirin can be discontinued as patient already on Eliquis. 8. GERD; on omeprazole - Maintain PPI. 9. OA -PT and OT. 10. DVT prophylaxis - Patient already on apixaban for #2 which will be reluctantly continued for now. Microbiology Past 72 Hours 11/26/24 16:45 Mucosa - Nose SARS-CoV-2, Influenza & RSV (PCR) - Final Laboratory Results 11/26/24 16:45: WBC 7.7, RBC 4.63, Hgb 13.7, Hct 41.7, MCV 90.1, MCH 29.6, MCHC 32.9, RDW Std Deviation 43.5, RDW Coeff of Cory 13.2, Plt Count 227, MPV 9.3, Immature Gran % (Auto) 0.300, Neut % (Auto) 79.7 H, Lymph % (Auto) 9.7 L, Starke %(Auto) 9.2, Eos % (Auto) 0.8, Baso % (Auto) 0.3, Absolute Neuts (auto) 6.2, Absolute Lymphs (auto) 0.75 L, Nucleated RBC % 0, PT 15.8 H, INR 1.2, APTT 29.2, Sodium 138, Potassium 4.8, Chloride 103, Carbon Dioxide 25.9, Anion Gap 9, BUN 16, Creatinine 0.53 L, Estim Creat Clear Calc 57.00, Est GFR (MDRD) Non-Af 93, BUN/Creatinine Ratio 30.3 H, Glucose 122 H, Hemoglobin A1c 5.6, Calcium 10.1, Troponin T High Sens 28 H D, NT pro BNP II 517 11/26/24 16:50: Urine Color Yellow, Urine Clarity Sl. Cloudy, Urine pH 6.5, Ur Specific Lee 1.015, Urine Protein 15 H, Urine Glucose (UA) Normal, Urine Ketones Negative, Urine Occult Blood 10 H, Urine Nitrite Negative, Urine Bilirubin Negative, Urine Urobilinogen Normal, Ur Leukocyte Esterase Negative, Urine RBC 0-5 SEEN, Urine WBC 0-5 SEEN, Ur Squamous Epith Cells 10-25 SEEN, Amorphous Sediment 1+, Urine Bacteria 2+, Urine Mucus 0 SEEN, Urine Opiates Screen NEGATIVE, U Buprenorphine Qual NEGATIVE, Ur Oxycodone Screen NEGATIVE, Urine Methadone Screen NEGATIVE, Urine Fentanyl Screen NEGATIVE, Ur BarbituratesScreen NEGATIVE, Ur Phencyclidine Scrn NEGATIVE, Ur Amphetamines Screen NEGATIVE, U Benzodiazepines Scrn NEGATIVE, Urine Cocaine Screen NEGATIVE, U Cannabinoids Screen NEGATIVE 11/26/24 18:40: Troponin T Hi Sens 2 Hr 27 H 11/26/24 20:25: Magnesium 2.1, Troponin T Hi Sens 4Hr 29 H, Vitamin B12 439, TSH< 0.005 L 11/26/24 20:50: Serum Folate 25.60, Ethyl Alcohol < 10.1 11/27/24 03:48: WBC 7.2, RBC 4.34, Hgb 12.6, Hct 40.1, MCV 92.4, MCH 29.0, MCHC 31.4 L, RDW Std Deviation 44.5 H, RDW Coeff of Cory 13.2, Plt Count 221, MPV 9.7,Immature Gran % (Auto) 0.400, Neut % (Auto) 70.8 H, Lymph % (Auto) 14.1 L, Starke % (Auto) 13.4 H, Eos % (Auto) 1.0, Baso % (Auto) 0.3, Absolute Neuts (auto) 5.1,Absolute Lymphs (auto) 1.02, Nucleated RBC % 0, Sodium 139, Potassium 4.0, Chloride 105, Carbon Dioxide 25.3, Anion Gap 9, BUN 15, Creatinine 0.49 L, EstimCreat Clear Calc 56.35, Est GFR (MDRD) Non-Af 95, BUN/Creatinine Ratio 30.0 H, Glucose 111 H, Calcium 9.9, Phosphorus 3.9, Total Bilirubin 0.61, AST 16, ALT 13,Alkaline Phosphatase 90, Total Protein 5.5 L, Albumin 3.1 L, Globulin 2.4, Albumin/Globulin Ratio 1.3, Triglycerides 84, Cholesterol 90, LDL Cholesterol, Calc 35, VLDL Cholesterol 17, HDL Cholesterol 38 L, Cholesterol/HDL Ratio 2.37, Free T4 2.10 H Clinical Impression(s) from Imaging Studies Brain CT 11/26/24 16:28 IMPRESSION: No acute traumatic findings. Chronic/degenerative changes as described above. Reading Location: [facility] Cervical Spine CT 11/26/24 17:01 IMPRESSION: No acute traumatic findings. Chronic/degenerative changes as described above. Reading Location: [facility] Chest X-Ray 11/26/24 17:10 IMPRESSION: No radiographic evidence of an acute cardiopulmonary process Reading Location: [id number] Charges/Coding Visit Charges Inpatient E&M: 40252 Subs Hosp L2 11/27/24 1140 <Electronically signed by Paul Lauren MD> Cosigner Signature (if applicable): CC: ~ Signed ADDENDUM by Dr. Paul Lauren MD on 11/27/24 at 1152 Addendum Patient had leg swelling and mild shortness of breath on movement along with hypoxia. proBNP normal. 2D echo reviewed EF 55 to 60%. Normal RV size and systolic function. LA moderately enlarged. Mild MR. 1-2+ TR. No pericardial effusion. Clinical Impression(s) from Imaging Studies Brain CT 11/26/24 16:28 IMPRESSION: No acute traumatic findings. Chronic/degenerative changes as described above. Reading Location: [facility] Cervical Spine CT 11/26/24 17:01 IMPRESSION: No acute traumatic findings. Chronic/degenerative changes as described above. Reading Location: [id number] Chest X-Ray 11/26/24 17:10 IMPRESSION: No radiographic evidence of an acute cardiopulmonary process Reading Location: [id number] 11/27/24 1152<Electronically signed by Paul Lauren MD> Cosigner Signature (if applicable): cc: ~* Signed [facility] Work Phone: Progress note Author Paul Lauren [facility] Note Date/Time November 28, 2024 4:57pm [facility] Medical Records Department [address] [place] [address] Progress Note - Hospitalist 11/28/241651 MR#: [id number] Acct: [id number] Name: AYAN CARRILLO Rep #:[id number] : 1945 79 From: Paul Ngo PCP: Dr. Brayan Thompson MD Status :ADM HERSON Location: [place] [address] Reason for Visit Chief Complaint: Generalized Weakness, Fall and Head Injury. Objective Data Objective Data Vital Signs: Vital Signs Temp Pulse Resp BP Pulse Ox O2 Del Method O2 Flow Rate 97.8 F 70 16 106/60 97 Nasal Cannula 2 11/28/24 16:12 11/28/24 16:12 11/28/24 16:12 11/28/24 16:12 11/28/24 16:12 11/28/24 16:12 11/28/24 16:12 Oxygen Flow Rate (L/min) 2 Oxygen Delivery Method Nasal Cannula Weight: 203 lb 7.787 oz Body Mass Index (BMI) 41.0 Intake & Output: Intake and Output for Last 24 Hours 11/26/24 11/27/24 11/28/24 23:59 23:59 23:59 Intake Total 1653.17 / 1653.17 450 / 450 Output Total 475 / 475 450 / 450 Balance 1178.17 / 1178.17 0 / 0 Lab / Micro Data 11/28/24 05:34 11/28/24 05:34 Labs: Laboratory Results - last 24 hr 11/28/24 05:34: WBC 7.4, RBC 4.33, Hgb 12.8, Hct 41.3, MCV 95.4, MCH 29.6, MCHC 31.0 L, RDW Std Deviation 47.8 H, RDW Coeff of Cory 13.6, Plt Count 242, MPV 9.9,Immature Gran % (Auto) 0.300, Neut % (Auto) 79.4 H, Lymph % (Auto) 7.3 L, Starke %(Auto) 11.3 H, Eos % (Auto) 1.3, Baso % (Auto) 0.4, Absolute Neuts (auto) 5.9, Absolute Lymphs (auto) 0.54 L, Nucleated RBC % 0, Sodium 136, Potassium 4.8, Chloride 102, Carbon Dioxide 21.2, Anion Gap 13, BUN 21 H, Creatinine 0.59 L, Estim Creat Clear Calc 56.86, Est GFR (MDRD) Non-Af 91, BUN/Creatinine Ratio 35.0 H, Glucose 125 H, Calcium 9.9, Phosphorus 3.7, NT pro BNP II 176 Micro: Microbiology 11/26/24 16:45 Mucosa - Nose SARS-CoV-2, Influenza & RSV (PCR) - Final Radiography Diagnostic Testing: Radiology Impression Chest X-Ray 11/28/24 08:55 IMPRESSION: Hypoventilation. Atelectasis left lung base. Reading Location: [facility] Rhythm Strip Rhythm Strip: Sinus Rhythm Rate: 70 Ectopy: None Physical Exam Narrative Seen and examined. Patient was dizzy and lightheaded with low BP, and not voided yesterday since 1700, dropped BP to 89/53. Nighttime hospitalist ordered furosemide and albumin. Very weak. Denies chronic lung disease including asthma COPD/interstitial lung disease. Does not use oxygen at home. No CPAP. No history of smoking. Denies chronic heart disease. No chest pain Bilateral leg swelling Physical exam General: Alert, Oriented x3, Cooperative. Morbid obesity BMI 40.4 kg/m?. Fatigue HEENT: Atraumatic, PERRLA, EOMI, Normocephalic. Oral: No Gingival or Mucosal Lesions/ Ulcerations Neck: Supple, No JVD, Negative Carotid Bruits Chest wall/Lungs: Air entry diminished in bilateral lung bases. No crepitation/rhonchi Cardiovascular: Regular rate and rhythm, Normal S1,S2, No M/G/R Abdomen: Bowel Sounds Present, Soft, Non Tender, Non-Distended : No dysuria. No renal angle tenderness. No suprapubic tenderness. Extremities: 2+ pedal edema below knee, Capillary Refill Less than 3 Seconds Skin: No rashes, No breakdown Musculoskeletal: Mild tenderness on palpation over pitting edema. Degenerative arthritic deformities of her knees and ankles. ROM restricted over knees. Neurological: Cranial nerves II-XII grossly intact, DTR 2+/4. No acute focal neurological deficit. Psych/Mental Status: Flat affect Assessment & Plan Assessment/Plan (1) Frequent falls: (2) Generalized weakness: (3) Ambulatory dysfunction: (4) Closed head injury without concussion: QUALIFIERS: Encounter type: initial encounter Qualified Code(s): S09.90XA - Unspecified injury of head, initial encounter (5) Paroxysmal atrial fibrillation: (6) Morbid obesity with BMI of 40.0-44.9, adult: PLAN: Plan 79-year-old female was admitted with increased weakness and multiple falls last week including on the day of admission. She felt her legs were weak, fell to the ground and hit her head on the cabinet. Denies LOC. On Eliquis. Chronic swelling of the legs at baseline with no recent worsening. 1. Frequent Falls with Generalized Weakness, Ambulatory Dysfunction and Closed Head Injury and low BP- Admit to general medical floor. Pain control with acetaminophen and low-dose oxycodone. Was evaluated by PT and felt mildly dizzyand short of breath and mild hypoxia. Chest x-ray daily reviewed and no acute cardiopulmonary process. Patient does not have acute respiratory symptoms of cough or sputum or symptoms of pneumonia. Incentive spirometry 11/28: Low BP/intermittent hypotension: Patient was given IV albumin with Lasix last night. BP 110/79. Started on midodrine. Orthostatic BP ordered for tomorrow AM. Continue PT and OT with caution. New mild hypoxia: Etiology unclear possible related to atelectasis/sleep apnea. Patient denies chronic lung disease or smoking or sleep apnea. CPAP ordered 11/28: Chest x-ray shows left lung base atelectasis. Hypoventilation. 2. PAF; on diltiazem and apixaban BID: On carvedilol and Eliquis 5 mg twice daily. 3. Morbid (class III) obesity; with BMI 41.3 KG per square meter on admission- Weight loss recommended. 4. Essential hypertension; on carvedilol twice daily - Maintain carvedilol as previous. 5. Hyperlipidemia; on atorvastatin - continue atorvastatin. Check CPK 6. Mild hyperthyroidism with history of acquired hypothyroidism; on levothyroxine - TSH very low, less than 0.005. Free T4: 2.10. Hold levothyroxine 3 days and decrease dose to 50 mcg daily. Recommend TSH and free T4 after 6 weeks. 7. CAD; s/p LA -on baby aspirin. If anemia will be issue, baby aspirin can be discontinued as patient already on Eliquis. 8. GERD; on omeprazole - Maintain PPI. 9. OA -PT and OT. 10. DVT prophylaxis - Patient already on apixaban for #2 which will be reluctantly continued for now. Microbiology Past 72 Hours 11/26/24 16:45 Mucosa - Nose SARS-CoV-2, Influenza & RSV (PCR) - Final Laboratory Results 11/28/24 05:34: WBC 7.4, RBC 4.33, Hgb 12.8, Hct 41.3, MCV 95.4, MCH 29.6, MCHC 31.0 L, RDW Std Deviation 47.8 H, RDW Coeff of Cory 13.6, Plt Count 242, MPV 9.9,Immature Gran % (Auto) 0.300, Neut % (Auto) 79.4 H, Lymph % (Auto) 7.3 L, Starke %(Auto) 11.3 H, Eos % (Auto) 1.3, Baso % (Auto) 0.4, Absolute Neuts (auto) 5.9, Absolute Lymphs (auto) 0.54 L, Nucleated RBC % 0, Sodium 136, Potassium 4.8, Chloride 102, Carbon Dioxide 21.2, Anion Gap 13, BUN 21 H, Creatinine 0.59 L, Estim Creat Clear Calc 56.86, Est GFR (MDRD) Non-Af 91, BUN/Creatinine Ratio 35.0 H, Glucose 125 H, Calcium 9.9, Phosphorus 3.7, NT pro BNP II 176 Laboratory Results 11/26/24 16:45: WBC 7.7, RBC 4.63, Hgb 13.7, Hct 41.7, MCV 90.1, MCH 29.6, MCHC 32.9, RDW Std Deviation 43.5, RDW Coeff of Cory 13.2, Plt Count 227, MPV 9.3, Immature Gran % (Auto) 0.300, Neut % (Auto) 79.7 H, Lymph % (Auto) 9.7 L, Starke %(Auto) 9.2, Eos % (Auto) 0.8, Baso % (Auto) 0.3, Absolute Neuts (auto) 6.2, Absolute Lymphs (auto) 0.75 L, Nucleated RBC % 0, PT 15.8 H, INR 1.2, APTT 29.2, Sodium 138, Potassium 4.8, Chloride 103, Carbon Dioxide 25.9, Anion Gap 9, BUN 16, Creatinine 0.53 L, Estim Creat Clear Calc 57.00, Est GFR (MDRD) Non-Af 93, BUN/Creatinine Ratio 30.3 H, Glucose 122 H, Hemoglobin A1c 5.6, Calcium 10.1, Troponin T High Sens 28 H D, NT pro BNP II 517 11/26/24 16:50: Urine Color Yellow, Urine Clarity Sl. Cloudy, Urine pH 6.5, Ur Specific Lee 1.015, Urine Protein 15 H, Urine Glucose (UA) Normal, Urine Ketones Negative, Urine Occult Blood 10 H, Urine Nitrite Negative, Urine Bilirubin Negative, Urine Urobilinogen Normal, Ur Leukocyte Esterase Negative, Urine RBC 0-5 SEEN, Urine WBC 0-5 SEEN, Ur Squamous Epith Cells 10-25 SEEN, Amorphous Sediment 1+, Urine Bacteria 2+, Urine Mucus 0 SEEN, Urine Opiates Screen NEGATIVE, U Buprenorphine Qual NEGATIVE, Ur Oxycodone Screen NEGATIVE, Urine Methadone Screen NEGATIVE, Urine Fentanyl Screen NEGATIVE, Ur BarbituratesScreen NEGATIVE, Ur Phencyclidine Scrn NEGATIVE, Ur Amphetamines Screen NEGATIVE, U Benzodiazepines Scrn NEGATIVE, Urine Cocaine Screen NEGATIVE, U Cannabinoids Screen NEGATIVE 11/26/24 18:40: Troponin T Hi Sens 2 Hr 27 H 11/26/24 20:25: Magnesium 2.1, Troponin T Hi Sens 4Hr 29 H, Vitamin B12 439, TSH< 0.005 L 11/26/24 20:50: Serum Folate 25.60, Ethyl Alcohol < 10.1 11/27/24 03:48: WBC 7.2, RBC 4.34, Hgb 12.6, Hct 40.1, MCV 92.4, MCH 29.0, MCHC 31.4 L, RDW Std Deviation 44.5 H, RDW Coeff of Cory 13.2, Plt Count 221, MPV 9.7,Immature Gran % (Auto) 0.400, Neut % (Auto) 70.8 H, Lymph % (Auto) 14.1 L, Starke % (Auto) 13.4 H, Eos % (Auto) 1.0, Baso % (Auto) 0.3, Absolute Neuts (auto) 5.1,Absolute Lymphs (auto) 1.02, Nucleated RBC % 0, Sodium 139, Potassium 4.0, Chloride 105, Carbon Dioxide 25.3, Anion Gap 9, BUN 15, Creatinine 0.49 L, EstimCreat Clear Calc 56.35, Est GFR (MDRD) Non-Af 95, BUN/Creatinine Ratio 30.0 H, Glucose 111 H, Calcium 9.9, Phosphorus 3.9, Total Bilirubin 0.61, AST 16, ALT 13,Alkaline Phosphatase 90, Total Protein 5.5 L, Albumin 3.1 L, Globulin 2.4, Albumin/Globulin Ratio 1.3, Triglycerides 84, Cholesterol 90, LDL Cholesterol, Calc 35, VLDL Cholesterol 17, HDL Cholesterol 38 L, Cholesterol/HDL Ratio 2.37, Free T4 2.10 H Clinical Impression(s) from Imaging Studies Brain CT 11/26/24 16:28 IMPRESSION: No acute traumatic findings. Chronic/degenerative changes as described above. Reading Location: [facility] Cervical Spine CT 11/26/24 17:01 IMPRESSION: No acute traumatic findings. Chronic/degenerative changes as described above. Reading Location: [facility] Chest X-Ray 11/26/24 17:10 IMPRESSION: No radiographic evidence of an acute cardiopulmonary process Reading Location: [id number] Charges/Coding Visit Charges Inpatient E&M: 26764 Subs Hosp L2 11/28/241656 <Electronically signed by Paul Lauren MD> Cosigner Signature (if applicable): CC: ~ Signed [facility] Work Phone: Progress note Author Paul Lauren [facility] Note Date/Time November 29, 2024 4:53pm [facility] Medical Records Department [address] [place] [address] Progress Note - Hospitalist 11/29/24 1641 MR#: [id number] Acct: [id number] Name: AYAN CARRILLO Rep #:[id number] : 1945 79 From: Paul Ngo PCP: Dr. Brayan Thompson MD Status :ADM HERSON Location: [place] [address] Reason for Visit Chief Complaint: Generalized Weakness, Fall and Head Injury. Objective Data Objective Data Vital Signs: Vital Signs Temp Pulse Resp BP Pulse Ox O2 Del Method O2 Flow Rate 97.5 F L 75 18 109/55 L 96 Nasal Cannula 2 11/29/24 11:18 11/29/24 11:18 11/29/24 11:18 11/29/24 11:18 11/29/24 14:00 11/29/24 14:54 11/29/24 14:54 Oxygen Flow Rate (L/min) 2 Oxygen Delivery Method Nasal Cannula Weight: 205 lb 7.533 oz Body Mass Index (BMI) 41.4 Intake & Output: Intake and Output for Last 24 Hours 11/27/24 11/28/24 11/29/24 23:59 23:59 23:59 Intake Total 1653.17 / 1653.17 1190 / 1190 800 / 800 Output Total 475 / 475 750 / 750 Balance 1178.17 / 1178.17 440 / 440 800 / 800 Lab / Micro Data 11/28/24 05:34 11/28/24 05:34 Micro: Microbiology 11/26/24 16:45 Mucosa - Nose SARS-CoV-2, Influenza & RSV (PCR) - Final Rhythm Strip Rhythm Strip: Sinus Rhythm Rate: 70 Ectopy: None Physical Exam Narrative Seen and examined. Patient was dizzy and lightheaded even sometimes in the bed, but more on changing the position. Denies chronic lung disease including asthma COPD/interstitial lung disease. Does not use oxygen at home. No CPAP. No history of smoking. Denies chronic heart disease. No chest pain Bilateral leg swelling Physical exam General: Alert, Oriented x3, Cooperative. Morbid obesity BMI 40.4 kg/m?. Fatigue HEENT: Atraumatic, PERRLA, EOMI, Normocephalic. Oral: No Gingival or Mucosal Lesions/ Ulcerations Neck: Supple, No JVD, Negative Carotid Bruits Chest wall/Lungs: Air entry diminished in bilateral lung bases. No crepitation/rhonchi Cardiovascular: Regular rate and rhythm, Normal S1,S2, No M/G/R Abdomen: Bowel Sounds Present, Soft, Non Tender, Non-Distended : No dysuria. No renal angle tenderness. No suprapubic tenderness. Extremities: 1+ pedal edema below knee, Capillary Refill Less than 3 Seconds Skin: No rashes, No breakdown Musculoskeletal: Mild tenderness on palpation over pitting edema. Degenerative arthritic deformities of her knees and ankles. ROM restricted over knees. Neurological: Cranial nerves II-XII grossly intact, DTR 2+/4. No acute focal neurological deficit. Psych/Mental Status: Flat affect Assessment & Plan Assessment/Plan (1) Frequent falls: (2) Generalized weakness: (3) Ambulatory dysfunction: (4) Closed head injury without concussion: QUALIFIERS: Encounter type: initial encounter Qualified Code(s): S09.90XA - Unspecified injury of head, initial encounter (5) Paroxysmal atrial fibrillation: (6) Morbid obesity with BMI of 40.0-44.9, adult: PLAN: Plan 79-year-old female was admitted with increased weakness and multiple falls last week including on the day of admission. She felt her legs were weak, fell to the ground and hit her head on the cabinet. Denies LOC. On Eliquis. Chronic swelling of the legs at baseline with no recent worsening. 1. Frequent Falls with Generalized Weakness, Ambulatory Dysfunction and Closed Head Injury and low BP- Admit to general medical floor. Pain control with acetaminophen and low-dose oxycodone. Was evaluated by PT and felt mildly dizzyand short of breath and mild hypoxia. Chest x-ray daily reviewed and no acute cardiopulmonary process. Patient does not have acute respiratory symptoms of cough or sputum or symptoms of pneumonia. Incentive spirometry 11/28: Low BP/intermittent hypotension: Patient was given IV albumin with Lasix last night. BP 110/79. Started on midodrine. Orthostatic BP ordered for tomorrow AM. Continue PT and OT with caution. 11/29: Orthostatic blood pressure ordered. On 11/26 heart rate does not show significant change from lying to standing but blood pressure dropped from 144/80to 122/46 about 20 m dropping systolic. New mild hypoxia: Etiology unclear possible related to atelectasis/sleep apnea. Patient denies chronic lung disease or smoking or sleep apnea. CPAP ordered 11/28: Chest x-ray shows left lung base atelectasis. Hypoventilation. 2. PAF; on Cardizem CD and apixaban BID: On carvedilol and Eliquis 5 mg twice daily. 11/29: Patient also on carvedilol 12.5 mg twice daily decreased to 6.25 mg twice daily with holding parameters. 3. Morbid (class III) obesity; with BMI 41.3 KG per square meter on admission- Weight loss recommended. 4. Essential hypertension; on carvedilol twice daily - Maintain carvedilol as previous. 5. Hyperlipidemia; on atorvastatin - continue atorvastatin. Check CPK 6. Mild hyperthyroidism with history of acquired hypothyroidism; on levothyroxine - TSH very low, less than 0.005. Free T4: 2.10. Hold levothyroxine 3 days and decrease dose to 50 mcg daily. Recommend TSH and free T4 after 6 weeks. 7. CAD; s/p LA -on baby aspirin. If anemia will be issue, baby aspirin can be discontinued as patient already on Eliquis. 8. GERD; on omeprazole - Maintain PPI. 9. OA -PT and OT. 10. DVT prophylaxis - Patient already on apixaban for #2 which will be reluctantly continued for now. Microbiology Past 72 Hours 11/26/24 16:45 Mucosa - Nose SARS-CoV-2, Influenza & RSV (PCR) - Final 11/26/24 18:40: Troponin T Hi Sens 2 Hr 27 H 11/26/24 20:25: Magnesium 2.1, Troponin T Hi Sens 4Hr 29 H, Vitamin B12 439, TSH< 0.005 L 11/26/24 20:50: Serum Folate 25.60, Ethyl Alcohol < 10.1 11/27/24 03:48: WBC 7.2, RBC 4.34, Hgb 12.6, Hct 40.1, MCV 92.4, MCH 29.0, MCHC 31.4 L, RDW Std Deviation 44.5 H, RDW Coeff of Cory 13.2, Plt Count 221, MPV 9.7,Immature Gran % (Auto) 0.400, Neut % (Auto) 70.8 H, Lymph % (Auto) 14.1 L, Starke % (Auto) 13.4 H, Eos % (Auto) 1.0, Baso % (Auto) 0.3, Absolute Neuts (auto) 5.1,Absolute Lymphs (auto) 1.02, Nucleated RBC % 0, Sodium 139, Potassium 4.0, Chloride 105, Carbon Dioxide 25.3, Anion Gap 9, BUN 15, Creatinine 0.49 L, EstimCreat Clear Calc 56.35, Est GFR (MDRD) Non-Af 95, BUN/Creatinine Ratio 30.0 H, Glucose 111 H, Calcium 9.9, Phosphorus 3.9, Total Bilirubin 0.61, AST 16, ALT 13,Alkaline Phosphatase 90, Total Protein 5.5 L, Albumin 3.1 L, Globulin 2.4, Albumin/Globulin Ratio 1.3, Triglycerides 84, Cholesterol 90, LDL Cholesterol, Calc 35, VLDL Cholesterol 17, HDL Cholesterol 38 L, Cholesterol/HDL Ratio 2.37, Free T4 2.10 H Clinical Impression(s) from Imaging Studies Brain CT 11/26/24 16:28 IMPRESSION: No acute traumatic findings. Chronic/degenerative changes as described above. Reading Location: [facility] Cervical Spine CT 11/26/24 17:01 IMPRESSION: No acute traumatic findings. Chronic/degenerative changes as described above. Reading Location: [facility] Chest X-Ray 11/26/24 17:10 IMPRESSION: No radiographic evidence of an acute cardiopulmonary process Reading Location: [id number] Charges/Coding Visit Charges Inpatient E&M: [id number] Subs Hosp L2 11/29/24 1648 <Electronically signed by Paul Lauren MD> Cosigner Signature (if applicable): CC: ~ Signed ADDENDUM by Dr. Paul Lauren MD on 11/29/24 at 1653 Addendum Carvedilol is held. 11/29/24 165<Electronically signed by Paul Lauren MD> Cosigner Signature (if applicable): cc: ~* Signed [facility] Work Phone: Reason for referral (narrative)No reason for referral information availableWSumma Health Work Phone: Chief Complaint and Reason for Visit Chief Complaint 6 M FU CAD - ANGIOPLASTY 2016 CAD - ANGIOPLASTY 2016 INT LABS Reason for Visit Atherosclerotic hear t disease of [place] coronary artery without angina pectoris Essential (primary) hypertension Hyperlipidemia Chief Complaint chest pain Chief Complaint chest pain 6 M FU PALPITATIONS Reason for Visit ANTHONY (dyspnea on exer tion) Palpitations Atherosclerotic heart disease of [place] coronary artery without angina pectoris Essential (primary) hypertension Hyperlipidemia Chief Complaint chest pain 6 M FU PALPITATIONS ANTHONY Reason for Visit ANTHONY (dyspnea on exer tion) Palpitations Atherosclerotic heart disease of [place] coronary artery without angina pectoris Essential (primary) hypertension Hyperlipidemia Chief Complaint chest pain 6 M FU PALPITATIONS ANTHONY EORDERS Reason for Visit ANTHONY (dyspnea on exer tion) Palpitations Atherosclerotic heart disease of [place] coronary artery without angina pectoris Essential (primary) hypertension Hyperlipidemia Chief Complaint 6 M FU Reason for Visit Atherosclerotic hear t disease of [place] coronary artery without angina pectoris Essential (primary) hypertension Hyperlipidemia Chief Complaint 6 M FU CONCERN FOR UTI Reason for Visit Atherosclerotic hear t disease of [place] coronary artery without angina pectoris Essential (primary) [...] 15 3:23pm 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 August 15, 2024 3:23pm Essential (primary) hypertension August 152024 3:23pm Hyperlipidemia August 15, 2024 3:23 pm Chief Complaint Admit Date fallJune 18, 2024 8:3 3pm weakness August 02, 2024 3:41a m 6 M FU August 15, 2024 3:23 pm 4-6 WK FU September 05, 2024 3:54p m Reason for Visit Admit Date Dizziness August 15, 2024 3:23 pm ANTHONY (dyspnea on exertion) August 15 3:23pm 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 August 15, 2024 3:23pm Essential (primary) hypertension August 152024 3:23pm Hyperlipidemia August 15, 2024 3:23 pm Dizziness September 05, 2024 3:54p m ANTHONY (dyspnea on exertion) September 05, 2024 3:54pm 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 September 05, 2024 3:54pm Essential (primary) hypertension August 3:54pm Hyperlipidemia September 05, 2024 3:54p m Chief Complaint Admit Date fallJune 18, 2024 8:3 3pm weakness August 02, 2024 3:41a m 6 M FU August 15, 2024 3:23 pm 4-6 WK September 05, 2024 3:54p m chest pain September 09, 2024 8:05 pm Chief Complaint Admit Date fallJune 18, 2024 8:3 3pm weakness August 02, 2024 3:41a m 6 M FU August 15, 2024 3:23 pm palpitations, dizziness August 29, 2024 7:15am 4-6 WK September 05, 2024 3:54p m chest pain September 09, 2024 8:05 pm EORDERS October 01, 2024 9:4 4am Chief Complaint Admit Date fallJune 18, 2024 8:3 3pm weakness August 02, 2024 3:41a m 6 M FU August 15, 2024 3:23 pm palpitations, dizziness August 29, 2024 7:15am 4-6 WK September 05, 2024 3:54p m chest pain [...] PAIN W/U October 25, 2024 5: 18pm Chief Complaint Admit Date weakness August 02, [...] PAIN W/U October 25, 2024 5: 18pm CHEST PAIN W/U October 26, 2024 1: 09pm Reason for Visit Admit Date Dizziness August 15, 2024 3:23 pm ANTHONY (dyspnea on exertion) August 15 3:23pm 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 August 15, 2024 3:23pm Essential (primary) hypertension August 152024 3:23pm Hyperlipidemia August 15, 2024 3:23 pm Dizziness September 05, 2024 3:54p m ANTHONY (dyspnea on exertion) September 05, 2024 3:54pm 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 September 05, 2024 3:54pm Essential (primary) hypertension August 3:54pm Hyperlipidemia September 05, 2024 3:54p m Chest pain October 25, 2024 5: 18pm Chief Complaint Admit Date weakness August 02, 2024 3:41a m 6 M FU August 15, 2024 3:23 pm palpitations, dizziness August 29, 2024 7:15am 30 DAY MONITOR August 29, 2024 1:47 pm 4-6 WK FU September 05, 2024 3:54p m chest pain September 09, 2024 8:05 pm EORDERS October 01, 2024 9:4 4am Heart racing October 14, 2024 12 :57pm chest pain October 21, 2024 9: 39am CHEST PAIN W/U October 25, 2024 5: 18pm CHEST PAIN W/U October 26, 2024 1: 09pm CHEST PAIN W/U October 26, 2024 4: 10pm FALL WITH GENERALIZED WEAKNESS AND HEAD INJURY November 26, 2024 8:27pm FALL WITH GENERALIZED WEAKNES AND HEAD I NJURY November 27, 2024 8:47am FALL WITH GENERALIZED WEAKNESS AND HEAD INJURY November 28, 2024 4:52pm FALL WITH GENERALIZED WEAKNESS AND HEAD INJURY November 29, 2024 4:41pm Reason for Visit Admit Date Dizziness August 15, 2024 3:23 pm ANTHONY (dyspnea on exertion) August 15 3:23pm 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 August 15, 2024 3:23pm Essential (primary) hypertension August 152024 3:23pm Hyperlipidemia August 15, 2024 3:23 pm Dizziness September 05, 2024 3:54p m ANTHONY (dyspnea on exertion) September 05, 2024 3:54pm 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 September 05, 2024 3:54pm Essential (primary) hypertension August 3:54pm Hyperlipidemia September 05, 2024 3:54p m Chest pain October 25, 2024 5: 18pm Ambulatory dysfunction November 26, 2 025 8:27pm Closed head injury without concussion Se ptember 2024 8:27pm Frequent falls November 26, 2024 8:27pm Generalized weakness November 26 8:27pm Morbid obesity with BMI of 40.0-44.9, ad ult November 26, 2024 8:27pm Paroxysmal atrial fibrillation November 26, 2024 8:27pm Chief Complaint Admit Date 6 M FU August 15, 2024 3:23 pm palpitations, dizziness August 29, 2024 7:15am 30 DAY MONITOR August 29, 2024 1:47 pm 4-6 WK FU September 05, 2024 3:54p m chest pain September 09, 2024 8:05 pm EORDERS October 01, 2024 9:4 4am Heart racing October 14, 2024 12 :57pm chest pain October 21, 2024 9: 39am CHEST PAIN W/U October 25, 2024 5: 18pm CHEST PAIN W/U October 26, 2024 1: 09pm CHEST PAIN W/U October 26, 2024 4: 10pm FALL WITH GENERALIZED WEAKNESS AND HEAD INJURY November 26, 2024 8:27pm FALL WITH GENERALIZED WEAKNES AND HEAD I NJURY November 27, 2024 8:47am FALL WITH GENERALIZED WEAKNESS AND HEAD INJURY November 28, 2024 4:52pm FALL WITH GENERALIZED WEAKNESS AND HEAD INJURY November 29, 2024 4:41pm FALL WITH GENERALIZED WEAKNESS AND HEAD INJURY November 30, 2024 2:34pm Family History No Family History Records Found Relationship Condition Age at Onset Recorded Date/T oli father Coronary artery disease Unknown mother Congestive heart failure Unknown sister Hypertension Unknown Advance Directives No Advanced Directives Records Found Advance Directive Response Recorded Date/ Time Advance Directives Yes October 25, 2015 5:48pm Living Will No August 03, 2020 1 :39pm Power of Chief Operator Hydroformer No August 03, 2020 1:39pm Advance Directive Response Recorded Date/ Time Advance Directives Yes October 25, 2015 5:48pm Living Will Yes October 12 2:43pm Power of Chief Operator Hydroformer Yes October 12 2:43pm Name of Medical Power of Chief Operator Hydroformer daughter October 12, 2021 2:43pm Advance Directive Response Recorded Date/ Time Name of Medical Power of Chief Operator Hydroformer daughter October 12, 2021 2:43pm Advance Directives Yes October 25, 2015 5:48pm Living Will Yes [place] [address], 202 2 2:43pm Power of Chief Operator Hydroformer Yes October 12 022 2:43pm Advance Directive Response Recorded Date/ Time Name of Medical Power of Chief Operator Hydroformer daughter October 12, 2021 1:43pm Advance Directives Yes October 25, 2015 4:48pm Living Will Yes October 12 2 1:43pm Power of Chief Operator Hydroformer Yes October 12 022 1:43pm Advance Directive Response Recorded Date/ Time Advance Directives Yes October 25, 2015 4:48pm Living Will Yes October 12 2 1:43pm Power of Chief Operator Hydroformer Yes October 12 022 1:43pm Advance Directive Response Recorded Date/ Time Living Will Yes June 18, 2024 8:38pm Do you have a Healthcare Power of Chief Operator Hydroformer? Yes June 18, 2024 8:38pm Name of Medical Power of Chief Operator Hydroformer Cassandra June 18, 2024 8:38pm Advance Directives Yes October 25, 2015 5:48pm Advance Directive Response Recorded Date/ Time Living Will Yes June 18, 2024 8:38pm Do you have a Healthcare Power of Chief Operator Hydroformer? Yes June 18, 2024 8:38pm Name of Medical Power of Chief Operator Hydroformer Cassandra June 18, 2024 8:38pm Do you have a Healthcare Power of Chief Operator Hydroformer? Yes August 02, 2024 3:44am Advance Directives Yes October 25, 2015 5:48pm Advance Directive Response Recorded Date/ Time Living Will No July 15, 2023 9 :56pm Do you have a Healthcare Power of Chief Operator Hydroformer? No July 15, 2023 9:56pm Living Will Yes June 18, 2024 8:38pm Do you have a Healthcare Power of Chief Operator Hydroformer? Yes June 18, 2024 8:38pm Name of Medical Power of Chief Operator Hydroformer Cassandra June 18, 2024 8:38pm Do you have a Healthcare Power of Chief Operator Hydroformer? Yes August 02, 2024 3:44am Advance Directives Yes October 25, 2015 5:48pm Advance Directive Response Recorded Date/ Time Living Will No July 15, 2023 9 :56pm Do you have a Healthcare Power of Chief Operator Hydroformer? No July 15, 2023 9:56pm Living Will Yes June 18, 2024 8:38pm Do you have a Healthcare Power of Chief Operator Hydroformer? Yes June 18, 2024 8:38pm Name of Medical Power of Chief Operator Hydroformer Cassandra June 18, 2024 8:38pm Do you have a Healthcare Power of Chief Operator Hydroformer? Yes August 02, 2024 3:44am Do you have a Healthcare Power of Chief Operator Hydroformer? No September 09, 2024 8:09pm Advance Directives Yes October 25, 2015 5:48pm Advance Directive Response Recorded Date/ Time Living Will No July 15, 2023 9 :56pm Do you have a Healthcare Power of Chief Operator Hydroformer? No July 15, 2023 9:56pm Do you have a Healthcare Power of Chief Operator Hydroformer? No October 21, 2024 9:40am Do you have a Healthcare Power of Chief Operator Hydroformer? Yes August 02, 2024 3:44am Do you have a Healthcare Power of Chief Operator Hydroformer? No September 09, 2024 8:09pm Advance Directives Yes October 25, 2015 5:48pm Advance Directive Response Recorded Date/ Time Living Will No July 15, 2023 9 :56pm Do you have a Healthcare Power of Chief Operator Hydroformer? No July 15, 2023 9:56pm Do you have a Healthcare Power of Chief Operator Hydroformer? No October 21, 2024 9:40am Do you have a Healthcare Power of Chief Operator Hydroformer? No October 25, 2024 12:05pm Do you have a Healthcare Power of Chief Operator Hydroformer? Yes August 02, 2024 3:44am Do you have a Healthcare Power of Chief Operator Hydroformer? No September 09, 2024 8:09pm Advance Directives Yes October 25, 2015 5:48pm Advance Directive Response Recorded Date/ Time Living Will No July 15, 2023 9 :56pm Do you have a Healthcare Power of Chief Operator Hydroformer? No July 15, 2023 9:56pm Do you have a Healthcare Power of Chief Operator Hydroformer? No October 21, 2024 9:40am Do you have a Healthcare Power of Chief Operator Hydroformer? No October 25, 2024 5:43pm Do you have a Healthcare Power of Chief Operator Hydroformer? Yes August 02, 2024 3:44am Do you have a Healthcare Power of Chief Operator Hydroformer? No September 09, 2024 8:09pm Advance Directives Yes October 25, 2015 5:48pm Advance Directive Response Recorded Date/ Time Living Will No July 15, 2023 9 :56pm Do you have a Healthcare Power of Chief Operator Hydroformer? No July 15, 2023 9:56pm Do you have a Healthcare Power of Chief Operator Hydroformer? No October 21, 2024 9:40am Do you have a Healthcare Power of Chief Operator Hydroformer? No October 25, 2024 5:43pm Do you have a Healthcare Power of Chief Operator Hydroformer? Yes November 26, 2024 9:47pm Do you have a Healthcare Power of Chief Operator Hydroformer? Yes August 02, 2024 3:44am Do you have a Healthcare Power of Chief Operator Hydroformer? No September 09, 2024 8:09pm Advance Directives Yes October 25, 2015 5:48pm Advance Directive Response Recorded Date/ Time Living Will No July 15, 2023 9 :56pm Do you have a Healthcare Power of Chief Operator Hydroformer? No July 15, 2023 9:56pm Do you have a Healthcare Power of Chief Operator Hydroformer? No October 21, 2024 9:40am Do you have a Healthcare Power of Chief Operator Hydroformer? No October 25, 2024 5:43pm Do you have a Healthcare Power of Chief Operator Hydroformer? Yes November 26, 2024 9:47pm Do you have a Healthcare Power of Chief Operator Hydroformer? No September 09, 2024 8:09pm Advance Directives [...] Provider, Referrin g Provider Active Ginger Grace CROWD CONTROLLER, [employer]OWD CONTROLLER-C Attending Provider Active Team Status: Inactive Member Role Status Dates Dr. Lilly Fletcher MD Primary Care Provider Active Ginger Grace CROWD CONTROLLER, CROWD CONTROLLER-C Attending Provider Active Team Status: Inactive Member Role Status Dates Dr. Lilly Fletcher MD Primary Care Provider, Referrin g Provider Active Andrew MAJOR PA Attending Provider Active Team Status: Inactive Member Role Status Dates Dr. Lilly Fletcher MD Primary Care Provider Active Andrew MAJOR PA Attending Provider Active Team Status: Active Member [...] 2024 End: August 15, 2024 Kale Ansari CROWD CONTROLLER, CROWD CONTROLLER-C Attending Provider Active S tart: August 15, [...] 2024 End: August 15, 2024 Kale Ansari CROWD CONTROLLER, CROWD CONTROLLER-C Attending Provider Active S tart: August 15, 2024 End: August 15, 2024 Team Status: Inactive Member Role/Relationship Status Dates Dr. Lilly Fletcher MD Primary Care Provider Active Start: September 05, 2024 End: September 05, 2024 Dr. Lilly Fletcher MD Referring Provider Active Start: September 05, 2024 End: September 05, 2024 Kale Ansari CROWD CONTROLLER, CROWD CONTROLLER-C Attending Provider Active S tart: September 05, 2024 End: September 05, 2024 Team Status: Inactive Member Role/Relationship Status Dates Dr. Lilly Fletcher MD Primary Care Provider Active Start: September 09, 2024 End: September 09, 2024 Dr. Donovan Pierson , Emergency Provider Active Start: September 09, 2024 End: September 09, 2024 Team Status: Active Member Role/Relationship Status Dates No Primary Care Physician Primary Care Provider Active Team Status: Active Member Role/Relationship Status Dates Dr. Lilly Fletcher MD Primary Care Provider Active Start: August 29, 2024 Kale Ansari CROWD CONTROLLER, CROWD CONTROLLER-C Attending Provider Active S tart: August 29, 2024 Kale Ansari CROWD CONTROLLER, CROWD CONTROLLER-C Referring Provider Active S tart: August 29, 2024 Team Status: Inactive Member Role/Relationship Status Dates Dr. Lilly Fletcher MD Primary Care Provider Active Start: September 05, 2024 End: September 05, 2024 Dr. Lilly Fletcher MD Referring Provider Active Start: September 05, 2024 End: September 05, 2024 Kale Ansari CROWD CONTROLLER, CROWD CONTROLLER-C Attending Provider Active S tart: September 05, 2024 End: September 05, 2024 Team Status: Inactive Member Role/Relationship Status Dates Dr. Lilly Fletcher MD Primary Care Provider Active Start: September 09, 2024 End: September 09, 2024 Dr. Donovan Pierson DO Attending Provider Active Start: September 09, 2024 End: September 09, 2024 Dr. Donovan Pierson , Emergency Provider Active Start: September 09, 2024 End: September 09, 2024 Team Status: Inactive Member Role/Relationship Status Dates No Primary Care Physician Primary Care Provider Active Start: October 01, 2024 End: October 01, 2024 Kale Ansari CROWD CONTROLLER, CROWD CONTROLLER-C Attending Provider Active S tart: October 01, 2024 End: October 01, 2024 Kale Ansari CROWD CONTROLLER, CROWD CONTROLLER-C Referring Provider Active S tart: October 01, 2024 End: October 01, 2024 Team Status: Inactive Member Role/Relationship Status Dates No Primary Care Physician Primary Care Provider Active Start: October 14, 2024 End: October 14, 2024 No Primary Care Physician Referring Provider Active Start: October 14, 2024 End: October 14, 2024 Ginger Grace CROWD CONTROLLER, CROWD CONTROLLER-C Attending Provider Active Start: October 14, 2024 [...] 2024 End: August 15, 2024 Kale Ansari CROWD CONTROLLER, CROWD CONTROLLER-C Attending Provider Active S tart: August 15, 2024 End: August 15, 2024 Team Status: Active Member Role/Relationship Status Dates Dr. Lilly Fletcher MD Primary Care Provider Active Start: August 29, 2024 Kale Ansari CROWD CONTROLLER, CROWD CONTROLLER-C Attending Provider Active S tart: August 29, 2024 Kale Ansari CROWD CONTROLLER, CROWD CONTROLLER-C Referring Provider Active S tart: August 29, [...] 2024 End: October 01, 2024 Kale Ansari CROWD CONTROLLER, CROWD CONTROLLER-C Attending Provider Active S tart: October 01, 2024 End: October 01, 2024 Kale Ansari CROWD CONTROLLER, CROWD CONTROLLER-C Referring Provider Active S tart: October 01, 2024 End: October 01, 2024 Team Status: Inactive Member Role/Relationship Status Dates No Primary Care Physician Primary Care Provider Active Start: October 14, 2024 End: October 14, 2024 No Primary Care Physician Referring Provider Active Start: October 14, 2024 End: October 14, 2024 Ginger Grace CROWD CONTROLLER, CROWD CONTROLLER-C Attending Provider Active Start: October 14, 2024 [...] Attending Provider Active Start: October 25, 2024 Team Status: Inactive Member Role/Relationship Status Dates No Primary Care Physician Primary Care Provider Active Start: October 21, 2024 End: October 21, 2024 Dr. Donovan Pierson DO Attending Provider Active Start: October 21, 2024 End: October 21, 2024 Dr. Donovan Pierson DO Emergency Provider Active Start: October 21, 2024 End: October 21, 2024 Team Status: Inactive Member Role/Relationship Status Dates Dr. Jaylen Jack DO Emergency Provider Active Start: October 25, 2024 End: October 26, 2024 Dr. Brayan Thompson MD Primary Care Provider Acti ve Start: October 25, 2024 End: October 26, 2024 Dr. Aranza Little MD Admit Provider Active Star t: October 25, 2024 End: October 26, 2024 Dr. Aranza Little MD Other Provider Active Star t: October 25, 2024 End: October 26, 2024 Dr. Seth Flores MD Attending Provider Active Start: October 25, 2024 End: October 26, 2024 Team Status: Active Member Role/Relationship Status Dates Dr. Jaylen Jack DO Emergency Provider Active Start: October 26, 2024 Dr. Brayan Thompson MD Primary Care Provider Acti ve Start: October 26, 2024 Dr. Aranza Little MD Admit Provider Active Star t: October 26, 2024 Dr. Aranza Little MD Other Provider Active Star t: October 26, 2024 Dr. Seth Flores MD Other Provider Active Start: October 26, 2024 Dr. Franko Franco MD Attending Provider Active Start: October 26, 2024 Team Status: Active Member Role/Relationship Status Dates Dr. Brayan Thompson MD Primary care physician Act kandy Team Status: Inactive Member Role/Relationship Status Dates Dr. Lilly Fletcher MD Primary care physician Active Start: August 02, 2024 End: August 02, 2024 Dr. Jaylen Jack DO Attending physician Active Start: August 02, 2024 End: August 02, 2024 Dr. Jaylen Jack DO Emergency Department Physician Active Start: August 02, 2024 End: August 02, 2024 Team Status: Inactive Member Role/Relationship Status Dates Dr. Lilly Fletcher MD Primary care physician Active Start: August 15, 2024 End: August 15, 2024 Dr. Lilly Fletcher MD Referring Provider Active Start: August 15, 2024 End: August 15, 2024 Kale Ansari CROWD CONTROLLER, CROWD CONTROLLER-C Attending physician Active Start: August 15, 2024 End: August 15, 2024 Team Status: Active Member Role/Relationship Status Dates Dr. Lilly Fletcher MD Primary care physician Active Start: August 29, 2024 Kale Ansari CROWD CONTROLLER, CROWD CONTROLLER-C Attending physician Active Start: August 29, 2024 Kale Ansari CROWD CONTROLLER, CROWD CONTROLLER-C Referring Provider Active S tart: August 29, 2024 Team Status: Active Member Role/Relationship Status Dates Dr. Lilly Fletcher MD Primary care physician Active Start: August 29, 2024 Dr. Elie Davis MD Attending physician Active Start: August 29, 2024 Kale Ansari CROWD CONTROLLER, CROWD CONTROLLER-C Referring Provider Active S tart: August 29, 2024 Team Status: Inactive Member Role/Relationship Status Dates Dr. Lilly Fletcher MD Primary care physician Active Start: September 05, 2024 End: September 05, 2024 Dr. Lilly Fletcher MD Referring Provider Active Start: September 05, 2024 End: September 05, 2024 Kale Ansari CROWD CONTROLLER, CROWD CONTROLLER-C Attending physician Active Start: September 05, 2024 End: September 05, 2024 Team Status: Inactive Member Role/Relationship Status Dates Dr. Lilly Fletcher MD Primary care physician Active Start: September 09, 2024 End: September 09, 2024 Dr. Donovan Pierson , Attending physician Active Start: September 09, 2024 End: September 09, 2024 Dr. Donovan Pierson , Emergency Department Physician Active Start: September 09, 2024 End: September 09, 2024 Team Status: Inactive Member Role/Relationship Status Dates No Primary Care Physician Primary care physician Activ e Start: October 01, 2024 End: October 01, 2024 Kale Ansari CROWD CONTROLLER, CROWD CONTROLLER-C Attending physician Active Start: October 01, 2024 End: October 01, 2024 Kale Ansari CROWD CONTROLLER, CROWD CONTROLLER-C Referring Provider Active S tart: October 01, 2024 End: October 01, 2024 Team Status: Inactive Member Role/Relationship Status Dates No Primary Care Physician Primary care physician Activ e Start: October 14, 2024 End: October 14, 2024 No Primary Care Physician Referring Provider Active Start: October 14, 2024 End: October 14, 2024 Ginger Grace [employer], [employer] Attending physician Active Start: October 14, 2024 End: October 14, 2024 Team Status: Inactive Member Role/Relationship Status Dates No Primary Care Physician Primary care physician Activ e Start: October 21, 2024 End: October 21, 2024 Dr. Donovan Pierson , Attending physician Active Start: October 21, 2024 End: October 21, 2024 Dr. Donovan Pierson , DO Emergency Departm ent Physician Active Start: October 21, 2024 End: October 21, 2024 Team Status: Inactive Member Role/Relationship Status Dates Dr. Jaylen Jack DO Emergency Departm ent Physician Active Start: October 25, 2024 End: October 26, 2024 Dr. Brayan Thompson MD Primary care physician Act kandy Start: October 25, 2024 End: October 26, 2024 Dr. Aranza Little MD Admitting physician Active Start: October 25, 2024 End: October 26, 2024 Dr. Aranza Little MD Nurse Practitioner Active Start: October 25, 2024 End: October 26, 2024 Dr. Seth Flores MD Attending physician Activ e Start: October 25, 2024 End: October 26, 2024 Team Status: Active Member Role/Relationship Status Dates Dr. Jaylen Jack DO Emergency Departm ent Physician Active Start: October 26, 2024 Dr. Brayan Thompson MD Primary care physician Act kandy Start: October 26, 2024 Dr. Aranza Little MD Admitting physician Active Start: October 26, 2024 Dr. Aranza Little MD Nurse Practitioner Active Start: October 26, 2024 Dr. Seth Flores MD Nurse Practitioner Active Start: October 26, 2024 Dr. Franko Franco MD Attending physician Active Start: October 26, 2024 Team Status: Active Member Role/Relationship Status Dates Dr. Jaylen Jack DO Emergency Departm ent Physician Active Start: October 26, 2024 Dr. Brayan Thompson MD Primary care physician Act kandy Start: October 26, 2024 Dr. Aranza Little MD Admitting physician Active Start: October 26, 2024 Dr. Aranza Little MD Nurse Practitioner Active Start: October 26, 2024 Dr. Seth Flores MD Attending physician Activ e Start: October 26, 2024 Dr. Seth Flores MD Nurse Practitioner Active Start: October 26, 2024 Team Status: Active Member Role/Relationship Status Dates Dr. Brayan Thompson MD Primary care physician Act kandy Start: November 26, 2024 Dr. Stephanie Kincaid , DO Emergency Departm ent Physician Active Start: November 26, 2024 Dr. Reynaldo lOiva , DO Admitting physician Active Start: November 26, 2024 Dr. Reynaldo Oliva , DO Nurse Practitioner Active Start: November 26, 2024 Dr. Paul Lauren MD Attending physician Active Start: November 26, 2024 Team Status: Active Member Role/Relationship Status Dates Dr. Brayan Thompson MD Primary care physician Act kandy Start: November 27, 2024 Dr. Stephanie Godman , DO Emergency Departm ent Physician Active Start: November 27, 2024 Dr. Reynaldo Oliva , DO Admitting physician Active Start: November 27, 2024 Dr. Reynaldo Oliva , DO Nurse Practitioner Active Start: November 27, 2024 Dr. Paul Lauren MD Attending physician Active Start: November 27, 2024 Dr. Paul Lauren MD Nurse Practitioner Active Start: November 27, 2024 Team Status: Active Member Role/Relationship Status Dates Dr. Brayan Thompson MD Primary care physician Act kandy Start: November 28, 2024 Dr. Stephanie Kincaid , DO Emergency Departm ent Physician Active Start: November 28, 2024 Dr. Reynaldo Oliva , DO Admitting physician Active Start: November 28, 2024 Dr. Reynaldo Oliva , DO Nurse Practitioner Active Start: November 28, 2024 Dr. Paul Lauren MD Attending physician Active Start: November 28, 2024 Dr. Paul Lauren MD Nurse Practitioner Active Start: November 28, 2024 Team Status: Active Member Role/Relationship Status Dates Dr. Brayan Thompson MD Primary care physician Act kandy Start: November 29, 2024 Dr. Stephanie Kincaid , DO Emergency Departm ent Physician Active Start: November 29, 2024 Dr. Reynaldo Oliva , DO Admitting physician Active Start: November 29, 2024 Dr. Reynaldo Oliva , DO Nurse Practitioner Active Start: November 29, 2024 Dr. Paul Lauren MD Attending physician Active Start: November 29, 2024 Dr. Paul Lauren MD Nurse Practitioner Active Start: November 29, 2024 Team Status: Inactive Member Role/Relationship Status Dates Dr. Lilly Fletcher MD Primary care physician Active Start: August 15, 2024 End: August 15, 2024 Dr. Lilly Fletcher MD Referring Provider Active Start: August 15, 2024 End: August 15, 2024 Kale Ansari NP [employer] Attending physician Active Start: August 15, 2024 End: August 15, 2024 Team Status: Active Member Role/Relationship Status Dates Dr. Lilly Fletcher MD Primary care physician Active Start: August 29, 2024 Kale H Roof [employer], [employer]-C Attending physician Active Start: August 29, 2024 Kale Ansari [employer], [employer]C Referring Provider Active S tart: August 29, 2024 Team Status: Active Member Role/Relationship Status Dates Dr. Lilly Fletcher MD Primary care physician Active Start: August 29, 2024 Dr. Elie Davis MD Attending physician Active Start: August 29, 2024 Kale Ansari [employer], [employer]-C Referring Provider Active S tart: August 29, 2024 Team Status: Inactive Member Role/Relationship Status Dates Dr. Lilly Fletcher MD Primary care physician Active Start: September 05, 2024 End: September 05, 2024 Dr. Lilly Fletcher MD Referring Provider Active Start: September 05, 2024 End: September 05, 2024 Kale Ansari [employer], [employer]-C Attending physician Active Start: September 05, 2024 End: September 05, 2024 Team Status: Inactive Member Role/Relationship Status Dates Dr. Lilly Fletcher MD Primary care physician Active Start: September 09, 2024 End: September 09, 2024 Dr. Donovan Pierson DO Attending physician Active Start: September 09, 2024 End: September 09, 2024 Dr. Donovan Pierson DO Emergency Department Physician Active Start: September 09, 2024 End: September 09, 2024 Team Status: Inactive Member Role/Relationship Status Dates No Primary Care Physician Primary care physician Activ e Start: October 01, 2024 End: October 01, 2024 Kale Ansari [employer]ER, [employer]-C Attending physician Active Start: October 01, 2024 End: October 01, 2024 Kale Ansari [employer]ER, [employer]-C Referring Provider Active S tart: October 01, 2024 End: October 01, 2024 Team Status: Inactive Member Role/Relationship Status Dates No Primary Care Physician Primary care physician Activ e Start: October 14, 2024 End: October 14, 2024 No Primary Care Physician Referring Provider Active Start: October 14, 2024 End: October 14, 2024 Ginger Grace [employer], [employer]-C Attending physician Active Start: October 14, 2024 End: October 14, 2024 Team Status: Inactive Member Role/Relationship Status Dates No Primary Care Physician Primary care physician Activ e Start: October 21, 2024 End: October 21, 2024 Dr. Donovan Pierson DO Attending physician Active Start: October 21, 2024 End: October 21, 2024 Dr. Donovan Pierson , DO Emergency Departm ent Physician Active Start: October 21, 2024 End: October 21, 2024 Team Status: Inactive Member Role/Relationship Status Dates Dr. Jaylen Jack DO Emergency Departm ent Physician Active Start: October 25, 2024 End: October 26, 2024 Dr. Brayan Thompson MD Primary care physician Act kandy Start: October 25, 2024 End: October 26, 2024 Dr. Aranza Little MD Admitting physician Active Start: October 25, 2024 End: October 26, 2024 Dr. Aranza Little MD Nurse Practitioner Active Start: October 25, 2024 End: October 26, 2024 Dr. Seth Flores MD Attending physician Activ e Start: October 25, 2024 End: October 26, 2024 Team Status: Active Member Role/Relationship Status Dates Dr. Jaylen Jack DO Emergency Departm ent Physician Active Start: October 26, 2024 Dr. Brayan Thompson MD Primary care physician Act kandy Start: October 26, 2024 Dr. Aranza Little MD Admitting physician Active Start: October 26, 2024 Dr. Aranza Little MD Nurse Practitioner Active Start: October 26, 2024 Dr. Seth Flores MD Nurse Practitioner Active Start: October 26, 2024 Dr. Franko Franco MD Attending physician Active Start: October 26, 2024 Team Status: Active Member Role/Relationship Status Dates Dr. Jaylen Jack DO Emergency Departm ent Physician Active Start: October 26, 2024 Dr. Brayan Thompson MD Primary care physician Act kandy Start: October 26, 2024 Dr. Aranza Little MD Admitting physician Active Start: October 26, 2024 Dr. Aranza Little MD Nurse Practitioner Active Start: October 26, 2024 Dr. Seth Flores MD Attending physician Activ e Start: October 26, 2024 Dr. Seth Flores MD Nurse Practitioner Active Start: October 26, 2024 Team Status: Inactive Member Role/Relationship Status Dates Dr. Brayan Thompson MD Primary care physician Act kandy Start: November 26, 2024 End: November 30, 2024 Dr. Stephanie Kincaid , DO Emergency Departm ent Physician Active Start: November 26, 2024 End: November 30, 2024 Dr. Reynaldo Oliva , DO Admitting physician Active Start: November 26, 2024 End: November 30, 2024 Dr. Reynaldo Oliva , DO Nurse Practitioner Active Start: November 26, 2024 End: November 30, 2024 Dr. Paul Lauren MD Attending physician Active Start: November 26, 2024 End: November 30, 2024 Team Status: Active Member Role/Relationship Status Dates Dr. Brayan Thompson MD Primary care physician Act kandy Start: November 27, 2024 Dr. Stephanie Kincaid , DO Emergency Departm ent Physician Active Start: November 27, 2024 Dr. Reynaldo Oliva , DO Admitting physician Active Start: November 27, 2024 Dr. Reynaldo Oliva , DO Nurse Practitioner Active Start: November 27, 2024 Dr. Paul Lauren MD Attending physician Active Start: November 27, 2024 Dr. Paul Lauren MD Nurse Practitioner Active Start: November 27, 2024 Team Status: Active Member Role/Relationship Status Dates Dr. Brayan Thompson MD Primary care physician Act kandy Start: November 28, 2024 Dr. Stephanie Kincaid , DO Emergency Departm ent Physician Active Start: November 28, 2024 Dr. Reynaldo Oliva , DO Admitting physician Active Start: November 28, 2024 Dr. Reynaldo Oliva , DO Nurse Practitioner Active Start: November 28, 2024 Dr. Paul Lauren MD Attending physician Active Start: November 28, 2024 Dr. Paul Lauren MD Nurse Practitioner Active Start: November 28, 2024 Team Status: Active Member Role/Relationship Status Dates Dr. Brayan Thompson MD Primary care physician Act kandy Start: November 29, 2024 Dr. Stephanie Kincaid , DO Emergency Departm ent Physician Active Start: November 29, 2024 Dr. Reynaldo Oliva , DO Admitting physician Active Start: November 29, 2024 Dr. Reynaldo Oliva , DO Nurse Practitioner Active Start: November 29, 2024 Dr. Paul Lauren MD Attending physician Active Start: November 29, 2024 Dr. Paul Lauren MD Nurse Practitioner Active Start: November 29, 2024 Team Status: Active Member Role/Relationship Status Dates Dr. Brayan Thompson MD Primary care physician Act kandy Start: November 30, 2024 Dr. Stephanie Kincaid DO Emergency Departm ent Physician Active Start: November 30, 2024 Dr. Reynaldo Oliva DO Admitting physician Active Start: November 30, 2024 Dr. Reynaldo Oliva , Nurse Practitioner Active Start: November 30, 2024 Dr. Paul Lauren MD Attending physician Active Start: November 30, 2024 Dr. Paul Lauren MD Nurse Practitioner Active Start: November 30, 2024 INFORMATION SOURCE (unrecogn ized section and content) DATE CREATED AUTHOR 01/07/2025 [facility] FOR RECORDS PERTAINING TO PATIENTS [...] BE BASED ON THE PRIMARY CLINICAL RECORDS. [employer] provides no warranty or guarantee of the accuracy or completeness of information in this document.
[2025-01-09 22:25] VITALS: BP 132/61; PULSE 91; RESP 19; TEMP 36.6; O2SAT 97
[2025-01-09 22:26] LABS: Red Blood Cells-Urine 0-5 SEEN /hpf (0-5)
[2025-01-09 23:00] VITALS: BP 134/67; PULSE 64; RESP 18; TEMP 36.6; O2SAT 97
--- NOTE | 2025-01-09 23:23 | ED.VIS.FEGU ---
HPI HPI - Female History of Present Illness Chief Complaint: Complaint Narrative Narrative: Chief complaint and HPI: 79-year-old female with history of A-fib on Eliquis, HTN, CAD, HLD, GERD, hypothyroidism presents for evaluation of dysuria and hematuria. History taken by patient as well as medical record. Patient was discharged from the hospital on 11/30/2024 after admission for increased weakness and multiple falls. She was ultimately discharged to a care facility. Daughter states she was at that care facility for 2 weeks receiving minimal physical therapy when she was switched to another rehab facility. She has been there approximately 2.5 weeks. Discharged yesterday. Daughter states that she was discharged secondary to insurance issues. However she was able to pivot out of the wheelchair to use the bathroom. Daughter states today she has been and able to do this. Patient has complained of dysuria for the past several days. Was recently diagnosed with a UTI and treated with Macrobid. Denies any fever, chills, shortness of breath, chest pain abdominal pain, nausea, vomiting, back pain. Review of systems: See HPI Medications: As listed on the chart Allergies: As listed on the chart PFSH: Per chart Vital signs: As listed on the chart. Reviewed. Physical exam: Gen: A&O x3, NAD Head: Normocephalic, atraumatic Eyes: No sclera icterus, conjunctiva clear ENT: Moist mucous membranes CV: RRR, no murmurs Resp: Lungs CTA BL, no w/r/c GI: Abd soft, non-distended, non-tender, no r/r/g : No CVA tenderness Musc: Moves all extremities, generalized weakness Skin: Warm, dry Psych: Cooperative, appropriate mood and affect PFS PFS Medical History Frequent falls Ambulatory dysfunction Morbid obesity with BMI of 40.0-44.9, adult Hypothyroidism GERD (gastroesophageal reflux disease) GI bleed Atrial fibrillation Hypertension Myocardial infarction Obesity Essential (primary) hypertension Atherosclerotic heart disease of [place] coronary artery without angina pectoris Hyperlipidemia GERD (gastroesophageal reflux disease) Osteoarthritis Home Medications Medication Instructions Recorded Last Taken Type nitroglycerin 0.4 mg sublingual 0.4 mg sublingual Q5M PRN Chest 08/10/23 10/25/24 Rx tablet Pain #25 tabs omeprazole 20 mg capsule,delayed 20 mg PO DAILY #90 caps 08/01/24 10/25/24 Rx release apixaban 5 mg tablet (Eliquis) 5 mg PO BID #60 tabs 09/29/24 10/25/24 Rx diltiazem HCl 120 mg capsule,24 120 mg PO QAM #30 caps 10/14/24 10/25/24 Rx hr,extended release (Tiadylt ER) levothyroxine 75 mcg tablet 75 mcg PO DAILY 10/25/24 10/25/24 History potassium gluconate 595 mg (99 mg) 595 mg PO DAILY 10/25/24 10/25/24 History tablet acetaminophen 325 mg tablet 650 mg (2 x 325 mg) PO Q6H PRN PRN 11/30/24 Unknown Rx Pain 1-07/09 or Fever #0 tabs aspirin 81 mg chewable tablet 81 mg PO QHS 30 days #30 tabs 11/30/24 10/24/24 Rx meclizine 25 mg tablet 25 mg PO 4X/DAY PRN PRN 11/30/24 Unknown Rx (Travel-Ease (meclizine)) DIZZINESS/VERTIGO #0 tabs midodrine 5 mg tablet 10 mg (2 x 5 mg) PO TIDCM #0 tabs 11/30/24 Unknown Rx Allergy/AdvReac Type Severity Reaction Status Date / Time hydrochlorothiazide AdvReac Intermediate Constipatio Verified 01/09/25 21:23 n Family History Father CAD (coronary artery disease) Mother CHF (congestive heart failure) Sister Hypertension Surgical History History of appendectomy History of cholecystectomy History of left heart catheterization (06/04/08) History of coronary angioplasty (09/20/07) History of laparoscopic cholecystectomy History of total hysterectomy Social History housing: house Smoking Status: Never smoker alcohol intake: never substance use type: does not use EXAM Physical Exam Const Vital Signs: 01/09/25 21:23 01/09/25 21:25 01/09/25 22:25 Temperature 97.9 F 97.9 F 97.9 F Temperature Source Oral Oral Oral Pulse Rate 87 87 91 Respiratory Rate 18 18 19 H Blood Pressure 129/72 H 129/72 H 132/61 H Blood Pressure Mean 91 91 84 Pulse Ox 97 100 97 Oxygen Delivery Method Room Air Room Air Room Air 01/09/25 23:00 Temperature 97.9 F Temperature Source Oral Pulse Rate 64 Respiratory Rate 18 Blood Pressure 134/67 H Blood Pressure Mean 89 Pulse Ox 97 Oxygen Delivery Method Room Air MDM MDM MDM Narrative Medical decision making narrative: 79-year-old female with history of A-fib on Eliquis, HTN, CAD, HLD, GERD, hypothyroidism presents for evaluation of dysuria and hematuria. History taken by patient as well as medical record. Patient was discharged from the hospital on 11/30/2024 after admission for increased weakness and multiple falls. She was ultimately discharged to a care facility. Daughter states she was at that care facility for 2 weeks receiving minimal physical therapy when she was switched to another rehab facility. She has been there approximately 2.5 weeks. Discharged yesterday. Daughter states that she was discharged secondary to insurance issues. However she was able to pivot out of the wheelchair to use the bathroom. Daughter states today she has been and able to do this. Patient has complained of dysuria for the past several days. Was recently diagnosed with a UTI and treated with Macrobid. Denies fever, chills, abdominal pain, nausea, vomiting. On presentation, patient no acute distress. Nontoxic-appearing. Differential diagnosis includes but is not limited to UTI, electrolyte abnormality, YEIMY. Exam and HPI not consistent with pyelonephritis. UA and basic labs ordered. Daughter states that patient is not able to discharge home and will need place for PT/OT as she cannot stand or use the bathroom. On chart review, patient had a UA performed on 12/22/2024. Positive for protein, blood, leuk esterase, WBCs. 3+ bacteria. Culture grew out E. coli, pediococcus, Streptococcus agalactiae. All sensitive to Macrobid except for Streptococcus. However all sensitive to ampicillin. UA positive for protein, blood, leuk esterase, 4+ bacteria. No WBCs. Urine culture sent. Given patient is endorsing dysuria will treat for UTI. Will give Unasyn to cover broadly for now. While nursing was changing the patient and they noticed a large amount of blood in the front of her depends. Patient states that she has been bleeding like that since the last 2 days at the care facility. They do not know what is causing the blood. Patient was straight cathed here in the emergency department and there was not a significant amount of blood in the urine that equated to the mall in her depends. I did a bedside pelvic to assess for vaginal bleeding. Normal external genitalia however blood was on her labia. No lesions, masses, or rashes appreciated. No active vaginal bleeding or discharge noted on internal exam. No laceration. Cervix unable to be found. Discussing with patient and she has had a total hysterectomy. No bleeding near the anus or rectum. This area was wiped without blood. Blood is all located in the front of the depends as well. At this point in time, I suspect the bleeding is coming from her urinating in the depends. Given this bleeding, will add on CT abdomen and pelvis. CBC without leukocytosis. Patient has baseline anemia of 11.4. Platelets unremarkable. BMP pending. Patient signed out to oncoming physician Dr. Pickett. He will await CT abdomen pelvis findings. Patient will ultimately need to be admitted for PT/OT as she is unable to ambulate or take care of herself at home. Lab Data Labs: Laboratory Results - last 24 hr 01/09/25 21:37 Urine Color Yellow Urine Clarity Cloudy Urine pH 9.0 Ur Specific [place] 1.015 Urine Protein 100 H Urine Glucose (UA) Normal Urine Ketones Negative Urine Occult Blood 250 H Urine Nitrite Negative Urine Bilirubin Negative Urine Urobilinogen Normal Ur Leukocyte Esterase 500 H Urine RBC 0-5 SEEN Urine WBC 0-5 SEEN Ur Squamous Epith Cells 0 SEEN Amorphous Sediment 1+ Urine Bacteria 4+ Urine Mucus 0 SEEN Discharge Plan Triage Chief Complaint: Complaint ED Provider: Ahmet Romero Dx/Rx/DC Orders Prescriptions: No Action nitroglycerin 0.4 mg tablet, sublingual 0.4 mg SUBLINGUAL Q5M PRN (Reason: Chest Pain) Qty: 25 2RF Patient Comments: chest pain levothyroxine 75 mcg tablet 75 mcg PO DAILY potassium gluconate 595 mg (99 mg) tablet 595 mg PO DAILY acetaminophen 325 mg Tablet 650 mg PO Q6H PRN PRN (Reason: Pain 1-5/10 or Fever) Qty: 0 0RF midodrine 5 mg Tablet 10 mg PO TIDCM Qty: 0 0RF Rx Instructions: Hold if SBP more than 100 mmHg meclizine [Travel-Ease (meclizine)] 25 mg Tablet 25 mg PO 4X/DAY PRN PRN (Reason: DIZZINESS/VERTIGO) Qty: 0 0RF aspirin 81 MG tablet,chewable 81 mg PO QHS 30 Days Qty: 30 0RF Patient Comments: [facility] Rx Instructions: Discontinue if hemoglobin drops less than 10 g as patient already on Eliquis. omeprazole 20 mg capsule,delayed release(DR/EC) 20 mg PO DAILY Qty: 90 3RF Eliquis 5 mg tablet 5 mg PO BID Qty: 60 11RF diltiazem HCl [Tiadylt ER] 120 mg capsule,extended release 24 hr 120 mg PO QAM Qty: 30 3RF Primary Care Provider: Lino Gruber Referrals: Lino Gruber MD [Primary Care Provider, Family Practice] Print Language: Kyrgyz
[2025-01-10] VITALS (11 sets, daily range): BP systolic 124–150; BP diastolic 67–89; PULSE 56–96; RESP 16–19; TEMP 36–36.9; O2SAT 92–97; BMI 39.9
--- NOTE | 2025-01-10 00:06 | CT_ITS ---
PROCEDURE: ABDOMEN/PELVIS W IV CONT ONLY 01/10/2025 REASON FOR EXAM: UTI, BLEEDING TECHNIQUE: Procedure Code: [id number] Modality: CT Procedure: ABDOMEN/PELVIS W IV CONT ONLY Coronal and Sagittal reconstruction series were provided. CONTRAST: OMNIPAQUE 350 VOLUME: 100 mL One or more dose reduction techniques were used (e.g., Automated exposure control, adjustment of the mA and/or kV according to patient size, use of iterative reconstruction technique. RADIATION DOSE SUMMARY: CTDlvol: 22.34 mGy DLP: 1169 mGycm COMPARISON: None. FINDINGS: Mild bilateral basilar atelectatic pulmonary changes. Prior cholecystectomy. Hepatic steatosis. Small sliding hiatal hernia. Diffuse thickening of the stomach, probably gastritis. Right renal simple cyst measuring 2.3 cm. Prior hysterectomy. Moderate diffuse thickening of the bladder, probably cystitis. Bilateral urothelial thickening, probably an ascending urinary tract infection. Mild osteopenia. Mild diffuse spondylosis. Mild chronic compression fracture of T11 vertebral body. Prior appendectomy. Nonobstructing stones in the dependent aspect of the bladder with the largest measuring 3 mm. Chronic deformity of the left inferior pubic ramus, probably secondary to healed fracture. Uncomplicated colonic diverticulosis. Normal extrahepatic biliary system. Normal spleen. Normal pancreas. Normal bilateral adrenal glands. Normal size of the right kidney. There is no right renal mass. There are no right renal calculi. There is no right hydronephrosis. Normal visualized right ureter. Normal size of the left kidney. There is no left renal mass. There are no left renal calculi. There is no left hydronephrosis. Normal visualized left ureter. Normal small intestine. There is no demonstrated peritoneal fluid. Calcified atheromatous plaques of the abdominal aorta. Normal inferior vena cava. Normal retroperitoneum. There is no pelvic mass lesion or lymphadenopathy. There is no pelvic fluid. CT/Abdomen/Pelvis W IV Cont ONLY IMPRESSION: Mild bilateral basilar atelectatic pulmonary changes. Prior cholecystectomy. Hepatic steatosis. Small sliding hiatal hernia. Diffuse thickening of the stomach, probably gastritis. Right renal simple cyst measuring 2.3 cm. Prior hysterectomy. Moderate diffuse thickening of the bladder, probably cystitis. Bilateral urothelial thickening, probably an ascending urinary tract infection. Mild osteopenia. Mild diffuse spondylosis. Mild chronic compression fracture of T11 vertebral body. Prior appendectomy. Nonobstructing stones in the dependent aspect of the bladder with the largest m easuring 3 mm. Chronic deformity of the left inferior pubic ramus, probably secondary to heale d fracture. Uncomplicated colonic diverticulosis. Reading Location: [id number]
[2025-01-10 00:12] LABS: Hematocrit 36.3 % (37-47); Hemoglobin 11.4 g/dL (12.0-15.0); Immature Granulocytes Count 0.020 X10^3/uL (0.0-0.0); Mean Corp Hgb Conc 31.4 g/dL (32-36); Mean Corpuscular Volume 91.4 fL (81-99); Mean Platelet Vol. 9.8 fl (6.2-12.0); NRBC Flagged by Analyzer 0 % (0-5); Platelet Count 290 K/mm3 (150-450); RBC Distribution Width CV 14.6 % (11.6-14.6); RBC Distribution Width SD 49.1 fl (35.1-43.9); Red Blood Count 3.97 M/mm3 (4.2-5.4); White Blood Count 5.1 K/mm3 (4.4-11.0)
[2025-01-10 00:34] LABS: Anion Gap 9 (5-15); BUN 16 mg/dL (4-19); BUN/Creat Ratio 22.6 RATIO (10-20); Calcium,Total 10.4 mg/dL (7.6-11.0); Carbon Dioxide 27.9 mmol/L (21.0-32.0); Chloride 102 mmol/L (98-108); Glucose 107 mg/dL (70-99); Potassium 4.1 mmol/L (3.3-5.1)
[2025-01-10] MEDS: Ampicillin/Sulbactam 3 GM in 0.9% Normal Saline (100mL MB+) 100 ML IV (00:53)
--- NOTE | 2025-01-10 01:41 | ED.RN ---
CT called about delay in CT results. Reply was that Radiology is currently on the case.
--- NOTE | 2025-01-10 02:20 | PCM.HP.STD ---
HPI - General General Date of Admission: 01/10/25 Date of Service: 01/10/25 Chief Complaint: Failure to thrive, dysuria HPI Narrative AYAN CARRILLO, is a 79 F who presents to the emergency room with chief complaint of dysuria and hematuria. Patient was recently discharged from the hospital on November 30 after admission from increased weakness and multiple falls at that time. She was then sent to rehab care facility and was discharged yesterday. Patient has significant past medical history of atrial fibrillation for which she takes Eliquis, hypertension, coronary artery disease, hyperlipidemia, gastroesophageal reflux, hypothyroidism and general weakness. Upon her discharge yesterday patient was able to transfer from wheelchair to the use of the bathroom, however, she is not able to do that now. Patient has complained of dysuria for past several days and has been treated with Macrobid for UTI. Patient denies fever chills, chest pain shortness of breath, abdominal pain, nausea vomiting but does have some back pain at this time. Laboratory studies reveal white blood cell count of 5.1, hemoglobin 11.4, hematocrit 36.3, platelets 290, sodium 139, potassium 4.1, chloride 102, bicarb 27.9, BUN 16, creatinine 0.72, glucose 107, urinalysis positive for 500 leukocyte esterase and 4+ bacteria. CT scan shows moderate diffuse thickening of the bladder wall probable cystitis. Due to patient's inability to transfer and function with activities of daily living at home and current urinary tract infection she will be admitted to the hospital and will need plan for further discharge rehabilitation as patient is unable to care for herself at this time. Patient is DNR [facility] arrest. [facility] Medical History (Updated 01/10/25 @ 02:[address] Jeremiah Pickett, ) Frequent falls Ambulatory dysfunction Morbid obesity with BMI of 40.0-44.9, adult Hypothyroidism GERD (gastroesophageal reflux disease) GI bleed Atrial fibrillation Hypertension Myocardial infarction Obesity Essential (primary) hypertension Atherosclerotic heart disease of [place] coronary artery without angina pectoris Hyperlipidemia GERD (gastroesophageal reflux disease) Osteoarthritis Home Medications Medication Instructions Recorded Last Taken Type nitroglycerin 0.4 mg sublingual 0.4 mg sublingual Q5M PRN Chest 08/10/23 10/25/24 Rx tablet Pain #25 tabs omeprazole 20 mg capsule,delayed 20 mg PO DAILY #90 caps 08/01/24 01/10/25 Rx release apixaban 5 mg tablet (Eliquis) 5 mg PO BID #60 tabs 09/29/24 01/10/25 Rx diltiazem HCl 120 mg capsule,24 120 mg PO QAM #30 caps 10/14/24 01/10/25 Rx hr,extended release (Tiadylt ER) levothyroxine 75 mcg tablet 75 mcg PO DAILY 10/25/24 01/09/25 History potassium gluconate 595 mg (99 mg) 595 mg PO DAILY 10/25/24 10/25/24 History tablet acetaminophen 325 mg tablet 650 mg (2 x 325 mg) PO Q6H PRN PRN 11/30/24 Unknown Rx Pain 1-07/09 or Fever #0 tabs aspirin 81 mg chewable tablet 81 mg PO QHS 30 days #30 tabs 11/30/24 01/10/25 Rx meclizine 25 mg tablet 25 mg PO 4X/DAY PRN PRN 11/30/24 Unknown Rx (Travel-Ease (meclizine)) DIZZINESS/VERTIGO #0 tabs midodrine 5 mg tablet 10 mg (2 x 5 mg) PO TIDCM #0 tabs 11/30/24 01/09/25 Rx Allergy/AdvReac Type Severity Reaction Status Date / Time hydrochlorothiazide AdvReac Intermediate Constipatio Verified 01/09/25 21:23 n Family History Father CAD (coronary artery disease) Mother CHF (congestive heart failure) Sister Hypertension Surgical History History of appendectomy History of cholecystectomy History of left heart catheterization (06/04/08) History of coronary angioplasty (09/20/07) History of laparoscopic cholecystectomy History of total hysterectomy Social History housing: house Smoking Status: Never smoker alcohol intake: never substance use type: does not use ROS Constitutional Constitutional: Reports weakness; Denies chills or fever(s) Eyes Eyes: Denies blurry vision ENT HEENT: Denies abnormal hearing Cardiovascular Cardiovascular: Denies chest pain Respiratory/Chest Respiratory/Chest: Denies cough or shortness of breath at rest Gastrointestinal Gastrointestinal: Denies abdominal pain, nausea or vomiting Genitourinary Genitourinary: Reports dysuria and hematuria Musculoskeletal Musculoskeletal: Reports back pain Integumentary Integumentary: Denies dry skin Neurologic Neurologic: Denies abnormal gait Psychiatric Psychiatric: Denies anxiety Vital Signs Vital Signs Vital Signs: 01/09/25 21:23 01/09/25 21:25 01/09/25 22:25 Temperature 97.9 F 97.9 F 97.9 F Temperature Source Oral Oral Oral Pulse Rate 87 87 91 Respiratory Rate 18 18 19 H Blood Pressure 129/72 H 129/72 H 132/61 H Blood Pressure Mean 91 91 84 Pulse Ox 97 100 97 Oxygen Delivery Method Room Air Room Air Room Air 01/09/25 23:00 01/10/25 00:00 01/10/25 00:59 Temperature 97.9 F 97.9 F 97.8 F Temperature Source Oral Oral Oral Pulse Rate 64 89 90 Respiratory Rate 18 18 19 H Blood Pressure 134/67 H 134/67 H 137/89 H Blood Pressure Mean 89 89 105 Pulse Ox 97 92 95 Oxygen Delivery Method Room Air Room Air Room Air 01/10/25 01:00 01/10/25 02:00 01/10/25 02:08 Temperature 97.8 F 97.8 F Temperature Source Oral Pulse Rate 83 83 Respiratory Rate 18 18 Blood Pressure 137/89 H 131/86 H 131/86 H Blood Pressure Mean 105 101 101 Pulse Ox 94 94 Oxygen Delivery Method Room Air Physical Exam Const alert and oriented x3 General Appearance: cooperative and well developed HEENT normocephalic and head/scalp atraumatic Eyes PERRL Neck no lymphadenopathy Lymph Lymphatic: no lymphadenopathy noted Resp normal respiratory effort, normal air movement and clear to auscultation bilaterally Cardio regular rate, regular rhythm, S1 normal heart sound and S2 normal heart sound GI normal to inspection, nondistended, normoactive bowel sounds Extremity normal capillary refill Skin General Skin Exam: no breakdown Neuro no focal motor deficits and no sensory deficits noted Motor Exam: general weakness Psych thought process normal, cooperative and affect normal Results Lab / Micro Data 01/09/25 23:49 01/09/25 23:49 Labs: Laboratory Results - last 24 hr 01/09/25 21:37: Urine Color Yellow, Urine Clarity Cloudy, Urine pH 9.0, Ur Specific [place] 1.015, Urine Protein 100 H, Urine Glucose (UA) Normal, Urine Ketones Negative, Urine Occult Blood 250 H, Urine Nitrite Negative, Urine Bilirubin Negative, Urine Urobilinogen Normal, Ur Leukocyte Esterase 500 H, Urine RBC 0-5 SEEN, Urine WBC 0-5 SEEN, Ur Squamous Epith Cells 0 SEEN, Amorphous Sediment 1+, Urine Bacteria 4+, Urine Mucus 0 SEEN 01/09/25 23:49: WBC 5.1, RBC 3.97 L, Hgb 11.4 L, Hct 36.3 L, MCV 91.4, MCH 28.7, MCHC 31.4 L, RDW Std Deviation 49.1 H, RDW Coeff of Cory 14.6, Plt Count 290, MPV 9.8, Immature Gran % (Auto) 0.400, Neut % (Auto) 66.3, Lymph % (Auto) 18.6 L, [place] % (Auto) 12.7 H, Eos % (Auto) 1.6, Baso % (Auto) 0.4, Absolute Neuts (auto) 3.4, Absolute Lymphs (auto) 0.94, Nucleated RBC % 0, Sodium 139, Potassium 4.1, Chloride 102, Carbon Dioxide 27.9, Anion Gap 9, BUN 16, Creatinine 0.72, Est GFR (MDRD) Non-Af 85, BUN/Creatinine Ratio 22.6 H, Glucose 107 H, Lactic Acid 1.2, Calcium 10.4 Imaging Radiology Impression Abdomen/Pelvis CT 01/10/25 00:06 IMPRESSION: Mild bilateral basilar atelectatic pulmonary changes. Prior cholecystectomy. Hepatic steatosis. Small sliding hiatal hernia. Diffuse thickening of the stomach, probably gastritis. Right renal simple cyst measuring 2.3 cm. Prior hysterectomy. Moderate diffuse thickening of the bladder, probably cystitis. Bilateral urothelial thickening, probably an ascending urinary tract infection. Mild osteopenia. Mild diffuse spondylosis. Mild chronic compression fracture of T11 vertebral body. Prior appendectomy. Nonobstructing stones in the dependent aspect of the bladder with the largest measuring 3 mm. Chronic deformity of the left inferior pubic ramus, probably secondary to healed fracture. Uncomplicated colonic diverticulosis. Reading Location: [place] [id number] Assessment & Plan Assessment/Plan (1) Current use of residential anticoagulation: (2) Adult failure to thrive: (3) Generalized weakness: (4) Inability to walk: (5) Cystitis: (6) GERD (gastroesophageal reflux disease): (7) Atherosclerotic heart disease of [place] coronary artery without angina pectoris: QUALIFIERS: [place] vs. transplanted heart: [place] heart Qualified Code(s): I25.10 - Atherosclerotic heart disease of [place] coronary artery without angina pectoris (8) Essential (primary) hypertension: (9) Hyperlipidemia: QUALIFIERS: Hyperlipidemia type: pure hypercholesterolemia Qualified Code(s): E78.00 - Pure hypercholesterolemia, unspecified; E78.0 - Pure hypercholesterolemia PLAN: Plan 1. Failure to thrive–admit patient to general medical floor, consult case management for long-term discharge planning, consult physical therapy for assistance with strengthening assessment 2. Urinary tract infection–Rocephin 1 g IV every 24 hours, repeat CBC BMP in the morning, encourage fluids 3. Hypertension–continue routine antihypertensive therapy 4. Hyperlipidemia–continue statin medication 5. DVT prophylaxis–low molecular weight heparin 6. CODE STATUS–DNR [facility] arrest confirmed with patient and family Charges/Coding Visit Charges Inpatient E&M: 62492 Init Hosp L2
--- OUTSIDE RECORDS SUMMARY | 2025-01-10 02:42 | XMS RPT_ITS | CCD ---
Author Organization [facility] Care Team Providers Care Chief Cardiopulmonary Technologist Name Role Phone Kimber KELSEY, Vivien Quintana Unavailable Coty CONTROLLER REPAIRER AND TESTER, Kale Kendall Unavailable DeFinis, Harumi Y Unavailable Unavailable DeFinis, Harumi Y Unavailable Unavailable DeFinis, Harumi Y Unavailable Unavailable DeFinis, Harumi Y Unavailable Unavailable DeFinis, Harumi Y Unavailable Unavailable DeFinis, Harumi Y Unavailable Unavailable MD Davis Cyril S Unavailable DeFinis, Harumi Y Unavailable Unavailable DeFinis, Harumi Y Unavailable Unavailable DeFinis, Harumi Y Unavailable Unavailable Roof CONTROLLER REPAIRER AND TESTER, Kale H Unavailable Dr. Lilly Fletcher Primary Care Provider Dr. Lilly Fletcher Referring Provider [phone] Sanjay TORRES, CONTROLLER REPAIRER AND TESTER-C Ginger Attending Provider Sanjay TORRES, CONTROLLER REPAIRER AND TESTER-C Ginger Referring Provider Sanjay TORRES, CONTROLLER REPAIRER AND TESTER-C Ginger Other Provider Dr. Elie Davis Attending [...] Dr. Lilly Fletcher Referring Provider Sanjay TORRES, CONTROLLER REPAIRER AND TESTER-C Ginger Attending Provider PEDRITO Hay Attending Provider Justine OHARA, Dr. Lilly Barnes Primary Care Provider Reginaldo OHARA, Dr. Thompson Referring Provider Reginaldo OHARA, Dr. Thompson Emergency Provider Reginaldo OHARA, Dr. Thompson Attending Provider Dr. Jaylen Jack DO Emergency Provider Dr. Jayeln Jack DO Attending Provider Justine OHARA, Dr. Lilly Barnes Referring Provider Coty CONTROLLER REPAIRER AND TESTER-C, Kale Kendall Attending Provider Dr. Donovan Pierson DO Emergency Provider Roof CONTROLLER REPAIRER AND TESTER-C, Kale Kendall Referring Provider Dr. Donovan Pierson [...] Referring Provider Coty TORRES-CKale Attending Physician Coty CONTROLLER REPAIRER AND TESTER-C, Kale Kendall Referring Provider Susan OHARA, Dr. [...] Admitting Unavailable Aranza Little Consulting Unavailable Roof CONTROLLER REPAIRER AND TESTER, Kale H Referring Unavailable Jolliff, Lilly S Primary Care Unavailable Elie Davis Attending Unavailable Ginger Grace Attending Unavailable Care Physician, No Primary Primary Care Unava ilable Care Physician, No Primary Referring Unava ilable Roof CONTROLLER REPAIRER AND TESTER, Kale H Referring Unavailable Roof CONTROLLER REPAIRER AND TESTER, Kale H Attending Unavailable Jolliff, Lilly S Primary Care Unavailable Jaylen Jack Attending Unavailable Jolliff, Lilly S Primary Care Unavailable Donovan Pierson Attending Unavailable Jolliff, Lilly S Primary Care Unavailable Donovan Pierson Attending Unavailable Care Physician, No Primary Primary Care Unava ilable Franko Franco Attending Unavailable Seth Flores Consulting Unavailable Roof CONTROLLER REPAIRER AND TESTER, Kale H Attending Unavailable Jolliff, Lilly S Referring Unavailable Jolliff, Lilly S Primary Care Unavailable Roof CONTROLLER REPAIRER AND TESTER, Kale H Attending Unavailable Jolliff, Lilly S Referring Unavailable Jolliff, Lilly S Primary Care Unavailable Reynaldo Oliva Attending Unavailable [facility] Primary Care Unavailable Mateusz Bennett Attending Unavailable Care Physician, No Primary Primary Care Unava ilable Roof CONTROLLER REPAIRER AND TESTER, Kale H Referring Unavailable Roof CONTROLLER REPAIRER AND TESTER, Kale Kendall Attending Unavailable Jay Hair Attending Unavailable Jay Hair Referring Unavailable Jolliff, Lilly S Primary Care Unavailable Aranza Little Consulting Unavailable [facility] Primary Care Unavailable Seth Flores Attending Unavailable Aranza Little Admitting Unavailable [facility] Primary Care Unavailable aPul Lauren Attending Unavailable Reynaldo Oliva Consulting Unavailable Reynaldo Oliva Admitting Unavailable [facility] Primary Care Unavailable Mateusz Bennett Attending Unavailable Roof CONTROLLER REPAIRER AND TESTER, Kale Kendall Attending Unavailable Roof CONTROLLER REPAIRER AND TESTER, Kale H Referring Unavailable Jolliff, Lilly S Primary Care Unavailable [facility] Primary Care Unavailable Roof CONTROLLER REPAIRER AND TESTER, Kale H Referring Unavailable Roof CONTROLLER REPAIRER AND TESTER, Kale Kendall Attending Unavailable [facility] Primary Care Unavailable Mateusz Bennett Attending Unavailable Seth Flores Attending Unavailable Allergies Allergy Classification Reported Allergen(s) Allergy Type Date of Onset Reaction(s) Facility (16 sources) hydroCHLOROthiazide Drug Allergy 12-18-19 22 Drug-induced constipation with proper administration [facility] Comment on above: and urinary incontin ence (1 source) hydroCHLOROthiazide Drug Allergy 11-27-19 [facility] Repository Medications Current Medications Medication Drug [...] tablet by mouth daily Enteric Coated ASPIRIN [id number] Polly Mustafa Start: 09-16-2010 take 1 tablet by diomedes th once daily ASPIRIN 81 MG TABS One tablet by mouth daily Enteric Coated ASPIRIN [id number] Polly Mustafa Start: 09-16-2010 take 1 tablet by diomedes th once daily ASPIRIN EC 81 MG TBEC One tablet by mouth daily ASPIRIN [id number] Nella Valerio carvedilol 25 mg oral tablet [...] One tablet by mouth twice daily CARVEDILOL [id number] Kale Ansari NP Start: 09-24-2016 take 1 tablet by diomedes th twice daily COREG 6.25 MG TABS One tablet by mouth twice daily CARVEDILOL [id number] Kale Kendall Coty CONTROLLER REPAIRER AND TESTER 24 hr dilTIAZem hydrochlorid e 120 mg [...] 0.05 % CREA as directed CLOBETASOL PROPIONATE [id number] Nella Valerio Start: 11-23-2015 End: 09-08-2016 TEMOVATE 0.05 % CREA as dire cted CLOBETASOL PROPIONATE [id number] Nella Y DeFinis Start: 11-23-2015 TEMOVATE 0.05 % CREA as directed CLOBETASOL PROPIONATE [id number] Mary Prieto RN Start: 10-26-2015 End: 09-01-2017 [...] TABS One tablet by mouth daily HYDROCHLOROTHIAZIDE [id number] Vivien Haynes PA-C ipratropium (20 sources) Anticholinergic [...] End: 09-01-2017 Start: 10-26-2015 End: 09-01-2017 Ipratropium [place] 1 SPRAY spray,non-aerosol Discontinued 2 NMA NASAL THREE TIMES A DAY 2 0 October 26, 2015 11:11am September 01, 2017 11:15am Start: 10-26-2015 End: 09-01-2017 Ipratropium [place] Disconti nued 2 SPRAY NASAL THREE TIMES A DAY 2 October 26, 2015 10:11am September 01, 2017 10:15am isosorbide (20 sources) Start: 03-25-2011 End: 08-13-2011 take 1 tablet by mouth once daily IMDUR 30 MG [id number] One tablet by mouth daily ISOSORBIDE MONONITRATE [id number] Sofie Cornejo RN Start: 03-25-2011 take 1 tablet by diomedes th once daily IMDUR 30 MG [id number]-EOQ One tablet by mouth daily ISOSORBIDE MONONITRATE [id number] Yolanda Larose RN lisinopril 20 mg oral [...] TABS One tablet by mouth daily LISINOPRIL [id number] Kale Ansari NP meloxicam 15 mg oral [...] TABS One tablet by mouth daily NIACIN [id number] Susanne Jordan RN Start: 09-16-2010 End: 03-04-2012 take 1 tablet by mouth at bedtime NIASPAN 500 MG CR-TABS 1 tablet by mouth at bedtime with low fat snack NIACIN (ANTIHYPERLIPIDEMIC) [id number] Susanne Jordan RN nitroglycerin 0.4 mg subling [...] 5 min up to 3 X NITROGLYCERIN [id number] Elie Davis MD Start: 09-16-2010 NITROGLYCERIN 0.4 MG/HR PT24 1 tablet under tongue every 5 min up to 3 X NITROGLYCERIN 18178710775 Polly Mustafa omeprazole 20 mg delayed rel ease oral capsule (20 sources) Proton Pump Inhibitor Start: 10-25-2015 End: 08-01-2024 Start: 03-04-2011 take 1 capsule by mo ut twice daily PRILOSEC 20 MG CPDR One capsule by mouth twice daily OMEPRAZOLE [id number] Elie Davis MD Start: 03-04-2011 take 1 capsule by mo ut twice daily PRILOSEC 20 MG CPDR One capsule by mouth twice daily OMEPRAZOLE [id number] Elie Davis MD Start: 09-16-2010 take 2 tablets by mo han twice daily PRILOSEC 20 MG CPDR Two tablets by mouth twice daily OMEPRAZOLE 37807676261 Polly Mustafa Start: 09-16-2010 take 2 tablets by mo uth twice daily PRILOSEC 20 MG CPDR Two tablets by mouth twice daily OMEPRAZOLE 98171261475 Polly Mustafa sertraline 25 mg oral tablet [...] sources) Long-term current use of anticoagulant; Translations: [nursing home (current) use of anticoagulants] 11-27-2024 Episodic Other [...] (4 sources) Long-term drug therapy; Translations: [Other emt intermediate (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] Onset: 09-16-2010 Urinary tract infections (14 sources) Cystitis; Translations: [Cystitis, unspecified without hematuria] 03-26-2023 Episodic Past or Other Problems Problem Classification Problem Date Documented Da te Episodic/Chronic Other aftercare (10 sources) Other residential (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; Translations: [Other emt intermediate [...] width (RBC) [Ratio] 14.6 % Normal 11.6-14.6 [facility] Comment on above: Order Comment: 310.1 Performed By: #### L 100.0500, L500.4050 ####[facility] [address] [place], [address] Hematocrit (Bld) [Volume fraction] 36.6 % Low 37-47 [facility] Comment on above: Order Comment: 310.1 Performed By: #### L 100.0500, L500.4050 ####[facility] [address] [place], [address] Hemoglobin (Bld) [Mass/Vol] 11.8 g/dL Low 12.0-15.0 [facility] Comment on above: Order Comment: 310.1 Performed By: #### L 100.0500, L500.4050 ####[facility] [address] [place], [address] MCH (RBC) [Entitic mass] 29.5 pg Normal 27.0-32.0 [facility] Comment on above: Order Comment: 310.1 Performed By: #### L 100.0500, L500.4050 ####[facility] [address] [place], [address] MCHC (RBC) [Mass/Vol] 32.2 g/dL Normal 32-36 [facility] Comment on above: Order Comment: 310.1 Performed By: #### L 100.0500, L500.4050 ####[facility] [address] [place], [address] MCV (RBC) [Entitic vol] 91.5 fL Normal 81-99 [facility] Comment on above: Order Comment: 310.1 Performed By: #### L 100.0500, L500.4050 ####[facility] [address] [place], [address] Platelet mean volume (Bld) [Entitic vol] 9.7 fL Normal 6.2-12.0 [facility] Comment on above: Order Comment: 310.1 Performed By: #### L 100.0500, L500.4050 ####[facility] [address] [place], [address] Platelets (Bld) [#/Vol] 274 10*3/uL Normal 150-450 [facility] Comment on above: Order Comment: 310.1 Performed By: #### L 100.0500, L500.4050 ####[facility] [address] [place], [address] RBC (Bld) [#/Vol] 4.00 10*6/uL Low 4.2-5.4 [facility] Comment on above: Order Comment: 310.1 Performed By: #### L 100.0500, L500.4050 ####[facility] [address] [place], [address] RDW SD 48.9 fl High 35.1-43.9 [facility] Comment on above: Order Comment: 310.1 Performed By: #### L 100.0500, L500.4050 ####[facility] [address] [place], [address] WBC (Bld) [#/Vol] 7.0 10*3/uL Normal 4.4-11.0 [facility] Comment on above: Order Comment: 310.1 Performed By: #### L 100.0500, L500.4050 ####[facility] [address] [place], [address] Comprehensive Metabolic Prof ilon 01-03-2025 Albumin [Mass/Vol] 3.2 g/dL Low 3.4-4.8 [facility] Comment on above: Order Comment: 310.1 Performed By: #### L 100.0500, L500.4050 ####[facility] [address] [place], [address] Albumin/Globulin [Mass ratio] 1.1 {ratio} Normal 0.9-2.4 [facility] Comment on above: Order Comment: 310.1 Performed By: #### L 100.0500, L500.4050 ####[facility] [address] [place], [address] ALK PHOS 112 U/L High 35-104 [facility] Comment on above: Order Comment: 310.1 Performed By: #### L 100.0500, L500.4050 ####[facility] [address] [place], [address] ALT [Catalytic activity/Vol] 26 U/L Normal <=34 [facility] Comment on above: Order Comment: 310.1 Performed By: #### L 100.0500, L500.4050 ####[facility] [address] [place], [address] AST [Catalytic activity/Vol] 20 U/L Normal <=31 [facility] Comment on above: Order Comment: 310.1 Performed By: #### L 100.0500, L500.4050 ####[facility] [address] [place], [address] Bilirubin [Mass/Vol] 0.61 mg/dL Normal 0.00-1.[address] [facility] Comment on above: Order Comment: 310.1 Performed By: #### L 100.0500, L500.4050 ####[facility] [address] [place], [address] BUN/CRE 20.3 RATIO High 10-20 [facility] Comment on above: Order Comment: 310.1 Performed By: #### L 100.0500, L500.4050 ####[facility] [address] [place], [address] Calcium [Mass/Vol] 10.5 mg/dL Normal 7.6-11.0 [facility] Comment on above: Order Comment: 310.1 Performed By: #### L 100.0500, L500.4050 ####[facility] [address] [place], [address] Chloride [Moles/Vol] 100 mmol/L Normal 98-[address] [facility] Comment on above: Order Comment: 310.1 Performed By: #### L 100.0500, L500.4050 ####[facility] [address] [place], [address] CO2 [Moles/Vol] 30.6 mmol/L Normal 21.0-32.0 [facility] Comment on above: Order Comment: 310.1 Performed By: #### L 100.0500, L500.4050 ####[facility] [address] [place], [address] Creatinine [Mass/Vol] 0.50 mg/dL Low 0.70-1.20 [facility] Comment on above: Order Comment: 310.1 Performed By: #### L 100.0500, L500.4050 ####[facility] [address] [place], [address] GAP 7 Normal 5-15 [facility] Comment on above: Order Comment: 310.1 Performed By: #### L 100.0500, L500.4050 ####[facility] [address] [place], [address] GFR/1.73 sq M.predicted among non-blacks MDRD (S/P/Bld) [Vol rate/Area] 95 mL/min/{1.73_m2} Normal >60 [facility] Comment on above: Order Comment: 310.1 Result Comment: mL/m in/1.73m2 CKD-EPI Creatinine Equation (2020) Performed By: #### L 100.0500, L500.4050 ####[facility] [address] [place], [address] Globulin (S) [Mass/Vol] 2.9 g/dL Normal 2.2-4.2 [facility] Comment on above: Order Comment: 310.1 Performed By: #### L 100.0500, L500.4050 ####[facility] [address] [place], [address] Glucose [Mass/Vol] 111 mg/dL High 70-99 [facility] Comment on above: Order Comment: 310.1 Performed By: #### L 100.0500, L500.4050 ####[facility] [address] [place], [address] Potassium [Moles/Vol] 4.1 mmol/L Normal 3.3-5.1 [facility] Comment on above: Order Comment: 310.1 Performed By: #### L 100.0500, L500.4050 ####[facility] [address] [place], [address] Sodium [Moles/Vol] 137 mmol/L Normal 133-145 [facility] Comment on above: Order Comment: 310.1 Performed By: #### L 100.0500, L500.4050 ####[facility] [address] [place], [address] T PROT 6.2 g/dL Normal 5.9-8.4 [facility] Comment on above: Order Comment: 310.1 Performed By: #### L 100.0500, L500.4050 ####[facility] [address] [place], [address] Urea nitrogen [Mass/Vol] 10 mg/dL Normal 4-19 [facility] Comment on above: Order Comment: 310.1 Performed By: #### L 100.0500, L500.4050 ####[facility] [address] [place], [address] Urine Cultureon 12-27-2024 URC Normal [facility] Comment on above: Performed By: #### M 100.2200, L400.0001 ####[facility] [address] [place], [address] Urinalysis, Completeon 12-23 RBC 0-5 SEEN Normal 0-5 [facility] Comment on above: Order Comment: GRACE TER SPECIMEN Performed By: #### M 100.2200, L400.0001 ####[facility] [address] [place], [address] TRIPLE PHOS RARE Normal [facility] Comment on above: Order Comment: GRACE TER SPECIMEN Performed By: #### M 100.2200, L400.0001 ####[facility] [address] [place], [address] BACTERIA 3+ /hpf Normal None Seen [facility] Comment on above: Order Comment: GRACE TER SPECIMEN Performed By: #### M 100.2200, L400.0001 ####[facility] [address] [place], [address] WBC 10-25 SEEN Normal 0-5 [facility] Comment on above: Order Comment: GRACE TER SPECIMEN Performed By: #### M 100.2200, L400.0001 ####[facility] [address] [place], [address] EPI,SQUAMOUS 0 SEEN Normal 5-10 [facility] Comment on above: Order Comment: GRACE TER SPECIMEN Performed By: #### M 100.2200, L400.0001 ####[facility] [address] [place], [address] Mucus Ql (Urine sed) 0 SEEN Normal [facility] Comment on above: Order Comment: GRACE TER SPECIMEN Performed By: #### M 100.2200, L400.0001 ####[facility] [address] [place], [address] Basic Metabolic Profile (BMP )on 12-19-2024 BUN/CRE 21.8 RATIO High - [facility] Comment on above: Order Comment: 310.1 Performed By: #### L 100.0500, L500.2500 ####[facility] [address] [place], [address] Calcium [Mass/Vol] 10.0 mg/dL Normal 7.6-11.0 [facility] Comment on above: Order Comment: 310.1 Performed By: #### L 100.0500, L500.2500 ####[facility] [address] [place], [address] Chloride [Moles/Vol] 101 mmol/L Normal 98-[address] [facility] Comment on above: Order Comment: 310.1 Performed By: #### L 100.0500, L500.2500 ####[facility] [address] [place], [address] CO2 [Moles/Vol] 31.0 mmol/L Normal 21.0-32.0 [facility] Comment on above: Order Comment: 310.1 Performed By: #### L 100.0500, L500.2500 ####[facility] [address] [place], [address] Creatinine [Mass/Vol] 0.50 mg/dL Low 0.70-1.20 [facility] Comment on above: Order Comment: 310.1 Performed By: #### L 100.0500, L500.2500 ####[facility] [address] [place], [address] GAP 7 Normal 5-15 [facility] Comment on above: Order Comment: 310.1 Performed By: #### L 100.0500, L500.2500 ####[facility] [address] [place], [address] GFR/1.73 sq M.predicted among non-blacks MDRD (S/P/Bld) [Vol rate/Area] 95 mL/min/{1.73_m2} Normal >60 [facility] Comment on above: Order Comment: 310.1 Result Comment: mL/m in/1.73m2 CKD-EPI Creatinine Equation (2020) Performed By: #### L 100.0500, L500.2500 ####[facility] [address] [place], [address] Glucose [Mass/Vol] 104 mg/dL High 70-99 [facility] Comment on above: Order Comment: 310.1 Performed By: #### L 100.0500, L500.2500 ####[facility] [address] [place], [address] Potassium [Moles/Vol] 3.6 mmol/L Normal 3.3-5.1 [facility] Comment on above: Order Comment: 310.1 Performed By: #### L 100.0500, L500.2500 ####[facility] [address] [place], [address] Sodium [Moles/Vol] 139 mmol/L Normal 133-145 [facility] Comment on above: Order Comment: 310.1 Performed By: #### L 100.0500, L500.2500 ####[facility] [address] [place], [address] Urea nitrogen [Mass/Vol] 11 mg/dL Normal 4-19 [facility] Comment on above: Order Comment: 310.1 Performed By: #### L 100.0500, L500.2500 ####[facility] [address] [place], [address] CBC-Complete Blood Cnt No Di ffon 12-19-2024 Erythrocyte distribution width (RBC) [Ratio] 14.5 % Normal 11.6-14.6 [facility] Comment on above: Order Comment: 310.1 Performed By: #### L 100.0500, L500.2500 ####[facility] [address] [place], [address] Hematocrit (Bld) [Volume fraction] 34.6 % Low 37-47 [facility] Comment on above: Order Comment: 310.1 Performed By: #### L 100.0500, L500.2500 ####[facility] [address] [place], [address] Hemoglobin (Bld) [Mass/Vol] 11.4 g/dL Low 12.0-15.0 [facility] Comment on above: Order Comment: 310.1 Performed By: #### L 100.0500, L500.2500 ####[facility] [address] [place], [address] MCH (RBC) [Entitic mass] 30.1 pg Normal 27.0-32.0 [facility] Comment on above: Order Comment: 310.1 Performed By: #### L 100.0500, L500.2500 ####[facility] [address] [place], [address] MCHC (RBC) [Mass/Vol] 32.9 g/dL Normal 32-36 [facility] Comment on above: Order Comment: 310.1 Performed By: #### L 100.0500, L500.2500 ####[facility] [address] [place], [address] MCV (RBC) [Entitic vol] 91.3 fL Normal 81-99 [facility] Comment on above: Order Comment: 310.1 Performed By: #### L 100.0500, L500.2500 ####[facility] [address] [place], [address] Platelet mean volume (Bld) [Entitic vol] 9.7 fL Normal 6.2-12.0 [facility] Comment on above: Order Comment: 310.1 Performed By: #### L 100.0500, L500.2500 ####[facility] [address] [place], [address] Platelets (Bld) [#/Vol] 246 10*3/uL Normal 150-450 [facility] Comment on above: Order Comment: 310.1 Performed By: #### L 100.0500, L500.2500 ####[facility] [address] [place], [address] RBC (Bld) [#/Vol] 3.79 10*6/uL Low 4.2-5.4 [facility] Comment on above: Order Comment: 310.1 Performed By: #### L 100.0500, L500.2500 ####[facility] [address] [place], [address] RDW SD 47.9 fl High 35.1-43.9 [facility] Comment on above: Order Comment: 310.1 Performed By: #### L 100.0500, L500.2500 ####[facility] [address] [place], [address] WBC (Bld) [#/Vol] 5.9 10*3/uL Normal 4.4-11.0 [facility] Comment on above: Order Comment: 310.1 Performed By: #### L 100.0500, L500.2500 ####[facility] [address] [place], [address] Absolute lymphocyte countOrd ered By: Paul Lauren on 11-28-2024 Lymphocytes Auto (Unsp spec) [#/Vol] 0.54 10*3/uL Low 0.83-4.51 [facility] Anion gap in Serum or Plasma Ordered By: Paul Lauren on 11-28-2024 Anion gap [Moles/Vol] 13 mmol/L 5-15 [facility] Automated lymphocyte count a s percentage of total leukocytesOrdered By: Paul Lauren on 11-28-2024 Lymphocytes/100 WBC Auto (Unsp spec) 7.3 % Low 19-41 [facility] BUN/creatinine ratioOrdered By: Paul Lauren on 11-28-2024 Urea nitrogen/Creatinine [Mass ratio] 35.0 mg/mg High 10-20 [facility] Basic Metabolic Profile (BMP )on 11-28-2024 BUN/CRE 35.0 RATIO High 10- [facility] Comment on above: Order Comment: MG1 3 N Performed By: #### L 100.0100, L500.2500 ####[facility] [address] [place], [address] Calcium [Mass/Vol] 9.9 mg/dL Normal 7.6-11.0 [facility] Comment on above: Order Comment: MG1 3 N Performed By: #### L 100.0100, L500.2500 ####[facility] [address] [place], [address] Chloride [Moles/Vol] 102 mmol/L Normal 98-[address] [facility] Comment on above: Order Comment: MG1 3 N Performed By: #### L 100.0100, L500.2500 ####[facility] [address] [place], [address] CO2 [Moles/Vol] 21.2 mmol/L Normal 21.0-32.0 [facility] Comment on above: Order Comment: MG1 3 N Performed By: #### L 100.0100, L500.2500 ####[facility] [address] [place], [address] Creatinine [Mass/Vol] 0.59 mg/dL Low 0.70-1.20 [facility] Comment on above: Order Comment: MG1 3 N Performed By: #### L 100.0100, L500.2500 ####[facility] [address] [place], [address] ECRCL 56.86 ml/min Normal 50-250 [facility] Comment on above: Order Comment: MG1 3 N Performed By: #### L 100.0100, L500.2500 ####[facility] [address] [place], [address] GAP 13 Normal 5-15 [facility] Comment on above: Order Comment: MG1 3 N Performed By: #### L 100.0100, L500.2500 ####[facility] [address] [place], [address] GFR/1.73 sq M.predicted among non-blacks MDRD (S/P/Bld) [Vol rate/Area] 91 mL/min/{1.73_m2} Normal >60 [facility] Comment on above: Order Comment: MG1 3 N Result Comment: mL/m in/1.73m2 CKD-EPI Creatinine Equation (2020) Performed By: #### L 100.0100, L500.2500 ####[facility] [address] [place], [address] Glucose [Mass/Vol] 125 mg/dL High 70-99 [facility] Comment on above: Order Comment: MG1 3 N Performed By: #### L 100.0100, L500.2500 ####[facility] [address] [place], [address] Potassium [Moles/Vol] 4.8 mmol/L Normal 3.3-5.1 [facility] Comment on above: Order Comment: MG1 3 N Performed By: #### L 100.0100, L500.2500 ####[facility] [address] [place], [address] Sodium [Moles/Vol] 136 mmol/L Normal 133-145 [facility] Comment on above: Order Comment: MG1 3 N Performed By: #### L 100.0100, L500.2500 ####[facility] [address] [place], [address] Urea nitrogen [Mass/Vol] 21 mg/dL High 4-19 [facility] Comment on above: Order Comment: MG1 3 N Performed By: #### L 100.0100, L500.2500 ####[facility] [address] [place], [address] Basophil percentageOrdered B y: Paul Lauren on 11-28-2024 Basophils/100 WBC (Bld) 0.4 % 0-1 [facility] CBC W/Diff, Automatedon 11-01 Absolute Lymph 0.54 X10 3/uL Low 0.83-4.51 [facility] Comment on above: Performed By: #### L 100.0100, L500.2500 ####[facility] [address] [place], [address] Absolute Neut 5.9 X10 3/uL Normal 2.0-7.7 [facility] Comment on above: Performed By: #### L 100.0100, L500.2500 ####[facility] [address] [place], [address] Basophils/100 WBC (Bld) 0.4 % Normal 0-1 [facility] Comment on above: Performed By: #### L 100.0100, L500.2500 ####[facility] [address] [place], [address] Eosinophils/100 WBC (Bld) 1.3 % Normal 0-5 [facility] Comment on above: Performed By: #### L 100.0100, L500.2500 ####[facility] [address] [place], [address] Erythrocyte distribution width (RBC) [Ratio] 13.6 % Normal 11.6-14.6 [facility] Comment on above: Performed By: #### L 100.0100, L500.2500 ####[facility] [address] [place], [address] Hematocrit (Bld) [Volume fraction] 41.3 % Normal 37-47 [facility] Comment on above: Performed By: #### L 100.0100, L500.2500 ####[facility] [address] [place], [address] Hemoglobin (Bld) [Mass/Vol] 12.8 g/dL Normal 12.0-15.0 [facility] Comment on above: Performed By: #### L 100.0100, L500.2500 ####[facility] [address] [place], [address] IG% 0.300 Normal 0.0-0.9 [facility] Comment on above: Result Comment: IG% - Immature Granulocytes (promyelocytes, myelocytes andmetamyelocytes) > 1% indicates that a LEFT SHIFT is Present. Performed By: #### L 100.0100, L500.2500 ####[facility] [address] [place], [address] Lymphocytes/100 WBC (Bld) 7.3 % Low 19-41 [facility] Comment on above: Performed By: #### L 100.0100, L500.2500 ####[facility] [address] [place], [address] MCH (RBC) [Entitic mass] 29.6 pg Normal 27.0-32.0 [facility] Comment on above: Performed By: #### L 100.0100, L500.2500 ####[facility] [address] [place], [address] MCHC (RBC) [Mass/Vol] 31.0 g/dL Low 32-36 [facility] Comment on above: Performed By: #### L 100.0100, L500.2500 ####[facility] [address] [place], [address] MCV (RBC) [Entitic vol] 95.4 fL Normal 81-99 [facility] Comment on above: Performed By: #### L 100.0100, L500.2500 ####[facility] [address] [place], [address] Monocytes/100 WBC (Bld) 11.3 % High 0-10 [facility] Comment on above: Performed By: #### L 100.0100, L500.2500 ####[facility] [address] [place], [address] Neutrophils/100 WBC (Bld) 79.4 % High 47-70 [facility] Comment on above: Performed By: #### L 100.0100, L500.2500 ####[facility] [address] [place], [address] Nucleated RBC (Bld) [#/Vol] 0 10*3/uL Normal 0-5 [facility] Comment on above: Performed By: #### L 100.0100, L500.2500 ####[facility] [address] [place], [address] Platelet mean volume (Bld) [Entitic vol] 9.9 fL Normal 6.2-12.0 [facility] Comment on above: Performed By: #### L 100.0100, L500.2500 ####[facility] [address] [place], [address] Platelets (Bld) [#/Vol] 242 10*3/uL Normal 150-450 [facility] Comment on above: Performed By: #### L 100.0100, L500.2500 ####[facility] [address] [place], [address] RBC (Bld) [#/Vol] 4.33 10*6/uL Normal 4.2-5.4 [facility] Comment on above: Performed By: #### L 100.0100, L500.2500 ####[facility] [address] [place], [address] RDW SD 47.8 fl High 35.1-43.9 [facility] Comment on above: Performed By: #### L 100.0100, L500.2500 ####[facility] [address] [place], [address] WBC (Bld) [#/Vol] 7.4 10*3/uL Normal 4.4-11.0 [facility] Comment on above: Performed By: #### L 100.0100, L500.2500 ####[facility] [address] [place], [address] Carbon dioxide, total [Moles /volume] in Central venous bloodOrdered By: Paul Lauren on 11-28-2024 CO2 [Moles/Vol] 21.2 mmol/L 21.0-32.0 [facility] Chest 1 View (Portable)on Chest 1 View (Portable) Normal [facility] Chloride assayOrdered By: Pino Lauren on 11-28-2024 Chloride [Moles/Vol] 102 mmol/L 98-[address] [facility] Electrocardiogram reportOrde red By: Franko Franco on 11-28-2024 EKG study [facility] Work Phone: Eosinophil percentageOrdered By: Paul Lauren on 11-28-2024 Eosinophils/100 WBC (Bld) 1.3 % 0-5 [facility] Erythrocyte distribution wid th ratioOrdered By: Paul Lauren on 11-28-2024 Erythrocyte distribution width (RBC) [Ratio] 13.6 % 11.6-14.6 [facility] Erythrocyte distribution wid th standard deviationOrdered By: Paul Lauren on 11-28-2024 Erythrocyte distribution width (RBC) [Ratio] 47.8 fl High 35.1-43.9 [facility] Glomerular filtration rate ( GFR) estimation/1.73 sq m using serum, plasma, or whole bOrdered By: Paul Lauren on 11-28-2024 GFR/1.73 sq M.predicted among non-blacks MDRD (S/P/Bld) [Vol rate/Area] 91 mL/min/{1.73_m2} >60 [facility] Hematocrit Auto (Bld) [Volum e fraction]Ordered By: Paul Lauren on 11-28-2024 Hematocrit (Bld) [Volume fraction] 41.3 % 37-47 [facility] Hemoglobin measurementOrdere d By: Paul Lauren on 11-28-2024 Hemoglobin (Bld) [Mass/Vol] 12.8 g/dL 12.0-15.0 [facility] Immature granulocytes/100 WB C Auto (Bld)Ordered By: Paul Lauren on 11-28-2024 Immature granulocytes/100 WBC (Bld) 0.300 % 0.0-0.9 [facility] MCV (mean corpuscular volume ) determinationOrdered By: Paul Lauren on 11-28-2024 MCV (RBC) [Entitic vol] 95.4 fL 81-99 [facility] Mean corpuscular hemoglobin (MCH) determinationOrdered By: Paul Lauren on 11-28-2024 MCH (RBC) [Entitic mass] 29.6 pg 27.0-32.0 [facility] Monocyte percentageOrdered B y: Paul Lauren on 11-28-2024 Monocytes/100 WBC (Bld) 11.3 % High 0-10 [facility] Natriuretic peptide.B prohor len N-Terminal [Mass/volume] in Serum or PlasmaOrdered By: Reynaldo Nguyen on 11-28-2024 Natriuretic peptide.B prohormone N-Terminal [Mass/Vol] 176 pg/mL <1800 [facility] Neutrophil percentageOrdered By: Paul Lauren on 11-28-2024 Neutrophils/100 WBC (Bld) 79.4 % High 47-70 [facility] Phosphoruson 11-28-2024 Phosphate [Mass/Vol] 3.7 mg/dL Normal 2.7-4.[address] [facility] Comment on above: Performed By: #### L 501.2300 ####[facility] [address] [place], [address] Platelet countOrdered By: Pino Lauren on 11-28-2024 Platelets (Bld) [#/Vol] 242 10*3/uL 150-450 [facility] Potassium measurement (mass/ volume)Ordered By: Paul Lauren on 11-28-2024 Potassium (Unsp spec) [Mass/Vol] 4.8 mmol/L 3.3-5.1 [facility] Pro- Brain NATRIURETIC PEPTI Jun 11-28-2024 Natriuretic peptide B (Bld) [Mass/Vol] 176 pg/mL Normal <=1800 [facility] Comment on above: Result Comment: Hear t Failure Unlikely: < 300 pg/mLHeart Failure Likely< 50 Years: > 450 pg/mL50-75 Years: > 900 pg/mL>75 Years: > 1800 pg/mL Performed By: #### L 503.7505 ####[facility] [address] [place], [address] RBC Auto (Bld) [#/Vol]Ordere d By: Paul Lauren on 11-28-2024 RBC (Bld) [#/Vol] 4.33 10*6/uL 4.2-5.4 [facility] Serum creatinine measurement (mass/volume)Ordered By: Paul Lauren on 11-28-2024 Creatinine [Mass/Vol] 0.59 mg/dL Low 0.70-1.20 [facility] Serum glucose measurement (m ass/volume)Ordered By: Paul Lauren on 11-28-2024 Glucose [Mass/Vol] 125 mg/dL High 70-99 [facility] Serum or plasma calcium aaron urement (mass/volume)Ordered By: Paul Lauren on 11-28-2024 Calcium [Mass/Vol] 9.9 mg/dL 7.6-11.0 [facility] Serum or plasma urea nitroge n measurement (mass/volume)Ordered By: Paul Lauren on 11-28-2024 Urea nitrogen [Mass/Vol] 21 mg/dL High 4-19 [facility] Sodium levelOrdered By: Sruthi Lauren on 11-28-2024 Sodium [Moles/Vol] 136 mmol/L 133-145 [facility] White blood cell (WBC) count Ordered By: Paul Lauren on 11-28-2024 WBC (Bld) [#/Vol] 7.4 10*3/uL 4.4-11.0 [facility] Bilirubin, totalOrdered By: Reynaldo Nguyen on 11-27-2024 Bilirubin [Mass/Vol] 0.61 mg/dL 0.00-1.[address] [facility] CBC W/Diff, Automatedon 11-01 Absolute Lymph 1.02 X10 3/uL Normal 0.83-4.51 [facility] Comment on above: Performed By: #### L 500.4100, L501.2300, L500.4050, L100.0100 ####[facility] [address] [place], [address] Absolute Neut 5.1 X10 3/uL Normal 2.0-7.7 [facility] Comment on above: Performed By: #### L 500.4100, L501.2300, L500.4050, L100.0100 ####[facility] [address] [place], [address] Basophils/100 WBC (Bld) 0.3 % Normal 0-1 [facility] Comment on above: Performed By: #### L 500.4100, L501.2300, L500.4050, L100.0100 ####[facility] [address] [place], [address] Eosinophils/100 WBC (Bld) 1.0 % Normal 0-5 [facility] Comment on above: Performed By: #### L 500.4100, L501.2300, L500.4050, L100.0100 ####[facility] [address] [place], [address] Erythrocyte distribution width (RBC) [Ratio] 13.2 % Normal 11.6-14.6 [facility] Comment on above: Performed By: #### L 500.4100, L501.2300, L500.4050, L100.0100 ####[facility] [address] [place], [address] Hematocrit (Bld) [Volume fraction] 40.1 % Normal 37-47 [facility] Comment on above: Performed By: #### L 500.4100, L501.2300, L500.4050, L100.0100 ####[facility] [address] [place], [address] Hemoglobin (Bld) [Mass/Vol] 12.6 g/dL Normal 12.0-15.0 [facility] Comment on above: Performed By: #### L 500.4100, L501.2300, L500.4050, L100.0100 ####[facility] [address] [place], [address] IG% 0.400 Normal 0.0-0.9 [facility] Comment on above: Result Comment: IG% - Immature Granulocytes (promyelocytes, myelocytes andmetamyelocytes) > 1% indicates that a LEFT SHIFT is Present. Performed By: #### L 500.4100, L501.2300, L500.4050, L100.0100 ####[facility] [address] [place], [address] Lymphocytes/100 WBC (Bld) 14.1 % Low 19-41 [facility] Comment on above: Performed By: #### L 500.4100, L501.2300, L500.4050, L100.0100 ####[facility] [address] [place], [address] MCH (RBC) [Entitic mass] 29.0 pg Normal 27.0-32.0 [facility] Comment on above: Performed By: #### L 500.4100, L501.2300, L500.4050, L100.0100 ####[facility] [address] [place], [address] MCHC (RBC) [Mass/Vol] 31.4 g/dL Low 32-36 [facility] Comment on above: Performed By: #### L 500.4100, L501.2300, L500.4050, L100.0100 ####[facility] [address] [place], [address] MCV (RBC) [Entitic vol] 92.4 fL Normal 81-99 [facility] Comment on above: Performed By: #### L 500.4100, L501.2300, L500.4050, L100.0100 ####[facility] [address] [place], [address] Monocytes/100 WBC (Bld) 13.4 % High 0-10 [facility] Comment on above: Performed By: #### L 500.4100, L501.2300, L500.4050, L100.0100 ####[facility] [address] [place], [address] Neutrophils/100 WBC (Bld) 70.8 % High 47-70 [facility] Comment on above: Performed By: #### L 500.4100, L501.2300, L500.4050, L100.0100 ####[facility] [address] [place], [address] Nucleated RBC (Bld) [#/Vol] 0 10*3/uL Normal 0-5 [facility] Comment on above: Performed By: #### L 500.4100, L501.2300, L500.4050, L100.0100 ####[facility] [address] [place], [address] Platelet mean volume (Bld) [Entitic vol] 9.7 fL Normal 6.2-12.0 [facility] Comment on above: Performed By: #### L 500.4100, L501.2300, L500.4050, L100.0100 ####[facility] [address] [place], [address] Platelets (Bld) [#/Vol] 221 10*3/uL Normal 150-450 [facility] Comment on above: Performed By: #### L 500.4100, L501.2300, L500.4050, L100.0100 ####[facility] [address] [place], [address] RBC (Bld) [#/Vol] 4.34 10*6/uL Normal 4.2-5.4 [facility] Comment on above: Performed By: #### L 500.4100, L501.2300, L500.4050, L100.0100 ####[facility] [address] [place], [address] RDW SD 44.5 fl High 35.1-43.9 [facility] Comment on above: Performed By: #### L 500.4100, L501.2300, L500.4050, L100.0100 ####[facility] [address] [place], [address] WBC (Bld) [#/Vol] 7.2 10*3/uL Normal 4.4-11.0 [facility] Comment on above: Performed By: #### L 500.4100, L501.2300, L500.4050, L100.0100 ####[facility] [address] [place], [address] CPK Total, Creatine Kinaseon 11-27-2024 CPK TOTAL 27 U/L Normal 24-195 [facility] Comment on above: Performed By: #### L 501.3620 ####[facility] [address] [place], [address] Calculated very low density lipoprotein (VLDL) cholesterol measurementOrdered By: Reynaldo Nguyen on 11-27-2024 Calculated very low density lipoprotein (VLDL) cholesterol measurement 17 mg/dL 5-40 [facility] Comprehensive Metabolic Prof ilon 11-27-2024 Albumin [Mass/Vol] 3.1 g/dL Low 3.4-4.8 [facility] Comment on above: Performed By: #### L 500.4100, L501.2300, L500.4050, L100.0100 ####[facility] [address] [place], [address] Albumin/Globulin [Mass ratio] 1.3 {ratio} Normal 0.9-2.4 [facility] Comment on above: Performed By: #### L 500.4100, L501.2300, L500.4050, L100.0100 ####[facility] [address] [place], [address] ALK PHOS 90 U/L Normal 35-104 [facility] Comment on above: Performed By: #### L 500.4100, L501.2300, L500.4050, L100.0100 ####[facility] [address] [place], [address] ALT [Catalytic activity/Vol] 13 U/L Normal <=34 [facility] Comment on above: Performed By: #### L 500.4100, L501.2300, L500.4050, L100.0100 ####[facility] [address] [place], [address] AST [Catalytic activity/Vol] 16 U/L Normal <=31 [facility] Comment on above: Performed By: #### L 500.4100, L501.2300, L500.4050, L100.0100 ####[facility] [address] [place], [address] Bilirubin [Mass/Vol] 0.61 mg/dL Normal 0.00-1.[address] [facility] Comment on above: Performed By: #### L 500.4100, L501.2300, L500.4050, L100.0100 ####[facility] [address] [place], [address] BUN/CRE 30.0 RATIO High 10-20 [facility] Comment on above: Performed By: #### L 500.4100, L501.2300, L500.4050, L100.0100 ####[facility] [address] [place], [address] Calcium [Mass/Vol] 9.9 mg/dL Normal 7.6-11.0 [facility] Comment on above: Performed By: #### L 500.4100, L501.2300, L500.4050, L100.0100 ####[facility] [address] [place], [address] Chloride [Moles/Vol] 105 mmol/L Normal 98-[address] [facility] Comment on above: Performed By: #### L 500.4100, L501.2300, L500.4050, L100.0100 ####[facility] [address] [place], [address] CO2 [Moles/Vol] 25.3 mmol/L Normal 21.0-32.0 [facility] Comment on above: Performed By: #### L 500.4100, L501.2300, L500.4050, L100.0100 ####[facility] [address] [place], [address] Creatinine [Mass/Vol] 0.49 mg/dL Low 0.70-1.20 [facility] Comment on above: Performed By: #### L 500.4100, L501.2300, L500.4050, L100.0100 ####[facility] [address] [place], [address] ECRCL 56.35 ml/min Normal 50-250 [facility] Comment on above: Performed By: #### L 500.4100, L501.2300, L500.4050, L100.0100 ####[facility] [address] [place], [address] GAP 9 Normal 5-15 [facility] Comment on above: Performed By: #### L 500.4100, L501.2300, L500.4050, L100.0100 ####[facility] [address] [place], [address] GFR/1.73 sq M.predicted among non-blacks MDRD (S/P/Bld) [Vol rate/Area] 95 mL/min/{1.73_m2} Normal >60 [facility] Comment on above: Result Comment: mL/m in/1.73m2 CKD-EPI Creatinine Equation (2020) Performed By: #### L 500.4100, L501.2300, L500.4050, L100.0100 ####[facility] [address] [place], [address] Globulin (S) [Mass/Vol] 2.4 g/dL Normal 2.2-4.2 [facility] Comment on above: Performed By: #### L 500.4100, L501.2300, L500.4050, L100.0100 ####[facility] [address] [place], [address] Glucose [Mass/Vol] 111 mg/dL High 70-99 [facility] Comment on above: Performed By: #### L 500.4100, L501.2300, L500.4050, L100.0100 ####[facility] [address] [place], [address] Potassium [Moles/Vol] 4.0 mmol/L Normal 3.3-5.1 [facility] Comment on above: Performed By: #### L 500.4100, L501.2300, L500.4050, L100.0100 ####[facility] [address] [place], [address] Sodium [Moles/Vol] 139 mmol/L Normal 133-145 [facility] Comment on above: Performed By: #### L 500.4100, L501.2300, L500.4050, L100.0100 ####[facility] [address] [place], [address] T PROT 5.5 g/dL Low 5.9-8.4 [facility] Comment on above: Performed By: #### L 500.4100, L501.2300, L500.4050, L100.0100 ####[facility] [address] [place], [address] Urea nitrogen [Mass/Vol] 15 mg/dL Normal 4-19 [facility] Comment on above: Performed By: #### L 500.4100, L501.2300, L500.4050, L100.0100 ####[facility] [address] [place], [address] LDL calc ser/plasOrdered By: Reynaldo Nguyen on 11-27-2024 Cholesterol in LDL [Mass/Vol] 35 mg/dL [facility] Lipid Profileon 11-27-2024 CHOL:HDL 2.37 Normal [facility] Comment on above: Performed By: #### L 500.4100, L501.2300, L500.4050, L100.0100 ####[facility] [address] [place], [address] Cholesterol [Mass/Vol] 90 mg/dL Normal <=200 [facility] Comment on above: Result Comment: Chol esterol level, Desirable <200 mg/dLBorderline high cholesterol 200-239 mg/dLHigh cholesterol >=240 mg/dLRecommendations of the NCEP Adult Treatment Panel for thefollowing risk-cutoff thresholds for the [place] Americanpopulation. Performed By: #### L 500.4100, L501.2300, L500.4050, L100.0100 ####[facility] [address] [place], [address] Cholesterol in HDL [Mass/Vol] 38 mg/dL Low [facility] Comment on above: Result Comment: Taty onal Cholesterol Education Program (NCEP) guidelines:<40 mg/dL: Low HDL-cholesterol (major risk factor for CHD)>= 60 mg/dL: High HDL-cholesterol (negative risk factor forCHD)HDL-cholesterol is affected by a number of factors, e.g.smoking, exercise, hormones, sex and age. Performed By: #### L 500.4100, L501.2300, L500.4050, L100.0100 ####[facility] [address] [place], [address] Cholesterol in LDL [Mass/Vol] 35 mg/dL Normal [facility] Comment on above: Result Comment: Bord rqdeog=714-139 mg/dL Higher Nbbu=418 mg/dL or greaterFriedwald Equation for LDL-C Performed By: #### L 500.4100, L501.2300, L500.4050, L100.0100 ####[facility] [address] [place], [address] Cholesterol in VLDL [Mass/Vol] 17 mg/dL Normal 5-40 [facility] Comment on above: Performed By: #### L 500.4100, L501.2300, L500.4050, L100.0100 ####[facility] [address] [place], [address] Triglyceride [Mass/Vol] 84 mg/dL Normal [facility] Comment on above: Result Comment: The drugs N-Acetylcysteine and Metamizole may falselydepress this assay.Normal range: <150 mg/dLBorderline High: 150-199 mg/dLHigh: 200-499 mg/dLVery High: >500 mg/dL Performed By: #### L 500.4100, L501.2300, L500.4050, L100.0100 ####[facility] [address] [place], [address] No Panel InformationOrdered By: Reynaldo Nguyen on 11-27-2024 16 U/L <32 [facility] Phosphoruson 11-27-2024 Phosphate [Mass/Vol] 3.9 mg/dL Normal 2.7-4.[address] [facility] Comment on above: Performed By: #### L 500.4100, L501.2300, L500.4050, L100.0100 ####[facility] [address] [place], [address] Serum globulin measurementOr dered By: Reynaldo Nguyen on 11-27-2024 Globulin (S) [Mass/Vol] 2.4 g/dL 2.2-4.2 [facility] Serum or plasma alanine rajput otransferase (ALT) measurementOrdered By: Reynaldo Nguyen on 11-27-2024 ALT [Catalytic activity/Vol] 13 U/L <35 [facility] Serum or plasma albumin aaron urement (mass/volume)Ordered By: Reynaldo Nguyen on 11-27-2024 Albumin [Mass/Vol] 3.1 g/dL Low 3.4-4.8 [facility] Serum or plasma albumin/glob ulin mass ratioOrdered By: Reynaldo Nguyen on 11-27-2024 Albumin/Globulin [Mass ratio] 1.3 {ratio} 0.9-2.4 [facility] Serum or plasma alkaline bernardo sphatase measurementOrdered By: Reynaldo Nguyen on 11-27-2024 ALP [Catalytic activity/Vol] 90 U/L 35-104 [facility] Serum or plasma cholesterol in HDL measurement (mass/volume)Ordered By: Reynaldo Nguyen on 11-27-2024 Cholesterol in HDL [Mass/Vol] 38 mg/dL Low >40 [facility] Serum or plasma cholesterol measurement (mass/volume)Ordered By: Reynaldo Nguyen on 11-27-2024 Cholesterol [Mass/Vol] 90 mg/dL <201 [facility] Serum or plasma creatine kin ase activityOrdered By: Paul Lauren on 11-27-2024 CK [Catalytic activity/Vol] 27 U/L 24-195 [facility] T4 Free Directon 11-27-2024 T4 FREE DIRECT 2.10 ng/dL High 0.76-1.46 [facility] Comment on above: Performed By: #### L 506.0400 ####[facility] [address] [place], [place], [id number] T4 freeOrdered By: Paul chavira on 11-27-2024 Free T4 [Mass/Vol] 2.10 ng/dL High 0.76-1.46 [facility] Total proteinOrdered By: Remi Nguyen on 11-27-2024 Protein [Mass/Vol] 5.5 g/dL Low 5.9-8.4 [facility] 12 Lead EKGon 11-26-2024 12 Lead EKG Normal [facility] Activated partial thrombopla stin time (aPTT) in platelet poor plasma by coagulation aOrdered By: Stephanie Kincaid on 11-26-2024 aPTT Coag (PPP) [Time] 29.2 s 24.1-36.2 [facility] Alcohol, Blood (Medical)-Ser umon 11-26-2024 SERUM ETOH < 10.1 Normal <=10.0 [facility] Comment on above: Result Comment: This test is for medical purposes only. The legaldefinition of intoxication varies according to local law. Performed By: #### L 501.9985, L506.0200, L501.9100, L501.9520, L501.5200, L505.5000 ####[facility] [address] [place], [place], [id number] Amorphous sediment detection in urine sediment by light microscopyOrdered By: Stephanie Kincaid on 11-26-2024 Amorphous sediment LM Ql (Urine sed) 1+ [facility] Amphetamine detection with 1 000 ng/mL as cutoffOrdered By: Reynaldo Nguyen on 11-26-2024 Amphetamines Screen method >1000 ng/mL Ql (U) Negative < 200 ng/mL [facility] Basic Metabolic Profile (BMP )on 11-26-2024 BUN/CRE 30.3 RATIO High 10-20 [facility] Comment on above: Performed By: #### L 300.4310, L300.3900, L100.0100, L503.7505, L500.2500 ####[facility] [address] [place], [address] Calcium [Mass/Vol] 10.1 mg/dL Normal 7.6-11.0 [facility] Comment on above: Performed By: #### L 300.4310, L300.3900, L100.0100, L503.7505, L500.2500 ####[facility] [address] [place], [address] Chloride [Moles/Vol] 103 mmol/L Normal 98-[address] [facility] Comment on above: Performed By: #### L 300.4310, L300.3900, L100.0100, L503.7505, L500.2500 ####[facility] [address] [place], [address] CO2 [Moles/Vol] 25.9 mmol/L Normal 21.0-32.0 [facility] Comment on above: Performed By: #### L 300.4310, L300.3900, L100.0100, L503.7505, L500.2500 ####[facility] [address] [place], [address] Creatinine [Mass/Vol] 0.53 mg/dL Low 0.70-1.20 [facility] Comment on above: Performed By: #### L 300.4310, L300.3900, L100.0100, L503.7505, L500.2500 ####[facility] [address] [place], [address] ECRCL 57.00 ml/min Normal 50-250 [facility] Comment on above: Performed By: #### L 300.4310, L300.3900, L100.0100, L503.7505, L500.2500 ####[facility] [address] [place], [address] GAP 9 Normal 5-15 [facility] Comment on above: Performed By: #### L 300.4310, L300.3900, L100.0100, L503.7505, L500.2500 ####[facility] [address] [place], [address] GFR/1.73 sq M.predicted among non-blacks MDRD (S/P/Bld) [Vol rate/Area] 93 mL/min/{1.73_m2} Normal >60 [facility] Comment on above: Result Comment: mL/m in/1.73m2 CKD-EPI Creatinine Equation (2020) Performed By: #### L 300.4310, L300.3900, L100.0100, L503.7505, L500.2500 ####[facility] [address] [place], [address] Glucose [Mass/Vol] 122 mg/dL High 70-99 [facility] Comment on above: Performed By: #### L 300.4310, L300.3900, L100.0100, L503.7505, L500.2500 ####[facility] [address] [place], [address] Potassium [Moles/Vol] 4.8 mmol/L Normal 3.3-5.1 [facility] Comment on above: Performed By: #### L 300.4310, L300.3900, L100.0100, L503.7505, L500.2500 ####[facility] [address] [place], [address] Sodium [Moles/Vol] 138 mmol/L Normal 133-145 [facility] Comment on above: Performed By: #### L 300.4310, L300.3900, L100.0100, L503.7505, L500.2500 ####[facility] [address] [place], [address] Urea nitrogen [Mass/Vol] 16 mg/dL Normal 4-19 [facility] Comment on above: Performed By: #### L 300.4310, L300.3900, L100.0100, L503.7505, L500.2500 ####[facility] [address] [place], [address] Bilirubin Test strip Ql (U)O rdered By: Stephanie Kincaid on 11-26-2024 Bilirubin Ql (U) Negative Negative [facility] Brain/Head without Contrasto n 11-26-2024 Brain/Head without Contrast Normal [facility] CBC W/Diff, Automatedon 11-01 Absolute Lymph 0.75 X10 3/uL Low 0.83-4.51 [facility] Comment on above: Performed By: #### L 300.4310, L300.3900, L100.0100, L503.7505, L500.2500 ####[facility] [address] [place], [address] Absolute Neut 6.2 X10 3/uL Normal 2.0-7.7 [facility] Comment on above: Performed By: #### L 300.4310, L300.3900, L100.0100, L503.7505, L500.2500 ####[facility] [address] [place], [address] Basophils/100 WBC (Bld) 0.3 % Normal 0-1 [facility] Comment on above: Performed By: #### L 300.4310, L300.3900, L100.0100, L503.7505, L500.2500 ####[facility] [address] [place], [address] Eosinophils/100 WBC (Bld) 0.8 % Normal 0-5 [facility] Comment on above: Performed By: #### L 300.4310, L300.3900, L100.0100, L503.7505, L500.2500 ####[facility] [address] [place], [address] Erythrocyte distribution width (RBC) [Ratio] 13.2 % Normal 11.6-14.6 [facility] Comment on above: Performed By: #### L 300.4310, L300.3900, L100.0100, L503.7505, L500.2500 ####[facility] [address] [place], [address] Hematocrit (Bld) [Volume fraction] 41.7 % Normal 37-47 [facility] Comment on above: Performed By: #### L 300.4310, L300.3900, L100.0100, L503.7505, L500.2500 ####[facility] [address] [place], [address] Hemoglobin (Bld) [Mass/Vol] 13.7 g/dL Normal 12.0-15.0 [facility] Comment on above: Performed By: #### L 300.4310, L300.3900, L100.0100, L503.7505, L500.2500 ####[facility] [address] [place], [address] IG% 0.300 Normal 0.0-0.9 [facility] Comment on above: Result Comment: IG% - Immature Granulocytes (promyelocytes, myelocytes andmetamyelocytes) > 1% indicates that a LEFT SHIFT is Present. Performed By: #### L 300.4310, L300.3900, L100.0100, L503.7505, L500.2500 ####[facility] [address] [place], [address] Lymphocytes/100 WBC (Bld) 9.7 % Low 19-41 [facility] Comment on above: Performed By: #### L 300.4310, L300.3900, L100.0100, L503.7505, L500.2500 ####[facility] [address] [place], [address] MCH (RBC) [Entitic mass] 29.6 pg Normal 27.0-32.0 [facility] Comment on above: Performed By: #### L 300.4310, L300.3900, L100.0100, L503.7505, L500.2500 ####[facility] [address] [place], [address] MCHC (RBC) [Mass/Vol] 32.9 g/dL Normal 32-36 [facility] Comment on above: Performed By: #### L 300.4310, L300.3900, L100.0100, L503.7505, L500.2500 ####[facility] [address] [place], [address] MCV (RBC) [Entitic vol] 90.1 fL Normal 81-99 [facility] Comment on above: Performed By: #### L 300.4310, L300.3900, L100.0100, L503.7505, L500.2500 ####[facility] [address] [place], [address] Monocytes/100 WBC (Bld) 9.2 % Normal 0-10 [facility] Comment on above: Performed By: #### L 300.4310, L300.3900, L100.0100, L503.7505, L500.2500 ####[facility] [address] [place], [address] Neutrophils/100 WBC (Bld) 79.7 % High 47-70 [facility] Comment on above: Performed By: #### L 300.4310, L300.3900, L100.0100, L503.7505, L500.2500 ####[facility] [address] [place], [address] Nucleated RBC (Bld) [#/Vol] 0 10*3/uL Normal 0-5 [facility] Comment on above: Performed By: #### L 300.4310, L300.3900, L100.0100, L503.7505, L500.2500 ####[facility] [address] [place], [address] Platelet mean volume (Bld) [Entitic vol] 9.3 fL Normal 6.2-12.0 [facility] Comment on above: Performed By: #### L 300.4310, L300.3900, L100.0100, L503.7505, L500.2500 ####[facility] [address] [place], [address] Platelets (Bld) [#/Vol] 227 10*3/uL Normal 150-450 [facility] Comment on above: Performed By: #### L 300.4310, L300.3900, L100.0100, L503.7505, L500.2500 ####[facility] [address] [place], [address] RBC (Bld) [#/Vol] 4.63 10*6/uL Normal 4.2-5.4 [facility] Comment on above: Performed By: #### L 300.4310, L300.3900, L100.0100, L503.7505, L500.2500 ####[facility] [address] [place], [address] RDW SD 43.5 fl Normal 35.1-43.9 [facility] Comment on above: Performed By: #### L 300.4310, L300.3900, L100.0100, L503.7505, L500.2500 ####[facility] [address] [place], [address] WBC (Bld) [#/Vol] 7.7 10*3/uL Normal 4.4-11.0 [facility] Comment on above: Performed By: #### L 300.4310, L300.3900, L100.0100, L503.7505, L500.2500 ####[facility] [address] [place], [address] Chest PA and Lateralon 11-26 Chest PA and Lateral Normal [facility] Emergency Department Summary on 11-26-2024 Emergency Department Summary Normal [facility] Folate [Mass/volume] in Seru m or PlasmaOrdered By: Reynaldo Nguyen on 11-26-2024 Folate [Mass/Vol] 25.60 ng/mL 4.60-34.80 [facility] Folates,Serum (Folic Acid)on 11-26-2024 FOLATES,SERUM 25.60 ng/mL Normal 4.60-34.80 [facility] Comment on above: Result Comment: Hemo lysis, Results will be affected, Requires Recollection. Performed By: #### L 501.9985, L506.0200, L501.9100, L501.9520, L501.5200, L505.5000 ####[facility] [address] [place], [address] H AND P Exam - Hospitaliston 11-26-2024 H&P Exam - Hospitalist Normal [facility] Hemoglobin A1con 11-26-2024 HbA1c (Bld) [Mass fraction] 5.6 % Normal <=5.6 [facility] Comment on above: Result Comment: Norm al < 5.7 % Prediabetic 5.7 - 6.4 % Diabetic >or= 6.5 % Please note range changes. Performed By: #### L 501.9985, L506.0200, L501.9100, L501.9520, L501.5200, L505.5000 ####[facility] [address] [place], [address] Hemoglobin A1c percentageOrd ered By: Reynaldo Nguyen on 11-26-2024 HbA1c (Bld) [Mass fraction] 5.6 % <5.7 [facility] Influenza virus A and B and SARS-CoV-2 (COVID-19) and Respiratory syncytial virus RNAOrdered By: Stephanie Kincaid on 11-26-2024 SARS-CoV-2 (COVID-19) RNA LIBRADO+probe Ql (Unsp spec) [facility] Ketones Test strip Ql (U)Ord ered By: Stephanie Kincaid on 11-26-2024 Ketones Ql (U) Negative Negative [facility] L501.4021on 11-26-2024 Trop T High Sen 28 ng/L High <=14 [facility] Comment on above: Performed By: #### L 501.4021 ####[facility] [address] [place], [address] M100.678on 11-26-2024 M100.678 Pending SARS-CoV-2 (COVID 19) Negative INFLUENZA A Negative INFLUENZA B Negative RSV PCR Negative Normal [facility] Comment on above: Performed By: #### M 100.678 ####[facility] [address] [place], [address] Magnesiumon 11-26-2024 Magnesium [Mass/Vol] 2.1 mg/dL Normal 1.5-2.[address] [facility] Comment on above: Performed By: #### L 501.9985, L506.0200, L501.9100, L501.9520, L501.5200, L505.5000 ####[facility] [address] [place], [address] Magnesium measurement (mass/ volume)Ordered By: Reynaldo Nguyen on 11-26-2024 Magnesium (Unsp spec) [Mass/Vol] 2.1 mg/dL 1.5-2.2 [facility] Mucus LM Ql (Urine sed)Order ed By: Stephanie Kincaid on 11-26-2024 Mucus Ql (Urine sed) 0 SEEN /hpf [facility] Nitrite Test strip Ql (U)Ord ered By: Stephanie Kincaid on 11-26-2024 Nitrite Ql (U) Negative Negative [facility] No Panel InformationOrdered By: Reynaldo Nguyen on 11-26-2024 Negative < 200 ng/mL [facility] Partial Thromboplast Timeon 11-26-2024 aPTT Coag (Bld) [Time] 29.2 s Normal 24.1-36.2 [facility] Comment on above: Performed By: #### L 300.4310, L300.3900, L100.0100, L503.7505, L500.2500 ####[facility] [address] [place], [address] Pro- Brain NATRIURETIC PEPTI Jun 11-26-2024 Natriuretic peptide B (Bld) [Mass/Vol] 517 pg/mL Normal <=1800 [facility] Comment on above: Result Comment: Hear t Failure Unlikely: < 300 pg/mLHeart Failure Likely< 50 Years: > 450 pg/mL50-75 Years: > 900 pg/mL>75 Years: > 1800 pg/mL Performed By: #### L 300.4310, L300.3900, L100.0100, L503.7505, L500.2500 ####[facility] [address] [place], [place], [id number] Protein Test strip Ql (U)Ord ered By: Stephanie Kincaid on 11-26-2024 Protein Ql (U) 15 mg/dl High Negative [facility] Prothrombin Time w/INRon INR Coag (PPP) [Relative time] 1.2 {INR} Normal [facility] Comment on above: Performed By: #### L 300.4310, L300.3900, L100.0100, L503.7505, L500.2500 ####[facility] [address] [place], [address] PT Coag (PPP) [Time] 15.8 s High 11.7-14.[address] [facility] Comment on above: Performed By: #### L 300.4310, L300.3900, L100.0100, L503.7505, L500.2500 ####[facility] [address] [place], [address] Prothrombin timeOrdered By: Stephanie Kincaid on 11-26-2024 PT Coag (PPP) [Time] 15.8 s High 11.7-14.[address] [facility] Screening urine fentanyl timothy surementOrdered By: Reynaldo Nguyen on 11-26-2024 fentaNYL Screen Ql (U) Negative <5 ng/mL [facility] Serum or plasma ethanol aaron urement (mass/volume)Ordered By: Reynaldo Nguyen on 11-26-2024 Ethanol [Mass/Vol] mg/dL <10.1 [facility] Spine Cervical without Contr ason 11-26-2024 Spine Cervical without Contras Normal [facility] Squamous epithelial cells de tection in urine sediment by light microscopyOrdered By: Stephanie Kincaid on 11-26-2024 Epithelial cells.squamous LM Ql (Urine sed) 10-25 SEEN /hpf 5-10 [facility] TSH DL <= 0.005 mIU/L QnOrde red By: Reynaldo Nguyen on 11-26-2024 TSH Qn < 0.005 uIU/mL Low 0.300-4.200 [facility] Thyroid Stim Hormone (TSH)on 11-26-2024 TSH Qn m[IU]/L Low 0.300-4.200 [facility] Comment on above: Performed By: #### L 501.9985, L506.0200, L501.9100, L501.9520, L501.5200, L505.5000 ####[facility] [address] [place], [address] Troponin T HS 2 HRon 025 Trop T High Sen 27 ng/L High <=14 [facility] Comment on above: Performed By: #### L 499.0042 ####[facility] [address] [place], [address] Troponin T HS 4 HRon 025 Trop T High Sen 29 ng/L High <=14 [facility] Comment on above: Performed By: #### L 499.0043 ####[facility] [address] [place], [address] Troponin T.cardiac [Mass/vol ume] in Serum or Plasma by High sensitivity methodOrdered By: Stephanie Kincaid on 11-26-2024 Troponin T.cardiac High sensitivity method [Mass/Vol] 29 ng/L High <14 [facility] Troponin T.cardiac High sensitivity method [Mass/Vol] 27 ng/L High <14 [facility] Troponin T.cardiac High sensitivity method [Mass/Vol] 28 ng/L High <14 [facility] Urinalysis, Completeon 11-26 AMORPHOUS 1+ Normal [facility] Comment on above: Order Comment: CLEAN CATCH Performed By: #### L 400.0001 ####[facility] [address] [place], [address] BACTERIA 2+ /hpf Normal None Seen [facility] Comment on above: Order Comment: CLEAN CATCH Performed By: #### L 400.0001 ####[facility] [address] [place], [address] EPI,SQUAMOUS 10-25 SEEN Normal 5-10 [facility] Comment on above: Order Comment: CLEAN CATCH Performed By: #### L 400.0001 ####[facility] [address] [place], [address] RBC 0-5 SEEN Normal 0-5 [facility] Comment on above: Order Comment: CLEAN CATCH Performed By: #### L 400.0001 ####[facility] [address] [place], [address] WBC 0-5 SEEN Normal 0-5 [facility] Comment on above: Order Comment: CLEAN CATCH Performed By: #### L 400.0001 ####[facility] [address] [place], [address] Mucus Ql (Urine sed) 0 SEEN Normal [facility] Comment on above: Order Comment: CLEAN CATCH Performed By: #### L 400.0001 ####[facility] [address] [place], [address] Urine Drug Screen (VISTA)on 11-26-2024 AMPHETAMINES Negative Normal <1000 ng/mL [facility] Comment on above: Performed By: #### L 501.9985, L506.0200, L501.9100, L501.9520, L501.5200, L505.5000 ####[facility] [address] [place], [address] BARBITIURATES Negative Normal < 200 ng/mL [facility] Comment on above: Performed By: #### L 501.9985, L506.0200, L501.9100, L501.9520, L501.5200, L505.5000 ####[facility] [address] [place], [place], [phone] BENZODIAZIPINE Negative Normal < 200 ng/mL [facility] Comment on above: Performed By: #### L 501.9985, L506.0200, L501.9100, L501.9520, L501.5200, L505.5000 ####[facility] [address] [place] [address] BUP Ur Drug Scr Negative Normal < 200 ng/mL [facility] Comment on above: Performed By: #### L 501.9985, L506.0200, L501.9100, L501.9520, L501.5200, L505.5000 ####[facility] [address] [place], [place], [phone] COCAINE Negative Normal < 300 ng/mL [facility] Comment on above: Performed By: #### L 501.9985, L506.0200, L501.9100, L501.9520, L501.5200, L505.5000 ####[facility] [address] [place] [address] Fentanyl Negative Normal <5 ng/mL [facility] Comment on above: Result Comment: CONF [...] L 501.9985, L506.0200, L501.9100, L501.9520, L501.5200, L505.5000 ####[facility] [address] [place], [place], [phone] METHADONE Negative Normal < 300 ng/mL [facility] Comment on above: Performed By: #### L 501.9985, L506.0200, L501.9100, L501.9520, L501.5200, L505.5000 ####[facility] [address] [place], [address] OPIATES Negative Normal < 300 ng/mL [facility] Comment on above: Performed By: #### L 501.9985, L506.0200, L501.9100, L501.9520, L501.5200, L505.5000 ####[facility] [address] [place], [address] OXYCODONE Negative Normal < 100 ng/mL [facility] Comment on above: Performed By: #### L 501.9985, L506.0200, L501.9100, L501.9520, L501.5200, L505.5000 ####[facility] [address] [place], [place], [phone]) PCP Negative Normal < 25 ng/mL [facility] Comment on above: Performed By: #### L 501.9985, L506.0200, L501.9100, L501.9520, L501.5200, L505.5000 ####[facility] [address] [place], [address] THC Negative Normal < 50 ng/mL [facility] Comment on above: Performed By: #### L 501.9985, L506.0200, L501.9100, L501.9520, L501.5200, L505.5000 ####[facility] [address] [place], [address] Urine clarityOrdered By: Sally Kincaid on 11-26-2024 Clarity (U) Sl. Cloudy Clear [facility] Urine color determinationOrd ered By: Stephanie Kincaid on 11-26-2024 Color (U) Yellow Yellow [facility] Urine glucose detectionOrder ed By: Stephanie Kincaid on 11-26-2024 Glucose Ql (U) Normal mg/dl Normal [facility] Urine leukocyte esterase det ection by dipstickOrdered By: Stephanie Kincaid on 11-26-2024 Leukocyte esterase Test strip Ql (U) Negative Negative [facility] Urine pHOrdered By: Stephanie white on 11-26-2024 pH (U) 6.5 [pH] 5.0 - 8.0 [facility] Urine phencyclidine (PCP) de tectionOrdered By: Reynaldo Nguyen on 11-26-2024 Phencyclidine Ql (U) Negative < 25 ng/mL [facility] Urine sediment bacteria coun t by microscopy (number/high power field)Ordered By: Stephanie Kincaid on 11-26-2024 Bacteria LM.HPF (Urine sed) [#/Area] 2 /[HPF] None Seen [facility] Urine specific gravity measu rementOrdered By: Stephanie Kincaid on 11-26-2024 Specific gravity (U) [Rel density] 1.015 1.002-1.030 [facility] Urine urobilinogen measureme ntOrdered By: Stephanie Kincaid on 11-26-2024 Urobilinogen Ql (U) Normal mg/dl Normal [facility] Vitamin B12on 11-26-2024 Cobalamin (Vitamin B12) [Mass/Vol] 439 pg/mL Normal 180-914 [facility] Comment on above: Performed By: #### L 503.0106 ####[facility] [address] [place], [place], [address] Vitamin B12 ser/plasOrdered By: Reynaldo Nguyen on 11-26-2024 Cobalamin (Vitamin B12) [Mass/Vol] 439 pg/mL 180-914 [facility] White blood cell countOrdere d By: Stephanie Kincaid on 11-26-2024 White blood cell count 0-5 SEEN /hpf 0-5 [facility] Urine Cultureon 10-28-2024 URC Normal [facility] Comment on above: Performed By: #### M 100.2200, L400.0001 ####[facility] [address] [place], [place], [id number] Absolute lymphocyte countOrd ered By: Aranza Little on 10-26-2024 Lymphocytes Auto (Unsp spec) [#/Vol] 0.88 10*3/uL 0.83-4.51 [facility] Absolute neutrophil countOrd ered By: Aranza Little on 10-26-2024 Neutrophils (Bld) [#/Vol] 4.7 10*3/uL 2.0-7.7 [facility] Anion gap in Serum or Plasma Ordered By: Aranza Little on 10-26-2024 Anion gap [Moles/Vol] 7 mmol/L 5-15 [facility] Automated lymphocyte count a s percentage of total leukocytesOrdered By: Aranza Little on 10-26-2024 Lymphocytes/100 WBC Auto (Unsp spec) 13.8 % Low 19-41 [facility] BUN/creatinine ratioOrdered By: Aranza Little on 10-26-2024 Urea nitrogen/Creatinine [Mass ratio] 31.8 mg/mg High 10- [facility] Basic Metabolic Profile (BMP )on 10-26-2024 BUN/CRE 31.8 RATIO High 10 [facility] Comment on above: Performed By: #### L 500.2500, L500.4100, L100.0100 ####[facility] [address] [place], [address] Calcium [Mass/Vol] 9.6 mg/dL Normal 7.6-11.0 [facility] Comment on above: Performed By: #### L 500.2500, L500.4100, L100.0100 ####[facility] [address] [place], [address] Chloride [Moles/Vol] 105 mmol/L Normal 98-[address] [facility] Comment on above: Performed By: #### L 500.2500, L500.4100, L100.0100 ####[facility] [address] [place], [address] CO2 [Moles/Vol] 27.0 mmol/L Normal 21.0-32.0 [facility] Comment on above: Performed By: #### L 500.2500, L500.4100, L100.0100 ####[facility] [address] [place], [address] Creatinine [Mass/Vol] 0.49 mg/dL Low 0.70-1.20 [facility] Comment on above: Performed By: #### L 500.2500, L500.4100, L100.0100 ####[facility] [address] [place], [address] ECRCL 53.57 ml/min Normal 50-250 [facility] Comment on above: Performed By: #### L 500.2500, L500.4100, L100.0100 ####[facility] [address] [place], [address] GAP 7 Normal 5-15 [facility] Comment on above: Performed By: #### L 500.2500, L500.4100, L100.0100 ####[facility] [address] [place], [address] GFR/1.73 sq M.predicted among non-blacks MDRD (S/P/Bld) [Vol rate/Area] 95 mL/min/{1.73_m2} Normal >60 [facility] Comment on above: Result Comment: mL/m in/1.73m2 CKD-EPI Creatinine Equation (2020) Performed By: #### L 500.2500, L500.4100, L100.0100 ####[facility] [address] [place], [address] Glucose [Mass/Vol] 111 mg/dL High 70-99 [facility] Comment on above: Performed By: #### L 500.2500, L500.4100, L100.0100 ####[facility] [address] [place], [address] Potassium [Moles/Vol] 4.3 mmol/L Normal 3.3-5.1 [facility] Comment on above: Performed By: #### L 500.2500, L500.4100, L100.0100 ####[facility] [address] [place], [address] Sodium [Moles/Vol] 139 mmol/L Normal 133-145 [facility] Comment on above: Performed By: #### L 500.2500, L500.4100, L100.0100 ####[facility] [address] [place], [address] Urea nitrogen [Mass/Vol] 16 mg/dL Normal 4-19 [facility] Comment on above: Performed By: #### L 500.2500, L500.4100, L100.0100 ####[facility] [address] [place], [address] Basophil percentageOrdered B y: Aranza Little on 10-26-2024 Basophils/100 WBC (Bld) 0.2 % 0-1 [facility] CBC W/Diff, Automatedon 08-2 Absolute Lymph 0.88 X10 3/uL Normal 0.83-4.51 [facility] Comment on above: Performed By: #### L 500.2500, L500.4100, L100.0100 ####[facility] [address] [place], [address] Absolute Neut 4.7 X10 3/uL Normal 2.0-7.7 [facility] Comment on above: Performed By: #### L 500.2500, L500.4100, L100.0100 ####[facility] [address] [place], [address] Basophils/100 WBC (Bld) 0.2 % Normal 0-1 [facility] Comment on above: Performed By: #### L 500.2500, L500.4100, L100.0100 ####[facility] [address] [place], [address] Eosinophils/100 WBC (Bld) 1.6 % Normal 0-5 [facility] Comment on above: Performed By: #### L 500.2500, L500.4100, L100.0100 ####[facility] [address] [place], [address] Erythrocyte distribution width (RBC) [Ratio] 12.9 % Normal 11.6-14.6 [facility] Comment on above: Performed By: #### L 500.2500, L500.4100, L100.0100 ####[facility] [address] [place], [address] Hematocrit (Bld) [Volume fraction] 39.5 % Normal 37-47 [facility] Comment on above: Performed By: #### L 500.2500, L500.4100, L100.0100 ####[facility] [address] [place], [address] Hemoglobin (Bld) [Mass/Vol] 13.1 g/dL Normal 12.0-15.0 [facility] Comment on above: Performed By: #### L 500.2500, L500.4100, L100.0100 ####[facility] [address] [place], [address] IG% 0.200 Normal 0.0-0.9 [facility] Comment on above: Result Comment: IG% - Immature Granulocytes (promyelocytes, myelocytes andmetamyelocytes) > 1% indicates that a LEFT SHIFT is Present. Performed By: #### L 500.2500, L500.4100, L100.0100 ####[facility] [address] [place], [address] Lymphocytes/100 WBC (Bld) 13.8 % Low 19-41 [facility] Comment on above: Performed By: #### L 500.2500, L500.4100, L100.0100 ####[facility] [address] [place], [address] MCH (RBC) [Entitic mass] 30.4 pg Normal 27.0-32.0 [facility] Comment on above: Performed By: #### L 500.2500, L500.4100, L100.0100 ####[facility] [address] [place], [address] MCHC (RBC) [Mass/Vol] 33.2 g/dL Normal 32-36 [facility] Comment on above: Performed By: #### L 500.2500, L500.4100, L100.0100 ####[facility] [address] [place], [address] MCV (RBC) [Entitic vol] 91.6 fL Normal 81-99 [facility] Comment on above: Performed By: #### L 500.2500, L500.4100, L100.0100 ####[facility] [address] [place], [address] Monocytes/100 WBC (Bld) 10.3 % High 0-10 [facility] Comment on above: Performed By: #### L 500.2500, L500.4100, L100.0100 ####[facility] [address] [place], [address] Neutrophils/100 WBC (Bld) 73.9 % High 47-70 [facility] Comment on above: Performed By: #### L 500.2500, L500.4100, L100.0100 ####[facility] [address] [place], [address] Nucleated RBC (Bld) [#/Vol] 0 10*3/uL Normal 0-5 [facility] Comment on above: Performed By: #### L 500.2500, L500.4100, L100.0100 ####[facility] [address] [place], [address] Platelet mean volume (Bld) [Entitic vol] 9.4 fL Normal 6.2-12.0 [facility] Comment on above: Performed By: #### L 500.2500, L500.4100, L100.0100 ####[facility] [address] [place], [address] Platelets (Bld) [#/Vol] 170 10*3/uL Normal 150-450 [facility] Comment on above: Performed By: #### L 500.2500, L500.4100, L100.0100 ####[facility] [address] [place], [address] RBC (Bld) [#/Vol] 4.31 10*6/uL Normal 4.2-5.4 [facility] Comment on above: Performed By: #### L 500.2500, L500.4100, L100.0100 ####[facility] [address] [place], [address] RDW SD 43.0 fl Normal 35.1-43.9 [facility] Comment on above: Performed By: #### L 500.2500, L500.4100, L100.0100 ####[facility] [address] [place], [address] WBC (Bld) [#/Vol] 6.4 10*3/uL Normal 4.4-11.0 [facility] Comment on above: Performed By: #### L 500.2500, L500.4100, L100.0100 ####[facility] [address] [place], [address] Calculated very low density lipoprotein (VLDL) cholesterol measurementOrdered By: Aranza Little on 10-26-2024 Calculated very low density lipoprotein (VLDL) cholesterol measurement 15 mg/dL 5-40 [facility] Carbon dioxide, total [Moles /volume] in Central venous bloodOrdered By: Aranza Little on 10-26-2024 CO2 [Moles/Vol] 27.0 mmol/L 21.0-32.0 [facility] Cardiovascular stress test r eportOrdered By: Franko Franco on 10-26-2024 Study report [facility] [address] [place] [address] MR#: [id number] Acct: [id number] Name: AYAN CARRILLO Rep #: [id number] : 1945 79 From: Franko Franco MD [...] per usual protocol peak infusion[43.7 mCi ]of Gykvvzpbpi03u sestamibi was injected. Stress images were obtained [...] and normal LV systolic function. Franko Franco MD,[facility] power equipment technology instructor 10/26/24 1317 Date _ Franko Franco MD CC: Dr. Brayan Thompson MD; Dr. Seth Flores MD; Dr. Aranza Little MD; Dr. Jaylen Jack DO ~ Date Dictated: 10/26/24 1309 Date Transcribed: 10/26/24 130 Business Liaison Officer: FB Signed [facility] Work Phone: Chloride assayOrdered By: Pedrito Little on 10-26-2024 Chloride [Moles/Vol] 105 mmol/L 98-[address] [facility] Discharge Instructionon 10-01 Discharge Instruction Normal [facility] Echocardiogram study reportO rdered By: Franko Franco on 10-26-2024 Study report [facility] [address] [place] [address] Echo Complete 10/26/24823 MR#: [id number] Acct: [id number] Name: AYAN CARRILLO Rep #:[id number] : 1945 79 From: Franko Franco MD Attending Dr: Dr. Seth Flores MD Status: ADM HERSON Ordering Dr: Aranza Little MD Date: Location: [facility] Sex: F C Admitted: 10/25/24 Reason For [...] ~ Date Dictated: 10/26/24823 Date Transcribed: 10/26/241445 Business Liaison Officer: Signed [facility] Work Phone: Electrocardiogram reportOrde red By: Franko Franco on 10-26-2024 EKG study [facility] [address] [place] [address] 12 Lead EKG 10/25/24 1214 MR#: [id number] Acct: [id number] Name: AYAN CARRILLO Rep #:[id number] : 1945 79 From: Franko Franco MD Attending Dr: Dr. Seth Flores MD Status: ADM HERSON Ordering Dr: Aranza Little MD Date: Location: [facility] Sex: F C Admitted: 10/25/24 Test Reason [...] undetermined Abnormal ECG Confirmed by FRANKO FRANCO ([id number]), school photograph editor KIRSTIN ARAIZA ([id number]) on 10/26/2024 1:54:17 PM Referred By: KEYONA/JORGE Confirmed By: FRANKO FRANCO 10/26/24 2475 Date _ Franko Franco MD CC: Dr. Brayan Thompson MD; Dr. Seth Flores MD; Dr. Aranza Little MD ~ Signed [facility] Work Phone: [phone] Eosinophil percentageOrdered By: Aranza Little on 10-26-2024 Eosinophils/100 WBC (Bld) 1.6 % 0-5 [facility] Erythrocyte distribution wid th ratioOrdered By: Aranza Little on 10-26-2024 Erythrocyte distribution width (RBC) [Ratio] 12.9 % 11.6-14.6 [facility] Erythrocyte distribution wid th standard deviationOrdered By: Aranza Little on 10-26-2024 Erythrocyte distribution width (RBC) [Ratio] 43.0 fl 35.1-43.9 [facility] Glomerular filtration rate ( GFR) estimation/1.73 sq m using serum, plasma, or whole bOrdered By: Aranza Little on 10-26-2024 GFR/1.73 sq M.predicted among non-blacks MDRD (S/P/Bld) [Vol rate/Area] 95 mL/min/{1.73_m2} >60 [facility] Comment on above: mL/min/1.73m2 CKD-EP I Creatinine Equation (2020) Hematocrit Auto (Bld) [Volum e fraction]Ordered By: Aranza Little on 10-26-2024 Hematocrit (Bld) [Volume fraction] 39.5 % 37-47 [facility] Hemoglobin measurementOrdere d By: Aranza Little on 10-26-2024 Hemoglobin (Bld) [Mass/Vol] 13.1 g/dL 12.0-15.0 [facility] Immature granulocytes/100 WB C Auto (Bld)Ordered By: Aranza Little on 10-26-2024 Immature granulocytes/100 WBC (Bld) 0.200 % 0.0-0.9 [facility] Comment on above: IG% - Immature Granu locytes (promyelocytes, myelocytes and metamyelocytes) > 1% indicates that a LEFT SHIFT is Present. LDL calc ser/plasOrdered By: Aranza Little on 10-26-2024 Cholesterol in LDL [Mass/Vol] 38 mg/dL [facility] Comment on above: Jgjquhapzh=053-099 m g/dL & Higher Gvpv=423 mg/dL or greaterFriedwald Equation for LDL-C Lipid Profileon 10-26-2024 CHOL:HDL 2.49 Normal [facility] Comment on above: Performed By: #### L 500.2500, L500.4100, L100.0100 ####[facility] [address] [place], [address] Cholesterol [Mass/Vol] 89 mg/dL Normal <=200 [facility] Comment on above: Result Comment: Chol esterol level, Desirable <200 mg/dLBorderline high cholesterol 200-239 mg/dLHigh cholesterol >=240 mg/dLRecommendations of the NCEP Adult Treatment Panel for thefollowing risk-cutoff thresholds for the [place] Americanpulation. Performed By: #### L 500.2500, L500.4100, L100.0100 ####[facility] [address] [place], [address] Cholesterol in HDL [Mass/Vol] 36 mg/dL Low [facility] Comment on above: Result Comment: Taty onal Cholesterol Education Program (NCEP) guidelines:<40 mg/dL: Low HDL-cholesterol (major risk factor for CHD)>= 60 mg/dL: High HDL-cholesterol (negative risk factor forCHD)HDL-cholesterol is affected by a number of factors, e.g.smoking, exercise, hormones, sex and age. Performed By: #### L 500.2500, L500.4100, L100.0100 ####[facility] [address] [place], [address] Cholesterol in LDL [Mass/Vol] 38 mg/dL Normal [facility] Comment on above: Result Comment: Bord ymcyod=022-263 mg/dL Higher Miov=137 mg/dL or greaterFriedwald Equation for LDL-C Performed By: #### L 500.2500, L500.4100, L100.0100 ####[facility] [address] [place], [address] Cholesterol in VLDL [Mass/Vol] 15 mg/dL Normal 5-40 [facility] Comment on above: Performed By: #### L 500.2500, L500.4100, L100.0100 ####[facility] [address] [place], [address] Triglyceride [Mass/Vol] 76 mg/dL Normal [facility] Comment on above: Result Comment: The drugs N-Acetylcysteine and Metamizole may falselydepress this assay.Normal range: <150 mg/dLBorderline High: 150-199 mg/dLHigh: 200-499 mg/dLVery High: >500 mg/dL Performed By: #### L 500.2500, L500.4100, L100.0100 ####[facility] [address] [place], [address] MCV (mean corpuscular volume ) determinationOrdered By: Aranza Little on 10-26-2024 MCV (RBC) [Entitic vol] 91.6 fL 81-99 [facility] Mean corpuscular hemoglobin (MCH) determinationOrdered By: Aranza Little on 10-26-2024 MCH (RBC) [Entitic mass] 30.4 pg 27.0-32.0 [facility] Mean corpuscular hemoglobin concentration (MCHC) determinationOrdered By: Aranza Little on 10-26-2024 MCHC (RBC) [Mass/Vol] 33.2 g/dL 32-36 [facility] Mean platelet volume determi nationOrdered By: Aranza Little on 10-26-2024 Platelet mean volume (Bld) [Entitic vol] 9.4 fL 6.2-12.0 [facility] Monocyte percentageOrdered B y: Aranza Little on 10-26-2024 Monocytes/100 WBC (Bld) 10.3 % High 0-10 [facility] Neutrophil percentageOrdered By: Aranza Little on 10-26-2024 Neutrophils/100 WBC (Bld) 73.9 % High 47-70 [facility] Nucleated red blood cell per centageOrdered By: Aranza Little on 10-26-2024 Nucleated RBC/100 WBC (Bld) [Ratio] 0 % 0-5 [facility] Platelet countOrdered By: Pedrito Little on 10-26-2024 Platelets (Bld) [#/Vol] 170 10*3/uL 150-450 [facility] Potassium measurement (mass/ volume)Ordered By: Aranza Little on 10-26-2024 Potassium (Unsp spec) [Mass/Vol] 4.3 mmol/L 3.3-5.1 [facility] RBC Auto (Bld) [#/Vol]Ordere d By: Aranza Little on 10-26-2024 RBC (Bld) [#/Vol] 4.31 10*6/uL 4.2-5.4 [facility] Screening total cholesterol/ high density lipoprotein (HDL) cholesterol ratioOrdered By: Aranza Little on 10-26-2024 Cholesterol.total/[place] sterol in HDL [Mass ratio] 2.49 {ratio} [facility] Serum creatinine measurement (mass/volume)Ordered By: Aranza Little on 10-26-2024 Creatinine [Mass/Vol] 0.49 mg/dL Low 0.70-1.20 [facility] Serum glucose measurement (m ass/volume)Ordered By: Aranza Little on 10-26-2024 Glucose [Mass/Vol] 111 mg/dL High 70-99 [facility] Serum or plasma calcium aaron urement (mass/volume)Ordered By: Aranza Little on 10-26-2024 Calcium [Mass/Vol] 9.6 mg/dL 7.6-11.0 [facility] Serum or plasma cholesterol in HDL measurement (mass/volume)Ordered By: Aranza Little on 10-26-2024 Cholesterol in HDL [Mass/Vol] 36 mg/dL Low >40 [facility] Comment on above: National Cholesterol Education Program (NCEP) guidelines:<40 mg/dL: Low HDL-cholesterol (major risk factor for CHD)>= 60 mg/dL: High HDL-cholesterol (negative risk factor for CHD)HDL-cholesterol is affected by a number of factors, e.g. smoking, exercise, hormones, sex and age. Serum or plasma cholesterol measurement (mass/volume)Ordered By: Aranza Little on 10-26-2024 Cholesterol [Mass/Vol] 89 mg/dL <201 [facility] Comment on above: Cholesterol level, D esirable <200 mg/dLBorderline high cholesterol 200-239 mg/dLHigh cholesterol >=240 mg/dLRecommendations of the NCEP Adult Treatment Panel for the following risk-cutoff thresholds for the [place] population. Serum or plasma urea nitroge n measurement (mass/volume)Ordered By: Aranza Little on 10-26-2024 Urea nitrogen [Mass/Vol] 16 mg/dL 4-19 [facility] Sodium levelOrdered By: Funmilayo Little on 10-26-2024 Sodium [Moles/Vol] 139 mmol/L 133-145 [facility] Stress Reporton 10-26-2024 Stress Report Normal [facility] Triglycerides measurementOrd ered By: Aranza Little on 10-26-2024 Triglyceride [Mass/Vol] 76 mg/dL <199 [facility] Comment on above: The drugs N-Acetylcy steine and Metamizole may falsely depress this assay. Normal range: <150 mg/dLBorderline High: 150-199 mg/dLHigh: 200-499 mg/dLVery High: >500 mg/dL Urinalysis, Completeon 10-26 CAST,HYALINE 0-5 SEEN Normal 0-5 [facility] Comment on above: Order Comment: CLEAN CATCH Performed By: #### M 100.2200, L400.0001 ####[facility] [address] [place], [address] BACTERIA 2+ /hpf Normal None Seen [facility] Comment on above: Order Comment: CLEAN CATCH Performed By: #### M 100.2200, L400.0001 ####[facility] [address] [place], [address] EPI,TRANSITION 0-5 SEEN Normal 0-5 [facility] Comment on above: Order Comment: CLEAN CATCH Performed By: #### M 100.2200, L400.0001 ####[facility] [address] [place], [address] RBC 0-5 SEEN Normal 0-5 [facility] Comment on above: Order Comment: CLEAN CATCH Performed By: #### M 100.2200, L400.0001 ####[facility] [address] [place], [address] WBC 0-5 SEEN Normal 0-5 [facility] Comment on above: Order Comment: CLEAN CATCH Performed By: #### M 100.2200, L400.0001 ####[facility] [address] [place], [address] CA OX CRYSTAL 3+ /hpf Normal [facility] Comment on above: Order Comment: CLEAN CATCH Performed By: #### M 100.2200, L400.0001 ####[facility] [address] [place], [address] EPI,SQUAMOUS 25-50 SEEN Normal 5-10 [facility] Comment on above: Order Comment: CLEAN CATCH Performed By: #### M 100.2200, L400.0001 ####[facility] [address] [place], [address] Mucus Ql (Urine sed) 0 SEEN Normal [facility] Comment on above: Order Comment: CLEAN CATCH Performed By: #### M 100.2200, L400.0001 ####[facility] [address] [place], [address] White blood cell (WBC) count Ordered By: Aranza Little on 10-26-2024 WBC (Bld) [#/Vol] 6.4 10*3/uL 4.4-11.0 [facility] 12 Lead EKGon 10-25-2024 12 Lead EKG Normal [facility] Absolute lymphocyte countOrd ered By: Jaylen Jack on 10-25-2024 Lymphocytes Auto (Unsp spec) [#/Vol] 0.86 10*3/uL 0.83-4.51 [facility] Absolute neutrophil countOrd ered By: Jaylen Jack on 10-25-2024 Neutrophils (Bld) [#/Vol] 5.1 10*3/uL 2.0-7.7 [facility] Anion gap in Serum or Plasma Ordered By: Jaylen Jack on 10-25-2024 Anion gap [Moles/Vol] 10 mmol/L 5-15 [facility] Automated lymphocyte count a s percentage of total leukocytesOrdered By: Jaylen Jack on 10-25-2024 Lymphocytes/100 WBC Auto (Unsp spec) 13.1 % Low 19-41 [facility] BUN/creatinine ratioOrdered By: Jaylen Jack on 10-25-2024 Urea nitrogen/Creatinine [Mass ratio] 31.8 mg/mg High 10-20 [facility] Basophil percentageOrdered B y: Jaylen Jack on 10-25-2024 Basophils/100 WBC (Bld) 0.3 % 0-1 [facility] Bilirubin Test strip Ql (U)O rdered By: Aranza Little on 10-25-2024 Bilirubin Ql (U) Negative Negative [facility] Bilirubin, totalOrdered By: Jaylen Jack on 10-25-2024 Bilirubin [Mass/Vol] 0.78 mg/dL 0.00-1.[address] [facility] CBC W/Diff, Automatedon 10-01 Absolute Lymph 0.86 X10 3/uL Normal 0.83-4.51 [facility] Comment on above: Performed By: #### L 100.0100, L500.4050, L501.4021 ####[facility] [address] [place], [address] Absolute Neut 5.1 X10 3/uL Normal 2.0-7.7 [facility] Comment on above: Performed By: #### L 100.0100, L500.4050, L501.4021 ####[facility] [address] [place], [address] Basophils/100 WBC (Bld) 0.3 % Normal 0-1 [facility] Comment on above: Performed By: #### L 100.0100, L500.4050, L501.4021 ####[facility] [address] [place], [address] Eosinophils/100 WBC (Bld) 1.1 % Normal 0-5 [facility] Comment on above: Performed By: #### L 100.0100, L500.4050, L501.4021 ####[facility] [address] [place], [address] Erythrocyte distribution width (RBC) [Ratio] 13.0 % Normal 11.6-14.6 [facility] Comment on above: Performed By: #### L 100.0100, L500.4050, L501.4021 ####[facility] [address] [place], [address] Hematocrit (Bld) [Volume fraction] 43.7 % Normal 37-47 [facility] Comment on above: Performed By: #### L 100.0100, L500.4050, L501.4021 ####[facility] [address] [place], [address] Hemoglobin (Bld) [Mass/Vol] 14.2 g/dL Normal 12.0-15.0 [facility] Comment on above: Performed By: #### L 100.0100, L500.4050, L501.4021 ####[facility] [address] [place], [address] IG% 0.500 Normal 0.0-0.9 [facility] Comment on above: Result Comment: IG% - Immature Granulocytes (promyelocytes, myelocytes andmetamyelocytes) > 1% indicates that a LEFT SHIFT is Present. Performed By: #### L 100.0100, L500.4050, L501.4021 ####[facility] [address] [place], [address] Lymphocytes/100 WBC (Bld) 13.1 % Low 19-41 [facility] Comment on above: Performed By: #### L 100.0100, L500.4050, L501.4021 ####[facility] [address] [place], [address] MCH (RBC) [Entitic mass] 29.6 pg Normal 27.0-32.0 [facility] Comment on above: Performed By: #### L 100.0100, L500.4050, L501.4021 ####[facility] [address] [place], [address] MCHC (RBC) [Mass/Vol] 32.5 g/dL Normal 32-36 [facility] Comment on above: Performed By: #### L 100.0100, L500.4050, L501.4021 ####[facility] [address] [place], [address] MCV (RBC) [Entitic vol] 91.2 fL Normal 81-99 [facility] Comment on above: Performed By: #### L 100.0100, L500.4050, L501.4021 ####[facility] [address] [place], [address] Monocytes/100 WBC (Bld) 7.9 % Normal 0-10 [facility] Comment on above: Performed By: #### L 100.0100, L500.4050, L501.4021 ####[facility] [address] [place], [address] Neutrophils/100 WBC (Bld) 77.1 % High 47-70 [facility] Comment on above: Performed By: #### L 100.0100, L500.4050, L501.4021 ####[facility] [address] [place], [address] Nucleated RBC (Bld) [#/Vol] 0 10*3/uL Normal 0-5 [facility] Comment on above: Performed By: #### L 100.0100, L500.4050, L501.4021 ####[facility] [address] [place], [address] Platelet mean volume (Bld) [Entitic vol] 10.1 fL Normal 6.2-12.0 [facility] Comment on above: Performed By: #### L 100.0100, L500.4050, L501.4021 ####[facility] [address] [place], [address] Platelets (Bld) [#/Vol] 232 10*3/uL Normal 150-450 [facility] Comment on above: Performed By: #### L 100.0100, L500.4050, L501.4021 ####[facility] [address] [place], [address] RBC (Bld) [#/Vol] 4.79 10*6/uL Normal 4.2-5.4 [facility] Comment on above: Performed By: #### L 100.0100, L500.4050, L501.4021 ####[facility] [address] [place], [address] RDW SD 43.1 fl Normal 35.1-43.9 [facility] Comment on above: Performed By: #### L 100.0100, L500.4050, L501.4021 ####[facility] [address] [place], [address] WBC (Bld) [#/Vol] 6.6 10*3/uL Normal 4.4-11.0 [facility] Comment on above: Performed By: #### L 100.0100, L500.4050, L501.4021 ####[facility] [address] [place], [address] Calcium oxalate crystals det ection in urine sediment by light microscopyOrdered By: Aarnza Little on 10-25-2024 Calcium oxalate crystals LM Ql (Urine sed) 3+ /hpf [facility] Carbon dioxide, total [Moles /volume] in Central venous bloodOrdered By: Jaylen Jack on 10-25-2024 CO2 [Moles/Vol] 25.4 mmol/L 21.0-32.0 [facility] Chest 1 View (Portable)on Chest 1 View (Portable) Normal [facility] Chloride assayOrdered By: Th maryuri Jack on 10-25-2024 Chloride [Moles/Vol] 104 mmol/L 98-[address] [facility] Comprehensive Metabolic Prof ilon 10-25-2024 Albumin [Mass/Vol] 3.4 g/dL Normal 3.4-4.8 [facility] Comment on above: Performed By: #### L 100.0100, L500.4050, L501.4021 ####[facility] [address] [place], [address] Albumin/Globulin [Mass ratio] 1.2 {ratio} Normal 0.9-2.4 [facility] Comment on above: Performed By: #### L 100.0100, L500.4050, L501.4021 ####[facility] [address] [place], [address] ALK PHOS 103 U/L Normal 35-104 [facility] Comment on above: Performed By: #### L 100.0100, L500.4050, L501.4021 ####[facility] [address] [place], [address] ALT [Catalytic activity/Vol] 14 U/L Normal <=34 [facility] Comment on above: Performed By: #### L 100.0100, L500.4050, L501.4021 ####[facility] [address] [place], [address] AST [Catalytic activity/Vol] 17 U/L Normal <=31 [facility] Comment on above: Performed By: #### L 100.0100, L500.4050, L501.4021 ####[facility] [address] [place], [address] Bilirubin [Mass/Vol] 0.78 mg/dL Normal 0.00-1.[address] [facility] Comment on above: Performed By: #### L 100.0100, L500.4050, L501.4021 ####[facility] [address] [place], [address] BUN/CRE 31.8 RATIO High 10-20 [facility] Comment on above: Performed By: #### L 100.0100, L500.4050, L501.4021 ####[facility] [address] [place], [address] Calcium [Mass/Vol] 10.2 mg/dL Normal 7.6-11.0 [facility] Comment on above: Performed By: #### L 100.0100, L500.4050, L501.4021 ####[facility] [address] [place], [address] Chloride [Moles/Vol] 104 mmol/L Normal 98-[address] [facility] Comment on above: Performed By: #### L 100.0100, L500.4050, L501.4021 ####[facility] [address] [place], [address] CO2 [Moles/Vol] 25.4 mmol/L Normal 21.0-32.0 [facility] Comment on above: Performed By: #### L 100.0100, L500.4050, L501.4021 ####[facility] [address] [place], [address] Creatinine [Mass/Vol] 0.52 mg/dL Low 0.70-1.20 [facility] Comment on above: Performed By: #### L 100.0100, L500.4050, L501.4021 ####[facility] [address] [place], [address] ECRCL 57.78 ml/min Normal 50-250 [facility] Comment on above: Performed By: #### L 100.0100, L500.4050, L501.4021 ####[facility] [address] [place], [address] GAP 10 Normal 5-15 [facility] Comment on above: Performed By: #### L 100.0100, L500.4050, L501.4021 ####[facility] [address] [place], [address] GFR/1.73 sq M.predicted among non-blacks MDRD (S/P/Bld) [Vol rate/Area] 94 mL/min/{1.73_m2} Normal >60 [facility] Comment on above: Result Comment: mL/m in/1.73m2 CKD-EPI Creatinine Equation (2020) Performed By: #### L 100.0100, L500.4050, L501.4021 ####[facility] [address] [place], [address] Globulin (S) [Mass/Vol] 2.7 g/dL Normal 2.2-4.2 [facility] Comment on above: Performed By: #### L 100.0100, L500.4050, L501.4021 ####[facility] [address] [place], [address] Glucose [Mass/Vol] 141 mg/dL High 70-99 [facility] Comment on above: Performed By: #### L 100.0100, L500.4050, L501.4021 ####[facility] [address] [place], [address] Potassium [Moles/Vol] 4.2 mmol/L Normal 3.3-5.1 [facility] Comment on above: Performed By: #### L 100.0100, L500.4050, L501.4021 ####[facility] [address] [place], [address] Sodium [Moles/Vol] 139 mmol/L Normal 133-145 [facility] Comment on above: Performed By: #### L 100.0100, L500.4050, L501.4021 ####[facility] [address] [place], [address] T PROT 6.0 g/dL Normal 5.9-8.4 [facility] Comment on above: Performed By: #### L 100.0100, L500.4050, L501.4021 ####[facility] [address] [place], [address] Urea nitrogen [Mass/Vol] 16 mg/dL Normal 4-19 [facility] Comment on above: Performed By: #### L 100.0100, L500.4050, L501.4021 ####[facility] [address] [place], [address] Echo Completeon 10-25-2024 Echo Complete Normal [facility] Emergency Department Summary on 10-25-2024 Emergency Department Summary Normal [facility] Eosinophil percentageOrdered By: Jaylen Jack on 10-25-2024 Eosinophils/100 WBC (Bld) 1.1 % 0-5 [facility] Erythrocyte distribution wid th ratioOrdered By: Jaylne Jack on 10-25-2024 Erythrocyte distribution width (RBC) [Ratio] 13.0 % 11.6-14.6 [facility] Erythrocyte distribution wid th standard deviationOrdered By: Jaylen Jack on 10-25-2024 Erythrocyte distribution width (RBC) [Ratio] 43.1 fl 35.1-43.9 [facility] Glomerular filtration rate ( GFR) estimation/1.73 sq m using serum, plasma, or whole bOrdered By: Jaylen Jack on 10-25-2024 GFR/1.73 sq M.predicted among non-blacks MDRD (S/P/Bld) [Vol rate/Area] 94 mL/min/{1.73_m2} >60 [facility] Comment on above: mL/min/1.73m2 CKD-EP I Creatinine Equation (2020) H AND P Exam - Hospital[facility] 10-25-2024 H&P Exam - Hospitalist Normal [facility] Hematocrit Auto (Bld) [Volum e fraction]Ordered By: Jaylen Jack on 10-25-2024 Hematocrit (Bld) [Volume fraction] 43.7 % 37-47 [facility] Hemoglobin measurementOrdere d By: Jaylen Jack on 10-25-2024 Hemoglobin (Bld) [Mass/Vol] 14.2 g/dL 12.0-15.0 [facility] Hyaline casts LM.LPF (Urine sed) [#/Area]Ordered By: Aranza Little on 10-25-2024 Hyaline casts (Urine sed) [#/Area] 0 /[LPF] 0-5 [facility] Immature granulocytes/100 WB C Auto (Bld)Ordered By: Jaylen Jack on 10-25-2024 Immature granulocytes/100 WBC (Bld) 0.500 % 0.0-0.9 [facility] Comment on above: IG% - Immature Granu locytes (promyelocytes, myelocytes and metamyelocytes) > 1% indicates that a LEFT SHIFT is Present. Ketones Test strip Ql (U)Ord ered By: Aranza Little on 10-25-2024 Ketones Ql (U) Negative Negative [facility] L501.4021on 10-25-2024 Trop T High Sen 21 ng/L High <=14 [facility] Comment on above: Performed By: #### L 100.0100, L500.4050, L501.4021 ####[facility] [address] [place], [address] Laboratory - Chemistry and C hemistry - challengeOrdered By: Jaylen Jack on 10-25-2024 AST [Catalytic activity/Vol] 17 U/L <32 [facility] MCV (mean corpuscular volume ) determinationOrdered By: Jaylen Jack on 10-25-2024 MCV (RBC) [Entitic vol] 91.2 fL 81-99 [facility] Mean corpuscular hemoglobin (MCH) determinationOrdered By: Jaylen Jack on 10-25-2024 MCH (RBC) [Entitic mass] 29.6 pg 27.0-32.0 [facility] Mean corpuscular hemoglobin concentration (MCHC) determinationOrdered By: Jaylen Jack on 10-25-2024 MCHC (RBC) [Mass/Vol] 32.5 g/dL 32-36 [facility] Mean platelet volume determi nationOrdered By: Jaylen Jack on 10-25-2024 Platelet mean volume (Bld) [Entitic vol] 10.1 fL 6.2-12.0 [facility] Microscopic analysis of urin e for red blood cells (RBC)Ordered By: Aranza Little on 10-25-2024 Microscopic analysis of urine for red blood cells (RBC) 0-5 SEEN /hpf 0-5 [facility] Monocyte percentageOrdered B y: Jaylen Jack on 10-25-2024 Monocytes/100 WBC (Bld) 7.9 % 0-10 [facility] Mucus LM Ql (Urine sed)Order ed By: Aranza Little on 10-25-2024 Mucus Ql (Urine sed) 0 SEEN /hpf [facility] Neutrophil percentageOrdered By: Jaylen Jack on 10-25-2024 Neutrophils/100 WBC (Bld) 77.1 % High 47-70 [facility] Nitrite Test strip Ql (U)Ord ered By: Aranza Little on 10-25-2024 Nitrite Ql (U) Negative Negative [facility] No Panel InformationOrdered By: Jaylen Jack on 10-25-2024 17 U/L <32 [facility] Nucleated red blood cell per centageOrdered By: Jaylen Jack on 10-25-2024 Nucleated RBC/100 WBC (Bld) [Ratio] 0 % 0-5 [facility] Platelet countOrdered By: maryuri Jack on 10-25-2024 Platelets (Bld) [#/Vol] 232 10*3/uL 150-450 [facility] Potassium measurement (mass/ volume)Ordered By: Jaylen Jack on 10-25-2024 Potassium (Unsp spec) [Mass/Vol] 4.2 mmol/L 3.3-5.1 [facility] Protein Test strip Ql (U)Ord ered By: Aranza Little on 10-25-2024 Protein Ql (U) 30 mg/dl High Negative [facility] RBC Auto (Bld) [#/Vol]Ordere d By: Jaylen Jack on 10-25-2024 RBC (Bld) [#/Vol] 4.79 10*6/uL 4.2-5.4 [facility] Serum creatinine measurement (mass/volume)Ordered By: Jaylen Jack on 10-25-2024 Creatinine [Mass/Vol] 0.52 mg/dL Low 0.70-1.20 [facility] Serum globulin measurementOr dered By: Jaylen Jack on 10-25-2024 Globulin (S) [Mass/Vol] 2.7 g/dL 2.2-4.2 [facility] Serum glucose measurement (m ass/volume)Ordered By: Jaylen Jack on 10-25-2024 Glucose [Mass/Vol] 141 mg/dL High 70-99 [facility] Serum or plasma alanine rajput otransferase (ALT) measurementOrdered By: Jaylen Jack on 10-25-2024 ALT [Catalytic activity/Vol] 14 U/L <35 [facility] Serum or plasma albumin aaron urement (mass/volume)Ordered By: Jaylen Jack on 10-25-2024 Albumin [Mass/Vol] 3.4 g/dL 3.4-4.8 [facility] Serum or plasma albumin/glob ulin mass ratioOrdered By: Jaylen Jack on 10-25-2024 Albumin/Globulin [Mass ratio] 1.2 {ratio} 0.9-2.4 [facility] Serum or plasma alkaline bernardo sphatase measurementOrdered By: Jaylen Jack on 10-25-2024 ALP [Catalytic activity/Vol] 103 U/L 35-104 [facility] Serum or plasma calcium aaron urement (mass/volume)Ordered By: Jaylen Jack on 10-25-2024 Calcium [Mass/Vol] 10.2 mg/dL 7.6-11.0 [facility] Serum or plasma urea nitroge n measurement (mass/volume)Ordered By: Jaylen Jack on 10-25-2024 Urea nitrogen [Mass/Vol] 16 mg/dL 4-19 [facility] Sodium levelOrdered By: Ramos Jack on 10-25-2024 Sodium [Moles/Vol] 139 mmol/L 133-145 [facility] Squamous epithelial cells de tection in urine sediment by light microscopyOrdered By: Aranza Little on 10-25-2024 Epithelial cells.squamous LM Ql (Urine sed) 25-50 SEEN /hpf 5-10 [facility] Total proteinOrdered By: Olesya Jack on 10-25-2024 Protein [Mass/Vol] 6.0 g/dL 5.9-8.4 [facility] Transitional cells detection in urine sediment by light microscopyOrdered By: Aranza Little on 10-25-2024 Transitional cells LM Ql (Urine sed) 0-5 SEEN /hpf 0-5 [facility] Troponin T HS 2 HRon 025 Trop T High Sen 15 ng/L High <=14 [facility] Comment on above: Result Comment: Hemo lysis present, Results??could be affected.?? Performed By: #### L 499.0042 ####[facility] [address] [place], [place], [id number] Troponin T HS 4 HRon 025 Trop T High Sen 18 ng/L High <=14 [facility] Comment on above: Performed By: #### L 499.0043 ####[facility] [address] [facility] [address] [facility] [address] [place], [place], [id number] Troponin T.cardiac [Mass/vol ume] in Serum or Plasma by High sensitivity methodOrdered By: Jaylen Jack on 10-25-2024 Troponin T.cardiac High sensitivity method [Mass/Vol] 18 ng/L High <14 [facility] Troponin T.cardiac High sensitivity method [Mass/Vol] 15 ng/L High <14 [facility] Comment on above: Hemolysis present, R esults could be affected. Troponin T.cardiac High sensitivity method [Mass/Vol] 21 ng/L High <14 [facility] Urine clarityOrdered By: Enedelia Little on 10-25-2024 Clarity (U) Sl. 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 [facility] Bacteria identified Cx Nom (U) Positive Abnormal [facility] Urine glucose detectionOrder ed By: Aranza Little on 10-25-2024 Glucose Ql (U) Normal mg/dl Normal [facility] Urine leukocyte esterase det ection by dipstickOrdered By: Aranza Little on 10-25-2024 Leukocyte esterase Test strip Ql (U) Negative Negative [facility] Urine pHOrdered By: Aranza houston on 10-25-2024 pH (U) 5.0 [pH] 5.0 - 8.0 [facility] Urine sediment bacteria coun t by microscopy (number/high power field)Ordered By: Aranza Little on 10-25-2024 Bacteria LM.HPF (Urine sed) [#/Area] 2 /[HPF] None Seen [facility] Urine specific gravity measu rementOrdered By: Aranza Little on 10-25-2024 Specific gravity (U) [Rel density] 1.025 1.002-1.030 [facility] Urine urobilinogen measureme ntOrdered By: Aranza Little on 10-25-2024 Urobilinogen Ql (U) Normal mg/dl Normal [facility] White blood cell (WBC) count Ordered By: Jaylen Jack on 10-25-2024 WBC (Bld) [#/Vol] 6.6 10*3/uL 4.4-11.0 [facility] White blood cell countOrdere d By: Aranza Little on 10-25-2024 White blood cell count 0-5 SEEN /hpf 0-5 [facility] 12 Lead EKGon 10-21-2024 12 Lead EKG Normal [facility] Absolute lymphocyte countOrd ered By: Donovan Pierson on 10-21-2024 Lymphocytes Auto (Unsp spec) [#/Vol] 0.94 10*3/uL 0.83-4.51 [facility] Absolute neutrophil countOrd ered By: Donovan Pierson on 10-21-2024 Neutrophils (Bld) [#/Vol] 5.0 10*3/uL 2.0-7.7 [facility] Anion gap in Serum or Plasma Ordered By: Donovan Pierson on 10-21-2024 Anion gap [Moles/Vol] 9 mmol/L 5-15 [facility] Automated lymphocyte count a s percentage of total leukocytesOrdered By: Donovan Pierson on 10-21-2024 Lymphocytes/100 WBC Auto (Unsp spec) 14.0 % Low 19-41 [facility] BUN/creatinine ratioOrdered By: Donovan Pierson on 10-21-2024 Urea nitrogen/Creatinine [Mass ratio] 34.9 mg/mg High 10- [facility] Basic Metabolic Profile (BMP )on 10-21-2024 BUN/CRE 34.9 RATIO High - [facility] Comment on above: Performed By: #### L 501.4021, L100.0100, L500.2500 ####[facility] [address] [place], [address] Calcium [Mass/Vol] 10.1 mg/dL Normal 7.6-11.0 [facility] Comment on above: Performed By: #### L 501.4021, L100.0100, L500.2500 ####[facility] [address] [place], [address] Chloride [Moles/Vol] 103 mmol/L Normal 98-[address] [facility] Comment on above: Performed By: #### L 501.4021, L100.0100, L500.2500 ####[facility] [address] [place], [address] CO2 [Moles/Vol] 27.1 mmol/L Normal 21.0-32.0 [facility] Comment on above: Performed By: #### L 501.4021, L100.0100, L500.2500 ####[facility] [address] [place], [address] Creatinine [Mass/Vol] 0.44 mg/dL Low 0.70-1.20 [facility] Comment on above: Performed By: #### L 501.4021, L100.0100, L500.2500 ####[facility] [address] [place], [address] ECRCL 58.95 ml/min Normal 50-250 [facility] Comment on above: Performed By: #### L 501.4021, L100.0100, L500.2500 ####[facility] [address] [place], [address] GAP 9 Normal 5-15 [facility] Comment on above: Performed By: #### L 501.4021, L100.0100, L500.2500 ####[facility] [address] [place], [address] GFR/1.73 sq M.predicted among non-blacks MDRD (S/P/Bld) [Vol rate/Area] 98 mL/min/{1.73_m2} Normal >60 [facility] Comment on above: Result Comment: mL/m in/1.73m2 CKD-EPI Creatinine Equation (2020) Performed By: #### L 501.4021, L100.0100, L500.2500 ####[facility] [address] [place], [address] Glucose [Mass/Vol] 114 mg/dL High 70-99 [facility] Comment on above: Performed By: #### L 501.4021, L100.0100, L500.2500 ####[facility] [address] [place], [address] Potassium [Moles/Vol] 4.2 mmol/L Normal 3.3-5.1 [facility] Comment on above: Performed By: #### L 501.4021, L100.0100, L500.2500 ####[facility] [address] [place], [address] Sodium [Moles/Vol] 139 mmol/L Normal 133-145 [facility] Comment on above: Performed By: #### L 501.4021, L100.0100, L500.2500 ####[facility] [address] [place], [address] Urea nitrogen [Mass/Vol] 15 mg/dL Normal 4-19 [facility] Comment on above: Performed By: #### L 501.4021, L100.0100, L500.2500 ####[facility] [address] [place], [address] Basophil percentageOrdered B y: Donovan Pierson on 10-21-2024 Basophils/100 WBC (Bld) 0.4 % 0-1 [facility] CBC W/Diff, Automatedon 10-01 Absolute Lymph 0.94 X10 3/uL Normal 0.83-4.51 [facility] Comment on above: Performed By: #### L 501.4021, L100.0100, L500.2500 ####[facility] [address] [place], [address] Absolute Neut 5.0 X10 3/uL Normal 2.0-7.7 [facility] Comment on above: Performed By: #### L 501.4021, L100.0100, L500.2500 ####[facility] [address] [place], [address] Basophils/100 WBC (Bld) 0.4 % Normal 0-1 [facility] Comment on above: Performed By: #### L 501.4021, L100.0100, L500.2500 ####[facility] [address] [place], [address] Eosinophils/100 WBC (Bld) 1.2 % Normal 0-5 [facility] Comment on above: Performed By: #### L 501.4021, L100.0100, L500.2500 ####[facility] [address] [place], [address] Erythrocyte distribution width (RBC) [Ratio] 12.7 % Normal 11.6-14.6 [facility] Comment on above: Performed By: #### L 501.4021, L100.0100, L500.2500 ####[facility] [address] [place], [address] Hematocrit (Bld) [Volume fraction] 44.8 % Normal 37-47 [facility] Comment on above: Performed By: #### L 501.4021, L100.0100, L500.2500 ####[facility] [address] [place], [address] Hemoglobin (Bld) [Mass/Vol] 14.6 g/dL Normal 12.0-15.0 [facility] Comment on above: Performed By: #### L 501.4021, L100.0100, L500.2500 ####[facility] [address] [place], [address] IG% 0.300 Normal 0.0-0.9 [facility] Comment on above: Result Comment: IG% - Immature Granulocytes (promyelocytes, myelocytes andmetamyelocytes) > 1% indicates that a LEFT SHIFT is Present. Performed By: #### L 501.4021, L100.0100, L500.2500 ####[facility] [address] [place], [address] Lymphocytes/100 WBC (Bld) 14.0 % Low 19-41 [facility] Comment on above: Performed By: #### L 501.4021, L100.0100, L500.2500 ####[facility] [address] [place], [address] MCH (RBC) [Entitic mass] 29.6 pg Normal 27.0-32.0 [facility] Comment on above: Performed By: #### L 501.4021, L100.0100, L500.2500 ####[facility] [address] [place], [address] MCHC (RBC) [Mass/Vol] 32.6 g/dL Normal 32-36 [facility] Comment on above: Performed By: #### L 501.4021, L100.0100, L500.2500 ####[facility] [address] [place], [address] MCV (RBC) [Entitic vol] 90.9 fL Normal 81-99 [facility] Comment on above: Performed By: #### L 501.4021, L100.0100, L500.2500 ####[facility] [address] [place], [address] Monocytes/100 WBC (Bld) 9.1 % Normal 0-10 [facility] Comment on above: Performed By: #### L 501.4021, L100.0100, L500.2500 ####[facility] [address] [place], [address] Neutrophils/100 WBC (Bld) 75.0 % High 47-70 [facility] Comment on above: Performed By: #### L 501.4021, L100.0100, L500.2500 ####[facility] [address] [place], [address] Nucleated RBC (Bld) [#/Vol] 0 10*3/uL Normal 0-5 [facility] Comment on above: Performed By: #### L 501.4021, L100.0100, L500.2500 ####[facility] [address] [place], [address] Platelet mean volume (Bld) [Entitic vol] 9.6 fL Normal 6.2-12.0 [facility] Comment on above: Performed By: #### L 501.4021, L100.0100, L500.2500 ####[facility] [address] [place], [address] Platelets (Bld) [#/Vol] 208 10*3/uL Normal 150-450 [facility] Comment on above: Performed By: #### L 501.4021, L100.0100, L500.2500 ####[facility] [address] [place], [address] RBC (Bld) [#/Vol] 4.93 10*6/uL Normal 4.2-5.4 [facility] Comment on above: Performed By: #### L 501.4021, L100.0100, L500.2500 ####[facility] [address] [place], [address] RDW SD 42.5 fl Normal 35.1-43.9 [facility] Comment on above: Performed By: #### L 501.4021, L100.0100, L500.2500 ####[facility] [address] [place], [address] WBC (Bld) [#/Vol] 6.7 10*3/uL Normal 4.4-11.0 [facility] Comment on above: Performed By: #### L 501.4021, L100.0100, L500.2500 ####[facility] [address] [place], [address] Carbon dioxide, total [Moles /volume] in Central venous bloodOrdered By: Donovan Pierson on 10-21-2024 CO2 [Moles/Vol] 27.1 mmol/L 21.0-32.0 [facility] Chest 1 View (Portable)on Chest 1 View (Portable) Normal [facility] Chloride assayOrdered By: Joe Pierson on 10-21-2024 Chloride [Moles/Vol] 103 mmol/L 98-[address] [facility] Emergency Department Summary on 10-21-2024 Emergency Department Summary Normal [facility] Eosinophil percentageOrdered By: Donovan Pierson on 10-21-2024 Eosinophils/100 WBC (Bld) 1.2 % 0-5 [facility] Erythrocyte distribution wid th ratioOrdered By: Donovan Pierson on 10-21-2024 Erythrocyte distribution width (RBC) [Ratio] 12.7 % 11.6-14.6 [facility] Erythrocyte distribution wid th standard deviationOrdered By: Donovan Pierson on 10-21-2024 Erythrocyte distribution width (RBC) [Ratio] 42.5 fl 35.1-43.9 [facility] Glomerular filtration rate ( GFR) estimation/1.73 sq m using serum, plasma, or whole bOrdered By: Donovan Pierson on 10-21-2024 GFR/1.73 sq M.predicted among non-blacks MDRD (S/P/Bld) [Vol rate/Area] 98 mL/min/{1.73_m2} >60 [facility] Comment on above: mL/min/1.73m2 CKD-EP I Creatinine Equation (2020) Hematocrit Auto (Bld) [Volum e fraction]Ordered By: Donovan Pierson on 10-21-2024 Hematocrit (Bld) [Volume fraction] 44.8 % 37-47 [facility] Hemoglobin measurementOrdere d By: Donovan Pierson on 10-21-2024 Hemoglobin (Bld) [Mass/Vol] 14.6 g/dL 12.0-15.0 [facility] Immature granulocytes/100 WB C Auto (Bld)Ordered By: Donovan Pierson on 10-21-2024 Immature granulocytes/100 WBC (Bld) 0.300 % 0.0-0.9 [facility] Comment on above: IG% - Immature Granu locytes (promyelocytes, myelocytes and metamyelocytes) > 1% indicates that a LEFT SHIFT is Present. L501.4021on 10-21-2024 Trop T High Sen 20 ng/L High <=14 [facility] Comment on above: Performed By: #### L 501.4021, L100.0100, L500.2500 ####[facility] [address] [place], [address] MCV (mean corpuscular volume ) determinationOrdered By: Donovan Pierson on 10-21-2024 MCV (RBC) [Entitic vol] 90.9 fL 81-99 [facility] Mean corpuscular hemoglobin (MCH) determinationOrdered By: Donovan Pierson on 10-21-2024 MCH (RBC) [Entitic mass] 29.6 pg 27.0-32.0 [facility] Mean corpuscular hemoglobin concentration (MCHC) determinationOrdered By: Donovan Pierson on 10-21-2024 MCHC (RBC) [Mass/Vol] 32.6 g/dL 32-36 [facility] Mean platelet volume determi nationOrdered By: Donovan Pierson on 10-21-2024 Platelet mean volume (Bld) [Entitic vol] 9.6 fL 6.2-12.0 [facility] Monocyte percentageOrdered B y: Donovan Pierson on 10-21-2024 Monocytes/100 WBC (Bld) 9.1 % 0-10 [facility] Neutrophil percentageOrdered By: Donovan Pierson on 10-21-2024 Neutrophils/100 WBC (Bld) 75.0 % High 47-70 [facility] Nucleated red blood cell per centageOrdered By: Donovan Pierson on 10-21-2024 Nucleated RBC/100 WBC (Bld) [Ratio] 0 % 0-5 [facility] Platelet countOrdered By: Joe Pierson on 10-21-2024 Platelets (Bld) [#/Vol] 208 10*3/uL 150-450 [facility] Potassium measurement (mass/ volume)Ordered By: Donovan Pierson on 10-21-2024 Potassium (Unsp spec) [Mass/Vol] 4.2 mmol/L 3.3-5.1 [facility] RBC Auto (Bld) [#/Vol]Ordere d By: Donovan Pierson on 10-21-2024 RBC (Bld) [#/Vol] 4.93 10*6/uL 4.2-5.4 [facility] Serum creatinine measurement (mass/volume)Ordered By: Donovan Pierson on 10-21-2024 Creatinine [Mass/Vol] 0.44 mg/dL Low 0.70-1.20 [facility] Serum glucose measurement (m ass/volume)Ordered By: Donovan Pierson on 10-21-2024 Glucose [Mass/Vol] 114 mg/dL High 70-99 [facility] Serum or plasma calcium aaron urement (mass/volume)Ordered By: Donovan Pierson on 10-21-2024 Calcium [Mass/Vol] 10.1 mg/dL 7.6-11.0 [facility] Serum or plasma urea nitroge n measurement (mass/volume)Ordered By: Donovan Pierson on 10-21-2024 Urea nitrogen [Mass/Vol] 15 mg/dL 4-19 [facility] Sodium levelOrdered By: Donovan Pierson on 10-21-2024 Sodium [Moles/Vol] 139 mmol/L 133-145 [facility] Troponin T HS 2 HRon 025 Trop T High Sen 19 ng/L High <=14 [facility] Comment on above: Performed By: #### L 499.0042 ####[facility] [address] [place], [place], [phone] Troponin T HS 4 HRon 025 Trop T High Sen Normal <=14 [facility] Comment on above: Result Comment: JORGE ENT DISCHARGED Performed By: #### L 499.0043 ####[facility] [address] [place], [place], [phone] Troponin T.cardiac [Mass/vol ume] in Serum or Plasma by High sensitivity methodOrdered By: Donovan Pierson on 10-21-2024 Troponin T.cardiac High sensitivity method [Mass/Vol] 19 ng/L High <14 [facility] Troponin T.cardiac High sensitivity method [Mass/Vol] 20 ng/L High <14 [facility] Comment on above: Delta: 14 on White blood cell (WBC) count Ordered By: Donovan Pierson on 10-21-2024 WBC (Bld) [#/Vol] 6.7 10*3/uL 4.4-11.0 [facility] Bilirubin directOrdered By: Ginger Grace on 10-01-2024 Bilirubin.direct [Mass/Vol] 0.31 mg/dL High 0.00-0.30 [facility] Comment on above: Hemolysis present, R esults could be affected. Bilirubin, totalOrdered By: Ginger Grace on 10-01-2024 Bilirubin [Mass/Vol] 0.76 mg/dL 0.00-1.[address] [facility] Calculated very low density lipoprotein (VLDL) cholesterol measurementOrdered By: Ginger Grace on 10-01-2024 Calculated very low density lipoprotein (VLDL) cholesterol measurement 22 mg/dL 5-40 [facility] LDL calc ser/plasOrdered By: Ginger Grace on 10-01-2024 Cholesterol in LDL [Mass/Vol] 41 mg/dL [facility] Comment on above: Jdmzynzgsf=197-310 m g/dL & Higher Epln=529 mg/dL or greaterFriedwald Equation for LDL-C Laboratory - Chemistry and C hemistry - challengeOrdered By: Ginger Grace on 10-01-2024 AST [Catalytic activity/Vol] 21 U/L <32 [facility] Comment on above: Hemolysis present, R esults could be affected. Lipid Profileon 10-01-2024 CHOL:HDL 2.46 Normal [facility] Comment on above: Performed By: #### L 500.4100, L500.3400 ####[facility] [address] [place], [place], [id number] Cholesterol [Mass/Vol] 106 mg/dL Normal <=200 [facility] Comment on above: Result Comment: Chol esterol level, Desirable <200 mg/dLBorderline high cholesterol 200-239 mg/dLHigh cholesterol >=240 mg/dLRecommendations of the NCEP Adult Treatment Panel for thefollowing risk-cutoff thresholds for the [place] Americanpulation. Performed By: #### L 500.4100, L500.3400 ####[facility] [address] [facility] [address] [place], [place], [id number] Cholesterol in HDL [Mass/Vol] 43 mg/dL Normal [facility] Comment on above: Result Comment: Taty onal Cholesterol Education Program (NCEP) guidelines:<40 mg/dL: Low HDL-cholesterol (major risk factor for CHD)>= 60 mg/dL: High HDL-cholesterol (negative risk factor forCHD)HDL-cholesterol is affected by a number of factors, e.g.smoking, exercise, hormones, sex and age. Performed By: #### L 500.4100, L500.3400 ####[facility] [address] [place], [address] Cholesterol in LDL [Mass/Vol] 41 mg/dL Normal [facility] Comment on above: Result Comment: Bord zjspuy=320-562 mg/dL Higher Xwzx=071 mg/dL or greaterFriedwald Equation for LDL-C Performed By: #### L 500.4100, L500.3400 ####[facility] [address] [place], [address] Cholesterol in VLDL [Mass/Vol] 22 mg/dL Normal 5-40 [facility] Comment on above: Performed By: #### L 500.4100, L500.3400 ####[facility] [address] [place], [address] Triglyceride [Mass/Vol] 108 mg/dL Normal [facility] Comment on above: Result Comment: The drugs N-Acetylcysteine and Metamizole may falselydepress this assay.Normal range: <150 mg/dLBorderline High: 150-199 mg/dLHigh: 200-499 mg/dLVery High: >500 mg/dL Performed By: #### L 500.4100, L500.3400 ####[facility] [address] [place], [address] Liver Profileon 10-01-2024 Albumin [Mass/Vol] 3.4 g/dL Normal 3.4-4.8 [facility] Comment on above: Performed By: #### L 500.4100, L500.3400 ####[facility] [address] [place], [address] ALK PHOS 101 U/L Normal 35-104 [facility] Comment on above: Performed By: #### L 500.4100, L500.3400 ####[facility] [address] [place], [address] ALT [Catalytic activity/Vol] 18 U/L Normal <=34 [facility] Comment on above: Performed By: #### L 500.4100, L500.3400 ####[facility] [address] [place], [address] AST [Catalytic activity/Vol] 21 U/L Normal <=31 [facility] Comment on above: Result Comment: Hemo lysis present, Results??could be affected.?? Performed By: #### L 500.4100, L500.3400 ####[facility] [address] [place], [address] Bilirubin [Mass/Vol] 0.76 mg/dL Normal 0.00-1.[address] [facility] Comment on above: Performed By: #### L 500.4100, L500.3400 ####[facility] [address] [place], [address] Bilirubin.direct [Mass/Vol] 0.31 mg/dL High 0.00-0.30 [facility] Comment on above: Result Comment: Hemo lysis present, Results??could be affected.?? Performed By: #### L 500.4100, L500.3400 ####[facility] [address] [place], [address] Globulin (S) [Mass/Vol] 2.8 g/dL Normal 2.2-4.2 [facility] Comment on above: Performed By: #### L 500.4100, L500.3400 ####[facility] [address] [place], [address] T PROT 6.2 g/dL Normal 5.9-8.4 [facility] Comment on above: Performed By: #### L 500.4100, L500.3400 ####[facility] [address] [place], [address] No Panel InformationOrdered By: Ginger Grace on 10-01-2024 21 U/L <32 [facility] Screening total cholesterol/ high density lipoprotein (HDL) cholesterol ratioOrdered By: Ginger Grace on 10-01-2024 Cholesterol.total/[place] sterol in HDL [Mass ratio] 2.46 {ratio} [facility] Serum globulin measurementOr dered By: Ginger Grace on 10-01-2024 Globulin (S) [Mass/Vol] 2.8 g/dL 2.2-4.2 [facility] Serum or plasma alanine rajput otransferase (ALT) measurementOrdered By: Ginger Grace on 10-01-2024 ALT [Catalytic activity/Vol] 18 U/L <35 [facility] Serum or plasma albumin aaron urement (mass/volume)Ordered By: Ginger Grace on 10-01-2024 Albumin [Mass/Vol] 3.4 g/dL 3.4-4.8 [facility] Serum or plasma alkaline bernardo sphatase measurementOrdered By: Ginger Grace on 10-01-2024 ALP [Catalytic activity/Vol] 101 U/L 35-104 [facility] Serum or plasma cholesterol in HDL measurement (mass/volume)Ordered By: Ginger Grace on 10-01-2024 Cholesterol in HDL [Mass/Vol] 43 mg/dL >40 [facility] Comment on above: National Cholesterol Education Program (NCEP) guidelines:<40 mg/dL: Low HDL-cholesterol (major risk factor for CHD)>= 60 mg/dL: High HDL-cholesterol (negative risk factor for CHD)HDL-cholesterol is affected by a number of factors, e.g. smoking, exercise, hormones, sex and age. Serum or plasma cholesterol measurement (mass/volume)Ordered By: Ginger Grace on 10-01-2024 Cholesterol [Mass/Vol] 106 mg/dL <201 [facility] Comment on above: Cholesterol level, D esirable <200 mg/dLBorderline high cholesterol 200-239 mg/dLHigh cholesterol >=240 mg/dLRecommendations of the NCEP Adult Treatment Panel for the following risk-cutoff thresholds for the [place] population. TSH DL <= 0.005 mIU/L QnOrde red By: Kale Coty on 10-01-2024 TSH Qn 0.011 uIU/mL Low 0.300-4.200 [facility] Thyroid Stim Hormone (TSH)on 10-01-2024 TSH 0.011 uIU/mL Low 0.300-4.200 [facility] Comment on above: Performed By: #### L 501.9520 ####[facility] [address] [place], [place], [address] Total proteinOrdered By: Laron Grace on 10-01-2024 Protein [Mass/Vol] 6.2 g/dL 5.9-8.4 [facility] Triglycerides measurementOrd ered By: Ginger Grace on 10-01-2024 Triglyceride [Mass/Vol] 108 mg/dL <199 [facility] Comment on above: The drugs N-Acetylcy steine and Metamizole may falsely depress this assay. Normal range: <150 mg/dLBorderline High: 150-199 mg/dLHigh: 200-499 mg/dLVery High: >500 mg/dL L499.0043on 09-10-2024 Trop T High Sen Normal <=14 [facility] Comment on above: Result Comment: Canmaksim elled via OM: Order cancelled - Patient discharged Performed By: #### L 499.0043 ####[facility] [address] [place], [address] Absolute lymphocyte countOrd ered By: Donovan Pierson on 09-09-2024 Lymphocytes Auto (Unsp spec) [#/Vol] 1.11 10*3/uL 0.83-4.51 [facility] Absolute neutrophil countOrd ered By: Donovan Pierson on 09-09-2024 Neutrophils (Bld) [#/Vol] 4.6 10*3/uL 2.0-7.7 [facility] Anion gap in Serum or Plasma Ordered By: Donovan Pierson on 09-09-2024 Anion gap [Moles/Vol] 8 mmol/L 5-15 [facility] Automated lymphocyte count a s percentage of total leukocytesOrdered By: Donovan Pierson on 09-09-2024 Lymphocytes/100 WBC Auto (Unsp spec) 17.2 % Low 19-41 [facility] BUN/creatinine ratioOrdered By: Donovan Pierson on 09-09-2024 Urea nitrogen/Creatinine [Mass ratio] 34.2 mg/mg High 10-20 [facility] Basic Metabolic Profile (BMP )on 09-09-2024 BUN/CRE 34.2 RATIO High - [facility] Comment on above: Performed By: #### L 503.7505, L500.2500 ####[facility] [address] [place], [address] Calcium [Mass/Vol] 10.4 mg/dL Normal 7.6-11.0 [facility] Comment on above: Performed By: #### L 503.7505, L500.2500 ####[facility] [address] [place], [address] Chloride [Moles/Vol] 103 mmol/L Normal 98-[address] [facility] Comment on above: Performed By: #### L 503.7505, L500.2500 ####[facility] [address] [place], [address] CO2 [Moles/Vol] 27.5 mmol/L Normal 21.0-32.0 [facility] Comment on above: Performed By: #### L 503.7505, L500.2500 ####[facility] [address] [place], [address] Creatinine [Mass/Vol] 0.55 mg/dL Low 0.70-1.20 [facility] Comment on above: Performed By: #### L 503.7505, L500.2500 ####[facility] [address] [place], [address] ECRCL 58.92 ml/min Normal 50-250 [facility] Comment on above: Performed By: #### L 503.7505, L500.2500 ####[facility] [address] [place], [address] GAP 8 Normal 5-15 [facility] Comment on above: Performed By: #### L 503.7505, L500.2500 ####[facility] [address] [place], [address] GFR/1.73 sq M.predicted among non-blacks MDRD (S/P/Bld) [Vol rate/Area] 92 mL/min/{1.73_m2} Normal >60 [facility] Comment on above: Result Comment: mL/m in/1.73m2 CKD-EPI Creatinine Equation (2020) Performed By: #### L 503.7505, L500.2500 ####[facility] [address] [place], [address] Glucose [Mass/Vol] 120 mg/dL High 70-99 [facility] Comment on above: Performed By: #### L 503.7505, L500.2500 ####[facility] [address] [place], [address] Potassium [Moles/Vol] 4.6 mmol/L Normal 3.3-5.1 [facility] Comment on above: Performed By: #### L 503.7505, L500.2500 ####[facility] [address] [place], [address] Sodium [Moles/Vol] 139 mmol/L Normal 133-145 [facility] Comment on above: Performed By: #### L 503.7505, L500.2500 ####[facility] [address] [place], [address] Urea nitrogen [Mass/Vol] 19 mg/dL Normal 4-19 [facility] Comment on above: Performed By: #### L 503.7505, L500.2500 ####[facility] [address] [place], [address] Basophil percentageOrdered B y: Donovan Pierson on 09-09-2024 Basophils/100 WBC (Bld) 0.5 % 0-1 [facility] CBC W/Diff, Automatedon 08-30 Absolute Lymph 1.11 X10 3/uL Normal 0.83-4.51 [facility] Comment on above: Performed By: #### L 100.0100, L501.4021 ####[facility] [address] [place], [address] Absolute Neut 4.6 X10 3/uL Normal 2.0-7.7 [facility] Comment on above: Performed By: #### L 100.0100, L501.4021 ####[facility] [address] [place], [address] Basophils/100 WBC (Bld) 0.5 % Normal 0-1 [facility] Comment on above: Performed By: #### L 100.0100, L501.4021 ####[facility] [address] [place], [address] Eosinophils/100 WBC (Bld) 1.2 % Normal 0-5 [facility] Comment on above: Performed By: #### L 100.0100, L501.4021 ####[facility] [address] [place], [address] Erythrocyte distribution width (RBC) [Ratio] 12.5 % Normal 11.6-14.6 [facility] Comment on above: Performed By: #### L 100.0100, L501.4021 ####[facility] [address] [place], [address] Hematocrit (Bld) [Volume fraction] 41.4 % Normal 37-47 [facility] Comment on above: Performed By: #### L 100.0100, L501.4021 ####[facility] [address] [place], [address] Hemoglobin (Bld) [Mass/Vol] 13.7 g/dL Normal 12.0-15.0 [facility] Comment on above: Performed By: #### L 100.0100, L501.4021 ####[facility] [address] [place], [address] IG% 0.600 Normal 0.0-0.9 [facility] Comment on above: Result Comment: IG% - Immature Granulocytes (promyelocytes, myelocytes andmetamyelocytes) > 1% indicates that a LEFT SHIFT is Present. Performed By: #### L 100.0100, L501.4021 ####[facility] [address] [place], [address] Lymphocytes/100 WBC (Bld) 17.2 % Low 19-41 [facility] Comment on above: Performed By: #### L 100.0100, L501.4021 ####[facility] [address] [place], [address] MCH (RBC) [Entitic mass] 30.4 pg Normal 27.0-32.0 [facility] Comment on above: Performed By: #### L 100.0100, L501.4021 ####[facility] [address] [place], [address] MCHC (RBC) [Mass/Vol] 33.1 g/dL Normal 32-36 [facility] Comment on above: Performed By: #### L 100.0100, L501.4021 ####[facility] [address] [place], [address] MCV (RBC) [Entitic vol] 92.0 fL Normal 81-99 [facility] Comment on above: Performed By: #### L 100.0100, L501.4021 ####[facility] [address] [place], [address] Monocytes/100 WBC (Bld) 10.2 % High 0-10 [facility] Comment on above: Performed By: #### L 100.0100, L501.4021 ####[facility] [address] [place], [address] Neutrophils/100 WBC (Bld) 70.3 % High 47-70 [facility] Comment on above: Performed By: #### L 100.0100, L501.4021 ####[facility] [address] [place], [address] Nucleated RBC (Bld) [#/Vol] 0 10*3/uL Normal 0-5 [facility] Comment on above: Performed By: #### L 100.0100, L501.4021 ####[facility] [address] [place], [address] Platelet mean volume (Bld) [Entitic vol] 9.8 fL Normal 6.2-12.0 [facility] Comment on above: Performed By: #### L 100.0100, L501.4021 ####[facility] [address] [place], [address] Platelets (Bld) [#/Vol] 228 10*3/uL Normal 150-450 [facility] Comment on above: Performed By: #### L 100.0100, L501.4021 ####[facility] [address] [place], [address] RBC (Bld) [#/Vol] 4.50 10*6/uL Normal 4.2-5.4 [facility] Comment on above: Performed By: #### L 100.0100, L501.4021 ####[facility] [address] [place], [address] RDW SD 42.3 fl Normal 35.1-43.9 [facility] Comment on above: Performed By: #### L 100.0100, L501.4021 ####[facility] [address] [place], [place], [address] WBC (Bld) [#/Vol] 6.5 10*3/uL Normal 4.4-11.0 [facility] Comment on above: Performed By: #### L 100.0100, L501.4021 ####[facility] [address] [facility] [address] [place], [place], [id number] Carbon dioxide, total [Moles /volume] in Central venous bloodOrdered By: oDnovan Pierson on 09-09-2024 CO2 [Moles/Vol] 27.5 mmol/L 21.0-32.0 [facility] Chest 1 View (Portable)on Chest 1 View (Portable) Normal [facility] Chloride assayOrdered By: Joe Pierson on 09-09-2024 Chloride [Moles/Vol] 103 mmol/L 98-[address] [facility] Emergency Department Summary on 09-09-2024 Emergency Department Summary Normal [facility] Eosinophil percentageOrdered By: Donovan Pierson on 09-09-2024 Eosinophils/100 WBC (Bld) 1.2 % 0-5 [facility] Erythrocyte distribution wid th ratioOrdered By: Donovan Pierson on 09-09-2024 Erythrocyte distribution width (RBC) [Ratio] 12.5 % 11.6-14.6 [facility] Erythrocyte distribution wid th standard deviationOrdered By: Donovan Pierson on 09-09-2024 Erythrocyte distribution width (RBC) [Ratio] 42.3 fl 35.1-43.9 [facility] Glomerular filtration rate ( GFR) estimation/1.73 sq m using serum, plasma, or whole bOrdered By: Donovan Pierson on 09-09-2024 GFR/1.73 sq M.predicted among non-blacks MDRD (S/P/Bld) [Vol rate/Area] 92 mL/min/{1.73_m2} >60 [facility] Comment on above: mL/min/1.73m2 CKD-EP I Creatinine Equation (2020) Hematocrit Auto (Bld) [Volum e fraction]Ordered By: Donovan Pierson on 09-09-2024 Hematocrit (Bld) [Volume fraction] 41.4 % 37-47 [facility] Hemoglobin measurementOrdere d By: Donovan Pierson on 09-09-2024 Hemoglobin (Bld) [Mass/Vol] 13.7 g/dL 12.0-15.0 [facility] Immature granulocytes/100 WB C Auto (Bld)Ordered By: Donovan Pierson on 09-09-2024 Immature granulocytes/100 WBC (Bld) 0.600 % 0.0-0.9 [facility] Comment on above: IG% - Immature Granu locytes (promyelocytes, myelocytes and metamyelocytes) > 1% indicates that a LEFT SHIFT is Present. L499.0042on 09-09-2024 Trop T High Sen 14 ng/L Normal <=14 [facility] Comment on above: Performed By: #### L 499.0042 ####[facility] [address] [place], [address] L501.4021on 09-09-2024 Trop T High Sen 14 ng/L Normal <=14 [facility] Comment on above: Performed By: #### L 100.0100, L501.4021 ####[facility] [address] [place], [place], [id number] L503.7505on 09-09-2024 Natriuretic peptide B (Bld) [Mass/Vol] 468 pg/mL Normal <=1800 [facility] Comment on above: Result Comment: Hear t Failure Unlikely: < 300 pg/mLHeart Failure Likely< 50 Years: > 450 pg/mL50-75 Years: > 900 pg/mL>75 Years: > 1800 pg/mL Performed By: #### L 503.7505, L500.2500 ####[facility] [address] [place], [place], [id number] MCV (mean corpuscular volume ) determinationOrdered By: Donovan Pierson on 09-09-2024 MCV (RBC) [Entitic vol] 92.0 fL 81-99 [facility] Mean corpuscular hemoglobin (MCH) determinationOrdered By: Donovan Pierson on 09-09-2024 MCH (RBC) [Entitic mass] 30.4 pg 27.0-32.0 [facility] Mean corpuscular hemoglobin concentration (MCHC) determinationOrdered By: Donovan Pierson on 09-09-2024 MCHC (RBC) [Mass/Vol] 33.1 g/dL 32-36 [facility] Mean platelet volume determi nationOrdered By: Donovan Pierson on 09-09-2024 Platelet mean volume (Bld) [Entitic vol] 9.8 fL 6.2-12.0 [facility] Monocyte percentageOrdered B y: Donovan Pierson on 09-09-2024 Monocytes/100 WBC (Bld) 10.2 % High 0-10 [facility] Natriuretic peptide.B prohor len N-Terminal [Mass/volume] in Serum or PlasmaOrdered By: Donovan Pierson on 09-09-2024 Natriuretic peptide.B prohormone N-Terminal [Mass/Vol] 468 pg/mL <1800 [facility] Comment on above: Heart Failure Unlike ly: < 300 pg/mLHeart Failure Likely< 50 Years: > 450 pg/mL50-75 Years: > 900 pg/mL>75 Years: > 1800 pg/mL Neutrophil percentageOrdered By: Donovan Pierson on 09-09-2024 Neutrophils/100 WBC (Bld) 70.3 % High 47-70 [facility] Nucleated red blood cell per centageOrdered By: Donovan Pierson on 09-09-2024 Nucleated RBC/100 WBC (Bld) [Ratio] 0 % 0-5 [facility] Platelet countOrdered By: Joe Pierson on 09-09-2024 Platelets (Bld) [#/Vol] 228 10*3/uL 150-450 [facility] Potassium measurement (mass/ volume)Ordered By: Donovan Pierson on 09-09-2024 Potassium (Unsp spec) [Mass/Vol] 4.6 mmol/L 3.3-5.1 [facility] RBC Auto (Bld) [#/Vol]Ordere d By: Donovan Pierson on 09-09-2024 RBC (Bld) [#/Vol] 4.50 10*6/uL 4.2-5.4 [facility] Serum creatinine measurement (mass/volume)Ordered By: Donovan Pierson on 09-09-2024 Creatinine [Mass/Vol] 0.55 mg/dL Low 0.70-1.20 [facility] Serum glucose measurement (m ass/volume)Ordered By: Donovan Pierson on 09-09-2024 Glucose [Mass/Vol] 120 mg/dL High 70-99 [facility] Serum or plasma calcium aaron urement (mass/volume)Ordered By: Donovan Pierson on 09-09-2024 Calcium [Mass/Vol] 10.4 mg/dL 7.6-11.0 [facility] Serum or plasma urea nitroge n measurement (mass/volume)Ordered By: Donovan Pierson on 09-09-2024 Urea nitrogen [Mass/Vol] 19 mg/dL 4-19 [facility] Sodium levelOrdered By: Donovan Pierson on 09-09-2024 Sodium [Moles/Vol] 139 mmol/L 133-145 [facility] Troponin T.cardiac [Mass/vol ume] in Serum or Plasma by High sensitivity methodOrdered By: Donovan Pierson on 09-09-2024 Troponin T.cardiac High sensitivity method [Mass/Vol] 14 ng/L <14 [facility] Troponin T.cardiac High sensitivity method [Mass/Vol] 14 ng/L Invalid Interpretation Code <14 [facility] Comment on above: Delta: 18 on 5-0350 White blood cell (WBC) count Ordered By: Donovan Pierson on 09-09-2024 WBC (Bld) [#/Vol] 6.5 10*3/uL 4.4-11.0 [facility] Cardiology Visit Reporton Cardiology Visit Report Normal [facility] Cardiology Visit Reporton Cardiology Visit Report Normal [facility] 12 Lead EKGon 08-02-2024 12 Lead EKG Normal [facility] Absolute lymphocyte countOrd ered By: Jaylen Jack on 08-02-2024 Lymphocytes Auto (Unsp spec) [#/Vol] 1.11 10*3/uL 0.83-4.51 [facility] Absolute neutrophil countOrd ered By: Jaylen Jack on 08-02-2024 Neutrophils (Bld) [#/Vol] 4.9 10*3/uL 2.0-7.7 [facility] Anion gap in Serum or Plasma Ordered By: Jaylen Jack on 08-02-2024 Anion gap [Moles/Vol] 10 mmol/L 5-15 [facility] Automated lymphocyte count a s percentage of total leukocytesOrdered By: Jaylen Jack on 08-02-2024 Lymphocytes/100 WBC Auto (Unsp spec) 16.3 % Low 19-41 [facility] BUN/creatinine ratioOrdered By: Jaylen Jack on 08-02-2024 Urea nitrogen/Creatinine [Mass ratio] 38.1 mg/mg High 10-20 [facility] Basophil percentageOrdered B y: Jaylen Jack on 08-02-2024 Basophils/100 WBC (Bld) 0.4 % 0-1 [facility] Bilirubin Test strip Ql (U)O rdered By: Jaylen Jack on 08-02-2024 Bilirubin Ql (U) Negative Negative [facility] Bilirubin, totalOrdered By: Jaylen Jack on 08-02-2024 Bilirubin [Mass/Vol] 0.61 mg/dL 0.00-1.[address] [facility] Brain/Head without Contrasto n 08-02-2024 Brain/Head without Contrast Normal [facility] CBC W/Diff, Automatedon Absolute Lymph 1.11 X10 3/uL Normal 0.83-4.51 [facility] Comment on above: Performed By: #### L 100.0100, L503.6005, L501.4021, L500.4050 ####[facility] [address] [place], [address] Absolute Neut 4.9 X10 3/uL Normal 2.0-7.7 [facility] Comment on above: Performed By: #### L 100.0100, L503.6005, L501.4021, L500.4050 ####[facility] [address] [place], [address] Basophils/100 WBC (Bld) 0.4 % Normal 0-1 [facility] Comment on above: Performed By: #### L 100.0100, L503.6005, L501.4021, L500.4050 ####[facility] [address] [place], [address] Eosinophils/100 WBC (Bld) 1.5 % Normal 0-5 [facility] Comment on above: Performed By: #### L 100.0100, L503.6005, L501.4021, L500.4050 ####[facility] [address] [place], [address] Erythrocyte distribution width (RBC) [Ratio] 12.6 % Normal 11.6-14.6 [facility] Comment on above: Performed By: #### L 100.0100, L503.6005, L501.4021, L500.4050 ####[facility] [address] [place], [address] Hematocrit (Bld) [Volume fraction] 42.2 % Normal 37-47 [facility] Comment on above: Performed By: #### L 100.0100, L503.6005, L501.4021, L500.4050 ####[facility] [address] [place], [address] Hemoglobin (Bld) [Mass/Vol] 13.8 g/dL Normal 12.0-15.0 [facility] Comment on above: Performed By: #### L 100.0100, L503.6005, L501.4021, L500.4050 ####[facility] [address] [place], [address] IG% 0.600 Normal 0.0-0.9 [facility] Comment on above: Result Comment: IG% - Immature Granulocytes (promyelocytes, myelocytes andmetamyelocytes) > 1% indicates that a LEFT SHIFT is Present. Performed By: #### L 100.0100, L503.6005, L501.4021, L500.4050 ####[facility] [address] [place], [address] Lymphocytes/100 WBC (Bld) 16.3 % Low 19-41 [facility] Comment on above: Performed By: #### L 100.0100, L503.6005, L501.4021, L500.4050 ####[facility] [address] [place], [address] MCH (RBC) [Entitic mass] 30.7 pg Normal 27.0-32.0 [facility] Comment on above: Performed By: #### L 100.0100, L503.6005, L501.4021, L500.4050 ####[facility] [address] [place], [address] MCHC (RBC) [Mass/Vol] 32.7 g/dL Normal 32-36 [facility] Comment on above: Performed By: #### L 100.0100, L503.6005, L501.4021, L500.4050 ####[facility] [address] [place], [address] MCV (RBC) [Entitic vol] 93.8 fL Normal 81-99 [facility] Comment on above: Performed By: #### L 100.0100, L503.6005, L501.4021, L500.4050 ####[facility] [address] [place], [address] Monocytes/100 WBC (Bld) 9.1 % Normal 0-10 [facility] Comment on above: Performed By: #### L 100.0100, L503.6005, L501.4021, L500.4050 ####[facility] [address] [place], [address] Neutrophils/100 WBC (Bld) 72.1 % High 47-70 [facility] Comment on above: Performed By: #### L 100.0100, L503.6005, L501.4021, L500.4050 ####[facility] [address] [place], [address] Nucleated RBC (Bld) [#/Vol] 0 10*3/uL Normal 0-5 [facility] Comment on above: Performed By: #### L 100.0100, L503.6005, L501.4021, L500.4050 ####[facility] [address] [place], [address] Platelet mean volume (Bld) [Entitic vol] 10.0 fL Normal 6.2-12.0 [facility] Comment on above: Performed By: #### L 100.0100, L503.6005, L501.4021, L500.4050 ####[facility] [address] [place], [address] Platelets (Bld) [#/Vol] 201 10*3/uL Normal 150-450 [facility] Comment on above: Performed By: #### L 100.0100, L503.6005, L501.4021, L500.4050 ####[facility] [address] [place], [address] RBC (Bld) [#/Vol] 4.50 10*6/uL Normal 4.2-5.4 [facility] Comment on above: Performed By: #### L 100.0100, L503.6005, L501.4021, L500.4050 ####[facility] [address] [place], [address] RDW SD 43.5 fl Normal 35.1-43.9 [facility] Comment on above: Performed By: #### L 100.0100, L503.6005, L501.4021, L500.4050 ####[facility] [address] [place], [address] WBC (Bld) [#/Vol] 6.8 10*3/uL Normal 4.4-11.0 [facility] Comment on above: Performed By: #### L 100.0100, L503.6005, L501.4021, L500.4050 ####[facility] [address] [place], [address] Carbon dioxide, total [Moles /volume] in Central venous bloodOrdered By: Jaylen Jack on 08-02-2024 CO2 [Moles/Vol] 26.4 mmol/L 21.0-32.0 [facility] Chest 1 View (Portable)on Chest 1 View (Portable) Normal [facility] Chloride assayOrdered By: Lincoln Jack on 08-02-2024 Chloride [Moles/Vol] 105 mmol/L 98-[address] [facility] Comprehensive Metabolic Prof ilon 08-02-2024 Albumin [Mass/Vol] 3.6 g/dL Normal 3.4-4.8 [facility] Comment on above: Performed By: #### L 100.0100, L503.6005, L501.4021, L500.4050 ####[facility] [address] [place], [address] Albumin/Globulin [Mass ratio] 1.2 {ratio} Normal 0.9-2.4 [facility] Comment on above: Performed By: #### L 100.0100, L503.6005, L501.4021, L500.4050 ####[facility] [address] [place], [address] ALK PHOS 107 U/L High 35-104 [facility] Comment on above: Performed By: #### L 100.0100, L503.6005, L501.4021, L500.4050 ####[facility] [address] [place], [address] ALT [Catalytic activity/Vol] 13 U/L Normal <=34 [facility] Comment on above: Performed By: #### L 100.0100, L503.6005, L501.4021, L500.4050 ####[facility] [address] [place], [address] AST [Catalytic activity/Vol] 17 U/L Normal <=31 [facility] Comment on above: Performed By: #### L 100.0100, L503.6005, L501.4021, L500.4050 ####[facility] [address] [place], [address] Bilirubin [Mass/Vol] 0.61 mg/dL Normal 0.00-1.[address] [facility] Comment on above: Performed By: #### L 100.0100, L503.6005, L501.4021, L500.4050 ####[facility] [address] [place], [address] BUN/CRE 38.1 RATIO High 10-20 [facility] Comment on above: Performed By: #### L 100.0100, L503.6005, L501.4021, L500.4050 ####[facility] [address] [place], [address] Calcium [Mass/Vol] 10.5 mg/dL Normal 7.6-11.0 [facility] Comment on above: Performed By: #### L 100.0100, L503.6005, L501.4021, L500.4050 ####[facility] [address] [place], [address] Chloride [Moles/Vol] 105 mmol/L Normal 98-[address] [facility] Comment on above: Performed By: #### L 100.0100, L503.6005, L501.4021, L500.4050 ####[facility] [address] [place], [address] CO2 [Moles/Vol] 26.4 mmol/L Normal 21.0-32.0 [facility] Comment on above: Performed By: #### L 100.0100, L503.6005, L501.4021, L500.4050 ####[facility] [address] [place], [address] Creatinine [Mass/Vol] 0.60 mg/dL Low 0.70-1.20 [facility] Comment on above: Performed By: #### L 100.0100, L503.6005, L501.4021, L500.4050 ####[facility] [address] [place], [address] ECRCL 58.03 ml/min Normal 50-250 [facility] Comment on above: Performed By: #### L 100.0100, L503.6005, L501.4021, L500.4050 ####[facility] [address] [place], [address] GAP 10 Normal 5-15 [facility] Comment on above: Performed By: #### L 100.0100, L503.6005, L501.4021, L500.4050 ####[facility] [address] [place], [address] GFR/1.73 sq M.predicted among non-blacks MDRD (S/P/Bld) [Vol rate/Area] 91 mL/min/{1.73_m2} Normal >60 [facility] Comment on above: Result Comment: mL/m in/1.73m2 CKD-EPI Creatinine Equation (2020) Performed By: #### L 100.0100, L503.6005, L501.4021, L500.4050 ####[facility] [address] [place], [address] Globulin (S) [Mass/Vol] 2.9 g/dL Normal 2.2-4.2 [facility] Comment on above: Performed By: #### L 100.0100, L503.6005, L501.4021, L500.4050 ####[facility] [address] [place], [address] Glucose [Mass/Vol] 117 mg/dL High 70-99 [facility] Comment on above: Performed By: #### L 100.0100, L503.6005, L501.4021, L500.4050 ####[facility] [address] [place], [address] Potassium [Moles/Vol] 3.8 mmol/L Normal 3.3-5.1 [facility] Comment on above: Performed By: #### L 100.0100, L503.6005, L501.4021, L500.4050 ####[facility] [address] [place], [address] Sodium [Moles/Vol] 142 mmol/L Normal 133-145 [facility] Comment on above: Performed By: #### L 100.0100, L503.6005, L501.4021, L500.4050 ####[facility] [address] [place], [address] T PROT 6.5 g/dL Normal 5.9-8.4 [facility] Comment on above: Performed By: #### L 100.0100, L503.6005, L501.4021, L500.4050 ####[facility] [address] [place], [address] Urea nitrogen [Mass/Vol] 23 mg/dL High 4-19 [facility] Comment on above: Performed By: #### L 100.0100, L503.6005, L501.4021, L500.4050 ####[facility] [address] [place], [address] Emergency Department Summary on 08-02-2024 Emergency Department Summary Normal [facility] Eosinophil percentageOrdered By: Jaylen Jack on 08-02-2024 Eosinophils/100 WBC (Bld) 1.5 % 0-5 [facility] Erythrocyte distribution wid th ratioOrdered By: Jaylen Jack on 08-02-2024 Erythrocyte distribution width (RBC) [Ratio] 12.6 % 11.6-14.6 [facility] Erythrocyte distribution wid th standard deviationOrdered By: Jaylen Jack on 08-02-2024 Erythrocyte distribution width (RBC) [Ratio] 43.5 fl 35.1-43.9 [facility] Glomerular filtration rate ( GFR) estimation/1.73 sq m using serum, plasma, or whole bOrdered By: Jaylen Jack on 08-02-2024 GFR/1.73 sq M.predicted among non-blacks MDRD (S/P/Bld) [Vol rate/Area] 91 mL/min/{1.73_m2} >60 [facility] Comment on above: mL/min/1.73m2 CKD-EP I Creatinine Equation (2020) Hematocrit Auto (Bld) [Volum e fraction]Ordered By: Jaylen Jcak on 08-02-2024 Hematocrit (Bld) [Volume fraction] 42.2 % 37-47 [facility] Hemoglobin measurementOrdere d By: Jaylen Jack on 08-02-2024 Hemoglobin (Bld) [Mass/Vol] 13.8 g/dL 12.0-15.0 [facility] Immature granulocytes/100 WB C Auto (Bld)Ordered By: Jaylen Jack on 08-02-2024 Immature granulocytes/100 WBC (Bld) 0.600 % 0.0-0.9 [facility] Comment on above: IG% - Immature Granu locytes (promyelocytes, myelocytes and metamyelocytes) > 1% indicates that a LEFT SHIFT is Present. Ketones Test strip Ql (U)Ord ered By: Jaylen Jack on 08-02-2024 Ketones Ql (U) Negative Negative [facility] L501.4021on 08-02-2024 Trop T High Sen 18 ng/L High <=14 [facility] Comment on above: Performed By: #### L 100.0100, L503.6005, L501.4021, L500.4050 ####[facility] [address] [place], [address] Laboratory - Chemistry and C hemistry - challengeOrdered By: Jaylen Jack on 08-02-2024 AST [Catalytic activity/Vol] 17 U/L <32 [facility] Lactic acid measurementOrder ed By: Jaylen Jack on 08-02-2024 Lactate [Moles/Vol] 1.2 mmol/L Normal 0.0-2.0 [facility] Comment on above: Order Comment: Y Performed By: #### L 100.0100, L503.6005, L501.4021, L500.4050 ####[facility] [address] [place], [place], [id number] MCV (mean corpuscular volume ) determinationOrdered By: Jaylen Jack on 08-02-2024 MCV (RBC) [Entitic vol] 93.8 fL 81-99 [facility] Mean corpuscular hemoglobin (MCH) determinationOrdered By: Jaylen Jack on 08-02-2024 MCH (RBC) [Entitic mass] 30.7 pg 27.0-32.0 [facility] Mean corpuscular hemoglobin concentration (MCHC) determinationOrdered By: Jaylen Jack on 08-02-2024 MCHC (RBC) [Mass/Vol] 32.7 g/dL 32-36 [facility] Mean platelet volume determi nationOrdered By: Jaylen Jack on 08-02-2024 Platelet mean volume (Bld) [Entitic vol] 10.0 fL 6.2-12.0 [facility] Microscopic analysis of urin e for red blood cells (RBC)Ordered By: Jaylen Jack on 08-02-2024 Microscopic analysis of urine for red blood cells (RBC) 0 SEEN /hpf 0-5 [facility] Monocyte percentageOrdered B y: Jaylen Jack on 08-02-2024 Monocytes/100 WBC (Bld) 9.1 % 0-10 [facility] Mucus LM Ql (Urine sed)Order ed By: Jaylen Jack on 08-02-2024 Mucus Ql (Urine sed) 0 SEEN /hpf [facility] Neutrophil percentageOrdered By: Jaylen Jack on 08-02-2024 Neutrophils/100 WBC (Bld) 72.1 % High 47-70 [facility] Nitrite Test strip Ql (U)Ord ered By: Jaylen Jack on 08-02-2024 Nitrite Ql (U) Negative Negative [facility] No Panel InformationOrdered By: Jaylen Jack on 08-02-2024 17 U/L <32 [facility] Nucleated red blood cell per centageOrdered By: Jaylen Jack on 08-02-2024 Nucleated RBC/100 WBC (Bld) [Ratio] 0 % 0-5 [facility] Platelet countOrdered By: Lincoln Jack on 08-02-2024 Platelets (Bld) [#/Vol] 201 10*3/uL 150-450 [facility] Potassium measurement (mass/ volume)Ordered By: Jaylen Jack on 08-02-2024 Potassium (Unsp spec) [Mass/Vol] 3.8 mmol/L 3.3-5.1 [facility] Protein Test strip Ql (U)Ord ered By: Jaylen Jack on 08-02-2024 Protein Ql (U) 30 mg/dl High Negative [facility] RBC Auto (Bld) [#/Vol]Ordere d By: Jaylen Jack on 08-02-2024 RBC (Bld) [#/Vol] 4.50 10*6/uL 4.2-5.4 [facility] Serum creatinine measurement (mass/volume)Ordered By: Jaylen Jack on 08-02-2024 Creatinine [Mass/Vol] 0.60 mg/dL Low 0.70-1.20 [facility] Serum globulin measurementOr dered By: Jaylen Jack on 08-02-2024 Globulin (S) [Mass/Vol] 2.9 g/dL 2.2-4.2 [facility] Serum glucose measurement (m ass/volume)Ordered By: Jaylen Jack on 08-02-2024 Glucose [Mass/Vol] 117 mg/dL High 70-99 [facility] Serum or plasma alanine rajput otransferase (ALT) measurementOrdered By: Jaylen Jack on 08-02-2024 ALT [Catalytic activity/Vol] 13 U/L <35 [facility] Serum or plasma albumin aaron urement (mass/volume)Ordered By: Jaylen Jack on 08-02-2024 Albumin [Mass/Vol] 3.6 g/dL 3.4-4.8 [facility] Serum or plasma albumin/glob ulin mass ratioOrdered By: Jaylen Jack on 08-02-2024 Albumin/Globulin [Mass ratio] 1.2 {ratio} 0.9-2.4 [facility] Serum or plasma alkaline bernardo sphatase measurementOrdered By: Jaylen Jack on 08-02-2024 ALP [Catalytic activity/Vol] 107 U/L High 35-104 [facility] Serum or plasma calcium aaron urement (mass/volume)Ordered By: Jaylen Jack on 08-02-2024 Calcium [Mass/Vol] 10.5 mg/dL 7.6-11.0 [facility] Serum or plasma urea nitroge n measurement (mass/volume)Ordered By: Jaylen Jack on 08-02-2024 Urea nitrogen [Mass/Vol] 23 mg/dL High 4-19 [facility] Sodium levelOrdered By: Ramos Jack on 08-02-2024 Sodium [Moles/Vol] 142 mmol/L 133-145 [facility] Squamous epithelial cells de tection in urine sediment by light microscopyOrdered By: Jaylen Jack on 08-02-2024 Epithelial cells.squamous LM Ql (Urine sed) 0-5 SEEN /hpf 5-10 [facility] Total proteinOrdered By: Olesya Jack on 08-02-2024 Protein [Mass/Vol] 6.5 g/dL 5.9-8.4 [facility] Troponin T.cardiac [Mass/vol ume] in Serum or Plasma by High sensitivity methodOrdered By: Jaylen Jack on 08-02-2024 Troponin T.cardiac High sensitivity method [Mass/Vol] 18 ng/L High <14 [facility] Urinalysis, Completeon 08-02 BACTERIA RARE Normal None Seen [facility] Comment on above: Order Comment: MAYA CTOR TO SPECIFY Performed By: #### L 400.0001 ####[facility] [address] [place], [address] EPI,SQUAMOUS 0-5 SEEN Normal 5-10 [facility] Comment on above: Order Comment: MAYA CTOR TO SPECIFY Performed By: #### L 400.0001 ####[facility] [address] [place], [address] WBC 0-5 SEEN Normal 0-5 [facility] Comment on above: Order Comment: MAYA CTOR TO SPECIFY Performed By: #### L 400.0001 ####[facility] [address] [place], [address] Mucus Ql (Urine sed) 0 SEEN Normal [facility] Comment on above: Order Comment: MAYA CTOR TO SPECIFY Performed By: #### L 400.0001 ####[facility] [address] [place], [address] RBC 0 SEEN Normal 0-5 [facility] Comment on above: Order Comment: MAYA CTOR TO SPECIFY Performed By: #### L 400.0001 ####[facility] [address] [place], [address] Urine clarityOrdered By: Olesya Jack on 08-02-2024 Clarity (U) Sl. Cloudy Clear [facility] Urine color determinationOrd ered By: Jaylen Jack on 08-02-2024 Color (U) Yellow Yellow [facility] Urine glucose detectionOrder ed By: Jaylen Jack on 08-02-2024 Glucose Ql (U) Normal mg/dl Normal [facility] Urine leukocyte esterase det ection by dipstickOrdered By: Jaylen Jack on 08-02-2024 Leukocyte esterase Test strip Ql (U) Negative Negative [facility] Urine pHOrdered By: Jaylen carroll on 08-02-2024 pH (U) 6.0 [pH] 5.0 - 8.0 [facility] Urine sediment bacteria coun t by microscopy (number/high power field)Ordered By: Jaylen Jack on 08-02-2024 Bacteria LM.HPF (Urine sed) [#/Area] RARE /hpf None Seen [facility] Urine specific gravity measu rementOrdered By: Jaylen Jack on 08-02-2024 Specific gravity (U) [Rel density] 1.020 1.002-1.030 [facility] Urine urobilinogen measureme ntOrdered By: Jaylen Jack on 08-02-2024 Urobilinogen Ql (U) Normal mg/dl Normal [facility] White blood cell (WBC) count Ordered By: Jaylen Jack on 08-02-2024 WBC (Bld) [#/Vol] 6.8 10*3/uL 4.4-11.0 [facility] White blood cell countOrdere d By: Jaylen Jack on 08-02-2024 White blood cell count 0-5 SEEN /hpf 0-5 [facility] Absolute lymphocyte countOrd ered By: Jennifer Meléndez on 06-18-2024 Lymphocytes Auto (Unsp spec) [#/Vol] 1.33 10*3/uL 0.83-4.51 [facility] Absolute neutrophil countOrd ered By: Jennifer Meléndez on 06-18-2024 Neutrophils (Bld) [#/Vol] 5.2 10*3/uL 2.0-7.7 [facility] Anion gap in Serum or Plasma Ordered By: Jennifer Meléndez on 06-18-2024 Anion gap [Moles/Vol] 9 mmol/L 5-15 [facility] Automated lymphocyte count a s percentage of total leukocytesOrdered By: Jennifer Meléndez on 06-18-2024 Lymphocytes/100 WBC Auto (Unsp spec) 18.1 % Low 19- [facility] BUN/creatinine ratioOrdered By: Jennifer Meléndez on 06-18-2024 Urea nitrogen/Creatinine [Mass ratio] 38.3 mg/mg High 10-20 [facility] Basic Metabolic Profile (BMP )on 06-18-2024 BUN/CRE 38.3 RATIO High - [facility] Comment on above: Performed By: #### L 100.0100, L500.2500 ####[facility] [address] [place], [address] Calcium [Mass/Vol] 10.4 mg/dL Normal 7.6-11.0 [facility] Comment on above: Performed By: #### L 100.0100, L500.2500 ####[facility] [address] [place], [address] Chloride [Moles/Vol] 102 mmol/L Normal 98-[address] [facility] Comment on above: Performed By: #### L 100.0100, L500.2500 ####[facility] [address] [place], [address] CO2 [Moles/Vol] 27.6 mmol/L Normal 21.0-32.0 [facility] Comment on above: Performed By: #### L 100.0100, L500.2500 ####[facility] [address] [place], [address] Creatinine [Mass/Vol] 0.70 mg/dL Normal 0.70-1.20 [facility] Comment on above: Performed By: #### L 100.0100, L500.2500 ####[facility] [address] [place], [address] ECRCL 59.54 ml/min Normal 50-250 [facility] Comment on above: Performed By: #### L 100.0100, L500.2500 ####[facility] [address] [place], [address] GAP 9 Normal 5-15 [facility] Comment on above: Performed By: #### L 100.0100, L500.2500 ####[facility] [address] [place], [address] GFR/1.73 sq M.predicted among non-blacks MDRD (S/P/Bld) [Vol rate/Area] 88 mL/min/{1.73_m2} Normal >60 [facility] Comment on above: Result Comment: mL/m in/1.73m2 CKD-EPI Creatinine Equation (2020) Performed By: #### L 100.0100, L500.2500 ####[facility] [address] [place], [address] Glucose [Mass/Vol] 114 mg/dL High 70-99 [facility] Comment on above: Performed By: #### L 100.0100, L500.2500 ####[facility] [address] [place], [address] Potassium [Moles/Vol] 4.5 mmol/L Normal 3.3-5.1 [facility] Comment on above: Performed By: #### L 100.0100, L500.2500 ####[facility] [address] [place], [address] Sodium [Moles/Vol] 139 mmol/L Normal 133-145 [facility] Comment on above: Performed By: #### L 100.0100, L500.2500 ####[facility] [address] [place], [address] Urea nitrogen [Mass/Vol] 27 mg/dL High -19 [facility] Comment on above: Performed By: #### L 100.0100, L500.2500 ####[facility] [address] [place], [address] Basophil percentageOrdered B y: Jennifer Meléndez on 06-18-2024 Basophils/100 WBC (Bld) 0.3 % 0-1 [facility] CBC W/Diff, Automatedon 05-31 Absolute Lymph 1.33 X10 3/uL Normal 0.83-4.51 [facility] Comment on above: Performed By: #### L 100.0100, L500.2500 ####[facility] [address] [place], [address] Absolute Neut 5.2 X10 3/uL Normal 2.0-7.7 [facility] Comment on above: Performed By: #### L 100.0100, L500.2500 ####[facility] [address] [place], [address] Basophils/100 WBC (Bld) 0.3 % Normal 0-1 [facility] Comment on above: Performed By: #### L 100.0100, L500.2500 ####[facility] [address] [place], [address] Eosinophils/100 WBC (Bld) 1.0 % Normal 0-5 [facility] Comment on above: Performed By: #### L 100.0100, L500.2500 ####[facility] [address] [place], [address] Erythrocyte distribution width (RBC) [Ratio] 12.6 % Normal 11.6-14.6 [facility] Comment on above: Performed By: #### L 100.0100, L500.2500 ####[facility] [address] [place], [address] Hematocrit (Bld) [Volume fraction] 42.3 % Normal 37-47 [facility] Comment on above: Performed By: #### L 100.0100, L500.2500 ####[facility] [address] [place], [address] Hemoglobin (Bld) [Mass/Vol] 14.1 g/dL Normal 12.0-15.0 [facility] Comment on above: Performed By: #### L 100.0100, L500.2500 ####[facility] [address] [place], [address] IG% 0.400 Normal 0.0-0.9 [facility] Comment on above: Result Comment: IG% - Immature Granulocytes (promyelocytes, myelocytes andmetamyelocytes) > 1% indicates that a LEFT SHIFT is Present. Performed By: #### L 100.0100, L500.2500 ####[facility] [address] [place], [address] Lymphocytes/100 WBC (Bld) 18.1 % Low 19-41 [facility] Comment on above: Performed By: #### L 100.0100, L500.2500 ####[facility] [address] [place], [address] MCH (RBC) [Entitic mass] 30.4 pg Normal 27.0-32.0 [facility] Comment on above: Performed By: #### L 100.0100, L500.2500 ####[facility] [address] [place], [address] MCHC (RBC) [Mass/Vol] 33.3 g/dL Normal 32-36 [facility] Comment on above: Performed By: #### L 100.0100, L500.2500 ####[facility] [address] [place], [address] MCV (RBC) [Entitic vol] 91.2 fL Normal 81-99 [facility] Comment on above: Performed By: #### L 100.0100, L500.2500 ####[facility] [address] [place], [address] Monocytes/100 WBC (Bld) 9.1 % Normal 0-10 [facility] Comment on above: Performed By: #### L 100.0100, L500.2500 ####[facility] [address] [place], [address] Neutrophils/100 WBC (Bld) 71.1 % High 47-70 [facility] Comment on above: Performed By: #### L 100.0100, L500.2500 ####[facility] [address] [place], [address] Nucleated RBC (Bld) [#/Vol] 0 10*3/uL Normal 0-5 [facility] Comment on above: Performed By: #### L 100.0100, L500.2500 ####[facility] [address] [place], [address] Platelet mean volume (Bld) [Entitic vol] 9.3 fL Normal 6.2-12.0 [facility] Comment on above: Performed By: #### L 100.0100, L500.2500 ####[facility] [address] [place], [address] Platelets (Bld) [#/Vol] 222 10*3/uL Normal 150-450 [facility] Comment on above: Performed By: #### L 100.0100, L500.2500 ####[facility] [address] [place], [address] RBC (Bld) [#/Vol] 4.64 10*6/uL Normal 4.2-5.4 [facility] Comment on above: Performed By: #### L 100.0100, L500.2500 ####[facility] [address] [place], [address] RDW SD 41.5 fl Normal 35.1-43.9 [facility] Comment on above: Performed By: #### L 100.0100, L500.2500 ####[facility] [address] [place], [address] WBC (Bld) [#/Vol] 7.3 10*3/uL Normal 4.4-11.0 [facility] Comment on above: Performed By: #### L 100.0100, L500.2500 ####[facility] [address] [place], [address] Carbon dioxide, total [Moles /volume] in Central venous bloodOrdered By: Jennifer Meléndez on 06-18-2024 CO2 [Moles/Vol] 27.6 mmol/L 21.0-32.0 [facility] Chloride assayOrdered By: Myriam Meléndez on 06-18-2024 Chloride [Moles/Vol] 102 mmol/L 98-[address] [facility] Emergency Department Summary on 06-18-2024 Emergency Department Summary Normal [facility] Eosinophil percentageOrdered By: Jennifer Meléndez on 06-18-2024 Eosinophils/100 WBC (Bld) 1.0 % 0-5 [facility] Erythrocyte distribution wid th (RBC) [Ratio]Ordered By: Jnenifer Meléndez on 06-18-2024 Erythrocyte distribution width (RBC) [Entitic vol] 41.5 fL 35.1-43.9 [facility] Erythrocyte distribution wid th ratioOrdered By: Jennifer Meléndez on 06-18-2024 Erythrocyte distribution width (RBC) [Ratio] 12.6 % 11.6-14.6 [facility] Erythrocyte distribution wid th standard deviationOrdered By: Jennifer Meléndez on 06-18-2024 Erythrocyte distribution width (RBC) [Ratio] 41.5 fl 35.1-43.9 [facility] Estimation of creatinine renea aranceOrdered By: Jennifer Meléndez on 06-18-2024 Estimated Creatinine Clearance Calc 59.54 ml/min 50-250 [facility] GFR/1.73 sq M.predicted bronson g non-blacks MDRD (S/P/Bld) [Vol rate/Area]Ordered By: Jennifer Meléndez on 06-18-2024 Estimated GFR (MDRD) Non-Af Amer 88 >60 [facility] Comment on above: mL/min/1.73m2 CKD-EP I Creatinine Equation (2020) Glomerular filtration rate ( GFR) estimation/1.73 sq m using serum, plasma, or whole bOrdered By: Jennifer Meléndez on 06-18-2024 GFR/1.73 sq M.predicted among non-blacks MDRD (S/P/Bld) [Vol rate/Area] 88 mL/min/{1.73_m2} >60 [facility] Comment on above: mL/min/1.73m2 CKD-EP I Creatinine Equation (2020) Hematocrit Auto (Bld) [Volum e fraction]Ordered By: Jennifer Meléndez on 06-18-2024 Hematocrit (Bld) [Volume fraction] 42.3 % 37-47 [facility] Hemoglobin measurementOrdere d By: Jennifer Meléndez on 06-18-2024 Hemoglobin (Bld) [Mass/Vol] 14.1 g/dL 12.0-15.0 [facility] Immature granulocytes/100 WB C Auto (Bld)Ordered By: Jennifer Meléndez on 06-18-2024 Immature granulocytes/100 WBC (Bld) 0.400 % 0.0-0.9 [facility] Comment on above: IG% - Immature Granu locytes (promyelocytes, myelocytes and metamyelocytes) > 1% indicates that a LEFT SHIFT is Present. Lymphocytes Auto (Unsp spec) [#/Vol]Ordered By: Jennifer Meléndez on 06-18-2024 Lymphocytes (Bld) [#/Vol] 1.33 10*3/uL 0.83-4.51 [facility] Lymphocytes/100 WBC Auto (Un sp spec)Ordered By: Jennifer Meléndez on 06-18-2024 Lymphocytes/100 WBC (Bld) 18.1 % Low 19-41 [facility] MCV (mean corpuscular volume ) determinationOrdered By: Jennifer Meléndez on 06-18-2024 MCV (RBC) [Entitic vol] 91.2 fL 81-99 [facility] Mean corpuscular hemoglobin (MCH) determinationOrdered By: Jennifer Meléndez on 06-18-2024 MCH (RBC) [Entitic mass] 30.4 pg 27.0-32.0 [facility] Mean corpuscular hemoglobin concentration (MCHC) determinationOrdered By: Jennifer Meléndez on 06-18-2024 MCHC (RBC) [Mass/Vol] 33.3 g/dL 32-36 [facility] Mean platelet volume determi nationOrdered By: Jennifer Meléndez on 06-18-2024 Platelet mean volume (Bld) [Entitic vol] 9.3 fL 6.2-12.0 [facility] Monocyte percentageOrdered B y: Jennifer Meléndez on 06-18-2024 Monocytes/100 WBC (Bld) 9.1 % 0-10 [facility] Neutrophil percentageOrdered By: Jennifer Meléndez on 06-18-2024 Neutrophils/100 WBC (Bld) 71.1 % High 47-70 [facility] Nucleated red blood cell per centageOrdered By: Jennifer Meléndez on 06-18-2024 Nucleated RBC/100 WBC (Bld) [Ratio] 0 % 0-5 [facility] Platelet countOrdered By: Myriam Meléndez on 06-18-2024 Platelets (Bld) [#/Vol] 222 10*3/uL 150-450 [facility] Potassium (Unsp spec) [Mass/ Vol]Ordered By: Jennifer Meléndez on 06-18-2024 Potassium [Moles/Vol] 4.5 mmol/L 3.3-5.1 [facility] Potassium measurement (mass/ volume)Ordered By: Jennifer Meléndez on 06-18-2024 Potassium (Unsp spec) [Mass/Vol] 4.5 mmol/L 3.3-5.1 [facility] RBC Auto (Bld) [#/Vol]Ordere d By: Jennifer Meléndez on 06-18-2024 RBC (Bld) [#/Vol] 4.64 10*6/uL 4.2-5.4 [facility] Serum creatinine measurement (mass/volume)Ordered By: Jennifer Meléndez on 06-18-2024 Creatinine [Mass/Vol] 0.70 mg/dL 0.70-1.20 [facility] Serum glucose measurement (m ass/volume)Ordered By: Jennifer Meléndez on 06-18-2024 Glucose [Mass/Vol] 114 mg/dL High 70-99 [facility] Serum or plasma calcium aaron urement (mass/volume)Ordered By: Jennifer Meléndez on 06-18-2024 Calcium [Mass/Vol] 10.4 mg/dL 7.6-11.0 [facility] Serum or plasma urea nitroge n measurement (mass/volume)Ordered By: Jennifer Meléndez on 06-18-2024 Urea nitrogen [Mass/Vol] 27 mg/dL High 4-19 [facility] Sodium levelOrdered By: Jennifer Meléndez on 06-18-2024 Sodium [Moles/Vol] 139 mmol/L 133-145 [facility] White blood cell (WBC) count Ordered By: Jennifer Meléndez on 06-18-2024 WBC (Bld) [#/Vol] 7.3 10*3/uL 4.4-11.0 [facility] Culture, urineOrdered By: Russell Markham on 03-25-2023 Bacteria identified Cx Nom (U) Mixed Gram Pos & Gram Neg Org [facility] Basophil percentageOrdered B y: Ginger Grace on 02-02-2023 Bilirubin [Mass/Vol] 0.70 mg/dL 0.20-1.[address] [facility] Comment on above: For patients on eltr ombopag therapy, use of Dimension Onset TBIL is not recommended. Cholesterol [Mass/Vol] 96 mg/dL <200 [facility] Comment on above: <200 mg/dL Desirable 200-240 mg/dL Borderline >240 mg/dL High Risk Protein [Mass/Vol] 6.1 g/dL 6.4-8.2 [facility] Triglyceride [Mass/Vol] 127 mg/dL <199 [facility] Comment on above: The drugs N-Acetylcy steine and Metamizole may falsely depress this assay.Serum Triglycerides Reference Interval Normal <150 mg/dL Borderline high 150 - 199 mg/dL High 200 - 499 mg/dL Very High > or = 500 mg/dL Direct bilirubinOrdered By: Ginger Grace on 02-02-2023 Bilirubin.direct [Mass/Vol] 0.19 mg/dL 0.00-0.30 [facility] Laboratory - Chemistry and C hemistry - challengeOrdered By: Ginger Grace on 02-02-2023 ALP [Catalytic activity/Vol] 105 U/L 45-117 [facility] ALT [Catalytic activity/Vol] 18 U/L 13-56 [facility] Globulin (S) [Mass/Vol] 3.4 g/dL 2.2-4.2 [facility] Serum or plasma albumin aaron urement (mass/volume)Ordered By: Ginger Grace on 02-02-2023 Albumin [Mass/Vol] 2.7 g/dL 3.2-5.0 [facility] Serum or plasma cholesterol in HDL measurement (mass/volume)Ordered By: Ginger Grace on 02-02-2023 Cholesterol in HDL [Mass/Vol] 39 mg/dL >40 [facility] Comment on above: The drugs N-Acetylcy steine and Metamizole may falsely depress this assay. Reference Range HDL <40 mg/dL Low HDL Cholesterol HDL >or= 60 mg/dL High HDL Cholesterol Serum or plasma cholesterol in VLDL measurement (mass/volume)Ordered By: Ginger Grace on 02-02-2023 Cholesterol in VLDL [Mass/Vol] 25 mg/dL 5-40 [facility] Serum or plasma low density lipoprotein (LDL) cholesterol measurement (mass/volume)Ordered By: Ginger Grace on 02-02-2023 Cholesterol in LDL [Mass/Vol] 32 mg/dL 0-130 [facility] Thin prep Papanicolaou smear with manual screeningOrdered By: Ginger Grace on 02-02-2023 Thin prep Papanicolaou smear with manual screening 14 U/L 15-37 [facility] Basophil percentageon 2021 Chloride [Moles/Vol] 106 mmol/L 98-[address] [facility] Work Phone: Glucose [Mass/Vol] 102 mg/dL 74-106 [facility] Work Phone: Comment on above: Fasting Glucose resu lt from 100 to 125 mg/dL suggests IMPAIRED HOMEOSTASIS per A.D.A. criteria. Potassium [Moles/Vol] 4.0 mmol/L 3.5-5.1 [facility] Work Phone: Sodium [Moles/Vol] 141 mmol/L 136-145 [facility] Work Phone: Laboratory - Chemistry and C hemistry - challengeon 01-07-2022 CO2 [Moles/Vol] 28.0 mmol/L 21.0-32.0 [facility] Work Phone: Urea nitrogen/Creatinine [Mass ratio] 27.5 mg/mg 10-20 [facility] Work Phone: No Panel Informationon 01-07 Estimated GFR (MDRD) Amer 129 mL/min >60 [facility] Work Phone: Comment on above: GFR Calc Estimated GFR (MDRD) Non-Af Amer 107 mL/min >60 [facility] Work Phone: Comment on above: Non- GFR Calc Serum or plasma calcium aaron urement (mass/volume)on 01-07-2022 Calcium [Mass/Vol] 9.4 mg/dL 8.5-10.1 [facility] Work Phone: Serum or plasma creatinine m easurement (mass/volume)on 01-07-2022 Creatinine [Mass/Vol] 0.58 mg/dL 0.55-1.02 [facility] Work Phone: Comment on above: The validity of the calculated GFR & GFRAA in patients over 70 years has not been determined. Clinical correlation is essential. Serum or plasma urea nitroge n measurement (mass/volume)on 01-07-2022 Urea nitrogen [Mass/Vol] 16 mg/dL 7-18 [facility] Work Phone: Thin prep Papanicolaou smear with manual screeningon 01-07-2022 Thin prep Papanicolaou smear with manual screening 7 5-15 [facility] Work Phone: Basophil percentageon 2021 Bilirubin [Mass/Vol] 0.90 mg/dL 0.20-1.[address] [facility] Work Phone: Comment on above: For patients on eltr ombopag therapy, use of Dimension Onset TBIL is not recommended. Chloride [Moles/Vol] 107 mmol/L 98-[address] [facility] Work Phone: Cholesterol [Mass/Vol] 113 mg/dL <200 [facility] Work Phone: Comment on above: <200 mg/dL Desirable 200-240 mg/dL Borderline >240 mg/dL High Risk Glucose [Mass/Vol] 109 mg/dL 74-106 [facility] Work Phone: Comment on above: Fasting Glucose resu lt from 100 to 125 mg/dL suggests IMPAIRED HOMEOSTASIS per A.D.A. criteria. Potassium [Moles/Vol] 4.0 mmol/L 3.5-5.1 [facility] Work Phone: Protein [Mass/Vol] 6.6 g/dL 6.4-8.2 [facility] Work Phone: Sodium [Moles/Vol] 139 mmol/L 136-145 [facility] Work Phone: Triglyceride [Mass/Vol] 116 mg/dL <199 [facility] Work Phone: Comment on above: The drugs N-Acetylcy steine and Metamizole may falsely depress this assay.Serum Triglycerides Reference Interval Normal <150 mg/dL Borderline high 150 - 199 mg/dL High 200 - 499 mg/dL Very High > or = 500 mg/dL Direct bilirubinon 2 Bilirubin.direct [Mass/Vol] 0.27 mg/dL 0.00-0.30 [facility] Work Phone: Laboratory - Chemistry and C hemistry - challengeon 12-25-2021 ALP [Catalytic activity/Vol] 132 U/L 45-117 [facility] Work Phone: ALT [Catalytic activity/Vol] 15 U/L 13-56 [facility] Work Phone: CO2 [Moles/Vol] 30.0 mmol/L 21.0-32.0 [facility] Work Phone: Globulin (S) [Mass/Vol] 3.6 g/dL 2.2-4.2 [facility] Work Phone: Natriuretic peptide B (Bld) [Mass/Vol] 243.4 pg/mL 0-100 [facility] Work Phone: Urea nitrogen/Creatinine [Mass ratio] 22.1 mg/mg 10-20 [facility] Work Phone: No Panel Informationon 12-25 Estimated GFR (MDRD) Amer 139 mL/min >60 [facility] Work Phone: Comment on above: GFR Calc Estimated GFR (MDRD) Non-Af Amer 115 mL/min >60 [facility] Work Phone: Comment on above: Non- GFR Calc Serum or plasma albumin aaron urement (mass/volume)on 12-25-2021 Albumin [Mass/Vol] 3.0 g/dL 3.2-5.0 [facility] Work Phone: Serum or plasma calcium aaron urement (mass/volume)on 12-25-2021 Calcium [Mass/Vol] 10.0 mg/dL 8.5-10.1 [facility] Work Phone: Serum or plasma cholesterol in HDL measurement (mass/volume)on 12-25-2021 Cholesterol in HDL [Mass/Vol] 46 mg/dL >40 [facility] Work Phone: Comment on above: The drugs N-Acetylcy steine and Metamizole may falsely depress this assay. Reference Range HDL <40 mg/dL Low HDL Cholesterol HDL >or= 60 mg/dL High HDL Cholesterol Serum or plasma cholesterol in VLDL measurement (mass/volume)on 12-25-2021 Cholesterol in VLDL [Mass/Vol] 23 mg/dL 5-40 [facility] Work Phone: Serum or plasma creatinine m easurement (mass/volume)on 12-25-2021 Creatinine [Mass/Vol] 0.54 mg/dL 0.55-1.02 [facility] Work Phone: Comment on above: The validity of the calculated GFR & GFRAA in patients over 70 years has not been determined. Clinical correlation is essential. Serum or plasma low density lipoprotein (LDL) cholesterol measurement (mass/volume)on 12-25-2021 Cholesterol in LDL [Mass/Vol] 44 mg/dL 0-130 [facility] Work Phone: Serum or plasma urea nitroge n measurement (mass/volume)on 12-25-2021 Urea nitrogen [Mass/Vol] 12 mg/dL 7-18 [facility] Work Phone: Thin prep Papanicolaou smear with manual screeningon 12-25-2021 Thin prep Papanicolaou smear with manual screening 12 U/L 15-37 [facility] Work Phone: Thin prep Papanicolaou smear with manual screening 2 5-15 [facility] Work Phone: Absolute lymphocyte counton 10-12-2021 Lymphocytes Auto (Unsp spec) [#/Vol] 0.84 10*3/uL 0.83-4.51 [facility] Work Phone: Basophil percentageon 2021 Basophils/100 WBC (Bld) 0.1 % 0-1 [facility] Work Phone: Chloride [Moles/Vol] 107 mmol/L 98-[address] [facility] Work Phone: Eosinophils/100 WBC (Bld) 1.2 % 0-5 [facility] Work Phone: Glucose [Mass/Vol] 110 mg/dL 74-106 [facility] Work Phone: Comment on above: Fasting Glucose resu lt from 100 to 125 mg/dL suggests IMPAIRED HOMEOSTASIS per A.D.A. criteria. Neutrophils (Bld) [#/Vol] 5.2 10*3/uL 2.0-7.7 [facility] Work Phone: Neutrophils/100 WBC (Bld) 77.9 % 47-70 [facility] Work Phone: [phone] Potassium [Moles/Vol] 4.5 mmol/L 3.5-5.1 [facility] Work Phone: Comment on above: Slight Hemolysis, Re sult may be falsely increased. Sodium [Moles/Vol] 140 mmol/L 136-145 [facility] Work Phone: WBC (Bld) [#/Vol] 6.7 10*3/uL 4.4-11.0 [facility] Work Phone: [phone] Blood erythrocytes count (nu mber/volume)on 10-12-2021 RBC (Bld) [#/Vol] 4.54 10*6/uL 4.2-5.4 [facility] Work Phone: Blood hemoglobin measurement (mass/volume)on 10-12-2021 Hemoglobin (Bld) [Mass/Vol] 13.5 g/dL 12.0-15.0 [facility] Work Phone: Blood lymphocytes/100 leukoc yteson 10-12-2021 Lymphocytes/100 WBC (Bld) 12.5 % 19-41 [facility] Work Phone: Blood monocytes/100 leukocyt eson 10-12-2021 Monocytes/100 WBC (Bld) 7.9 % 0-10 [facility] Work Phone: Blood platelet mean volumeon 10-12-2021 Platelet mean volume (Bld) [Entitic vol] 9.5 fL 6.2-12.0 [facility] Work Phone: Determination of erythrocyte mean corpuscular volume (MCV)on 10-12-2021 MCV (RBC) [Entitic vol] 92.7 fL 81-99 [facility] Work Phone: Hematocrit Auto (Bld) [Volum e fraction]on 10-12-2021 Hematocrit (Bld) [Volume fraction] 42.1 % 37-47 [facility] Work Phone: Laboratory - Chemistry and C hemistry - challengeon 10-12-2021 CO2 [Moles/Vol] 33.0 mmol/L 21.0-32.0 [facility] Work Phone: Urea nitrogen/Creatinine [Mass ratio] 26.6 mg/mg 10-20 [facility] Work Phone: Laboratory - Hematology and Cell countson 10-12-2021 Erythrocyte distribution width (RBC) [Entitic vol] 42.5 fL 35.1-43.9 [facility] Work Phone: Erythrocyte distribution width (RBC) [Ratio] 12.6 % 11.6-14.6 [facility] Work Phone: Immature granulocytes/100 WBC (Bld) 0.400 % 0.0-0.9 [facility] Work Phone: Comment on above: IG% - Immature Granu locytes (promyelocytes, myelocytes and metamyelocytes) > 1% indicates that a LEFT SHIFT is Present. MCH (RBC) [Entitic mass] 29.7 pg 27.0-32.0 [facility] Work Phone: Nucleated RBC/100 WBC (Bld) [Ratio] 0 % 0-5 [facility] Work Phone: MCHC Auto (RBC) [Mass/Vol]on 10-12-2021 MCHC (RBC) [Mass/Vol] 32.1 g/dL 32-36 [facility] Work Phone: No Panel Informationon 10-12 Troponin I High Sensitivity 13 pg/mL 3.0-54.0 [facility] Work Phone: Comment on above: Please Note: New Vanessa t Units and Gender Specific Reference Ranges. For more information see Policy Stat Procedure Onset High Sensitivity Troponin (TNIH) and attachments. Estimated Creatinine Clearance Calc 73.85 ml/min [facility] Work Phone: Estimated GFR (MDRD) Amer 134 mL/min >60 [facility] Work Phone: Comment on above: GFR Calc Estimated GFR (MDRD) Non-Af Amer 111 mL/min >60 [facility] Work Phone: Comment on above: Non- GFR Calc Platelets bldon 10-12-2021 Platelets (Bld) [#/Vol] 209 10*3/uL 150-450 [facility] Work Phone: Serum or plasma calcium aaron urement (mass/volume)on 10-12-2021 Calcium [Mass/Vol] 10.1 mg/dL 8.5-10.1 [facility] Work Phone: Serum or plasma creatinine m easurement (mass/volume)on 10-12-2021 Creatinine [Mass/Vol] 0.56 mg/dL 0.55-1.02 [facility] Work Phone: Comment on above: The validity of the calculated GFR & GFRAA in patients over 70 years has not been determined. Clinical correlation is essential. Serum or plasma urea nitroge n measurement (mass/volume)on 10-12-2021 Urea nitrogen [Mass/Vol] 15 mg/dL 7-18 [facility] Work Phone: Thin prep Papanicolaou smear with manual screeningon 10-12-2021 Thin prep Papanicolaou smear with manual screening 0 5-15 [facility] Work Phone: Basophil percentageon 2021 Bilirubin [Mass/Vol] 0.60 mg/dL 0.20-1.[address] [facility] Work Phone: Comment on above: For patients on eltr ombopag therapy, use of Dimension Onset TBIL is not recommended. Cholesterol [Mass/Vol] 109 mg/dL <200 [facility] Work Phone: Comment on above: <200 mg/dL Desirable 200-240 mg/dL Borderline >240 mg/dL High Risk Protein [Mass/Vol] 6.3 g/dL 6.4-8.2 [facility] Work Phone: Triglyceride [Mass/Vol] 139 mg/dL [facility] Work Phone: Comment on above: The drugs N-Acetylcy steine and Metamizole may falsely depress this assay.Serum Triglycerides Reference Interval Normal <150 mg/dL Borderline high 150 - 199 mg/dL High 200 - 499 mg/dL Very High > or = 500 mg/dL Direct bilirubinon 2 Bilirubin.direct [Mass/Vol] 0.19 mg/dL 0.00-0.30 [facility] Work Phone: Laboratory - Chemistry and C hemistry - challengeon 05-30-2021 ALP [Catalytic activity/Vol] 101 U/L 45-117 [facility] Work Phone: ALT [Catalytic activity/Vol] 20 U/L 13-56 [facility] Work Phone: Globulin (S) [Mass/Vol] 3.2 g/dL 2.2-4.2 [facility] Work Phone: Serum or plasma albumin aaron urement (mass/volume)on 05-30-2021 Albumin [Mass/Vol] 3.1 g/dL 3.2-5.0 [facility] Work Phone: Serum or plasma cholesterol in HDL measurement (mass/volume)on 05-30-2021 Cholesterol in HDL [Mass/Vol] 41 mg/dL [facility] Work Phone: Comment on above: The drugs N-Acetylcy steine and Metamizole may falsely depress this assay. Reference Range HDL <40 mg/dL Low HDL Cholesterol HDL >or= 60 mg/dL High HDL Cholesterol Serum or plasma cholesterol in VLDL measurement (mass/volume)on 05-30-2021 Cholesterol in VLDL [Mass/Vol] 28 mg/dL 5-40 [facility] Work Phone: Serum or plasma low density lipoprotein (LDL) cholesterol measurement (mass/volume)on 05-30-2021 Cholesterol in LDL [Mass/Vol] 40 mg/dL 0-130 [facility] Work Phone: Thin prep Papanicolaou smear with manual screeningon 05-30-2021 Thin prep Papanicolaou smear with manual screening 13 U/L 15-37 [facility] Work Phone: Lab Report: Basic Metabolic Profile (BMP)on 10-28-2016 Anion gap 4 mmol/L Low 5-15 [facility] Work Phone: [phone] Anion gap molar conc 4 mmol/L Low 5-15 [facility] Work Phone: [phone] BUN/Creatinine Ratio 17.8 RATIO Invalid Interpretation Code 10-20 [facility] Work Phone: [phone] Calcium 9.8 mg/dL Invalid Interpretation Code 8.5-10.1 [facility] Work Phone: [phone] Chloride 107 mmol/L Invalid Interpretation Code 98-107 [facility] Work Phone: [phone] CO2 31.0 mmol/L Invalid Interpretation Code 21.0-32.0 [facility] Work Phone: [phone] CO2 ppres (BldV) 31.0 mmol/L 21.0-32.0 [facility] Work Phone: [phone] Creatinine 0.62 mg/dL Invalid Interpretation Code 0.55-1.02 [facility] Work Phone: [phone] eGFR (non-black) 122 mL/min/{1.73_m2} Invalid Interpretation Code >60 [facility] Work Phone: [phone] eGFR (non-black) 101 mL/min/{1.73_m2} Invalid Interpretation Code >60 [facility] Work Phone: [phone] GFR - AA 122 mL/min >60 [facility] Work Phone: [phone] Glucose 98 mg/dL Invalid Interpretation Code 70-110 [facility] Work Phone: [phone] Glucose mass conc 98 mg/dL 70-110 [facility] Work Phone: [phone] Potassium 4.4 mmol/L Invalid Interpretation Code 3.5-5.1 [facility] Work Phone: [phone] Sodium 142 mmol/L Invalid Interpretation Code 136-145 [facility] Work Phone: [phone] Urea nitrogen 11 mg/dL Invalid Interpretation Code 7-18 [facility] Work Phone: [phone] Office Visit: [facility] 08-27-19 17 Fall risk assessment No Invalid Interpretation Code [facility] Phone: [phone] Office Visiton 11-27-2015 Documentation of current medications (procedure) Done Invalid Interpretation Code [facility] Phone: [phone] Protein mass conc Done [facility] Work Phone: [phone] Clinical Lists Update: Prelo hash slinger 11-23-2015 Left ventricular Ejection fraction 55 % Invalid Interpretation Code [facility] Work Phone: [phone] Clinical Lists Update: Pre hash slinger 10-26-2015 Alanine aminotransferase (ALT) 17 U/L Invalid Interpretation Code [facility] Work Phone: [phone] Albumin 2.8 g/dL Low [facility] Work Phone: [phone] Alkaline phosphatase (ALP) 121 U/L Invalid Interpretation Code [facility] Work Phone: [phone] ALP enzyme act/vol (Bld) 121 U/L [facility] Work Phone: [phone] Anion gap 6 mmol/L Invalid Interpretation Code [facility] Work Phone: [phone] Anion gap molar conc 6 mmol/L [facility] Work Phone: [phone] Aspartate aminotransferase (AST) 13 U/L Low [facility] Work Phone: [phone] Bilirubin (total) 0.60 mg/dL Invalid Interpretation Code [facility] Work Phone: [phone] BUN/Creatinine Ratio 18.2 mg/mg Invalid Interpretation Code [facility] Work Phone: [phone] Calcium 9.1 mg/dL Invalid Interpretation Code [facility] Work Phone: [phone] Chloride 105 mmol/L Invalid Interpretation Code [facility] Work Phone: [phone] Cholesterol 91 mg/dL Invalid Interpretation Code [facility] Work Phone: [phone] CO2 27.0 mmol/L Invalid Interpretation Code [facility] Work Phone: [phone] CO2 ppres (BldV) 27.0 mmol/L [facility] Work Phone: [phone] Creatinine 0.55 mg/dL Invalid Interpretation Code [facility] Work Phone: [phone] Globulin 3.3 g/dL Invalid Interpretation Code [facility] Work Phone: [phone] Globulin mass conc (S) 3.3 g/dL [facility] Work Phone: [phone] Glucose 102 mg/dL Invalid Interpretation Code [facility] Work Phone: [phone] Glucose mass conc 102 mg/dL [facility] Work Phone: [phone] HDL Cholesterol 36 mg/dL Low [facility] Work Phone: [phone] LDL Cholesterol 32 mg/dL Invalid Interpretation Code [facility] Work Phone: [phone] Potassium 3.8 mmol/L Invalid Interpretation Code [facility] Work Phone: [phone] Protein 6.1 g/dL Low [facility] Work Phone: [phone] Sodium 138 mmol/L Invalid Interpretation Code [facility] Work Phone: [phone] Triglyceride 116 mg/dL Invalid Interpretation Code [facility] Work Phone: [phone] Urea nitrogen 10 mg/dL Invalid Interpretation Code [facility] Work Phone: [phone] very low density lipoproteins 23 mg/dL Invalid Interpretation Code [facility] Work Phone: [phone] Clinical Lists Update: Prelo hash slinger 10-25-2015 Erythrocyte distribution width Ratio (RBC) 14.3 % [facility] Work Phone: [phone] Erythrocytes (RBC) 4.74 10*6/uL Invalid Interpretation Code [facility] Work Phone: [phone] Hematocrit (HCT) 40.1 % Invalid Interpretation Code [facility] Work Phone: [phone] Hematocrit Volume Fraction (Bld) 40.1 % [facility] Work Phone: [phone] Hemoglobin (HGB) 12.5 g/dL Invalid Interpretation Code [facility] Work Phone: [phone] MCH 26.4 pg Low [facility] Work Phone: [phone] MCH Entitic mass (RBC) 26.4 pg Low [facility] Work Phone: [phone] MCHC 31.2 g/dL Low [facility] Work Phone: [phone] MCHC mass conc (RBC) 31.2 g/dL Low [facility] Work Phone: [phone] MCV 84.6 fL Invalid Interpretation Code [facility] Work Phone: [phone] MCV Entitic volume (RBC) 84.6 fL [facility] Work Phone: [phone] Platelet mean volume Entitic volume (Bld) 9.3 fL [facility] Work Phone: [phone] Platelets 212 10*3/mm3 Invalid Interpretation Code [facility] Work Phone: [phone] Platelets #/vol (Bld) 212 10*3/mm3 [facility] Work Phone: [phone] PMV by Gabe 9.3 fL Invalid Interpretation Code [facility] Work Phone: [phone] RBC #/vol (Bld) 4.74 10*6/uL [facility] Work Phone: [phone] RDW-CA 14.3 % Invalid Interpretation Code [facility] Work Phone: [phone] WBC #/vol (Bld) 6.4 10*3/uL [facility] Work Phone: [phone] WBC (Leukocytes) 6.4 10*3/uL Invalid Interpretation Code [facility] Work Phone: [phone] Lab Report: Liver Profileon 06-25-2015 Bilirubin (direct) 0.12 mg/dL Invalid Interpretation Code 0.00-0.30 [facility] Work Phone: [phone] Globulin 3.9 g/dL High 2.3-3.5 [facility] Work Phone: [phone] Globulin mass conc (S) 3.9 g/dL High 2.3-3.5 [facility] Work Phone: [phone] Office Visit: [facility] 03-28-19 16 Tobacco smoking status MIIS Never smoker [facility] Work Phone: [phone] Tobacco use [facility] Never smoker Invalid Interpretation Code [facility] Work Phone: [phone] Office Visit: [facility] 03-01-20 14 cardiac risk group C Invalid Interpretation Code [facility] Work Phone: [phone] General cardiovascular disease 10Y risk [#] [place] N/A Invalid Interpretation Code [facility] Work Phone: [phone] Tobacco smoking status MIIS Never Invalid Interpretation Code [facility] Work Phone: [phone] Replaced Document: [place] CG Observationson 03-01-2014 EKG QRS axis -32 deg [facility] Work Phone: [phone] electrocardiogram interpretation Sinus Rhythm -RSR(V1) -nondiagnostic. PROBABLY NORMAL Invalid Interpretation Code [facility] Work Phone: [phone] GE use only - for [employer] import when terms are not otherwise specified 406 ms Invalid Interpretation Code [facility] Work Phone: [phone] Interpretation Sinus Rhythm -RSR(V1 ) -nondiagnostic. PROBABLY NORMAL [facility] Work Phone: [phone] P [place] 60 deg [facility] Work Phone: [phone] P wave axis, electrocardiogram 60 deg Invalid Interpretation Code [facility] Work Phone: [phone] VA Interval 132 ms [facility] Work Phone: [phone] VA interval, electrocardiogram 132 ms Invalid Interpretation Code [facility] Work Phone: [phone] Pulse (Heart Rate) 73 /min Invalid Interpretation Code [facility] Work Phone: [phone] QRS axis, electrocardiogram -32 deg Invalid Interpretation Code [facility] Work Phone: [phone] QRS Duration 102 ms [facility] Work Phone: [phone] QRS duration, electrocardiogram 102 ms Invalid Interpretation Code [facility] Work Phone: [phone] QT Interval new path ms [facility] Work Phone: [phone] QT interval, electrocardiogram new path ms Invalid Interpretation Code [facility] Work Phone: [phone] QTc Lee 406 ms [facility] Work Phone: [phone] T [place] 10 deg [facility] Work Phone: [phone] T wave axis, electrocardiogram 10 deg Invalid Interpretation Code [facility] Work Phone: [phone] Lab Report: TROPon 2 Troponin I ng/mL Normal <0.06 [facility] Work Phone: [phone] Vital Signs Date Time Vital Sign Value Performing Clinician Faci lity 11-30-2024 16:11-0400 Body temperature 97.2 [degF] Dr. Lilly Fletcher MD Work Phone: [facility] 11-30-2024 16:11-0400 Diastolic blood pressure 84 mm[Hg] Dr. Lilly Fletcher MD Work Phone: [facility] 11-30-2024 16:11-0400 Heart rate 86 /min Dr. Lilly Fletcher MD Work Phone: [facility] 11-30-2024 16:11-0400 Inhaled oxygen flow rate 2 L/min Dr. Lilly Fletcher MD Work Phone: [facility] 11-30-2024 16:11-0400 Respiratory rate 18 /min Dr. Lilly Fletcher MD Work Phone: 5(262)165-765407 [place] [address] 11-30-2024 16:11-0400 SaO2% (BldA) [Mass fraction] 98 % Dr. Lilly Fletcher MD Work Phone: 8(215)390-091907 [place] [address] 11-30-2024 16:11-0400 Systolic blood pressure 113 mm[Hg] Dr. Lilly Fletcher MD Work Phone: 5(944)623-401607 [place] [address] 11-30-2024 08:19-0400 Body temperature 97.6 [degF] Dr. Lilly Fletcher MD Work Phone: 0(241)848-022707 [place] [address] 11-30-2024 08:19-0400 Diastolic blood pressure 58 mm[Hg] Dr. Lilly Fletcher MD Work Phone: 8(101)313-032507 [place] [address] 11-30-2024 08:19-0400 Heart rate 70 /min Dr. Lilly Fletcher MD Work Phone: 5(850)354-057707 [place] [address] 11-30-2024 08:19-0400 Inhaled oxygen flow rate 2 L/min Dr. Lilly Fletcher MD Work Phone: 1(981)212-298007 [place] [address] 11-30-2024 08:19-0400 Respiratory rate 15 /min Dr. Lilly Fletcher MD Work Phone: 5(554)944-225707 [place] [address] 11-30-2024 08:19-0400 SaO2% (BldA) [Mass fraction] 100 % Dr. Lilly Fletcher MD Work Phone: 1(735)637-763207 [place] [address] 11-30-2024 08:19-0400 Systolic blood pressure 132 mm[Hg] Dr. Lilly Fletcher MD Work Phone: 9(281)431-161807 [place] [address] 11-30-2024 05:16-0400 Body mass index (BMI) [Ratio] 41.8 kg/m2 Dr. Lilly Fletcher MD Work Phone: 9(331)318-532607 [place] [address] 11-30-2024 05:16-0400 Body weight 94.[address] Lilly Fletcher MD Work Phone: 6(526)389-120056 [place] [address] 11-26-2024 21:47-0400 Body height 149.[address] Lilly Fletcher MD Work Phone: 6(737)576-947307 [place] [address] 10-26-2024 14:55-0400 Body temperature 97.6 [degF] Dr. Lilly Fletcher MD Work Phone: 7(479)032-830507 [place] [address] 10-26-2024 14:55-0400 Diastolic blood pressure 78 mm[Hg] Dr. Lilly Fletcher MD Work Phone: 6(406)249-274207 [place] [address] 10-26-2024 14:55-0400 Heart rate 88 /min Dr. Lilly Fletcher MD Work Phone: 9(701)653-316907 [place] [address] 10-26-2024 14:55-0400 Respiratory rate 18 /min Dr. Lilly Fletcher MD Work Phone: 3(659)901-555507 [place] [address] 10-26-2024 14:55-0400 SaO2% (BldA) [Mass fraction] 95 % Dr. Lilly Fletcher MD Work Phone: 6(115)817-410407 [place] [address] 10-26-2024 14:55-0400 Systolic blood pressure 122 mm[Hg] Dr. Lilly Fletcher MD Work Phone: 9(232)508-584807 [place] [address] 10-26-2024 08:09-0400 Inhaled oxygen flow rate 2 L/min Dr. Lilly Fletcher MD Work Phone: 2(841)484-811356 [place] [address] 10-26-2024 04:21-0400 Body mass index (BMI) [Ratio] 36.9 kg/m2 Dr. Lilly Fletcher MD Work Phone: 2(035)036-430056 [place] [address] 10-26-2024 04:21-0400 Body weight [address] Lilly Fletcher MD Work Phone: 9(930)481-641707 [place] [address] 10-25-2024 17:43-0400 Body height 149.[address] Lilly Fletcher MD Work Phone: 0(576)934-831856 [place] [address] 10-25-2024 17:00-0400 Diastolic blood pressure 70 mm[Hg] Dr. Lilly Fletcher MD Work Phone: 8(919)528-381256 [place] [address] 10-25-2024 17:00-0400 Heart rate 65 /min Dr. Lilly Fletcher MD Work Phone: 7(545)776-325865 [address] 10-25-2024 17:00-0400 SaO2% (BldA) [Mass fraction] 100 % Dr. Lilly Fletcher MD Work Phone: 5(887)471-129656 [place] [address] 10-25-2024 17:00-0400 Systolic blood pressure 128 mm[Hg] Dr. Lilly Fletcher MD Work Phone: 0(883)656-809607 [place] [address] 10-25-2024 16:17-0400 Body temperature 98 [degF] Dr. Lilly Fletcher MD Work Phone: 9(919)511-113007 [place] [address] 10-25-2024 16:17-0400 Respiratory rate 18 /min Dr. Lilly Fletcher MD Work Phone: 6(819)357-543165 [address] 10-25-2024 12:05-0400 Body height 149.[address] Lilly Fletcher MD Work Phone: 9(695)945-597607 [place] [address] 10-25-2024 12:05-0400 Body mass index (BMI) [Ratio] 42.3 kg/m2 Dr. Lilly Fletcher MD Work Phone: 3(122)447-266907 [place] [address] 10-25-2024 12:05-0400 Body weight 94.[address] Lilly Fletcher MD Work Phone: 9(317)464-953756 [place] [address] 10-21-2024 15:18-0400 Body temperature 97.9 [degF] Dr. Lilly Fletcher MD Work Phone: 3(178)611-847107 [place] [address] 10-21-2024 15:18-0400 Diastolic blood pressure 81 mm[Hg] Dr. Lilly Fletcher MD Work Phone: 6(440)513-165756 [place] [address] 10-21-2024 15:18-0400 Heart rate 85 /min Dr. Lilly Fletcher MD Work Phone: 2(981)181-359256 [place] [address] 10-21-2024 15:18-0400 Respiratory rate 20 /min Dr. Lilly Fletcher MD Work Phone: [facility] 10-21-2024 15:18-0400 SaO2% (BldA) [Mass fraction] 94 % Dr. Lilly Fletcher MD Work Phone: [facility] 10-21-2024 15:18-0400 Systolic blood pressure 170 mm[Hg] Dr. Lilly Fletcher MD Work Phone: [facility] 10-21-2024 09:41-0400 Body height 149.[address] Lilly Fletcher MD Work Phone: [facility] 10-21-2024 09:41-0400 Body mass index (BMI) [Ratio] 43.7 kg/m2 Dr. Lilly Fletcher MD Work Phone: 2(276)537-235156 [place] [address] 10-21-2024 09:41-0400 Body weight 98.[address] Lilly Fletcher MD Work Phone: [facility] 09-09-2024 23:08-0400 Body temperature 98.2 [degF] Dr. Lilly Fletcher MD Work Phone: [facility] 09-09-2024 23:08-0400 Diastolic blood pressure 80 mm[Hg] Dr. Lilly Fletcher MD Work Phone: [facility] 09-09-2024 23:08-0400 Heart rate 59 /min Dr. Lilly Fletcher MD Work Phone: [facility] 09-09-2024 23:08-0400 Respiratory rate 18 /min Dr. Lilly Fletcher MD Work Phone: [facility] 09-09-2024 23:08-0400 SaO2% (BldA) [Mass fraction] 94 % Dr. Lilly Fletcher MD Work Phone: [facility] 09-09-2024 23:08-0400 Systolic blood pressure 163 mm[Hg] Dr. Lilly Fletcher MD Work Phone: [facility] 09-09-2024 20:06-0400 Body height 149.[address] Lilly Fletcher MD Work Phone: 2(328)514-610156 [place] [address] 09-09-2024 20:06-0400 Body mass index (BMI) [Ratio] 43.7 kg/m2 Dr. Lilly Fletcher MD Work Phone: 6(384)467-723007 [place] [address] 09-09-2024 20:06-0400 Body weight 98.[address] Lilly Fletcher MD Work Phone: 6(253)657-507665 [address] 09-05-2024 16:01-0400 Body height 149.[address] Lilly Fletcher MD Work Phone: 0(010)908-259307 [place] [address] 09-05-2024 16:01-0400 Body mass index (BMI) [Ratio] 42 kg/m2 Dr. Lilly Fletcher MD Work Phone: 7(231)838-800056 [place] [address] 09-05-2024 16:01-0400 Body weight 94.[address] Lilly Fletcher MD Work Phone: 8(423)661-563656 [place] [address] 09-05-2024 16:01-0400 Diastolic blood pressure 82 mm[Hg] Dr. Lilly Fletcher MD Work Phone: 1(617)551-426507 [place] [address] 09-05-2024 16:01-0400 Heart rate 66 /min Dr. Lilly Fletcher MD Work Phone: 4(739)752-433607 [place] [address] 09-05-2024 16:01-0400 Respiratory rate 18 /min Dr. Lilly Fletcher MD Work Phone: 4(783)778-315356 [place] [address] 09-05-2024 16:01-0400 Systolic blood pressure 142 mm[Hg] Dr. Lilly Fletcher MD Work Phone: 3(690)123-110207 [place] [address] 08-15-2024 15:31-0400 Body height 149.[address] Lilly Fletcher MD Work Phone: 2(371)211-300007 [place] [address] 08-15-2024 15:31-0400 Body mass index (BMI) [Ratio] 41.3 kg/m2 Dr. Lilly Fletcher MD Work Phone: [facility] 08-15-2024 15:31-0400 Body weight 92.[address] Lilly Fletcher MD Work Phone: [facility] 08-15-2024 15:31-0400 Diastolic blood pressure 66 mm[Hg] Dr. Lilly Fletcher MD Work Phone: [facility] 08-15-2024 15:31-0400 Heart rate 74 /min Dr. Lilly Fletcher MD Work Phone: [facility] 08-15-2024 15:31-0400 Respiratory rate 20 /min Dr. Lilly Fletcher MD Work Phone: [facility] 08-15-2024 15:31-0400 Systolic blood pressure 142 mm[Hg] Dr. Lilly Fletcher MD Work Phone: 0(194)415-716956 [place] [address] 08-02-2024 06:53-0400 Body temperature 97.8 [degF] Dr. Lilly Fletcher MD Work Phone: [facility] 08-02-2024 06:53-0400 Diastolic blood pressure 62 mm[Hg] Dr. Lilly Fletcher MD Work Phone: [facility] 08-02-2024 06:53-0400 Heart rate 67 /min Dr. Lilly Fletcher MD Work Phone: [facility] 08-02-2024 06:53-0400 Respiratory rate 18 /min Dr. Lilly Fletcher MD Work Phone: [facility] 08-02-2024 06:53-0400 SaO2% (BldA) [Mass fraction] 95 % Dr. Lilly Fletcher MD Work Phone: [facility] 08-02-2024 06:53-0400 Systolic blood pressure 140 mm[Hg] Dr. Lilly Fletcher MD Work Phone: [facility] 08-02-2024 03:44-0400 Body height 149.[address] Lilly Fletcher MD Work Phone: [facility] 08-02-2024 03:44-0400 Body mass index (BMI) [Ratio] 42.5 kg/m2 Dr. Lilly Fletcher MD Work Phone: 3(498)965-096056 [place] [address] 08-02-2024 03:44-0400 Body weight 95.[address] Lilly Fletcher MD Work Phone: 0(961)464-543507 [place] [address] 06-18-2024 21:58-0400 Body temperature 98.1 [degF] Dr. Lilly Fletcher MD Work Phone: 5(075)949-299107 [place] [address] 06-18-2024 21:58-0400 Diastolic blood pressure 60 mm[Hg] Dr. Lilly Fletcher MD Work Phone: 3(075)187-352607 [place] [address] 06-18-2024 21:58-0400 Heart rate 91 /min Dr. Lilly Fletcher MD Work Phone: 3(433)712-490507 [place] [address] 06-18-2024 21:58-0400 Respiratory rate 16 /min Dr. Lilly Fletcher MD Work Phone: 6(324)423-014907 [place] [address] 06-18-2024 21:58-0400 SaO2% (BldA) [Mass fraction] 97 % Dr. Lilly Fletcher MD Work Phone: 3(999)715-875007 [place] [address] 06-18-2024 21:58-0400 Systolic blood pressure 116 mm[Hg] Dr. Lilly Fletcher MD Work Phone: 5(096)251-642756 [place] [address] 06-18-2024 20:34-0400 Body height 149.[address] Lilly Fletcher MD Work Phone: 2(301)139-576607 [place] [address] 06-18-2024 20:34-0400 Body mass index (BMI) [Ratio] 43.2 kg/m2 Dr. Lilly Fletcher MD Work Phone: 8(752)062-219207 [place] [address] 06-18-2024 20:34-0400 Body weight 97.[address] Lilly Fletcher MD Work Phone: 8(678)608-385907 [place] [address] 03-25-2023 16:24-0500 Body height 149.[address] Lilly Fletcher Work Phone: [facility] 03-25-2023 16:24-0500 Body mass index (BMI) [Ratio] 43 kg/m2 Dr. Lilly Fletcher Work Phone: [facility] 03-25-2023 16:24-0500 Body temperature 97.8 [degF] Dr. Lilly Fletcher Work Phone: 3(228)133-404456 [place] [address] 03-25-2023 16:24-0500 Body weight 96.[address] Lilly Fletcher Work Phone: 8(209)150-478207 [place] [address] 03-25-2023 16:24-0500 Diastolic blood pressure 90 mm[Hg] Dr. Lilly Fletcher Work Phone: 9(480)568-982107 [place] [address] 03-25-2023 16:24-0500 Heart rate 82 /min Dr. Lilly Fletcher Work Phone: 7(842)295-342756 [place] [address] 03-25-2023 16:24-0500 Respiratory rate 20 /min Dr. Lilly Fletcher Work Phone: 6(879)554-216065 [address] 03-25-2023 16:24-0500 SaO2% (BldA) [Mass fraction] 95 % Dr. Lilly Fletcher Work Phone: 4(651)803-683856 [place] [address] 03-25-2023 16:24-0500 Systolic blood pressure 152 mm[Hg] Dr. Lilly Fletcher Work Phone: 4(048)598-545556 [place] [address] 02-02-2023 10:11-0500 Body height 149.[address] Lilly Fletcher Work Phone: 9(574)442-372756 [place] [address] 02-02-2023 10:11-0500 Body mass index (BMI) [Ratio] 43.8 kg/m2 Dr. Lilly Fletcher Work Phone: 6(744)499-600356 [place] [address] 02-02-2023 10:11-0500 Body weight 98.[address] Lilly Fletcher Work Phone: 8(743)495-162056 [place] [address] 02-02-2023 10:11-0500 Diastolic blood pressure 73 mm[Hg] Dr. Lilly Fletcher Work Phone: [facility] 02-02-2023 10:11-0500 Heart rate 87 /min Dr. Lilly Fletcher Work Phone: [facility] 02-02-2023 10:11-0500 Respiratory rate 18 /min Dr. Lilly Fletcher Work Phone: [facility] 02-02-2023 10:11-0500 SaO2% (BldA) [Mass fraction] 94 % Dr. Lilly Fletcher Work Phone: [facility] 02-02-2023 10:11-0500 Systolic blood pressure 137 mm[Hg] Dr. Lilly Fletcher Work Phone: [facility] 10-31-2021 10:51-0400 Body height 147.[address] Lilly Fletcher Work Phone: [facility] Work Phone: 10-31-2021 10:51-0400 Body mass index (BMI) [Ratio] 44.5 kg/m2 Dr. Lilly Fletcher Work Phone: [facility] Work Phone: 10-31-2021 10:51-0400 Body weight 96.[address] Lilyl Fletcher Work Phone: [facility] Work Phone: 10-31-2021 10:51-0400 Diastolic blood pressure 90 mm[Hg] Dr. Lilly Fletcher Work Phone: [facility] Work Phone: 10-31-2021 10:51-0400 Heart rate 67 /min Dr. Lilly Fletcher Work Phone: [facility] Work Phone: 10-31-2021 10:51-0400 Respiratory rate 20 /min Dr. Lilly Fletcher Work Phone: [facility] Work Phone: 10-31-2021 10:51-0400 SaO2% (BldA) [Mass fraction] 94 % Dr. Lilly Fletcher Work Phone: [facility] Work Phone: 10-31-2021 10:51-0400 Systolic blood pressure 157 mm[Hg] Dr. Lilly Fletcher Work Phone: [facility] Work Phone: 10-12-2021 18:12-0400 Diastolic blood pressure 98 mm[Hg] [facility] Work Phone: 10-12-2021 18:12-0400 Heart rate 66 /min [facility] Work Phone: 10-12-2021 18:12-0400 Respiratory rate 17 /min [facility] Work Phone: 10-12-2021 18:12-0400 SaO2% (BldA) [Mass fraction] 97 % [facility] Work Phone: 10-12-2021 18:12-0400 Systolic blood pressure 169 mm[Hg] [facility] Work Phone: 10-12-2021 13:21-0400 Body height 147.32 cm [facility] Work Phone: 10-12-2021 13:21-0400 Body mass index (BMI) [Ratio] 45.7 kg/m2 [facility] Work Phone: 10-12-2021 13:21-0400 Body temperature 98.1 [degF] [facility] Work Phone: 10-12-2021 13:21-0400 Body weight 99.3 kg [facility] Work Phone: 04-18-2021 07:35-0500 Body height 152.[address] Lilly Fletcher Work Phone: [facility] Work Phone: 04-18-2021 07:35-0500 Body mass index (BMI) [Ratio] 40.8 kg/m2 Dr. Lilly Fletcher Work Phone: [facility] Work Phone: 04-18-2021 07:35-0500 Body weight 95.[address] Lilly Fletcher Work Phone: [facility] Work Phone: 04-18-2021 07:35-0500 Diastolic blood pressure 84 mm[Hg] Dr. Lilly Fletcher Work Phone: [facility] Work Phone: 04-18-2021 07:35-0500 Heart rate 82 /min Dr. Lilly Fletcher Work Phone: [facility] Work Phone: 04-18-2021 07:35-0500 Respiratory rate 18 /min Dr. Lilly Fletcher Work Phone: [facility] Work Phone: 04-18-2021 07:35-0500 SaO2% (BldA) [Mass fraction] 95 % Dr. Lilly Fletcher Work Phone: [facility] Work Phone: 04-18-2021 07:35-0500 Systolic blood pressure 132 mm[Hg] Dr. Lilly Fletcher Work Phone: [facility] Work Phone: 10-28-2016 11:34-0400 BP Diastolic 108 mm[Hg] [facility] Work Phone: 10-28-2016 11:34-0400 BP Systolic 150 mm[Hg] [facility] Work Phone: 10-28-2016 11:34-0400 Pulse (Heart Rate) 76 /min [facility] Work Phone: 10-28-2016 11:34-0400 Respiratory Rate 20 /min [facility] Work Phone: 09-24-2016 11:42-0400 BP Diastolic 90 mm[Hg] Harumi DeFinis [facility] Work Phone: 09-24-2016 11:42-0400 BP Systolic 148 mm[Hg] Harumi DeFinis [facility] Work Phone: 09-24-2016 11:42-0400 Pulse (Heart Rate) 64 /min Harumi DeFinis [facility] Work Phone: 09-24-2016 11:42-0400 Respiratory Rate 20 /min Harumi DeFinis [facility] Work Phone: 09-08-2016 11:25-0400 BP Diastolic 90 mm[Hg] Harumi DeFinis [facility] Work Phone: 09-08-2016 11:25-0400 BP [...] BP Systolic 160 mm[Hg] Elie Davis MD [facility] Work Phone: 08-26-2016 11:40-0400 Height 152.4 cm Elie Davis MD [facility] Work Phone: 08-26-2016 11:40-0400 Pulse (Heart Rate) 72 /min Elie Davis MD [facility] Work Phone: 08-26-2016 11:40-0400 Respiratory Rate 20 /min Elie Davis MD [facility] Work Phone: 08-26-2016 11:40-0400 Weight 99.07 kg Elie Davis MD [facility] Work Phone: 11-27-2015 15:03-0400 BSA (Body Surface Area) 1.95 m2 Elie Daivs MD [facility] Work Phone: 03-01-2014 09:21-0500 Heart rate 73 /min Nella Valerio [facility] Work Phone: Encounters Encounter Date Encounter Type Care Provider Facility Start: 01-03-2025 ambulatory [facility] Start: 12-22-2024 ambulatory [facility] Start: 12-19-2024 ambulatory [facility] Start: 11-30-2024 Dr. Paul Lauren MD [facility] Work Phone: Start: 11-29-2024 Dr. Paul Lauren MD -[facility] Work Phone: Start: 11-28-2024 Dr. Paul Lauren MD [facility] Work Phone: Start: 11-27-2024 Dr. Paul Lauren MD [facility] Work Phone: Start: 11-26-2024 End: 11-30-2024 ambulatory [facility] Emergency [facility] Facility:[facility] Start: 11-26-2024 End: 11-30-[address] Lilly Fletcher MD Work Phone: -Medical Surgical 3 Start: 11-26-2024 End: 11-30-2024 Dr. Paul Lauren MD -[facility] 3 Work Phone: Start: 10-26-2024 Dr. Seth Flores MD -[facility] Work Phone: Start: 10-26-2024 Non-patient / Non-visit Dr. Franko cadena MD -[facility] Start: 10-26-2024 Dr. Franko Franco MD -[facility] Start: 10-26-2024 ambulatory Brayan Gerber lity:[facility] Start: 10-25-2024 End: 10-26-2024 ambulatory Aranza Little Facility:[facility] Start: 10-25-2024 End: 10-26-2024 Evaluation and management of inpatient Dr. Aranza Little MD -Progressive Care Unit Work Phone: Start: 10-25-2024 End: 10-26-[address] Lilly Fletcher MD Work Phone: -[facility] Start: 10-25-2024 End: 10-26-2024 Dr. Seth Flores MD -[facility] Work Phone: Start: 10-21-2024 End: 10-21-2024 Dr. Donovan Pierson DO -Emergency Departva nt Work Phone: Start: 10-21-2024 End: 10-21-2024 Emergency department patient visit Dr. Lilly Fletcher MD Work Phone: -Emergency Department Work Phone: Start: 10-14-2024 End: 10-14-2024 Patient encounter procedure Ginger Grace [employer]-C -[facility] Work Phone: Start: 10-14-2024 End: 10-14-2024 Ginger Grace NP-C -[facility] Work Phone: Start: 10-14-2024 End: 10-14-[address] Lilly Fletcher MD Work Phone: -[facility] Start: 10-01-2024 End: 10-01-[address] Lilly Fletcher MD Work Phone: -Laboratory Start: 10-01-2024 End: 10-01-2024 Patient encounter procedure Kale Ansari [employer]OLLER REPAIRER [employer]-C -Laboratory Work Phone: Start: 10-01-2024 End: 10-01-2024 Kale Ansari [employer]OLLER REPAIRER AND TE[employer]-C -Laboratory Work Phone: Start: 10-01-2024 End: 10-01-2024 ambulatory No Primary Care Physician Facility:[facility] Start: 09-14-2024 ambulatory Kale Ansari [employer] Facility :[facility] Start: 09-09-2024 End: 09-09-2024 Emergency department patient visit Dr. Lilly Fletcher MD Work Phone: -Emergency Department Work Phone: Start: 09-09-2024 End: 09-09-2024 Dr. Donovan Pierson DO -Emergency Departva nt Work Phone: Start: 09-05-2024 End: 09-05-2024 Patient encounter procedure Kale Ansari [employer]OLLER REPAIRER [employer]-C -[facility] Work Phone: Start: 09-05-2024 End: 09-05-2024 Kale Ansari CONTROLLER REPAIRER AND TESTER-C -[facility] Work Phone: Start: 09-05-2024 End: 09-05-[address] Lilly Fletcher MD Work Phone: -[facility] Start: 08-29-2024 ambulatory Kale Ansari [employer]OLLER REPAIRER AND TE[employer] Facility :[facility] Start: 08-29-2024 Dr. Elie Davis MD [facility] Work Phone: Start: 08-29-2024 ambulatory Kale Ansari [employer] REPAIRER [employer] Facility :[facility] Start: 08-29-2024 Registered Referred Kale Ansari CONTROLLER REPAIRER AND TESTER-C -Cardiovascular Services Work Phone: Start: 08-29-2024 Kale nAsari CONTROLLER REPAIRER AND TESTER-C -Cardi ovascular Services Work Phone: Start: 08-15-2024 End: 08-15-2024 Patient encounter procedure Kale Ansari CONTROLLER REPAIRER AND TESTER-C -[facility] Work Phone: Start: 08-15-2024 End: 08-15-2024 Kale Ansari CONTROLLER REPAIRER AND TESTER-C -[facility] Work Phone: Start: 08-15-2024 End: 08-15-[address] Lilly Fletcher MD Work Phone: [facility] Work Phone: Start: 08-02-2024 End: 08-02-2024 Dr. Jaylen Jack DO -Emergency Departva nt Work Phone: Start: 08-02-2024 End: 08-02-2024 Emergency department patient visit Dr. Lilly Fletcher MD Work Phone: -Emergency Department Work Phone: Start: 06-18-2024 End: 06-18-2024 Emergency department patient visit Dr. Lilly Fletcher MD Work Phone: -Emergency Department Work Phone: Start: 03-25-2023 End: 03-25-[address] Lilly Fletcher Work Phone: [facility] Work Phone: Start: 03-25-2023 End: 03-25-[address] Lilly Fletcher Work Phone: [facility] Work Phone: Start: 02-02-2023 End: 02-02-[address] Lilly Fletcher Work Phone: [facility] Work Phone: Start: 02-02-2023 End: 02-02-[address] Lilly Fletcher Work Phone: [facility] Work Phone: Start: 01-07-2022 End: 01-07-[address] Lilly Fletcher Work Phone: [facility] Work Phone: Start: 01-07-2022 End: 01-07-[address] Lilly Fletcher Work Phone: [facility]-Laboratory Start: 12-25-2021 End: 12-25-[address] Lilly Fletcher Work Phone: [facility] Work Phone: Start: 12-25-2021 End: 12-25-[address] [facility] Start: 11-20-2021 Non-patient / Non-visit Dr. Bella Fletcher Work Phone: [facility] Start: 11-20-2021 End: 11-20-[address] Lilly Fletcher Work Phone: [facility] Work Phone: Start: 11-20-2021 End: 11-20-[address] Lilly Fletcher Work Phone: [facility]-Cardiovascula r Services Start: 11-07-2021 End: 11-07-[address] Lilly Fletcher Work Phone: [facility] Work Phone: Start: 11-07-2021 End: 11-07-[address] Lilly Fletcher Work Phone: [facility]-Pulmonary Services/Neurology Start: 10-31-2021 End: 10-31-[address] Lilly Fletcher Work Phone: [facility] Start: 10-12-2021 End: 10-12-2021 Emergency department patient visit [facility]-Emergency Department Start: 05-30-2021 End: 05-30-[address] Lilly Fletcher Work Phone: [facility]-Laboratory Start: 05-08-2021 Non-patient / Non-visit Dr. Bella Fletcher Work Phone: [facility] Start: 05-08-2021 End: 05-08-[address] Lilly Fletcher Work Phone: [facility]-Cardiovascula r Services Start: 04-18-2021 End: 04-18-[address] Lilly Fletcher Work Phone: [facility] Procedures Date Procedure Procedure Detail Performing Clinician Start: 11-28-2024 Plain chest X-ray Dr. Preston Fletcher MD Work Phone: Start: 11-28-2024 Blood count smear mc rscp w/mnl difrntl wbc count Dr. Lilly Fletcher MD Work Phone: Start: 11-28-2024 Estimated creatinine [...] Work Phone: Start: 11-27-[address] Lilly Fletcher MD Work Phone: Start: 11-26-2024 Radiologic [...] Start: 09-24-2016 End: 10-28-2016 *BMP Kale Ansari [employer] Work Phone: Start: 09-24-2016 End: 09-24-2016 Follow Up BP Check Elie Davis MD Start: 08-26-2016 End: 09-08-2016 *BMP Kale Ansari [employer] Work Phone: Start: 08-26-2016 End: 08-27-[address] JUDGE Kale Ansari [employer]ER [employer] Work Phone: Start: 08-26-2016 End: 08-27-2016 Follow Up Appt 6 months Kale Ansari [employer] Work Phone: Start: 08-26-2016 End: 09-08-2016 Follow Up BP Check Kale Ansari [employer] RE[employer] Work Phone: Start: 11-27-2015 End: 11-27-2015 Follow Up Appt 6 months Willis Lara Start: 11-27-2015 End: 11-27-2015 MAE Davis MD Start: 11-22-2015 End: 11-29-2015 Lipid panel [AGGREGATE] Vivien lopez PA-C Work Phone: Start: 06-15-2015 End: 06-25-2015 *Hepatic Function Panel Vivien lopez PA-C Work Phone: Start: 06-15-2015 End: 06-25-2015 Lipid panel [AGGREGATE] Vivien lopez PA-C Work Phone: Start: 03-28-2015 End: 03-28-[address] JUDGE Vivien Haynes PA-C Work Phone: Start: 03-28-2015 [...] 05-24-2014 End: 05-29-2014 *Hepatic Function Panel Willis aLra Start: 05-24-2014 End: 05-29-2014 Lipid panel [AGGREGATE] Willis Lara Start: 03-01-2014 End: 03-01-[address] JUDGE Vivien Haynes PA-C Work Phone: Start: 03-01-2014 [...] [AGGREGATE] Willis Lara Start: 12-07-2012 End: 12-07-[address] JUDGE Vivien Haynes PA-C Work Phone: Start: 12-07-2012 [...] Activity Detail Author Start: 11-30-2024 Patient discharge [facility] Start: 11-26-2024 Assessment of risk of venous thromboembolism [facility] Start: 11-26-2024 Insertion of catheter into peripheral vein [facility] Start: 11-26-2024 Measuring intake and output [facility] Start: 11-26-2024 Oxygen therapy [facility] Start: 11-26-2024 Providing care according to standard [facility] Start: 11-26-2024 Provision of activity privileges [facility] Start: 11-26-2024 Referral for physical therapy [facility] Start: 11-26-2024 Referral to occupational therapist [facility] Start: 11-26-2024 Referral to service [facility] Start: 11-26-2024 [facility] Start: 11-26-2024 End: 11-26-2024 Following clinical pathway protocol [facility] Start: 11-26-2024 Admission procedure [facility] Start: 11-26-2024 Verification routine [facility] Start: 11-26-2024 [facility] Start: 10-26-2024 Patient discharge [facility] Start: 10-25-2024 [facility] Start: 10-25-2024 Assessment of risk of venous thromboembolism [facility] Start: 10-25-2024 Insertion of catheter into peripheral vein [facility] Start: 10-25-2024 Measuring intake and output [facility] Start: 10-25-2024 Notification of physician [facility] Start: 10-25-2024 Providing care according to standard [facility] Start: 10-25-2024 Provision of activity privileges [facility] Start: 10-25-2024 [facility] Start: 10-25-2024 Following clinical pathway protocol [facility] Start: 10-25-2024 Verification routine [facility] Start: 10-25-2024 Admission procedure [facility] Start: 10-25-2024 Hospital admission, emergency, from emergency room, medical nature [facility] Start: 10-25-2024 Bacteria identified in Urine by Culture Urine Culture [facility] Start: 10-25-2024 [facility] Start: 10-21-2024 [facility] Start: 10-21-2024 [facility] Start: 10-14-2024 End: 10-14-2024 Evaluation of diagnostic study results [facility] Start: 09-09-2024 [facility] Start: 09-09-2024 [facility] Start: 08-02-2024 [facility] Start: 08-02-2024 [facility] Start: 06-18-2024 End: 06-18-2024 [facility] Start: 10-12-2021 [facility] Work Phone: Start: 02-26-2017 End: 02-26-2017 Appointment Appointment [facility] Work Phone: Start: 11-11-2016 End: 11-11-2016 Appointment [facility]ointment [facility] Work Phone: Start: 10-28-2016 End: 10-28-2016 Appointment Appointment [facility] Work Phone: Start: 10-28-2016 End: 10-28-2016 Follow Up BP Check Follow Up BP Check [facility] Work Phone: Start: 10-08-2016 End: 10-08-2016 Appointment [facility]ointment [facility] Work Phone: Start: 09-24-2016 End: 09-24-2016 Appointment [facility]ointment [facility] Work Phone: Start: 09-24-2016 End: 10-28-2016 *BMP *BMP [facility] Work Phone: Start: 09-24-2016 End: 09-24-2016 Follow Up BP Check Follow Up BP Check [facility] Work Phone: Start: 09-22-2016 End: 09-22-2016 Appointment [facility]ointment [facility] Work Phone: Start: 09-08-2016 End: 09-08-2016 Appointment Appointment [facility] Work Phone: Start: 09-05-2016 End: 09-05-2016 Appointment [facility]ointment [facility] Work Phone: Start: 08-27-2016 End: 08-27-2016 Appointment Appointment [facility] Work Phone: Start: 08-26-2016 End: 09-08-2016 *BMP *BMP [facility] Work Phone: Start: 08-26-2016 End: 08-27-2016 *Hepatic Function Panel *Hepatic Function Panel [facility] Work Phone: Start: 08-26-2016 End: 08-27-[address] JUDGE ASSOCIATE [employer] [employer] JUDGE [facility] Work Phone: Start: 08-26-2016 End: 08-27-2016 Follow Up Appt 6 months Follow Up Appt 6 months [facility] Work Phone: Start: 08-26-2016 End: 09-08-2016 Follow Up BP Check Follow Up BP Check [facility] Work Phone: Start: 08-26-2016 End: 08-27-2016 Lipid panel [AGGREGATE] *Lipid Profile CC PCP [facility] Work Phone: Start: 11-27-2015 End: 11-27-2015 Follow Up Appt 6 months Follow Up Appt 6 months [facility] Work Phone: Start: 11-27-2015 End: 11-27-2015 MMM MMM [facility] Work Phone: Start: 11-22-2015 End: 11-29-2015 Lipid panel [AGGREGATE] *Lipid Profile CC PCP [facility] Work Phone: Start: 06-15-2015 End: 06-25-2015 *Hepatic Function Panel *Hepatic Function Panel [facility] Work Phone: Start: 06-15-2015 End: 06-25-2015 Lipid panel [AGGREGATE] *Lipid Profile CC PCP [facility] Work Phone: Start: 03-28-2015 End: 03-28-[address] JUDGE ASSOCIATE [place] [employer] JUDGE [facility] Work Phone: Start: 03-28-2015 End: 03-28-2015 Echocardiography Echocardiogram (complete) [facility] Work Phone: Start: 03-28-2015 End: 03-28-2015 Follow Up Appt 6 months Follow Up Appt 6 months [facility] Work Phone: Start: 11-29-2014 End: 12-14-2014 *Hepatic Function Panel *Hepatic Function Panel [facility] Work Phone: Start: 11-29-2014 End: 12-14-2014 Lipid panel [AGGREGATE] *Lipid Profile CC PCP [facility] Work Phone: Start: 09-12-2014 End: 09-12-2014 Follow Up Appt 6 months Follow Up Appt 6 months [facility] Work Phone: Start: 09-12-2014 End: 09-12-2014 MMM MMM [facility] Work Phone: Start: 05-24-2014 End: 05-29-2014 *Hepatic Function Panel *Hepatic Function Panel [facility] Work Phone: Start: 05-24-2014 End: 05-29-2014 Lipid panel [AGGREGATE] *Lipid Profile CC PCP [facility] Work Phone: Start: 03-01-2014 End: 03-01-[address] JUDGE ASSOCIATE [employer] [address] JUDGE [facility] Work Phone: Start: 03-01-2014 End: 03-01-2014 Electrocardiogram, complete EKG (In office) [facility] Work Phone: Start: 03-01-2014 End: 03-01-2014 Follow Up Appt 6 months Follow Up Appt 6 months [facility] Work Phone: Start: 10-31-2013 End: 11-24-2013 *Hepatic Function Panel *Hepatic Function Panel [facility] Work Phone: Start: 10-31-2013 End: 11-24-2013 Lipid panel [AGGREGATE] *Lipid Profile CC PCP [facility] Work Phone: Start: 07-20-2013 End: 07-20-2013 Echocardiography Echocardiogram (complete) [facility] Work Phone: Start: 07-20-2013 End: 07-20-2013 Follow Up Appt 6 months Follow Up Appt 6 months [facility] Work Phone: Start: 07-20-2013 End: 07-20-2013 MMM MMM [facility] Work Phone: Start: 04-02-2013 End: 05-12-2013 *Hepatic Function Panel *Hepatic Function Panel [facility] Work Phone: Start: 04-02-2013 End: 05-12-2013 Lipid panel [AGGREGATE] *Lipid Profile CC PCP [facility] Work Phone: Start: 12-07-2012 End: 12-07-[address] JUDGE ASSOCIATE [place] JUDGE [facility] Work Phone: Start: 12-07-2012 [...] 6 months Follow Up Appt 6 months [facility] Work Phone: Start: 06-04-2012 End: 06-04-2012 MMM MMM [facility] Work Phone: Start: 03-03-2012 End: 03-24-2012 *Hepatic Function Panel *Hepatic Function Panel [facility] Work Phone: Start: 03-03-2012 End: 03-24-2012 Lipid panel [AGGREGATE] *Lipid Profile [facility] Work Phone: Start: 09-23-2011 End: 10-03-2011 *Hepatic Function Panel *Hepatic Function Panel [facility] Work Phone: Start: 09-23-2011 End: 10-03-2011 Lipid panel [AGGREGATE] *Lipid Profile [facility] Work Phone: Start: 08-13-2011 End: 08-13-2011 Follow Up Appt 6 months Follow Up Appt 6 months [facility] Work Phone: Cardiac event recording [facility] Patient Education [facility] Work Phone: Patient referral [facility] Work Phone: Troponin T.cardiac [Mass/volume] in Serum or Plasma by High sensitivity method [facility] Troponin T.cardiac [Mass/volume] in Serum or Plasma by High sensitivity method [facility] Urine culture [facility] US Carotid arteries [facility] US Heart [facility] Work Phone: [facility] Immunizations Immunization Date Immunization Notes Care Provider Sangeeta cat 11-27-2024 influenza, high dose seasonal, preservative-free Dr. Lilly Fletcher MD Work Phone: [facility] Payers Date Payer Category Payer Self-pay [id number] 2023 Medicare [id number] Medicare [id number] Private Health Insurance [id number] Unknown [id number] 2.16.8 [id number] Unknown [id number] 2.16.8 [id number] Unknown [id number] 2.16.8 [id number] Unknown [id number] 2.16.8 [id number] Unknown [id number] 2.16.8 [id number] Unknown [id number] 2.16.8 [id number] Unknown [id number] 2.16.8 [id number] Unknown [id number] 2.16.8 [id number] Unknown [id number] 2.16.8 [id number] Unknown [id number] 2.16.8 [id number] Unknown [id number] 2.16.8 40.1.082365.3.579.2.462 Unknown [id number] 2.16.8 40.1.265701.3.579.2.462 Unknown [id number] 2.16.8 40.1.349982.3.579.2.462 Unknown [id number] 2.16.8 40.1.569878.3.579.2.462 Unknown [id number] 2.16.8 40.1.004738.3.579.2.462 Unknown [id number] 2.16.8 40.1.848009.3.579.2.462 Unknown [id number] 2.16.8 40.1.692500.3.579.2.462 Unknown [id number] 2.16.8 40.1.288050.3.579.2.462 Unknown [id number] 2.16.8 40.1.376594.3.579.2.462 Unknown [id number] 2.16.8 40.1.856938.3.579.2.462 Unknown [id number] 2.16.8 40.1.751740.3.579.2.462 Unknown [id number] 2.16.8 40.1.148136.3.579.2.462 Unknown [id number] 2.16.8 [id number] Unknown [id number] 2.16.8 [id number] Unknown [id number] 2.16.8 [id number] Social History Date Type Detail Facility Start: 04-18-2021 End: 03-25-2023 Tobacco smoking status MIIS Unknown if ever smoked [facility] Start: 07-11-2020 None [facility] Start: 10-25-2015 With Family [facility] Start: 07-11-2020 Non-smoker [facility] Start: 1945 Sex Assigned At Female [facility] Start: 06-18-2024 End: 11-26-2024 Tobacco smoking status NHIS Never smoked tobacco (finding) [facility] Start: 06-18-2024 Sex Female (finding) [facility] Sex [facility] Goals Date Patient Goal Desired Activity /State Functional Status Date Assessment Result Facility 11-30-2024 Functional status Bedside Commode [facility] Work Phone: 10-26-2024 Functional status Ambulates [facility] Work Phone: 10-26-2024 Functional status Well [facility] Work Phone: Mental Status Date Assessment Result Facility 11-30-2024 Cognitive function Voice/Name [facility] Work Phone: 11-30-2024 Cognitive function Voice/Name [facility] Work Phone: 10-26-2024 Cognitive function Voice/Name [facility] Work Phone: 10-25-2024 Cognitive function Awake;Alert;A ppropriate;Fol lows Commands [facility] Work Phone: 10-21-2024 Cognitive function Voice/Name [facility] Work Phone: 09-09-2024 Cognitive function Voice/Name [facility] Work Phone: 08-02-2024 Cognitive function Awake;Alert;A ppropriate;Fol lows Commands [facility] Work Phone: 10-12-2021 Cognitive function Voice[facility]Name [facility] [facility] Work Phone: Clinical Notes 06-18-2024 to 11-30-2024 Note Date & Type Note Facility 11-30-2024 Consult note Note Date/Time November 30, 2024 3:10pm [facility] Medical Records Department [address] [place] [address] Counseling Note - Pharmacy 11/30/24 1510 MR#: [id number] Acct: [id number] Name: AYAN CARRILLO Rep #:[id number] : 1945 79 From: Ladonna Duval PCP: Dr. Brayan Thompson MD Status :ADM HERSON Y Location: [place]3 [id number] Pharmacy [place] Med Reconciliation Pharmacy Service has performed discharge [...] Signature (if applicable): Date CC: ~ Signed [facility] Work Phone: 1(402) 123-336910-01-2025 Discharge summary Author Paul Lauren [facility] Note Date/Time November 30, 2024 2: 44pm [facility] Medical Records Department [address] [place] [address] Discharge Summary 11/30/24 1440 MR#: [id number] Acct: [id number] Name: AYAN CARRILLO Rep #:[id number] : 1945 79 From: Paul Ngo PCP: Dr. Brayan Thompson MD Status :ADM HERSON Location: [place] [address] Providers Date of Admission: 11/26/24 Date of [...] T4 after 6 weeks. 7. CAD; s/p [place] -on baby aspirin. If anemia will be [...] 70.8 H, Lymph % (Auto) 14.1 L, Cherry % (Auto) 13.4 H, Eos % (Auto) [...] Chronic/degenerative changes as described above. Reading Location: [facility] Cervical Spine CT 11/26/24 17:01 IMPRESSION: No acute traumatic findings. Chronic/degenerative changes as described above. Reading Location: [facility] Chest X-Ray 11/26/24 17:10 IMPRESSION: No radiographic evidence of an acute cardiopulmonary process Reading Location: [id number] Medications at Discharge Home Medications nitroglycerin 0.4 [...] Up: Brayan Thompson MD [Primary Care Provider, [facility]] Kale Ansari CONTROLLER REPAIRER AND TESTER, CONTROLLER REPAIRER AND TESTER-C [Med Staff - [facility] Prof, Cardiology] - Within 2 Weeks Referral Note: Hypotension, orthostatic hypotension. Dizziness Disposition Disposition (needs filled in before D/C Order can be placed): [facility] Facility Charges/Coding Addendum Addendum: I have reviewed the oxygen testing, and this patient qualifies for the home equipment and portability. The patient is mobile in the home and the community. Visit Charges Inpatient E&M: 13896 Disch Hosp >30min 11/30/24 1444 <Electronically signed by Paul Lauren MD> Cosigner Signature (if applicable): CC: CONTROLLER REPAIRER AND TESTER-C Kale Ansari; Dr. Brayan Thompson MD; Dr. Paul Lauren MD~ Signed [facility] Work Phone: 1([phone]) 320-890610-01-2025 Discharge summary Author Paul Lauren [facility] Note Date/Time November 30, 2024 2: 40pm [facility] Medical Records Department [address] [place] [address] Transfer to [facility] MR#: [id number] Acct: [id number] Name: AYAN CARRILLO Rep #:[id number] : 1945 79 From: Paul Ngo PCP: Dr. Brayan Thompson MD Status :ADM HERSON Certification of patient admission REQUIRED AT TIME OF ADMISSION. I CERTIFY THAT POST-HOSPITAL ECF SERVICES ARE REQUIRED TO BE GIVEN ON AN IN-PATIENT BASIS BECAUSE OF THE ABOVE NAMED PATIENT'S NEED FOR ASSISTED CARE ON A CONTINUING BASIS FOR THE [...] T4 after 6 weeks. 7. CAD; s/p [place] -on baby aspirin. If anemia will be [...] 70.8 H, Lymph % (Auto) 14.1 L, Cherry % (Auto) 13.4 H, Eos % (Auto) [...] Chronic/degenerative changes as described above. Reading Location: [facility] Cervical Spine CT 11/26/24 17:01 IMPRESSION: No acute traumatic findings. Chronic/degenerative changes as described above. Reading Location: [facility] Chest X-Ray 11/26/24 17:10 IMPRESSION: No radiographic evidence of an acute cardiopulmonary process Reading Location: [id number] Allergies/Procedures Done in Hospital Allergies hydrochlorothiazide Adverse Reaction (Intermediate, Verified 11/26/24 15:58) Constipation and urinary incontinence Type of Care/Length of Stay Estimated LOS: Convalescent Care Less Than 30 days Type of Care Needed: Skilled Rehab Potential: Good Prognosis: Good Additional Orders/Day of Discharge Day of Discharge: 11/30/24 Dietary and Speech Recommendations Dietitian Recommendations/Changes: Will continue liberalized regular diet with consistency/texture as per SERVICE COUNSELOR. Will continue 120mL ensure plus HP 4 [...] Up: Brayan Thompson MD [Primary Care Provider, [facility]] Kale Ansari CONTROLLER REPAIRER AND TESTER, CONTROLLER REPAIRER AND TESTER-C [Med Staff - [facility] Prof, Cardiology] - Within 2 Weeks Referral Note: Hypotension, orthostatic hypotension. Dizziness Disposition Disposition (needs filled in before D/C Order can be placed): [facility] Facility (4) Closed head injury without concussion Qualifiers: Encounter type: initial encounter Qualified Code(s): S09.90XA - Unspecified injury of head, initial encounter 11/30/24 1440 <Electronically signed by Paul Lauren MD> Cosigner Signature (if applicable): CC: Dr. Brayan Thompson MD; Dr. Reynaldo Oliva, DO ~ [facility] Work Phone: 1(363) 501-495110-01-2025 [facility]10-01-2025 Hospital Discharge instructionsAdditional Instructions Bilateral Usama wrap bandage in lower extremities. Patient could not tolerate Lasix because of hypotension and dizziness. Date of Discharge: 11/30/24[facility] Work Phone: 1(887) 512-275909-30-2025 Progress note Author [facility] Note Date/Time November 29, 2024 4:53pm [facility] Medical Records Department [address] [place] [address] Progress Note - Hospitalist 11/29/24 1641 MR#: [id number] Acct: [id number] Name: AYAN CARRILLO Rep #:[id number] : 1945 79 From: Paul Ngo PCP: Dr. Brayan Thompson MD Status :ADM HERSON Location: [place] [address] Reason for Visit Chief Complaint: Generalized Weakness, [...] T4 after 6 weeks. 7. CAD; s/p [place] -on baby aspirin. If anemia will be [...] 70.8 H, Lymph % (Auto) 14.1 L, Cherry % (Auto) 13.4 H, Eos % (Auto) [...] Chronic/degenerative changes as described above. Reading Location: [facility] Cervical Spine CT 11/26/24 17:01 IMPRESSION: No acute traumatic findings. Chronic/degenerative changes as described above. Reading Location: [facility] Chest X-Ray 11/26/24 17:10 IMPRESSION: No radiographic evidence of an acute cardiopulmonary process Reading Location: [id number] Charges/Coding Visit Charges Inpatient E&M: 09768 Subs Hosp L2 11/29/24 1648 <Electronically signed by Paul Lauren MD> Cosigner Signature (if applicable): CC: ~ Signed ADDENDUM by Dr. Paul Lauren MD on 11/29/24 at 1653 Addendum Carvedilol is held. 11/29/241652<Electronically signed by Paul Lauren MD> Cosigner Signature (if applicable): cc: ~* Signed [facility] Work Phone: 1(365) 566-958309-29-2025 Progress note Author Paul Lauren [facility] Note Date/Time November 28, 2024 4:57pm [facility] Medical Records Department [address] [place] [address] Progress Note - Hospitalist 11/28/24 1652 MR#: [id number] Acct: [id number] Name: AYAN CARRILLO Rep #:[id number] : 1945 79 From: Paul Ngo PCP: Dr. Brayan Thompson MD Status :ADM HERSON Location: [place] [id number] Reason for Visit Chief Complaint: Generalized Weakness, [...] 79.4 H, Lymph % (Auto) 7.3 L, Cherry %(Auto) 11.3 H, Eos % (Auto) 1.3, [...] Hypoventilation. Atelectasis left lung base. Reading Location: [facility] Rhythm Strip Rhythm Strip: Sinus Rhythm Rate: [...] T4 after 6 weeks. 7. CAD; s/p [place] -on baby aspirin. If anemia will be [...] 79.4 H, Lymph % (Auto) 7.3 L, Cherry %(Auto) 11.3 H, Eos % (Auto) 1.3, [...] 79.7 H, Lymph % (Auto) 9.7 L, Cherry %(Auto) 9.2, Eos % (Auto) 0.8, Baso [...] Sl. Cloudy, Urine pH 6.5, Ur Specific Jupiter 1.015, Urine Protein 15 H, Urine Glucose [...] 70.8 H, Lymph % (Auto) 14.1 L, Cherry % (Auto) 13.4 H, Eos % (Auto) [...] Chronic/degenerative changes as described above. Reading Location: [id number] Cervical Spine CT 11/26/24 17:01 IMPRESSION: No acute traumatic findings. Chronic/degenerative changes as described above. Reading Location: [id number] Chest X-Ray 11/26/24 17:10 IMPRESSION: No radiographic evidence of an acute cardiopulmonary process Reading Location: [id number] Charges/Coding Visit Charges Inpatient E&M: 93890 Subs Hosp L2 11/28/24 1657 <Electronically signed by Paul Lauren MD> Cosigner Signature (if applicable): CC: ~ Signed [facility] Work Phone: 1([phone]) 110-503909-29-2025 Radiology Diagnostic study [facility]09-28-2025 Progress note Author Paul Lauren [facility] Note Date/Time November 27, 2024 11:52am [facility] Medical Records Department [address] [place] [address] Progress Note - Hospitalist 11/27/24 0847 MR#: [id number] Acct: [id number] Name: AYAN CARRILLO Rep #:[id number] : 1945 79 From: Paul Ngo PCP: Dr. Brayan Thompson MD Status :ADM HERSON Location: [place] [id number] Reason for Visit Chief Complaint: Generalized Weakness, [...] 79.7 H, Lymph % (Auto) 9.7 L, Cherry %(Auto) 9.2, Eos % (Auto) 0.8, Baso [...] Sl. Cloudy, Urine pH 6.5, Ur Specific Jupiter 1.015, Urine Protein 15 H, Urine Glucose [...] 70.8 H, Lymph % (Auto) 14.1 L, Cherry % (Auto) 13.4 H, Eos % (Auto) [...] Chronic/degenerative changes as described above. Reading Location: [id number] Cervical Spine CT 11/26/24 17:01 IMPRESSION: No acute traumatic findings. Chronic/degenerative changes as described above. Reading Location: [id number] Chest X-Ray 11/26/24 17:10 IMPRESSION: No radiographic evidence of an acute cardiopulmonary process Reading Location: [id number] Rhythm Strip Rhythm Strip: Sinus Rhythm Rate: [...] T4 after 6 weeks. 7. CAD; s/p [place] -on baby aspirin. If anemia will be [...] 79.7 H, Lymph % (Auto) 9.7 L, Cherry %(Auto) 9.2, Eos % (Auto) 0.8, Baso [...] Sl. Cloudy, Urine pH 6.5, Ur Specific Jupiter 1.015, Urine Protein 15 H, Urine Glucose [...] 70.8 H, Lymph % (Auto) 14.1 L, Cherry % (Auto) 13.4 H, Eos % (Auto) [...] Chronic/degenerative changes as described above. Reading Location: [facility] Cervical Spine CT 11/26/24 17:01 IMPRESSION: No acute traumatic findings. Chronic/degenerative changes as described above. Reading Location: [facility] Chest X-Ray 11/26/24 17:10 IMPRESSION: No radiographic evidence of an acute cardiopulmonary process Reading Location: [id number] Charges/Coding Visit Charges Inpatient E&M: 04356 Subs Hosp L2 11/27/24 1140 <Electronically signed [...] Chronic/degenerative changes as described above. Reading Location: [facility] Cervical Spine CT 11/26/24 17:01 IMPRESSION: No acute traumatic findings. Chronic/degenerative changes as described above. Reading Location: [facility] Chest X-Ray 11/26/24 17:10 IMPRESSION: No radiographic evidence of an acute cardiopulmonary process Reading Location: [id number] 11/27/24 1152<Electronically signed by Paul Lauren MD> Cosigner Signature (if applicable): cc: ~* Signed [facility] Work Phone: 1([phone]) 755-835109-28-2025 History and physical note Author Reynaldo Nguyen [facility] Note Date/Time November 27, 2024 6:39am [facility] Medical Records Department [address] [place] [address] H&P Exam - Hospitalist 11/26/242013 MR#: [id number] Acct: [id number] Name: AYAN CARRILLO Rep #:[id number] : 1945 79 From: Reynaldo Dickey DO PCP: Dr. Brayan Thompson MD Status :ADM HERSON Location: [facility] [id number] HPI - General General Date of Admission: 11/26/24 Date of Service: 11/26/24 Chief Complaint: Generalized Weakness, Fall and Head Injury. HPI Narrative AYAN CARRILLO, is a 79 F with a past medical history of essential hypertension; on carvedilol twice daily, hyperlipidemia; on atorvastatin, hypothyroidism; on levothyroxine, morbid (class III) obesity; with BMI 41.3 this admission, CAD; s/p [place], PAF; on diltiazem and apixaban twice daily, GERD; on omeprazole and OA who presents to [facility] ER complaining of generalized weakness with [...] states she was recently seen by her pre wave assembler who felt her carvedilol dose was too [...] expected to be less than [address] [facility] Medical History (Updated 11/27/24 @ 00:[address] Stephanie Kincaid, ) Morbid obesity with BMI of 40.0-44.9, adult Hypothyroidism GERD (gastroesophageal reflux disease) GI bleed Atrial fibrillation Hypertension Myocardial infarction Obesity Essential (primary) hypertension Atherosclerotic heart disease of [place] coronary artery without angina pectoris Hyperlipidemia GERD [...] 79.7 H, Lymph % (Auto) 9.7 L, Cherry %(Auto) 9.2, Eos % (Auto) 0.8, Baso [...] Sl. Cloudy, Urine pH 6.5, Ur Specific Jupiter 1.015, Urine Protein 15 H, Urine Glucose [...] Chronic/degenerative changes as described above. Reading Location: [facility] Cervical Spine CT 11/26/24 17:01 IMPRESSION: No acute traumatic findings. Chronic/degenerative changes as described above. Reading Location: [facility] Chest X-Ray 11/26/24 17:10 IMPRESSION: No radiographic evidence of an acute cardiopulmonary process Reading Location: [id number] Assessment & Plan Assessment/Plan (1) Frequent falls: [...] under observation status. Give acetaminophen prn for hweh-st-ujiwylwd (level 1-5/10) pain or fever. Give oxycodone [...] levothyroxine and check TSH. 7. CAD; s/p [place] - Noted. 8. GERD; on omeprazole - Maintain PPI. 9. OA - We will follow pain regimen and scales outlined in #1. 10. DVT prophylaxis - Patient already on apixaban for #2 which will be reluctantly continued for now. Total time: Approximately (but not less than) 70 minutes. Charges/Coding Visit Charges OBSV E&M: 97006 Observ/hosp same date L2 11/27/24 0639 <Electronically signed by Reynaldo Oliva DO> Cosigner Signature (if applicable): CC: Dr. Brayan Thompson MD; Dr. Reynaldo Oliva DO~ Signed [facility] Work Phone: 1([phone]) 219-218609-28-2025 Discharge summary Author Stephanie [facility] Note Date/Time November 27, 2024 12:49am [facility] Medical Records Department [address] [place] [address] Emergency Department Summary 11/26/24 MR#: [id number] Acct: [id number] Name: AYAN CARRILLO Rep #:[id number] : 1945 79 From: Stephanie Solomon PCP: Dr. Brayan Thompson MD Status :ADM HERSON Location: [address] History of Present Illness Chief Complaint: [...] week. Denies any fevers or acute cough [facility] Medical History (Updated 11/27/24 @ 00:[address] Stephanie Kincaid, DO) Morbid obesity with BMI of 40.0-44.9, adult Hypothyroidism GERD (gastroesophageal reflux disease) GI bleed Atrial fibrillation Hypertension Myocardial infarction Obesity Essential (primary) hypertension Atherosclerotic heart disease of [place] coronary artery without angina pectoris Hyperlipidemia GERD [...] 79.7 H Lymph % (Auto) 9.7 L Cherry % (Auto) 9.2 Eos % (Auto) 0.8 [...] Sl. Cloudy Urine pH 6.5 Ur Specific Jupiter 1.015 Urine Protein 15 H Urine Glucose [...] (Auto) Neut % (Auto) Lymph % (Auto) Cherry % (Auto) Eos % (Auto) Baso % [...] Color Urine Clarity Urine pH Ur Specific Jupiter Urine Protein Urine Glucose (UA) Urine Ketones [...] Chronic/degenerative changes as described above. Reading Location: [facility] Cervical Spine CT 11/26/24 17:01 IMPRESSION: No acute traumatic findings. Chronic/degenerative changes as described above. Reading Location: [facility] Chest X-Ray 11/26/24 17:10 IMPRESSION: No radiographic evidence of an acute cardiopulmonary process Reading Location: [id number] Rhythm Strip Rhythm Strip: Sinus Rhythm Rate: [...] without concussion, Generalized weakness, Current use of emt intermediate anticoagulation Disposition Disposition: Acute Care Hospital [facility] Discharge Date/Time: 11/26/24 21:24 What to do if you have Problems For any increased pain, shortness of breath, bleeding, nausea or vomiting, chestpain, or any unexpected problems, contact your Primary Care Provider. Call [facility] ([phone]) or report to the closest Emergency Room. Call 911 if necessary. 11/27/24 0049 <Electronically signed by Stephanie Kincaid DO> Cosigner Signature (if applicable): CC: Dr. Brayan Thompson MD ~ Signed [facility] Work Phone: 1(166) 376-169909-27-2025 Radiology Diagnostic study [facility]09-27-2025 Radiology Diagnostic study [facility]09-27-2025 Radiology Diagnostic study [facility] 11-26-2024 Discharge summary Author Stephanie [facility] Note Date/Time November 27, 2024 12:49am [facility] Medical Records Department [address] [place] [address] Emergency Department Summary 11/26/24 MR#: [id number] Acct: [id number] Name: AYAN CARRILLO Rep #:[id number] : 1945 79 From: Stephanie Solomon PCP: Dr. Brayan Thompson MD Status :ADM HERSON Location: [place] [address] HPI History of Present Illness Chief Complaint: [...] week. Denies any fevers or acute cough [facility] Medical History (Updated 11/27/24 @ 00:[address] Stephanie Kincaid, DO) Morbid obesity with BMI of 40.0-44.9, adult Hypothyroidism GERD (gastroesophageal reflux disease) GI bleed Atrial fibrillation Hypertension Myocardial infarction Obesity Essential (primary) hypertension Atherosclerotic heart disease of [place] coronary artery without angina pectoris Hyperlipidemia GERD [...] 79.7 H Lymph % (Auto) 9.7 L Cherry % (Auto) 9.2 Eos % (Auto) 0.8 [...] Sl. Cloudy Urine pH 6.5 Ur Specific Jupiter 1.015 Urine Protein 15 H Urine Glucose [...] (Auto) Neut % (Auto) Lymph % (Auto) Cherry % (Auto) Eos % (Auto) Baso % [...] Color Urine Clarity Urine pH Ur Specific Jupiter Urine Protein Urine Glucose (UA) Urine Ketones [...] Chronic/degenerative changes as described above. Reading Location: [facility] Cervical Spine CT 11/26/24 17:01 IMPRESSION: No acute traumatic findings. Chronic/degenerative changes as described above. Reading Location: [facility] Chest X-Ray 11/26/24 17:10 IMPRESSION: No radiographic evidence of an acute cardiopulmonary process Reading Location: [id number] Rhythm Strip Rhythm Strip: Sinus Rhythm Rate: [...] without concussion, Generalized weakness, Current use of emt intermediate anticoagulation Disposition Disposition: Acute Care Hospital [facility] Discharge Date/Time: 11/26/24 21:24 What to do if you have Problems For any increased pain, shortness of breath, bleeding, nausea or vomiting, chestpain, or any unexpected problems, contact your Primary Care Provider. Call [facility] ([phone]) or report to the closest Emergency Room. Call 911 if necessary. 11/27/24 0049 <Electronically signed by Stephanie Kincaid DO> Cosign Signature (if applicable): CC: Dr. Brayan Thompson MD ~ Signed [facility] Work Phone: 1(561) 252-777108-27-2025 [facility]08-27-2025 Consult note [facility] Medical Records Department [address] [place] [address] Counseling Note - Pharmacy 10/26/24 1505 MR#: [id number] Acct: [id number] Name: AYAN CARRILLO Rep #:[id number] : 1945 79 From: Ladonna Duval PCP: Dr. Brayan Thompson MD Status :ADM HERSON Y Location: [address] Med Reconciliation Pharmacy Service has performed [...] Signature (if applicable): Date CC: ~ Signed [facility]08-27-2025 Discharge summary [facility] Medical Records Department [address] [place] [address] Instructions for Home/Discharge Instructions 10/26/24 1416 MR#: [id number] Acct: [id number] Name: AYAN CARRILLO Rep #:[id number] : 1945 79 From: Seth draper MD [...] MD; Dr. Aranza Little MD ~ Signed [facility]08-26-2025 History and physical note Author Aranza Little [facility] Note Date/Time October 25, 2024 5: 30pm [facility] Medical Records Department [address] [place] [address] H&P Exam - Hospitalist 10/25/24 1717 MR#: [id number] Acct: [id number] Name: AYAN CARRILLO Rep #:[id number] : 1945 79 From: Aranza Little MD PCP: Dr. Brayan Thompson MD Status :ADM HERSON Location: [place] [id number] HPI - General General Date of Admission: 10/25/24 Date of Service: 10/25/24 Chief Complaint: Chest pain HPI Narrative AYAN CARRILLO, is a 79-year-old female history of hypothyroidism, hypertension, A-fib, GERD presented [facility] ED 10/25/2024 due to chest pressure [...] happens whenshe has not moved around much [facility] Medical History (Updated 10/25/24 @ 16:16 by Mindy Guadalupe) Atherosclerotic heart disease of [place] coronary artery without angina pectoris Atrial fibrillation [...] 77.1 H, Lymph % (Auto) 13.1 L, Cherry % (Auto) 7.9, Eos % (Auto) 1.1, [...] significant change since last exam. Reading Location: [facility] Assessment & Plan Assessment/Plan (1) Chest pain: [...] Little MD Charges/Coding Visit Charges Inpatient E&M: 56772 Init Hosp L2 10/25/24 1730 <Electronically signed by Aranza Little MD> Cosigner Signature (if applicable): CC: Dr. Brayan Thompson MD; Dr. Aranza Little MD~ Signed [facility] Work Phone: 1(790) 435-445808-26-2025 Discharge summary Author Jaylen Jack [facility] Note Date/Time October 25, 2024 4: 21pm [facility] Medical Records Department [address] [place] [address] Emergency Department Summary 10/25/24 MR#: [id number] Acct: [id number] Name: AYAN CARRILLO Rep #:[id number] : 1945 79 From: Jaylen Solomon PCP: Dr. Brayan Thompson MD Status :REG ER Location: ED HPI History of Present Illness Chief Complaint: Chest Pain PFSH [facility] Medical History Myocardial infarction Obesity Essential (primary) hypertension Atherosclerotic heart disease of [place] coronary artery without angina pectoris Hyperlipidemia GERD [...] to PCU This note was generated with openPeople dictation software. It may contain incorrectwords, spelling, [...] 77.1 H Lymph % (Auto) 13.1 L Cherry % (Auto) 7.9 Eos % (Auto) 1.1 [...] significant change since last exam. Reading Location: [facility] Discharge Plan Triage Chief Complaint: Chest Pain [...] Care Physician,No Primary [Non-Staff] - Print Language: Polish What to do if you have Problems For any increased pain, shortness of breath, bleeding, nausea or vomiting, chestpain, or any unexpected problems, contact your Primary Care Provider. Call [facility] ([phone]) or report to the closest Emergency Room. Call 911 if necessary. 10/25/24 1621 <Electronically signed by Jaylen Jack DO> Cosigner Signature (if applicable): CC: Dr. Brayan Thompson MD ~ Signed [facility] Work Phone: 1(634) 332-718808-26-2025 History and physical note [facility] Medical Records Department [address] [place] [address] H&P Exam - Hospitalist 10/25/24 1717 MR#: [id number] Acct: [id number] Name: AYAN CARRILLO Rep #:[id number] : 1945 79 From: Aranza Little MD PCP: Dr. Brayan Thompson MD Status :ADM HERSON Location: PCU [id number] HPI - General General Date of Admission: 10/25/24 Date of Service: 10/25/24 Chief Complaint: Chest pain HPI Narrative AYAN CARRILLO, is a 79-year-old female history of hypothyroidism, hypertension, A-fib, GERD presented [facility] ED 10/25/2024 due to chest pressure [...] happens whenshe has not moved around much [facility] [facility] Medical History (Updated 10/25/24 @ 16:16 by Mindy Guadalupe) Atherosclerotic heart disease of [place] coronary artery without angina pectoris Atrial fibrillation [...] 77.1 H, Lymph % (Auto) 13.1 L, Cherry % (Auto) 7.9, Eos % (Auto) 1.1, Baso % (Auto) 0.3, Absolute Neuts (auto) 5.1, Absolute Lymphs (auto) 0.86, Nucleated RBC % 0, Sodium 139, Potassium 4.2, [id number], Carbon Dioxide 25.4, Anion Gap 10, BUN [...] significant change since last exam. Reading Location: [id number] Assessment & Plan Assessment/Plan (1) Chest pain: [...] Little MD Charges/Coding Visit Charges Inpatient E&M: 59772 Init Hosp L2 10/25/24 1730 Cosigner Signature (if applicable): CC: Dr. Brayan Thompson MD; Dr. Aranza Little MD~ Signed [facility]08-26-2025 Discharge summary [facility] Medical Records Department [address] [place] [address] Emergency Department Summary 10/25/24 MR#: [id number] Acct: [id number] Name: AYAN CARRILLO Rep #:[id number] : 1945 79 From: Jaylen Solomon PCP: Dr. Brayan Thompson MD Status :REG ER Location: ED HPI History of Present Illness Chief Complaint: [facility] Medical History Myocardial infarction Obesity Essential (primary) hypertension Atherosclerotic heart disease of [place] coronary artery without angina pectoris Hyperlipidemia GERD [...] Cardiology (Dr. Franco), Internal Medicine (Dr. Little) [facility] Narrative: The patient was initially [...] to PCU This note was generated with openPeople dictation software. It may contain incorrectwords, spelling, [...] 77.1 H Lymph % (Auto) 13.1 L Cherry % (Auto) 7.9 Eos % (Auto) 1.1 [...] significant change since last exam. Reading Location: [id number] Discharge Plan Triage Chief Complaint: Chest Pain [...] Care Physician,No Primary [Non-Staff] - Print Language: Polish What to do if you have Problems For any increased pain, shortness of breath, bleeding, nausea or vomiting, chestpain, or any unexpected problems, contact your Primary Care Provider. Call [facility] ([phone]) or report tothe closest Emergency Room. Call 911 if necessary. 10/25/24 1621 Cosigner Signature (if applicable): CC: Dr. Brayan Thompson MD ~ Signed [facility]08-26-2025 Radiology Diagnostic study note [facility] Imaging Services [address] [place], [place] [address] Chest 1 View (Portable) MR#: [id number] Acct: [id number] Name: AYAN CARRILLO Rep #: [id number] : 1945 F 79 From: Philipp Paz MD PCP: Dr. Brayan Thompson MD Status: REG ER Study:Chest 1 View (Portable) Date of Exam: 10/25/24 Exam# [id number] Ordering Dr: Rod Jack DO PROCEDURE: CHEST [...] significant change since last exam. Reading Location: [id number] CC: Dr. Brayan Thompson MD; Dr. Jaylen Jack DO ~ Business Liaison Officer: Signed [facility]08-26-2025 Discharge summary Author Jaylen Jack [facility] Note Date/Time October 25, 2024 4: 21pm [facility] Medical Records Department [address] [place] [address] Emergency Department Summary 10/25/24 MR#: [id number] Acct: [id number] Name: AYAN CARRILLO Rep #:[id number] : 1945 79 From: Jaylen Solomon PCP: Dr. Brayan Thompson MD Status :REG ER Location: ED HPI History of Present Illness Chief Complaint: Chest [facility] Medical History Myocardial infarction Obesity Essential (primary) hypertension Atherosclerotic heart disease of [place] coronary artery without angina pectoris Hyperlipidemia GERD [...] reviewed, Vital signs reviewed Constitutional: please see [facility] HENT: MMM Eyes: Pupils equal round [...] MEDICAL DECISION MAKING: Chief Complaint: please see [facility] External records reviewed: Reviewed prior cardiovascular testing: Reviewed echocardiogram from October 2023: Showed ejection fraction of 65. Factors affecting care: as per HPI Social determinants of health: Denies illicit drug use A-fib on Eliquis History obtained from others: EMS Consults: Cardiology (Dr. Franco), Internal Medicine (Dr. Little) [facility] Narrative: The patient was initially [...] to PCU This note was generated with openPeople dictation software. It may contain incorrectwords, spelling, [...] 77.1 H Lymph % (Auto) 13.1 L Cherry % (Auto) 7.9 Eos % (Auto) 1.1 [...] significant change since last exam. Reading Location: [facility] Discharge Plan Triage Chief Complaint: Chest Pain [...] Care Physician,No Primary [Non-Staff] - Print Language: Polish What to do if you have Problems For any increased pain, shortness of breath, bleeding, nausea or vomiting, chestpain, or any unexpected problems, contact your Primary Care Provider. Call [facility] ([phone]) or report to the closest Emergency Room. Call 911 if necessary. 10/25/24 1621 <Electronically signed by Jaylen Jack DO> Cosigner Signature (if applicable): CC: Dr. Brayan Thompson MD ~ Signed [facility] Work Phone: 1(227) 149-560508-22-2025 Radiology Diagnostic study note [facility] Imaging Services [address] [place] [address] Chest 1 View (Portable) MR#: [id number] Acct: [id number] Name: AYAN CARRILLO Rep #: [id number] : 1945 F 79 From: Remi Chu MD PCP: Care Physician,No Primary Status: REG ER Study:Chest 1 View (Portable) Date of Exam: 10/21/24 Exam# [id number] Ordering Dr: Donovan Pierson DO PROCEDURE: CHEST [...] by the degree of osteopenia. Reading Location: [place] [address] CC: Dr. Donovan Pierson DO; No Primary Care Physician ~ Business Liaison Officer: Signed [facility]07-11-2025 Discharge summary [facility] Medical Records Department [address] [place] [address] Emergency Department Summary 09/09/24 MR#: [id number] Acct: [id number] Name: AYAN CARRILLO Rep #:[id number] : 1945 79 From: Donovan Solomon PCP: [...] Essential (primary) hypertension Atherosclerotic heart disease of [place] coronary artery without angina pectoris Hyperlipidemia GERD [...] 70.3 H Lymph % (Auto) 17.2 L Cherry % (Auto) 10.2 H Eos % (Auto) [...] IMPRESSION: No acute cardiopulmonary abnormality. Reading Location: [facility] Portable 1 view chest x-ray was [...] anormal sinus rhythm with arate of 64. VA interval, QRS interval, and QTc intervals were [...] 81 mg PO QHS Patient Comments: HEART [facility] meloxicam 15 mg tablet 15 mg PO DAILY atorvastatin 40 mg tablet 40 mg PO QHS Qty: 90 3RF omeprazole 20 mg capsule,delayed release(DR/EC) 20 mg PO DAILY Qty: 90 3RF Primary Care Provider: Lilly Fletcher Referrals: Lilly Fletcher MD [Primary Care Provider] - Print Language: Polish What to do if you have Problems For any increased pain, shortness of breath, bleeding, nausea or vomiting, chestpain, or any unexpected problems, contact your Primary Care Provider. Call [facility] ([phone]) or report tothe closest Emergency Room. Call [...] cc: Dr. Lilly Fletcher MD ~* Signed [facility]07-11-2025 Radiology Diagnostic study note [facility] Imaging Services [address] [place] [id number] Chest 1 View (Portable) MR#: [id number] Acct: [id number] Name: AYAN CARRILLO Rep #: [id number] : 1945 F 79 From: Josey Grider MD PCP: Dr. Lilly lFetcher MD Status: REG ER Study:Chest 1 View (Portable) Date of Exam: 09/09/24 Exam# [id number] Ordering Dr: Donovan Pierson DO PROCEDURE: CHEST 1 VIEW (PORTABLE) 09/09/2024 REASON FOR EXAM: CHEST PAIN TECHNIQUE: Frontal view of the chest. COMPARISON: Chest radiograph on 08/02/2024 FINDINGS: Hardware: There is a medical and scientific illustrator overlying the mediastinum, new from prior. Heart: [...] Fletcher MD; Dr. Donovan Pierson DO ~ Business Liaison Officer: Signed [facility]07-11-2025 Discharge summary Author Donovan Pierson [facility] Note Date/Time September 09, 2024 11:0 6pm [facility] Medical Records Department [address] [place] [address] Emergency Department Summary 09/09/24 MR#: [id number] Acct: [id number] Name: AYAN CARRILLO Rep #:[id number] : 1945 79 From: Donovan Solomon PCP: [...] Essential (primary) hypertension Atherosclerotic heart disease of [place] coronary artery without angina pectoris Hyperlipidemia GERD [...] 70.3 H Lymph % (Auto) 17.2 L Cherry % (Auto) 10.2 H Eos % (Auto) [...] IMPRESSION: No acute cardiopulmonary abnormality. Reading Location: [facility] Portable 1 view chest x-ray was [...] sinus rhythm with a rate of 64. VA interval, QRS interval, and QTc intervals were [...] 81 mg PO QHS Patient Comments: HEART [facility] meloxicam 15 mg tablet 15 mg PO DAILY atorvastatin 40 mg tablet 40 mg PO QHS Qty: 90 3RF omeprazole 20 mg capsule,delayed release(DR/EC) 20 mg PO DAILY Qty: 90 3RF Primary Care Provider: Lilly Fletcher Referrals: Lilly Fletcher MD [Primary Care Provider] - Print Language: Polish What to do if you have Problems For any increased pain, shortness of breath, bleeding, nausea or vomiting, chestpain, or any unexpected problems, contact your Primary Care Provider. Call [facility] ([phone]) or report to the closest Emergency Room. [...] vies follow-up with In outpatient setting. 09/09/24 4156<Electronically signed by Manny Clark DO> Cosigner Signature (if applicable): cc: Dr. Lilly Fletcher MD ~* Signed [facility] Work Phone: 1(191) 208-945706-16-2025 Evaluation note* Diagnosis Onset Date Resolution Status Admit Date Dizziness acute August 15 3:23pm ANTHONY (dyspnea on exertion) acute August 15, 2024 3:23pm Atherosclerotic heart diseas e of [place] coronary artery without angina pectoris chronic August 15, 2024 3:23pm Essential (primary) hypertension chr onic August 15, 2024 3:23pm Hyperlipidemia chronic August 15, 2024 3:23pm Dizziness acute September 05, 2024 3:54pm ANTHONY (dyspnea on exertion) acute September 05, 2024 3:54pm Atherosclerotic heart diseas e of [place] coronary artery without angina pectoris chronic September 05, 2024 3 :54pm Essential (primary) hypertension chr onic September 05, 2024 3:54pm Hyperlipidemia chronic September 05, 2024 3:54pm [facility] Work Phone: 1(698) 381-197806-16-2025 Evaluation note* Diagnosis Onset Date Resolution Status Admit Date Dizziness acute August 15 3:23pm ANTHONY (dyspnea on exertion) acute August 15, 2024 3:23pm Atherosclerotic heart diseas e of [place] coronary artery without angina pectoris chronic August 15, 2024 3:23pm Essential (primary) hypertension chr onic August 15, 2024 3:23pm Hyperlipidemia chronic August 15, 2024 3:23pm Dizziness acute September 05, 2024 3:54pm ANTHONY (dyspnea on exertion) acute September 05, 2024 3:54pm Atherosclerotic heart diseas e of [place] coronary artery without angina pectoris chronic September 05, 2024 3 :54pm Essential (primary) hypertension chr onic September 05, 2024 3:54pm Hyperlipidemia chronic September 05, 2024 3:54pm Chest pain acute October 25, 2 025 5:18pm [facility] Work Phone: 1(855) 490-611806-16-2025 Evaluation note* Diagnosis Onset Date Resolution Status Admit Date Dizziness acute August 15 3:23pm ANTHONY (dyspnea on exertion) acute August 15, 2024 3:23pm Atherosclerotic heart diseas e of [place] coronary artery without angina pectoris chronic July 3:23pm Essential (primary) hypertension chronic August 15, 2024 3:23pm Hyperlipidemia chronic August 15, 2024 3:23pm Dizziness acute September 05, 2024 3:54pm ANTHONY (dyspnea on exertion) acute September 05, 2024 3:54pm Atherosclerotic heart diseas e of [place] coronary artery without angina pectoris chronic August [...] atrial fibrillation acute November 26, 2024 8:27pm [facility] Work Phone: 1(981) 768-426406-03-2025 Discharge summary [facility] Medical Records Department [address] [place] [address] Emergency Department Summary 08/02/24 MR#: [id number] Acct: [id number] Name: AYAN CARRILLO Rep #:[id number] : 1945 79 From: Jaylen Solomon PCP: Dr. Lilly Fletcher MD Status:REG ER Location: ED HPI History of Present Illness Chief Complaint: Weakness [facility] Medical History (Updated 08/02/24 @ 06:[address] Jaylen Jack DO) Myocardial infarction Obesity Essential (primary) hypertension Atherosclerotic heart disease of [place] coronary artery without angina pectoris Hyperlipidemia GERD [...] Method Room Air Room Air Room Air [facility] Narrative Medical decision making narrative: HISTORY OF PRESENT ILLNESS: Chief complaint: Weakness, dizziness, lightheadedness Atrial female history of of CAD, [place] status post stent, hypertension, hyperlipidemia presents with multiple symptoms with diffuse weakness mostly in the lower extremities. Denies chest pain, shortnessof breath. Denies cough fever chills. Denies headache or recent falls. Denies syncope. Has abdominal pain. Denies urinary frequency urgency or dysuria. Denies diarrhea melena hematochezia. Denies focal weakness REVIEW OF SYSTEMS: Pertinent positives: Diffuse weakness, dizziness and lightheadedness Pertinent negatives: as per [facility] PHYSICAL EXAM: Nursing triage notes reviewed, Vital signs reviewed Constitutional: please see [facility] HENT: MMM Eyes: Pupils equal round [...] wall motionabnormalities Factors affecting care: As per [facility] Social determinants of health: none History obtained from others: Family Consults: none [facility] Narrative: Patient was initially hemodynamically [...] Discharge home This note was generated with openPeople dictation software. It may contain incorrectwords, spelling, [...] 72.1 H Lymph % (Auto) 16.3 L Cherry % (Auto) 9.1 Eos % (Auto) 1.5 [...] Sl. Cloudy Urine pH 6.0 Ur Specific Jupiter 1.020 Urine Protein 30 H Urine Glucose [...] evidence for acute brain abnormality. Reading Location: [place] [address] Chest X-Ray 08/02/24 04:55 IMPRESSION: Mild bilateral basilar atelectatic pulmonary changes. Reading Location: [place] [address] Discharge Plan Triage Chief Complaint: Weakness ED [...] an ultrasound of the heart(echocardiogram). Print Language: Polish What to do if you have Problems For any increased pain, shortness of breath, bleeding, nausea or vomiting, chestpain, or any unexpected problems, contact your Primary Care Provider. Call [facility] ([phone]) or report tothe closest Emergency Room. Call 911 if necessary. 08/02/24 0645 Cosigner Signature (if applicable): CC: Dr. Lilly Fletcher MD ~ Signed [facility]06-03-2025 Radiology Diagnostic study note [facility] Imaging Services [address] [place] [address] Chest 1 View (Portable) MR#: [id number] Acct: [id number] Name: GERARDOAYAN Kush Rep #: [id number] : 1945 F 79 From: Barbara Miranda MD PCP: Dr. Lilly Fletcher MD Status: REG ER Study:Chest 1 View (Portable) Date of Exam: 08/02/24 Exam# [id number] Ordering Dr: Rod Jack DO PROCEDURE: CHEST [...] bilateral basilar atelectatic pulmonary changes. Reading Location: [place] [address] CC: Dr. Lilly Fletcher MD; Dr. Jaylen Jack DO ~ Business Liaison Officer: Signed [facility]06-03-2025 Radiology Diagnostic study note [facility] Imaging Services [address] [place] [address] Brain/Head without Contrast MR#: [id number] Acct: [id number] Name: AYAN CARRILLO Rep #: [id number] : 1945 F 79 From: Barbara Miranda MD PCP: Dr. Lilly Fletcher MD Status: REG ER Study:Brain/Head without Contrast Date of Exa m: 08/02/24 Exam# [id number] Ordering Dr: Rod Jack DO PROCEDURE: BRAIN/HEAD [...] evidence for acute brain abnormality. Reading Location: [place] [address] CC: Dr. Lilly Fletcher MD; Dr. Jaylen Jack DO ~ Business Liaison Officer: Signed [facility]04-19-2025 Discharge summary [facility] Medical Records Department [address] [place] [address] Emergency Department Summary 06/18/24 MR#: [id number] Acct: [id number] Name: AYAN CARRILLO Rep #:[id number] : 1945 78 From: Jennifer MAJOR PCP: [...] pain, shortness of breath, palpitations or syncope. [facility] Medical History (Reviewed 08/10/23 @ 09:57 by Ginger Grace CONTROLLER REPAIRER AND TESTER, CONTROLLER REPAIRER [employer] TE[employer]-C) Obesity Essential (primary) hypertension Atherosclerotic heart disease of [place] coronary artery without angina pectoris Hyperlipidemia GERD [...] 71.1 H Lymph % (Auto) 18.1 L Cherry % (Auto) 9.1 Eos % (Auto) 1.0 [...] 71.1 H Lymph % (Auto) 18.1 L Cherry % (Auto) 9.1 Eos % (Auto) 1.0 [...] Primary Care Provider: Lilly Fletcher Referrals: Lilly Fltecher MD [Primary Care Provider] - Activity Restrictions/Additional Instructions: Follow-up with your pre wave assembler to address your low blood pressure. Keep a daily log. Ice and takeTylenol as needed. If symptoms worsen come back to theER. Print Language: Polish Disposition Disposition: Home, Self Care What to do if you have Problems For any increased pain, shortness of breath, bleeding, nausea or vomiting, chestpain, or any unexpected problems, contact your Primary Care Provider. Call [facility] ([phone]) or report tothe closest Emergency Room. Call 911 if necessary. 06/18/242157 Cosigner Signature (if applicable): 06/18/242158 CC: Dr. Lilly Fletcher MD ~ Signed [facility]04-19-2025 Discharge summary Author Jennifer Meléndez [facility] Note Date/Time June 18, 2024 9:5 9pm [facility] Medical Records Department [address] [place] [address] Emergency Department Summary 06/18/24 MR#: [id number] Acct: [id number] Name: AYAN CARRILLO Rep #:[id number] : 1945 78 From: Jennifer MAJOR PCP: [...] Last Filed: 06/18/24 21:58> PFSH Medical History (Reviewed 08/10/23 @ 09:57 by Ginger Grace CONTROLLER REPAIRER AND TESTER, CONTROLLER REPAIRER AND TESTER-C) Obesity Essential (primary) hypertension Atherosclerotic heart disease of [place] coronary artery without angina pectoris Hyperlipidemia GERD [...] (Reviewed 08/10/23 @ 09:57 by Ginger Grace CONTROLLER REPAIRER AND TESTER, CONTROLLER REPAIRER AND TESTER-C) History of cholecystectomy History of left heart [...] Oxygen Delivery Method Room Air Room Air [facility] <PEDRITO Delacruz - Last Filed: [...] 71.1 H Lymph % (Auto) 18.1 L Cherry % (Auto) 9.1 Eos % (Auto) 1.0 [...] Hair MD - Last Filed: 06/18/24 21:59> [facility] MDM Narrative Medical decision making narrative: 78-year-old [...] 71.1 H Lymph % (Auto) 18.1 L Cherry % (Auto) 9.1 Eos % (Auto) 1.0 [...] 81 mg PO QHS Patient Comments: HEART [facility] omeprazole 20 mg capsule,delayed release(DR/EC) 20 mg PO DAILY Qty: 90 3RF furosemide 40 mg tablet 40 mg PO DAILY Qty: 90 3RF lisinopril 20 mg tablet 20 mg PO BID Qty: 180 4RF Primary Care Provider: Lilly Fletcher Referrals: Lilly Fletcher MD [Primary Care Provider] - Activity Restrictions/Additional Instructions: Follow-up with your pre wave assembler to address your low blood pressure. Keep a daily log. Ice and take Tylenol as needed. If symptoms worsen come back to theER. Print Language: Polish Disposition Disposition: Home, Self Care What to do if you have Problems For any increased pain, shortness of breath, bleeding, nausea or vomiting, chestpain, or any unexpected problems, contact your Primary Care Provider. Call [facility] ([phone]) or report to the closest Emergency Room. Call 911 if necessary. 06/18/242157 <Electronically signed by Jennifer MAJOR> Cosigner Signature (if applicable): 06/18/242158 <Electronically signed by Jay Hair MD> CC: Dr. Lilly Fletcher MD ~ Signed [facility] Work Phone: Consult note Author Ladonna Duval [facility] Note Date/Time October 26, 2024 3: 56pm [facility] Medical Records Department [address] [place] [address] Counseling Note - Pharmacy 10/26/24 1505 MR#: [id number] Acct: [id number] Name: AYAN CARRILLO Rep #:[id number] : 1945 79 From: Ladonna Duval PCP: Dr. Brayan Thompson MD Status :ADM HERSON Y Location: [place] [address] Pharmacy [place] Med Reconciliation Pharmacy Service has performed discharge [...] Signature (if applicable): Date CC: ~ Signed [facility] Work Phone: Discharge summary Author Jaylen Jack [facility] Note Date/Time August 02, 2024 6:45a m [facility] Medical Records Department [address] [place] [address] Emergency Department Summary 08/02/24 MR#: [id number] Acct: [id number] Name: AYAN CARRILLO Rep #:[id number] : 1945 79 From: Jaylen Solomon PCP: Dr. Lilly Fletcher MD Status:REG ER Location: ED HPI History of Present Illness Chief Complaint: Weakness [facility] Medical History (Updated 08/02/24 @ 06:[address] Jaylen Jack, DO) Myocardial infarction Obesity Essential (primary) hypertension Atherosclerotic heart disease of [place] coronary artery without angina pectoris Hyperlipidemia GERD [...] Method Room Air Room Air Room Air [facility] Narrative Medical decision making narrative: HISTORY OF PRESENT ILLNESS: Chief complaint: Weakness, dizziness, lightheadedness Atrial female history of of CAD, [place] status post stent, hypertension, hyperlipidemia presents with [...] reviewed, Vital signs reviewed Constitutional: please see [facility] HENT: MMM Eyes: Pupils equal round [...] History obtained from others: Family Consults: none [facility] Narrative: Patient was initially hemodynamically [...] Discharge home This note was generated with bMobilizedation software. It may contain incorrectwords, spelling, and [...] 72.1 H Lymph % (Auto) 16.3 L Cherry % (Auto) 9.1 Eos % (Auto) 1.5 [...] Sl. Cloudy Urine pH 6.0 Ur Specific [place] 1.020 Urine Protein 30 H Urine Glucose [...] evidence for acute brain abnormality. Reading Location: [place] [address] Chest X-Ray 08/02/24 04:55 IMPRESSION: Mild bilateral basilar atelectatic pulmonary changes. Reading Location: [place] [address] Discharge Plan Triage Chief Complaint: Weakness ED [...] an ultrasound of the heart(echocardiogram). Print Language: Polish What to do if you have Problems For any increased pain, shortness of breath, bleeding, nausea or vomiting, chestpain, or any unexpected problems, contact your Primary Care Provider. Call [facility] ([phone]) or report to the closest Emergency Room. Call 911 if necessary. 08/02/24 0645 <Electronically signed by Jaylen Jack DO> Cosigner Signature (if applicable): CC: Dr. Lilly Fletcher MD ~ Signed [facility] Work Phone: Discharge summary Author Seth Kotsonis [facility] Note Date/Time October 26, 2024 2: 20pm [facility] Medical Records Department [address] [place] [address] Instructions for Home/Discharge Instructions 10/26/24 1416 MR#: [id number] Acct: [id number] Name: AYAN CARRILLO Rep #:[id number] : 1945 79 From: Seth draper MD [...] MD; Dr. Aranza Little MD ~ Signed [facility] Work Phone: evaluation note* Diagnosis Onset Date Resolution Status Atherosclerotic heart diseas e of [place] coronary artery without angina pectoris chronic Essential (primary) hypertension chronic Hyperlipidemia chronic [facility] Work Phone: evaluation noteNo assessment information available [facility] Work Phone: evaluation note* Diagnosis Onset Date Resolution Status ANTHONY (dyspnea on exertion) ac [place] Palpitations acute Atherosclerotic heart diseas e of [place] coronary artery without angina pectoris chronic Essential (primary) hypertension chronic Hyperlipidemia chronic [facility] Work Phone: evaluation note* Diagnosis Onset Date Resolution Status Atherosclerotic heart diseas e of warms [place] coronary artery without angina pectoris chronic Essential (primary) hypertension chronic Hyperlipidemia chronic Cystitis acute [facility] Work Phone: evaluation note* Diagnosis Onset Date Resolution Status Admit Date Dizziness acute August 15 3:23pm ANTHONY (dyspnea on exertion) acute August 15, 2024 3:23pm Atherosclerotic heart diseas e of [place] coronary artery without angina pectoris chronic August 15, 2024 3:23pm Essential (primary) hypertension chr onic August 15, 2024 3:23pm Hyperlipidemia chronic August 15, 2024 3:23pm [facility] Work Phone: History and physical note Author Reynaldo Nguyen [facility] Note Date/Time November 27, 2024 6:39am [facility] Medical Records Department [address] [place] [address] H&P Exam - Hospitalist 11/26/242013 MR#: [id number] Acct: [id number] Name: AAYN CARRILLO Rep #:[id number] : 1945 79 From: Reynaldo Dickey DO PCP: Dr. Brayan Thompson MD Status :ADM HERSON Location: MS3 [id number] [facility] - General General Date of Admission: 11/26/24 Date of Service: 11/26/24 Chief Complaint: Generalized Weakness, Fall and Head Injury. HPI Narrative AYAN CARRILLO, is a 79 F with a past medical history of essential hypertension; on carvedilol twice daily, hyperlipidemia; on atorvastatin, hypothyroidism; on levothyroxine, morbid (class III) obesity; with BMI 41.3 this admission, CAD; s/p [place], PAF; on diltiazem and apixaban twice daily, GERD; on omeprazole and OA who presents to [facility] ER complaining of generalized weakness with [...] states she was recently seen by her pre wave assembler who felt her carvedilol dose was too [...] expected to be less than [address] [facility] Medical History (Updated 11/27/24 @ 00:[address] Stephanie Kincaid, ) Morbid obesity with BMI of 40.0-44.9, adult Hypothyroidism GERD (gastroesophageal reflux disease) GI bleed Atrial fibrillation Hypertension Myocardial infarction Obesity Essential (primary) hypertension Atherosclerotic heart disease of [place] coronary artery without angina pectoris Hyperlipidemia GERD [...] 79.7 H, Lymph % (Auto) 9.7 L, Cherry %(Auto) 9.2, Eos % (Auto) 0.8, Baso [...] Sl. Cloudy, Urine pH 6.5, Ur Specific Jupiter 1.015, Urine Protein 15 H, Urine Glucose [...] Chronic/degenerative changes as described above. Reading Location: [facility] Cervical Spine CT 11/26/24 17:01 IMPRESSION: No acute traumatic findings. Chronic/degenerative changes as described above. Reading Location: [facility] Chest X-Ray 11/26/24 17:10 IMPRESSION: No radiographic evidence of an acute cardiopulmonary process Reading Location: [id number] Assessment & Plan Assessment/Plan (1) Frequent falls: [...] under observation status. Give acetaminophen prn for [id number]-peigpwby (level 1-5/10) pain or fever. Give oxycodone [...] levothyroxine and check TSH. 7. CAD; s/p [place] - Noted. 8. GERD; on omeprazole - Maintain PPI. 9. OA - We will follow pain regimen and scales outlined in #1. 10. DVT prophylaxis - Patient already on apixaban for #2 which will be reluctantly continued for now. Total time: Approximately (but not less than) 70 minutes. Charges/Coding Visit Charges OBSV E&M: 35089 Observ/hosp same date L2 11/27/24 0639 <Electronically signed by Reynaldo Oliva DO> Cosigner Signature (if applicable): CC: Dr. Brayan Thompson MD; Dr. Reynaldo Oliva DO~ Signed [facility] Work Phone: Hospital Discharge instructions Additional Instructions Your work up today showed no sign of heart attack. I think your chest pain is from GERD or acid reflux. Continue your home medication and I prescribed Carafate to take before each meal and at bedtime. Please follow-up with your primary care doctor.[facility] Work Phone: Hospital Discharge instructions Additional Instructions Follow-up with your pre wave assembler to address your low blood pressure. Keep a daily log. Ice and take Tylenol as needed. If symptoms worsen come back to the ER.[facility] Work Phone: Hospital Discharge instructions Additional [...] about repeating an ultrasound of the heart (echocardiogram).[facility] Work Phone: Progress note Author Paul Lauren [facility] Note Date/Time November 27, 2024 11:52am [facility] Medical Records Department [address] [place] [address] Progress Note - Hospitalist 11/27/24 0847 MR#: [id number] Acct: [id number] Name: AYAN CARRILLO Rep #:[id number] : 1945 79 From: Paul Ngo PCP: Dr. Brayan Thompson MD Status :ADM HERSON Location: [place] [address] Reason for Visit Chief Complaint: Generalized Weakness, [...] 79.7 H, Lymph % (Auto) 9.7 L, Cherry %(Auto) 9.2, Eos % (Auto) 0.8, Baso [...] Sl. Cloudy, Urine pH 6.5, Ur Specific Jupiter 1.015, Urine Protein 15 H, Urine Glucose [...] 70.8 H, Lymph % (Auto) 14.1 L, Cherry % (Auto) 13.4 H, Eos % (Auto) [...] Chronic/degenerative changes as described above. Reading Location: [facility] Cervical Spine CT 11/26/24 17:01 IMPRESSION: No acute traumatic findings. Chronic/degenerative changes as described above. Reading Location: [facility] Chest X-Ray 11/26/24 17:10 IMPRESSION: No radiographic evidence of an acute cardiopulmonary process Reading Location: [id number] Rhythm Strip Rhythm Strip: Sinus Rhythm Rate: [...] T4 after 6 weeks. 7. CAD; s/p [place] -on baby aspirin. If anemia will be [...] 79.7 H, Lymph % (Auto) 9.7 L, Cherry %(Auto) 9.2, Eos % (Auto) 0.8, Baso [...] Sl. Cloudy, Urine pH 6.5, Ur Specific Jupiter 1.015, Urine Protein 15 H, Urine Glucose [...] 70.8 H, Lymph % (Auto) 14.1 L, Cherry % (Auto) 13.4 H, Eos % (Auto) [...] Chronic/degenerative changes as described above. Reading Location: [facility] Cervical Spine CT 11/26/24 17:01 IMPRESSION: No acute traumatic findings. Chronic/degenerative changes as described above. Reading Location: [facility] Chest X-Ray 11/26/24 17:10 IMPRESSION: No radiographic evidence of an acute cardiopulmonary process Reading Location: [id number] Charges/Coding Visit Charges Inpatient E&M: 09135 Subs Hosp L2 11/27/24 1140 <Electronically signed [...] Chronic/degenerative changes as described above. Reading Location: [facility] Cervical Spine CT 11/26/24 17:01 IMPRESSION: No acute traumatic findings. Chronic/degenerative changes as described above. Reading Location: [id number] Chest X-Ray 11/26/24 17:10 IMPRESSION: No radiographic evidence of an acute cardiopulmonary process Reading Location: [id number] 11/27/24 1152<Electronically signed by Paul Lauren MD> Cosigner Signature (if applicable): cc: ~* Signed [facility] Work Phone: Progress note Author Paul Lauren [facility] Note Date/Time November 28, 2024 4:57pm [facility] Medical Records Department [address] [place] [address] Progress Note - Hospitalist 11/28/241651 MR#: [id number] Acct: [id number] Name: AYAN CARRILLO Rep #:[id number] : 1945 79 From: Paul Ngo PCP: Dr. Brayan Thompson MD Status :ADM HERSON Location: [place] [address] Reason for Visit Chief Complaint: Generalized Weakness, [...] 79.4 H, Lymph % (Auto) 7.3 L, Cherry %(Auto) 11.3 H, Eos % (Auto) 1.3, [...] Hypoventilation. Atelectasis left lung base. Reading Location: [facility] Rhythm Strip Rhythm Strip: Sinus Rhythm Rate: [...] T4 after 6 weeks. 7. CAD; s/p [place] -on baby aspirin. If anemia will be [...] 79.4 H, Lymph % (Auto) 7.3 L, Cherry %(Auto) 11.3 H, Eos % (Auto) 1.3, [...] 79.7 H, Lymph % (Auto) 9.7 L, Cherry %(Auto) 9.2, Eos % (Auto) 0.8, Baso [...] Sl. Cloudy, Urine pH 6.5, Ur Specific [place] 1.015, Urine Protein 15 H, Urine Glucose [...] 70.8 H, Lymph % (Auto) 14.1 L, Cherry % (Auto) 13.4 H, Eos % (Auto) [...] Chronic/degenerative changes as described above. Reading Location: [facility] Cervical Spine CT 11/26/24 17:01 IMPRESSION: No acute traumatic findings. Chronic/degenerative changes as described above. Reading Location: [facility] Chest X-Ray 11/26/24 17:10 IMPRESSION: No radiographic evidence of an acute cardiopulmonary process Reading Location: [id number] Charges/Coding Visit Charges Inpatient E&M: 02422 Subs Hosp L2 11/28/241656 <Electronically signed by Paul Lauren MD> Cosigner Signature (if applicable): CC: ~ Signed [facility] Work Phone: Progress note Author Paul Lauren [facility] Note Date/Time November 29, 2024 4:53pm [facility] Medical Records Department [address] [place] [address] Progress Note - Hospitalist 11/29/24 1641 MR#: [id number] Acct: [id number] Name: AYAN CARRILLO Rep #:[id number] : 1945 79 From: Paul Ngo PCP: Dr. Brayan Thompson MD Status :ADM HERSON Location: [place] [address] Reason for Visit Chief Complaint: Generalized Weakness, [...] T4 after 6 weeks. 7. CAD; s/p [place] -on baby aspirin. If anemia will be [...] 70.8 H, Lymph % (Auto) 14.1 L, Cherry % (Auto) 13.4 H, Eos % (Auto) [...] Chronic/degenerative changes as described above. Reading Location: [facility] Cervical Spine CT 11/26/24 17:01 IMPRESSION: No acute traumatic findings. Chronic/degenerative changes as described above. Reading Location: [facility] Chest X-Ray 11/26/24 17:10 IMPRESSION: No radiographic evidence of an acute cardiopulmonary process Reading Location: [id number] Charges/Coding Visit Charges Inpatient E&M: 37517 Subs Hosp L2 11/29/24 1648 <Electronically signed by Paul Lauren MD> Cosigner Signature (if applicable): CC: ~ Signed ADDENDUM by Dr. Paul Lauren MD on 11/29/24 at 1653 Addendum Carvedilol is held. 11/29/24 165<Electronically signed by Paul Lauren MD> Cosigner Signature (if applicable): cc: ~* Signed [facility] Work Phone: Reason for referral (narrative)No reason for referral information availableWPar[facility] Work Phone: Chief Complaint and Reason for Visit Chief Complaint 6 M FU CAD - ANGIOPLASTY 2016 CAD - ANGIOPLASTY 2016 INT LABS Reason for Visit Atherosclerotic hear t disease of [place] coronary artery without angina pectoris Essential (primary) hypertension Hyperlipidemia Chief Complaint chest pain Chief Complaint chest pain 6 M FU PALPITATIONS Reason for Visit ANTHONY (dyspnea on exer tion) Palpitations Atherosclerotic heart disease of [place] coronary artery without angina pectoris Essential (primary) hypertension Hyperlipidemia Chief Complaint chest pain 6 M FU PALPITATIONS ANTHONY Reason for Visit ANTHONY (dyspnea on exer tion) Palpitations Atherosclerotic heart disease of [place] coronary artery without angina pectoris Essential (primary) hypertension Hyperlipidemia Chief Complaint chest pain 6 M FU PALPITATIONS ANTHONY EORDERS Reason for Visit ANTHONY (dyspnea on exer tion) Palpitations Atherosclerotic heart disease of [place] coronary artery without angina pectoris Essential (primary) hypertension Hyperlipidemia Chief Complaint 6 M FU Reason for Visit Atherosclerotic hear t disease of [place] coronary artery without angina pectoris Essential (primary) hypertension Hyperlipidemia Chief Complaint 6 M FU CONCERN FOR UTI Reason for Visit Atherosclerotic hear t disease of [place] coronary artery without angina pectoris Essential (primary) [...] 15 3:23pm Atherosclerotic heart diseas e of [place] coronary artery without angina pectoris August 15, [...] 15 3:23pm Atherosclerotic heart diseas e of [place] coronary artery without angina pectoris August 15, 2024 3:23pm Essential (primary) hypertension August 152024 3:23pm Hyperlipidemia August 15, 2024 3:23 pm Dizziness September 05, 2024 3:54p m ANTHONY (dyspnea on exertion) September 05, 2024 3:54pm Atherosclerotic heart diseas e of [place] coronary artery without angina pectoris September 05, [...] 15 3:23pm Atherosclerotic heart diseas e of [place] coronary artery without angina pectoris August 15, 2024 3:23pm Essential (primary) hypertension August 152024 3:23pm Hyperlipidemia August 15, 2024 3:23 pm Dizziness September 05, 2024 3:54p m ANTHONY (dyspnea on exertion) September 05, 2024 3:54pm Atherosclerotic heart diseas e of [place] coronary artery without angina pectoris September 05, [...] 15 3:23pm Atherosclerotic heart diseas e of [place] coronary artery without angina pectoris August 15, 2024 3:23pm Essential (primary) hypertension August 152024 3:23pm Hyperlipidemia August 15, 2024 3:23 pm Dizziness September 05, 2024 3:54p m ANTHONY (dyspnea on exertion) September 05, 2024 3:54pm Atherosclerotic heart diseas e of [place] coronary artery without angina pectoris September 05, [...] August 03, 2020 1 :39pm Power of Counter Checker No August 03, 2020 1:39pm Advance Directive Response Recorded Date/ Time Advance Directives Yes October 25, 2015 5:48pm Living Will Yes October 12 2:43pm Power of Counter Checker Yes October 12 2:43pm Name of Medical Power of Counter Checker daughter October 12, 2021 2:43pm Advance Directive Response Recorded Date/ Time Name of Medical Power of Counter Checker daughter October 12, 2021 2:43pm Advance Directives Yes October 25, 2015 5:48pm Living Will Yes [place] [address], [address] 2 2:43pm Power of Counter Checker Yes October 12 022 2:43pm Advance Directive Response Recorded Date/ Time Name of Medical Power of Counter Checker daughter October 12, 2021 1:43pm Advance Directives Yes October 25, 2015 4:48pm Living Will Yes October 12 2 1:43pm Power of Counter Checker Yes October 12 022 1:43pm Advance Directive Response Recorded Date/ Time Advance Directives Yes October 25, 2015 4:48pm Living Will Yes October 12 2 1:43pm Power of Counter Checker Yes October 12 022 1:43pm Advance Directive Response Recorded Date/ Time Living Will Yes June 18, 2024 8:38pm Do you have a Healthcare Power of Counter Checker? Yes June 18, 2024 8:38pm Name of Medical Power of Counter Checker Cassandra June 18, 2024 8:38pm Advance Directives Yes October 25, 2015 5:48pm Advance Directive Response Recorded Date/ Time Living Will Yes June 18, 2024 8:38pm Do you have a Healthcare Power of Counter Checker? Yes June 18, 2024 8:38pm Name of Medical Power of Counter Checker Cassandra June 18, 2024 8:38pm Do you have a Healthcare Power of Counter Checker? Yes August 02, 2024 3:44am Advance Directives Yes October 25, 2015 5:48pm Advance Directive Response Recorded Date/ Time Living Will No July 15, 2023 9 :56pm Do you have a Healthcare Power of Counter Checker? No July 15, 2023 9:56pm Living Will Yes June 18, 2024 8:38pm Do you have a Healthcare Power of Counter Checker? Yes June 18, 2024 8:38pm Name of Medical Power of Counter Checker Cassandra June 18, 2024 8:38pm Do you have a Healthcare Power of Counter Checker? Yes August 02, 2024 3:44am Advance Directives Yes October 25, 2015 5:48pm Advance Directive Response Recorded Date/ Time Living Will No July 15, 2023 9 :56pm Do you have a Healthcare Power of Counter Checker? No July 15, 2023 9:56pm Living Will Yes June 18, 2024 8:38pm Do you have a Healthcare Power of Counter Checker? Yes June 18, 2024 8:38pm Name of Medical Power of Counter Checker Cassandra June 18, 2024 8:38pm Do you have a Healthcare Power of Counter Checker? Yes August 02, 2024 3:44am Do you have a Healthcare Power of Counter Checker? No September 09, 2024 8:09pm Advance Directives Yes October 25, 2015 5:48pm Advance Directive Response Recorded Date/ Time Living Will No July 15, 2023 9 :56pm Do you have a Healthcare Power of Counter Checker? No July 15, 2023 9:56pm Do you have a Healthcare Power of Counter Checker? No October 21, 2024 9:40am Do you have a Healthcare Power of Counter Checker? Yes August 02, 2024 3:44am Do you have a Healthcare Power of Counter Checker? No September 09, 2024 8:09pm Advance Directives Yes October 25, 2015 5:48pm Advance Directive Response Recorded Date/ Time Living Will No July 15, 2023 9 :56pm Do you have a Healthcare Power of Counter Checker? No July 15, 2023 9:56pm Do you have a Healthcare Power of Counter Checker? No October 21, 2024 9:40am Do you have a Healthcare Power of Counter Checker? No October 25, 2024 12:05pm Do you have a Healthcare Power of Counter Checker? Yes August 02, 2024 3:44am Do you have a Healthcare Power of Counter Checker? No September 09, 2024 8:09pm Advance Directives Yes October 25, 2015 5:48pm Advance Directive Response Recorded Date/ Time Living Will No July 15, 2023 9 :56pm Do you have a Healthcare Power of Counter Checker? No July 15, 2023 9:56pm Do you have a Healthcare Power of Counter Checker? No October 21, 2024 9:40am Do you have a Healthcare Power of Counter Checker? No October 25, 2024 5:43pm Do you have a Healthcare Power of Counter Checker? Yes August 02, 2024 3:44am Do you have a Healthcare Power of Counter Checker? No September 09, 2024 8:09pm Advance Directives Yes October 25, 2015 5:48pm Advance Directive Response Recorded Date/ Time Living Will No July 15, 2023 9 :56pm Do you have a Healthcare Power of Counter Checker? No July 15, 2023 9:56pm Do you have a Healthcare Power of Counter Checker? No October 21, 2024 9:40am Do you have a Healthcare Power of Counter Checker? No October 25, 2024 5:43pm Do you have a Healthcare Power of Counter Checker? Yes November 26, 2024 9:47pm Do you have a Healthcare Power of Counter Checker? Yes August 02, 2024 3:44am Do you have a Healthcare Power of Counter Checker? No September 09, 2024 8:09pm Advance Directives Yes October 25, 2015 5:48pm Advance Directive Response Recorded Date/ Time Living Will No July 15, 2023 9 :56pm Do you have a Healthcare Power of Counter Checker? No July 15, 2023 9:56pm Do you have a Healthcare Power of Counter Checker? No October 21, 2024 9:40am Do you have a Healthcare Power of Counter Checker? No October 25, 2024 5:43pm Do you have a Healthcare Power of Counter Checker? Yes November 26, 2024 9:47pm Do you have a Healthcare Power of Counter Checker? No September 09, 2024 8:09pm Advance Directives [...] Provider, Referrin g Provider Active Ginger Grace [employer], [employer] Attending Provider Active Team Status: Inactive Member Role Status Dates Dr. Lilly Fletcher MD Primary Care Provider Active Ginger Grace [employer], [employer] Attending Provider Active Team Status: Inactive Member [...] 2024 End: August 15, 2024 Kale Ansari [employer], [employer]-C Attending Provider Active S tart: August 15, [...] 2024 End: August 15, 2024 Kale Ansari [employer], [employer]-C Attending Provider Active S tart: August 15, 2024 End: August 15, 2024 Team Status: Inactive Member Role/Relationship Status Dates Dr. Lilly Fletcher MD Primary Care Provider Active Start: September 05, 2024 End: September 05, 2024 Dr. Lilly Fletcher MD Referring Provider Active Start: September 05, 2024 End: September 05, 2024 Kale Ansari [employer], [employer]-C Attending Provider Active S tart: September 05, [...] Active Start: August 29, 2024 Kale Ansari [employer], [employer]-C Attending Provider Active S tart: August 29, 2024 Kale Ansari [employer], [employer]-C Referring Provider Active S tart: August 29, 2024 Team Status: Inactive Member Role/Relationship Status Dates Dr. Lilly Fletcher MD Primary Care Provider Active Start: September 05, 2024 End: September 05, 2024 Dr. Lilly Fletcher MD Referring Provider Active Start: September 05, 2024 End: September 05, 2024 Kale Ansari [employer], [employer]ER [employer]-C Attending Provider Active S tart: September 05, [...] 2024 End: October 01, 2024 Kale Ansari [employer], [employer] RE[employer]ER [employer]-C Attending Provider Active S tart: October 01, 2024 End: October 01, 2024 Kale Ansari [employer], [employer]-C Referring Provider Active S tart: October 01, 2024 End: October 01, 2024 Team Status: Inactive Member Role/Relationship Status Dates No Primary Care Physician Primary Care Provider Active Start: October 14, 2024 End: October 14, 2024 No Primary Care Physician Referring Provider Active Start: October 14, 2024 End: October 14, 2024 Ginger Grace [employer], [employer]-C Attending Provider Active Start: October 14, 2024 [...] 2024 End: August 15, 2024 Dr. Lilly Flethcer MD Referring Provider Active Start: August 15, 2024 End: August 15, 2024 Kale Ansari [employer], [employer] Attending Provider Active S tart: August 15, 2024 End: August 15, 2024 Team Status: Active Member Role/Relationship Status Dates Dr. Lilly Fletcher MD Primary Care Provider Active Start: August 29, 2024 Kale Ansari [employer], [employer]-C Attending Provider Active S tart: August 29, 2024 Kale Ansari [employer], [employer]-C Referring Provider Active S tart: August 29, [...] 2024 End: October 01, 2024 Kale Ansari [employer], [employer]ER [employer]-C Attending Provider Active S tart: October 01, 2024 End: October 01, 2024 Kale Ansari [employer], [employer]-C Referring Provider Active S tart: October 01, 2024 End: October 01, 2024 Team Status: Inactive Member Role/Relationship Status Dates No Primary Care Physician Primary Care Provider Active Start: October 14, 2024 End: October 14, 2024 No Primary Care Physician Referring Provider Active Start: October 14, 2024 End: October 14, 2024 Ginger Grace [employer], [employer]ER [employer]-C Attending Provider Active Start: October 14, 2024 [...] 2024 End: August 15, 2024 Kale Ansari [employer], [employer] RE[employer]ER [employer]-C Attending physician Active Start: August 15, 2024 End: August 15, 2024 Team Status: Active Member Role/Relationship Status Dates Dr. Lilly Fletcher MD Primary care physician Active Start: August 29, 2024 Kale Ansari [employer], [employer] RE[employer]ER [employer]-C Attending physician Active Start: August 29, 2024 Kale Ansari [employer], [employer]-C Referring Provider Active S tart: August 29, 2024 Team Status: Active Member Role/Relationship Status Dates Dr. Lilly Fletcher MD Primary care physician Active Start: August 29, 2024 Dr. Elie Davis MD Attending physician Active Start: August 29, 2024 Kale Ansari [employer], [employer]ER [employer]-C Referring Provider Active S tart: August 29, 2024 Team Status: Inactive Member Role/Relationship Status Dates Dr. Lilly Fletcher MD Primary care physician Active Start: September 05, 2024 End: September 05, 2024 Dr. Lilly Fletcher MD Referring Provider Active Start: September 05, 2024 End: September 05, 2024 Kale Ansari [employer], [employer] REPA[employer]ER [employer]-C Attending physician Active Start: September 05, 2024 [...] 2024 End: October 01, 2024 Kale Ansari [employer], [employer] RE[employer]ER [employer]-C Attending physician Active Start: October 01, 2024 End: October 01, 2024 Kale Ansari [employer]ER [employer], [employer]ER [employer]-C Referring Provider Active S tart: October 01, 2024 End: October 01, 2024 Team Status: Inactive Member Role/Relationship Status Dates No Primary Care Physician Primary care physician Activ e Start: October 14, 2024 End: October 14, 2024 No Primary Care Physician Referring Provider Active Start: October 14, 2024 End: October 14, 2024 Ginger Grace [employer]OLLER REPAIRER [employer] TESTER, [employer]ER REPAIRER [employer] TESTER-C Attending physician Active Start: October 14, 2024 [...] 26, 2024 Dr. Reynaldo Oliva , DO Admitting [...] End: August 15, 2024 Kale Ansari NP [employer]OLLER REPAIRER [employer] TE[employer]-C Attending physician Active Start: August 15, 2024 End: August 15, 2024 Team Status: Active Member Role/Relationship Status Dates Dr. Lilly Fletcher MD Primary care physician Active Start: August 29, 2024 Kale H Roof CONTROLLER REPAIRER AND TESTER, CONTROLLER REPAIRER AND TESTER-C Attending physician Active Start: August 29, 2024 Kale Ansari CONTROLLER REPAIRER AND TESTER, CONTROLLER REPAIRER AND TESTER-C Referring Provider Active S tart: August 29, 2024 Team Status: Active Member Role/Relationship Status Dates Dr. Lilly Fletcher MD Primary care physician Active Start: August 29, 2024 Dr. Elie Davis MD Attending physician Active Start: August 29, 2024 Kale Ansari CONTROLLER REPAIRER AND TESTER, CONTROLLER REPAIRER AND TESTER-C Referring Provider Active S tart: August 29, 2024 Team Status: Inactive Member Role/Relationship Status Dates Dr. Lilly Fletcher MD Primary care physician Active Start: September 05, 2024 End: September 05, 2024 Dr. Lilly Fletcher MD Referring Provider Active Start: September 05, 2024 End: September 05, 2024 Kale Ansari CONTROLLER REPAIRER AND TESTER, CONTROLLER REPAIRER AND TESTER-C Attending physician Active Start: September 05, 2024 [...] 2024 End: October 01, 2024 Kale Ansari CONTROLLER REPAIRER AND TESTER, CONTROLLER REPAIRER AND TESTER-C Attending physician Active Start: October 01, 2024 End: October 01, 2024 Kale Ansari CONTROLLER REPAIRER AND TESTER, CONTROLLER REPAIRER AND TESTER-C Referring Provider Active S tart: October 01, 2024 End: October 01, 2024 Team Status: Inactive Member Role/Relationship Status Dates No Primary Care Physician Primary care physician Activ e Start: October 14, 2024 End: October 14, 2024 No Primary Care Physician Referring Provider Active Start: October 14, 2024 End: October 14, 2024 Ginger Grace CONTROLLER REPAIRER AND TESTER, CONTROLLER REPAIRER AND TESTER-C Attending physician Active Start: October 14, 2024 [...] 25, 2024 End: October 26, 2024 Dr. rAanza Little MD Nurse Practitioner Active Start: October [...] Practitioner Active Start: November 27, 2024 Dr. aPul Lauren MD Attending physician Active Start: November [...] section and content) DATE CREATED AUTHOR 01/07/2025 [facility] FOR RECORDS PERTAINING TO PATIENTS [...] BE BASED ON THE PRIMARY CLINICAL RECORDS. [employer] provides no warranty or guarantee of the accuracy or completeness of information in this document.
[2025-01-10 05:39] LABS: Hematocrit 35.1 % (37-47); Hemoglobin 11.1 g/dL (12.0-15.0); Immature Granulocytes Count 0.020 X10^3/uL (0.0-0.0); Mean Corp Hgb Conc 31.6 g/dL (32-36); Mean Corpuscular Volume 92.9 fL (81-99); Mean Platelet Vol. 9.8 fl (6.2-12.0); NRBC Flagged by Analyzer 0 % (0-5); Platelet Count 251 K/mm3 (150-450); RBC Distribution Width CV 14.7 % (11.6-14.6); RBC Distribution Width SD 50.4 fl (35.1-43.9); Red Blood Count 3.78 M/mm3 (4.2-5.4); White Blood Count 4.0 K/mm3 (4.4-11.0)
[2025-01-10 06:23] LABS: Anion Gap 14 (5-15); BUN 11 mg/dL (4-19); BUN/Creat Ratio 19.7 RATIO (10-20); Calcium,Total 9.5 mg/dL (7.6-11.0); Carbon Dioxide 19.5 mmol/L (21.0-32.0); Chloride 102 mmol/L (98-108); Estimated Creatinine Clearance 55.98 ml/min (50-250); Glucose 89 mg/dL (70-99); Potassium 4.1 mmol/L (3.3-5.1)
--- NOTE | 2025-01-10 08:36 | PCM.PN.HOSP ---
Reason for Visit Chief Complaint: Failure to thrive, dysuria Objective Data Objective Data Vital Signs: Vital Signs Temp Pulse Resp BP Pulse Ox O2 Del Method 96.8 F L 85 17 138/89 H 93 Room Air 01/10/25 03:05 01/10/25 03:05 01/10/25 03:05 01/10/25 03:05 01/10/25 03:05 01/10/25 04:16 Oxygen Delivery Method Room Air Weight: 197 lb 15.602 oz Body Mass Index (BMI) 39.9 Intake & Output: Intake and Output for Last 24 Hours 01/08/25 01/09/25 01/10/25 23:59 23:59 23:59 Intake Total 150 / 150 Output Total 100 / 100 Balance 50 / 50 Lab / Micro Data 01/10/25 04:57 01/10/25 04:57 Labs: Laboratory Results - last 24 hr 01/09/25 21:37: Urine Color Yellow, Urine Clarity Cloudy, Urine pH 9.0, Ur Specific [place] 1.015, Urine Protein 100 H, Urine Glucose (UA) Normal, Urine Ketones Negative, Urine Occult Blood 250 H, Urine Nitrite Negative, Urine Bilirubin Negative, Urine Urobilinogen Normal, Ur Leukocyte Esterase 500 H, Urine RBC 0-5 SEEN, Urine WBC 0-5 SEEN, Ur Squamous Epith Cells 0 SEEN, Amorphous Sediment 1+, Urine Bacteria 4+, Urine Mucus 0 SEEN 01/09/25 23:49: WBC 5.1, RBC 3.97 L, Hgb 11.4 L, Hct 36.3 L, MCV 91.4, MCH 28.7, MCHC 31.4 L, RDW Std Deviation 49.1 H, RDW Coeff of Cory 14.6, Plt Count 290, MPV 9.8, Immature Gran % (Auto) 0.400, Neut % (Auto) 66.3, Lymph % (Auto) 18.6 L, [place] % (Auto) 12.7 H, Eos % (Auto) 1.6, Baso % (Auto) 0.4, Absolute Neuts (auto) 3.4, Absolute Lymphs (auto) 0.94, Nucleated RBC % 0, Sodium 139, Potassium 4.1, Chloride 102, Carbon Dioxide 27.9, Anion Gap 9, BUN 16, Creatinine 0.72, Est GFR (MDRD) Non-Af 85, BUN/Creatinine Ratio 22.6 H, Glucose 107 H, Lactic Acid 1.2, Calcium 10.4 01/10/25 04:57: WBC 4.0 L, RBC 3.78 L, Hgb 11.1 L, Hct 35.1 L, MCV 92.9, MCH 29.4, MCHC 31.6 L, RDW Std Deviation 50.4 H, RDW Coeff of [place] 14.7 H, Plt Count 251, MPV 9.8, Immature Gran % (Auto) 0.500, Neut % (Auto) 64.3, Lymph % (Auto) 18.2 L, [place] % (Auto) 15.2 H, Eos % (Auto) 1.3, Baso % (Auto) 0.5, Absolute Neuts (auto) 2.6, Absolute Lymphs (auto) 0.72 L, Nucleated RBC % 0, Sodium 136, Potassium 4.1, Chloride 102, Carbon Dioxide 19.5 L, Anion Gap 14, BUN 11, Creatinine 0.57 L, Estim Creat Clear Calc 55.98, Est GFR (MDRD) Non-Af 92, BUN/Creatinine Ratio 19.7, Glucose 89, Calcium 9.5 Radiography Diagnostic Testing: Radiology Impression Abdomen/Pelvis CT 01/10/25 00:06 IMPRESSION: Mild bilateral basilar atelectatic pulmonary changes. Prior cholecystectomy. Hepatic steatosis. Small sliding hiatal hernia. Diffuse thickening of the stomach, probably gastritis. Right renal simple cyst measuring 2.3 cm. Prior hysterectomy. Moderate diffuse thickening of the bladder, probably cystitis. Bilateral urothelial thickening, probably an ascending urinary tract infection. Mild osteopenia. Mild diffuse spondylosis. Mild chronic compression fracture of T11 vertebral body. Prior appendectomy. Nonobstructing stones in the dependent aspect of the bladder with the largest measuring 3 mm. Chronic deformity of the left inferior pubic ramus, probably secondary to healed fracture. Uncomplicated colonic diverticulosis. Reading Location: [place] [address] Physical Exam Narrative Seen and examined. Patient complain of burning micturition, sometimes hematuria. She also has increased urgency but denies frequency but she is urinary incontinent on diaper. She denies any urinary catheterization in long-term but it was more like external urine catheter in recent past. She was recently treated with Macrobid for UTI. General: Alert, Oriented x3, Cooperative HEENT: Atraumatic, PERRLA, EOMI, Normocephalic. Oral: No Gingival or Mucosal Lesions/ Ulcerations Neck: Supple, No JVD, Negative Carotid Bruits Chest wall/Lungs: Air entry diminished in bilateral isabelle no flank pain g bases. No crepitation/rhonchi Cardiovascular: Irregular rate and rhythm, systolic murmur Abdomen: Bowel Sounds Present, Soft, Non Tender, Non-Distended : No dysuria. No renal angle tenderness. No suprapubic tenderness. Extremities: 1+ pedal/ankle edema, Capillary Refill Less than 3 Seconds Skin: No rashes, No breakdown Musculoskeletal: Right ankle deformity, chronic no Tenderness to Palpation of Joints or Extremities Neurological: Cranial nerves II-XII grossly intact, DTR 2+/4. No acute focal neurological deficit. Psych/Mental Status: Normal Affect, Appropriate. 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 transplanted heart: [place] heart Qualified Code(s): I25.10 - Atherosclerotic heart disease of [place] coronary artery without angina pectoris (8) Essential (primary) hypertension: (9) Hyperlipidemia: QUALIFIERS: Hyperlipidemia type: pure hypercholesterolemia Qualified Code(s): E78.00 - Pure hypercholesterolemia, unspecified; E78.0 - Pure hypercholesterolemia PLAN: Plan 79-year-old female admitted with burning pain during micturition, increased frequency, hematuria since Thursday last 3 days. Patient was discharged from [facility] due to insurance issues. Failure to thrive. 1. Failure to thrive, inability to do ADL: Patient is being admitted on PCU floor as MedSurg status. PT OT ordered. Case management consult for placement. Has chronic deformity of both feet 2. Urinary tract infection–patient has burning micturition and increased urgency. Sometimes hematuria. UA shows nitrite negative, LE 500, WBC 0-5, RBC 0-5 cells, bacteria 4+. Urine culture pending Rocephin 1 g IV every 24 hours, repeat CBC BMP in the morning, encourage fluids 3. Hypertension–continue routine antihypertensive therapy. Blood pressure is normal 4. Hyperlipidemia–continue statin medication 5. Chronic A-fib: On exam pulse is irregularly irregular. Heart rate is controlled. On diltiazem extended release 120 mg daily and Eliquis. 6. Hypothyroidism on levothyroxine 75 mcg daily. 7. History of low blood pressure/hypotension on midodrine. DVT prophylaxis–on Eliquis 5 mg twice daily. CODE STATUS–DNR Comfort Care arrest confirmed with patient and family Laboratory Results 01/09/25 21:37: Urine Color Yellow, Urine Clarity Cloudy, Urine pH 9.0, Ur Specific [place] 1.015, Urine Protein 100 H, Urine Glucose (UA) Normal, Urine Ketones Negative, Urine Occult Blood 250 H, Urine Nitrite Negative, Urine Bilirubin Negative, Urine Urobilinogen Normal, Ur Leukocyte Esterase 500 H, Urine RBC 0-5 SEEN, Urine WBC 0-5 SEEN, Ur Squamous Epith Cells 0 SEEN, Amorphous Sediment 1+, Urine Bacteria 4+, Urine Mucus 0 SEEN 01/09/25 23:49: WBC 5.1, RBC 3.97 L, Hgb 11.4 L, Hct 36.3 L, MCV 91.4, MCH 28.7, MCHC 31.4 L, RDW Std Deviation 49.1 H, RDW Coeff of Cory 14.6, Plt Count 290, MPV 9.8, Immature Gran % (Auto) 0.400, Neut % (Auto) 66.3, Lymph % (Auto) 18.6 L, [place] % (Auto) 12.7 H, Eos % (Auto) 1.6, Baso % (Auto) 0.4, Absolute Neuts (auto) 3.4, Absolute Lymphs (auto) 0.94, Nucleated RBC % 0, Sodium 139, Potassium 4.1, Chloride 102, Carbon Dioxide 27.9, Anion Gap 9, BUN 16, Creatinine 0.72, Est GFR (MDRD) Non-Af 85, BUN/Creatinine Ratio 22.6 H, Glucose 107 H, Lactic Acid 1.2, Calcium 10.4 01/10/25 04:57: WBC 4.0 L, RBC 3.78 L, Hgb 11.1 L, Hct 35.1 L, MCV 92.9, MCH 29.4, MCHC 31.6 L, RDW Std Deviation 50.4 H, RDW Coeff of [place] 14.7 H, Plt Count 251, MPV 9.8, Immature Gran % (Auto) 0.500, Neut % (Auto) 64.3, Lymph % (Auto) 18.2 L, [place] % (Auto) 15.2 H, Eos % (Auto) 1.3, Baso % (Auto) 0.5, Absolute Neuts (auto) 2.6, Absolute Lymphs (auto) 0.72 L, Nucleated RBC % 0, Sodium 136, Potassium 4.1, Chloride 102, Carbon Dioxide 19.5 L, Anion Gap 14, BUN 11, Creatinine 0.57 L, Estim Creat Clear Calc 55.98, Est GFR (MDRD) Non-Af 92, BUN/Creatinine Ratio 19.7, Glucose 89, Calcium 9.5 Charges/Coding Visit Charges Inpatient E&M: 32039 Subs Hosp L2
--- NOTE | 2025-01-10 09:53 | CASEMGMT ---
Social Work Primary Care Doctor: [facility] Speciality doctors: [facility] Insurance: [place] Medicare Advanced directives: Patient reported her daughter Cassandra is her POA. LNOK: Patient has 2 daughters and 1 son. The daughters live in [place] and the son lives in [place]. Living Situation: Patient lives at home and her daughter Minnie lives with her. There is a ramp into the home. ADL's/Prior level of functioning: Patient is limited with being to complete her ADL"s. Patient is not able to walk. Transportation: her daughter, granddaughter or hospital transport DME: WC, SC, RW, ramp longterm/home health history: [facility] and [facility] Support/Community Services: [facility] Health: none Substance abuse history: none Assessment: Patient lives at home and her daughter Minnie lives with her. There is a ramp into the home. Patient returned home Thursday from [facility]. Her insurance would no longer pay for her to be there. She is suppose to get HH. Her daughter Minnie works. Patient reported it takes 2 people for her to get up. She reported she was falling several times before going to [facility]. She reported she cannot walk. She reported she can sit in a WC and use her feet to move it. She reported she is not strong enough. SW spoke with her about applying for Medicaid and patient reported she would not to lose her house. SW explained Medicaid could pay for aids through [facility] or LTC. Patient reported SW could speak with her daughter Cassandra about it. PLAN: To be determined. Social Work to continue to follow. MILENA Castro
--- NOTE | 2025-01-10 10:15 | CASEMGMT ---
Social Work JANETH called the daughter Cassandra. Cassandra reported she cannot take her mother home. She reported they cannot lift her up. Cassandra reported she has considered applying for Medicaid. JANETH suggested assistance with the application using [employer] [facility]. Cassandra requested she be present. JANETH reached out to Eva to set up the meeting. MILENA Castro
[2025-01-10] MEDS: APIXABAN 5 MG TABLET PO ×2 (10:20→20:37)
--- NOTE | 2025-01-10 15:14 | CASEMGMT ---
Social Work Eva with [employer] meet with the patient and her daughter. Eva reported they don't want to apply at this time, but they are informed of the process and guidelines. MILENA Castro
[2025-01-10] MEDS: 0.9% Saline Lock 10 ML Syringe IV (20:39)
[2025-01-11] MEDS: MENTHOL 226.8 GM JAR 1 APPLIC TOPICAL ×2 (01:22→09:52)
[2025-01-11 01:30] VITALS: BP 162/81; PULSE 89; RESP 14; TEMP 37.1; O2SAT 95
[2025-01-11 05:30] VITALS: BP 140/92; PULSE 69; RESP 14; TEMP 36.6; O2SAT 95
[2025-01-11 05:49] LABS: Hematocrit 33.2 % (37-47); Hemoglobin 10.6 g/dL (12.0-15.0); Immature Granulocytes Count 0.030 X10^3/uL (0.0-0.0); Mean Corp Hgb Conc 31.9 g/dL (32-36); Mean Corpuscular Volume 90.7 fL (81-99); Mean Platelet Vol. 9.7 fl (6.2-12.0); NRBC Flagged by Analyzer 0 % (0-5); Platelet Count 272 K/mm3 (150-450); RBC Distribution Width CV 14.6 % (11.6-14.6); RBC Distribution Width SD 48.9 fl (35.1-43.9); Red Blood Count 3.66 M/mm3 (4.2-5.4); White Blood Count 5.1 K/mm3 (4.4-11.0)
[2025-01-11 07:05] LABS: Anion Gap 9 (5-15); BUN 14 mg/dL (4-19); BUN/Creat Ratio 20.1 RATIO (10-20); Calcium,Total 9.9 mg/dL (7.6-11.0); Carbon Dioxide 26.1 mmol/L (21.0-32.0); Chloride 101 mmol/L (98-108); Estimated Creatinine Clearance 55.98 ml/min (50-250); Glucose 115 mg/dL (70-99); Potassium 4.3 mmol/L (3.3-5.1)
[2025-01-11 08:26] VITALS: BP 148/109; PULSE 65; RESP 16; TEMP 36.8; O2SAT 97
--- NOTE | 2025-01-11 09:06 | CASEMGMT ---
Discharge Planning A list of SNF providers including quality and resource use data and consistent with the patient's preferred geographic region, medical needs, and insurance network was created in [employer] Guide. This list was provided to the SW. Sofie Panda Discharge Planning Asst.
--- NOTE | 2025-01-11 09:17 | CASEMGMT ---
Addendum entered by Cheryl Vizcarra 01/11/25 12:44: A SNF referral will be sent to [facility]. Original Note: Social Work A list of SNF providers including quality and resource use data and consistent with the patient's preferred geographic region, medical needs, and insurance network was created in [employer] Guide. This list was provided to the patient. Plan: SW will follow up for choices. MILENA Reyes
--- NOTE | 2025-01-11 09:18 | PCM.PN.HOSP ---
Reason for Visit Chief Complaint: Failure to thrive, dysuria Objective Data Objective Data Vital Signs: Vital Signs Temp Pulse Resp BP Pulse Ox O2 Del Method 98.2 F 65 16 148/109 H 97 Room Air 01/11/25 08:26 01/11/25 08:26 01/11/25 08:26 01/11/25 08:26 01/11/25 08:26 01/11/25 08:26 Oxygen Delivery Method Room Air Weight: 197 lb 15.602 oz Body Mass Index (BMI) 39.9 Intake & Output: Intake and Output for Last 24 Hours 01/09/25 01/10/25 01/11/25 23:59 23:59 23:59 Intake Total 350 / 350 50 / 50 Output Total 900 / 900 100 / 100 Balance -550 / -550 -50 / -50 Lab / Micro Data 01/11/25 05:17 01/11/25 05:17 Labs: Laboratory Results - last 24 hr 01/11/25 05:17: WBC 5.1, RBC 3.66 L, Hgb 10.6 L, Hct 33.2 L, MCV 90.7, MCH 29.0, MCHC 31.9 L, RDW Std Deviation 48.9 H, RDW Coeff of [place] 14.6, Plt Count 272, MPV 9.7, Immature Gran % (Auto) 0.600, Neut % (Auto) 68.5, Lymph % (Auto) 15.9 L, [place] % (Auto) 12.2 H, Eos % (Auto) 2.2, Baso % (Auto) 0.6, Absolute Neuts (auto) 3.5, Absolute Lymphs (auto) 0.81 L, Nucleated RBC % 0, Sodium 136, Potassium 4.3, Chloride 101, Carbon Dioxide 26.1, Anion Gap 9, BUN 14, Creatinine 0.72, Estim Creat Clear Calc 55.98, Est GFR (MDRD) Non-Af 85, BUN/Creatinine Ratio 20.1 H, Glucose 115 H, Calcium 9.9 Physical Exam Narrative Seen and examined. Patient complaining of hematuria. She still has burning micturition. Patient is admitted with burning micturition, sometimes hematuria. She also has increased urgency but denies frequency but she is urinary incontinent on diaper. She denies any urinary catheterization but it was more like external urine catheter in recent past. She was recently treated with Macrobid for UTI. Physical exam General: Alert, Oriented x3, Cooperative, looks better sitting upright in the chair HEENT: Atraumatic, PERRLA, EOMI, Normocephalic. Oral: No Gingival or Mucosal Lesions/ Ulcerations Neck: Supple, No JVD, Negative Carotid Bruits Chest wall/Lungs: Air entry diminished in bilateral isabelle no flank pain g bases. No crepitation/rhonchi Cardiovascular: Irregular rate and rhythm, systolic murmur Abdomen: Bowel Sounds Present, Soft, Non Tender, Non-Distended : Burning micturition. Hematuria on the canister at about 100 -150 mL. No renal angle tenderness. No suprapubic tenderness. Extremities: 1+ pedal/ankle edema, Capillary Refill Less than 3 Seconds Skin: No rashes, No breakdown Musculoskeletal: Right ankle deformity, chronic no Tenderness to Palpation of Joints or Extremities Neurological: Cranial nerves II-XII grossly intact, DTR 2+/4. No acute focal neurological deficit. Psych/Mental Status: Normal Affect, Appropriate. 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 transplanted heart: [place] heart Qualified Code(s): I25.10 - Atherosclerotic heart disease of [place] coronary artery without angina pectoris (8) Essential (primary) hypertension: (9) Hyperlipidemia: QUALIFIERS: Hyperlipidemia type: pure hypercholesterolemia Qualified Code(s): E78.00 - Pure hypercholesterolemia, unspecified; E78.0 - Pure hypercholesterolemia PLAN: Plan 79-year-old female admitted with burning pain during micturition, increased frequency, hematuria since Thursday last 3 days. Patient was discharged from [facility] due to insurance issues. Failure to thrive. 1. Failure to thrive, inability to do ADL: Patient is being admitted on PCU floor as MedSurg status. PT OT ordered. Case management consult for placement. Has chronic deformity of both feet 11/12 overall patient feels better sitting in the chair. 2. Urinary tract infection–patient has burning micturition and increased urgency. Sometimes hematuria. UA shows nitrite negative, LE 500, WBC 0-5, RBC 0-5 cells, bacteria 4+. Urine culture pending Rocephin 1 g IV every 24 hours, repeat CBC BMP in the morning, encourage fluids 01/11: Urine culture is still pending. CT reviewed shows cystitis changes in the bladder with nonobstructing stones in the dependent bladder largest measuring 3 mm. Bilateral urothelial thickening probably ascending urinary tract infection. No renal mass or renal calculi. No hydronephrosis. Urologist consulted and discussed Dr. Stephens. He will see the patient. Continue antibiotic 3. Hypertension–continue routine antihypertensive therapy. Blood pressure is normal 4. Hyperlipidemia–continue statin medication 5. Chronic A-fib: On exam pulse is irregularly irregular. Heart rate is controlled. On diltiazem extended release 120 mg daily and Eliquis. 6. Hypothyroidism on levothyroxine 75 mcg daily. 7. History of low blood pressure/hypotension on midodrine. DVT prophylaxis–on Eliquis 5 mg twice daily. CODE STATUS–DNR Comfort Care arrest confirmed with patient and family Laboratory Results 01/11/25 05:17: WBC 5.1, RBC 3.66 L, Hgb 10.6 L, Hct 33.2 L, MCV 90.7, MCH 29.0, MCHC 31.9 L, RDW Std Deviation 48.9 H, RDW Coeff of [place] 14.6, Plt Count 272, MPV 9.7, Immature Gran % (Auto) 0.600, Neut % (Auto) 68.5, Lymph % (Auto) 15.9 L, [place] % (Auto) 12.2 H, Eos % (Auto) 2.2, Baso % (Auto) 0.6, Absolute Neuts (auto) 3.5, Absolute Lymphs (auto) 0.81 L, Nucleated RBC % 0, Sodium 136, Potassium 4.3, Chloride 101, Carbon Dioxide 26.1, Anion Gap 9, BUN 14, Creatinine 0.72, Estim Creat Clear Calc 55.98, Est GFR (MDRD) Non-Af 85, BUN/Creatinine Ratio 20.1 H, Glucose 115 H, Calcium 9.9 Charges/Coding Visit Charges Inpatient E&M: 65090 Subs Hosp L2
--- NOTE | 2025-01-11 09:58 | PCM.CONS.GEN ---
Assessment & Plan Assessment/Plan (1) Current use of assisted anticoagulation: (2) Adult failure to thrive: (3) Generalized weakness: PLAN: Plan to hold Eliquis, nurse will put a Murphy catheter and irrigate as necessary manually and will put on the schedule for this Thursday for cystoscopy diagnostic possible TURBT and bilateral retrograde pyelograms HPI Consult Data Date of Consult: 01/11/25 HPI Narrative Reason for Consultation: Gross hematuria HPI Narrative: AYAN CARRILLO, is a 79 female with gross hematuria she is in the hospital she does take Eliquis recommend we stop the Eliquis, his CAT scan reviewed no obvious source for the bleeding on CAT scan but she does have a distended bladder we will have the nurses put in a Murphy catheter hold the Eliquis and I will probably put her on for a diagnostic cystoscopy bilateral retrograde pyelograms this Thursday to evaluate the source of bleeding will need to have her off the Eliquis prior to this [facility] Medical History Frequent falls Ambulatory dysfunction Morbid obesity with BMI of 40.0-44.9, adult Hypothyroidism GERD (gastroesophageal reflux disease) GI bleed Atrial fibrillation Hypertension Myocardial infarction Obesity Essential (primary) hypertension Atherosclerotic heart disease of [place] coronary artery without angina pectoris Hyperlipidemia GERD (gastroesophageal reflux disease) Osteoarthritis Home Medications Medication Instructions Recorded Last Taken Type nitroglycerin 0.4 mg sublingual 0.4 mg sublingual Q5M PRN Chest 08/10/23 10/25/24 Rx tablet Pain #25 tabs omeprazole 20 mg capsule,delayed 20 mg PO DAILY #90 caps 08/01/24 01/10/25 Rx release apixaban 5 mg tablet (Eliquis) 5 mg PO BID #60 tabs 09/29/24 01/10/25 Rx diltiazem HCl 120 mg capsule,24 120 mg PO QAM #30 caps 10/14/24 01/10/25 Rx hr,extended release (Tiadylt ER) levothyroxine 75 mcg tablet 75 mcg PO DAILY 10/25/24 01/09/25 History potassium gluconate 595 mg (99 mg) 595 mg PO DAILY 10/25/24 10/25/24 History tablet acetaminophen 325 mg tablet 650 mg (2 x 325 mg) PO Q6H PRN PRN 11/30/24 Unknown Rx Pain 1-07/09 or Fever #0 tabs aspirin 81 mg chewable tablet 81 mg PO QHS 30 days #30 tabs 11/30/24 01/10/25 Rx meclizine 25 mg tablet 25 mg PO 4X/DAY PRN PRN 11/30/24 Unknown Rx (Travel-Ease (meclizine)) DIZZINESS/VERTIGO #0 tabs midodrine 5 mg tablet 10 mg (2 x 5 mg) PO TIDCM #0 tabs 11/30/24 01/09/25 Rx Allergy/AdvReac Type Severity Reaction Status Date / Time hydrochlorothiazide AdvReac Intermediate Constipatio Verified 01/09/25 21:23 n Family History Father CAD (coronary artery disease) Mother CHF (congestive heart failure) Sister Hypertension Surgical History History of appendectomy History of cholecystectomy History of left heart catheterization (06/04/08) History of coronary angioplasty (09/20/07) History of laparoscopic cholecystectomy History of total hysterectomy Social History housing: house Smoking Status: Never smoker alcohol intake: never substance use type: does not use Physical Exam Const alert and oriented x3 General Appearance: cooperative HEENT normocephalic, head/scalp atraumatic, EAC's normal and TM's normal bilaterally Eyes PERRL and EOMs intact bilaterally Pupil: sluggish Neck no lymphadenopathy, supple and no JVD General: trachea midline Lymph Lymphatic: no lymphadenopathy noted, lymphedema and lymphadenopathy Resp normal respiratory effort, normal air movement and clear to auscultation bilaterally Cardio regular rate, regular rhythm and peripheral pulses 2+ throughout GI soft to palpation, non-tender and non-distended Extremity normal capillary refill and no clubbing, cyanosis or edema General Extremity: no tenderness to palpation of joints or extremities Skin no rashes or lesions noted General Skin Exam: turgor normal Lesions: no lesions Rashes: no rashes Neuro CN's II-XII intact bilaterally Speech: speech normal Motor Exam: strength 5/5 throughout; Negative for general weakness Psych thought process normal, cooperative and affect normal Appearance: appropriate Lab / Micro Data 01/11/25 05:17 01/11/25 05:17 Labs: Laboratory Results - last 24 hr 01/11/25 05:17: WBC 5.1, RBC 3.66 L, Hgb 10.6 L, Hct 33.2 L, MCV 90.7, MCH 29.0, MCHC 31.9 L, RDW Std Deviation 48.9 H, RDW Coeff of Cory 14.6, Plt Count 272, MPV 9.7, Immature Gran % (Auto) 0.600, Neut % (Auto) 68.5, Lymph % (Auto) 15.9 L, [place] % (Auto) 12.2 H, Eos % (Auto) 2.2, Baso % (Auto) 0.6, Absolute Neuts (auto) 3.5, Absolute Lymphs (auto) 0.81 L, Nucleated RBC % 0, Sodium 136, Potassium 4.3, Chloride 101, Carbon Dioxide 26.1, Anion Gap 9, BUN 14, Creatinine 0.72, Estim Creat Clear Calc 55.98, Est GFR (MDRD) Non-Af 85, BUN/Creatinine Ratio 20.1 H, Glucose 115 H, Calcium 9.9
[2025-01-11 12:00] VITALS: BP 138/100; PULSE 67; RESP 16; TEMP 36.7; O2SAT 98
--- NOTE | 2025-01-11 12:33 | CASEMGMT ---
Social Work SW spoke with the patient and her first choice for SNF is [facility]. She reported her daughter is coming tonight to visit her. SW asked if they could make a 2nd and 3rd choice in case [facility] can not accept her. MILENA Castro
--- NOTE | 2025-01-11 14:39 | CASEMGMT ---
Discharge Planning Referral sent via [facility] to [facility]. Sofie Panda DC Planning Asst.
--- NOTE | 2025-01-11 14:43 | CASEMGMT ---
Discharge Planning VM rec'd from pts daughter (Cassandra) requesting referral be sent to [facility]. This was verified with pt and referral sent via [facility] to [facility]. SW updated. Sofie Panda DC Planning Asst.
[2025-01-11 18:14] VITALS: BP 138/90; PULSE 65; RESP 16; TEMP 36.6; O2SAT 98
[2025-01-11 20:45] VITALS: BP 144/99; PULSE 113; RESP 18; TEMP 36.7; O2SAT 93
[2025-01-12 02:45] VITALS: BP 160/107; PULSE 94; RESP 18; TEMP 36.4; O2SAT 95
[2025-01-12] MEDS: 0.9% Saline Lock 10 ML Syringe IV ×2 (05:51→10:24)
--- NOTE | 2025-01-12 07:08 | PCM.CONS.GEN ---
HPI Consult Data Date of Consult: 01/12/25 HPI Narrative HPI Narrative: 79-year-old female with gross hematuria, Murphy catheter placed yesterday Coumadin is on hold plan to take her to surgery tomorrow for cystoscopy possible transurethral section of bladder tumor and retrograde pyelograms, CT scan reviewed the other day. [facility] Medical History Frequent falls Ambulatory dysfunction Morbid obesity with BMI of 40.0-44.9, adult Hypothyroidism GERD (gastroesophageal reflux disease) GI bleed Atrial fibrillation Hypertension Myocardial infarction Obesity Essential (primary) hypertension Atherosclerotic heart disease of [place] coronary artery without angina pectoris Hyperlipidemia GERD (gastroesophageal reflux disease) Osteoarthritis Home Medications Medication Instructions Recorded Last Taken Type nitroglycerin 0.4 mg sublingual 0.4 mg sublingual Q5M PRN Chest 08/10/23 10/25/24 Rx tablet Pain #25 tabs omeprazole 20 mg capsule,delayed 20 mg PO DAILY #90 caps 08/01/24 01/10/25 Rx release apixaban 5 mg tablet (Eliquis) 5 mg PO BID #60 tabs 09/29/24 01/10/25 Rx diltiazem HCl 120 mg capsule,24 120 mg PO QAM #30 caps 10/14/24 01/10/25 Rx hr,extended release (Tiadylt ER) levothyroxine 75 mcg tablet 75 mcg PO DAILY 10/25/24 01/09/25 History potassium gluconate 595 mg (99 mg) 595 mg PO DAILY 10/25/24 10/25/24 History tablet acetaminophen 325 mg tablet 650 mg (2 x 325 mg) PO Q6H PRN PRN 11/30/24 Unknown Rx Pain 1-5/10 or Fever #0 tabs aspirin 81 mg chewable tablet 81 mg PO QHS 30 days #30 tabs 11/30/24 01/10/25 Rx meclizine 25 mg tablet 25 mg PO 4X/DAY PRN PRN 11/30/24 Unknown Rx (Travel-Ease (meclizine)) DIZZINESS/VERTIGO #0 tabs midodrine 5 mg tablet 10 mg (2 x 5 mg) PO TIDCM #0 tabs 11/30/24 01/09/25 Rx Allergy/AdvReac Type Severity Reaction Status Date / Time hydrochlorothiazide AdvReac Intermediate Constipatio Verified 01/09/25 21:23 n Family History Father CAD (coronary artery disease) Mother CHF (congestive heart failure) Sister Hypertension Surgical History History of appendectomy History of cholecystectomy History of left heart catheterization (06/04/08) History of coronary angioplasty (09/20/07) History of laparoscopic cholecystectomy History of total hysterectomy Social History housing: house Smoking Status: Never smoker alcohol intake: never substance use type: does not use Lab / Micro Data 01/11/25 05:17 01/11/25 05:17 Micro: Microbiology 01/09/25 21:37 Urine, Catheterized Urine Culture - Preliminary 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
[2025-01-12 07:58] VITALS: BP 157/85; PULSE 88; RESP 18; TEMP 36.6; O2SAT 96
[2025-01-12] MEDS: MENTHOL 226.8 GM JAR 1 APPLIC TOPICAL ×2 (08:07→19:50)
--- NOTE | 2025-01-12 09:11 | CASEMGMT ---
Discharge Planning [facility] has accepted. [facility] is still pending decision. Pt updated and would like to proceed with [facility]. Both snf and pts daughter (Minnie) updated. Minnie states that she will update family. SW updated. Sofie Panda DC Planning Asst.
[2025-01-12 11:40] VITALS: BP 148/90; PULSE 68
--- NOTE | 2025-01-12 13:23 | PCM.PN.HOSP ---
Reason for Visit Chief Complaint: Failure to thrive, dysuria Objective Data Objective Data Vital Signs: Vital Signs Temp Pulse Resp BP Pulse Ox O2 Del Method 97.8 F 68 18 148/90 H 96 Room Air 01/12/25 07:58 01/12/25 11:40 01/12/25 07:58 01/12/25 11:40 01/12/25 07:58 01/12/25 09:51 Oxygen Delivery Method Room Air Weight: 197 lb 15.602 oz Body Mass Index (BMI) 39.9 Intake & Output: Intake and Output for Last 24 Hours 01/10/25 01/11/25 01/12/25 23:59 23:59 23:59 Intake Total 350 / 350 100 / 100 50 / 50 Output Total 900 / 900 850 / 1050 250 / 250 Balance -550 / -550 -750 / -950 -200 / -200 Lab / Micro Data 01/11/25 05:17 01/11/25 05:17 Micro: Microbiology 01/09/25 21:37 Urine, Catheterized Urine Culture - Preliminary Escherichia coli Gram negative marin Physical Exam Narrative Seen and examined. Patient had 300 mL bloody urine in Urobag since yesterday. Plan for cystoscopy tomorrow. Eliquis on hold. Patient complaining of hematuria. She still has burning micturition. Patient is admitted with burning micturition, sometimes hematuria. She also has increased urgency but denies frequency but she is urinary incontinent on diaper. She denies any urinary catheterization but it was more like external urine catheter in recent past. She was recently treated with Macrobid for UTI. Physical exam General: Alert, Oriented x3, Cooperative, sitting in the chair. HEENT: Atraumatic, PERRLA, EOMI, Normocephalic. Oral: No Gingival or Mucosal Lesions/ Ulcerations Neck: Supple, No JVD, Negative Carotid Bruits Chest wall/Lungs: Air entry diminished in bilateral. No crepitation/rhonchi. No hypoxia. Cardiovascular: Irregular rate and rhythm, systolic murmur Abdomen: Bowel Sounds Present, Soft, Non Tender, Non-Distended : Murphy catheter with bloody urine. No renal angle tenderness. No suprapubic tenderness. Extremities: Mild pedal/ankle edema, Capillary Refill Less than 3 Seconds Skin: No rashes, No breakdown Musculoskeletal: Right ankle deformity, chronic no Tenderness to Palpation of Joints or Extremities Neurological: Cranial nerves II-XII grossly intact, DTR 2+/4. No acute focal neurological deficit. Psych/Mental Status: Normal Affect, Appropriate. Assessment & Plan Assessment/Plan (1) Current use of fpc anticoagulation: (2) Adult failure to thrive: (3) Generalized weakness: (4) Inability to walk: (5) Cystitis: (6) GERD (gastroesophageal reflux disease): (7) Atherosclerotic heart disease of [place] coronary artery without angina pectoris: QUALIFIERS: [place] vs. transplanted heart: [place] heart Qualified Code(s): I25.10 - Atherosclerotic heart disease of [place] coronary artery without angina pectoris (8) Essential (primary) hypertension: (9) Hyperlipidemia: QUALIFIERS: Hyperlipidemia type: pure hypercholesterolemia Qualified Code(s): E78.00 - Pure hypercholesterolemia, unspecified; E78.0 - Pure hypercholesterolemia PLAN: Plan 79-year-old female admitted with burning pain during micturition, increased frequency, hematuria since Thursday last 3 days. Patient was discharged from [facility] due to insurance issues. Failure to thrive. 1. Failure to thrive, inability to do ADL: Patient is being admitted on PCU floor as MedSurg status. PT OT ordered. Case management consult for placement. Has chronic deformity of both feet 01/11 overall patient feels better sitting in the chair. 2. Urinary tract infection–patient has burning micturition and increased urgency. Sometimes hematuria. UA shows nitrite negative, LE 500, WBC 0-5, RBC 0-5 cells, bacteria 4+. Urine culture pending Rocephin 1 g IV every 24 hours, repeat CBC BMP in the morning, encourage fluids 01/11: Urine culture is still pending. CT reviewed shows cystitis changes in the bladder with nonobstructing stones in the dependent bladder largest measuring 3 mm. Bilateral urothelial thickening probably ascending urinary tract infection. No renal mass or renal calculi. No hydronephrosis. Urologist consulted and discussed Dr. Stephens. He will see the patient. Continue antibiotic 01/11: No major change in H&H. Over last 2 days dropped from 11.4-10.6, does not qualify for acute anemia. Chronic normocytic anemia. Eliquis on hold. Plan for cystoscopy tomorrow. 3. Hypertension–continue routine antihypertensive therapy. Blood pressure is normal 4. Hyperlipidemia–continue statin medication 5. Chronic A-fib: On exam pulse is irregularly irregular. Heart rate is controlled. On diltiazem extended release 120 mg daily and Eliquis. 6. Hypothyroidism on levothyroxine 75 mcg daily. 7. History of low blood pressure/hypotension on midodrine. DVT prophylaxis–on Eliquis 5 mg twice daily. CODE STATUS–DNR Comfort Care arrest confirmed with patient and family Laboratory Results 01/11/25 05:17: WBC 5.1, RBC 3.66 L, Hgb 10.6 L, Hct 33.2 L, MCV 90.7, MCH 29.0, MCHC 31.9 L, RDW Std Deviation 48.9 H, RDW Coeff of Cory 14.6, Plt Count 272, MPV 9.7, Immature Gran % (Auto) 0.600, Neut % (Auto) 68.5, Lymph % (Auto) 15.9 L, [place] % (Auto) 12.2 H, Eos % (Auto) 2.2, Baso % (Auto) 0.6, Absolute Neuts (auto) 3.5, Absolute Lymphs (auto) 0.81 L, Nucleated RBC % 0, Sodium 136, Potassium 4.3, Chloride 101, Carbon Dioxide 26.1, Anion Gap 9, BUN 14, Creatinine 0.72, Estim Creat Clear Calc 55.98, Est GFR (MDRD) Non-Af 85, BUN/Creatinine Ratio 20.1 H, Glucose 115 H, Calcium 9.9 Charges/Coding Visit Charges Inpatient E&M: 68388 Subs Hosp L2
[2025-01-12 13:50] LABS: Hematocrit 37.7 % (37-47); Hemoglobin 12.2 g/dL (12.0-15.0); Immature Granulocytes Count 0.060 X10^3/uL (0.0-0.0); Mean Corp Hgb Conc 32.4 g/dL (32-36); Mean Corpuscular Volume 91.3 fL (81-99); Mean Platelet Vol. 9.3 fl (6.2-12.0); NRBC Flagged by Analyzer 0 % (0-5); Platelet Count 386 K/mm3 (150-450); RBC Distribution Width CV 14.7 % (11.6-14.6); RBC Distribution Width SD 49.8 fl (35.1-43.9); Red Blood Count 4.13 M/mm3 (4.2-5.4); White Blood Count 10.0 K/mm3 (4.4-11.0)
[2025-01-12 16:26] VITALS: BP 154/85; PULSE 92; RESP 18; TEMP 36.6; O2SAT 96
[2025-01-12 19:57] VITALS: BP 139/82; PULSE 99; RESP 16; TEMP 36.8; O2SAT 97
[2025-01-13] VITALS (10 sets, daily range): BP systolic 119–170; BP diastolic 60–98; PULSE 87–105; RESP 12–18; TEMP 36.1–36.7; O2SAT 92–98
[2025-01-13 04:58] LABS: Hematocrit 32.5 % (37-47); Hemoglobin 10.5 g/dL (12.0-15.0); Immature Granulocytes Count 0.040 X10^3/uL (0.0-0.0); Mean Corp Hgb Conc 32.3 g/dL (32-36); Mean Corpuscular Volume 90.8 fL (81-99); Mean Platelet Vol. 9.1 fl (6.2-12.0); NRBC Flagged by Analyzer 0 % (0-5); Platelet Count 284 K/mm3 (150-450); RBC Distribution Width CV 14.6 % (11.6-14.6); RBC Distribution Width SD 48.1 fl (35.1-43.9); Red Blood Count 3.58 M/mm3 (4.2-5.4); White Blood Count 5.2 K/mm3 (4.4-11.0)
[2025-01-13 05:09] LABS: Prothrombin Time (Protime)PT. 15.1 SECONDS (11.7-14.9)
[2025-01-13 05:10] LABS: Partial Thromboplast Time 30.4 Seconds (24.1-36.2)
[2025-01-13 05:36] LABS: AST(SGOT) 17 U/L (<=31); Alanine Aminotransfer ALT/SGPT 14 U/L (<=34); Albumin, Serum 3.0 g/dL (3.4-4.8); Alkaline Phosphatase 97 U/L (35-104); Anion Gap 7 (5-15); BUN 9 mg/dL (4-19); BUN/Creat Ratio 16.1 RATIO (10-20); Bilirubin, Direct 0.38 mg/dL (0.00-0.30); Calcium,Total 9.8 mg/dL (7.6-11.0); Carbon Dioxide 25.7 mmol/L (21.0-32.0); Chloride 101 mmol/L (98-108); Estimated Creatinine Clearance 55.98 ml/min (50-250); Globulin 2.7 g/dL (2.2-4.2); Glucose 106 mg/dL (70-99); Potassium 4.1 mmol/L (3.3-5.1)
--- NOTE | 2025-01-13 11:33 | PRE.ANES_ITS ---
ASA Classification* ASA Classification ASA Classification: 3 Assessment & Plan Anesthesia* Anesthesia Assessment Anesthesia Assessment: Discussed sedation and/or anesthesia options, risks, benefits, and alternatives with patient/parents/legal guardian/POA. Questions invited. The patient/parents/legal guardian/POA seems to understand and agrees to proceed with anesthesia plan. Reviewed the physical assessment, medical history, allergy history and patient home medications list prior to surgery/procedure/anesthetic and documented any changes. Performed airway and anesthesia risk assessments. Anesthesia Type Anesthesia Type: General History Source History Obtained from:: Patient and Chart Anesthesia Focused Assessment* Temperature: 97.9 F Pulse Rate: 97 Blood Pressure: 170/60 Respiratory Rate: 18 Pulse Ox: 94 Oxygen Delivery Method: Room Air Airway Assessment Mouth opens: >3 cm Mallampati Score: IV Teeth Condition: Chipped/Broken (Patient has a couple of broken teeth on the right upper and lower jaw. Rest are tight.) and Partial (Upper partial.) Neck Range of motion (ROM): Limited ROM (Slight Decrease) Labs Anesthesia Preop lab: CBC WBC, (4.4-11.0) 5.2 K/mm3 Today, 04:41 RBC, (4.2-5.4) 3.58 M/mm3 L Today, 04:41 Hgb, (12.0-15.0) 10.5 g/dL L Today, 04:41 Hct, (37-47) 32.5 % L Today, 04:41 Plt Count, (150-450) 284 K/mm3 Today, 04:41 CHEMISTRY Potassium, (3.3-5.1) 4.1 mmol/L Today, 04:41 Sodium, (133-145) 134 mmol/L Today, 04:41 Magnesium, (1.5-2.2) 2.1 mg/dL 11/26/24, 20:25 Phosphorus, (2.7-4.5) 3.7 mg/dL 11/28/24, 05:34 BUN, (4-19) 9 mg/dL Today, 04:41 Creatinine, (0.70-1.20) 0.57 mg/dL L Today, 04:41 Glucose, (70-99) 106 mg/dL H Today, 04:41 TSH, (0.300-4.200) < 0.005 uIU/mL L 11/26/24, 20:25 COAG PT, (11.7-14.9) 15.1 SECONDS H Today, 04:41 Pre-Assessment Diagnosis/Proposed Procedure Planned Operative Procedure(s): Cystoscopy, possible transurethral section of bladder tumor, bilateral retrograde pyelograms. Anesthesia History Anesthesia History - drafter detail: Anesthesia History - drafter detail Hx Hospitalization Any Problems With Anesthesia Cholinesterase deficiency You/Your Family Experience fever (hyperthermia) with Relationship Recent Exposure to Contagious Disease Does patient have nerve stimulator Patient instructed to have device shut off --Does patient have Pacemaker or ICD? When Was Last Pacemaker Check QUESTION #4 FULL TEXT: You/Your Family Experience fever (hyperthermia) with Anesthesia Last Oral Intake Last Oral intake: Last Oral Intake NPO since 0000 Meds taken in AM with sips of water? Meds patient instructed to take am of surgery Any additional information?: Yes Meds taken in AM with sips of water?: Yes PONV PONV - drafter detail: PONV - drafter detail Female HX of Motion Sickness HX of N/V After Surgery Non-Smoker Duration of Surgery greater than 60 minutes Number of Risk Factors PONV Score Height & Weight Height & Weight: Anesthesia: Height & Weight Height 4 ft 11 in 01/11/25 16:04 Weight: 89.8 kg 01/11/25 16:04 Body Mass Index (BMI) 39.9 01/10/25 03:04 Respiratory Assessment Respiratory Assessment - drafter detail: Respiratory Tract Infection Hx - drafter detail Hx Respiratory Tract Infection N Any additional information?: Yes Hx Respiratory Tract Infection: No STOP Sleep Apnea STOP Sleep Apnea - drafter detail: STOP Sleep Apnea - drafter detail Hx Hypertension Yes 01/10/25 11:12 Hx Sleep Apnea No 01/10/25 02:58 CPAP BIPAP Do you snore loudly (louder No 01/10/25 02:58 than talking or can be heard Do you often feel tired/ Yes 01/10/25 02:58 fatigued/ sleepy during daytime? Has anyone observed you stop No 01/10/25 02:58 breathing during sleep? STOP Results Positive 01/10/25 02:58 QUESTION #5 FULL TEXT : Do you snore loudly (louder than talking or can be heard through closed doors)? 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 Specify any problems Hx of Preganancy in last 3 No 01/10/25 02:58 Months Nurse Filling Out Transfusion HSTOLLER 01/10/25 02:58 & Questions: Date: 01/10/25 01/10/25 02:58 Time: 03:13 01/10/25 02:58 Patient unable to answer at this time (ie. confused, unrespo /Reproduction History /Reproductive History - drafter detail: /Reproductive Hx- drafter detail Hx Now Gestational Age (in weeks): EDC: Hx Hx Para Hx Section SAB Does the father of the baby or his family experience fever w Father of the baby Malignant Hypertension history comment Active Medications Active Medications: Current Medications Generic Name Dose Route Start Last Admin Trade Name Freq PRN Reason Stop Dose Admin Acetaminophen 650 mg 01/10/25 02:58 01/12/25 19:49 Acetaminophen 325 Mg Tablet PO 650 mg Q6H PRN PRN Administration Pain 1-1010 or Fever Apixaban 5 mg 01/10/25 10:00 01/10/25 20:37 Apixaban 5 Mg Tablet PO 5 mg On Hold: 01/11/25 09:59 BID KARYNA Administration Diltiazem HCl 120 mg 01/10/25 10:00 01/13/25 10:28 Diltiazem Cd 120 Mg Capsule PO 120 mg QAM KARYNA Administration Ceftriaxone Sodium 1 gm in 50 mls @ 100 mls/hr 01/10/25 07:00 01/13/25 11:05 Rocephin IV Infused Q24 KARYNA Infusion Sodium Chloride 250 mls @ 15 mls/hr 01/10/25 03:03 IV .[id number] PRN Saline Flush Sodium Chloride 250 mls @ 15 mls/hr 01/10/25 03:03 IV .[id number] PRN Additional IVPB Infusion Sodium Chloride 1,000 mls @ 15 mls/hr 01/13/25 11:30 IV .Q48H KARYNA Levothyroxine Sodium 75 mcg 01/10/25 06:00 01/13/25 10:28 Levothyroxine 75 Mcg Tablet PO 75 mcg DAILY@0600 KARYNA Administration Meclizine HCl 25 mg 01/10/25 02:58 Meclizine Hcl 25 Mg Tablet PO 4X/DAY PRN PRN DIZZINESS/VERTIGO Menthol 1 applic 01/10/25 22:12 01/12/25 19:50 Menthol 226.8 Gm Jar TOPICAL 1 applic TID PRN PRN Administration Pain/Inflammation Midodrine 10 mg 01/10/25 08:00 01/13/25 10:20 Midodrine Hcl 5 Mg Tablet PO Not Given TIDCM [facility] Nitroglycerin 0.4 mg 01/10/25 02:58 Nitroglycerin (Inpatient Use) 0.4 Mg Tab.Subl SL Q5M PRN Chest Pain Pantoprazole Sodium 20 mg 01/10/25 10:00 01/13/25 10:28 Pantoprazole Sodium 20 Mg Tablet PO 20 mg DAILY [facility] Administration Sodium Chloride 10 - 40 ml 01/10/25 03:03 01/12/25 10:24 0.9% Saline Lock 10 Ml Syringe IV 10 ml UD PRN Administration SALINE FLUSH PFSH Medical History Frequent falls Ambulatory dysfunction Morbid obesity with BMI of 40.0-44.9, adult Hypothyroidism GERD (gastroesophageal reflux disease) GI bleed Atrial fibrillation Hypertension Myocardial infarction Obesity Essential (primary) hypertension Atherosclerotic heart disease of [place] coronary artery without angina pectoris Hyperlipidemia GERD (gastroesophageal reflux disease) Osteoarthritis Home Medications Medication Instructions Recorded Last Taken Type nitroglycerin 0.4 mg sublingual 0.4 mg sublingual Q5M PRN Chest 08/10/23 10/25/24 Rx tablet Pain #25 tabs omeprazole 20 mg capsule,delayed 20 mg PO DAILY #90 ca ps 08/01/24 01/10/25 Rx release apixaban 5 mg tablet (Eliquis) 5 mg PO BID #60 tabs 01/10/25 Rx diltiazem HCl 120 mg capsule,24 120 mg PO QAM #30 caps 10/14/24 01/13/25 Rx hr,extended release (Tiadylt ER) levothyroxine 75 mcg tablet 75 mcg PO DAILY hypothyroi d 10/25/24 01/13/25 History potassium gluconate 595 mg (99 mg) 595 mg PO DAILY 10/25/24 History tablet acetaminophen 325 mg tablet 650 mg (2 x 325 mg) PO Q6H PRN PRN 11/30/24 Unknown Rx Pain -07/09 or Fever #0 tabs aspirin 81 mg chewable tablet 81 mg PO QHS 30 days #30 tabs 11/30/24 01/10/25 Rx meclizine 25 mg tablet 25 mg PO 4X/DAY PRN PRN 03/26 Unknown Rx (Travel-Ease (meclizine)) DIZZINESS/VERTIGO #0 tabs midodrine 5 mg tablet 10 mg (2 x 5 mg) PO TIDCM #0 tabs 11/30/24 01/09/25 Rx Allergy/AdvReac Type Severity Reaction Status Date / Time hydrochlorothiazide AdvReac Intermediate Constipatio Verified 01/09/25 21:23 n Family History Father CAD (coronary artery disease) Mother CHF (congestive heart failure) Sister Hypertension Surgical History History of appendectomy History of cholecystectomy History of left heart catheterization (06/04/08) History of coronary angioplasty (09/20/07) History of laparoscopic cholecystectomy History of total hysterectomy Social History housing: house Smoking Status: Never smoker alcohol intake: never substance use type: does not use Review of Systems (Anesthesia) ROS Narrative System reviewed and no additional complaints, except as documented.
--- NOTE | 2025-01-13 11:34 | PCM.CONS.B ---
Consult Date of Consult: 01/13/25 Reason for Consult Plan to take the patient today for surgery to look inside her bladder to cause see what the cause of the hematuria is bilateral retrograde pyelograms CAT scan was done no obvious source but I am concerned of possible malignancy since he is been having gross hematuria. She has a catheter in place still draining some bloody urine. Plan for surgery today discussed the findings with the patient all questions addressed she signed the consent form and we will proceed
[2025-01-13] MEDS: 0.9% Normal Saline (1000mL) 1,000 ML 15 ML IV (11:36)
[2025-01-13] MEDS: Lactated Ringers 500 ML IV (13:02)
[2025-01-13] MEDS: Lidocaine 1% (5 ml sdv) 5 ML Vial IV (13:08)
[2025-01-13] MEDS: fentaNYL 100 MCG/2 ML Ampul IV (13:08)
--- NOTE | 2025-01-13 13:19 | OP.PCM_ITS ---
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: No Type of Anesthesia: General RN Documented Start/Stop Times: Operation Date: 01/13/25 16:45 Case Time Into Pre-Op 01/13/25 11:27 Anesthesia Start 01/13/25 13:00 Into Room 01/13/25 13:00 Procedure Start 01/13/25 13:13 Procedure End 01/13/25 13:18 Procedure Start Time: 13:13 Procedure Stop Time: 13:19 Select all DRAINS/GRAFTS/IMPLANTS that apply: None Estimated Blood Loss: Minimal Specimen collected: No Description of surgery: This is an [id number] female who presented to the hospital with gross hematuria and bleeding she did have possible infection but because of the ongoing bleeding took her to surgery today to get the catheter did a cystoscopy she had a lot of inflammation in her bladder but no tumors or stones seen within the bladder no sign of cancer appeared to be cystitis from infection so he magic cystitis with the diagnosis I then cannulated the ureteral orifice on the right side did a retrograde pyelogram this was normal and cannulated the ureteral orifice in the left side did a retrograde pyelogram this was normal drained the patient's bladder no catheter was placed patient anesthetic was reversed taken back to PACU in stable condition. Surgical Findings: Bladder had cystitis no tumors or stones within the bladder bilateral retrograde pyelograms were normal Complications Complications: No Admit VTE Documentation VTE Present on Admission: No VTE Mechan Device Prophylaxis: SCD's VTE Pharm Prophylaxis ordered?: No
--- NOTE | 2025-01-13 13:19 | PCM.PN.HOSP ---
Reason for Visit Chief Complaint: Failure to thrive, dysuria Objective Data Objective Data Vital Signs: Vital Signs Temp Pulse Resp BP Pulse Ox O2 Del Method 97.9 F 97 18 170/60 H 94 Room Air 01/13/25 11:43 01/13/25 11:43 01/13/25 11:43 01/13/25 11:43 01/13/25 11:43 01/13/25 11:43 Oxygen Delivery Method Room Air Weight: 197 lb 15.602 oz Body Mass Index (BMI) 39.9 Intake & Output: Intake and Output for Last 24 Hours 01/11/25 01/12/25 01/13/25 23:59 23:59 23:59 Intake Total 100 / 100 50 / 50 50 / 50 Output Total 850 / 1050 800 / 1000 400 / 400 Balance -750 / -950 -750 / -950 -350 / -350 Lab / Micro Data 01/13/25 04:41 01/13/25 04:41 Labs: Laboratory Results - last 24 hr 01/12/25 13:40: WBC 10.0, RBC 4.13 L, Hgb 12.2, Hct 37.7, MCV 91.3, MCH 29.5, MCHC 32.4, RDW Std Deviation 49.8 H, RDW Coeff of Cory 14.7 H, Plt Count 386, MPV 9.3, Immature Gran % (Auto) 0.600, Neut % (Auto) 77.2 H, Lymph % (Auto) 11.7 L, [place] % (Auto) 8.6, Eos % (Auto) 1.4, Baso % (Auto) 0.5, Absolute Neuts (auto) 7.7, Absolute Lymphs (auto) 1.17, Nucleated RBC % 0 01/13/25 04:41: WBC 5.2, RBC 3.58 L, Hgb 10.5 L, Hct 32.5 L, MCV 90.8, MCH 29.3, MCHC 32.3, RDW Std Deviation 48.1 H, RDW Coeff of Cory 14.6, Plt Count 284, MPV 9.1, Immature Gran % (Auto) 0.800, Neut % (Auto) 68.9, Lymph % (Auto) 15.9 L, [place] % (Auto) 10.7 H, Eos % (Auto) 2.9, Baso % (Auto) 0.8, Absolute Neuts (auto) 3.6, Absolute Lymphs (auto) 0.83, Nucleated RBC % 0, PT 15.1 H, INR 1.2, APTT 30.4, Sodium 134, Potassium 4.1, Chloride 101, Carbon Dioxide 25.7, Anion Gap 7, BUN 9, Creatinine 0.57 L, Estim Creat Clear Calc 55.98, Est GFR (MDRD) Non-Af 92, BUN/Creatinine Ratio 16.1, Glucose 106 H, Calcium 9.8, Total Bilirubin 0.62, Direct Bilirubin 0.38 H, AST 17, ALT 14, Alkaline Phosphatase 97, Total Protein 5.7 L, Albumin 3.0 L, Globulin 2.7 Micro: Microbiology 01/09/25 21:37 Urine, Catheterized Urine Culture - Final Escherichia coli Proteus mirabilis Physical Exam Narrative Seen and examined. Patient still having mild hematuria. Plan for cystoscopy today Eliquis on hold. Patient is admitted with burning micturition, sometimes hematuria. She also has increased urgency but denies frequency but she is urinary incontinent on diaper. She denies any urinary catheterization but it was more like external urine catheter in recent past. She was recently treated with Macrobid for UTI. Physical exam General: Alert, Oriented x3, Cooperative, sitting in the chair. HEENT: Atraumatic, PERRLA, EOMI, Normocephalic. Oral: No Gingival or Mucosal Lesions/ Ulcerations Neck: Supple, No JVD, Negative Carotid Bruits Chest wall/Lungs: Air entry diminished in bilateral. No crepitation/rhonchi. No hypoxia. Cardiovascular: Irregular rate and rhythm, systolic murmur Abdomen: Bowel Sounds Present, Soft, Non Tender, Non-Distended : Murphy catheter with bloody urine. No renal angle tenderness. No suprapubic tenderness. Extremities: Mild pedal/ankle edema, Capillary Refill Less than 3 Seconds Skin: No rashes, No breakdown Musculoskeletal: Right ankle deformity, had surgery in the past. Chronic no Tenderness to Palpation of Joints or Extremities Neurological: Cranial nerves II-XII grossly intact, DTR 2+/4. No acute focal neurological deficit. Psych/Mental Status: Normal Affect, Appropriate. Assessment & Plan Assessment/Plan (1) Current use of alf anticoagulation: (2) Adult failure to thrive: (3) Generalized weakness: (4) Inability to walk: (5) Cystitis: (6) GERD (gastroesophageal reflux disease): (7) Atherosclerotic heart disease of [place] coronary artery without angina pectoris: QUALIFIERS: [place] vs. transplanted heart: [place] heart Qualified Code(s): I25.10 - Atherosclerotic heart disease of [place] coronary artery without angina pectoris (8) Essential (primary) hypertension: (9) Hyperlipidemia: QUALIFIERS: Hyperlipidemia type: pure hypercholesterolemia Qualified Code(s): E78.00 - Pure hypercholesterolemia, unspecified; E78.0 - Pure hypercholesterolemia PLAN: Plan 79-year-old female admitted with burning pain during micturition, increased frequency, hematuria since Thursday last 3 days. [facility]. Failure to thrive. 1. Failure to thrive, inability to do ADL: Patient is being admitted on PCU floor as MedSurg status. PT OT ordered. Case management consult for placement. Has chronic deformity of both feet 01/11 overall patient feels better sitting in the chair. 2. Urinary tract infection–patient has burning micturition and increased urgency. Sometimes hematuria. UA shows nitrite negative, LE 500, WBC 0-5, RBC 0-5 cells, bacteria 4+. Urine culture pending Rocephin 1 g IV every 24 hours, repeat CBC BMP in the morning, encourage fluids 01/11: Urine culture is still pending. CT reviewed shows cystitis changes in the bladder with nonobstructing stones in the dependent bladder largest measuring 3 mm. Bilateral urothelial thickening probably ascending urinary tract infection. No renal mass or renal calculi. No hydronephrosis. Urologist consulted and discussed Dr. Stephens. He will see the patient. Continue antibiotic 01/12: No major change in H&H. Over last 2 days dropped from 11.4-10.6, does not qualify for acute anemia. Chronic normocytic anemia. Eliquis on hold. Plan for cystoscopy tomorrow. 01/13: Plan for cystoscopy today. Hemoglobin 10.5 but was similar on 01/11 went up to 12.2 on 01/12. I think 12.2 is outlier and may be lab error. Urine culture shows E. coli and Proteus mirabilis 2 organisms most likely it is contamination. Continue IV antibiotic. 3. Hypertension–continue routine antihypertensive therapy. Blood pressure is normal 4. Hyperlipidemia–continue statin medication 5. Chronic A-fib: On exam pulse is irregularly irregular. Heart rate is controlled. On diltiazem extended release 120 mg daily and Eliquis. 6. Hypothyroidism on levothyroxine 75 mcg daily. 7. History of low blood pressure/hypotension on midodrine. DVT prophylaxis–on Eliquis 5 mg twice daily. CODE STATUS–DNR Comfort Care arrest confirmed with patient and family Microbiology Past 72 Hours 01/09/25 21:37 Urine, Catheterized Urine Culture - Final Escherichia coli Proteus mirabilis Laboratory Results 01/12/25 13:40: WBC 10.0, RBC 4.13 L, Hgb 12.2, Hct 37.7, MCV 91.3, MCH 29.5, MCHC 32.4, RDW Std Deviation 49.8 H, RDW Coeff of Cory 14.7 H, Plt Count 386, MPV 9.3, Immature Gran % (Auto) 0.600, Neut % (Auto) 77.2 H, Lymph % (Auto) 11.7 L, [place] % (Auto) 8.6, Eos % (Auto) 1.4, Baso % (Auto) 0.5, Absolute Neuts (auto) 7.7, Absolute Lymphs (auto) 1.17, Nucleated RBC % 0 01/13/25 04:41: WBC 5.2, RBC 3.58 L, Hgb 10.5 L, Hct 32.5 L, MCV 90.8, MCH 29.3, MCHC 32.3, RDW Std Deviation 48.1 H, RDW Coeff of Cory 14.6, Plt Count 284, MPV 9.1, Immature Gran % (Auto) 0.800, Neut % (Auto) 68.9, Lymph % (Auto) 15.9 L, [place] % (Auto) 10.7 H, Eos % (Auto) 2.9, Baso % (Auto) 0.8, Absolute Neuts (auto) 3.6, Absolute Lymphs (auto) 0.83, Nucleated RBC % 0, PT 15.1 H, INR 1.2, APTT 30.4, Sodium 134, Potassium 4.1, Chloride 101, Carbon Dioxide 25.7, Anion Gap 7, BUN 9, Creatinine 0.57 L, Estim Creat Clear Calc 55.98, Est GFR (MDRD) Non-Af 92, BUN/Creatinine Ratio 16.1, Glucose 106 H, Calcium 9.8, Total Bilirubin 0.62, Direct Bilirubin 0.38 H, AST 17, ALT 14, Alkaline Phosphatase 97, Total Protein 5.7 L, Albumin 3.0 L, Globulin 2.7 Charges/Coding Visit Charges Inpatient E&M: 70535 Subs Hosp L2
--- NOTE | 2025-01-13 13:45 | PCM.POST.ANE ---
Anesthesia: Postop Eval I Current Vital Signs Temperature: 97.4 F Pulse Rate: 102 Blood Pressure: 130/65 Respiratory Rate: 12 Pulse Ox: 92 Oxygen Delivery Method: Nasal Cannula Oxygen Flow Rate (L/min): 2 Assessment Airway patent: Yes Spontaneous unlabored respirations: Yes Mental status: Awake and Calm nausea: No Vomiting: No Anesthesia Complication: No Fluid Hydration Crystalloid volume administer (ml): 500 Total IV fluid infused: 500 Progress Note Anesthesia document: Postop Eval 1 completed: Yes
--- NOTE | 2025-01-13 14:23 | POSTOPAN2_ITS ---
Anesthesia Postop Eval I Sum Postop Eval Completion status Anesthesia document: Postop Eval 1 completed: Yes Anesthesia Postop Eval I Summary Anesthesia Postop Eval I Summary: Anesthesia Postop Eval I: Assessment Summary Airway patent Yes 01/13/25 13:45 OVAL OR CIRCULAR GLASS CUTTER.SHOF Spontaneous unlabored Yes 01/13/25 13:45 OVAL OR CIRCULAR GLASS CUTTER.SHOF respirations Mental status Awake,Calm 01/13/25 13:45 OVAL OR CIRCULAR GLASS CUTTER.SHOF nausea No 01/13/25 13:45 OVAL OR CIRCULAR GLASS CUTTER.SHOF Vomiting No 01/13/25 13:45 OVAL OR CIRCULAR GLASS CUTTER.SHOF Anesthesia Postop Eval I: Fluid Summary Crystalloid volume administer 500 01/13/25 13:45 OVAL OR CIRCULAR GLASS CUTTER.SHOF (ml) Colloids volume administered ( ml) Blood Product volume administered (ml) Total IV fluid infused 500 01/13/25 13:45 OVAL OR CIRCULAR GLASS CUTTER.SHOF Anesthesia Postop Eval I: Summary Notes Anesthesia Complication No 01/13/25 13:45 OVAL OR CIRCULAR GLASS CUTTER.SHOF Anesthesia Complication Comment: Post-operative progress note Anesthesia: Postop Eval II Evaluation Mental status: Awake and Calm Pain Level: 1 nausea: No Vomiting: No
--- NOTE | 2025-01-13 14:23 | PCM.POSTANE2 ---
Anesthesia Postop Eval I Sum Postop Eval Completion status Anesthesia document: Postop Eval 1 completed: Yes Anesthesia Postop Eval I Summary Anesthesia Postop Eval I Summary: Anesthesia Postop Eval I: Assessment Summary Airway patent Yes 01/13/25 13:45 RESIDENTIAL CHILD CARE COUNSELOR.[email or web address] Spontaneous unlabored Yes 01/13/25 13:45 RESIDENTIAL CHILD CARE COUNSELOR.SHOF respirations Mental status Awake,Calm 01/13/25 13:45 RESIDENTIAL CHILD CARE COUNSELOR.SHOF nausea No 01/13/25 13:45 RESIDENTIAL CHILD CARE COUNSELOR.SHOF Vomiting No 01/13/25 13:45 RESIDENTIAL CHILD CARE COUNSELOR.SHOF Anesthesia Postop Eval I: Fluid Summary Crystalloid volume administer 500 01/13/25 13:45 RESIDENTIAL CHILD CARE COUNSELOR.SHOF (ml) Colloids volume administered ( ml) Blood Product volume administered (ml) Total IV fluid infused 500 01/13/25 13:45 RESIDENTIAL CHILD CARE COUNSELOR.SHOF Anesthesia Postop Eval I: Summary Notes Anesthesia Complication No 01/13/25 13:45 RESIDENTIAL CHILD CARE COUNSELOR.SHOF Anesthesia Complication Comment: Post-operative progress note Anesthesia: Postop Eval II Evaluation Mental status: Awake and Calm Pain Level: 1 nausea: No Vomiting: No
--- NOTE | 2025-01-13 14:53 | CASEMGMT ---
Social Work Patient is accepted at [facility], and pre-cert was started today. Patient is not MR ready on today, 7000 started, transport form started, green sheet in the chart. MILENA Castro
--- NOTE | 2025-01-13 15:31 | CASEMGMT ---
Discharge Planning Updates sent via [facility] to [employer] with note asking for precert to be submitted. SW updated. Sofie Panda DC Planning Asst.
[2025-01-13] MEDS: MENTHOL 226.8 GM JAR 1 APPLIC TOPICAL (19:56)
[2025-01-14 02:50] VITALS: BP 145/79; PULSE 51; RESP 16; TEMP 36.1; O2SAT 95
[2025-01-14] MEDS: MENTHOL 226.8 GM JAR 1 APPLIC TOPICAL (05:02)
[2025-01-14 05:47] LABS: Hematocrit 34.5 % (37-47); Hemoglobin 10.9 g/dL (12.0-15.0); Immature Granulocytes Count 0.040 X10^3/uL (0.0-0.0); Mean Corp Hgb Conc 31.6 g/dL (32-36); Mean Corpuscular Volume 93.2 fL (81-99); Mean Platelet Vol. 9.4 fl (6.2-12.0); NRBC Flagged by Analyzer 0 % (0-5); Platelet Count 275 K/mm3 (150-450); RBC Distribution Width CV 14.4 % (11.6-14.6); RBC Distribution Width SD 48.8 fl (35.1-43.9); Red Blood Count 3.70 M/mm3 (4.2-5.4); White Blood Count 6.5 K/mm3 (4.4-11.0)
[2025-01-14 06:16] LABS: Anion Gap 7 (5-15); BUN 9 mg/dL (4-19); BUN/Creat Ratio 17.1 RATIO (10-20); Calcium,Total 9.9 mg/dL (7.6-11.0); Carbon Dioxide 26.9 mmol/L (21.0-32.0); Chloride 101 mmol/L (98-108); Estimated Creatinine Clearance 55.98 ml/min (50-250); Glucose 101 mg/dL (70-99); Potassium 4.0 mmol/L (3.3-5.1)
[2025-01-14 09:00] VITALS: BP 139/99; PULSE 62; RESP 16; TEMP 36.2; O2SAT 95
--- NOTE | 2025-01-14 13:03 | PN.HOSP_ITS ---
Reason for Visit Chief Complaint: Failure to thrive, dysuria Objective Data Objective Data Vital Signs: Vital Signs Temp Pulse Resp BP Pulse Ox O2 Del Method O2 Flow Rate 97.2 F L 62 16 139/99 H 95 Room Air 2 01/14/25 09:00 01/14/25 09:00 01/14/25 09:00 01/14/25 09:00 01/14/25 09:00 01/14/25 10:00 01/13/25 13:45 Oxygen Flow Rate (L/min) 2 Oxygen Delivery Method Room Air Weight: 197 lb 15.602 oz Body Mass Index (BMI) 39.9 Intake & Output: Intake and Output for Last 24 Hours 01/12/25 01/13/25 01/14/25 23:59 23:59 23:59 Intake Total 50 / 50 50 / 50 50 / 50 Output Total 800 / 1000 400 / 400 Balance -750 / -950 -350 / -350 50 / 50 Lab / Micro Data 01/14/25 05:03 01/14/25 05:03 Labs: Laboratory Results - last 24 hr 01/14/25 05:03: WBC 6.5, RBC 3.70 L, Hgb 10.9 L, Hct 34.5 L, MCV 93.2, MCH 29.5, MCHC 31.6 L, RDW Std Deviation 48.8 H, RDW Coeff of Cory 14.4, Plt Count 275, MPV 9.4, Immature Gran % (Auto) 0.600, Neut % (Auto) 74.4 H, Lymph % (Auto) 11.8 L, [place] % (Auto) 10.2 H, Eos % (Auto) 2.5, Baso % (Auto) 0.5, Absolute Neuts (auto) 4.8, Absolute Lymphs (auto) 0.76 L, Nucleated RBC % 0, Sodium 135, Potassium 4.0, Chloride 101, Carbon Dioxide 26.9, Anion Gap 7, BUN 9, Creatinine 0.51 L, Estim Creat Clear Calc 55.98, Est GFR (MDRD) Non-Af 94, BUN/Creatinine Ratio 17.1, Glucose 101 H, Calcium 9.9 Micro: Microbiology 01/09/25 21:37 Urine, Catheterized Urine Culture - Final Escherichia coli Proteus mirabilis Physical Exam Narrative Seen and examined. Patient had cystoscopy yesterday and was suggestive of hemorrhagic cystitis. Findings conveyed to the patient. Patient is admitted with burning micturition, sometimes hematuria. She also has increased urgency but denies frequency but she is urinary incontinent on diaper. She denies any urinary catheterization but it was more like external urine catheter in recent past. She was recently treated with Macrobid for UTI. Physical exam General: Alert, Oriented x3, Cooperative, sitting in the chair. HEENT: Atraumatic, PERRLA, EOMI, Normocephalic. Oral: No Gingival or Mucosal Lesions/ Ulcerations Neck: Supple, No JVD, Negative Carotid Bruits Chest wall/Lungs: Air entry diminished in bilateral. No crepitation/rhonchi. No hypoxia. Cardiovascular: Irregular rate and rhythm, systolic murmur Abdomen: Bowel Sounds Present, Soft, Non Tender, Non-Distended : Murphy catheter. No significant hematuria overnight no renal angle tenderness. No suprapubic tenderness. Extremities: Mild pedal/ankle edema, Capillary Refill Less than 3 Seconds Skin: No rashes, No breakdown Musculoskeletal: Right ankle deformity, had surgery in the past. Chronic no Tenderness to Palpation of Joints or Extremities Neurological: Cranial nerves II-XII grossly intact, DTR 2+/4. No acute focal neurological deficit. Psych/Mental Status: Normal Affect, Appropriate. 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 transplanted heart: [place] heart Qualified Code(s): I25.10 - Atherosclerotic heart disease of [place] coronary artery without angina pectoris (8) Essential (primary) hypertension: (9) Hyperlipidemia: QUALIFIERS: Hyperlipidemia type: pure hypercholesterolemia Q ualified Code(s): E78.00 - Pure hypercholesterolemia, unspecified; E78.0 - Pure hypercholesterolemia PLAN: Plan 79-year-old female admitted with burning pain during micturition, increased frequency, hematuria since Thursday last 3 days. Patient was discharged from [facility] due to insurance issues. Failure to thrive. 1. Failure to thrive, inability to do ADL: Patient is being admitted on PCU floor as MedSurg status. PT OT ordered. Case management consult for placement. Has chronic deformity of both feet 01/11 overall patient feels better sitting in the chair. 2. Urinary tract infection–patient has burning micturition and increased urgency. Sometimes hematuria. UA shows nitrite negative, LE 500, WBC 0-5, RBC 0-5 cells, bacteria 4+. Urine culture pending Rocephin 1 g IV every 24 hours, repeat CBC BMP in the morning, encourage fluids 01/11: Urine culture is still pending. CT reviewed shows cystitis changes in the bladder with nonobstructing stones in the dependent bladder largest measuring 3 mm. Bilateral urothelial thickening probably ascending urinary tract infection. No renal mass or renal calculi. No hydronephrosis. Urologist consulted and discussed Dr. Stephens. He will see the patient. Continue antibiotic 01/12: No major change in H&H. Over last 2 days dropped from 11.4-10.6, does not qualify for acute anemia. Chronic normocytic anemia. Eliquis on hold. Plan for cystoscopy tomorrow. 01/13: Plan for cystoscopy today. Hemoglobin 10.5 but was similar on 01/11 went up to 12.2 on 01/12. I think 12.2 is outlier and may be lab error. Urine culture shows E. coli and Proteus mirabilis 2 organisms most likely it is contamination. Continue IV antibiotic. 01/14: Patient had cystoscopy yesterday, on 01/13. Findings were suggestive of hemorrhagic cystitis but no specific tumor, stone or found. Had bilateral retrograde pyelograms. Overall doing well. Today patient is medically ready. Plan for discharge to SNF probably on Thursday 3. Hypertension–continue routine antihypertensive therapy. Blood pressure is normal 4. Hyperlipidemia–continue statin medication 5. Chronic A-fib: On exam pulse is irregularly irregular. Heart rate is controlled. On diltiazem extended release 120 mg daily and Eliquis. 6. Hypothyroidism on levothyroxine 75 mcg daily. 7. History of low blood pressure/hypotension on midodrine. DVT prophylaxis–on Eliquis 5 mg twice daily. CODE STATUS–DNR Comfort Care arrest confirmed with patient and family Microbiology Past 72 Hours 01/09/25 21:37 Urine, Catheterized Urine Culture - Final Escherichia coli Proteus mirabilis Laboratory Results 01/14/25 05:03: WBC 6.5, RBC 3.70 L, Hgb 10.9 L, Hct 34.5 L, MCV 93.2, MCH 29.5, MCHC 31.6 L, RDW Std Deviation 48.8 H, RDW Coeff of Cory 14.4, Plt Count 275, MPV 9.4, Immature Gran % (Auto) 0.600, Neut % (Auto) 74.4 H, Lymph % (Auto) 11.8 L, [place] % (Auto) 10.2 H, Eos % (Auto) 2.5, Baso % (Auto) 0.5, Absolute Neuts (auto) 4.8, Absolute Lymphs (auto) 0.76 L, Nucleated RBC % 0, Sodium 135, Potassium 4.0, Chloride 101, Carbon Dioxide 26.9, Anion Gap 7, BUN 9, Creatinine 0.51 L, Estim Creat Clear Calc 55.98, Est GFR (MDRD) Non-Af 94, BUN/Creatinine Ratio 17.1, Glucose 101 H, Calcium 9.9 Charges/Coding Visit Charges Inpatient E&M: 98859 Subs Hosp L2
[2025-01-14 15:00] VITALS: BP 125/66; PULSE 79; RESP 18; TEMP 36.3; O2SAT 96
--- NOTE | 2025-01-14 20:16 | PCM.HOSP.N ---
Hospitalist Note Patient with several loose stools, certainly could be UTI or the abx, to be cautious however will obtain cdiff and enteric.
[2025-01-14 21:30] VITALS: BP 143/100; PULSE 69; RESP 18; TEMP 36.8; O2SAT 95
[2025-01-15 03:15] VITALS: BP 138/95; PULSE 97; RESP 18; TEMP 36.5; O2SAT 94
[2025-01-15 09:22] VITALS: BP 139/87; PULSE 77; RESP 16; TEMP 36.4; O2SAT 95
--- NOTE | 2025-01-15 13:34 | PN.HOSP_ITS ---
Reason for Visit Chief Complaint: Failure to thrive, dysuria Objective Data Objective Data Vital Signs: Vital Signs Temp Pulse Resp BP Pulse Ox O2 Del Method O2 Flow Rate 97.6 F L 77 16 139/87 H 95 Room Air 2 01/15/25 09:22 01/15/25 09:22 01/15/25 09:22 01/15/25 09:22 01/15/25 09:22 01/15/25 10:00 01/13/25 13:45 Oxygen Flow Rate (L/min) 2 Oxygen Delivery Method Room Air Weight: 197 lb 15.602 oz Body Mass Index (BMI) 39.9 Intake & Output: Intake and Output for Last 24 Hours 01/13/25 01/14/25 01/15/25 23:59 23:59 23:59 Intake Total 50 / 50 541.75 / 541.75 50 / 50 Output Total 400 / 400 250 / 250 Balance -350 / -350 541.75 / 541.75 -200 / -200 Lab / Micro Data 01/14/25 05:03 01/14/25 05:03 Micro: Microbiology 01/14/25 19:56 Stool Clostridioides difficile (PCR) - Final 01/09/25 21:37 Urine, Catheterized Urine Culture - Final Escherichia coli Proteus mirabilis Physical Exam Narrative Seen and examined. Patient had cystoscopy on 01/13 and was suggestive of hemorrhagic cystitis. Findings conveyed to the patient. Patient asked about when to resume Eliquis. Discussed with Dr. Stephens Patient is admitted with burning micturition, sometimes hematuria. She also has increased urgency but denies frequency but she is urinary incontinent on diaper. She denies any urinary catheterization but it was more like external urine catheter in recent past. She was recently treated with Macrobid for UTI. Physical exam General: Alert, Oriented x3, Cooperative, sitting in the chair. HEENT: Atraumatic, PERRLA, EOMI, Normocephalic. Oral: No Gingival or Mucosal Lesions/ Ulcerations Neck: Supple, No JVD, Negative Carotid Bruits Chest wall/Lungs: Air entry diminished in bilateral. No crepitation/rhonchi. No hypoxia. Cardiovascular: Irregular rate and rhythm, systolic murmur Abdomen: Bowel Sounds Present, Soft, Non Tender, Non-Distended : Murphy catheter. No significant hematuria overnight no renal angle tenderness. No suprapubic tenderness. Extremities: Mild pedal/ankle edema, Capillary Refill Less than 3 Seconds Skin: No rashes, No breakdown Musculoskeletal: Right ankle deformity, had surgery in the past. Chronic no Tenderness to Palpation of Joints or Extremities Neurological: Cranial nerves II-XII grossly intact, DTR 2+/4. No acute focal neurological deficit. Psych/Mental Status: Normal Affect, Appropriate. 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 transplanted heart: [place] heart Qualified Code(s): I25.10 - Atherosclerotic heart disease of [place] coronary artery without angina pectoris (8) Essential (primary) hypertension: (9) Hyperlipidemia: QUALIFIERS: Hyperlipidemia type: pure hypercholesterolemia Q ualified Code(s): E78.00 - Pure hypercholesterolemia, unspecified; E78.0 - Pure hypercholesterolemia PLAN: Plan 79-year-old female admitted with burning pain during micturition, increased frequency, hematuria since Thursday last 3 days. [facility]. Failure to thrive. 1. Failure to thrive, inability to do ADL: Patient is being admitted on PCU floor as MedSurg status. PT OT ordered. Case management consult for placement. Has chronic deformity of both feet 01/11 overall patient feels better sitting in the chair. 2. Urinary tract infection–patient has burning micturition and increased urgency. Sometimes hematuria. UA shows nitrite negative, LE 500, WBC 0-5, RBC 0-5 cells, bacteria 4+. Urine culture pending Rocephin 1 g IV every 24 hours, repeat CBC BMP in the morning, encourage fluids 01/11: Urine culture is still pending. CT reviewed shows cystitis changes in the bladder with nonobstructing stones in the dependent bladder largest measuring 3 mm. Bilateral urothelial thickening probably ascending urinary tract infection. No renal mass or renal calculi. No hydronephrosis. Urologist consulted and discussed Dr. Stephens. He will see the patient. Continue antibiotic 01/12: No major change in H&H. Over last 2 days dropped from 11.4-10.6, does not qualify for acute anemia. Chronic normocytic anemia. Eliquis on hold. Plan for cystoscopy tomorrow. 01/13: Plan for cystoscopy today. Hemoglobin 10.5 but was similar on 01/11 went up to 12.2 on 01/12. I think 12.2 is outlier and may be lab error. Urine culture shows E. coli and Proteus mirabilis 2 organisms most likely it is contamination. Continue IV antibiotic. 01/14: Patient had cystoscopy yesterday, on 01/13. Findings were suggestive of hemorrhagic cystitis but no specific tumor, stone or found. Had bilateral retrograde pyelograms. Overall doing well. Today patient is medically ready. Plan for discharge to SNF probably on Monday 01/15: Discussed with Dr. Stephens. Cystoscopy more suggestive of inflammatory/hemorrhagic cystitis. He advised to resume Eliquis tomorrow after 5 days of holding it. Monitor CBC tomorrow. Plan for DC to SNF and monitor CBC and urine for hematuria as an outpatient. 3. Hypertension–continue routine antihypertensive therapy. Blood pressure is normal 4. Hyperlipidemia–continue statin medication 5. Chronic A-fib: On exam pulse is irregularly irregular. Heart rate is controlled. On diltiazem extended release 120 mg daily and Eliquis. 6. Hypothyroidism on levothyroxine 75 mcg daily. 7. History of low blood pressure/hypotension on midodrine. DVT prophylaxis–on Eliquis 5 mg twice daily. CODE STATUS–DNR Comfort Care arrest confirmed with patient and family Microbiology Past 72 Hours 01/09/25 21:37 Urine, Catheterized Urine Culture - Final Escherichia coli Proteus mirabilis Laboratory Results 01/14/25 05:03: WBC 6.5, RBC 3.70 L, Hgb 10.9 L, Hct 34.5 L, MCV 93.2, MCH 29.5, MCHC 31.6 L, RDW Std Deviation 48.8 H, RDW Coeff of Cory 14.4, Plt Count 275, MPV 9.4, Immature Gran % (Auto) 0.600, Neut % (Auto) 74.4 H, Lymph % (Auto) 11.8 L, [place] % (Auto) 10.2 H, Eos % (Auto) 2.5, Baso % (Auto) 0.5, Absolute Neuts (auto) 4.8, Absolute Lymphs (auto) 0.76 L, Nucleated RBC % 0, Sodium 135, Potassium 4.0, Chloride 101, Carbon Dioxide 26.9, Anion Gap 7, BUN 9, Creatinine 0.51 L, Estim Creat Clear Calc 55.98, Est GFR (MDRD) Non-Af 94, BUN/Creatinine Ratio 17.1, Glucose 101 H, Calcium 9.9 Charges/Coding Visit Charges Inpatient E&M: 97912 Subs Hosp L2
[2025-01-15 14:50] VITALS: BP 123/107; PULSE 80; RESP 16; TEMP 36.8; O2SAT 96
[2025-01-15 16:16] VITALS: BP 131/92
[2025-01-15] MEDS: Lactobacillis Acidophilus 1 CAP PO ×2 (16:18→19:29)
[2025-01-15 20:10] VITALS: BP 150/100; PULSE 94; RESP 18; TEMP 36.6; O2SAT 95
[2025-01-16 03:00] VITALS: BP 148/90; PULSE 85; RESP 18; TEMP 36.3; O2SAT 94
[2025-01-16 07:27] LABS: Anion Gap 8 (5-15); BUN 6 mg/dL (4-19); BUN/Creat Ratio 13.5 RATIO (10-20); Calcium,Total 9.7 mg/dL (7.6-11.0); Carbon Dioxide 23.7 mmol/L (21.0-32.0); Chloride 102 mmol/L (98-108); Estimated Creatinine Clearance 55.98 ml/min (50-250); Glucose 94 mg/dL (70-99); Potassium 4.2 mmol/L (3.3-5.1)
[2025-01-16 07:32] LABS: Hematocrit 33.5 % (37-47); Hemoglobin 10.5 g/dL (12.0-15.0); Immature Granulocytes Count 0.050 X10^3/uL (0.0-0.0); Mean Corp Hgb Conc 31.3 g/dL (32-36); Mean Corpuscular Volume 91.8 fL (81-99); Mean Platelet Vol. 9.3 fl (6.2-12.0); NRBC Flagged by Analyzer 0 % (0-5); Platelet Count 273 K/mm3 (150-450); RBC Distribution Width CV 14.5 % (11.6-14.6); RBC Distribution Width SD 48.7 fl (35.1-43.9); Red Blood Count 3.65 M/mm3 (4.2-5.4); White Blood Count 4.9 K/mm3 (4.4-11.0)
[2025-01-16 08:11] VITALS: BP 115/71; PULSE 98; RESP 18; TEMP 36.6; O2SAT 98
[2025-01-16] MEDS: MENTHOL 226.8 GM JAR 1 APPLIC TOPICAL (08:28)
--- NOTE | 2025-01-16 08:45 | CASEMGMT ---
[facility] has obtained auth to admit. SW updated. Sofie Panda DC Planning Asst.
[2025-01-16] MEDS: Lactobacillis Acidophilus 1 CAP PO ×2 (10:18→13:06)
[2025-01-16] MEDS: APIXABAN 5 MG TABLET PO (10:25)
--- NOTE | 2025-01-16 12:10 | CASEMGMT ---
Social Work JANETH informed the patient she has been approved to DC to [facility]. SW in formed her she will DC today. JANETH informed her transportation will be scheduled for her. MILENA Castro
[2025-01-16 13:04] VITALS: BP 95/71; PULSE 98; RESP 18; TEMP 36.6; O2SAT 98
[2025-01-16 14:17] VITALS: BP 140/63; PULSE 55; RESP 18; TEMP 36.4; O2SAT 97
--- NOTE | 2025-01-16 14:40 | CASEMGMT ---
Social Work SW called the daughter Minnie and notified her that the patient is approved to DC to [facility] today. SW informed Minnie and she will be notified of the transportation time once it is scheduled. MILENA Castro
--- NOTE | 2025-01-16 15:09 | PCM.CONS.GEN ---
Assessment & Plan Assessment/Plan (1) Cystitis: PLAN: Completed course with ceftriaxone for ecoli and proteus complicated uti. stool pcr with yersinia, but denies diarrhea or abd pain. No fever, normal wbc. No role for additional abx. Will follow as needed, thank you HPI Consult Data Date of Consult: 01/16/25 HPI Narrative Reason for Consultation: + stool pcr HPI Narrative: AYAN CARRILLO, is a 79 F who presented 01/10 with several days dysuria, hematuria. Dx with uti, had been on macrobid. Admitted, seen by urology. Given course of ceftriaxone, feeling better. Stool pcr with yersinia, but denies diarrhea or abd pain. Full ROS performed and neg except as noted above. [facility] Medical History Frequent falls Ambulatory dysfunction Morbid obesity with BMI of 40.0-44.9, adult Hypothyroidism GERD (gastroesophageal reflux disease) GI bleed Atrial fibrillation Hypertension Myocardial infarction Obesity Essential (primary) hypertension Atherosclerotic heart disease of [place] coronary artery without angina pectoris Hyperlipidemia GERD (gastroesophageal reflux disease) Osteoarthritis Home Medications Medication Instructions Recorded Last Taken Type nitroglycerin 0.4 mg sublingual 0.4 mg sublingual Q5M PRN Chest 08/10/23 10/25/24 Rx tablet Pain #25 tabs omeprazole 20 mg capsule,delayed 20 mg PO DAILY #90 caps 08/01/24 01/10/25 Rx release apixaban 5 mg tablet (Eliquis) 5 mg PO BID #60 tabs 09/29/24 01/10/25 Rx diltiazem HCl 120 mg capsule,24 120 mg PO QAM #30 caps 10/14/24 01/13/25 Rx hr,extended release (Tiadylt ER) levothyroxine 75 mcg tablet 75 mcg PO DAILY hypothyroid 10/25/24 01/13/25 History potassium gluconate 595 mg (99 mg) 595 mg PO DAILY 10/25/24 10/25/24 History tablet acetaminophen 325 mg tablet 650 mg (2 x 325 mg) PO Q6H PRN PRN 11/30/24 Unknown Rx Pain 1-5 or Fever #0 tabs aspirin 81 mg chewable tablet 81 mg PO QHS 30 days #30 tabs 11/30/24 01/10/25 Rx meclizine 25 mg tablet 25 mg PO 4X/DAY PRN PRN 11/30/24 Unknown Rx (Travel-Ease (meclizine)) DIZZINESS/VERTIGO #0 tabs midodrine 5 mg tablet 10 mg (2 x 5 mg) PO TIDCM #0 tabs 11/30/24 01/09/25 Rx Allergy/AdvReac Type Severity Reaction Status Date / Time hydrochlorothiazide AdvReac Intermediate Constipatio Verified 01/09/25 21:23 n Family History Father CAD (coronary artery disease) Mother CHF (congestive heart failure) Sister Hypertension Surgical History History of appendectomy History of cholecystectomy History of left heart catheterization (06/04/08) History of coronary angioplasty (09/20/07) History of laparoscopic cholecystectomy History of total hysterectomy Social History housing: house Smoking Status: Never smoker alcohol intake: never substance use type: does not use Physical Exam Const alert, oriented x3 and no apparent distress General Appearance: cooperative HEENT normocephalic and head/scalp atraumatic Eyes PERRL and EOMs intact bilaterally Neck supple and No nodes Resp normal air movement and clear to auscultation bilaterally Cardio regular rate and regular rhythm GI soft to palpation, non-tender and non-distended Extremity General Extremity: edema Skin no rashes or lesions noted Neuro CN's II-XII intact bilaterally Lab / Micro Data Attestation: I reviewed the patient's lab results. 01/16/25 07:23 01/16/25 06:38 Labs: Laboratory Results - last 24 hr 01/16/25 06:38: Sodium 134, Potassium 4.2, Chloride 102, Carbon Dioxide 23.7, Anion Gap 8, BUN 6, Creatinine 0.45 L, Estim Creat Clear Calc 55.98, Est GFR (MDRD) Non-Af 97, BUN/Creatinine Ratio 13.5, Glucose 94, Calcium 9.7 01/16/25 07:23: WBC 4.9, RBC 3.65 L, Hgb 10.5 L, Hct 33.5 L, MCV 91.8, MCH 28.8, MCHC 31.3 L, RDW Std Deviation 48.7 H, RDW Coeff of Cory 14.5, Plt Count 273, MPV 9.3, Immature Gran % (Auto) 1.000 H, Neut % (Auto) 70.6 H, Lymph % (Auto) 14.5 L, [place] % (Auto) 10.4 H, Eos % (Auto) 2.9, Baso % (Auto) 0.6, Absolute Neuts (auto) 3.5, Absolute Lymphs (auto) 0.71 L, Nucleated RBC % 0 Micro: Microbiology 01/14/25 19:56 Stool Enteric Bacteriology - Final Yersinia enterocolitica 01/14/25 19:56 Stool Clostridioides difficile (PCR) - Final
--- NOTE | 2025-01-16 15:46 | TREXTCAR_ITS ---
Diet Diet Order/Speech Therapy: INPATIENT Hospital Diet / Speech Therapy Order(s) 01/13/25 13:20 Diet: Regular - General Routine Orders/Code Status Suppository Type: Dulcolax 10mg Suppository Frequency: Daily PRN Routine Lab Work: CBC (2-3 days to check hgb) and - (TSH and free T4 in 2-3 days to check if synthroid dose needs changed) Code Status: DNRCC-A (No intubation) DC O2, CPAP, BIPAP needs Home O2 Discharge instructions: No Therapies Physical Therapy: Eval and Treat Occupational Therapy: Eval and Treat Problem/Diagnosis (1) Cystitis: Status: Acute Code(s): N30.90 - Cystitis, unspecified without hematuria Plan #Hemorrhagic cystitis #Ecoli and proteus UTI- resolved #Asymptomaic yersinia stool PCR + #afib #morbid obesity #hypothyroidism #HTN #GERD 79-year-old female with a history of A-fib, morbid obesity, hypothyroidism, hypertension, GERD presented to [facility] ED 01/10/2025 for d ysuria and failure to thrive. She had recently been discharged from SNF but developed increased weakness and represented to the ED w/ UA concerning for UTI and CT w/ moderate diffuse thickening of bladder wall w/ probable cystitis. She was started on abx and admitted to the hospital. Ultimately urology was consulted for gross hematuria and she underwent cystoscopy and bilateral retrograde pyelograms 01/13/2025 with findings consistent with hemorrhagic cystitis. Patient completed antibiotic course. It was advised to resume Eliquis and CBC can be rechecked at [facility] and urine can be monitored for any further hematuria. Patient overall improved and on day of discharge denied any burning on urination or any changes in urination. No abdominal pain. 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 On day of discharge patient is feeling better, has some joint pain which is not new and had a headache which was improving with Tylenol. Nurse did report that she reported feeling a little dizzy and had a systolic blood pressure in the 90s, advised to recheck in an hour and repeat blood pressure 140/63. Of note patient had got her a.m. midodrine due to not being hypotensive and responded well after she was given her afternoon midodrine so suspect this was the reason. No additional complaints, patient discharged to [facility] in stable condition. - It was advised to resume Eliquis and CBC can be rechecked at SNF and urine can be monitored for any further hematuria - Recommend CBC in 2 to 3 days - Your Eliquis was continued but your aspirin has been held, I do not see an indication to take both - Additionally was previously recommended on discharge 11/30/2024 if that your Synthroid be decreased to 50 mcg and labs rechecked, appears you are on 75 mcg, would recommend TSH and free T4 in 2 to 3 days to assess levels and if this does necessitate dosing change unless values have been recently obtained Allergies/Procedures Done in Hospital Allergies hydrochlorothiazide Adverse Reaction (Intermediate, Verified 01/09/25 21:23) Constipation and urinary incontinence Type of Care/Length of Stay Estimated LOS: Convalescent Care Less Than 30 days Type of Care Needed: Skilled Rehab Potential: Fair Prognosis: Fair Additional Orders/Day of Discharge Day of Discharge: 01/16/25 Dietary and Speech Recommendations Dietitian Recommendations/Changes: Continue Regular diet to optimize oral intakes. Will monitor weight for trends. Discharge Plan Admission Admit Date/Time: 01/10/25 02:29 Primary Reason for Your Visit: Generalized weakness, UTI Attending Provider: Aranza Little Primary Care Provider: Lino Gruber Consulting Providers: Lino Gruber; Santosh Stephens; Paul Lauren; Bubba Martinez Instructions Patient Instructions: ED Fall Prevention Additional Instructions / Restrictions: DISCHARGE INSTRUCTIONS PLEASE READ *Please take this with you to your next doctors appointment* - It was advised to resume Eliquis and CBC can be rechecked at SNF and urine can be monitored for any further hematuria - Recommend CBC in 2 to 3 days - Your Eliquis was continued but your aspirin has been held, I do not see an indication to take both - Additionally was previously recommended on discharge 11/30/2024 if that your Synthroid be decreased to 50 mcg and labs rechecked, appears you are on 75 mcg, would recommend TSH and free T4 in 2 to 3 days to assess levels and if this does necessitate dosing change unless values have been recently obtained -Please call your primary care provider's office upon discharge to schedule a hospital follow up within 1 week. -For any concerning signs or symptoms please call 911 or proceed to the nearest emergency department Discharge Orders/Prescriptions Prescriptions: Continued nitroglycerin 0.4 mg tablet, sublingual 0.4 mg SUBLINGUAL Q5M PRN (Reason: Chest Pain) Qty: 25 2RF Patient Comments: chest pain levothyroxine 75 mcg tablet 75 mcg PO DAILY acetaminophen 325 mg Tablet 650 mg PO Q6H PRN PRN (Reason: Pain 1-5/10 or Fever) Qty: 0 0RF midodrine 5 mg Tablet 10 mg PO TIDCM Qty: 0 0RF Rx Instructions: Hold if SBP more than 100 mmHg meclizine [Travel-Ease (meclizine)] 25 mg Tablet 25 mg PO 4X/DAY PRN PRN (Reason: DIZZINESS/VERTIGO) Qty: 0 0RF omeprazole 20 mg capsule,delayed release(DR/EC) 20 mg PO DAILY Qty: 90 3RF Eliquis 5 mg tablet 5 mg PO BID Qty: 60 11RF diltiazem HCl [Tiadylt ER] 120 mg capsule,extended release 24 hr 120 mg PO QAM Qty: 30 3RF Discontinued potassium gluconate 595 mg (99 mg) tablet 595 mg PO DAILY aspirin 81 MG tablet,chewable 81 mg PO QHS 30 Days Qty: 30 0RF Patient Comments: [facility] Rx Instructions: Discontinue if hemoglobin drops less than 10 g as patient already on Eliquis. Referrals / Follow Up: Lino Gruber MD [Primary Care Provider, Family Practice] Disposition Disposition (needs filled in before D/C Order can be placed): [facility]-Way Facility
--- NOTE | 2025-01-16 15:48 | DS.PCM_ITS ---
Providers Date of Admission: 01/10/25 Date of Discharge: 01/16/25 Primary Care Physician: Dr. Lino Gruber MD Consultations 01/11/25 09:22 Consult: Urology Routine Consulting Provider: Santosh Stephens Reason for Consult: hematuria with cystitis changes on CT EMERGENT Consult: No Notified: Yes Date Notified: 01/11/25 Time Notified: 09:22 Method of Notification: Verbal 01/16/25 08:58 Consult: Infectious Disease Routine Consulting Provider: Bubba Martinez Reason for Consult: symptomatic yersinia enterocolitica, otherwise ready for SNF EMERGENT Consult: No Notified: Yes Date Notified: 01/16/25 Time Notified: 09:22 Method of Notification: Text Reason For Visit: FAILURE TO THRIVE, URINARY TRACT INFECTION Diagnosis Discharge Diagnosis (1) Cystitis: Status: Acute Code(s): N30.90 - Cystitis, unspecified without hematuria Plan #Hemorrhagic cystitis #Ecoli and proteus UTI- resolved #Asymptomaic yersinia stool PCR + #afib #morbid obesity #hypothyroidism #HTN #GERD Medications at Discharge Home Medications nitroglycerin 0.4 mg sublingual tablet 0.4 mg sublingual Q5M PRN Chest Pain #25 tabs 08/10/23 omeprazole 20 mg capsule,delayed release 20 mg PO DAILY #90 caps 08/01/24 apixaban 5 mg tablet (Eliquis) 5 mg PO BID #60 tabs 09/29/24 diltiazem HCl 120 mg capsule,24 hr,extended release (Tiadylt ER) 120 mg PO QAM #30 caps 10/14/24 levothyroxine 75 mcg tablet 75 mcg PO DAILY hypothyroid 10/25/24 acetaminophen 325 mg tablet 650 mg (2 x 325 mg) PO Q6H PRN PRN Pain 1-5/10 or Fever #0 tabs 11/30/24 meclizine 25 mg tablet (Travel-Ease (meclizine)) 25 mg PO 4X/DAY PRN PRN DIZZINESS/VERTIGO #0 tabs 11/30/24 midodrine 5 mg tablet 10 mg (2 x 5 mg) PO TIDCM #0 tabs 11/30/24 Hospital Course Summary of Care Provided Minutes Spent on Discharge: 33 Hospital Course: 79-year-old female with a history of A-fib, morbid obesity, hypothyroidism, hypertension, GERD presented to [facility] ED 01/10/2025 for dysuria and failure to thrive. She had recently been discharged from [facility] but developed increased weakness and represented to the ED w/ UA concerning for UTI and CT w/ moderate diffuse thickening of bladder wall w/ probable cystitis. She was started on abx and admitted to the hospital. Ultimately urology was consulted for gross hematuria and she underwent cystoscopy and bilateral retrograde pyelograms 01/13/2025 with findings consistent with hemorrhagic cystitis. Patient completed antibiotic course. It was advised to resume Eliquis and CBC can be rechecked at [facility] and urine can be monitored for any further hematuria. Patient overall improved and on day of discharge denied any burning on urination or any changes in urination. No abdominal pain. 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 On day of discharge patient is feeling better, has some joint pain which is not new and had a headache which was improving with Tylenol. Nurse did report that she reported feeling a little dizzy and had a systolic blood pressure in the 90s, advised to recheck in an hour and repeat blood pressure 140/63. Of note patient had got her a.m. midodrine due to not being hypotensive and responded well after she was given her afternoon midodrine so suspect this was the reason. No additional complaints, patient discharged to [facility] in stable condition. - It was advised to resume Eliquis and CBC can be rechecked at [facility] and urine can be monitored for any further hematuria - Recommend CBC in 2 to 3 days - Your Eliquis was continued but your aspirin has been held, I do not see an indication to take both - Additionally was previously recommended on discharge 11/30/2024 if that your Synthroid be decreased to 50 mcg and labs rechecked, appears you are on 75 mcg, would recommend TSH and free T4 in 2 to 3 days to assess levels and if this does necessitate dosing change unless values have been recently obtained Physical Exam Narrative General: Alert, no apparent distress HEENT: Atraumatic, normocephalic Eyes: Anicteric, normal conjunctiva, extraocular movements grossly intact Neck: Supple Respiratory: Clear to auscultation bilaterally, normal respiratory effort Cardiovascular: Regular rate GI: Soft, nontender, nondistended Extremities: No edema Musculoskeletal: Moving all extremities Neuro: No overt focal neurological deficits Skin: No rashes appreciated Psych: Cooperative Weight / BMI Weight Weight: 89.8 kg Body Mass Index (BMI) 39.9 ABG / Lab / Microbiology Data 01/16/25 07:23 01/16/25 06:38 Laboratory: Laboratory Results - last 24 hr 01/16/25 06:38: Sodium 134, Potassium 4.2, Chloride 102, Carbon Dioxide 23.7, Anion Gap 8, BUN 6, Creatinine 0.45 L, Estim Creat Clear Calc 55.98, Est GFR (MDRD) Non-Af 97, BUN/Creatinine Ratio 13.5, Glucose 94, Calcium 9.7 01/16/25 07:23: WBC 4.9, RBC 3.65 L, Hgb 10.5 L, Hct 33.5 L, MCV 91.8, MCH 28.8, MCHC 31.3 L, RDW Std Deviation 48.7 H, RDW Coeff of Cory 14.5, Plt Count 273, MPV 9.3, Immature Gran % (Auto) 1.000 H, Neut % (Auto) 70.6 H, Lymph % (Auto) 14.5 L , Edgar % (Auto) 10.4 H, Eos % (Auto) 2.9, Baso % (Auto) 0.6, Absolute Neuts (auto) 3.5, Absolute Lymphs (auto) 0.71 L, Nucleated RBC % 0 Microbiology: Microbiology 01/14/25 19:56 Stool Enteric Bacteriology - Final Yersinia enterocolitica 01/14/25 19:56 Stool Clostridioides difficile (PCR) - Final 01/09/25 21:37 Urine, Catheterized Urine Culture - Final Escherichia coli Proteus mirabilis D/C Instructions DC O2, CPAP, BIPAP Needs Home O2 Discharge instructions: No Meaningful Use Info Meaningful Use Meaningful Use Diagnoses (Choose all that apply): None applicable Discharge Plan Admission Admit Date/Time: 01/10/25 02:29 Primary Reason for Your Visit: Generalized weakness, UTI Attending Provider: Aranza Little Primary Care Provider: Lino Gruber Consulting Providers: Lino Gruber; Santosh Stephens; Paul Lauren; Bubba Martinez Instructions Patient Instructions: ED Fall Prevention Additional Instructions / Restrictions: DISCHARGE INSTRUCTIONS PLEASE READ *Please take this with you to your next doctors appointment* - It was advised to resume Eliquis and CBC can be rechecked at [facility] and urine can be monitored for any further hematuria - Recommend CBC in 2 to 3 days - Your Eliquis was continued but your aspirin has been held, I do not see an indication to take both - Additionally was previously recommended on discharge 11/30/2024 if that your Synthroid be decreased to 50 mcg and labs rechecked, appears you are on 75 mcg, would recommend TSH and free T4 in 2 to 3 days to assess levels and if this does necessitate dosing change unless values have been recently obtained -Please call your primary care provider's office upon discharge to schedule a hospital follow up within 1 week. -For any concerning signs or symptoms please call 911 or proceed to the nearest emergency department Discharge Orders/Prescriptions Prescriptions: Continued nitroglycerin 0.4 mg tablet, sublingual 0.4 mg SUBLINGUAL Q5M PRN (Reason: Chest Pain) Qty: 25 2RF Patient Comments: chest pain levothyroxine 75 mcg tablet 75 mcg PO DAILY acetaminophen 325 mg Tablet 650 mg PO Q6H PRN PRN (Reason: Pain 1-07/09 or Fever) Qty: 0 0RF midodrine 5 mg Tablet 10 mg PO TIDCM Qty: 0 0RF Rx Instructions: Hold if SBP more than 100 mmHg meclizine [Travel-Ease (meclizine)] 25 mg Tablet 25 mg PO 4X/DAY PRN PRN (Reason: DIZZINESS/VERTIGO) Qty: 0 0RF omeprazole 20 mg capsule,delayed release(DR/EC) 20 mg PO DAILY Qty: 90 3RF Eliquis 5 mg tablet 5 mg PO BID Qty: 60 11RF diltiazem HCl [Tiadylt ER] 120 mg capsule,extended release 24 hr 120 mg PO QAM Qty: 30 3RF Discontinued potassium gluconate 595 mg (99 mg) tablet 595 mg PO DAILY aspirin 81 MG tablet,chewable 81 mg PO QHS 30 Days Qty: 30 0RF Patient Comments: [facility] Rx Instructions: Discontinue if hemoglobin drops less than 10 g as patient already on Eliquis. Referrals / Follow Up: Lino Gruber MD [Primary Care Provider, Family Practice] Disposition Disposition (needs filled in before D/C Order can be placed): [facility] Charges/Coding Visit Charges Inpatient E&M: 19974 Disch Hosp >30min
[2025-01-16 16:03] VITALS: BP 114/41; PULSE 57; RESP 18; TEMP 36.5; O2SAT 94
--- NOTE | 2025-01-16 16:07 | PHA.DC.MR.R ---
Pharmacy ID Med Reconciliation Pharmacy Service has performed discharge medication reconciliation for this patient. The patient's discharge medication list was reviewed for discrepancies and discrepancies were resolved. Medications at Discharge Home Medications nitroglycerin 0.4 mg sublingual tablet 0.4 mg sublingual Q5M PRN Chest Pain #25 tabs 08/10/23 omeprazole 20 mg capsule,delayed release 20 mg PO DAILY #90 caps 08/01/24 apixaban 5 mg tablet (Eliquis) 5 mg PO BID #60 tabs 09/29/24 diltiazem HCl 120 mg capsule,24 hr,extended release (Tiadylt ER) 120 mg PO QAM #30 caps 10/14/24 levothyroxine 75 mcg tablet 75 mcg PO DAILY hypothyroid 10/25/24 acetaminophen 325 mg tablet 650 mg (2 x 325 mg) PO Q6H PRN PRN Pain 1-5/10 or Fever #0 tabs 11/30/24 meclizine 25 mg tablet (Travel-Ease (meclizine)) 25 mg PO 4X/DAY PRN PRN DIZZINESS/VERTIGO #0 tabs 11/30/24 midodrine 5 mg tablet 10 mg (2 x 5 mg) PO TIDCM #0 tabs 11/30/24
--- NOTE | 2025-01-16 16:12 | CASEMGMT ---
Discharge Planning Discharge orders, signed med list, and transport time sent via [facility] to [facility]. Physicians will transport pt by wheelchair at 4:30p. Nursing, SW, pt, and her daughter (Minnie) updated. Sofie Panda DC Planning Asst.
--- NOTE | 2025-01-16 16:36 | NURSING ---
report called to [facility]
== END 2025-01-16 16:57 | disposition skilled nursing facility (03) | DRG 690 ==
LOC: ED 01-10 02:11 → PCU 01-10 02:39
PROVIDERS: Anesthesiology; Internal Medicine; Admitting Provider Family Medicine; Emergency Provider Surgery; PCP Family Medicine; Visit Provider Internal Medicine
DX: N30.81 Other cystitis with hematuria (principal); I48.20 Chronic atrial fibrillation, unspecified; B96.20 Unspecified Escherichia coli [E. coli] as the cause of diseases classified elsewhere; Z66 Do not resuscitate; E66.01 Morbid (severe) obesity due to excess calories; I10 Essential (primary) hypertension; E03.9 Hypothyroidism, unspecified; I25.10 Atherosclerotic heart disease of native coronary artery without angina pectoris; K21.9 Gastro-esophageal reflux disease without esophagitis; I25.2 Old myocardial infarction; E78.5 Hyperlipidemia, unspecified; B96.4 Proteus (mirabilis) (morganii) as the cause of diseases classified elsewhere; Z79.899 Other long term (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; Z79.01 Long term (current) use of anticoagulants; Z68.39 Body mass index [BMI] 39.0-39.9, adult
CPT/HCPCS: 36415; 74177; 76000; 80048; 80076; 81001; 83605; 85025; 85610; 85730; 87077; 87086; 87088; 87186; 87493; 87506; 97110; 97163; 97167; 97530; 97535; 99285; P9612; Q9967; A4216; J0295

== ENCOUNTER → 2025-02-13 05:00 | Outpatient (REF) | payer MEDICARE, SELFPAY ==
--- OUTSIDE RECORDS SUMMARY | 2025-02-13 03:47 | XMS RPT_ITS | CCD ---
Author Organization [facility] CliniSynv Care Team Providers Care Community Associate Name Role Phone Kimber KELSEY, Vivien Quintana Unavailable Roof RESEARCH SUPPORT SPECIALIST, Kale Kendall Unavailable DeFinis, Harumi Y Unavailable Unavailable DeFinis, Harumi Y Unavailable Unavailable DeFinis, Harumi Y Unavailable Unavailable DeFinis, Harumi Y Unavailable Unavailable DeFinis, Harumi Y Unavailable Unavailable DeFinis, Harumi Y Unavailable Unavailable MD Susan, Elie Barnes Unavailable DeFinis, Harumi Y Unavailable Unavailable DeFinis, Harumi Y Unavailable Unavailable DeFinis, Harumi Y Unavailable Unavailable Roof RESEARCH SUPPORT SPECIALIST, Kale H Unavailable Dr. Lilly Fletcher Primary Care Provider Dr. Lilly Fletcher Referring Provider [phone] Sanjay TORRES, RESEARCH SUPPORT SPECIALIST-C Ginger Attending Provider Sanjay TORRES, RESEARCH SUPPORT SPECIALIST-C Ginger Referring Provider Sanjay TORRES, RESEARCH SUPPORT SPECIALIST-C Ginger Other Provider Dr. Elie Davis Attending Provider Dr. Lilly Fletcher Primary Care Provider Dr. Lilly Fletcher Referring Provider Sanjay TORRES, MELISSA-C Ginger Attending Provider Dr. Elie Davis Attending Provider Dr. Lilly Fletcher Primary Care Provider Dr. Lilly Fletcher Referring Provider [phone] Sanjay TORRES, MELISSA-C Ginger Attending Provider Dr. Elie Davis Attending Provider Dr. Lilly Fletcher Primary Care Provider Dr. Lilly Fletcher Referring Provider MONICA Grace NP Attending Provider PEDRITO Hay Attending Provider Justine OHARA, Dr. Lilly Barnes Primary Care Provider Reginaldo OHARA, Dr. Thompson Referring Provider Reginaldo OHARA, Dr. Thompson Emergency Provider Reginaldo OHARA, Dr. Thompson Attending Provider Dr. Jaylen Jack DO Emergency Provider Dr. Jaylen Jack DO Attending Provider Dr. Lilly Fletcher MD Referring Provider Coty RESEARCH SUPPORT SPECIALIST-C, Kale Kendall Attending Provider Dr. Donovan Pierson DO Emergency Provider Coty RESEARCH SUPPORT SPECIALIST-C, Kale Kendall Referring Provider Dr. Donovan Pierson DO Attending Provider Care Physician, No Primary Primary Care Provider Unavailable Care Physician, No Primary Referring Provider Un available Sanjay TORRES-Ginger Hernandez Attending Provider Dr. Lilly Fletcher MD Primary Care Provider Donna OHARA, Dr. Schmidt Primary Care Provider Sidney OHARA, Dr. Cobian Admit Provider Dr. Aranza Little MD Attending Provider Dr. Aranza Little MD Other Provider Sandra OHARA, Dr. Steh Banerjee Attending Provider Dr. Seth Flores MD Other Provider Dr. Franko Franco MD Attending Provider Justine OHARA, Dr. Lilly Barnes Primary Care Physician Dr. Jaylen Jack DO Attending Physician Dr. Jaylen Jack DO Emergency Department Physi valerie Justine OHARA, Dr. Lilly Barnes Referring Provider Coty TORRES-Kale Hernandez Attending Physician Coty TORRES-David, Kale Kendall Referring Provider Susan OHARA, Dr. Delgadillo Attending Physician Dangelo ZHOU, Dr. Man Attending Physician Dr. Donovan Pierson DO Emergency Department Physi valerie Care Physician, No Primary Primary Care Physicia n Unavailable Care Physician, No Primary Referring Provider Un available Ginger Carter Attending Physician Donna OHARA, Dr. Schmidt Primary [...] Jaylen Jack DO Emergency Department Physi valerie Mateusz Bennett Attending Unavailable Brayan Thompson Primary Care Unavailable Reynaldo Oliva Consulting Unavailable Paul Lauren Attending Unavailable Reynaldo Oliva Admitting Unavailable Paul Lauren Consulting Unavailable Jaylen Jack Attending Unavailable Jolliff, Lilly S Primary Care Unavailable Jolliff, Lilly S Primary Care Unavailable Hair, Jay Attending Unavailable Hair, Jay Referring Unavailable Roof RESEARCH SUPPORT SPECIALIST, Kale H Attending Unavailable Roof RESEARCH SUPPORT SPECIALIST, Kale H Referring Unavailable Jolliff, Lilly S Primary Care Unavailable Care Physician, No Primary Primary Care Unava ilable Roof RESEARCH SUPPORT SPECIALIST, Kale H Referring Unavailable Roof RESEARCH SUPPORT SPECIALIST, Kale H Attending Unavailable Care Physician, No Primary Primary Care Unava ilable Care Physician, No Primary Referring Unava ilable Grace RESEARCH SUPPORT SPECIALIST, Ginger Attending Unavailable Roof RESEARCH SUPPORT SPECIALIST, Kale H Attending Unavailable Jolliff, Lilly S Referring Unavailable Jolliff, Lilly S Primary Care Unavailable Roof RESEARCH SUPPORT SPECIALIST, Kale H Attending Unavailable Jolliff, Lilly S Referring Unavailable Jolliff, Lilly S Primary Care Unavailable [facility] Primary Care Unavailable Seth Flores Attending Unavailable Aranza Little Admitting Unavailable Aranza Little Consulting Unavailable Lino Gruber Consulting Unavailable Paul Lauren Attending Unavailable Yasmani, Lino Admitting Unavailable Yasmani, Lino Primary Care Unavailable Santosh Stephens Consulting Unavailable [facility] Primary Care Unavailable Reynaldo Oliva Consulting Unavailable Paul Lauren Attending Unavailable Reynaldo Oliva Admitting Unavailable [facility] Primary Care Unavailable Roof RESEARCH SUPPORT SPECIALIST, Kale H Referring Unavailable Roof RESEARCH SUPPORT SPECIALIST, Kale Kendall Attending Unavailable Roof RESEARCH SUPPORT SPECIALIST, Kale H Referring Unavailable Roof RESEARCH SUPPORT SPECIALIST, Kale Kendall Attending Unavailable Jolliff, Lilly S Primary Care Unavailable [facility] Primary Care Unavailable Mateusz Bennett Attending Unavailable [facility] Care Unavailable Seth Flores Attending Unavailable Aranza Little Consulting Unavailable Aranza Little Admitting Unavailable Seth Flores Consulting Unavailable Franko Franco Attending Unavailable Care Physician, No Primary Primary Care Unava ilable Donovan Pierson Attending Unavailable Jolliff, Lilly S Primary Care Unavailable Donovan Pierson Attending Unavailable [facility] Primary Care Unavailable Mateusz Bennett Attending Unavailable [facility] Primary Care Unavailable Mateusz Bennett Attending Unavailable Aranza Little Attending Unavailable Elie Davis Attending Unavailable Roof RESEARCH SUPPORT SPECIALIST, Kale H Referring Unavailable Jolliff, Lilly S Primary Care Unavailable Paul Lauren Consulting Unavailable Lino Gruber Attending Unavailable Yasmani, Dailey Primary Care Unavailable Reynaldo Oliva Attending Unavailable Allergies Allergy Classification Reported Allergen(s) Allergy Type Date of Onset Reaction(s) Facility (16 sources) hydroCHLOROthiazide Drug Allergy 12-18-19 Drug-induced constipation with proper administration [facility] Comment on above: and urinary incontin ence (1 source) hydroCHLOROthiazide Drug Allergy 01-10-20 [facility] Repository Medications Current Medications Medication Drug Class(es) [...] tablet by mouth daily Enteric Coated ASPIRIN [id number] Polly Mustafa Start: 09-16-2010 take 1 tablet by diomedes th once daily ASPIRIN 81 MG TABS One tablet by mouth daily Enteric Coated ASPIRIN [id number] Polly Mustafa Start: 09-16-2010 take 1 tablet by diomedes th once daily ASPIRIN EC 81 MG TBEC One tablet by mouth daily ASPIRIN [id number] Kobivinayak Mary Mcdonaldkatie carvedilol 25 mg oral tablet (20 sources) [...] One tablet by mouth twice daily CARVEDILOL [id number] Kale Kendall Coty RESEARCH SUPPORT SPECIALIST Start: 09-24-2016 take 1 tablet by diomedes th twice daily COREG 6.25 MG TABS One tablet by mouth twice daily CARVEDILOL [id number] Kale Kendall Coty RESEARCH SUPPORT SPECIALIST 24 hr dilTIAZem hydrochlorid e 120 mg [...] 0.05 % CREA as directed CLOBETASOL PROPIONATE [id number] Nella Valerio Start: 11-23-2015 End: 09-08-2016 TEMOVATE 0.05 % CREA as dire cted CLOBETASOL PROPIONATE [id number] Nella Valerio Start: 11-23-2015 TEMOVATE 0.05 % CREA as directed CLOBETASOL PROPIONATE [id number] Mary Prieto RN Start: 10-26-2015 End: 09-01-2017 [...] TABS One tablet by mouth daily HYDROCHLOROTHIAZIDE [id number] Vivien Haynes PA-C ipratropium (20 sources) Anticholinergic [...] End: 09-01-2017 Start: 10-26-2015 End: 09-01-2017 Ipratropium Erin 1 SPRAY spray,non-aerosol Discontinued 2 NMA NASAL THREE TIMES A DAY 2 0 October 26, 2015 11:11am September 01, 2017 11:15am Start: 10-26-2015 End: 09-01-2017 Ipratropium Erin Disconti nued 2 SPRAY NASAL THREE TIMES A DAY 2 October 26, 2015 10:11am September 01, 2017 10:15am isosorbide (20 sources) Start: 03-25-2011 End: 08-13-2011 take 1 tablet by mouth once daily IMDUR 30 MG [id number] One tablet by mouth daily ISOSORBIDE MONONITRATE [id number] Sofie Cornejo RN Start: 03-25-2011 take 1 tablet by diomedes th once daily IMDUR 30 MG [id number] One tablet by mouth daily ISOSORBIDE MONONITRATE [id number] Yolanda Larose RN lisinopril 20 mg oral [...] TABS One tablet by mouth daily LISINOPRIL [id number] Kale Ansari NP meloxicam 15 mg oral [...] TABS One tablet by mouth daily NIACIN [id number] Susanne Jordan RN Start: 09-16-2010 End: 03-04-2012 take 1 tablet by mouth at bedtime NIASPAN 500 MG CR-TABS 1 tablet by mouth at bedtime with low fat snack NIACIN (ANTIHYPERLIPIDEMIC) [id number] Susanne Jordan RN nitroglycerin 0.4 mg subling [...] 5 min up to 3 X NITROGLYCERIN [id number] Elie Davis MD Start: 09-16-2010 NITROGLYCERIN 0.4 MG/HR PT24 1 tablet under tongue every 5 min up to 3 X NITROGLYCERIN [id number] Polly Mustafa omeprazole 20 mg delayed rel ease oral capsule (20 sources) Proton Pump Inhibitor Start: 10-25-2015 End: 08-01-2024 Start: 03-04-2011 take 1 capsule by [facility] twice daily PRILOSEC 20 MG CPDR One capsule by mouth twice daily OMEPRAZOLE [id number] Elie Davis MD Start: 03-04-2011 take 1 capsule by mo uth twice daily PRILOSEC 20 MG CPDR One capsule by mouth twice daily OMEPRAZOLE [id number] Elie Davis MD Start: 09-16-2010 take 2 tablets by mo uth twice daily PRILOSEC 20 MG CPDR Two tablets by mouth twice daily OMEPRAZOLE [id number] Polly Mustafa Start: 09-16-2010 take 2 tablets by mo uth twice daily PRILOSEC 20 MG CPDR Two tablets by mouth twice daily OMEPRAZOLE [id number] Polly Mustafa sertraline 25 mg oral tablet [...] disease; Translations: [Gastro-esophageal reflux disease without esophagitis] Onset: 5 10-31-2021 Chronic Essential hypertension (20 sources) Essential [...] sources) Long-term current use of anticoagulant; Translations: [[employer] customer service (current) use of anticoagulants] 11-27-2024 Episodic Other aftercare (1 source) USP (current) use of anticoagulants; Translations: [[employer] customer service (current) use of anticoagulants] Onset: 5 Episodic Other connective tissue disease (4 sources) Recurrent falls ; Translations: [Repeated falls] 11-26-2024 Episodic Other connective tissue disease (1 source) Repeated falls; Translations: [Repeated falls] Onset: Episodic Other injuries and conditions due to [...] index [BMI] 40.0-44.9, adult] Onset: 5 Chronic Other nutritional; endocrine; and metabolic disorders (1 source) Adult failure to thrive; Translations: [Adult failure to thrive] Onset: 5 Episodic Unclassified (4 sources) Long-term drug therapy; Translations: [Other termite helper (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] Onset: 1 09-16-2010 Urinary tract infections (15 sources) Cystitis; Translations: [Cystitis, unspecified without hematuria] Onset: 5 03-26-2023 Episodic Past or Other Problems Problem Classification Problem Date Documented Da te Episodic/Chronic Other aftercare (10 sources) Other termite helper (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; Translations: [Other termite helper (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] Onset: 09-16-2010 09-16-2010 Episodic [...] Test Name Value Interpretation Reference Range Facility Urine Cultureon 01-12-2025 URC Normal [facility] Comment on above: Performed By: #### M 100.2200 ####[facility] [address] [place], [address] Basic Metabolic Profile (BMP )on 01-11-2025 BUN/CRE 20.1 RATIO High 10- [facility] Comment on above: Performed By: #### L 100.0100, L500.2500 ####[facility] [address] [place], [address] Calcium [Mass/Vol] 9.9 mg/dL Normal 7.6-11.0 [facility] Comment on above: Performed By: #### L 100.0100, L500.2500 ####[facility] [address] [place], [address] Chloride [Moles/Vol] 101 mmol/L Normal 98-108 [facility] Comment on above: Performed By: #### L 100.0100, L500.2500 ####[facility] [address] [place], [address] CO2 [Moles/Vol] 26.1 mmol/L Normal 21.0-32.0 [facility] Comment on above: Performed By: #### L 100.0100, L500.2500 ####[facility] [address] [place], [address] Creatinine [Mass/Vol] 0.72 mg/dL Normal 0.70-1.20 [facility] Comment on above: Performed By: #### L 100.0100, L500.2500 ####[facility] [address] [place], [address] ECRCL 55.98 ml/min Normal 50-250 [facility] Comment on above: Performed By: #### L 100.0100, L500.2500 ####[facility] [address] [place], [address] GAP 9 Normal 5-15 [facility] Comment on above: Performed By: #### L 100.0100, L500.2500 ####[facility] [address] [place], [address] GFR/1.73 sq M.predicted among non-blacks MDRD (S/P/Bld) [Vol rate/Area] 85 mL/min/{1.73_m2} Normal >60 [facility] Comment on above: Result Comment: mL/m in/1.73m2 CKD-EPI Creatinine Equation (2020) Performed By: #### L 100.0100, L500.2500 ####[facility] [address] [place], [address] Glucose [Mass/Vol] 115 mg/dL High 70-99 [facility] Comment on above: Performed By: #### L 100.0100, L500.2500 ####[facility] [address] [place], [address] Potassium [Moles/Vol] 4.3 mmol/L Normal 3.3-5.1 [facility] Comment on above: Performed By: #### L 100.0100, L500.2500 ####[facility] [address] [place], [address] Sodium [Moles/Vol] 136 mmol/L Normal 133-145 [facility] Comment on above: Performed By: #### L 100.0100, L500.2500 ####[facility] [address] [place], [address] Urea nitrogen [Mass/Vol] 14 mg/dL Normal 4-19 [facility] Comment on above: Performed By: #### L 100.0100, L500.2500 ####[facility] [address] [place], [address] CBC W/Diff, Automatedon 11-03 03-2024 Absolute Lymph 0.81 X10 3/uL Low 0.83-4.51 [facility] Comment on above: Performed By: #### L 100.0100, L500.2500 ####[facility] [address] [place], [address] Absolute Neut 3.5 X10 3/uL Normal 2.0-7.7 [facility] Comment on above: Performed By: #### L 100.0100, L500.2500 ####[facility] [address] [place], [address] Basophils/100 WBC (Bld) 0.6 % Normal 0-1 [facility] Comment on above: Performed By: #### L 100.0100, L500.2500 ####[facility] [address] [place], [address] Eosinophils/100 WBC (Bld) 2.2 % Normal 0-5 [facility] Comment on above: Performed By: #### L 100.0100, L500.2500 ####[facility] [address] [place], [address] Erythrocyte distribution width (RBC) [Ratio] 14.6 % Normal 11.6-14.6 [facility] Comment on above: Performed By: #### L 100.0100, L500.2500 ####[facility] [address] [place], [address] Hematocrit (Bld) [Volume fraction] 33.2 % Low 37-47 [facility] Comment on above: Performed By: #### L 100.0100, L500.2500 ####[facility] [address] [place], [address] Hemoglobin (Bld) [Mass/Vol] 10.6 g/dL Low 12.0-15.0 [facility] Comment on above: Performed By: #### L 100.0100, L500.2500 ####[facility] [address] [place], [address] IG% 0.600 Normal 0.0-0.9 [facility] Comment on above: Result Comment: IG% - Immature Granulocytes (promyelocytes, myelocytes andmetamyelocytes) > 1% indicates that a LEFT SHIFT is Present. Performed By: #### L 100.0100, L500.2500 ####[facility] [address] [place], [address] Lymphocytes/100 WBC (Bld) 15.9 % Low 19-41 [facility] Comment on above: Performed By: #### L 100.0100, L500.2500 ####[facility] [address] [place], [address] MCH (RBC) [Entitic mass] 29.0 pg Normal 27.0-32.0 [facility] Comment on above: Performed By: #### L 100.0100, L500.2500 ####[facility] [address] [place], [address] MCHC (RBC) [Mass/Vol] 31.9 g/dL Low 32-36 [facility] Comment on above: Performed By: #### L 100.0100, L500.2500 ####[facility] [address] [place], [address] MCV (RBC) [Entitic vol] 90.7 fL Normal 81-99 [facility] Comment on above: Performed By: #### L 100.0100, L500.2500 ####[facility] [address] [place], [address] Monocytes/100 WBC (Bld) 12.2 % High 0-10 [facility] Comment on above: Performed By: #### L 100.0100, L500.2500 ####[facility] [address] [place], [address] Neutrophils/100 WBC (Bld) 68.5 % Normal 47-70 [facility] Comment on above: Performed By: #### L 100.0100, L500.2500 ####[facility] [address] [place], [address] Nucleated RBC (Bld) [#/Vol] 0 10*3/uL Normal 0-5 [facility] Comment on above: Performed By: #### L 100.0100, L500.2500 ####[facility] [address] [place], [address] Platelet mean volume (Bld) [Entitic vol] 9.7 fL Normal 6.2-12.0 [facility] Comment on above: Performed By: #### L 100.0100, L500.2500 ####[facility] [address] [place], [address] Platelets (Bld) [#/Vol] 272 10*3/uL Normal 150-450 [facility] Comment on above: Performed By: #### L 100.0100, L500.2500 ####[facility] [address] [place], [address] RBC (Bld) [#/Vol] 3.66 10*6/uL Low 4.2-5.4 [facility] Comment on above: Performed By: #### L 100.0100, L500.2500 ####[facility] [address] [place], [address] RDW SD 48.9 fl High 35.1-43.9 [facility] Comment on above: Performed By: #### L 100.0100, L500.2500 ####[facility] [address] [place], [address] WBC (Bld) [#/Vol] 5.1 10*3/uL Normal 4.4-11.0 [facility] Comment on above: Performed By: #### L 100.0100, L500.2500 ####[facility] [address] [place], [address] Abdomen/Pelvis W IV Cont ONL Yon 01-10-2025 Abdomen/Pelvis W IV Cont ONLY Normal [facility] Basic Metabolic Profile (BMP )on 01-10-2025 BUN/CRE 19.7 RATIO Normal 10-20 [facility] Comment on above: Performed By: #### L 500.2500, L100.0100 ####[facility] [address] [place], [address] Calcium [Mass/Vol] 9.5 mg/dL Normal 7.6-11.0 [facility] Comment on above: Performed By: #### L 500.2500, L100.0100 ####[facility] [address] [place], [address] Chloride [Moles/Vol] 102 mmol/L Normal 98-108 [facility] Comment on above: Performed By: #### L 500.2500, L100.0100 ####[facility] [address] [place], [address] CO2 [Moles/Vol] 19.5 mmol/L Low 21.0-32.0 [facility] Comment on above: Performed By: #### L 500.2500, L100.0100 ####[facility] [address] [place], [address] Creatinine [Mass/Vol] 0.57 mg/dL Low 0.70-1.20 [facility] Comment on above: Performed By: #### L 500.2500, L100.0100 ####[facility] [address] [place], [address] ECRCL 55.98 ml/min Normal 50-250 [facility] Comment on above: Performed By: #### L 500.2500, L100.0100 ####[facility] [address] [place], [address] GAP 14 Normal 5-15 [facility] Comment on above: Performed By: #### L 500.2500, L100.0100 ####[facility] [address] [place], [address] GFR/1.73 sq M.predicted among non-blacks MDRD (S/P/Bld) [Vol rate/Area] 92 mL/min/{1.73_m2} Normal >60 [facility] Comment on above: Result Comment: mL/m in/1.73m2 CKD-EPI Creatinine Equation (2020) Performed By: #### L 500.2500, L100.0100 ####[facility] [address] [place], [address] Glucose [Mass/Vol] 89 mg/dL Normal 70-99 [facility] Comment on above: Performed By: #### L 500.2500, L100.0100 ####[facility] [address] [place], [address] Potassium [Moles/Vol] 4.1 mmol/L Normal 3.3-5.1 [facility] Comment on above: Result Comment: Hemo lysis present, Results??could be affected.?? Performed By: #### L 500.2500, L100.0100 ####[facility] [address] [place], [address] Sodium [Moles/Vol] 136 mmol/L Normal 133-145 [facility] Comment on above: Performed By: #### L 500.2500, L100.0100 ####[facility] [address] [place], [address] Urea nitrogen [Mass/Vol] 11 mg/dL Normal 4-19 [facility] Comment on above: Performed By: #### L 500.2500, L100.0100 ####[facility] [address] [place], [address] BUN/CRE 22.6 RATIO High 10-20 [facility] Comment on above: Performed By: #### L 503.6005, L100.0100, L500.2500 ####[facility] [address] [place], [address] Calcium [Mass/Vol] 10.4 mg/dL Normal 7.6-11.0 [facility] Comment on above: Performed By: #### L 503.6005, L100.0100, L500.2500 ####[facility] [address] [place], [address] Chloride [Moles/Vol] 102 mmol/L Normal 98-108 [facility] Comment on above: Performed By: #### L 503.6005, L100.0100, L500.2500 ####[facility] [address] [place], [address] CO2 [Moles/Vol] 27.9 mmol/L Normal 21.0-32.0 [facility] Comment on above: Performed By: #### L 503.6005, L100.0100, L500.2500 ####[facility] [address] [place], [address] Creatinine [Mass/Vol] 0.72 mg/dL Normal 0.70-1.20 [facility] Comment on above: Performed By: #### L 503.6005, L100.0100, L500.2500 ####[facility] [address] [place], [address] GAP 9 Normal 5-15 [facility] Comment on above: Performed By: #### L 503.6005, L100.0100, L500.2500 ####[facility] [address] [place], [address] GFR/1.73 sq M.predicted among non-blacks MDRD (S/P/Bld) [Vol rate/Area] 85 mL/min/{1.73_m2} Normal >60 [facility] Comment on above: Result Comment: mL/m in/1.73m2 CKD-EPI Creatinine Equation (2020) Performed By: #### L 503.6005, L100.0100, L500.2500 ####[facility] [address] [place], [address] Glucose [Mass/Vol] 107 mg/dL High 70-99 [facility] Comment on above: Performed By: #### L 503.6005, L100.0100, L500.2500 ####[facility] [address] [place], [address] Potassium [Moles/Vol] 4.1 mmol/L Normal 3.3-5.1 [facility] Comment on above: Performed By: #### L 503.6005, L100.0100, L500.2500 ####[facility] [address] [place], [address] Sodium [Moles/Vol] 139 mmol/L Normal 133-145 [facility] Comment on above: Performed By: #### L 503.6005, L100.0100, L500.2500 ####[facility] [address] [place], [address] Urea nitrogen [Mass/Vol] 16 mg/dL Normal 4-19 [facility] Comment on above: Performed By: #### L 503.6005, L100.0100, L500.2500 ####[facility] [address] [place], [address] CBC W/Diff, Automatedon 12-31 Absolute Lymph 0.72 X10 3/uL Low 0.83-4.51 [facility] Comment on above: Performed By: #### L 500.2500, L100.0100 ####[facility] [address] [place], [address] Absolute Neut 2.6 X10 3/uL Normal 2.0-7.7 [facility] Comment on above: Performed By: #### L 500.2500, L100.0100 ####[facility] [address] [place], [address] Basophils/100 WBC (Bld) 0.5 % Normal 0-1 [facility] Comment on above: Performed By: #### L 500.2500, L100.0100 ####[facility] [address] [place], [address] Eosinophils/100 WBC (Bld) 1.3 % Normal 0-5 [facility] Comment on above: Performed By: #### L 500.2500, L100.0100 ####[facility] [address] [place], [address] Erythrocyte distribution width (RBC) [Ratio] 14.7 % High 11.6-14.6 [facility] Comment on above: Performed By: #### L 500.2500, L100.0100 ####[facility] [address] [place], [address] Hematocrit (Bld) [Volume fraction] 35.1 % Low 37-47 [facility] Comment on above: Performed By: #### L 500.2500, L100.0100 ####[facility] [address] [place], [address] Hemoglobin (Bld) [Mass/Vol] 11.1 g/dL Low 12.0-15.0 [facility] Comment on above: Performed By: #### L 500.2500, L100.0100 ####[facility] [address] [place], [address] IG% 0.500 Normal 0.0-0.9 [facility] Comment on above: Result Comment: IG% - Immature Granulocytes (promyelocytes, myelocytes andmetamyelocytes) > 1% indicates that a LEFT SHIFT is Present. Performed By: #### L 500.2500, L100.0100 ####[facility] [address] [place], [address] Lymphocytes/100 WBC (Bld) 18.2 % Low 19-41 [facility] Comment on above: Performed By: #### L 500.2500, L100.0100 ####[facility] [address] [place], [address] MCH (RBC) [Entitic mass] 29.4 pg Normal 27.0-32.0 [facility] Comment on above: Performed By: #### L 500.2500, L100.0100 ####[facility] [address] [place], [address] MCHC (RBC) [Mass/Vol] 31.6 g/dL Low 32-36 [facility] Comment on above: Performed By: #### L 500.2500, L100.0100 ####[facility] [address] [place], [address] MCV (RBC) [Entitic vol] 92.9 fL Normal 81-99 [facility] Comment on above: Performed By: #### L 500.2500, L100.0100 ####[facility] [address] [place], [address] Monocytes/100 WBC (Bld) 15.2 % High 0-10 [facility] Comment on above: Performed By: #### L 500.2500, L100.0100 ####[facility] [address] [place], [address] Neutrophils/100 WBC (Bld) 64.3 % Normal 47-70 [facility] Comment on above: Performed By: #### L 500.2500, L100.0100 ####[facility] [address] [place], [address] Nucleated RBC (Bld) [#/Vol] 0 10*3/uL Normal 0-5 [facility] Comment on above: Performed By: #### L 500.2500, L100.0100 ####[facility] [address] [place], [address] Platelet mean volume (Bld) [Entitic vol] 9.8 fL Normal 6.2-12.0 [facility] Comment on above: Performed By: #### L 500.2500, L100.0100 ####[facility] [address] [place], [address] Platelets (Bld) [#/Vol] 251 10*3/uL Normal 150-450 [facility] Comment on above: Performed By: #### L 500.2500, L100.0100 ####[facility] [address] [place], [address] RBC (Bld) [#/Vol] 3.78 10*6/uL Low 4.2-5.4 [facility] Comment on above: Performed By: #### L 500.2500, L100.0100 ####[facility] [address] [place], [address] RDW SD 50.4 fl High 35.1-43.9 [facility] Comment on above: Performed By: #### L 500.2500, L100.0100 ####[facility] [address] [place], [address] WBC (Bld) [#/Vol] 4.0 10*3/uL Low 4.4-11.0 [facility] Comment on above: Performed By: #### L 500.2500, L100.0100 ####[facility] [address] [place], [address] Absolute Lymph 0.94 X10 3/uL Normal 0.83-4.51 [facility] Comment on above: Performed By: #### L 503.6005, L100.0100, L500.2500 ####[facility] [address] [place], [address] Absolute Neut 3.4 X10 3/uL Normal 2.0-7.7 [facility] Comment on above: Performed By: #### L 503.6005, L100.0100, L500.2500 ####[facility] [address] [place], [address] Basophils/100 WBC (Bld) 0.4 % Normal 0-[address] [facility] Comment on above: Performed By: #### L 503.6005, L100.0100, L500.2500 ####[facility] [address] [place], [address] Eosinophils/100 WBC (Bld) 1.6 % Normal 0-5 [facility] Comment on above: Performed By: #### L 503.6005, L100.0100, L500.2500 ####[facility] [address] [place], [address] Erythrocyte distribution width (RBC) [Ratio] 14.6 % Normal 11.6-14.6 [facility] Comment on above: Performed By: #### L 503.6005, L100.0100, L500.2500 ####[facility] [address] [place], [address] Hematocrit (Bld) [Volume fraction] 36.3 % Low 37-47 [facility] Comment on above: Performed By: #### L 503.6005, L100.0100, L500.2500 ####[facility] [address] [place], [address] Hemoglobin (Bld) [Mass/Vol] 11.4 g/dL Low 12.0-15.0 [facility] Comment on above: Performed By: #### L 503.6005, L100.0100, L500.2500 ####[facility] [address] [place], [address] IG% 0.400 Normal 0.0-0.9 [facility] Comment on above: Result Comment: IG% - Immature Granulocytes (promyelocytes, myelocytes andmetamyelocytes) > 1% indicates that a LEFT SHIFT is Present. Performed By: #### L 503.6005, L100.0100, L500.2500 ####[facility] [address] [place], [address] Lymphocytes/100 WBC (Bld) 18.6 % Low 19-41 [facility] Comment on above: Performed By: #### L 503.6005, L100.0100, L500.2500 ####[facility] [address] [place], [address] MCH (RBC) [Entitic mass] 28.7 pg Normal 27.0-32.0 [facility] Comment on above: Performed By: #### L 503.6005, L100.0100, L500.2500 ####[facility] [address] [place], [address] MCHC (RBC) [Mass/Vol] 31.4 g/dL Low 32-36 [facility] Comment on above: Performed By: #### L 503.6005, L100.0100, L500.2500 ####[facility] [address] [place], [address] MCV (RBC) [Entitic vol] 91.4 fL Normal 81-99 [facility] Comment on above: Performed By: #### L 503.6005, L100.0100, L500.2500 ####[facility] [address] [place], [address] Monocytes/100 WBC (Bld) 12.7 % High 0-10 [facility] Comment on above: Performed By: #### L 503.6005, L100.0100, L500.2500 ####[facility] [address] [place], [address] Neutrophils/100 WBC (Bld) 66.3 % Normal 47-70 [facility] Comment on above: Performed By: #### L 503.6005, L100.0100, L500.2500 ####[facility] [address] [place], [address] Nucleated RBC (Bld) [#/Vol] 0 10*3/uL Normal 0-5 [facility] Comment on above: Performed By: #### L 503.6005, L100.0100, L500.2500 ####[facility] [address] [place], [address] Platelet mean volume (Bld) [Entitic vol] 9.8 fL Normal 6.2-12.0 [facility] Comment on above: Performed By: #### L 503.6005, L100.0100, L500.2500 ####[facility] [address] [place], [address] Platelets (Bld) [#/Vol] 290 10*3/uL Normal 150-450 [facility] Comment on above: Performed By: #### L 503.6005, L100.0100, L500.2500 ####[facility] [address] [place], [address] RBC (Bld) [#/Vol] 3.97 10*6/uL Low 4.2-5.4 [facility] Comment on above: Performed By: #### L 503.6005, L100.0100, L500.2500 ####[facility] [address] [place], [address] RDW SD 49.1 fl High 35.1-43.9 [facility] Comment on above: Performed By: #### L 503.6005, L100.0100, L500.2500 ####[facility] [address] [place], [address] WBC (Bld) [#/Vol] 5.1 10*3/uL Normal 4.4-11.0 [facility] Comment on above: Performed By: #### L 503.6005, L100.0100, L500.2500 ####[facility] [address] [place], [address] Lactic Acidon 01-10-2025 Lactate [Moles/Vol] 1.2 mmol/L Normal 0.0-2.0 [facility] Comment on above: Order Comment: Y Performed By: #### L 503.6005, L100.0100, L500.2500 ####[facility] [address] [place], [address] Urine Cultureon 01-10-2025 U[facility] Escherichia coli [place] Count >100,000 Escherichia coli: REACTION Ampicillin Islt LILLIE <=2 Ampicillin+Sulbac Islt LILLIE <=2 S Cefepime Islt LILLIE <=0.12 S cefTRIAXone Islt LILLIE <=0.25 S Ciprofloxacin Islt LILLIE <=0.06 S B-Lactamase Extended Susc Islt NEG Gentamicin Islt LILLIE <=1 S levoFLOXacin Islt LILLIE <=0.12 S Meropenem Islt LILLIE <=0.25 S Nitrofurantoin Islt LILLIE <=16 S Pip+Tazo Islt LILLIE <=4 S TMP SMX Islt LILLIE <=20 S Normal [facility] Comment on above: Performed By: #### M 100.2200, L400.0001 #### [facility] [address] [place], [address] Emergency Department Summary on 01-09-2025 Emergency Department Summary Normal [facility] Urinalysis, Completeon 01-09 AMORPHOUS 1+ Normal [facility] Comment on above: Order Comment: GRACE TER SPECIMEN Performed By: #### L 400.0001 ####[facility] [address] [place], [address] BACTERIA 4+ /hpf Normal None Seen [facility] Comment on above: Order Comment: GRACE TER SPECIMEN Performed By: #### L 400.0001 ####[facility] [address] [place], [address] RBC 0-5 SEEN Normal 0-5 [facility] Comment on above: Order Comment: GRACE TER SPECIMEN Performed By: #### L 400.0001 ####[facility] [address] [place], [address] WBC 0-5 SEEN Normal 0-5 [facility] Comment on above: Order Comment: GARCE TER SPECIMEN Performed By: #### L 400.0001 ####[facility] [address] [place], [address] EPI,SQUAMOUS 0 SEEN Normal 5-10 [facility] Comment on above: Order Comment: GRACE TER SPECIMEN Performed By: #### L 400.0001 ####[facility] [address] [place], [address] Mucus Ql (Urine sed) 0 SEEN Normal [facility] Comment on above: Order Comment: GRACE TER SPECIMEN Performed By: #### L 400.0001 ####[facility] [address] [place], [address] Urinalysis, Completeon 01-08 BACTERIA 3+ /hpf Normal None Seen [facility] Comment on above: Order Comment: CLEAN CATCH Performed By: #### M 100.2200, L400.0001 #### [facility] [address] [place], [address] RBC 10-25 SEEN Normal 0-5 [facility] Comment on above: Order Comment: CLEAN CATCH Performed By: #### M 100.2200, L400.0001 #### [facility] [address] [place], [address] WBC 0-5 SEEN Normal 0-5 [facility] Comment on above: Order Comment: CLEAN CATCH Performed By: #### M 100.2200, L400.0001 #### [facility] [address] [place], [address] EPI,SQUAMOUS 0 SEEN Normal 5-10 [facility] Comment on above: Order Comment: CLEAN CATCH Performed By: #### M 100.2200, L400.0001 #### [facility] [address] [place], [address] Mucus Ql (Urine sed) 0 SEEN Normal [facility] Comment on above: Order Comment: CLEAN CATCH Performed By: #### M 100.2200, L400.0001 #### [facility] [address] [place], [address] CBC-Complete Blood Cnt No Di ffon 01-03-2025 Erythrocyte distribution width (RBC) [Ratio] 14.6 % Normal 11.6-14.6 [facility] Comment on above: Order Comment: 310.1 Performed By: #### L 500.4050, L100.0500 ####[facility] [address] [place], [address] Hematocrit (Bld) [Volume fraction] 36.6 % Low 37-47 [facility] Comment on above: Order Comment: 310.1 Performed By: #### L 500.4050, L100.0500 ####[facility] [address] [place], [address] Hemoglobin (Bld) [Mass/Vol] 11.8 g/dL Low 12.0-15.0 [facility] Comment on above: Order Comment: 310.1 Performed By: #### L 500.4050, L100.0500 ####[facility] [address] [place], [address] MCH (RBC) [Entitic mass] 29.5 pg Normal 27.0-32.0 [facility] Comment on above: Order Comment: 310.1 Performed By: #### L 500.4050, L100.0500 ####[facility] [address] [place], [address] MCHC (RBC) [Mass/Vol] 32.2 g/dL Normal 32-36 [facility] Comment on above: Order Comment: 310.1 Performed By: #### L 500.4050, L100.0500 ####[facility] [address] [place], [address] MCV (RBC) [Entitic vol] 91.5 fL Normal 81-[address] [facility] Comment on above: Order Comment: 310.1 Performed By: #### L 500.4050, L100.0500 ####[facility] [address] [place], [address] Platelet mean volume (Bld) [Entitic vol] 9.7 fL Normal 6.2-12.0 [facility] Comment on above: Order Comment: 310.1 Performed By: #### L 500.4050, L100.0500 ####[facility] [address] [place], [address] Platelets (Bld) [#/Vol] 274 10*3/uL Normal 150-450 [facility] Comment on above: Order Comment: 310.1 Performed By: #### L 500.4050, L100.0500 ####[facility] [address] [place], [address] RBC (Bld) [#/Vol] 4.00 10*6/uL Low 4.2-5.4 [facility] Comment on above: Order Comment: 310.1 Performed By: #### L 500.4050, L100.0500 ####[facility] [address] [place], [address] RDW SD 48.9 fl High 35.1-43.9 [facility] Comment on above: Order Comment: 310.1 Performed By: #### L 500.4050, L100.0500 ####[facility] [address] [place], [address] WBC (Bld) [#/Vol] 7.0 10*3/uL Normal 4.4-11.0 [facility] Comment on above: Order Comment: 310.1 Performed By: #### L 500.4050, L100.0500 ####[facility] [address] [place], [address] Comprehensive Metabolic Prof [facility] 01-03-2025 Albumin [Mass/Vol] 3.2 g/dL Low 3.4-4.8 [facility] Comment on above: Order Comment: 310.1 Performed By: #### L 500.4050, L100.0500 ####[facility] [address] [place], [address] Albumin/Globulin [Mass ratio] 1.1 {ratio} Normal 0.9-2.4 [facility] Comment on above: Order Comment: 310.1 Performed By: #### L 500.4050, L100.0500 ####[facility] [address] [place], [address] ALK PHOS 112 U/L High 35-104 [facility] Comment on above: Order Comment: 310.1 Performed By: #### L 500.4050, L100.0500 ####[facility] [address] [place], [address] ALT [Catalytic activity/Vol] 26 U/L Normal <=34 [facility] Comment on above: Order Comment: 310.1 Performed By: #### L 500.4050, L100.0500 ####[facility] [address] [place], [address] AST [Catalytic activity/Vol] 20 U/L Normal <=31 [facility] Comment on above: Order Comment: 310.1 Performed By: #### L 500.4050, L100.0500 ####[facility] [address] [place], [address] Bilirubin [Mass/Vol] 0.61 mg/dL Normal 0.00-1.30 [facility] Comment on above: Order Comment: 310.1 Performed By: #### L 500.4050, L100.0500 ####[facility] [address] [place], [address] BUN/CRE 20.3 RATIO High 10-20 [facility] Comment on above: Order Comment: 310.1 Performed By: #### L 500.4050, L100.0500 ####[facility] [address] [place], [address] Calcium [Mass/Vol] 10.5 mg/dL Normal 7.6-11.0 [facility] Comment on above: Order Comment: 310.1 Performed By: #### L 500.4050, L100.0500 ####[facility] [address] [place], [address] Chloride [Moles/Vol] 100 mmol/L Normal 98-108 [facility] Comment on above: Order Comment: 310.1 Performed By: #### L 500.4050, L100.0500 ####[facility] [address] [place], [address] CO2 [Moles/Vol] 30.6 mmol/L Normal 21.0-32.0 [facility] Comment on above: Order Comment: 310.1 Performed By: #### L 500.4050, L100.0500 ####[facility] [address] [place], [address] Creatinine [Mass/Vol] 0.50 mg/dL Low 0.70-1.20 [facility] Comment on above: Order Comment: 310.1 Performed By: #### L 500.4050, L100.0500 ####[facility] [address] [place], [address] GAP 7 Normal 5-15 [facility] Comment on above: Order Comment: 310.1 Performed By: #### L 500.4050, L100.0500 ####[facility] [address] [place], [address] GFR/1.73 sq M.predicted among non-blacks MDRD (S/P/Bld) [Vol rate/Area] 95 mL/min/{1.73_m2} Normal >60 [facility] Comment on above: Order Comment: 310.1 Result Comment: mL/m in/1.73m2 CKD-EPI Creatinine Equation (2020) Performed By: #### L 500.4050, L100.0500 ####[facility] [address] [place], [address] Globulin (S) [Mass/Vol] 2.9 g/dL Normal 2.2-4.[address] [facility] Comment on above: Order Comment: 310.1 Performed By: #### L 500.4050, L100.0500 ####[facility] [address] [place], [address] Glucose [Mass/Vol] 111 mg/dL High 70-99 [facility] Comment on above: Order Comment: 310.1 Performed By: #### L 500.4050, L100.0500 ####[facility] [address] [place], [address] Potassium [Moles/Vol] 4.1 mmol/L Normal 3.3-5.1 [facility] Comment on above: Order Comment: 310.1 Performed By: #### L 500.4050, L100.0500 ####[facility] [address] [place], [address] Sodium [Moles/Vol] 137 mmol/L Normal 133-145 [facility] Comment on above: Order Comment: 310.1 Performed By: #### L 500.4050, L100.0500 ####[facility] [address] [place], [address] T PROT 6.2 g/dL Normal 5.9-8.4 [facility] Comment on above: Order Comment: 310.1 Performed By: #### L 500.4050, L100.0500 ####[facility] [address] [place], [address] Urea nitrogen [Mass/Vol] 10 mg/dL Normal 4-19 [facility] Comment on above: Order Comment: 310.1 Performed By: #### L 500.4050, L100.0500 ####[facility] [address] [place], [address] Urine Cultureon 12-27-2024 URC Normal [facility] Comment on above: Performed By: #### M 100.2200, L400.0001 ####[facility] [address] [place], [address] Urinalysis, Completeon 12-23 RBC 0-5 SEEN Normal 0-5 [facility] Comment on above: Order Comment: GRACE TER SPECIMEN Performed By: #### M 100.2200, L400.0001 ####[facility] [address] [place], [address] TRIPLE PHOS RARE Normal [facility] Comment on above: Order Comment: GRACE TER SPECIMEN Performed By: #### M 100.2200, L400.0001 ####[facility] [address] [place], [address] BACTERIA 3+ /hpf Normal None Seen [facility] Comment on above: Order Comment: GRAEC TER SPECIMEN Performed By: #### M 100.2200, L400.0001 ####[facility] [address] [place], [address] WBC 10-25 SEEN Normal 0-5 [facility] Comment on above: Order Comment: GRACE TER SPECIMEN Performed By: #### M 100.2200, L400.0001 ####[facility] [address] [place], [address] EPI,SQUAMOUS 0 SEEN Normal 5-10 [facility] Comment on above: Order Comment: GRACE TER SPECIMEN Performed By: #### M 100.2200, L400.0001 ####[facility] [address] [place], [address] Mucus Ql (Urine sed) 0 SEEN Normal [facility] Comment on above: Order Comment: GRACE TER SPECIMEN Performed By: #### M 100.2200, L400.0001 ####[facility] [address] [place], [address] Basic Metabolic Profile (BMP )on 12-19-2024 BUN/CRE 21.8 RATIO High - [facility] Comment on above: Order Comment: 310.1 Performed By: #### L 100.0500, L500.2500 ####[facility] [address] [place], [address] Calcium [Mass/Vol] 10.0 mg/dL Normal 7.6-11.0 [facility] Comment on above: Order Comment: 310.1 Performed By: #### L 100.0500, L500.2500 ####[facility] [address] [place], [address] Chloride [Moles/Vol] 101 mmol/L Normal 98-108 [facility] Comment on above: Order Comment: 310.1 Performed By: #### L 100.0500, L500.2500 ####[facility] [address] [place], [address] CO2 [Moles/Vol] 31.0 mmol/L Normal 21.0-32.0 [facility] Comment on above: Order Comment: 310.1 Performed By: #### L 100.0500, L500.2500 ####[facility] [address] [place], [address] Creatinine [Mass/Vol] 0.50 mg/dL Low 0.70-1.20 [facility] Comment on above: Order Comment: 310.1 Performed By: #### L 100.0500, L500.2500 ####[facility] [address] [place], [address] GAP 7 Normal 5-15 [facility] Comment on above: Order Comment: 310.1 Performed By: #### L 100.0500, L500.2500 ####[facility] [address] [place], [address] GFR/1.73 sq M.predicted among non-blacks MDRD (S/P/Bld) [Vol rate/Area] 95 mL/min/{1.73_m2} Normal >60 [facility] Comment on above: Order Comment: 310.1 Result Comment: mL/m in/1.73m2 CKD-EPI Creatinine Equation (2020) Performed By: #### L 100.0500, L500.2500 ####[facility] [address] [place], [address] Glucose [Mass/Vol] 104 mg/dL High 70-99 [facility] Comment on above: Order Comment: 310.1 Performed By: #### L 100.0500, L500.2500 ####[facility] [address] [place], [address] Potassium [Moles/Vol] 3.6 mmol/L Normal 3.3-5.1 [facility] Comment on above: Order Comment: 310.1 Performed By: #### L 100.0500, L500.2500 ####[facility] [address] [place], [address] Sodium [Moles/Vol] 139 mmol/L Normal 133-145 [facility] Comment on above: Order Comment: 310.1 Performed By: #### L 100.0500, L500.2500 ####[facility] [address] [place], [address] Urea nitrogen [Mass/Vol] 11 mg/dL Normal 4-19 [facility] Comment on above: Order Comment: 310.1 Performed By: #### L 100.0500, L500.2500 ####[facility] [address] [place], [address] CBC-Complete Blood Cnt No Di ffon 12-19-2024 Erythrocyte distribution width (RBC) [Ratio] 14.5 % Normal 11.6-14.6 [facility] Comment on above: Order Comment: 310.1 Performed By: #### L 100.0500, L500.2500 ####[facility] [address] [place], [address] Hematocrit (Bld) [Volume fraction] 34.6 % Low 37-47 [facility] Comment on above: Order Comment: 310.1 Performed By: #### L 100.0500, L500.2500 ####[facility] [address] [place], [address] Hemoglobin (Bld) [Mass/Vol] 11.4 g/dL Low 12.0-15.0 [facility] Comment on above: Order Comment: 310.1 Performed By: #### L 100.0500, L500.2500 ####[facility] [address] [place], [address] MCH (RBC) [Entitic mass] 30.1 pg Normal 27.0-32.0 [facility] Comment on above: Order Comment: 310.1 Performed By: #### L 100.0500, L500.2500 ####[facility] [address] [place], [address] MCHC (RBC) [Mass/Vol] 32.9 g/dL Normal 32-36 [facility] Comment on above: Order Comment: 310.1 Performed By: #### L 100.0500, L500.2500 ####[facility] [address] [place], [address] MCV (RBC) [Entitic vol] 91.3 fL Normal 81-[address] [facility] Comment on above: Order Comment: 310.1 Performed By: #### L 100.0500, L500.2500 ####[facility] [address] [place], [address] Platelet mean volume (Bld) [Entitic vol] 9.7 fL Normal 6.2-12.0 [facility] Comment on above: Order Comment: 310.1 Performed By: #### L 100.0500, L500.2500 ####[facility] [address] [place], [address] Platelets (Bld) [#/Vol] 246 10*3/uL Normal 150-450 [facility] Comment on above: Order Comment: 310.1 Performed By: #### L 100.0500, L500.2500 ####[facility] [address] [place], [address] RBC (Bld) [#/Vol] 3.79 10*6/uL Low 4.2-5.4 [facility] Comment on above: Order Comment: 310.1 Performed By: #### L 100.0500, L500.2500 ####[facility] [address] [place], [address] RDW SD 47.9 fl High 35.1-43.9 [facility] Comment on above: Order Comment: 310.1 Performed By: #### L 100.0500, L500.2500 ####[facility] [address] [place], [address] WBC (Bld) [#/Vol] 5.9 10*3/uL Normal 4.4-11.0 [facility] Comment on above: Order Comment: 310.1 Performed By: #### L 100.0500, L500.2500 ####[facility] [address] [place], [address] Absolute lymphocyte countOrd ered By: Paul Lauren on 11-28-2024 Lymphocytes Auto (Unsp spec) [#/Vol] 0.54 10*3/uL Low 0.83-4.51 [facility] Anion gap in Serum or Plasma Ordered By: Paul Lauren on 11-28-2024 Anion gap [Moles/Vol] 13 mmol/L 5-15 [facility] Automated lymphocyte count a s percentage of total leukocytesOrdered By: Paul Lauren on 11-28-2024 Lymphocytes/100 WBC Auto (Unsp spec) 7.3 % Low 19-41 [facility] BUN/creatinine ratioOrdered By: Paul Lauren on 11-28-2024 Urea nitrogen/Creatinine [Mass ratio] 35.0 mg/mg High 10-20 [facility] Basic Metabolic Profile (BMP )on 11-28-2024 BUN/CRE 35.0 RATIO High - [facility] Comment on above: Order Comment: MG1 3 N Performed By: #### L 500.2500, L100.0100 ####[facility] [address] [place], [address] Calcium [Mass/Vol] 9.9 mg/dL Normal 7.6-11.0 [facility] Comment on above: Order Comment: MG1 3 N Performed By: #### L 500.2500, L100.0100 ####[facility] [address] [place], [address] Chloride [Moles/Vol] 102 mmol/L Normal 98-108 [facility] Comment on above: Order Comment: MG1 3 N Performed By: #### L 500.2500, L100.0100 ####[facility] [address] [place], [address] CO2 [Moles/Vol] 21.2 mmol/L Normal 21.0-32.0 [facility] Comment on above: Order Comment: MG1 3 N Performed By: #### L 500.2500, L100.0100 ####[facility] [address] [place], [address] Creatinine [Mass/Vol] 0.59 mg/dL Low 0.70-1.20 [facility] Comment on above: Order Comment: MG1 3 N Performed By: #### L 500.2500, L100.0100 ####[facility] [address] [place], [address] ECRCL 56.86 ml/min Normal 50-250 [facility] Comment on above: Order Comment: MG1 3 N Performed By: #### L 500.2500, L100.0100 ####[facility] [address] [place], [address] GAP 13 Normal 5-15 [facility] Comment on above: Order Comment: MG1 3 N Performed By: #### L 500.2500, L100.0100 ####[facility] [address] [place], [address] GFR/1.73 sq M.predicted among non-blacks MDRD (S/P/Bld) [Vol rate/Area] 91 mL/min/{1.73_m2} Normal >60 [facility] Comment on above: Order Comment: MG1 3 N Result Comment: mL/m in/1.73m2 CKD-EPI Creatinine Equation (2020) Performed By: #### L 500.2500, L100.0100 ####[facility] [address] [place], [address] Glucose [Mass/Vol] 125 mg/dL High 70-99 [facility] Comment on above: Order Comment: MG1 3 N Performed By: #### L 500.2500, L100.0100 ####[facility] [address] [place], [address] Potassium [Moles/Vol] 4.8 mmol/L Normal 3.3-5.1 [facility] Comment on above: Order Comment: MG1 3 N Performed By: #### L 500.2500, L100.0100 ####[facility] [address] [place], [address] Sodium [Moles/Vol] 136 mmol/L Normal 133-145 [facility] Comment on above: Order Comment: MG1 3 N Performed By: #### L 500.2500, L100.0100 ####[facility] [address] [place], [address] Urea nitrogen [Mass/Vol] 21 mg/dL High 4-19 [facility] Comment on above: Order Comment: MG1 3 N Performed By: #### L 500.2500, L100.0100 ####[facility] [address] [place], [address] Basophil percentageOrdered B y: Paulcarlitos Lauren on 11-28-2024 Basophils/100 WBC (Bld) 0.4 % 0-1 [facility] CBC W/Diff, Automatedon 11-01 Absolute Lymph 0.54 X10 3/uL Low 0.83-4.51 [facility] Comment on above: Performed By: #### L 500.2500, L100.0100 ####[facility] [address] [place], [address] Absolute Neut 5.9 X10 3/uL Normal 2.0-7.7 [facility] Comment on above: Performed By: #### L 500.2500, L100.0100 ####[facility] [address] [place], [address] Basophils/100 WBC (Bld) 0.4 % Normal 0-1 [facility] Comment on above: Performed By: #### L 500.2500, L100.0100 ####[facility] [address] [place], [address] Eosinophils/100 WBC (Bld) 1.3 % Normal 0-5 [facility] Comment on above: Performed By: #### L 500.2500, L100.0100 ####[facility] [address] [place], [address] Erythrocyte distribution width (RBC) [Ratio] 13.6 % Normal 11.6-14.6 [facility] Comment on above: Performed By: #### L 500.2500, L100.0100 ####[facility] [address] [place], [address] Hematocrit (Bld) [Volume fraction] 41.3 % Normal 37-47 [facility] Comment on above: Performed By: #### L 500.2500, L100.0100 ####[facility] [address] [place], [address] Hemoglobin (Bld) [Mass/Vol] 12.8 g/dL Normal 12.0-15.0 [facility] Comment on above: Performed By: #### L 500.2500, L100.0100 ####[facility] [address] [place], [address] IG% 0.300 Normal 0.0-0.9 [facility] Comment on above: Result Comment: IG% - Immature Granulocytes (promyelocytes, myelocytes andmetamyelocytes) > 1% indicates that a LEFT SHIFT is Present. Performed By: #### L 500.2500, L100.0100 ####[facility] [address] [place], [address] Lymphocytes/100 WBC (Bld) 7.3 % Low 19-41 [facility] Comment on above: Performed By: #### L 500.2500, L100.0100 ####[facility] [address] [place], [address] MCH (RBC) [Entitic mass] 29.6 pg Normal 27.0-32.0 [facility] Comment on above: Performed By: #### L 500.2500, L100.0100 ####[facility] [address] [place], [address] MCHC (RBC) [Mass/Vol] 31.0 g/dL Low 32-36 [facility] Comment on above: Performed By: #### L 500.2500, L100.0100 ####[facility] [address] [place], [address] MCV (RBC) [Entitic vol] 95.4 fL Normal 81-99 [facility] Comment on above: Performed By: #### L 500.2500, L100.0100 ####[facility] [address] [place], [address] Monocytes/100 WBC (Bld) 11.3 % High 0-10 [facility] Comment on above: Performed By: #### L 500.2500, L100.0100 ####[facility] [address] [place], [address] Neutrophils/100 WBC (Bld) 79.4 % High 47-70 [facility] Comment on above: Performed By: #### L 500.2500, L100.0100 ####[facility] [address] [place], [address] Nucleated RBC (Bld) [#/Vol] 0 10*3/uL Normal 0-5 [facility] Comment on above: Performed By: #### L 500.2500, L100.0100 ####[facility] [address] [place], [address] Platelet mean volume (Bld) [Entitic vol] 9.9 fL Normal 6.2-12.0 [facility] Comment on above: Performed By: #### L 500.2500, L100.0100 ####[facility] [address] [place], [address] Platelets (Bld) [#/Vol] 242 10*3/uL Normal 150-450 [facility] Comment on above: Performed By: #### L 500.2500, L100.0100 ####[facility] [address] [place], [address] RBC (Bld) [#/Vol] 4.33 10*6/uL Normal 4.2-5.4 [facility] Comment on above: Performed By: #### L 500.2500, L100.0100 ####[facility] [address] [place], [address] RDW SD 47.8 fl High 35.1-43.9 [facility] Comment on above: Performed By: #### L 500.2500, L100.0100 ####[facility] [address] [place], [address] WBC (Bld) [#/Vol] 7.4 10*3/uL Normal 4.4-11.0 [facility] Comment on above: Performed By: #### L 500.2500, L100.0100 ####[facility] [address] [place], [address] Carbon dioxide, total [Moles /volume] in Central venous bloodOrdered By: Paul Lauren on 11-28-2024 CO2 [Moles/Vol] 21.2 mmol/L 21.0-32.0 [facility] Chest 1 View (Portable)on Chest 1 View (Portable) Normal [facility] Chloride assayOrdered By: Pino Lauren on 11-28-2024 Chloride [Moles/Vol] 102 mmol/L 98-108 [facility] Electrocardiogram reportOrde red By: Franko Franco on 11-28-2024 EKG study [facility] Work Phone: Eosinophil percentageOrdered By: Paul Lauren on 11-28-2024 Eosinophils/100 WBC (Bld) 1.3 % 0-5 [facility] Erythrocyte distribution wid th ratioOrdered By: Paul Lauren on 11-28-2024 Erythrocyte distribution width (RBC) [Ratio] 13.6 % 11.6-14.6 [facility] Erythrocyte distribution wid th standard deviationOrdered By: Paul Lauren on 11-28-2024 Erythrocyte distribution width (RBC) [Ratio] 47.8 fl High 35.1-43.9 [facility] Glomerular filtration rate ( GFR) estimation/1.73 sq m using serum, plasma, or whole bOrdered By: Paul Lauren on 11-28-2024 GFR/1.73 sq M.predicted among non-blacks MDRD (S/P/Bld) [Vol rate/Area] 91 mL/min/{1.73_m2} >60 [facility] Hematocrit Auto (Bld) [Volum e fraction]Ordered By: Paul Lauren on 11-28-2024 Hematocrit (Bld) [Volume fraction] 41.3 % 37-47 [facility] Hemoglobin measurementOrdere d By: Paul Lauren on 11-28-2024 Hemoglobin (Bld) [Mass/Vol] 12.8 g/dL 12.0-15.0 [facility] Immature granulocytes/100 WB C Auto (Bld)Ordered By: Paul Lauren on 11-28-2024 Immature granulocytes/100 WBC (Bld) 0.300 % 0.0-0.9 [facility] MCV (mean corpuscular volume ) determinationOrdered By: Paul Lauren on 11-28-2024 MCV (RBC) [Entitic vol] 95.4 fL 81-99 [facility] Mean corpuscular hemoglobin (MCH) determinationOrdered By: Paul Lauren on 11-28-2024 MCH (RBC) [Entitic mass] 29.6 pg 27.0-32.0 [facility] Monocyte percentageOrdered B y: Paul Lauren on 11-28-2024 Monocytes/100 WBC (Bld) 11.3 % High 0-10 [facility] Natriuretic peptide.B prohor len N-Terminal [Mass/volume] in Serum or PlasmaOrdered By: Reynaldo Nguyen on 11-28-2024 Natriuretic peptide.B prohormone N-Terminal [Mass/Vol] 176 pg/mL <1800 [facility] Neutrophil percentageOrdered By: Paul Lauren on 11-28-2024 Neutrophils/100 WBC (Bld) 79.4 % High 47-70 [facility] Phosphoruson 11-28-2024 Phosphate [Mass/Vol] 3.7 mg/dL Normal 2.7-4.5 [facility] Comment on above: Performed By: #### L 501.2300 ####[facility] [address] [place], [address] Platelet countOrdered By: Pino Lauren on 11-28-2024 Platelets (Bld) [#/Vol] 242 10*3/uL 150-450 [facility] Potassium measurement (mass/ volume)Ordered By: Paul Lauren on 11-28-2024 Potassium (Unsp spec) [Mass/Vol] 4.8 mmol/L 3.3-5.1 [facility] Pro- Brain NATRIURETIC PEPTI Jun 11-28-2024 Natriuretic peptide B (Bld) [Mass/Vol] 176 pg/mL Normal <=1800 [facility] Comment on above: Result Comment: Hear t Failure Unlikely: < 300 pg/mLHeart Failure Likely< 50 Years: > 450 pg/mL50-75 Years: > 900 pg/mL>75 Years: > 1800 pg/mL Performed By: #### L 503.7505 ####[facility] [address] [place], [address] RBC Auto (Bld) [#/Vol]Ordere d By: Paul Lauren on 11-28-2024 RBC (Bld) [#/Vol] 4.33 10*6/uL 4.2-5.4 [facility] Serum creatinine measurement (mass/volume)Ordered By: Paul Lauren on 11-28-2024 Creatinine [Mass/Vol] 0.59 mg/dL Low 0.70-1.20 [facility] Serum glucose measurement (m ass/volume)Ordered By: Paul Lauren on 11-28-2024 Glucose [Mass/Vol] 125 mg/dL High 70-99 [facility] Serum or plasma calcium aaron urement (mass/volume)Ordered By: Paul Lauren on 11-28-2024 Calcium [Mass/Vol] 9.9 mg/dL 7.6-11.0 [facility] Serum or plasma urea nitroge n measurement (mass/volume)Ordered By: Paul Lauren on 11-28-2024 Urea nitrogen [Mass/Vol] 21 mg/dL High 4-19 [facility] Sodium levelOrdered By: Sruthi Lauren on 11-28-2024 Sodium [Moles/Vol] 136 mmol/L 133-145 [facility] White blood cell (WBC) count Ordered By: Paul Lauren on 11-28-2024 WBC (Bld) [#/Vol] 7.4 10*3/uL 4.4-11.0 [facility] Bilirubin, totalOrdered By: Reynaldo Nguyen on 11-27-2024 Bilirubin [Mass/Vol] 0.61 mg/dL 0.00-1.30 [facility] CBC W/Diff, Automatedon 11-01 Absolute Lymph 1.02 X10 3/uL Normal 0.83-4.51 [facility] Comment on above: Performed By: #### L 500.4100, L501.2300, L500.4050, L100.0100 ####[facility] [address] [place], [address] Absolute Neut 5.1 X10 3/uL Normal 2.0-7.7 [facility] Comment on above: Performed By: #### L 500.4100, L501.2300, L500.4050, L100.0100 ####[facility] [address] [place], [address] Basophils/100 WBC (Bld) 0.3 % Normal 0-1 [facility] Comment on above: Performed By: #### L 500.4100, L501.2300, L500.4050, L100.0100 ####[facility] [address] [place], [address] Eosinophils/100 WBC (Bld) 1.0 % Normal 0-5 [facility] Comment on above: Performed By: #### L 500.4100, L501.2300, L500.4050, L100.0100 ####[facility] [address] [place], [address] Erythrocyte distribution width (RBC) [Ratio] 13.2 % Normal 11.6-14.6 [facility] Comment on above: Performed By: #### L 500.4100, L501.2300, L500.4050, L100.0100 ####[facility] [address] [place], [address] Hematocrit (Bld) [Volume fraction] 40.1 % Normal 37-47 [facility] Comment on above: Performed By: #### L 500.4100, L501.2300, L500.4050, L100.0100 ####[facility] [address] [place], [address] Hemoglobin (Bld) [Mass/Vol] 12.6 g/dL Normal 12.0-15.0 [facility] Comment on above: Performed By: #### L 500.4100, L501.2300, L500.4050, L100.0100 ####[facility] [address] [place], [address] IG% 0.400 Normal 0.0-0.9 [facility] Comment on above: Result Comment: IG% - Immature Granulocytes (promyelocytes, myelocytes andmetamyelocytes) > 1% indicates that a LEFT SHIFT is Present. Performed By: #### L 500.4100, L501.2300, L500.4050, L100.0100 ####[facility] [address] [place], [address] Lymphocytes/100 WBC (Bld) 14.1 % Low 19-41 [facility] Comment on above: Performed By: #### L 500.4100, L501.2300, L500.4050, L100.0100 ####[facility] [address] [place], [address] MCH (RBC) [Entitic mass] 29.0 pg Normal 27.0-32.0 [facility] Comment on above: Performed By: #### L 500.4100, L501.2300, L500.4050, L100.0100 ####[facility] [address] [place], [address] MCHC (RBC) [Mass/Vol] 31.4 g/dL Low 32-36 [facility] Comment on above: Performed By: #### L 500.4100, L501.2300, L500.4050, L100.0100 ####[facility] [address] [place], [address] MCV (RBC) [Entitic vol] 92.4 fL Normal 81-99 [facility] Comment on above: Performed By: #### L 500.4100, L501.2300, L500.4050, L100.0100 ####[facility] [address] [place], [address] Monocytes/100 WBC (Bld) 13.4 % High 0-10 [facility] Comment on above: Performed By: #### L 500.4100, L501.2300, L500.4050, L100.0100 ####[facility] [address] [place], [address] Neutrophils/100 WBC (Bld) 70.8 % High 47-70 [facility] Comment on above: Performed By: #### L 500.4100, L501.2300, L500.4050, L100.0100 ####[facility] [address] [place], [address] Nucleated RBC (Bld) [#/Vol] 0 10*3/uL Normal 0-5 [facility] Comment on above: Performed By: #### L 500.4100, L501.2300, L500.4050, L100.0100 ####[facility] [address] [place], [address] Platelet mean volume (Bld) [Entitic vol] 9.7 fL Normal 6.2-12.0 [facility] Comment on above: Performed By: #### L 500.4100, L501.2300, L500.4050, L100.0100 ####[facility] [address] [place], [address] Platelets (Bld) [#/Vol] 221 10*3/uL Normal 150-450 [facility] Comment on above: Performed By: #### L 500.4100, L501.2300, L500.4050, L100.0100 ####[facility] [address] [place], [address] RBC (Bld) [#/Vol] 4.34 10*6/uL Normal 4.2-5.4 [facility] Comment on above: Performed By: #### L 500.4100, L501.2300, L500.4050, L100.0100 ####[facility] [address] [place], [address] RDW SD 44.5 fl High 35.1-43.9 [facility] Comment on above: Performed By: #### L 500.4100, L501.2300, L500.4050, L100.0100 ####[facility] [address] [place], [address] WBC (Bld) [#/Vol] 7.2 10*3/uL Normal 4.4-11.0 [facility] Comment on above: Performed By: #### L 500.4100, L501.2300, L500.4050, L100.0100 ####[facility] [address] [place], [address] CPK Total, Creatine Kinaseon 11-27-2024 CPK TOTAL 27 U/L Normal 24-195 [facility] Comment on above: Performed By: #### L 501.3620 ####[facility] [address] [place], [address] Calculated very low density lipoprotein (VLDL) cholesterol measurementOrdered By: Reynaldo Nguyen on 11-27-2024 Calculated very low density lipoprotein (VLDL) cholesterol measurement 17 mg/dL 5-40 [facility] Comprehensive Metabolic Prof ilon 11-27-2024 Albumin [Mass/Vol] 3.1 g/dL Low 3.4-4.8 [facility] Comment on above: Performed By: #### L 500.4100, L501.2300, L500.4050, L100.0100 ####[facility] [address] [place], [address] Albumin/Globulin [Mass ratio] 1.3 {ratio} Normal 0.9-2.4 [facility] Comment on above: Performed By: #### L 500.4100, L501.2300, L500.4050, L100.0100 ####[facility] [address] [place], [address] ALK PHOS 90 U/L Normal 35-104 [facility] Comment on above: Performed By: #### L 500.4100, L501.2300, L500.4050, L100.0100 ####[facility] [address] [place], [address] ALT [Catalytic activity/Vol] 13 U/L Normal <=34 [facility] Comment on above: Performed By: #### L 500.4100, L501.2300, L500.4050, L100.0100 ####[facility] [address] [place], [address] AST [Catalytic activity/Vol] 16 U/L Normal <=31 [facility] Comment on above: Performed By: #### L 500.4100, L501.2300, L500.4050, L100.0100 ####[facility] [address] [place], [address] Bilirubin [Mass/Vol] 0.61 mg/dL Normal 0.00-1.30 [facility] Comment on above: Performed By: #### L 500.4100, L501.2300, L500.4050, L100.0100 ####[facility] [address] [place], [address] BUN/CRE 30.0 RATIO High 10-20 [facility] Comment on above: Performed By: #### L 500.4100, L501.2300, L500.4050, L100.0100 ####[facility] [address] [place], [address] Calcium [Mass/Vol] 9.9 mg/dL Normal 7.6-11.0 [facility] Comment on above: Performed By: #### L 500.4100, L501.2300, L500.4050, L100.0100 ####[facility] [address] [place], [address] Chloride [Moles/Vol] 105 mmol/L Normal 98-108 [facility] Comment on above: Performed By: #### L 500.4100, L501.2300, L500.4050, L100.0100 ####[facility] [address] [place], [address] CO2 [Moles/Vol] 25.3 mmol/L Normal 21.0-32.0 [facility] Comment on above: Performed By: #### L 500.4100, L501.2300, L500.4050, L100.0100 ####[facility] [address] [place], [address] Creatinine [Mass/Vol] 0.49 mg/dL Low 0.70-1.20 [facility] Comment on above: Performed By: #### L 500.4100, L501.2300, L500.4050, L100.0100 ####[facility] [address] [place], [address] ECRCL 56.35 ml/min Normal 50-250 [facility] Comment on above: Performed By: #### L 500.4100, L501.2300, L500.4050, L100.0100 ####[facility] [address] [place], [address] GAP 9 Normal 5-15 [facility] Comment on above: Performed By: #### L 500.4100, L501.2300, L500.4050, L100.0100 ####[facility] [address] [place], [address] GFR/1.73 sq M.predicted among non-blacks MDRD (S/P/Bld) [Vol rate/Area] 95 mL/min/{1.73_m2} Normal >60 [facility] Comment on above: Result Comment: mL/m in/1.73m2 CKD-EPI Creatinine Equation (2020) Performed By: #### L 500.4100, L501.2300, L500.4050, L100.0100 ####[facility] [address] [place], [address] Globulin (S) [Mass/Vol] 2.4 g/dL Normal 2.2-4.[address] [facility] Comment on above: Performed By: #### L 500.4100, L501.2300, L500.4050, L100.0100 ####[facility] [address] [place], [address] Glucose [Mass/Vol] 111 mg/dL High 70-99 [facility] Comment on above: Performed By: #### L 500.4100, L501.2300, L500.4050, L100.0100 ####[facility] [address] [place], [address] Potassium [Moles/Vol] 4.0 mmol/L Normal 3.3-5.1 [facility] Comment on above: Performed By: #### L 500.4100, L501.2300, L500.4050, L100.0100 ####[facility] [address] [place], [address] Sodium [Moles/Vol] 139 mmol/L Normal 133-145 [facility] Comment on above: Performed By: #### L 500.4100, L501.2300, L500.4050, L100.0100 ####[facility] [address] [place], [address] T PROT 5.5 g/dL Low 5.9-8.4 [facility] Comment on above: Performed By: #### L 500.4100, L501.2300, L500.4050, L100.0100 ####[facility] [address] [place], [address] Urea nitrogen [Mass/Vol] 15 mg/dL Normal 4-19 [facility] Comment on above: Performed By: #### L 500.4100, L501.2300, L500.4050, L100.0100 ####[facility] [address] [place], [address] LDL calc ser/plasOrdered By: Reynaldo Nguyen on 11-27-2024 Cholesterol in LDL [Mass/Vol] 35 mg/dL [facility] Lipid Profileon 11-27-2024 CHOL:HDL 2.37 Normal [facility] Comment on above: Performed By: #### L 500.4100, L501.2300, L500.4050, L100.0100 ####[facility] [address] [place], [address] Cholesterol [Mass/Vol] 90 mg/dL Normal <=200 [facility] Comment on above: Result Comment: Chol esterol level, Desirable <200 mg/dLBorderline high cholesterol 200-239 mg/dLHigh cholesterol >=240 mg/dLRecommendations of the NCEP Adult Treatment Panel for thefollowing risk-cutoff thresholds for the [place] [employer]pnemours foundation. Performed By: #### L 500.4100, L501.2300, L500.4050, L100.0100 ####[facility] [address] [place], [address] Cholesterol in HDL [Mass/Vol] 38 mg/dL Low [facility] Comment on above: Result Comment: Taty onal Cholesterol Education Program (NCEP) guidelines:<40 mg/dL: Low HDL-cholesterol (major risk factor for CHD)>= 60 mg/dL: High HDL-cholesterol (negative risk factor forCHD)HDL-cholesterol is affected by a number of factors, e.g.smoking, exercise, hormones, sex and age. Performed By: #### L 500.4100, L501.2300, L500.4050, L100.0100 ####[facility] [address] [place], [address] Cholesterol in LDL [Mass/Vol] 35 mg/dL Normal [facility] Comment on above: Result Comment: Bord cajrhr=048-512 mg/dL Higher Hrnn=604 mg/dL or greaterFriedwald Equation for LDL-C Performed By: #### L 500.4100, L501.2300, L500.4050, L100.0100 ####[facility] [address] [place], [address] Cholesterol in VLDL [Mass/Vol] 17 mg/dL Normal 5-40 [facility] Comment on above: Performed By: #### L 500.4100, L501.2300, L500.4050, L100.0100 ####[facility] [address] [place], [address] Triglyceride [Mass/Vol] 84 mg/dL Normal [facility] Comment on above: Result Comment: The drugs N-Acetylcysteine and Metamizole may falselydepress this assay.Normal range: <150 mg/dLBorderline High: 150-199 mg/dLHigh: 200-499 mg/dLVery High: >500 mg/dL Performed By: #### L 500.4100, L501.2300, L500.4050, L100.0100 ####[facility] [address] [place], [address] No Panel InformationOrdered By: Reynaldo Nguyen on 11-27-2024 16 U/L <32 [facility] Phosphoruson 11-27-2024 Phosphate [Mass/Vol] 3.9 mg/dL Normal 2.7-4.5 [facility] Comment on above: Performed By: #### L 500.4100, L501.2300, L500.4050, L100.0100 ####[facility] [address] [place], [address] Serum globulin measurementOr dered By: Reynaldo Nguyen on 11-27-2024 Globulin (S) [Mass/Vol] 2.4 g/dL 2.2-4.[address] [facility] Serum or plasma alanine rajput otransferase (ALT) measurementOrdered By: Reynaldo Nguyen on 11-27-2024 ALT [Catalytic activity/Vol] 13 U/L <35 [facility] Serum or plasma albumin aaron urement (mass/volume)Ordered By: Reynaldo Nguyen on 11-27-2024 Albumin [Mass/Vol] 3.1 g/dL Low 3.4-4.8 [facility] Serum or plasma albumin/glob ulin mass ratioOrdered By: Reynaldo Nguyen on 11-27-2024 Albumin/Globulin [Mass ratio] 1.3 {ratio} 0.9-2.4 [facility] Serum or plasma alkaline bernardo sphatase measurementOrdered By: Reynaldo Nguyen on 11-27-2024 ALP [Catalytic activity/Vol] 90 U/L 35-104 [facility] Serum or plasma cholesterol in HDL measurement (mass/volume)Ordered By: Reynaldo Nguyen on 11-27-2024 Cholesterol in HDL [Mass/Vol] 38 mg/dL Low >40 [facility] Serum or plasma cholesterol measurement (mass/volume)Ordered By: Reynaldo Nguyen on 11-27-2024 Cholesterol [Mass/Vol] 90 mg/dL <201 [facility] Serum or plasma creatine kin ase activityOrdered By: Paul Lauren on 11-27-2024 CK [Catalytic activity/Vol] 27 U/L 24-195 [facility] T4 Free Directon 11-27-2024 T4 FREE DIRECT 2.10 ng/dL High 0.76-1.46 [facility] Comment on above: Performed By: #### L 506.0400 ####[facility] [address] [place], [place], [id number] T4 freeOrdered By: Paul chavira on 11-27-2024 Free T4 [Mass/Vol] 2.10 ng/dL High 0.76-1.46 [facility] Total proteinOrdered By: Remi Nguyen on 11-27-2024 Protein [Mass/Vol] 5.5 g/dL Low 5.9-8.4 [facility] 12 Lead EKGon 11-26-2024 12 Lead EKG Normal [facility] Activated partial thrombopla stin time (aPTT) in platelet poor plasma by coagulation aOrdered By: Stephanie Kincaid on 11-26-2024 aPTT Coag (PPP) [Time] 29.2 s 24.1-36.2 [facility] Alcohol, Blood (Medical)-Ser umon 11-26-2024 SERUM ETOH < 10.1 Normal <=10.0 [facility] Comment on above: Result Comment: This test is for medical purposes only. The legaldefinition of intoxication varies according to local law. Performed By: #### L 501.9520, L501.9985, L506.0200, L501.9100, L501.5200, L505.5000 ####[facility] [address] [place], [place], [id number] Amorphous sediment detection in urine sediment by light microscopyOrdered By: Stephanie Kincaid on 11-26-2024 Amorphous sediment LM Ql (Urine sed) 1+ [facility] Amphetamine detection with 1 000 ng/mL as cutoffOrdered By: Reynaldo Nguyen on 11-26-2024 Amphetamines Screen method >1000 ng/mL Ql (U) Negative < 200 ng/mL [facility] Basic Metabolic Profile (BMP )on 11-26-2024 BUN/CRE 30.3 RATIO High 10-20 [facility] Comment on above: Performed By: #### L 503.7505, L300.4310, L300.3900, L100.0100, L500.2500 ####[facility] [address] [place], [place], [id number] Calcium [Mass/Vol] 10.1 mg/dL Normal 7.6-11.0 [facility] Comment on above: Performed By: #### L 503.7505, L300.4310, L300.3900, L100.0100, L500.2500 ####[facility] [address] [place], [address] Chloride [Moles/Vol] 103 mmol/L Normal 98-108 [facility] Comment on above: Performed By: #### L 503.7505, L300.4310, L300.3900, L100.0100, L500.2500 ####[facility] [address] [place], [address] CO2 [Moles/Vol] 25.9 mmol/L Normal 21.0-32.0 [facility] Comment on above: Performed By: #### L 503.7505, L300.4310, L300.3900, L100.0100, L500.2500 ####[facility] [address] [place], [address] Creatinine [Mass/Vol] 0.53 mg/dL Low 0.70-1.20 [facility] Comment on above: Performed By: #### L 503.7505, L300.4310, L300.3900, L100.0100, L500.2500 ####[facility] [address] [place], [address] ECRCL 57.00 ml/min Normal 50-250 [facility] Comment on above: Performed By: #### L 503.7505, L300.4310, L300.3900, L100.0100, L500.2500 ####[facility] [address] [place], [address] GAP 9 Normal 5-15 [facility] Comment on above: Performed By: #### L 503.7505, L300.4310, L300.3900, L100.0100, L500.2500 ####[facility] [address] [place], [address] GFR/1.73 sq M.predicted among non-blacks MDRD (S/P/Bld) [Vol rate/Area] 93 mL/min/{1.73_m2} Normal >60 [facility] Comment on above: Result Comment: mL/m in/1.73m2 CKD-EPI Creatinine Equation (2020) Performed By: #### L 503.7505, L300.4310, L300.3900, L100.0100, L500.2500 ####[facility] [address] [place], [address] Glucose [Mass/Vol] 122 mg/dL High 70-99 [facility] Comment on above: Performed By: #### L 503.7505, L300.4310, L300.3900, L100.0100, L500.2500 ####[facility] [address] [place], [address] Potassium [Moles/Vol] 4.8 mmol/L Normal 3.3-5.1 [facility] Comment on above: Performed By: #### L 503.7505, L300.4310, L300.3900, L100.0100, L500.2500 ####[facility] [address] [place], [address] Sodium [Moles/Vol] 138 mmol/L Normal 133-145 [facility] Comment on above: Performed By: #### L 503.7505, L300.4310, L300.3900, L100.0100, L500.2500 ####[facility] [address] [place], [address] Urea nitrogen [Mass/Vol] 16 mg/dL Normal 4-19 [facility] Comment on above: Performed By: #### L 503.7505, L300.4310, L300.3900, L100.0100, L500.2500 ####[facility] [address] [place], [address] Bilirubin Test strip Ql (U)O rdered By: Stephanie Kincaid on 11-26-2024 Bilirubin Ql (U) Negative Negative [facility] Brain/Head without Contrasto n 11-26-2024 Brain/Head without Contrast Normal [facility] CBC W/Diff, Automatedon 11-01 Absolute Lymph 0.75 X10 3/uL Low 0.83-4.51 [facility] Comment on above: Performed By: #### L 503.7505, L300.4310, L300.3900, L100.0100, L500.2500 ####[facility] [address] [place], [address] Absolute Neut 6.2 X10 3/uL Normal 2.0-7.7 [facility] Comment on above: Performed By: #### L 503.7505, L300.4310, L300.3900, L100.0100, L500.2500 ####[facility] [address] [place], [address] Basophils/100 WBC (Bld) 0.3 % Normal 0-1 [facility] Comment on above: Performed By: #### L 503.7505, L300.4310, L300.3900, L100.0100, L500.2500 ####[facility] [address] [place], [address] Eosinophils/100 WBC (Bld) 0.8 % Normal 0-5 [facility] Comment on above: Performed By: #### L 503.7505, L300.4310, L300.3900, L100.0100, L500.2500 ####[facility] [address] [place], [address] Erythrocyte distribution width (RBC) [Ratio] 13.2 % Normal 11.6-14.6 [facility] Comment on above: Performed By: #### L 503.7505, L300.4310, L300.3900, L100.0100, L500.2500 ####[facility] [address] [place], [address] Hematocrit (Bld) [Volume fraction] 41.7 % Normal 37-47 [facility] Comment on above: Performed By: #### L 503.7505, L300.4310, L300.3900, L100.0100, L500.2500 ####[facility] [address] [place], [address] Hemoglobin (Bld) [Mass/Vol] 13.7 g/dL Normal 12.0-15.0 [facility] Comment on above: Performed By: #### L 503.7505, L300.4310, L300.3900, L100.0100, L500.2500 ####[facility] [address] [place], [address] IG% 0.300 Normal 0.0-0.9 [facility] Comment on above: Result Comment: IG% - Immature Granulocytes (promyelocytes, myelocytes andmetamyelocytes) > 1% indicates that a LEFT SHIFT is Present. Performed By: #### L 503.7505, L300.4310, L300.3900, L100.0100, L500.2500 ####[facility] [address] [place], [address] Lymphocytes/100 WBC (Bld) 9.7 % Low 19-41 [facility] Comment on above: Performed By: #### L 503.7505, L300.4310, L300.3900, L100.0100, L500.2500 ####[facility] [address] [place], [address] MCH (RBC) [Entitic mass] 29.6 pg Normal 27.0-32.0 [facility] Comment on above: Performed By: #### L 503.7505, L300.4310, L300.3900, L100.0100, L500.2500 ####[facility] [address] [place], [address] MCHC (RBC) [Mass/Vol] 32.9 g/dL Normal 32-36 [facility] Comment on above: Performed By: #### L 503.7505, L300.4310, L300.3900, L100.0100, L500.2500 ####[facility] [address] [place], [address] MCV (RBC) [Entitic vol] 90.1 fL Normal 81-[address] [facility] Comment on above: Performed By: #### L 503.7505, L300.4310, L300.3900, L100.0100, L500.2500 ####[facility] [address] [place], [address] Monocytes/100 WBC (Bld) 9.2 % Normal 0-[address] [facility] Comment on above: Performed By: #### L 503.7505, L300.4310, L300.3900, L100.0100, L500.2500 ####[facility] [address] [place], [address] Neutrophils/100 WBC (Bld) 79.7 % High 47-70 [facility] Comment on above: Performed By: #### L 503.7505, L300.4310, L300.3900, L100.0100, L500.2500 ####[facility] [address] [place], [address] Nucleated RBC (Bld) [#/Vol] 0 10*3/uL Normal 0-5 [facility] Comment on above: Performed By: #### L 503.7505, L300.4310, L300.3900, L100.0100, L500.2500 ####[facility] [address] [place], [address] Platelet mean volume (Bld) [Entitic vol] 9.3 fL Normal 6.2-12.0 [facility] Comment on above: Performed By: #### L 503.7505, L300.4310, L300.3900, L100.0100, L500.2500 ####[facility] [address] [place], [address] Platelets (Bld) [#/Vol] 227 10*3/uL Normal 150-450 [facility] Comment on above: Performed By: #### L 503.7505, L300.4310, L300.3900, L100.0100, L500.2500 ####[facility] [address] [place], [address] RBC (Bld) [#/Vol] 4.63 10*6/uL Normal 4.2-5.4 [facility] Comment on above: Performed By: #### L 503.7505, L300.4310, L300.3900, L100.0100, L500.2500 ####[facility] [address] [place], [address] RDW SD 43.5 fl Normal 35.1-43.9 [facility] Comment on above: Performed By: #### L 503.7505, L300.4310, L300.3900, L100.0100, L500.2500 ####[facility] [address] [place], [address] WBC (Bld) [#/Vol] 7.7 10*3/uL Normal 4.4-11.0 [facility] Comment on above: Performed By: #### L 503.7505, L300.4310, L300.3900, L100.0100, L500.2500 ####[facility] [address] [place], [address] Chest PA and Lateralon 11-26 Chest PA and Lateral Normal [facility] Emergency Department Summary on 11-26-2024 Emergency Department Summary Normal [facility] Folate [Mass/volume] in Seru m or PlasmaOrdered By: Reynaldo Nguyen on 11-26-2024 Folate [Mass/Vol] 25.60 ng/mL 4.60-34.80 [facility] Folates,Serum (Folic Acid)on 11-26-2024 FOLATES,SERUM 25.60 ng/mL Normal 4.60-34.80 [facility] Comment on above: Result Comment: Hemo lysis, Results will be affected, Requires Recollection. Performed By: #### L 501.9520, L501.9985, L506.0200, L501.9100, L501.5200, L505.5000 ####[facility] [address] [place], [address] H AND P Exam - Hospitaliston 11-26-2024 H&P Exam - Hospitalist Normal [facility] Hemoglobin A1con 11-26-2024 HbA1c (Bld) [Mass fraction] 5.6 % Normal <=5.6 [facility] Comment on above: Result Comment: Norm al < 5.7 % Prediabetic 5.7 - 6.4 % Diabetic >or= 6.5 % Please note range changes. Performed By: #### L 501.9520, L501.9985, L506.0200, L501.9100, L501.5200, L505.5000 ####[facility] [address] [place], [address] Hemoglobin A1c percentageOrd ered By: Reynaldo Nguyen on 11-26-2024 HbA1c (Bld) [Mass fraction] 5.6 % <5.7 [facility] Influenza virus A and B and SARS-CoV-2 (COVID-19) and Respiratory syncytial virus RNAOrdered By: Stephanie Kincaid on 11-26-2024 SARS-CoV-2 (COVID-19) RNA LIBRADO+probe Ql (Unsp spec) [facility] Ketones Test strip Ql (U)Ord ered By: Stephanie Kincaid on 11-26-2024 Ketones Ql (U) Negative Negative [facility] L501.4021on 11-26-2024 Trop T High Sen 28 ng/L High <=14 [facility] Comment on above: Performed By: #### L 501.4021 ####[facility] [address] [place], [address] M100.678on 11-26-2024 M100.678 Pending SARS-CoV-2 (COVID 19) Negative INFLUENZA A Negative INFLUENZA B Negative RSV PCR Negative Normal [facility] Comment on above: Performed By: #### M 100.678 ####[facility] [address] [place], [address] Magnesiumon 11-26-2024 Magnesium [Mass/Vol] 2.1 mg/dL Normal 1.5-2.2 [facility] Comment on above: Performed By: #### L 501.9520, L501.9985, L506.0200, L501.9100, L501.5200, L505.5000 ####[facility] [address] [place], [address] Magnesium measurement (mass/ volume)Ordered By: Reynaldo Nguyen on 11-26-2024 Magnesium (Unsp spec) [Mass/Vol] 2.1 mg/dL 1.5-2.2 [facility] Mucus LM Ql (Urine sed)Order ed By: Stephanie Kincaid on 11-26-2024 Mucus Ql (Urine sed) 0 SEEN /hpf [facility] Nitrite Test strip Ql (U)Ord ered By: Stephanie Kincaid on 11-26-2024 Nitrite Ql (U) Negative Negative [facility] No Panel InformationOrdered By: Reynaldo Nguyen on 11-26-2024 Negative < 200 ng/mL [facility] Partial Thromboplast Timeon 11-26-2024 aPTT Coag (Bld) [Time] 29.2 s Normal 24.1-36.2 [facility] Comment on above: Performed By: #### L 503.7505, L300.4310, L300.3900, L100.0100, L500.2500 ####[facility] [address] [place], [place], [id number] Pro- Brain NATRIURETIC PEPTI Jun 11-26-2024 Natriuretic peptide B (Bld) [Mass/Vol] 517 pg/mL Normal <=1800 [facility] Comment on above: Result Comment: Hear t Failure Unlikely: < 300 pg/mLHeart Failure Likely< 50 Years: > 450 pg/mL50-75 Years: > 900 pg/mL>75 Years: > 1800 pg/mL Performed By: #### L 503.7505, L300.4310, L300.3900, L100.0100, L500.2500 ####[facility] [address] [place], [address] Protein Test strip Ql (U)Ord ered By: Stephanie Kincaid on 11-26-2024 Protein Ql (U) 15 mg/dl High Negative [facility] Prothrombin Time w/INRon INR Coag (PPP) [Relative time] 1.2 {INR} Normal [facility] Comment on above: Performed By: #### L 503.7505, L300.4310, L300.3900, L100.0100, L500.2500 ####[facility] [address] [place], [address] PT Coag (PPP) [Time] 15.8 s High 11.7-14.9 [facility] Comment on above: Performed By: #### L 503.7505, L300.4310, L300.3900, L100.0100, L500.2500 ####[facility] [address] [place], [address] Prothrombin timeOrdered By: Stephanie Kincaid on 11-26-2024 PT Coag (PPP) [Time] 15.8 s High 11.7-14.9 [facility] Screening urine fentanyl timothy surementOrdered By: Reynaldo Nguyen on 11-26-2024 fentaNYL Screen Ql (U) Negative <5 ng/mL [facility] Serum or plasma ethanol aaron urement (mass/volume)Ordered By: Reynaldo Nguyen on 11-26-2024 Ethanol [Mass/Vol] mg/dL <10.1 [facility] Spine Cervical without Contr ason 11-26-2024 Spine Cervical without Contras Normal [facility] Squamous epithelial cells de tection in urine sediment by light microscopyOrdered By: Stephanie Kincaid on 11-26-2024 Epithelial cells.squamous LM Ql (Urine sed) 10-25 SEEN /hpf 5-10 [facility] TSH DL <= 0.005 mIU/L QnOrde red By: Reynaldo Nguyen on 11-26-2024 TSH Qn < 0.005 uIU/mL Low 0.300-4.200 [facility] Thyroid Stim Hormone (TSH)on 11-26-2024 TSH Qn m[IU]/L Low 0.300-4.200 [facility] Comment on above: Performed By: #### L 501.9520, L501.9985, L506.0200, L501.9100, L501.5200, L505.5000 ####[facility] [address] [place], [address] Troponin T HS 2 HRon 025 Trop T High Sen 27 ng/L High <=14 [facility] Comment on above: Performed By: #### L 499.0042 ####[facility] [address] [place], [address] Troponin T HS 4 HRon 025 Trop T High Sen 29 ng/L High <=14 [facility] Comment on above: Performed By: #### L 499.0043 ####[facility] [address] [place], [address] Troponin T.cardiac [Mass/vol ume] in Serum or Plasma by High sensitivity methodOrdered By: Stephanie Kincaid on 11-26-2024 Troponin T.cardiac High sensitivity method [Mass/Vol] 29 ng/L High <14 [facility] Troponin T.cardiac High sensitivity method [Mass/Vol] 27 ng/L High <14 [facility] Troponin T.cardiac High sensitivity method [Mass/Vol] 28 ng/L High <14 [facility] Urinalysis, Completeon 11-26 AMORPHOUS 1+ Normal [facility] Comment on above: Order Comment: CLEAN CATCH Performed By: #### L 400.0001 ####[facility] [address] [place], [address] BACTERIA 2+ /hpf Normal None Seen [facility] Comment on above: Order Comment: CLEAN CATCH Performed By: #### L 400.0001 ####[facility] [address] [place], [address] EPI,SQUAMOUS 10-25 SEEN Normal 5-10 [facility] Comment on above: Order Comment: CLEAN CATCH Performed By: #### L 400.0001 ####[facility] [address] [place], [address] RBC 0-5 SEEN Normal 0-5 [facility] Comment on above: Order Comment: CLEAN CATCH Performed By: #### L 400.0001 ####[facility] [address] [place], [address] WBC 0-5 SEEN Normal 0-5 [facility] Comment on above: Order Comment: CLEAN CATCH Performed By: #### L 400.0001 ####[facility] [address] [place], [address] Mucus Ql (Urine sed) 0 SEEN Normal [facility] Comment on above: Order Comment: CLEAN CATCH Performed By: #### L 400.0001 ####[facility] [address] [place], [address] Urine Drug Screen (VISTA)on 11-26-2024 AMPHETAMINES Negative Normal <1000 ng/mL [facility] Comment on above: Performed By: #### L 501.9520, L501.9985, L506.0200, L501.9100, L501.5200, L505.5000 ####[facility] [address] [facility] [address] BARBITIURATES Negative Normal < 200 ng/mL [facility] Comment on above: Performed By: #### L 501.9520, L501.9985, L506.0200, L501.9100, L501.5200, L505.5000 ####[facility] [address] [place], [address] BENZODIAZIPINE Negative Normal < 200 ng/mL [facility] Comment on above: Performed By: #### L 501.9520, L501.9985, L506.0200, L501.9100, L501.5200, L505.5000 ####[facility] [address] [place], [place], [phone] BUP Ur Drug Scr Negative Normal < 200 ng/mL [facility] Comment on above: Performed By: #### L 501.9520, L501.9985, L506.0200, L501.9100, L501.5200, L505.5000 ####[facility] [address] [place], [place], [phone] COCAINE Negative Normal < 300 ng/mL [facility] Comment on above: Performed By: #### L 501.9520, L501.9985, L506.0200, L501.9100, L501.5200, L505.5000 ####[facility] [address] [place], [place], [phone] Fentanyl Negative Normal <5 ng/mL [facility] Comment on above: Result Comment: CONF IRMATORY [...] Use testmnemonic: UTCA Performed By: #### L 501.9520, L501.9985, L506.0200, L501.9100, L501.5200, L505.5000 ####[facility] [address] [place], [address] METHADONE Negative Normal < 300 ng/mL [facility] Comment on above: Performed By: #### L 501.9520, L501.9985, L506.0200, L501.9100, L501.5200, L505.5000 ####[facility] [address] [place], [phone] OPIATES Negative Normal < 300 ng/mL [facility] Comment on above: Performed By: #### L 501.9520, L501.9985, L506.0200, L501.9100, L501.5200, L505.5000 ####[facility] [address] [place], [phone] OXYCODONE Negative Normal < 100 ng/mL [facility] Comment on above: Performed By: #### L 501.9520, L501.9985, L506.0200, L501.9100, L501.5200, L505.5000 ####[facility] [address] [place], [place], [phone] PCP Negative Normal < 25 ng/mL [facility] Comment on above: Performed By: #### L 501.9520, L501.9985, L506.0200, L501.9100, L501.5200, L505.5000 ####[facility] [address] [place], [address] THC Negative Normal < 50 ng/mL [facility] Comment on above: Performed By: #### L 501.9520, L501.9985, L506.0200, L501.9100, L501.5200, L505.5000 ####[facility] [address] [place], [place], [id number] Urine clarityOrdered By: Sally Kincaid on 11-26-2024 Clarity (U) Sl. Cloudy Clear [facility] Urine color determinationOrd ered By: Stephanie Kincaid on 11-26-2024 Color (U) Yellow Yellow [facility] Urine glucose detectionOrder ed By: Stephanie Kincaid on 11-26-2024 Glucose Ql (U) Normal mg/dl Normal [facility] Urine leukocyte esterase det ection by dipstickOrdered By: Stephanie Kincaid on 11-26-2024 Leukocyte esterase Test strip Ql (U) Negative Negative [facility] Urine pHOrdered By: Stephanie white on 11-26-2024 pH (U) 6.5 [pH] 5.0 - 8.0 [facility] Urine phencyclidine (PCP) de tectionOrdered By: Reynaldo Nguyen on 11-26-2024 Phencyclidine Ql (U) Negative < 25 ng/mL [facility] Urine sediment bacteria coun t by microscopy (number/high power field)Ordered By: Stephanie Kincaid on 11-26-2024 Bacteria LM.HPF (Urine sed) [#/Area] 2 /[HPF] None Seen [facility] Urine specific gravity measu rementOrdered By: Stephanie Kincaid on 11-26-2024 Specific gravity (U) [Rel density] 1.015 1.002-1.030 [facility] Urine urobilinogen measureme ntOrdered By: Stephanie Kincaid on 11-26-2024 Urobilinogen Ql (U) Normal mg/dl Normal [facility] Vitamin B12on 11-26-2024 Cobalamin (Vitamin B12) [Mass/Vol] 439 pg/mL Normal 180-914 [facility] Comment on above: Performed By: #### L 503.0106 ####[facility] [address] [place], [address] Vitamin B12 ser/plasOrdered By: Reynaldo Nguyen on 11-26-2024 Cobalamin (Vitamin B12) [Mass/Vol] 439 pg/mL 180-914 [facility] White blood cell countOrdere d By: Stephanie Kincaid on 11-26-2024 White blood cell count 0-5 SEEN /hpf 0-5 [facility] Urine Cultureon 10-28-2024 URC Normal [facility] Comment on above: Performed By: #### M 100.2200, L400.0001 ####[facility] [address] [place], [address] Absolute lymphocyte countOrd ered By: Aranza Little on 10-26-2024 Lymphocytes Auto (Unsp spec) [#/Vol] 0.88 10*3/uL 0.83-4.51 [facility] Absolute neutrophil countOrd ered By: Aranza Little on 10-26-2024 Neutrophils (Bld) [#/Vol] 4.7 10*3/uL 2.0-7.7 [facility] Anion gap in Serum or Plasma Ordered By: Aranza Little on 10-26-2024 Anion gap [Moles/Vol] 7 mmol/L 5-15 [facility] Automated lymphocyte count a s percentage of total leukocytesOrdered By: Aranza Little on 10-26-2024 Lymphocytes/100 WBC Auto (Unsp spec) 13.8 % Low 19-41 [facility] BUN/creatinine ratioOrdered By: Aranza Little on 10-26-2024 Urea nitrogen/Creatinine [Mass ratio] 31.8 mg/mg High 10-20 [facility] Basic Metabolic Profile (BMP )on 10-26-2024 BUN/CRE 31.8 RATIO High 10-20 [facility] Comment on above: Performed By: #### L 100.0100, L500.2500, L500.4100 ####[facility] [address] [place], [address] Calcium [Mass/Vol] 9.6 mg/dL Normal 7.6-11.0 [facility] Comment on above: Performed By: #### L 100.0100, L500.2500, L500.4100 ####[facility] [address] [place], [address] Chloride [Moles/Vol] 105 mmol/L Normal 98-108 [facility] Comment on above: Performed By: #### L 100.0100, L500.2500, L500.4100 ####[facility] [address] [place], [address] CO2 [Moles/Vol] 27.0 mmol/L Normal 21.0-32.0 [facility] Comment on above: Performed By: #### L 100.0100, L500.2500, L500.4100 ####[facility] [address] [place], [address] Creatinine [Mass/Vol] 0.49 mg/dL Low 0.70-1.20 [facility] Comment on above: Performed By: #### L 100.0100, L500.2500, L500.4100 ####[facility] [address] [place], [address] ECRCL 53.57 ml/min Normal 50-250 [facility] Comment on above: Performed By: #### L 100.0100, L500.2500, L500.4100 ####[facility] [address] [place], [address] GAP 7 Normal 5-15 [facility] Comment on above: Performed By: #### L 100.0100, L500.2500, L500.4100 ####[facility] [address] [place], [address] GFR/1.73 sq M.predicted among non-blacks MDRD (S/P/Bld) [Vol rate/Area] 95 mL/min/{1.73_m2} Normal >60 [facility] Comment on above: Result Comment: mL/m in/1.73m2 CKD-EPI Creatinine Equation (2020) Performed By: #### L 100.0100, L500.2500, L500.4100 ####[facility] [address] [place], [address] Glucose [Mass/Vol] 111 mg/dL High 70-99 [facility] Comment on above: Performed By: #### L 100.0100, L500.2500, L500.4100 ####[facility] [address] [place], [address] Potassium [Moles/Vol] 4.3 mmol/L Normal 3.3-5.1 [facility] Comment on above: Performed By: #### L 100.0100, L500.2500, L500.4100 ####[facility] [address] [place], [address] Sodium [Moles/Vol] 139 mmol/L Normal 133-145 [facility] Comment on above: Performed By: #### L 100.0100, L500.2500, L500.4100 ####[facility] [address] [place], [address] Urea nitrogen [Mass/Vol] 16 mg/dL Normal 4-19 [facility] Comment on above: Performed By: #### L 100.0100, L500.2500, L500.4100 ####[facility] [address] [place], [address] Basophil percentageOrdered B y: Aranza Little on 10-26-2024 Basophils/100 WBC (Bld) 0.2 % 0-1 [facility] CBC W/Diff, Automatedon 10-01 Absolute Lymph 0.88 X10 3/uL Normal 0.83-4.51 [facility] Comment on above: Performed By: #### L 100.0100, L500.2500, L500.4100 ####[facility] [address] [place], [address] Absolute Neut 4.7 X10 3/uL Normal 2.0-7.7 [facility] Comment on above: Performed By: #### L 100.0100, L500.2500, L500.4100 ####[facility] [address] [place], [address] Basophils/100 WBC (Bld) 0.2 % Normal 0-1 [facility] Comment on above: Performed By: #### L 100.0100, L500.2500, L500.4100 ####[facility] [address] [place], [address] Eosinophils/100 WBC (Bld) 1.6 % Normal 0-5 [facility] Comment on above: Performed By: #### L 100.0100, L500.2500, L500.4100 ####[facility] [address] [place], [address] Erythrocyte distribution width (RBC) [Ratio] 12.9 % Normal 11.6-14.6 [facility] Comment on above: Performed By: #### L 100.0100, L500.2500, L500.4100 ####[facility] [address] [place], [address] Hematocrit (Bld) [Volume fraction] 39.5 % Normal 37-47 [facility] Comment on above: Performed By: #### L 100.0100, L500.2500, L500.4100 ####[facility] [address] [place], [address] Hemoglobin (Bld) [Mass/Vol] 13.1 g/dL Normal 12.0-15.0 [facility] Comment on above: Performed By: #### L 100.0100, L500.2500, L500.4100 ####[facility] [address] [place], [address] IG% 0.200 Normal 0.0-0.9 [facility] Comment on above: Result Comment: IG% - Immature Granulocytes (promyelocytes, myelocytes andmetamyelocytes) > 1% indicates that a LEFT SHIFT is Present. Performed By: #### L 100.0100, L500.2500, L500.4100 ####[facility] [address] [place], [address] Lymphocytes/100 WBC (Bld) 13.8 % Low 19-41 [facility] Comment on above: Performed By: #### L 100.0100, L500.2500, L500.4100 ####[facility] [address] [place], [address] MCH (RBC) [Entitic mass] 30.4 pg Normal 27.0-32.0 [facility] Comment on above: Performed By: #### L 100.0100, L500.2500, L500.4100 ####[facility] [address] [place], [address] MCHC (RBC) [Mass/Vol] 33.2 g/dL Normal 32-36 [facility] Comment on above: Performed By: #### L 100.0100, L500.2500, L500.4100 ####[facility] [address] [place], [address] MCV (RBC) [Entitic vol] 91.6 fL Normal 81-[address] [facility] Comment on above: Performed By: #### L 100.0100, L500.2500, L500.4100 ####[facility] [address] [place], [address] Monocytes/100 WBC (Bld) 10.3 % High 0-10 [facility] Comment on above: Performed By: #### L 100.0100, L500.2500, L500.4100 ####[facility] [address] [place], [address] Neutrophils/100 WBC (Bld) 73.9 % High 47-70 [facility] Comment on above: Performed By: #### L 100.0100, L500.2500, L500.4100 ####[facility] [address] [place], [address] Nucleated RBC (Bld) [#/Vol] 0 10*3/uL Normal 0-5 [facility] Comment on above: Performed By: #### L 100.0100, L500.2500, L500.4100 ####[facility] [address] [place], [address] Platelet mean volume (Bld) [Entitic vol] 9.4 fL Normal 6.2-12.0 [facility] Comment on above: Performed By: #### L 100.0100, L500.2500, L500.4100 ####[facility] [address] [place], [address] Platelets (Bld) [#/Vol] 170 10*3/uL Normal 150-450 [facility] Comment on above: Performed By: #### L 100.0100, L500.2500, L500.4100 ####[facility] [address] [place], [address] RBC (Bld) [#/Vol] 4.31 10*6/uL Normal 4.2-5.4 [facility] Comment on above: Performed By: #### L 100.0100, L500.2500, L500.4100 ####[facility] [address] [place], [address] RDW SD 43.0 fl Normal 35.1-43.9 [facility] Comment on above: Performed By: #### L 100.0100, L500.2500, L500.4100 ####[facility] [address] [place], [address] WBC (Bld) [#/Vol] 6.4 10*3/uL Normal 4.4-11.0 [facility] Comment on above: Performed By: #### L 100.0100, L500.2500, L500.4100 ####[facility] [address] [place], [address] Calculated very low density lipoprotein (VLDL) cholesterol measurementOrdered By: Aranza Little on 10-26-2024 Calculated very low density lipoprotein (VLDL) cholesterol measurement 15 mg/dL 5-40 [facility] Carbon dioxide, total [Moles /volume] in Central venous bloodOrdered By: Aranza Little on 10-26-2024 CO2 [Moles/Vol] 27.0 mmol/L 21.0-32.0 [facility] Cardiovascular stress test r eportOrdered By: Franko Franco on 10-26-2024 Study report [facility] [address] [place] [address] MR#: [id number] Acct: [id number] Name: AYAN CARRILLO Rep #: [id number] : 1945 79 From: Franko Franco MD Primary Care: Dr. Brayan Thompson MD Status: ADM DENISE Referring Dr: Sex: F C Stress Test [...] per usual protocol peak infusion[43.7 mCi ]of Luohkayeyq43u sestamibi was injected. Stress images were obtained [...] and normal LV systolic function. Franko Franco MD,[facility] insulation cutter 10/26/24 1317 Date _ Franko Franco MD CC: Dr. Brayan Thompson MD; Dr. Seth Flores MD; Dr. Aranza Little MD; Dr. Jaylen Jack DO ~ Date Dictated: 10/26/24 1309 Date Transcribed: 10/26/24 130 County Records Management Officer: FB Signed [facility] Work Phone: Chloride assayOrdered By: Pedrito Little on 10-26-2024 Chloride [Moles/Vol] 105 mmol/L 98-108 [facility] Discharge Instructionon 10-01 Discharge Instruction Normal [facility] Echocardiogram study reportO rdered By: Franko Franco on 10-26-2024 Study report [facility] [address] [place] [address] Echo Complete 10/26/24 08 MR#: [id number] Acct: [id number] Name: AYAN CARRILLO Rep #:[id number] : 1945 79 From: Franko Franco MD Attending Dr: Dr. Seth Flores MD Status: ADM DENISE Ordering Dr: Aranza Little MD Date: Location: [facility] Sex: F C Admitted: 10/25/24 Reason For [...] Dr. Aranza Little MD ~ Date Dictated: 10/26/24 0824 Date Transcribed: 10/26/24 1446 County Records Management Officer: Signed [facility] Work Phone: Electrocardiogram reportOrde red By: Franko Franco on 10-26-2024 EKG study [facility] Cardiovascular Services [address] [place] [address] 12 Lead EKG 10/25/24 1214 MR#: [id number] Acct: [id number] Name: AYAN CARRILLO Rep #:[id number] : 1945 79 From: Franko Franco MD Attending Dr: Dr. Seth Flores MD Status: ADM DENISE Ordering Dr: Aranza Little MD Date: Location: [facility] Sex: F C Admitted: 10/25/24 Test Reason [...] undetermined Abnormal ECG Confirmed by FRANKO FRANCO ([id number]), index editor KIRSTIN ARAIZA ([id number]) on 10/26/2024 1:54:17 PM Referred By: TA/AR Confirmed By: FRANKO FRANCO 10/26/24 1354 Date _ Franko Franco MD CC: Dr. Brayan Thompson MD; Dr. Seth Flores MD; Dr. Aranza Little MD ~ Signed [facility] Work Phone: Eosinophil percentageOrdered By: Aranza Little on 10-26-2024 Eosinophils/100 WBC (Bld) 1.6 % 0-5 [facility] Erythrocyte distribution wid th ratioOrdered By: Aranza Little on 10-26-2024 Erythrocyte distribution width (RBC) [Ratio] 12.9 % 11.6-14.6 [facility] Erythrocyte distribution wid th standard deviationOrdered By: Aranza Little on 10-26-2024 Erythrocyte distribution width (RBC) [Ratio] 43.0 fl 35.1-43.9 [facility] Glomerular filtration rate ( GFR) estimation/1.73 sq m using serum, plasma, or whole bOrdered By: Aranza Little on 10-26-2024 GFR/1.73 sq M.predicted among non-blacks MDRD (S/P/Bld) [Vol rate/Area] 95 mL/min/{1.73_m2} >60 [facility] Comment on above: mL/min/1.73m2 CKD-EP I Creatinine Equation (2020) Hematocrit Auto (Bld) [Volum e fraction]Ordered By: Aranza Little on 10-26-2024 Hematocrit (Bld) [Volume fraction] 39.5 % 37-47 [facility] Hemoglobin measurementOrdere d By: Aranza Little on 10-26-2024 Hemoglobin (Bld) [Mass/Vol] 13.1 g/dL 12.0-15.0 [facility] Immature granulocytes/100 WB C Auto (Bld)Ordered By: Aranza Little on 10-26-2024 Immature granulocytes/100 WBC (Bld) 0.200 % 0.0-0.9 [facility] Comment on above: IG% - Immature Granu locytes (promyelocytes, myelocytes and metamyelocytes) > 1% indicates that a LEFT SHIFT is Present. LDL calc ser/plasOrdered By: Aranza Little on 10-26-2024 Cholesterol in LDL [Mass/Vol] 38 mg/dL [facility] Comment on above: Xximrfogen=091-627 m g/dL & Higher Rcdf=744 mg/dL or greaterFriedwald Equation for LDL-C Lipid Profileon 10-26-2024 CHOL:HDL 2.49 Normal [facility] Comment on above: Performed By: #### L 100.0100, L500.2500, L500.4100 ####[facility] [address] [place], [place], [address] Cholesterol [Mass/Vol] 89 mg/dL Normal <=200 [facility] Comment on above: Result Comment: Chol esterol level, Desirable <200 mg/dLBorderline high cholesterol 200-239 mg/dLHigh cholesterol >=240 mg/dLRecommendations of the NCEP Adult Treatment Panel for thefollowing risk-cutoff thresholds for the [place] Americanpulation. Performed By: #### L 100.0100, L500.2500, L500.4100 ####[facility] [address] [place], [address] Cholesterol in HDL [Mass/Vol] 36 mg/dL Low [facility] Comment on above: Result Comment: Taty onal Cholesterol Education Program (NCEP) guidelines:<40 mg/dL: Low HDL-cholesterol (major risk factor for CHD)>= 60 mg/dL: High HDL-cholesterol (negative risk factor forCHD)HDL-cholesterol is affected by a number of factors, e.g.smoking, exercise, hormones, sex and age. Performed By: #### L 100.0100, L500.2500, L500.4100 ####[facility] [address] [place], [address] Cholesterol in LDL [Mass/Vol] 38 mg/dL Normal [facility] Comment on above: Result Comment: Bord rdpngg=285-975 mg/dL Higher Ckzp=826 mg/dL or greaterFriedwald Equation for LDL-C Performed By: #### L 100.0100, L500.2500, L500.4100 ####[facility] [address] [place], [address] Cholesterol in VLDL [Mass/Vol] 15 mg/dL Normal 5-40 [facility] Comment on above: Performed By: #### L 100.0100, L500.2500, L500.4100 ####[facility] [address] [place], [address] Triglyceride [Mass/Vol] 76 mg/dL Normal [facility] Comment on above: Result Comment: The drugs N-Acetylcysteine and Metamizole may falselydepress this assay.Normal range: <150 mg/dLBorderline High: 150-199 mg/dLHigh: 200-499 mg/dLVery High: >500 mg/dL Performed By: #### L 100.0100, L500.2500, L500.4100 ####[facility] [address] [place], [address] MCV (mean corpuscular volume ) determinationOrdered By: Aranza Little on 10-26-2024 MCV (RBC) [Entitic vol] 91.6 fL 81-99 [facility] Mean corpuscular hemoglobin (MCH) determinationOrdered By: Aranza Little on 10-26-2024 MCH (RBC) [Entitic mass] 30.4 pg 27.0-32.0 [facility] Mean corpuscular hemoglobin concentration (MCHC) determinationOrdered By: Aranza Little on 10-26-2024 MCHC (RBC) [Mass/Vol] 33.2 g/dL 32-36 [facility] Mean platelet volume determi nationOrdered By: Aranza Little on 10-26-2024 Platelet mean volume (Bld) [Entitic vol] 9.4 fL 6.2-12.0 [facility] Monocyte percentageOrdered B y: Aranza Little on 10-26-2024 Monocytes/100 WBC (Bld) 10.3 % High 0-10 [facility] Neutrophil percentageOrdered By: Aranza Little on 10-26-2024 Neutrophils/100 WBC (Bld) 73.9 % High 47-70 [facility] Nucleated red blood cell per centageOrdered By: Aranza Little on 10-26-2024 Nucleated RBC/100 WBC (Bld) [Ratio] 0 % 0-5 [facility] Platelet countOrdered By: Pedrito Little on 10-26-2024 Platelets (Bld) [#/Vol] 170 10*3/uL 150-450 [facility] Potassium measurement (mass/ volume)Ordered By: Aranza Little on 10-26-2024 Potassium (Unsp spec) [Mass/Vol] 4.3 mmol/L 3.3-5.1 [facility] RBC Auto (Bld) [#/Vol]Ordere d By: Aranza Little on 10-26-2024 RBC (Bld) [#/Vol] 4.31 10*6/uL 4.2-5.4 [facility] Screening total cholesterol/ high density lipoprotein (HDL) cholesterol ratioOrdered By: Aranza Little on 10-26-2024 Cholesterol.total/[place] sterol in HDL [Mass ratio] 2.49 {ratio} [facility] [facility] Serum creatinine measurement (mass/volume)Ordered By: Aranza Little on 10-26-2024 Creatinine [Mass/Vol] 0.49 mg/dL Low 0.70-1.20 [facility] Serum glucose measurement (m ass/volume)Ordered By: Aranza Little on 10-26-2024 Glucose [Mass/Vol] 111 mg/dL High 70-99 [facility] Serum or plasma calcium aaron urement (mass/volume)Ordered By: Aranza Little on 10-26-2024 Calcium [Mass/Vol] 9.6 mg/dL 7.6-11.0 [facility] Serum or plasma cholesterol in HDL measurement (mass/volume)Ordered By: Aranza Little on 10-26-2024 Cholesterol in HDL [Mass/Vol] 36 mg/dL Low >40 [facility] Comment on above: National Cholesterol Education Program (NCEP) guidelines:<40 mg/dL: Low HDL-cholesterol (major risk factor for CHD)>= 60 mg/dL: High HDL-cholesterol (negative risk factor for CHD)HDL-cholesterol is affected by a number of factors, e.g. smoking, exercise, hormones, sex and age. Serum or plasma cholesterol measurement (mass/volume)Ordered By: Aranza Little on 10-26-2024 Cholesterol [Mass/Vol] 89 mg/dL <201 [facility] Comment on above: Cholesterol level, D esirable <200 mg/dLBorderline high cholesterol 200-239 mg/dLHigh cholesterol >=240 mg/dLRecommendations of the NCEP Adult Treatment Panel for the following risk-cutoff thresholds for the [place] population. Serum or plasma urea nitroge n measurement (mass/volume)Ordered By: Aranza Little on 10-26-2024 Urea nitrogen [Mass/Vol] 16 mg/dL 4-19 [facility] Sodium levelOrdered By: Funmilayo Little on 10-26-2024 Sodium [Moles/Vol] 139 mmol/L 133-145 [facility] Stress Reporton 10-26-2024 Stress Report Normal [facility] Triglycerides measurementOrd ered By: Aranza Sidney on 10-26-2024 Triglyceride [Mass/Vol] 76 mg/dL <199 [facility] Comment on above: The drugs N-Acetylcy steine and Metamizole may falsely depress this assay. Normal range: <150 mg/dLBorderline High: 150-199 mg/dLHigh: 200-499 mg/dLVery High: >500 mg/dL Urinalysis, Completeon 10-26 CAST,HYALINE 0-5 SEEN Normal 0-5 [facility] Comment on above: Order Comment: CLEAN CATCH Performed By: #### M 100.2200, L400.0001 ####[facility] [address] [place], [address] BACTERIA 2+ /hpf Normal None Seen [facility] Comment on above: Order Comment: CLEAN CATCH Performed By: #### M 100.2200, L400.0001 ####[facility] [address] [place], [address] EPI,TRANSITION 0-5 SEEN Normal 0-5 [facility] Comment on above: Order Comment: CLEAN CATCH Performed By: #### M 100.2200, L400.0001 ####[facility] [address] [place], [address] RBC 0-5 SEEN Normal 0-5 [facility] Comment on above: Order Comment: CLEAN CATCH Performed By: #### M 100.2200, L400.0001 ####[facility] [address] [place], [address] WBC 0-5 SEEN Normal 0-5 [facility] Comment on above: Order Comment: CLEAN CATCH Performed By: #### M 100.2200, L400.0001 ####[facility] [address] [place], [address] CA OX CRYSTAL 3+ /hpf Normal [facility] Comment on above: Order Comment: CLEAN CATCH Performed By: #### M 100.2200, L400.0001 ####[facility] [address] [place], [address] EPI,SQUAMOUS 25-50 SEEN Normal 5-10 [facility] Comment on above: Order Comment: CLEAN CATCH Performed By: #### M 100.2200, L400.0001 ####[facility] [address] [place], [address] Mucus Ql (Urine sed) 0 SEEN Normal [facility] Comment on above: Order Comment: CLEAN CATCH Performed By: #### M 100.2200, L400.0001 ####[facility] [address] [place], [address] White blood cell (WBC) count Ordered By: Aranza Little on 10-26-2024 WBC (Bld) [#/Vol] 6.4 10*3/uL 4.4-11.0 [facility] 12 Lead EKGon 10-25-2024 12 Lead EKG Normal [facility] Absolute lymphocyte countOrd ered By: Jaylen Jack on 10-25-2024 Lymphocytes Auto (Unsp spec) [#/Vol] 0.86 10*3/uL 0.83-4.51 [facility] Absolute neutrophil countOrd ered By: Jaylen Jack on 10-25-2024 Neutrophils (Bld) [#/Vol] 5.1 10*3/uL 2.0-7.7 [facility] Anion gap in Serum or Plasma Ordered By: Jaylen Jack on 10-25-2024 Anion gap [Moles/Vol] 10 mmol/L 5-15 [facility] Automated lymphocyte count a s percentage of total leukocytesOrdered By: Jaylen Jack on 10-25-2024 Lymphocytes/100 WBC Auto (Unsp spec) 13.1 % Low 19-41 [facility] BUN/creatinine ratioOrdered By: Jaylen Jack on 10-25-2024 Urea nitrogen/Creatinine [Mass ratio] 31.8 mg/mg High 10-20 [facility] Basophil percentageOrdered B y: Jaylen Websterrus on 10-25-2024 Basophils/100 WBC (Bld) 0.3 % 0-1 [facility] Bilirubin Test strip Ql (U)O rdered By: Aranza Little on 10-25-2024 Bilirubin Ql (U) Negative Negative [facility] Bilirubin, totalOrdered By: Jaylen Jack on 10-25-2024 Bilirubin [Mass/Vol] 0.78 mg/dL 0.00-1.30 [facility] CBC W/Diff, Automatedon 10-01 Absolute Lymph 0.86 X10 3/uL Normal 0.83-4.51 [facility] Comment on above: Performed By: #### L 100.0100, L500.4050, L501.4021 ####[facility] [address] [place], [address] Absolute Neut 5.1 X10 3/uL Normal 2.0-7.7 [facility] Comment on above: Performed By: #### L 100.0100, L500.4050, L501.4021 ####[facility] [address] [place], [address] Basophils/100 WBC (Bld) 0.3 % Normal 0-1 [facility] Comment on above: Performed By: #### L 100.0100, L500.4050, L501.4021 ####[facility] [address] [place], [address] Eosinophils/100 WBC (Bld) 1.1 % Normal 0-5 [facility] Comment on above: Performed By: #### L 100.0100, L500.4050, L501.4021 ####[facility] [address] [place], [address] Erythrocyte distribution width (RBC) [Ratio] 13.0 % Normal 11.6-14.6 [facility] Comment on above: Performed By: #### L 100.0100, L500.4050, L501.4021 ####[facility] [address] [place], [address] Hematocrit (Bld) [Volume fraction] 43.7 % Normal 37-47 [facility] Comment on above: Performed By: #### L 100.0100, L500.4050, L501.4021 ####[facility] [address] [place], [address] Hemoglobin (Bld) [Mass/Vol] 14.2 g/dL Normal 12.0-15.0 [facility] Comment on above: Performed By: #### L 100.0100, L500.4050, L501.4021 ####[facility] [address] [place], [address] IG% 0.500 Normal 0.0-0.9 [facility] Comment on above: Result Comment: IG% - Immature Granulocytes (promyelocytes, myelocytes andmetamyelocytes) > 1% indicates that a LEFT SHIFT is Present. Performed By: #### L 100.0100, L500.4050, L501.4021 ####[facility] [address] [place], [address] Lymphocytes/100 WBC (Bld) 13.1 % Low 19-41 [facility] Comment on above: Performed By: #### L 100.0100, L500.4050, L501.4021 ####[facility] [address] [place], [address] MCH (RBC) [Entitic mass] 29.6 pg Normal 27.0-32.0 [facility] Comment on above: Performed By: #### L 100.0100, L500.4050, L501.4021 ####[facility] [address] [place], [address] MCHC (RBC) [Mass/Vol] 32.5 g/dL Normal 32-36 [facility] Comment on above: Performed By: #### L 100.0100, L500.4050, L501.4021 ####[facility] [address] [place], [address] MCV (RBC) [Entitic vol] 91.2 fL Normal 81-99 [facility] Comment on above: Performed By: #### L 100.0100, L500.4050, L501.4021 ####[facility] [address] [place], [address] Monocytes/100 WBC (Bld) 7.9 % Normal 0-[address] [facility] Comment on above: Performed By: #### L 100.0100, L500.4050, L501.4021 ####[facility] [address] [place], [address] Neutrophils/100 WBC (Bld) 77.1 % High 47-70 [facility] Comment on above: Performed By: #### L 100.0100, L500.4050, L501.4021 ####[facility] [address] [place], [address] Nucleated RBC (Bld) [#/Vol] 0 10*3/uL Normal 0-5 [facility] Comment on above: Performed By: #### L 100.0100, L500.4050, L501.4021 ####[facility] [address] [place], [address] Platelet mean volume (Bld) [Entitic vol] 10.1 fL Normal 6.2-12.0 [facility] Comment on above: Performed By: #### L 100.0100, L500.4050, L501.4021 ####[facility] [address] [place], [address] Platelets (Bld) [#/Vol] 232 10*3/uL Normal 150-450 [facility] Comment on above: Performed By: #### L 100.0100, L500.4050, L501.4021 ####[facility] [address] [place], [address] RBC (Bld) [#/Vol] 4.79 10*6/uL Normal 4.2-5.4 [facility] Comment on above: Performed By: #### L 100.0100, L500.4050, L501.4021 ####[facility] [address] [place], [address] RDW SD 43.1 fl Normal 35.1-43.9 [facility] Comment on above: Performed By: #### L 100.0100, L500.4050, L501.4021 ####[facility] [address] [place], [address] WBC (Bld) [#/Vol] 6.6 10*3/uL Normal 4.4-11.0 [facility] Comment on above: Performed By: #### L 100.0100, L500.4050, L501.4021 ####[facility] [address] [place], [address] Calcium oxalate crystals det ection in urine sediment by light microscopyOrdered By: Aranza Little on 10-25-2024 Calcium oxalate crystals LM Ql (Urine sed) 3+ /hpf [facility] Carbon dioxide, total [Moles /volume] in Central venous bloodOrdered By: Jaylen Jack on 10-25-2024 CO2 [Moles/Vol] 25.4 mmol/L 21.0-32.0 [facility] Chest 1 View (Portable)on Chest 1 View (Portable) Normal [facility] Chloride assayOrdered By: Lincoln Jack on 10-25-2024 Chloride [Moles/Vol] 104 mmol/L 98-108 [facility] Comprehensive Metabolic Prof ilon 10-25-2024 Albumin [Mass/Vol] 3.4 g/dL Normal 3.4-4.8 [facility] Comment on above: Performed By: #### L 100.0100, L500.4050, L501.4021 ####[facility] [address] [place], [address] Albumin/Globulin [Mass ratio] 1.2 {ratio} Normal 0.9-2.4 [facility] Comment on above: Performed By: #### L 100.0100, L500.4050, L501.4021 ####[facility] [address] [place], [address] ALK PHOS 103 U/L Normal 35-104 [facility] Comment on above: Performed By: #### L 100.0100, L500.4050, L501.4021 ####[facility] [address] [place], [address] ALT [Catalytic activity/Vol] 14 U/L Normal <=34 [facility] Comment on above: Performed By: #### L 100.0100, L500.4050, L501.4021 ####[facility] [address] [place], [address] AST [Catalytic activity/Vol] 17 U/L Normal <=31 [facility] Comment on above: Performed By: #### L 100.0100, L500.4050, L501.4021 ####[facility] [address] [place], [address] Bilirubin [Mass/Vol] 0.78 mg/dL Normal 0.00-1.30 [facility] Comment on above: Performed By: #### L 100.0100, L500.4050, L501.4021 ####[facility] [address] [place], [address] BUN/CRE 31.8 RATIO High 10-20 [facility] Comment on above: Performed By: #### L 100.0100, L500.4050, L501.4021 ####[facility] [address] [place], [address] Calcium [Mass/Vol] 10.2 mg/dL Normal 7.6-11.0 [facility] Comment on above: Performed By: #### L 100.0100, L500.4050, L501.4021 ####[facility] [address] [place], [address] Chloride [Moles/Vol] 104 mmol/L Normal 98-108 [facility] Comment on above: Performed By: #### L 100.0100, L500.4050, L501.4021 ####[facility] [address] [place], [address] CO2 [Moles/Vol] 25.4 mmol/L Normal 21.0-32.0 [facility] Comment on above: Performed By: #### L 100.0100, L500.4050, L501.4021 ####[facility] [address] [place], [address] Creatinine [Mass/Vol] 0.52 mg/dL Low 0.70-1.20 [facility] Comment on above: Performed By: #### L 100.0100, L500.4050, L501.4021 ####[facility] [address] [place], [address] ECRCL 57.78 ml/min Normal 50-250 [facility] Comment on above: Performed By: #### L 100.0100, L500.4050, L501.4021 ####[facility] [address] [place], [address] GAP 10 Normal 5-15 [facility] Comment on above: Performed By: #### L 100.0100, L500.4050, L501.4021 ####[facility] [address] [place], [address] GFR/1.73 sq M.predicted among non-blacks MDRD (S/P/Bld) [Vol rate/Area] 94 mL/min/{1.73_m2} Normal >60 [facility] Comment on above: Result Comment: mL/m in/1.73m2 CKD-EPI Creatinine Equation (2020) Performed By: #### L 100.0100, L500.4050, L501.4021 ####[facility] [address] [place], [address] Globulin (S) [Mass/Vol] 2.7 g/dL Normal 2.2-4.[address] [facility] Comment on above: Performed By: #### L 100.0100, L500.4050, L501.4021 ####[facility] [address] [place], [address] Glucose [Mass/Vol] 141 mg/dL High 70-99 [facility] Comment on above: Performed By: #### L 100.0100, L500.4050, L501.4021 ####[facility] [address] [place], [address] Potassium [Moles/Vol] 4.2 mmol/L Normal 3.3-5.1 [facility] Comment on above: Performed By: #### L 100.0100, L500.4050, L501.4021 ####[facility] [address] [place], [address] Sodium [Moles/Vol] 139 mmol/L Normal 133-145 [facility] Comment on above: Performed By: #### L 100.0100, L500.4050, L501.4021 ####[facility] [address] [place], [address] T PROT 6.0 g/dL Normal 5.9-8.4 [facility] Comment on above: Performed By: #### L 100.0100, L500.4050, L501.4021 ####[facility] [address] [place], [address] Urea nitrogen [Mass/Vol] 16 mg/dL Normal 4-19 [facility] Comment on above: Performed By: #### L 100.0100, L500.4050, L501.4021 ####[facility] [address] [place], [address] Echo Completeon 10-25-2024 Echo Complete Normal [facility] Emergency Department Summary on 10-25-2024 Emergency Department Summary Normal [facility] Eosinophil percentageOrdered By: Jaylen Jack on 10-25-2024 Eosinophils/100 WBC (Bld) 1.1 % 0-5 [facility] Erythrocyte distribution wid th ratioOrdered By: Jaylen Jack on 10-25-2024 Erythrocyte distribution width (RBC) [Ratio] 13.0 % 11.6-14.6 [facility] Erythrocyte distribution wid th standard deviationOrdered By: Jaylen Jack on 10-25-2024 Erythrocyte distribution width (RBC) [Ratio] 43.1 fl 35.1-43.9 [facility] Glomerular filtration rate ( GFR) estimation/1.73 sq m using serum, plasma, or whole bOrdered By: Jaylen Jack on 10-25-2024 GFR/1.73 sq M.predicted among non-blacks MDRD (S/P/Bld) [Vol rate/Area] 94 mL/min/{1.73_m2} >60 [facility] Comment on above: mL/min/1.73m2 CKD-EP I Creatinine Equation (2020) H AND P Exam - Hospitaliston 10-25-2024 H&P Exam - Hospitalist Normal [facility] Hematocrit Auto (Bld) [Volum e fraction]Ordered By: Jaylen Jack on 10-25-2024 Hematocrit (Bld) [Volume fraction] 43.7 % 37-47 [facility] Hemoglobin measurementOrdere d By: Jaylen Jack on 10-25-2024 Hemoglobin (Bld) [Mass/Vol] 14.2 g/dL 12.0-15.0 [facility] Hyaline casts LM.LPF (Urine sed) [#/Area]Ordered By: Aranza Little on 10-25-2024 Hyaline casts (Urine sed) [#/Area] 0 /[LPF] 0-5 [facility] Immature granulocytes/100 WB C Auto (Bld)Ordered By: Jaylen Jack on 10-25-2024 Immature granulocytes/100 WBC (Bld) 0.500 % 0.0-0.9 [facility] Comment on above: IG% - Immature Granu locytes (promyelocytes, myelocytes and metamyelocytes) > 1% indicates that a LEFT SHIFT is Present. Ketones Test strip Ql (U)Ord ered By: Aranza Little on 10-25-2024 Ketones Ql (U) Negative Negative [facility] L501.4021on 10-25-2024 Trop T High Sen 21 ng/L High <=14 [facility] Comment on above: Performed By: #### L 100.0100, L500.4050, L501.4021 ####[facility] [address] [place], [place], [address] Laboratory - Chemistry and C hemistry - challengeOrdered By: Jaylen Jack on 10-25-2024 AST [Catalytic activity/Vol] 17 U/L <32 [facility] MCV (mean corpuscular volume ) determinationOrdered By: Jaylen Jack on 10-25-2024 MCV (RBC) [Entitic vol] 91.2 fL 81-99 [facility] Mean corpuscular hemoglobin (MCH) determinationOrdered By: Jaylen Jack on 10-25-2024 MCH (RBC) [Entitic mass] 29.6 pg 27.0-32.0 [facility] Mean corpuscular hemoglobin concentration (MCHC) determinationOrdered By: Jaylen Jack on 10-25-2024 MCHC (RBC) [Mass/Vol] 32.5 g/dL 32-36 [facility] Mean platelet volume determi nationOrdered By: Jaylen Jack on 10-25-2024 Platelet mean volume (Bld) [Entitic vol] 10.1 fL 6.2-12.0 [facility] Microscopic analysis of urin e for red blood cells (RBC)Ordered By: Aranza Little on 10-25-2024 Microscopic analysis of urine for red blood cells (RBC) 0-5 SEEN /hpf 0-5 [facility] Monocyte percentageOrdered B y: Jaylen Jack on 10-25-2024 Monocytes/100 WBC (Bld) 7.9 % 0-10 [facility] Mucus LM Ql (Urine sed)Order ed By: Aranza Little on 10-25-2024 Mucus Ql (Urine sed) 0 SEEN /hpf [facility] Neutrophil percentageOrdered By: Jaylen Jack on 10-25-2024 Neutrophils/100 WBC (Bld) 77.1 % High 47-70 [facility] Nitrite Test strip Ql (U)Ord ered By: Aranza Little on 10-25-2024 Nitrite Ql (U) Negative Negative [facility] No Panel InformationOrdered By: Jaylen Jack on 10-25-2024 17 U/L <32 [facility] Nucleated red blood cell per centageOrdered By: Jaylen Jack on 10-25-2024 Nucleated RBC/100 WBC (Bld) [Ratio] 0 % 0-5 [facility] Platelet countOrdered By: Lincoln Jack on 10-25-2024 Platelets (Bld) [#/Vol] 232 10*3/uL 150-450 [facility] Potassium measurement (mass/ volume)Ordered By: Jaylen Jack on 10-25-2024 Potassium (Unsp spec) [Mass/Vol] 4.2 mmol/L 3.3-5.1 [facility] Protein Test strip Ql (U)Ord ered By: Aranza Little on 10-25-2024 Protein Ql (U) 30 mg/dl High Negative [facility] RBC Auto (Bld) [#/Vol]Ordere d By: Jaylen Jack on 10-25-2024 RBC (Bld) [#/Vol] 4.79 10*6/uL 4.2-5.4 [facility] Serum creatinine measurement (mass/volume)Ordered By: Jaylen Jack on 10-25-2024 Creatinine [Mass/Vol] 0.52 mg/dL Low 0.70-1.20 [facility] Serum globulin measurementOr dered By: Jaylen Jack on 10-25-2024 Globulin (S) [Mass/Vol] 2.7 g/dL 2.2-4.2 [facility] Serum glucose measurement (m ass/volume)Ordered By: Jaylen Jack on 10-25-2024 Glucose [Mass/Vol] 141 mg/dL High 70-99 [facility] Serum or plasma alanine rajput otransferase (ALT) measurementOrdered By: Jaylen Jack on 10-25-2024 ALT [Catalytic activity/Vol] 14 U/L <35 [facility] Serum or plasma albumin aaron urement (mass/volume)Ordered By: Jaylen Jack on 10-25-2024 Albumin [Mass/Vol] 3.4 g/dL 3.4-4.8 [facility] Serum or plasma albumin/glob ulin mass ratioOrdered By: Jaylen Jack on 10-25-2024 Albumin/Globulin [Mass ratio] 1.2 {ratio} 0.9-2.4 [facility] Serum or plasma alkaline bernardo sphatase measurementOrdered By: Jaylen Jack on 10-25-2024 ALP [Catalytic activity/Vol] 103 U/L 35-104 [facility] Serum or plasma calcium aaron urement (mass/volume)Ordered By: Jaylen Jack on 10-25-2024 Calcium [Mass/Vol] 10.2 mg/dL 7.6-11.0 [facility] Serum or plasma urea nitroge n measurement (mass/volume)Ordered By: Jaylen Jack on 10-25-2024 Urea nitrogen [Mass/Vol] 16 mg/dL 4-19 [facility] Sodium levelOrdered By: Ramos Jack on 10-25-2024 Sodium [Moles/Vol] 139 mmol/L 133-145 [facility] Squamous epithelial cells de tection in urine sediment by light microscopyOrdered By: Aranza Little on 10-25-2024 Epithelial cells.squamous LM Ql (Urine sed) 25-50 SEEN /hpf 5-10 [facility] Total proteinOrdered By: Olesya Jack on 10-25-2024 Protein [Mass/Vol] 6.0 g/dL 5.9-8.4 [facility] Transitional cells detection in urine sediment by light microscopyOrdered By: Aranza Little on 10-25-2024 Transitional cells LM Ql (Urine sed) 0-5 SEEN /hpf 0-5 [facility] Troponin T HS 2 HRon 025 Trop T High Sen 15 ng/L High <=14 [facility] Comment on above: Result Comment: Hemo lysis present, Results??could be affected.?? Performed By: #### L 499.0042 ####[facility] [address] [place], [place], [address] Troponin T HS 4 HRon 025 Trop T High Sen 18 ng/L High <=14 [facility] Comment on above: Performed By: #### L 499.0043 ####[facility] [address] [place], [place], [id number] Troponin T.cardiac [Mass/vol ume] in Serum or Plasma by High sensitivity methodOrdered By: Jaylen Jack on 10-25-2024 Troponin T.cardiac High sensitivity method [Mass/Vol] 18 ng/L High <14 [facility] Troponin T.cardiac High sensitivity method [Mass/Vol] 15 ng/L High <14 [facility] Comment on above: Hemolysis present, R esults could be affected. Troponin T.cardiac High sensitivity method [Mass/Vol] 21 ng/L High <14 [facility] Urine clarityOrdered By: Enedelia Little on 10-25-2024 Clarity (U) Sl. 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 Abnormal [facility] Bacteria identified Cx Nom (U) Positive Abnormal [facility] Urine glucose detectionOrder ed By: Aranza Little on 10-25-2024 Glucose Ql (U) Normal mg/dl Normal [facility] Urine leukocyte esterase det ection by dipstickOrdered By: Aranza Little on 10-25-2024 Leukocyte esterase Test strip Ql (U) Negative Negative [facility] Urine pHOrdered By: Aranza houston on 10-25-2024 pH (U) 5.0 [pH] 5.0 - 8.0 [facility] Urine sediment bacteria coun t by microscopy (number/high power field)Ordered By: Aranza Little on 10-25-2024 Bacteria LM.HPF (Urine sed) [#/Area] 2 /[HPF] None Seen [facility] Urine specific gravity measu rementOrdered By: Aranza Little on 10-25-2024 Specific gravity (U) [Rel density] 1.025 1.002-1.030 [facility] Urine urobilinogen measureme ntOrdered By: Aranza Little on 10-25-2024 Urobilinogen Ql (U) Normal mg/dl Normal [facility] White blood cell (WBC) count Ordered By: Jaylen Jack on 10-25-2024 WBC (Bld) [#/Vol] 6.6 10*3/uL 4.4-11.0 [facility] White blood cell countOrdere d By: Aranza Little on 10-25-2024 White blood cell count 0-5 SEEN /hpf 0-5 [facility] 12 Lead EKGon 10-21-2024 12 Lead EKG Normal [facility] Absolute lymphocyte countOrd ered By: Donovan Pierson on 10-21-2024 Lymphocytes Auto (Unsp spec) [#/Vol] 0.94 10*3/uL 0.83-4.51 [facility] Absolute neutrophil countOrd ered By: Donovan Pierson on 10-21-2024 Neutrophils (Bld) [#/Vol] 5.0 10*3/uL 2.0-7.7 [facility] Anion gap in Serum or Plasma Ordered By: Donovan Pierson on 10-21-2024 Anion gap [Moles/Vol] 9 mmol/L 5-15 [facility] Automated lymphocyte count a s percentage of total leukocytesOrdered By: Donovan Pierson on 10-21-2024 Lymphocytes/100 WBC Auto (Unsp spec) 14.0 % Low 19-41 [facility] BUN/creatinine ratioOrdered By: Donovan Pierson on 10-21-2024 Urea nitrogen/Creatinine [Mass ratio] 34.9 mg/mg High - [facility] Basic Metabolic Profile (BMP )on 10-21-2024 BUN/CRE 34.9 RATIO High 12-19 [facility] Comment on above: Performed By: #### L 501.4021, L100.0100, L500.2500 ####[facility] [address] [place], [address] Calcium [Mass/Vol] 10.1 mg/dL Normal 7.6-11.0 [facility] Comment on above: Performed By: #### L 501.4021, L100.0100, L500.2500 ####[facility] [address] [place], [address] Chloride [Moles/Vol] 103 mmol/L Normal 98-108 [facility] Comment on above: Performed By: #### L 501.4021, L100.0100, L500.2500 ####[facility] [address] [place], [address] CO2 [Moles/Vol] 27.1 mmol/L Normal 21.0-32.0 [facility] Comment on above: Performed By: #### L 501.4021, L100.0100, L500.2500 ####[facility] [address] [place], [address] Creatinine [Mass/Vol] 0.44 mg/dL Low 0.70-1.20 [facility] Comment on above: Performed By: #### L 501.4021, L100.0100, L500.2500 ####[facility] [address] [place], [address] ECRCL 58.95 ml/min Normal 50-250 [facility] Comment on above: Performed By: #### L 501.4021, L100.0100, L500.2500 ####[facility] [address] [place], [address] GAP 9 Normal 5-15 [facility] Comment on above: Performed By: #### L 501.4021, L100.0100, L500.2500 ####[facility] [address] [place], [address] GFR/1.73 sq M.predicted among non-blacks MDRD (S/P/Bld) [Vol rate/Area] 98 mL/min/{1.73_m2} Normal >60 [facility] Comment on above: Result Comment: mL/m in/1.73m2 CKD-EPI Creatinine Equation (2020) Performed By: #### L 501.4021, L100.0100, L500.2500 ####[facility] [address] [place], [address] Glucose [Mass/Vol] 114 mg/dL High 70-99 [facility] Comment on above: Performed By: #### L 501.4021, L100.0100, L500.2500 ####[facility] [address] [place], [address] Potassium [Moles/Vol] 4.2 mmol/L Normal 3.3-5.1 [facility] Comment on above: Performed By: #### L 501.4021, L100.0100, L500.2500 ####[facility] [address] [place], [address] Sodium [Moles/Vol] 139 mmol/L Normal 133-145 [facility] Comment on above: Performed By: #### L 501.4021, L100.0100, L500.2500 ####[facility] [address] [place], [address] Urea nitrogen [Mass/Vol] 15 mg/dL Normal 4-19 [facility] Comment on above: Performed By: #### L 501.4021, L100.0100, L500.2500 ####[facility] [address] [place], [address] Basophil percentageOrdered B y: Donovan Pierson on 10-21-2024 Basophils/100 WBC (Bld) 0.4 % 0-1 [facility] CBC W/Diff, Automatedon 10-01 Absolute Lymph 0.94 X10 3/uL Normal 0.83-4.51 [facility] Comment on above: Performed By: #### L 501.4021, L100.0100, L500.2500 ####[facility] [address] [place], [address] Absolute Neut 5.0 X10 3/uL Normal 2.0-7.7 [facility] Comment on above: Performed By: #### L 501.4021, L100.0100, L500.2500 ####[facility] [address] [place], [address] Basophils/100 WBC (Bld) 0.4 % Normal 0-1 [facility] Comment on above: Performed By: #### L 501.4021, L100.0100, L500.2500 ####[facility] [address] [place], [address] Eosinophils/100 WBC (Bld) 1.2 % Normal 0-5 [facility] Comment on above: Performed By: #### L 501.4021, L100.0100, L500.2500 ####[facility] [address] [place], [address] Erythrocyte distribution width (RBC) [Ratio] 12.7 % Normal 11.6-14.6 [facility] Comment on above: Performed By: #### L 501.4021, L100.0100, L500.2500 ####[facility] [address] [place], [address] Hematocrit (Bld) [Volume fraction] 44.8 % Normal 37-47 [facility] Comment on above: Performed By: #### L 501.4021, L100.0100, L500.2500 ####[facility] [address] [place], [address] Hemoglobin (Bld) [Mass/Vol] 14.6 g/dL Normal 12.0-15.0 [facility] Comment on above: Performed By: #### L 501.4021, L100.0100, L500.2500 ####[facility] [address] [place], [address] IG% 0.300 Normal 0.0-0.9 [facility] Comment on above: Result Comment: IG% - Immature Granulocytes (promyelocytes, myelocytes andmetamyelocytes) > 1% indicates that a LEFT SHIFT is Present. Performed By: #### L 501.4021, L100.0100, L500.2500 ####[facility] [address] [place], [address] Lymphocytes/100 WBC (Bld) 14.0 % Low 19-41 [facility] Comment on above: Performed By: #### L 501.4021, L100.0100, L500.2500 ####[facility] [address] [place], [address] MCH (RBC) [Entitic mass] 29.6 pg Normal 27.0-32.0 [facility] Comment on above: Performed By: #### L 501.4021, L100.0100, L500.2500 ####[facility] [address] [place], [address] MCHC (RBC) [Mass/Vol] 32.6 g/dL Normal 32-36 [facility] Comment on above: Performed By: #### L 501.4021, L100.0100, L500.2500 ####[facility] [address] [place], [address] MCV (RBC) [Entitic vol] 90.9 fL Normal 81-99 [facility] Comment on above: Performed By: #### L 501.4021, L100.0100, L500.2500 ####[facility] [address] [place], [address] Monocytes/100 WBC (Bld) 9.1 % Normal 0-[address] [facility] Comment on above: Performed By: #### L 501.4021, L100.0100, L500.2500 ####[facility] [address] [place], [address] Neutrophils/100 WBC (Bld) 75.0 % High 47-70 [facility] Comment on above: Performed By: #### L 501.4021, L100.0100, L500.2500 ####[facility] [address] [place], [address] Nucleated RBC (Bld) [#/Vol] 0 10*3/uL Normal 0-5 [facility] Comment on above: Performed By: #### L 501.4021, L100.0100, L500.2500 ####[facility] [address] [place], [address] Platelet mean volume (Bld) [Entitic vol] 9.6 fL Normal 6.2-12.0 [facility] Comment on above: Performed By: #### L 501.4021, L100.0100, L500.2500 ####[facility] [address] [place], [address] Platelets (Bld) [#/Vol] 208 10*3/uL Normal 150-450 [facility] Comment on above: Performed By: #### L 501.4021, L100.0100, L500.2500 ####[facility] [address] [place], [address] RBC (Bld) [#/Vol] 4.93 10*6/uL Normal 4.2-5.4 [facility] Comment on above: Performed By: #### L 501.4021, L100.0100, L500.2500 ####[facility] [address] [place], [address] RDW SD 42.5 fl Normal 35.1-43.9 [facility] Comment on above: Performed By: #### L 501.4021, L100.0100, L500.2500 ####[facility] [address] [place], [address] WBC (Bld) [#/Vol] 6.7 10*3/uL Normal 4.4-11.0 [facility] Comment on above: Performed By: #### L 501.4021, L100.0100, L500.2500 ####[facility] [address] [place], [address] Carbon dioxide, total [Moles /volume] in Central venous bloodOrdered By: Donovan Pierson on 10-21-2024 CO2 [Moles/Vol] 27.1 mmol/L 21.0-32.0 [facility] Chest 1 View (Portable)on Chest 1 View (Portable) Normal [facility] Chloride assayOrdered By: Joe Pierson on 10-21-2024 Chloride [Moles/Vol] 103 mmol/L 98-108 [facility] Emergency Department Summary on 10-21-2024 Emergency Department Summary Normal [facility] Eosinophil percentageOrdered By: Donovan Pierson on 10-21-2024 Eosinophils/100 WBC (Bld) 1.2 % 0-5 [facility] Erythrocyte distribution wid th ratioOrdered By: Donovan Pierson on 10-21-2024 Erythrocyte distribution width (RBC) [Ratio] 12.7 % 11.6-14.6 [facility] Erythrocyte distribution wid th standard deviationOrdered By: Donovan Pierson on 10-21-2024 Erythrocyte distribution width (RBC) [Ratio] 42.5 fl 35.1-43.9 [facility] Glomerular filtration rate ( GFR) estimation/1.73 sq m using serum, plasma, or whole bOrdered By: Donovan Pierson on 10-21-2024 GFR/1.73 sq M.predicted among non-blacks MDRD (S/P/Bld) [Vol rate/Area] 98 mL/min/{1.73_m2} >60 [facility] Comment on above: mL/min/1.73m2 CKD-EP I Creatinine Equation (2020) Hematocrit Auto (Bld) [Volum e fraction]Ordered By: Donovan Pierson on 10-21-2024 Hematocrit (Bld) [Volume fraction] 44.8 % 37-47 [facility] Hemoglobin measurementOrdere d By: Donovan Pierson on 10-21-2024 Hemoglobin (Bld) [Mass/Vol] 14.6 g/dL 12.0-15.0 [facility] Immature granulocytes/100 WB C Auto (Bld)Ordered By: Donovan Pierson on 10-21-2024 Immature granulocytes/100 WBC (Bld) 0.300 % 0.0-0.9 [facility] Comment on above: IG% - Immature Granu locytes (promyelocytes, myelocytes and metamyelocytes) > 1% indicates that a LEFT SHIFT is Present. L501.4021on 10-21-2024 Trop T High Sen 20 ng/L High <=14 [facility] Comment on above: Performed By: #### L 501.4021, L100.0100, L500.2500 ####[facility] [address] [place], [place], [id number] MCV (mean corpuscular volume ) determinationOrdered By: Donovan Pierson on 10-21-2024 MCV (RBC) [Entitic vol] 90.9 fL 81-99 [facility] Mean corpuscular hemoglobin (MCH) determinationOrdered By: Donovan Pierson on 10-21-2024 MCH (RBC) [Entitic mass] 29.6 pg 27.0-32.0 [facility] Mean corpuscular hemoglobin concentration (MCHC) determinationOrdered By: Donovan Pierson on 10-21-2024 MCHC (RBC) [Mass/Vol] 32.6 g/dL 32-36 [facility] Mean platelet volume determi nationOrdered By: Donovan Pierson on 10-21-2024 Platelet mean volume (Bld) [Entitic vol] 9.6 fL 6.2-12.0 [facility] Monocyte percentageOrdered B y: Donovan Pierson on 10-21-2024 Monocytes/100 WBC (Bld) 9.1 % 0-10 [facility] Neutrophil percentageOrdered By: Donovan Pierson on 10-21-2024 Neutrophils/100 WBC (Bld) 75.0 % High 47-70 [facility] Nucleated red blood cell per centageOrdered By: Donovan Pierson on 10-21-2024 Nucleated RBC/100 WBC (Bld) [Ratio] 0 % 0-5 [facility] Platelet countOrdered By: Joe Pierson on 10-21-2024 Platelets (Bld) [#/Vol] 208 10*3/uL 150-450 [facility] Potassium measurement (mass/ volume)Ordered By: Donovan Pierson on 10-21-2024 Potassium (Unsp spec) [Mass/Vol] 4.2 mmol/L 3.3-5.1 [facility] RBC Auto (Bld) [#/Vol]Ordere d By: Donovan Pierson on 10-21-2024 RBC (Bld) [#/Vol] 4.93 10*6/uL 4.2-5.4 [facility] Serum creatinine measurement (mass/volume)Ordered By: Donovan Pierson on 10-21-2024 Creatinine [Mass/Vol] 0.44 mg/dL Low 0.70-1.20 [facility] Serum glucose measurement (m ass/volume)Ordered By: Donovan Pierson on 10-21-2024 Glucose [Mass/Vol] 114 mg/dL High 70-99 [facility] Serum or plasma calcium aaron urement (mass/volume)Ordered By: Donovan Pierson on 10-21-2024 Calcium [Mass/Vol] 10.1 mg/dL 7.6-11.0 [facility] Serum or plasma urea nitroge n measurement (mass/volume)Ordered By: Donovan Pierson on 10-21-2024 Urea nitrogen [Mass/Vol] 15 mg/dL 4-19 [place] [facility] Sodium levelOrdered By: Donovan Pierson on 10-21-2024 Sodium [Moles/Vol] 139 mmol/L 133-145 [facility] Troponin T HS 2 HRon 025 Trop T High Sen 19 ng/L High <=14 [facility] Comment on above: Performed By: #### L 499.0042 ####[facility] [address] [place], [place], [address] Troponin T HS 4 HRon 025 Trop T High Sen Normal <=14 [facility] Comment on above: Result Comment: JORGE ENT DISCHARGED Performed By: #### L 499.0043 ####[facility] [address] [place], [place], [id number] Troponin T.cardiac [Mass/vol ume] in Serum or Plasma by High sensitivity methodOrdered By: Donovan Pierson on 10-21-2024 Troponin T.cardiac High sensitivity method [Mass/Vol] 19 ng/L High <14 [facility] Troponin T.cardiac High sensitivity method [Mass/Vol] 20 ng/L High <14 [facility] Comment on above: Delta: 14 on White blood cell (WBC) count Ordered By: Donovan Pierosn on 10-21-2024 WBC (Bld) [#/Vol] 6.7 10*3/uL 4.4-11.0 [facility] Bilirubin directOrdered By: Ginger Grace on 10-01-2024 Bilirubin.direct [Mass/Vol] 0.31 mg/dL High 0.00-0.30 [facility] Comment on above: Hemolysis present, R esults could be affected. Bilirubin, totalOrdered By: Ginger Grace on 10-01-2024 Bilirubin [Mass/Vol] 0.76 mg/dL 0.00-1.30 [facility] Calculated very low density lipoprotein (VLDL) cholesterol measurementOrdered By: Ginger Grace on 10-01-2024 Calculated very low density lipoprotein (VLDL) cholesterol measurement 22 mg/dL 5-40 [facility] LDL calc ser/plasOrdered By: Ginger Grace on 10-01-2024 Cholesterol in LDL [Mass/Vol] 41 mg/dL [facility] Comment on above: Kyfecwysnh=547-660 m g/dL & Higher Lofz=041 mg/dL or greaterFriedwald Equation for LDL-C Laboratory - Chemistry and C hemistry - challengeOrdered By: Ginger Grace on 10-01-2024 AST [Catalytic activity/Vol] 21 U/L <32 [facility] Comment on above: Hemolysis present, R esults could be affected. Lipid Profileon 10-01-2024 CHOL:HDL 2.46 Normal [facility] Comment on above: Performed By: #### L 500.4100, L500.3400 ####[facility] [address] [place], [address] Cholesterol [Mass/Vol] 106 mg/dL Normal <=200 [facility] Comment on above: Result Comment: Chol esterol level, Desirable <200 mg/dLBorderline high cholesterol 200-239 mg/dLHigh cholesterol >=240 mg/dLRecommendations of the NCEP Adult Treatment Panel for thefollowing risk-cutoff thresholds for the [place] Americanpulation. Performed By: #### L 500.4100, L500.3400 ####[facility] [address] [place], [address] Cholesterol in HDL [Mass/Vol] 43 mg/dL Normal [facility] Comment on above: Result Comment: Taty onal Cholesterol Education Program (NCEP) guidelines:<40 mg/dL: Low HDL-cholesterol (major risk factor for CHD)>= 60 mg/dL: High HDL-cholesterol (negative risk factor forCHD)HDL-cholesterol is affected by a number of factors, e.g.smoking, exercise, hormones, sex and age. Performed By: #### L 500.4100, L500.3400 ####[facility] [address] [place], [address] Cholesterol in LDL [Mass/Vol] 41 mg/dL Normal [facility] Comment on above: Result Comment: Bord xoycmm=383-108 mg/dL Higher Iutd=751 mg/dL or greaterFriedwald Equation for LDL-C Performed By: #### L 500.4100, L500.3400 ####[facility] [address] [place], [address] Cholesterol in VLDL [Mass/Vol] 22 mg/dL Normal 5-40 [facility] Comment on above: Performed By: #### L 500.4100, L500.3400 ####[facility] [address] [place], [address] Triglyceride [Mass/Vol] 108 mg/dL Normal [facility] Comment on above: Result Comment: The drugs N-Acetylcysteine and Metamizole may falselydepress this assay.Normal range: <150 mg/dLBorderline High: 150-199 mg/dLHigh: 200-499 mg/dLVery High: >500 mg/dL Performed By: #### L 500.4100, L500.3400 ####[facility] [address] [place], [address] Liver Profileon 10-01-2024 Albumin [Mass/Vol] 3.4 g/dL Normal 3.4-4.8 [facility] Comment on above: Performed By: #### L 500.4100, L500.3400 ####[facility] [address] [place], [address] ALK PHOS 101 U/L Normal 35-104 [facility] Comment on above: Performed By: #### L 500.4100, L500.3400 ####[facility] [address] [place], [address] ALT [Catalytic activity/Vol] 18 U/L Normal <=34 [facility] Comment on above: Performed By: #### L 500.4100, L500.3400 ####[facility] [address] [place], [address] AST [Catalytic activity/Vol] 21 U/L Normal <=31 [facility] Comment on above: Result Comment: Hemo lysis present, Results??could be affected.?? Performed By: #### L 500.4100, L500.3400 ####[facility] [address] [place], [address] Bilirubin [Mass/Vol] 0.76 mg/dL Normal 0.00-1.30 [facility] Comment on above: Performed By: #### L 500.4100, L500.3400 ####[facility] [address] [place], [address] Bilirubin.direct [Mass/Vol] 0.31 mg/dL High 0.00-0.30 [facility] Comment on above: Result Comment: Hemo lysis present, Results??could be affected.?? Performed By: #### L 500.4100, L500.3400 ####[facility] [address] [place], [address] Globulin (S) [Mass/Vol] 2.8 g/dL Normal 2.2-4.[address] [facility] Comment on above: Performed By: #### L 500.4100, L500.3400 ####[facility] [address] [place], [address] T PROT 6.2 g/dL Normal 5.9-8.4 [facility] Comment on above: Performed By: #### L 500.4100, L500.3400 ####[facility] [address] [place], [address] No Panel InformationOrdered By: Ginger Grace on 10-01-2024 21 U/L <32 [facility] Screening total cholesterol/ high density lipoprotein (HDL) cholesterol ratioOrdered By: Ginger Grace on 10-01-2024 Cholesterol.total/[place] sterol in HDL [Mass ratio] 2.46 {ratio} [facility] Serum globulin measurementOr dered By: Ginger Grace on 10-01-2024 Globulin (S) [Mass/Vol] 2.8 g/dL 2.2-4.2 [facility] Serum or plasma alanine rajput otransferase (ALT) measurementOrdered By: Ginger Grace on 10-01-2024 ALT [Catalytic activity/Vol] 18 U/L <35 [facility] Serum or plasma albumin aaron urement (mass/volume)Ordered By: Ginger Grace on 10-01-2024 Albumin [Mass/Vol] 3.4 g/dL 3.4-4.8 [facility] Serum or plasma alkaline bernardo sphatase measurementOrdered By: Ginger Grace on 10-01-2024 ALP [Catalytic activity/Vol] 101 U/L 35-104 [facility] Serum or plasma cholesterol in HDL measurement (mass/volume)Ordered By: Ginger Grace on 10-01-2024 Cholesterol in HDL [Mass/Vol] 43 mg/dL >40 [facility] Comment on above: National Cholesterol Education Program (NCEP) guidelines:<40 mg/dL: Low HDL-cholesterol (major risk factor for CHD)>= 60 mg/dL: High HDL-cholesterol (negative risk factor for CHD)HDL-cholesterol is affected by a number of factors, e.g. smoking, exercise, hormones, sex and age. Serum or plasma cholesterol measurement (mass/volume)Ordered By: Ginger Grace on 10-01-2024 Cholesterol [Mass/Vol] 106 mg/dL <201 [facility] Comment on above: Cholesterol level, D esirable <200 mg/dLBorderline high cholesterol 200-239 mg/dLHigh cholesterol >=240 mg/dLRecommendations of the NCEP Adult Treatment Panel for the following risk-cutoff thresholds for the [place] population. TSH DL <= 0.005 mIU/L QnOrde red By: Kale Ansari on 10-01-2024 TSH Qn 0.011 uIU/mL Low 0.300-4.200 [facility] Thyroid Stim Hormone (TSH)on 10-01-2024 TSH 0.011 uIU/mL Low 0.300-4.200 [facility] Comment on above: Performed By: #### L 501.9520 ####[facility] [address] [place], [place], [address] Total proteinOrdered By: Laron Grace on 10-01-2024 Protein [Mass/Vol] 6.2 g/dL 5.9-8.4 [facility] Triglycerides measurementOrd ered By: Ginger Grace on 10-01-2024 Triglyceride [Mass/Vol] 108 mg/dL <199 [facility] Comment on above: The drugs N-Acetylcy steine and Metamizole may falsely depress this assay. Normal range: <150 mg/dLBorderline High: 150-199 mg/dLHigh: 200-499 mg/dLVery High: >500 mg/dL L499.0043on 09-10-2024 Trop T High Sen Normal <=14 [facility] Comment on above: Result Comment: Canc elled via OM: Order cancelled - Patient discharged Performed By: #### L 499.0043 ####[facility] [address] [place], [place], [address] Absolute lymphocyte countOrd ered By: Donovan Pierson on 09-09-2024 Lymphocytes Auto (Unsp spec) [#/Vol] 1.11 10*3/uL 0.83-4.51 [facility] Absolute neutrophil countOrd ered By: Donovan Pierson on 09-09-2024 Neutrophils (Bld) [#/Vol] 4.6 10*3/uL 2.0-7.7 [facility] Anion gap in Serum or Plasma Ordered By: Donovan Pierson on 09-09-2024 Anion gap [Moles/Vol] 8 mmol/L 5-15 [facility] Automated lymphocyte count a s percentage of total leukocytesOrdered By: Donovan Pierson on 09-09-2024 Lymphocytes/100 WBC Auto (Unsp spec) 17.2 % Low 19-41 [facility] BUN/creatinine ratioOrdered By: Donovan Pierson on 09-09-2024 Urea nitrogen/Creatinine [Mass ratio] 34.2 mg/mg High 10-20 [facility] Basic Metabolic Profile (BMP )on 09-09-2024 BUN/CRE 34.2 RATIO High 12-19 [facility] Comment on above: Performed By: #### L 503.7505, L500.2500 ####[facility] [address] [place], [address] Calcium [Mass/Vol] 10.4 mg/dL Normal 7.6-11.0 [facility] Comment on above: Performed By: #### L 503.7505, L500.2500 ####[facility] [address] [place], [address] Chloride [Moles/Vol] 103 mmol/L Normal 98-108 [facility] Comment on above: Performed By: #### L 503.7505, L500.2500 ####[facility] [address] [place], [address] CO2 [Moles/Vol] 27.5 mmol/L Normal 21.0-32.0 [facility] Comment on above: Performed By: #### L 503.7505, L500.2500 ####[facility] [address] [place], [address] Creatinine [Mass/Vol] 0.55 mg/dL Low 0.70-1.20 [facility] Comment on above: Performed By: #### L 503.7505, L500.2500 ####[facility] [address] [place], [address] ECRCL 58.92 ml/min Normal 50-250 [facility] Comment on above: Performed By: #### L 503.7505, L500.2500 ####[facility] [address] [place], [address] GAP 8 Normal 5-15 [facility] Comment on above: Performed By: #### L 503.7505, L500.2500 ####[facility] [address] [place], [address] GFR/1.73 sq M.predicted among non-blacks MDRD (S/P/Bld) [Vol rate/Area] 92 mL/min/{1.73_m2} Normal >60 [facility] Comment on above: Result Comment: mL/m in/1.73m2 CKD-EPI Creatinine Equation (2020) Performed By: #### L 503.7505, L500.2500 ####[facility] [address] [place], [address] Glucose [Mass/Vol] 120 mg/dL High 70-99 [facility] Comment on above: Performed By: #### L 503.7505, L500.2500 ####[facility] [address] [place], [address] Potassium [Moles/Vol] 4.6 mmol/L Normal 3.3-5.1 [facility] Comment on above: Performed By: #### L 503.7505, L500.2500 ####[facility] [address] [place], [address] Sodium [Moles/Vol] 139 mmol/L Normal 133-145 [facility] Comment on above: Performed By: #### L 503.7505, L500.2500 ####[facility] [address] [place], [address] Urea nitrogen [Mass/Vol] 19 mg/dL Normal 4-19 [facility] Comment on above: Performed By: #### L 503.7505, L500.2500 ####[facility] [address] [place], [address] Basophil percentageOrdered B y: Donovan Pierson on 09-09-2024 Basophils/100 WBC (Bld) 0.5 % 0-1 [facility] CBC W/Diff, Automatedon 08-30 Absolute Lymph 1.11 X10 3/uL Normal 0.83-4.51 [facility] Comment on above: Performed By: #### L 100.0100, L501.4021 ####[facility] [address] [place], [address] Absolute Neut 4.6 X10 3/uL Normal 2.0-7.7 [facility] Comment on above: Performed By: #### L 100.0100, L501.4021 ####[facility] [address] [place], [address] Basophils/100 WBC (Bld) 0.5 % Normal 0-1 [facility] Comment on above: Performed By: #### L 100.0100, L501.4021 ####[facility] [address] [place], [address] Eosinophils/100 WBC (Bld) 1.2 % Normal 0-5 [facility] Comment on above: Performed By: #### L 100.0100, L501.4021 ####[facility] [address] [place], [address] Erythrocyte distribution width (RBC) [Ratio] 12.5 % Normal 11.6-14.6 [facility] Comment on above: Performed By: #### L 100.0100, L501.4021 ####[facility] [address] [place], [address] Hematocrit (Bld) [Volume fraction] 41.4 % Normal 37-47 [facility] Comment on above: Performed By: #### L 100.0100, L501.4021 ####[facility] [address] [place], [address] Hemoglobin (Bld) [Mass/Vol] 13.7 g/dL Normal 12.0-15.0 [facility] Comment on above: Performed By: #### L 100.0100, L501.4021 ####[facility] [address] [place], [address] IG% 0.600 Normal 0.0-0.9 [facility] Comment on above: Result Comment: IG% - Immature Granulocytes (promyelocytes, myelocytes andmetamyelocytes) > 1% indicates that a LEFT SHIFT is Present. Performed By: #### L 100.0100, L501.4021 ####[facility] [address] [place], [address] Lymphocytes/100 WBC (Bld) 17.2 % Low 19-41 [facility] Comment on above: Performed By: #### L 100.0100, L501.4021 ####[facility] [address] [place], [address] MCH (RBC) [Entitic mass] 30.4 pg Normal 27.0-32.0 [facility] Comment on above: Performed By: #### L 100.0100, L501.4021 ####[facility] [address] [place], [address] MCHC (RBC) [Mass/Vol] 33.1 g/dL Normal 32-36 [facility] Comment on above: Performed By: #### L 100.0100, L501.4021 ####[facility] [address] [place], [address] MCV (RBC) [Entitic vol] 92.0 fL Normal 81-[address] [facility] Comment on above: Performed By: #### L 100.0100, L501.4021 ####[facility] [address] [place], [address] Monocytes/100 WBC (Bld) 10.2 % High 0-10 [facility] Comment on above: Performed By: #### L 100.0100, L501.4021 ####[facility] [address] [place], [address] Neutrophils/100 WBC (Bld) 70.3 % High 47-70 [facility] Comment on above: Performed By: #### L 100.0100, L501.4021 ####[facility] [address] [place], [address] Nucleated RBC (Bld) [#/Vol] 0 10*3/uL Normal 0-5 [facility] Comment on above: Performed By: #### L 100.0100, L501.4021 ####[facility] [address] [place], [address] Platelet mean volume (Bld) [Entitic vol] 9.8 fL Normal 6.2-12.0 [facility] Comment on above: Performed By: #### L 100.0100, L501.4021 ####[facility] [address] [place], [address] Platelets (Bld) [#/Vol] 228 10*3/uL Normal 150-450 [facility] Comment on above: Performed By: #### L 100.0100, L501.4021 ####[facility] [address] [place], [address] RBC (Bld) [#/Vol] 4.50 10*6/uL Normal 4.2-5.4 [facility] Comment on above: Performed By: #### L 100.0100, L501.4021 ####[facility] [address] [place], [address] RDW SD 42.3 fl Normal 35.1-43.9 [facility] Comment on above: Performed By: #### L 100.0100, L501.4021 ####[facility] [address] [place], [address] WBC (Bld) [#/Vol] 6.5 10*3/uL Normal 4.4-11.0 [facility] Comment on above: Performed By: #### L 100.0100, L501.4021 ####[facility] [address] [place], [address] Carbon dioxide, total [Moles /volume] in Central venous bloodOrdered By: Donovan Pierson on 09-09-2024 CO2 [Moles/Vol] 27.5 mmol/L 21.0-32.0 [facility] Chest 1 View (Portable)on Chest 1 View (Portable) Normal [facility] Chloride assayOrdered By: Joe Pierson on 09-09-2024 Chloride [Moles/Vol] 103 mmol/L 98-108 [facility] Emergency Department Summary on 09-09-2024 Emergency Department Summary Normal [facility] Eosinophil percentageOrdered By: Donovan Pierson on 09-09-2024 Eosinophils/100 WBC (Bld) 1.2 % 0-5 [facility] Erythrocyte distribution wid th ratioOrdered By: Donovan Pierson on 09-09-2024 Erythrocyte distribution width (RBC) [Ratio] 12.5 % 11.6-14.6 [facility] Erythrocyte distribution wid th standard deviationOrdered By: Donovan Pierson on 09-09-2024 Erythrocyte distribution width (RBC) [Ratio] 42.3 fl 35.1-43.9 [facility] Glomerular filtration rate ( GFR) estimation/1.73 sq m using serum, plasma, or whole bOrdered By: Donovan Pierson on 09-09-2024 GFR/1.73 sq M.predicted among non-blacks MDRD (S/P/Bld) [Vol rate/Area] 92 mL/min/{1.73_m2} >60 [facility] Comment on above: mL/min/1.73m2 CKD-EP I Creatinine Equation (2020) Hematocrit Auto (Bld) [Volum e fraction]Ordered By: Donovan Pierson on 09-09-2024 Hematocrit (Bld) [Volume fraction] 41.4 % 37-47 [facility] Hemoglobin measurementOrdere d By: Donovan Pierson on 09-09-2024 Hemoglobin (Bld) [Mass/Vol] 13.7 g/dL 12.0-15.0 [facility] Immature granulocytes/100 WB C Auto (Bld)Ordered By: Donovan Pierson on 09-09-2024 Immature granulocytes/100 WBC (Bld) 0.600 % 0.0-0.9 [facility] Comment on above: IG% - Immature Granu locytes (promyelocytes, myelocytes and metamyelocytes) > 1% indicates that a LEFT SHIFT is Present. L499.0042on 09-09-2024 Trop T High Sen 14 ng/L Normal <=14 [facility] Comment on above: Performed By: #### L 499.0042 ####[facility] [address] [place], [address] L501.4021on 09-09-2024 Trop T High Sen 14 ng/L Normal <=14 [facility] Comment on above: Performed By: #### L 100.0100, L501.4021 ####[facility] [address] [place], [address] L503.7505on 09-09-2024 Natriuretic peptide B (Bld) [Mass/Vol] 468 pg/mL Normal <=1800 [facility] Comment on above: Result Comment: Hear t Failure Unlikely: < 300 pg/mLHeart Failure Likely< 50 Years: > 450 pg/mL50-75 Years: > 900 pg/mL>75 Years: > 1800 pg/mL Performed By: #### L 503.7505, L500.2500 ####[facility] [address] [place], [address] MCV (mean corpuscular volume ) determinationOrdered By: Donovan Pierson on 09-09-2024 MCV (RBC) [Entitic vol] 92.0 fL 81-99 [facility] Mean corpuscular hemoglobin (MCH) determinationOrdered By: Donovan Pierson on 09-09-2024 MCH (RBC) [Entitic mass] 30.4 pg 27.0-32.0 [facility] Mean corpuscular hemoglobin concentration (MCHC) determinationOrdered By: Donovan Pierson on 09-09-2024 MCHC (RBC) [Mass/Vol] 33.1 g/dL 32-36 [facility] Mean platelet volume determi nationOrdered By: Donovan Pierson on 09-09-2024 Platelet mean volume (Bld) [Entitic vol] 9.8 fL 6.2-12.0 [facility] Monocyte percentageOrdered B y: Donovan Pierson on 09-09-2024 Monocytes/100 WBC (Bld) 10.2 % High 0-10 [facility] Natriuretic peptide.B prohor len N-Terminal [Mass/volume] in Serum or PlasmaOrdered By: Donovan Pierson on 09-09-2024 Natriuretic peptide.B prohormone N-Terminal [Mass/Vol] 468 pg/mL <1800 [facility] Comment on above: Heart Failure Unlike ly: < 300 pg/mLHeart Failure Likely< 50 Years: > 450 pg/mL50-75 Years: > 900 pg/mL>75 Years: > 1800 pg/mL Neutrophil percentageOrdered By: Donovan Pierson on 09-09-2024 Neutrophils/100 WBC (Bld) 70.3 % High 47-70 [facility] Nucleated red blood cell per centageOrdered By: Donovan Pierson on 09-09-2024 Nucleated RBC/100 WBC (Bld) [Ratio] 0 % 0-5 [facility] Platelet countOrdered By: Joe Pierson on 09-09-2024 Platelets (Bld) [#/Vol] 228 10*3/uL 150-450 [facility] Potassium measurement (mass/ volume)Ordered By: Donovan Pierson on 09-09-2024 Potassium (Unsp spec) [Mass/Vol] 4.6 mmol/L 3.3-5.1 [facility] RBC Auto (Bld) [#/Vol]Ordere d By: Donovan Pierson on 09-09-2024 RBC (Bld) [#/Vol] 4.50 10*6/uL 4.2-5.4 [facility] Serum creatinine measurement (mass/volume)Ordered By: Donovan Pierson on 09-09-2024 Creatinine [Mass/Vol] 0.55 mg/dL Low 0.70-1.20 [facility] Serum glucose measurement (m ass/volume)Ordered By: Donovan Pierson on 09-09-2024 Glucose [Mass/Vol] 120 mg/dL High 70-99 [facility] Serum or plasma calcium aaron urement (mass/volume)Ordered By: Donovan Pierson on 09-09-2024 Calcium [Mass/Vol] 10.4 mg/dL 7.6-11.0 [facility] Serum or plasma urea nitroge n measurement (mass/volume)Ordered By: Donovan Pierson on 09-09-2024 Urea nitrogen [Mass/Vol] 19 mg/dL 4-19 [facility] Sodium levelOrdered By: Donovan Pierson on 09-09-2024 Sodium [Moles/Vol] 139 mmol/L 133-145 [facility] Troponin T.cardiac [Mass/vol ume] in Serum or Plasma by High sensitivity methodOrdered By: Donovan Pierson on 09-09-2024 Troponin T.cardiac High sensitivity method [Mass/Vol] 14 ng/L <14 [facility] Troponin T.cardiac High sensitivity method [Mass/Vol] 14 ng/L Invalid Interpretation Code <14 [facility] Comment on above: Delta: 18 on 5-0350 White blood cell (WBC) count Ordered By: Donovan Pierson on 09-09-2024 WBC (Bld) [#/Vol] 6.5 10*3/uL 4.4-11.0 [facility] Cardiology Visit Reporton Cardiology Visit Report Normal [facility] Cardiology Visit Reporton Cardiology Visit Report Normal [facility] 12 Lead EKGon 08-02-2024 12 Lead EKG Normal [facility] Absolute lymphocyte countOrd ered By: Jaylen Jack on 08-02-2024 Lymphocytes Auto (Unsp spec) [#/Vol] 1.11 10*3/uL 0.83-4.51 [facility] Absolute neutrophil countOrd ered By: Jaylen Jack on 08-02-2024 Neutrophils (Bld) [#/Vol] 4.9 10*3/uL 2.0-7.7 [facility] Anion gap in Serum or Plasma Ordered By: Jaylen Jack on 08-02-2024 Anion gap [Moles/Vol] 10 mmol/L 5-15 [facility] Automated lymphocyte count a s percentage of total leukocytesOrdered By: Jalyen Jack on 08-02-2024 Lymphocytes/100 WBC Auto (Unsp spec) 16.3 % Low 19-41 [facility] BUN/creatinine ratioOrdered By: Jaylen Jack on 06-03-2025 Urea nitrogen/Creatinine [Mass ratio] 38.1 mg/mg High 10-20 [facility] Basophil percentageOrdered B y: Jaylen Jack on 08-02-2024 Basophils/100 WBC (Bld) 0.4 % 0-1 [facility] Bilirubin Test strip Ql (U)O rdered By: Jaylen Jack on 08-02-2024 Bilirubin Ql (U) Negative Negative [facility] Bilirubin, totalOrdered By: Jaylen Jack on 08-02-2024 Bilirubin [Mass/Vol] 0.61 mg/dL 0.00-1.30 [facility] Brain/Head without Contrasto n 08-02-2024 Brain/Head without Contrast Normal [facility] CBC W/Diff, Automatedon Absolute Lymph 1.11 X10 3/uL Normal 0.83-4.51 [facility] Comment on above: Performed By: #### L 500.4050, L100.0100, L503.6005, L501.4021 ####[facility] [address] [place], [address] Absolute Neut 4.9 X10 3/uL Normal 2.0-7.7 [facility] Comment on above: Performed By: #### L 500.4050, L100.0100, L503.6005, L501.4021 ####[facility] [address] [place], [address] Basophils/100 WBC (Bld) 0.4 % Normal 0-1 [facility] Comment on above: Performed By: #### L 500.4050, L100.0100, L503.6005, L501.4021 ####[facility] [address] [place], [address] Eosinophils/100 WBC (Bld) 1.5 % Normal 0-5 [facility] Comment on above: Performed By: #### L 500.4050, L100.0100, L503.6005, L501.4021 ####[facility] [address] [place], [address] Erythrocyte distribution width (RBC) [Ratio] 12.6 % Normal 11.6-14.6 [facility] Comment on above: Performed By: #### L 500.4050, L100.0100, L503.6005, L501.4021 ####[facility] [address] [place], [address] Hematocrit (Bld) [Volume fraction] 42.2 % Normal 37-47 [facility] Comment on above: Performed By: #### L 500.4050, L100.0100, L503.6005, L501.4021 ####[facility] [address] [place], [address] Hemoglobin (Bld) [Mass/Vol] 13.8 g/dL Normal 12.0-15.0 [facility] Comment on above: Performed By: #### L 500.4050, L100.0100, L503.6005, L501.4021 ####[facility] [address] [place], [address] IG% 0.600 Normal 0.0-0.9 [facility] Comment on above: Result Comment: IG% - Immature Granulocytes (promyelocytes, myelocytes andmetamyelocytes) > 1% indicates that a LEFT SHIFT is Present. Performed By: #### L 500.4050, L100.0100, L503.6005, L501.4021 ####[facility] [address] [place], [address] Lymphocytes/100 WBC (Bld) 16.3 % Low 19-41 [facility] Comment on above: Performed By: #### L 500.4050, L100.0100, L503.6005, L501.4021 ####[facility] [address] [place], [address] MCH (RBC) [Entitic mass] 30.7 pg Normal 27.0-32.0 [facility] Comment on above: Performed By: #### L 500.4050, L100.0100, L503.6005, L501.4021 ####[facility] [address] [place], [address] MCHC (RBC) [Mass/Vol] 32.7 g/dL Normal 32-36 [facility] Comment on above: Performed By: #### L 500.4050, L100.0100, L503.6005, L501.4021 ####[facility] [address] [place], [address] MCV (RBC) [Entitic vol] 93.8 fL Normal 81-[address] [facility] Comment on above: Performed By: #### L 500.4050, L100.0100, L503.6005, L501.4021 ####[facility] [address] [place], [address] Monocytes/100 WBC (Bld) 9.1 % Normal 0-[address] [facility] Comment on above: Performed By: #### L 500.4050, L100.0100, L503.6005, L501.4021 ####[facility] [address] [place], [address] Neutrophils/100 WBC (Bld) 72.1 % High 47-70 [facility] Comment on above: Performed By: #### L 500.4050, L100.0100, L503.6005, L501.4021 ####[facility] [address] [place], [address] Nucleated RBC (Bld) [#/Vol] 0 10*3/uL Normal 0-5 [facility] Comment on above: Performed By: #### L 500.4050, L100.0100, L503.6005, L501.4021 ####[facility] [address] [place], [address] Platelet mean volume (Bld) [Entitic vol] 10.0 fL Normal 6.2-12.0 [facility] Comment on above: Performed By: #### L 500.4050, L100.0100, L503.6005, L501.4021 ####[facility] [address] [place], [address] Platelets (Bld) [#/Vol] 201 10*3/uL Normal 150-450 [facility] Comment on above: Performed By: #### L 500.4050, L100.0100, L503.6005, L501.4021 ####[facility] [address] [place], [address] RBC (Bld) [#/Vol] 4.50 10*6/uL Normal 4.2-5.4 [facility] Comment on above: Performed By: #### L 500.4050, L100.0100, L503.6005, L501.4021 ####[facility] [address] [place], [address] RDW SD 43.5 fl Normal 35.1-43.9 [facility] Comment on above: Performed By: #### L 500.4050, L100.0100, L503.6005, L501.4021 ####[facility] [address] [place], [address] WBC (Bld) [#/Vol] 6.8 10*3/uL Normal 4.4-11.0 [facility] Comment on above: Performed By: #### L 500.4050, L100.0100, L503.6005, L501.4021 ####[facility] [address] [place], [address] Carbon dioxide, total [Moles /volume] in Central venous bloodOrdered By: Jaylen Jack on 08-02-2024 CO2 [Moles/Vol] 26.4 mmol/L 21.0-32.0 [facility] Chest 1 View (Portable)on Chest 1 View (Portable) Normal [facility] Chloride assayOrdered By: [place] maryuri Jack on 08-02-2024 Chloride [Moles/Vol] 105 mmol/L 98-108 [facility] Comprehensive Metabolic Prof ilon 08-02-2024 Albumin [Mass/Vol] 3.6 g/dL Normal 3.4-4.8 [facility] Comment on above: Performed By: #### L 500.4050, L100.0100, L503.6005, L501.4021 ####[facility] [address] [place], [address] Albumin/Globulin [Mass ratio] 1.2 {ratio} Normal 0.9-2.4 [facility] Comment on above: Performed By: #### L 500.4050, L100.0100, L503.6005, L501.4021 ####[facility] [address] [place], [address] ALK PHOS 107 U/L High 35-104 [facility] Comment on above: Performed By: #### L 500.4050, L100.0100, L503.6005, L501.4021 ####[facility] [address] [place], [address] ALT [Catalytic activity/Vol] 13 U/L Normal <=34 [facility] Comment on above: Performed By: #### L 500.4050, L100.0100, L503.6005, L501.4021 ####[facility] [address] [place], [address] AST [Catalytic activity/Vol] 17 U/L Normal <=31 [facility] Comment on above: Performed By: #### L 500.4050, L100.0100, L503.6005, L501.4021 ####[facility] [address] [place], [address] Bilirubin [Mass/Vol] 0.61 mg/dL Normal 0.00-1.30 [facility] Comment on above: Performed By: #### L 500.4050, L100.0100, L503.6005, L501.4021 ####[facility] [address] [place], [address] BUN/CRE 38.1 RATIO High 10-20 [facility] Comment on above: Performed By: #### L 500.4050, L100.0100, L503.6005, L501.4021 ####[facility] [address] [place], [address] Calcium [Mass/Vol] 10.5 mg/dL Normal 7.6-11.0 [facility] Comment on above: Performed By: #### L 500.4050, L100.0100, L503.6005, L501.4021 ####[facility] [address] [place], [address] Chloride [Moles/Vol] 105 mmol/L Normal 98-108 [facility] Comment on above: Performed By: #### L 500.4050, L100.0100, L503.6005, L501.4021 ####[facility] [address] [place], [address] CO2 [Moles/Vol] 26.4 mmol/L Normal 21.0-32.0 [facility] Comment on above: Performed By: #### L 500.4050, L100.0100, L503.6005, L501.4021 ####[facility] [address] [place], [address] Creatinine [Mass/Vol] 0.60 mg/dL Low 0.70-1.20 [facility] Comment on above: Performed By: #### L 500.4050, L100.0100, L503.6005, L501.4021 ####[facility] [address] [place], [address] ECRCL 58.03 ml/min Normal 50-250 [facility] Comment on above: Performed By: #### L 500.4050, L100.0100, L503.6005, L501.4021 ####[facility] [address] [place], [address] GAP 10 Normal 5-15 [facility] Comment on above: Performed By: #### L 500.4050, L100.0100, L503.6005, L501.4021 ####[facility] [address] [place], [address] GFR/1.73 sq M.predicted among non-blacks MDRD (S/P/Bld) [Vol rate/Area] 91 mL/min/{1.73_m2} Normal >60 [facility] Comment on above: Result Comment: mL/m in/1.73m2 CKD-EPI Creatinine Equation (2020) Performed By: #### L 500.4050, L100.0100, L503.6005, L501.4021 ####[facility] [address] [place], [address] Globulin (S) [Mass/Vol] 2.9 g/dL Normal 2.2-4.[address] [facility] Comment on above: Performed By: #### L 500.4050, L100.0100, L503.6005, L501.4021 ####[facility] [address] [place], [address] Glucose [Mass/Vol] 117 mg/dL High 70-99 [facility] Comment on above: Performed By: #### L 500.4050, L100.0100, L503.6005, L501.4021 ####[facility] [address] [place], [address] Potassium [Moles/Vol] 3.8 mmol/L Normal 3.3-5.1 [facility] Comment on above: Performed By: #### L 500.4050, L100.0100, L503.6005, L501.4021 ####[facility] [address] [place], [address] Sodium [Moles/Vol] 142 mmol/L Normal 133-145 [facility] Comment on above: Performed By: #### L 500.4050, L100.0100, L503.6005, L501.4021 ####[facility] [address] [place], [address] T PROT 6.5 g/dL Normal 5.9-8.4 [facility] Comment on above: Performed By: #### L 500.4050, L100.0100, L503.6005, L501.4021 ####[facility] [address] [place], [address] Urea nitrogen [Mass/Vol] 23 mg/dL High 4-19 [facility] Comment on above: Performed By: #### L 500.4050, L100.0100, L503.6005, L501.4021 ####[facility] [address] [place], [address] Emergency Department Summary on 08-02-2024 Emergency Department Summary Normal [facility] Eosinophil percentageOrdered By: Jaylen Jack on 08-02-2024 Eosinophils/100 WBC (Bld) 1.5 % 0-5 [facility] Erythrocyte distribution wid th ratioOrdered By: Jaylen Jack on 08-02-2024 Erythrocyte distribution width (RBC) [Ratio] 12.6 % 11.6-14.6 [facility] Erythrocyte distribution wid th standard deviationOrdered By: Jaylen Jack on 08-02-2024 Erythrocyte distribution width (RBC) [Ratio] 43.5 fl 35.1-43.9 [facility] Glomerular filtration rate ( GFR) estimation/1.73 sq m using serum, plasma, or whole bOrdered By: Jaylen Jack on 08-02-2024 GFR/1.73 sq M.predicted among non-blacks MDRD (S/P/Bld) [Vol rate/Area] 91 mL/min/{1.73_m2} >60 [facility] Comment on above: mL/min/1.73m2 CKD-EP I Creatinine Equation (2020) Hematocrit Auto (Bld) [Volum e fraction]Ordered By: Jaylen Jack on 08-02-2024 Hematocrit (Bld) [Volume fraction] 42.2 % 37-47 [facility] Hemoglobin measurementOrdere d By: Jaylen Jack on 08-02-2024 Hemoglobin (Bld) [Mass/Vol] 13.8 g/dL 12.0-15.0 [facility] Immature granulocytes/100 WB C Auto (Bld)Ordered By: Jaylen Jack on 08-02-2024 Immature granulocytes/100 WBC (Bld) 0.600 % 0.0-0.9 [facility] Comment on above: IG% - Immature Granu locytes (promyelocytes, myelocytes and metamyelocytes) > 1% indicates that a LEFT SHIFT is Present. Ketones Test strip Ql (U)Ord ered By: Jaylen Jack on 08-02-2024 Ketones Ql (U) Negative Negative [facility] L501.4021on 08-02-2024 Trop T High Sen 18 ng/L High <=14 [facility] Comment on above: Performed By: #### L 500.4050, L100.0100, L503.6005, L501.4021 ####[facility] [address] [place], [address] Laboratory - Chemistry and C hemistry - challengeOrdered By: Jaylen Jack on 08-02-2024 AST [Catalytic activity/Vol] 17 U/L <32 [facility] Lactic acid measurementOrder ed By: Jaylen Jack on 08-02-2024 Lactate [Moles/Vol] 1.2 mmol/L Normal 0.0-2.0 [facility] Comment on above: Order Comment: Y Performed By: #### L 500.4050, L100.0100, L503.6005, L501.4021 ####[facility] [address] [place], [address] MCV (mean corpuscular volume ) determinationOrdered By: Jaylen Jack on 08-02-2024 MCV (RBC) [Entitic vol] 93.8 fL 81-99 [facility] Mean corpuscular hemoglobin (MCH) determinationOrdered By: Jaylen Jack on 08-02-2024 MCH (RBC) [Entitic mass] 30.7 pg 27.0-32.0 [facility] Mean corpuscular hemoglobin concentration (MCHC) determinationOrdered By: Jaylen Jack on 08-02-2024 MCHC (RBC) [Mass/Vol] 32.7 g/dL 32-36 [facility] Mean platelet volume determi nationOrdered By: Jaylen Jack on 08-02-2024 Platelet mean volume (Bld) [Entitic vol] 10.0 fL 6.2-12.0 [facility] Microscopic analysis of urin e for red blood cells (RBC)Ordered By: Jaylen Jack on 08-02-2024 Microscopic analysis of urine for red blood cells (RBC) 0 SEEN /hpf 0-5 [facility] Monocyte percentageOrdered B y: Jaylen Jack on 08-02-2024 Monocytes/100 WBC (Bld) 9.1 % 0-10 [facility] Mucus LM Ql (Urine sed)Order ed By: Jaylen Jack on 08-02-2024 Mucus Ql (Urine sed) 0 SEEN /hpf [facility] Neutrophil percentageOrdered By: Jaylen Jack on 08-02-2024 Neutrophils/100 WBC (Bld) 72.1 % High 47-70 [facility] Nitrite Test strip Ql (U)Ord ered By: Jaylen Jack on 08-02-2024 Nitrite Ql (U) Negative Negative [facility] No Panel InformationOrdered By: Jaylen Jack on 06-03-2025 17 U/L <32 [facility] Nucleated red blood cell per centageOrdered By: Jaylen Jack on 08-02-2024 Nucleated RBC/100 WBC (Bld) [Ratio] 0 % 0-5 [facility] Platelet countOrdered By: Lincoln Jack on 08-02-2024 Platelets (Bld) [#/Vol] 201 10*3/uL 150-450 [facility] Potassium measurement (mass/ volume)Ordered By: Jaylen Jack on 08-02-2024 Potassium (Unsp spec) [Mass/Vol] 3.8 mmol/L 3.3-5.1 [facility] Protein Test strip Ql (U)Ord ered By: Jaylen Jack on 08-02-2024 Protein Ql (U) 30 mg/dl High Negative [facility] RBC Auto (Bld) [#/Vol]Ordere d By: Jaylen Jack on 08-02-2024 RBC (Bld) [#/Vol] 4.50 10*6/uL 4.2-5.4 [facility] Serum creatinine measurement (mass/volume)Ordered By: Jaylen Jack on 08-02-2024 Creatinine [Mass/Vol] 0.60 mg/dL Low 0.70-1.20 [facility] Serum globulin measurementOr dered By: Jaylen Jack on 08-02-2024 Globulin (S) [Mass/Vol] 2.9 g/dL 2.2-4.2 [facility] Serum glucose measurement (m ass/volume)Ordered By: Jaylen Jack on 08-02-2024 Glucose [Mass/Vol] 117 mg/dL High 70-99 [facility] Serum or plasma alanine rajput otransferase (ALT) measurementOrdered By: Jaylen Jack on 08-02-2024 ALT [Catalytic activity/Vol] 13 U/L <35 [facility] Serum or plasma albumin aarno urement (mass/volume)Ordered By: Jaylen Jack on 08-02-2024 Albumin [Mass/Vol] 3.6 g/dL 3.4-4.8 [facility] Serum or plasma albumin/glob ulin mass ratioOrdered By: Jaylen Jack on 08-02-2024 Albumin/Globulin [Mass ratio] 1.2 {ratio} 0.9-2.4 [facility] Serum or plasma alkaline bernardo sphatase measurementOrdered By: Jaylen Jack on 08-02-2024 ALP [Catalytic activity/Vol] 107 U/L High 35-104 [facility] Serum or plasma calcium aaron urement (mass/volume)Ordered By: Jaylen Jack on 08-02-2024 Calcium [Mass/Vol] 10.5 mg/dL 7.6-11.0 [facility] Serum or plasma urea nitroge n measurement (mass/volume)Ordered By: Jaylen Jack on 08-02-2024 Urea nitrogen [Mass/Vol] 23 mg/dL High 4-19 [facility] Sodium levelOrdered By: Ramos Jack on 08-02-2024 Sodium [Moles/Vol] 142 mmol/L 133-145 [facility] Squamous epithelial cells de tection in urine sediment by light microscopyOrdered By: Jaylen Jack on 08-02-2024 Epithelial cells.squamous LM Ql (Urine sed) 0-5 SEEN /hpf - [facility] Total proteinOrdered By: Olesya Jack on 08-02-2024 Protein [Mass/Vol] 6.5 g/dL 5.9-8.4 [facility] Troponin T.cardiac [Mass/vol ume] in Serum or Plasma by High sensitivity methodOrdered By: Jaylen Jack on 08-02-2024 Troponin T.cardiac High sensitivity method [Mass/Vol] 18 ng/L High <14 [facility] Urinalysis, Completeon 08-02 BACTERIA RARE Normal None Seen [facility] Comment on above: Order Comment: MAYA CTOR TO SPECIFY Performed By: #### L 400.0001 ####[facility] [address] [place], [place], [id number] EPI,SQUAMOUS 0-5 SEEN Normal 5-10 [facility] Comment on above: Order Comment: MAYA CTOR TO SPECIFY Performed By: #### L 400.0001 ####[facility] [address] [place], [address] WBC 0-5 SEEN Normal 0-5 [facility] Comment on above: Order Comment: MAYA CTOR TO SPECIFY Performed By: #### L 400.0001 ####[facility] [address] [place], [address] Mucus Ql (Urine sed) 0 SEEN Normal [facility] Comment on above: Order Comment: MAYA CTOR TO SPECIFY Performed By: #### L 400.0001 ####[facility] [address] [place], [address] RBC 0 SEEN Normal 0-5 [facility] Comment on above: Order Comment: MAYA CTOR TO SPECIFY Performed By: #### L 400.0001 ####[facility] [address] [place], [address] Urine clarityOrdered By: Olesya Jack on 08-02-2024 Clarity (U) Sl. Cloudy Clear [facility] Urine color determinationOrd ered By: Jaylen Jack on 08-02-2024 Color (U) Yellow Yellow [facility] Urine glucose detectionOrder ed By: Jaylen Jack on 08-02-2024 Glucose Ql (U) Normal mg/dl Normal [facility] Urine leukocyte esterase det ection by dipstickOrdered By: Jaylen Jack on 08-02-2024 Leukocyte esterase Test strip Ql (U) Negative Negative [facility] Urine pHOrdered By: Jaylen carroll on 08-02-2024 pH (U) 6.0 [pH] 5.0 - 8.0 [facility] Urine sediment bacteria coun t by microscopy (number/high power field)Ordered By: Jaylen Jack on 08-02-2024 Bacteria LM.HPF (Urine sed) [#/Area] RARE /hpf None Seen [facility] Urine specific gravity measu rementOrdered By: Jaylen Jack on 08-02-2024 Specific gravity (U) [Rel density] 1.020 1.002-1.030 [facility] Urine urobilinogen measureme ntOrdered By: Jaylen Jack on 08-02-2024 Urobilinogen Ql (U) Normal mg/dl Normal [facility] White blood cell (WBC) count Ordered By: Jaylen Jack on 08-02-2024 WBC (Bld) [#/Vol] 6.8 10*3/uL 4.4-11.0 [facility] White blood cell countOrdere d By: Jaylen Jack on 08-02-2024 White blood cell count 0-5 SEEN /hpf 0-5 [facility] Absolute lymphocyte countOrd ered By: Jennifer Meléndez on 06-18-2024 Lymphocytes Auto (Unsp spec) [#/Vol] 1.33 10*3/uL 0.83-4.51 [facility] Absolute neutrophil countOrd ered By: Jennifer Meléndez on 06-18-2024 Neutrophils (Bld) [#/Vol] 5.2 10*3/uL 2.0-7.7 [facility] Anion gap in Serum or Plasma Ordered By: Jennifer Meléndez on 06-18-2024 Anion gap [Moles/Vol] 9 mmol/L 5-15 [facility] Automated lymphocyte count a s percentage of total leukocytesOrdered By: Jennifer Meléndez on 06-18-2024 Lymphocytes/100 WBC Auto (Unsp spec) 18.1 % Low 19-41 [facility] BUN/creatinine ratioOrdered By: Jennifer Meléndez on 06-18-2024 Urea nitrogen/Creatinine [Mass ratio] 38.3 mg/mg High 10-20 [facility] Basic Metabolic Profile (BMP )on 06-18-2024 BUN/CRE 38.3 RATIO High 10-20 [facility] Comment on above: Performed By: #### L 100.0100, L500.2500 ####[facility] [address] [place], [address] Calcium [Mass/Vol] 10.4 mg/dL Normal 7.6-11.0 [facility] Comment on above: Performed By: #### L 100.0100, L500.2500 ####[facility] [address] [place], [address] Chloride [Moles/Vol] 102 mmol/L Normal 98-108 [facility] Comment on above: Performed By: #### L 100.0100, L500.2500 ####[facility] [address] [place], [address] CO2 [Moles/Vol] 27.6 mmol/L Normal 21.0-32.0 [facility] Comment on above: Performed By: #### L 100.0100, L500.2500 ####[facility] [address] [place], [address] Creatinine [Mass/Vol] 0.70 mg/dL Normal 0.70-1.20 [facility] Comment on above: Performed By: #### L 100.0100, L500.2500 ####[facility] [address] [place], [address] ECRCL 59.54 ml/min Normal 50-250 [facility] Comment on above: Performed By: #### L 100.0100, L500.2500 ####[facility] [address] [place], [address] GAP 9 Normal 5-15 [facility] Comment on above: Performed By: #### L 100.0100, L500.2500 ####[facility] [address] [place], [address] GFR/1.73 sq M.predicted among non-blacks MDRD (S/P/Bld) [Vol rate/Area] 88 mL/min/{1.73_m2} Normal >60 [facility] Comment on above: Result Comment: mL/m in/1.73m2 CKD-EPI Creatinine Equation (2020) Performed By: #### L 100.0100, L500.2500 ####[facility] [address] [place], [address] Glucose [Mass/Vol] 114 mg/dL High 70-99 [facility] Comment on above: Performed By: #### L 100.0100, L500.2500 ####[facility] [address] [place], [address] Potassium [Moles/Vol] 4.5 mmol/L Normal 3.3-5.1 [facility] Comment on above: Performed By: #### L 100.0100, L500.2500 ####[facility] [address] [place], [address] Sodium [Moles/Vol] 139 mmol/L Normal 133-145 [facility] Comment on above: Performed By: #### L 100.0100, L500.2500 ####[facility] [address] [place], [address] Urea nitrogen [Mass/Vol] 27 mg/dL High - [facility] Comment on above: Performed By: #### L 100.0100, L500.2500 ####[facility] [address] [place], [address] Basophil percentageOrdered B y: Jennifer Santosgloria on 06-18-2024 Basophils/100 WBC (Bld) 0.3 % 0-1 [facility] CBC W/Diff, Automatedon 05-31 Absolute Lymph 1.33 X10 3/uL Normal 0.83-4.51 [facility] Comment on above: Performed By: #### L 100.0100, L500.2500 ####[facility] [address] [place], [address] Absolute Neut 5.2 X10 3/uL Normal 2.0-7.7 [facility] Comment on above: Performed By: #### L 100.0100, L500.2500 ####[facility] [address] [place], [address] Basophils/100 WBC (Bld) 0.3 % Normal 0-1 [facility] Comment on above: Performed By: #### L 100.0100, L500.2500 ####[facility] [address] [place], [address] Eosinophils/100 WBC (Bld) 1.0 % Normal 0-5 [facility] Comment on above: Performed By: #### L 100.0100, L500.2500 ####[facility] [address] [place], [address] Erythrocyte distribution width (RBC) [Ratio] 12.6 % Normal 11.6-14.6 [facility] Comment on above: Performed By: #### L 100.0100, L500.2500 ####[facility] [address] [place], [address] Hematocrit (Bld) [Volume fraction] 42.3 % Normal 37-47 [facility] Comment on above: Performed By: #### L 100.0100, L500.2500 ####[facility] [address] [place], [address] Hemoglobin (Bld) [Mass/Vol] 14.1 g/dL Normal 12.0-15.0 [facility] Comment on above: Performed By: #### L 100.0100, L500.2500 ####[facility] [address] [place], [address] IG% 0.400 Normal 0.0-0.9 [facility] Comment on above: Result Comment: IG% - Immature Granulocytes (promyelocytes, myelocytes andmetamyelocytes) > 1% indicates that a LEFT SHIFT is Present. Performed By: #### L 100.0100, L500.2500 ####[facility] [address] [place], [address] Lymphocytes/100 WBC (Bld) 18.1 % Low 19-41 [facility] Comment on above: Performed By: #### L 100.0100, L500.2500 ####[facility] [address] [place], [address] MCH (RBC) [Entitic mass] 30.4 pg Normal 27.0-32.0 [facility] Comment on above: Performed By: #### L 100.0100, L500.2500 ####[facility] [address] [place], [address] MCHC (RBC) [Mass/Vol] 33.3 g/dL Normal 32-36 [facility] Comment on above: Performed By: #### L 100.0100, L500.2500 ####[facility] [address] [place], [address] MCV (RBC) [Entitic vol] 91.2 fL Normal 81-[address] [facility] Comment on above: Performed By: #### L 100.0100, L500.2500 ####[facility] [address] [place], [address] Monocytes/100 WBC (Bld) 9.1 % Normal 0-[address] [facility] Comment on above: Performed By: #### L 100.0100, L500.2500 ####[facility] [address] [place], [address] Neutrophils/100 WBC (Bld) 71.1 % High 47-70 [facility] Comment on above: Performed By: #### L 100.0100, L500.2500 ####[facility] [address] [place], [address] Nucleated RBC (Bld) [#/Vol] 0 10*3/uL Normal 0-5 [facility] Comment on above: Performed By: #### L 100.0100, L500.2500 ####[facility] [address] [place], [address] Platelet mean volume (Bld) [Entitic vol] 9.3 fL Normal 6.2-12.0 [facility] Comment on above: Performed By: #### L 100.0100, L500.2500 ####[facility] [address] [place], [address] Platelets (Bld) [#/Vol] 222 10*3/uL Normal 150-450 [facility] Comment on above: Performed By: #### L 100.0100, L500.2500 ####[facility] [address] [place], [address] RBC (Bld) [#/Vol] 4.64 10*6/uL Normal 4.2-5.4 [facility] Comment on above: Performed By: #### L 100.0100, L500.2500 ####[facility] [address] [place], [address] RDW SD 41.5 fl Normal 35.1-43.9 [facility] Comment on above: Performed By: #### L 100.0100, L500.2500 ####[facility] [address] [place], [address] WBC (Bld) [#/Vol] 7.3 10*3/uL Normal 4.4-11.0 [facility] Comment on above: Performed By: #### L 100.0100, L500.2500 ####[facility] [address] [place], [address] Carbon dioxide, total [Moles /volume] in Central venous bloodOrdered By: Jennifer Meléndez on 06-18-2024 CO2 [Moles/Vol] 27.6 mmol/L 21.0-32.0 [facility] Chloride assayOrdered By: Myriam Meléndez on 06-18-2024 Chloride [Moles/Vol] 102 mmol/L 98-108 [facility] Emergency Department Summary on 06-18-2024 Emergency Department Summary Normal [facility] Eosinophil percentageOrdered By: Jennifer Meléndez on 06-18-2024 Eosinophils/100 WBC (Bld) 1.0 % 0-5 [facility] Erythrocyte distribution wid th (RBC) [Ratio]Ordered By: Jennifer Meléndez on 06-18-2024 Erythrocyte distribution width (RBC) [Entitic vol] 41.5 fL 35.1-43.9 [facility] Erythrocyte distribution wid th ratioOrdered By: Jennifer Meléndez on 06-18-2024 Erythrocyte distribution width (RBC) [Ratio] 12.6 % 11.6-14.6 [facility] Erythrocyte distribution wid th standard deviationOrdered By: Jennifer Meléndez on 06-18-2024 Erythrocyte distribution width (RBC) [Ratio] 41.5 fl 35.1-43.9 [facility] Estimation of creatinine renea aranceOrdered By: Jennifer Meléndez on 06-18-2024 Estimated Creatinine Clearance Calc 59.54 ml/min 50-250 [facility] GFR/1.73 sq M.predicted bronson g non-blacks MDRD (S/P/Bld) [Vol rate/Area]Ordered By: Jennifer Meléndez on 06-18-2024 Estimated GFR (MDRD) Non-Af Amer 88 >60 [facility] Comment on above: mL/min/1.73m2 CKD-EP I Creatinine Equation (2020) Glomerular filtration rate ( GFR) estimation/1.73 sq m using serum, plasma, or whole bOrdered By: Jennifer Meléndez on 06-18-2024 GFR/1.73 sq M.predicted among non-blacks MDRD (S/P/Bld) [Vol rate/Area] 88 mL/min/{1.73_m2} >60 [facility] Comment on above: mL/min/1.73m2 CKD-EP I Creatinine Equation (2020) Hematocrit Auto (Bld) [Volum e fraction]Ordered By: Jennifer Meléndez on 06-18-2024 Hematocrit (Bld) [Volume fraction] 42.3 % 37-47 [facility] Hemoglobin measurementOrdere d By: Jennifer Meléndez on 06-18-2024 Hemoglobin (Bld) [Mass/Vol] 14.1 g/dL 12.0-15.0 [facility] Immature granulocytes/100 WB C Auto (Bld)Ordered By: Jennifer Meléndez on 06-18-2024 Immature granulocytes/100 WBC (Bld) 0.400 % 0.0-0.9 [facility] Comment on above: IG% - Immature Granu locytes (promyelocytes, myelocytes and metamyelocytes) > 1% indicates that a LEFT SHIFT is Present. Lymphocytes Auto (Unsp spec) [#/Vol]Ordered By: Jennifer Meléndez on 06-18-2024 Lymphocytes (Bld) [#/Vol] 1.33 10*3/uL 0.83-4.51 [facility] Lymphocytes/100 WBC Auto (Un sp spec)Ordered By: Jennifer Meléndez on 06-18-2024 Lymphocytes/100 WBC (Bld) 18.1 % Low 19-41 [facility] MCV (mean corpuscular volume ) determinationOrdered By: Jennifer Meléndez on 06-18-2024 MCV (RBC) [Entitic vol] 91.2 fL 81-[address] [facility] Mean corpuscular hemoglobin (MCH) determinationOrdered By: Jennifer Meléndez on 06-18-2024 MCH (RBC) [Entitic mass] 30.4 pg 27.0-32.0 [facility] Mean corpuscular hemoglobin concentration (MCHC) determinationOrdered By: Jennifer Meléndez on 06-18-2024 MCHC (RBC) [Mass/Vol] 33.3 g/dL 32-36 [facility] Mean platelet volume determi nationOrdered By: Jennifer Meléndez on 06-18-2024 Platelet mean volume (Bld) [Entitic vol] 9.3 fL 6.2-12.0 [facility] Monocyte percentageOrdered B y: Jennifer Meléndez on 06-18-2024 Monocytes/100 WBC (Bld) 9.1 % 0-10 [facility] Neutrophil percentageOrdered By: Jennifer Meléndez on 06-18-2024 Neutrophils/100 WBC (Bld) 71.1 % High 47-70 [facility] Nucleated red blood cell per centageOrdered By: Jennifer Meléndez on 06-18-2024 Nucleated RBC/100 WBC (Bld) [Ratio] 0 % 0-5 [facility] Platelet countOrdered By: Myriam Meléndez on 06-18-2024 Platelets (Bld) [#/Vol] 222 10*3/uL 150-450 [facility] Potassium (Unsp spec) [Mass/ Vol]Ordered By: Jennifer Meléndez on 06-18-2024 Potassium [Moles/Vol] 4.5 mmol/L 3.3-5.1 [facility] Potassium measurement (mass/ volume)Ordered By: Jennifer Meléndez on 06-18-2024 Potassium (Unsp spec) [Mass/Vol] 4.5 mmol/L 3.3-5.1 [facility] RBC Auto (Bld) [#/Vol]Ordere d By: Jennifer Meléndez on 06-18-2024 RBC (Bld) [#/Vol] 4.64 10*6/uL 4.2-5.4 [facility] Serum creatinine measurement (mass/volume)Ordered By: Jennifer Meléndez on 06-18-2024 Creatinine [Mass/Vol] 0.70 mg/dL 0.70-1.20 [facility] Serum glucose measurement (m ass/volume)Ordered By: Jennifer Meléndez on 06-18-2024 Glucose [Mass/Vol] 114 mg/dL High 70-99 [facility] Serum or plasma calcium aaron urement (mass/volume)Ordered By: Jennifer Meléndez on 06-18-2024 Calcium [Mass/Vol] 10.4 mg/dL 7.6-11.0 [facility] Serum or plasma urea nitroge n measurement (mass/volume)Ordered By: Jennifer Meléndez on 06-18-2024 Urea nitrogen [Mass/Vol] 27 mg/dL High 4-19 [facility] Sodium levelOrdered By: Jennifer Meléndez on 06-18-2024 Sodium [Moles/Vol] 139 mmol/L 133-145 [facility] White blood cell (WBC) count Ordered By: Jennifer Meléndez on 06-18-2024 WBC (Bld) [#/Vol] 7.3 10*3/uL 4.4-11.0 [facility] Culture, urineOrdered By: Russell Markham on 03-25-2023 Bacteria identified Cx Nom (U) Mixed Gram Pos & Gram Neg Org [facility] Basophil percentageOrdered B y: Ginger Grace on 02-02-2023 Bilirubin [Mass/Vol] 0.70 mg/dL 0.20-1.00 [facility] Comment on above: For patients on eltr ombopag therapy, use of Dimension [place] TBIL is not recommended. Cholesterol [Mass/Vol] 96 mg/dL <200 [facility] Comment on above: <200 mg/dL Desirable 200-240 mg/dL Borderline >240 mg/dL High Risk Protein [Mass/Vol] 6.1 g/dL 6.4-8.2 [facility] Triglyceride [Mass/Vol] 127 mg/dL <[address] [facility] Comment on above: The drugs N-Acetylcy steine and Metamizole may falsely depress this assay.Serum Triglycerides Reference Interval Normal <150 mg/dL Borderline high 150 - 199 mg/dL High 200 - 499 mg/dL Very High > or = 500 mg/dL Direct bilirubinOrdered By: Ginger Grace on 02-02-2023 Bilirubin.direct [Mass/Vol] 0.19 mg/dL 0.00-0.30 [facility] Laboratory - Chemistry and C hemistry - challengeOrdered By: Ginger Grace on 02-02-2023 ALP [Catalytic activity/Vol] 105 U/L 45-117 [facility] ALT [Catalytic activity/Vol] 18 U/L 13-56 [facility] Globulin (S) [Mass/Vol] 3.4 g/dL 2.2-4.[address] [facility] Serum or plasma albumin aaron urement (mass/volume)Ordered By: Ginger Grace on 02-02-2023 Albumin [Mass/Vol] 2.7 g/dL 3.2-5.0 [facility] Serum or plasma cholesterol in HDL measurement (mass/volume)Ordered By: Ginger Grace on 02-02-2023 Cholesterol in HDL [Mass/Vol] 39 mg/dL >40 [facility] Comment on above: The drugs N-Acetylcy steine and Metamizole may falsely depress this assay. Reference Range HDL <40 mg/dL Low HDL Cholesterol HDL >or= 60 mg/dL High HDL Cholesterol Serum or plasma cholesterol in VLDL measurement (mass/volume)Ordered By: Ginger Grace on 02-02-2023 Cholesterol in VLDL [Mass/Vol] 25 mg/dL 5-40 [facility] Serum or plasma low density lipoprotein (LDL) cholesterol measurement (mass/volume)Ordered By: Ginger Grace on 02-02-2023 Cholesterol in LDL [Mass/Vol] 32 mg/dL 0-130 [facility] Thin prep Papanicolaou smear with manual screeningOrdered By: Ginger Grace on 02-02-2023 Thin prep Papanicolaou smear with manual screening 14 U/L 15-37 [facility] Basophil percentageon 2021 Chloride [Moles/Vol] 106 mmol/L 98-107 [facility] Work Phone: Glucose [Mass/Vol] 102 mg/dL 74-106 [facility] Work Phone: Comment on above: Fasting Glucose resu lt from 100 to 125 mg/dL suggests IMPAIRED HOMEOSTASIS per A.D.A. criteria. Potassium [Moles/Vol] 4.0 mmol/L 3.5-5.1 [facility] Work Phone: Sodium [Moles/Vol] 141 mmol/L 136-145 [facility] Work Phone: Laboratory - Chemistry and C hemistry - challengeon 01-07-2022 CO2 [Moles/Vol] 28.0 mmol/L 21.0-32.0 [facility] Work Phone: Urea nitrogen/Creatinine [Mass ratio] 27.5 mg/mg 10-20 [facility] Work Phone: No Panel Informationon 01-07 Estimated GFR (MDRD) Amer 129 mL/min >60 [facility] Work Phone: Comment on above: GFR Calc Estimated GFR (MDRD) Non-Af Amer 107 mL/min >60 [facility] Work Phone: Comment on above: Non- GFR Calc Serum or plasma calcium aaron urement (mass/volume)on 01-07-2022 Calcium [Mass/Vol] 9.4 mg/dL 8.5-10.1 [facility] Work Phone: Serum or plasma creatinine m easurement (mass/volume)on 01-07-2022 Creatinine [Mass/Vol] 0.58 mg/dL 0.55-1.02 [facility] Work Phone: Comment on above: The validity of the calculated GFR & GFRAA in patients over 70 years has not been determined. Clinical correlation is essential. Serum or plasma urea nitroge n measurement (mass/volume)on 01-07-2022 Urea nitrogen [Mass/Vol] 16 mg/dL 7-18 [facility] Work Phone: Thin prep Papanicolaou smear with manual screeningon 01-07-2022 Thin prep Papanicolaou smear with manual screening 7 5-15 [facility] Work Phone: Basophil percentageon 2021 Bilirubin [Mass/Vol] 0.90 mg/dL 0.20-1.00 [facility] Work Phone: Comment on above: For patients on eltr ombopag therapy, use of Dimension [place] TBIL is not recommended. Chloride [Moles/Vol] 107 mmol/L 98-107 [facility] Work Phone: Cholesterol [Mass/Vol] 113 mg/dL <200 [facility] Work Phone: Comment on above: <200 mg/dL Desirable 200-240 mg/dL Borderline >240 mg/dL High Risk Glucose [Mass/Vol] 109 mg/dL 74-106 [facility] Work Phone: Comment on above: Fasting Glucose resu lt from 100 to 125 mg/dL suggests IMPAIRED HOMEOSTASIS per A.D.A. criteria. Potassium [Moles/Vol] 4.0 mmol/L 3.5-5.1 [facility] Work Phone: Protein [Mass/Vol] 6.6 g/dL 6.4-8.2 [facility] Work Phone: Sodium [Moles/Vol] 139 mmol/L 136-145 [facility] Work Phone: Triglyceride [Mass/Vol] 116 mg/dL <[address] [facility] Work Phone: Comment on above: The drugs N-Acetylcy steine and Metamizole may falsely depress this assay.Serum Triglycerides Reference Interval Normal <150 mg/dL Borderline high 150 - 199 mg/dL High 200 - 499 mg/dL Very High > or = 500 mg/dL Direct bilirubinon 2 Bilirubin.direct [Mass/Vol] 0.27 mg/dL 0.00-0.30 [facility] Work Phone: Laboratory - Chemistry and C hemistry - challengeon 12-25-2021 ALP [Catalytic activity/Vol] 132 U/L 45-117 [facility] Work Phone: ALT [Catalytic activity/Vol] 15 U/L 13-56 [facility] Work Phone: CO2 [Moles/Vol] 30.0 mmol/L 21.0-32.0 [facility] Work Phone: Globulin (S) [Mass/Vol] 3.6 g/dL 2.2-4.2 [facility] Work Phone: Natriuretic peptide B (Bld) [Mass/Vol] 243.4 pg/mL 0-100 [facility] Work Phone: Urea nitrogen/Creatinine [Mass ratio] 22.1 mg/mg 10-20 [facility] Work Phone: No Panel Informationon 12-25 Estimated GFR (MDRD) Amer 139 mL/min >60 [facility] Work Phone: Comment on above: GFR Calc Estimated GFR (MDRD) Non-Af Amer 115 mL/min >60 [facility] Work Phone: Comment on above: Non- GFR Calc Serum or plasma albumin aaron urement (mass/volume)on 12-25-2021 Albumin [Mass/Vol] 3.0 g/dL 3.2-5.0 [facility] Work Phone: Serum or plasma calcium aaron urement (mass/volume)on 12-25-2021 Calcium [Mass/Vol] 10.0 mg/dL 8.5-10.1 [facility] Work Phone: Serum or plasma cholesterol in HDL measurement (mass/volume)on 12-25-2021 Cholesterol in HDL [Mass/Vol] 46 mg/dL >40 [facility] Work Phone: Comment on above: The drugs N-Acetylcy steine and Metamizole may falsely depress this assay. Reference Range HDL <40 mg/dL Low HDL Cholesterol HDL >or= 60 mg/dL High HDL Cholesterol Serum or plasma cholesterol in VLDL measurement (mass/volume)on 12-25-2021 Cholesterol in VLDL [Mass/Vol] 23 mg/dL 5-40 [facility] Work Phone: Serum or plasma creatinine m easurement (mass/volume)on 12-25-2021 Creatinine [Mass/Vol] 0.54 mg/dL 0.55-1.02 [facility] Work Phone: Comment on above: The validity of the calculated GFR & GFRAA in patients over 70 years has not been determined. Clinical correlation is essential. Serum or plasma low density lipoprotein (LDL) cholesterol measurement (mass/volume)on 12-25-2021 Cholesterol in LDL [Mass/Vol] 44 mg/dL 0-130 [facility] Work Phone: Serum or plasma urea nitroge n measurement (mass/volume)on 12-25-2021 Urea nitrogen [Mass/Vol] 12 mg/dL 7-18 [facility] Work Phone: Thin prep Papanicolaou smear with manual screeningon 12-25-2021 Thin prep Papanicolaou smear with manual screening 12 U/L 15-37 [facility] Work Phone: Thin prep Papanicolaou smear with manual screening 2 5-15 [facility] Work Phone: Absolute lymphocyte counton 10-12-2021 Lymphocytes Auto (Unsp spec) [#/Vol] 0.84 10*3/uL 0.83-4.51 [facility] Work Phone: Basophil percentageon 2021 Basophils/100 WBC (Bld) 0.1 % 0-1 [facility] Work Phone: Chloride [Moles/Vol] 107 mmol/L 98-107 [facility] Work Phone: [phone] Eosinophils/100 WBC (Bld) 1.2 % 0-5 [facility] Work Phone: Glucose [Mass/Vol] 110 mg/dL 74-106 [facility] Work Phone: Comment on above: Fasting Glucose resu lt from 100 to 125 mg/dL suggests IMPAIRED HOMEOSTASIS per A.D.A. criteria. Neutrophils (Bld) [#/Vol] 5.2 10*3/uL 2.0-7.7 [facility] Work Phone: Neutrophils/100 WBC (Bld) 77.9 % 47-70 [facility] Work Phone: Potassium [Moles/Vol] 4.5 mmol/L 3.5-5.1 [facility] Work Phone: Comment on above: Slight Hemolysis, Re sult may be falsely increased. Sodium [Moles/Vol] 140 mmol/L 136-145 [facility] Work Phone: [phone] WBC (Bld) [#/Vol] 6.7 10*3/uL 4.4-11.0 [facility] Work Phone: Blood erythrocytes count (nu mber/volume)on 10-12-2021 RBC (Bld) [#/Vol] 4.54 10*6/uL 4.2-5.4 [facility] Work Phone: Blood hemoglobin measurement (mass/volume)on 10-12-2021 Hemoglobin (Bld) [Mass/Vol] 13.5 g/dL 12.0-15.0 [facility] Work Phone: [phone] Blood lymphocytes/100 leukoc yteson 10-12-2021 Lymphocytes/100 WBC (Bld) 12.5 % 19-41 [facility] Work Phone: [phone] Blood monocytes/100 leukocyt eson 10-12-2021 Monocytes/100 WBC (Bld) 7.9 % 0-10 [facility] Work Phone: Blood platelet mean volumeon 10-12-2021 Platelet mean volume (Bld) [Entitic vol] 9.5 fL 6.2-12.0 [facility] Work Phone: Determination of erythrocyte mean corpuscular volume (MCV)on 10-12-2021 MCV (RBC) [Entitic vol] 92.7 fL 81-99 [facility] Work Phone: Hematocrit Auto (Bld) [Volum e fraction]on 10-12-2021 Hematocrit (Bld) [Volume fraction] 42.1 % 37-47 [facility] Work Phone: Laboratory - Chemistry and C hemistry - challengeon 10-12-2021 CO2 [Moles/Vol] 33.0 mmol/L 21.0-32.0 [facility] Work Phone: Urea nitrogen/Creatinine [Mass ratio] 26.6 mg/mg 10-20 [facility] Work Phone: Laboratory - Hematology and Cell countson 10-12-2021 Erythrocyte distribution width (RBC) [Entitic vol] 42.5 fL 35.1-43.9 [facility] Work Phone: Erythrocyte distribution width (RBC) [Ratio] 12.6 % 11.6-14.6 [facility] Work Phone: Immature granulocytes/100 WBC (Bld) 0.400 % 0.0-0.9 [facility] Work Phone: Comment on above: IG% - Immature Granu locytes (promyelocytes, myelocytes and metamyelocytes) > 1% indicates that a LEFT SHIFT is Present. MCH (RBC) [Entitic mass] 29.7 pg 27.0-32.0 [facility] Work Phone: Nucleated RBC/100 WBC (Bld) [Ratio] 0 % 0-5 [facility] Work Phone: MCHC Auto (RBC) [Mass/Vol]on 10-12-2021 MCHC (RBC) [Mass/Vol] 32.1 g/dL 32-36 [facility] Work Phone: No Panel Informationon 10-12 Troponin I High Sensitivity 13 pg/mL 3.0-54.0 [facility] Work Phone: Comment on above: Please Note: New Vanessa t Units and Gender Specific Reference Ranges. For more information see Policy Stat Procedure [place] High Sensitivity Troponin (TNIH) and attachments. Estimated Creatinine Clearance Calc 73.85 ml/min [facility] Work Phone: Estimated GFR (MDRD) Amer 134 mL/min >60 [facility] Work Phone: Comment on above: GFR Calc Estimated GFR (MDRD) Non-Af Amer 111 mL/min >60 [facility] Work Phone: Comment on above: Non- GFR Calc Platelets bldon 10-12-2021 Platelets (Bld) [#/Vol] 209 10*3/uL 150-450 [facility] Work Phone: Serum or plasma calcium aaron urement (mass/volume)on 10-12-2021 Calcium [Mass/Vol] 10.1 mg/dL 8.5-10.1 [facility] Work Phone: Serum or plasma creatinine m easurement (mass/volume)on 10-12-2021 Creatinine [Mass/Vol] 0.56 mg/dL 0.55-1.02 [facility] Work Phone: Comment on above: The validity of the calculated GFR & GFRAA in patients over 70 years has not been determined. Clinical correlation is essential. Serum or plasma urea nitroge n measurement (mass/volume)on 10-12-2021 Urea nitrogen [Mass/Vol] 15 mg/dL 7-18 [facility] Work Phone: Thin prep Papanicolaou smear with manual screeningon 10-12-2021 Thin prep Papanicolaou smear with manual screening 0 5-15 [facility] Work Phone: Basophil percentageon 2021 Bilirubin [Mass/Vol] 0.60 mg/dL 0.20-1.00 [facility] Work Phone: Comment on above: For patients on eltr ombopag therapy, use of Dimension [place] TBIL is not recommended. Cholesterol [Mass/Vol] 109 mg/dL <200 [facility] Work Phone: Comment on above: <200 mg/dL Desirable 200-240 mg/dL Borderline >240 mg/dL High Risk Protein [Mass/Vol] 6.3 g/dL 6.4-8.2 [facility] Work Phone: Triglyceride [Mass/Vol] 139 mg/dL [facility] Work Phone: Comment on above: The drugs N-Acetylcy steine and Metamizole may falsely depress this assay.Serum Triglycerides Reference Interval Normal <150 mg/dL Borderline high 150 - 199 mg/dL High 200 - 499 mg/dL Very High > or = 500 mg/dL Direct bilirubinon 2 Bilirubin.direct [Mass/Vol] 0.19 mg/dL 0.00-0.30 [facility] Work Phone: Laboratory - Chemistry and C hemistry - challengeon 05-30-2021 ALP [Catalytic activity/Vol] 101 U/L 45-117 [facility] Work Phone: ALT [Catalytic activity/Vol] 20 U/L 13-56 [facility] Work Phone: Globulin (S) [Mass/Vol] 3.2 g/dL 2.2-4.2 [facility] Work Phone: Serum or plasma albumin aaron urement (mass/volume)on 05-30-2021 Albumin [Mass/Vol] 3.1 g/dL 3.2-5.0 [facility] Work Phone: Serum or plasma cholesterol in HDL measurement (mass/volume)on 05-30-2021 Cholesterol in HDL [Mass/Vol] 41 mg/dL [facility] Work Phone: Comment on above: The drugs N-Acetylcy steine and Metamizole may falsely depress this assay. Reference Range HDL <40 mg/dL Low HDL Cholesterol HDL >or= 60 mg/dL High HDL Cholesterol Serum or plasma cholesterol in VLDL measurement (mass/volume)on 05-30-2021 Cholesterol in VLDL [Mass/Vol] 28 mg/dL 5-40 [facility] Work Phone: Serum or plasma low density lipoprotein (LDL) cholesterol measurement (mass/volume)on 05-30-2021 Cholesterol in LDL [Mass/Vol] 40 mg/dL 0-130 [facility] Work Phone: Thin prep Papanicolaou smear with manual screeningon 05-30-2021 Thin prep Papanicolaou smear with manual screening 13 U/L 15-37 [facility] Work Phone: Lab Report: Basic Metabolic Profile (BMP)on 10-28-2016 Anion gap 4 mmol/L Low 5-[address] [facility] Work Phone: [phone] Anion gap molar conc 4 mmol/L Low 5-15 [facility] Work Phone: [phone] BUN/Creatinine Ratio 17.8 RATIO Invalid Interpretation Code 10-20 [facility] Work Phone: [phone] Calcium 9.8 mg/dL Invalid Interpretation Code 8.5-10.1 [facility] Work Phone: [phone] Chloride 107 mmol/L Invalid Interpretation Code 98-107 [facility] Work Phone: [phone] CO2 31.0 mmol/L Invalid Interpretation Code 21.0-32.0 [facility] Work Phone: [phone] CO2 ppres (BldV) 31.0 mmol/L 21.0-32.0 [facility] Work Phone: [phone] Creatinine 0.62 mg/dL Invalid Interpretation Code 0.55-1.[address] [facility] Work Phone: [phone] eGFR (non-black) 122 mL/min/{1.73_m2} Invalid Interpretation Code >[address] [facility] Work Phone: [phone] eGFR (non-black) 101 mL/min/{1.73_m2} Invalid Interpretation Code >[address] [facility] Work Phone: [phone] EST GFR - AA 122 mL/min >60 [facility] Work Phone: [phone] Glucose 98 mg/dL Invalid Interpretation Code 70-110 [facility] Work Phone: [phone] Glucose mass conc 98 mg/dL 70-110 [facility] Work Phone: [phone] Potassium 4.4 mmol/L Invalid Interpretation Code 3.5-5.1 [facility] Work Phone: [phone] Sodium 142 mmol/L Invalid Interpretation Code 136-145 [facility] Work Phone: [phone] Urea nitrogen 11 mg/dL Invalid Interpretation Code 7-18 [facility] Work Phone: [phone] Office Visit: [facility] 08-27-19 17 Fall risk assessment No Invalid Interpretation Code [facility] Work Phone: [phone] Office Visiton 11-27-2015 Documentation of current medications (procedure) Done Invalid Interpretation Code [facility] Work Phone: [phone] Protein mass conc Done [facility] Work Phone: [phone] 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 Left ventricular Ejection fraction 55 % Invalid Interpretation Code [facility] Work Phone: [phone] Clinical Lists Update: [facility] 10-26-2015 Alanine aminotransferase (ALT) 17 U/L Invalid Interpretation Code [facility] Work Phone: [phone] Albumin 2.8 g/dL Low [facility] Work Phone: [phone] Alkaline phosphatase (ALP) 121 U/L Invalid Interpretation Code [facility] Work Phone: [phone] ALP enzyme act/vol (Bld) 121 U/L [facility] Work Phone: [phone] Anion gap 6 mmol/L Invalid Interpretation Code [facility] Work Phone: [phone] Anion gap molar conc 6 mmol/L [facility] Work Phone: [phone] Aspartate aminotransferase (AST) 13 U/L Low [facility] Work Phone: [phone] Bilirubin (total) 0.60 mg/dL Invalid Interpretation Code [facility] Work Phone: [phone] BUN/Creatinine Ratio 18.2 mg/mg Invalid Interpretation Code [facility] Work Phone: [phone] Calcium 9.1 mg/dL Invalid Interpretation Code [facility] Work Phone: [phone] Chloride 105 mmol/L Invalid Interpretation Code [facility] Work Phone: [phone] Cholesterol 91 mg/dL Invalid Interpretation Code [facility] Work Phone: [phone] CO2 27.0 mmol/L Invalid Interpretation Code [facility] Work Phone: [phone] CO2 ppres (BldV) 27.0 mmol/L [facility] Work Phone: [phone] Creatinine 0.55 mg/dL Invalid Interpretation Code [facility] Work Phone: [phone] Globulin 3.3 g/dL Invalid Interpretation Code [facility] Work Phone: [phone] Globulin mass conc (S) 3.3 g/dL [facility] Work Phone: [phone] Glucose 102 mg/dL Invalid Interpretation Code [facility] Work Phone: [phone] Glucose mass conc 102 mg/dL [facility] Work Phone: [phone] HDL Cholesterol 36 mg/dL Low [facility] Work Phone: [phone] LDL Cholesterol 32 mg/dL Invalid Interpretation Code [facility] Work Phone: [phone] Potassium 3.8 mmol/L Invalid Interpretation Code [facility] Work Phone: [phone] Protein 6.1 g/dL Low [facility] Work Phone: [phone] Sodium 138 mmol/L Invalid Interpretation Code [facility] Work Phone: [phone] Triglyceride 116 mg/dL Invalid Interpretation Code [facility] Work Phone: [phone] Urea nitrogen 10 mg/dL Invalid Interpretation Code [facility] Work Phone: [phone] very low density lipoproteins 23 mg/dL Invalid Interpretation Code [facility] Work Phone: [phone] 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 Erythrocyte distribution width Ratio (RBC) 14.3 % [facility] Work Phone: [phone] Erythrocytes (RBC) 4.74 10*6/uL Invalid Interpretation Code [facility] Work Phone: [phone] Hematocrit (HCT) 40.1 % Invalid Interpretation Code [facility] Work Phone: [phone] Hematocrit Volume Fraction (Bld) 40.1 % [facility] Work Phone: [phone] Hemoglobin (HGB) 12.5 g/dL Invalid Interpretation Code [facility] Work Phone: [phone] MCH 26.4 pg Low [facility] Work Phone: [phone] MCH Entitic mass (RBC) 26.4 pg Low [facility] Work Phone: [phone] MCHC 31.2 g/dL Low [facility] Work Phone: [phone] MCHC mass conc (RBC) 31.2 g/dL Low [facility] Work Phone: [phone] MCV 84.6 fL Invalid Interpretation Code [facility] Work Phone: [phone] MCV Entitic volume (RBC) 84.6 fL [facility] Work Phone: [phone] Platelet mean volume Entitic volume (Bld) 9.3 fL [facility] Work Phone: [phone] Platelets 212 10*3/mm3 Invalid Interpretation Code [facility] Work Phone: [phone] Platelets #/vol (Bld) 212 10*3/mm3 [facility] Work Phone: [phone] PMV by Gabe 9.3 fL Invalid Interpretation Code [facility] Work Phone: [phone] RBC #/vol (Bld) 4.74 10*6/uL [facility] Work Phone: [phone] RDW-CA 14.3 % Invalid Interpretation Code [facility] Work Phone: [phone] WBC #/vol (Bld) 6.4 10*3/uL [facility] Work Phone: [phone] WBC (Leukocytes) 6.4 10*3/uL Invalid Interpretation Code [facility] Work Phone: [phone] Lab Report: Liver Profileon 06-25-2015 Bilirubin (direct) 0.12 mg/dL Invalid Interpretation Code 0.00-0.30 [facility] Work Phone: [phone] Globulin 3.9 g/dL High 2.3-3.5 [facility] Work Phone: [phone] Globulin mass conc (S) 3.9 g/dL High 2.3-3.5 [facility] Work Phone: [phone] Office Visit: [facility] 03-28-19 16 Tobacco smoking status NHIS Never smoker [facility] Work Phone: [phone] Tobacco use [facility] Never smoker Invalid Interpretation Code [facility] Work Phone: [phone] Office Visit: [facility] 03-01-20 14 cardiac risk group C Invalid Interpretation Code [facility] Work Phone: [phone] General cardiovascular disease 10Y risk [#] [place]'Agost[place] N/A Invalid Interpretation Code [facility] Work Phone: [phone] Tobacco smoking status VAIS Never Invalid Interpretation Code [facility] Work Phone: [phone] Replaced Document: [place] ANDA Observationson 03-01-2014 EKG QRS axis -32 deg [facility] Work Phone: [phone] electrocardiogram interpretation Sinus Rhythm -RSR(V1) -nondiagnostic. PROBABLY NORMAL Invalid Interpretation Code [facility] Work Phone: [phone] GE use only - for [employer] import when terms are not otherwise specified 406 ms Invalid Interpretation Code [facility] Work Phone: [phone] Interpretation Sinus Rhythm -RSR(V1 ) -nondiagnostic. PROBABLY NORMAL [facility] Work Phone: [phone] P [place] 60 deg [facility] Work Phone: [phone] P wave axis, electrocardiogram 60 deg Invalid Interpretation Code [facility] Work Phone: [phone] ND Interval 132 ms [facility] Work Phone: [phone] ND interval, electrocardiogram 132 ms Invalid Interpretation Code [facility] Work Phone: [phone] Pulse (Heart Rate) 73 /min Invalid Interpretation Code [facility] Work Phone: [phone] QRS axis, electrocardiogram -32 deg Invalid Interpretation Code [facility] Work Phone: [phone] QRS Duration 102 ms [facility] Work Phone: [phone] QRS duration, electrocardiogram 102 ms Invalid Interpretation Code [facility] Work Phone: [phone] QT Interval new path ms [facility] Work Phone: [phone] QT interval, electrocardiogram new path ms Invalid Interpretation Code [facility] Work Phone: [phone] QTc [place] 406 ms [facility] Work Phone: [phone] T [place] 10 deg [facility] Work Phone: [phone] T wave axis, electrocardiogram 10 deg Invalid Interpretation Code [facility] Work Phone: [phone] Lab Report: TROPon 2 Troponin I ng/mL Normal <0.06 [facility] Work Phone: [phone] Vital Signs Date Time Vital Sign Value Performing Clinician Faci lity 11-30-2024 16:11-0400 Body temperature 97.2 [degF] Dr. Lilly Fletcher MD Work Phone: [facility] 11-30-2024 16:11-0400 Diastolic blood pressure 84 mm[Hg] Dr. Lilly Fletcher MD Work Phone: [facility] 11-30-2024 16:11-0400 Heart rate 86 /min Dr. Lilly Fletcher MD Work Phone: [facility] 11-30-2024 16:11-0400 Inhaled oxygen flow rate 2 L/min Dr. Lilly Fletcher MD Work Phone: [facility] 11-30-2024 16:11-0400 Respiratory rate 18 /min Dr. Lilly Fletcher MD Work Phone: [facility] 11-30-2024 16:11-0400 SaO2% (BldA) [Mass fraction] 98 % Dr. Lilly Fletcher MD Work Phone: [facility] 11-30-2024 16:11-0400 Systolic blood pressure 113 mm[Hg] Dr. Lilly Fletcher MD Work Phone: [facility] 11-30-2024 08:19-0400 Body temperature 97.6 [degF] Dr. Lilly Fletcher MD Work Phone: 5(290)269-230161 [place] [address] 11-30-2024 08:19-0400 Diastolic blood pressure 58 mm[Hg] Dr. Lilly Fletcher MD Work Phone: 5(524)267-827454 [place] [address] 11-30-2024 08:19-0400 Heart rate 70 /min Dr. Lilly Fletcher MD Work Phone: 5(032)803-445061 [place] [address] 11-30-2024 08:19-0400 Inhaled oxygen flow rate 2 L/min Dr. Lilly Fletcher MD Work Phone: 2(331)630-016161 [place] [address] 11-30-2024 08:19-0400 Respiratory rate 15 /min Dr. Lilly Fletcher MD Work Phone: 2(560)581-163661 [place] [address] 11-30-2024 08:19-0400 SaO2% (BldA) [Mass fraction] 100 % Dr. Lilly Fletcher MD Work Phone: 3(640)559-261461 [place] [address] 11-30-2024 08:19-0400 Systolic blood pressure 132 mm[Hg] Dr. Lilly Fletcher MD Work Phone: 7(413)643-373561 [place] [address] 11-30-2024 05:16-0400 Body mass index (BMI) [Ratio] 41.8 kg/m2 Dr. Lilly Fletcher MD Work Phone: 2(319)327-816954 [place] [address] 11-30-2024 05:16-0400 Body weight 94.[address] Lilly Fletcher MD Work Phone: 5(984)188-046261 [place] [address] 11-26-2024 21:47-0400 Body height 149.[address] Lilly Fletcher MD Work Phone: 9(978)750-283361 [place] [address] 10-26-2024 14:55-0400 Body temperature 97.6 [degF] Dr. Lilly Fletcher MD Work Phone: 4(148)469-295454 [place] [address] 10-26-2024 14:55-0400 Diastolic blood pressure 78 mm[Hg] Dr. Lilly Fletcher MD Work Phone: 4(115)904-012754 [place] [address] 10-26-2024 14:55-0400 Heart rate 88 /min Dr. Lilly Fletcher MD Work Phone: 4(679)859-330661 [place] [address] 10-26-2024 14:55-0400 Respiratory rate 18 /min Dr. Lilly Fletcher MD Work Phone: 3(686)881-123861 [place] [address] 10-26-2024 14:55-0400 SaO2% (BldA) [Mass fraction] 95 % Dr. Lilly Fletcher MD Work Phone: 5(414)534-482361 [place] [address] 10-26-2024 14:55-0400 Systolic blood pressure 122 mm[Hg] Dr. Lilly Fletcher MD Work Phone: 1(348)891-752161 [place] [address] 10-26-2024 08:09-0400 Inhaled oxygen flow rate 2 L/min Dr. Lilly Fletcher MD Work Phone: 9(499)861-423361 [place] [address] 10-26-2024 04:21-0400 Body mass index (BMI) [Ratio] 36.9 kg/m2 Dr. Lilly Fletcher MD Work Phone: 3(056)545-284561 [place] [address] 10-26-2024 04:21-0400 Body weight [address] Lilly Fletcher MD Work Phone: 4(829)454-070661 [place] [address] 10-25-2024 17:43-0400 Body height 149.[address] Lilly Fletcher MD Work Phone: 3(876)014-290561 [place] [address] 10-25-2024 17:00-0400 Diastolic blood pressure 70 mm[Hg] Dr. Lilly Fletcher MD Work Phone: 7(257)286-905961 [place] [address] 10-25-2024 17:00-0400 Heart rate 65 /min Dr. Lilly Fletcher MD Work Phone: 9(656)104-863361 [place] [address] 10-25-2024 17:00-0400 SaO2% (BldA) [Mass fraction] 100 % Dr. Lilly Fletcher MD Work Phone: 9(978)928-387061 [place] [address] 10-25-2024 17:00-0400 Systolic blood pressure 128 mm[Hg] Dr. Lilly Fletcher MD Work Phone: [facility] 10-25-2024 16:17-0400 Body temperature 98 [degF] Dr. Lilly Fletcher MD Work Phone: [facility] 10-25-2024 16:17-0400 Respiratory rate 18 /min Dr. Lilly Fletcher MD Work Phone: 9(875)046-484254 [place] [address] 10-25-2024 12:05-0400 Body height 149.[address] Lilly Fletcher MD Work Phone: 9(859)691-880171 [address] 10-25-2024 12:05-0400 Body mass index (BMI) [Ratio] 42.3 kg/m2 Dr. Lilly Fletcher MD Work Phone: 1(518)748-125471 [address] 10-25-2024 12:05-0400 Body weight 94.[address] Lilly Fletcher MD Work Phone: [facility] 10-21-2024 15:18-0400 Body temperature 97.9 [degF] Dr. Lilly Fletcher MD Work Phone: [facility] 10-21-2024 15:18-0400 Diastolic blood pressure 81 mm[Hg] Dr. Lilly Fletcher MD Work Phone: 3(396)761-085854 [place] [address] 10-21-2024 15:18-0400 Heart rate 85 /min Dr. Lilly Fletcher MD Work Phone: [facility] 10-21-2024 15:18-0400 Respiratory rate 20 /min Dr. Lilly Fletcher MD Work Phone: [facility] 10-21-2024 15:18-0400 SaO2% (BldA) [Mass fraction] 94 % Dr. Lilly Fletcher MD Work Phone: [facility] 10-21-2024 15:18-0400 Systolic blood pressure 170 mm[Hg] Dr. Lilly Fletcher MD Work Phone: 3(343)619-581381 [place] [address] 10-21-2024 09:41-0400 Body height 149.[address] Lilly Fletcher MD Work Phone: [facility] 10-21-2024 09:41-0400 Body mass index (BMI) [Ratio] 43.7 kg/m2 Dr. Lilly Fletcher MD Work Phone: [facility] 10-21-2024 09:41-0400 Body weight 98.[address] Lilly Fletcher MD Work Phone: [facility] 09-09-2024 23:08-0400 Body temperature 98.2 [degF] Dr. Lilly Fletcher MD Work Phone: [facility] 09-09-2024 23:08-0400 Diastolic blood pressure 80 mm[Hg] Dr. Lilly Fletcher MD Work Phone: [facility] 09-09-2024 23:08-0400 Heart rate 59 /min Dr. Lilly Fletcher MD Work Phone: [facility] 09-09-2024 23:08-0400 Respiratory rate 18 /min Dr. Lilly Fletcher MD Work Phone: [facility] 09-09-2024 23:08-0400 SaO2% (BldA) [Mass fraction] 94 % Dr. Lilly Fletcher MD Work Phone: [facility] 09-09-2024 23:08-0400 Systolic blood pressure 163 mm[Hg] Dr. Lilly Fletcher MD Work Phone: [facility] 09-09-2024 20:06-0400 Body height 149.[address] Lilly Fletcher MD Work Phone: [facility] 09-09-2024 20:06-0400 Body mass index (BMI) [Ratio] 43.7 kg/m2 Dr. Lilly Fletcher MD Work Phone: [facility] 09-09-2024 20:06-0400 Body weight 98.[address] Lilly Fletcher MD Work Phone: [facility] 09-05-2024 16:01-0400 Body height 149.[address] Lilly Fletcher MD Work Phone: [facility] 09-05-2024 16:01-0400 Body mass index (BMI) [Ratio] 42 kg/m2 Dr. Lilly Fletcher MD Work Phone: [facility] 09-05-2024 16:01-0400 Body weight 94.[address] Lilly Fletcher MD Work Phone: [facility] 09-05-2024 16:01-0400 Diastolic blood pressure 82 mm[Hg] Dr. Lilly Fletcher MD Work Phone: [facility] 09-05-2024 16:01-0400 Heart rate 66 /min Dr. Lilly Fletcher MD Work Phone: [facility] 09-05-2024 16:01-0400 Respiratory rate 18 /min Dr. Lilly Fletcher MD Work Phone: [facility] 09-05-2024 16:01-0400 Systolic blood pressure 142 mm[Hg] Dr. Lilly Fletcher MD Work Phone: [facility] 08-15-2024 15:31-0400 Body height 149.[address] Lilly Fletcher MD Work Phone: [facility] 08-15-2024 15:31-0400 Body mass index (BMI) [Ratio] 41.3 kg/m2 Dr. Lilly Fletcher MD Work Phone: [facility] 08-15-2024 15:31-0400 Body weight 92.[address] Lilly Fletcher MD Work Phone: [facility] 08-15-2024 15:31-0400 Diastolic blood pressure 66 mm[Hg] Dr. Lilly Fletcher MD Work Phone: [facility] 08-15-2024 15:31-0400 Heart rate 74 /min Dr. Lilly Fletcher MD Work Phone: [facility] 08-15-2024 15:31-0400 Respiratory rate 20 /min Dr. Lilly Fletcher MD Work Phone: [facility] 08-15-2024 15:31-0400 Systolic blood pressure 142 mm[Hg] Dr. Lilly Fletcher MD Work Phone: 2(112)271-359854 [place] [address] 08-02-2024 06:53-0400 Body temperature 97.8 [degF] Dr. Lilly Fletcher MD Work Phone: [facility] 08-02-2024 06:53-0400 Diastolic blood pressure 62 mm[Hg] Dr. Lilly Fletcher MD Work Phone: 7(632)456-373854 [place] [address] 08-02-2024 06:53-0400 Heart rate 67 /min Dr. Lilly Fletcher MD Work Phone: 0(255)135-725854 [place] [address] 08-02-2024 06:53-0400 Respiratory rate 18 /min Dr. Lilly Fletcher MD Work Phone: [facility] 08-02-2024 06:53-0400 SaO2% (BldA) [Mass fraction] 95 % Dr. Lilly Fletcher MD Work Phone: 9(634)143-299554 [place] [address] 08-02-2024 06:53-0400 Systolic blood pressure 140 mm[Hg] Dr. Lilly Fletcher MD Work Phone: 5(636)316-802654 [place] [address] 08-02-2024 03:44-0400 Body height 149.[address] Lilly Fletcher MD Work Phone: [facility] 08-02-2024 03:44-0400 Body mass index (BMI) [Ratio] 42.5 kg/m2 Dr. Lilly Fletcher MD Work Phone: 8(023)049-025954 [place] [address] 08-02-2024 03:44-0400 Body weight 95.[address] Lilly Fletcher MD Work Phone: [facility] 06-18-2024 21:58-0400 Body temperature 98.1 [degF] Dr. Lilly Fletcher MD Work Phone: [facility] 06-18-2024 21:58-0400 Diastolic blood pressure 60 mm[Hg] Dr. Lilly Fletcher MD Work Phone: [facility] 06-18-2024 21:58-0400 Heart rate 91 /min Dr. Lilly Fletcher MD Work Phone: 1(637)767-862054 [place] [address] 06-18-2024 21:58-0400 Respiratory rate 16 /min Dr. Lilly Fletcher MD Work Phone: [facility] 06-18-2024 21:58-0400 SaO2% (BldA) [Mass fraction] 97 % Dr. Lilly Fletcher MD Work Phone: 0(017)961-501054 [place] [address] 06-18-2024 21:58-0400 Systolic blood pressure 116 mm[Hg] Dr. Lilly Fletcher MD Work Phone: 2(059)871-667571 [address] 06-18-2024 20:34-0400 Body height 149.[address] Lilly Fletcher MD Work Phone: 7(356)957-063971 [address] 06-18-2024 20:34-0400 Body mass index (BMI) [Ratio] 43.2 kg/m2 Dr. Lilly Fletcher MD Work Phone: 1(051)931-515254 [place] [address] 06-18-2024 20:34-0400 Body weight 97.[address] Lilly Fletcher MD Work Phone: 2(637)013-981554 [place] [address] 03-25-2023 16:24-0500 Body height 149.[address] Lilly Fletcher Work Phone: 0(254)446-313554 [place] [address] 03-25-2023 16:24-0500 Body mass index (BMI) [Ratio] 43 kg/m2 Dr. Lilly Fletcher Work Phone: 0(250)743-478054 [place] [address] 03-25-2023 16:24-0500 Body temperature 97.8 [degF] Dr. Lilly Fletcher Work Phone: 2(727)705-858954 [place] [address] 03-25-2023 16:24-0500 Body weight 96.[address] Lilly Fletcher Work Phone: [facility] 03-25-2023 16:24-0500 Diastolic blood pressure 90 mm[Hg] Dr. Lilly Fletcher Work Phone: [facility] 03-25-2023 16:24-0500 Heart rate 82 /min Dr. Lilly Fltecher Work Phone: [facility] 03-25-2023 16:24-0500 Respiratory rate 20 /min Dr. Lilly Fletcher Work Phone: [facility] 03-25-2023 16:24-0500 SaO2% (BldA) [Mass fraction] 95 % Dr. Lilly Fletcher Work Phone: [facility] 03-25-2023 16:24-0500 Systolic blood pressure 152 mm[Hg] Dr. Lilly Fletcher Work Phone: [facility] 02-02-2023 10:11-0500 Body height 149.[address] Lilly Fletcher Work Phone: [facility] 02-02-2023 10:11-0500 Body mass index (BMI) [Ratio] 43.8 kg/m2 Dr. Lilly Fletcher Work Phone: [facility] 02-02-2023 10:11-0500 Body weight 98.[address] Lilly Fletcher Work Phone: [facility] 02-02-2023 10:11-0500 Diastolic blood pressure 73 mm[Hg] Dr. Lilly Fletcher Work Phone: [facility] 02-02-2023 10:11-0500 Heart rate 87 /min Dr. Lilly Fletcher Work Phone: [facility] 02-02-2023 10:11-0500 Respiratory rate 18 /min Dr. Llily Fletcher Work Phone: [facility] 02-02-2023 10:11-0500 SaO2% (BldA) [Mass fraction] 94 % Dr. Lilly Fletcher Work Phone: [facility] 02-02-2023 10:11-0500 Systolic blood pressure 137 mm[Hg] Dr. Lilly Fletcher Work Phone: [facility] 10-31-2021 10:51-0400 Body height 147.[address] Lilly Fletcher Work Phone: [facility] Work Phone: 10-31-2021 10:51-0400 Body mass index (BMI) [Ratio] 44.5 kg/m2 Dr. Lilly Fletcher Work Phone: [facility] Work Phone: 10-31-2021 10:51-0400 Body weight 96.[address] Lilly Fletcher Work Phone: [facility] Work Phone: 10-31-2021 10:51-0400 Diastolic blood pressure 90 mm[Hg] Dr. Lilly Fletcher Work Phone: [facility] Work Phone: 10-31-2021 10:51-0400 Heart rate 67 /min Dr. Lilly Fletcher Work Phone: [facility] Work Phone: 10-31-2021 10:51-0400 Respiratory rate 20 /min Dr. Lilly Fletcher Work Phone: [facility] Work Phone: 10-31-2021 10:51-0400 SaO2% (BldA) [Mass fraction] 94 % Dr. Lilly Fletcher Work Phone: [facility] Work Phone: 10-31-2021 10:51-0400 Systolic blood pressure 157 mm[Hg] Dr. Lilly Fletcher Work Phone: [facility] Work Phone: 10-12-2021 18:12-0400 Diastolic blood pressure 98 mm[Hg] [facility] Work Phone: 10-12-2021 18:12-0400 Heart rate 66 /min [facility] Work Phone: 10-12-2021 18:12-0400 Respiratory rate 17 /min [facility] Work Phone: 10-12-2021 18:12-0400 SaO2% (BldA) [Mass fraction] 97 % [facility] Work Phone: 10-12-2021 18:12-0400 Systolic blood pressure 169 mm[Hg] [facility] Work Phone: 10-12-2021 13:21-0400 Body height 147.32 cm [facility] Work Phone: 10-12-2021 13:21-0400 Body mass index (BMI) [Ratio] 45.7 kg/m2 [facility] Work Phone: 10-12-2021 13:21-0400 Body temperature 98.1 [degF] [facility] Work Phone: 10-12-2021 13:21-0400 Body weight 99.3 kg [facility] Work Phone: 04-18-2021 07:35-0500 Body height 152.[address] Lilly Fletcher Work Phone: [facility] Work Phone: 04-18-2021 07:35-0500 Body mass index (BMI) [Ratio] 40.8 kg/m2 Dr. Lilly Fletcher Work Phone: [facility] Work Phone: 04-18-2021 07:35-0500 Body weight 95.[address] Lilly Fletcher Work Phone: [facility] Work Phone: 04-18-2021 07:35-0500 Diastolic blood pressure 84 mm[Hg] Dr. Lilly Fletcher Work Phone: [facility] Work Phone: 04-18-2021 07:35-0500 Heart rate 82 /min Dr. Lilly Fletcher Work Phone: [facility] Work Phone: 04-18-2021 07:35-0500 Respiratory rate 18 /min Dr. Lilly Fletcher Work Phone: [facility] Work Phone: 04-18-2021 07:35-0500 SaO2% (BldA) [Mass fraction] 95 % Dr. Lilly Fletcher Work Phone: [facility] Work Phone: 04-18-2021 07:35-0500 Systolic blood pressure 132 mm[Hg] Dr. Lilly Fletcher Work Phone: [facility] Work Phone: 10-28-2016 11:34-0400 BP Diastolic 108 mm[Hg] Harumi DeFinis [facility] Work Phone: 10-28-2016 11:34-0400 BP Systolic 150 mm[Hg] Harumi DeFinis [facility] Work Phone: 10-28-2016 11:34-0400 Pulse (Heart Rate) 76 /min [facility] DeFinis [facility] Work Phone: 10-28-2016 11:34-0400 Respiratory Rate 20 /min Harumi DeFinis [facility] Work Phone: 09-24-2016 11:42-0400 BP Diastolic 90 mm[Hg] Harumi DeFinis [facility] Work Phone: 09-24-2016 11:42-0400 BP Systolic 148 mm[Hg] Harumi DeFinis [facility] Work Phone: 09-24-2016 11:42-0400 Pulse (Heart Rate) 64 /min Harumi DeFinis [facility] Work Phone: 09-24-2016 11:42-0400 Respiratory Rate 20 /min Harumi DeFinis [facility] Work Phone: 09-08-2016 11:25-0400 BP Diastolic 90 mm[Hg] [facility]umi DeFinkatie [facility] Work Phone: 09-08-2016 11:25-0400 BP Systolic 160 mm[Hg] Harumi DeFinis [facility] Work Phone: 09-08-2016 11:25-0400 Pulse (Heart Rate) 72 /min Harumi DeFinis [facility] Work Phone: 09-08-2016 11:25-0400 Respiratory Rate 20 /min Harumi DeFinkatie [facility] Work Phone: 08-26-2016 11:40-0400 BMI (Body Mass Index) 42.65 kg/m2 [facility] Work Phone: 08-26-2016 11:40-0400 BP Diastolic 74 mm[Hg] Elie Davis MD [facility] Work Phone: 08-26-2016 11:40-0400 BP Systolic 160 mm[Hg] Elie Davis MD [facility] Work Phone: 08-26-2016 11:40-0400 Height 152.4 cm Elie Davis MD [facility] Work Phone: 08-26-2016 11:40-0400 Pulse (Heart Rate) 72 /min Elie Davis MD [facility] Work Phone: 08-26-2016 11:40-0400 Respiratory Rate 20 /min Elie Davis MD [facility] Work Phone: 08-26-2016 11:40-0400 Weight 99.07 kg Elie Davis MD [facility] Work Phone: 11-27-2015 15:03-0400 BSA (Body Surface Area) 1.95 m2 Elie Davis MD [facility] Work Phone: 03-01-2014 09:21-0500 Heart rate 73 /min Harumi Iman [facility] Work Phone: Encounters Encounter Date Encounter Type Care Provider Facility Start: 01-10-2025 Evaluation and management of inpatient Lino Gruber Facility:[facility] Start: 01-10-2025 ambulatory Lino Gruber Facility:[facility] Start: 01-08-2025 ambulatory Mateusz Didi Shannon ty:[facility] Start: 01-03-2025 ambulatory [facility] lity:[facility] Start: 12-22-2024 ambulatory [facility] lity:[facility] Start: 12-19-2024 ambulatory [facility] lity:[facility] Start: 11-30-2024 Dr. Paul Lauren MD -[facility] Work Phone: Start: 11-29-2024 Dr. Paul Lauren MD -[facility] Work Phone: Start: 11-28-2024 Dr. Paul Lauren MD -[facility] Work Phone: Start: 11-27-2024 Dr. Paul Lauren MD -[facility] Work Phone: Start: 11-26-2024 End: 11-30-2024 ambulatory [facility] Facility:[facility] Start: 11-26-2024 End: 11-30-[address] Lilly Fletcher MD Work Phone: -Medical Surgical 3 Start: 11-26-2024 End: 11-30-2024 Dr. Paul Lauren MD -[facility] 3 Work Phone: Start: 10-26-2024 Dr. Seth Flores MD -[facility] Work Phone: Start: 10-26-2024 Non-patient / Non-visit Dr. Franko cadena MD -[facility] Start: 10-26-2024 Dr. Franko Franco MD -[facility] Start: 10-26-2024 ambulatory [facility] lity:[facility] Start: 10-25-2024 End: 10-26-2024 ambulatory Brayan Thompson Facility:[facility] Start: 10-25-2024 End: 10-26-2024 Evaluation and management of inpatient Dr. Aranza Little MD -Progressive Care Unit Work Phone: Start: 10-25-2024 End: 10-26-[address] Lilly Fletcher MD Work Phone: -Progressive Care Unit Start: 10-25-2024 End: 10-26-2024 Dr. Seth Flores MD -Progressive Care Unit Work Phone: Start: 10-21-2024 End: 10-21-2024 Dr. Donovan Pierson DO -Emergency [facility] Work Phone: Start: 10-21-2024 End: 10-21-2024 Emergency department patient visit Dr. Lilly Fletcher MD Work Phone: -Emergency Department Work Phone: Start: 10-14-2024 End: 10-14-2024 Patient encounter procedure Ginger Grace RESEARCH SUPPORT SPECIALIST-C -[facility] Work Phone: Start: 10-14-2024 End: 10-14-2024 Ginger Grace RESEARCH SUPPORT SPECIALIST-C -[facility] Work Phone: Start: 10-14-2024 End: 10-14-[address] Lilly Fletcher MD Work Phone: -[facility] Start: 10-01-2024 End: 10-01-[address] Lilly Fletcher MD Work Phone: -Laboratory Start: 10-01-2024 End: 10-01-2024 Patient encounter procedure Kale Ansari RESEARCH SUPPORT SPECIALIST-C -Laboratory Work Phone: Start: 10-01-2024 End: 10-01-2024 Kale Ansari RESEARCH SUPPORT SPECIALIST-C -Laboratory Work Phone: Start: 10-01-2024 End: 10-01-2024 ambulatory No Primary Care Physician Facility:[facility] Start: 09-14-2024 ambulatory Kale Ansari RESEARCH SUPPORT SPECIALIST Facility :[facility] Start: 09-09-2024 End: 09-09-2024 Emergency department patient visit Dr. Lilly Fletcher MD Work Phone: -Emergency Department Work Phone: Start: 09-09-2024 End: 09-09-2024 Dr. Donovan Pierson DO -Emergency Departwv nt Work Phone: Start: 09-05-2024 End: 09-05-2024 Patient encounter procedure Kale Ansari RESEARCH SUPPORT SPECIALIST-C -[facility] Work Phone: Start: 09-05-2024 End: 09-05-2024 Kale Ansari RESEARCH SUPPORT SPECIALIST-C -[facility] Work Phone: Start: 09-05-2024 End: 09-05-[address] Lilly Fletcher MD Work Phone: -[facility] Start: 08-29-2024 ambulatory Elie Davis Facility:[facility] Start: 08-29-2024 Dr. Elie Davis MD -[facility] Work Phone: Start: 08-29-2024 ambulatory Kale Ansari RESEARCH SUPPORT SPECIALIST Facility :[facility] Start: 08-29-2024 Registered Referred Kale Ansari RESEARCH SUPPORT SPECIALIST-C -Cardiovascular Services Work Phone: Start: 08-29-2024 Kale Ansari RESEARCH SUPPORT SPECIALIST-C -Cardi ovascular Services Work Phone: Start: 08-15-2024 End: 08-15-2024 Patient encounter procedure Kale Ansari RESEARCH SUPPORT SPECIALIST-C -[facility] Work Phone: Start: 08-15-2024 End: 08-15-2024 Kale Ansari RESEARCH SUPPORT SPECIALIST-C -[facility] Work Phone: Start: 08-15-2024 End: 08-15-[address] Lilly Fletcher MD Work Phone: [facility] Work Phone: Start: 08-02-2024 End: 08-02-2024 Dr. Jaylen Jack DO -Emergency Departwv nt Work Phone: Start: 08-02-2024 End: 08-02-2024 Emergency department patient visit Dr. Lilly Fletcher MD Work Phone: -Emergency Department Work Phone: Start: 06-18-2024 End: 06-18-2024 Emergency department patient visit Dr. Lilly Fletcher MD Work Phone: -Emergency Department Work Phone: Start: 03-25-2023 End: 03-25-[address] Lilly Fletcher Work Phone: [facility] Work Phone: Start: 03-25-2023 End: 03-25-[address] Lilly Fletcher Work Phone: [facility] Work Phone: Start: 02-02-2023 End: 02-02-[address] Lilly Fletcher Work Phone: [facility] Work Phone: Start: 02-02-2023 End: 02-02-[address] Lilly Fletcher Work Phone: [facility] Work Phone: Start: 01-07-2022 End: 01-07-[address] Lilly Fletcher Work Phone: [facility] Work Phone: Start: 01-07-2022 End: 01-07-[address] Lilly Fletcher Work Phone: [facility]-Laboratory Start: 12-25-2021 End: 12-25-[address] Lilly Fletcher Work Phone: [facility] Work Phone: Start: 12-25-2021 End: 12-25-[address] Lilly Fletcher Work Phone: [facility]-Laboratory Start: 11-20-2021 Non-patient / Non-visit Dr. Bella Fletcher Work Phone: [facility] Start: 11-20-2021 End: 11-20-[address] Lilly Fletcher Work Phone: [facility] Work Phone: Start: 11-20-2021 End: 11-20-[address] Lilly Fletcher Work Phone: [facility]-Cardiovascula r Services Start: 11-07-2021 End: 11-07-[address] Lilly Fletcher Work Phone: [facility] Work Phone: Start: 11-07-2021 End: 11-07-[address] Lilly Fletcher Work Phone: [facility]-Pulmonary Services/Neurology Start: 10-31-2021 End: 10-31-[address] Lilly Fletcher Work Phone: [facility] Start: 10-12-2021 End: 10-12-2021 [facility] [facility] Start: 05-30-2021 End: 05-30-[address] Lilly Fletcher Work Phone: [facility] Start: 05-08-2021 Non-patient / Non-visit Dr. Bella Fletcher Work Phone: [facility] Start: 05-08-2021 End: 05-08-[address] Lilly Fletcher Work Phone: [facility] Start: 04-18-2021 End: 04-18-[address] Lilly Fletcher Work Phone: [facility] Procedures Date Procedure Procedure Detail Performing Clinician Start: 11-28-2024 Plain chest X-ray Dr. Preston Fletcher MD Work Phone: Start: 11-28-2024 Blood count smear rscp w/mnl difrntl wbc count Dr. Lilly [...] Start: 11-26-[address] Lilly Fletcehr MD Work Phone: Start: 11-26-2024 Urnls dip [...] Work Phone: Start: 09-09-2024 Blood count smear rscp w/mnl difrntl wbc count Dr. Lilly [...] Start: 09-24-2016 End: 10-28-2016 *BMP Kale Ansari RESEARCH SUPPORT SPECIALIST Work Phone: Start: 09-24-2016 End: 09-24-2016 Follow Up BP Check Elie Davis MD Start: 08-26-2016 End: 09-08-2016 *BMP Kale Ansari RESEARCH SUPPORT SPECIALIST Work Phone: Start: 08-26-2016 End: 08-27-2016 ANATOMICAL EMBALMER Kale Ansari RESEARCH SUPPORT SPECIALIST Work Phone: Start: 08-26-2016 End: 08-27-2016 Follow Up Appt 6 months Kale H Coty RESEARCH SUPPORT SPECIALIST Work Phone: Start: 08-26-2016 End: 09-08-2016 Follow Up BP Check Kale H Coty RESEARCH SUPPORT SPECIALIST Work Phone: Start: 11-27-2015 End: 11-27-2015 Follow Up Appt 6 months Willis Lara Start: 11-27-2015 End: 11-27-2015 MMM Elie Davis MD Start: 11-22-2015 End: 11-29-2015 Lipid panel [AGGREGATE] Viiven lopez PA-C Work Phone: Start: 06-15-2015 End: 06-25-2015 *Hepatic Function Panel Vivien lopez PA-C Work Phone: Start: 06-15-2015 End: 06-25-2015 Lipid panel [AGGREGATE] Vivien lopez PA-C Work Phone: Start: 03-28-2015 End: 03-28-2015 ANATOMICAL EMBALMER Vivien Haynes PA-C Work Phone: Start: 03-28-2015 [...] Elie Davis MD Start: 09-12-2014 End: 09-12-2014 MM Elie Davis MD Start: 05-24-2014 End: 05-29-2014 *Hepatic Function Panel Willis Lara Start: 05-24-2014 End: 05-29-2014 Lipid panel [AGGREGATE] Willis Lara Start: 03-01-2014 End: 03-01-2014 ANATOMICAL EMBALMER Vivien Haynes PA-C Work Phone: Start: 03-01-2014 [...] months Willis Lara Start: 07-20-2013 End: 07-20-2013 MMM Elie Davis MD Start: 04-02-2013 End: 05-12-2013 *Hepatic Function Panel Willis Lara Start: 04-02-2013 End: 05-12-2013 Lipid panel [AGGREGATE] Willis Lara Start: 12-07-2012 End: 12-07-2012 ANATOMICAL EMBALMER Vivien Haynes PA-C Work Phone: Start: 12-07-2012 [...] Activity Detail Author Start: 11-30-2024 Patient discharge [facility] Start: 11-26-2024 Assessment of risk of venous thromboembolism [facility] Start: 11-26-2024 Insertion of catheter into peripheral vein [facility] Start: 11-26-2024 Measuring intake and output [facility] Start: 11-26-2024 Oxygen therapy [facility] Start: 11-26-2024 Providing care according to standard [facility] Start: 11-26-2024 Provision of activity privileges [facility] Start: 11-26-2024 Referral for physical therapy [facility] Start: 11-26-2024 Referral to occupational therapist [facility] Start: 11-26-2024 Referral to service [facility] Start: 11-26-2024 [facility] Start: 11-26-2024 End: 11-26-2024 Following clinical pathway protocol [facility] Start: 11-26-2024 Admission procedure [facility] Start: 11-26-2024 Verification routine [facility] Start: 11-26-2024 [facility] Start: 10-26-2024 Patient discharge [facility] Start: 10-25-2024 [facility] Start: 10-25-2024 Assessment of risk of venous thromboembolism [facility] Start: 10-25-2024 Insertion of catheter into peripheral vein [facility] Start: 10-25-2024 Measuring intake and output [facility] Start: 10-25-2024 Notification of physician [facility] Start: 10-25-2024 Providing care according to standard [facility] Start: 10-25-2024 Provision of activity privileges [facility] Start: 10-25-2024 [facility] Start: 10-25-2024 Following clinical pathway protocol [facility] Start: 10-25-2024 Verification routine [facility] Start: 10-25-2024 Admission procedure [facility] Start: 10-25-2024 Hospital admission, emergency, from emergency room, medical nature [facility] Start: 10-25-2024 Bacteria identified in Urine by Culture Urine Culture [facility] Start: 10-25-2024 [facility] Start: 10-21-2024 [facility] Start: 10-21-2024 [facility] Start: 10-14-2024 End: 10-14-2024 Evaluation of diagnostic study results [facility] Start: 09-09-2024 [facility] Start: 09-09-2024 [facility] Start: 08-02-2024 [facility] Start: 08-02-2024 [facility] Start: 06-18-2024 End: 06-18-2024 [facility] Start: 10-12-2021 [facility] Work Phone: Start: 02-26-2017 End: 02-26-2017 Appointment Appointment [facility] Work Phone: Start: 11-11-2016 End: 11-11-2016 Appointment Appointment [facility] Work Phone: Start: 10-28-2016 End: 10-28-2016 Appointment Appointment [facility] Work Phone: Start: 10-28-2016 End: 10-28-2016 Follow Up BP Check Follow Up BP Check [facility] Work Phone: Start: 10-08-2016 End: 10-08-2016 Appointment Appointment [facility] Work Phone: Start: 09-24-2016 End: 09-24-2016 Appointment Appointment [facility] Work Phone: Start: 09-24-2016 End: 10-28-2016 *BMP *BMP [facility] Work Phone: Start: 09-24-2016 End: 09-24-2016 Follow Up BP Check Follow Up BP Check [facility] Work Phone: Start: 09-22-2016 End: 09-22-2016 Appointment Appointment [facility] Work Phone: Start: 09-08-2016 End: 09-08-2016 Appointment Appointment [facility] Work Phone: Start: 09-05-2016 End: 09-05-2016 Appointment Appointment [facility] Work Phone: Start: 08-27-2016 End: 08-27-2016 Appointment Appointment [facility] Work Phone: Start: 08-26-2016 End: 09-08-2016 *BMP *BMP [facility] Work Phone: Start: 08-26-2016 End: 08-27-2016 *Hepatic Function Panel *Hepatic Function Panel [facility] Work Phone: Start: 08-26-2016 End: 08-27-2016 ANATOMICAL EMBALMER ANATOMICAL EMBALMER [facility] Work Phone: Start: 08-26-2016 End: 08-27-2016 Follow Up Appt 6 months Follow Up Appt 6 months [facility] Work Phone: Start: 08-26-2016 End: 09-08-2016 Follow Up BP Check Follow Up BP Check [facility] Work Phone: Start: 08-26-2016 End: 08-27-2016 Lipid panel [AGGREGATE] *Lipid Profile CC PCP [facility] Work Phone: Start: 11-27-2015 End: 11-27-2015 Follow Up Appt 6 months Follow Up Appt 6 months [facility] Work Phone: Start: 11-27-2015 End: 11-27-2015 MMM MMM [facility] Work Phone: Start: 11-22-2015 End: 11-29-2015 Lipid panel [AGGREGATE] *Lipid Profile CC PCP [facility] Work Phone: Start: 06-15-2015 End: 06-25-2015 *Hepatic Function Panel *Hepatic Function Panel [facility] Work Phone: Start: 06-15-2015 End: 06-25-2015 Lipid panel [AGGREGATE] *Lipid Profile CC PCP [facility] Work Phone: Start: 03-28-2015 End: 03-28-2015 ANATOMICAL EMBALMER ANATOMICAL EMBALMER [facility] Work Phone: Start: 03-28-2015 End: 03-28-2015 Echocardiography Echocardiogram (complete) [facility] Work Phone: Start: 03-28-2015 End: 03-28-2015 Follow Up Appt 6 months Follow Up Appt 6 months [facility] Work Phone: Start: 11-29-2014 End: 12-14-2014 *Hepatic Function Panel *Hepatic Function Panel [facility] Work Phone: Start: 11-29-2014 End: 12-14-2014 Lipid panel [AGGREGATE] *Lipid Profile CC PCP [facility] Work Phone: Start: 09-12-2014 End: [...] Group Work Phone: Start: 03-01-2014 End: 03-01-2014 ANATOMICAL EMBALMER ANATOMICAL EMBALMER [facility] Work Phone: Start: 03-01-2014 End: 03-01-2014 Electrocardiogram, complete EKG (In office) [facility] Work Phone: Start: 03-01-2014 End: 03-01-2014 Follow Up Appt 6 months Follow Up Appt 6 months [facility] Work Phone: Start: 10-31-2013 End: 11-24-2013 *Hepatic Function Panel *Hepatic Function Panel [facility] Work Phone: Start: 10-31-2013 End: 11-24-2013 Lipid panel [AGGREGATE] *Lipid Profile CC PCP [facility] Work Phone: Start: 07-20-2013 End: 07-20-2013 Echocardiography Echocardiogram (complete) [facility] Work Phone: Start: 07-20-2013 End: 07-20-2013 Follow Up Appt 6 months Follow Up Appt 6 months [facility] Work Phone: Start: 07-20-2013 End: 07-20-2013 MMM MMM [facility] Work Phone: Start: 04-02-2013 End: 05-12-2013 *Hepatic Function Panel *Hepatic Function Panel [facility] Work Phone: Start: 04-02-2013 End: 05-12-2013 Lipid panel [AGGREGATE] *Lipid Profile CC PCP [facility] Work Phone: Start: 12-07-2012 End: 12-07-2012 ANATOMICAL EMBALMER ANATOMICAL EMBALMER [facility] Work Phone: Start: 12-07-2012 End: 12-07-2012 Follow Up Appt 6 months Follow Up Appt 6 months [facility] Work Phone: Start: 08-30-2012 End: 09-27-2012 *Hepatic Function Panel *Hepatic Function Panel [facility] Work Phone: Start: 08-30-2012 End: 09-27-2012 Lipid panel [AGGREGATE] *Lipid Profile [facility] Work Phone: Start: 06-04-2012 End: 06-04-2012 Follow Up Appt 6 months Follow Up Appt 6 months [facility] Work Phone: Start: 06-04-2012 End: 06-04-2012 MMM MMM [facility] Work Phone: Start: 03-03-2012 End: [...] 6 months Follow Up Appt 6 months [facility] Work Phone: Cardiac event recording [facility] Patient Education [facility] Work Phone: Patient referral [facility] Work Phone: Troponin T.cardiac [Mass/volume] in Serum or Plasma by High sensitivity method [facility] Troponin T.cardiac [Mass/volume] in Serum or Plasma by High sensitivity method [facility] Urine culture [facility] Carotid arteries [facility] Work Phone: [facility] Immunizations Immunization Date Immunization Notes Care Provider Fa [facility] 11-27-2024 influenza, high dose seasonal, preservative-free Dr. Lilly Fletcher MD Work Phone: [facility] Payers Date Payer Category Payer Self-pay [id number] 2023 Medicare [id number] Medicare [id number] Private Health Insurance [id number] Unknown [id number] 2.16.8 40.1.836615.3.579.2.462 Unknown [id number] 2.16.8 40.1.153602.3.579.2.462 Unknown [id number] 2.16.8 40.1.388294.3.579.2.462 Unknown [id number] 2.16.8 40.1.267246.3.579.2.462 Unknown [id number] 2.16.8 40.1.712155.3.579.2.462 Unknown [id number] 2.16.8 40.1.961156.3.579.2.462 Unknown [id number] 2.16.8 40.1.388592.3.579.2.462 Unknown [id number] 2.16.8 40.1.567399.3.579.2.462 Unknown [id number] 2.16.8 40.1.960692.3.579.2.462 Unknown [id number] 2.16.8 40.1.801729.3.579.2.462 Unknown [id number] 2.16.8 40.1.765179.3.579.2.462 Unknown [id number] 2.16.8 40.1.011333.3.579.2.462 Unknown [id number] 2.16.8 40.1.075730.3.579.2.462 Unknown [id number] 2.16.8 40.1.800841.3.579.2.462 Unknown [id number] 2.16.8 40.1.230908.3.579.2.462 Unknown [id number] 2.16.8 40.1.517297.3.579.2.462 Unknown [id number] 2.16.8 40.1.825072.3.579.2.462 Unknown [id number] 2.16.8 40.1.336175.3.579.2.462 Unknown [id number] 2.16.8 40.1.324990.3.579.2.462 Unknown [id number] 2.16.8 40.1.254824.3.579.2.462 Unknown [id number] 2.16.8 40.1.653518.3.579.2.462 Unknown [id number] 2.16.8 40.1.128675.3.579.2.462 Unknown [id number] 2.16.8 40.1.823856.3.579.2.462 Unknown [id number] 2.16.8 40.1.164474.3.579.2.462 Unknown [id number] 2.16.8 40.1.640812.3.579.2.462 Unknown [id number] 2.16.8 40.1.461433.3.579.2.462 Unknown [id number] 2.16.8 40.1.637438.3.579.2.462 Unknown [id number] 2.16.8 40.1.873314.3.579.2.462 Social History Date Type Detail Facility Start: 04-18-2021 End: 03-25-2023 Tobacco smoking status VAIS Unknown if ever smoked [facility] Start: 07-11-2020 None [facility] Start: 10-25-2015 With Family [facility] Start: 07-11-2020 Non-smoker [facility] Start: 1945 Sex Assigned At Female W [facility] Start: 06-18-2024 End: 11-26-2024 Tobacco smoking status NHIS Never smoked tobacco (finding) [facility] Start: 06-18-2024 Sex Female (finding) [facility] Sex [facility] Goals Date Patient Goal Desired Activity /State Functional Status Date Assessment Result Facility 11-30-2024 Functional status Bedside Commode [facility] Work Phone: 10-26-2024 Functional status Ambulates [facility] Work Phone: 10-26-2024 Functional status Well [facility] Work Phone: Mental Status Date Assessment Result Facility 11-30-2024 Cognitive function Voice/Name [facility] Work Phone: 11-30-2024 Cognitive function Voice/Name [facility] Work Phone: 10-26-2024 Cognitive function Voice/Name [facility] Work Phone: 10-25-2024 Cognitive function Awake;Alert;A ppropriate;Fol lows Commands [facility] Work Phone: 10-21-2024 Cognitive function Voice/Name [facility] Work Phone: 09-09-2024 Cognitive function Voice/Name [facility] Work Phone: 08-02-2024 Cognitive function Awake;Alert;A ppropriate;Fol lows Commands [facility] Work Phone: 10-12-2021 Cognitive function Voice/Name [facility] Work Phone: Clinical Notes 06-18-2024 to 01-12-2025 Note Date & Type Note Facility 01-12-2025 Note [facility] 01-11-2025 Note [facility] 01-10-2025 Note [facility] 11-30-2024 Consult note Note Date/Time November 30, 2024 3:10pm [facility] Medical Records Department [address] [place] [address] Counseling Note - Pharmacy 11/30/24 1510 MR#: [id number] Acct: [id number] Name: AYAN CARRILLO Rep #:[id number] : 1945 79 From: Ladonna Duval PCP: Dr. Brayan Thompson MD Status :ADM DENISE Y Location: [place] [address] Pharmacy [place] Med Reconciliation Pharmacy Service has performed discharge [...] Signature (if applicable): Date CC: ~ Signed [facility] Work Phone: 1(474) 772-135110-01-2025 Discharge summary Author Paul Lauren [facility] Note Date/Time November 30, 2024 2: 44pm [facility] Medical Records Department [address] [place] [address] Discharge Summary 11/30/24 1440 MR#: [id number] Acct: [id number] Name: AYAN CARRILLO Rep #:[id number] : 1945 79 From: Paul Ngo PCP: Dr. Brayan Thompson MD Status :ADM DENISE Location: [place] [address] Providers Date of Admission: 11/26/24 Date of [...] T4 after 6 weeks. 7. CAD; s/p UT -on baby aspirin. If anemia will be [...] 70.8 H, Lymph % (Auto) 14.1 L, [place] % (Auto) 13.4 H, Eos % (Auto) [...] Chronic/degenerative changes as described above. Reading Location: [facility] Cervical Spine CT 11/26/24 17:01 IMPRESSION: No acute traumatic findings. Chronic/degenerative changes as described above. Reading Location: [facility] Chest X-Ray 11/26/24 17:10 IMPRESSION: No radiographic evidence of an acute cardiopulmonary process Reading Location: [id number] Medications at Discharge Home Medications nitroglycerin 0.4 [...] Up: Brayan Thompson MD [Primary Care Provider, Family Practice] Kale Ansari NP, RESEARCH SUPPORT SPECIALIST-C [Med Staff - [facility] Practice Prof, Cardiology] - Within 2 Weeks Referral Note: Hypotension, orthostatic hypotension. Dizziness Disposition Disposition (needs filled in before D/C Order can be placed): Custodial Facility Charges/Coding Addendum Addendum: I have reviewed the oxygen testing, and this patient qualifies for the home equipment and portability. The patient is mobile in the home and the community. Visit Charges Inpatient E&M: 20899 Disch Hosp >30min 11/30/24 1444 <Electronically signed by Paul Lauren MD> Cosigner Signature (if applicable): CC: MELISSA-C Kale Ansari; Dr. Brayan Thompson MD; Dr. Paul Lauren MD~ Signed [facility] Work Phone: 1(564) 643-518310-01-2025 Discharge summary Author Paul Lauren [facility] Note Date/Time November 30, 2024 2: 40pm [facility] Medical Records Department [address] [place] [address] Transfer to [facility] Care MR#: [id number] Acct: [id number] Name: AYAN CARRILLO Rep #:[id number] : 1945 79 From: Paul Ngo PCP: Dr. Brayan Thompson MD Status :ADM DENISE Certification of patient admission REQUIRED AT TIME OF ADMISSION. I CERTIFY THAT POST-HOSPITAL ECF SERVICES ARE REQUIRED TO BE GIVEN ON AN IN-PATIENT BASIS BECAUSE OF THE ABOVE NAMED PATIENT'S NEED FOR RETIREMENT CARE ON A CONTINUING BASIS FOR THE CONDITION(S) FOR WHICH HE/SHE WAS RECEIVING IN-PATIENT HOSPITAL SERVICES PRIOR TO HIS/HER TRANSFER TO [facility]. 11/30/24 1440<Electronically signed by Paul Lauren MD> [...] T4 after 6 weeks. 7. CAD; s/p UT -on baby aspirin. If anemia will be [...] 70.8 H, Lymph % (Auto) 14.1 L, [place] % (Auto) 13.4 H, Eos % (Auto) [...] Chronic/degenerative changes as described above. Reading Location: [facility] Cervical Spine CT 11/26/24 17:01 IMPRESSION: No acute traumatic findings. Chronic/degenerative changes as described above. Reading Location: [facility] Chest X-Ray 11/26/24 17:10 IMPRESSION: No radiographic evidence of an acute cardiopulmonary process Reading Location: [id number] Allergies/Procedures Done in Hospital Allergies hydrochlorothiazide Adverse Reaction (Intermediate, Verified 11/26/24 15:58) Constipation and urinary incontinence Type of Care/Length of Stay Estimated LOS: Convalescent Care Less Than 30 days Type of Care Needed: Skilled Rehab Potential: Good Prognosis: Good Additional Orders/Day of Discharge Day of Discharge: 11/30/24 Dietary and Speech Recommendations Dietitian Recommendations/Changes: Will continue liberalized regular diet with consistency/texture as per OCCUPATIONAL THERAPY PROGRAM DIRECTOR. Will continue 120mL ensure plus HP 4 [...] Up: Brayan Thompson MD [Primary Care Provider, [facility]] Kale Ansari RESEARCH SUPPORT SPECIALIST, RESEARCH SUPPORT SPECIALIST-C [Med Staff - [facility] Prof, Cardiology] - Within 2 Weeks Referral Note: Hypotension, orthostatic hypotension. Dizziness Disposition Disposition (needs filled in before D/C Order can be placed): Custodial Facility (4) Closed head injury without concussion Qualifiers: Encounter type: initial encounter Qualified Code(s): S09.90XA - Unspecified injury of head, initial encounter 11/30/24 1440 <Electronically signed by Paul Lauren MD> Cosigner Signature (if applicable): CC: Dr. Brayan Thompson MD; Dr. Reynaldo Oliva, DO ~ [facility] Work Phone: 1(805) 649-890210-01-2025 [facility]10-01-2025 Hospital Discharge instructionsAdditional Instructions Bilateral Usama wrap bandage in lower extremities. Patient could not tolerate Lasix because of hypotension and dizziness. Date of Discharge: 11/30/24[facility] Work Phone: 1(584) 837-216109-30-2025 Progress note Author Paul Lauren [facility] Note Date/Time November 29, 2024 4:53pm [facility] Medical Records Department [address] [place] [address] Progress Note - Hospitalist 11/29/24 1641 MR#: [id number] Acct: [id number] Name: AYAN CARRILLO Rep #:[id number] : 1945 79 From: Paul Ngo PCP: Dr. Brayan Thompson MD Status :ADM DENISE Location: [place] [address] Reason for Visit Chief Complaint: Generalized Weakness, [...] T4 after 6 weeks. 7. CAD; s/p UT -on baby aspirin. If anemia will be [...] 70.8 H, Lymph % (Auto) 14.1 L, [place] % (Auto) 13.4 H, Eos % (Auto) [...] Chronic/degenerative changes as described above. Reading Location: [facility] Cervical Spine CT 11/26/24 17:01 IMPRESSION: No acute traumatic findings. Chronic/degenerative changes as described above. Reading Location: [facility] Chest X-Ray 11/26/24 17:10 IMPRESSION: No radiographic evidence of an acute cardiopulmonary process Reading Location: [id number] Charges/Coding Visit Charges Inpatient E&M: 27138 Subs Hosp L2 11/29/24 1648 <Electronically signed by Paul Lauren MD> Cosigner Signature (if applicable): CC: ~ Signed ADDENDUM by Dr. Paul Lauren MD on 11/29/24 at 1653 Addendum Carvedilol is held. 11/29/241652<Electronically signed by Paul Lauren MD> Cosigner Signature (if applicable): cc: ~* Signed [facility] Work Phone: 1(804) 831-902609-29-2025 Progress note Author Paul Lauren [facility] Note Date/Time November 28, 2024 4:57pm [facility] Medical Records Department [address] [place] [address] Progress Note - Hospitalist 11/28/241651 MR#: [id number] Acct: [id number] Name: AYAN CARRILLO Rep #:[id number] : 1945 79 From: Paul Ngo PCP: Dr. Brayan Thompson MD Status :ADM DENISE Location: [facility] LU449-5 Reason for Visit Chief Complaint: Generalized Weakness, [...] 79.4 H, Lymph % (Auto) 7.3 L, [place] %(Auto) 11.3 H, Eos % (Auto) 1.3, [...] Hypoventilation. Atelectasis left lung base. Reading Location: [id number] Rhythm Strip Rhythm Strip: Sinus Rhythm Rate: [...] T4 after 6 weeks. 7. CAD; s/p UT -on baby aspirin. If anemia will be [...] 79.4 H, Lymph % (Auto) 7.3 L, [place] %(Auto) 11.3 H, Eos % (Auto) 1.3, [...] 79.7 H, Lymph % (Auto) 9.7 L, [place] %(Auto) 9.2, Eos % (Auto) 0.8, Baso [...] Sl. Cloudy, Urine pH 6.5, Ur Specific [place] 1.015, Urine Protein 15 H, Urine Glucose [...] 70.8 H, Lymph % (Auto) 14.1 L, [place] % (Auto) 13.4 H, Eos % (Auto) [...] Chronic/degenerative changes as described above. Reading Location: [facility] Cervical Spine CT 11/26/24 17:01 IMPRESSION: No acute traumatic findings. Chronic/degenerative changes as described above. Reading Location: [id number] Chest X-Ray 11/26/24 17:10 IMPRESSION: No radiographic evidence of an acute cardiopulmonary process Reading Location: [id number] Charges/Coding Visit Charges Inpatient E&M: 84093 Subs Hosp L2 11/28/24 1657 <Electronically signed by Paul Lauren MD> Cosigner Signature (if applicable): CC: ~ Signed [facility] Work Phone: 1(369) 654-234009-29-2025 Radiology Diagnostic study [facility]09-28-2025 Progress note Author Paul Lauren [facility] Note Date/Time November 27, 2024 11:52am [facility] Medical Records Department [address] [place] [address] Progress Note - Hospitalist 11/27/24 0847 MR#: [id number] Acct: [id number] Name: AYAN CARRILLO Rep #:[id number] : 1945 79 From: Paul Ngo PCP: Dr. Brayan Thompson MD Status :ADM DENISE Location: [address] LN115-5 Reason for Visit Chief Complaint: Generalized Weakness, [...] RDW Std Deviation 43.5, RDW Coeff of Ocry 13.2, Plt Count 227, MPV 9.3, Immature Gran % (Auto) 0.300, Neut % (Auto) 79.7 H, Lymph % (Auto) 9.7 L, [place] %(Auto) 9.2, Eos % (Auto) 0.8, Baso [...] Sl. Cloudy, Urine pH 6.5, Ur Specific [place] 1.015, Urine Protein 15 H, Urine Glucose [...] 70.8 H, Lymph % (Auto) 14.1 L, [place] % (Auto) 13.4 H, Eos % (Auto) [...] Chronic/degenerative changes as described above. Reading Location: [facility] Cervical Spine CT 11/26/24 17:01 IMPRESSION: No acute traumatic findings. Chronic/degenerative changes as described above. Reading Location: [facility] Chest X-Ray 11/26/24 17:10 IMPRESSION: No radiographic evidence of an acute cardiopulmonary process Reading Location: [id number] Rhythm Strip Rhythm Strip: Sinus Rhythm Rate: [...] T4 after 6 weeks. 7. CAD; s/p UT -on baby aspirin. If anemia will be [...] 79.7 H, Lymph % (Auto) 9.7 L, [place] %(Auto) 9.2, Eos % (Auto) 0.8, Baso [...] Sl. Cloudy, Urine pH 6.5, Ur Specific [place] 1.015, Urine Protein 15 H, Urine Glucose [...] 70.8 H, Lymph % (Auto) 14.1 L, [place] % (Auto) 13.4 H, Eos % (Auto) [...] Chronic/degenerative changes as described above. Reading Location: [facility] Cervical Spine CT 11/26/24 17:01 IMPRESSION: No acute traumatic findings. Chronic/degenerative changes as described above. Reading Location: [facility] Chest X-Ray 11/26/24 17:10 IMPRESSION: No radiographic evidence of an acute cardiopulmonary process Reading Location: [id number] Charges/Coding Visit Charges Inpatient E&M: 39685 Subs Hosp L2 11/27/24 1140 <Electronically signed [...] Chronic/degenerative changes as described above. Reading Location: [facility] Cervical Spine CT 11/26/24 17:01 IMPRESSION: No acute traumatic findings. Chronic/degenerative changes as described above. Reading Location: [facility] Chest X-Ray 11/26/24 17:10 IMPRESSION: No radiographic evidence of an acute cardiopulmonary process Reading Location: [id number] 11/27/24 1152<Electronically signed by Paul Lauren MD> Cosigner Signature (if applicable): cc: ~* Signed [facility] Work Phone: 1(265) 311-809609-28-2025 History and physical note Author Reynaldo Nguyen [facility] Note Date/Time November 27, 2024 6:39am [facility] Medical Records Department [address] [place] [address] H&P Exam - Hospitalist 11/26/242013 MR#: [id number] Acct: [id number] Name: AYAN CARRILLO Rep #:[id number] : 1945 79 From: Reynaldo Dickey DO PCP: Dr. Brayan Thompson MD Status :ADM DENISE Location: CA3 [id number] [facility] - General General Date of Admission: 11/26/24 Date of Service: 11/26/24 Chief Complaint: Generalized Weakness, Fall and Head Injury. HPI Narrative AYAN CARRILLO, is a 79 F with a past medical history of essential hypertension; on carvedilol twice daily, hyperlipidemia; on atorvastatin, hypothyroidism; on levothyroxine, morbid (class III) obesity; with BMI 41.3 this admission, CAD; s/p UT, PAF; on diltiazem and apixaban twice daily, GERD; on omeprazole and OA who presents to [facility] ER complaining of generalized weakness with fall [...] states she was recently seen by her digital ad trafficker who felt her carvedilol dose was too [...] expected to be less than 2 midnights. [facility] Medical History (Updated 11/27/24 @ 00:[address] Stephanie Kincaid DO) Morbid obesity with BMI of 40.0-44.9, adult Hypothyroidism GERD (gastroesophageal reflux disease) GI bleed Atrial fibrillation Hypertension Myocardial infarction Obesity Essential (primary) hypertension Atherosclerotic heart disease of [place] coronary artery without angina pectoris Hyperlipidemia GERD [...] 79.7 H, Lymph % (Auto) 9.7 L, [place] %(Auto) 9.2, Eos % (Auto) 0.8, Baso [...] Sl. Cloudy, Urine pH 6.5, Ur Specific [place] 1.015, Urine Protein 15 H, Urine Glucose [...] Chronic/degenerative changes as described above. Reading Location: [facility] Cervical Spine CT 11/26/24 17:01 IMPRESSION: No acute traumatic findings. Chronic/degenerative changes as described above. Reading Location: [facility] Chest X-Ray 11/26/24 17:10 IMPRESSION: No radiographic evidence of an acute cardiopulmonary process Reading Location: [id number] Assessment & Plan Assessment/Plan (1) Frequent falls: [...] under observation status. Give acetaminophen prn for vpmo-ou-eycdduir (level 1-5/10) pain or fever. Give oxycodone [...] levothyroxine and check TSH. 7. CAD; s/p UT - Noted. 8. GERD; on omeprazole - Maintain PPI. 9. OA - We will follow pain regimen and scales outlined in #1. 10. DVT prophylaxis - Patient already on apixaban for #2 which will be reluctantly continued for now. Total time: Approximately (but not less than) 70 minutes. Charges/Coding Visit Charges OBSV E&M: 84275 Observ/hosp same date L2 11/27/24 0639 <Electronically signed by Reynaldo Oliva DO> Cosigner Signature (if applicable): CC: Dr. Brayan Thompson MD; Dr. Reynaldo Oliva DO~ Signed [facility] Work Phone: 1(600) 427-936009-28-2025 Discharge summary Author [facility] Note Date/Time November 27, 2024 12:49am [facility] Medical Records Department [address] [place] [address] Emergency Department Summary 11/26/24 MR#: [id number] Acct: [id number] Name: AYAN CARRILLO Rep #:[id number] : 1945 79 From: Stephanie Solomon PCP: Dr. Brayan Thompson MD Status :ADM DENISE Location: [place] [address] HPI History of Present Illness Chief Complaint: [...] week. Denies any fevers or acute cough [facility] Medical History (Updated 11/27/24 @ 00:[address] Stephanie Kincaid, ) Morbid obesity with BMI of 40.0-44.9, adult Hypothyroidism GERD (gastroesophageal reflux disease) GI bleed Atrial fibrillation Hypertension Myocardial infarction Obesity Essential (primary) hypertension Atherosclerotic heart disease of [place] coronary artery without angina pectoris Hyperlipidemia GERD [...] 79.7 H Lymph % (Auto) 9.7 L [place] % (Auto) 9.2 Eos % (Auto) 0.8 [...] Sl. Cloudy Urine pH 6.5 Ur Specific [place] 1.015 Urine Protein 15 H Urine Glucose [...] (Auto) Neut % (Auto) Lymph % (Auto) [place] % (Auto) Eos % (Auto) Baso % [...] Color Urine Clarity Urine pH Ur Specific [place] Urine Protein Urine Glucose (UA) Urine Ketones [...] Chronic/degenerative changes as described above. Reading Location: [facility] Cervical Spine CT 11/26/24 17:01 IMPRESSION: No acute traumatic findings. Chronic/degenerative changes as described above. 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 Call [facility] ([phone]) or report to the closest Emergency Room. Call 911 if necessary. 11/27/24 0049 <Electronically signed by Stephanie Kincaid DO> Cosigner Signature (if applicable): CC: Dr. Brayan Thompson MD ~ Signed [facility] Work Phone: 1(604) 115-203109-27-2025 Radiology Diagnostic study [facility]09-27-2025 Radiology Diagnostic study [facility]09-27-2025 Radiology Diagnostic study [facility] 11-26-2024 Discharge summary Author [facility] Note Date/Time November 27, 2024 12:49am [facility] Medical Records Department [address] [place] [address] Emergency Department Summary 11/26/24 MR#: [id number] Acct: [id number] Name: AYAN CARIRLLO Rep #:[id number] : 1945 79 From: Stephanie Solomon PCP: Dr. Brayan Thompson MD Status :ADM DENISE Location: [address] History of Present Illness Chief Complaint: [...] week. Denies any fevers or acute cough [facility] Medical History (Updated 11/27/24 @ 00:[address] Stephanie Kincaid, DO) Morbid obesity with BMI of 40.0-44.9, adult Hypothyroidism GERD (gastroesophageal reflux disease) GI bleed Atrial fibrillation Hypertension Myocardial infarction Obesity Essential (primary) hypertension Atherosclerotic heart disease of [place] coronary artery without angina pectoris Hyperlipidemia GERD [...] 79.7 H Lymph % (Auto) 9.7 L [place] % (Auto) 9.2 Eos % (Auto) 0.8 [...] Sl. Cloudy Urine pH 6.5 Ur Specific [place] 1.015 Urine Protein 15 H Urine Glucose [...] (Auto) Neut % (Auto) Lymph % (Auto) [place] % (Auto) Eos % (Auto) Baso % [...] Color Urine Clarity Urine pH Ur Specific [place] Urine Protein Urine Glucose (UA) Urine Ketones [...] Chronic/degenerative changes as described above. Reading Location: [facility] Cervical Spine CT 11/26/24 17:01 IMPRESSION: No acute traumatic findings. Chronic/degenerative changes as described above. Reading Location: [facility] Chest X-Ray 11/26/24 17:10 IMPRESSION: No radiographic evidence of an acute cardiopulmonary process Reading Location: [id number] Rhythm Strip Rhythm Strip: Sinus Rhythm Rate: [...] without concussion, Generalized weakness, Current use of detention anticoagulation Disposition Disposition: Acute Care Hospital [facility] Discharge Date/Time: 11/26/24 21:24 What to do if you have Problems For any increased pain, shortness of breath, bleeding, nausea or vomiting, chestpain, or any unexpected problems, contact your Primary Care Provider. Call [facility] ([phone]) or report to the closest Emergency Room. Call 911 if necessary. 11/27/24 0049 <Electronically signed by Stephanie Godman DO> Cosigner Signature (if applicable): CC: Dr. Brayan Thompson MD ~ Signed [facility] Work Phone: 1(821) 910-159808-27-2025 [facility]08-27-2025 Consult note [facility] Medical Records Department [address] [place] [address] Counseling Note - Pharmacy 10/26/24 1505 MR#: [id number] Acct: [id number] Name: AYAN CARRILLO Rep #:[id number] : 1945 79 From: Ladonna Duval PCP: Dr. Brayan Thompson MD Status :ADM DENISE Y Location: [place] [address] Pharmacy ME Med Reconciliation Pharmacy Service has performed discharge [...] Signature (if applicable): Date CC: ~ Signed [facility]08-27-2025 Discharge summary [facility] Medical Records Department [address] [place] [address] Instructions for Home/Discharge Instructions 10/26/24 1416 MR#: [id number] Acct: [id number] Name: AYAN CARRILLO Rep #:[id number] : 1945 79 From: Seth draper MD PCP: Dr. Brayan Thompson MD Status :ADM DENISE Discharge Instructions DC O2, CPAP, BIPAP needs [...] MD; Dr. Aranza Little MD ~ Signed [facility]08-26-2025 History and physical note Author Aranza Little [facility] Note Date/Time October 25, 2024 5: 30pm [facility] Medical Records Department [address] [place] [address] H&P Exam - Hospitalist 10/25/241716 MR#: [id number] Acct: [id number] Name: AYAN CARRILLO Rep #:[id number] : 1945 79 From: Aranza Little MD PCP: Dr. Brayan Thompson MD Status :ADM DENISE Location: U [id number] HPI - General General Date of Admission: 10/25/24 Date of Service: 10/25/24 Chief Complaint: Chest pain HPI Narrative AYAN CARRILLO, is a 79-year-old female history of hypothyroidism, hypertension, A-fib, GERD presented [facility] ED 10/25/2024 due to chest pressure and [...] happens whenshe has not moved around much [facility] Medical History (Updated 10/25/24 @ 16:16 by Mindy Guadalupe) Atherosclerotic heart disease of [place] coronary artery without angina pectoris Atrial fibrillation [...] 77.1 H, Lymph % (Auto) 13.1 L, [place] % (Auto) 7.9, Eos % (Auto) 1.1, [...] significant change since last exam. Reading Location: [id number] Assessment & Plan Assessment/Plan (1) Chest pain: [...] Little MD Charges/Coding Visit Charges Inpatient E&M: 25888 Init Hosp L2 10/25/24 1730 <Electronically signed by Aranza Little MD> Cosigner Signature (if applicable): CC: Dr. Brayan Thompson MD; Dr. Aranza Little MD~ Signed [facility] Work Phone: 1(684) 556-801808-26-2025 Discharge summary Author Jaylen Jack [facility] Note Date/Time October 25, 2024 4: 21pm [facility] Medical Records Department [address] [place] [address] Emergency Department Summary 10/25/24 MR#: [id number] Acct: [id number] Name: AYAN CARRILLO Rep #:[id number] : 1945 79 From: Jaylen Solomon PCP: Dr. Brayan Thompson MD Status :REG ER Location: ED HPI History of Present Illness Chief Complaint: Chest Pain PFSH [facility] Medical History Myocardial infarction Obesity Essential (primary) hypertension Atherosclerotic heart disease of [place] coronary artery without angina pectoris Hyperlipidemia GERD [...] MEDICAL DECISION MAKING: Chief Complaint: please see [facility] External records reviewed: Reviewed prior cardiovascular testing: Reviewed echocardiogram from October 2023: Showed ejection fraction of 65. Factors affecting care: as per HPI Social determinants of health: Denies illicit drug use A-fib on Eliquis History obtained from others: EMS Consults: Cardiology (Dr. Franco), Internal Medicine (Dr. Little) [facility] Narrative: The patient was initially hemodynamically [...] to PCU This note was generated with SHADOW dictation software. It may contain incorrectwords, spelling, [...] 77.1 H Lymph % (Auto) 13.1 L [place] % (Auto) 7.9 Eos % (Auto) 1.1 [...] significant change since last exam. Reading Location: [id number] Discharge Plan Triage Chief Complaint: Chest Pain [...] Care Physician,No Primary [Non-Staff] - Print Language: [place]se What to do if you have Problems For any increased pain, shortness of breath, bleeding, nausea or vomiting, chestpain, or any unexpected problems, contact your Primary Care Provider. Call [facility] ([phone]) or report to the closest Emergency Room. Call 911 if necessary. 10/25/24 1621 <Electronically signed by Jaylen Jack DO> Cosigner Signature (if applicable): CC: Dr. Brayan Thompson MD ~ Signed [facility] Work Phone: 1(119) [phone] History and physical note [facility] Medical Records Department [address] [place] [address] H&P Exam - Hospitalist 10/25/24 1717 MR#: [id number] Acct: [id number] Name: AYAN CARRILLO Rep #:[id number] : 1945 79 From: Aranza Little MD PCP: Dr. Brayan Thompson MD Status :ADM DENISE Location: [place] [id number] HPI - General General Date of Admission: 10/25/24 Date of Service: 10/25/24 Chief Complaint: Chest pain HPI Narrative AYAN CARRILLO, is a 79-year-old female history of hypothyroidism, hypertension, A-fib, GERD presented [facility] ED 10/25/2024 due to chest pressure and [...] happens whenshe has not moved around much [facility] Medical History (Updated 10/25/24 @ 16:16 by Mindy Guadalupe) Atherosclerotic heart disease of [place] coronary artery without angina pectoris Atrial fibrillation [...] 77.1 H, Lymph % (Auto) 13.1 L, [place] % (Auto) 7.9, Eos % (Auto) 1.1, Baso % (Auto) 0.3, Absolute Neuts (auto) 5.1, Absolute Lymphs (auto) 0.86, Nucleated RBC % 0, Sodium 139, Potassium 4.2, [id number], Carbon Dioxide 25.4, Anion Gap 10, BUN [...] significant change since last exam. Reading Location: [id number] Assessment & Plan Assessment/Plan (1) Chest pain: [...] Little MD Charges/Coding Visit Charges Inpatient E&M: 28637 Init Hosp L2 10/25/24 1730 Cosigner Signature (if applicable): CC: Dr. Brayan Thompson MD; Dr. Aranza Little MD~ Signed [facility]08-26-2025 Discharge summary [facility] Medical Records Department [address] [place] [address] Emergency Department Summary 10/25/24 MR#: [id number] Acct: [id number] Name: AYAN CARRILLO Rep #:[id number] : 1945 79 From: Jaylen Solomon PCP: Dr. Brayan Thompson MD Status :REG ER Location: ED HPI History of Present Illness Chief Complaint: [facility] Medical History Myocardial infarction Obesity Essential (primary) hypertension Atherosclerotic heart disease of [place] coronary artery without angina pectoris Hyperlipidemia GERD [...] to PCU This note was generated with Dragon dictation software. It may contain incorrectwords, spelling, [...] 77.1 H Lymph % (Auto) 13.1 L [place] % (Auto) 7.9 Eos % (Auto) 1.1 [...] significant change since last exam. Reading Location: [facility] Discharge Plan Triage Chief Complaint: Chest [...] Care Physician,No Primary [Non-Staff] - Print Language: [place] What to do if you have Problems For any increased pain, shortness of breath, bleeding, nausea or vomiting, chestpain, or any unexpected problems, contact your Primary Care Provider. Call [facility] ([phone]) or report tothe closest Emergency Room. Call 911 if necessary. 10/25/24 1621 Cosigner Signature (if applicable): CC: Dr. Brayan Thompson MD ~ Signed [facility]08-26-2025 Radiology Diagnostic study note [facility] Imaging Services [address] [place], [place] [address] Chest 1 View (Portable) MR#: [id number] Acct: [id number] Name: AYAN CARRILLO Rep #: [id number] : 1945 F 79 From: Philipp Paz MD PCP: Dr. Brayan Thompson MD Status: [facility] ER Study:Chest 1 View (Portable) Date of Exam: 10/25/24 Exam# [id number] Ordering Dr: Rod Jack DO PROCEDURE: CHEST [...] significant change since last exam. Reading Location: [id number] CC: Dr. Brayan Thompson MD; Dr. Jaylen Jack DO ~ County Records Management Officer: Signed [facility]08-26-2025 Discharge summary Author Jaylen Jack [facility] Note Date/Time October 25, 2024 4: 21pm [facility] Medical Records Department [address] [place] [address] Emergency Department Summary 10/25/24 MR#: [id number] Acct: [id number] Name: AYAN CARRILLO Rep #:[id number] : 1945 79 From: Jaylen Solomon PCP: Dr. Brayan Thompson MD Status :REG ER Location: ED HPI History of Present Illness Chief Complaint: [facility] Medical History Myocardial infarction Obesity Essential (primary) hypertension Atherosclerotic heart disease of [place] coronary artery without angina pectoris Hyperlipidemia GERD [...] reviewed, Vital signs reviewed Constitutional: please see [facility] HENT: MMM Eyes: Pupils equal round [...] Cardiology (Dr. Franco), Internal Medicine (Dr. Little) [facility] Narrative: The patient was initially hemodynamically [...] to PCU This note was generated with SHADOW dictation software. It may contain incorrectwords, spelling, [...] 77.1 H Lymph % (Auto) 13.1 L [place] % (Auto) 7.9 Eos % (Auto) 1.1 [...] significant change since last exam. Reading Location: [id number] Discharge Plan Triage Chief Complaint: Chest Pain [...] Care Physician,No Primary [Non-Staff] - Print Language: [place] What to do if you have Problems For any increased pain, shortness of breath, bleeding, nausea or vomiting, chestpain, or any unexpected problems, contact your Primary Care Provider. Call [facility] ([phone]) or report to the closest Emergency Room. Call 911 if necessary. 10/25/24 1621 <Electronically signed by Jaylen Jack DO> Cosigner Signature (if applicable): CC: Dr. Brayan Thompson MD ~ Signed [facility] Work Phone: 1(892) 793-137408-22-2025 Radiology Diagnostic study note [facility] Imaging Services [address] [place] [id number] Chest 1 View (Portable) MR#: [id number] Acct: [id number] Name: AYAN CARRILLO Rep #: [id number] : 1945 F 79 From: Remi Chu MD PCP: Care Physician,No Primary Status: REG ER Study:Chest 1 View (Portable) Date of Exam: 10/21/24 Exam# [id number] Ordering Dr: Donovan Pierson DO PROCEDURE: CHEST [...] by the degree of osteopenia. Reading Location: [place] [address] CC: Dr. Donovan Pireson DO; No Primary Care Physician ~ County Records Management Officer: Signed [facility]07-11-2025 Discharge summary [facility] Medical Records Department [address] [place] [address] Emergency Department Summary 09/09/24 MR#: [id number] Acct: [id number] Name: AYAN CARRILLO Rep #:[id number] : 1945 79 From: Donovan Solomon PCP: [...] Essential (primary) hypertension Atherosclerotic heart disease of [place] coronary artery without angina pectoris Hyperlipidemia GERD [...] 70.3 H Lymph % (Auto) 17.2 L [place] % (Auto) 10.2 H Eos % (Auto) [...] anormal sinus rhythm with arate of 64. ND interval, QRS interval, and QTc intervals were [...] MD [Primary Care Provider] - Print Language: [place] What to do if you have Problems For any increased pain, shortness of breath, bleeding, nausea or vomiting, chestpain, or any unexpected problems, contact your Primary Care Provider. Call [facility] ([phone]) or report tothe closest Emergency Room. Call [...] was vies follow-up with In outpatient setting. 09/09/242305 Cosigner Signature (if applicable): cc: Dr. Lilly Fletcher MD ~* Signed [facility]07-11-2025 Radiology Diagnostic study note [facility] Imaging Services [address] [place] [id number] Chest 1 View (Portable) MR#: [id number] Acct: [id number] Name: AYAN CARRILLO Rep #: [id number] : 1945 F 79 From: Josey Grider MD PCP: Dr. Lilly Fletcher MD Status: REG ER Study:Chest 1 View (Portable) Date of Exam: 09/09/24 Exam# [id number] Ordering Dr: Donovan Pierson DO PROCEDURE: CHEST 1 VIEW (PORTABLE) 09/09/2024 REASON FOR EXAM: CHEST PAIN TECHNIQUE: Frontal view of the chest. COMPARISON: Chest radiograph on 08/02/2024 FINDINGS: Hardware: There is a remote medical coder overlying the mediastinum, new from prior. Heart: Cardiac and mediastinal contours are stable. Aortic atherosclerosis. Lungs: No focal consolidation or significant pleural effusion. Bones: Degenerative changes are identified within the thoracic spine. Surgical clips in the right upper quadrant of the abdomen. RAD/Chest 1 View (Portable) IMPRESSION: No acute cardiopulmonary abnormality. Reading Location: [id number] CC: Dr. Lilly Fletcher MD; Dr. Donovan Pierson DO ~ County Records Management Officer: Signed [facility]07-11-2025 Discharge summary Author Donovan Pierson [facility] Note Date/Time September 09, 2024 11:0 6pm [facility] Medical Records Department [address] [facility] [place] [address] Emergency Department Summary 09/09/24 MR#: [id number] Acct: [id number] Name: AYAN CARRILLO Rep #:[id number] : 1945 79 From: Donovan Solomon PCP: [...] Essential (primary) hypertension Atherosclerotic heart disease of [place] coronary artery without angina pectoris Hyperlipidemia GERD [...] 70.3 H Lymph % (Auto) 17.2 L [place] % (Auto) 10.2 H Eos % (Auto) [...] sinus rhythm with a rate of 64. ND interval, QRS interval, and QTc intervals were [...] MD [Primary Care Provider] - Print Language: [place] What to do if you have Problems For any increased pain, shortness of breath, bleeding, nausea or vomiting, chestpain, or any unexpected problems, contact your Primary Care Provider. Call [facility] ([phone]) or report to the closest Emergency Room. Call 911 if necessary. 09/09/248 <Electronically signed by Donovan Pierson DO> Cosigner [...] cc: Dr. Lilly Fletcher MD ~* Signed [facility] Work Phone: 1(823) 288-805606-16-2025 Evaluation note* Diagnosis Onset Date Resolution Status Admit Date Dizziness acute August 15 3:23pm ANTHONY (dyspnea on exertion) acute August 15, 2024 3:23pm Atherosclerotic heart diseas e of [place] coronary artery without angina pectoris chronic August 15, 2024 3:23pm Essential (primary) hypertension chr onic August 15, 2024 3:23pm Hyperlipidemia chronic August 15, 2024 3:23pm Dizziness acute September 05, 2024 3:54pm ANTHONY (dyspnea on exertion) acute September 05, 2024 3:54pm Atherosclerotic heart diseas e of [place] coronary artery without angina pectoris chronic September 05, 2024 3 :54pm Essential (primary) hypertension chr onic September 05, 2024 3:54pm Hyperlipidemia chronic September 05, 2024 3:54pm [facility] Work Phone: 1(723) 930-870306-16-2025 Evaluation note* Diagnosis Onset Date Resolution Status Admit Date Dizziness acute August 15 3:23pm ANTHONY (dyspnea on exertion) acute August 15, 2024 3:23pm Atherosclerotic heart diseas e of [place] coronary artery without angina pectoris chronic August 15, 2024 3:23pm Essential (primary) hypertension chr onic August 15, 2024 3:23pm Hyperlipidemia chronic August 15, 2024 3:23pm Dizziness acute September 05, 2024 3:54pm ANTHONY (dyspnea on exertion) acute September 05, 2024 3:54pm Atherosclerotic heart diseas e of [place] coronary artery without angina pectoris chronic September 05, 2024 3 :54pm Essential (primary) hypertension chr onic September 05, 2024 3:54pm Hyperlipidemia chronic September 05, 2024 3:54pm Chest pain acute October 25, 2 025 5:18pm [facility] Work Phone: 1(706) 668-732006-16-2025 Evaluation note* Diagnosis Onset Date Resolution Status Admit Date Dizziness acute August 15 3:23pm ANTHONY (dyspnea on exertion) acute August 15, 2024 3:23pm Atherosclerotic heart diseas e of [place] coronary artery without angina pectoris chronic July 3:23pm Essential (primary) hypertension chronic August 15, 2024 3:23pm Hyperlipidemia chronic August 15, 2024 3:23pm Dizziness acute September 05, 2024 3:54pm ANTHONY (dyspnea on exertion) acute September 05, 2024 3:54pm Atherosclerotic heart diseas e of [place] coronary artery without angina pectoris chronic August 3:54pm Essential (primary) hypertension chronic September 05, 2024 3 :54pm Hyperlipidemia chronic September 05, 2024 3:54pm Chest pain inactive October 25, 2 025 5:18pm Ambulatory dysfunction acute Se ptember 2024 8:27pm Closed head injury without concussion acute November 26, 2024 8:27pm Frequent falls acute November 26, 2024 8:27pm Generalized weakness acute Oct 8:27pm Morbid obesity with BMI of 40.0-44.9, adult acute November 26, 2024 8:27pm Paroxysmal atrial fibrillation acute November 26, 2024 8:27pm [facility] Work Phone: 1(188) 637-995606-03-2025 Discharge summary [facility] Medical Records Department [address] [place] [address] Emergency Department Summary 08/02/24 MR#: [id number] Acct: [id number] Name: AYAN CARRILLO Rep #:[id number] : 1945 79 From: Jaylen Solomon PCP: Dr. Lilly Fletcher MD Status:REG ER Location: ED HPI History of Present Illness Chief Complaint: Weakness [facility] Medical History (Updated 08/02/24 @ 06:[address] Jaylen Jack, DO) Myocardial infarction Obesity Essential (primary) hypertension Atherosclerotic heart disease of [place] coronary artery without angina pectoris Hyperlipidemia GERD [...] Method Room Air Room Air Room Air [facility] Narrative Medical decision making narrative: HISTORY OF [...] reviewed, Vital signs reviewed Constitutional: please see [facility] HENT: MMM Eyes: Pupils equal round [...] History obtained from others: Family Consults: none [facility] Narrative: Patient was initially hemodynamically stable, [...] Discharge home This note was generated with SHADOW dictation software. It may contain incorrectwords, spelling, [...] 72.1 H Lymph % (Auto) 16.3 L [place] % (Auto) 9.1 Eos % (Auto) 1.5 [...] Sl. Cloudy Urine pH 6.0 Ur Specific [place] 1.020 Urine Protein 30 H Urine Glucose [...] evidence for acute brain abnormality. Reading Location: [place] [address] Chest X-Ray 08/02/24 04:55 IMPRESSION: Mild bilateral basilar atelectatic pulmonary changes. Reading Location: [place] [address] Discharge Plan Triage Chief Complaint: Weakness ED [...] an ultrasound of the heart(echocardiogram). Print Language: [place]se What to do if you have Problems For any increased pain, shortness of breath, bleeding, nausea or vomiting, chestpain, or any unexpected problems, contact your Primary Care Provider. Call [facility] ([phone]) or report tothe closest Emergency Room. Call 911 if necessary. 08/02/24 0639 Cosigner Signature (if applicable): CC: Dr. Lilly Fletcher MD ~ Signed [facility]06-03-2025 Radiology Diagnostic study note [facility] Imaging Services [address] [place] [address] Chest 1 View (Portable) MR#: [id number] Acct: [id number] Name: AYAN CARRILLO Rep #: [id number] : 1945 F 79 From: Barbara Miranda MD PCP: Dr. Lilly Fletcher MD Status: REG ER Study:Chest 1 View (Portable) Date of Exam: 08/02/24 Exam# [id number] Ordering Dr: Rod Jack DO PROCEDURE: CHEST [...] bilateral basilar atelectatic pulmonary changes. Reading Location: [place] [address] CC: Dr. Lilly Fletcher MD; Dr. Jaylen Jack DO ~ County Records Management Officer: Signed [facility]06-03-2025 Radiology Diagnostic study note [facility] Imaging Services [address] [place] [address] Brain/Head without Contrast MR#: [id number] Acct: [id number] Name: AYAN CARRILLO Rep #: [id number] : 1945 F 79 From: Barbara Miranda MD PCP: Dr. Lilly Fletcher MD Status: REG ER Study:Brain/Head without Contrast Date of Exa m: 08/02/24 Exam# [id number] Ordering Dr: Rod Jack DO PROCEDURE: BRAIN/HEAD [...] evidence for acute brain abnormality. Reading Location: [place] [address] CC: Dr. Lilly Fletcher MD; Dr. Jaylen Jack DO ~ County Records Management Officer: Signed [facility]04-19-2025 Discharge summary [facility] Medical Records Department [address] [place] [address] Emergency Department Summary 06/18/24 MR#: [id number] Acct: [id number] Name: AYAN CARRILLO Rep #:[id number] : 1945 78 From: Jennifer MAJOR PCP: [...] pain, shortness of breath, palpitations or syncope. [facility] Medical History (Reviewed 08/10/23 @ 09:57 by Ginger Grace RESEARCH SUPPORT SPECIALIST, RESEARCH SUPPORT SPECIALIST-C) Obesity Essential (primary) hypertension Atherosclerotic heart disease of [place] coronary artery without angina pectoris Hyperlipidemia GERD [...] 71.1 H Lymph % (Auto) 18.1 L [place] % (Auto) 9.1 Eos % (Auto) 1.0 [...] 71.1 H Lymph % (Auto) 18.1 L [place] % (Auto) 9.1 Eos % (Auto) 1.0 [...] - Activity Restrictions/Additional Instructions: Follow-up with your digital ad trafficker to address your low blood pressure. Keep a daily log. Ice and takeTylenol as needed. If symptoms worsen come back to theER. Print Language: [place]se Disposition Disposition: Home, Self Care What to do if you have Problems For any increased pain, shortness of breath, bleeding, nausea or vomiting, chestpain, or any unexpected problems, contact your Primary Care Provider. Call [facility] ([phone]) or report tothe closest Emergency Room. Call 911 if necessary. 06/18/242157 Cosigner Signature (if applicable): 06/18/242158 CC: Dr. Lilly Fletcher MD ~ Signed [facility]04-19-2025 Discharge summary Author Jennifer Meléndez [facility] Note Date/Time June 18, 2024 9:5 9pm [facility] Medical Records Department [address] [place] [address] Emergency Department Summary 06/18/24 MR#: [id number] Acct: [id number] Name: AYAN CARRILLO Rep #:[id number] : 1945 78 From: Jennifer MAJOR PCP: [...] pain, shortness of breath, palpitations or syncope. [facility] <PEDRITO Delacruz - Last Filed: 06/18/24 21:58> [facility] Medical History (Reviewed 08/10/23 @ 09:57 by Ginger Grace RESEARCH SUPPORT SPECIALIST, RESEARCH SUPPORT SPECIALIST-C) Obesity Essential (primary) hypertension Atherosclerotic heart disease of [place] coronary artery without angina pectoris Hyperlipidemia GERD [...] Oxygen Delivery Method Room Air Room Air [facility] <PEDRITO Delacruz - Last Filed: 06/18/24 21:58> [facility] Narrative Medical decision making narrative: 78-year-old [...] 71.1 H Lymph % (Auto) 18.1 L [place] % (Auto) 9.1 Eos % (Auto) 1.0 Baso % (Auto) 0.3 Absolute Neuts (auto) 5.2 Absolute Lymphs (auto) 1.33 Nucleated RBC % 0 Sodium 139 Potassium 4.5 Chloride 102 Carbon Dioxide 27.6 Anion Gap 9 BUN 27 H Creatinine 0.70 Estim Creat Clear Calc 59.54 Est GFR (MDRD) Non-Af 88 BUN/Creatinine Ratio 38.3 H Glucose 114 H Calcium 10.4 <Dr. Jay Hari MD - Last Filed: 06/18/24 21:59> [facility] MDM Narrative Medical decision making narrative: [...] 71.1 H Lymph % (Auto) 18.1 L [place] % (Auto) 9.1 Eos % (Auto) 1.0 [...] - Activity Restrictions/Additional Instructions: Follow-up with your digital ad trafficker to address your low blood pressure. Keep a daily log. Ice and take Tylenol as needed. If symptoms worsen come back to theER. Print Language: [place]se Disposition Disposition: Home, Self Care What to do if you have Problems For any increased pain, shortness of breath, bleeding, nausea or vomiting, chestpain, or any unexpected problems, contact your Primary Care Provider. Call [facility] ([phone]) or report to the closest Emergency Room. Call 911 if necessary. 06/18/242157 <Electronically signed by Jennifer MAJOR> Cosigner Signature (if applicable): 06/18/242158 <Electronically signed by Jay Hair MD> CC: Dr. Lilly Fletcher MD ~ Signed [facility] Work Phone: Consult note Author Ladonna Duval [facility] Note Date/Time October 26, 2024 3: 56pm [facility] Medical Records Department [address] [place] [address] Counseling Note - Pharmacy 10/26/24 1505 MR#: [id number] Acct: [id number] Name: AYAN CARRILLO Rep #:[id number] : 1945 79 From: Ladonna Duval PCP: Dr. Brayan Thompson MD Status :ADM DENISE Y Location: [place] [address] Pharmacy [place] Med Reconciliation Pharmacy Service has performed discharge [...] signed by Ladonna Duval> Date _ Ladonna Henryigner Signature (if applicable): Date CC: ~ Signed [facility] Work Phone: Discharge summary [facility] Note Date/Time August 02, 2024 6:45a m [facility] Medical Records Department [address] [facility] [place] [address] Emergency Department Summary 08/02/24 MR#: [id number] Acct: [id number] Name: AYAN CARRILLO Rep #:[id number] : 1945 79 From: Jaylen Solomon PCP: Dr. Lilly Fletcher MD Status:REG ER Location: ED HPI History of Present Illness Chief Complaint: Weakness [facility] Medical History (Updated 08/02/24 @ 06:[address] Jaylen Jack, DO) Myocardial infarction Obesity Essential (primary) hypertension Atherosclerotic heart disease of [place] coronary artery without angina pectoris Hyperlipidemia GERD [...] Method Room Air Room Air Room Air [facility] MDM Narrative Medical decision making narrative: HISTORY [...] reviewed, Vital signs reviewed Constitutional: please see [facility] HENT: MMM Eyes: Pupils equal round [...] History obtained from others: Family Consults: none [facility] Narrative: Patient was initially hemodynamically stable, [...] Discharge home This note was generated with SHADOW dictation software. It may contain incorrectwords, spelling, [...] 72.1 H Lymph % (Auto) 16.3 L [place] % (Auto) 9.1 Eos % (Auto) 1.5 [...] Sl. Cloudy Urine pH 6.0 Ur Specific [place] 1.020 Urine Protein 30 H Urine Glucose [...] evidence for acute brain abnormality. Reading Location: [place] [address] Chest X-Ray 08/02/24 04:55 IMPRESSION: Mild bilateral basilar atelectatic pulmonary changes. Reading Location: [place] [address] Discharge Plan Triage Chief Complaint: Weakness ED [...] an ultrasound of the heart(echocardiogram). Print Language: [place]se What to do if you have Problems For any increased pain, shortness of breath, bleeding, nausea or vomiting, chestpain, or any unexpected problems, contact your Primary Care Provider. Call [facility] ([phone]) or report to the closest Emergency Room. Call 911 if necessary. 08/02/24 5866 <Electronically signed by Jaylen Jack DO> Cosigner Signature (if applicable): CC: Dr. Lilly Fletcher MD ~ Signed [facility] Work Phone: Discharge summary Author Seth Flores [facility] Note Date/Time October 26, 2024 2: 20pm [facility] Medical Records Department [address] [place] [address] Instructions for Home/Discharge Instructions 10/26/24 1416 MR#: [id number] Acct: [id number] Name: AYAN CARRILLO Rep #:[id number] : 1945 79 From: Seth draper MD PCP: Dr. Brayan Thompson MD Status :ADM DENISE Discharge Instructions DC O2, CPAP, BIPAP needs [...] MD; Dr. Aranza Little MD ~ Signed [facility] Work Phone: Evaluation note* Diagnosis Onset Date Resolution Status Atherosclerotic heart diseas e of [place] coronary artery without angina pectoris chronic Essential (primary) hypertension chronic Hyperlipidemia chronic [facility] Work Phone: evaluation noteNo assessment information available [facility] Work Phone: evaluation note* Diagnosis Onset Date Resolution Status ANTHONY (dyspnea on exertion) ac erica Palpitations acute Atherosclerotic heart diseas e of [place] coronary artery without angina pectoris chronic Essential (primary) hypertension chronic Hyperlipidemia chronic [facility] Work Phone: Evaluation note* Diagnosis Onset Date Resolution Status Atherosclerotic heart diseas e of [place] coronary artery without angina pectoris chronic Essential (primary) hypertension chronic Hyperlipidemia chronic Cystitis acute [facility] Work Phone: Evaluation note* Diagnosis Onset Date Resolution Status Admit Date Dizziness acute August 15 3:23pm ANTHONY (dyspnea on exertion) acute August 15, 2024 3:23pm Atherosclerotic heart diseas e of [place] coronary artery without angina pectoris chronic August 15, 2024 3:23pm Essential (primary) hypertension chr onic August 15, 2024 3:23pm Hyperlipidemia chronic August 15, 2024 3:23pm [facility] Work Phone: History and physical note Author Reynaldo Nguyen [facility] Note Date/Time November 27, 2024 6:39am [facility] Medical Records Department [address] [place] [address] H&P Exam - Hospitalist 11/26/242013 MR#: [id number] Acct: [id number] Name: AYAN CARRILLO Rep #:[id number] : 1945 79 From: Reynaldo Dickey DO PCP: Dr. Brayan Thompson MD Status :ADM DENISE Location: [facility] [id number] HPI - General General Date of Admission: 11/26/24 Date of Service: 11/26/24 Chief Complaint: Generalized Weakness, Fall and Head Injury. HPI Narrative AYAN CARRILLO, is a 79 F with a past medical history of essential hypertension; on carvedilol twice daily, hyperlipidemia; on atorvastatin, hypothyroidism; on levothyroxine, morbid (class III) obesity; with BMI 41.3 this admission, CAD; s/p UT, PAF; on diltiazem and apixaban twice daily, GERD; on omeprazole and OA who presents to [facility] ER complaining of generalized weakness with fall [...] states she was recently seen by her digital ad trafficker who felt her carvedilol dose was too [...] expected to be less than 2 midnights. [facility] Medical History (Updated 11/27/24 @ 00:[address] Stephanie Kincaid, DO) Morbid obesity with BMI of 40.0-44.9, adult Hypothyroidism GERD (gastroesophageal reflux disease) GI bleed Atrial fibrillation Hypertension Myocardial infarction Obesity Essential (primary) hypertension Atherosclerotic heart disease of [place] coronary artery without angina pectoris Hyperlipidemia GERD (gastroesophageal reflux disease) Osteoarthritis Home Medications ?Medication ?Instructions ?Recorded ?Last Taken ?Type aspirin 81 mg chewable tablet 81 mg PO QHS 10/24/ History nitroglycerin 0.4 mg sublingual 0.4 mg [...] 79.7 H, Lymph % (Auto) 9.7 L, [place] %(Auto) 9.2, Eos % (Auto) 0.8, Baso [...] Sl. Cloudy, Urine pH 6.5, Ur Specific [place] 1.015, Urine Protein 15 H, Urine Glucose [...] Chronic/degenerative changes as described above. Reading Location: [facility] Cervical Spine CT 11/26/24 17:01 IMPRESSION: No acute traumatic findings. Chronic/degenerative changes as described above. Reading Location: [facility] Chest X-Ray 11/26/24 17:10 IMPRESSION: No radiographic evidence of an acute cardiopulmonary process Reading Location: [id number] Assessment & Plan Assessment/Plan (1) Frequent falls: [...] under observation status. Give acetaminophen prn for [id number] (level 1-5/10) pain or fever. Give oxycodone [...] levothyroxine and check TSH. 7. CAD; s/p UT - Noted. 8. GERD; on omeprazole - Maintain PPI. 9. OA - We will follow pain regimen and scales outlined in #1. 10. DVT prophylaxis - Patient already on apixaban for #2 which will be reluctantly continued for now. Total time: Approximately (but not less than) 70 minutes. Charges/Coding Visit Charges OBSV E&M: 43464 Observ/hosp same date L2 11/27/24 0639 <Electronically signed by Reynaldo Oliva DO> Cosigner Signature (if applicable): CC: Dr. Brayan Thompson MD; Dr. Reynaldo Oliva DO~ Signed [facility] Work Phone: Hospital Discharge instructions Additional Instructions Your work up today showed no sign of heart attack. I think your chest pain is from GERD or acid reflux. Continue your home medication and I prescribed Carafate to take before each meal and at bedtime. Please follow-up with your primary care doctor.[facility] Work Phone: Hospital Discharge instructions Additional Instructions Follow-up with your digital ad trafficker to address your low blood pressure. Keep a daily log. Ice and take Tylenol as needed. If symptoms worsen come back to the ER.[facility] Work Phone: Hospital Discharge instructions Additional Instructions [...] about repeating an ultrasound of the heart (echocardiogram).[facility] Work Phone: Progress note Author Paul Lauren [facility] Note Date/Time November 27, 2024 11:52am [facility] Medical Records Department [address] [place] [address] Progress Note - Hospitalist 11/27/24 0847 MR#: [id number] Acct: [id number] Name: AYAN CARRILLO Kush Rep #:[id number] : 1945 79 From: Paul Ngo PCP: Dr. Brayan Thompson MD Status :ADM DENISE Location: [place] [address] Reason for Visit Chief Complaint: Generalized Weakness, [...] 79.7 H, Lymph % (Auto) 9.7 L, [place] %(Auto) 9.2, Eos % (Auto) 0.8, Baso [...] Sl. Cloudy, Urine pH 6.5, Ur Specific [place] 1.015, Urine Protein 15 H, Urine Glucose [...] 70.8 H, Lymph % (Auto) 14.1 L, [place] % (Auto) 13.4 H, Eos % (Auto) [...] Chronic/degenerative changes as described above. Reading Location: [facility] Cervical Spine CT 11/26/24 17:01 IMPRESSION: No acute traumatic findings. Chronic/degenerative changes as described above. Reading Location: [facility] Chest X-Ray 11/26/24 17:10 IMPRESSION: No radiographic evidence of an acute cardiopulmonary process Reading Location: [id number] Rhythm Strip Rhythm Strip: Sinus Rhythm Rate: [...] T4 after 6 weeks. 7. CAD; s/p UT -on baby aspirin. If anemia will be [...] 79.7 H, Lymph % (Auto) 9.7 L, [place] %(Auto) 9.2, Eos % (Auto) 0.8, Baso [...] Sl. Cloudy, Urine pH 6.5, Ur Specific [place] 1.015, Urine Protein 15 H, Urine Glucose [...] 70.8 H, Lymph % (Auto) 14.1 L, [place] % (Auto) 13.4 H, Eos % (Auto) [...] Chronic/degenerative changes as described above. Reading Location: [facility] Cervical Spine CT 11/26/24 17:01 IMPRESSION: No acute traumatic findings. Chronic/degenerative changes as described above. Reading Location: [facility] Chest X-Ray 11/26/24 17:10 IMPRESSION: No radiographic evidence of an acute cardiopulmonary process Reading Location: [id number] Charges/Coding Visit Charges Inpatient E&M: 33143 Subs Hosp L2 11/27/24 1140 <Electronically signed [...] Chronic/degenerative changes as described above. Reading Location: [id number] Cervical Spine CT 11/26/24 17:01 IMPRESSION: No acute traumatic findings. Chronic/degenerative changes as described above. Reading Location: [id number] Chest X-Ray 11/26/24 17:10 IMPRESSION: No radiographic evidence of an acute cardiopulmonary process Reading Location: [id number] 11/27/24 1152<Electronically signed by Paul Lauren MD> Cosigner Signature (if applicable): cc: ~* Signed [facility] Work Phone: Progress note Author Paul Lauren [facility] Note Date/Time November 28, 2024 4:57pm [facility] Medical Records Department [address] [place] [address] Progress Note - Hospitalist 11/28/24 1652 MR#: [id number] Acct: [id number] Name: AYAN CARRILLO Rep #:[id number] : 1945 79 From: Paul Ngo PCP: Dr. Brayan Thompson MD Status :ADM DENISE Location: [place] [address] Reason for Visit Chief Complaint: Generalized Weakness, [...] 79.4 H, Lymph % (Auto) 7.3 L, [place] %(Auto) 11.3 H, Eos % (Auto) 1.3, [...] Hypoventilation. Atelectasis left lung base. Reading Location: [id number] Rhythm Strip Rhythm Strip: Sinus Rhythm Rate: [...] T4 after 6 weeks. 7. CAD; s/p UT -on baby aspirin. If anemia will be [...] 79.4 H, Lymph % (Auto) 7.3 L, [place] %(Auto) 11.3 H, Eos % (Auto) 1.3, [...] 79.7 H, Lymph % (Auto) 9.7 L, [place] %(Auto) 9.2, Eos % (Auto) 0.8, Baso [...] Sl. Cloudy, Urine pH 6.5, Ur Specific [place] 1.015, Urine Protein 15 H, Urine Glucose [...] 70.8 H, Lymph % (Auto) 14.1 L, [place] % (Auto) 13.4 H, Eos % (Auto) [...] Chronic/degenerative changes as described above. Reading Location: [facility] Cervical Spine CT 11/26/24 17:01 IMPRESSION: No acute traumatic findings. Chronic/degenerative changes as described above. Reading Location: [id number] Chest X-Ray 11/26/24 17:10 IMPRESSION: No radiographic evidence of an acute cardiopulmonary process Reading Location: [id number] Charges/Coding Visit Charges Inpatient E&M: 77751 Subs Hosp L2 11/28/24 1657 <Electronically signed by Paul Lauren MD> Cosigner Signature (if applicable): CC: ~ Signed [facility] Work Phone: Progress note Author Paul Lauren [facility] Note Date/Time November 29, 2024 4:53pm [facility] Medical Records Department [address] [place] [address] Progress Note - Hospitalist 11/29/24 1641 MR#: [id number] Acct: [id number] Name: AYAN CARRILLO Rep #:[id number] : 1945 79 From: Paul Ngo PCP: Dr. Brayan Thompson MD Status :ADM DENISE Location: [facility] [id number] Reason for Visit Chief Complaint: Generalized Weakness, [...] Data 11/28/24 05:34 11/28/24 05:34 Micro: Microbiology 09/27/25 16:45 Mucosa - Nose SARS-CoV-2, Influenza & [...] T4 after 6 weeks. 7. CAD; s/p UT -on baby aspirin. If anemia will be [...] 70.8 H, Lymph % (Auto) 14.1 L, [place] % (Auto) 13.4 H, Eos % (Auto) [...] Chronic/degenerative changes as described above. Reading Location: [facility] Cervical Spine CT 11/26/24 17:01 IMPRESSION: No acute traumatic findings. Chronic/degenerative changes as described above. Reading Location: [facility] Chest X-Ray 11/26/24 17:10 IMPRESSION: No radiographic evidence of an acute cardiopulmonary process Reading Location: [id number] Charges/Coding Visit Charges Inpatient E&M: 41499 Subs Hosp L2 11/29/24 1648 <Electronically signed by Paul Lauren MD> Cosigner Signature (if applicable): CC: ~ Signed ADDENDUM by Dr. Paul Lauren MD on 11/29/24 at 1653 Addendum Carvedilol is held. 11/29/24 1653<Electronically signed by Paul Lauren MD> Cosigner Signature (if applicable): cc: ~* Signed [facility] Work Phone: Reason for referral (narrative)No reason for referral information availableWMer[facility] Work Phone: Chief Complaint and Reason for Visit Chief Complaint 6 M FU CAD - ANGIOPLASTY 2016 CAD - ANGIOPLASTY 2016 INT LABS Reason for Visit Atherosclerotic hear t disease of [place] coronary artery without angina pectoris Essential (primary) hypertension Hyperlipidemia Chief Complaint chest pain Chief Complaint chest pain 6 M FU PALPITATIONS Reason for Visit ANTHONY (dyspnea on exer tion) Palpitations Atherosclerotic heart disease of [place] coronary artery without angina pectoris Essential (primary) hypertension Hyperlipidemia Chief Complaint chest pain 6 M FU PALPITATIONS ANTHONY Reason for Visit ANTHONY (dyspnea on exer tion) Palpitations Atherosclerotic heart disease of [place] coronary artery without angina pectoris Essential (primary) hypertension Hyperlipidemia Chief Complaint chest pain 6 M FU PALPITATIONS ANTHONY EORDERS Reason for Visit ANTHONY (dyspnea on exer tion) Palpitations Atherosclerotic heart disease of [place] coronary artery without angina pectoris Essential (primary) hypertension Hyperlipidemia Chief Complaint 6 M FU Reason for Visit Atherosclerotic hear t disease of [place] coronary artery without angina pectoris Essential (primary) hypertension Hyperlipidemia Chief Complaint 6 M FU CONCERN FOR UTI Reason for Visit Atherosclerotic hear t disease of [place] coronary artery without angina pectoris Essential (primary) hypertension Hyperlipidemia Cystitis Chief Complaint Admit Date fallJune 18, 2024 8:3 3pm Chief Complaint Admit Date fallJune 18, 2024 8:3 3pm weakness August 02, 2024 3:41a m Chief Complaint Admit Date fallJune 18, 2024 8:3 3pm weakness August 02, 2024 3:41a m 6 M FU August 15, 2024 3:23 pm Reason for Visit Admit Date Dizziness August 15, 2024 3:23 pm ANTHONY (dyspnea on exertion) August 15 3:23pm Atherosclerotic heart diseas e of [place] coronary artery without angina pectoris August 15, [...] 15 3:23pm Atherosclerotic heart diseas e of [place] coronary artery without angina pectoris August 15, 2024 3:23pm Essential (primary) hypertension August 152024 3:23pm Hyperlipidemia August 15, 2024 3:23 pm Dizziness September 05, 2024 3:54p m ANTHONY (dyspnea on exertion) September 05, 2024 3:54pm Atherosclerotic heart diseas e of [place] coronary artery without angina pectoris September 05, [...] 15 3:23pm Atherosclerotic heart diseas e of [place] coronary artery without angina pectoris August 15, 2024 3:23pm Essential (primary) hypertension August 152024 3:23pm Hyperlipidemia August 15, 2024 3:23 pm Dizziness September 05, 2024 3:54p m ANTHONY (dyspnea on exertion) September 05, 2024 3:54pm Atherosclerotic heart diseas e of [place] coronary artery without angina pectoris September 05, 2024 3:54pm Essential (primary) hypertension August 3:54pm Hyperlipidemia September 05, 2024 3:54p m Chest pain October 25, 2024 5: 18pm Chief Complaint Admit Date weakness August 02, 2024 3:41a m 6 M FU August 15, 2024 3:23 pm palpitations, dizziness August 29, 2024 7:15am DAY MONITOR August 29, 2024 1:47 pm [...] 15 3:23pm Atherosclerotic heart diseas e of [place] coronary artery without angina pectoris August 15, 2024 3:23pm Essential (primary) hypertension August 152024 3:23pm Hyperlipidemia August 15, 2024 3:23 pm Dizziness September 05, 2024 3:54p m ANTHONY (dyspnea on exertion) September 05, 2024 3:54pm Atherosclerotic heart diseas e of [place] coronary artery without angina pectoris September 05, 2024 3:54pm Essential (primary) hypertension Dorinda 7t h, 2025 3:54pm Hyperlipidemia September 05, 2024 3:54p m [...] August 03, 2020 1 :39pm Power of Bunch Maker Hand No August 03, 2020 1:39pm Advance Directive Response Recorded Date/ Time Advance Directives Yes October 25, 2015 5:48pm Living Will Yes October 12 2:43pm Power of Bunch Maker Hand Yes October 12, 2:43pm Name of Medical Power of Bunch Maker Hand daughter October 12, 2021 2:43pm Advance Directive Response Recorded Date/ Time Name of Medical Power of Bunch Maker Hand daughter October 12, 2021 2:43pm Advance Directives Yes October 25, 2015 5:48pm Living Will Yes October 12 2:43pm Power of Bunch Maker Hand Yes October 12 022 2:43pm Advance Directive Response Recorded Date/ Time Name of Medical Power of Bunch Maker Hand daughter October 12, 2021 1:43pm Advance Directives Yes October 25, 2015 4:48pm Living Will Yes October 12 2 1:43pm Power of Bunch Maker Hand Yes October 12 022 1:43pm Advance Directive Response Recorded Date/ Time Advance Directives Yes October 25, 2015 4:48pm Living Will Yes October 12 1:43pm Power of Bunch Maker Hand Yes October 12 1:43pm Advance Directive Response Recorded Date/ Time Living Will Yes June 18, 2024 8:38pm Do you have a Healthcare Power of Bunch Maker Hand? Yes June 18, 2024 8:38pm Name of Medical Power of Bunch Maker Hand Cassandra June 18, 2024 8:38pm Advance Directives Yes October 25, 2015 5:48pm Advance Directive Response Recorded Date/ Time Living Will Yes June 18, 2024 8:38pm Do you have a Healthcare Power of Bunch Maker Hand? Yes June 18, 2024 8:38pm Name of Medical Power of Bunch Maker Hand Cassandra June 18, 2024 8:38pm Do you have a Healthcare Power of Bunch Maker Hand? Yes August 02, 2024 3:44am Advance Directives Yes October 25, 2015 5:48pm Advance Directive Response Recorded Date/ Time Living Will No July 15, 2023 9 :56pm Do you have a Healthcare Power of Bunch Maker Hand? No July 15, 2023 9:56pm Living Will Yes June 18, 2024 8:38pm Do you have a Healthcare Power of Bunch Maker Hand? Yes June 18, 2024 8:38pm Name of Medical Power of Bunch Maker Hand Cassandra June 18, 2024 8:38pm Do you have a Healthcare Power of Bunch Maker Hand? Yes August 02, 2024 3:44am Advance Directives Yes October 25, 2015 5:48pm Advance Directive Response Recorded Date/ Time Living Will No July 15, 2023 9 :56pm Do you have a Healthcare Power of Bunch Maker Hand? No July 15, 2023 9:56pm Living Will Yes June 18, 2024 8:38pm Do you have a Healthcare Power of Bunch Maker Hand? Yes June 18, 2024 8:38pm Name of Medical Power of Bunch Maker Hand Cassandra June 18, 2024 8:38pm Do you have a Healthcare Power of Bunch Maker Hand? Yes August 02, 2024 3:44am Do you have a Healthcare Power of Bunch Maker Hand? No September 09, 2024 8:09pm Advance Directives Yes October 25, 2015 5:48pm Advance Directive Response Recorded Date/ Time Living Will No July 15, 2023 9 :56pm Do you have a Healthcare Power of Bunch Maker Hand? No July 15, 2023 9:56pm Do you have a Healthcare Power of Bunch Maker Hand? No October 21, 2024 9:40am Do you have a Healthcare Power of Bunch Maker Hand? Yes August 02, 2024 3:44am Do you have a Healthcare Power of Bunch Maker Hand? No September 09, 2024 8:09pm Advance Directives Yes October 25, 2015 5:48pm Advance Directive Response Recorded Date/ Time Living Will No July 15, 2023 9 :56pm Do you have a Healthcare Power of Bunch Maker Hand? No July 15, 2023 9:56pm Do you have a Healthcare Power of Bunch Maker Hand? No October 21, 2024 9:40am Do you have a Healthcare Power of Bunch Maker Hand? No October 25, 2024 12:05pm Do you have a Healthcare Power of Bunch Maker Hand? Yes August 02, 2024 3:44am Do you have a Healthcare Power of Bunch Maker Hand? No September 09, 2024 8:09pm Advance Directives Yes October 25, 2015 5:48pm Advance Directive Response Recorded Date/ Time Living Will No July 15, 2023 9 :56pm Do you have a Healthcare Power of Bunch Maker Hand? No July 15, 2023 9:56pm Do you have a Healthcare Power of Bunch Maker Hand? No October 21, 2024 9:40am Do you have a Healthcare Power of Bunch Maker Hand? No October 25, 2024 5:43pm Do you have a Healthcare Power of Bunch Maker Hand? Yes August 02, 2024 3:44am Do you have a Healthcare Power of Bunch Maker Hand? No September 09, 2024 8:09pm Advance Directives Yes October 25, 2015 5:48pm Advance Directive Response Recorded Date/ Time Living Will No July 15, 2023 9 :56pm Do you have a Healthcare Power of Bunch Maker Hand? No July 15, 2023 9:56pm Do you have a Healthcare Power of Bunch Maker Hand? No October 21, 2024 9:40am Do you have a Healthcare Power of Bunch Maker Hand? No October 25, 2024 5:43pm Do you have a Healthcare Power of Bunch Maker Hand? Yes November 26, 2024 9:47pm Do you have a Healthcare Power of Bunch Maker Hand? Yes August 02, 2024 3:44am Do you have a Healthcare Power of Bunch Maker Hand? No September 09, 2024 8:09pm Advance Directives Yes October 25, 2015 5:48pm Advance Directive Response Recorded Date/ Time Living Will No July 15, 2023 9 :56pm Do you have a Healthcare Power of Bunch Maker Hand? No July 15, 2023 9:56pm Do you have a Healthcare Power of Bunch Maker Hand? No October 21, 2024 9:40am Do you have a Healthcare Power of Bunch Maker Hand? No October 25, 2024 5:43pm Do you have a Healthcare Power of Bunch Maker Hand? Yes November 26, 2024 9:47pm Do you have a Healthcare Power of Bunch Maker Hand? No September 09, 2024 8:09pm Advance Directives [...] Provider, Referrin g Provider Active Ginger Grace RESEARCH SUPPORT SPECIALIST, RESEARCH SUPPORT SPECIALIST-C Attending Provider Active Team Status: Inactive Member Role Status Dates Dr. Lilly Fletcher MD Primary Care Provider Active Ginger Grace RESEARCH SUPPORT SPECIALIST, RESEARCH SUPPORT SPECIALIST-C Attending Provider Active Team Status: Inactive Member [...] 2024 End: August 15, 2024 Kale Ansari RESEARCH SUPPORT SPECIALIST, RESEARCH SUPPORT SPECIALIST-C Attending Provider Active S tart: August 15, [...] 2024 End: August 15, 2024 Kale Ansari NP, RESEARCH SUPPORT SPECIALIST-C Attending Provider Active S tart: August 15, 2024 End: August 15, 2024 Team Status: Inactive Member Role/Relationship Status Dates Dr. Lilly Fletcher MD Primary Care Provider Active Start: September 05, 2024 End: September 05, 2024 Dr. Lilly Fletcher MD Referring Provider Active Start: September 05, 2024 End: September 05, 2024 Kale Ansari RESEARCH SUPPORT SPECIALIST, RESEARCH SUPPORT SPECIALIST-C Attending Provider Active S tart: September 05, [...] Active Start: August 29, 2024 Kale Ansari RESEARCH SUPPORT SPECIALIST, RESEARCH SUPPORT SPECIALIST-C Attending Provider Active S tart: August 29, 2024 Kale Ansari RESEARCH SUPPORT SPECIALIST, RESEARCH SUPPORT SPECIALIST-C Referring Provider Active S tart: August 29, 2024 Team Status: Inactive Member Role/Relationship Status Dates Dr. Lilly Fletcher MD Primary Care Provider Active Start: September 05, 2024 End: September 05, 2024 Dr. Lilly Fletcher MD Referring Provider Active Start: September 05, 2024 End: September 05, 2024 Kale Ansari RESEARCH SUPPORT SPECIALIST, RESEARCH SUPPORT SPECIALIST-C Attending Provider Active S tart: September 05, [...] 2024 End: October 01, 2024 Kale Ansari RESEARCH SUPPORT SPECIALIST, RESEARCH SUPPORT SPECIALIST-C Attending Provider Active S tart: October 01, 2024 End: October 01, 2024 Kale Ansari RESEARCH SUPPORT SPECIALIST, RESEARCH SUPPORT SPECIALIST-C Referring Provider Active S tart: October 01, 2024 End: October 01, 2024 Team Status: Inactive Member Role/Relationship Status Dates No Primary Care Physician Primary Care Provider Active Start: October 14, 2024 End: October 14, 2024 No Primary Care Physician Referring Provider Active Start: October 14, 2024 End: October 14, 2024 Ginger Grace RESEARCH SUPPORT SPECIALIST, RESEARCH SUPPORT SPECIALIST-C Attending Provider Active Start: October 14, 2024 [...] 2024 End: August 15, 2024 Kale Ansari RESEARCH SUPPORT SPECIALIST, RESEARCH SUPPORT SPECIALIST-C Attending Provider Active S tart: August 15, 2024 End: August 15, 2024 Team Status: Active Member Role/Relationship Status Dates Dr. Lilly Fletcher MD Primary Care Provider Active Start: August 29, 2024 Kale Ansari RESEARCH SUPPORT SPECIALIST, RESEARCH SUPPORT SPECIALIST-C Attending Provider Active S tart: August 29, 2024 Kale Ansari RESEARCH SUPPORT SPECIALIST, RESEARCH SUPPORT SPECIALIST-C Referring Provider Active S tart: August 29, [...] 2024 End: October 01, 2024 Kale Ansari RESEARCH SUPPORT SPECIALIST, RESEARCH SUPPORT SPECIALIST-C Attending Provider Active S tart: October 01, 2024 End: October 01, 2024 Kale Ansari RESEARCH SUPPORT SPECIALIST, RESEARCH SUPPORT SPECIALIST-C Referring Provider Active S tart: October 01, 2024 End: October 01, 2024 Team Status: Inactive Member Role/Relationship Status Dates No Primary Care Physician Primary Care Provider Active Start: October 14, 2024 End: October 14, 2024 No Primary Care Physician Referring Provider Active Start: October 14, 2024 End: October 14, 2024 Ginger Grace RESEARCH SUPPORT SPECIALIST, RESEARCH SUPPORT SPECIALIST-C Attending Provider Active Start: October 14, 2024 [...] 2024 End: August 15, 2024 Kale Ansari RESEARCH SUPPORT SPECIALIST, RESEARCH SUPPORT SPECIALIST-C Attending physician Active Start: August 15, 2024 End: August 15, 2024 Team Status: Active Member Role/Relationship Status Dates Dr. Lilly Fletcher MD Primary care physician Active Start: August 29, 2024 Kale Ansari RESEARCH SUPPORT SPECIALIST, RESEARCH SUPPORT SPECIALIST-C Attending physician Active Start: August 29, 2024 Kale Ansari RESEARCH SUPPORT SPECIALIST, RESEARCH SUPPORT SPECIALIST-C Referring Provider Active S tart: August 29, 2024 Team Status: Active Member Role/Relationship Status Dates Dr. Lilly Fletcher MD Primary care physician Active Start: August 29, 2024 Dr. Elie Davis MD Attending physician Active Start: August 29, 2024 Kale Ansari RESEARCH SUPPORT SPECIALIST, RESEARCH SUPPORT SPECIALIST-C Referring Provider Active S tart: August 29, 2024 Team Status: Inactive Member Role/Relationship Status Dates Dr. Lilly Fletcher MD Primary care physician Active Start: September 05, 2024 End: September 05, 2024 Dr. Lilly Fletcher MD Referring Provider Active Start: September 05, 2024 End: September 05, 2024 Kale Ansari RESEARCH SUPPORT SPECIALIST, RESEARCH SUPPORT SPECIALIST-C Attending physician Active Start: September 05, 2024 [...] 2024 End: October 01, 2024 Kale Ansari RESEARCH SUPPORT SPECIALIST, RESEARCH SUPPORT SPECIALIST-C Attending physician Active Start: October 01, 2024 End: October 01, 2024 Kale Ansari RESEARCH SUPPORT SPECIALIST, RESEARCH SUPPORT SPECIALIST-C Referring Provider Active S tart: October 01, 2024 End: October 01, 2024 Team Status: Inactive Member Role/Relationship Status Dates No Primary Care Physician Primary care physician Activ e Start: October 14, 2024 End: October 14, 2024 No Primary Care Physician Referring Provider Active Start: October 14, 2024 End: October 14, 2024 Ginger Grace RESEARCH SUPPORT SPECIALIST, RESEARCH SUPPORT SPECIALIST-C Attending physician Active Start: October 14, 2024 End: October 14, 2024 Team Status: Inactive Member Role/Relationship Status Dates No Primary Care Physician Primary care physician Activ e Start: October 21, 2024 End: October 21, 2024 Dr. Donovan Pierson , Attending physician Active Start: October 21, 2024 End: October 21, 2024 Dr. Donovan Pierson , Emergency Departm ent Physician Active Start: October [...] Member Role/Relationship Status Dates Dr. Jaylen Jack , DO Emergency Departm ent Physician Active [...] Member Role/Relationship Status Dates Dr. Jaylen Jack , DO Emergency Departm ent Physician Active [...] Start: November 26, 2024 Dr. Reynaldo Oliva DO Admitting physician Active Start: November 26, [...] 2024 End: August 15, 2024 Kale Ansari RESEARCH SUPPORT SPECIALIST, RESEARCH SUPPORT SPECIALIST-C Attending physician Active Start: August 15, 2024 End: August 15, 2024 Team Status: Active Member Role/Relationship Status Dates Dr. Lilly Fletcher MD Primary care physician Active Start: August 29, 2024 Kale Ansari RESEARCH SUPPORT SPECIALIST, RESEARCH SUPPORT SPECIALIST-C Attending physician Active Start: August 29, 2024 Kale Ansari RESEARCH SUPPORT SPECIALIST, RESEARCH SUPPORT SPECIALIST-C Referring Provider Active S tart: August 29, 2024 Team Status: Active Member Role/Relationship Status Dates Dr. Lilly Fletcher MD Primary care physician Active Start: August 29, 2024 Dr. Elie Davis MD Attending physician Active Start: August 29, 2024 Kale Ansari RESEARCH SUPPORT SPECIALIST, RESEARCH SUPPORT SPECIALIST-C Referring Provider Active S tart: August 29, 2024 Team Status: Inactive Member Role/Relationship Status Dates Dr. Lilly Fletcher MD Primary care physician Active Start: September 05, 2024 End: September 05, 2024 Dr. Lilly Fletcher MD Referring Provider Active Start: September 05, 2024 End: September 05, 2024 Kale Ansari RESEARCH SUPPORT SPECIALIST, RESEARCH SUPPORT SPECIALIST-C Attending physician Active Start: September 05, 2024 [...] 2024 End: October 01, 2024 Kale Ansari RESEARCH SUPPORT SPECIALIST, RESEARCH SUPPORT SPECIALIST-C Attending physician Active Start: October 01, 2024 End: October 01, 2024 Kale Ansari RESEARCH SUPPORT SPECIALIST, RESEARCH SUPPORT SPECIALIST-C Referring Provider Active S tart: October 01, 2024 End: October 01, 2024 Team Status: Inactive Member Role/Relationship Status Dates No Primary Care Physician Primary care physician Activ e Start: October 14, 2024 End: October 14, 2024 No Primary Care Physician Referring Provider Active Start: October 14, 2024 End: October 14, 2024 Ginger Grace RESEARCH SUPPORT SPECIALIST, RESEARCH SUPPORT SPECIALIST-C Attending physician Active Start: October 14, 2024 [...] , DO Nurse Practitioner Active Start: November 30, 2024 Dr. Paul Lauren MD Attending physician Active Start: November 30, 2024 Dr. Paul Lauren MD Nurse Practitioner Active Start: November 30, 2024 INFORMATION SOURCE (unrecogn ized section and content) DATE CREATED AUTHOR 01/11/2025 [facility] DATE CREATED AUTHOR AUTHOR'S ORGANIZ ATION 01/12/2025 [facility] FOR RECORDS PERTAINING [...] BE BASED ON THE PRIMARY CLINICAL RECORDS. [email or web address] provides no warranty or guarantee of the accuracy or completeness of information in this document.
[2025-02-13 07:41] LABS: Hematocrit 33.9 % (37-47); Hemoglobin 10.3 g/dL (12.0-15.0); Mean Corp Hgb Conc 30.4 g/dL (32-36); Mean Corpuscular Volume 88.3 fL (81-99); Mean Platelet Vol. 9.8 fl (6.2-12.0); Platelet Count 249 K/mm3 (150-450); RBC Distribution Width CV 15.0 % (11.6-14.6); RBC Distribution Width SD 48.6 fl (35.1-43.9); Red Blood Count 3.84 M/mm3 (4.2-5.4); White Blood Count 6.1 K/mm3 (4.4-11.0)
[2025-02-13 07:59] LABS: Anion Gap 6 (5-15); BUN 9 mg/dL (4-19); BUN/Creat Ratio 21.4 RATIO (10-20); Calcium,Total 9.9 mg/dL (7.6-11.0); Carbon Dioxide 31.1 mmol/L (21.0-32.0); Chloride 101 mmol/L (98-108); Glucose 105 mg/dL (70-99); Potassium 3.7 mmol/L (3.3-5.1); Pro- Brain NATRIURETIC PEPTIDE 1064 pg/mL (<=1800)
== END ==
LOC: OLS.ACH 05:00
PROVIDERS: PCP Family Medicine; Visit Provider Internal Medicine
DX: R06.02 Shortness of breath (principal); R60.9 Edema, unspecified; R63.5 Abnormal weight gain
CPT/HCPCS: 36415; 80048; 83880; 85027